=== PATIENT | male | born 1970 | race Caucasian/White ===

== ENCOUNTER 2016-07-23 08:59 | Inpatient (IN) | payer OTHER ==
[2016-07-23 09:37] VITALS: BMI 36.0
--- NOTE | 2016-07-23 10:34 | HP ---
COWS - Scale Resting Pulse: 2= [place] 101-120 Sweatin=Flushed/Facial Moisture Restless Observation: 3= Extraneous Movement Pupil Size: 1= Pupils >than Normal Bone or Joint Aches: 0= None Runny Nose/ Eye Tearin= Runny Nose/Eyes GI Upset > 30mins: 0= None Tremor Observation: 2= Slight Tremor Visible Yawning Observation: 1= 1-2x During Session Anxiety or Irritability: 2=Irritable/Anxious Goose Flesh Skin: 0=Smooth Skin COWS Score: 15 Admission ROS BHS - HPI Chief Complaint: "I want to Detox from Heroin and straighten my life out." Pt. is here to detox from Heroin. Allergies/Adverse Reactions: Allergies Allergy/AdvReac Type Severity Reaction Status Date / Time No Known Allergies Allergy Verified 11/16/15 16:57 History of Present Illness: Pt. is a 45 YO male here to Detox from Heroin. Pt. has had several previous detox admissions at [facility]. Exam Limitations: No Limitations - Ebola screening Have you traveled outside of the country in the last 21 days: No Have you had contact with anyone from an Ebola affected area: No Have you been sick,other than usual withdrawal symptoms: No Do you have a fever: No - Review of Systems Constitutional: Diaphoresis, Loss of Appetite, Malaise, Changes in sleep EENT: reports: Tearing, Nose Congestion, Sinus Pressure Respiratory: reports: Shortness of Breath, Wheezing, Productive cough GI: reports: Poor Appetite : reports: No Symptoms Reported Musculoskeletal: reports: No Symptoms Reported Integumentary: reports: No Symptoms Reported Neuro: reports: Tremors Endocrine: reports: No Symptoms Reported Hematology: reports: No Symptoms Reported Psychiatric: reports: Judgement Intact, Mood/Affect Appropiate, Orientated x3, Agitated, Anxious Other Systems: Reviewed and Negative Patient History - Patient Medical History Hx Anemia: No Hx Asthma: Yes (Uses Inhaler;In process of comleting Prednisone Taper at time of admission.) Hx Chronic Obstructive Pulmonary Disease (COPD): No Hx Cancer: No Hx Cardiac Disorders: No Hx Congestive Heart Failure: No Hx Hypertension: No Hx Hypercholesterolemia: No Hx Pacemaker: No HX Cerebrovascular Accident: No Hx Seizures: No Hx Dementia: No Hx Diabetes: No Hx Gastrointestinal Disorders: No Hx Liver Disease: No Hx Genitourinary Disorders: No Hx Sexually Transmitted Disorders: No Hx Renal Disease (ESRD): No Hx Thyroid Disease: No Hx Human Immunodeficiency Virus (HIV): No (Last Tested: approx. 1 year ago: NEGATIVE.) Hx Hepatitis C: No (Never tested.) Hx Depression: No Hx Suicide Attempt: No (DENIES. PATIENT DENIES CURRENT SI / HI.) Hx Bipolar Disorder: No Hx Schizophrenia: No - Patient Surgical History Past Surgical History: No Hx Neurologic Surgery: No Hx Cataract Extraction: No Hx Cardiac Surgery: No Hx Lung Surgery: No Hx Breast Surgery: No Hx Breast Biopsy: No Hx Abdominal Surgery: No Hx Appendectomy: No Hx Cholecystectomy: No Hx Genitourinary Surgery: No Hx Section: No Hx Orthopedic Surgery: No Hx Hysterectomy: No Anesthesia Reaction: No - PPD History Previous Implant?: Yes Documented Results: Negative w/o proof Implanted On Prior [facility] Admission?: Yes Date: 08/13/15 PPD to be Administered?: Yes - Reproductive History Patient is a Female of Child Bearing Age (11 -55 yrs old): No (PATIENT IS MALE.) - Smoking Cessation Smoking history: Current every day smoker Have you smoked in the past 12 months: Yes Aproximately how many cigarettes per day: 10 Cigars Per Day: 0 Hx Chewing Tobacco Use: No Initiated information on smoking cessation: Yes 'Breaking Loose' booklet given: 07/23/16 (GIVEN ON UNIT.) - Substance & Tx. History Hx Substance Use: Yes Substance Use Type: Cocaine, Heroin Hx Substance Use Treatment: Yes (Previous Detox admissions at [facility].) - Substances Abused Heroin Route: Inhalation Frequency: Daily Amount used: 12 - 14 BAGS Age of first use: 40 Date of Last Use: 07/23/16 Cocaine Route: Inhalation Frequency: 3-6 times per week Amount used: $ 200 - $300 Age of first use: 17 Date of Last Use: 07/21/16 Family Disease History - Family Disease History Family Disease History: Diabetes: Mother, CA: Father (.) Admission Physical Exam BHS - Vital Signs Vital Signs: Vital Signs - 24 hr 07/23/16 09:15 Temperature 95.6 F L Pulse Rate 113 H Respiratory 20 Rate Blood Pressure 145/79 - Physical General Appearance: Yes: Nourished, Appropriately Dressed, Mild Distress, Tremorous, Irritable, Sweating, Anxious HEENTM: Yes: Hearing grossly Normal, Normocephalic, Normal Voice, MAGDIEL, Pharynx Normal Respiratory: Yes: Chest Non-Tender, No Respiratory Distress, Wheezing (DuoNeb treatment given X 1 in Admitting area. Pt. reports relief from treatment.) Neck: Yes: No masses,lesions,Nodules, Supple, Trachea in good position Breast: Yes: Breast Exam Deferred Cardiology: Yes: Regular Rhythm, Regular Rate, S1, S2 Abdominal: Yes: Normal Bowel Sounds, Non Tender, Soft, Protuberent Genitourinary: Yes: Within Normal Limits Back: Yes: Normal Inspection Musculoskeletal: Yes: full range of Motion, Gait Steady Extremities: Yes: Normal Range of Motion, Non-Tender, Tremors Neurological: Yes: Fully Oriented, Alert, Normal Mood/Affect, Normal Response Integumentary: Yes: Normal Color, Warm, Moist Lymphatic: Yes: Within Normal Limits - Diagnostic (1) Acute asthma exacerbation Current Visit: Yes Status: Acute Qualifiers: Asthma severity: mild intermittent Qualified Code(s): J45.21 - Mild intermittent asthma with (acute) exacerbation (2) Nicotine dependence Current Visit: Yes Status: Chronic Qualifiers: Nicotine product type: cigarettes Substance use status: uncomplicated Qualified Code(s): F17.210 - Nicotine dependence, cigarettes, uncomplicated (3) Opioid dependence with withdrawal Current Visit: Yes Status: Acute (4) Cocaine dependence, uncomplicated Current Visit: Yes Status: Acute Cleared for Admission [facility] - Detox or Rehab [facility] Level of Care: Medically Managed (ADVISED PATIENT TO FOLLOW-UP WITH SURGICAL ASSISTANT AFTER DISCHARGE FROM DETOX FOR GENERAL MEDICAL ASSESSMENT AND FOR HISTORY OF ASTHMA.) Detox Regimen/Protocol: Methadone [facility] Breath Alcohol Content Breath Alcohol Content: 0 Urine Drug Screen - Results Drug Screen Negative: No Urine Drug Screen Results: LIZBET-Cocaine, OPI-Opiates, OXY-Oxycodone
[2016-07-23] MEDS ORDERED: diphenhydrAMINE HCL 50 MG CAPSULE PO PRN (11:06)
[2016-07-23] MEDS ORDERED: MAGNESIUM HYDROX 2400MG/30ML ORAL SUSPENSION 30 ML CUP PO PRN (11:06)
[2016-07-23] MEDS ORDERED: hydrOXYzine PAMOATE 50 MG CAPSULE (FP) PO PRN (11:06)
[2016-07-23] MEDS ORDERED: MAG HYDROX/AL HYDROX/SIMETH 30 ML UNIT-DOSE CUP PO PRN (11:06)
[2016-07-23] MEDS ORDERED: MENTHOL/PHENOL 1 EACH UD MM PRN (11:06)
[2016-07-23] MEDS ORDERED: P-EPHED 60MG/TRIPROLIDI 2.5MG TABLET PO PRN (11:06)
[2016-07-23] MEDS ORDERED: NICOTINE POLACRILEX 2 MG GUM BUC PRN (11:06)
[2016-07-23] MEDS ORDERED: MAGNESIUM CITRATE 300 ML BOTTLE PO PRN (11:06)
[2016-07-23] MEDS ORDERED: IBUPROFEN 400 MG TABLET (FP) PO PRN (11:06)
[2016-07-23] MEDS ORDERED: guaiFENesin/D-METHORPHAN HB 10 ML UNIT-DOSE CUPS PO PRN (11:06)
[2016-07-23] MEDS ORDERED: LOPERAMIDE HCL 2 MG CAPSULE PO PRN (11:06)
[2016-07-23] MEDS ORDERED: ACETAMINOPHEN 325 MG TABLET (FP) PO PRN (11:06)
[2016-07-23] MEDS ORDERED: METHADONE HCL 10 MG TABLET (FOR DETOX USE ONLY) PO ONE ×2 (13:45→23:00)
[2016-07-23] MEDS: predniSONE 20 MG TABLET (UD) PO SCH (13:51)
[2016-07-23] MEDS ORDERED: ALBUTEROL SO4 6.7 GM HFA INHALER IH PRN (13:53)
[2016-07-23] MEDS ORDERED: ALBUTEROL SO4 2.5/IPRATROPIUM 0.5 INH SOL 3 ML VIAL.NEB. NEB SCH (14:00)
[2016-07-23] MEDS: diazePAM 5 MG TABLET PO PRN ×2 (14:03→22:43)
[2016-07-23] MEDS: NICOTINE 21 MG/24 HOURS TOPICAL PATCH TD SCH (14:05)
--- NOTE | 2016-07-23 17:17 | EKG ---
Test Reason : Blood Pressure : / mmHG Vent. Rate : 094 BPM Atrial Rate : 094 BPM P-R Int : 168 ms QRS Dur : 082 ms QT Int : 354 ms P-R-T Axes : 067 048 054 degrees QTc Int : 442 ms SINUS RHYTHM WITH FUSION COMPLEXES OTHERWISE NORMAL ECG WHEN COMPARED WITH ECG OF 16-NOV-2015 17:25, FUSION COMPLEXES ARE NOW PRESENT Confirmed by LUIS MIGUEL OLIVERA MD ([id number]) on 07/23/2016 5:17:10 PM Referred By: Confirmed By:LUIS MIGUEL OLIVERA MD
[2016-07-23 20:05] LABS: URINE APPEARANCE CLEAR; URINE BILIRUBIN NEGATIVE (NEGATIVE); URINE BLOOD NEGATIVE (NEGATIVE); URINE COLOR YELLOW; URINE GLUCOSE (UA) NEGATIVE (NEGATIVE); URINE KETONE TRACE (NEGATIVE); URINE NITRITE NEGATIVE (NEGATIVE); URINE UROBILINOGEN NEGATIVE E.U./dl (0.2-1.0)
[2016-07-23 20:08] LABS: URINE LEUK ESTERASE TRACE (NEGATIVE); URINE PROTEIN 1+ (NEGATIVE)
[2016-07-23 20:10] LABS: URINE BACTERIA MANY /hpf (NONE SEEN); URINE MUCUS MANY; URINE RBC 34 /hpf (0-3); URINE WBC 53 /hpf (3-5); YEAST RARE
[2016-07-23] MEDS: THIAMINE HCL 100 MG TABLET (FP) PO SCH (22:43)
[2016-07-24] MEDS ORDERED: ALBUTEROL SO4 2.5/IPRATROPIUM 0.5 INH SOL 3 ML VIAL.NEB. NEB PRN (04:57)
[2016-07-24] MEDS ORDERED: predniSONE 20 MG TABLET (UD) PO ONE (08:03)
--- NOTE | 2016-07-24 08:09 | PN ---
BHS COWS - Scale Resting Pulse: 0= [place] 80 or Below Sweatin=Flushed/Facial Moisture Restless Observation: 3= Extraneous Movement Pupil Size: 2= Moderately Dilated Bone or Joint Aches: 2= Severe Diffuse Aches Runny Nose/ Eye Tearin= Runny Nose/Eyes GI Upset > 30mins: 3= Vomiting/Diarrhea Tremor Observation of Outstretched Hands: 2= Slight Tremor Visible Yawning Observation: 1= 1-2x During Session Anxiety or Irritability: 2=Irritable/Anxious Goose Flesh Skin: 0=Smooth Skin COWS Score: 19 BHS Progress Note (SOAP) Subjective: alert,irritable,anxious,interrupted sleep,tremor,pain in the body and back, expiratiory wheezing Objective: 07/24/16 08:06 Vital Signs Temperature 98.1 F 07/23/16 21:51 Pulse Rate 98 H 07/23/16 21:51 Respiratory Rate 20 07/24/16 03:30 Blood Pressure 102/77 07/23/16 21:51 O2 Sat by Pulse Oximetry (%) 07/24/16 08:07 ekg nsr noc chest pain sob acute exacerbation of asthma Assessment: 07/24/16 08:08 duoneb nebulizer,prednisone 40 mg po now then daily,continue detox,close monitoring
[2016-07-24] MEDS ORDERED: METHADONE HCL 10 MG TABLET (FOR DETOX USE ONLY) PO ONE (10:00)
[2016-07-24] MEDS: NICOTINE 21 MG/24 HOURS TOPICAL PATCH TD SCH (10:06)
[2016-07-24] MEDS: predniSONE 20 MG TABLET (UD) PO SCH (10:07)
[2016-07-24] MEDS: diazePAM 5 MG TABLET PO PRN ×2 (10:07→22:50)
[2016-07-24] MEDS: PRENATAL VITAMINS W/ FOLIC ACID TABLET (FP) PO SCH (10:07)
[2016-07-24] MEDS: ALBUTEROL SO4 2.5/IPRATROPIUM 0.5 INH SOL 3 ML VIAL.NEB. NEB PRN (19:23)
[2016-07-24] MEDS: THIAMINE HCL 100 MG TABLET (FP) PO SCH (22:47)
[2016-07-25] MEDS: ALBUTEROL SO4 2.5/IPRATROPIUM 0.5 INH SOL 3 ML VIAL.NEB. NEB PRN (05:00)
[2016-07-25] MEDS ORDERED: METHADONE HCL 5 MG TABLET (FOR DETOX USE ONLY) PO ONE (10:00)
--- NOTE | 2016-07-25 10:03 | PN ---
BHS COWS - Scale Resting Pulse: 2= [place] 101-120 Sweatin= Chills/Flushing Restless Observation: 3= Extraneous Movement Pupil Size: 1= Pupils >than Normal Bone or Joint Aches: 2= Severe Diffuse Aches Runny Nose/ Eye Tearin= Runny Nose/Eyes GI Upset > 30mins: 3= Vomiting/Diarrhea Tremor Observation of Outstretched Hands: 2= Slight Tremor Visible Yawning Observation: 1= 1-2x During Session Anxiety or Irritability: 2=Irritable/Anxious Goose Flesh Skin: 0=Smooth Skin COWS Score: 19 S Progress Note (SOAP) Subjective: ALERT,IRRITABLE,ANXIOUS,INTERRUPTED SLEEP,TREMOR,PAIN IN THE BODY AND BACK Objective: 07/25/16 09:59 Vital Signs Temperature 97 F L 07/25/16 09:46 Pulse Rate 101 H 07/25/16 09:46 Respiratory Rate 16 07/25/16 09:46 Blood Pressure 148/75 07/25/16 09:46 O2 Sat by Pulse Oximetry (%) Laboratory Last Values Urine Color Yellow 07/23/16 19:53 Urine Appearance Clear 07/23/16 19:53 Urine pH 5.0 (5.0-8.0) 07/23/16 19:53 Ur Specific [place] 1.027 (1.001-1.035) 07/23/16 19:53 Urine Protein 1+ (NEGATIVE) H 07/23/16 19:53 Urine Glucose (UA) Negative (NEGATIVE) 07/23/16 19:53 Urine Ketones Trace (NEGATIVE) H 07/23/16 19:53 Urine Blood Negative (NEGATIVE) 07/23/16 19:53 Urine Nitrite Negative (NEGATIVE) 07/23/16 19:53 Urine Bilirubin Negative (NEGATIVE) 07/23/16 19:53 Urine Urobilinogen Negative E.U./dl (0.2-1.0) 07/23/16 19:53 Ur Leukocyte Esterase Trace (NEGATIVE) H 07/23/16 19:53 Urine RBC 34 /hpf (0-3) 07/23/16 19:53 Urine WBC 53 /hpf (3-5) 07/23/16 19:53 Urine Bacteria Many /hpf (NONE SEEN) 07/23/16 19:53 Urine Mucus Many 07/23/16 19:53 Urine Yeast Rare 07/23/16 19:53 07/25/16 10:00 LABS PENDING Assessment: 07/25/16 10:01 WITHDRAWAL SYMPTOM Plan: CONTINUE DETOX,ENCOURAGE ORAL FLUID,REPEAT UA TODAY,CONTINUE DETOX,ALBUTEROL INHALER AND DUONEB NEBULIZER, CONTINUE DETOX
[2016-07-25] MEDS: PRENATAL VITAMINS W/ FOLIC ACID TABLET (FP) PO SCH (10:54)
[2016-07-25] MEDS: diazePAM 5 MG TABLET PO PRN (10:54)
[2016-07-25] MEDS: NICOTINE 21 MG/24 HOURS TOPICAL PATCH TD SCH (10:54)
[2016-07-25] MEDS: predniSONE 20 MG TABLET (UD) PO SCH (13:44)
[2016-07-25 17:40] VITALS: BP 137/90; PULSE 89; TEMP 98.4
[2016-07-25 17:40] LABS: URINE APPEARANCE CLEAR; URINE BILIRUBIN NEGATIVE (NEGATIVE); URINE BLOOD NEGATIVE (NEGATIVE); URINE COLOR YELLOW; URINE GLUCOSE (UA) NEGATIVE (NEGATIVE); URINE KETONE NEGATIVE (NEGATIVE); URINE LEUK ESTERASE NEGATIVE (NEGATIVE); URINE NITRITE NEGATIVE (NEGATIVE); URINE PROTEIN NEGATIVE (NEGATIVE); URINE UROBILINOGEN NEGATIVE E.U./dl (0.2-1.0)
--- NOTE | 2016-07-25 18:52 | DS ---
[id number] Present History: Cocaine Dependence, Opioid Dependence Additional Comments: insists to leave the unit refuses to wait face to face with the provider aftercare as per arranged by the counselor e prescrpition sent Pertinent Past History: asthma - Physical Exam Results Vital Signs: Vital Signs Temperature 98.4 F 07/25/16 17:39 Pulse Rate 89 07/25/16 17:39 Respiratory Rate 18 07/25/16 17:39 Blood Pressure 137/90 07/25/16 17:39 O2 Sat by Pulse Oximetry (%) Pertinent Admission Physical Exam Findings: withdrawal sx Laboratory Last Values Urine Color Yellow 07/25/16 17:26 Urine Appearance Clear 07/25/16 17:26 Urine pH 9.0 (5.0-8.0) H D 07/25/16 17:26 Ur Specific [place] 1.018 (1.001-1.035) 07/25/16 17:26 Urine Protein Negative (NEGATIVE) 07/25/16 17:26 Urine Glucose (UA) Negative (NEGATIVE) 07/25/16 17:26 Urine Ketones Negative (NEGATIVE) 07/25/16 17:26 Urine Blood Negative (NEGATIVE) 07/25/16 17:26 Urine Nitrite Negative (NEGATIVE) 07/25/16 17:26 Urine Bilirubin Negative (NEGATIVE) 07/25/16 17:26 Urine Urobilinogen Negative E.U./dl (0.2-1.0) 07/25/16 17:26 Ur Leukocyte Esterase Negative (NEGATIVE) 07/25/16 17:26 Urine RBC 34 /hpf (0-3) 07/23/16 19:53 Urine WBC 53 /hpf (3-5) 07/23/16 19:53 Urine Bacteria Many /hpf (NONE SEEN) 07/23/16 19:53 Urine Mucus Many 07/23/16 19:53 Urine Yeast Rare 07/23/16 19:53 lab noted - Treatment Hospital Course: Detox Protocol Followed, Responded well - Medication Discharge Medications: Ambulatory Orders Albuterol Sulfate [Proventil HFA Inhaler -] 1 - 2 inh PO QID #1 inhaler Prednisone 5 mg PO AM 07/23/16 - Diagnosis (1) Opioid dependence with withdrawal Status: Acute (2) Nicotine dependence Status: Acute Qualifiers: Nicotine product type: cigarettes Substance use status: in withdrawal Qualified Code(s): F17.213 - Nicotine dependence, cigarettes, with withdrawal (3) Asthma Status: Acute Qualifiers: Asthma severity: mild intermittent Asthma complication type: uncomplicated Qualified Code(s): J45.20 - Mild intermittent asthma, uncomplicated - AMA Did Patient Leave Against Medical Advice: Yes
[2016-07-26] MEDS ORDERED: METHADONE HCL 5 MG TABLET (FOR DETOX USE ONLY) PO ONE (10:00)
[2016-07-27] MEDS ORDERED: METHADONE HCL 10 MG TABLET (FOR DETOX USE ONLY) PO ONE (10:00)
[2016-07-28] MEDS ORDERED: METHADONE HCL 5 MG TABLET (FOR DETOX USE ONLY) PO ONE (06:00)
== END 2016-07-25 18:35 | disposition left against medical advice (07) | DRG 770 ==
LOC: YASAS 08:59 → Y6N 11:37
PROVIDERS: ADMIT Internal Medicine; ATTEND Internal Medicine Addiction Medicine
PROC: HZ2ZZZZ Detoxification Services for Substance Abuse Treatment (ICD-10-PCS; principal; 2016-07-25)
DX: F11.23 Opioid dependence with withdrawal (principal); F17.213 Nicotine dependence, cigarettes, with withdrawal; J45.20 Mild intermittent asthma, uncomplicated
CPT/HCPCS: 81003; 81015; 93005; 93010; 94640

== ENCOUNTER 2016-07-29 01:33 | Emergency (ER) | payer OTHER ==
[2016-07-29] MEDS ORDERED: MAGNESIUM SULF 50% (8.12 MEQ/2 ML-1 GM VIAL) ONE (01:37)
[2016-07-29] MEDS ORDERED: TERBUTALINE SULFATE 1 MG/1 ML VIAL SQ ONE ×3 (01:38→02:45)
[2016-07-29] MEDS ORDERED: MONTELUKAST NA 10 MG TABLET PO ONE (01:39)
[2016-07-29] MEDS ORDERED: MAGNESIUM SULF 50% (8.12 MEQ/2 ML-1 GM VIAL) IVPB ONE (01:39)
[2016-07-29 01:40] VITALS: BP 115/79; PULSE 79; TEMP 98.6; BMI 33.4
[2016-07-29] MEDS ORDERED: MONTELUKAST NA 10 MG TABLET ONE (01:52)
--- NOTE | 2016-07-29 02:32 | PDOC ---
History of Present Illness - General History Source: Patient Exam Limitations: No Limitations - History of Present Illness Initial Comments: 07/29/16 02:33 The patient is a 45 year old male with past medical history of asthma who arrives to the ED via EMS for asthma exacerbation for the past three days. As per patient, he was seen three days ago for shortness of breath and mild chest pain at [facility] in which he was prescribed prednisone. The patient states that since then his symptoms have persisted despite of taking his prescribed prednisone and albuterol pump. In the ambulance, the patient received a breathing treatment and dexamethasone. He denies any recent illness, fever, chills, nausea, vomiting, diarrhea, or urinary symptoms. PCP:Eric Yanez <Claritza Womack - Last Filed: 07/29/16 02:33> <Janet Eastman - Last Filed: 07/29/16 23:37> - General Chief Complaint: Asthma Stated Complaint: ASTHMA Time Seen by Provider: 07/29/16 01:38 Past History <Claritza Womack - Last Filed: 07/29/16 02:33> - Past Medical History Anemia: No Asthma: Yes Cancer: No Cardiac Disorders: No CVA: No COPD: No CHF: No Dementia: No Diabetes: No GI Disorders: No Disorders: No HTN: No Hypercholesterolemia: No Kidney Stones: No Liver Disease: No Suicide Attempt (Hx): No (DENIES. PATIENT DENIES CURRENT SI / HI.) Seizures: No Thyroid Disease: No - Surgical History Abdominal Surgery: No Appendectomy: No Cardiac Surgery: No Cholecystectomy: No Lung Surgery: No Neurologic Surgery: No Orthopedic Surgery: No - Reproductive History Testicular Surgery: No - Immunization History Td Vaccination: Yes Immunization Up to Date: Yes - Psycho/Social/Smoking Cessation Hx Anxiety: No Suicidal Ideation: No Smoking Status: Yes Smoking History: Current every day smoker Years of Tobacco Use: 40 Have you smoked in the past 12 months: Yes Number of Cigarettes Smoked Daily: 10 If you are a former smoker, when did you quit?: 4 MO AGO Cigars Per Day: 0 Information on smoking cessation initiated: No 'Breaking Loose' booklet given: 07/23/16 (GIVEN ON UNIT.) Hx Alcohol Use: No Drug/Substance Use Hx: No Substance Use Type: None Hx Substance Use Treatment: Yes (Previous Detox admissions at [facility].) <Eastman,Janet - Last Filed: 07/29/16 23:37> - Past Medical History Allergies/Adverse Reactions: Allergies Allergy/AdvReac Type Severity Reaction Status Date / Time No Known Allergies Allergy Verified 07/29/16 01:40 Home Medications: Ambulatory Orders Albuterol Sulfate [Proventil HFA Inhaler -] 1 - 2 inh PO QID #1 inhaler Prednisone 5 mg PO AM 07/23/16 Albuterol Sulfate Inhaler - [Ventolin HFA Inhaler -] 1 - 2 inh PO QID #1 inhaler 07/29/16 Montelukast Na [Singulair -] 10 mg PO HS #30 tablet 07/29/16 Review of Systems - Review of Systems Able to Perform ROS?: Yes Comments:: 07/29/16 02:34 GENERAL/CONSTITUTIONAL: No fever or chills. No weakness. HEAD, EYES, EARS, NOSE AND THROAT: No change in vision. No ear pain or discharge. No sore throat. CARDIOVASCULAR: No chest pain or shortness of breath. RESPIRATORY: Present: cough, shortness of breath No wheezing, or hemoptysis. GASTROINTESTINAL: No nausea, vomiting, diarrhea or constipation. GENITOURINARY: No dysuria, frequency, or change in urination. MUSCULOSKELETAL: No joint or muscle swelling or pain. No neck or back pain. SKIN: No rash NEUROLOGIC: No headache, vertigo, loss of consciousness, or change in strength/ sensation. ENDOCRINE: No increased thirst. No abnormal weight change. HEMATOLOGIC/LYMPHATIC: No anemia, easy bleeding, or history of blood clots. ALLERGIC/IMMUNOLOGIC: No hives or skin allergy. All Other Systems: Reviewed and Negative <Claritza Womack - Last Filed: 07/29/16 02:33> *Physical Exam - Vital Signs Last Vital Signs Temp Pulse Resp BP Pulse Ox 98.6 F 79 22 115/79 97 07/29/16 01:35 07/29/16 01:35 07/29/16 01:35 07/29/16 01:35 07/29/16 01:35 - Physical Exam Comments: 07/29/16 02:34 GENERAL: Awake, alert, and fully oriented, in no acute distress HEAD: No signs of trauma EYES: PERRLA, EOMI, sclera anicteric, conjunctiva clear ENT: Auricles normal inspection, hearing grossly normal, nares patent, oropharynx clear without exudates. Moist mucosa NECK: Normal ROM, supple, no lymphadenopathy, JVD, or masses LUNGS: Bilateral wheezing throughout. No crackles HEART: Regular rate and rhythm, normal S1 and S2, no murmurs, rubs or gallops ABDOMEN: Soft, nontender, normoactive bowel sounds. No guarding, no rebound. No masses EXTREMITIES: Normal range of motion, no edema. No clubbing or cyanosis. No cords, erythema, or tenderness NEUROLOGICAL: Cranial nerves II through XII grossly intact. Normal speech, normal gait SKIN: Warm, Dry, normal turgor, no rashes or lesions noted. <Claritza Womack - Last Filed: 07/29/16 02:33> - Vital Signs Last Vital Signs Temp Pulse Resp BP Pulse Ox 98.6 F 79 22 115/79 97 07/29/16 01:35 07/29/16 01:35 07/29/16 01:35 07/29/16 01:35 07/29/16 01:35 <Janet Eastman - Last Filed: 07/29/16 23:37> ED Treatment Course - Medications Given in the ED: ED Medications Discontinued Medications Generic Name Dose Route Start Last Admin Trade Name Freq PRN Reason Stop Dose Admin Magnesium Sulfate 2 gm 07/29/16 01:39 07/29/16 01:49 Magnesium Sulfate IVPB 07/29/16 01:40 2 gm ONCE ONE Administration Montelukast Sodium 10 mg 07/29/16 01:39 07/29/16 01:54 Singulair - PO 07/29/16 01:40 10 mg ONCE ONE Administration Terbutaline Sulfate 0.25 mg 07/29/16 01:38 07/29/16 01:49 Brethine Injection - SQ 07/29/16 01:39 0.25 mg ONCE ONE Administration <Claritza Womack - Last Filed: 07/29/16 02:33> - Medications Given in the ED: ED Medications Discontinued Medications Generic Name Dose Route Start Last Admin Trade Name Freq PRN Reason Stop Dose Admin Magnesium Sulfate 2 gm 07/29/16 01:39 07/29/16 01:49 Magnesium Sulfate IVPB 07/29/16 01:40 2 gm ONCE ONE Administration Montelukast Sodium 10 mg 07/29/16 01:39 07/29/16 01:54 Singulair - PO 07/29/16 01:40 10 mg ONCE ONE Administration Terbutaline Sulfate 0.25 mg 07/29/16 01:38 07/29/16 01:49 Brethine Injection - SQ 07/29/16 01:39 0.25 mg ONCE ONE Administration <Janet Eastman - Last Filed: 07/29/16 23:37> Medical Decision Making - Medical Decision Making 07/29/16 23:37 Pt comes with asthma exacerbation. He was treated with terbutaline and mag in the ER, as the EMS had already given him steroids and duonebs. Pt improved throughout the night. D/C in the AM. <Janet Eastman - Last Filed: 07/29/16 23:37> *DC/Admit/Observation/Transfer - Attestations Scribe Attestion: 07/29/16 02:35 Documentation prepared by Claritza Womack, acting as medical transcription for Janet Eastman MD. <Claritza Womack - Last Filed: 07/29/16 02:33> - Discharge Dispostion Admit: No <Janet Eastman - Last Filed: 07/29/16 23:37> Diagnosis at time of Disposition: Asthma exacerbation - Discharge Dispostion Disposition: HOME Condition at time of disposition: Improved - Prescriptions Prescriptions: Montelukast Na [Singulair -] 10 mg PO HS #30 tablet Albuterol Sulfate Inhaler - [Ventolin HFA Inhaler -] 1 - 2 inh PO QID #1 inhaler - Referrals Referrals: Eric Yanez MD [Primary Care Provider] -
== END 2016-07-29 06:53 | disposition home or self-care (01) ==
LOC: SUPCPDRO 01:33 → JER 01:33
PROC: 3E033GC Introduction of Other Therapeutic Substance into Peripheral Vein, Percutaneous Approach (ICD-10-PCS; principal; 2016-07-29)
PROC: 3E023GC Introduction of Other Therapeutic Substance into Muscle, Percutaneous Approach (ICD-10-PCS; 2016-07-29)
PROC: 3E023GC Introduction of Other Therapeutic Substance into Muscle, Percutaneous Approach (ICD-10-PCS; 2016-07-29)
DX: J45.901 Unspecified asthma with (acute) exacerbation (principal); F17.210 Nicotine dependence, cigarettes, uncomplicated
CPT/HCPCS: 71020-TC; 96372; 96374; 99282-25

== ENCOUNTER 2016-08-08 11:06 | Inpatient (IN) | payer OTHER ==
[2016-08-08 11:12] VITALS: BMI 31.9
--- NOTE | 2016-08-08 11:21 | PDOC ---
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 He typically gets asthma exacerbation after he uses heroin. he states that he last used this morning, then developed SOB shortly after. Denies f/c, productive cough. He has had dry cough 3 days. +Multiple instances of similar symptoms in the past. - Physicial Exam PE: GENERAL: Awake, alert, and fully oriented, in no acute distress HEAD: No signs of trauma EYES: PERRLA, EOMI, sclera anicteric, conjunctiva clear ENT: Auricles normal inspection, hearing grossly normal, nares patent, oropharynx clear without exudates. Moist mucosa NECK: Normal ROM, supple, no lymphadenopathy, JVD, or masses LUNGS: +Moderate tachypnea. Diffuse exp wheezes B/L. Able to speak full sentences. HEART: Regular rate and rhythm, normal S1 and S2, no murmurs, rubs or gallops ABDOMEN: Soft, nontender, normoactive bowel sounds. No guarding, no rebound. No masses EXTREMITIES: Normal range of motion, no edema. No clubbing or cyanosis. No cords, erythema, or tenderness NEUROLOGICAL: Cranial nerves II through XII grossly intact. Normal speech, normal gait SKIN: Warm, Dry, normal turgor, no rashes or lesions noted. - Medical Decision Making Pt with history severe asthma exacerbations following substance use. Will give duonebs, solu-medrol, likely admit.
--- NOTE | 2016-08-08 11:27 | PDOC ---
History of Present Illness - General Chief Complaint: Shortness of Breath Stated Complaint: SOB Time Seen by Provider: 08/08/16 11:16 History Source: Patient Exam Limitations: No Limitations - History of Present Illness Initial Comments: 44 year old male with a significant past medical history of asthma, nicotine addiction, heroin abuse with daily use with multiple detox (last detox completed on 07/25) brought via EMS due to shortness of breath. Patient stated that he used heroin this morning and became short of breath shortly after. He also has cough x 3 days. Denies fever, chills, n/v, chest pain, urinary or bowel symptoms. Past History - Past Medical History Allergies/Adverse Reactions: Allergies Allergy/AdvReac Type Severity Reaction Status Date / Time No Known Allergies Allergy Verified 08/08/16 11:12 Home Medications: Ambulatory Orders Albuterol Sulfate [Proventil HFA Inhaler -] 1 - 2 inh PO QID #1 inhaler Prednisone 5 mg PO AM 07/23/16 Albuterol Sulfate Inhaler - [Ventolin HFA Inhaler -] 1 - 2 inh PO QID #1 inhaler 07/29/16 Montelukast Na [Singulair -] 10 mg PO HS #30 tablet 07/29/16 Anemia: No Asthma: Yes Cancer: No Cardiac Disorders: No CVA: No COPD: No CHF: No Dementia: No Diabetes: No GI Disorders: No Disorders: No HTN: No Hypercholesterolemia: No Kidney Stones: No Liver Disease: No Suicide Attempt (Hx): No (DENIES. PATIENT DENIES CURRENT SI / HI.) Seizures: No Thyroid Disease: No - Surgical History Abdominal Surgery: No Appendectomy: No Cardiac Surgery: No Cholecystectomy: No Lung Surgery: No Neurologic Surgery: No Orthopedic Surgery: No - Reproductive History Testicular Surgery: No - Immunization History Td Vaccination: Yes Immunization Up to Date: Yes - Psycho/Social/Smoking Cessation Hx Anxiety: No Suicidal Ideation: No Smoking Status: Yes Smoking History: Former smoker Years of Tobacco Use: 40 Have you smoked in the past 12 months: Yes Number of Cigarettes Smoked Daily: 10 If you are a former smoker, when did you quit?: 4 MO AGO Cigars Per Day: 0 Information on smoking cessation initiated: No 'Breaking Loose' booklet given: 07/23/16 Hx Alcohol Use: No Drug/Substance Use Hx: No Substance Use Type: None Hx Substance Use Treatment: Yes (Previous Detox admissions at [facility] Respiratory Specific PMHX - Complaint Specific PMHX TB (Tuberculosis): No Review of Systems - Review of Systems Able to Perform ROS?: Yes Is the patient limited Greek proficient: No Constitutional: No: Chills, Fever, Weakness HEENTM: No: Blurred Vision Respiratory: Yes: Cough, Shortness of Breath Cardiac (ROS): No: Chest Pain ABD/GI: No: Abdominal Distended, Nausea, Vomiting : No: Dysuria Neurological: No: Headache, Numbness Psychiatric: Yes: Depression *Physical Exam - Vital Signs Last Vital Signs Temp Pulse Resp BP Pulse Ox 98.4 F 121 H 22 148/78 93 L 08/08/16 11:08 08/08/16 11:08 08/08/16 11:08 08/08/16 11:08 08/08/16 11:08 - Physical Exam General Appearance: Yes: Moderate Distress Respiratory/Chest: positive: Respiratory Distress, Wheezing Cardiovascular: positive: Regular Rhythm, S1, S2, Tachycardia. negative: Murmur ED Treatment Course - LABORATORY CBC & Chemistry Diagram: 08/08/16 11:41 08/08/16 11:41 Medical Decision Making - Medical Decision Making 08/08/16 12:42 Patient's lab work is remarkable for elevated WBC 22 and his clinical presentation is worrisome; he's tachycardic, diaphoretic and c/o abd discomfort. For withdrawl precaution, he should be admitted. Patient also wants detox. He may be transitioned from regular floor to methadone detox during admission. 08/08/16 12:[address] Diaz, will admit the patient to telemetry. *DC/Admit/Observation/Transfer Diagnosis at time of Disposition: Heroin withdrawal Upper respiratory infection Qualifiers: URI type: unspecified URI Qualified Code(s): J06.9 - Acute upper respiratory infection, unspecified - Discharge Dispostion Condition at time of disposition: Stable Admit: Yes - Referrals Referrals: Eric Yanez MD [Primary Care Provider] -
[2016-08-08] MEDS: ALBUTEROL SO4 2.5/IPRATROPIUM 0.5 INH SOL 3 ML VIAL.NEB. NEB SCH ×4 (11:51→12:59)
[2016-08-08] MEDS ORDERED: AZITHROMYCIN IVPB 500 MG in DEXTROSE 5%-WATER - 250 ML IVPB ONE (11:52)
[2016-08-08] MEDS ORDERED: methylPREDNISolone NA SUCC 125 MG/2 ML VIAL IVPB ONE (11:53)
[2016-08-08] MEDS ORDERED: methylPREDNISolone NA SUCC 125 MG/2 ML VIAL ONE (11:54)
[2016-08-08] MEDS ORDERED: ALBUTEROL SO4 2.5/IPRATROPIUM 0.5 INH SOL 3 ML VIAL.NEB. NEB ONE (11:54)
[2016-08-08 12:10] LABS: MCHC 32.5 g/dl (32.0-35.9); MEAN CELL VOLUME 79.8 fl (80-96); PLATELET COUNT 405 K/MM3 (134-434); RDW 14.8 % (11.9-15.9); WHITE BLOOD COUNT 21.9 K/mm3 (4.0-10.0)
[2016-08-08 12:36] LABS: ALBUMIN 3.2 g/dl (3.4-5.0); ANION GAP 12 (8-16); CALCIUM 8.7 mg/dL (8.5-10.1); CO2 24 mmol/L (21-32); COCKROFT - GAULT 158.75; CREATININE 0.8 mg/dL (0.7-1.3); GLUCOSE,RANDOM 111 mg/dL (74-106); SGOT/AST 23 U/L (15-37); SGPT/ALT 33 U/L (12-78)
[2016-08-08 12:38] LABS: ALK PHOS 102 U/L (45-117); BILIRUBIN,TOTAL 0.6 mg/dL (0.2-1.0); TOT PROT 7.1 g/dl (6.4-8.2)
[2016-08-08] MEDS ORDERED: AZITHROMYCIN IVPB 250 ML IVPB ONE (12:54)
[2016-08-08] MEDS ORDERED: CEFTRIAXONE 1 GM in DEXTROSE 5%-WATER - 50 ML IVPB ONE (12:54)
[2016-08-08] MEDS ORDERED: CEFTRIAXONE 50 ML ONE (13:02)
[2016-08-08 13:18] LABS: PLATELET ESTIMATE ADEQUATE (NORMAL)
[2016-08-08 14:00] LABS: TROPONIN I < 0.02 ng/ml (0.00-0.05)
--- NOTE | 2016-08-08 15:17 | CONSULT ---
[id number],MD - History History of Present Illness: 45 y/o man known to me from previous admissions & detoxes came to ED because of severe SOB & Wheezing.Pt. was told on many occasions that heroin will exacerbate asthma. - History Source History Provided By: Patient, Medical Record - Alcohol/Substance Use Hx Alcohol Use: No - Current Drug/Alcohol Use Heroin Route: Inhalation Frequency: Daily Amount used: 3 bags Age of first use: 40 Date of Last Use: 08/08/16 - Past Medical History Pulmonary: Yes: Asthma Psych: Yes: Addictions (heroin) - Past Surgical History Past Surgical History: Yes: None - Significant Medical Findings: Laboratory Tests 08/08/16 08/08/16 08/08/16 11:41 11:41 12:53 WBC 21.9 H D RBC 5.02 Hgb 13.0 D Hct 40.0 MCV 79.8 L MCHC 32.5 RDW 14.8 Plt Count 405 D MPV 8.0 Neutrophils % 84.0 H Lymphocytes % 8.0 Monocytes % 3.0 L Eosinophils % 4.0 Basophils % 1.0 Differential Comment Manual diff done Platelet Estimate Adequate Sodium 135 L Potassium 4.3 Chloride 99 Carbon Dioxide 24 D Anion Gap 12 BUN 15 D Creatinine 0.8 Creat Clearance w eGFR > 60 Random Glucose 111 H Lactic Acid Calcium 8.7 Total Bilirubin 0.6 D AST 23 D ALT 33 D Alkaline Phosphatase 102 D Creatine Kinase 184 D CK-MB (CK-2) 1.691 CK-MB (CK-2) Rel Index Troponin I < 0.02 Total Protein 7.1 Albumin 3.2 L 08/08/16 08/08/16 12:53 12:53 WBC RBC Hgb Hct MCV MCHC RDW Plt Count MPV Neutrophils % Lymphocytes % Monocytes % Eosinophils % Basophils % Differential Comment Platelet Estimate Sodium Potassium Chloride Carbon Dioxide Anion Gap BUN Creatinine Creat Clearance w eGFR Random Glucose Lactic Acid 1.205 Calcium Total Bilirubin AST ALT Alkaline Phosphatase Creatine Kinase CK-MB (CK-2) CK-MB (CK-2) Rel Index Cancelled Troponin I Total Protein Albumin U/Tox is pending COWS - Scale Resting Pulse: 4= PA > 121 Sweatin=Flushed/Facial Moisture Restless Observation: 1= Difficult to Sit Still Pupil Size: 2= Moderately Dilated Bone or Joint Aches: 1= Mild Discomfort Runny Nose/ Eye Tearin= Runny Nose/Eyes GI Upset > 30mins: 2= Nausea/Diarrhea Tremor Observation: 2= Slight Tremor Visible Yawning Observation: 1= 1-2x During Session Anxiety or Irritability: 2=Irritable/Anxious Goose Flesh Skin: 0=Smooth Skin COWS Score: 19 Assessment Plan - Diagnosis (1) Opioid dependence with withdrawal Status: Acute - Medication Detox Regimen/Protocol: Methadone
[2016-08-08 18:07] LABS: URINE MARIJUANA THC NEGATIVE ng/ml (CUTOFF=50)
[2016-08-08] MEDS ORDERED: METHADONE HCL 10 MG TABLET PO ONE (18:30)
[2016-08-08] MEDS: MONTELUKAST NA 10 MG TABLET PO SCH (21:05)
[2016-08-08] MEDS: guaiFENesin/D-METHORPHAN HB 10 ML UNIT-DOSE CUPS PO PRN (21:05)
[2016-08-08] MEDS: DEXTROSE 5%-0.45% SALINE 1,000 ML IV SCH (21:16)
[2016-08-08 22:43] LABS: TROPONIN I < 0.02 ng/ml (0.00-0.05)
[2016-08-08] MEDS: ALBUTEROL SO4 2.5/IPRATROPIUM 0.5 INH SOL 3 ML VIAL.NEB. NEB PRN (23:10)
[2016-08-09] MEDS: methylPREDNISolone NA SUCC 40 MG/1 ML VIAL IVPB SCH ×3 (01:16→18:09)
[2016-08-09] MEDS ORDERED: ONDANSETRON 4 MG/2 ML VIAL IVPB PRN (03:05)
[2016-08-09] MEDS: guaiFENesin/D-METHORPHAN HB 10 ML UNIT-DOSE CUPS PO PRN ×3 (05:22→21:26)
[2016-08-09] MEDS: ALBUTEROL SO4 2.5/IPRATROPIUM 0.5 INH SOL 3 ML VIAL.NEB. NEB PRN ×2 (06:48→23:15)
[2016-08-09] MEDS ORDERED: diazePAM 5 MG TABLET PO PRN (09:37)
[2016-08-09] MEDS ORDERED: CEFTRIAXONE 50 ML IVPB SCH (10:00)
[2016-08-09] MEDS ORDERED: AZITHROMYCIN IVPB 250 MG in DEXTROSE 5%-WATER - 250 ML IVPB SCH (10:00)
[2016-08-09] MEDS ORDERED: METHADONE HCL 10 MG TABLET (FOR DETOX USE ONLY) PO ONE (10:00)
[2016-08-09] MEDS ORDERED: METHADONE HCL 10 MG TABLET ONE (10:14)
[2016-08-09] MEDS: HEPARIN NA (PORCINE) 5,000 UNITS/ML 1ML VIAL SQ SCH ×2 (10:17→21:26)
[2016-08-09] MEDS: DEXTROSE 5%-0.45% SALINE 1,000 ML IV SCH ×2 (10:25→21:27)
--- NOTE | 2016-08-09 15:01 | HP ---
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 He typically gets asthma exacerbation after he uses heroin. he states that he last used this morning, then developed SOB shortly after. Denies f/c, productive cough. He has had dry cough 3 days. +Multiple instances of similar symptoms in the past. - Past Medical History Pulmonary: Yes: Asthma Psych: Yes: Addictions (heroin) - Past Surgical History Past Surgical History: Yes: None - Smoking History Smoking history: Former smoker Have you smoked in the past 12 months: Yes Aproximately how many cigarettes per day: 10 If you are a former smoker, when did you quit?: 4 MO AGO - Alcohol/Substance Use Hx Alcohol Use: No History of Substance Use: reports: Heroin - Social History ADL: Independent Occupation: Unemployed History of Recent Travel: No Home Medications - Allergies Allergies/Adverse Reactions: Allergies Allergy/AdvReac Type Severity Reaction Status Date / Time No Known Allergies Allergy Verified 10/18/16 13:39 - Home Medications Home Medications: Ambulatory Orders Albuterol Sulfate [Proventil HFA Inhaler -] 1 - 2 inh PO QID #1 inhaler Montelukast Na [Singulair -] 10 mg PO HS #30 tablet 07/29/16 Budesonide/Formeterol Fumarate [SYMBICORT 160/4.5mcg -] 1 inh PO BID #1 cannister 08/14/16 Family Disease History - Family Disease History Family History: Unremarkable Family Disease History: Diabetes: Mother, CA: Father (.) Review of Systems - Review of Systems Constitutional: reports: Loss of Appetite, Malaise, Weakness Eyes: reports: No Symptoms HENT: reports: No Symptoms Neck: reports: No Symptoms Cardiovascular: reports: Shortness of Breath Respiratory: reports: Cough, SOB Gastrointestinal: reports: No Symptoms Physical Examination Vital Signs: Vital Signs Temperature 97.6 F 08/09/16 13:50 Pulse Rate 101 H 08/09/16 13:50 Respiratory Rate 22 08/09/16 13:50 Blood Pressure 138/81 08/09/16 10:00 O2 Sat by Pulse Oximetry (%) 96 08/09/16 09:00 Constitutional: Yes: Well Nourished Eyes: Yes: WNL HENT: Yes: WNL Neck: Yes: WNL, Supple Cardiovascular: Yes: WNL, Regular Rate and Rhythm Respiratory: Yes: Rhonchi, Wheezes Gastrointestinal: Yes: WNL, Normal Bowel Sounds, Soft, Abdomen, Obese Musculoskeletal: Yes: WNL Extremities: Yes: WNL Edema: No Neurological: Yes: WNL, Alert, Oriented ...Motor Strength: WNL Problem List - Problems (1) Acute asthma exacerbation Assessment/Plan: cONT iv ANTIBXS/STEROIDS/NEBULIZERSD pULMONARY CONSULT Code(s): J45.901 - UNSPECIFIED ASTHMA WITH (ACUTE) EXACERBATION Qualifiers: Asthma severity: mild intermittent Qualified Code(s): J45.21 - Mild intermittent asthma with (acute) exacerbation (2) Heroin abuse Code(s): F11.10 - OPIOID ABUSE, UNCOMPLICATED (3) Opioid dependence with withdrawal Code(s): 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
--- NOTE | 2016-08-09 16:29 | PN ---
Progress Note (short form) - Note Progress Note: PULMONARY CONSULTATION DICTATED 08/09/16 IMP ASTHMA EXACERBATION LIKELY SECONDARY TO HEROIN INHALATION CHRONIC ASTHMA SUBSTANCE ABUSE SMOKER PLAN TAPER STEROIDS INHALED BRONCHODILATORS O2 D/C ANTIBIOTICS SMOKING CESSATION MONITOR PEAK FLOW DR THOMPSON Problem List - Problems (1) Acute bronchospasm Code(s): J98.01 - ACUTE BRONCHOSPASM (2) Heroin withdrawal Code(s): 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 (3) Leukocytosis Code(s): D72.829 - ELEVATED WHITE BLOOD CELL COUNT, UNSPECIFIED (4) Acute asthma exacerbation Code(s): J45.901 - UNSPECIFIED ASTHMA WITH (ACUTE) EXACERBATION Qualifiers: Asthma severity: mild intermittent Qualified Code(s): J45.21 - Mild intermittent asthma with (acute) exacerbation (5) Asthma Code(s): J45.909 - UNSPECIFIED ASTHMA, UNCOMPLICATED Qualifiers: Asthma severity: mild intermittent Asthma complication type: uncomplicated Qualified Code(s): J45.20 - Mild intermittent asthma, uncomplicated (6) Nicotine dependence Code(s): F17.200 - NICOTINE DEPENDENCE, UNSPECIFIED, UNCOMPLICATED Qualifiers : Nicotine product type: cigarettes Substance use status: in withdrawal Qualified Code(s): F17.213 - Nicotine dependence, cigarettes, with withdrawal (7) Opiate dependence, continuous Code(s): F11.20 - OPIOID DEPENDENCE, UNCOMPLICATED (8) Smoker Code(s): F17.200 - NICOTINE DEPENDENCE, UNSPECIFIED, UNCOMPLICATED
--- NOTE | 2016-08-09 19:41 | CONS ---
DATE OF CONSULTATION: 08/09/2016 PULMONARY CONSULTATION REFERRING PHYSICIAN: Flavia Diaz M.D. HISTORY OF PRESENT ILLNESS: The patient is a 45-year-old white male with a past medical history of asthma, history of smoking, history of heroin abuse, snorts. Admitted to [facility] complaining of increasing shortness of breath, chest congestion, and cough and wheezing. Patient states he used heroin a couple days prior to admission and then he states he started developing increasing shortness of breath, associated wheezing, chest congestion. Denies any fevers, chills, nausea, vomiting, or diaphoresis. He presented to the emergency room for the above. On admission, he was treated with inhaled bronchodilators and steroids, and transferred to the floor for further management. he has a history of tobacco use and history of substance abuse. He snorts heroin frequently. There is no history of occupational exposure to chemicals or fumes. There is no DVT or PE in the past. There is no history of respiratory failure in the past on ventilatory support. PAST MEDICAL HISTORY: Again, includes asthma, substance abuse. SOCIAL HISTORY: Smoker. No occupational exposures. CURRENT MEDICATIONS: Include Solu-Medrol, Zithromax, ceftriaxone, heparin, Robitussin, valium, Singulair, and methadone. PHYSICAL EXAMINATION: General: The patient is a well-developed, well-nourished male, awake, alert, in no acute distress. Vital signs: He is afebrile. Blood pressure 138/81, respiratory rate is 22, O2 saturation is 96% on 2 L. HEENT: Head is normocephalic, atraumatic. Neck: Supple. Heart: Regular. S1, S2. Chest: A few scattered bilateral wheezes. Abdomen: Soft. Bowel sounds positive. Extremities: No cyanosis, edema. LABORATORY: WBC is 21.9, hemoglobin 13, hematocrit 40, platelet count 405,000. BUN is 15, creatinine 0.8. Chest x-ray reveals no acute infiltrates or effusions. IMPRESSION: 1. Dyspnea, chest congestion secondary to asthma exacerbation most probably precipitated by heroin inhalation, 2. Substance abuse. 3. History of tobacco abuse. PLAN: Continue IV steroids inhaled bronchodilators, but discontinue antibiotics as no evidence of infection on chest x-ray. Monitor peak flow. ANGELA THOMPSON M.D. [id number] MTDD
[2016-08-09] MEDS: MONTELUKAST NA 10 MG TABLET PO SCH (21:26)
--- NOTE | 2016-08-09 23:45 | PN ---
Progress Note, Physician History of Present Illness: Pt still w/ productive cough - Current Medication List Current Medications: Active Medications Albuterol/Ipratropium (Duoneb -) 1 amp NEB Q6H PRN PRN Reason: SHORTNESS OF BREATH Last Admin: 08/09/16 06:48 Dose: 1 amp Diazepam (Valium -) 10 mg PO Q4H PRN PRN Reason: WITHDRAWAL(CONT SUBST) Stop: 08/12/16 09:36 Guaifenesin (Robitussin Dm -) 10 ml PO Q4H PRN PRN Reason: COUGH Last Admin: 08/09/16 21:26 Dose: 10 ml Heparin Sodium (Porcine) (Heparin -) 5,000 unit SQ BID VARSHA Last Admin: 08/09/16 21:26 Dose: 5,000 unit Dextrose/Sodium Chloride (D5-1/2ns -) 1,000 mls @ 75 mls/hr IV ASDIR VARSHA Last Admin: 08/09/16 21:27 Dose: 75 mls/hr Methadone HCl (Dolophine -) 10 mg PO ONCE ONE Stop: 08/11/16 10:01 Methadone HCl (Dolophine -) 15 mg PO ONCE ONE Stop: 08/10/16 10:01 Methadone HCl (Dolophine -) 5 mg PO ONCE@0600 ONE Stop: 08/12/16 06:01 Methylprednisolone Sodium Succinate (Solu-Medrol -) 40 mg IVPB Q8H-IV VARSHA Last Admin: 08/09/16 18:09 Dose: 40 mg Montelukast Sodium (Singulair -) 10 mg PO HS VARSHA Last Admin: 08/09/16 21:26 Dose: 10 mg Ondansetron HCl (Zofran Injection) 4 mg IVPB Q6H PRN PRN Reason: NAUSEA - Objective Vital Signs: Vital Signs Temperature 97.6 F 08/09/16 13:50 Pulse Rate 101 H 08/09/16 13:50 Respiratory Rate 22 08/09/16 13:50 Blood Pressure 138/81 08/09/16 10:00 O2 Sat by Pulse Oximetry (%) 95 08/09/16 20:52 Constitutional: Yes: Well Nourished HENT: Yes: WNL Neck: Yes: Supple Cardiovascular: Yes: WNL, Regular Rate and Rhythm Respiratory: Yes: Wheezes Gastrointestinal: Yes: WNL, Normal Bowel Sounds, Soft Problem List - Problems (1) Acute asthma exacerbation Assessment/Plan: Cont IV solumedrol Cont inhalers Code(s): J45.901 - UNSPECIFIED ASTHMA WITH (ACUTE) EXACERBATION Qualifiers: Asthma severity: mild intermittent Qualified Code(s): J45.21 - Mild intermittent asthma with (acute) exacerbation (2) Opioid dependence with withdrawal Assessment/Plan: Pt on methadone Code(s): 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 (3) Heroin abuse Code(s): F11.10 - OPIOID ABUSE, UNCOMPLICATED
[2016-08-10] MEDS: methylPREDNISolone NA SUCC 40 MG/1 ML VIAL IVPB SCH ×3 (01:16→17:06)
[2016-08-10 08:00] LABS: BASOPHIL 0.2 % (0-2.0); MCHC 32.5 g/dl (32.0-35.9); MEAN CELL VOLUME 80.1 fl (80-96); MEAN PLT VOLUME 7.9 fl (7.5-11.1); NEUTROPHILS 92.9 % (42.8-82.8); PLATELET COUNT 414 K/MM3 (134-434); RDW 14.4 % (11.9-15.9); WHITE BLOOD COUNT 20.7 K/mm3 (4.0-10.0)
[2016-08-10 08:43] LABS: ALBUMIN 2.9 g/dl (3.4-5.0); ALK PHOS 93 U/L (45-117); ANION GAP 11 (8-16); BILIRUBIN,TOTAL 0.5 mg/dL (0.2-1.0); CALCIUM 9.1 mg/dL (8.5-10.1); CO2 27 mmol/L (21-32); COCKROFT - GAULT 181.43; CREATININE 0.7 mg/dL (0.7-1.3); GLUCOSE,RANDOM 139 mg/dL (74-106); SGOT/AST 46 U/L (15-37); SGPT/ALT 92 U/L (12-78); TOT PROT 6.5 g/dl (6.4-8.2)
[2016-08-10] MEDS ORDERED: METHADONE HCL 10 MG TABLET ONE (09:18)
[2016-08-10] MEDS: HEPARIN NA (PORCINE) 5,000 UNITS/ML 1ML VIAL SQ SCH ×2 (09:24→21:27)
[2016-08-10] MEDS ORDERED: METHADONE HCL 5 MG TABLET (FOR DETOX USE ONLY) PO ONE (10:00)
--- NOTE | 2016-08-10 10:46 | PN ---
Progress Note (short form) - Note Progress Note: PULMONARY Still with shortness of breath, chest tightness, cough productive of yellow sputum. No fevers or chills. Last Vital Signs Temp Pulse Resp BP Pulse Ox 97.9 F 78 16 120/89 95 08/10/16 06:00 08/10/16 06:00 08/10/16 06:00 08/10/16 06:00 08/09/16 20:52 Gen: mildly tachypneic with exertion Heart: RRR Lung: bilateral rhonchi, wheezes, poor air entry Abd: soft, nontender Ext: no edema CBC, BMP 08/10/16 07:05 08/10/16 07:05 Active Medications Albuterol/Ipratropium (Duoneb -) 1 amp NEB Q6H PRN PRN Reason: SHORTNESS OF BREATH Last Admin: 08/09/16 23:15 Dose: 1 amp Diazepam (Valium -) 10 mg PO Q4H PRN PRN Reason: WITHDRAWAL(CONT SUBST) Stop: 08/12/16 09:36 Guaifenesin (Robitussin Dm -) 10 ml PO Q4H PRN PRN Reason: COUGH Last Admin: 08/09/16 21:26 Dose: 10 ml Heparin Sodium (Porcine) (Heparin -) 5,000 unit SQ BID VARSHA Last Admin: 08/10/16 09:24 Dose: 5,000 unit Dextrose/Sodium Chloride (D5-1/2ns -) 1,000 mls @ 75 mls/hr IV ASDIR VARSHA Last Admin: 08/09/16 21:27 Dose: 75 mls/hr Methadone HCl (Dolophine -) 10 mg PO ONCE ONE Stop: 08/11/16 10:01 Methadone HCl (Dolophine -) 5 mg PO ONCE@0600 ONE Stop: 08/12/16 06:01 Methylprednisolone Sodium Succinate (Solu-Medrol -) 40 mg IVPB Q8H-IV VARSHA Last Admin: 08/10/16 09:24 Dose: 40 mg Montelukast Sodium (Singulair -) 10 mg PO HS VARSHA Last Admin: 08/09/16 21:26 Dose: 10 mg Ondansetron HCl (Zofran Injection) 4 mg IVPB Q6H PRN PRN Reason: NAUSEA A/P Acute Asthma Exacerbation Heroin Abuse/Dependence Smoker - continue medrol at current dose - inhaled bronchodilators standing and PRN - O2 as needed - singulair - heroin, smoking cessation - DVT prophylaxis
[2016-08-10] MEDS ORDERED: ALBUTEROL SO4 0.083% IH SOL 2.5 MG/3 ML VIAL.NEB. NEB PRN (11:08)
[2016-08-10] MEDS: ALBUTEROL SO4 2.5/IPRATROPIUM 0.5 INH SOL 3 ML VIAL.NEB. NEB SCH ×3 (11:30→23:32)
[2016-08-10] MEDS: DEXTROSE 5%-0.45% SALINE 1,000 ML IV SCH (15:15)
[2016-08-10] MEDS: guaiFENesin/D-METHORPHAN HB 10 ML UNIT-DOSE CUPS PO PRN (18:49)
--- NOTE | 2016-08-10 20:21 | PN ---
Progress Note, Physician History of Present Illness: No new complaints - Current Medication List Current Medications: Active Medications Albuterol Sulfate (Ventolin 0.083% Nebulizer Soln -) 1 amp NEB Q4H PRN PRN Reason: SHORT OF BREATH/WHEEZING Albuterol/Ipratropium (Duoneb -) 1 amp NEB QIDR VARSHA Last Admin: 08/10/16 17:38 Dose: 1 amp Diazepam (Valium -) 10 mg PO Q4H PRN PRN Reason: WITHDRAWAL(CONT SUBST) Stop: 08/12/16 09:36 Guaifenesin (Robitussin Dm -) 10 ml PO Q4H PRN PRN Reason: COUGH Last Admin: 08/10/16 18:49 Dose: 10 ml Heparin Sodium (Porcine) (Heparin -) 5,000 unit SQ BID [facility] Last Admin: 08/10/16 09:24 Dose: 5,000 unit Dextrose/Sodium Chloride (D5-1/2ns -) 1,000 mls @ 75 mls/hr IV ASDIR [facility] Last Admin: 08/10/16 15:15 Dose: 75 mls/hr Methadone HCl (Dolophine -) 10 mg PO ONCE ONE Stop: 08/11/16 10:01 Methadone HCl (Dolophine -) 5 mg PO ONCE@0600 ONE Stop: 08/12/16 06:01 Methylprednisolone Sodium Succinate (Solu-Medrol -) 40 mg IVPB Q8H-IV VARSHA Last Admin: 08/10/16 17:06 Dose: 40 mg Montelukast Sodium (Singulair -) 10 mg PO HS [facility] Last Admin: 08/09/16 21:26 Dose: 10 mg Ondansetron HCl (Zofran Injection) 4 mg IVPB Q6H PRN PRN Reason: NAUSEA - Objective Vital Signs: Vital Signs Temperature 98.3 F 08/10/16 13:23 Pulse Rate 98 H 08/10/16 13:23 Respiratory Rate 20 08/10/16 13:23 Blood Pressure 130/74 08/10/16 10:00 O2 Sat by Pulse Oximetry (%) 92 L 08/10/16 11:29 Cardiovascular: Yes: WNL, Regular Rate and Rhythm Respiratory: Yes: WNL, Regular, CTA Bilaterally Gastrointestinal: Yes: WNL, Normal Bowel Sounds, Soft Labs: CBC, BMP 08/10/16 07:05 08/10/16 07:05 Problem List - Problems (1) Acute asthma exacerbation Code(s): J45.901 - UNSPECIFIED ASTHMA WITH (ACUTE) EXACERBATION Qualifiers: Asthma severity: mild intermittent Qualified Code(s): J45.21 - Mild intermittent asthma with (acute) exacerbation (2) Opioid dependence with withdrawal Code(s): 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 (3) Heroin abuse Code(s): F11.10 - OPIOID ABUSE, UNCOMPLICATED
[2016-08-10] MEDS: MONTELUKAST NA 10 MG TABLET PO SCH (21:28)
[2016-08-11] MEDS: guaiFENesin/D-METHORPHAN HB 10 ML UNIT-DOSE CUPS PO PRN ×2 (00:49→22:30)
[2016-08-11] MEDS: methylPREDNISolone NA SUCC 40 MG/1 ML VIAL IVPB SCH ×3 (01:56→17:38)
[2016-08-11] MEDS: DEXTROSE 5%-0.45% SALINE 1,000 ML IV SCH ×2 (05:33→19:11)
[2016-08-11] MEDS: ALBUTEROL SO4 2.5/IPRATROPIUM 0.5 INH SOL 3 ML VIAL.NEB. NEB SCH ×3 (06:30→17:15)
[2016-08-11] MEDS ORDERED: PT OWN MED DRAWER 7, Y5N ONE (09:24)
[2016-08-11] MEDS: HEPARIN NA (PORCINE) 5,000 UNITS/ML 1ML VIAL SQ SCH ×2 (09:42→22:02)
[2016-08-11] MEDS ORDERED: METHADONE HCL 10 MG TABLET (FOR DETOX USE ONLY) PO ONE (10:00)
[2016-08-11] MEDS ORDERED: METHADONE HCL 10 MG TABLET PO ONE (10:00)
--- NOTE | 2016-08-11 14:55 | PN ---
Progress Note (short form) - Note Progress Note: PULMONARY VSS/AFEBRILE ANICTERIC/-JVD MODERATE WHEEZE BILATERALLY S1S2 BS+ SOFT NO EDEMA LABS/MEDS/IMAGING/NOTES REVIEWED A/P Acute Asthma Exacerbation Heroin Abuse/Dependence Smoker - taper medrol - inhaled bronchodilators standing and PRN - O2 as needed - singulair - heroin, smoking cessation - DVT prophylaxis - not ready for discharge - daily peak flow Gal ZHU MD
--- NOTE | 2016-08-11 20:27 | PN ---
Progress Note, Physician History of Present Illness: No new complaints - Current Medication List Current Medications: Active Medications Albuterol Sulfate (Ventolin 0.083% Nebulizer Soln -) 1 amp NEB Q4H PRN PRN Reason: SHORT OF BREATH/WHEEZING Last Admin: 08/10/16 20:31 Dose: 1 amp Albuterol/Ipratropium (Duoneb -) 1 amp NEB QIDR VARSHA Last Admin: 08/11/16 17:15 Dose: 1 amp Diazepam (Valium -) 10 mg PO Q4H PRN PRN Reason: WITHDRAWAL(CONT SUBST) Stop: 08/12/16 09:36 Guaifenesin (Robitussin Dm -) 10 ml PO Q4H PRN PRN Reason: COUGH Last Admin: 08/11/16 00:49 Dose: 10 ml Heparin Sodium (Porcine) (Heparin -) 5,000 unit SQ BID VARSHA Last Admin: 08/11/16 09:42 Dose: 5,000 unit Dextrose/Sodium Chloride (D5-1/2ns -) 1,000 mls @ 75 mls/hr IV ASDIR [facility] Last Admin: 08/11/16 19:11 Dose: 75 mls/hr Methadone HCl (Dolophine -) 5 mg PO ONCE@0600 ONE Stop: 08/12/16 06:01 Methylprednisolone Sodium Succinate (Solu-Medrol -) 40 mg IVPB Q8H-IV VARSHA Last Admin: 08/11/16 17:38 Dose: 40 mg Montelukast Sodium (Singulair -) 10 mg PO HS [facility] Last Admin: 08/10/16 21:28 Dose: 10 mg Ondansetron HCl (Zofran Injection) 4 mg IVPB Q6H PRN PRN Reason: NAUSEA - Objective Vital Signs: Vital Signs Temperature 97.9 F 08/11/16 19:20 Pulse Rate 87 08/11/16 19:20 Respiratory Rate 20 08/11/16 19:20 Blood Pressure 133/72 08/11/16 19:20 O2 Sat by Pulse Oximetry (%) 96 08/11/16 10:40 Cardiovascular: Yes: WNL, Regular Rate and Rhythm Respiratory: Yes: WNL, Regular, CTA Bilaterally Gastrointestinal: Yes: WNL, Normal Bowel Sounds, Soft Labs: CBC, BMP 08/10/16 07:05 08/10/16 07:05 Problem List - Problems (1) Acute asthma exacerbation Code(s): J45.901 - UNSPECIFIED ASTHMA WITH (ACUTE) EXACERBATION Qualifiers: Asthma severity: mild intermittent Qualified Code(s): J45.21 - Mild intermittent asthma with (acute) exacerbation (2) Opioid dependence with withdrawal Code(s): 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 (3) Heroin abuse Code(s): F11.10 - OPIOID ABUSE, UNCOMPLICATED
[2016-08-11] MEDS: MONTELUKAST NA 10 MG TABLET PO SCH (22:01)
[2016-08-12] MEDS: methylPREDNISolone NA SUCC 40 MG/1 ML VIAL IVPB SCH ×3 (02:50→17:03)
[2016-08-12] MEDS ORDERED: METHADONE HCL 5 MG TABLET (FOR DETOX USE ONLY) PO ONE (06:00)
[2016-08-12] MEDS ORDERED: PT OWN MED DRAWER 7, Y5N ONE (06:22)
[2016-08-12] MEDS ORDERED: METHADONE HCL 10 MG TABLET ONE (06:25)
[2016-08-12] MEDS: ALBUTEROL SO4 2.5/IPRATROPIUM 0.5 INH SOL 3 ML VIAL.NEB. NEB SCH ×4 (06:40→17:50)
[2016-08-12 08:20] LABS: BASOPHIL 0.5 % (0-2.0); MCH 25.6 pg (25.7-33.7); MCHC 31.6 g/dl (32.0-35.9); MEAN PLT VOLUME 7.7 fl (7.5-11.1); NEUTROPHILS 92.2 % (42.8-82.8); PLATELET COUNT 406 K/MM3 (134-434); RDW 14.5 % (11.9-15.9)
[2016-08-12 08:49] LABS: ALBUMIN 2.9 g/dl (3.4-5.0); ALK PHOS 87 U/L (45-117); ANION GAP 13 (8-16); BILIRUBIN,TOTAL 0.3 mg/dL (0.2-1.0); CO2 26 mmol/L (21-32); COCKROFT - GAULT 181.43; CREATININE 0.7 mg/dL (0.7-1.3); GLUCOSE,RANDOM 142 mg/dL (74-106); SGOT/AST 21 U/L (15-37); SGPT/ALT 97 U/L (12-78); TOT PROT 6.5 g/dl (6.4-8.2)
[2016-08-12] MEDS: HEPARIN NA (PORCINE) 5,000 UNITS/ML 1ML VIAL SQ SCH ×2 (09:22→21:40)
--- NOTE | 2016-08-12 11:15 | PN ---
Progress Note (short form) - Note Progress Note: Still with congested cough and CONTRERAS when walking to the bathroom and in the hallway. Afebrile. Intake & Output 08/09/16 08/10/16 08/11/16 08/12/16 23:59 23:59 23:59 23:59 Intake Total 2700 2700 2750 1140 Output Total 200 Balance 2500 2700 2750 1140 Last Vital Signs Temp Pulse Resp BP Pulse Ox 98.2 F 80 18 121/82 93 L 08/12/16 10:00 08/12/16 10:00 08/12/16 10:00 08/12/16 10:00 08/12/16 09:00 Active Medications Albuterol Sulfate (Ventolin 0.083% Nebulizer Soln -) 1 amp NEB Q4H PRN PRN Reason: SHORT OF BREATH/WHEEZING Last Admin: 08/10/16 20:31 Dose: 1 amp Albuterol/Ipratropium (Duoneb -) 1 amp NEB QIDR VARSHA Last Admin: 08/12/16 11:08 Dose: 1 amp Guaifenesin (Robitussin Dm -) 10 ml PO Q4H PRN PRN Reason: COUGH Last Admin: 08/11/16 22:30 Dose: 10 ml Heparin Sodium (Porcine) (Heparin -) 5,000 unit SQ BID VARSHA Last Admin: 08/12/16 09:22 Dose: 5,000 unit Dextrose/Sodium Chloride (D5-1/2ns -) 1,000 mls @ 75 mls/hr IV ASDIR VARSHA Last Admin: 08/11/16 19:11 Dose: 75 mls/hr Methylprednisolone Sodium Succinate (Solu-Medrol -) 40 mg IVPB Q8H-IV VARSHA Last Admin: 08/12/16 09:22 Dose: 40 mg Montelukast Sodium (Singulair -) 10 mg PO HS VARSHA Last Admin: 08/11/16 22:01 Dose: 10 mg Ondansetron HCl (Zofran Injection) 4 mg IVPB Q6H PRN PRN Reason: NAUSEA Gen: mildly tachypneic with exertion Heart: RRR Lung: bilateral rhonchi, wheezes, poor air entry Abd: soft, nontender Ext: no edema Laboratory Results - last 24 hr 08/12/16 08/12/16 07:20 07:20 WBC 18.0 H RBC 4.69 Hgb 12.0 Hct 38.0 MCV 81.0 MCHC 31.6 L RDW 14.5 Plt Count 406 MPV 7.7 Neutrophils % 92.2 H Lymphocytes % 4.7 L Monocytes % 2.6 L Eosinophils % 0.0 Basophils % 0.5 Sodium 135 L Potassium 4.6 Chloride 96 L Carbon Dioxide 26 Anion Gap 13 BUN 16 D Creatinine 0.7 Creat Clearance w eGFR > 60 Random Glucose 142 H Calcium 9.0 Total Bilirubin 0.3 D AST 21 D ALT 97 H Alkaline Phosphatase 87 Total Protein 6.5 Albumin 2.9 L A/P Acute Asthma Exacerbation Heroin Abuse/Dependence Smoker - continue medrol at current dose -> Will try to taper tomorrow if improved - inhaled bronchodilators standing and PRN - O2 as needed - singulair - heroin, smoking cessation - DVT prophylaxis Dr Grover
--- NOTE | 2016-08-12 20:11 | PN ---
Progress Note, Physician History of Present Illness: No new complaints - Current Medication List Current Medications: Active Medications Albuterol Sulfate (Ventolin 0.083% Nebulizer Soln -) 1 amp NEB Q4H PRN PRN Reason: SHORT OF BREATH/WHEEZING Last Admin: 08/10/16 20:31 Dose: 1 amp Albuterol/Ipratropium (Duoneb -) 1 amp NEB QIDR VARSHA Last Admin: 08/12/16 17:50 Dose: 1 amp Guaifenesin (Robitussin Dm -) 10 ml PO Q4H PRN PRN Reason: COUGH Last Admin: 08/11/16 22:30 Dose: 10 ml Heparin Sodium (Porcine) (Heparin -) 5,000 unit SQ BID VARSHA Last Admin: 08/12/16 09:22 Dose: 5,000 unit Dextrose/Sodium Chloride (D5-1/2ns -) 1,000 mls @ 75 mls/hr IV ASDIR VARSHA Last Admin: 08/11/16 19:11 Dose: 75 mls/hr Methylprednisolone Sodium Succinate (Solu-Medrol -) 40 mg IVPB Q8H-IV VARSHA Last Admin: 08/12/16 17:03 Dose: 40 mg Montelukast Sodium (Singulair -) 10 mg PO HS VARSHA Last Admin: 08/11/16 22:01 Dose: 10 mg Ondansetron HCl (Zofran Injection) 4 mg IVPB Q6H PRN PRN Reason: NAUSEA - Objective Vital Signs: Vital Signs Temperature 97.4 F L 08/12/16 17:32 Pulse Rate 76 08/12/16 17:32 Respiratory Rate 18 08/12/16 17:32 Blood Pressure 124/81 08/12/16 17:32 O2 Sat by Pulse Oximetry (%) 96 08/12/16 13:07 Cardiovascular: Yes: WNL, Regular Rate and Rhythm Respiratory: Yes: WNL, Regular, CTA Bilaterally Gastrointestinal: Yes: WNL, Normal Bowel Sounds, Soft Labs: CBC, BMP 08/12/16 07:20 08/12/16 07:20 Problem List - Problems (1) Acute asthma exacerbation Code(s): J45.901 - UNSPECIFIED ASTHMA WITH (ACUTE) EXACERBATION Qualifiers: Asthma severity: mild intermittent Qualified Code(s): J45.21 - Mild intermittent asthma with (acute) exacerbation (2) Opioid dependence with withdrawal Code(s): 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 (3) Heroin abuse Code(s): F11.10 - OPIOID ABUSE, UNCOMPLICATED
[2016-08-12] MEDS: MONTELUKAST NA 10 MG TABLET PO SCH (21:40)
[2016-08-12] MEDS: DEXTROSE 5%-0.45% SALINE 1,000 ML IV SCH (22:25)
[2016-08-12] MEDS: guaiFENesin/D-METHORPHAN HB 10 ML UNIT-DOSE CUPS PO PRN (22:26)
[2016-08-13] MEDS: methylPREDNISolone NA SUCC 40 MG/1 ML VIAL IVPB SCH ×3 (02:41→17:17)
[2016-08-13] MEDS: ALBUTEROL SO4 2.5/IPRATROPIUM 0.5 INH SOL 3 ML VIAL.NEB. NEB SCH ×5 (06:05→23:43)
[2016-08-13] MEDS: HEPARIN NA (PORCINE) 5,000 UNITS/ML 1ML VIAL SQ SCH ×2 (09:38→21:37)
[2016-08-13] MEDS: DEXTROSE 5%-0.45% SALINE 1,000 ML IV SCH (09:39)
--- NOTE | 2016-08-13 12:10 | PN ---
Progress Note (short form) - Note Progress Note: Reports that he feels worse today. More congested cough but CONTRERAS when walking to the bathroom and in the hallway in about the same. Afebrile. Intake & Output 08/10/16 08/11/16 08/12/16 08/13/16 23:59 23:59 23:59 23:59 Intake Total 2700 2750 2230 Balance 2700 2750 2230 Last Vital Signs Temp Pulse Resp BP Pulse Ox 97.9 F 73 18 133/89 96 08/13/16 06:00 08/13/16 06:00 08/13/16 06:00 08/13/16 06:00 08/12/16 13:07 Active Medications Albuterol Sulfate (Ventolin 0.083% Nebulizer Soln -) 1 amp NEB Q4H PRN PRN Reason: SHORT OF BREATH/WHEEZING Last Admin: 08/10/16 20:31 Dose: 1 amp Albuterol/Ipratropium (Duoneb -) 1 amp NEB QIDR VARSHA Last Admin: 08/13/16 11:32 Dose: 1 amp Guaifenesin (Robitussin Dm -) 10 ml PO Q4H PRN PRN Reason: COUGH Last Admin: 08/12/16 22:26 Dose: 10 ml Heparin Sodium (Porcine) (Heparin -) 5,000 unit SQ BID VARSHA Last Admin: 08/13/16 09:38 Dose: 5,000 unit Dextrose/Sodium Chloride (D5-1/2ns -) 1,000 mls @ 75 mls/hr IV ASDIR VARSHA Last Admin: 08/13/16 09:39 Dose: 75 mls/hr Methylprednisolone Sodium Succinate (Solu-Medrol -) 40 mg IVPB Q8H-IV VARSHA Last Admin: 08/13/16 09:36 Dose: 40 mg Montelukast Sodium (Singulair -) 10 mg PO HS VARSHA Last Admin: 08/12/16 21:40 Dose: 10 mg Ondansetron HCl (Zofran Injection) 4 mg IVPB Q6H PRN PRN Reason: NAUSEA Gen: mildly tachypneic with exertion Heart: RRR Lung: bilateral rhonchi, Improving expiratory wheezes Abd: soft, nontender Ext: no edema A/P Acute Asthma Exacerbation Heroin Abuse/Dependence Smoker - continue medrol at current dose for today -> Will try to taper tomorrow if improved (lungs sound improved today, but patient subjectively reports feeling worse) - inhaled bronchodilators standing and PRN - O2 as needed - singulair - heroin, smoking cessation - DVT prophylaxis Dr Grover
--- NOTE | 2016-08-13 18:44 | PN ---
Progress Note, Physician History of Present Illness: Pt still w/ productive cough and feeling more SOB today - Current Medication List Current Medications: Active Medications Albuterol Sulfate (Ventolin 0.083% Nebulizer Soln -) 1 amp NEB Q4H PRN PRN Reason: SHORT OF BREATH/WHEEZING Last Admin: 08/10/16 20:31 Dose: 1 amp Albuterol/Ipratropium (Duoneb -) 1 amp NEB QIDR VARSHA Last Admin: 08/13/16 18:32 Dose: 1 amp Guaifenesin (Robitussin Dm -) 10 ml PO Q4H PRN PRN Reason: COUGH Last Admin: 08/12/16 22:26 Dose: 10 ml Heparin Sodium (Porcine) (Heparin -) 5,000 unit SQ BID VARSHA Last Admin: 08/13/16 09:38 Dose: 5,000 unit Methylprednisolone Sodium Succinate (Solu-Medrol -) 40 mg IVPB Q8H-IV VARSHA Last Admin: 08/13/16 17:17 Dose: 40 mg Montelukast Sodium (Singulair -) 10 mg PO HS [facility] Last Admin: 08/12/16 21:40 Dose: 10 mg Ondansetron HCl (Zofran Injection) 4 mg IVPB Q6H PRN PRN Reason: NAUSEA - Objective Vital Signs: Vital Signs Temperature 98.5 F 08/13/16 15:05 Pulse Rate 99 H 08/13/16 15:05 Respiratory Rate 18 08/13/16 15:05 Blood Pressure 125/80 08/13/16 15:05 O2 Sat by Pulse Oximetry (%) 97 08/13/16 09:00 Constitutional: Yes: Well Nourished HENT: Yes: WNL Neck: Yes: Supple Cardiovascular: Yes: WNL, Regular Rate and Rhythm Respiratory: Yes: Other (Decreased BS) Gastrointestinal: Yes: WNL, Normal Bowel Sounds, Soft Labs: CBC, BMP 08/12/16 07:20 08/12/16 07:20 Problem List - Problems (1) Acute asthma exacerbation Assessment/Plan: Pt still requiring same dose of IV solumedrol Cont inhalers Code(s): J45.901 - UNSPECIFIED ASTHMA WITH (ACUTE) EXACERBATION Qualifiers: Asthma severity: mild intermittent Qualified Code(s): J45.21 - Mild intermittent asthma with (acute) exacerbation (2) Opioid dependence with withdrawal Assessment/Plan: Pt on methadone Code(s): 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 (3) Heroin abuse Code(s): F11.10 - OPIOID ABUSE, UNCOMPLICATED
[2016-08-13] MEDS: MONTELUKAST NA 10 MG TABLET PO SCH (21:37)
[2016-08-13] MEDS: guaiFENesin/D-METHORPHAN HB 10 ML UNIT-DOSE CUPS PO PRN (21:39)
[2016-08-14] MEDS: methylPREDNISolone NA SUCC 40 MG/1 ML VIAL IVPB SCH ×2 (02:34→10:23)
[2016-08-14] MEDS: ALBUTEROL SO4 2.5/IPRATROPIUM 0.5 INH SOL 3 ML VIAL.NEB. NEB SCH ×2 (07:28→11:00)
[2016-08-14 07:54] LABS: BASOPHIL 0.1 % (0-2.0); MCH 26.1 pg (25.7-33.7); MCHC 32.6 g/dl (32.0-35.9); MEAN CELL VOLUME 80.2 fl (80-96); MEAN PLT VOLUME 7.5 fl (7.5-11.1); NEUTROPHILS 93.7 % (42.8-82.8); PLATELET COUNT 396 K/MM3 (134-434); RDW 14.5 % (11.9-15.9); WHITE BLOOD COUNT 19.7 K/mm3 (4.0-10.0)
[2016-08-14 08:36] LABS: ALBUMIN 3.1 g/dl (3.4-5.0); ALK PHOS 87 U/L (45-117); ANION GAP 13 (8-16); BILIRUBIN,TOTAL 0.4 mg/dL (0.2-1.0); CALCIUM 9.3 mg/dL (8.5-10.1); CO2 28 mmol/L (21-32); COCKROFT - GAULT 158.75; CREATININE 0.8 mg/dL (0.7-1.3); GLUCOSE,RANDOM 131 mg/dL (74-106); SGOT/AST 10 U/L (15-37); SGPT/ALT 71 U/L (12-78); TOT PROT 6.6 g/dl (6.4-8.2)
[2016-08-14] MEDS: HEPARIN NA (PORCINE) 5,000 UNITS/ML 1ML VIAL SQ SCH (10:23)
--- NOTE | 2016-08-14 13:56 | PN ---
Progress Note (short form) - Note Progress Note: Reports that he feels better today. Still with some congested cough, but improved. Improved CONTRERAS. NAD on RA. Afebrile. Intake & Output 08/11/16 08/12/16 08/13/16 08/14/16 23:59 23:59 23:59 23:59 Intake Total 2750 2230 1320 350 Balance 2750 2230 1320 350 Last Vital Signs Temp Pulse Resp BP Pulse Ox 97.8 F 94 H 18 148/76 91 L 08/14/16 09:50 08/14/16 10:55 08/14/16 09:50 08/14/16 09:50 08/14/16 10:55 Active Medications Albuterol Sulfate (Ventolin 0.083% Nebulizer Soln -) 1 amp NEB Q4H PRN PRN Reason: SHORT OF BREATH/WHEEZING Last Admin: 08/10/16 20:31 Dose: 1 amp Albuterol/Ipratropium (Duoneb -) 1 amp NEB QIDR [facility] Last Admin: 08/14/16 11:00 Dose: 1 amp Guaifenesin (Robitussin Dm -) 10 ml PO Q4H PRN PRN Reason: COUGH Last Admin: 08/13/16 21:39 Dose: 10 ml Heparin Sodium (Porcine) (Heparin -) 5,000 unit SQ BID [facility] Last Admin: 08/14/16 10:23 Dose: 5,000 unit Montelukast Sodium (Singulair -) 10 mg PO HS [facility] Last Admin: 08/13/16 21:37 Dose: 10 mg Ondansetron HCl (Zofran Injection) 4 mg IVPB Q6H PRN PRN Reason: NAUSEA Gen: NAD Heart: RRR Lung: few scattered rhonchi, No expiratory wheezes Abd: soft, nontender Ext: no edema Laboratory Results - last 24 hr 08/14/16 08/14/16 07:05 07:05 WBC 19.7 H RBC 4.80 Hgb 12.5 Hct 38.5 MCV 80.2 MCHC 32.6 RDW 14.5 Plt Count 396 MPV 7.5 Neutrophils % 93.7 H Lymphocytes % 3.5 L D Monocytes % 2.7 L Eosinophils % 0.0 Basophils % 0.1 Sodium 134 L Potassium 4.8 Chloride 93 L Carbon Dioxide 28 Anion Gap 13 BUN 22 H D Creatinine 0.8 Creat Clearance w eGFR > 60 Random Glucose 131 H Calcium 9.3 Total Bilirubin 0.4 D AST 10 L D ALT 71 D Alkaline Phosphatase 87 Total Protein 6.6 Albumin 3.1 L A/P Acute Asthma Exacerbation Heroin Abuse/Dependence Smoker - Can change to Prednisone taper -> start at 60mg OD - Can D/C on Symbicort 160/4.5 : 2 inhalations BID (or equivalent) Singulair 10mg QHS Albuterol PRN No smoking (illicit substance) discussed again cessation No Pulmonary contraindication for D/C Dr Grover
[2016-08-14] MEDS ORDERED: predniSONE 20 MG TABLET (UD) PO SCH (14:00)
[2016-08-14 14:50] VITALS: BP 140/83; PULSE 88; TEMP 97.7
--- NOTE | 2016-10-29 15:28 | DS ---
Physical Examination Vital Signs: Vital Signs Temperature 97.7 F 08/14/16 14:49 Pulse Rate 88 08/14/16 14:49 Respiratory Rate 18 08/14/16 09:50 Blood Pressure 140/83 08/14/16 14:49 O2 Sat by Pulse Oximetry (%) 91 L 08/14/16 10:55 Constitutional: Yes: Well Nourished Eyes: Yes: WNL HENT: Yes: WNL Neck: Yes: WNL, Supple Cardiovascular: Yes: WNL, Regular Rate and Rhythm Respiratory: Yes: WNL, Regular, CTA Bilaterally Gastrointestinal: Yes: WNL, Normal Bowel Sounds, Soft Labs: CBC, BMP 08/14/16 07:05 08/14/16 07:05 Discharge Summary Reason For Visit: EXACERBATION OF ASTHMA,OPIOID DEPENDENCE Current Active Problems Acute bronchospasm (Acute) Leukocytosis (Acute) Asthma exacerbation (Chronic) Hospital Course: Pt is a 45 y/o morbidly obese male w/ active heroin use who presented to the ER after using heroin. He was found to have acute exacerbation of asthma and started on IV antibxs/steroids/nebulizers. Pt was seen by pulmonary and changed to po meds and dc'ed Condition: Fair - Instructions Diet, Activity, Other Instructions: 2 gram sodium diet See Dr Yanez this week [phone] Referrals: Eric Yanez MD [Primary Care Provider] - Disposition: HOME - Home Medications Comprehensive Discharge Medication List: Ambulatory Orders Albuterol Sulfate [Proventil HFA Inhaler -] 1 - 2 inh PO QID #1 inhaler Montelukast Na [Singulair -] 10 mg PO HS #30 tablet 07/29/16 Budesonide/Formeterol Fumarate [SYMBICORT 160/4.5mcg -] 1 inh PO BID #1 cannister 08/14/16
== END 2016-08-14 16:56 | disposition home or self-care (01) | DRG 141 ==
LOC: JER 11:06 → JERBED 12:56 → J6S 15:13
PROVIDERS: ADMIT Internal Medicine; ATTEND Internal Medicine
PROC: HZ81ZZZ Medication Management for Substance Abuse Treatment, Methadone Maintenance (ICD-10-PCS; principal; 2016-08-08)
DX: J45.21 Mild intermittent asthma with (acute) exacerbation (principal); R00.0 Tachycardia, unspecified; F11.23 Opioid dependence with withdrawal; F17.213 Nicotine dependence, cigarettes, with withdrawal; D72.829 Elevated white blood cell count, unspecified; F11.20 Opioid dependence, uncomplicated
CPT/HCPCS: 36415; 71010-TC; 80053; 80307; 82550; 82553; 83605; 84484; 85025; 94150; 94640; 99283-25; J1644

== ENCOUNTER 2016-09-25 08:24 | Inpatient (IN) | payer OTHER ==
[2016-09-25] MEDS ORDERED: ALBUTEROL SO4 2.5/IPRATROPIUM 0.5 INH SOL 3 ML VIAL.NEB. NEB ONE ×2 (08:33→09:32)
--- NOTE | 2016-09-25 08:47 | PDOC ---
History of Present Illness - History of Present Illness Initial Comments: 09/25/16 09:05 Patient is a 45-year-old male with past medical history of asthma, opioid abuse who presents to the emergency department complaining of shortness of breath. Patient was seen in our ED yesterday 09/24/16 for similar symptoms. Patient states that last used heroin this morning at 3 AM by sniffing it. Patient states his asthma is always worse after sniffing heroin. He states he last took his inhaler last night around 7 or 8 PM as well as taking his prednisone. Patient states that his shortness of breath is worse today. Patient denies being intubated for his asthma. Last admission for asthma exacerbation was 08/08. Admits to post tussive vomiting, chills, and wheezing. Denies fevers, chest pain, palpitations, seasonal allergies, runny nose, congestion, nausea, vomiting and diarrhea. <Jennifer Valenzuela - Last Filed: 09/25/16 16:40> <Flavia Lopez - Last Filed: 09/26/16 09:35> - General Chief Complaint: Shortness of Breath Stated Complaint: SOB Time Seen by Provider: 09/25/16 08:46 Past History - Travel Traveled outside of the country in the last 30 days: No Close contact w/someone who was outside of country & ill: No - Past Medical History Anemia: No Asthma: Yes Cancer: No Cardiac Disorders: No CVA: No COPD: No CHF: No Dementia: No Diabetes: No GI Disorders: No Disorders: No HTN: No Hypercholesterolemia: No Kidney Stones: No Liver Disease: No Suicide Attempt (Hx): No (DENIES. PATIENT DENIES CURRENT SI / HI.) Seizures: No Thyroid Disease: No Other medical history: heroin abuse - Surgical History Abdominal Surgery: No Appendectomy: No Cardiac Surgery: No Cholecystectomy: No Lung Surgery: No Neurologic Surgery: No Orthopedic Surgery: No - Reproductive History Testicular Surgery: No - Immunization History Td Vaccination: Yes Immunization Up to Date: Yes - Psycho/Social/Smoking Cessation Hx Anxiety: No Suicidal Ideation: No Smoking Status: Yes Smoking History: Current every day smoker Years of Tobacco Use: 40 Have you smoked in the past 12 months: Yes Number of Cigarettes Smoked Daily: 10 If you are a former smoker, when did you quit?: 4 MO AGO Cigars Per Day: 0 Information on smoking cessation initiated: Yes 'Breaking Loose' booklet given: 09/25/16 Hx Alcohol Use: Yes (heroin) Drug/Substance Use Hx: No Substance Use Type: Heroin, Opiates Hx Substance Use Treatment: Yes (Previous Detox admissions at [facility] <Jennifer Valenzuela - Last Filed: 09/25/16 16:40> <Flavia Lopez - Last Filed: 09/26/16 09:35> - Past Medical History Allergies/Adverse Reactions: Allergies Allergy/AdvReac Type Severity Reaction Status Date / Time No Known Allergies Allergy Verified 09/25/16 08:29 Home Medications: Ambulatory Orders Albuterol Sulfate [Proventil HFA Inhaler -] 1 - 2 inh PO QID #1 inhaler Montelukast Na [Singulair -] 10 mg PO HS #30 tablet 07/29/16 Budesonide/Formeterol Fumarate [SYMBICORT 160/4.5mcg -] 1 inh PO BID #1 cannister 08/14/16 Prednisone [Deltasone -] 40 mg PO DAILY #8 tablet 09/24/16 Review of Systems - Review of Systems Constitutional: Yes: Chills. No: Fever, Weakness HEENTM: No: Ear Pain, Nose Pain Respiratory: Yes: Cough, SOB at Rest, Wheezing Cardiac (ROS): No: Chest Pain, Lightheadedness, Palpitations ABD/GI: No: Diarrhea, Nausea, Vomiting Neurological: Yes: Tremors. No: Numbness, Tingling, Weakness <Jennifer Valenzuela - Last Filed: 09/25/16 16:40> *Physical Exam - Vital Signs Last Vital Signs Temp Pulse Resp BP Pulse Ox 115 H 22 145/98 95 09/25/16 08:29 09/25/16 08:29 09/25/16 08:29 09/25/16 08:29 - Physical Exam General Appearance: Yes: Nourished, Disheveled, Mild Distress, Other (AAOx3, drowsy. Arousible with loud speaking) HEENT: positive: EOMI. negative: MAGDIEL (fixed pinpoint pupils b/l), Nasal Congestion, Rhinorrhea Neck: positive: Trachea midline, Supple. negative: Tender, Rigid Respiratory/Chest: positive: Respiratory Distress (Mildly tachypnic ), Wheezing (Inspiratory and expiratory wheezing B/L s/p 1 duoneb treatment). negative: Chest Tender, Lungs Clear, Normal Breath Sounds, Accessory Muscle Use, Crackles , Rales Cardiovascular: positive: Regular Rhythm, S1, S2 (present), Tachycardia. negative: Murmur Gastrointestinal/Abdominal: positive: Normal Bowel Sounds, Flat, Soft. 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 negative: Normal Response (Pt. drowsy but arousible with loud voice. AAOx3) <Jennifer Valenzuela - Last Filed: 09/25/16 16:40> - Vital Signs Last Vital Signs Temp Pulse Resp BP Pulse Ox 97.9 F 101 H 19 134/63 98 09/26/16 06:02 09/26/16 06:02 09/26/16 06:02 09/26/16 06:02 09/25/16 21:00 <Flavia Lopez - Last Filed: 09/26/16 09:35> ED Treatment Course - LABORATORY CBC & Chemistry Diagram: 09/25/16 09:30 09/25/16 09:30 - Medications Given in the ED: ED Medications Discontinued Medications Generic Name Dose Route Start Last Admin Trade Name Freq PRN Reason Stop Dose Admin Albuterol/Ipratropium 1 amp 09/25/16 08:33 09/25/16 08:33 Duoneb - NEB 09/25/16 08:34 1 amp NOW ONE Administration <Jennifer Valenzuela - Last Filed: 09/25/16 16:40> - LABORATORY CBC & Chemistry Diagram: 09/26/16 06:35 09/26/16 06:35 - ADDITIONAL ORDERS Additional order review: 09/25/16 09:30 RBC 4.85 MCV 80.1 MCHC 31.9 L RDW 15.3 MPV 8.3 D Neutrophils % 76.6 Lymphocytes % 14.5 D Monocytes % 6.1 D Eosinophils % 2.0 D Basophils % 0.8 D - Medications Given in the ED: ED Medications Discontinued Medications Generic Name Dose Route Start Last Admin Trade Name Freq PRN Reason Stop Dose Admin Albuterol/Ipratropium 1 amp 09/25/16 08:33 09/25/16 08:33 Duoneb - NEB 09/25/16 08:34 1 amp NOW ONE Administration Albuterol/Ipratropium 1 amp 09/25/16 09:00 09/25/16 10:00 Duoneb - NEB 09/25/16 09:46 1 amp Q15M VARSHA Administration Azithromycin 500 mg 09/26/16 04:00 09/26/16 05:06 Zithromax 500mg Ivpb (Pre-Docked) IVPB 09/26/16 04:01 500 mg ONCE ONE Administration Magnesium Sulfate 2 gm 09/25/16 11:04 09/25/16 11:30 Magnesium Sulfate IVPB 09/25/16 11:05 2 gm ONCE ONE Administration Methylprednisolone Sodium Succinate 125 mg 09/25/16 08:57 09/25/16 09:39 Solu-Medrol - IVPB 09/25/16 08:58 125 mg ONCE ONE Administration Terbutaline Sulfate 0.25 mg 09/25/16 11:04 09/25/16 16:01 Brethine Injection - SQ 09/25/16 11:05 0.25 mg ONCE ONE Administration <Flavia Lopez - Last Filed: 09/26/16 09:35> Medical Decision Making - Medical Decision Making 09/25/16 09:05 Patient is a 45-year-old male with past medical history of asthma, opioid abuse who presents to the emergency department with an asthma exacerbation after sniffing heroin at 3 AM this morning. O2 sat currently 95% and there is significant B/L inspiratory and expiratory wheezing. Since patient was seen yesterday and has additionally sniffed more heroin, will order basic labs and chest x-ray and EKG at this time. Will order DuoNeb's for every 15 minutes as well as Solu-Medrol. Reevaluate. 09/25/16 10:01 Labs are notable for a white count of 11. However this is not unexpected given steroid use for his asthma exacerbation. Otherwise labs are unremarkable. Chest x-ray shows no evidence of acute pulmonary disease. Patient still with significant expiratory wheezing after 3 DuoNeb treatments. Will continue to monitor. Will give magnesium and terbutaline at this time. 09/25/16 10:27 EKG: Sinus rhythm with sinus arrythmia. Rate of 87 bpm with QT/QTc 362/435. No acute ST-T wave changes. Pt. still with significant wheezing after all treatments. Sats remain in the mid 90's. Will admit at this time to Dr. Diaz. <Jennifer Valenzuela - Last Filed: 09/25/16 16:40> *DC/Admit/Observation/Transfer - Discharge Dispostion Admit: Yes <Jennifer Valenzuela - Last Filed: 09/25/16 16:40> - Attestations Physician Attestion: I reviewed the case with the mid-level practitioner and agree with the mid- level practitioner's assessment, diagnosis and disposition. <Flavia Lopez - Last Filed: 09/26/16 09:35> Diagnosis at time of Disposition: Asthma exacerbation - Discharge Dispostion Condition at time of disposition: Stable - Referrals
[2016-09-25] MEDS ORDERED: methylPREDNISolone NA SUCC 125 MG/2 ML VIAL IVPB ONE (08:57)
[2016-09-25] MEDS ORDERED: methylPREDNISolone NA SUCC 125 MG/2 ML VIAL ONE (09:33)
[2016-09-25 09:39] LABS: BASOPHIL 0.8 % (0-2.0); MCH 25.5 pg (25.7-33.7); MCHC 31.9 g/dl (32.0-35.9); MEAN CELL VOLUME 80.1 fl (80-96); MEAN PLT VOLUME 8.3 fl (7.5-11.1); NEUTROPHILS 76.6 % (42.8-82.8); PLATELET COUNT 300 K/MM3 (134-434); RDW 15.3 % (11.9-15.9)
[2016-09-25] MEDS: ALBUTEROL SO4 2.5/IPRATROPIUM 0.5 INH SOL 3 ML VIAL.NEB. NEB SCH ×3 (09:39→10:00)
[2016-09-25 09:56] LABS: ALBUMIN 3.5 g/dl (3.4-5.0); ALK PHOS 90 U/L (45-117); ANION GAP 10 (8-16); BILIRUBIN,TOTAL 0.3 mg/dL (0.2-1.0); CALCIUM 9.1 mg/dL (8.5-10.1); CO2 24 mmol/L (21-32); COCKROFT - GAULT 155.51; CREATININE 0.7 mg/dL (0.7-1.3); GLUCOSE,RANDOM 108 mg/dL (74-106); SGOT/AST 15 U/L (15-37); SGPT/ALT 18 U/L (12-78); TOT PROT 7.1 g/dl (6.4-8.2)
[2016-09-25] MEDS ORDERED: TERBUTALINE SULFATE 1 MG/1 ML VIAL SQ ONE ×2 (11:04→15:58)
[2016-09-25] MEDS ORDERED: MAGNESIUM SULF 50% (8.12 MEQ/2 ML-1 GM VIAL) IVPB ONE (11:04)
[2016-09-25] MEDS ORDERED: MAGNESIUM SULF 50% (8.12 MEQ/2 ML-1 GM VIAL) ONE (11:36)
--- NOTE | 2016-09-25 14:00 | EKG ---
Test Reason : Blood Pressure : / mmHG Vent. Rate : 087 BPM Atrial Rate : 087 BPM P-R Int : 174 ms QRS Dur : 084 ms QT Int : 362 ms P-R-T Axes : 051 012 045 degrees QTc Int : 435 ms SINUS RHYTHM WITH MARKED SINUS ARRHYTHMIA OTHERWISE NORMAL ECG WHEN COMPARED WITH ECG OF 23-JUL-2016 11:28, FUSION COMPLEXES ARE NO LONGER PRESENT Confirmed by MARY WORTHY MD ([id number]) on 09/25/2016 1:59:53 PM Referred By: Confirmed By:MARY WORTHY MD
--- NOTE | 2016-09-25 14:45 | CONSULT ---
Consult Detox [facility] Reason for Current Admission/Consult: Heroin dependnce with withdrawal Referred by:: JEANMARIE Elias - History History of Present Illness: 45 y/o man known to me from previous detox.Pt. snorts heroin which triggers his asthma.I discussed this with pt. every time he's admitted,but he refuses to attend intensive out-pt. to help him stop using heroin. - Alcohol/Substance Use Hx Alcohol Use: Yes (heroin) - Past Medical History Pulmonary: Yes: Asthma Psych: Yes: Addictions (heroin) - Past Surgical History Past Surgical History: Yes: None Assessment Plan - Diagnosis (1) Opioid dependence with withdrawal Status: Acute - Plan Plan: Urine drug screen stat,once result is available we'll start methadone detox.
[2016-09-25 16:37] VITALS: BMI 30.7
--- NOTE | 2016-09-25 23:18 | HP ---
Admitting History and Physical - Admission History of Present Illness: Patient is a 45-year-old male with past medical history of asthma, opioid abuse who presents to the emergency department complaining of shortness of breath. Patient was seen in our ED yesterday 09/24/16 for similar symptoms. Patient states that last used heroin this morning at 3 AM by sniffing it. Patient states his asthma is always worse after sniffing heroin. He states he last took his inhaler last night around 7 or 8 PM as well as taking his prednisone. Patient states that his shortness of breath is worse today. Patient denies being intubated for his asthma. Last admission for asthma exacerbation was 08/08. Admits to post tussive vomiting, chills, and wheezing. Denies fevers, chest pain, palpitations, seasonal allergies, runny nose, congestion, nausea, vomiting and diarrhea. - Past Medical History Pulmonary: Yes: Asthma Psych: Yes: Addictions (heroin) - Past Surgical History Past Surgical History: Yes: None - Smoking History Smoking history: Current every day smoker Have you smoked in the past 12 months: Yes Aproximately how many cigarettes per day: 10 If you are a former smoker, when did you quit?: 4 MO AGO - Alcohol/Substance Use Hx Alcohol Use: Yes (heroin) History of Substance Use: reports: Heroin - Social History ADL: Independent Occupation: Unemployed History of Recent Travel: No Home Medications - Allergies Allergies/Adverse Reactions: Allergies Allergy/AdvReac Type Severity Reaction Status Date / Time No Known Allergies Allergy Verified 09/25/16 08:29 - Home Medications Home Medications: Ambulatory Orders Albuterol Sulfate [Proventil HFA Inhaler -] 1 - 2 inh PO QID #1 inhaler Montelukast Na [Singulair -] 10 mg PO HS #30 tablet 07/29/16 Budesonide/Formeterol Fumarate [SYMBICORT 160/4.5mcg -] 1 inh PO BID #1 cannister 08/14/16 Prednisone [Deltasone -] 40 mg PO DAILY #8 tablet 09/24/16 Family Disease History - Family Disease History Family History: Unremarkable Family Disease History: Diabetes: Mother, CA: Father (.) Review of Systems - Review of Systems Constitutional: reports: No Symptoms Eyes: reports: No Symptoms HENT: reports: No Symptoms Neck: reports: No Symptoms Cardiovascular: reports: Shortness of Breath Respiratory: reports: Cough, SOB, Wheezing Gastrointestinal: reports: No Symptoms Genitourinary: reports: No Symptoms Physical Examination Vital Signs: Vital Signs Temperature 97.2 F L 09/25/16 16:36 Pulse Rate 112 H 09/25/16 16:36 Respiratory Rate 20 09/25/16 16:36 Blood Pressure 148/79 09/25/16 16:36 O2 Sat by Pulse Oximetry (%) 98 09/25/16 16:41 Constitutional: Yes: Well Nourished HENT: Yes: WNL Neck: Yes: Supple Cardiovascular: Yes: WNL, Regular Rate and Rhythm Respiratory: Yes: Wheezes Gastrointestinal: Yes: WNL, Normal Bowel Sounds, Soft Musculoskeletal: Yes: WNL Extremities: Yes: WNL Edema: No Neurological: Yes: WNL, Alert, Oriented ...Motor Strength: WNL Problem List - Problems (1) Acute exacerbation of chronic obstructive pulmonary disease (COPD) Assessment/Plan: Cont IV steroids Cont nebulizers Pulmonary consult Code(s): J44.1 - CHRONIC OBSTRUCTIVE PULMONARY DISEASE W (ACUTE) EXACERBATION (2) Opiate dependence, continuous Assessment/Plan: Long d/w pt about need for rehab urine tox screeen (+) Code(s): F11.20 - OPIOID DEPENDENCE, UNCOMPLICATED (3) Cocaine dependence Code(s): F14.20 - COCAINE DEPENDENCE, UNCOMPLICATED Qualifiers: Substance use status: uncomplicated Qualified Code(s): F14.20 - Cocaine dependence, uncomplicated
[2016-09-26] MEDS ORDERED: AZITHROMYCIN IVPB 500 MG in DEXTROSE 5%-WATER - 250 ML IVPB ONE (02:39)
[2016-09-26] MEDS ORDERED: ONDANSETRON 4 MG/2 ML VIAL IVPB PRN (02:40)
[2016-09-26] MEDS ORDERED: ALBUTEROL SO4 2.5/IPRATROPIUM 0.5 INH SOL 3 ML VIAL.NEB. NEB PRN (02:40)
[2016-09-26] MEDS ORDERED: CEFTRIAXONE 1 GM in DEXTROSE 5%-WATER - 50 ML IVPB SCH (02:45)
[2016-09-26] MEDS: DEXTROSE 5%-0.45% SALINE 1,000 ML IV SCH ×2 (03:00→18:02)
[2016-09-26] MEDS ORDERED: AZITHROMYCIN IVPB 500 MG/250 ML D5W PRE-DOCKED IVPB ONE (04:00)
[2016-09-26] MEDS ORDERED: cefTRIAXone 1 GM/50 ML BAG (PRE-DOCKED) IVPB ONE ×2 (04:00)
[2016-09-26] MEDS ORDERED: cefTRIAXone 1 GM/50 ML BAG (PRE-DOCKED) IVPB SCH (04:00)
[2016-09-26] MEDS: cefTRIAXone 1 GM/50 ML BAG (PRE-DOCKED) IVPB SCH ×2 (04:11→20:20)
[2016-09-26 04:15] LABS: URINE MARIJUANA THC NEGATIVE ng/ml (CUTOFF=50)
[2016-09-26 07:56] LABS: BASOPHIL 0.5 % (0-2.0); MCH 26.2 pg (25.7-33.7); MCHC 32.9 g/dl (32.0-35.9); MEAN CELL VOLUME 79.6 fl (80-96); MEAN PLT VOLUME 8.4 fl (7.5-11.1); NEUTROPHILS 77.2 % (42.8-82.8); PLATELET COUNT 322 K/MM3 (134-434); RDW 15.7 % (11.9-15.9); WHITE BLOOD COUNT 14.9 K/mm3 (4.0-10.0)
[2016-09-26 08:23] LABS: ALBUMIN 3.4 g/dl (3.4-5.0); ALK PHOS 82 U/L (45-117); ANION GAP 10 (8-16); BILIRUBIN,TOTAL 0.2 mg/dL (0.2-1.0); CO2 26 mmol/L (21-32); COCKROFT - GAULT 174.52; CREATININE 0.7 mg/dL (0.7-1.3); GLUCOSE,RANDOM 123 mg/dL (74-106); SGOT/AST 9 U/L (15-37); SGPT/ALT 15 U/L (12-78); TOT PROT 6.8 g/dl (6.4-8.2)
[2016-09-26] MEDS: HEPARIN NA (PORCINE) 5,000 UNITS/ML 1ML VIAL SQ SCH ×2 (09:57→21:48)
[2016-09-26] MEDS: methylPREDNISolone NA SUCC 40 MG/1 ML VIAL IVPB SCH ×2 (09:58→18:10)
[2016-09-26] MEDS ORDERED: METHADONE HCL 10 MG TABLET (FOR DETOX USE ONLY) PO ONE ×2 (10:00→12:00)
[2016-09-26] MEDS: BUDESONIDE/FORMETEROL FUMARATE 160/4.5 mcg INHALER IH SCH ×2 (12:08→21:48)
[2016-09-26] MEDS ORDERED: METHADONE HCL 10 MG TABLET PO ONE (12:15)
--- NOTE | 2016-09-26 12:22 | CON.PULM ---
Consult Consult Specialty:: PULM/CCM Referred by:: [facility] Reason for Consultation:: SOB - History of Present Illness Chief Complaint: SOB History of Present Illness: 45 M, smoker, COPD, cocaine/heroin abuse, and "asthma". Recent admit September 2016 for AE of "asthma". Patient reports 2 to 3 days of increasing cough, wheezing, and SOB. No travel history or sick contacts. No hemoptysis or night sweats. Toxicology is noted to be (+) for opiates/cocaine. CXR : no acute pathology. - History Source History Provided By: Patient Limitations to Obtaining History: No Limitations - Past Medical History Pulmonary: Yes: Asthma, COPD, Other (smoker ) Psych: Yes: Addictions (heroin) - Past Surgical History Past Surgical History: Yes: None - Alcohol/Substance Use Hx Alcohol Use: Yes (heroin) History of Substance Use: reports: Heroin - Smoking History Smoking history: Current every day smoker Have you smoked in the past 12 months: Yes Aproximately how many cigarettes per day: 10 If you are a former smoker, when did you quit?: 4 MO AGO - Social History ADL: Independent Occupation: Unemployed History of Recent Travel: No Home Medications - Allergies Allergies/Adverse Reactions: Allergies Allergy/AdvReac Type Severity Reaction Status Date / Time No Known Allergies Allergy Verified 09/25/16 08:29 - Home Medications Home Medications: Ambulatory Orders Albuterol Sulfate [Proventil HFA Inhaler -] 1 - 2 inh PO QID #1 inhaler Montelukast Na [Singulair -] 10 mg PO HS #30 tablet 07/29/16 Budesonide/Formeterol Fumarate [SYMBICORT 160/4.5mcg -] 1 inh PO BID #1 cannister 08/14/16 Prednisone [Deltasone -] 40 mg PO DAILY #8 tablet 09/24/16 Family Disease History - Family Disease History Family Disease History: Diabetes: Mother, CA: Father (.) Review of Systems - Review of Systems Constitutional: reports: Malaise, Weakness. denies: Chills, Fever, Night Sweats , Unintentional Wgt. Loss Eyes: reports: No Symptoms HENT: reports: No Symptoms Neck: reports: No Symptoms Cardiovascular: reports: Shortness of Breath. denies: Chest Pain, Edema, Palpitations Respiratory: reports: Cough, SOB, SOB on Exertion, Wheezing. denies: Hemoptysis Gastrointestinal: reports: No Symptoms Genitourinary: reports: No Symptoms Breasts: reports: No Symptoms Reported Musculoskeletal: reports: No Symptoms Integumentary: reports: No Symptoms Neurological: reports: No Symptoms Endocrine: reports: No Symptoms Hematology/Lymphatic: reports: No Symptoms Psychiatric: reports: No Symptoms Physical Exam Vital Sings: Vital Signs Temperature 97.4 F L 09/26/16 09:51 Pulse Rate 89 09/26/16 09:51 Respiratory Rate 18 09/26/16 09:51 Blood Pressure 142/79 09/26/16 09:51 O2 Sat by Pulse Oximetry (%) 98 09/26/16 09:00 Constitutional: Yes: No Distress, Calm Eyes: Yes: Conjunctiva Clear, EOM Intact HENT: Yes: Atraumatic, Normocephalic Neck: Yes: Supple, Trachea Midline Cardiovascular: Yes: Regular Rate and Rhythm Respiratory: Yes: Cough, On Nasal O2, Rhonchi, SOB, Tachypnea, Wheezes. No: Accessory Muscle Use, Rales, Stridor ...Inspection: Yes: WNL ...Clubbing: No Gastrointestinal: Yes: Normal Bowel Sounds, Soft Renal/: Yes: WNL Musculoskeletal: Yes: WNL Extremities: Yes: WNL Edema: No Peripheral Pulses WNL: Yes Integumentary: Yes: WNL Neurological: Yes: WNL, Alert, Oriented ...Motor Strength: WNL Psychiatric: Yes: WNL, Alert, Oriented Labs: CBC, BMP 09/26/16 06:35 09/26/16 06:35 Imaging - Results Chest X-ray: Report Reviewed, Image Reviewed Problem List - Problems (1) Acute bronchospasm Code(s): J98.01 - ACUTE BRONCHOSPASM (2) Cocaine dependence, uncomplicated Code(s): F14.20 - COCAINE DEPENDENCE, UNCOMPLICATED (3) Nicotine dependence Code(s): F17.200 - NICOTINE DEPENDENCE, UNSPECIFIED, UNCOMPLICATED Qualifiers : Nicotine product type: cigarettes Substance use status: in withdrawal Qualified Code(s): F17.213 - Nicotine dependence, cigarettes, with withdrawal (4) Opiate dependence, continuous Code(s): F11.20 - OPIOID DEPENDENCE, UNCOMPLICATED (5) Smoker Code(s): F17.200 - NICOTINE DEPENDENCE, UNSPECIFIED, UNCOMPLICATED (6) Acute exacerbation of chronic obstructive pulmonary disease (COPD) Code(s): J44.1 - CHRONIC OBSTRUCTIVE PULMONARY DISEASE W (ACUTE) EXACERBATION Assessment/Plan Medrol Symbicort BD TX O2 as needed No smoking counseled Outpatient PFTs Noted empiric Rocephin -> would D/C tomorrow if clinically improved Will follow Thank you. Dr Grover
[2016-09-26] MEDS: ALBUTEROL SO4 0.083% IH SOL 2.5 MG/3 ML VIAL.NEB. NEB SCH ×2 (14:40→21:55)
[2016-09-26] MEDS: diazePAM 5 MG TABLET PO PRN ×2 (20:01→23:46)
--- NOTE | 2016-09-26 20:32 | PN ---
Progress Note, Physician History of Present Illness: No new complaints - Current Medication List Current Medications: Active Medications Albuterol Sulfate (Ventolin 0.083% Nebulizer Soln -) 1 amp NEB TID [facility] Last Admin: 09/26/16 14:40 Dose: 1 amp Albuterol/Ipratropium (Duoneb -) 1 amp NEB Q6H PRN PRN Reason: SHORTNESS OF BREATH Budesonide/Formoterol Fumarate (Symbicort 160/4.5mcg -) 1 puff IH BID [facility] Last Admin: 09/26/16 12:08 Dose: 1 puff Ceftriaxone Sodium (Rocephin 1gm Ivpb (Pre-Docked)) 1 gm IVPB DAILY [facility] Last Admin: 09/26/16 20:20 Dose: Not Given Diazepam (Valium -) 10 mg PO Q4H PRN PRN Reason: WITHDRAWAL(CONT SUBST) Stop: 09/29/16 09:35 Last Admin: 09/26/16 20:01 Dose: 10 mg Heparin Sodium (Porcine) (Heparin -) 5,000 unit SQ BID [facility] Last Admin: 09/26/16 09:57 Dose: 5,000 unit Dextrose/Sodium Chloride (D5-1/2ns -) 1,000 mls @ 75 mls/hr IV ASDIR [facility] Last Admin: 09/26/16 18:02 Dose: 75 mls/hr Methadone HCl (Dolophine -) 10 mg PO ONCE ONE Stop: 09/29/16 10:01 Methadone HCl (Dolophine -) 15 mg PO ONCE ONE Stop: 09/27/16 10:01 Methadone HCl (Dolophine -) 15 mg PO ONCE ONE Stop: 09/28/16 10:01 Methadone HCl (Dolophine -) 5 mg PO ONCE@0600 ONE Stop: 09/30/16 06:01 Methylprednisolone Sodium Succinate (Solu-Medrol -) 40 mg IVPB Q8H-IV [facility] Last Admin: 09/26/16 18:10 Dose: 40 mg Montelukast Sodium (Singulair -) 10 mg PO HS [facility] Ondansetron HCl (Zofran Injection) 4 mg IVPB Q8H PRN PRN Reason: NAUSEA - Objective Vital Signs: Vital Signs Temperature 97.5 F L 09/26/16 14:15 Pulse Rate 84 09/26/16 14:15 Respiratory Rate 18 09/26/16 14:15 Blood Pressure 140/81 09/26/16 14:15 O2 Sat by Pulse Oximetry (%) 98 09/26/16 09:00 Constitutional: Yes: Well Nourished Neck: Yes: Supple Cardiovascular: Yes: WNL, Regular Rate and Rhythm Respiratory: Yes: Wheezes Gastrointestinal: Yes: WNL, Normal Bowel Sounds, Soft Labs: CBC, BMP 09/26/16 06:35 09/26/16 06:35 Problem List - Problems (1) Acute asthma exacerbation Assessment/Plan: Cont IV steroids Cont IV ceftriaxone Cont inhalers/nebulizer Code(s): J45.901 - UNSPECIFIED ASTHMA WITH (ACUTE) EXACERBATION Qualifiers: Asthma severity: mild intermittent Qualified Code(s): J45.21 - Mild intermittent asthma with (acute) exacerbation (2) Opioid dependence with withdrawal Assessment/Plan: Pt on methadone taper Code(s): 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 (3) Smoker Code(s): F17.200 - NICOTINE DEPENDENCE, UNSPECIFIED, UNCOMPLICATED (4) Cocaine dependence Code(s): F14.20 - COCAINE DEPENDENCE, UNCOMPLICATED Qualifiers: Substance use status: uncomplicated Qualified Code(s): F14.20 - Cocaine dependence, uncomplicated
[2016-09-26] MEDS ORDERED: PT OWN MED DRAWER 7, Y5N ONE (21:47)
[2016-09-26] MEDS ORDERED: MONTELUKAST NA 10 MG TABLET PO SCH (22:00)
[2016-09-27] MEDS: methylPREDNISolone NA SUCC 40 MG/1 ML VIAL IVPB SCH ×2 (01:22→09:09)
[2016-09-27] MEDS: ALBUTEROL SO4 0.083% IH SOL 2.5 MG/3 ML VIAL.NEB. NEB SCH ×2 (06:45→13:48)
[2016-09-27] MEDS: cefTRIAXone 1 GM/50 ML BAG (PRE-DOCKED) IVPB SCH (09:09)
[2016-09-27] MEDS: diazePAM 5 MG TABLET PO PRN ×2 (09:10→15:00)
[2016-09-27] MEDS: HEPARIN NA (PORCINE) 5,000 UNITS/ML 1ML VIAL SQ SCH (09:11)
[2016-09-27] MEDS: BUDESONIDE/FORMETEROL FUMARATE 160/4.5 mcg INHALER IH SCH (09:11)
[2016-09-27] MEDS ORDERED: METHADONE HCL 5 MG TABLET PO ONE (10:00)
--- NOTE | 2016-09-27 14:07 | PN ---
Progress Note, Physician History of Present Illness: pulmonary alert ,feeling better less dysneic - Current Medication List Current Medications: Active Medications Albuterol Sulfate (Ventolin 0.083% Nebulizer Soln -) 1 amp NEB TID [facility] Last Admin: 09/27/16 13:48 Dose: Not Given Albuterol/Ipratropium (Duoneb -) 1 amp NEB Q6H PRN PRN Reason: SHORTNESS OF BREATH Budesonide/Formoterol Fumarate (Symbicort 160/4.5mcg -) 1 puff IH BID [facility] Last Admin: 09/27/16 09:11 Dose: 1 puff Ceftriaxone Sodium (Rocephin 1gm Ivpb (Pre-Docked)) 1 gm IVPB DAILY [facility] Last Admin: 09/27/16 09:09 Dose: 1 gm Diazepam (Valium -) 10 mg PO Q4H PRN PRN Reason: WITHDRAWAL(CONT SUBST) Stop: 09/29/16 09:35 Last Admin: 09/27/16 09:10 Dose: 10 mg Heparin Sodium (Porcine) (Heparin -) 5,000 unit SQ BID [facility] Last Admin: 09/27/16 09:11 Dose: 5,000 unit Methadone HCl (Dolophine -) 10 mg PO ONCE ONE Stop: 09/29/16 10:01 Methadone HCl (Dolophine -) 15 mg PO ONCE ONE Stop: 09/28/16 10:01 Methadone HCl (Dolophine -) 5 mg PO ONCE@0600 ONE Stop: 09/30/16 06:01 Methylprednisolone Sodium Succinate (Solu-Medrol -) 40 mg IVPB Q8H-IV [facility] Last Admin: 09/27/16 09:09 Dose: 40 mg Montelukast Sodium (Singulair -) 10 mg PO HS [facility] Last Admin: 09/26/16 21:48 Dose: 10 mg Ondansetron HCl (Zofran Injection) 4 mg IVPB Q8H PRN PRN Reason: NAUSEA - Objective Vital Signs: Vital Signs Temperature 97.5 F L 09/27/16 06:37 Pulse Rate 89 09/27/16 10:00 Respiratory Rate 18 09/27/16 10:00 Blood Pressure 129/78 09/27/16 10:00 O2 Sat by Pulse Oximetry (%) 98 09/26/16 21:00 Constitutional: Yes: Well Nourished, Calm HENT: Yes: WNL Neck: Yes: WNL Cardiovascular: Yes: Regular Rate and Rhythm, S1, S2 Respiratory: Yes: Wheezes (FEW SCATTERED WHEEZES) Gastrointestinal: Yes: WNL Extremities: Yes: WNL Edema: No Labs: CBC, BMP Assessment/Plan Problem List - Problems (1) Acute bronchospasm Code(s): J98.01 - ACUTE BRONCHOSPASM (2) Cocaine dependence, uncomplicated Code(s): F14.20 - COCAINE DEPENDENCE, UNCOMPLICATED (3) Nicotine dependence Code(s): F17.200 - NICOTINE DEPENDENCE, UNSPECIFIED, UNCOMPLICATED Qualifiers : Nicotine product type: cigarettes Substance use status: in withdrawal Qualified Code(s): F17.213 - Nicotine dependence, cigarettes, with withdrawal (4) Opiate dependence, continuous Code(s): F11.20 - OPIOID DEPENDENCE, UNCOMPLICATED (5) Smoker Code(s): F17.200 - NICOTINE DEPENDENCE, UNSPECIFIED, UNCOMPLICATED (6) Acute exacerbation of chronic obstructive pulmonary disease (COPD) Code(s): J44.1 - CHRONIC OBSTRUCTIVE PULMONARY DISEASE W (ACUTE) EXACERBATION Assessment/Plan Medrol taper Symbicort BD TX O2 as needed No smoking counseled Outpatient PFTs DR THOMPSON
[2016-09-27] MEDS ORDERED: BUDESONIDE/FORMETEROL FUMARATE 160/4.5 mcg INHALER IH SCH (14:10)
[2016-09-27 14:20] VITALS: BP 122/72; PULSE 95; TEMP 97.8
[2016-09-27] MEDS ORDERED: methylPREDNISolone NA SUCC 40 MG/1 ML VIAL IVPB SCH (22:00)
[2016-09-28] MEDS ORDERED: METHADONE HCL 5 MG TABLET PO ONE (10:00)
[2016-09-29] MEDS ORDERED: METHADONE HCL 10 MG TABLET PO ONE (10:00)
[2016-09-30] MEDS ORDERED: METHADONE HCL 5 MG TABLET PO ONE (06:00)
== END 2016-09-27 17:01 | disposition left against medical advice (07) | DRG 140 ==
LOC: JER 08:24 → JERBED 12:13 → J6S 16:28
PROVIDERS: ADMIT Internal Medicine; ATTEND Internal Medicine
PROC: HZ81ZZZ Medication Management for Substance Abuse Treatment, Methadone Maintenance (ICD-10-PCS; principal; 2016-09-26)
DX: J44.1 Chronic obstructive pulmonary disease with (acute) exacerbation (principal); F11.23 Opioid dependence with withdrawal; F14.20 Cocaine dependence, uncomplicated; F17.210 Nicotine dependence, cigarettes, uncomplicated; J45.21 Mild intermittent asthma with (acute) exacerbation
CPT/HCPCS: 36415; 71010-TC; 80053; 80307; 85025; 93005; 93010; 94640; 99281-25; J1644

== ENCOUNTER 2016-10-18 12:16 | Inpatient (IN) | payer OTHER ==
[2016-10-18 12:20] VITALS: BMI 28.8
--- NOTE | 2016-10-18 12:54 | PDOC ---
History of Present Illness - General History Source: Patient Exam Limitations: No Limitations - History of Present Illness Initial Comments: CHIEF COMPLAINT: 45 y/o afebrile male with PMH asthma and heroin abuse, well known to this ER for multiple visits for asthma exacerbation after heroin use c/ o asthma exacerbation. HISTORY OF PRESENT ILLNESS: The patient states the last time he used heroin was last night. He states his symptoms started this morning. The patient denies f/c, productive cough, n/v/d, CP, abd pain, back pain. He has been admitted for his asthma but never intubated. Vital signs on arrival are notable for pulse of 101 and RR of 28. REVIEW OF SYSTEMS: GENERAL/CONSTITUTIONAL: No fever/chills. No weakness. No weight change. HEAD, EYES, EARS, NOSE AND THROAT: No change in vision. No ear pain or discharge. No sore throat. CARDIOVASCULAR: +SOB. No chest pain. RESPIRATORY: +dry cough and wheezing. No hemoptysis. GASTROINTESTINAL: No abd pain, nausea, vomiting, diarrhea. GENITOURINARY: No dysuria, frequency, or change in urination. MUSCULOSKELETAL: No joint or muscle swelling or pain. No neck or back pain. SKIN: No rash or easy bruising. NEUROLOGIC: No headache, vertigo, loss of consciousness, or loss of sensation. PHYSICAL EXAM: GENERAL: The patient is awake, alert, and fully oriented, in moderate respiratory distress. HEAD: Normal with no signs of trauma. ENT: Pupils equal, round and reactive to light, extraocular movements intact, sclera anicteric, conjunctiva clear. Neck supple. LUNGS: Diffuse expiratory wheezing across all lung hart with rhonchi at bases. Rapid respirations. CV: Rapid rate/regular rhythm, S1/S2, no MRG. Cap refill < 2 sec. ABDOMEN: Soft, non-distended, non-tender even to deep palpation, no hepatomegaly or splenomegaly, no masses. EXTREMITIES: Normal range of motion, no edema. NEUROLOGICAL: Normal speech, normal gait. CN II-XII grossly intact. PSYCH: Normal mood, normal affect. SKIN: Warm, dry, normal turgor, no rashes or lesions noted. <Mariana Ernst - Last Filed: 10/18/16 16:48> <Flavia Lopez - Last Filed: 10/24/16 07:27> - General Chief Complaint: Respiratory Stated Complaint: SOB Time Seen by Provider: 10/18/16 12:49 Past History - Past Medical History Anemia: No Asthma: Yes Cancer: No Cardiac Disorders: No CVA: No COPD: No CHF: No Dementia: No Diabetes: No GI Disorders: No Disorders: No HTN: No Hypercholesterolemia: No Kidney Stones: No Liver Disease: No Suicide Attempt (Hx): No (DENIES. PATIENT DENIES CURRENT SI / HI.) Seizures: No Thyroid Disease: No - Surgical History Abdominal Surgery: No Appendectomy: No Cardiac Surgery: No Cholecystectomy: No Lung Surgery: No Neurologic Surgery: No Orthopedic Surgery: No - Reproductive History Testicular Surgery: No - Immunization History Td Vaccination: Yes Immunization Up to Date: Yes - Psycho/Social/Smoking Cessation Hx Anxiety: No Suicidal Ideation: No Smoking Status: Yes Smoking History: Never smoked Years of Tobacco Use: 40 Have you smoked in the past 12 months: Yes Number of Cigarettes Smoked Daily: 10 If you are a former smoker, when did you quit?: 4 MO AGO Cigars Per Day: 0 'Breaking Loose' booklet given: 09/25/16 Hx Alcohol Use: No Drug/Substance Use Hx: No Substance Use Type: None Hx Substance Use Treatment: Yes (Previous Detox admissions at [facility] <Mariana Ernst - Last Filed: 10/18/16 16:48> <Flavia Lopez - Last Filed: 10/24/16 07:27> - Past Medical History Allergies/Adverse Reactions: Allergies Allergy/AdvReac Type Severity Reaction Status Date / Time No Known Allergies Allergy Verified 10/18/16 13:39 Home Medications: Ambulatory Orders Albuterol Sulfate [Proventil HFA Inhaler -] 1 - 2 inh PO QID #1 inhaler Montelukast Na [Singulair -] 10 mg PO HS #30 tablet 07/29/16 Budesonide/Formeterol Fumarate [SYMBICORT 160/4.5mcg -] 1 inh PO BID #1 cannister 08/14/16 Respiratory Specific PMHX - Complaint Specific PMHX TB (Tuberculosis): No <Mariana Ernst - Last Filed: 10/18/16 16:48> *Physical Exam - Vital Signs Last Vital Signs Temp Pulse Resp BP Pulse Ox 97.8 F 101 H 28 H 162/100 96 10/18/16 12:18 10/18/16 12:18 10/18/16 12:18 10/18/16 12:18 10/18/16 12:18 <Mariana Ernst - Last Filed: 10/18/16 16:48> - Vital Signs Last Vital Signs Temp Pulse Resp BP Pulse Ox 97.9 F 80 18 112/70 96 10/21/16 06:20 10/21/16 09:00 10/21/16 09:00 10/21/16 09:00 10/21/16 09:00 <Flavia Lopez - Last Filed: 10/24/16 07:27> Heart Score/ECG Review - ECG Intrepretation Comment:: Twelve-lead EKG was performed and reviewed by Dr. Lopez. There is normal sinus rhythm with marked sinus arrhythmia. The axis is normal. The intervals are normal. There are no ST or T wave abnormalities. Impression: Otherwise normal twelve-lead EKG <Mariana Ernst - Last Filed: 10/18/16 16:48> ED Treatment Course - LABORATORY CBC & Chemistry Diagram: 10/18/16 13:34 10/18/16 13:34 <Mariana Ernst - Last Filed: 10/18/16 16:48> - LABORATORY CBC & Chemistry Diagram: 10/18/16 13:34 10/18/16 13:34 - ADDITIONAL ORDERS Additional order review: 10/18/16 13:34 RBC 4.91 MCV 79.5 L MCHC 32.6 RDW 15.7 MPV 8.1 Neutrophils % 73.5 Lymphocytes % 15.0 Monocytes % 4.6 Eosinophils % 6.4 H D Basophils % 0.5 - Medications Given in the ED: ED Medications Discontinued Medications Generic Name Dose Route Start Last Admin Trade Name Freq PRN Reason Stop Dose Admin Albuterol/Ipratropium 1 amp 10/18/16 13:15 10/18/16 14:03 Duoneb - NEB 10/18/16 14:01 1 amp Q15M VARSHA Administration Albuterol/Ipratropium 1 amp 10/19/16 01:31 10/19/16 18:14 Duoneb - NEB 1 amp Q6H PRN Administration SHORTNESS OF BREATH Albuterol/Ipratropium 1 amp 10/19/16 04:46 10/19/16 04:56 Duoneb - NEB 10/19/16 04:47 1 amp ONCE ONE Administration Albuterol/Ipratropium 1 amp 10/20/16 12:00 10/21/16 11:28 Duoneb - NEB Not Given Q6HPO VARSHA Budesonide/Formoterol Fumarate 1 puff 10/19/16 01:30 10/21/16 09:04 Symbicort 160/4.5mcg - IH 1 puff BID VARSHA Administration Diazepam 5 mg 10/19/16 05:05 10/19/16 05:47 Valium - PO 10/19/16 05:06 5 mg ONCE ONE Administration Diazepam 10 mg 10/19/16 09:24 10/21/16 08:48 Valium - PO 10/22/16 09:23 10 mg Q4H PRN Administration WITHDRAWAL(CONT SUBST) Diphenhydramine HCl 50 mg 10/19/16 01:38 10/20/16 22:19 Benadryl - PO 50 mg HS PRN Administration INSOMNIA Heparin Sodium (Porcine) 5,000 unit 10/19/16 10:00 10/21/16 09:03 Heparin - SQ 5,000 unit BID VARSHA Administration Levofloxacin 100 mls @ 100 mls/hr 10/19/16 10:00 10/21/16 09:48 Levaquin 500 Mg Premixed Ivpb - IVPB 100 mls/hr DAILY VARSHA Administration Lorazepam 2 mg 10/19/16 04:50 10/19/16 06:08 Ativan - PO 10/19/16 04:51 Not Given ONCE ONE Methadone HCl 20 mg 10/19/16 04:56 10/19/16 06:08 Dolophine - PO 10/19/16 04:57 Not Given ONCE ONE Methadone HCl 10 mg 10/19/16 05:04 10/19/16 05:47 Dolophine - PO 10/19/16 05:05 10 mg ONCE ONE Administration Methadone HCl 10 mg 10/21/16 10:00 10/21/16 10:43 Dolophine - PO 10/21/16 10:01 10 mg ONCE ONE Administration Methadone HCl 15 mg 10/20/16 10:00 10/20/16 09:45 Dolophine - PO 10/20/16 10:01 15 mg ONCE ONE Administration Methadone HCl 20 mg 10/19/16 11:15 10/19/16 11:21 Dolophine - PO 10/19/16 11:16 20 mg ONCE ONE Administration Methylprednisolone Sodium Succinate 125 mg 10/18/16 13:15 10/18/16 13:41 Solu-Medrol - IVPB 10/18/16 13:16 125 mg ONCE ONE Administration Methylprednisolone Sodium Succinate 40 mg 10/19/16 02:00 10/21/16 09:03 Solu-Medrol - IVPB 40 mg Q8H-IV VARSHA Administration Montelukast Sodium 10 mg 10/19/16 22:00 10/20/16 22:18 Singulair - PO 10 mg HS VARSHA Administration <Flavia Lopez - Last Filed: 10/24/16 07:27> Medical Decision Making - Medical Decision Making A/P: 45 y/o male with asthma exacerbation. The patient has been seen here multiple for similar symptoms, always after using heroin. Plan is as follows: 1. Labs 2. CXR 3. Duoneb 4. IV steroids Labs unremarkable. CXR IMPRESSION: No acute disease in the chest. The patient was given all of his results. he states he feels mildly better but is still very short of breath. His repeat lung exam reveals continued diffuse expiratory wheezing across all lung hart. The patient will be admitted for serial nebs. Will admit for serial nebs. Placed call to Dr. Diaz. Dr. Diaz accepts admission for asthma exacerbation. <Mariana Ernst - Last Filed: 10/18/16 16:48> *DC/Admit/Observation/Transfer - Discharge Dispostion Admit: Yes <Mariana Ernst - Last Filed: 10/18/16 16:48> - Attestations Physician Attestion: I reviewed the case with the mid-level practitioner and agree with the mid- level practitioner's assessment, diagnosis and disposition. <Flavia Lopez - Last Filed: 10/24/16 07:27> Diagnosis at time of Disposition: Asthma exacerbation - Discharge Dispostion Disposition: AGAINST MEDICAL ADVICE Condition at time of disposition: Fair - Referrals
[2016-10-18] MEDS: ALBUTEROL SO4 2.5/IPRATROPIUM 0.5 INH SOL 3 ML VIAL.NEB. NEB SCH ×4 (13:10→14:03)
[2016-10-18] MEDS ORDERED: methylPREDNISolone NA SUCC 125 MG/2 ML VIAL IVPB ONE (13:15)
[2016-10-18] MEDS ORDERED: methylPREDNISolone NA SUCC 125 MG/2 ML VIAL ONE (13:33)
[2016-10-18 13:44] LABS: BASOPHIL 0.5 % (0-2.0); EOSINOPHIL 6.4 % (0-4.5); MCH 25.9 pg (25.7-33.7); MCHC 32.6 g/dl (32.0-35.9); MEAN CELL VOLUME 79.5 fl (80-96); MEAN PLT VOLUME 8.1 fl (7.5-11.1); NEUTROPHILS 73.5 % (42.8-82.8); PLATELET COUNT 320 K/MM3 (134-434); RDW 15.7 % (11.9-15.9); WHITE BLOOD COUNT 9.2 K/mm3 (4.0-10.0)
[2016-10-18 14:14] LABS: ALBUMIN 3.7 g/dl (3.4-5.0); ANION GAP 8 (8-16); CO2 29 mmol/L (21-32); CREATININE 0.8 mg/dL (0.7-1.3); GLUCOSE,RANDOM 111 mg/dL (74-106); SGOT/AST 16 U/L (15-37); SGPT/ALT 16 U/L (12-78)
[2016-10-18 14:18] LABS: ALK PHOS 99 U/L (45-117); BILIRUBIN,TOTAL 0.5 mg/dL (0.2-1.0); TOT PROT 7.1 g/dl (6.4-8.2); TROPONIN I < 0.02 ng/ml (0.00-0.05)
--- NOTE | 2016-10-19 01:26 | HP ---
Admitting History and Physical - Admission History of Present Illness: Pt is a 45 y/o male with PMH significant for asthma and heroin abuse. Pt had used heroin the night prior to coming to the ER. Pt has had multiple admissions for asthma exacerbation after heroin use. He states his symptoms started this morning. Pt presented to the ER w/ SOB and wheezing. Pt denies any fever/ chills and has an intermittent cough. In the ER pt's CXR was unremarkable. - Past Medical History Pulmonary: Yes: Asthma Psych: Yes: Addictions (heroin) - Past Surgical History Past Surgical History: Yes: None - Smoking History Smoking history: Never smoked Have you smoked in the past 12 months: Yes Aproximately how many cigarettes per day: 10 If you are a former smoker, when did you quit?: 4 MO AGO - Alcohol/Substance Use Hx Alcohol Use: No History of Substance Use: reports: Heroin - Social History ADL: Independent Occupation: Unemployed History of Recent Travel: No Home Medications - Allergies Allergies/Adverse Reactions: Allergies Allergy/AdvReac Type Severity Reaction Status Date / Time No Known Allergies Allergy Verified 10/18/16 13:39 - Home Medications Home Medications: Ambulatory Orders Albuterol Sulfate [Proventil HFA Inhaler -] 1 - 2 inh PO QID #1 inhaler Montelukast Na [Singulair -] 10 mg PO HS #30 tablet 07/29/16 Budesonide/Formeterol Fumarate [SYMBICORT 160/4.5mcg -] 1 inh PO BID #1 cannister 08/14/16 Family Disease History - Family Disease History Family History: Unremarkable Family Disease History: Diabetes: Mother, CA: Father (.) Review of Systems - Review of Systems Constitutional: reports: Loss of Appetite, Weakness Eyes: reports: No Symptoms HENT: reports: No Symptoms Neck: reports: No Symptoms Respiratory: reports: Cough, SOB, Wheezing Gastrointestinal: reports: No Symptoms Musculoskeletal: reports: No Symptoms Physical Examination Vital Signs: Vital Signs Temperature 98.2 F 10/18/16 18:00 Pulse Rate 101 H 10/18/16 19:55 Respiratory Rate 20 10/18/16 19:55 Blood Pressure 127/65 10/18/16 19:55 O2 Sat by Pulse Oximetry (%) 97 10/18/16 18:00 Constitutional: Yes: Well Nourished, No Distress HENT: Yes: WNL, Atraumatic, Normocephalic Neck: Yes: WNL, Supple, Trachea Midline Cardiovascular: Yes: WNL, Regular Rate and Rhythm Respiratory: Yes: Wheezes Gastrointestinal: Yes: WNL, Normal Bowel Sounds Musculoskeletal: Yes: WNL Extremities: Yes: WNL Neurological: Yes: WNL, Alert, Oriented ...Motor Strength: WNL Problem List - Problems (1) Asthma exacerbation Assessment/Plan: Cont IV levaquin Cont nebulizers Cont IV solumedrol and taper Pulmonary consult Code(s): J45.901 - UNSPECIFIED ASTHMA WITH (ACUTE) EXACERBATION (2) Heroin withdrawal Assessment/Plan: Detox for withdrawal as per Dr Oconnor Cont methadone Pt aware that his asthma exacerbation is directly related to his heroin use Code(s): 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 (3) Heroin abuse Code(s): F11.10 - OPIOID ABUSE, UNCOMPLICATED
[2016-10-19] MEDS ORDERED: ALBUTEROL SO4 2.5/IPRATROPIUM 0.5 INH SOL 3 ML VIAL.NEB. NEB PRN (01:31)
[2016-10-19] MEDS: BUDESONIDE/FORMETEROL FUMARATE 160/4.5 mcg INHALER IH SCH ×3 (02:11→22:33)
[2016-10-19] MEDS: diphenhydrAMINE HCL 25 MG CAPSULE (FP) PO PRN (02:12)
[2016-10-19] MEDS: methylPREDNISolone NA SUCC 40 MG/1 ML VIAL IVPB SCH ×3 (02:13→18:46)
[2016-10-19] MEDS ORDERED: ALBUTEROL SO4 2.5/IPRATROPIUM 0.5 INH SOL 3 ML VIAL.NEB. NEB ONE (04:46)
[2016-10-19] MEDS ORDERED: LORazepam 1 MG TABLET PO ONE (04:50)
[2016-10-19] MEDS ORDERED: diazePAM 5 MG TABLET PO PRN (04:56)
[2016-10-19] MEDS ORDERED: METHADONE HCL 10 MG TABLET (FOR DETOX USE ONLY) PO ONE ×2 (04:56→10:00)
[2016-10-19] MEDS ORDERED: METHADONE HCL 10 MG TABLET PO ONE ×2 (05:04→11:15)
[2016-10-19] MEDS ORDERED: diazePAM 5 MG TABLET PO ONE (05:05)
--- NOTE | 2016-10-19 05:13 | HOSP ---
Physical Examination Vital Signs: Vital Signs Temperature 97.8 F 10/19/16 02:19 Pulse Rate 104 H 10/19/16 03:36 Respiratory Rate 20 10/19/16 03:36 Blood Pressure 130/76 10/19/16 03:36 O2 Sat by Pulse Oximetry (%) 96 10/18/16 19:30 Hospitalist Encounter Assessment: Called by RN that patient vomited 1x, has tachycardia and rigors. PE: Vitals: SpO2 95% on RA, HR 104, BP 130/76, RR 20, T 97.8 Heart: tachycardic, regular rhythm, normal s1/s2 Lungs: b/l expiratory wheezing A/P: 45yo M admitted for asthma exacerbation who last had heroine 24h ago and is currently having withdrawal symptoms. #heroine withdrawal -Methadone [Dolophine -] 10 mg PO ONCE ONE -Diazepam [Valium -] 5 mg PO ONCE ONE -EKG [ELECTROCARDIOGRAM] [CARD] Routine for 7/6 AM #asthma exacerbation -Duonebs 1 am ONCE Cadence Flanagan MD Visit type - Emergency Visit Emergency Visit: No - New Patient This patient is new to me today: Yes Date on this admission: 10/19/16 - Critical Care Critical Care patient: No
--- NOTE | 2016-10-19 09:38 | CONSULT ---
Consult Detox [facility] Reason for Current Admission/Consult: Heroin withdrawal sx. Referred by:: Flavia Diaz MD - History History of Present Illness: 45 y/o man with a long hx. of heroin dependence is admitted with exacerbation of asthma. In the past I have discussed with patient the fact that inhalation of heroin will exacerbate asthma and may result in from broncospam. Pt. usually acknowledges what I say but ignores it completely. 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 - History Source History Provided By: Patient, Medical Record - Alcohol/Substance Use Hx Alcohol Use: No Hx Substance Use: Yes - Current Drug/Alcohol Use Heroin Route: Inhalation Frequency: Daily Amount used: 6 bags Age of first use: 40 Date of Last Use: 10/18/16 - Past Medical History Pulmonary: Yes: Asthma Psych: Yes: Addictions (heroin) - Past Surgical History Past Surgical History: Yes: None - Significant Medical Findings: Laboratory Last Values WBC 9.2 K/mm3 (4.0-10.0) D 10/18/16 13:34 RBC 4.91 M/mm3 (4.00-5.60) 10/18/16 13:34 Hgb 12.7 GM/dL (11.7-16.9) 10/18/16 13:34 Hct 39.1 % (35.4-49) 10/18/16 13:34 MCV 79.5 fl (80-96) L 10/18/16 13:34 MCHC 32.6 g/dl (32.0-35.9) 10/18/16 13:34 RDW 15.7 % (11.9-15.9) 10/18/16 13:34 Plt Count 320 K/MM3 (134-434) 10/18/16 13:34 MPV 8.1 fl (7.5-11.1) 10/18/16 13:34 Neutrophils % 73.5 % (42.8-82.8) 10/18/16 13:34 Lymphocytes % 15.0 % (8-40) 10/18/16 13:34 Monocytes % 4.6 % (3.8-10.2) 10/18/16 13:34 Eosinophils % 6.4 % (0-4.5) H D 10/18/16 13:34 Basophils % 0.5 % (0-2.0) 10/18/16 13:34 Sodium 140 mmol/L (136-145) 10/18/16 13:34 Potassium 4.7 mmol/L (3.5-5.1) 10/18/16 13:34 Chloride 103 mmol/L (98-107) 10/18/16 13:34 Carbon Dioxide 29 mmol/L (21-32) 10/18/16 13:34 Anion Gap 8 (8-16) 10/18/16 13:34 BUN 10 mg/dL (7-18) D 10/18/16 13:34 Creatinine 0.8 mg/dL (0.7-1.3) 10/18/16 13:34 Creat Clearance w eGFR > 60 (>60) 10/18/16 13:34 Random Glucose 111 mg/dL (74-106) H 10/18/16 13:34 Calcium 9.0 mg/dL (8.5-10.1) 10/18/16 13:34 Total Bilirubin 0.5 mg/dL (0.2-1.0) D 10/18/16 13:34 AST 16 U/L (15-37) D 10/18/16 13:34 ALT 16 U/L (12-78) 10/18/16 13:34 Alkaline Phosphatase 99 U/L (45-117) D 10/18/16 13:34 Creatine Kinase 59 IU/L (39-308) 10/18/16 13:34 Troponin I < 0.02 ng/ml (0.00-0.05) 10/18/16 13:34 Total Protein 7.1 g/dl (6.4-8.2) 10/18/16 13:34 Albumin 3.7 g/dl (3.4-5.0) 10/18/16 13:34 Opiates Screen Positive ng/ml (SVCEYQ=383) 10/19/16 17:40 Methadone Screen Negative ng/ml (WJUCYS=550) 10/19/16 17:40 Barbiturate Screen Negative ng/ml (IRSLAQ=002) 10/19/16 17:40 Phencyclidine Screen Negative ng/ml (CUTOFF=25) 10/19/16 17:40 Ur Amphetamines Screen Negative ng/ml (XKTXFO=257) 10/19/16 17:40 MDMA (Ecstasy) Screen Negative ng/ml (MPRDEC=442) 10/19/16 17:40 Benzodiazepines Screen Positive ng/ml (IJTJMY=501) 10/19/16 17:40 Cocaine Screen Positive ng/ml (ITVSDK=818) 10/19/16 17:40 U Marijuana (THC) Screen Negative ng/ml (CUTOFF=50) 10/19/16 17:40 labs noted COWS - Scale Resting Pulse: 1= [place] 81-100 Sweatin=Flushed/Facial Moisture Restless Observation: 3= Extraneous Movement Pupil Size: 2= Moderately Dilated Bone or Joint Aches: 2= Severe Diffuse Aches Runny Nose/ Eye Tearin= Runny Nose/Eyes GI Upset > 30mins: 3= Vomiting/Diarrhea Tremor Observation: 2= Slight Tremor Visible Yawning Observation: 1= 1-2x During Session Anxiety or Irritability: 2=Irritable/Anxious Goose Flesh Skin: 3=Piloerection COWS Score: 23 Assessment Plan - Diagnosis (1) Opioid dependence with withdrawal Status: Acute (2) Acute asthma exacerbation Status: Acute Qualifiers: Asthma severity: mild intermittent Qualified Code(s): J45.21 - Mild intermittent asthma with (acute) exacerbation - Plan Plan: Pt. has so far refused to attend IOP - Medication Detox Regimen/Protocol: Methadone
[2016-10-19] MEDS: HEPARIN NA (PORCINE) 5,000 UNITS/ML 1ML VIAL SQ SCH ×2 (11:03→22:33)
[2016-10-19] MEDS: LEVOFLOXACIN 500 MG IVPB 100 ML IVPB SCH (11:03)
--- NOTE | 2016-10-19 11:21 | EKG ---
Test Reason : Blood Pressure : / mmHG Vent. Rate : 082 BPM Atrial Rate : 082 BPM P-R Int : 170 ms QRS Dur : 086 ms QT Int : 360 ms P-R-T Axes : 042 032 047 degrees QTc Int : 420 ms SINUS RHYTHM WITH MARKED SINUS ARRHYTHMIA OTHERWISE NORMAL ECG WHEN COMPARED WITH ECG OF 25-SEP-2016 10:12, NO SIGNIFICANT CHANGE WAS FOUND Confirmed by TREVOR LUNDBERG MD ([id number]) on 10/19/2016 11:21:01 AM Referred By: Confirmed By:TREVOR LUNDBERG MD
--- NOTE | 2016-10-19 15:50 | EKG ---
Test Reason : Blood Pressure : / mmHG Vent. Rate : 107 BPM Atrial Rate : 107 BPM P-R Int : 170 ms QRS Dur : 082 ms QT Int : 346 ms P-R-T Axes : 069 032 051 degrees QTc Int : 461 ms SINUS TACHYCARDIA OTHERWISE NORMAL ECG WHEN COMPARED WITH ECG OF 18-OCT-2016 16:37, NO SIGNIFICANT CHANGE WAS FOUND Confirmed by TREVOR LUNDBERG MD ([id number]) on 10/19/2016 3:50:14 PM Referred By: NILESH OVALLE Confirmed By:TREVOR LUNDBERG MD
[2016-10-19] MEDS: diazePAM 5 MG TABLET PO PRN ×2 (18:49→23:40)
[2016-10-19 19:28] LABS: URINE MARIJUANA THC NEGATIVE ng/ml (CUTOFF=50)
[2016-10-19] MEDS ORDERED: PT OWN MED DRAWER 7, Y5N ONE (21:14)
[2016-10-19] MEDS: MONTELUKAST NA 10 MG TABLET PO SCH (22:32)
[2016-10-20] MEDS: methylPREDNISolone NA SUCC 40 MG/1 ML VIAL IVPB SCH ×3 (01:58→17:12)
[2016-10-20] MEDS: diazePAM 5 MG TABLET PO PRN ×5 (05:05→22:18)
[2016-10-20] MEDS: HEPARIN NA (PORCINE) 5,000 UNITS/ML 1ML VIAL SQ SCH ×2 (09:45→22:17)
[2016-10-20] MEDS: BUDESONIDE/FORMETEROL FUMARATE 160/4.5 mcg INHALER IH SCH ×2 (09:46→22:19)
[2016-10-20] MEDS ORDERED: METHADONE HCL 5 MG TABLET (FOR DETOX USE ONLY) PO ONE (10:00)
[2016-10-20] MEDS ORDERED: METHADONE HCL 5 MG TABLET PO ONE (10:00)
--- NOTE | 2016-10-20 10:00 | PN ---
Physical Exam: SUBJECTIVE: Patient seen and examined at bedside. States he feels "easier to breath" when compared to yesterday. Patient denies any withdrawal symptoms. OBJECTIVE: Vital Signs 3 Period Temp Pulse Resp BP Sys/Devries Pulse Ox Last 24 Hr 97.9 F-99.0 F 84-103 17-20 112-142/56-81 96 GENERAL: The patient is awake, alert, and fully oriented, in no acute distress. EYES: PERRL, extraocular movements intact, sclera anicteric, conjunctiva clear. No ptosis. ENT: Ears normal, nares patent, oropharynx clear without exudates, moist mucous membranes. NECK: Trachea midline, full range of motion, supple. LUNGS: Breath sounds equal, clear to auscultation bilaterally, inspiratory and expiratory wheezes noted, no crackles, no accessory muscle use. Speaking in full sentences. HEART: Regular rate and rhythm, S1, S2 without murmur, rub or gallop. ABDOMEN: Soft, nontender, nondistended, normoactive bowel sounds, no guarding, no rebound, no hepatosplenomegaly, no masses. EXTREMITIES: 2+ pulses, warm, well-perfused, no edema. NEUROLOGICAL: Cranial nerves II through XII grossly intact. Normal speech, gait not observed. PSYCH: Normal mood, normal affect. Tearful when discussing drug use. SKIN: Warm, dry, normal turgor, no rashes or lesions noted. No piloerection present. Laboratory Results - last 24 hr 3 10/19/16 17:40 Opiates Screen Positive Methadone Screen Negative Barbiturate Screen Negative Phencyclidine Screen Negative Ur Amphetamines Screen Negative MDMA (Ecstasy) Screen Negative Benzodiazepines Screen Positive Cocaine Screen Positive U Marijuana (THC) Screen Negative Active Medications 3 Generic Name Dose Route Start Last Admin Trade Name Freq PRN Reason Stop Dose Admin Albuterol/Ipratropium 1 amp 10/19/16 01:31 10/19/16 18:14 Duoneb - NEB 1 amp Q6H PRN Administration SHORTNESS OF BREATH Budesonide/Formoterol Fumarate 1 puff 10/19/16 01:30 10/20/16 09:46 Symbicort 160/4.5mcg - IH 1 puff BID VARSHA Administration Diazepam 10 mg 10/19/16 09:24 10/20/16 09:19 Valium - PO 10/22/16 09:23 10 mg Q4H PRN Administration WITHDRAWAL(CONT SUBST) Diphenhydramine HCl 50 mg 10/19/16 01:38 10/19/16 02:12 Benadryl - PO 50 mg HS PRN Administration INSOMNIA Heparin Sodium (Porcine) 5,000 unit 10/19/16 10:00 10/20/16 09:45 Heparin - SQ 5,000 unit BID VARSHA Administration Levofloxacin 100 mls @ 100 mls/hr 10/19/16 10:00 10/19/16 11:03 Levaquin 500 Mg Premixed Ivpb - IVPB 100 mls/hr DAILY VARSHA Administration Methadone HCl 10 mg 10/21/16 10:00 Dolophine - PO 10/21/16 10:01 ONCE ONE Methadone HCl 15 mg 10/20/16 10:00 10/20/16 09:45 Dolophine - PO 10/20/16 10:01 15 mg ONCE ONE Administration Methadone HCl 5 mg 10/22/16 06:00 Dolophine - PO 10/22/16 06:01 ONCE@0600 ONE Methylprednisolone Sodium Succinate 40 mg 10/19/16 02:00 10/20/16 09:46 Solu-Medrol - IVPB 40 mg Q8H-IV VARSHA Administration Montelukast Sodium 10 mg 10/19/16 22:00 10/19/16 22:32 Singulair - PO 10 mg HS VARSHA Administration ASSESSMENT/PLAN: A: 45 yo man with history of asthma exacerbations provoked by intranasal drug use. Utox positive for opiates, benzos and cocaine. COWS score-1 at present. Discussion with patient regarding intranasal drug use and how it potentiates asthma exacerbations. Pt states he is ready for rehab at this time. P: 1. Asthma - Solumedrol 40 q8 - Duonebs q6 standing - Albuterol nebs q4 prn - Symbicort bid - Singulair 10mg daily - Levaquin 500mg daily - peak flow - appreciate pulm recs 2. Opiate dependance with withdrawal - Methadone taper per Anastasia - Valium 10mg po prn - serial COWS- 1 at present 3. Cocaine abuse - Valium 10mg po prn 4. F/E/N - regular diet - encourage po fluids - replete prn 5. PPX - OOB Dispo- requires inpatient care of his acute medical conditions Code Status- FULL CODE Visit type - Emergency Visit Emergency Visit: Yes ED Registration Date: 10/19/16 Care time: The patient presented to the Emergency Department on the above date and was hospitalized for further evaluation of their emergent condition. - New Patient This patient is new to me today: Yes Date on this admission: 10/20/16 - Critical Care Critical Care patient: No
[2016-10-20] MEDS ORDERED: ALBUTEROL SO4 0.083% IH SOL 2.5 MG/3 ML VIAL.NEB. NEB PRN (10:09)
[2016-10-20] MEDS: LEVOFLOXACIN 500 MG IVPB 100 ML IVPB SCH (10:43)
[2016-10-20] MEDS: ALBUTEROL SO4 2.5/IPRATROPIUM 0.5 INH SOL 3 ML VIAL.NEB. NEB SCH ×4 (11:45→23:20)
--- NOTE | 2016-10-20 12:43 | PN ---
Progress Note (short form) - Note Progress Note: PULMONARY CONSULTATION DICTATED 10/20/16 IMP ASTHMA EXACERBATION SUBSTANCE ABUSE PLAN IV STEROIDS INHALED BRONCHODILATORS O2 MONITOR PEAK FLOW SUBSTANCE ABUSE COUNSELING DR THOMPSON Problem List - Problems (1) Acute bronchospasm Code(s): J98.01 - ACUTE BRONCHOSPASM (2) Asthma exacerbation Code(s): J45.901 - UNSPECIFIED ASTHMA WITH (ACUTE) EXACERBATION (3) Opiate dependence, continuous Code(s): F11.20 - OPIOID DEPENDENCE, UNCOMPLICATED
--- NOTE | 2016-10-20 14:06 | CONS ---
DATE OF CONSULTATION: 10/20/2016 PULMONARY CONSULTATION REFERRING PHYSICIAN: Dr. Flaiva Eastman. HISTORY OF PRESENT ILLNESS: The patient is a 45-year-old white male with a past medical history of chronic asthma for approximately 7 years, history of substance abuse cocaine and multiple hospitalizations secondary to asthma exacerbation. He was admitted to [facility] with complaint of increasing shortness of breath. The patient apparently used heroin the night prior to admission and started feeling increasing shortness of breath and wheezing. Denied any fever or chills, nausea or vomiting, diaphoresis, denies any cough or hemoptysis. The patient presented to the emergency room and in the ER he was noted to be mildly tachycardic and tachypneic. He was started on inhaled bronchodilators and steroids with good response and transferred up to the floor further further management. He has never been intubated. 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 It is unsure whether or not he has worked with chemicals and fumes in the past. There is no history of hemoptysis, no weight loss or night sweats. REVIEW OF SYSTEMS: Positive cough, positive shortness of breath, positive bronchospasm, no chest pain, no palpitations, no abdominal pain. CURRENT MEDICATIONS: Include Symbicort 10/4.5, Solu-Medrol 40 mg q. 8 h, Levaquin, heparin, Valium, Albuterol, DuoNeb, Singulair, Benadryl, methadone. PHYSICAL EXAMINATION: General: The patient is a well-developed, well-nourished male, awake, alert and in no acute distress. Vitals: He is afebrile. Blood pressure is 230/56, respiratory rate 20, O2 saturation 96% on room air. HEENT: Examination is normocephalic and atraumatic. Neck: Supple. Heart: Regular with normal S1, S2. Lungs: Bilateral expiratory and inspiratory wheezes. Abdomen: Soft, bowel sounds positive. Extremities: No cyanosis or edema. LABORATORY DATA: WBC 9.2, hemoglobin 12.7, hematocrit 39.1, platelet count 320,000. BUN is 10, creatinine 0.8. Chest x-ray revealed no infiltrates or effusions. IMPRESSION: 1. Acute asthma exacerbation most likely precipitated by snorting heroin. 2. History of substance abuse. PLAN: Continue IV steroids, inhaled bronchodilators, supplemental O2 p.r.n., monitor peak flow, pulmonary function test as outpatient. Strongly advised drug rehab counseling. ANGELA THOMPSON M.D. DUTCH/[id number]
[2016-10-20] MEDS ORDERED: PT OWN MED DRAWER 7, Y5N ONE ×2 (16:36→20:00)
[2016-10-20] MEDS: MONTELUKAST NA 10 MG TABLET PO SCH (22:18)
[2016-10-20] MEDS: diphenhydrAMINE HCL 25 MG CAPSULE (FP) PO PRN (22:19)
[2016-10-21] MEDS: methylPREDNISolone NA SUCC 40 MG/1 ML VIAL IVPB SCH ×2 (01:46→09:03)
[2016-10-21 06:21] VITALS: TEMP 97.9
[2016-10-21] MEDS: ALBUTEROL SO4 2.5/IPRATROPIUM 0.5 INH SOL 3 ML VIAL.NEB. NEB SCH ×2 (06:59→11:28)
[2016-10-21] MEDS: diazePAM 5 MG TABLET PO PRN (08:48)
[2016-10-21] MEDS: HEPARIN NA (PORCINE) 5,000 UNITS/ML 1ML VIAL SQ SCH (09:03)
[2016-10-21] MEDS: BUDESONIDE/FORMETEROL FUMARATE 160/4.5 mcg INHALER IH SCH (09:04)
[2016-10-21] MEDS: LEVOFLOXACIN 500 MG IVPB 100 ML IVPB SCH (09:48)
[2016-10-21] MEDS ORDERED: METHADONE HCL 10 MG TABLET PO ONE (10:00)
[2016-10-21] MEDS ORDERED: METHADONE HCL 5 MG TABLET (FOR DETOX USE ONLY) PO ONE (10:00)
[2016-10-21 10:34] VITALS: BP 112/70; PULSE 80
--- NOTE | 2016-10-21 11:47 | PN ---
Progress Note (short form) - Note Progress Note: PULMONARY Feels better, wants to go home. Last Vital Signs Temp Pulse Resp BP Pulse Ox 97.9 F 80 18 112/70 96 10/21/16 06:20 10/21/16 09:00 10/21/16 09:00 10/21/16 09:00 10/21/16 09:00 Gen: NAD at rest Heart: RRR Lung: decreased breath sounds at the bases, no wheezes Abd: soft, nontender Ext: no edema CBC, BMP 10/18/16 13:34 10/18/16 13:34 Active Medications Albuterol Sulfate (Ventolin 0.083% Nebulizer Soln -) 1 amp NEB Q4H PRN PRN Reason: SHORT OF BREATH/WHEEZING Albuterol/Ipratropium (Duoneb -) 1 amp NEB Q6HPO VARSHA Last Admin: 10/21/16 11:28 Dose: Not Given Budesonide/Formoterol Fumarate (Symbicort 160/4.5mcg -) 1 puff IH BID [facility] Last Admin: 10/21/16 09:04 Dose: 1 puff Diazepam (Valium -) 10 mg PO Q4H PRN PRN Reason: WITHDRAWAL(CONT SUBST) Stop: 10/22/16 09:23 Last Admin: 10/21/16 08:48 Dose: 10 mg Diphenhydramine HCl (Benadryl -) 50 mg PO HS PRN PRN Reason: INSOMNIA Last Admin: 10/20/16 22:19 Dose: 50 mg Heparin Sodium (Porcine) (Heparin -) 5,000 unit SQ BID [facility] Last Admin: 10/21/16 09:03 Dose: 5,000 unit Levofloxacin (Levaquin 500 Mg Premixed Ivpb -) 100 mls @ 100 mls/hr IVPB DAILY [facility] Last Admin: 10/21/16 09:48 Dose: 100 mls/hr Methadone HCl (Dolophine -) 5 mg PO ONCE@0600 ONE Stop: 10/22/16 06:01 Methylprednisolone Sodium Succinate (Solu-Medrol -) 40 mg IVPB Q8H-IV VARSHA Last Admin: 10/21/16 09:03 Dose: 40 mg Montelukast Sodium (Singulair -) 10 mg PO HS [facility] Last Admin: 10/20/16 22:18 Dose: 10 mg A/P Acute Asthma Exacerbation Polysubstance Abuse - can change steroids to PO - inhaled bronchodilators - advise cessation of inhalants
[2016-10-22] MEDS ORDERED: METHADONE HCL 5 MG TABLET PO ONE (06:00)
[2016-10-22] MEDS ORDERED: METHADONE HCL 10 MG TABLET (FOR DETOX USE ONLY) PO ONE (10:00)
[2016-10-23] MEDS ORDERED: METHADONE HCL 5 MG TABLET (FOR DETOX USE ONLY) PO ONE (06:00)
== END 2016-10-21 11:47 | disposition left against medical advice (07) | DRG 141 ==
LOC: JER 12:16 → JERBED 15:23 → INTOOBSV 15:23 → J5S 18:38 → OBSVTOIN 10-19 01:27
PROVIDERS: ADMIT Internal Medicine; ATTEND Internal Medicine
PROC: HZ2ZZZZ Detoxification Services for Substance Abuse Treatment (ICD-10-PCS; principal; 2016-10-19)
DX: J45.21 Mild intermittent asthma with (acute) exacerbation (principal); F11.23 Opioid dependence with withdrawal; J98.01 Acute bronchospasm; F19.20 Other psychoactive substance dependence, uncomplicated; F14.20 Cocaine dependence, uncomplicated
CPT/HCPCS: 36415; 71020-TC; 80053; 80307; 82550; 84484; 85025; 93005; 93010; 93306-TC; 94150; 94640; 99284-25; G0378; J1644

== ENCOUNTER 2017-03-11 08:49 | Inpatient (IN) | payer OTHER ==
[2017-03-11 10:21] VITALS: BMI 35.2
--- NOTE | 2017-03-11 11:13 | HP ---
COWS - Scale Resting Pulse: 1= MD 81-100 Sweatin=Flushed/Facial Moisture Restless Observation: 1= Difficult to Sit Still Pupil Size: 0= Normal to Room Light Bone or Joint Aches: 2= Severe Diffuse Aches Runny Nose/ Eye Tearin= Runny Nose/Eyes GI Upset > 30mins: 0= None Tremor Observation: 2= Slight Tremor Visible Yawning Observation: 2= >3x During Session Anxiety or Irritability: 2=Irritable/Anxious Goose Flesh Skin: 0=Smooth Skin COWS Score: 14 Admission ROS S - HPI Chief Complaint: I am using heroin and want to get cleaned. Allergies/Adverse Reactions: Allergies Allergy/AdvReac Type Severity Reaction Status Date / Time No Known Allergies Allergy Verified 03/11/17 10:34 History of Present Illness: pt is a 46yr old male with a history of heroin dependence seeking detox for treatment. Exam Limitations: No Limitations - Ebola screening Have you traveled outside of the country in the last 21 days: No Have you had contact with anyone from an Ebola affected area: No Have you been sick,other than usual withdrawal symptoms: No Do you have a fever: No - Review of Systems Constitutional: Chills, Diaphoresis, Loss of Appetite, Night Sweats, Changes in sleep, Unintentional Wgt. Loss EENT: reports: Tearing, Nose Congestion Respiratory: reports: Cough Cardiac: reports: No Symptoms Reported GI: reports: Poor Appetite, Poor Fluid Intake : reports: No Symptoms Reported Musculoskeletal: reports: No Symptoms Reported Integumentary: reports: Flushing, Sweating Neuro: reports: Tingling, Tremors Endocrine: reports: Excessive Sweating, Flushing, Intolerance to Cold, Intolerance to Heat Hematology: reports: No Symptoms Reported Psychiatric: reports: Judgement Intact, Mood/Affect Appropiate, Orientated x3, Agitated, Anxious Other Systems: Reviewed and Negative Patient History - Patient Medical History Hx Anemia: No Hx Asthma: Yes Hx Chronic Obstructive Pulmonary Disease (COPD): Yes Hx Cancer: No Hx Cardiac Disorders: No Hx Congestive Heart Failure: No Hx Hypertension: No Hx Hypercholesterolemia: No Hx Pacemaker: No HX Cerebrovascular Accident: No Hx Seizures: No Hx Dementia: No Hx Diabetes: No Hx Gastrointestinal Disorders: No Hx Liver Disease: No Hx Genitourinary Disorders: No Hx Sexually Transmitted Disorders: No Hx Renal Disease (ESRD): No Hx Thyroid Disease: No Hx Human Immunodeficiency Virus (HIV): No (negative) Hx Hepatitis C: No (negative) Hx Depression: No Hx Suicide Attempt: No Hx Bipolar Disorder: No Hx Schizophrenia: No - Patient Surgical History Past Surgical History: No Hx Neurologic Surgery: No Hx Cataract Extraction: No Hx Cardiac Surgery: No Hx Lung Surgery: No Hx Breast Surgery: No Hx Breast Biopsy: No Hx Abdominal Surgery: No Hx Appendectomy: No Hx Cholecystectomy: No Hx Genitourinary Surgery: No Hx Section: No Hx Orthopedic Surgery: No Hx Hysterectomy: No Anesthesia Reaction: No - PPD History Previous Implant?: Yes Documented Results: Negative w/proof Implanted On Prior [facility] Admission?: Yes Date: 07/25/16 Results: 0 mm PPD to be Administered?: No - Reproductive History Patient is a Female of Child Bearing Age (11 -55 yrs old): No - Smoking Cessation Smoking history: Current every day smoker Have you smoked in the past 12 months: Yes Aproximately how many cigarettes per day: 10 Cigars Per Day: 0 Hx Chewing Tobacco Use: No Initiated information on smoking cessation: Yes 'Breaking Loose' booklet given: 03/11/17 - Substance & Tx. History Hx Alcohol Use: No Hx Substance Use: Yes Substance Use Type: Cocaine, Heroin Hx Substance Use Treatment: Yes (last detox 07/2015 [facility]) - Substances Abused Heroin Route: Inhalation Frequency: Daily Amount used: 6-7 BAGS Age of first use: 36 Date of Last Use: 03/11/17 Cocaine Route: Inhalation Frequency: Daily Amount used: $30 Age of first use: 16 Date of Last Use: 03/10/17 Family Disease History - Family Disease History Family Disease History: Diabetes: Mother, CA: Father (.) Admission Physical Exam [facility] - Vital Signs Vital Signs: Vital Signs - 24 hr 03/11/17 10:20 Temperature 97.3 F L Pulse Rate 93 H Respiratory 18 Rate Blood Pressure 138/81 - Physical General Appearance: Yes: Appropriately Dressed, Moderate Distress, Obese, Tremorous, Irritable, Sweating, Anxious HEENTM: Yes: Normal Voice, Nasal Congestion Respiratory: Yes: No Respiratory Distress, Wheezing Neck: Yes: No masses,lesions,Nodules Breast: Yes: Within Normal Limits Cardiology: Yes: Regular Rhythm, Regular Rate, S1, S2 Abdominal: Yes: Normal Bowel Sounds, Soft Genitourinary: Yes: Within Normal Limits Back: Yes: Normal Inspection Musculoskeletal: Yes: full range of Motion Extremities: Yes: Normal Capillary Refill, Non-Tender, Tremors Neurological: Yes: Fully Oriented, Alert, Normal Response Integumentary: Yes: Normal Color Lymphatic: Yes: Within Normal Limits - Diagnostic (1) Acute asthma exacerbation Current Visit: Yes Status: Chronic Qualifiers: Asthma severity: mild Asthma persistence: unspecified Qualified Code(s): J45.901 - Unspecified asthma with (acute) exacerbation (2) Acute exacerbation of chronic obstructive pulmonary disease (COPD) Current Visit: Yes Status: Chronic (3) Nicotine dependence Current Visit: Yes Status: Acute Qualifiers: Nicotine product type: cigarettes Substance use status: uncomplicated Qualified Code(s): F17.210 - Nicotine dependence, cigarettes, uncomplicated (4) Opioid dependence with withdrawal Current Visit: Yes Status: Chronic Cleared for Admission S - Detox or Rehab [facility] Level of Care: Medically Managed Detox Regimen/Protocol: Methadone S Breath Alcohol Content Breath Alcohol Content: 0 Urine Drug Screen - Results Drug Screen Negative: No Urine Drug Screen Results: LIZBET-Cocaine, OPI-Opiates
[2017-03-11] MEDS ORDERED: LOPERAMIDE HCL 2 MG CAPSULE PO PRN (11:14)
[2017-03-11] MEDS ORDERED: MENTHOL/PHENOL 1 EACH UD MM PRN (11:14)
[2017-03-11] MEDS ORDERED: hydrOXYzine PAMOATE 50 MG CAPSULE (FP) PO PRN (11:14)
[2017-03-11] MEDS ORDERED: IBUPROFEN 400 MG TABLET (FP) PO PRN (11:14)
[2017-03-11] MEDS ORDERED: ACETAMINOPHEN 325 MG TABLET (FP) PO PRN (11:14)
[2017-03-11] MEDS ORDERED: guaiFENesin/D-METHORPHAN HB 10 ML UNIT-DOSE CUPS PO PRN (11:14)
[2017-03-11] MEDS ORDERED: MAGNESIUM HYDROX 2400MG/30ML ORAL SUSPENSION 30 ML CUP PO PRN (11:14)
[2017-03-11] MEDS ORDERED: MAG HYDROX/AL HYDROX/SIMETH 30 ML UNIT-DOSE CUP PO PRN (11:14)
[2017-03-11] MEDS ORDERED: P-EPHED 60MG/TRIPROLIDI 2.5MG TABLET PO PRN (11:14)
[2017-03-11] MEDS ORDERED: MAGNESIUM CITRATE 300 ML BOTTLE PO PRN (11:14)
[2017-03-11] MEDS ORDERED: ALBUTEROL SO4 18 GM HFA INHALER IH PRN (11:15)
[2017-03-11] MEDS ORDERED: ALBUTEROL SO4 2.5/IPRATROPIUM 0.5 INH SOL 3 ML VIAL.NEB. NEB ONE (11:16)
[2017-03-11] MEDS ORDERED: ALBUTEROL SO4 2.5/IPRATROPIUM 0.5 INH SOL 3 ML VIAL.NEB. NEB PRN (11:16)
[2017-03-11] MEDS: diazePAM 5 MG TABLET PO PRN ×2 (12:16→22:13)
[2017-03-11] MEDS: BUDESONIDE/FORMETEROL FUMARATE 160/4.5 mcg INHALER IH SCH ×2 (12:19→22:22)
[2017-03-11] MEDS ORDERED: METHADONE HCL 10 MG TABLET (FOR DETOX USE ONLY) PO ONE ×2 (13:00→23:00)
[2017-03-11 14:43] LABS: URINE APPEARANCE SLCLOUDY; URINE BILIRUBIN NEGATIVE (NEGATIVE); URINE BLOOD NEGATIVE (NEGATIVE); URINE COLOR YELLOW; URINE GLUCOSE (UA) NEGATIVE (NEGATIVE); URINE KETONE NEGATIVE (NEGATIVE); URINE NITRITE NEGATIVE (NEGATIVE); URINE PROTEIN NEGATIVE (NEGATIVE)
[2017-03-11 20:12] LABS: URINE LEUK ESTERASE TRACE (NEGATIVE)
[2017-03-11] MEDS: THIAMINE HCL 100 MG TABLET (FP) PO SCH (22:13)
[2017-03-11] MEDS: MONTELUKAST NA 10 MG TABLET PO SCH (22:13)
--- NOTE | 2017-03-12 09:30 | PN ---
[facility] COWS - Scale Resting Pulse: 1= [place] 81-100 Sweatin=Flushed/Facial Moisture Restless Observation: 3= Extraneous Movement Pupil Size: 0= Normal to Room Light Bone or Joint Aches: 4=Acute Joint/Muscle Pain Runny Nose/ Eye Tearin= None GI Upset > 30mins: 0= None Tremor Observation of Outstretched Hands: 1= Tremor [place], Not Seen Yawning Observation: 0= None Anxiety or Irritability: 2=Irritable/Anxious Goose Flesh Skin: 0=Smooth Skin COWS Score: 13 [facility] Progress Note (SOAP) Subjective: ANXIETY,SWEATS/CHILLS,FATIGUE. PT REFUSE TO DO BLOOD WORK STATING NEEDLE PHOBIA. ENCOURAGEDPT TO ALLOW BLOOD DRAWN PART OF HIS ADMISSION H/P. PT UNDERSTOOD. Objective: 03/12/17 10:48 Vital Signs Temperature 96.6 F L 03/12/17 09:00 Pulse Rate 90 03/12/17 09:00 Respiratory Rate 18 03/12/17 09:00 Blood Pressure 147/88 03/12/17 09:00 O2 Sat by Pulse Oximetry (%) LAB WORK PENDING Assessment: 03/12/17 10:48 WITHDRAWAL SX Plan: CONTINUE DETOX BLOOD WORK TO BE DONE.
[2017-03-12] MEDS ORDERED: METHADONE HCL 10 MG TABLET (FOR DETOX USE ONLY) PO ONE (10:00)
[2017-03-12] MEDS: PRENATAL VITAMINS W/ FOLIC ACID TABLET (FP) PO SCH (10:13)
[2017-03-12] MEDS: diazePAM 5 MG TABLET PO PRN ×2 (10:13→19:11)
[2017-03-12] MEDS: NICOTINE 14 MG/24 HOURS TOPICAL PATCH TD SCH (10:13)
[2017-03-12] MEDS: BUDESONIDE/FORMETEROL FUMARATE 160/4.5 mcg INHALER IH SCH ×2 (10:14→22:24)
[2017-03-12 15:57] LABS: ALBUMIN 3.4 g/dl (3.4-5.0); ANION GAP 6 (8-16); CALCIUM 8.9 mg/dL (8.5-10.1); CO2 28 mmol/L (21-32); GLUCOSE,RANDOM 97 mg/dL (74-106)
[2017-03-12 16:02] LABS: ALK PHOS 81 U/L (45-117); BILIRUBIN,TOTAL 0.4 mg/dL (0.2-1.0); CREATININE 0.7 mg/dL (0.7-1.3); SGOT/AST 25 U/L (15-37); SGPT/ALT 29 U/L (12-78); TOT PROT 6.5 g/dl (6.4-8.2)
[2017-03-12 16:11] LABS: MCH 27.4 pg (25.7-33.7); MEAN CELL VOLUME 83.2 fl (80-96); MEAN PLT VOLUME 8.4 fl (7.5-11.1); PLATELET COUNT 349 K/MM3 (134-434); RDW 14.1 % (11.9-15.9); WHITE BLOOD COUNT 6.3 K/mm3 (4.0-10.0)
[2017-03-12] MEDS: MONTELUKAST NA 10 MG TABLET PO SCH (22:24)
[2017-03-12] MEDS: THIAMINE HCL 100 MG TABLET (FP) PO SCH (22:24)
--- NOTE | 2017-03-13 01:03 | EKG ---
Test Reason : Blood Pressure : / mmHG Vent. Rate : 084 BPM Atrial Rate : 084 BPM P-R Int : 156 ms QRS Dur : 082 ms QT Int : 356 ms P-R-T Axes : 039 061 060 degrees QTc Int : 420 ms NORMAL SINUS RHYTHM NORMAL ECG WHEN COMPARED WITH ECG OF 19-OCT-2016 12:04, NO SIGNIFICANT CHANGE WAS FOUND Confirmed by MARY WORTHY MD ([id number]) on 03/13/2017 1:02:52 AM Referred By: Confirmed By:MARY WORTHY MD
[2017-03-13] MEDS ORDERED: METHADONE HCL 5 MG TABLET (FOR DETOX USE ONLY) PO ONE (10:00)
--- NOTE | 2017-03-13 10:06 | PN ---
S COWS - Scale Resting Pulse: 1= MO 81-100 Sweatin= Chills/Flushing Restless Observation: 3= Extraneous Movement Pupil Size: 0= Normal to Room Light Bone or Joint Aches: 1= Mild Discomfort Runny Nose/ Eye Tearin= Nasal Congestion GI Upset > 30mins: 1= Stomach Cramp Tremor Observation of Outstretched Hands: 1= Tremor [place], Not Seen Yawning Observation: 1= 1-2x During Session Anxiety or Irritability: 2=Irritable/Anxious Goose Flesh Skin: 0=Smooth Skin COWS Score: 12 BHS Progress Note (SOAP) Subjective: ANXIETY,SWEATS, FATIGUE,INTERMIITENT SLEEP. Objective: 03/13/17 10:13 Vital Signs Temperature 96.2 F L 03/13/17 09:05 Pulse Rate 86 03/13/17 09:05 Respiratory Rate 18 03/13/17 09:05 Blood Pressure 146/94 03/13/17 09:05 O2 Sat by Pulse Oximetry (%) Laboratory Last Values WBC 6.3 K/mm3 (4.0-10.0) D 03/12/17 12:10 RBC 4.53 M/mm3 (4.00-5.60) 03/12/17 12:10 Hgb 12.4 GM/dL (11.7-16.9) 03/12/17 12:10 Hct 37.7 % (35.4-49) 03/12/17 12:10 MCV 83.2 fl (80-96) 03/12/17 12:10 MCH 27.4 pg (25.7-33.7) 03/12/17 12:10 MCHC 33.0 g/dl (32.0-35.9) 03/12/17 12:10 RDW 14.1 % (11.9-15.9) D 03/12/17 12:10 Plt Count 349 K/MM3 (134-434) 03/12/17 12:10 MPV 8.4 fl (7.5-11.1) 03/12/17 12:10 Sodium 140 mmol/L (136-145) 03/12/17 12:10 Potassium 4.8 mmol/L (3.5-5.1) 03/12/17 12:10 Chloride 106 mmol/L (98-107) 03/12/17 12:10 Carbon Dioxide 28 mmol/L (21-32) 03/12/17 12:10 Anion Gap 6 (8-16) L 03/12/17 12:10 BUN 6 mg/dL (7-18) L D 03/12/17 12:10 Creatinine 0.7 mg/dL (0.7-1.3) 03/12/17 12:10 Creat Clearance w eGFR > 60 (>60) 03/12/17 12:10 Random Glucose 97 mg/dL (74-106) 03/12/17 12:10 Calcium 8.9 mg/dL (8.5-10.1) 03/12/17 12:10 Total Bilirubin 0.4 mg/dL (0.2-1.0) 03/12/17 12:10 AST 25 U/L (15-37) D 03/12/17 12:10 ALT 29 U/L (12-78) D 03/12/17 12:10 Alkaline Phosphatase 81 U/L (45-117) 03/12/17 12:10 Total Protein 6.5 g/dl (6.4-8.2) 03/12/17 12:10 Albumin 3.4 g/dl (3.4-5.0) 03/12/17 12:10 Urine Color Yellow 03/11/17 14:00 Urine Appearance Slcloudy 03/11/17 14:00 Urine pH 6.0 (5.0-8.0) D 03/11/17 14:00 Ur Specific [place] 1.019 (1.001-1.035) 03/11/17 14:00 Urine Protein Negative (NEGATIVE) 03/11/17 14:00 Urine Glucose (UA) Negative (NEGATIVE) 03/11/17 14:00 Urine Ketones Negative (NEGATIVE) 03/11/17 14:00 Urine Blood Negative (NEGATIVE) 03/11/17 14:00 Urine Nitrite Negative (NEGATIVE) 03/11/17 14:00 Urine Bilirubin Negative (NEGATIVE) 03/11/17 14:00 Urine Urobilinogen 2.0 mg/dL (0.2-1.0) 03/11/17 14:00 Ur Leukocyte Esterase Trace (NEGATIVE) H 03/11/17 14:00 Assessment: 03/13/17 10:14 WITHDRAWAL SX Plan: CONTINUE DETOX INCREASE PO FLUIDS.
[2017-03-13] MEDS: PRENATAL VITAMINS W/ FOLIC ACID TABLET (FP) PO SCH (10:11)
[2017-03-13] MEDS: diazePAM 5 MG TABLET PO PRN (10:11)
[2017-03-13] MEDS: NICOTINE 14 MG/24 HOURS TOPICAL PATCH TD SCH (10:12)
[2017-03-13] MEDS: BUDESONIDE/FORMETEROL FUMARATE 160/4.5 mcg INHALER IH SCH (10:12)
[2017-03-13 13:00] VITALS: BP 130/79; PULSE 80; TEMP 96.1
--- NOTE | 2017-03-13 15:24 | DS ---
[facility] Detox Discharge Summary Admission Date: 03/11/17 Discharge Date: 03/13/17 - History Present History: Cocaine Dependence, Opioid Dependence Additional Comments: PT DECLINED TO CONTINUE WITH DETOX STATING "I JUST WANT TO GO, NO REASON". I LIVE DOWN THE BLOCK. PT WAS SPOKEN TO BY THIS FIRE ALARM OPERATOR, NURSING STAFF/ADMINISTRATIVE SERVICES MANAGER AND COUNSELOR BUT PATIENT INSISTS ON LEAVING SAYING "I'M GOOD". ALERT O X 3. NAD. Pertinent Past History: ASTHMA - Physical Exam Results Vital Signs: Vital Signs Temperature 96.1 F L 03/13/17 12:59 Pulse Rate 80 03/13/17 12:59 Respiratory Rate 18 03/13/17 12:59 Blood Pressure 130/79 03/13/17 12:59 O2 Sat by Pulse Oximetry (%) Pertinent Admission Physical Exam Findings: WITHDRAWAL SX Laboratory Last Values WBC 6.3 K/mm3 (4.0-10.0) D 03/12/17 12:10 RBC 4.53 M/mm3 (4.00-5.60) 03/12/17 12:10 Hgb 12.4 GM/dL (11.7-16.9) 03/12/17 12:10 Hct 37.7 % (35.4-49) 03/12/17 12:10 MCV 83.2 fl (80-96) 03/12/17 12:10 MCH 27.4 pg (25.7-33.7) 03/12/17 12:10 MCHC 33.0 g/dl (32.0-35.9) 03/12/17 12:10 RDW 14.1 % (11.9-15.9) D 03/12/17 12:10 Plt Count 349 K/MM3 (134-434) 03/12/17 12:10 MPV 8.4 fl (7.5-11.1) 03/12/17 12:10 Sodium 140 mmol/L (136-145) 03/12/17 12:10 Potassium 4.8 mmol/L (3.5-5.1) 03/12/17 12:10 Chloride 106 mmol/L (98-107) 03/12/17 12:10 Carbon Dioxide 28 mmol/L (21-32) 03/12/17 12:10 Anion Gap 6 (8-16) L 03/12/17 12:10 BUN 6 mg/dL (7-18) L D 03/12/17 12:10 Creatinine 0.7 mg/dL (0.7-1.3) 03/12/17 12:10 Creat Clearance w eGFR > 60 (>60) 03/12/17 12:10 Random Glucose 97 mg/dL (74-106) 03/12/17 12:10 Calcium 8.9 mg/dL (8.5-10.1) 03/12/17 12:10 Total Bilirubin 0.4 mg/dL (0.2-1.0) 03/12/17 12:10 AST 25 U/L (15-37) D 03/12/17 12:10 ALT 29 U/L (12-78) D 03/12/17 12:10 Alkaline Phosphatase 81 U/L (45-117) 03/12/17 12:10 Total Protein 6.5 g/dl (6.4-8.2) 03/12/17 12:10 Albumin 3.4 g/dl (3.4-5.0) 03/12/17 12:10 Urine Color Yellow 03/11/17 14:00 Urine Appearance Slcloudy 03/11/17 14:00 Urine pH 6.0 (5.0-8.0) D 03/11/17 14:00 Ur Specific [place] 1.019 (1.001-1.035) 03/11/17 14:00 Urine Protein Negative (NEGATIVE) 03/11/17 14:00 Urine Glucose (UA) Negative (NEGATIVE) 03/11/17 14:00 Urine Ketones Negative (NEGATIVE) 03/11/17 14:00 Urine Blood Negative (NEGATIVE) 03/11/17 14:00 Urine Nitrite Negative (NEGATIVE) 03/11/17 14:00 Urine Bilirubin Negative (NEGATIVE) 03/11/17 14:00 Urine Urobilinogen 2.0 mg/dL (0.2-1.0) 03/11/17 14:00 Ur Leukocyte Esterase Trace (NEGATIVE) H 03/11/17 14:00 Urine RBC No Result Required. 03/11/17 14:00 RPR Titer Nonreactive (NONREACTIVE) 03/12/17 12:10 - Treatment Hospital Course: Discharged Condition Good - Medication Discharge Medications: Ambulatory Orders Albuterol Sulfate [Proventil HFA Inhaler -] 1 - 2 inh PO QID #1 inhaler Montelukast Na [Singulair -] 10 mg PO HS #30 tablet 07/29/16 Budesonide/Formeterol Fumarate [SYMBICORT 160/4.5mcg -] 1 inh PO BID #1 cannister 08/14/16 - Diagnosis (1) Nicotine dependence Current Visit: Yes Status: Acute Qualifiers: Nicotine product type: cigarettes Substance use status: in withdrawal Qualified Code(s): F17.213 - Nicotine dependence, cigarettes, with withdrawal (2) Opioid dependence with withdrawal Current Visit: Yes Status: Acute (3) Asthma Current Visit: Yes Status: Acute Qualifiers: Asthma severity: mild Asthma persistence: unspecified Asthma complication type: uncomplicated Qualified Code(s): J45.909 - Unspecified asthma, uncomplicated (4) Cocaine dependence, uncomplicated Current Visit: Yes Status: Acute - AMA Did Patient Leave Against Medical Advice: Yes
[2017-03-14] MEDS ORDERED: METHADONE HCL 5 MG TABLET (FOR DETOX USE ONLY) PO ONE (10:00)
[2017-03-15] MEDS ORDERED: METHADONE HCL 10 MG TABLET (FOR DETOX USE ONLY) PO ONE (10:00)
[2017-03-16] MEDS ORDERED: METHADONE HCL 5 MG TABLET (FOR DETOX USE ONLY) PO ONE (06:00)
== END 2017-03-13 15:21 | disposition left against medical advice (07) | DRG 770 ==
LOC: YASAS 08:49 → Y3N 11:39
PROVIDERS: ADMIT Internal Medicine; ATTEND Internal Medicine
PROC: HZ2ZZZZ Detoxification Services for Substance Abuse Treatment (ICD-10-PCS; principal; 2017-03-11)
DX: F11.23 Opioid dependence with withdrawal (principal); F14.20 Cocaine dependence, uncomplicated; F17.213 Nicotine dependence, cigarettes, with withdrawal; J45.901 Unspecified asthma with (acute) exacerbation; J44.1 Chronic obstructive pulmonary disease with (acute) exacerbation; E66.9 Obesity, unspecified; Z68.35 Body mass index [BMI] 35.0-35.9, adult
CPT/HCPCS: 36415; 80053; 81003; 81015; 85027; 86593; 93005; 93010; 94640

== ENCOUNTER 2017-03-26 04:17 | Inpatient (IN) | payer OTHER ==
[2017-03-26] MEDS ORDERED: EPINEPHrine/PF 1 MG/1 ML (1:1,000) AMPULE ONE (04:30)
[2017-03-26] MEDS ORDERED: methylPREDNISolone NA SUCC 125 MG/2 ML VIAL ONE (04:31)
[2017-03-26] MEDS ORDERED: MAGNESIUM SULF 50% (8.12 MEQ/2 ML-1 GM VIAL) ONE ×2 (04:41→04:42)
[2017-03-26] MEDS ORDERED: ALBUTEROL SO4 2.5/IPRATROPIUM 0.5 INH SOL 3 ML VIAL.NEB. NEB ONE (04:41)
[2017-03-26 05:01] VITALS: BMI 36.1
[2017-03-26] MEDS ORDERED: EPINEPHrine 1:1,000 0.3 MG/0.3 ML SYR IM ONE (05:13)
[2017-03-26 05:32] LABS: BASOPHIL 0.6 % (0-2.0); EOSINOPHIL 8.1 % (0-4.5); MCHC 32.8 g/dl (32.0-35.9); MEAN CELL VOLUME 82.4 fl (80-96); NEUTROPHILS 59.8 % (42.8-82.8); PLATELET COUNT 362 K/MM3 (134-434); RDW 14.2 % (11.9-15.9); WHITE BLOOD COUNT 11.9 K/mm3 (4.0-10.0)
--- NOTE | 2017-03-26 05:37 | PDOC ---
History of Present Illness - General Chief Complaint: Asthma Stated Complaint: DIFFICULTY BREATHING Time Seen by Provider: 03/26/17 04:46 History Source: Patient Exam Limitations: No Limitations - History of Present Illness Initial Comments: 03/26/17 05:25 Patient is a 46-year-old male with history of asthma, h/o substance abuse, complaining of asthma symptoms 1 day. States he used his MDI yesterday, but today he had to use his nebulizer about midday. States he was fine until about 0330 when he woke up could not breathe. EMS was called and was brought into the ER for evaluation. He has had no intubations for his asthma but has been on steroids intermittently. On arrival patient with decreased air entry history limited due to respiratory compromise. PMD: Dr. Yanez PMHX: as above PSocHx: neg cig h/o 1 PPD stopped 8 months ago, etoh, (+) drug abuse history ALL: NKDA GENERAL/CONSTITUTIONAL: [No fever or chills. No weakness. No weight change.] HEAD, EYES, EARS, NOSE AND THROAT: [No change in vision. No ear pain or discharge. No sore throat.] CARDIOVASCULAR: [No chest pain or shortness of breath.] RESPIRATORY: (+) cough, wheezing, or hemoptysis.] GASTROINTESTINAL: [No nausea, vomiting, diarrhea or constipation. No rectal bleeding.] GENITOURINARY: [No dysuria, frequency, or change in urination.] MUSCULOSKELETAL: [No joint or muscle swelling or pain. No neck or back pain.] SKIN AND BREASTS: [No rash or easy bruising.] NEUROLOGIC: [No headache, vertigo, loss of consciousness, or loss of sensation.] PSYCHIATRIC: [No depression or anxiety.] ENDOCRINE: [No increased thirst. No abnormal weight change.] HEMATOLOGIC/LYMPHATIC: [No anemia, easy bleeding, or history of blood clots.] ALLERGIC/IMMUNOLOGIC: [No hives or skin allergy. No latex allergy.] GENERAL: [The patient is awake, alert, and fully oriented, in moderate distress. ] HEAD: [Normal with no signs of trauma.] EYES: [Pupils equal, round and reactive to light, extraocular movements intact, sclera anicteric, conjunctiva clear.] ENT: [Ears normal, nares patent, oropharynx clear without exudates. Moist mucous membranes.] NECK: [Normal range of motion, supple without lymphadenopathy, JVD, or masses.] LUNGS: (+) wheezes, poor entry. Speaking in one-word sentences.] HEART: Tachycardic, S1 and S2 without murmur, rub.] ABDOMEN: [Soft, nontender, normoactive bowel sounds. No guarding, no rebound. No masses.] EXTREMITIES: [Normal range of motion, bilateral lower extremity edema. No clubbing or cyanosis. No cords, erythema, or tenderness.] NEUROLOGICAL: [Cranial nerves II through XII grossly intact. Normal speech, normal gait.] PSYCH: [Normal anxious, normal affect.] SKIN: [Warm, Dry, normal turgor, no rashes or lesions noted.] Past History - Past Medical History Allergies/Adverse Reactions: Allergies Allergy/AdvReac Type Severity Reaction Status Date / Time No Known Allergies Allergy Verified 03/11/17 10:34 Home Medications: Ambulatory Orders Albuterol Sulfate [Proventil HFA Inhaler -] 1 - 2 inh PO QID #1 inhaler Montelukast Na [Singulair -] 10 mg PO HS #30 tablet 07/29/16 Budesonide/Formeterol Fumarate [SYMBICORT 160/4.5mcg -] 1 inh PO BID #1 cannister 08/14/16 Anemia: No Asthma: Yes Cancer: No Cardiac Disorders: No CVA: No COPD: Yes CHF: No Dementia: No Diabetes: No GI Disorders: No Disorders: No HTN: No Hypercholesterolemia: No Kidney Stones: No Liver Disease: No Seizures: No Thyroid Disease: No - Surgical History Abdominal Surgery: No Appendectomy: No Cardiac Surgery: No Cholecystectomy: No Lung Surgery: No Neurologic Surgery: No Orthopedic Surgery: No - Reproductive History Testicular Surgery: No - Immunization History Td Vaccination: Yes Immunization Up to Date: Yes - Suicide/Smoking/Psychosocial Hx Smoking Status: Yes Smoking History: Current every day smoker Years of Tobacco Use: 40 Have you smoked in the past 12 months: Yes Number of Cigarettes Smoked Daily: 10 If you are a former smoker, when did you quit?: 2015 Cigars Per Day: 0 Information on smoking cessation initiated: No 'Breaking Loose' booklet given: 03/11/17 Hx Alcohol Use: No Drug/Substance Use Hx: No Substance Use Type: Cocaine, Heroin Hx Substance Use Treatment: Yes (last detox 07/2015 [facility]) Respiratory Specific PMHX - Complaint Specific PMHX TB (Tuberculosis): No *Physical Exam - Vital Signs Last Vital Signs Temp Pulse Resp BP Pulse Ox 167/92 88 L 03/26/17 04:38 03/26/17 04:38 ED Treatment Course - LABORATORY CBC & Chemistry Diagram: 03/26/17 05:24 03/26/17 05:24 - RADIOLOGY Radiology Studies Ordered: Category Date Time Status CHEST X-RAY PORTABLE* [RAD] Stat Radiology 03/26/17 05:13 Ordered Medical Decision Making - Medical Decision Making 03/26/17 05:38 Patient is a 46-year-old male with history of asthma, complaining of asthma symptoms 1 day consistent with asthma exacerbation and respiratory distress. Critical care was called. Immediately given epinephrine 0.3 mL I am. IV line was established given Solu-Medrol 125 mg IV, no treatments, mag sulfate 2 g IV. I anticipate admission of the for asthma exacerbation Chest x-ray no acute infiltrates EKG sinus rhythm rate 94, normal axis deviation, no ST-T wave changes. Labs and no acute findings Peak flow meter post treatment 150, patient's baseline 220 03/26/17 07:[address] Diaz and will admit to her service for asthma with status. *DC/Admit/Observation/Transfer Diagnosis at time of Disposition: Asthma exacerbation Qualifiers: Asthma severity: severe Asthma persistence: persistent Qualified Code(s): J45.51 - Severe persistent asthma with (acute) exacerbation - Discharge Dispostion Condition at time of disposition: Stable Admit: Yes - Referrals - Patient Instructions - Post Discharge Activity
[2017-03-26 06:01] LABS: ALBUMIN 3.5 g/dl (3.4-5.0); ANION GAP 6 (8-16); BILIRUBIN,TOTAL 0.2 mg/dL (0.2-1.0); CALCIUM 8.3 mg/dL (8.5-10.1); CO2 31 mmol/L (21-32); CREATININE 0.8 mg/dL (0.7-1.3); GLUCOSE,RANDOM 113 mg/dL (74-106); SGOT/AST 23 U/L (15-37); SGPT/ALT 22 U/L (12-78); TOT PROT 6.7 g/dl (6.4-8.2)
[2017-03-26 06:03] LABS: ALK PHOS 90 U/L (45-117); CPK 330 IU/L (39-308); TROPONIN I < 0.02 ng/ml (0.00-0.05)
[2017-03-26] MEDS ORDERED: ALBUTEROL SO4 2.5/IPRATROPIUM 0.5 INH SOL 3 ML VIAL.NEB. NEB SCH (13:00)
--- NOTE | 2017-03-26 13:08 | CON.PULM ---
Consult Consult Specialty:: PULMONARY Referred by:: [facility] Reason for Consultation:: WHEEZE - History of Present Illness Chief Complaint: COUGH/WHEEZE/SOB History of Present Illness: Patient is a 46-year-old male with history of asthma, h/o substance abuse, complaining of asthma symptoms 1 day. States he used his MDI yesterday, but today he had to use his nebulizer about midday. States he was fine until about 0330 when he woke up could not breathe. EMS was called and was brought into the ER for evaluation. He has had no intubations for his asthma but has been on steroids intermittently. On arrival patient with decreased air entry history limited due to respiratory compromise. 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: Alzheimer's Cardio/Vascular: No: AFIB Pulmonary: Yes: Asthma Gastrointestinal: No: Ascites Hepatobiliary: No: Cirrhosis Renal/: No: Renal Failure Heme/Onc: No: Anemia Psych: Yes: Addictions (heroin) - Past Surgical History Past Surgical History: Yes: None - Alcohol/Substance Use Hx Alcohol Use: No History of Substance Use: reports: Heroin - Smoking History Smoking history: Current every day smoker Have you smoked in the past 12 months: Yes Aproximately how many cigarettes per day: 10 If you are a former smoker, when did you quit?: 2014 - Social History ADL: Independent Occupation: Unemployed History of Recent Travel: No Home Medications - Allergies Allergies/Adverse Reactions: Allergies Allergy/AdvReac Type Severity Reaction Status Date / Time No Known Allergies Allergy Verified 03/11/17 10:34 - Home Medications Home Medications: Ambulatory Orders Albuterol Sulfate [Proventil HFA Inhaler -] 1 - 2 inh PO QID #1 inhaler Montelukast Na [Singulair -] 10 mg PO HS #30 tablet 07/29/16 Budesonide/Formeterol Fumarate [SYMBICORT 160/4.5mcg -] 1 inh PO BID #1 cannister 08/14/16 Family Disease History - Family Disease History Family Disease History: Diabetes: Mother, CA: Father (.) Review of Systems - Review of Systems Cardiovascular: reports: Shortness of Breath. denies: Chest Pain Respiratory: reports: Cough, Exercise Intolerance, SOB on Exertion, Wheezing. denies: Hemoptysis Physical Exam Vital Sings: Vital Signs Temperature 98.1 F 03/26/17 12:17 Pulse Rate 86 03/26/17 12:17 Respiratory Rate 14 03/26/17 12:17 Blood Pressure 140/63 03/26/17 12:17 O2 Sat by Pulse Oximetry (%) 98 03/26/17 12:43 Constitutional: Yes: Calm Eyes: Yes: EOM Intact HENT: Yes: Normocephalic Neck: Yes: Trachea Midline Cardiovascular: Yes: Regular Rate and Rhythm, S1, S2 Respiratory: Yes: Wheezes Gastrointestinal: Yes: Normal Bowel Sounds Renal/: Yes: WNL Breast(s): Yes: WNL Musculoskeletal: Yes: WNL Extremities: Yes: WNL Integumentary: Yes: WNL Neurological: Yes: Lethargy Labs: CBC, BMP 03/26/17 05:24 03/26/17 05:24 REST REVIEWED Imaging - Results Chest X-ray: Report Reviewed, Image Reviewed Problem List - Problems (1) Asthma exacerbation Code(s): J45.901 - UNSPECIFIED ASTHMA WITH (ACUTE) EXACERBATION Qualifiers: Asthma severity: severe Asthma persistence: persistent Qualified Code(s) : J45.51 - Severe persistent asthma with (acute) exacerbation (2) Acute bronchospasm Code(s): J98.01 - ACUTE BRONCHOSPASM (3) Cocaine dependence, uncomplicated Code(s): F14.20 - COCAINE DEPENDENCE, UNCOMPLICATED (4) Heroin abuse Code(s): F11.10 - OPIOID ABUSE, UNCOMPLICATED Assessment/Plan URINE TOX SCREEN IV MEDROL/JULIANNA/LABA/LAMA/ICS/SINGULAIR/02 DAILY PEAK FLOW IGE LEVEL DVT/PUD PROPHYLAXSIS Gal ZHU MD
--- NOTE | 2017-03-26 13:51 | CONSULT ---
Consultation: REQUESTING PROVIDER: CONSULT REQUEST: We have been asked to medically evaluate this patient for asthma. HISTORY OF PRESENT ILLNESS: 46M w/ hx of asthma presenting with several days of SOB. Per pt, he was in his USOH until a few days ago when he became progressively SOB. He endorses accompanying wheezing and dry cough, but denies sick contacts, recent travel, rhinorrhea, nasal congestion, sore throat, fevers, chills, chest pain, abdominal pain, n/v/d/c, and dysuria. He used his MDI and nebulizer without relief prompting him to present to the hospital. Per pt, he was diagnosed with asthma 8 years. He is prescribed proventil, singulair, and symbicort, but doesn't use them consistently. Before this episode , he used his proventil 1-2x a week, denies night-time symptoms, has been hospitalized multiple times for asthma, placed on steroids multiple times, but has never been intubated. He has a 20 pack-year smoking history, but quit 1 year ago. He is an active heroine user. He lives in his mother's house with his mother, and he is not currently working. REVIEW OF SYSTEMS: CONSTITUTIONAL: Absent: fever, chills, diaphoresis, generalized weakness, malaise, loss of appetite, weight change HEENT: Absent: rhinorrhea, nasal congestion, throat pain, throat swelling, difficulty swallowing, mouth swelling, ear pain, eye pain, visual changes CARDIOVASCULAR: Absent: chest pain, syncope, palpitations, irregular heart rate, lightheadedness , peripheral edema RESPIRATORY: Absent: stridor, hemoptysis present: cough, shortness of breath, dyspnea with exertion, wheezing GASTROINTESTINAL: Absent: abdominal pain, abdominal distension, nausea, vomiting, diarrhea, constipation, melena, hematochezia GENITOURINARY: Absent: dysuria, frequency, urgency, hesitancy, hematuria, flank pain, genital pain MUSCULOSKELETAL: Absent: myalgia, arthralgia, joint swelling, back pain, neck pain SKIN: Absent: rash, itching, pallor HEMATOLOGIC/IMMUNOLOGIC: Absent: easy bleeding, easy bruising, lymphadenopathy, frequent infections ENDOCRINE: Absent: unexplained weight gain, unexplained weight loss, heat intolerance, cold intolerance NEUROLOGIC: Absent: headache, focal weakness or paresthesias, dizziness, unsteady gait, seizure, mental status changes, bladder or bowel incontinence PSYCHIATRIC: Absent: anxiety, depression, suicidal or homicidal ideation, hallucinations. PHYSICAL EXAMINATION Vital Signs - 24 hr 03/26/17 03/26/17 03/26/17 04:38 07:55 07:56 Temperature 98.1 F Pulse Rate 103 H Pulse Rate [ 103 H Left Apical] Respiratory 16 Rate Blood Pressure 167/92 Blood Pressure 142/71 [Left Arm] O2 Sat by Pulse 88 L 95 90 L Oximetry (%) 03/26/17 03/26/17 12:17 12:43 Temperature 98.1 F Pulse Rate 86 Pulse Rate [ Left Apical] Respiratory 14 Rate Blood Pressure 140/63 Blood Pressure [Left Arm] O2 Sat by Pulse 98 Oximetry (%) GENERAL: middle aged male, obese, sitting in bed, in distress HEENT: no rhinorrhea NECK: several cm healing ulcer on back of neck LUNGS: diffuse wheezing HEART: Regular rate and rhythm, normal S1 and S2 without murmur, rub or gallop. ABDOMEN: Soft, nontender, not distended, normoactive bowel sounds, no guarding, no rebound, no masses. No hepatomegaly or splenomegaly. MUSCULOSKELETAL: 2+ LE edema b/l NEUROLOGICAL: Cranial nerves II-XII intact. Normal speech. PSYCHIATRIC: Cooperative. Good eye contact. Appropriate mood and affect. SKIN: Warm, dry, normal turgor, no rashes or lesions noted. Laboratory Results - last 24 hr 03/26/17 03/26/17 05:24 05:24 WBC 11.9 H D RBC 4.12 Hgb 11.1 L D Hct 34.0 L MCV 82.4 MCH 27.0 MCHC 32.8 RDW 14.2 Plt Count 362 MPV 8.0 Neutrophils % 59.8 Lymphocytes % 21.4 D Monocytes % 10.1 D Eosinophils % 8.1 H Basophils % 0.6 Sodium 140 Potassium 4.1 Chloride 103 Carbon Dioxide 31 Anion Gap 6 L BUN 11 D Creatinine 0.8 Creat Clearance w eGFR > 60 Random Glucose 113 H Calcium 8.3 L Total Bilirubin 0.2 D AST 23 ALT 22 D Alkaline Phosphatase 90 Creatine Kinase 330 H Creatine Kinase Index 2.2 CK-MB (CK-2) 7.511 H Troponin I < 0.02 B-Natriuretic Peptide 81.81 Total Protein 6.7 Albumin 3.5 Active Medications Generic Name Dose Route Start Last Admin Trade Name Freq PRN Reason Stop Dose Admin Albuterol Sulfate 1 amp 03/26/17 13:02 Ventolin 0.083% Nebulizer Soln - NEB Q1H PRN SHORT OF BREATH/WHEEZING Albuterol/Ipratropium amp 03/26/17 13:00 Duoneb - NEB Q4H VARSHA Heparin Sodium (Porcine) 5,000 unit 03/26/17 22:00 Heparin - SQ BID VARSHA Methylprednisolone Sodium Succinate 40 mg 03/26/17 13:00 Solu-Medrol - IVPUSH Q6H-IV VARSHA Montelukast Sodium 10 mg 03/26/17 22:00 Singulair - PO HS VARSHA Fluticasone/Salmeterol puff 03/26/17 13:00 Advair 100mcg/50mcg - IH BID VARSHA CXR: no acute pathology ASSESSMENT/PLAN: 46M w/ hx of asthma presenting with several days of SOB. #asthma exacerbation -solumedrol -inhaled BD -continue home singulair, symbicort -O2 via NC -trend eosinophilia -outpt PFTs -outpt IgE Rest of care per medical team. Case discussed with attending, Dr. Thomas. Dispo: We will continue to follow the patient. Thank you for this consultative opportunity. -Ronald Coyle MD PGY1 Pulmonology Team Visit type - Emergency Visit Emergency Visit: Yes ED Registration Date: 03/26/17 Care time: The patient presented to the Emergency Department on the above date and was hospitalized for further evaluation of their emergent condition. - New Patient This patient is new to me today: Yes Date on this admission: 03/26/17 - Critical Care Critical Care patient: No
[2017-03-26 13:53] LABS: URINE MARIJUANA THC NEGATIVE ng/ml (CUTOFF=50)
[2017-03-26] MEDS: methylPREDNISolone NA SUCC 40 MG/1 ML VIAL IVPUSH SCH ×3 (14:35→21:22)
--- NOTE | 2017-03-26 14:55 | EKG ---
Test Reason : Blood Pressure : / mmHG Vent. Rate : 094 BPM Atrial Rate : 094 BPM P-R Int : 176 ms QRS Dur : 084 ms QT Int : 344 ms P-R-T Axes : 067 044 066 degrees QTc Int : 430 ms NORMAL SINUS RHYTHM NORMAL ECG WHEN COMPARED WITH ECG OF 26-MAR-2017 04:32, NO SIGNIFICANT CHANGE WAS FOUND Confirmed by MARY WORTHY MD ([id number]) on 03/26/2017 2:54:49 PM Referred By: Confirmed By:MARY WORTHY MD
[2017-03-26] MEDS: ALBUTEROL SO4 0.083% IH SOL 2.5 MG/3 ML VIAL.NEB. NEB PRN (17:08)
[2017-03-26] MEDS: FLUTICASONE/SALMETEROL 100 MCG/50 MCG DISKUS IH SCH ×2 (17:14→21:22)
[2017-03-26] MEDS ORDERED: PT OWN MED DRAWER 7, Y5N ONE (17:19)
[2017-03-26] MEDS ORDERED: hydrOXYzine PAMOATE 50 MG CAPSULE (FP) PO PRN (17:34)
[2017-03-26] MEDS ORDERED: NICOTINE POLACRILEX 2 MG GUM BC PRN (17:34)
[2017-03-26] MEDS ORDERED: diazePAM 5 MG TABLET PO ONE (17:34)
[2017-03-26] MEDS ORDERED: diazePAM 5 MG TABLET PO PRN (17:34)
[2017-03-26] MEDS ORDERED: METHADONE HCL 10 MG TABLET PO ONE ×2 (17:34→23:00)
--- NOTE | 2017-03-26 17:34 | CONSULT ---
Consult Detox [facility] Reason for Current Admission/Consult: polysubstance use evaluate for inpatient medically supervised detox protocol Referred by:: Flavia Diaz MD - History History of Present Illness: Chart reviewed, labs reviewed, imaging reviewed. Patient seen and examined, case discussed with medical staff. 46 yo m w h/o opioid use disorder, severee, cocaine and nicotine dependence known from [facility] admissions to [facility] for heroin detoxifciation. PMHX asthma, copd, anxiety, depression and isnomnia. Patient uses heorin daily sniffs 6 bafgs last used a couple days prior to admission, stopped becauase his astham was worsening. patiet understands sniffing heroin is contributing to his asthma worsening and he can from asthma. In asddition he rgularly smokes crakc although not everyday. he denies alcohol and benzodiazepien use although he came up +ve in his utox which is most likely because the cut in the cocaine and heroin. Patient educated regarding the need for medicated assisted treatment after detox with buprenorphine or methadone and advised to attend rehab at [facility] when he is medically stable. 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 Cardio/Vascular: No: AFIB Pulmonary: Yes: Asthma Gastrointestinal: No: Ascites Hepatobiliary: No: Cirrhosis Renal/: No: Renal Failure Psych: Yes: Addictions (heroin) - Past Surgical History Past Surgical History: Yes: None - Significant Medical Findings: 46 yo m admitted with acute exacerbation of asthma 2/2 smoking crack and sniffing heroin, now in withdrawal on detox regimen with wymptomatic relief of withdrawal sx COWS - Scale Resting Pulse: 1= TN 81-100 Sweatin= No chills or Flushing Restless Observation: 0= Sits Still Pupil Size: 0= Normal to Room Light Bone or Joint Aches: 1= Mild Discomfort Runny Nose/ Eye Tearin= Nasal Congestion GI Upset > 30mins: 1= Stomach Cramp Tremor Observation: 1= Tremor [place], Not Seen Yawning Observation: 0= None Anxiety or Irritability: 2=Irritable/Anxious Goose Flesh Skin: 0=Smooth Skin COWS Score: 7 Assessment Plan - Diagnosis (1) Cocaine dependence, uncomplicated Status: Acute (2) Nicotine dependence Status: Acute Qualifiers: Nicotine product type: cigarettes Substance use status: in withdrawal Qualified Code(s): F17.213 - Nicotine dependence, cigarettes, with withdrawal (3) Opioid dependence with withdrawal Status: Acute (4) Acute asthma exacerbation Status: Acute Qualifiers: Asthma severity: mild Asthma persistence: unspecified Qualified Code(s): J45.901 - Unspecified asthma with (acute) exacerbation (5) Acute exacerbation of chronic obstructive pulmonary disease (COPD) Status: Chronic - Medication Detox Regimen/Protocol: Methadone/Valium
[2017-03-26] MEDS ORDERED: ZOLPIDEM TARTRATE 5 MG TABLET PO PRN (17:38)
[2017-03-26] MEDS ORDERED: cloNIDine HCL 0.1 MG TABLET PO ONE (17:40)
[2017-03-26] MEDS: ALBUTEROL SO4 2.5/IPRATROPIUM 0.5 INH SOL 3 ML VIAL.NEB. NEB SCH ×2 (17:41→22:47)
[2017-03-26] MEDS: NICOTINE 21 MG/24 HOURS TOPICAL PATCH TD SCH ×2 (17:54→18:00)
[2017-03-26] MEDS: PRENATAL VITAMINS W/ FOLIC ACID TABLET (FP) PO SCH (18:54)
--- NOTE | 2017-03-26 18:58 | HP ---
Admitting History and Physical - Admission History of Present Illness: Patient is a 46-year-old male with history of asthma, h/o substance abuse, complaining of asthma symptoms 1 day. States he used his MDI yesterday, but today he had to use his nebulizer about midday. States he was fine until about 0330 when he woke up could not breathe. EMS was called and was brought into the ER for evaluation. He has had no intubations for his asthma but has been on steroids intermittently. On arrival patient with decreased air entry history limited due to respiratory compromise. 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 Cardiovascular: No: AFIB Pulmonary: Yes: Asthma Gastrointestinal: No: Ascites Hepatobiliary: No: Cirrhosis Renal/: No: Renal Failure Heme/Onc: No: Anemia Psych: Yes: Addictions (heroin) - Past Surgical History Past Surgical History: Yes: None - Smoking History Smoking history: Current every day smoker Have you smoked in the past 12 months: Yes Aproximately how many cigarettes per day: 10 If you are a former smoker, when did you quit?: 2014 - Alcohol/Substance Use Hx Alcohol Use: No History of Substance Use: reports: Heroin - Social History ADL: Independent Occupation: Unemployed History of Recent Travel: No Home Medications - Allergies Allergies/Adverse Reactions: Allergies Allergy/AdvReac Type Severity Reaction Status Date / Time No Known Allergies Allergy Verified 03/11/17 10:34 - Home Medications Home Medications: Ambulatory Orders Albuterol Sulfate [Proventil HFA Inhaler -] 1 - 2 inh PO QID #1 inhaler Montelukast Na [Singulair -] 10 mg PO HS #30 tablet 07/29/16 Budesonide/Formeterol Fumarate [SYMBICORT 160/4.5mcg -] 1 inh PO BID #1 cannister 08/14/16 Family Disease History - Family Disease History Family Disease History: Diabetes: Mother, CA: Father (.) Physical Examination Vital Signs: Vital Signs Temperature 97.3 F L 03/26/17 16:30 Pulse Rate 104 H 03/26/17 16:30 Respiratory Rate 22 03/26/17 16:30 Blood Pressure 135/75 03/26/17 16:30 O2 Sat by Pulse Oximetry (%) 98 03/26/17 12:43 Labs: CBC, BMP 03/26/17 05:24 03/26/17 05:24
[2017-03-26] MEDS: ALBUTEROL SO4 18 GM HFA INHALER IH SCH (21:22)
[2017-03-26] MEDS: MONTELUKAST NA 10 MG TABLET PO SCH (21:23)
[2017-03-26] MEDS: cloNIDine HCL 0.1 MG TABLET PO SCH (21:23)
[2017-03-26] MEDS: HEPARIN NA (PORCINE) 5,000 UNITS/ML 1ML VIAL SQ SCH (21:23)
[2017-03-26] MEDS: BUDESONIDE/FORMETEROL FUMARATE 160/4.5 mcg INHALER IH SCH (21:24)
[2017-03-26] MEDS: THIAMINE HCL 100 MG TABLET (FP) PO SCH (21:24)
[2017-03-26] MEDS: diazePAM 5 MG TABLET PO SCH (21:24)
[2017-03-27] MEDS: ALBUTEROL SO4 18 GM HFA INHALER IH SCH ×4 (00:07→17:30)
[2017-03-27] MEDS: ALBUTEROL SO4 0.083% IH SOL 2.5 MG/3 ML VIAL.NEB. NEB PRN (00:16)
[2017-03-27] MEDS: ALBUTEROL SO4 2.5/IPRATROPIUM 0.5 INH SOL 3 ML VIAL.NEB. NEB SCH ×6 (02:00→22:25)
[2017-03-27] MEDS: methylPREDNISolone NA SUCC 40 MG/1 ML VIAL IVPUSH SCH ×4 (02:24→21:02)
[2017-03-27] MEDS: diazePAM 5 MG TABLET PO SCH ×3 (05:49→21:04)
[2017-03-27] MEDS ORDERED: METHADONE HCL 10 MG TABLET PO SCH (10:00)
[2017-03-27] MEDS: PRENATAL VITAMINS W/ FOLIC ACID TABLET (FP) PO SCH (10:38)
[2017-03-27] MEDS: FLUTICASONE/SALMETEROL 100 MCG/50 MCG DISKUS IH SCH ×2 (10:38→21:02)
[2017-03-27] MEDS: BUDESONIDE/FORMETEROL FUMARATE 160/4.5 mcg INHALER IH SCH ×2 (10:38→21:03)
[2017-03-27] MEDS: NICOTINE 21 MG/24 HOURS TOPICAL PATCH TD SCH (10:39)
[2017-03-27] MEDS: HEPARIN NA (PORCINE) 5,000 UNITS/ML 1ML VIAL SQ SCH ×2 (10:39→21:03)
[2017-03-27] MEDS: cloNIDine HCL 0.1 MG TABLET PO SCH ×2 (10:39→21:03)
--- NOTE | 2017-03-27 11:28 | PN ---
Progress Note (short form) - Note Progress Note: PULMONARY Breathing better but not at baseline. +cough mostly nonproductive and wheezing. Last Vital Signs Temp Pulse Resp BP Pulse Ox 97.4 F L 92 H 22 121/62 98 03/27/17 02:25 03/27/17 02:25 03/27/17 02:25 03/27/17 02:25 03/26/17 21:00 Gen: NAD at rest Heart: RRR Lung: scattered rhonchi, wheezes Abd: soft, nontender Ext: no edema CBC, BMP 03/26/17 05:24 03/26/17 05:24 Active Medications Albuterol Sulfate (Ventolin 0.083% Nebulizer Soln -) 1 amp NEB Q1H PRN PRN Reason: SHORT OF BREATH/WHEEZING Last Admin: 03/27/17 00:16 Dose: 1 amp Albuterol Sulfate (Ventolin Hfa Inhaler -) 2 puff IH QIDR [facility] Last Admin: 03/27/17 05:48 Dose: 2 puff Albuterol/Ipratropium (Duoneb -) 1 amp NEB Q4HPO [facility] Last Admin: 03/27/17 06:38 Dose: 1 amp Budesonide/Formoterol Fumarate (Symbicort 160/4.5mcg -) 1 puff IH BID [facility] Last Admin: 03/27/17 10:38 Dose: 1 puff Clonidine (Catapres -) 0.1 mg PO BID [facility] Last Admin: 03/27/17 10:39 Dose: 0.1 mg Diazepam (Valium -) 5 mg PO TID [facility] Stop: 03/27/17 22:01 Last Admin: 03/27/17 05:49 Dose: Not Given Diazepam (Valium -) 5 mg PO BID [facility] Stop: 03/29/17 22:01 Diazepam (Valium -) 5 mg PO DAILY [facility] Stop: 03/30/17 10:01 Diazepam (Valium -) 10 mg PO Q4H PRN PRN Reason: WITHDRAWAL(CONT SUBST) Stop: 03/29/17 17:34 Heparin Sodium (Porcine) (Heparin -) 5,000 unit SQ BID [facility] Last Admin: 03/27/17 10:39 Dose: 5,000 unit Hydroxyzine Pamoate (Vistaril -) 50 mg PO Q4H PRN PRN Reason: ANXIETY Methadone HCl (Dolophine -) 10 mg PO DAILY [facility] Stop: 03/30/17 10:01 Methadone HCl (Dolophine -) 15 mg PO DAILY [facility] Stop: 03/29/17 10:01 Methadone HCl (Dolophine -) 5 mg PO DAILY@0600 [facility] Stop: 03/31/17 06:01 Methylprednisolone Sodium Succinate (Solu-Medrol -) 40 mg IVPUSH Q6H-IV [facility] Last Admin: 03/27/17 08:33 Dose: 40 mg Montelukast Sodium (Singulair -) 10 mg PO HS [facility] Last Admin: 03/26/17 21:23 Dose: 10 mg Nicotine (Nicoderm Patch -) 21 mg TD DAILY [facility] Last Admin: 03/27/17 10:39 Dose: Not Given Nicotine Polacrilex (Nicorette Gum -) 2 mg BC Q2H PRN PRN Reason: Nicotine Replacement Rx Multivit/Folic Acid/Iron ( Vitamins (Sjr) -) 1 tab PO DAILY [facility] Last Admin: 03/27/17 10:38 Dose: 1 tab Fluticasone/Salmeterol (Advair 100mcg/50mcg -) 1 puff IH BID [facility] Last Admin: 03/27/17 10:38 Dose: 1 puff Thiamine HCl (Vitamin B1 -) 100 mg PO HS [facility] Last Admin: 03/26/17 21:24 Dose: 100 mg Zolpidem Tartrate (Ambien -) 10 mg PO HS PRN PRN Reason: INSOMNIA A/P Acute Asthma Exacerbation Polysubstance Abuse - continue medrol at current dose - can start to taper in AM if continues to improve - inhaled bronchodilators - singulair - monitor peak flow - DVT prophylaxis
[2017-03-27] MEDS ORDERED: PT OWN MED DRAWER 7, Y5N ONE ×3 (13:12→22:23)
--- NOTE | 2017-03-27 16:02 | PN ---
Physical Exam: SUBJECTIVE: Patient seen and examined. No acute events overnight. Pt reports that breathing is possibly a little better compared to yesterday. He still has a dry cough. He denies all other symptoms. OBJECTIVE: Vital Signs Period Temp Pulse Resp BP Sys/Devries Pulse Ox Last 24 Hr 97.3 F-98.3 F 84-104 18-22 97-137/52-75 97-98 GENERAL: middle aged male, obese, sitting in bed, in distress HEENT: no rhinorrhea NECK: several cm healing ulcer on back of neck LUNGS: diffuse wheezing still present HEART: Regular rate and rhythm, normal S1 and S2 without murmur, rub or gallop. ABDOMEN: Soft, nontender, not distended, normoactive bowel sounds, no guarding, no rebound, no masses. No hepatomegaly or splenomegaly. MUSCULOSKELETAL: 1+ LE edema b/l NEUROLOGICAL: Cranial nerves II-XII intact. Normal speech. PSYCHIATRIC: Cooperative. Good eye contact. Appropriate mood and affect. SKIN: Warm, dry, normal turgor, no rashes or lesions noted. Active Medications Generic Name Dose Route Start Last Admin Trade Name Freq PRN Reason Stop Dose Admin Albuterol Sulfate 1 amp 03/26/17 13:02 03/27/17 00:16 Ventolin 0.083% Nebulizer Soln - NEB 1 amp Q1H PRN Administration SHORT OF BREATH/WHEEZING Albuterol Sulfate 2 puff 03/26/17 18:00 03/27/17 13:55 Ventolin Hfa Inhaler - IH 2 puff QIDR [facility] Administration Albuterol/Ipratropium 1 amp 03/26/17 16:34 03/27/17 13:29 Duoneb - NEB 1 amp Q4HPO [facility] Administration Budesonide/Formoterol Fumarate 1 puff 03/26/17 22:00 03/27/17 10:38 Symbicort 160/4.5mcg - IH 1 puff BID [facility] Administration Clonidine 0.1 mg 03/26/17 22:00 03/27/17 10:39 Catapres - PO 0.1 mg BID [facility] Administration Diazepam 5 mg 03/26/17 22:00 03/27/17 13:00 Valium - PO 03/27/17 22:01 Not Given TID [facility] Diazepam 5 mg 03/28/17 10:00 Valium - PO 03/29/17 22:01 BID [facility] Diazepam 5 mg 03/30/17 10:00 Valium - PO 03/30/17 10:01 DAILY [facility] Diazepam 10 mg 03/26/17 17:34 Valium - PO 03/29/17 17:34 Q4H PRN WITHDRAWAL(CONT SUBST) Heparin Sodium (Porcine) 5,000 unit 03/26/17 22:00 03/27/17 10:39 Heparin - SQ 5,000 unit BID [facility] Administration Hydroxyzine Pamoate 50 mg 03/26/17 17:34 Vistaril - PO Q4H PRN ANXIETY Methadone HCl 10 mg 03/30/17 10:00 Dolophine - PO 03/30/17 10:01 DAILY [facility] Methadone HCl 15 mg 03/28/17 10:00 Dolophine - PO 03/29/17 10:01 DAILY [facility] Methadone HCl 5 mg 03/31/17 06:00 Dolophine - PO 03/31/17 06:01 DAILY@0600 [facility] Methylprednisolone Sodium Succinate 40 mg 03/26/17 13:00 03/27/17 15:23 Solu-Medrol - IVPUSH 40 mg Q6H-IV [facility] Administration Montelukast Sodium 10 mg 03/26/17 22:00 03/26/17 21:23 Singulair - PO 10 mg HS [facility] Administration Nicotine 21 mg 03/26/17 17:45 03/27/17 10:39 Nicoderm Patch - TD Not Given DAILY [facility] Nicotine Polacrilex 2 mg 03/26/17 17:34 Nicorette Gum - BC Q2H PRN Nicotine Replacement Rx Multivit/Folic Acid/Iron 1 tab 03/26/17 17:45 03/27/17 10:38 Vitamins (Sjr) - PO 1 tab DAILY [facility] Administration Fluticasone/Salmeterol 1 puff 03/26/17 13:00 03/27/17 10:38 Advair 100mcg/50mcg - IH 1 puff BID [facility] Administration Thiamine HCl 100 mg 03/26/17 22:00 03/26/17 21:24 Vitamin B1 - PO 100 mg HS [facility] Administration Zolpidem Tartrate 10 mg 03/26/17 17:38 Ambien - PO HS PRN INSOMNIA ASSESSMENT/PLAN: 46M w/ hx of asthma presenting with several days of SOB. #asthma exacerbation -solumedrol -inhaled BD -continue home singulair, symbicort -O2 via NC -trend eosinophilia -outpt PFTs -outpt IgE Rest of care per medical team. Case discussed with attending, Dr. Rdz. Dispo: We will continue to follow the patient. Thank you for this consultative opportunity. -Ronald Coyle MD PGY1 Pulmonology Team Visit type - Emergency Visit Emergency Visit: Yes ED Registration Date: 03/26/17 Care time: The patient presented to the Emergency Department on the above date and was hospitalized for further evaluation of their emergent condition. - New Patient This patient is new to me today: No - Critical Care Critical Care patient: No
[2017-03-27] MEDS: MONTELUKAST NA 10 MG TABLET PO SCH (21:03)
[2017-03-27] MEDS: THIAMINE HCL 100 MG TABLET (FP) PO SCH (21:04)
--- NOTE | 2017-03-27 23:08 | PN ---
Progress Note, Physician - Current Medication List Current Medications: Active Medications Albuterol Sulfate (Ventolin 0.083% Nebulizer Soln -) 1 amp NEB Q1H PRN PRN Reason: SHORT OF BREATH/WHEEZING Last Admin: 03/27/17 00:16 Dose: 1 amp Albuterol Sulfate (Ventolin Hfa Inhaler -) 2 puff IH QIDR [facility] Last Admin: 03/27/17 17:30 Dose: 2 puff Albuterol/Ipratropium (Duoneb -) 1 amp NEB Q4HPO [facility] Last Admin: 03/27/17 22:25 Dose: 1 amp Budesonide/Formoterol Fumarate (Symbicort 160/4.5mcg -) 1 puff IH BID [facility] Last Admin: 03/27/17 21:03 Dose: 1 puff Clonidine (Catapres -) 0.1 mg PO BID [facility] Last Admin: 03/27/17 21:03 Dose: 0.1 mg Diazepam (Valium -) 5 mg PO BID [facility] Stop: 03/29/17 22:01 Diazepam (Valium -) 5 mg PO DAILY [facility] Stop: 03/30/17 10:01 Diazepam (Valium -) 10 mg PO Q4H PRN PRN Reason: WITHDRAWAL(CONT SUBST) Stop: 03/29/17 17:34 Heparin Sodium (Porcine) (Heparin -) 5,000 unit SQ BID [facility] Last Admin: 03/27/17 21:03 Dose: 5,000 unit Hydroxyzine Pamoate (Vistaril -) 50 mg PO Q4H PRN PRN Reason: ANXIETY Methadone HCl (Dolophine -) 10 mg PO DAILY [facility] Stop: 03/30/17 10:01 Methadone HCl (Dolophine -) 15 mg PO DAILY [facility] Stop: 03/29/17 10:01 Methadone HCl (Dolophine -) 5 mg PO DAILY@0600 [facility] Stop: 03/31/17 06:01 Methylprednisolone Sodium Succinate (Solu-Medrol -) 40 mg IVPUSH Q6H-IV [facility] Last Admin: 03/27/17 21:02 Dose: 40 mg Montelukast Sodium (Singulair -) 10 mg PO HS [facility] Last Admin: 03/27/17 21:03 Dose: 10 mg Nicotine (Nicoderm Patch -) 21 mg TD DAILY [facility] Last Admin: 03/27/17 10:39 Dose: Not Given Nicotine Polacrilex (Nicorette Gum -) 2 mg BC Q2H PRN PRN Reason: Nicotine Replacement Rx Multivit/Folic Acid/Iron ( Vitamins (Sjr) -) 1 tab PO DAILY [facility] Last Admin: 03/27/17 10:38 Dose: 1 tab Fluticasone/Salmeterol (Advair 100mcg/50mcg -) 1 puff IH BID [facility] Last Admin: 03/27/17 21:02 Dose: 1 puff Thiamine HCl (Vitamin B1 -) 100 mg PO HS [facility] Last Admin: 03/27/17 21:04 Dose: 100 mg Zolpidem Tartrate (Ambien -) 10 mg PO HS PRN PRN Reason: INSOMNIA - Objective Vital Signs: Vital Signs Temperature 98.0 F 03/27/17 18:47 Pulse Rate 88 03/27/17 18:47 Respiratory Rate 18 03/27/17 21:00 Blood Pressure 124/63 03/27/17 18:47 O2 Sat by Pulse Oximetry (%) 97 03/27/17 21:00 Labs: CBC, BMP 03/26/17 05:24 03/26/17 05:24
[2017-03-28] MEDS: ALBUTEROL SO4 2.5/IPRATROPIUM 0.5 INH SOL 3 ML VIAL.NEB. NEB SCH ×4 (02:05→13:36)
[2017-03-28] MEDS: methylPREDNISolone NA SUCC 40 MG/1 ML VIAL IVPUSH SCH ×2 (03:00→10:58)
[2017-03-28] MEDS: ALBUTEROL SO4 18 GM HFA INHALER IH SCH ×3 (06:00→12:43)
[2017-03-28] MEDS ORDERED: METHADONE HCL 5 MG TABLET PO SCH (10:00)
[2017-03-28] MEDS ORDERED: diazePAM 5 MG TABLET PO SCH (10:00)
[2017-03-28] MEDS ORDERED: PT OWN MED DRAWER 7, Y5N ONE (10:55)
[2017-03-28] MEDS: FLUTICASONE/SALMETEROL 100 MCG/50 MCG DISKUS IH SCH (10:58)
[2017-03-28] MEDS: HEPARIN NA (PORCINE) 5,000 UNITS/ML 1ML VIAL SQ SCH (10:59)
[2017-03-28] MEDS: cloNIDine HCL 0.1 MG TABLET PO SCH (10:59)
[2017-03-28] MEDS: NICOTINE 21 MG/24 HOURS TOPICAL PATCH TD SCH ×2 (11:00→11:08)
[2017-03-28] MEDS: BUDESONIDE/FORMETEROL FUMARATE 160/4.5 mcg INHALER IH SCH (11:00)
[2017-03-28] MEDS: PRENATAL VITAMINS W/ FOLIC ACID TABLET (FP) PO SCH (11:00)
--- NOTE | 2017-03-28 12:12 | PN ---
Progress Note, Physician History of Present Illness: PULMONARY ALERT,FEELING BETTER,SOB IMPROVING,+ COUGH - Current Medication List Current Medications: Active Medications Albuterol Sulfate (Ventolin 0.083% Nebulizer Soln -) 1 amp NEB Q1H PRN PRN Reason: SHORT OF BREATH/WHEEZING Last Admin: 03/27/17 00:16 Dose: 1 amp Albuterol Sulfate (Ventolin Hfa Inhaler -) 2 puff IH QIDR [facility] Last Admin: 03/28/17 06:00 Dose: 2 puff Albuterol/Ipratropium (Duoneb -) 1 amp NEB Q4HPO [facility] Last Admin: 03/28/17 10:55 Dose: 1 amp Budesonide/Formoterol Fumarate (Symbicort 160/4.5mcg -) 1 puff IH BID [facility] Last Admin: 03/28/17 11:00 Dose: 1 puff Clonidine (Catapres -) 0.1 mg PO BID [facility] Last Admin: 03/28/17 10:59 Dose: 0.1 mg Diazepam (Valium -) 5 mg PO BID [facility] Stop: 03/29/17 22:01 Last Admin: 03/28/17 10:59 Dose: 5 mg Diazepam (Valium -) 5 mg PO DAILY [facility] Stop: 03/30/17 10:01 Diazepam (Valium -) 10 mg PO Q4H PRN PRN Reason: WITHDRAWAL(CONT SUBST) Stop: 03/29/17 17:34 Heparin Sodium (Porcine) (Heparin -) 5,000 unit SQ BID [facility] Last Admin: 03/28/17 10:59 Dose: 5,000 unit Hydroxyzine Pamoate (Vistaril -) 50 mg PO Q4H PRN PRN Reason: ANXIETY Methadone HCl (Dolophine -) 10 mg PO DAILY [facility] Stop: 03/30/17 10:01 Methadone HCl (Dolophine -) 15 mg PO DAILY [facility] Stop: 03/29/17 10:01 Last Admin: 03/28/17 10:59 Dose: 15 mg Methadone HCl (Dolophine -) 5 mg PO DAILY@0600 [facility] Stop: 03/31/17 06:01 Methylprednisolone Sodium Succinate (Solu-Medrol -) 40 mg IVPUSH Q6H-IV [facility] Last Admin: 03/28/17 10:58 Dose: 40 mg Montelukast Sodium (Singulair -) 10 mg PO HS [facility] Last Admin: 03/27/17 21:03 Dose: 10 mg Nicotine (Nicoderm Patch -) 21 mg TD DAILY [facility] Last Admin: 03/28/17 11:08 Dose: Not Given Nicotine Polacrilex (Nicorette Gum -) 2 mg BC Q2H PRN PRN Reason: Nicotine Replacement Rx Multivit/Folic Acid/Iron ( Vitamins (Sjr) -) 1 tab PO DAILY [facility] Last Admin: 03/28/17 11:00 Dose: 1 tab Fluticasone/Salmeterol (Advair 100mcg/50mcg -) 1 puff IH BID [facility] Last Admin: 03/28/17 10:58 Dose: 1 puff Thiamine HCl (Vitamin B1 -) 100 mg PO HS [facility] Last Admin: 03/27/17 21:04 Dose: 100 mg Zolpidem Tartrate (Ambien -) 10 mg PO HS PRN PRN Reason: INSOMNIA Last Admin: 03/28/17 01:27 Dose: 10 mg - Objective Vital Signs: Vital Signs Temperature 98 F 03/28/17 06:00 Pulse Rate 80 03/28/17 06:00 Respiratory Rate 20 03/28/17 06:00 Blood Pressure 122/68 03/28/17 06:00 O2 Sat by Pulse Oximetry (%) 97 03/27/17 21:00 Constitutional: Yes: Well Nourished, Calm Eyes: Yes: WNL HENT: Yes: WNL Neck: Yes: WNL Cardiovascular: Yes: Regular Rate and Rhythm, S1, S2 Respiratory: Yes: Wheezes (FEW SCATTERED KAREN WHEEZES) Gastrointestinal: Yes: Normal Bowel Sounds, Soft Extremities: Yes: WNL Edema: No Labs: Problem List - Problems (1) Asthma exacerbation Code(s): J45.901 - UNSPECIFIED ASTHMA WITH (ACUTE) EXACERBATION Qualifiers: Asthma severity: severe Asthma persistence: persistent Qualified Code(s) : J45.51 - Severe persistent asthma with (acute) exacerbation (2) Acute bronchospasm Code(s): J98.01 - ACUTE BRONCHOSPASM (3) Cocaine dependence, uncomplicated Code(s): F14.20 - COCAINE DEPENDENCE, UNCOMPLICATED Assessment/Plan /P Acute Asthma Exacerbation improving Polysubstance Abuse - medrol taper - inhaled bronchodilators - singulair - monitor peak flow - DVT prophylaxis DR THOMPSON
[2017-03-28] MEDS ORDERED: BUDESONIDE/FORMETEROL FUMARATE 160/4.5 mcg INHALER IH SCH (12:14)
--- NOTE | 2017-03-28 15:38 | PN ---
Physical Exam: SUBJECTIVE: Patient seen and examined. No acute events overnight. Pt reports improved breathing and cough. No other complaints. OBJECTIVE: Vital Signs Period Temp Pulse Resp BP Sys/Devries Pulse Ox Last 24 Hr 98 F-98.0 F 80-88 18-20 122-124/63-68 97 GENERAL: middle aged male, obese, sitting in bed, in distress HEENT: no rhinorrhea NECK: several cm healing ulcer on back of neck LUNGS: mild wheezing at bases HEART: Regular rate and rhythm, normal S1 and S2 without murmur, rub or gallop. ABDOMEN: Soft, nontender, not distended, normoactive bowel sounds, no guarding, no rebound, no masses. No hepatomegaly or splenomegaly. MUSCULOSKELETAL: 1+ LE edema b/l NEUROLOGICAL: Cranial nerves II-XII intact. Normal speech. PSYCHIATRIC: Cooperative. Good eye contact. Appropriate mood and affect. SKIN: Warm, dry, normal turgor, no rashes or lesions noted. Active Medications Generic Name Dose Route Start Last Admin Trade Name Freq PRN Reason Stop Dose Admin Albuterol Sulfate 1 amp 03/26/17 13:02 03/27/17 00:16 Ventolin 0.083% Nebulizer Soln - NEB 1 amp Q1H PRN Administration SHORT OF BREATH/WHEEZING Albuterol Sulfate 2 puff 03/26/17 18:00 03/28/17 12:43 Ventolin Hfa Inhaler - IH 2 puff QIDR [facility] Administration Albuterol/Ipratropium 1 amp 03/26/17 16:34 03/28/17 13:36 Duoneb - NEB Not Given Q4HPO [facility] Budesonide/Formoterol Fumarate 2 puff 03/28/17 12:14 Symbicort 160/4.5mcg - IH BID [facility] Clonidine 0.1 mg 03/26/17 22:00 03/28/17 10:59 Catapres - PO 0.1 mg BID [facility] Administration Diazepam 5 mg 03/28/17 10:00 03/28/17 10:59 Valium - PO 03/29/17 22:01 5 mg BID [facility] Administration Diazepam 5 mg 03/30/17 10:00 Valium - PO 03/30/17 10:01 DAILY [facility] Diazepam 10 mg 03/26/17 17:34 Valium - PO 03/29/17 17:34 Q4H PRN WITHDRAWAL(CONT SUBST) Heparin Sodium (Porcine) 5,000 unit 03/26/17 22:00 03/28/17 10:59 Heparin - SQ 5,000 unit BID [facility] Administration Hydroxyzine Pamoate 50 mg 03/26/17 17:34 Vistaril - PO Q4H PRN ANXIETY Methadone HCl 10 mg 03/30/17 10:00 Dolophine - PO 03/30/17 10:01 DAILY [facility] Methadone HCl 15 mg 03/28/17 10:00 03/28/17 10:59 Dolophine - PO 03/29/17 10:01 15 mg DAILY [facility] Administration Methadone HCl 5 mg 03/31/17 06:00 Dolophine - PO 03/31/17 06:01 DAILY@0600 [facility] Methylprednisolone Sodium Succinate 40 mg 03/28/17 18:00 Solu-Medrol - IVPUSH Q8H-IV [facility] Montelukast Sodium 10 mg 03/26/17 22:00 03/27/17 21:03 Singulair - PO 10 mg HS [facility] Administration Nicotine 21 mg 03/26/17 17:45 03/28/17 11:08 Nicoderm Patch - TD Not Given DAILY [facility] Nicotine Polacrilex 2 mg 03/26/17 17:34 Nicorette Gum - BC Q2H PRN Nicotine Replacement Rx Multivit/Folic Acid/Iron 1 tab 03/26/17 17:45 03/28/17 11:00 Vitamins (Sjr) - PO 1 tab DAILY [facility] Administration Fluticasone/Salmeterol 1 puff 03/26/17 13:00 03/28/17 10:58 Advair 100mcg/50mcg - IH 1 puff BID [facility] Administration Thiamine HCl 100 mg 03/26/17 22:00 03/27/17 21:04 Vitamin B1 - PO 100 mg HS [facility] Administration Zolpidem Tartrate 10 mg 03/26/17 17:38 03/28/17 01:27 Ambien - PO 10 mg HS PRN Administration INSOMNIA ASSESSMENT/PLAN: 46M w/ hx of asthma presenting with several days of SOB. #asthma exacerbation -solumedrol taper -inhaled BD -continue home singulair, symbicort -O2 via NC -trend eosinophilia -outpt PFTs -outpt IgE Rest of care per medical team. Case discussed with attending, Dr. Thomas. Dispo: We will continue to follow the patient. Thank you for this consultative opportunity. -Ronald Coyle MD PGY1 Pulmonology Team Visit type - Emergency Visit Emergency Visit: Yes ED Registration Date: 03/26/17 Care time: The patient presented to the Emergency Department on the above date and was hospitalized for further evaluation of their emergent condition. - New Patient This patient is new to me today: No - Critical Care Critical Care patient: No
[2017-03-28 15:48] VITALS: BP 112/54; PULSE 94; TEMP 97.4
[2017-03-28] MEDS ORDERED: methylPREDNISolone NA SUCC 40 MG/1 ML VIAL IVPUSH SCH (18:00)
[2017-03-30] MEDS ORDERED: METHADONE HCL 10 MG TABLET PO SCH (10:00)
[2017-03-30] MEDS ORDERED: diazePAM 5 MG TABLET PO SCH (10:00)
[2017-03-31] MEDS ORDERED: METHADONE HCL 5 MG TABLET PO SCH (06:00)
== END 2017-03-28 16:53 | disposition left against medical advice (07) | DRG 140 ==
LOC: JER 04:17 → JERBED 07:02 → J8W 08:50
PROVIDERS: ADMIT Internal Medicine; ATTEND Internal Medicine
DX: J44.1 Chronic obstructive pulmonary disease with (acute) exacerbation (principal); J45.51 Severe persistent asthma with (acute) exacerbation; F14.20 Cocaine dependence, uncomplicated; F11.10 Opioid abuse, uncomplicated; F41.8 Other specified anxiety disorders; G47.09 Other insomnia; F17.200 Nicotine dependence, unspecified, uncomplicated; E66.8 Other obesity; Z68.37 Body mass index [BMI] 37.0-37.9, adult; R06.03 Acute respiratory distress; R60.0 Localized edema
CPT/HCPCS: 36415; 71010-TC; 80053; 80307; 82550; 82553; 83880; 84484; 85025; 87070; 87205; 87804; 93005; 93010; 94150; 94640; 99283-25; J1644

== ENCOUNTER 2017-04-08 02:05 | Emergency (ER) | payer OTHER ==
[2017-04-08 02:46] VITALS: BP 140/74; BMI 27.3
--- NOTE | 2017-04-08 03:27 | PDOC ---
History of Present Illness - General History Source: Patient Exam Limitations: No Limitations - History of Present Illness Initial Comments: 04/08/17 03:39 The patient is a 46 year old male with a significant PMH of COPD and opiate abuse who presents to the emergency department with wheezing and dyspnea that began at approximately 1:30AM this morning after heroin use. The patient reports his dyspnea has resolved and is doing better after albuterol dose at the ER.The patient is still complaining of wheezing. The patient denies any increased sputum production. The patient denies chest pain, headache and dizziness. Denies fever, chills, nausea, vomit, diarrhea and constipation. Allergies: NKA Past surgical history: None reported. Social history: Current smoker; opiate abuse. No alcohol use reported. PCP: Dr. Eric Yanez <Dayna Santos - Last Filed: 04/08/17 03:39> <Janet Eastman - Last Filed: 04/08/17 19:56> - General Chief Complaint: Respiratory Stated Complaint: DIFFICULTY BREATHING Time Seen by Provider: 04/08/17 03:10 Past History <Dayna Santos - Last Filed: 04/08/17 03:39> - Past Medical History Anemia: No Asthma: Yes Cancer: No Cardiac Disorders: No CVA: No COPD: Yes CHF: No Dementia: No Diabetes: No GI Disorders: No Disorders: No HTN: No Hypercholesterolemia: No Kidney Stones: No Liver Disease: No Seizures: No Thyroid Disease: No - Surgical History Abdominal Surgery: No Appendectomy: No Cardiac Surgery: No Cholecystectomy: No Lung Surgery: No Neurologic Surgery: No Orthopedic Surgery: No - Reproductive History Testicular Surgery: No - Immunization History Td Vaccination: Yes Immunization Up to Date: Yes - Suicide/Smoking/Psychosocial Hx Smoking Status: Yes Smoking History: Former smoker Years of Tobacco Use: 40 Have you smoked in the past 12 months: Yes Number of Cigarettes Smoked Daily: 10 If you are a former smoker, when did you quit?: 2014 Cigars Per Day: 0 Information on smoking cessation initiated: No 'Breaking Loose' booklet given: 03/11/17 Hx Alcohol Use: No Drug/Substance Use Hx: Yes Substance Use Type: Cocaine, Heroin Hx Substance Use Treatment: Yes (last detox 07/2015 [facility]) <Janet Eastman - Last Filed: 04/08/17 19:56> - Past Medical History Allergies/Adverse Reactions: Allergies Allergy/AdvReac Type Severity Reaction Status Date / Time No Known Allergies Allergy Verified 03/11/17 10:34 Home Medications: Ambulatory Orders Albuterol Sulfate [Proventil HFA Inhaler -] 1 - 2 inh PO QID #1 inhaler Montelukast Na [Singulair -] 10 mg PO HS #30 tablet 07/29/16 Budesonide/Formeterol Fumarate [SYMBICORT 160/4.5mcg -] 1 inh PO BID #1 cannister 08/14/16 Review of Systems - Review of Systems Able to Perform ROS?: Yes Comments:: 04/08/17 03:35 GENERAL/CONSTITUTIONAL: No fever or chills. No weakness. HEAD, EYES, EARS, NOSE AND THROAT: No change in vision. No ear pain or discharge. No sore throat. CARDIOVASCULAR: No chest pain or shortness of breath. RESPIRATORY: (+) Wheezing. (+) Dyspnea. No cough or hemoptysis. GASTROINTESTINAL: No nausea, vomiting, diarrhea or constipation. GENITOURINARY: No dysuria, frequency, or change in urination. MUSCULOSKELETAL: No joint or muscle swelling or pain. No neck or back pain. SKIN: No rash NEUROLOGIC: No headache, vertigo, loss of consciousness, or change in strength/ sensation. ENDOCRINE: No increased thirst. No abnormal weight change. HEMATOLOGIC/LYMPHATIC: No anemia, easy bleeding, or history of blood clots. ALLERGIC/IMMUNOLOGIC: No hives or skin allergy. <Dayna Santos - Last Filed: 04/08/17 03:39> *Physical Exam - Vital Signs Last Vital Signs Temp Pulse Resp BP Pulse Ox 103 H 28 H 140/74 97 04/08/17 02:36 04/08/17 02:05 04/08/17 02:05 04/08/17 02:36 - Physical Exam Comments: 04/08/17 03:33 GENERAL: Awake, alert, and fully oriented, in no acute distress HEAD: No signs of trauma EYES: PERRLA, EOMI, sclera anicteric, conjunctiva clear ENT: Auricles normal inspection, hearing grossly normal, nares patent, oropharynx clear without exudates. Moist mucosa NECK: Normal ROM, supple, no lymphadenopathy, JVD, or masses LUNGS: (+) Inspiratory and expiratory wheezing. No crackles or rales. HEART: Regular rate and rhythm, normal S1 and S2, no murmurs, rubs or gallops ABDOMEN: Soft, nontender, normoactive bowel sounds. No guarding, no rebound. No masses EXTREMITIES: Normal range of motion, no edema. No clubbing or cyanosis. No cords , erythema, or tenderness NEUROLOGICAL: Cranial nerves II through XII grossly intact. Normal speech, normal gait SKIN: Warm, Dry, normal turgor, no rashes or lesions noted. <Dayna Santos - Last Filed: 04/08/17 03:39> - Vital Signs Last Vital Signs Temp Pulse Resp BP Pulse Ox 103 H 28 H 140/74 97 04/08/17 02:36 04/08/17 02:05 04/08/17 02:05 04/08/17 02:36 <Janet Eastman - Last Filed: 04/08/17 19:56> Medical Decision Making - Medical Decision Making 04/08/17 05:57 O2 sat on room air is 95%. He has patchy wheezing pt appears well He will be discharged. <Janet Eastman - Last Filed: 04/08/17 19:56> *DC/Admit/Observation/Transfer <Dayna Santos - Last Filed: 04/08/17 03:39> - Discharge Dispostion Admit: No <Janet Eastman - Last Filed: 04/08/17 19:56> Diagnosis at time of Disposition: Asthma exacerbation - Discharge Dispostion Disposition: HOME Condition at time of disposition: Stable - Referrals Referrals: Eric Yanez MD [Primary Care Provider] - - Patient Instructions Printed Discharge Instructions: Chemical Dependency (Narcotic) (Alternative Therapy), Asthma -- Adult - Post Discharge Activity
[2017-04-08] MEDS ORDERED: ALBUTEROL SO4 2.5/IPRATROPIUM 0.5 INH SOL 3 ML VIAL.NEB. NEB ONE ×3 (03:28→05:56)
[2017-04-08] MEDS ORDERED: NALOXONE HCL 0.4 MG/ML VIAL IM ONE (03:29)
[2017-04-08] MEDS ORDERED: NALOXONE HCL 0.4 MG/ML VIAL ONE (03:50)
[2017-04-08] MEDS ORDERED: DEXAMETHASONE LIQUID 0.5 MG/5 ML 240 ML BULK BOTTLE PO ONE (05:58)
[2017-04-08 05:59] VITALS: PULSE 90
[2017-04-08] MEDS ORDERED: DEXAMETHASONE SOD PHOSPHATE 10 MG/1 ML VIAL ONE (06:03)
== END 2017-04-08 07:01 | disposition home or self-care (01) ==
LOC: JER 02:05
PROC: 3E0F7GC Introduction of Other Therapeutic Substance into Respiratory Tract, Via Natural or Artificial Opening (ICD-10-PCS; principal; 2017-04-08)
PROC: 3E0F7GC Introduction of Other Therapeutic Substance into Respiratory Tract, Via Natural or Artificial Opening (ICD-10-PCS; 2017-04-08)
PROC: 3E033GC Introduction of Other Therapeutic Substance into Peripheral Vein, Percutaneous Approach (ICD-10-PCS; 2017-04-08)
DX: J45.901 Unspecified asthma with (acute) exacerbation (principal); J44.9 Chronic obstructive pulmonary disease, unspecified; F11.10 Opioid abuse, uncomplicated
CPT/HCPCS: 99282-25

== ENCOUNTER 2017-04-10 09:00 | Inpatient (IN) | payer OTHER ==
[2017-04-10 09:08] VITALS: BMI 27.3
[2017-04-10] MEDS ORDERED: ALBUTEROL SO4 2.5/IPRATROPIUM 0.5 INH SOL 3 ML VIAL.NEB. NEB ONE ×4 (09:09→13:50)
[2017-04-10] MEDS ORDERED: MAGNESIUM SULF 50% (8.12 MEQ/2 ML-1 GM VIAL) IVPB ONE (09:17)
[2017-04-10] MEDS ORDERED: methylPREDNISolone NA SUCC 125 MG/2 ML VIAL IVPB ONE ×2 (09:22→09:31)
[2017-04-10] MEDS ORDERED: MAGNESIUM SULF 50% (8.12 MEQ/2 ML-1 GM VIAL) ONE (09:26)
[2017-04-10] MEDS ORDERED: methylPREDNISolone NA SUCC 125 MG/2 ML VIAL ONE (09:26)
--- NOTE | 2017-04-10 09:32 | PDOC ---
History of Present Illness - General Chief Complaint: Asthma Stated Complaint: SHORTNESS OF BREATH Time Seen by Provider: 04/10/17 09:13 History Source: Patient Exam Limitations: Physical Impairment - History of Present Illness Initial Comments: 04/10/17 09:36 46F a significant PMH of asthma and opiate abuse who presents to the emergency department with wheezing and dyspnea that began at approximately 8am this morning after heroin use around 6:30am this morning. PAtient called a taxi to go to the ER after feeling the symptoms. Patient seen in this ER with same presentation, discharged after neb treatment. 04/10/17 09:42 Past History - Past Medical History Allergies/Adverse Reactions: Allergies Allergy/AdvReac Type Severity Reaction Status Date / Time No Known Allergies Allergy Verified 04/10/17 09:04 Home Medications: Ambulatory Orders Albuterol Sulfate [Proventil HFA Inhaler -] 1 - 2 inh PO QID #1 inhaler Montelukast Na [Singulair -] 10 mg PO HS #30 tablet 07/29/16 Budesonide/Formeterol Fumarate [SYMBICORT 160/4.5mcg -] 1 inh PO BID #1 cannister 08/14/16 Anemia: No Asthma: Yes Cancer: No Cardiac Disorders: No CVA: No COPD: Yes CHF: No Dementia: No Diabetes: No GI Disorders: No Disorders: No HTN: No Hypercholesterolemia: No Kidney Stones: No Liver Disease: No Seizures: No Thyroid Disease: No (heroin abuse) - Surgical History Abdominal Surgery: No Appendectomy: No Cardiac Surgery: No Cholecystectomy: No Lung Surgery: No Neurologic Surgery: No Orthopedic Surgery: No - Reproductive History Testicular Surgery: No - Immunization History Td Vaccination: Yes Immunization Up to Date: Yes - Suicide/Smoking/Psychosocial Hx Smoking Status: Yes Smoking History: Never smoked Years of Tobacco Use: 40 Have you smoked in the past 12 months: Yes Number of Cigarettes Smoked Daily: 10 If you are a former smoker, when did you quit?: 2014 Cigars Per Day: 0 Information on smoking cessation initiated: No 'Breaking Loose' booklet given: 04/10/17 Hx Alcohol Use: No Drug/Substance Use Hx: Yes (herion) Substance Use Type: Cocaine, Heroin Hx Substance Use Treatment: Yes (last detox 07/2015 [facility]) Respiratory Specific PMHX - Complaint Specific PMHX TB (Tuberculosis): No Review of Systems - Review of Systems Able to Perform ROS?: Yes Constitutional: No: Symptoms Reported HEENTM: No: Symptoms Reported Respiratory: Yes: Shortness of Breath, Wheezing Cardiac (ROS): No: Symptoms Reported ABD/GI: No: Symptoms Reported : No: Symptoms Reported, Burning, Dysuria, Discharge, Hematuria Musculoskeletal: No: Symptoms Reported Integumentary: No: Symptoms Reported Hematologic/Lymphatic: No: Symptoms Reported All Other Systems: Reviewed and Negative *Physical Exam - Vital Signs Last Vital Signs Temp Pulse Resp BP Pulse Ox 110 H 24 135/100 90 L 04/10/17 09:04 04/10/17 09:04 04/10/17 09:04 04/10/17 09:04 - Physical Exam General Appearance: Yes: Nourished, Moderate Distress HEENT: positive: EOMI, MAGDIEL, Normal ENT Inspection Neck: positive: Other (open sore on back of right neck with excoriations). negative: Tender Respiratory/Chest: positive: Respiratory Distress, Labored Respiration, Rapid RR , Wheezing. negative: Chest Tender Cardiovascular: positive: Regular Rhythm, Tachycardia Gastrointestinal/Abdominal: positive: Normal Bowel Sounds, Soft. negative: Tender ED Treatment Course - LABORATORY CBC & Chemistry Diagram: 04/10/17 09:39 04/10/17 09:39 - Medications Given in the ED: ED Medications Discontinued Medications Generic Name Dose Route Start Last Admin Trade Name Freq PRN Reason Stop Dose Admin Albuterol/Ipratropium 1 amp 04/10/17 09:09 04/10/17 09:04 Duoneb - NEB 04/10/17 09:10 1 amp NOW ONE Administration Medical Decision Making - Medical Decision Making 04/10/17 14:58 46M with h/o heroin abuse and asthma presenting with asthma exacerbation. Patient given duonebs, solumedrol, magnesium, and placed on bipap. 04/10/17 15:[address] Diaz who accepted the patient under med surg. Patient found asleep difficult to arouse, with pinpoint pupils, demanding to leave now if he wont be allowed to go to the restroom alone repeatedly. Patient finally resigned to be admitted, *DC/Admit/Observation/Transfer Diagnosis at time of Disposition: Asthma exacerbation - Discharge Dispostion Disposition: AGAINST MEDICAL ADVICE Admit: Yes - Referrals - Patient Instructions - Post Discharge Activity
--- NOTE | 2017-04-10 09:44 | PDOC ---
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 He states he used heroin this morning at 6:30 , then developed symptoms around 8am. He has had similar symptoms in the past, where opioid use led to an asthma attack. No recent fever, chills. +Dry cough. - Physicial Exam PE: GENERAL: Awake, alert, and fully oriented. +Tachypnea. HEAD: No signs of trauma EYES: PERRLA, EOMI, sclera anicteric, conjunctiva clear ENT: Auricles normal inspection, hearing grossly normal, nares patent, oropharynx clear without exudates. Moist mucosa NECK: Normal ROM, supple, no lymphadenopathy, JVD, or masses LUNGS: Dec air entry B/L. Diffuse exp wheezing with prolonged exp phase. HEART: Regular rate and rhythm, normal S1 and S2, no murmurs, rubs or gallops ABDOMEN: Soft, nontender, normoactive bowel sounds. No guarding, no rebound. No masses EXTREMITIES: Normal range of motion, no edema. No clubbing or cyanosis. No cords, erythema, or tenderness NEUROLOGICAL: Cranial nerves II through XII grossly intact. Normal speech, normal gait SKIN: Warm, Dry, normal turgor, no rashes or lesions noted. - Medical Decision Making Pt with history of severe asthma, typically getting exacerbations following heroin use, presenting with asthma exacerbation. Will treat with nebs, steroids , mag, and BiPAP. Will require admission.
[2017-04-10 09:52] LABS: BASO # 0.2 # (0.1-1); EOS # 0.8 # (0-4.5); EOS % 5.5 % (0-4.5); MCH 25.7 pg (25.7-33.7); MCHC 31.4 g/dl (32.0-35.9); MEAN CELL VOLUME 81.8 fl (80-96); MEAN PLT VOLUME 8.2 fl (7.5-11.1); MONO # 1.1 # (3.8-10.2); NEUT # 9.4 # (42.8-82.8); NEUT % 65.1 % (42.8-82.8); PLATELET COUNT 305 K/MM3 (134-434); RDW 14.7 % (11.9-15.9); WHITE BLOOD COUNT 14.5 K/mm3 (4.0-10.0)
[2017-04-10] MEDS: ALBUTEROL SO4 2.5/IPRATROPIUM 0.5 INH SOL 3 ML VIAL.NEB. NEB SCH ×3 (09:53→10:52)
[2017-04-10] MEDS ORDERED: methylPREDNISolone NA SUCC 125 MG/2 ML VIAL IVPUSH SCH (10:00)
[2017-04-10 10:14] LABS: ALBUMIN 3.6 g/dl (3.4-5.0); ALK PHOS 100 U/L (45-117); ANION GAP 7 (8-16); BILIRUBIN,TOTAL 0.3 mg/dL (0.2-1.0); CALCIUM 8.2 mg/dL (8.5-10.1); CO2 28 mmol/L (21-32); GLUCOSE,RANDOM 94 mg/dL (74-106); MAGNESIUM 2.1 mg/dL (1.8-2.4); PHOSPHOROUS 3.6 mg/dL (2.5-4.9); SGOT/AST 18 U/L (15-37); SGPT/ALT 26 U/L (12-78); TOT PROT 6.8 g/dl (6.4-8.2)
[2017-04-10] MEDS ORDERED: cloNIDine HCL 0.1 MG TABLET PO ONE (11:10)
[2017-04-10] MEDS ORDERED: cloNIDine HCL 0.1 MG TABLET ONE (11:23)
[2017-04-10] MEDS ORDERED: NALOXONE HCL 0.4 MG/ML VIAL ONE (13:44)
[2017-04-11] MEDS ORDERED: ALBUTEROL SO4 2.5/IPRATROPIUM 0.5 INH SOL 3 ML VIAL.NEB. NEB PRN (00:29)
[2017-04-11] MEDS ORDERED: ONDANSETRON 4 MG/2 ML VIAL IVPUSH PRN (00:37)
[2017-04-11] MEDS ORDERED: PIPERACILLIN/TAZOB 3.375 GM 50 ML IVPB SCH (02:00)
[2017-04-11] MEDS: methylPREDNISolone NA SUCC 40 MG/1 ML VIAL IVPUSH SCH ×4 (02:22→17:23)
[2017-04-11] MEDS: PIPERACILLIN/TAZOB 3.375 GM 50 ML IVPB ONE ×2 (02:22→07:25)
[2017-04-11] MEDS: HEPARIN NA (PORCINE) 5,000 UNITS/ML 1ML VIAL SQ SCH ×2 (09:15→22:27)
--- NOTE | 2017-04-11 10:56 | CON.PULM ---
Consult Consult Specialty:: PULMONARY Referred by:: FINA Reason for Consultation:: ASTHMA - History of Present Illness Chief Complaint: COUGH/SOB/WHEEZE History of Present Illness: 46F a significant PMH of asthma and opiate abuse who presents to the emergency department with wheezing and dyspnea that began at approximately 8am this morning after heroin use around 6:30am this morning. Patient called a taxi to go to the ER after feeling the symptoms. 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 No: COPD, O2 Dependent, Previously Intubated Gastrointestinal: No: Ascites, Cancer Hepatobiliary: No: Cirrhosis, Cholelithiasis Renal/: No: Renal Failure Heme/Onc: No: Anemia Psych: Yes: Addictions (heroin) - Past Surgical History Past Surgical History: Yes: None - Alcohol/Substance Use Hx Alcohol Use: No History of Substance Use: reports: Heroin - Smoking History Smoking history: Current some day smoker Have you smoked in the past 12 months: Yes Aproximately how many cigarettes per day: 2 If you are a former smoker, when did you quit?: 2014 - Social History ADL: Independent Occupation: Unemployed Place of : [facility] History of Recent Travel: No Home Medications - Allergies Allergies/Adverse Reactions: Allergies Allergy/AdvReac Type Severity Reaction Status Date / Time No Known Allergies Allergy Verified 04/10/17 09:04 - Home Medications Home Medications: Ambulatory Orders Albuterol Sulfate [Proventil HFA Inhaler -] 1 - 2 inh PO QID #1 inhaler Montelukast Na [Singulair -] 10 mg PO HS #30 tablet 07/29/16 Budesonide/Formeterol Fumarate [SYMBICORT 160/4.5mcg -] 1 inh PO BID #1 cannister 08/14/16 Family Disease History - Family Disease History Family Disease History: Diabetes: Mother, CA: Father (.) Review of Systems - Review of Systems Constitutional: denies: Fever Eyes: denies: Blurred Vision HENT: denies: Difficult Swallowing Neck: denies: Decreased ROM Cardiovascular: reports: Shortness of Breath. denies: Chest Pain Respiratory: reports: Cough, Exercise Intolerance, SOB, SOB on Exertion, Wheezing. denies: Hemoptysis, Orthopnea Gastrointestinal: denies: Abdominal Pain Genitourinary: denies: Burning Physical Exam Vital Sings: Vital Signs Temperature 97.8 F 04/11/17 05:46 Pulse Rate 80 04/11/17 05:46 Respiratory Rate 20 04/11/17 05:46 Blood Pressure 129/94 04/11/17 05:46 O2 Sat by Pulse Oximetry (%) 98 04/10/17 20:02 Constitutional: Yes: Calm Eyes: Yes: EOM Intact HENT: Yes: Normocephalic Neck: Yes: Trachea Midline Cardiovascular: Yes: Regular Rate and Rhythm Respiratory: Yes: Wheezes (bilateral diffuse) Gastrointestinal: Yes: Normal Bowel Sounds Renal/: Yes: WNL Breast(s): Yes: WNL Musculoskeletal: Yes: WNL Edema: No Labs: CBC, BMP 04/10/17 09:39 04/10/17 09:39 rest of labs reviewed Imaging - Results Chest X-ray: Report Reviewed, Image Reviewed Problem List - Problems (1) Asthma exacerbation Code(s): J45.901 - UNSPECIFIED ASTHMA WITH (ACUTE) EXACERBATION (2) Cocaine dependence, uncomplicated Code(s): F14.20 - COCAINE DEPENDENCE, UNCOMPLICATED (3) Drug-induced mood disorder Code(s): F19.94 - OTH PSYCHOACTIVE SUBSTANCE USE, UNSP W MOOD DISORDER (4) Nicotine dependence Code(s): F17.200 - NICOTINE DEPENDENCE, UNSPECIFIED, UNCOMPLICATED Qualifiers: Nicotine product type: cigarettes Substance use status: in withdrawal Qualified Code(s): F17.213 - Nicotine dependence, cigarettes, with withdrawal Assessment/Plan LIKELY ACUTE BRONCHITIS CAUSING EXACERBATION OF BRONCHIAL ASTHMA DRUG ABUSE/NICOTINE DEPENDANCE O2/BRONCHODILATORS/STEROIDS/ANTIBIOTICS DAILY PEAK FLOW INFLU SWAB WILL FOLLOW Gal ZHU MD
[2017-04-11] MEDS ORDERED: METHADONE HCL 10 MG TABLET PO ONE ×2 (12:04→23:00)
[2017-04-11] MEDS ORDERED: ONDANSETRON *ODT* 4 MG TABLET SL PRN (12:08)
--- NOTE | 2017-04-11 12:17 | PN ---
[facility] Progress Note Note: Patient well known to me from multiple admissions for heroin detox at [facility] , seen by medical student, case discussed and reviewed, now admitted with acute exacerbation of asthma after using heroin yesterday am. Will start methadone detox while admitted, can transfer to [facility] to complete detox or for rehab after detox if he is in agreement for aftercare. Symptomatic relief of withdrawal ordered. will follow. Corky Limon MD [phone]
[2017-04-11] MEDS: BUDESONIDE/FORMETEROL FUMARATE 160/4.5 mcg INHALER IH SCH ×2 (13:09→23:40)
[2017-04-11] MEDS: CYCLOBENZAPRINE HCL 10 MG TABLET (FP) PO SCH ×2 (13:10→22:26)
[2017-04-11] MEDS: ALBUTEROL SO4 2.5/IPRATROPIUM 0.5 INH SOL 3 ML VIAL.NEB. NEB SCH ×2 (13:20→18:05)
--- NOTE | 2017-04-11 13:21 | EKG ---
Test Reason : Blood Pressure : / mmHG Vent. Rate : 083 BPM Atrial Rate : 083 BPM P-R Int : 158 ms QRS Dur : 084 ms QT Int : 368 ms P-R-T Axes : 043 040 042 degrees QTc Int : 432 ms NORMAL SINUS RHYTHM NORMAL ECG WHEN COMPARED WITH ECG OF 26-MAR-2017 04:34, NO SIGNIFICANT CHANGE WAS FOUND Confirmed by THERESA MCINTOSH MD ([id number]) on 04/11/2017 1:21:12 PM Referred By: Confirmed By:THERESA MCINTOSH MD
--- NOTE | 2017-04-11 14:32 | HP ---
Admitting History and Physical - Admission History of Present Illness: Pt is a 46 y/o male w/ PMH significant for asthma and substance abuse(heroin). Pt has had mutliple admissions for asthma exacerbations(usually associated w/ heroin use). Pt presented to the ER this am after heroin use w/ acute SOB and wheezing. Pt also complained of a cough wc is dry and nonproductive. Pt has had multiple admissions for similiar episodes in the past. - Past Medical History Pulmonary: Yes: Asthma Psych: Yes: Addictions (heroin) - Past Surgical History Past Surgical History: Yes: None - Smoking History Smoking history: Current some day smoker Have you smoked in the past 12 months: Yes Aproximately how many cigarettes per day: 2 If you are a former smoker, when did you quit?: 2014 - Alcohol/Substance Use Hx Alcohol Use: No History of Substance Use: reports: Heroin - Social History ADL: Independent Occupation: Unemployed History of Recent Travel: No Home Medications - Allergies Allergies/Adverse Reactions: Allergies Allergy/AdvReac Type Severity Reaction Status Date / Time No Known Allergies Allergy Verified 04/10/17 09:04 - Home Medications Home Medications: Ambulatory Orders Albuterol Sulfate [Proventil HFA Inhaler -] 1 - 2 inh PO QID #1 inhaler Montelukast Na [Singulair -] 10 mg PO HS #30 tablet 07/29/16 Budesonide/Formeterol Fumarate [SYMBICORT 160/4.5mcg -] 1 inh PO BID #1 cannister 08/14/16 Family Disease History - Family Disease History Family History: Unremarkable Family Disease History: Diabetes: Mother, CA: Father (.) Review of Systems - Review of Systems Constitutional: reports: No Symptoms HENT: reports: No Symptoms Neck: reports: No Symptoms Cardiovascular: reports: No Symptoms Respiratory: reports: Cough, SOB, Wheezing Gastrointestinal: reports: No Symptoms Genitourinary: reports: No Symptoms Physical Examination Vital Signs: Vital Signs Temperature 97.6 F 04/11/17 09:00 Pulse Rate 73 04/11/17 09:00 Respiratory Rate 20 04/11/17 09:00 Blood Pressure 136/89 04/11/17 09:00 O2 Sat by Pulse Oximetry (%) 99 04/11/17 09:00 Constitutional: Yes: Well Nourished HENT: Yes: WNL Neck: Yes: WNL, Supple Cardiovascular: Yes: WNL, Regular Rate and Rhythm Respiratory: Yes: Wheezes Gastrointestinal: Yes: WNL, Normal Bowel Sounds, Soft Musculoskeletal: Yes: WNL Extremities: Yes: WNL Edema: No Neurological: Yes: WNL, Alert, Oriented ...Motor Strength: WNL Labs: CBC, BMP 04/10/17 09:39 04/10/17 09:39 Problem List - Problems (1) Asthma exacerbation Assessment/Plan: Pt w/ leukocytosis Cont IV zosyn for asp pneumonia Cont IV steroids/nebulizers Pulmonary/ID consults Code(s): J45.901 - UNSPECIFIED ASTHMA WITH (ACUTE) EXACERBATION (2) Substance abuse Assessment/Plan: H/O heroin abuse Cont methadone Code(s): F19.10 - OTHER PSYCHOACTIVE SUBSTANCE ABUSE, UNCOMPLICATED
[2017-04-11] MEDS: THIAMINE HCL 100 MG TABLET (FP) PO SCH (22:26)
[2017-04-11] MEDS: MONTELUKAST NA 10 MG TABLET PO SCH (22:26)
[2017-04-11] MEDS: cloNIDine HCL 0.1 MG TABLET PO SCH (22:27)
[2017-04-12] MEDS ORDERED: PIPERACILLIN/TAZOB 3.375 GM 50 ML IVPB SCH (02:00)
[2017-04-12] MEDS ORDERED: PIPERACILLIN/TAZOB 3.375 GM 3.375 GM in DEXTROSE 5%-WATER - 100 ML IVPB ONE (02:15)
[2017-04-12] MEDS: methylPREDNISolone NA SUCC 40 MG/1 ML VIAL IVPUSH SCH ×3 (02:41→17:15)
[2017-04-12] MEDS: CYCLOBENZAPRINE HCL 10 MG TABLET (FP) PO SCH ×3 (06:13→21:50)
[2017-04-12] MEDS: ALBUTEROL SO4 2.5/IPRATROPIUM 0.5 INH SOL 3 ML VIAL.NEB. NEB SCH ×5 (06:20→23:38)
--- NOTE | 2017-04-12 08:25 | CONSULT ---
Consult Detox [facility] Reason for Current Admission/Consult: opioid use disorder, evaluate for need of inpatient detoxification while hospitalized Referred by:: Flavia Diaz MD - History History of Present Illness: 46 y o m w h/o opioid use disorder and cocaine dependence well known to me from [facility] inpatient admiss[facility] to [facility] admitted with acute exacerbation of asthma after sniffing cocaine adn heroin 04/10. alice was started on methadoen detox yesterday with symptomatic relief of withdrawal which he is tolerting well. still wheezing, requesting sleep meds no major body aches or pains reported. 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 still wheezing, on antibioitics and symptomatic relief of withdrawal COWS - Scale Resting Pulse: 1= NM 81-100 Sweatin= Chills/Flushing Restless Observation: 1= Difficult to Sit Still Pupil Size: 1= Pupils >than Normal Bone or Joint Aches: 1= Mild Discomfort Runny Nose/ Eye Tearin= Nasal Congestion GI Upset > 30mins: 2= Nausea/Diarrhea Tremor Observation: 2= Slight Tremor Visible Yawning Observation: 2= >3x During Session Anxiety or Irritability: 2=Irritable/Anxious Goose Flesh Skin: 3=Piloerection COWS Score: 17 Assessment Plan - Diagnosis (1) Asthma exacerbation Status: Chronic (2) Cocaine dependence, uncomplicated Status: Acute (3) Drug-induced mood disorder Status: Acute (4) Nicotine dependence Status: Acute Qualifiers: Nicotine product type: cigarettes Substance use status: in withdrawal Qualified Code(s): F17.213 - Nicotine dependence, cigarettes, with withdrawal (5) Opioid dependence with withdrawal Status: Chronic - Plan Plan: chart revewied, labs reviwed, imaging reviewed, patietn examined , history taken , case discussed with medical staff. 46 yo m with acute asthma exacerbation, copd?/bronchitis on antibioitics in opioid withdrawal on methadone detox while hsoptialize. patietn needs prn valium to be administered by nurses to relieve symptoms. continue symptomatic relief owtidrawal with current medications, ambkevin adde. thank you for this consult will follow. when patien is stable may be [facility] and requested by patient. Corky Limon MD [phone] - Medication Detox Regimen/Protocol: Methadone
[2017-04-12] MEDS ORDERED: METHADONE HCL 10 MG TABLET PO ONE (10:00)
[2017-04-12] MEDS ORDERED: PT OWN MED DRAWER 7, Y5N ONE (11:33)
[2017-04-12] MEDS: cloNIDine HCL 0.1 MG TABLET PO SCH ×2 (11:40→21:51)
[2017-04-12] MEDS: PRENATAL VITAMINS W/ FOLIC ACID TABLET (FP) PO SCH (11:40)
[2017-04-12] MEDS: HEPARIN NA (PORCINE) 5,000 UNITS/ML 1ML VIAL SQ SCH ×2 (11:40→21:50)
[2017-04-12] MEDS: BUDESONIDE/FORMETEROL FUMARATE 160/4.5 mcg INHALER IH SCH ×2 (11:41→21:51)
[2017-04-12] MEDS: diazePAM 5 MG TABLET PO PRN ×2 (11:47→16:03)
--- NOTE | 2017-04-12 15:05 | PN ---
Progress Note (short form) - Note Progress Note: PULMONARY AWAKE/ALERT COUGH/WHEEZE PERSISTS VSS/AFEBRILE ANICTERIC B/L WHEEZE S1S2 BS+ NO EDEMA LABS/MEDS/NOTES/IMAGES NOTED (1) Asthma exacerbation Code(s): J45.901 - UNSPECIFIED ASTHMA WITH (ACUTE) EXACERBATION (2) Cocaine dependence, uncomplicated Code(s): F14.20 - COCAINE DEPENDENCE, UNCOMPLICATED (3) Drug-induced mood disorder Code(s): F19.94 - OTH PSYCHOACTIVE SUBSTANCE USE, UNSP W MOOD DISORDER (4) Nicotine dependence Code(s): F17.200 - NICOTINE DEPENDENCE, UNSPECIFIED, UNCOMPLICATED Qualifiers: Nicotine product type: cigarettes Substance use status: in withdrawal Qualified Code(s): F17.213 - Nicotine dependence, cigarettes, with withdrawal LIKELY ACUTE BRONCHITIS CAUSING EXACERBATION OF BRONCHIAL ASTHMA DRUG ABUSE/NICOTINE DEPENDANCE O2/BRONCHODILATORS/STEROIDS/ANTIBIOTICS DAILY PEAK FLOW INFLU SWAB IS NEGATIVE Gal ZHU MD Problem List - Problems (1) Asthma exacerbation Code(s): J45.901 - UNSPECIFIED ASTHMA WITH (ACUTE) EXACERBATION (2) Cocaine dependence, uncomplicated Code(s): F14.20 - COCAINE DEPENDENCE, UNCOMPLICATED (3) Drug-induced mood disorder Code(s): F19.94 - OTH PSYCHOACTIVE SUBSTANCE USE, UNSP W MOOD DISORDER (4) Nicotine dependence Code(s): F17.200 - NICOTINE DEPENDENCE, UNSPECIFIED, UNCOMPLICATED Qualifiers: Nicotine product type: cigarettes Substance use status: in withdrawal Qualified Code(s): F17.213 - Nicotine dependence, cigarettes, with withdrawal
[2017-04-12] MEDS ORDERED: PIPERACILLIN/TAZOB 3.375 GM 3.375 GM in DEXTROSE 5%-WATER - 100 ML IVPB SCH (18:00)
--- NOTE | 2017-04-12 18:16 | CON.ID ---
Consult Consult Specialty:: infectious diseases Referred by:: Reason for Consultation:: sob,leukocytosis - History of Present Illness Chief Complaint: sob History of Present Illness: 46 y/o male w/ PMH significant for asthma and substance abuse patient sniffs heroin last time he did it was on sunday Pt has had mutliple admissions for asthma exacerbations(usually associated w/ heroin use). Pt presented to the ER this am after heroin use w/ acute SOB and wheezing. Pt also complained of a cough wc is dry and nonproductive. Pt has had multiple admissions for similiar episodes in the past. 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 Cardio/Vascular: No: AFIB Pulmonary: Yes: Asthma Gastrointestinal: No: Ascites, Cancer Hepatobiliary: No: Cirrhosis, Cholelithiasis Renal/: No: Renal Failure Psych: Yes: Addictions (heroin) - Past Surgical History Past Surgical History: Yes: None - Alcohol/Substance Use Hx Alcohol Use: No History of Substance Use: reports: Heroin - Smoking History Smoking history: Current some day smoker Have you smoked in the past 12 months: Yes Aproximately how many cigarettes per day: 2 If you are a former smoker, when did you quit?: 2014 - Social History ADL: Independent Occupation: Unemployed History of Recent Travel: No Home Medications - Allergies Allergies/Adverse Reactions: Allergies Allergy/AdvReac Type Severity Reaction Status Date / Time No Known Allergies Allergy Verified 04/10/17 09:04 - Home Medications Home Medications: Ambulatory Orders Albuterol Sulfate [Proventil HFA Inhaler -] 1 - 2 inh PO QID #1 inhaler Montelukast Na [Singulair -] 10 mg PO HS #30 tablet 07/29/16 Budesonide/Formeterol Fumarate [SYMBICORT 160/4.5mcg -] 1 inh PO BID #1 cannister 08/14/16 Family Disease History - Family Disease History Family Disease History: Diabetes: Mother, CA: Father (.) Review of Systems - Review of Systems Constitutional: reports: No Symptoms Eyes: reports: No Symptoms HENT: reports: No Symptoms Neck: reports: No Symptoms Cardiovascular: reports: No Symptoms Respiratory: reports: Cough, SOB, SOB on Exertion, Wheezing Gastrointestinal: reports: No Symptoms Genitourinary: reports: No Symptoms Musculoskeletal: reports: No Symptoms Integumentary: reports: No Symptoms Neurological: reports: No Symptoms Endocrine: reports: No Symptoms Hematology/Lymphatic: reports: No Symptoms Psychiatric: reports: No Symptoms Physical Exam Vital Signs: Vital Signs Temperature 97.2 F L 04/12/17 15:07 Pulse Rate 72 04/12/17 15:07 Respiratory Rate 20 04/12/17 15:07 Blood Pressure 115/66 04/12/17 15:07 O2 Sat by Pulse Oximetry (%) 99 04/12/17 11:11 Constitutional: Yes: Well Nourished, Calm, Mild Distress Eyes: Yes: Conjunctiva Clear Neck: Yes: Supple, Trachea Midline Cardiovascular: Yes: Regular Rate and Rhythm Respiratory: Yes: Poor Air Entry, Wheezes Gastrointestinal: Yes: Normal Bowel Sounds, Soft Musculoskeletal: Yes: WNL Extremities: Yes: WNL Neurological: Yes: Alert, Oriented Psychiatric: Yes: Alert, Oriented Labs: CBC, BMP 04/10/17 09:39 04/10/17 09:39 Imaging - Results Chest X-ray: Report Reviewed, Image Reviewed Assessment/Plan Problem List - Problems (1) Asthma exacerbation Code(s): J45.901 - UNSPECIFIED ASTHMA WITH (ACUTE) EXACERBATION (2) Cocaine dependence, uncomplicated Code(s): F14.20 - COCAINE DEPENDENCE, UNCOMPLICATED (3) Drug-induced mood disorder Code(s): F19.94 - OTH PSYCHOACTIVE SUBSTANCE USE, UNSP W MOOD DISORDER (4) Nicotine dependence Code(s): F17.200 - NICOTINE DEPENDENCE, UNSPECIFIED, UNCOMPLICATED Qualifiers: Nicotine product type: cigarettes Substance use status: in withdrawal Qualified Code(s): F17.213 - Nicotine dependence, cigarettes, with withdrawal leukocytosis patient has got couple of doses of abx after looking at the patient at this moment i am not concerned for pneumonia, looks like patient had asthma exac plan will see what wbc shows tomorrow if still high then might initiate abx currently will not start on any abx rest as per primary team
[2017-04-12] MEDS: MONTELUKAST NA 10 MG TABLET PO SCH (21:50)
[2017-04-12] MEDS: THIAMINE HCL 100 MG TABLET (FP) PO SCH (21:51)
[2017-04-12] MEDS ORDERED: ZOLPIDEM TARTRATE 5 MG TABLET PO PRN (22:00)
--- NOTE | 2017-04-12 22:12 | PN ---
Progress Note, Physician History of Present Illness: Pt feeling slightly better - Current Medication List Current Medications: Active Medications Albuterol/Ipratropium (Duoneb -) 1 amp NEB QIDR [facility] Last Admin: 04/12/17 18:59 Dose: 1 amp Budesonide/Formoterol Fumarate (Symbicort 160/4.5mcg -) 1 puff IH BID [facility] Last Admin: 04/12/17 21:51 Dose: 1 puff Clonidine (Catapres -) 0.1 mg PO BID [facility] Last Admin: 04/12/17 21:51 Dose: 0.1 mg Cyclobenzaprine HCl (Flexeril -) 5 mg PO TID [facility] Last Admin: 04/12/17 21:50 Dose: 5 mg Diazepam (Valium -) 10 mg PO Q4H PRN PRN Reason: WITHDRAWAL(CONT SUBST) Stop: 04/14/17 12:03 Last Admin: 04/12/17 16:03 Dose: 10 mg Heparin Sodium (Porcine) (Heparin -) 5,000 unit SQ BID [facility] Last Admin: 04/12/17 21:50 Dose: 5,000 unit Piperacillin/Tazobactam/Dextrose (Zosyn 3.375gm Ivpb (Premix)) 50 mls @ 100 mls /hr IVPB Q8H-IV VARSHA PRN Reason: Protocol Methadone HCl (Dolophine -) 15 mg PO ONCE ONE Stop: 04/13/17 23:59 Methadone HCl (Dolophine -) 5 mg PO ONCE@0600 ONE Stop: 04/16/17 23:59 Methadone HCl (Dolophine -) 15 mg PO ONCE ONE Stop: 04/14/17 23:59 Methadone HCl (Dolophine -) 10 mg PO ONCE ONE Stop: 04/15/17 10:01 Methylprednisolone Sodium Succinate (Solu-Medrol -) 40 mg IVPUSH Q8H-IV [facility] Last Admin: 04/12/17 17:15 Dose: 40 mg Montelukast Sodium (Singulair -) 10 mg PO HS [facility] Last Admin: 04/12/17 21:50 Dose: 10 mg Ondansetron HCl (Zofran Odt -) 8 mg SL Q6H PRN PRN Reason: NAUSEA AND/OR VOMITING Multivit/Folic Acid/Iron ( Vitamins (Sjr) -) 1 tab PO DAILY [facility] Last Admin: 04/12/17 11:40 Dose: 1 tab Thiamine HCl (Vitamin B1 -) 100 mg PO HS VARSHA Last Admin: 04/12/17 21:51 Dose: 100 mg Zolpidem Tartrate (Ambien -) 10 mg PO HS PRN PRN Reason: INSOMNIA Last Admin: 04/12/17 21:55 Dose: 10 mg - Objective Vital Signs: Vital Signs Temperature 97.3 F L 04/12/17 18:52 Pulse Rate 71 04/12/17 18:52 Respiratory Rate 18 04/12/17 18:52 Blood Pressure 100/64 04/12/17 18:52 O2 Sat by Pulse Oximetry (%) 98 04/12/17 19:34 Constitutional: Yes: Well Nourished HENT: Yes: WNL Neck: Yes: WNL, Supple Cardiovascular: Yes: WNL, Regular Rate and Rhythm Respiratory: Yes: Other (Coarse BS B/L w/ minimal exp wheezing) Gastrointestinal: Yes: WNL, Normal Bowel Sounds, Soft, Abdomen, Obese Edema: No Labs: CBC, BMP 04/10/17 09:39 04/10/17 09:39 Problem List - Problems (1) Asthma exacerbation Assessment/Plan: IV atnibxs stopped and will repeat wbc in am and determine any further need Cont IV steroids/nebulizers Pulmonary/ID consults noted Code(s): J45.901 - UNSPECIFIED ASTHMA WITH (ACUTE) EXACERBATION (2) Substance abuse Assessment/Plan: H/O heroin abuse Cont methadone Code(s): F19.10 - OTHER PSYCHOACTIVE SUBSTANCE ABUSE, UNCOMPLICATED
[2017-04-12 22:16] LABS: URINE MARIJUANA THC NEGATIVE ng/ml (CUTOFF=50)
[2017-04-13] MEDS: methylPREDNISolone NA SUCC 40 MG/1 ML VIAL IVPUSH SCH ×2 (01:34→11:13)
[2017-04-13] MEDS: ALBUTEROL SO4 2.5/IPRATROPIUM 0.5 INH SOL 3 ML VIAL.NEB. NEB SCH ×2 (05:09→11:58)
[2017-04-13] MEDS: CYCLOBENZAPRINE HCL 10 MG TABLET (FP) PO SCH ×2 (05:44→14:00)
[2017-04-13] MEDS ORDERED: METHADONE HCL 5 MG TABLET PO ONE (10:00)
[2017-04-13] MEDS: BUDESONIDE/FORMETEROL FUMARATE 160/4.5 mcg INHALER IH SCH (11:12)
[2017-04-13] MEDS: cloNIDine HCL 0.1 MG TABLET PO SCH (11:12)
[2017-04-13] MEDS: PRENATAL VITAMINS W/ FOLIC ACID TABLET (FP) PO SCH (11:13)
[2017-04-13] MEDS: HEPARIN NA (PORCINE) 5,000 UNITS/ML 1ML VIAL SQ SCH (11:13)
--- NOTE | 2017-04-13 12:53 | PN ---
Progress Note (short form) - Note Progress Note: PULMONARY AWAKE/ALERT LESS COUGH/WHEEZE VSS/AFEBRILE ANICTERIC MINIMAL SCATTERED EXP WHEEZE S1S2 BS+ NO EDEMA LABS/MEDS/NOTES/IMAGES NOTED (1) Asthma exacerbation Code(s): J45.901 - UNSPECIFIED ASTHMA WITH (ACUTE) EXACERBATION (2) Cocaine dependence, uncomplicated Code(s): F14.20 - COCAINE DEPENDENCE, UNCOMPLICATED (3) Drug-induced mood disorder Code(s): F19.94 - OTH PSYCHOACTIVE SUBSTANCE USE, UNSP W MOOD DISORDER (4) Nicotine dependence Code(s): F17.200 - NICOTINE DEPENDENCE, UNSPECIFIED, UNCOMPLICATED Qualifiers: Nicotine product type: cigarettes Substance use status: in withdrawal Qualified Code(s): F17.213 - Nicotine dependence, cigarettes, with withdrawal LIKELY ACUTE BRONCHITIS CAUSING EXACERBATION OF BRONCHIAL ASTHMA DRUG ABUSE/NICOTINE DEPENDANCE O2/BRONCHODILATORS/STEROIDS/ANTIBIOTICS DAILY PEAK FLOW INFLU SWAB IS NEGATIVE WBC ELEVATION LIKLEY DUE TO STEROIDS CAN CHANGE TO PREDNISONE TOMORROW AND TAPER AN OUTPATIENT WOULD START DISCHARGE PLANNING IN ANTICIPATION FOR TOMORROW Gal ZHU MD Problem List - Problems (1) Asthma exacerbation Code(s): J45.901 - UNSPECIFIED ASTHMA WITH (ACUTE) EXACERBATION (2) Cocaine dependence, uncomplicated Code(s): F14.20 - COCAINE DEPENDENCE, UNCOMPLICATED (3) Drug-induced mood disorder Code(s): F19.94 - OTH PSYCHOACTIVE SUBSTANCE USE, UNSP W MOOD DISORDER (4) Nicotine dependence Code(s): F17.200 - NICOTINE DEPENDENCE, UNSPECIFIED, UNCOMPLICATED Qualifiers: Nicotine product type: cigarettes Substance use status: in withdrawal Qualified Code(s): F17.213 - Nicotine dependence, cigarettes, with withdrawal
[2017-04-13 14:40] VITALS: BP 114/67; PULSE 68; TEMP 97.7
[2017-04-14] MEDS ORDERED: METHADONE HCL 5 MG TABLET PO ONE (10:00)
[2017-04-15] MEDS ORDERED: METHADONE HCL 10 MG TABLET PO ONE (10:00)
[2017-04-16] MEDS ORDERED: METHADONE HCL 5 MG TABLET PO ONE (06:00)
== END 2017-04-13 17:30 | disposition left against medical advice (07) | DRG 141 ==
LOC: JER 09:00 → JERBED 13:05 → J7W 19:41
PROVIDERS: ADMIT Internal Medicine; ATTEND Internal Medicine
PROC: HZ2ZZZZ Detoxification Services for Substance Abuse Treatment (ICD-10-PCS; principal; 2017-04-11)
DX: J45.901 Unspecified asthma with (acute) exacerbation (principal); F11.23 Opioid dependence with withdrawal; F17.200 Nicotine dependence, unspecified, uncomplicated; F19.94 Other psychoactive substance use, unspecified with psychoactive substance-induced mood disorder; F14.20 Cocaine dependence, uncomplicated; D72.828 Other elevated white blood cell count; J20.9 Acute bronchitis, unspecified; R06.82 Tachypnea, not elsewhere classified
CPT/HCPCS: 36415; 71010-TC; 80053; 80307; 83735; 84100; 85025; 87804; 93005; 93010; 94640; 94660; 99282-25; J1644

== ENCOUNTER 2017-05-07 02:40 | Emergency (ER) | payer OTHER ==
[2017-05-07] MEDS ORDERED: ALBUTEROL SO4 2.5/IPRATROPIUM 0.5 INH SOL 3 ML VIAL.NEB. NEB ONE ×3 (02:53→08:51)
--- NOTE | 2017-05-07 03:14 | PDOC ---
History of Present Illness <Janet Eastman - Last Filed: 05/07/17 04:53> - General History Source: Patient Exam Limitations: No Limitations - History of Present Illness Initial Comments: 05/07/17 04:49 The patient is a 46 year old male (smoker), with a significant past medical history of asthma, hypertension, and substance abuse (heroin), who presents to the emergency department with, asthma exacerbation beginning prior to arrival. The patient reports he used a nebulizer with albuterol at home for the asthma exacerbation with minimal relief. The patient reports that his asthma symptoms are made worse with cold weather. The patient reports one prior hospitalization for asthma exacerbation approx. one month ago. He denies any recent fevers, chills, headache or dizziness. He denies any recent nausea, vomit, diarrhea or constipation. He denies any recent chest pain or palpitations. He denies any recent dysuria, frequency, urgency or hematuria. Allergies: NKA Past surgical history: None reported. <Brandon Gomez - Last Filed: 05/07/17 06:03> - General Chief Complaint: Asthma Stated Complaint: ASTHMA ATTACK Time Seen by Provider: 05/07/17 03:00 Past History - Past Medical History Anemia: No Asthma: Yes Cancer: No Cardiac Disorders: No CVA: No COPD: Yes CHF: No Dementia: No Diabetes: No GI Disorders: No Disorders: No HTN: No Hypercholesterolemia: No Kidney Stones: No Liver Disease: No Seizures: No Thyroid Disease: No (heroin abuse) - Surgical History Abdominal Surgery: No Appendectomy: No Cardiac Surgery: No Cholecystectomy: No Lung Surgery: No Neurologic Surgery: No Orthopedic Surgery: No - Reproductive History Testicular Surgery: No - Immunization History Td Vaccination: Yes Immunization Up to Date: Yes - Suicide/Smoking/Psychosocial Hx Smoking Status: Yes Smoking History: Current some day smoker Years of Tobacco Use: 40 Have you smoked in the past 12 months: Yes Number of Cigarettes Smoked Daily: 2 If you are a former smoker, when did you quit?: 2015 Cigars Per Day: 0 'Breaking Loose' booklet given: 04/10/17 Hx Alcohol Use: No Drug/Substance Use Hx: Yes (heroin and cocaine in past) Substance Use Type: Cocaine, Heroin Hx Substance Use Treatment: Yes ([facility] detox and IOP) <Janet Eastman - Last Filed: 05/07/17 04:53> <Brandon Gomez - Last Filed: 05/07/17 06:03> - Past Medical History Allergies/Adverse Reactions: Allergies Allergy/AdvReac Type Severity Reaction Status Date / Time No Known Allergies Allergy Verified 05/07/17 04:19 Home Medications: Ambulatory Orders Albuterol Sulfate [Proventil HFA Inhaler -] 1 - 2 inh PO QID #1 inhaler Montelukast Na [Singulair -] 10 mg PO HS #30 tablet 07/29/16 Budesonide/Formeterol Fumarate [SYMBICORT 160/4.5mcg -] 1 inh PO BID #1 cannister 08/14/16 Prednisone [Deltasone -] 2 tab PO DAILY #10 tablet 05/07/17 Review of Systems - Review of Systems Comments:: 05/07/17 04:50 GENERAL/CONSTITUTIONAL: No fever or chills. No weakness. HEAD, EYES, EARS, NOSE AND THROAT: No change in vision. No ear pain or discharge. No sore throat. CARDIOVASCULAR: +Shortness of breath. No chest pain. RESPIRATORY: No cough, wheezing, or hemoptysis. GASTROINTESTINAL: No nausea, vomiting, diarrhea or constipation. GENITOURINARY: No dysuria, frequency, or change in urination. MUSCULOSKELETAL: No joint or muscle swelling or pain. No neck or back pain. SKIN: No rash NEUROLOGIC: No headache, vertigo, loss of consciousness, or change in strength/ sensation. ENDOCRINE: No increased thirst. No abnormal weight change. HEMATOLOGIC/LYMPHATIC: No anemia, easy bleeding, or history of blood clots. ALLERGIC/IMMUNOLOGIC: No hives or skin allergy. <Brandon Gomez - Last Filed: 05/07/17 06:03> *Physical Exam - Vital Signs Last Vital Signs Temp Pulse Resp BP Pulse Ox 97.7 F 77 18 146/80 96 05/07/17 03:00 05/07/17 03:00 05/07/17 03:00 05/07/17 03:00 05/07/17 03:00 - Physical Exam Comments: 05/07/17 06:03 GENERAL: Awake, alert, and fully oriented. HEAD: No signs of trauma EYES: PERRLA, EOMI, sclera anicteric, conjunctiva clear ENT: Auricles normal inspection, hearing grossly normal, nares patent, oropharynx clear without exudates. Moist mucosa NECK: Normal ROM, supple, no lymphadenopathy, JVD, or masses LUNGS: +Wheezing. No crackles HEART: Regular rate and rhythm, normal S1 and S2, no murmurs, rubs or gallops ABDOMEN: Soft, nontender, normoactive bowel sounds. No guarding, no rebound. No masses EXTREMITIES: Normal range of motion, no edema. No clubbing or cyanosis. No cords, erythema, or tenderness NEUROLOGICAL: Cranial nerves II through XII grossly intact. Normal speech, normal gait SKIN: Warm, Dry, normal turgor, no rashes or lesions noted. <Brandon Gomez - Last Filed: 05/07/17 06:03> ED Treatment Course - Medications Given in the ED: ED Medications Discontinued Medications Generic Name Dose Route Start Last Admin Trade Name Freq PRN Reason Stop Dose Admin Dexamethasone 10 mg 05/07/17 04:47 05/07/17 04:48 Decadron Liquid - PO 05/07/17 04:48 10 mg ONCE ONE Administration <Brandon Gomez - Last Filed: 05/07/17 06:03> Medical Decision Making - Medical Decision Making 05/07/17 04:53 Pt comes with asthma exacerbation. States that it is the cold weather. He used inhalers today - no relief. Pt last used prednisone months or years ago. We will give him some today. He has no fever and no chills. Exam is otherwise normal. Pt is a smoker and he uses heroin and cocaine. Pt will be treated with nebs and decadron and we will reeval him. <Janet Eastman - Last Filed: 05/07/17 04:53> *DC/Admit/Observation/Transfer <Janet Eastman - Last Filed: 05/07/17 04:53> - Attestations Scribe Attestion: 05/07/17 04:51 Documentation prepared by Brandon Gomez, acting as center medical and lab director for Janet Eastman MD. <Brandon Gomez - Last Filed: 05/07/17 06:03> - Prescriptions Prescriptions: Prednisone [Deltasone -] 2 tab PO DAILY #10 tablet - Referrals Referrals: STAFF,NOT ON [Primary Care Provider] - - Patient Instructions - Post Discharge Activity
[2017-05-07 04:19] VITALS: BP 146/80; BMI 28.1
[2017-05-07] MEDS ORDERED: DEXAMETHASONE SOD PHOSPHATE 10 MG/1 ML VIAL ONE (04:44)
[2017-05-07] MEDS ORDERED: DEXAMETHASONE LIQUID 0.5 MG/5 ML 240 ML BULK BOTTLE PO ONE (04:47)
[2017-05-07] MEDS: ALBUTEROL SO4 2.5/IPRATROPIUM 0.5 INH SOL 3 ML VIAL.NEB. NEB SCH ×4 (08:15→09:05)
--- NOTE | 2017-05-07 09:03 | PDOC ---
*Physical Exam - Vital Signs Last Vital Signs Temp Pulse Resp BP Pulse Ox 97.7 F 77 18 146/80 96 05/07/17 03:00 05/07/17 03:00 05/07/17 03:00 05/07/17 03:00 05/07/17 03:00 - Physical Exam Comments: 05/07/17 09:00 "GENERAL: Awake, alert, and fully oriented, in no acute distress HEAD: No signs of trauma EYES: PERRLA, EOMI, sclera anicteric, conjunctiva clear ENT: Auricles normal inspection, hearing grossly normal, nares patent, oropharynx clear without exudates. Moist mucosa NECK: Nontender, no stepoffs, Normal ROM, supple, no lymphadenopathy, JVD, or masses LUNGS: Breath sounds equal, clear to auscultation bilaterally. No wheezes, and no crackles HEART: Regular rate and rhythm, normal S1 and S2, no murmurs, rubs or gallops ABDOMEN: Soft, nontender, normoactive bowel sounds. No guarding, no rebound. No masses EXTREMITIES: Normal range of motion, no edema. No clubbing or cyanosis. No cords, erythema, or tenderness NEUROLOGICAL: Cranial nerves II through XII intact. 5/5 strength and sensation in all extremities, Normal speech, normal gait SKIN: Warm, Dry, normal turgor, no rashes or lesions noted. " ED Treatment Course - Medications Given in the ED: ED Medications Discontinued Medications Generic Name Dose Route Start Last Admin Trade Name Freq PRN Reason Stop Dose Admin Albuterol/Ipratropium 1 amp 05/07/17 04:47 05/07/17 05:05 Duoneb - NEB 05/07/17 04:48 1 amp ONCE ONE Administration Dexamethasone 10 mg 05/07/17 04:47 05/07/17 04:48 Decadron Liquid - PO 05/07/17 04:48 10 mg ONCE ONE Administration Medical Decision Making - Medical Decision Making 05/07/17 09:00 Sign out taken from Dr. Eastman at 7AM. 46M with asthma exacerbation. - Refusing all bloodwork - CXR obtained - shows no acute pathology Pt reassessed s/p nebulizers and steroids - now feeling significantly better. Lung exam at this time with NO wheezes. Vitals stable. Pt clinically stable for DC. I discussed the physical exam findings, ancillary test results and final diagnoses with the patient. I answered all of the patient's questions. The patient was satisfied with the care received and felt comfortable with the discharge plan and treatment plan. The patient agrees to follow up with the primary care physician within 24-72 hours. *DC/Admit/Observation/Transfer Diagnosis at time of Disposition: Asthma exacerbation - Discharge Dispostion Disposition: HOME - Prescriptions Prescriptions: Prednisone [Deltasone -] 2 tab PO DAILY #10 tablet - Referrals Referrals: STAFF,NOT ON [Primary Care Provider] - - Patient Instructions Printed Discharge Instructions: Asthma -- Adult Additional Instructions: Take the prednisone as prescribed to treat your asthma. Use your albuterol pump or nebulizer every 4 hours as needed for coughing or wheezing. If you experience worsening shortness of breath, chest pain, fevers, or any other concerning symptoms, return to the ER immediately. Otherwise, follow up with your primary doctor within 1 week for a re-evaluation. - Post Discharge Activity - Attestations Physician Attestion: 05/07/17 09:03 I, Dr. Norris Joy MD, attest that this document has been prepared under my direction and personally reviewed by me in its entirety. I further attest, that it accurately reflects all work, treatment, procedures and medical decision -making performed by me.
[2017-05-07 09:20] VITALS: PULSE 92; TEMP 98.2
== END 2017-05-07 09:30 | disposition home or self-care (01) ==
LOC: JER 02:40
PROC: 3E0F7GC Introduction of Other Therapeutic Substance into Respiratory Tract, Via Natural or Artificial Opening (ICD-10-PCS; principal; 2017-05-07)
PROC: 3E0F7GC Introduction of Other Therapeutic Substance into Respiratory Tract, Via Natural or Artificial Opening (ICD-10-PCS; 2017-05-07)
DX: J45.901 Unspecified asthma with (acute) exacerbation (principal); I10 Essential (primary) hypertension; F11.21 Opioid dependence, in remission; F14.21 Cocaine dependence, in remission
CPT/HCPCS: 71046-TC; 94640; 99281-25

== ENCOUNTER 2017-05-22 14:32 | Inpatient (IN) | payer OTHER ==
[2017-05-22] MEDS ORDERED: NALOXONE HCL 0.4 MG/ML VIAL IVPUSH ONE (14:42)
[2017-05-22] MEDS ORDERED: ALBUTEROL SO4 2.5/IPRATROPIUM 0.5 INH SOL 3 ML VIAL.NEB. NEB ONE ×4 (14:42→22:14)
[2017-05-22] MEDS ORDERED: DEXAMETHASONE SOD PHOSPHATE 10 MG/1 ML VIAL ONE (14:43)
[2017-05-22] MEDS ORDERED: NALOXONE HCL 0.4 MG/ML VIAL ONE (14:44)
[2017-05-22] MEDS ORDERED: MAGNESIUM SULF 50% (8.12 MEQ/2 ML-1 GM VIAL) ONE (14:44)
--- NOTE | 2017-05-22 15:17 | PDOC ---
History of Present Illness - General Chief Complaint: Asthma Stated Complaint: SOB Time Seen by Provider: 05/22/17 14:42 History Source: Patient, EMS Exam Limitations: No Limitations - History of Present Illness Initial Comments: This is a 46 YOM with h/o asthma (admitted but never placed in ICU, never intubated) and heroin use who was BIBA for SOB the same as his prior asthma exacerbations. He notes a recent cough, but no other symptoms prior to today, and this afternoon he became SOB and began wheezing. He inhaled heroin this afternoon at about 2pm (same supplier but different batch), took a nap, and awoke about 30 minutes later with difficulty breathing. He did not try his albuterol treatments or other medications for his symptoms. EMS notes that the patient was a/o x4 on their arrival but seemed to become more tired en route. They did have him on non-rebreather and gave him 10 of Decadron, magnesium, and breathing treatment x2 en route. The patient states that the last time he had an asthma exacerbation that caused a hospital admission was a few weeks ago. Past History - Past Medical History Allergies/Adverse Reactions: Allergies Allergy/AdvReac Type Severity Reaction Status Date / Time No Known Allergies Allergy Verified 05/22/17 14:40 Home Medications: Ambulatory Orders Albuterol Sulfate [Proventil HFA Inhaler -] 1 - 2 inh PO QID #1 inhaler Montelukast Na [Singulair -] 10 mg PO HS #30 tablet 07/29/16 Budesonide/Formeterol Fumarate [SYMBICORT 160/4.5mcg -] 1 inh PO BID #1 cannister 08/14/16 Prednisone [Deltasone -] 2 tab PO DAILY #10 tablet 05/07/17 Anemia: No Asthma: Yes Cancer: No Cardiac Disorders: No CVA: No COPD: Yes CHF: No Dementia: No Diabetes: No GI Disorders: No Disorders: No HTN: No Hypercholesterolemia: No Kidney Stones: No Liver Disease: No Seizures: No Thyroid Disease: No (heroin abuse) - Surgical History Abdominal Surgery: No Appendectomy: No Cardiac Surgery: No Cholecystectomy: No Lung Surgery: No Neurologic Surgery: No Orthopedic Surgery: No - Reproductive History Testicular Surgery: No - Immunization History Td Vaccination: Yes Immunization Up to Date: Yes - Suicide/Smoking/Psychosocial Hx Smoking Status: Yes Smoking History: Current some day smoker Years of Tobacco Use: 40 Have you smoked in the past 12 months: Yes Number of Cigarettes Smoked Daily: 2 If you are a former smoker, when did you quit?: 2014 Cigars Per Day: 0 Information on smoking cessation initiated: No 'Breaking Loose' booklet given: 04/10/17 Hx Alcohol Use: No Drug/Substance Use Hx: Yes (heroin and cocaine in past) Substance Use Type: Cocaine, Heroin Hx Substance Use Treatment: Yes ([facility] detox and IOP) Respiratory Specific PMHX - Complaint Specific PMHX TB (Tuberculosis): No Review of Systems - Review of Systems Able to Perform ROS?: Yes Constitutional: Yes: Other (tired). No: Chills, Fever, Unexplained wgt Loss HEENTM: No: Nose Congestion, Throat Pain Respiratory: Yes: Cough, Shortness of Breath, Wheezing Cardiac (ROS): No: Chest Pain, Palpitations ABD/GI: No: Constipated, Diarrhea, Nausea, Vomiting : No: Burning, Dysuria Musculoskeletal: No: Back Pain, Neck Pain Integumentary: No: Bruising, Rash Neurological: No: Headache, Numbness, Tingling, Weakness, Dizziness Endocrine: No: Unexplained Weight Gain, Unexplained Weight Loss *Physical Exam - Vital Signs Last Vital Signs Temp Pulse Resp BP Pulse Ox 84 24 149/91 100 05/22/17 14:41 05/22/17 14:41 05/22/17 14:41 05/22/17 14:41 - Physical Exam General Appearance: Yes: Nourished, Appropriately Dressed, Other (tired- appearing adult male who falls asleep mid-sentence and when examiner is speaking to him, answers simple short questions with yes/no answers or other short answers). No: Apparent Distress HEENT: positive: EOMI, Normal Voice, Hearing Grossly Normal, Other (pupils 1 mm bilaterally). negative: Scleral Icterus (R), Scleral Icterus (L), Nasal Congestion Neck: positive: Trachea midline, Supple. negative: Tender, Rigid Respiratory/Chest: positive: Respiratory Distress (mild), Labored Respiration, Wheezing. negative: Crackles, Stridor Cardiovascular: positive: Regular Rhythm, Regular Rate. negative: Edema, Murmur Gastrointestinal/Abdominal: positive: Normal Bowel Sounds, Soft. negative: Tender, Organomegaly, Pulsatile Mass, Guarding Musculoskeletal: positive: Normal Inspection. negative: Decreased Range of Motion, Vertebral Tenderness Extremity: positive: Normal Capillary Refill, Normal Inspection, Normal Range of Motion. negative: Tender, Cyanosis Integumentary: positive: Normal Color, Dry, Warm. negative: Erythema, Rash, Bruising Neurologic: positive: temporary receptionist II-XII NML intact (grossly), Fully Oriented, Alert ( intermittently), Normal Mood/Affect, Normal Response, Motor Strength 5/5. negative: Confused, Disoriented ED Treatment Course - LABORATORY CBC & Chemistry Diagram: 05/22/17 16:04 05/22/17 15:50 - Medications Given in the ED: ED Medications Discontinued Medications Generic Name Dose Route Start Last Admin Trade Name Freq PRN Reason Stop Dose Admin Albuterol/Ipratropium 2 amp 05/22/17 14:42 05/22/17 14:52 Duoneb - NEB 05/22/17 14:43 2 amp ONCE ONE Administration Naloxone HCl 0.4 mg 05/22/17 14:42 05/22/17 15:03 Narcan - IVPUSH 05/22/17 14:43 Not Given ONCE ONE Medical Decision Making - Medical Decision Making 46 YOM with asthma and heroin use who was BIBA for SOB/wheezing shortly after inhaling heroin. On exam he is tired appearing but VS wnl, on non-rebreather on supplemental O2, satting well. Diffuse expiratory wheezes and rhonchi. Ordered is CBCD CMP Mg Cardiac panel CXR UA Cx DuoNebx2. 05/22/17 18:24 Patient breathing comfortably. Awake and alert much improved. Asking for food; is given something to eat. Patient's care to be signed out to Dr. Anand for continued care at end of my shift.
--- NOTE | 2017-05-22 16:05 | PDOC ---
Attending Attestation - Resident Resident Name: JustineJennifer - ED Attending Attestation I have performed the following: I have examined & evaluated the patient, The case was reviewed & discussed with the resident, I agree w/resident's findings & plan, Exceptions are as noted - HPI HPI: 05/22/17 16:01 46-year-old male with history of asthma and heroin abuse presents brought in by EMS with asthma exacerbation in the setting of sniffing heroin. Patient had new batch of heroin from his usual supplier, inhaled around 2 PM and fell asleep but awoke about an hour later with acute wheezing and respiratory distress. EMS was activated, he received nebulizer 2, steroids, and magnesium in the field with significant improvement. Presents now with persistent wheezing but feels much better, denies any chest pain, denies any recent fevers or productive cough. - Physicial Exam PE: 05/22/17 16:02 slight tachypnea, sedated but arousable, pupils are constricted O2 sat 95% on room air Heart is regular, no murmurs Lungs with moderate to good air entry, diffuse expiratory wheezing Abdomen benign No calf tenderness or edema or skin track herr - Critical Care Time Total Critical Care Time: 45 Critical Care Statement: The care of this patient involved high complexity decision making to prevent further life threatening deterioration of the patient 's condition and/or to evaluate & treat vital organ system(s) failure or risk of failure. - Medical Decision Making 05/22/17 16:03 Patient seen and evaluated with the resident. I agree with the overall evaluation, assessment, and management with the following summary of visit: 46-year-old male with history of asthma presents with acute hypoxic respiratory distress in the setting of inhaling heroin. Likely reactive airway exacerbation , rule out infiltrate or pulmonary edema. Patient seen immediately upon arrival, nebulizers continued, alert and answering questions, no indication for Narcan Labs, EKG, chest x-ray Continue nebulizers Reassess Heart Score/ECG Review #1 General ECG Interpretation: Sinus Rhythm, Normal Rate (78), Normal Intervals ( qtc 426), No acute ischemic changes
[2017-05-22 16:33] LABS: BASO % 0.9 % (0-2.0); EOS % 6.6 % (0-4.5); HEMATOCRIT 37.9 % (35.4-49); HEMOGLOBIN 12.2 GM/dL (11.7-16.9); LYMPH % 11.6 % (8-40); MCH 25.4 pg (25.7-33.7); MCHC 32.3 g/dl (32.0-35.9); MEAN CELL VOLUME 78.8 fl (80-96); MEAN PLT VOLUME 8.5 fl (7.5-11.1); MONO % 4.3 % (3.8-10.2); NEUT % 76.6 % (42.8-82.8); PLATELET COUNT 264 K/MM3 (134-434); RBC 4.81 M/mm3 (4.00-5.60); RDW 14.7 % (11.9-15.9); WHITE BLOOD COUNT 7.8 K/mm3 (4.0-10.0)
[2017-05-22 16:58] LABS: ALBUMIN 3.5 g/dl (3.4-5.0); ANION GAP 9 (8-16); BILIRUBIN,TOTAL 0.4 mg/dL (0.2-1.0); BLOOD UREA NITROGEN 6 mg/dL (7-18); CALCIUM 8.7 mg/dL (8.5-10.1); CHLORIDE 105 mmol/L (98-107); CO2 28 mmol/L (21-32); GLUCOSE,RANDOM 108 mg/dL (74-106); MAGNESIUM 2.8 mg/dL (1.8-2.4); POTASSIUM 4.2 mmol/L (3.5-5.1); SODIUM 142 mmol/L (136-145); TOT PROT 6.9 g/dl (6.4-8.2)
[2017-05-22 16:59] LABS: ALK PHOS 85 U/L (45-117); SGOT/AST 14 U/L (15-37); SGPT/ALT 21 U/L (12-78)
[2017-05-22 17:14] LABS: CREATININE 0.6 mg/dL (0.7-1.3)
--- NOTE | 2017-05-22 21:31 | PDOC ---
*Physical Exam - Vital Signs Last Vital Signs Temp Pulse Resp BP Pulse Ox 98.5 F 83 20 142/72 96 05/22/17 17:59 05/22/17 17:59 05/22/17 17:59 05/22/17 17:59 05/22/17 17:59 - Physical Exam Comments: 46yo M with a PMHx of Asthma, Heroin Abuse who presented to ER in acute asthma exacerbation after sniffing heroin. He received duonebs x2, steroids, magnesium. Patient felt better after duonebs, but now after re-examination in a couple of hours, is still wheezing and chest tightness. CXR shows no infiltrate. Since he has not improved with the above measures, I recommend admission. PMD is Dr Eric Yanez. Covering physician is Dr Diaz 05/22/17 21:[address] Diaz, patient accepted. Flu swab ordered ED Treatment Course - LABORATORY CBC & Chemistry Diagram: 05/22/17 16:04 05/22/17 15:50 - ADDITIONAL ORDERS Additional order review: Laboratory Results 05/22/17 05/22/17 15:50 15:50 Sodium 142 Potassium 4.2 Chloride 105 Carbon Dioxide 28 Anion Gap 9 BUN 6 L D Creatinine 0.6 L D Creat Clearance w eGFR > 60 Random Glucose 108 H Calcium 8.7 Magnesium 2.8 H D Total Bilirubin 0.4 D AST 14 L D ALT 21 Alkaline Phosphatase 85 Creatine Kinase 122 Troponin I < 0.02 Total Protein 6.9 Albumin 3.5 05/22/17 16:04 RBC 4.81 MCV 78.8 L MCHC 32.3 RDW 14.7 MPV 8.5 Neutrophils % 76.6 Lymphocytes % 11.6 D Monocytes % 4.3 Eosinophils % 6.6 H Basophils % 0.9 - Medications Given in the ED: ED Medications Discontinued Medications Generic Name Dose Route Start Last Admin Trade Name Freq PRN Reason Stop Dose Admin Albuterol/Ipratropium 2 amp 05/22/17 14:42 05/22/17 14:52 Duoneb - NEB 05/22/17 14:43 2 amp ONCE ONE Administration Naloxone HCl 0.4 mg 05/22/17 14:42 05/22/17 15:03 Narcan - IVPUSH 05/22/17 14:43 Not Given ONCE ONE *DC/Admit/Observation/Transfer Diagnosis at time of Disposition: Asthma exacerbation Qualifiers: Asthma severity: moderate Asthma persistence: unspecified Qualified Code(s): J45.901 - Unspecified asthma with (acute) exacerbation - Discharge Dispostion Condition at time of disposition: Stable Admit: Yes - Referrals - Patient Instructions - Post Discharge Activity
[2017-05-23 01:30] VITALS: BMI 29.2
[2017-05-23] MEDS ORDERED: AZITHROMYCIN IVPB 500 MG in DEXTROSE 5%-WATER - 250 ML IVPB ONE (03:48)
[2017-05-23] MEDS ORDERED: ALBUTEROL SO4 2.5/IPRATROPIUM 0.5 INH SOL 3 ML VIAL.NEB. NEB PRN (03:49)
[2017-05-23] MEDS ORDERED: CEFTRIAXONE 1 G/50 ML PREMIX 50 ML IVPB SCH (04:15)
[2017-05-23] MEDS: methylPREDNISolone NA SUCC 40 MG/1 ML VIAL IVPUSH SCH ×3 (04:47→22:07)
[2017-05-23] MEDS: BUDESONIDE/FORMETEROL FUMARATE 160/4.5 mcg INHALER IH SCH ×2 (10:11→22:14)
[2017-05-23] MEDS: HEPARIN NA (PORCINE) 5,000 UNITS/ML 1ML VIAL SQ SCH ×2 (10:11→22:15)
[2017-05-23 10:55] LABS: BASO % 0.7 % (0-2.0); HEMATOCRIT 40.6 % (35.4-49); HEMOGLOBIN 12.9 GM/dL (11.7-16.9); LYMPH % 8.5 % (8-40); MCH 24.7 pg (25.7-33.7); MCHC 31.8 g/dl (32.0-35.9); MEAN CELL VOLUME 77.6 fl (80-96); MEAN PLT VOLUME 8.5 fl (7.5-11.1); MONO % 1.8 % (3.8-10.2); PLATELET COUNT 298 K/MM3 (134-434); RBC 5.23 M/mm3 (4.00-5.60); RDW 14.7 % (11.9-15.9); WHITE BLOOD COUNT 7.2 K/mm3 (4.0-10.0)
--- NOTE | 2017-05-23 11:13 | CONSULT ---
Consult Detox [facility] Reason for Current Admission/Consult: opioid use disorder, needs opioid detox Referred by:: dr. Diaz - History History of Present Illness: 46 yo obese male with h/o severe OUD and cocaine depdnence, known to me from [facility] where he has been admitted for inapteint detoxification from opioid/ heroin in past but never completed detox admitted after ihaling heorin and cocaien and having acute exacerbation of asthma/COPD r/o pneumonia. now c/o opioid withdrawal sx, no h/o seizuires, no SI at thist joleen, deneis psychaitric illness. anxiety, depression adn insomnia reported with bodyaches and sweats. - History Source History Provided By: Patient, Medical Record, Caregiver Limitations to Obtaining History: No Limitations - Alcohol/Substance Use Hx Alcohol Use: No Hx Substance Use: Yes (heroin, cocaine) Hx Substance Use Treatment: Yes ([facility] - did nto complete) - Current Drug/Alcohol Use Heroin Route: Inhalation Frequency: Daily Amount used: 15 bags Age of first use: 36 Date of Last Use: 05/22/17 Cocaine Route: Inhalation Frequency: Daily Amount used: 2 grams Age of first use: 36 Date of Last Use: 05/22/17 - Past Medical History Pulmonary: Yes: Asthma, COPD Psych: Yes: Addictions (heroin) - Past Surgical History Past Surgical History: Yes: None - Significant Medical Findings: 46 yo w h/o OUD, cociane dependence admitted with exacerbation fo asthm/copd after imnhaling heroin and cocaine now in withdrawwl from opioids. known to me frfom prior admissions at [facility], hsnot completed detox in the past. COWS - Scale Resting Pulse: 1= [place] 81-100 Sweatin= Chills/Flushing Restless Observation: 1= Difficult to Sit Still Pupil Size: 1= Pupils >than Normal Bone or Joint Aches: 1= Mild Discomfort Runny Nose/ Eye Tearin= Nasal Congestion GI Upset > 30mins: 2= Nausea/Diarrhea Tremor Observation: 1= Tremor [place], Not Seen Yawning Observation: 1= 1-2x During Session Anxiety or Irritability: 2=Irritable/Anxious Goose Flesh Skin: 3=Piloerection COWS Score: 15 Assessment Plan - Diagnosis (1) Acute bronchospasm Status: Acute (2) Asthma Status: Acute Qualifiers: Asthma severity: mild Asthma persistence: unspecified Asthma complication type: uncomplicated Qualified Code(s): J45.909 - Unspecified asthma, uncomplicated (3) Cocaine dependence, uncomplicated Status: Acute (4) Drug-induced mood disorder Status: Acute (5) Nicotine dependence Status: Acute Qualifiers: Nicotine product type: cigarettes Substance use status: in withdrawal Qualified Code(s): F17.213 - Nicotine dependence, cigarettes, with withdrawal (6) Upper respiratory infection Status: Acute Qualifiers: URI type: unspecified URI Qualified Code(s): J06.9 - Acute upper respiratory infection, unspecified (7) Acute exacerbation of chronic obstructive pulmonary disease (COPD) Status: Chronic (8) Opioid dependence with withdrawal Status: Chronic - Plan Plan: chart, labs, imaging reviewed, case discussed with medical providers, paatient examined, history taken. Recommend: 1. OUD - heroin , methadone detox ordered, fluids, mvi 2. cocaoien dependence 3. nicotien dependence - patch /gum 4. exacerbation copd/asthma - as per [facility] refer for inapteitn rehab after detox and medically stable. Cokry Limon MD [phone] - Medication Detox Regimen/Protocol: Methadone
[2017-05-23] MEDS ORDERED: METHADONE HCL 10 MG TABLET PO ONE ×2 (11:15→23:00)
[2017-05-23] MEDS ORDERED: METHADONE HCL 10 MG TABLET (FOR DETOX USE ONLY) PO ONE (11:16)
[2017-05-23 11:19] LABS: ALBUMIN 3.5 g/dl (3.4-5.0); ANION GAP 7 (8-16); BLOOD UREA NITROGEN 6 mg/dL (7-18); CALCIUM 8.7 mg/dL (8.5-10.1); CHLORIDE 107 mmol/L (98-107); CO2 26 mmol/L (21-32); GLUCOSE,RANDOM 147 mg/dL (74-106); POTASSIUM 4.1 mmol/L (3.5-5.1); SODIUM 140 mmol/L (136-145)
[2017-05-23 11:22] LABS: ALK PHOS 84 U/L (45-117); BILIRUBIN,TOTAL 0.8 mg/dL (0.2-1.0); CREATININE 0.6 mg/dL (0.7-1.3); SGOT/AST 7 U/L (15-37); SGPT/ALT 19 U/L (12-78); TOT PROT 6.9 g/dl (6.4-8.2)
[2017-05-23] MEDS ORDERED: NICOTINE POLACRILEX 2 MG GUM BUC PRN (11:25)
--- NOTE | 2017-05-23 11:28 | EKG ---
Test Reason : Blood Pressure : / mmHG Vent. Rate : 078 BPM Atrial Rate : 078 BPM P-R Int : 172 ms QRS Dur : 080 ms QT Int : 374 ms P-R-T Axes : 026 012 020 degrees QTc Int : 426 ms NORMAL SINUS RHYTHM NORMAL ECG WHEN COMPARED WITH ECG OF 10-APR-2017 16:26, NO SIGNIFICANT CHANGE WAS FOUND Confirmed by THERESA MCINTOSH MD ([id number]) on 05/23/2017 11:28:36 AM Referred By: Confirmed By:THERESA MCINTOSH MD
[2017-05-23] MEDS: NICOTINE 14 MG/24 HOURS TOPICAL PATCH TD SCH (12:53)
--- NOTE | 2017-05-23 14:51 | HP ---
Admitting History and Physical - Past Medical History Pulmonary: Yes: Asthma Psych: Yes: Addictions (heroin) - Past Surgical History Past Surgical History: Yes: None - Smoking History Smoking history: Current some day smoker Have you smoked in the past 12 months: Yes Aproximately how many cigarettes per day: 10 If you are a former smoker, when did you quit?: 2014 - Alcohol/Substance Use Hx Alcohol Use: No History of Substance Use: reports: Heroin - Social History ADL: Independent Occupation: Unemployed History of Recent Travel: No Home Medications - Allergies Allergies/Adverse Reactions: Allergies Allergy/AdvReac Type Severity Reaction Status Date / Time No Known Allergies Allergy Verified 05/22/17 14:40 - Home Medications Home Medications: Ambulatory Orders Albuterol Sulfate [Proventil HFA Inhaler -] 1 - 2 inh PO QID #1 inhaler Montelukast Na [Singulair -] 10 mg PO HS #30 tablet 07/29/16 Budesonide/Formeterol Fumarate [SYMBICORT 160/4.5mcg -] 1 inh PO BID #1 cannister 08/14/16 Prednisone [Deltasone -] 2 tab PO DAILY #10 tablet 05/07/17 Family Disease History - Family Disease History Family Disease History: Diabetes: Mother, CA: Father (.) Physical Examination Vital Signs: Vital Signs Temperature 98.7 F 05/23/17 08:00 Pulse Rate 77 05/23/17 08:00 Respiratory Rate 20 05/23/17 08:00 Blood Pressure 128/67 05/23/17 08:00 O2 Sat by Pulse Oximetry (%) 96 05/23/17 08:00 Labs: CBC, BMP 05/23/17 10:25 05/23/17 10:25
--- NOTE | 2017-05-23 15:27 | PN ---
Progress Note (short form) - Note Progress Note: PULMONARY CONSULTATION DICTATED 05/23/17 IMP CHRONIC PERSISTENT ASTHMA WITH ACUTE EXACERBATION SECONDARY TO SNORTING HEROIN SUBSTANCE ABUSE NON-COMPLIANCE SMOKER PLAN IV STEROIDS INHALED BRONCHODILATORS D/C ANTIBIOTICS O2 MONITOR PEAK FLOW SMOKING CESSATION COUNSELED DR THOMPSON Problem List - Problems (1) Heroin abuse Code(s): F11.10 - OPIOID ABUSE, UNCOMPLICATED (2) Asthma exacerbation Code(s): J45.901 - UNSPECIFIED ASTHMA WITH (ACUTE) EXACERBATION Qualifiers: Asthma severity: moderate Asthma persistence: unspecified Qualified Code( s): J45.901 - Unspecified asthma with (acute) exacerbation (3) Acute bronchospasm Code(s): J98.01 - ACUTE BRONCHOSPASM (4) Nicotine dependence Code(s): F17.200 - NICOTINE DEPENDENCE, UNSPECIFIED, UNCOMPLICATED Qualifiers: Nicotine product type: cigarettes Substance use status: in withdrawal Qualified Code(s): F17.213 - Nicotine dependence, cigarettes, with withdrawal (5) Cocaine dependence Code(s): F14.20 - COCAINE DEPENDENCE, UNCOMPLICATED Qualifiers: Substance use status: uncomplicated Qualified Code(s): F14.20 - Cocaine dependence, uncomplicated
[2017-05-23] MEDS: diazePAM 5 MG TABLET PO PRN ×2 (18:04→22:13)
--- NOTE | 2017-05-23 18:24 | CONS ---
DATE OF CONSULTATION: 05/23/2017 PULMONARY CONSULTATION REFERRING PHYSICIAN: Flavia Diaz M.D. HISTORY OF PRESENT ILLNESS: The patient is a 46-year-old male known to me from previous hospitalization and past medical history of chronic asthma, poorly compliant. History of substance abuse. Multiple hospitalizations in the past. No history of respiratory failure. Admitted to [facility] with increasing shortness of breath, cough, and bronchospasm. Patient states he apparently had increasing shortness of breath. He started snorting heroin apparently a new batch and fell asleep. He woke up an hour later with acute bronchospasm, respiratory distress. Patient took his nebulizer without any improvement, at which time EMS was called, and patient was brought to the emergency room. In the ER, patient was administered inhaled bronchodilators, IV steroids, and magnesium sulfate with good clinical improvement. Patient denies any fevers, chills, nausea, vomiting, diaphoresis, hemoptysis. Denies any chest pains or palpitations. There is no history of recent travel. He denies a history of occupational exposure to chemicals or fumes. Patient was recently hospitalized for asthma exacerbation and discharged on steroid taper, which he stopped on his own. He is on followup with his PMD. PAST MEDICAL HISTORY: Again includes substance abuse, chronic persistent asthma. REVIEW OF SYSTEMS: Positive shortness of breath. Positive cough. Positive wheezing. No chest pain. No palpitation. No fever. No chills. No hemoptysis. No abdominal pain. No lower extremity edema. CURRENT MEDICATIONS: Include Symbicort 160/4.5, Solu-Medrol 40 q.8, heparin, Nicoderm, Nicorette, valium, DuoNeb, ceftriaxone, Singulair, vitamins, methadone, and vitamin D1. PHYSICAL EXAMINATION: General: The patient is a well-developed, well-nourished male, awake, alert, currently in no acute distress. Vital signs: He is afebrile. Blood pressure is 146/98, respiratory rate 20, O2 saturation is 96% on room air. HEENT: Head is normocephalic, atraumatic. Neck: Supple. Heart: Regular. S1, S2. Chest: Scattered bilateral wheezes. Abdomen: Soft. Bowel sounds positive. Extremities: No cyanosis, edema. LABORATORY: WBC 7.2, hemoglobin 12.9, hematocrit 40.6 with a platelet count of 298,000. BUN is 6, creatinine 0.6. Chest x-ray reveals no infiltrates, no effusions. IMPRESSION: 1. Chronic persistent asthma acute exacerbation, most likely secondary to inhalation of heroin. 2. Substance abuse. PLAN: IV steroids. Inhaled bronchodilators. Monitor peak flow. Discontinue antibiotics. No evidence of infection. Consider substance abuse counselor. ANGELA THOMPSON M.D. [id number]
[2017-05-23] MEDS ORDERED: PT OWN MED DRAWER 7, Y5N ONE ×2 (21:02→22:20)
[2017-05-23] MEDS ORDERED: MONTELUKAST NA 10 MG TABLET PO SCH (22:00)
[2017-05-23] MEDS ORDERED: THIAMINE HCL 100 MG TABLET (FP) PO SCH (22:00)
[2017-05-24] MEDS: methylPREDNISolone NA SUCC 40 MG/1 ML VIAL IVPUSH SCH ×3 (02:42→15:04)
[2017-05-24] MEDS: diazePAM 5 MG TABLET PO PRN ×2 (08:37→15:04)
[2017-05-24] MEDS ORDERED: PT OWN MED DRAWER 7, Y5N ONE (09:50)
[2017-05-24] MEDS: NICOTINE 14 MG/24 HOURS TOPICAL PATCH TD SCH (09:53)
[2017-05-24] MEDS: HEPARIN NA (PORCINE) 5,000 UNITS/ML 1ML VIAL SQ SCH (09:53)
[2017-05-24] MEDS: BUDESONIDE/FORMETEROL FUMARATE 160/4.5 mcg INHALER IH SCH (09:53)
[2017-05-24] MEDS ORDERED: PRENATAL VITAMINS W/ FOLIC ACID TABLET (FP) PO SCH (10:00)
[2017-05-24] MEDS ORDERED: METHADONE HCL 10 MG TABLET PO ONE (10:00)
[2017-05-24] MEDS ORDERED: ALBUTEROL SO4 0.083% IH SOL 2.5 MG/3 ML VIAL.NEB. NEB PRN (11:30)
--- NOTE | 2017-05-24 11:30 | PN ---
Progress Note (short form) - Note Progress Note: PULMONARY Breathing slightly improved. +nonproductive cough and wheezing. No fevers or chills. Last Vital Signs Temp Pulse Resp BP Pulse Ox 97.7 F 72 19 124/85 96 05/24/17 05:22 05/24/17 05:22 05/24/17 05:22 05/24/17 05:22 05/23/17 20:22 Gen: NAD at rest Heart: RRR Lung: poor air movement, bilateral rhonch, wheezes Abd: soft, nontender Ext: no edema CBC, BMP 05/23/17 10:25 05/23/17 10:25 Active Medications Albuterol/Ipratropium (Duoneb -) 1 amp NEB Q6H PRN PRN Reason: SHORTNESS OF BREATH Budesonide/Formoterol Fumarate (Symbicort 160/4.5mcg -) 1 puff IH BID [facility] Last Admin: 05/24/17 09:53 Dose: 1 inh Diazepam (Valium -) 10 mg PO Q4H PRN PRN Reason: WITHDRAWAL(CONT SUBST) Stop: 05/26/17 11:15 Last Admin: 05/24/17 08:37 Dose: 10 mg Heparin Sodium (Porcine) (Heparin -) 5,000 unit SQ BID [facility] Last Admin: 05/24/17 09:53 Dose: Not Given Methadone HCl (Dolophine -) 15 mg PO ONCE ONE Stop: 05/25/17 23:59 Methadone HCl (Dolophine -) 5 mg PO ONCE@0600 ONE Stop: 05/28/17 23:59 Methadone HCl (Dolophine -) 15 mg PO ONCE ONE Stop: 05/26/17 23:59 Methadone HCl (Dolophine -) 10 mg PO ONCE ONE Stop: 05/27/17 10:01 Methylprednisolone Sodium Succinate (Solu-Medrol -) 40 mg IVPUSH Q6H-IV [facility] Last Admin: 05/24/17 09:53 Dose: 40 mg Montelukast Sodium (Singulair -) 10 mg PO HS [facility] Last Admin: 05/23/17 22:14 Dose: 10 mg Nicotine (Nicoderm Patch -) 14 mg TD DAILY [facility] Last Admin: 05/24/17 09:53 Dose: Not Given Nicotine Polacrilex (Nicorette Gum -) 2 mg BUC Q2H PRN PRN Reason: NICOTINE REPLACEMENT RX Multivit/Folic Acid/Iron ( Vitamins (Sjr) -) 1 tab PO DAILY [facility] Last Admin: 05/24/17 09:54 Dose: 1 tab Thiamine HCl (Vitamin B1 -) 100 mg PO HS [facility] Last Admin: 05/23/17 22:14 Dose: 100 mg A/P Acute Asthma Exacerbation Substance Abuse Smoker - continue medrol at current dose - inhaled bronchodilators standing and PRN - singulair - O2 to keep SpO2 >90% - detox by addiction medicine - tobacco, heroin cessation - DVT prophylaxis
[2017-05-24] MEDS: ALBUTEROL SO4 2.5/IPRATROPIUM 0.5 INH SOL 3 ML VIAL.NEB. NEB SCH ×2 (13:10→16:32)
[2017-05-24 14:13] VITALS: BP 135/79; PULSE 78; TEMP 98
--- NOTE | 2017-05-24 18:53 | PN ---
[facility] Progress Note (SOAP) Subjective: came to see patient, no where to be found Objective: 05/24/17 18:52 Vital Signs - 24 hr 05/23/17 05/24/17 05/24/17 20:22 05:22 08:00 Temperature 97.7 F 98.5 F Pulse Rate 72 80 Respiratory 19 20 Rate Blood Pressure 124/85 139/66 O2 Sat by Pulse 96 96 Oximetry (%) 05/24/17 14:00 Temperature 98.0 F Pulse Rate 78 Respiratory 21 Rate Blood Pressure 135/79 O2 Sat by Pulse Oximetry (%) Laboratory Tests 05/22/17 05/22/17 05/22/17 15:50 15:50 16:04 WBC 7.8 D RBC 4.81 Hgb 12.2 Hct 37.9 MCV 78.8 L MCH 25.4 L MCHC 32.3 RDW 14.7 Plt Count 264 MPV 8.5 Neutrophils % 76.6 Lymphocytes % 11.6 D Monocytes % 4.3 Eosinophils % 6.6 H Basophils % 0.9 Sodium 142 Potassium 4.2 Chloride 105 Carbon Dioxide 28 Anion Gap 9 BUN 6 L D Creatinine 0.6 L D Creat Clearance w eGFR > 60 Random Glucose 108 H Calcium 8.7 Magnesium 2.8 H D Total Bilirubin 0.4 D AST 14 L D ALT 21 Alkaline Phosphatase 85 Creatine Kinase 122 Troponin I < 0.02 Total Protein 6.9 Albumin 3.5 05/23/17 05/23/17 10:25 10:25 WBC 7.2 RBC 5.23 Hgb 12.9 Hct 40.6 MCV 77.6 L MCH 24.7 L MCHC 31.8 L RDW 14.7 Plt Count 298 MPV 8.5 Neutrophils % 89.0 H Lymphocytes % 8.5 D Monocytes % 1.8 L Eosinophils % 0.0 D Basophils % 0.7 Sodium 140 Potassium 4.1 Chloride 107 Carbon Dioxide 26 Anion Gap 7 L BUN 6 L Creatinine 0.6 L Creat Clearance w eGFR > 60 Random Glucose 147 H D Calcium 8.7 Magnesium Total Bilirubin 0.8 D AST 7 L D ALT 19 Alkaline Phosphatase 84 Creatine Kinase Troponin I Total Protein 6.9 Albumin 3.5 Assessment: 05/24/17 18:53 OUD - on methadone detox, nurse reports alice signed out AMA 1 hour jayson
[2017-05-25] MEDS ORDERED: METHADONE HCL 5 MG TABLET PO ONE (10:00)
--- NOTE | 2017-05-25 20:06 | DS ---
Physical Examination Vital Signs: Vital Signs Temperature 98.0 F 05/24/17 14:00 Pulse Rate 78 05/24/17 14:00 Respiratory Rate 21 05/24/17 14:00 Blood Pressure 135/79 05/24/17 14:00 O2 Sat by Pulse Oximetry (%) 96 05/24/17 08:00 Labs: CBC, BMP 05/23/17 10:25 05/23/17 10:25 Discharge Summary Reason For Visit: ASTHMA WITH ACUTE EXACERBATION Condition: Stable - Instructions Disposition: AGAINST MEDICAL ADVICE - Home Medications Comprehensive Discharge Medication List: Ambulatory Orders Albuterol Sulfate [Proventil HFA Inhaler -] 1 - 2 inh PO QID #1 inhaler Montelukast Na [Singulair -] 10 mg PO HS #30 tablet 07/29/16 Budesonide/Formeterol Fumarate [SYMBICORT 160/4.5mcg -] 1 inh PO BID #1 cannister 08/14/16 predniSONE [Deltasone -] 2 tab PO DAILY #10 tablet 05/07/17
[2017-05-26] MEDS ORDERED: METHADONE HCL 5 MG TABLET (FOR DETOX USE ONLY) PO ONE (10:00)
[2017-05-27] MEDS ORDERED: METHADONE HCL 10 MG TABLET PO ONE (10:00)
[2017-05-28] MEDS ORDERED: METHADONE HCL 5 MG TABLET PO ONE (06:00)
== END 2017-05-24 16:41 | disposition left against medical advice (07) | DRG 141 ==
LOC: JER 14:32 → JERBED 21:32 → UNDOADMIN 22:51 → J6S 05-23 01:28
PROVIDERS: ADMIT Internal Medicine; ATTEND Internal Medicine
PROC: HZ2ZZZZ Detoxification Services for Substance Abuse Treatment (ICD-10-PCS; principal; 2017-05-23)
DX: J45.901 Unspecified asthma with (acute) exacerbation (principal); J44.1 Chronic obstructive pulmonary disease with (acute) exacerbation; F17.210 Nicotine dependence, cigarettes, uncomplicated; R09.02 Hypoxemia; F14.20 Cocaine dependence, uncomplicated; F11.23 Opioid dependence with withdrawal; Z91.14 Patient's other noncompliance with medication regimen
CPT/HCPCS: 36415; 71045-TC; 80053; 82550; 83735; 84484; 85025; 87804; 93005; 93010; 94640; 99284-25

== ENCOUNTER 2017-06-16 16:10 | Inpatient (IN) | payer OTHER ==
[2017-06-16] MEDS ORDERED: ALBUTEROL SO4 2.5/IPRATROPIUM 0.5 INH SOL 3 ML VIAL.NEB. NEB ONE ×4 (16:35→17:58)
[2017-06-16] MEDS ORDERED: predniSONE 20 MG TABLET (UD) PO ONE (17:14)
[2017-06-16] MEDS ORDERED: predniSONE 20 MG TABLET (UD) ONE (17:18)
--- NOTE | 2017-06-16 17:43 | PDOC ---
History of Present Illness - General Chief Complaint: Asthma Stated Complaint: S.O.B Time Seen by Provider: 06/16/17 16:49 - History of Present Illness Initial Comments: 06/16/17 17:34 CHIEF COMPLAINT: asthma attack HISTORY OF PRESENT ILLNESS: 46 yo M with PMH multiple admissions for asthma and recent history of heroin and cocaine abuse presents to ED with "asthma attack." The patient denies any fever, chills, or chest pain. Denies weakness/numbness , abd pain, LE edema, headache, rashes, bodyaches. Patient states he is a current smoker but he reports not 'smoking very much, like 2 cigarettes a day" PAST MEDICAL HISTORY: Denies past medical history FAMILY HISTORY: Denies SOCIAL HISTORY: heroin and cocaine abuse, current smoker. SURGICAL HISTORY: Denies ALLERGIES: No known drug allergies REVIEW OF SYSTEMS General/Constitutional: Denies fever or chills. Denies weakness, weight change. HEENT: Denies change in vision. Denies ear pain or discharge. Denies sore throat. Cardiovascular: Denies chest pain or shortness of breath. Respiratory: Wheezing, "asthma attack." Gastrointestinal: Denies nausea, vomiting, diarrhea or constipation. Denies rectal bleeding. Genitourinary: Denies dysuria, frequency, or change in urination. Musculoskeletal: Denies joint or muscle swelling or pain. Denies neck or back pain. Skin and breasts: Denies rash or easy bruising. Neurologic: Denies headache, vertigo, loss of consciousness, or loss of sensation. PHYSICAL EXAM General Appearance: Well-appearing, appropriately dressed. No apparent distress. HEENT: EOMI, PERRLA. No conjunctival pallor. No photophobia, scleral icterus. Respiratory/Chest: Diffuse inspiratory and expiratory wheezing b/l. Cardiovascular: RRR. S1, S2. No JVD, murmur, bradycardia, tachycardia. Gastrointestinal/Abdominal: Normal bowel sounds. Abdomen soft, non-distended. No tenderness or rebound tenderness. No organomegaly, pulsatile mass, guarding , hernia, hepatomegaly, splenomegaly. Musculoskeletal/Extremities: Normal inspection. FROM of all extremities, normal capillary refill. Pelvis Stable. No CVA tenderness. No tenderness to extremities, pedal edema, swelling, erythema or deformity. Integumentary: Appropriate color, dry, warm. No cyanosis, erythema, jaundice or rash Neurologic: imaging tech II-XII intact. Fully oriented, alert. Appropriate mood/affect. Motor strength 5/5. No appreciable EOM palsy, facial droop or sensory deficit. Past History - Past Medical History Allergies/Adverse Reactions: Allergies Allergy/AdvReac Type Severity Reaction Status Date / Time No Known Allergies Allergy Verified 06/16/17 16:22 Home Medications: Ambulatory Orders NK [No Known Home Medication] 06/16/17 Anemia: No Asthma: Yes Cancer: No Cardiac Disorders: No CVA: No COPD: No CHF: No Dementia: No Diabetes: No GI Disorders: No Disorders: No HTN: No Hypercholesterolemia: No Kidney Stones: No Liver Disease: No Seizures: No Thyroid Disease: No (heroin abuse) - Surgical History Abdominal Surgery: No Appendectomy: No Cardiac Surgery: No Cholecystectomy: No Lung Surgery: No Neurologic Surgery: No Orthopedic Surgery: No - Reproductive History Testicular Surgery: No - Immunization History Td Vaccination: Yes Immunization Up to Date: Yes - Suicide/Smoking/Psychosocial Hx Smoking Status: Yes Smoking History: Current some day smoker Years of Tobacco Use: 40 Have you smoked in the past 12 months: Yes Number of Cigarettes Smoked Daily: 10 If you are a former smoker, when did you quit?: 2015 Cigars Per Day: 0 Information on smoking cessation initiated: No 'Breaking Loose' booklet given: 06/05/17 Hx Alcohol Use: No Drug/Substance Use Hx: Yes (cocaine and heroin) Substance Use Type: Cocaine, Heroin Hx Substance Use Treatment: Yes (inpatient detoxification) Respiratory Specific PMHX - Complaint Specific PMHX TB (Tuberculosis): No *Physical Exam - Vital Signs Last Vital Signs Temp Pulse Resp BP Pulse Ox 97.7 F 91 H 20 133/85 95 06/16/17 16:22 06/16/17 16:22 06/16/17 16:22 06/16/17 16:22 06/16/17 16:22 ED Treatment Course - Medications Given in the ED: ED Medications Discontinued Medications Generic Name Dose Route Start Last Admin Trade Name Freq PRN Reason Stop Dose Admin Albuterol/Ipratropium 1 amp 06/16/17 16:35 06/16/17 16:36 Duoneb - NEB 06/16/17 16:36 1 amp NOW ONE Administration Albuterol/Ipratropium 1 amp 06/16/17 17:14 06/16/17 17:21 Duoneb - NEB 06/16/17 17:15 1 amp ONCE ONE Administration Prednisone 60 mg 06/16/17 17:14 06/16/17 17:21 Deltasone - PO 06/16/17 17:15 60 mg ONCE ONE Administration Medical Decision Making - Medical Decision Making 06/16/17 17:54 46 yo M with PMH multiple admissions for asthma and recent history of heroin and cocaine abuse presents to ED with "asthma attack." Patient reports last heroin use was yesterday, denies any recent cocaine or cigarette use. Patient received duoneb in triage. -Duoneb x 2 -Prednisone Patient still with significant inspiratory/expiratory wheezing. Will start IV Mag. Patient will be transferred to main ED for continued monitoring given severity of symptoms. Case discussed with JEANMARIE Brand. *DC/Admit/Observation/Transfer - Referrals Referrals: Eric Yanez MD [Primary Care Provider] - - Patient Instructions - Post Discharge Activity
[2017-06-16] MEDS ORDERED: MAGNESIUM SULF 50% (8.12 MEQ/2 ML-1 GM VIAL) IVPB ONE (17:58)
[2017-06-16 18:48] LABS: BASO % 0.5 % (0-2.0); EOS % 3.5 % (0-4.5); HEMATOCRIT 40.6 % (35.4-49); HEMOGLOBIN 13.1 GM/dL (11.7-16.9); MCH 25.4 pg (25.7-33.7); MCHC 32.2 g/dl (32.0-35.9); MEAN CELL VOLUME 78.8 fl (80-96); MONO % 5.1 % (3.8-10.2); NEUT % 78.9 % (42.8-82.8); PLATELET COUNT 317 K/MM3 (134-434); RBC 5.16 M/mm3 (4.00-5.60); RDW 16.3 % (11.9-15.9); WHITE BLOOD COUNT 13.7 K/mm3 (4.0-10.0)
[2017-06-16 19:46] LABS: ALBUMIN 3.3 g/dl (3.4-5.0); ANION GAP 7 (8-16); BILIRUBIN,TOTAL 0.4 mg/dL (0.2-1.0); BLOOD UREA NITROGEN 9 mg/dL (7-18); CALCIUM 8.3 mg/dL (8.5-10.1); CHLORIDE 105 mmol/L (98-107); CO2 28 mmol/L (21-32); CREATININE 0.7 mg/dL (0.7-1.3); GLUCOSE,RANDOM 122 mg/dL (74-106); POTASSIUM 4.1 mmol/L (3.5-5.1); SGOT/AST 8 U/L (15-37); SGPT/ALT 12 U/L (12-78); SODIUM 140 mmol/L (136-145); TOT PROT 6.5 g/dl (6.4-8.2)
[2017-06-16 19:47] LABS: ALK PHOS 88 U/L (45-117)
--- NOTE | 2017-06-16 21:41 | PDOC ---
*Physical Exam - Vital Signs Last Vital Signs Temp Pulse Resp BP Pulse Ox 98.5 F 88 18 142/76 98 06/16/17 21:21 06/16/17 21:21 06/16/17 21:21 06/16/17 21:21 06/16/17 21:21 - Physical Exam Comments: 06/16/17 21:40 Signed out from MANAGER MARKET Krys 46-year-old male with a history of asthma (previous admissions, once the ICU but no history of intubations). Heroin abuse(last snorted 16 hours ago) and cocaine abuse last snorted 16 hours ago ) presents to the emergency department complaining of shortness of breath since this morning. Patient states he had 2 treatments at home with no relief. Since in the emergency department, patient had dual nebs, prednisone 60 mg by mouth, magnesium IV 1 g with moderate relief. Patient states he still doesn't feel completely fine. Patient denies headache, dizziness, facial pains, rhinorrhea, cough, sore throat, earaches, chest pain, abdominal discomfort. Patient will be kept in the emergency department for ED observation 2141hrs: Dr. Hdez/hospitalist advise for ED observation. ED Treatment Course - LABORATORY CBC & Chemistry Diagram: 06/16/17 18:40 06/16/17 18:40 - ADDITIONAL ORDERS Additional order review: Laboratory Results 06/16/17 18:40 Sodium 140 Potassium 4.1 Chloride 105 Carbon Dioxide 28 Anion Gap 7 L BUN 9 D Creatinine 0.7 Creat Clearance w eGFR > 60 Random Glucose 122 H D Calcium 8.3 L Total Bilirubin 0.4 D AST 8 L D ALT 12 D Alkaline Phosphatase 88 Total Protein 6.5 Albumin 3.3 L 06/16/17 18:40 RBC 5.16 MCV 78.8 L MCHC 32.2 RDW 16.3 H MPV 8.0 Neutrophils % 78.9 Lymphocytes % 12.0 D Monocytes % 5.1 Eosinophils % 3.5 Basophils % 0.5 - Medications Given in the ED: ED Medications Discontinued Medications Generic Name Dose Route Start Last Admin Trade Name Freq PRN Reason Stop Dose Admin Albuterol/Ipratropium 1 amp 06/16/17 16:35 06/16/17 16:36 Duoneb - NEB 06/16/17 16:36 1 amp NOW ONE Administration Albuterol/Ipratropium 1 amp 06/16/17 17:14 06/16/17 17:21 Duoneb - NEB 06/16/17 17:15 1 amp ONCE ONE Administration Albuterol/Ipratropium 1 amp 06/16/17 17:58 06/16/17 18:57 Duoneb - NEB 06/16/17 17:59 1 amp ONCE ONE Administration Magnesium Sulfate 1 gm 06/16/17 17:58 06/16/17 18:58 Magnesium Sulfate IVPB 06/16/17 17:59 1 gm ONCE ONE Administration Prednisone 60 mg 06/16/17 17:14 06/16/17 17:21 Deltasone - PO 06/16/17 17:15 60 mg ONCE ONE Administration Progress Note - Progress Note Progress Note: 0638hrs: Spoke to DR. Diaz/ will admit to obs *DC/Admit/Observation/Transfer Diagnosis at time of Disposition: Asthma exacerbation Qualifiers: Asthma severity: moderate Asthma persistence: persistent Qualified Code(s): J45.41 - Moderate persistent asthma with (acute) exacerbation - Referrals - Patient Instructions - Post Discharge Activity
[2017-06-17 10:59] VITALS: BMI 27.3
[2017-06-17] MEDS ORDERED: ALBUTEROL SO4 2.5/IPRATROPIUM 0.5 INH SOL 3 ML VIAL.NEB. NEB PRN (13:50)
[2017-06-17] MEDS ORDERED: METHADONE HCL 10 MG TABLET PO SCH (14:00)
[2017-06-17] MEDS ORDERED: DEXTROSE 5%-0.45% SALINE 1,000 ML IV SCH (14:00)
--- NOTE | 2017-06-17 14:23 | EKG ---
Test Reason : Blood Pressure : / mmHG Vent. Rate : 076 BPM Atrial Rate : 076 BPM P-R Int : 174 ms QRS Dur : 082 ms QT Int : 370 ms P-R-T Axes : 040 023 041 degrees QTc Int : 416 ms NORMAL SINUS RHYTHM NORMAL ECG WHEN COMPARED WITH ECG OF 04-JUN-2017 10:12, NO SIGNIFICANT CHANGE WAS FOUND Confirmed by MD PEE, ROMIE ([id number]) on 06/17/2017 2:23:20 PM Referred By: Confirmed By:ROMIE GLASGOW MD
[2017-06-17] MEDS ORDERED: methylPREDNISolone NA SUCC 40 MG/1 ML VIAL IVPUSH SCH (14:30)
[2017-06-17] MEDS: CEFTRIAXONE 1 G/50 ML PREMIX 50 ML IVPB SCH (15:30)
--- NOTE | 2017-06-17 16:57 | HP ---
Admitting History and Physical - Admission History of Present Illness: Pt is a 46 y/o male w/ multiple admissions for asthma exacerbation after heroin use. Pt now lasted used heroin aobut 2 days ago.mmPt now presented to the ER bc of dry nonproductive coiugh/wheezing and SOB for the pat 2 days. - Past Medical History Pulmonary: Yes: Asthma, COPD Psych: Yes: Addictions (heroin) - Past Surgical History Past Surgical History: Yes: None - Smoking History Smoking history: Current some day smoker Have you smoked in the past 12 months: Yes Aproximately how many cigarettes per day: 10 If you are a former smoker, when did you quit?: 2015 - Alcohol/Substance Use Hx Alcohol Use: No History of Substance Use: reports: Heroin - Social History ADL: Independent Occupation: Unemployed History of Recent Travel: No Home Medications - Allergies Allergies/Adverse Reactions: Allergies Allergy/AdvReac Type Severity Reaction Status Date / Time No Known Allergies Allergy Verified 06/16/17 16:22 - Home Medications Home Medications: Ambulatory Orders NK [No Known Home Medication] 06/16/17 Family Disease History - Family Disease History Family History: Unremarkable Family Disease History: Diabetes: Mother, CA: Father (.) Review of Systems - Review of Systems Constitutional: reports: No Symptoms HENT: reports: No Symptoms Neck: reports: No Symptoms Cardiovascular: reports: Shortness of Breath Respiratory: reports: SOB, Wheezing Gastrointestinal: reports: No Symptoms Physical Examination Vital Signs: Vital Signs Temperature 97.9 F 06/17/17 14:18 Pulse Rate 83 06/17/17 11:50 Respiratory Rate 19 06/17/17 11:50 Blood Pressure 126/70 06/17/17 11:50 O2 Sat by Pulse Oximetry (%) 98 06/17/17 10:54 Eyes: Yes: WNL HENT: Yes: WNL Neck: Yes: WNL, Supple Cardiovascular: Yes: WNL, Regular Rate and Rhythm Respiratory: Yes: Wheezes Gastrointestinal: Yes: WNL, Normal Bowel Sounds, Soft Musculoskeletal: Yes: WNL Extremities: Yes: WNL Edema: No Neurological: Yes: WNL, Alert, Oriented ...Motor Strength: WNL Labs: CBC, BMP 06/16/17 18:40 06/16/17 18:40 Assessment/Plan 1. Exacerbation Asthma: Start IV ceftriaxone/zithro/soulmedrol/nebulizers 2. Heroin dependency: Addiction consult
[2017-06-17] MEDS: AZITHROMYCIN IVPB 500 MG in DEXTROSE 5%-WATER - 250 ML IVPB SCH (17:48)
--- NOTE | 2017-06-17 18:06 | CON.PULM ---
Consult Consult Specialty:: PULMONARY Referred by:: Dr. Diaz Reason for Consultation:: shortness of breath - History of Present Illness Chief Complaint: shortness of breath History of Present Illness: 46yo male with h/o asthma, intranasal cocaine and heroin abuse, noncompliant with medications who presents with worsening shortness of breath, chest tightness after sniffing heroin. No fevers, chills or sweats. No chest pain or palpitations. Only uses albuterol as needed, states "I don't know" when asked why he doesn't take his maintenance inhalers. Also continues to smoke cigarettes. - History Source History Provided By: Patient, Medical Record Limitations to Obtaining History: No Limitations - Past Medical History Pulmonary: Yes: Asthma, COPD Psych: Yes: Addictions (heroin) - Past Surgical History Past Surgical History: Yes: None - Alcohol/Substance Use Hx Alcohol Use: No History of Substance Use: reports: Heroin - Smoking History Smoking history: Current some day smoker Have you smoked in the past 12 months: Yes Aproximately how many cigarettes per day: 10 If you are a former smoker, when did you quit?: 2014 - Social History ADL: Independent Occupation: Unemployed History of Recent Travel: No Home Medications - Allergies Allergies/Adverse Reactions: Allergies Allergy/AdvReac Type Severity Reaction Status Date / Time No Known Allergies Allergy Verified 06/16/17 16:22 - Home Medications Home Medications: Ambulatory Orders NK [No Known Home Medication] 06/16/17 Family Disease History - Family Disease History Family Disease History: Diabetes: Mother, CA: Father (.) Review of Systems - Review of Systems Constitutional: denies: Chills, Fever Eyes: denies: Recent Change in Vision HENT: denies: Nasal Congestion, Throat Pain Neck: denies: Stiffness, Tenderness Cardiovascular: reports: Shortness of Breath. denies: Chest Pain, Edema, Palpitations Respiratory: reports: Cough, SOB, SOB on Exertion, Wheezing. denies: Hemoptysis Gastrointestinal: denies: Abdominal Pain, Nausea, Vomiting Genitourinary: denies: Dysuria, Hematuria Neurological: denies: Dizziness, Headache Physical Exam Vital Sings: Vital Signs Temperature 97.9 F 06/17/17 14:18 Pulse Rate 83 06/17/17 11:50 Respiratory Rate 19 06/17/17 11:50 Blood Pressure 126/70 06/17/17 11:50 O2 Sat by Pulse Oximetry (%) 98 06/17/17 10:54 Constitutional: Yes: Calm Eyes: Yes: Conjunctiva Clear, EOM Intact HENT: Yes: Atraumatic, Normocephalic Neck: Yes: Supple, Trachea Midline Cardiovascular: Yes: Regular Rate and Rhythm Respiratory: Yes: Rhonchi, Wheezes ...Clubbing: No Gastrointestinal: Yes: Normal Bowel Sounds, Soft. No: Tenderness Edema: No Neurological: Yes: Alert, Oriented Labs: CBC, BMP 06/16/17 18:40 06/16/17 18:40 Imaging - Results Chest X-ray: Report Reviewed, Image Reviewed (no infiltrates) Problem List - Problems (1) Asthma exacerbation Code(s): J45.901 - UNSPECIFIED ASTHMA WITH (ACUTE) EXACERBATION Qualifiers: Asthma severity: moderate Asthma persistence: persistent Qualified Code(s ): J45.41 - Moderate persistent asthma with (acute) exacerbation (2) Cocaine dependence, uncomplicated Code(s): F14.20 - COCAINE DEPENDENCE, UNCOMPLICATED (3) Heroin abuse Code(s): F11.10 - OPIOID ABUSE, UNCOMPLICATED (4) Nicotine dependence Code(s): F17.200 - NICOTINE DEPENDENCE, UNSPECIFIED, UNCOMPLICATED Qualifiers: Nicotine product type: cigarettes Substance use status: in withdrawal Qualified Code(s): F17.213 - Nicotine dependence, cigarettes, with withdrawal Assessment/Plan Acute Asthma Exacerbation Cocaine Abuse Heroin Abuse Smoker Noncompliance - IV medrol - inhaled bronchodilators standing and PRN - monitor peak flow - singulair - encouraged compliance with maintenance inhalers - cocaine/heroin/tobacco cessation - DVT prophylaxis Thank you for this consult Fletcher Rdz MD
--- NOTE | 2017-06-17 18:10 | CONSULT ---
Consult Detox [facility] Reason for Current Admission/Consult: polysubstance use Referred by:: dr. Diaz - History History of Present Illness: 46 yo m with h/o OUD and cocaine dependence sniffs 7-7 bags daily, with repeated admissions for exqacerbation copd and bronchitis 2/2 substance use, occasionally smokes refusing rehab. no complaints, current detox regimend controlling withdrawal sx - History Source History Provided By: Patient, Medical Record, Caregiver Limitations to Obtaining History: No Limitations - Alcohol/Substance Use Hx Alcohol Use: No Hx Substance Use: Yes (heroin, cocaine) Hx Substance Use Treatment: Yes (multiple inpatient hospital detox) - Current Drug/Alcohol Use Heroin Route: Inhalation Frequency: Daily Amount used: 6-7 bags Date of Last Use: 06/15/17 Cocaine Route: Inhalation Frequency: Daily Amount used: small amounts Date of Last Use: 06/15/17 - Past Medical History Pulmonary: Yes: Asthma, COPD Psych: Yes: Addictions (heroin) - Past Surgical History Past Surgical History: Yes: None - Significant Medical Findings: 46 yo m with multiple hosptial admissions froo exacerbation cppd/asthma and broncitis 2/2 sniffinf heorin and cocaine. on methadone detox which he is toelrating well. COWS - Scale Resting Pulse: 0= [place] 80 or Below Sweatin= No chills or Flushing Restless Observation: 0= Sits Still Pupil Size: 0= Normal to Room Light Bone or Joint Aches: 1= Mild Discomfort Runny Nose/ Eye Tearin= Nasal Congestion GI Upset > 30mins: 0= None Tremor Observation: 0= None Yawning Observation: 0= None Anxiety or Irritability: 1=Feels Anxious/Irritable Goose Flesh Skin: 0=Smooth Skin COWS Score: 3 Assessment Plan - Diagnosis (1) Asthma exacerbation Status: Chronic Qualifiers: Asthma severity: moderate Asthma persistence: persistent Qualified Code(s ): J45.41 - Moderate persistent asthma with (acute) exacerbation (2) Acute respiratory failure with hypoxia and hypercarbia Status: Acute (3) Cocaine dependence, uncomplicated Status: Acute (4) Drug-induced mood disorder Status: Acute (5) Nicotine dependence Status: Acute Qualifiers: Nicotine product type: cigarettes Substance use status: in withdrawal Qualified Code(s): F17.213 - Nicotine dependence, cigarettes, with withdrawal (6) Upper respiratory infection Status: Acute Qualifiers: URI type: unspecified URI Qualified Code(s): J06.9 - Acute upper respiratory infection, unspecified (7) Acute exacerbation of chronic obstructive pulmonary disease (COPD) Status: Chronic (8) Opioid dependence with withdrawal Status: Chronic - Plan Plan: chart , imaging, labs reviewed. Patient examined and history taken, case discussed with medical team. REcommned: 1. complete methadone detox as ordered, fluids, vitamins 2. refere [facility] for aftercare, suboxone induction and MAT for OUD, counseling for cocaine dependence 3. nicotien dependence - smoking cessation counseling, refusing nicotien replacement therapy. 4. refusing inpatient rehab - can refer if willing... Corky Woodward MD [phone] - Medication Detox Regimen/Protocol: Methadone
[2017-06-17] MEDS ORDERED: ALBUTEROL SO4 0.083% IH SOL 2.5 MG/3 ML VIAL.NEB. NEB PRN (18:17)
[2017-06-17] MEDS ORDERED: ZOLPIDEM TARTRATE 5 MG TABLET PO PRN (18:20)
[2017-06-17] MEDS: methylPREDNISolone NA SUCC 40 MG/1 ML VIAL IVPUSH SCH (18:38)
[2017-06-17] MEDS ORDERED: METHADONE HCL 10 MG TABLET PO ONE ×2 (18:45→23:00)
[2017-06-17] MEDS ORDERED: THIAMINE HCL 100 MG TABLET (FP) PO SCH (22:00)
[2017-06-17] MEDS ORDERED: MONTELUKAST NA 10 MG TABLET PO SCH (22:00)
[2017-06-17] MEDS: diazePAM 5 MG TABLET PO PRN (22:43)
[2017-06-17] MEDS: HEPARIN NA (PORCINE) 5,000 UNITS/ML 1ML VIAL SQ SCH (22:44)
[2017-06-17] MEDS: cloNIDine HCL 0.1 MG TABLET PO SCH (22:44)
[2017-06-18 00:10] LABS: METHADONE, UR NEGATIVE ng/ml (CUTOFF=300); PHENCYCLIDINE,URINE NEGATIVE ng/ml (CUTOFF=25); URINE AMPHETAMINES NEGATIVE ng/ml (CUTOFF=500); URINE BARBITURATES NEGATIVE ng/ml (CUTOFF=200)
[2017-06-18 00:11] LABS: COCAINE, UR POSITIVE ng/ml (CUTOFF=300); URINE BENZODIAZEPINES POSITIVE ng/ml (CUTOFF=200)
[2017-06-18 00:13] LABS: OPIATES, URI POSITIVE ng/ml (CUTOFF=300)
[2017-06-18] MEDS ORDERED: methylPREDNISolone NA SUCC 40 MG/1 ML VIAL IVPUSH SCH (02:00)
[2017-06-18] MEDS: methylPREDNISolone NA SUCC 40 MG/1 ML VIAL IVPUSH SCH ×2 (02:16→09:41)
[2017-06-18] MEDS: diazePAM 5 MG TABLET PO PRN ×2 (02:20→09:37)
[2017-06-18] MEDS: ALBUTEROL SO4 2.5/IPRATROPIUM 0.5 INH SOL 3 ML VIAL.NEB. NEB SCH ×2 (07:55→12:14)
[2017-06-18] MEDS ORDERED: PT OWN MED DRAWER 7, Y5N ONE ×2 (09:28→10:54)
[2017-06-18] MEDS: cloNIDine HCL 0.1 MG TABLET PO SCH (09:34)
[2017-06-18] MEDS: CEFTRIAXONE 1 G/50 ML PREMIX 50 ML IVPB SCH (09:34)
[2017-06-18] MEDS: HEPARIN NA (PORCINE) 5,000 UNITS/ML 1ML VIAL SQ SCH (09:35)
[2017-06-18] MEDS ORDERED: METHADONE HCL 10 MG TABLET PO ONE (10:00)
[2017-06-18] MEDS ORDERED: PRENATAL VITAMINS W/ FOLIC ACID TABLET (FP) PO SCH (10:00)
[2017-06-18] MEDS: AZITHROMYCIN IVPB 500 MG in DEXTROSE 5%-WATER - 250 ML IVPB SCH (12:32)
--- NOTE | 2017-06-18 14:42 | PN ---
Progress Note, Physician History of Present Illness: pulmonary alert,feeling better,less dyspneic. - Current Medication List Current Medications: Active Medications Albuterol Sulfate (Ventolin 0.083% Nebulizer Soln -) 1 amp NEB Q4H PRN PRN Reason: SHORT OF BREATH/WHEEZING Last Admin: 06/18/17 10:00 Dose: 1 amp Albuterol/Ipratropium (Duoneb -) 1 amp NEB RQID [facility] Last Admin: 06/18/17 12:14 Dose: Not Given Diazepam (Valium -) 10 mg PO Q4H PRN PRN Reason: WITHDRAWAL(CONT SUBST) Stop: 06/20/17 18:16 Last Admin: 06/18/17 09:37 Dose: 10 mg Heparin Sodium (Porcine) (Heparin -) 5,000 unit SQ BID [facility] Last Admin: 06/18/17 09:35 Dose: 5,000 unit Azithromycin 500 mg/ Dextrose 250 mls @ 250 mls/hr IVPB DAILY [facility] Last Admin: 06/18/17 12:32 Dose: 250 mls/hr CEFTRIAXONE 1 G/50 ML PREMIX (Ceftriaxone 1 Gm-D5w Bag) 50 mls @ 100 mls/hr IVPB DAILY [facility] Last Admin: 06/18/17 09:34 Dose: 100 mls/hr Dextrose/Sodium Chloride (D5-1/2ns -) 1,000 mls @ 75 mls/hr IV ASDIR [facility] Last Admin: 06/17/17 15:30 Dose: 75 mls/hr Methadone HCl (Dolophine -) 15 mg PO ONCE ONE Stop: 06/19/17 23:59 Methadone HCl (Dolophine -) 15 mg PO ONCE ONE Stop: 06/20/17 23:59 Methadone HCl (Dolophine -) 10 mg PO ONCE ONE Stop: 06/21/17 10:01 Methylprednisolone Sodium Succinate (Solu-Medrol -) 40 mg IVPUSH Q8H-IV [facility] Last Admin: 06/18/17 09:41 Dose: 40 mg Montelukast Sodium (Singulair -) 10 mg PO HS [facility] Last Admin: 06/17/17 22:44 Dose: 10 mg Multivit/Folic Acid/Iron ( Vitamins (Sjr) -) 1 tab PO DAILY [facility] Last Admin: 06/18/17 09:34 Dose: 1 tab Thiamine HCl (Vitamin B1 -) 100 mg PO HS [facility] Last Admin: 06/17/17 22:44 Dose: 100 mg Zolpidem Tartrate (Ambien -) 10 mg PO HS PRN PRN Reason: INSOMNIA - Objective Vital Signs: Vital Signs Temperature 97.7 F 06/18/17 06:00 Pulse Rate 92 H 06/18/17 10:00 Respiratory Rate 18 06/18/17 10:00 Blood Pressure 126/78 06/18/17 10:00 O2 Sat by Pulse Oximetry (%) 97 06/18/17 10:00 Constitutional: Yes: Well Nourished, Calm Eyes: Yes: WNL HENT: Yes: WNL Neck: Yes: WNL Cardiovascular: Yes: Regular Rate and Rhythm, S1, S2 Respiratory: Yes: Wheezes (scattered bunny wheezes) Gastrointestinal: Yes: Normal Bowel Sounds, Soft Extremities: Yes: WNL Edema: No Labs: CBC, BMP Assessment/Plan Problem List - Problems (1) Asthma exacerbation Code(s): J45.901 - UNSPECIFIED ASTHMA WITH (ACUTE) EXACERBATION Qualifiers: Asthma severity: moderate Asthma persistence: persistent Qualified Code(s ): J45.41 - Moderate persistent asthma with (acute) exacerbation (2) Cocaine dependence, uncomplicated Code(s): F14.20 - COCAINE DEPENDENCE, UNCOMPLICATED (3) Heroin abuse Code(s): F11.10 - OPIOID ABUSE, UNCOMPLICATED (4) Nicotine dependence Code(s): F17.200 - NICOTINE DEPENDENCE, UNSPECIFIED, UNCOMPLICATED Qualifiers: Nicotine product type: cigarettes Substance use status: in withdrawal Qualified Code(s): F17.213 - Nicotine dependence, cigarettes, with withdrawal Assessment/Plan Acute Asthma Exacerbation Cocaine Abuse Heroin Abuse Smoker Noncompliance - inhaled bronchodilators - singulair - encouraged compliance with maintenance inhalers - cocaine/heroin/tobacco cessation - DVT prophylaxis - pt wants to sigh out AMA,strongly advised that he requires inpatient care iv steroids,bronchodilators, will not change his mind states that he want to go home. DR THOMPSON
[2017-06-18 14:48] VITALS: BP 111/70; PULSE 97; TEMP 98
[2017-06-19] MEDS ORDERED: METHADONE HCL 5 MG TABLET PO ONE (10:00)
[2017-06-20] MEDS ORDERED: METHADONE HCL 5 MG TABLET PO ONE (10:00)
--- NOTE | 2017-06-21 09:35 | DS ---
Physical Examination Vital Signs: Vital Signs Temperature 98.0 F 06/18/17 14:47 Pulse Rate 97 H 06/18/17 14:47 Respiratory Rate 18 06/18/17 14:47 Blood Pressure 111/70 06/18/17 14:47 O2 Sat by Pulse Oximetry (%) 97 06/18/17 10:00 Labs: CBC, BMP 06/16/17 18:40 06/16/17 18:40 Discharge Summary Reason For Visit: EXACERBATION OF ASTHMA - Instructions Referrals: Eric Yanez MD [Primary Care Provider] - Disposition: AGAINST MEDICAL ADVICE - Home Medications Comprehensive Discharge Medication List: Ambulatory Orders NK [No Known Home Medication] 06/16/17
[2017-06-21] MEDS ORDERED: METHADONE HCL 10 MG TABLET PO ONE (10:00)
[2017-06-22] MEDS ORDERED: METHADONE HCL 5 MG TABLET PO ONE (06:00)
== END 2017-06-18 14:51 | disposition left against medical advice (07) | DRG 140 ==
LOC: JERFT 16:10 → JERBED 06-17 06:12 → J5S 06-17 11:14 → OBSVTOIN 06-17 13:33
PROVIDERS: ADMIT Internal Medicine; ATTEND Internal Medicine
PROC: HZ2ZZZZ Detoxification Services for Substance Abuse Treatment (ICD-10-PCS; principal; 2017-06-18)
DX: J44.1 Chronic obstructive pulmonary disease with (acute) exacerbation (principal); J45.41 Moderate persistent asthma with (acute) exacerbation; F17.200 Nicotine dependence, unspecified, uncomplicated; Z91.19 Patient's noncompliance with other medical treatment and regimen; F11.23 Opioid dependence with withdrawal; F14.20 Cocaine dependence, uncomplicated; D72.828 Other elevated white blood cell count; F19.94 Other psychoactive substance use, unspecified with psychoactive substance-induced mood disorder; J06.9 Acute upper respiratory infection, unspecified
CPT/HCPCS: 36415; 71046-TC-FY; 80053; 80307; 85025; 93005; 93010; 94640; 99285-25; G0378; J0735; J1644

== ENCOUNTER 2017-08-01 15:35 | Emergency (ER) | payer OTHER ==
[2017-08-01 16:02] VITALS: BMI 28.1
[2017-08-01] MEDS ORDERED: ALBUTEROL SO4 2.5/IPRATROPIUM 0.5 INH SOL 3 ML VIAL.NEB. NEB ONE ×2 (16:10→16:32)
--- NOTE | 2017-08-01 18:32 | PDOC ---
Attending Attestation - Resident Resident Name: Tani Bell - ED Attending Attestation I have performed the following: I have examined & evaluated the patient, The case was reviewed & discussed with the resident, I agree w/resident's findings & plan, Exceptions are as noted - HPI HPI: 08/01/17 18:30 The patient is a 46 year old male, with a significant past medical history of asthma (multiple hospitalizations, no intubations), PSA (heroin, cocaine, benzos ), frequent ED visits for asthma exacerbations in the context of smoking heroin , who presents to the emergency department with shortness of breath since earlier today. The patient reports he became sob and started wheezing. At the time patient reports taking 2 puffs of his Albuterol with minimal relief of symptoms, and EMS was activated. When EMS arrived on scene, patient was given 3 Duonebs, 2 mg of Magnesium, and 10 mg of Decadron with mild improvement. Patient admits to smoking heroin today. He denies any fever, chills, or cough. He denies any chest pain, diaphoresis, palpitations, or lower extremity edema. He denies any abdominal pain, nausea, or vomiting. No recent travel or sick contacts. - Physicial Exam PE: 08/01/17 18:31 "GENERAL: Awake, alert, and fully oriented, in no acute distress. HEAD: No signs of trauma EYES: PERRLA, EOMI, sclera anicteric, conjunctiva clear ENT: Auricles normal inspection, hearing grossly normal, nares patent, oropharynx clear without exudates. Moist mucosa NECK: Nontender, no stepoffs, Normal ROM, supple, no lymphadenopathy, JVD, or masses LUNGS: + mild expiratory wheezing, no crackles HEART: Regular rate and rhythm, normal S1 and S2, no murmurs, rubs or gallops ABDOMEN: Soft, nontender, normoactive bowel sounds. No guarding, no rebound. No masses EXTREMITIES: Normal range of motion, no edema. No clubbing or cyanosis. No cords, erythema, or tenderness NEUROLOGICAL: Cranial nerves II through XII intact. 5/5 strength and sensation in all extremities, Normal speech, normal gait, normal cerebellar function SKIN: Warm, Dry, normal turgor, no rashes or lesions noted. " - Medical Decision Making 08/01/17 18:00 46 M with asthma presenting with SOB, wheezing on exam. Vitals stable at this time. Pt improving with nebs and steroids. - CXR - Continue nebulizers - Reassess 08/01/17 18:34 Pt reassessed s/p nebulizers - reports resolution of SOB. CXR clear. Lung exam with no wheezes at this time. Pt is well appearing, with normal vitals. Clinically stable for DC at this time. I discussed the physical exam findings, ancillary test results and final diagnoses with the patient. I answered all of the patient's questions. The patient was satisfied with the care received and felt comfortable with the discharge plan and treatment plan. The patient agrees to follow up with the primary care physician within 24-72 hours.
--- NOTE | 2017-08-01 18:35 | PDOC ---
History of Present Illness - General Chief Complaint: Shortness of Breath Stated Complaint: SHORTNESS OF BREATH Time Seen by Provider: 08/01/17 16:06 - History of Present Illness Initial Comments: 08/01/17 18:35 46m with pmh of asthma (multiple hospitalizations, no intubations), Polysubstance abuse (heroin, cocaine, benzos), who presents to the emergency department with shortness of breath since noon. The patient reports his usual symptoms of sob and wheezing. At the time patient reports taking 2 puffs of his Albuterol with minimal relief of symptoms, and EMS was activated. When EMS arrived on scene, patient was given 3 Duonebs, 2 mg of Magnesium, and 10 mg of Decadron with mild improvement. Patient admits to smoking. He denies any fever, chills, or cough. He denies any chest pain, diaphoresis, palpitations, or lower extremity edema. He denies any abdominal pain, nausea, or vomiting. No recent travel or sick contacts. Past History - Past Medical History Allergies/Adverse Reactions: Allergies Allergy/AdvReac Type Severity Reaction Status Date / Time No Known Allergies Allergy Verified 08/01/17 16:02 Home Medications: Ambulatory Orders Albuterol Sulfate Inhaler - [Ventolin Hfa Inhaler -] 1 - 2 inh PO QID PRN Methylprednisolone [Medrol Dose Sunny] 4 mg PO ASDIR #21 tablet 08/01/17 Anemia: No Asthma: Yes Cancer: No Cardiac Disorders: No CVA: No COPD: No CHF: No Dementia: No Diabetes: No GI Disorders: No Disorders: No HTN: No Hypercholesterolemia: No Kidney Stones: No Liver Disease: No Seizures: No Thyroid Disease: No (heroin abuse) Other medical history: h/o heroin abuse - Surgical History Abdominal Surgery: No Appendectomy: No Cardiac Surgery: No Cholecystectomy: No Lung Surgery: No Neurologic Surgery: No Orthopedic Surgery: No - Reproductive History Testicular Surgery: No - Immunization History Td Vaccination: Yes Immunization Up to Date: Yes - Suicide/Smoking/Psychosocial Hx Smoking Status: Yes Smoking History: Current every day smoker Years of Tobacco Use: 40 Have you smoked in the past 12 months: Yes Number of Cigarettes Smoked Daily: 2 If you are a former smoker, when did you quit?: 2014 Cigars Per Day: 0 Information on smoking cessation initiated: No 'Breaking Loose' booklet given: 06/05/17 Hx Alcohol Use: No Drug/Substance Use Hx: Yes (heroin, last taken this am) Substance Use Type: Cocaine, Heroin Hx Substance Use Treatment: Yes Respiratory Specific PMHX - Complaint Specific PMHX TB (Tuberculosis): No Review of Systems - Review of Systems Able to Perform ROS?: Yes Is the patient limited Danish proficient: No Constitutional: No: Symptoms Reported HEENTM: No: Symptoms Reported Respiratory: Yes: See HPI Cardiac (ROS): No: Symptoms Reported ABD/GI: No: Symptoms Reported : No: Symptoms Reported Musculoskeletal: No: Symptoms Reported All Other Systems: Reviewed and Negative *Physical Exam - Vital Signs Last Vital Signs Temp Pulse Resp BP Pulse Ox 97.7 F 88 20 130/78 95 08/01/17 15:57 08/01/17 15:57 08/01/17 15:57 08/01/17 15:57 08/01/17 16:12 - Physical Exam Comments: 08/01/17 18:37 GENERAL: Awake, alert, and fully oriented, in no acute distress. HEAD: No signs of trauma EYES: PERRLA, EOMI, sclera anicteric, conjunctiva clear ENT: Auricles normal inspection, hearing grossly normal, nares patent, oropharynx clear without exudates. Moist mucosa NECK: Nontender, no stepoffs, Normal ROM, supple, no lymphadenopathy, JVD, or masses LUNGS: + mild expiratory wheezing, no crackles HEART: Regular rate and rhythm, normal S1 and S2, no murmurs, rubs or gallops ABDOMEN: Soft, nontender, normoactive bowel sounds. No guarding, no rebound. No masses EXTREMITIES: Normal range of motion, no edema. No clubbing or cyanosis. No cords, erythema, or tenderness NEUROLOGICAL: Cranial nerves II through XII intact. 5/5 strength and sensation in all extremities, Normal speech, normal gait, normal cerebellar function SKIN: Warm, Dry, normal turgor, no rashes or lesions noted. " ED Treatment Course - RADIOLOGY Radiology Studies Ordered: Category Date Time Status CHEST PA & LAT [RAD] Stat Radiology 08/01/17 16:10 Completed - Medications Given in the ED: ED Medications Discontinued Medications Generic Name Dose Route Start Last Admin Trade Name Freq PRN Reason Stop Dose Admin Albuterol/Ipratropium 1 amp 08/01/17 16:10 08/01/17 16:15 Duoneb - NEB 08/01/17 16:11 1 amp ONCE ONE Administration Medical Decision Making - Medical Decision Making 08/01/17 18:38 46 M with asthma presenting with SOB, wheezing on exam. Vitals stable at this time. Pt improving with nebs and steroids. - CXR - Continue nebulizers - Reassess 08/01/17 18:34 Pt reassessed s/p nebulizers - reports resolution of SOB. CXR clear. Lung exam with no wheezes at this time. Pt is well appearing, with normal vitals. Clinically stable for DC at this time. *DC/Admit/Observation/Transfer Diagnosis at time of Disposition: Asthma exacerbation - Discharge Dispostion Disposition: HOME Condition at time of disposition: Improved Admit: No - Referrals Referrals: Eric Yanez MD [Primary Care Provider] - - Patient Instructions Printed Discharge Instructions: Diet High in Fruits and Vegetables May Reduce Asthma Exacerbations Additional Instructions: Come back to the Emergency department for any new, worsening or concerning symptom. Follow up with your primary doctor within the next 2-3 days. - Post Discharge Activity
[2017-08-01 18:44] VITALS: TEMP 98.3
[2017-08-01 19:36] VITALS: BP 144/82; PULSE 88
== END 2017-08-01 21:40 | disposition home or self-care (01) ==
LOC: JER 15:35
PROC: 3E0F7GC Introduction of Other Therapeutic Substance into Respiratory Tract, Via Natural or Artificial Opening (ICD-10-PCS; principal; 2017-08-01)
DX: J45.41 Moderate persistent asthma with (acute) exacerbation (principal); F19.90 Other psychoactive substance use, unspecified, uncomplicated; F17.210 Nicotine dependence, cigarettes, uncomplicated
CPT/HCPCS: 71046-TC-FY; 94640; 99285-25

== ENCOUNTER 2017-08-02 10:00 | Inpatient (IN) | payer OTHER ==
[2017-08-02 10:11] VITALS: BMI 28.1
--- NOTE | 2017-08-02 10:12 | PDOC ---
History of Present Illness - General Chief Complaint: Asthma Stated Complaint: ASTHMA Time Seen by Provider: 08/02/17 10:03 History Source: Patient Exam Limitations: No Limitations - History of Present Illness Initial Comments: 08/02/17 10:12 The patient is a 46M with a PMH of asthma and heroine abuse who presents to the ER complaining of shortness of breath. The patient states that he was snorting heroine around 0300 last night then felt short of breath. He then fell asleep, woke up this morning and was going about his normal routine. He felt short of breath as he was getting his morning coffee, then used his inhaler twice with no relief. He is taking his steroids that he was prescribed. He has never been intubated but states he's been hospitalized before. He denies CP, fever, chills , nausea, vomiting, abd pain. Past History - Past Medical History Allergies/Adverse Reactions: Allergies Allergy/AdvReac Type Severity Reaction Status Date / Time No Known Allergies Allergy Verified 08/02/17 10:08 Home Medications: Ambulatory Orders Albuterol Sulfate Inhaler - [Ventolin Hfa Inhaler -] 1 - 2 inh PO QID PRN Methylprednisolone [Medrol Dose Sunny] 4 mg PO ASDIR #21 tablet 08/01/17 Anemia: No Asthma: Yes Cancer: No Cardiac Disorders: No CVA: No COPD: No CHF: No Dementia: No Diabetes: No GI Disorders: No Disorders: No HTN: No Hypercholesterolemia: No Kidney Stones: No Liver Disease: No Seizures: No Thyroid Disease: No (heroin abuse) - Surgical History Abdominal Surgery: No Appendectomy: No Cardiac Surgery: No Cholecystectomy: No Lung Surgery: No Neurologic Surgery: No Orthopedic Surgery: No - Reproductive History Testicular Surgery: No - Immunization History Td Vaccination: Yes Immunization Up to Date: Yes - Suicide/Smoking/Psychosocial Hx Smoking Status: Yes Smoking History: Current every day smoker Years of Tobacco Use: 40 Have you smoked in the past 12 months: Yes Number of Cigarettes Smoked Daily: 4 If you are a former smoker, when did you quit?: 2015 Cigars Per Day: 0 Information on smoking cessation initiated: No 'Breaking Loose' booklet given: 06/05/17 Hx Alcohol Use: No Drug/Substance Use Hx: Yes Substance Use Type: Heroin Hx Substance Use Treatment: Yes Review of Systems - Review of Systems Able to Perform ROS?: Yes Comments:: 08/02/17 10:48 GENERAL/CONSTITUTIONAL: No fever or chills. No weakness. HEAD, EYES, EARS, NOSE AND THROAT: No change in vision. No ear pain or discharge. No sore throat. CARDIOVASCULAR: No chest pain, palpitations, or lightheadedness. RESPIRATORY: Positive for SOB and wheezing. No cough or hemoptysis. GASTROINTESTINAL: No nausea, vomiting, diarrhea, constipation, or abdominal pain. GENITOURINARY: No dysuria, frequency, hematuria, or change in urination. MUSCULOSKELETAL: No joint or muscle swelling or pain. No neck or back pain. SKIN: No rash or lesions. NEUROLOGIC: No headache, numbness, tingling, weakness, loss of consciousness, or change in strength/sensation. ENDOCRINE: No increased thirst. No abnormal weight change. HEMATOLOGIC/LYMPHATIC: No anemia, easy bleeding, or history of blood clots. ALLERGIC/IMMUNOLOGIC: No hives or skin allergy. Is the patient limited Romanian proficient: No *Physical Exam - Vital Signs Last Vital Signs Temp Pulse Resp BP Pulse Ox 97.6 F 121 H 22 144/87 97 08/02/17 10:08 08/02/17 10:08 08/02/17 10:08 08/02/17 10:08 08/02/17 10:08 - Physical Exam Comments: 08/02/17 10:48 GENERAL: Well developed, well nourished. Awake and alert. No acute distress. HEENT: Normocephalic, atraumatic. Hearing grossly normal. Moist mucous membranes. PERRLA, EOMI. No conjunctival pallor. Sclera are non-icteric. NECK: Supple. Full ROM. No JVD. CARDIOVASCULAR: Regular rate and rhythm. No murmurs, rubs, or gallops. PULMONARY: No evidence of respiratory distress. Diffuse expiratory wheezing with increased expiratory phase. ABDOMINAL: Soft. Non-tender. Non-distended. No rebound or guarding. No organomegaly. Normoactive bowel sounds. GENITOURINARY: No CVA tenderness bilaterally. MUSCULOSKELETAL: Normal range of motion at all joints. No bony deformities or tenderness. EXTREMITIES: No cyanosis. No clubbing. No edema. No calf tenderness. SKIN: Warm and dry. Normal capillary refill. No rashes. No jaundice. NEUROLOGICAL: Alert, awake, appropriate. Cranial nerves 2-12 intact. Normal speech. Gait is normal without ataxia. PSYCHIATRIC: Cooperative. Good eye contact. Appropriate mood and affect. Heart Score/ECG Review #1 General ECG Interpretation: Sinus Rhythm, Normal Rate, Normal Intervals, No acute ischemic changes Compared to previous ECG there are: Changes noted 08/02/17 10:50 Sinus tach 104 NM 160 QRS 84 QTc 460 No acute ischemic changes noted. No BEHZAD or STD noted. Medical Decision Making - Medical Decision Making 08/02/17 10:51 The patient is a 46M with a PMH of asthma and heroine abuse who presents to the ER with shortness of breath. Pt states he uses 5-6 bags of heroine by snorting it per day. He says his last use was at 0300 when he woke up then felt short of breath afterwards. Will give duonebs and reassess. 08/02/17 11:30 Pt states he feels a little better after the duoneb treatments but was SOB as he was walking. Will give mag and reassess. 08/02/17 14:11 Pt is still diffusely wheezy. Will page Dr. Diaz for admission under Dr. Yanez. 08/02/17 14:35 Pt admitted. *DC/Admit/Observation/Transfer Diagnosis at time of Disposition: Asthma exacerbation Qualifiers: Asthma severity: mild Asthma persistence: persistent Qualified Code(s): J45.31 - Mild persistent asthma with (acute) exacerbation - Discharge Dispostion Condition at time of disposition: Stable Admit: Yes - Referrals Referrals: Eric Yanez MD [Primary Care Provider] - - Patient Instructions - Post Discharge Activity
[2017-08-02] MEDS: ALBUTEROL SO4 2.5/IPRATROPIUM 0.5 INH SOL 3 ML VIAL.NEB. NEB ONE ×2 (10:15→11:55)
--- NOTE | 2017-08-02 10:23 | PDOC ---
Attending Attestation - Resident Resident Name: JejackJose - ED Attending Attestation I have performed the following: I have examined & evaluated the patient, The case was reviewed & discussed with the resident, I agree w/resident's findings & plan, Exceptions are as noted - HPI HPI: 08/02/17 10:16 46y M hx asthma (hospitalization, no intubations), heroin abuse, presents with sob since this morning. Tried inhaler without success. No fever/chills, cough, hemoptysis, le edema. pt was here yeserday wit hneg xray and started on steroids /nebs lungs moderate wheezing bilaterally no acute respirtory distress or increase work of breathing speaking complete sentences no LE edema pts HR was noted eelvated at 121 initially but is currently normal suspect asthma excacerbation will give a neb and will reassess pt only using his nebs occasionally when needed. (2x yesterday) - Physicial Exam PE: 08/09/17 09:17 see above - Medical Decision Making 08/02/17 14:16 labs reviewed, cxr reviewed pt feeling slightly better, but still sob when ambulating will place pt in observation for management of asthma exacerbation Heart Score/ECG Review - ECG Impressions Comment:: 08/02/17 10:45 Twelve-lead EKG was performed and reviewed by me. There is normal sinus rhythm with a rate of 104 The axis is normal. The intervals are normal. There is normal R wave progression There are no ST or T wave abnormalities. Impression: sinus tachycardia
--- NOTE | 2017-08-02 11:24 | EKG ---
Test Reason : Blood Pressure : / mmHG Vent. Rate : 104 BPM Atrial Rate : 104 BPM P-R Int : 160 ms QRS Dur : 084 ms QT Int : 350 ms P-R-T Axes : 033 010 034 degrees QTc Int : 460 ms SINUS TACHYCARDIA OTHERWISE NORMAL ECG WHEN COMPARED WITH ECG OF 18-JUL-2017 17:17, NO SIGNIFICANT CHANGE WAS FOUND Confirmed by TREVOR LUNDBERG MD ([id number]) on 08/02/2017 11:24:26 AM Referred By: Confirmed By:TREVOR LUNDBERG MD
[2017-08-02] MEDS: MAGNESIUM SULF 50% (8.12 MEQ/2 ML-1 GM VIAL) IVPB ONE ×2 (11:55→12:26)
[2017-08-02 15:06] LABS: BASO % 0.8 % (0-2.0); EOS % 0.2 % (0-4.5); HEMATOCRIT 37.5 % (35.4-49); HEMOGLOBIN 12.5 GM/dL (11.7-16.9); LYMPH % 13.7 % (8-40); MCH 26.3 pg (25.7-33.7); MCHC 33.3 g/dl (32.0-35.9); MEAN PLT VOLUME 7.5 fl (7.5-11.1); MONO % 6.5 % (3.8-10.2); NEUT % 78.8 % (42.8-82.8); PLATELET COUNT 303 K/MM3 (134-434); RBC 4.75 M/mm3 (4.00-5.60); RDW 17.2 % (11.9-15.9); WHITE BLOOD COUNT 11.2 K/mm3 (4.0-10.0)
[2017-08-02 15:35] LABS: ALBUMIN 3.5 g/dl (3.4-5.0); ALK PHOS 74 U/L (45-117); ANION GAP 9 (8-16); BILIRUBIN,TOTAL 0.4 mg/dL (0.2-1.0); BLOOD UREA NITROGEN 10 mg/dL (7-18); CHLORIDE 108 mmol/L (98-107); CO2 25 mmol/L (21-32); CREATININE 0.7 mg/dL (0.7-1.3); GLUCOSE,RANDOM 117 mg/dL (74-106); POTASSIUM 4.3 mmol/L (3.5-5.1); SGOT/AST 10 U/L (15-37); SGPT/ALT 18 U/L (12-78); SODIUM 142 mmol/L (136-145); TOT PROT 6.6 g/dl (6.4-8.2)
--- NOTE | 2017-08-02 18:06 | CONSULT ---
Consult Detox [facility] Reason for Current Admission/Consult: substance use Referred by:: Flavia Diaz - History History of Present Illness: 46 yo m admitted with exacerbation copd/asthm after smiffing heroin and cociane , reports daily benzodiazepine use requesting inpateint detox from benzos and opioids while hospitalized. denies alcohol use well known to team, refusing rehab at this [facility]. c/oheorin an benzodiazpine withdrwal sx - History Source History Provided By: Patient, Medical Record, Caregiver Limitations to Obtaining History: No Limitations - Alcohol/Substance Use Hx Alcohol Use: No Hx Substance Use: Yes (heroin and cociaine) Hx Substance Use Treatment: Yes (inpatient hosptil detox multiple times) - Past Medical History Pulmonary: Yes: Asthma, COPD Psych: Yes: Addictions (heroin) - Past Surgical History Past Surgical History: Yes: None - Significant Medical Findings: 46 yo m with repeated admissions for exacerbation of asthm/copd from sniffinf cociaen and heroin reproting benzodiazepine and heroin withdrwal sx medically stable. COWS - Scale Resting Pulse: 1= AK 81-100 Sweatin= Chills/Flushing Restless Observation: 1= Difficult to Sit Still Pupil Size: 1= Pupils >than Normal Bone or Joint Aches: 1= Mild Discomfort Runny Nose/ Eye Tearin= Nasal Congestion GI Upset > 30mins: 2= Nausea/Diarrhea Tremor Observation: 2= Slight Tremor Visible Yawning Observation: 1= 1-2x During Session Anxiety or Irritability: 2=Irritable/Anxious Goose Flesh Skin: 0=Smooth Skin COWS Score: 13 CIWA Score - CIWA Score Nausea/Vomitin-Mild Nausea/No Vomiting Muscle Tremors: 3 Anxiety: 3 Agitation: 3 Paroxysmal Sweats: 1-Minimal Palms Moist Orientation: 0-Oriented Tacttile Disturbances: 0-None Auditory Disturbances: 0-None Visual Disturbances: 0-None Headache: 0-None Present CIWA-Ar Total Score: 11 Assessment Plan - Diagnosis (1) Acute exacerbation of chronic obstructive pulmonary disease (COPD) Status: Acute (2) Asthma exacerbation Status: Acute Qualifiers: Asthma severity: mild Asthma persistence: persistent Qualified Code(s): J45.31 - Mild persistent asthma with (acute) exacerbation (3) Cocaine dependence, uncomplicated Status: Acute (4) Drug-induced mood disorder Status: Acute (5) Nicotine dependence Status: Acute Qualifiers: Nicotine product type: cigarettes Substance use status: in withdrawal Qualified Code(s): F17.213 - Nicotine dependence, cigarettes, with withdrawal (6) Opioid dependence with withdrawal Status: Acute (7) Sedative, hypnotic or anxiolytic dependence, uncomplicated Status: Acute - Plan Plan: chart, imagina, and labs reviewed. patient examined adn history taken. discussed care with medical team. REcommendL 1. methadone detox for heorin use disorder, severe w withdrawwal sx 2. benzodiazepein detox with valium for benzodiazepien dependence severe with withdrwal sx 3. refer to rehab for after care if he completes detox. fluids, mvi as ordered. Corky Limon MD [phone] - Medication Detox Regimen/Protocol: Methadone/Valium
[2017-08-02] MEDS ORDERED: METHADONE HCL 10 MG TABLET PO ONE ×2 (18:15→23:00)
[2017-08-02] MEDS: diazePAM 5 MG TABLET PO PRN ×2 (19:16→23:58)
[2017-08-02] MEDS ORDERED: THIAMINE HCL 100 MG TABLET (FP) PO SCH (22:00)
--- NOTE | 2017-08-03 02:26 | HP ---
Admitting History and Physical - Admission History of Present Illness: 46 y/o m w/ h/o asthma , heroin abuse, presented with sob since the morning. His albuterol inh and steroid nebs has not relieved symptoms. pt was here yesterday w/ neg xray and was started on steroids/nebs. Pt still without relieve of symptoms. Denies recent infections, recent travel. No cp, pp. No fever or chills. no n/v/d/c. - Past Medical History Pulmonary: Yes: Asthma, COPD Psych: Yes: Addictions (heroin) - Past Surgical History Past Surgical History: Yes: None - Smoking History Smoking history: Current every day smoker Have you smoked in the past 12 months: Yes Aproximately how many cigarettes per day: 4 If you are a former smoker, when did you quit?: 2014 - Alcohol/Substance Use Hx Alcohol Use: No History of Substance Use: reports: Heroin - Social History ADL: Independent Occupation: Unemployed History of Recent Travel: No Home Medications - Allergies Allergies/Adverse Reactions: Allergies Allergy/AdvReac Type Severity Reaction Status Date / Time No Known Allergies Allergy Verified 08/23/17 11:34 - Home Medications Home Medications: Ambulatory Orders Albuterol Sulfate Inhaler - [Ventolin Hfa Inhaler -] 1 - 2 inh PO QID PRN Budesonide/Formeterol Fumarate [SYMBICORT 80/4.5mcg -] 1 inh PO BID #1 cannister 08/23/17 predniSONE [Deltasone -] 40 mg PO DAILY #8 tablet 08/23/17 Family Disease History - Family Disease History Family Disease History: Diabetes: Mother, CA: Father (.) Physical Examination Vital Signs: Vital Signs Temperature 98.8 F 08/02/17 17:08 Pulse Rate 100 H 08/02/17 17:08 Respiratory Rate 20 08/02/17 17:08 Blood Pressure 120/66 08/02/17 17:08 O2 Sat by Pulse Oximetry (%) 98 08/02/17 17:00 HENT: Yes: WNL Neck: Yes: Trachea Midline Cardiovascular: Yes: Regular Rate and Rhythm Respiratory: Yes: Wheezes Gastrointestinal: Yes: Normal Bowel Sounds, Hemorrhoids Labs: CBC, BMP 08/02/17 15:00 08/02/17 15:00 Problem List - Problems (1) Acute exacerbation of chronic obstructive pulmonary disease (COPD) Code(s): J44.1 - CHRONIC OBSTRUCTIVE PULMONARY DISEASE W (ACUTE) EXACERBATION (2) Asthma exacerbation Code(s): J45.901 - UNSPECIFIED ASTHMA WITH (ACUTE) EXACERBATION Qualifiers: Asthma severity: unspecified severity Asthma persistence: unspecified Qualified Code(s): J45.901 - Unspecified asthma with (acute) exacerbation (3) Cocaine dependence, uncomplicated Code(s): F14.20 - COCAINE DEPENDENCE, UNCOMPLICATED (4) Drug-induced mood disorder Code(s): F19.94 - OTH PSYCHOACTIVE SUBSTANCE USE, UNSP W MOOD DISORDER (5) Nicotine dependence Code(s): F17.200 - NICOTINE DEPENDENCE, UNSPECIFIED, UNCOMPLICATED Qualifiers: Nicotine product type: cigarettes Substance use status: in withdrawal Qualified Code(s): F17.213 - Nicotine dependence, cigarettes, with withdrawal (6) Opioid dependence with withdrawal Code(s): 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 (7) Sedative, hypnotic or anxiolytic dependence, uncomplicated Code(s): F13.20 - SEDATIVE, HYPNOTIC OR ANXIOLYTIC DEPENDENCE, UNCOMPLICATED Assessment/Plan Acute exacerbation of chronic obstructive pulmonary disease (COPD)- solumedrol/ duoneb, O2 as needed Psych consult- drug detox
[2017-08-03] MEDS ORDERED: ALBUTEROL SO4 2.5/IPRATROPIUM 0.5 INH SOL 3 ML VIAL.NEB. NEB PRN (02:27)
[2017-08-03] MEDS ORDERED: DEXTROSE 5%-0.45% SALINE 1,000 ML IV SCH (02:30)
[2017-08-03] MEDS: diazePAM 5 MG TABLET PO PRN ×2 (05:12→12:23)
[2017-08-03 09:15] LABS: METHADONE, UR NEGATIVE ng/ml (CUTOFF=300); PHENCYCLIDINE,URINE NEGATIVE ng/ml (CUTOFF=25); URINE AMPHETAMINES NEGATIVE ng/ml (CUTOFF=500); URINE BARBITURATES NEGATIVE ng/ml (CUTOFF=200)
[2017-08-03] MEDS ORDERED: PT OWN MED DRAWER 7, Y5N ONE ×2 (09:15→10:39)
[2017-08-03 09:16] LABS: COCAINE, UR POSITIVE ng/ml (CUTOFF=300); OPIATES, URI POSITIVE ng/ml (CUTOFF=300); URINE BENZODIAZEPINES POSITIVE ng/ml (CUTOFF=200)
[2017-08-03] MEDS ORDERED: ENOXAPARIN NA (PORCINE) 40 MG/0.4 ML DISP.SYRIN SQ SCH (10:00)
[2017-08-03] MEDS ORDERED: PRENATAL VITAMINS W/ FOLIC ACID TABLET (FP) PO SCH (10:00)
[2017-08-03] MEDS ORDERED: METHADONE HCL 10 MG TABLET PO ONE (10:00)
[2017-08-03] MEDS ORDERED: methylPREDNISolone NA SUCC 40 MG/1 ML VIAL IVPUSH SCH ×3 (10:00→15:00)
--- NOTE | 2017-08-03 12:20 | CON.PULM ---
Consult Consult Specialty:: PULMONARY Referred by:: [facility] Reason for Consultation:: ASTHMA - History of Present Illness Chief Complaint: SOB/COUGH/WHEEZE History of Present Illness: The patient is a 46M with a PMH of asthma and heroine abuse who presents to the ER complaining of shortness of breath. The patient states that he was snorting heroine around 0300 last night then felt short of breath. He then fell asleep, woke up this morning and was going about his normal routine. He felt short of breath as he was getting his morning coffee, then used his inhaler twice with no relief. He is taking his steroids that he was prescribed. He has never been intubated but states he's been hospitalized before. He denies CP, fever, chills , nausea, vomiting, abd pain. 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 No: O2 Dependent Gastrointestinal: No: Ascites Hepatobiliary: No: Cirrhosis Renal/: No: Renal Failure Heme/Onc: No: Anemia Psych: Yes: Addictions (heroin) - Past Surgical History Past Surgical History: Yes: None - Alcohol/Substance Use Hx Alcohol Use: No History of Substance Use: reports: Heroin - Smoking History Smoking history: Current every day smoker Have you smoked in the past 12 months: Yes Aproximately how many cigarettes per day: 4 If you are a former smoker, when did you quit?: 2014 - Social History ADL: Independent Occupation: Unemployed Place of : [employer] [facility] History of Recent Travel: No Home Medications - Allergies Allergies/Adverse Reactions: Allergies Allergy/AdvReac Type Severity Reaction Status Date / Time No Known Allergies Allergy Verified 08/02/17 10:08 - Home Medications Home Medications: Ambulatory Orders Albuterol Sulfate Inhaler - [Ventolin Hfa Inhaler -] 1 - 2 inh PO QID PRN Methylprednisolone [Medrol Dose Sunny] 4 mg PO ASDIR #21 tablet 08/01/17 Family Disease History - Family Disease History Family Disease History: Diabetes: Mother, CA: Father (.) Review of Systems - Review of Systems Constitutional: denies: Fever Eyes: denies: Blurred Vision HENT: denies: Difficult Swallowing Neck: denies: Decreased ROM Cardiovascular: reports: Shortness of Breath. denies: Chest Pain Respiratory: reports: Cough, Exercise Intolerance, SOB, SOB on Exertion, Wheezing. denies: Hemoptysis Gastrointestinal: denies: Abdominal Pain Physical Exam Vital Sings: Vital Signs Temperature 97.7 F 08/03/17 06:00 Pulse Rate 85 08/03/17 06:00 Respiratory Rate 19 08/03/17 09:00 Blood Pressure 136/87 08/03/17 06:00 O2 Sat by Pulse Oximetry (%) 97 08/03/17 09:00 Constitutional: Yes: Calm Eyes: Yes: EOM Intact HENT: Yes: Normocephalic Neck: Yes: Trachea Midline Cardiovascular: Yes: Regular Rate and Rhythm Respiratory: Yes: Wheezes (BILATERAL DIFFUSE) Gastrointestinal: Yes: Normal Bowel Sounds Edema: No Neurological: Yes: Alert Labs: CBC, BMP 08/02/17 15:00 08/02/17 15:00 REST RTEVIEWED Imaging - Results Chest X-ray: Image Reviewed EKG: Report Reviewed Problem List - Problems (1) Heroin addiction Code(s): F11.20 - OPIOID DEPENDENCE, UNCOMPLICATED (2) Asthma exacerbation Code(s): J45.901 - UNSPECIFIED ASTHMA WITH (ACUTE) EXACERBATION Qualifiers: Asthma severity: mild Asthma persistence: persistent Qualified Code(s): J45.31 - Mild persistent asthma with (acute) exacerbation (3) Acute exacerbation of chronic obstructive pulmonary disease (COPD) Code(s): J44.1 - CHRONIC OBSTRUCTIVE PULMONARY DISEASE W (ACUTE) EXACERBATION (4) Nicotine dependence Code(s): F17.200 - NICOTINE DEPENDENCE, UNSPECIFIED, UNCOMPLICATED Qualifiers: Nicotine product type: cigarettes Substance use status: in withdrawal Qualified Code(s): F17.213 - Nicotine dependence, cigarettes, with withdrawal Assessment/Plan SOLUMEDROL/DUONEB QID/O2 PRN/HOLD ABS WILL MONITOR DAILY PEAK FLOW(260L/M TODAY) WOULD ORDER HEP C/B PROFILE AND HIV IF NOT DONE IN RECENT PAST R [facility]
[2017-08-03] MEDS: ALBUTEROL SO4 2.5/IPRATROPIUM 0.5 INH SOL 3 ML VIAL.NEB. NEB SCH ×2 (12:27→16:10)
[2017-08-03 15:04] VITALS: BP 120/74; PULSE 92; TEMP 97.8
[2017-08-03] MEDS ORDERED: diazePAM 5 MG TABLET PO PRN (15:31)
[2017-08-03] MEDS ORDERED: diazePAM 5 MG TABLET PO ONE (15:31)
[2017-08-03] MEDS ORDERED: diazePAM 5 MG TABLET PO SCH (22:00)
[2017-08-04] MEDS ORDERED: METHADONE HCL 5 MG TABLET PO ONE (10:00)
[2017-08-05] MEDS ORDERED: METHADONE HCL 5 MG TABLET PO ONE (10:00)
[2017-08-05] MEDS ORDERED: diazePAM 5 MG TABLET PO SCH (10:00)
--- NOTE | 2017-08-05 21:36 | DS ---
Physical Examination Vital Signs: Vital Signs Temperature 97.8 F 08/03/17 15:01 Pulse Rate 92 H 08/03/17 15:01 Respiratory Rate 20 08/03/17 17:00 Blood Pressure 120/74 08/03/17 15:01 O2 Sat by Pulse Oximetry (%) 97 08/03/17 17:00 Constitutional: Yes: No Distress Cardiovascular: Yes: Regular Rate and Rhythm Respiratory: Yes: Regular Gastrointestinal: Yes: Normal Bowel Sounds, Soft Labs: CBC, BMP 08/02/17 15:00 08/02/17 15:00 Discharge Summary Reason For Visit: EXACERBATION OF ASTHMA (1) Acute exacerbation of chronic obstructive pulmonary disease (COPD) (2) Asthma exacerbation (3) Cocaine dependence, uncomplicated (4) Drug-induced mood disorder (5) Nicotine dependence (6) Opioid dependence with withdrawal (7) Sedative, hypnotic or anxiolytic dependence, uncomplicated Hospital Course: 46 y/o m w/ h/o asthma , heroin abuse, presented with sob since the morning of ED visit. He was treated for COPD exacerbation. He improved significantly, yet detox f/u as out pt is needed and he left against medical advise. Condition: Stable - Instructions Referrals: Eric Yanez MD [Primary Care Provider] - Disposition: AGAINST MEDICAL ADVICE - Home Medications Comprehensive Discharge Medication List: Ambulatory Orders Albuterol Sulfate Inhaler - [Ventolin Hfa Inhaler -] 1 - 2 inh PO QID PRN Methylprednisolone [Medrol Dose Sunny] 4 mg PO ASDIR #21 tablet 08/01/17
[2017-08-06] MEDS ORDERED: METHADONE HCL 10 MG TABLET PO ONE (10:00)
[2017-08-07] MEDS ORDERED: METHADONE HCL 5 MG TABLET PO ONE (06:00)
[2017-08-07] MEDS ORDERED: diazePAM 5 MG TABLET PO SCH (10:00)
== END 2017-08-03 18:41 | disposition left against medical advice (07) | DRG 140 ==
LOC: JER 10:00 → JERBED 14:36 → J5S 16:51 → OBSVTOIN 08-03 02:27
PROVIDERS: ADMIT Internal Medicine; ATTEND Internal Medicine
PROC: HZ2ZZZZ Detoxification Services for Substance Abuse Treatment (ICD-10-PCS; principal; 2017-08-02)
DX: J44.1 Chronic obstructive pulmonary disease with (acute) exacerbation (principal); J45.31 Mild persistent asthma with (acute) exacerbation; F13.20 Sedative, hypnotic or anxiolytic dependence, uncomplicated; F17.210 Nicotine dependence, cigarettes, uncomplicated; F14.10 Cocaine abuse, uncomplicated; F11.23 Opioid dependence with withdrawal
CPT/HCPCS: 36415; 71046-TC-FY; 80053; 80307; 85025; 93005; 93010; 94150; 94640; 99283-25; G0378; J7620

== ENCOUNTER 2017-08-23 11:29 | Emergency (ER) | payer OTHER ==
--- NOTE | 2017-08-23 11:33 | PDOC ---
History of Present Illness - General Chief Complaint: Asthma Stated Complaint: ASTHMA ATTACK Time Seen by Provider: 08/23/17 11:33 History Source: Patient Exam Limitations: No Limitations - History of Present Illness Initial Comments: 46 yo M history asthma, substance abuse presents with abrupt onset SOB and wheezing. He states that he was away from home for an extended period of time, walking from bus, walking up stairs, and did not have his inhaler. He is able to ambulate and speak full sentences. +Dry cough and wheezing. Past History - Past Medical History Allergies/Adverse Reactions: Allergies Allergy/AdvReac Type Severity Reaction Status Date / Time No Known Allergies Allergy Verified 08/23/17 11:34 Home Medications: Ambulatory Orders Albuterol Sulfate Inhaler - [Ventolin Hfa Inhaler -] 1 - 2 inh PO QID PRN Budesonide/Formeterol Fumarate [SYMBICORT 80/4.5mcg -] 1 inh PO BID #1 cannister 08/23/17 predniSONE [Deltasone -] 40 mg PO DAILY #8 tablet 08/23/17 Anemia: No Asthma: Yes Cancer: No Cardiac Disorders: No CVA: No COPD: No CHF: No Dementia: No Diabetes: No GI Disorders: No Disorders: No HTN: No Hypercholesterolemia: No Kidney Stones: No Liver Disease: No Seizures: No Thyroid Disease: No - Surgical History Abdominal Surgery: No Appendectomy: No Cardiac Surgery: No Cholecystectomy: No Lung Surgery: No Neurologic Surgery: No Orthopedic Surgery: No - Reproductive History Testicular Surgery: No - Immunization History Td Vaccination: Yes Immunization Up to Date: Yes - Suicide/Smoking/Psychosocial Hx Smoking Status: Yes Smoking History: Current every day smoker Years of Tobacco Use: 40 Have you smoked in the past 12 months: Yes Number of Cigarettes Smoked Daily: 4 If you are a former smoker, when did you quit?: 2015 Cigars Per Day: 0 'Breaking Loose' booklet given: 06/05/17 Hx Alcohol Use: No Drug/Substance Use Hx: Yes (heroin and cociaine) Substance Use Type: Heroin Hx Substance Use Treatment: Yes (inpatient [facility] detox multiple times) Review of Systems - Review of Systems Able to Perform ROS?: Yes Comments:: GENERAL/CONSTITUTIONAL: No fever or chills. No weakness. HEAD, EYES, EARS, NOSE AND THROAT: No change in vision. No ear pain or discharge. No sore throat. CARDIOVASCULAR: No chest pain. +Shortness of breath. RESPIRATORY: +Cough, wheezing. No hemoptysis. GASTROINTESTINAL: No nausea, vomiting, diarrhea or constipation. GENITOURINARY: No dysuria, frequency, or change in urination. MUSCULOSKELETAL: No joint or muscle swelling or pain. No neck or back pain. SKIN: No rash NEUROLOGIC: No headache, vertigo, loss of consciousness, or change in strength/ sensation. ENDOCRINE: No increased thirst. No abnormal weight change. HEMATOLOGIC/LYMPHATIC: No anemia, easy bleeding, or history of blood clots. ALLERGIC/IMMUNOLOGIC: No hives or skin allergy. *Physical Exam - Physical Exam Comments: GENERAL: Awake, alert, and fully oriented, in no acute distress HEAD: No signs of trauma EYES: PERRLA, EOMI, sclera anicteric, conjunctiva clear ENT: Auricles normal inspection, hearing grossly normal, nares patent, oropharynx clear without exudates. Moist mucosa NECK: Normal ROM, supple, no lymphadenopathy, JVD, or masses LUNGS: Slightly dec air entry B/L with scattered wheezes. Speaking in full sentences. HEART: Regular rate and rhythm, normal S1 and S2, no murmurs, rubs or gallops ABDOMEN: Soft, nontender, normoactive bowel sounds. No guarding, no rebound. No masses EXTREMITIES: Normal range of motion, no edema. No clubbing or cyanosis. No cords, erythema, or tenderness NEUROLOGICAL: Cranial nerves II through XII grossly intact. Normal speech, normal gait SKIN: Warm, Dry, normal turgor, no rashes or lesions noted. Medical Decision Making - Medical Decision Making 08/23/17 12:23 Pt reports improvement in his symptoms. Ambulatory without any SOB. Completing his last treatment now. 08/23/17 12:51 Pt improved. Stable for DC home. *DC/Admit/Observation/Transfer Diagnosis at time of Disposition: Asthma exacerbation Qualifiers: Asthma severity: unspecified severity Asthma persistence: unspecified Qualified Code(s): J45.901 - Unspecified asthma with (acute) exacerbation - Discharge Dispostion Disposition: HOME Condition at time of disposition: Improved Decision to Admit order: No - Prescriptions Prescriptions: Budesonide/Formeterol Fumarate [SYMBICORT 80/4.5mcg -] 1 inh PO BID #1 cannister predniSONE [Deltasone -] 40 mg PO DAILY #8 tablet - Referrals - Patient Instructions Printed Discharge Instructions: DI for Asthma -- Adult - Post Discharge Activity
[2017-08-23 11:38] VITALS: BP 123/82; PULSE 73; TEMP 97.7; BMI 27.3
[2017-08-23] MEDS ORDERED: ALBUTEROL SO4 2.5/IPRATROPIUM 0.5 INH SOL 3 ML VIAL.NEB. NEB ONE (11:40)
[2017-08-23] MEDS: ALBUTEROL SO4 2.5/IPRATROPIUM 0.5 INH SOL 3 ML VIAL.NEB. NEB SCH ×4 (11:43→12:33)
[2017-08-23] MEDS ORDERED: predniSONE 20 MG TABLET (UD) PO ONE (11:43)
[2017-08-23] MEDS ORDERED: predniSONE 20 MG TABLET (UD) ONE (11:44)
== END 2017-08-23 12:33 | disposition home or self-care (01) ==
LOC: FER 11:29
DX: J45.901 Unspecified asthma with (acute) exacerbation (principal); F17.210 Nicotine dependence, cigarettes, uncomplicated
CPT/HCPCS: 99281-25; J7620

== ENCOUNTER 2017-11-08 07:08 | Emergency (ER) | payer OTHER ==
[2017-11-08 07:13] VITALS: TEMP 98.4; BMI 27.3
[2017-11-08] MEDS ORDERED: DEXAMETHASONE SOD PHOSPHATE 10 MG/1 ML VIAL ONE (07:13)
[2017-11-08] MEDS ORDERED: ALBUTEROL SO4 2.5/IPRATROPIUM 0.5 INH SOL 3 ML VIAL.NEB. NEB ONE ×5 (07:13→08:23)
--- NOTE | 2017-11-08 07:35 | PDOC ---
History of Present Illness - General Chief Complaint: Shortness of Breath Stated Complaint: ASTHMA Time Seen by Provider: 11/08/17 07:11 - History of Present Illness Initial Comments: 11/08/17 07:35 Sunil Nicolas is a 46yo man with a PMH of asthma, COPD, current smoking, daily inhaled heroin use, and multiple admissions for asthma/COPD exacerbation secondary to medication noncompliance and heroin inhalation. Last admission was on 10/31/17; at that time he was prescribed a course of steroids and a maintenance inhaler along with his rescue inhaler. He reports that he has been using the maintenance inhaler daily as directed, but he has been SOB "on and off." Mr Nicolas reports that he was walking to a cafe this morning and began coughing and became very short of breath. He did not have his albuterol with him at the time. An ambulance was called, and he received 2 nebulizer treatments as well as dexamethasone, but he reports no improvement in his symptoms. Mr Nicolas reports that he last used heroin approximately 2pm yesterday afternoon. Past History - Past Medical History Allergies/Adverse Reactions: Allergies Allergy/AdvReac Type Severity Reaction Status Date / Time No Known Allergies Allergy Verified 11/08/17 07:10 Home Medications: Ambulatory Orders Albuterol Sulfate Inhaler - [Ventolin Hfa Inhaler -] 1 - 2 inh PO QID PRN Budesonide/Formeterol Fumarate [SYMBICORT 80/4.5mcg -] 1 inh PO BID #1 cannister 08/23/17 Prednisone [Deltasone] 40 mg PO DAILY 4 Days #8 tablet 11/08/17 Anemia: No Asthma: Yes Cancer: No Cardiac Disorders: No CVA: No COPD: No CHF: No Dementia: No Diabetes: No GI Disorders: No Disorders: No HTN: No Hypercholesterolemia: No Kidney Stones: No Liver Disease: No Seizures: No Thyroid Disease: No - Surgical History Abdominal Surgery: No Appendectomy: No Cardiac Surgery: No Cholecystectomy: No Lung Surgery: No Neurologic Surgery: No Orthopedic Surgery: No - Reproductive History Testicular Surgery: No - Immunization History Td Vaccination: Yes Immunization Up to Date: Yes - Suicide/Smoking/Psychosocial Hx Smoking Status: Yes Smoking History: Current every day smoker Years of Tobacco Use: 40 Have you smoked in the past 12 months: Yes Number of Cigarettes Smoked Daily: 4 If you are a former smoker, when did you quit?: 2014 Cigars Per Day: 0 'Breaking Loose' booklet given: 06/05/17 Hx Alcohol Use: No Drug/Substance Use Hx: Yes (heroin and cocaine) Substance Use Type: Heroin Hx Substance Use Treatment: Yes ([facility] 03/11/17 to 03/13/17 not completed) Review of Systems - Review of Systems Comments:: General: No fevers, no chills, no weight or appetite change, no malaise HEENT: No changes in vision, no changes in hearing, no congestion, no sore throat CV: No chest pain, no palpitations, no LE edema Pulm: See HPI GI: No nausea or vomiting, no change in bowel habits, no melena : No frequency, no urgency, no dysuria Musc: No back pain, no joint swelling, no recent injury Skin: No rash, no lesions, no erythema Endo: No excessive thirst, no heat/cold intolerance Heme: No unusual bruising or bleeding, no swollen glands Neuro: No syncope, no numbness/tingling, no focal weakness Vasc: No claudication Psych: No recent change in mood, no SI or HI. +current substance abuse *Physical Exam - Physical Exam Comments: General: Comfortable, no acute distress. Sleepy but easily arousable HEENT: PERRL, EOMI, MMM, voice normal, normal neck ROM, no LAD Cards: RRR, no murmur appreciated Pulm: On room air. Poor air movement bilaterally. Slight expiratory wheeze at R lung base. Abd: Soft, nontender, nondistended Ext: Atraumatic. No LE edema. ROM intact. Strength 5/5 and equal bilaterally Vasc: Extremities WWP. Palpable radial pulse bilaterally Neuro: A&Ox3, CN grossly intact, normal speech, motor/sensory grossly intact and symmetric Psych: Mood appropriate to situation Medical Decision Making - Medical Decision Making Sunil Nicolas is a 46yo man with a PMH of asthma, COPD, current smoking, current inhaled heroin use, and multiple admissions for SOB (most recently on the ) who presents today with SOB. He reports that this is his typical asthma exacerbation. - He received 2 nebulizers prior to arrival, 2 in the ED (second finishing), dexamethasone with slight improvement - Appears comfortable on exam; able to sleep full sentences, not requiring supplemental oxygen, no increased WOB - EKG obtained with NSR - CXR ordered 11/08/17 09:01 - CXR without any acute pathology - Additional duoneb given. Mr Nicolas breathing comfortably, sleeping, when re- examined - Physical exam and general appearance reassuring - Plan to discharge home with prednisone burst, follow up with PCP in 1-2 weeks or PRN Discussed with Dr Leon. *DC/Admit/Observation/Transfer Diagnosis at time of Disposition: Asthma exacerbation Qualifiers: Asthma severity: mild Asthma persistence: unspecified Qualified Code(s): J45.901 - Unspecified asthma with (acute) exacerbation - Discharge Dispostion Disposition: HOME - Prescriptions Prescriptions: Prednisone [Deltasone] 40 mg PO DAILY 4 Days #8 tablet - Referrals Referrals: Eric Yanez MD [Staff Physician] - - Patient Instructions Printed Discharge Instructions: Nicotine Addiction, DI for Asthma -- Adult, DI for Chronic Obstructive Pulmonary Disease Additional Instructions: Discharge instructions: - You were seen in the ED for shortness of breath - You received several nebulizer treatments and a dose of steroids - A prescription for 3 days of steroids has been sent to your pharmacy. Please take them as directed - Follow up with your primary physician within 1-2 weeks - Continue to take your home inhalers as directed - Post Discharge Activity
--- NOTE | 2017-11-08 07:54 | PDOC ---
Attending Attestation - Resident Resident Name: Margaret Stone - ED Attending Attestation I have performed the following: I have examined & evaluated the patient, The case was reviewed & discussed with the resident, I agree w/resident's findings & plan, Exceptions are as noted - HPI HPI: 11/08/17 07:53 46y M hx of COPD, substance abuse presents with complaint of SOB, CONTRERAS, that started this morning around 3am when he went to the bathroom. He was not feeling much better by 6am and called the ambulance. He tried using his own albuterol without [id number] improvement so called EMS. The patient denies any fever/chills, leg swelling, chest pain, contreras, abd pain, diaphoresis, n/v. Pt states he was recently admitted to the hospital earlier in [facility] and has been feeling well since then. GENERAL: The patient is awake, alert, and fully oriented, Nontoxic - in no acute distress. HEAD: Normocephalic, atraumatic. EYES: extraocular movements intact, sclera anicteric, conjunctiva clear. ENT: Normal voice, Moist mucous membranes. NECK: Normal range of motion, supple LUNGS: scant wheezing in RLL, no acute repspriator distress HEART: Regular rate and rhythm, normal S1 and S2 without murmur, rub or gallop. ABDOMEN: Soft, nontender, No guarding, no rebound. . No CVA tenderness EXTREMITIES: Normal range of motion, no edema. NEUROLOGICAL: No facial assymetry, Normal speech, moving all 4 extremities sponaneously and symmetrically PSYCH: Normal mood, normal affect. SKIN: Warm, Dry, normal turgor, suspect COPD exacerbation will give anothe rneb, will obtain cxr to r/o pna - Physicial Exam PE: 11/09/17 14:23 see above - Medical Decision Making pts cxr negative pt feeling improved pt ambulating around the ED without any contreras, sob speaking complete sentences will dc with pmd fu, steroids, nebs Heart Score/ECG Review - ECG Impressions Comment:: 11/08/17 08:16 Twelve-lead EKG was performed and reviewed by me. There is normal sinus rhythm with a normal rate. Rate of 64 The axis is normal. The intervals are normal. There is normal R wave progression There are no ST or T wave abnormalities. Impression: Normal twelve-lead EKG
[2017-11-08 10:55] VITALS: BP 126/94; PULSE 78
== END 2017-11-08 10:30 | disposition home or self-care (01) ==
LOC: JER 07:08
PROC: 3E0F7GC Introduction of Other Therapeutic Substance into Respiratory Tract, Via Natural or Artificial Opening (ICD-10-PCS; principal; 2017-11-08)
PROC: 3E0F7GC Introduction of Other Therapeutic Substance into Respiratory Tract, Via Natural or Artificial Opening (ICD-10-PCS; 2017-11-08)
PROC: 3E0F7GC Introduction of Other Therapeutic Substance into Respiratory Tract, Via Natural or Artificial Opening (ICD-10-PCS; 2017-11-08)
DX: J45.901 Unspecified asthma with (acute) exacerbation (principal); J44.9 Chronic obstructive pulmonary disease, unspecified; F17.210 Nicotine dependence, cigarettes, uncomplicated; F11.10 Opioid abuse, uncomplicated
CPT/HCPCS: 71045-TC-FY; 99284-25; J7620

== ENCOUNTER 2017-12-03 04:40 | Inpatient (IN) | payer OTHER ==
[2017-12-03] MEDS ORDERED: ALBUTEROL SO4 2.5/IPRATROPIUM 0.5 INH SOL 3 ML VIAL.NEB. NEB ONE ×7 (04:48→11:00)
[2017-12-03] MEDS ORDERED: predniSONE 20 MG TABLET (UD) PO ONE (04:48)
--- NOTE | 2017-12-03 04:48 | PDOC ---
History of Present Illness - History of Present Illness Initial Comments: 12/03/17 04:59 The patient is a 46 year old male, with a significant past medical history of COPD, asthma, and heroin usage, who presents to the emergency department via EMS with, shortness of breath. As per patient, he was sleeping when he was suddenly woken up by his shortness of breath with an associated nonproductive cough and wheezing. As per EMS, he did half of an albuterol treatment at home and received one treatment en route. He denies any recent fevers, chills, headache or dizziness. He denies any recent nausea, vomit, diarrhea or constipation. He denies any recent chest pain. He denies any recent dysuria, frequency, urgency or hematuria. Allergies: NKA Social History:Heroin usage. Occasional smoking. Primary Care Physician: Dr. Eric Yanez <Ankit Pierce - Last Filed: 12/03/17 04:59> - General History Source: Patient Exam Limitations: No Limitations <Herman Pedraza - Last Filed: 12/04/17 16:02> - General Stated Complaint: ASTHMA Time Seen by Provider: 12/03/17 04:47 Past History <Ankit Pierce - Last Filed: 12/03/17 04:59> - Past Medical History Anemia: No Asthma: Yes Cancer: No Cardiac Disorders: No CVA: No COPD: No CHF: No Dementia: No Diabetes: No GI Disorders: No Disorders: No HTN: No Hypercholesterolemia: No Kidney Stones: No Liver Disease: No Seizures: No Thyroid Disease: No - Surgical History Abdominal Surgery: No Appendectomy: No Cardiac Surgery: No Cholecystectomy: No Lung Surgery: No Neurologic Surgery: No Orthopedic Surgery: No - Reproductive History Testicular Surgery: No - Immunization History Td Vaccination: Yes Immunization Up to Date: Yes - Suicide/Smoking/Psychosocial Hx Smoking Status: Yes Smoking History: Former smoker Years of Tobacco Use: 40 Have you smoked in the past 12 months: Yes Number of Cigarettes Smoked Daily: 4 If you are a former smoker, when did you quit?: 2015 Cigars Per Day: 0 'Breaking Loose' booklet given: 11/08/17 Hx Alcohol Use: No Drug/Substance Use Hx: Yes (heroin and cocaine) Substance Use Type: Heroin Hx Substance Use Treatment: Yes ([facility] 03/11/17 to 03/13/17 not completed) <Herman Pedraza - Last Filed: 12/04/17 16:02> - Past Medical History Allergies/Adverse Reactions: Allergies Allergy/AdvReac Type Severity Reaction Status Date / Time No Known Allergies Allergy Verified 12/03/17 04:49 Home Medications: Ambulatory Orders Albuterol Sulfate Inhaler - [Ventolin Hfa Inhaler -] 1 - 2 inh PO QID PRN Budesonide/Formeterol Fumarate [SYMBICORT 80/4.5mcg -] 1 inh PO BID #1 cannister 08/23/17 Review of Systems - Review of Systems Able to Perform ROS?: Yes Comments:: 12/03/17 04:59 GENERAL/CONSTITUTIONAL: No fever or chills. No weakness. HEAD, EYES, EARS, NOSE AND THROAT: No change in vision. No ear pain or discharge. No sore throat. CARDIOVASCULAR: No chest pain. +RESPIRATORY: SOB. Cough. Wheezing. No hemoptysis. GASTROINTESTINAL: No nausea, vomiting, diarrhea or constipation. GENITOURINARY: No dysuria, frequency, or change in urination. MUSCULOSKELETAL: No joint or muscle swelling or pain. No neck or back pain. SKIN: No rash NEUROLOGIC: No headache, vertigo, loss of consciousness, or change in strength/ sensation. ENDOCRINE: No increased thirst. No abnormal weight change. HEMATOLOGIC/LYMPHATIC: No anemia, easy bleeding, or history of blood clots. ALLERGIC/IMMUNOLOGIC: No hives or skin allergy. All Other Systems: Reviewed and Negative <Ankit Pierce - Last Filed: 12/03/17 04:59> *Physical Exam - Vital Signs Last Vital Signs Temp Pulse Resp BP Pulse Ox 98.0 F 79 20 137/89 93 L 12/03/17 04:49 12/03/17 04:49 12/03/17 04:49 12/03/17 04:49 12/03/17 04:49 - Physical Exam Comments: 12/03/17 05:00 GENERAL: Awake, alert, and fully oriented, in no acute distress HEAD: No signs of trauma ENT: Hearing grossly normal. NECK: Normal ROM, supple, no lymphadenopathy, JVD, or masses +LUNGS: Diffuse expiratory wheezing. No crackles HEART: Regular rate and rhythm, normal S1 and S2, no murmurs, rubs or gallops NEUROLOGICAL: Cranial nerves II through XII grossly intact. Normal speech. SKIN: Warm, Dry, normal turgor, no rashes or lesions noted <Ankit Pierce - Last Filed: 12/03/17 04:59> ED Treatment Course - LABORATORY CBC & Chemistry Diagram: 12/03/17 06:20 12/03/17 06:20 <Herman Pedraza - Last Filed: 12/04/17 16:02> Medical Decision Making - Medical Decision Making 12/03/17 04:56 A portion of this note was written by my scribe, under my supervision. Vital Signs Temp Pulse Resp BP Pulse Ox 98.0 F 79 20 137/89 93 L 12/03/17 04:49 12/03/17 04:49 12/03/17 04:49 12/03/17 04:49 12/03/17 04:49 46 year old male with history of asthma presents with asthma exacerbation. Pt was in his usual state of health yesterday and feeling well. Woke up with expiratory wheezing and mild nonproductive cough. No chest pain or fever. PE notable for diffuse expiratory wheezing. This is consistent with asthma exacerbation. Duonebs, prednisone, and reassess. Pt was reassessed and continue to have wheezing. Chest xray and labs were ordered. Pt signed out to day time team Dr. Lopez. <Herman Pedraza - Last Filed: 12/04/17 16:02> *DC/Admit/Observation/Transfer - Attestations Scribe Attestion: 12/03/17 05:00 Documentation prepared by Ankit Pierce, acting as medical policy specialist for Herman Pedraza MD. <Ankit Pierce - Last Filed: 12/03/17 04:59> <Herman Pedraza - Last Filed: 12/04/17 16:02> Diagnosis at time of Disposition: Asthma exacerbation - Discharge Dispostion Condition at time of disposition: Guarded
[2017-12-03 04:54] VITALS: BMI 28.1
[2017-12-03] MEDS ORDERED: predniSONE 20 MG TABLET (UD) ONE (04:55)
[2017-12-03] MEDS ORDERED: MAGNESIUM SULF 50% (8.12 MEQ/2 ML-1 GM VIAL) IVPB ONE (06:12)
[2017-12-03] MEDS ORDERED: MAGNESIUM SULF 50% (8.12 MEQ/2 ML-1 GM VIAL) ONE (06:28)
[2017-12-03 06:34] LABS: EOS % 5.3 % (0-4.5); HEMATOCRIT 34.5 % (35.4-49); HEMOGLOBIN 11.8 GM/dL (11.7-16.9); LYMPH % 19.3 % (8-40); MCH 27.2 pg (25.7-33.7); MCHC 34.2 g/dl (32.0-35.9); MEAN CELL VOLUME 79.6 fl (80-96); MEAN PLT VOLUME 7.2 fl (7.5-11.1); MONO % 6.5 % (3.8-10.2); NEUT % 67.9 % (42.8-82.8); PLATELET COUNT 442 K/MM3 (134-434); RBC 4.34 M/mm3 (4.00-5.60); RDW 14.5 % (11.9-15.9); WHITE BLOOD COUNT 10.2 K/mm3 (4.0-10.0)
[2017-12-03 06:52] LABS: ALBUMIN 3.2 g/dl (3.4-5.0); ANION GAP 5 (8-16); BLOOD UREA NITROGEN 10 mg/dL (7-18); CALCIUM 8.5 mg/dL (8.5-10.1); CHLORIDE 103 mmol/L (98-107); CO2 31 mmol/L (21-32); GLUCOSE,RANDOM 121 mg/dL (74-106); MAGNESIUM 2.1 mg/dL (1.8-2.4); POTASSIUM 3.9 mmol/L (3.5-5.1); SODIUM 139 mmol/L (136-145)
[2017-12-03 06:55] LABS: ALK PHOS 92 U/L (45-117); BILIRUBIN,TOTAL 0.1 mg/dL (0.2-1.0); CREATININE 0.9 mg/dL (0.7-1.3); SGOT/AST 11 U/L (15-37); SGPT/ALT 17 U/L (12-78)
--- NOTE | 2017-12-03 11:21 | PDOC ---
*Physical Exam - Vital Signs Last Vital Signs Temp Pulse Resp BP Pulse Ox 98.0 F 68 20 137/89 100 12/03/17 04:49 12/03/17 05:08 12/03/17 04:49 12/03/17 04:49 12/03/17 05:08 - Physical Exam Comments: 12/03/17 13:05 GENERAL: Awake, alert, and fully oriented, in no acute distress HEAD: No signs of trauma ENT: Hearing grossly normal. NECK: Normal ROM, supple, no lymphadenopathy, JVD, or masses +LUNGS: Diffuse expiratory wheezing. No crackles HEART: Regular rate and rhythm, normal S1 and S2, no murmurs, rubs or gallops NEUROLOGICAL: Cranial nerves II through XII grossly intact. Normal speech. SKIN: Warm, Dry, normal turgor, no rashes or lesions noted GENERAL: Well developed, well nourished. Awake and alert. No acute distress. HEENT: Normocephalic, atraumatic. PERRLA, EOMI. No conjunctival pallor. Oropharynx is clear. NECK: Supple. Full ROM. No JVD. No thyromegaly. No lymphadenopathy. CARDIOVASCULAR: Regular rate and rhythm. No murmurs, rubs, or gallops. Distal pulses are 2+ and symmetric. PULMONARY: Significant diffuse wheezes worse on expiration. No crackles, rales, or ronchi. ABDOMINAL: Soft. Non-tender. Non-distended. No rebound or guarding. No organomegaly. Normoactive bowel sounds. MUSCULOSKELETAL Normal range of motion at all joints. No bony deformities or tenderness. No CVA tenderness. EXTREMITIES: No cyanosis. No clubbing. No edema. No calf tenderness. SKIN: Warm and dry. Normal capillary refill. No rashes. No jaundice. NEUROLOGICAL: Alert, awake, appropriate. Cranial nerves 2-12 grossly intact. Normal speech. Gait is normal without ataxia. PSYCHIATRIC: Cooperative. Good eye contact. Appropriate mood and affect. ED Treatment Course - LABORATORY CBC & Chemistry Diagram: 12/03/17 06:20 12/03/17 06:20 - ADDITIONAL ORDERS Additional order review: Laboratory Results 12/03/17 06:20 Sodium 139 Potassium 3.9 Chloride 103 Carbon Dioxide 31 Anion Gap 5 L BUN 10 Creatinine 0.9 Creat Clearance w eGFR > 60 Random Glucose 121 H D Calcium 8.5 Magnesium 2.1 D Total Bilirubin 0.1 L AST 11 L D ALT 17 Alkaline Phosphatase 92 Total Protein 7.0 Albumin 3.2 L 12/03/17 06:20 RBC 4.34 MCV 79.6 L MCHC 34.2 RDW 14.5 MPV 7.2 L Neutrophils % 67.9 Lymphocytes % 19.3 D Monocytes % 6.5 Eosinophils % 5.3 H D Basophils % 1.0 - Medications Given in the ED: ED Medications Discontinued Medications Generic Name Dose Route Start Last Admin Trade Name Remberto PRN Reason Stop Dose Admin Albuterol/Ipratropium 3 amp 12/03/17 04:48 12/03/17 05:05 Duoneb - NEB 12/03/17 04:49 3 amp ONCE ONE Administration Albuterol/Ipratropium 2 amp 12/03/17 05:46 12/03/17 05:56 Duoneb - NEB 12/03/17 05:47 2 amp ONCE ONE Administration Magnesium Sulfate 2 gm 12/03/17 06:12 12/03/17 06:34 Magnesium Sulfate IVPB 12/03/17 06:13 2 gm ONCE ONE Administration Prednisone 60 mg 12/03/17 04:48 12/03/17 05:04 Deltasone - PO 12/03/17 04:49 60 mg ONCE ONE Administration Medical Decision Making - Medical Decision Making 12/03/17 13:08 46 yo M w a hx of Asthma and COPD snorted two bags of heroine last night at 2 am. He started becoming extremely short of breath and having an asthma attack, then called EMS to bring him to hospital. He believes this is an asthma exacerbation and says it feels just like all his prior exacerbations. He knows when he uses heroine his asthma gets worse but still uses. DD: Asthma, copd, pneumothorax, PNA. SpO2 on RA was 92%. After 4 duonebs patient reports significant SOB while walking 20 feet. After multiple Duonebs, prednisone, and Mag his Breath sounds are still awful with b/l diffuse expiratory wheezing. He will be admitted to Dr. Diaz's service. *DC/Admit/Observation/Transfer Diagnosis at time of Disposition: Asthma exacerbation - Discharge Dispostion Condition at time of disposition: Guarded Decision to Admit order: Yes - Referrals - Patient Instructions - Post Discharge Activity
[2017-12-03] MEDS ORDERED: ALBUTEROL SO4 2.5/IPRATROPIUM 0.5 INH SOL 3 ML VIAL.NEB. NEB PRN (17:05)
[2017-12-03] MEDS: methylPREDNISolone NA SUCC 40 MG/1 ML VIAL IVPUSH SCH ×2 (18:26→21:34)
[2017-12-03] MEDS: DEXTROSE 5%-0.45% SALINE 1,000 ML IV SCH (18:26)
--- NOTE | 2017-12-03 20:31 | HP ---
Admitting History and Physical - Past Medical History Pulmonary: Yes: Asthma, COPD Psych: Yes: Addictions (heroin) - Past Surgical History Past Surgical History: Yes: None - Smoking History Smoking history: Former smoker Have you smoked in the past 12 months: Yes Aproximately how many cigarettes per day: 4 If you are a former smoker, when did you quit?: 2014 - Alcohol/Substance Use Hx Alcohol Use: No History of Substance Use: reports: Heroin - Social History ADL: Independent Occupation: Unemployed History of Recent Travel: No Home Medications - Allergies Allergies/Adverse Reactions: Allergies Allergy/AdvReac Type Severity Reaction Status Date / Time No Known Allergies Allergy Verified 12/03/17 04:49 - Home Medications Home Medications: Ambulatory Orders Albuterol Sulfate Inhaler - [Ventolin Hfa Inhaler -] 1 - 2 inh PO QID PRN Budesonide/Formeterol Fumarate [SYMBICORT 80/4.5mcg -] 1 inh PO BID #1 cannister 08/23/17 Family Disease History - Family Disease History Family Disease History: Diabetes: Mother, CA: Father (.) Physical Examination Vital Signs: Vital Signs Temperature 98.1 F 12/03/17 15:30 Pulse Rate 103 H 12/03/17 15:30 Respiratory Rate 20 12/03/17 15:30 Blood Pressure 123/78 12/03/17 15:30 O2 Sat by Pulse Oximetry (%) 98 12/03/17 15:30 Labs: CBC, BMP 12/03/17 06:20 12/03/17 06:20
[2017-12-03] MEDS ORDERED: METHADONE HCL 10 MG TABLET PO SCH (20:34)
[2017-12-03] MEDS ORDERED: METHADONE HCL 10 MG TABLET PO ONE (21:00)
[2017-12-03] MEDS ORDERED: methylPREDNISolone NA SUCC 40 MG/1 ML VIAL ONE (21:20)
[2017-12-03] MEDS ORDERED: METHADONE HCL 10 MG TABLET ONE (21:20)
[2017-12-03] MEDS ORDERED: BUDESONIDE/FORMETEROL FUMARATE 80/4.5 mcg INHALER IH SCH (22:00)
[2017-12-04 03:14] VITALS: BP 132/70; PULSE 88; TEMP 98.8
[2017-12-04] MEDS: methylPREDNISolone NA SUCC 40 MG/1 ML VIAL IVPUSH SCH (03:37)
[2017-12-04] MEDS: DEXTROSE 5%-0.45% SALINE 1,000 ML IV SCH (07:30)
== END 2017-12-04 07:45 | disposition home or self-care (01) | DRG 141 ==
LOC: JER 04:40 → JERBED 11:21
PROVIDERS: ADMIT Internal Medicine; ATTEND Internal Medicine
PROC: 3E0F76Z Introduction of Nutritional Substance into Respiratory Tract, Via Natural or Artificial Opening (ICD-10-PCS; principal; 2017-12-03)
DX: J45.901 Unspecified asthma with (acute) exacerbation (principal); J44.9 Chronic obstructive pulmonary disease, unspecified; F11.10 Opioid abuse, uncomplicated; F17.210 Nicotine dependence, cigarettes, uncomplicated
CPT/HCPCS: 36415; 71045-TC-FY; 80053; 83735; 85025; 99284-25; J7620

== ENCOUNTER 2017-12-16 07:47 | Inpatient (IN) | payer OTHER ==
[2017-12-16] MEDS ORDERED: methylPREDNISolone NA SUCC 125 MG/2 ML VIAL ONE (07:54)
[2017-12-16] MEDS ORDERED: ALBUTEROL SO4 0.083% IH SOL 2.5 MG/3 ML VIAL.NEB. NEB ONE ×2 (08:00→09:55)
[2017-12-16] MEDS ORDERED: methylPREDNISolone NA SUCC 125 MG/2 ML VIAL IVPUSH ONE (08:01)
--- NOTE | 2017-12-16 08:08 | PDOC ---
Attending Attestation - Resident Resident Name: Jaylen Wilson - HPI HPI: 12/18/17 09:04 Pt presents to the ED complaining of wheezing and shortness of breath consistent with prior asthma attacks. History of asthma without prior history of intubations. Seen in the ED a few days ago, treated with nebs and steroids and sent home but symptoms have persisted. Denies fevers or chest pain. No relief with home meds. - Physicial Exam PE: 12/18/17 09:09 12/18/17 09:12 Pt is alert and in no acute distress. Speaking in complete sentences, but is tachypneic. + diffuse wheezing but good air entry on exam. - Medical Decision Making 12/18/17 09:12 Pt presents to the ED complaining of wheezing and shortness of breath consistent with prior asthma exacerbations. Still symptomatic after treatment in the ED and discharge with out patient meds. Diffuse wheezing on exam. Will admit to medicine for continued treatment of asthma exacerbation. 12/18/17 09:12
--- NOTE | 2017-12-16 08:25 | PDOC ---
History of Present Illness - General Chief Complaint: Asthma Stated Complaint: ASTHMA Time Seen by Provider: 12/16/17 07:59 History Source: Patient Exam Limitations: No Limitations - History of Present Illness Initial Comments: 12/16/17 10:30 Mr. Nicolas is a 46 yo M with a hx of asthma and heroin abuse (via nasal) who presents to the emergency department with SOB since 3am this morning. It awoke him from sleep (did not have SOB prior to sleep). The day prior he was having SOB and used 1x albuterol. He last sniffed heroin yesterday at 12 pm. He did not take his albuterol today. While en route with EMS, 2x duonebs were given. He was recently seen 2 days ago for asthma exacerbation and received steroids. Was admitted couple of weeks ago for same symptoms, but never intubated in the past. Approximately, per the patient, he has had 3-4x admissions in past year. Denies the following: fever, chest pain, headaches, recent visual changes, nausea, vomiting, abdominal pain, dysuria, hematuria, diarrhea, and leg swelling /pain. Pmhx: Refer to above Shx: None Meds: nebulizer, albuterol Allergies: NKDA Social hx: Denies tobacco and alcohol use. Does heroin daily. Uses 1-2 bags of heroin via nasal route. 12/16/17 10:39 12/16/17 10:56 Past History - Past Medical History Allergies/Adverse Reactions: Allergies Allergy/AdvReac Type Severity Reaction Status Date / Time No Known Allergies Allergy Verified 12/16/17 07:59 Home Medications: Ambulatory Orders Albuterol Sulfate Inhaler - [Ventolin HFA Inhaler -] 1 - 2 inh PO QID PRN Budesonide/Formeterol Fumarate [SYMBICORT 80/4.5mcg -] 1 inh PO BID #1 cannister 08/23/17 Methadone [Dolophine -] 10 mg PO DAILY 12/16/17 Anemia: No Asthma: Yes Cancer: No Cardiac Disorders: No CVA: No COPD: No CHF: No Dementia: No Diabetes: No GI Disorders: No Disorders: No HTN: No Hypercholesterolemia: No Kidney Stones: No Liver Disease: No Seizures: No Thyroid Disease: No - Surgical History Abdominal Surgery: No Appendectomy: No Cardiac Surgery: No Cholecystectomy: No Lung Surgery: No Neurologic Surgery: No Orthopedic Surgery: No - Reproductive History Testicular Surgery: No - Immunization History Td Vaccination: Yes Immunization Up to Date: Yes - Suicide/Smoking/Psychosocial Hx Smoking Status: Yes Smoking History: Former smoker Years of Tobacco Use: 40 Have you smoked in the past 12 months: No Number of Cigarettes Smoked Daily: 4 If you are a former smoker, when did you quit?: 2015 Cigars Per Day: 0 Information on smoking cessation initiated: No 'Breaking Loose' booklet given: 11/08/17 Hx Alcohol Use: No Drug/Substance Use Hx: Yes (heroin and cocaine) Substance Use Type: None, Heroin Hx Substance Use Treatment: Yes ([facility] 03/11/17 to 03/13/17 not completed) Review of Systems - Review of Systems Able to Perform ROS?: Yes Constitutional: No: Chills, Diaphoresis, Fever HEENTM: No: Recent change in vision, Ear Pain, Nose Pain, Throat Pain, Mouth Pain Respiratory: Yes: Shortness of Breath. No: Cough Cardiac (ROS): No: Chest Pain, Lightheadedness, Palpitations, Syncope, Chest Tightness ABD/GI: No: Constipated, Diarrhea, Nausea, Rectal Bleeding, Vomiting, Tarry Stools : No: Burning, Dysuria, Flank Pain, Hematuria, Incontinence Musculoskeletal: No: Back Pain Integumentary: No: Rash, Sweating Neurological: No: Headache, Numbness, Seizure, Tingling, Tremors, Weakness, Ataxia Psychiatric: No: Stressors Endocrine: No: Unexplained Weight Gain Hematologic/Lymphatic: No: Anemia *Physical Exam - Vital Signs Last Vital Signs Temp Pulse Resp BP Pulse Ox 97.9 F 82 20 121/93 99 12/16/17 07:59 12/16/17 07:59 12/16/17 07:59 12/16/17 07:59 12/16/17 07:59 - Physical Exam General Appearance: Yes: Nourished, Appropriately Dressed HEENT: positive: EOMI, MAGDIEL, Other (Nasal hole present in the left nare. Dull TM on the left side. ) Neck: positive: Trachea midline. negative: Lymphadenopathy (R), Lymphadenopathy (L) Respiratory/Chest: positive: Other (decreased inspiratory ) Cardiovascular: positive: Regular Rhythm, Regular Rate, S1, S2. negative: Systolic Murmur Vascular Pulses: Dorsalis-Pedis (R): 3+, Doralis-Pedis (L): 3+ Gastrointestinal/Abdominal: positive: Normal Bowel Sounds. negative: Tender Musculoskeletal: positive: Normal Inspection. 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 depressions or elevations seen on EKG. normal ECG. ED Treatment Course - LABORATORY CBC & Chemistry Diagram: 12/16/17 07:58 12/16/17 07:58 - Medications Given in the ED: ED Medications Discontinued Medications Generic Name Dose Route Start Last Admin Trade Name Freq PRN Reason Stop Dose Admin Albuterol Sulfate 3 amp 12/16/17 08:00 12/16/17 08:15 Ventolin 0.083% Nebulizer Soln - NEB 12/16/17 08:01 3 amp ONCE ONE Administration Methylprednisolone Sodium Succinate 125 mg 12/16/17 08:01 12/16/17 07:58 Solu-Medrol - IVPUSH 12/16/17 08:02 125 mg ONCE ONE Administration Medical Decision Making - Medical Decision Making 46 yo M with hx of asthma and heroin abuse presenting with SOB likely 2/2 asthma exacerbation. ddx: asthma exacerbation, infectious etiology PNA, URI, Initial vitals: Initial Vital Signs Temp Pulse Resp BP Pulse Ox 97.9 F 82 20 121/93 99 12/16/17 07:59 12/16/17 07:59 12/16/17 07:59 12/16/17 07:59 12/16/17 07:59 Work up: Laboratory Tests 12/16/17 12/16/17 07:58 07:58 WBC 13.2 H RBC 4.26 Hgb 11.0 L Hct 34.4 L MCV 80.6 MCH 25.8 MCHC 32.0 RDW 15.2 Plt Count 337 MPV 8.1 Absolute Neuts (auto) 8.7 H Neutrophils % 66.4 Lymphocytes % 17.0 Monocytes % 7.1 Eosinophils % 8.4 H Basophils % 1.1 Nucleated RBC % 0 Sodium 141 Potassium 4.9 Chloride 103 Carbon Dioxide 30 Anion Gap 8 BUN 12 Creatinine 0.5 L Creat Clearance w eGFR > 60 Random Glucose 94 Calcium 8.4 L Total Bilirubin 0.4 AST 22 D ALT 18 Alkaline Phosphatase 88 Total Protein 6.1 L Albumin 2.9 L CXR was within normal limits. Was saturating in the low to mid 80s on RA while sleeping. Given solumedrol and duonebs in the department. Because of the low O2 saturation, a decision to admit was made and Dr. Diaz accepted the admission. Dispo: Admit *DC/Admit/Observation/Transfer Diagnosis at time of Disposition: Asthma Qualifiers: Asthma severity: unspecified severity Asthma persistence: unspecified Asthma complication type: unspecified Qualified Code(s): J45.909 - Unspecified asthma, uncomplicated - Referrals - Patient Instructions - Post Discharge Activity
[2017-12-16 08:48] LABS: BASO % 1.1 % (0-2.0); EOS % 8.4 % (0-4.5); HEMATOCRIT 34.4 % (35.4-49); MCH 25.8 pg (25.7-33.7); MEAN CELL VOLUME 80.6 fl (80-96); MEAN PLT VOLUME 8.1 fl (7.5-11.1); MONO % 7.1 % (3.8-10.2); NEUT % 66.4 % (42.8-82.8); PLATELET COUNT 337 K/MM3 (134-434); RBC 4.26 M/mm3 (4.00-5.60); RDW 15.2 % (11.9-15.9); WHITE BLOOD COUNT 13.2 K/mm3 (4.0-10.0)
[2017-12-16 09:04] LABS: CHLORIDE 103 mmol/L (98-107); SODIUM 141 mmol/L (136-145)
[2017-12-16 09:26] LABS: ALBUMIN 2.9 g/dl (3.4-5.0); ALK PHOS 88 U/L (45-117); ANION GAP 8 MMOL/L (8-16); BILIRUBIN,TOTAL 0.4 mg/dL (0.2-1.0); BLOOD UREA NITROGEN 12 mg/dL (7-18); CALCIUM 8.4 mg/dL (8.5-10.1); CO2 30 mmol/L (21-32); CREATININE 0.5 mg/dL (0.7-1.3); GLUCOSE,RANDOM 94 mg/dL (74-106); SGPT/ALT 18 U/L (12-78); TOT PROT 6.1 g/dl (6.4-8.2)
[2017-12-16 09:36] LABS: POTASSIUM 4.9 mmol/L (3.5-5.1); SGOT/AST 22 U/L (15-37)
[2017-12-16] MEDS ORDERED: ALBUTEROL SO4 2.5/IPRATROPIUM 0.5 INH SOL 3 ML VIAL.NEB. NEB PRN (13:12)
[2017-12-16] MEDS ORDERED: AZITHROMYCIN IVPB 250 MG in DEXTROSE 5%-WATER - 250 ML IVPB ONE (14:15)
[2017-12-16 14:21] VITALS: BMI 29.1
[2017-12-16] MEDS ORDERED: cefTRIAXone SODIUM 1 GM VIAL ONE (15:11)
[2017-12-16] MEDS ORDERED: DEXTROSE 5%-WATER - 50 ML IVPB ONE (15:11)
[2017-12-16] MEDS: CEFTRIAXONE 1 GM in DEXTROSE 5%-WATER - 50 ML IVPB SCH (15:38)
[2017-12-16] MEDS: DEXTROSE 5%-0.45% SALINE 1,000 ML IV SCH (15:38)
[2017-12-16] MEDS: BUDESONIDE/FORMETEROL FUMARATE 80/4.5 mcg INHALER IH SCH ×2 (16:49→22:44)
[2017-12-16] MEDS ORDERED: METHADONE HCL 10 MG TABLET PO ONE (17:30)
[2017-12-16] MEDS ORDERED: PT OWN MED DRAWER 7, Y5N ONE ×2 (18:57→22:35)
--- NOTE | 2017-12-16 20:52 | HP ---
Admitting History and Physical - Past Medical History Pulmonary: Yes: Asthma, COPD Psych: Yes: Addictions (heroin) - Past Surgical History Past Surgical History: Yes: None - Smoking History Smoking history: Former smoker Have you smoked in the past 12 months: No Aproximately how many cigarettes per day: 4 If you are a former smoker, when did you quit?: 2014 - Alcohol/Substance Use Hx Alcohol Use: No History of Substance Use: reports: Heroin - Social History ADL: Independent Occupation: Unemployed History of Recent Travel: No Home Medications - Allergies Allergies/Adverse Reactions: Allergies Allergy/AdvReac Type Severity Reaction Status Date / Time No Known Allergies Allergy Verified 12/16/17 07:59 - Home Medications Home Medications: Ambulatory Orders Albuterol Sulfate Inhaler - [Ventolin HFA Inhaler -] 1 - 2 inh PO QID PRN Budesonide/Formeterol Fumarate [SYMBICORT 80/4.5mcg -] 1 inh PO BID #1 cannister 08/23/17 Methadone [Dolophine -] 10 mg PO DAILY 12/16/17 Family Disease History - Family Disease History Family Disease History: Diabetes: Mother, CA: Father (.) Physical Examination Vital Signs: Vital Signs Temperature 98.1 F 12/16/17 19:06 Pulse Rate 103 H 12/16/17 19:06 Respiratory Rate 18 12/16/17 19:06 Blood Pressure 136/75 12/16/17 19:06 O2 Sat by Pulse Oximetry (%) 95 12/16/17 14:22 Labs: CBC, BMP 12/16/17 07:58 12/16/17 07:58
[2017-12-16] MEDS: HEPARIN NA (PORCINE) 5,000 UNITS/ML 1ML VIAL SQ SCH (22:43)
[2017-12-17] MEDS ORDERED: PT OWN MED DRAWER 7, Y5N ONE (10:21)
[2017-12-17] MEDS ORDERED: cefTRIAXone SODIUM 1 GM VIAL ONE (10:22)
[2017-12-17] MEDS ORDERED: DEXTROSE 5%-WATER - 50 ML IVPB ONE (10:22)
--- NOTE | 2017-12-17 10:26 | PN ---
Progress Note (short form) - Note Progress Note: PULMONARY CONSULT Chief Complaint: shortness of breath History of Present Illness: 46yo male with h/o asthma, heroin abuse, smoker known from previous admissions who presents with worsening shortness of breath. Continues to use inhalational heroin which has triggered his asthma in the past. Continues to smoke cigarettes , uses his albuterol but not his maintenance inhalers. No fevers, chills or sweats. No sick contacts or recent travel. +nonproductive cough and wheezing. No chest pain. - History Source History Provided By: Patient, Medical Record Limitations to Obtaining History: Poor Historian - Past Medical History Pulmonary: Yes: Asthma, COPD Psych: Yes: Addictions (heroin) - Past Surgical History Past Surgical History: Yes: None - Alcohol/Substance Use Hx Alcohol Use: No History of Substance Use: reports: Heroin - Smoking History Smoking history: Current every day smoker Have you smoked in the past 12 months: Yes Aproximately how many cigarettes per day: 4 If you are a former smoker, when did you quit?: 2014 - Social History ADL: Independent Occupation: Unemployed History of Recent Travel: No Albuterol Sulfate Inhaler - [Ventolin Hfa Inhaler -] 1 - 2 inh PO QID PRN Budesonide/Formeterol Fumarate [SYMBICORT 80/4.5mcg -] 1 inh PO BID #1 cannister 08/23/17 predniSONE [Deltasone -] 40 mg PO DAILY #8 tablet 08/23/17 Family Disease History - Family Disease History Family Disease History: Diabetes: Mother, CA: Father (.) Review of Systems - Review of Systems Constitutional: reports: Chills, Malaise Eyes: denies: Recent Change in Vision HENT: denies: Nasal Congestion, Throat Pain Neck: denies: Stiffness, Tenderness Cardiovascular: reports: Shortness of Breath. denies: Chest Pain, Edema, Palpitations Respiratory: reports: Cough, SOB, Wheezing. denies: Hemoptysis Gastrointestinal: denies: Abdominal Pain, Nausea, Vomiting Genitourinary: denies: Dysuria, Hematuria Neurological: denies: Dizziness, Headache Physical Exam Vital Sings: VSS Constitutional: Yes: Mild Distress Eyes: Yes: Conjunctiva Clear, EOM Intact HENT: Yes: Atraumatic, Normocephalic Neck: Yes: Supple, Trachea Midline Cardiovascular: Yes: Regular Rate and Rhythm Respiratory: Yes: Rhonchi, Wheezes ...Clubbing: No Gastrointestinal: Yes: Normal Bowel Sounds, Soft. No: Tenderness Edema: No Neurological: Yes: Alert, Oriented Labs: REVIEWED Imaging - Results Chest X-ray: Report Reviewed, Image Reviewed (no infiltrates) Problem List - Problems (1) Asthma exacerbation Code(s): J45.901 - UNSPECIFIED ASTHMA WITH (ACUTE) EXACERBATION Qualifiers: (2) Heroin abuse Code(s): F11.10 - OPIOID ABUSE, UNCOMPLICATED (3) Nicotine dependence Code(s): F17.200 - NICOTINE DEPENDENCE, UNSPECIFIED, UNCOMPLICATED Qualifiers: Assessment/Plan Acute Asthma Exacerbation Inhalational Heroin Abuse Smoker Noncompliance - IV medrol - inhaled bronchodilators standing and PRN - monitor peak flow - on empiric antibiotics, can d/c if cultures negative and pt remains afebrile - smoking/heroin cessation - DVT prophylaxis Gal ZHU MD
[2017-12-17] MEDS ORDERED: methylPREDNISolone NA SUCC 40 MG/1 ML VIAL IVPUSH SCH (10:30)
[2017-12-17] MEDS: DEXTROSE 5%-0.45% SALINE 1,000 ML IV SCH ×2 (11:52→13:40)
[2017-12-17] MEDS: CEFTRIAXONE 1 GM in DEXTROSE 5%-WATER - 50 ML IVPB SCH (11:53)
[2017-12-17] MEDS: HEPARIN NA (PORCINE) 5,000 UNITS/ML 1ML VIAL SQ SCH (11:54)
[2017-12-17] MEDS ORDERED: METHADONE HCL 10 MG TABLET PO ONE (12:15)
--- NOTE | 2017-12-17 13:35 | EKG ---
Test Reason : Blood Pressure : / mmHG Vent. Rate : 072 BPM Atrial Rate : 072 BPM P-R Int : 160 ms QRS Dur : 084 ms QT Int : 398 ms P-R-T Axes : 036 040 045 degrees QTc Int : 435 ms NORMAL SINUS RHYTHM NORMAL ECG WHEN COMPARED WITH ECG OF 13-DEC-2017 04:42, NO SIGNIFICANT CHANGE WAS FOUND Confirmed by ILYA COTTRELL MD ([id number]) on 12/17/2017 1:35:21 PM Referred By: Confirmed By:ILYA COTTRELL MD
[2017-12-17] MEDS: BUDESONIDE/FORMETEROL FUMARATE 80/4.5 mcg INHALER IH SCH (13:41)
[2017-12-17 14:59] VITALS: BP 138/84; PULSE 83; TEMP 97.5
== END 2017-12-17 16:15 | disposition left against medical advice (07) | DRG 141 ==
LOC: JER 07:47 → JERBED 11:20 → J5S 14:08
PROVIDERS: ADMIT Internal Medicine; ATTEND Internal Medicine
DX: J45.901 Unspecified asthma with (acute) exacerbation (principal); F11.10 Opioid abuse, uncomplicated; F17.210 Nicotine dependence, cigarettes, uncomplicated; J44.9 Chronic obstructive pulmonary disease, unspecified
CPT/HCPCS: 36415; 71045-TC-FY; 80053; 85025; 93005; 93010; 99285-25; J1644

== ENCOUNTER 2017-12-22 08:32 | Emergency (ER) | payer OTHER ==
--- NOTE | 2017-12-22 08:40 | PDOC ---
History of Present Illness - General Stated Complaint: ASTHMA Time Seen by Provider: 12/22/17 08:38 History Source: Patient Exam Limitations: No Limitations - History of Present Illness Initial Comments: 12/22/17 10:50 Mr. Nicolas is a 47 yo M with a hx of heroin abuse (nasal route) and asthma who presents to the emergency department with SOB. He states it occurred at 7:30 am where he was SOB, but denies concurrent chest pain, headaches, LOC, lightheadedness, or back pain. Per EMS, he was given 1x treatment of duoneb in the field and were unable to give dex given that his IV came off. He used 2 puffs of albuterol today and 2x puffs yesterday. He endorses having a recent onset of coughs starting 3 days ago. Denies the following: fevers, recent visual changes, abdominal pain, diarrhea, nausea, vomiting, dysuria, hematuria, melena, and leg pain/swelling. Pmhx: Heroin abuse, asthma Shx: None Allergies: None Social hx: Denies tobacco and alcohol use. Uses heroin nasally daily. Meds: Nebulizer, albuterol. Past History - Past Medical History Allergies/Adverse Reactions: Allergies Allergy/AdvReac Type Severity Reaction Status Date / Time No Known Allergies Allergy Verified 12/22/17 08:43 Home Medications: Ambulatory Orders Albuterol Sulfate Inhaler - [Ventolin HFA Inhaler -] 1 - 2 inh PO QID PRN Budesonide/Formeterol Fumarate [SYMBICORT 80/4.5mcg -] 1 inh PO BID #1 cannister 08/23/17 Methadone [Dolophine -] 10 mg PO DAILY 12/16/17 Anemia: No Asthma: Yes Cancer: No Cardiac Disorders: No CVA: No COPD: No CHF: No Dementia: No Diabetes: No GI Disorders: No Disorders: No HTN: No Hypercholesterolemia: No Kidney Stones: No Liver Disease: No Seizures: No Thyroid Disease: No - Surgical History Abdominal Surgery: No Appendectomy: No Cardiac Surgery: No Cholecystectomy: No Lung Surgery: No Neurologic Surgery: No Orthopedic Surgery: No - Reproductive History Testicular Surgery: No - Immunization History Td Vaccination: Yes Immunization Up to Date: Yes - Suicide/Smoking/Psychosocial Hx Smoking Status: Yes Smoking History: Former smoker Years of Tobacco Use: 40 Have you smoked in the past 12 months: Yes Number of Cigarettes Smoked Daily: 4 If you are a former smoker, when did you quit?: 2014 Cigars Per Day: 0 'Breaking Loose' booklet given: 11/08/17 Hx Alcohol Use: No Drug/Substance Use Hx: Yes (heroin and cocaine) Substance Use Type: None, Heroin Hx Substance Use Treatment: Yes ([facility] 03/11/17 to 03/13/17 not completed) Review of Systems - Review of Systems Able to Perform ROS?: Yes Constitutional: No: Chills, Diaphoresis, Fever HEENTM: No: Eye Pain, Recent change in vision, Ear Pain, Nose Pain, Throat Pain , Mouth Pain Respiratory: Yes: Cough, Shortness of Breath. No: Hemoptysis Cardiac (ROS): No: Chest Pain, Palpitations, Syncope, Chest Tightness ABD/GI: No: Abdominal Distended, Constipated, Diarrhea, Nausea, Rectal Bleeding , Vomiting, Abdominal cramping, Tarry Stools : No: Burning, Dysuria, Hematuria Musculoskeletal: No: Back Pain Integumentary: No: Lesions, Rash Neurological: No: Headache, Numbness, Paresthesia, Seizure, Tingling, Weakness, Ataxia, Dizziness Psychiatric: No: Stressors Endocrine: No: Unexplained Weight Gain Hematologic/Lymphatic: No: Anemia *Physical Exam - Physical Exam General Appearance: Yes: Nourished, Appropriately Dressed HEENT: positive: EOMI, MAGDIEL (mildly constricted), Normal Voice Neck: positive: Trachea midline. negative: Lymphadenopathy (R), Lymphadenopathy (L) Respiratory/Chest: positive: Other (inspiratory breaths were clear to auscultation. Expiratory mild wheezes in the upper lung hart bilaterally. ). negative: Chest Tender, Respiratory Distress, Accessory Muscle Use Cardiovascular: positive: Regular Rhythm, Regular Rate, S1, S2. negative: Systolic Murmur Vascular Pulses: Dorsalis-Pedis (R): 3+, Doralis-Pedis (L): 3+ Gastrointestinal/Abdominal: positive: Normal Bowel Sounds. negative: Tender Lymphatic: negative: Adenopathy Musculoskeletal: positive: Normal Inspection. negative: CVA Tenderness Extremity: positive: Normal Capillary Refill, Normal Inspection, Normal Range of Motion. 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, Fully Oriented, Alert, Normal Mood/ Affect, Normal Response, Motor Strength 08/18 ED Treatment Course - LABORATORY CBC & Chemistry Diagram: 12/22/17 09:44 12/22/17 09:44 Medical Decision Making - Medical Decision Making 12/22/17 10:56 47 yo M with hx of heroin abuse and asthma presenting with SOB likely secondary to asthma exacerbation likely due to recent heroin use (yesterday at noon via nasal route) ddx: asthma exacerbation, PNA, URI Initial vitals: Initial Vital Signs Temp Pulse Resp BP Pulse Ox 98.1 F 77 25 H 150/98 91 L 12/22/17 08:35 12/22/17 08:35 12/22/17 08:35 12/22/17 08:35 12/22/17 08:35 Work up: Laboratory Tests 12/22/17 12/22/17 09:44 09:44 WBC 8.4 RBC 4.57 Hgb 12.0 Hct 35.6 MCV 78.0 L MCH 26.2 MCHC 33.6 RDW 14.6 Plt Count 354 MPV 7.4 L Absolute Neuts (auto) 6.1 Neutrophils % 72.9 Lymphocytes % 14.9 Monocytes % 6.1 Eosinophils % 5.2 H Basophils % 0.9 Nucleated RBC % 0 Sodium 141 Potassium 3.9 D Chloride 106 Carbon Dioxide 25 Anion Gap 10 BUN 10 Creatinine 0.7 Creat Clearance w eGFR > 60 Random Glucose 152 H D Calcium 8.9 Total Bilirubin 0.4 AST 10 L D ALT 18 Alkaline Phosphatase 92 Total Protein 6.6 Albumin 3.2 L CXR shows no acute pathologies. His saturations have been 99-100% on RA since his arrival. He was given another 1 amp dose of duoneb in the department, totally 2 duonebs. He improved and states his SOB has markedly improved. Expresses willingness to go to [facility] for detoxification. 12/22/17 10:58 *DC/Admit/Observation/Transfer Diagnosis at time of Disposition: Asthma exacerbation Qualifiers: Asthma severity: unspecified severity Asthma persistence: unspecified Qualified Code(s): J45.901 - Unspecified asthma with (acute) exacerbation - Discharge Dispostion Disposition: HOME Decision to Admit order: No - Referrals Referrals: Eric Yanez MD [Primary Care Provider] - - Patient Instructions Printed Discharge Instructions: Asthma -- Adult Additional Instructions: You have been seen in the emergency department for shortness of breath. Your labs and chest xray were within normal limits. As requested, we are sending you to [facility] for detoxification. Please return to the emergency department if you have worsening of symptoms or develop new concerning symptoms. Please follow up with your primary care doctor within the next 24-48 hours. Thank you. - Post Discharge Activity
[2017-12-22 08:43] VITALS: TEMP 98.1; BMI 27.3
[2017-12-22] MEDS ORDERED: DEXAMETHASONE SOD PHOSPHATE 10 MG/1 ML VIAL ONE (08:58)
[2017-12-22] MEDS ORDERED: ALBUTEROL SO4 2.5/IPRATROPIUM 0.5 INH SOL 3 ML VIAL.NEB. NEB ONE ×2 (09:17→09:21)
--- NOTE | 2017-12-22 09:22 | PDOC ---
Attending Attestation - Resident Resident Name: KatieJaylen - ED Attending Attestation I have performed the following: I have examined & evaluated the patient, The case was reviewed & discussed with the resident, I agree w/resident's findings & plan, Exceptions are as noted - HPI HPI: 12/22/17 10:44 Mr Nicolas is a 47 yo male with h/o asthma, heroin abuse recently admitted for Asthma Pt presents to the ER via EMS due to asthma exacerbation in the setting of Heroin use (which has triggered his Asthma in the past). Pt is using Albuterol prn (twice prior to arrival in the ER today) but not maintenance inhalers. He denies fevers, chills or sweats. He denies cough productive of sputum (+) wheezing No chest pain - Physicial Exam PE: 12/22/17 10:49 Physical Exam Selected Entries 12/22/17 12/22/17 08:35 09:11 Pulse Rate 99 H Respiratory 25 H Rate Blood Pressure 150/98 O2 Sat by Pulse 97 Oximetry (%) Constitutional: No acute distress, resting comfortably in stretcher Eyes: Yes: Conjunctiva Clear, EOM Intact HENT: Yes: Atraumatic, Normocephalic Neck: Yes: Supple, Trachea Midline Cardiovascular: Yes: Regular Rate and Rhythm Respiratory: Yes: Rhonchi, Wheezes Gastrointestinal: Yes: Normal Bowel Sounds, Soft. No: Tenderness Extremity: No peripheral edema Neurological: Yes: Alert, Oriented 12/22/17 10:50 - Medical Decision Making Pt presenting with asthma exacerbation s/p Heroin use Pt presentation consistent with: Asthma exacerbation related to Heroin, vs bronchitis, vs. pneumonia Will do: labs CXR Additional nebs Pt refusing IV pt refusing steroid use (pt just completed a steroid taper) 12/22/17 10:51 Laboratory Tests 12/16/17 12/16/17 12/22/17 07:58 07:58 09:44 WBC 13.2 H 8.4 Hgb 11.0 L 12.0 Hct 34.4 L 35.6 Plt Count 337 354 BUN 12 Creatinine 0.5 L 12/22/17 09:44 WBC Hgb Hct Plt Count BUN 10 Creatinine 0.7 Pt resting comfortable HR 70s, O2 96-100% Wheezing improved Pt requesting Methadone Will send pt to [facility] for Heroin Detox
[2017-12-22 09:50] LABS: BASO % 0.9 % (0-2.0); EOS % 5.2 % (0-4.5); HEMATOCRIT 35.6 % (35.4-49); LYMPH % 14.9 % (8-40); MCH 26.2 pg (25.7-33.7); MCHC 33.6 g/dl (32.0-35.9); MEAN PLT VOLUME 7.4 fl (7.5-11.1); MONO % 6.1 % (3.8-10.2); NEUT % 72.9 % (42.8-82.8); PLATELET COUNT 354 K/MM3 (134-434); RBC 4.57 M/mm3 (4.00-5.60); RDW 14.6 % (11.9-15.9); WHITE BLOOD COUNT 8.4 K/mm3 (4.0-10.0)
[2017-12-22 10:23] LABS: ALBUMIN 3.2 g/dl (3.4-5.0); ALK PHOS 92 U/L (45-117); ANION GAP 10 MMOL/L (8-16); BILIRUBIN,TOTAL 0.4 mg/dL (0.2-1.0); BLOOD UREA NITROGEN 10 mg/dL (7-18); CALCIUM 8.9 mg/dL (8.5-10.1); CHLORIDE 106 mmol/L (98-107); CO2 25 mmol/L (21-32); CREATININE 0.7 mg/dL (0.7-1.3); GLUCOSE,RANDOM 152 mg/dL (74-106); POTASSIUM 3.9 mmol/L (3.5-5.1); SGOT/AST 10 U/L (15-37); SGPT/ALT 18 U/L (12-78); SODIUM 141 mmol/L (136-145); TOT PROT 6.6 g/dl (6.4-8.2)
[2017-12-22 11:05] VITALS: BP 142/99; PULSE 108
== END 2017-12-22 12:25 | disposition home or self-care (01) ==
LOC: JER 08:32
PROC: 3E0F7GC Introduction of Other Therapeutic Substance into Respiratory Tract, Via Natural or Artificial Opening (ICD-10-PCS; principal; 2017-12-22)
DX: J45.901 Unspecified asthma with (acute) exacerbation (principal)
CPT/HCPCS: 36415; 71045-TC-FY; 80053; 85025; 94640; 99282-25; J7620

== ENCOUNTER 2018-01-10 04:58 | Emergency (ER) | payer OTHER ==
[2018-01-10] MEDS ORDERED: predniSONE 20 MG TABLET (UD) PO ONE (05:22)
[2018-01-10 05:27] VITALS: TEMP 100.3; BMI 32.8
--- NOTE | 2018-01-10 05:32 | PDOC ---
History of Present Illness - General Chief Complaint: Shortness of Breath Stated Complaint: SOB Time Seen by Provider: 01/10/18 05:03 - History of Present Illness Initial Comments: 01/10/18 05:24 47 M with h/o asthma, heroin abuse, presenting to ED with SOB. Pt has frequent ED visits for asthma flares, usually triggered by heroin abuse. Pt states that he has been having intermittent asthma flares for several months, and it was acutely exacerbated today. Pt states he does not know what the trigger was. Denies F/C. Denies CP. Denies leg swelling. Past History - Past Medical History Allergies/Adverse Reactions: Allergies Allergy/AdvReac Type Severity Reaction Status Date / Time No Known Allergies Allergy Verified 12/22/17 08:43 Home Medications: Ambulatory Orders Albuterol Sulfate Inhaler - [Ventolin HFA Inhaler -] 1 - 2 inh PO QID PRN Budesonide/Formeterol Fumarate [SYMBICORT 80/4.5mcg -] 1 inh PO BID #1 cannister 08/23/17 Methadone [Dolophine -] 10 mg PO DAILY 12/16/17 Anemia: No Asthma: Yes Cancer: No Cardiac Disorders: No CVA: No COPD: No CHF: No DVT: No Dementia: No Diabetes: No GI Disorders: No Disorders: No HTN: No Hypercholesterolemia: No Kidney Stones: No Liver Disease: No Seizures: No Thyroid Disease: No - Surgical History Abdominal Surgery: No Appendectomy: No Cardiac Surgery: No Cholecystectomy: No Lung Surgery: No Neurologic Surgery: No Orthopedic Surgery: No - Reproductive History Testicular Surgery: No - Immunization History Td Vaccination: Yes Immunization Up to Date: Yes - Suicide/Smoking/Psychosocial Hx Smoking Status: Yes Smoking History: Former smoker Years of Tobacco Use: 40 Have you smoked in the past 12 months: Yes Number of Cigarettes Smoked Daily: 4 If you are a former smoker, when did you quit?: 2014 Cigars Per Day: 0 'Breaking Loose' booklet given: 11/08/17 Hx Alcohol Use: No Drug/Substance Use Hx: Yes (heroin and cocaine) Substance Use Type: None, Heroin Hx Substance Use Treatment: Yes ([facility] 03/11/17 to 03/13/17 not completed) Respiratory Specific PMHX - Complaint Specific PMHX TB (Tuberculosis): No Review of Systems - Review of Systems Comments:: 01/10/18 05:33 GENERAL/CONSTITUTIONAL: No fever or chills. No weakness. HEAD, EYES, EARS, NOSE AND THROAT: No change in vision. No ear pain or discharge. No sore throat. CARDIOVASCULAR: No chest pain or shortness of breath. RESPIRATORY: + wheezing GASTROINTESTINAL: No nausea, vomiting, diarrhea or constipation. GENITOURINARY: No dysuria, frequency, or change in urination. MUSCULOSKELETAL: No joint or muscle swelling or pain. No neck or back pain. SKIN: No rash NEUROLOGIC: No headache, vertigo, loss of consciousness, or change in strength/ sensation. ENDOCRINE: No increased thirst. No abnormal weight change. HEMATOLOGIC/LYMPHATIC: No anemia, easy bleeding, or history of blood clots. ALLERGIC/IMMUNOLOGIC: No hives or skin allergy. *Physical Exam - Physical Exam Comments: 01/10/18 05:33 GENERAL: somnolent but arousable and fully oriented, in no acute distress. HEAD: No signs of trauma EYES: PERRLA, EOMI, sclera anicteric, conjunctiva clear ENT: Auricles normal inspection, hearing grossly normal, nares patent, oropharynx clear without exudates. Moist mucosa NECK: Nontender, no stepoffs, Normal ROM, supple, no lymphadenopathy, JVD, or masses LUNGS: + bilateral expiratory wheezes HEART: Regular rate and rhythm, normal S1 and S2, no murmurs, rubs or gallops ABDOMEN: Soft, nontender, normoactive bowel sounds. No guarding, no rebound. No masses EXTREMITIES: Normal range of motion, no edema. No clubbing or cyanosis. No cords, erythema, or tenderness NEUROLOGICAL: Cranial nerves II through XII intact. 5/5 strength and sensation in all extremities, Normal speech, normal gait, normal cerebellar function SKIN: Warm, Dry, normal turgor, no rashes or lesions noted. Medical Decision Making - Medical Decision Making 01/10/18 05:35 47 M with asthma exacerbation. Pt with fever in ED. Exam notable only for wheezing. Will r/o PNA. Pt with no other infectious symptoms. Pt somnolent in ED , suspect acute opiate intoxication. - CXR - Flu swab - Nebs - Steroids - Tylenol *DC/Admit/Observation/Transfer - Discharge Dispostion Condition at time of disposition: Fair - Referrals Referrals: Eric Yanez MD [Primary Care Provider] - - Patient Instructions - Post Discharge Activity
[2018-01-10] MEDS ORDERED: ACETAMINOPHEN 500 MG TABLET (FP) PO ONE ×2 (05:34→05:44)
[2018-01-10] MEDS ORDERED: predniSONE 20 MG TABLET (UD) ONE (05:42)
[2018-01-10] MEDS ORDERED: ACETAMINOPHEN 325 MG TABLET (FP) ONE (05:42)
[2018-01-10] MEDS ORDERED: ALBUTEROL SO4 2.5/IPRATROPIUM 0.5 INH SOL 3 ML VIAL.NEB. NEB ONE ×2 (05:42→06:00)
[2018-01-10] MEDS: ALBUTEROL SO4 2.5/IPRATROPIUM 0.5 INH SOL 3 ML VIAL.NEB. NEB SCH ×3 (05:53→06:18)
--- NOTE | 2018-01-10 07:39 | PDOC ---
*Physical Exam - Vital Signs Last Vital Signs Temp Pulse Resp BP Pulse Ox 100.3 F H 80 18 123/85 98 01/10/18 05:03 01/10/18 05:03 01/10/18 05:03 01/10/18 05:03 01/10/18 05:03 01/10/18 07:31 Care signed out to Dr. Herring and me by Dr. Joy at the end of his shift. Patient is a 47 YOM with h/o asthma and heroin use disorder (does not inject) who p/w what he describes as one of his normal asthma flares, except more severe than in the past. Given Tylenol, Prednisone, DuoNebs x3. Will re-assess and determine if need for further workup and/or treatment. ED Treatment Course - Medications Given in the ED: ED Medications Discontinued Medications Generic Name Dose Route Start Last Admin Trade Name Freq PRN Reason Stop Dose Admin Acetaminophen 1,000 mg 01/10/18 05:34 01/10/18 05:52 Tylenol - PO 01/10/18 05:35 Not Given ONCE ONE Acetaminophen 975 mg 01/10/18 05:44 01/10/18 05:52 Tylenol - PO 01/10/18 05:45 975 mg ONCE ONE Administration Albuterol/Ipratropium 1 amp 01/10/18 05:30 01/10/18 06:18 Duoneb - NEB 01/10/18 06:16 1 amp Q15M VARSHA Administration Prednisone 40 mg 01/10/18 05:22 01/10/18 05:40 Deltasone - PO 01/10/18 05:23 40 mg ONCE ONE Administration Medical Decision Making - Medical Decision Making 01/10/18 07:33 Patient states feeling generally sick. States feels tired and head-to-toe body aches, but breathing well now. Vital Signs Temperature 100.3 F H 01/10/18 05:03 Pulse Rate 79 01/10/18 07:58 Respiratory Rate 18 01/10/18 07:58 Blood Pressure 113/70 01/10/18 07:58 O2 Sat by Pulse Oximetry (%) 98 01/10/18 07:58 Re-assessment: General sleeping but arousable, answering appropriately, well appearing. HEENT moist mucous membranes, PERRLA, EOMI, no nuchal rigidity, full ROM. Heart regular rate and rhythm, no MGR, S1S2, extremities wwp, no edema. Lungs no increased WOB, lungs CTA without wheezes or crackles, good air movement. Abdomen soft, nontender Skin good color, no pallor, no jaundice, no track herr, no lesions or bruises 01/10/18 08:12 The Pt has gotten significant relief of symptoms while in the ED. Workup is not concerning for emergency-level pathology at this time. Pt states they have their normal asthma medications at home. 3 day course of prednisone 40 mg sent to pharmacy. The Pt is appropriate for discharge with close outpatient follow up. The Pt is comfortable with this plan and will follow up with their primary care provider in 1-3 days. Specific return precautions are discussed and they will come back to the ER if necessary. *DC/Admit/Observation/Transfer Diagnosis at time of Disposition: Asthma exacerbation, Fever - Discharge Dispostion Disposition: HOME Condition at time of disposition: Stable Decision to Admit order: No - Prescriptions Prescriptions: Prednisone [Deltasone] 40 mg PO DAILY #3 tablet - Referrals Referrals: Eric Yanez MD [Primary Care Provider] - - Patient Instructions Printed Discharge Instructions: DI for Asthma -- Adult Additional Instructions: YOU WERE SEEN IN THE ER FOR ASTHMA EXACERBATION. WE GAVE YOU STEROIDS AND BREATHING TREATMENTS WHICH RESOLVED YOUR SYMPTOMS WHILE YOU WERE HERE IN THE DEPARTMENT. WE FOUND A MILD FEVER ON YOUR VITAL SIGNS, BUT THERE WAS NOTHING ELSE ABNORMAL. AFTER OUR ASSESSMENT, WE DO NOT BELIEVE YOU ARE HAVING A MEDICAL EMERGENCY AT THIS TIME, AND WE BELIEVE YOU ARE SAFE TO GO HOME. WE ARE SENDING A PRESCRIPTION FOR PREDNISONE TO YOUR PHARMACY. PLEASE TAKE THE WHOLE COURSE PRESCRIBED, AND FOLLOW UP WITH YOUR PRIMARY CARE PROVIDER(S) IN THE NEXT 1-3 DAYS. CALL THEIR CLINIC [facility], TELL THEM YOU WERE SEEN IN THE ER FOR ASTHMA, AND TELL THEM YOU NEED AN APPOINTMENT. PLEASE DO NOT USE HEROIN BECAUSE THIS IS MAKING YOUR ASTHMA WORSE. PLEASE COME BACK TO THE ER AT ANY TIME (24 HOURS A DAY ) FOR ANY NEW OR WORSENING SYMPTOMS, LIKE WORSENED WHEEZING/SHORTNESS OF BREATH THAT IS NOT RELIEVED WITH YOUR HOME MEDICATIONS, NEW SEVERE CHEST PAIN, LOSS OF CONSCIOUSNESS, OR SEIZURE. IF YOU ARE HAVING SEVERE OR LIFE THREATENING SYMPTOMS , OR SYMPTOMS THAT MAKE IT UNSAFE TO DRIVE OR HAVE SOMEONE DRIVE YOU, PLEASE CALL 911. - Post Discharge Activity
[2018-01-10] MEDS ORDERED: IBUPROFEN 600 MG TABLET (FP) PO ONE ×2 (07:48→08:03)
[2018-01-10 07:59] VITALS: BP 113/70; PULSE 79
== END 2018-01-10 09:33 | disposition home or self-care (01) ==
LOC: JER 04:58
PROC: 3E0F7GC Introduction of Other Therapeutic Substance into Respiratory Tract, Via Natural or Artificial Opening (ICD-10-PCS; principal; 2018-01-10)
PROC: 3E0F7GC Introduction of Other Therapeutic Substance into Respiratory Tract, Via Natural or Artificial Opening (ICD-10-PCS; 2018-01-10)
PROC: 3E0F7GC Introduction of Other Therapeutic Substance into Respiratory Tract, Via Natural or Artificial Opening (ICD-10-PCS; 2018-01-10)
PROC: 3E0F7GC Introduction of Other Therapeutic Substance into Respiratory Tract, Via Natural or Artificial Opening (ICD-10-PCS; 2018-01-10)
DX: J45.901 Unspecified asthma with (acute) exacerbation (principal)
CPT/HCPCS: 71045-TC-FY; 99282-25; J7620

== ENCOUNTER 2018-02-13 17:10 | Emergency (ER) | payer OTHER ==
[2018-02-13 17:26] VITALS: BP 135/84; TEMP 97; BMI 282.2
[2018-02-13] MEDS ORDERED: ALBUTEROL SO4 2.5/IPRATROPIUM 0.5 INH SOL 3 ML VIAL.NEB. NEB ONE (17:31)
[2018-02-13 17:58] VITALS: PULSE 86
--- NOTE | 2018-02-13 18:04 | PDOC ---
History of Present Illness - General Chief Complaint: Asthma Stated Complaint: ASTHMA Time Seen by Provider: 02/13/18 17:45 - History of Present Illness Initial Comments: 02/13/18 18:02 Pt eloped from the ED. I did not evaluate this patient. Past History - Past Medical History Allergies/Adverse Reactions: Allergies Allergy/AdvReac Type Severity Reaction Status Date / Time No Known Allergies Allergy Verified 02/13/18 17:16 Home Medications: Ambulatory Orders Albuterol Sulfate Inhaler - [Ventolin HFA Inhaler -] 1 - 2 inh PO QID PRN Budesonide/Formeterol Fumarate [SYMBICORT 80/4.5mcg -] 1 inh PO BID #1 cannister 08/23/17 Anemia: No Asthma: Yes Cancer: No Cardiac Disorders: No CVA: No COPD: No CHF: No DVT: No Dementia: No Diabetes: No GI Disorders: No Disorders: No HTN: No Hypercholesterolemia: No Kidney Stones: No Liver Disease: No Seizures: No Thyroid Disease: No - Surgical History Abdominal Surgery: No Appendectomy: No Cardiac Surgery: No Cholecystectomy: No Lung Surgery: No Neurologic Surgery: No Orthopedic Surgery: No - Reproductive History Testicular Surgery: No - Immunization History Td Vaccination: Yes Immunization Up to Date: Yes - Suicide/Smoking/Psychosocial Hx Smoking Status: Yes Smoking History: Never smoked Years of Tobacco Use: 40 Have you smoked in the past 12 months: Yes Number of Cigarettes Smoked Daily: 20 If you are a former smoker, when did you quit?: 2015 Cigars Per Day: 0 Information on smoking cessation initiated: No 'Breaking Loose' booklet given: 11/08/17 Hx Alcohol Use: No Drug/Substance Use Hx: No Substance Use Type: Heroin Hx Substance Use Treatment: Yes ([facility] 03/11/17 to 03/13/17 not completed) Review of Systems - Review of Systems Able to Perform ROS?: No (Pt eloped from the ED. I ) *Physical Exam - Vital Signs Last Vital Signs Temp Pulse Resp BP Pulse Ox 97 F L 86 22 H 135/84 96 02/13/18 17:17 02/13/18 17:57 02/13/18 17:57 02/13/18 17:17 02/13/18 17:57 - Physical Exam Comments: 02/13/18 18:03 Pt eloped from the ED. I did not evaluate this patient. Medical Decision Making - Medical Decision Making 02/13/18 18:03 Pt eloped from the ED. I did not evaluate this patient. *DC/Admit/Observation/Transfer Diagnosis at time of Disposition: Asthma - Discharge Dispostion Disposition: LEFT BEFORE [facility]PHERD - Referrals - Patient Instructions - Post Discharge Activity
== END 2018-02-13 17:45 | disposition left against medical advice (07) ==
LOC: JER 17:10
DX: Z53.21 Procedure and treatment not carried out due to patient leaving prior to being seen by health care provider (principal)
CPT/HCPCS: 99281-25

== ENCOUNTER 2018-02-15 08:50 | Emergency (ER) | payer SELFPAY ==
--- NOTE | 2018-02-15 08:58 | PDOC ---
History of Present Illness - General Chief Complaint: Asthma Stated Complaint: ASTHMA - History of Present Illness Initial Comments: Sunil Nicolas is a 47yo man with a PMH of asthma, COPD and substance abuse ( snorts heroin) who presents today complaining of an asthma exacerbation. He reports that he presented to the ED 2 days ago with a similar complaint. He received a breathing treatment and felt better, so he went home. He states that he was discharged though per chart review he eloped without being evaluated. Mr Nicolas reports that he has not had a significant exacerbation for "months" but was seen twice last month for previous symptoms. He has had multiple admissions for asthma exacerbation. He is not sure what triggered this one, but he does report snorting heroin daily which he previously noted was a trigger. He has been using a nebulizer at home every 5-6 hours without significant improvement. He denies any recent fevers, chills, URI symptoms, cough, or sick contacts. He last used heroin yesterday and feels that he may be withdrawing now in addition to his asthma symptoms as he feels sweaty. Past History - Past Medical History Allergies/Adverse Reactions: Allergies Allergy/AdvReac Type Severity Reaction Status Date / Time No Known Allergies Allergy Verified 02/13/18 17:16 Home Medications: Ambulatory Orders Albuterol Sulfate Inhaler - [Ventolin HFA Inhaler -] 1 - 2 inh PO QID PRN Anemia: No Asthma: Yes Cancer: No Cardiac Disorders: No CVA: No COPD: No CHF: No DVT: No Dementia: No Diabetes: No GI Disorders: No Disorders: No HTN: No Hypercholesterolemia: No Kidney Stones: No Liver Disease: No Seizures: No Thyroid Disease: No - Surgical History Abdominal Surgery: No Appendectomy: No Cardiac Surgery: No Cholecystectomy: No Lung Surgery: No Neurologic Surgery: No Orthopedic Surgery: No - Reproductive History Testicular Surgery: No - Immunization History Td Vaccination: Yes Immunization Up to Date: Yes - Suicide/Smoking/Psychosocial Hx Smoking Status: Yes Smoking History: Former smoker Years of Tobacco Use: 40 Have you smoked in the past 12 months: Yes Number of Cigarettes Smoked Daily: 4 If you are a former smoker, when did you quit?: 2015 Cigars Per Day: 0 'Breaking Loose' booklet given: 11/08/17 Hx Alcohol Use: No Drug/Substance Use Hx: Yes (heroin and cocaine) Substance Use Type: None, Heroin Hx Substance Use Treatment: Yes ([facility] 03/11/17 to 03/13/17 not completed) Review of Systems - Review of Systems Comments:: General: No fevers, no chills, no weight or appetite changes, no malaise HEENT: No changes in vision, no changes in hearing, no congestion, no sore throat CV: No chest pain, no palpitations, no LE edema Pulm: See HPI GI: No nausea or vomiting, no change in bowel habits, no melena : No frequency, no urgency, no dysuria Musc: No back pain, no joint swelling, no recent injury Skin: No rash, no lesions, no erythema Endo: No excessive thirst, no heat/cold intolerance Heme: No unusual bruising or bleeding, no swollen glands Neuro: No syncope, no numbness/tingling, no focal weakness Vasc: No claudication Psych: No recent change in mood, no SI or HI. +substance abuse *Physical Exam - Physical Exam Comments: General: Comfortable, no acute distress. Mildly diaphoretic HEENT: PERRL, EOMI, MMM, voice normal, normal neck ROM. Poor dentition. Cards: RRR, no murmur appreciated Pulm: Comfortable on room air. Diffuse wheezing bilaterally but good air movement. Abd: Soft, nontender, nondistended. : No CVA tenderness Ext: Atraumatic. No LE edema. ROM intact. Strength 5/5 and equal bilaterally Vasc: WWP Skin: Normal color, no rashes or lesions Neuro: A&Ox3, CN grossly intact, normal speech, motor/sensory grossly intact and symmetric Psych: Mood appropriate to situation Medical Decision Making - Medical Decision Making 02/15/18 09:15 Sunil Nicolas is a 47yo man with a PMH of asthma and substance abuse who presents with an asthma exacerbation. - Receiving nebulizer treatment when initially examined - still with significant diffuse wheezing bilaterally - Additional duonebs q15min ordered - Will give steroids for asthma exacerbation - Reassess following nebs 02/15/18 10:27 - Decadron already given by EMS - Total 4 nebulizer treatments given including prior to arrival in the ED - Continued wheezing but noticeable improvement - CXR ordered to r/o underlying lung condition as Mr Nicolas reports increased cough for several days - Albuterol inhaler ordered for continued wheezing; will send home with pt as he ran out of his inhaler at home. - Reassess following inhaler 02/15/18 13:09 - Albuterol inhaler never received from pharmacy. Called pharmacy to send up to the ED - Patient able to walk from holding area to elevators and back without significant respiratory difficulty - Minimal wheezing on pulm exam following walk - Will give inhaler and reassess - CXR still needed 02/15/18 14:21 - CXR reviewed. No focal consolidation or effusion though angles are cut off of the xray - Plan to discharge home. If needed, can prescribe patient's home meds as he reports that his insurance will start on Sunday. Seen and discussed with Dr Mok. Margaret Stone PGY1 *DC/Admit/Observation/Transfer Diagnosis at time of Disposition: Asthma exacerbation - Discharge Dispostion Disposition: HOME Condition at time of disposition: Stable Decision to Admit order: No - Referrals Referrals: Eric Yanez MD [Primary Care Provider] - - Patient Instructions Printed Discharge Instructions: DI for Asthma -- Adult Additional Instructions: Discharge instructions: - You were seen in the ED for shortness of breath - You received several nebulizer treatments and a dose of steroids. You were also given an inhaler treatment, and you may take the inhaler home. This albuterol inhaler can be used up to every 3-4 hours as needed for shortness of breath. - It is strongly recommended that you stop snorting heroin. This is likely a significant contribution to your average symptoms - Follow up with your primary physician within 1-2 weeks - Continue to take your home asthma medications as directed - Seek medical attention if you have asthma symptoms that do not improve with your inhaler, if you need your inhaler more often than every 4 hours, or if you have chest pain along with the shortness of breath. - Post Discharge Activity
[2018-02-15 09:05] VITALS: TEMP 98.5; BMI 28.1
[2018-02-15] MEDS ORDERED: ALBUTEROL SO4 2.5/IPRATROPIUM 0.5 INH SOL 3 ML VIAL.NEB. NEB ONE ×3 (09:20→13:15)
--- NOTE | 2018-02-15 09:20 | PDOC ---
Attending Attestation - Resident Resident Name: Margaret Stone - ED Attending Attestation I have performed the following: I have examined & evaluated the patient, The case was reviewed & discussed with the resident, I agree w/resident's findings & plan, Exceptions are as noted - HPI HPI: 02/15/18 09:20 47y F hx of asthma, substance abuse (heroin), presents with cough x several days with nasal congestion. associated with fever. denies any cp, campbell, hemptysis , fever/chills. on exam Pulm: wheezing b/l, no acute respiratory distress card: rrr, no mrg ext: no edema in extremities, no calf tenderness suspect viral syndrome exacerbating asthma, no clinical signs of symptoms suggestive of PE will obtain xray will give albuterol pt given decadron by ems - Medical Decision Making 02/15/18 14:44 The patient is feeling improved the patient's pulmonary exam is normal without any wheezing the patient is nontachypneic. The pt was ambulatory in the ER without any signs of respiratory Distress We'll discharge patient with albuterol inhaler. Patient is requesting detox will send the patient to detox
[2018-02-15] MEDS: ALBUTEROL SO4 2.5/IPRATROPIUM 0.5 INH SOL 3 ML VIAL.NEB. NEB SCH ×4 (09:24→09:59)
[2018-02-15] MEDS ORDERED: ALBUTEROL SO4 8 GM HFA INHALER IH PRN ×2 (10:30→10:32)
[2018-02-15 15:59] VITALS: BP 113/74; PULSE 113
== END 2018-02-15 15:59 | disposition home or self-care (01) ==
LOC: JER 08:50
PROC: 3E0F7GC Introduction of Other Therapeutic Substance into Respiratory Tract, Via Natural or Artificial Opening (ICD-10-PCS; principal; 2018-02-15)
DX: J45.901 Unspecified asthma with (acute) exacerbation (principal)
CPT/HCPCS: 71046-TC-FY; 99283-25

== ENCOUNTER 2018-02-18 21:33 | Emergency (ER) | payer OTHER ==
[2018-02-18] MEDS ORDERED: DEXAMETHASONE 4 MG TABLET (FP) PO ONE (22:00)
--- NOTE | 2018-02-18 22:00 | PDOC ---
History of Present Illness - General Stated Complaint: ASTHMA - History of Present Illness Initial Comments: Sunil Nicolas is a 47yo man with a PMH of asthma, COPD and substance abuse ( snorts heroin) who was BIBA with an asthma exacerbation. He was seen recently in the ED on 02/15/18 with a similar presentation. Today he reports that he has felt short of breath since he left the ED on the , though he was noted at discharge to have no wheezing and good air movement on lung exam. He was given an inhaler to take home at discharge and states that he has been using it frequently throughout the weekend. He felt slightly improved earlier today, and he last snorted heroin around 7am. He was able to complete his usual activities today. Around 7:30pm, he started feeling increasingly short of breath, and his symptoms did not improve after using his inhaler. An ambulance was called to bring him to the hospital. He received 3 nebul[address] treatments on the way to the ED without significant improvement. Mr Nicolas denies any fevers, chills, nasal congestion, chest pain, or other new symptoms. Past History - Past Medical History Allergies/Adverse Reactions: Allergies Allergy/AdvReac Type Severity Reaction Status Date / Time No Known Allergies Allergy Verified 02/19/18 04:52 Home Medications: Ambulatory Orders NK [No Known Home Medication] 02/18/18 Anemia: No Asthma: Yes Cancer: No Cardiac Disorders: No CVA: No COPD: No CHF: No DVT: No Dementia: No Diabetes: No GI Disorders: No Disorders: No HTN: No Hypercholesterolemia: No Kidney Stones: No Liver Disease: No Seizures: No Thyroid Disease: No - Surgical History Abdominal Surgery: No Appendectomy: No Cardiac Surgery: No Cholecystectomy: No Lung Surgery: No Neurologic Surgery: No Orthopedic Surgery: No - Reproductive History Testicular Surgery: No - Immunization History Td Vaccination: Yes Immunization Up to Date: Yes - Suicide/Smoking/Psychosocial Hx Smoking Status: Yes Smoking History: Unknown if ever smoked Years of Tobacco Use: 40 Have you smoked in the past 12 months: Yes Number of Cigarettes Smoked Daily: 4 If you are a former smoker, when did you quit?: 2015 Cigars Per Day: 0 'Breaking Loose' booklet given: 11/08/17 Hx Alcohol Use: No Drug/Substance Use Hx: No Substance Use Type: None, Heroin Hx Substance Use Treatment: Yes ([facility] 03/11/17 to 03/13/17 not completed) Review of Systems - Review of Systems Comments:: General: No fevers, no chills, no weight or appetite change, no malaise HEENT: No changes in vision, no changes in hearing, no congestion, no sore throat CV: No chest pain, no palpitations, no LE edema Pulm: See HPI GI: No nausea or vomiting, no change in bowel habits, no melena : No frequency, no urgency, no dysuria Musc: No back pain, no joint swelling, no recent injury Skin: No rash, no lesions, no erythema Endo: No excessive thirst, no heat/cold intolerance Heme: No unusual bruising or bleeding, no swollen glands Neuro: No syncope, no numbness/tingling, no focal weakness Vasc: No claudication Psych: No recent change in mood, no SI or HI. +heroin use *Physical Exam - Vital Signs Last Vital Signs Temp Pulse Resp BP Pulse Ox 103 H 22 H 124/89 96 02/18/18 21:37 02/18/18 21:37 02/18/18 21:37 02/18/18 21:37 - Physical Exam Comments: General: Uncomfortable HEENT: PERRL, EOMI, MMM, voice normal, normal neck ROM, no LAD Cards: Tachycardic, regular Pulm: Labored breathing on NC. Diffuse wheezing. Able to speak in complete sentences Abd: Soft, nontender, nondistended Ext: Atraumatic. No LE edema. ROM intact. Strength 5/5 and equal bilaterally Vasc: Extremities WWP. Palpable radial and pedal pulses bilaterally Skin: Normal color, no rashes or lesions Neuro: A&Ox3, CN grossly intact, normal speech, motor/sensory grossly intact and symmetric Psych: Mood appropriate to situation Medical Decision Making - Medical Decision Making 02/18/18 22:15 Sunil Nicolas is a 47yo man with a PMH of asthma and substance abuse, well known to the ED for multiple visits for asthma exacerbation, who presents with wheezing and SOB that worsened at home around 7:30 tonight. He received 3x nebulizer treatments en route to the hospital without significant improvement. - Diffuse wheezing and labored breathing consistent with asthma exacerbation. - Continuous duoneb (q15min) ordered - Declined IV medications. 10mg PO decadron ordered - Will reassess 02/18/18 23:18 - Re-examined following meds - Vitals now WNL. HR 92. Sats 94% on room air. Breathing comfortably. BP 109/ 85. - Reports that he was able to walk to the bathroom and back (approx 100m total) with minimal SOB - Will likely discharge home 02/19/18 02:09 - Still some slight wheezing, but sats 97% on room air and sleeping comfortably - Discussed discharge with patient. He is reluctant to leave. - Will order one additional continuous duoneb then discharge home. Mr Nicolas agrees to this plan. 02/19/18 05:03 - Continues to sleep comfortably. Non-labored breathing. Sats in mid to high 90' s on room air (94-97) - Discharge home Discussed with Dr Aldair Stone PGY1 *DC/Admit/Observation/Transfer Diagnosis at time of Disposition: Asthma exacerbation - Discharge Dispostion Disposition: HOME Condition at time of disposition: Stable Decision to Admit order: No - Referrals Referrals: [facility] [place] [Provider Group] - Patient Instructions Printed Discharge Instructions: DI for Asthma -- Adult, DI for Opioid Addiction Additional Instructions: Discharge instructions: - You were seen in the ED for shortness of breath - You received several nebulizer treatments and a dose of steroids. - Continue to use your albuterol inhaler at home as needed. You were previously prescribed additional medications; try to pick these up from the pharmacy as soon as possible. - It is strongly recommended that you stop snorting heroin. This is likely a significant contribution to your symptoms. Please consider going to rehab for help if you are unable to stop on your own. - Follow up with your primary physician within 1-2 weeks - Continue to take your home asthma medications as directed - Seek medical attention if you have asthma symptoms that do not improve with your inhaler, if you need your inhaler more often than every 4 hours, or if you have chest pain along with the shortness of breath. - Post Discharge Activity
[2018-02-18 22:14] VITALS: BMI 27.4
[2018-02-18] MEDS ORDERED: ALBUTEROL SO4 2.5/IPRATROPIUM 0.5 INH SOL 3 ML VIAL.NEB. NEB ONE ×2 (22:19→23:23)
[2018-02-18] MEDS: ALBUTEROL SO4 2.5/IPRATROPIUM 0.5 INH SOL 3 ML VIAL.NEB. NEB SCH ×4 (22:40→23:37)
--- NOTE | 2018-02-19 00:02 | PDOC ---
Attending Attestation - HPI HPI: 02/19/18 00:02 The patient is a 47 year old male, with a significant past medical history of COPD, asthma, and heroin usage, who presents to the emergency department via EMS with, shortness of breath. Patient was seen in the ER 02/15 for similar symptoms. Allergies: NKA Social History:Heroin usage. Occasional smoking. Primary Care Physician: Dr. Eric Yanez - Physicial Exam PE: 02/19/18 00:02 GENERAL: Well-appearing, well-nourished. No apparent distress. HEENT: Normocephalic, atraumatic. PERRL, EOM intact. CARDIOVASCULAR: Normal S1, S2. Regular rate and rhythm. +PULMONARY: Scattered wheezing. ABDOMEN: Soft, non-distended, non-tender. EXTREMITIES: Normal ROM in all four extremities. No gross deformities. SKIN: Warm, dry. No rash NEUROLOGICAL: No focal neurological deficits. <Ankit Pierce - Last Filed: 02/19/18 00:02> - Resident Resident Name: Magraret Stone - ED Attending Attestation I have performed the following: I have examined & evaluated the patient, The case was reviewed & discussed with the resident, I agree w/resident's findings & plan, Exceptions are as noted - Medical Decision Making 02/20/18 01:47 imp asthma exacerbation <Lori Quinteros - Last Filed: 02/20/18 01:48> Attestations - Attestations 02/19/18 00:02 Documentation prepared by Ankit Pierce, acting as medical front desk coordinator for Lori Quinteros MD. <Ankit Pierce - Last Filed: 02/19/18 00:02>
[2018-02-19 01:55] VITALS: TEMP 98.2
[2018-02-19] MEDS: ALBUTEROL SO4 2.5/IPRATROPIUM 0.5 INH SOL 3 ML VIAL.NEB. NEB SCH ×4 (02:16→03:09)
[2018-02-19] MEDS ORDERED: ALBUTEROL SO4 2.5/IPRATROPIUM 0.5 INH SOL 3 ML VIAL.NEB. NEB ONE (02:27)
[2018-02-19 06:15] VITALS: BP 116/72; PULSE 80
== END 2018-02-19 06:22 | disposition home or self-care (01) ==
LOC: JER 21:33
PROC: 3E0F7GC Introduction of Other Therapeutic Substance into Respiratory Tract, Via Natural or Artificial Opening (ICD-10-PCS; principal; 2018-02-18)
PROC: 3E0F7GC Introduction of Other Therapeutic Substance into Respiratory Tract, Via Natural or Artificial Opening (ICD-10-PCS; 2018-02-18)
DX: J45.901 Unspecified asthma with (acute) exacerbation (principal); F11.10 Opioid abuse, uncomplicated
CPT/HCPCS: 99283-25

== ENCOUNTER 2018-03-14 07:45 | Emergency (ER) | payer SELFPAY ==
[2018-03-14 07:58] VITALS: BMI 27.3
--- NOTE | 2018-03-14 08:41 | PDOC ---
History of Present Illness - General Chief Complaint: Asthma Stated Complaint: Asthma Time Seen by Provider: 03/14/18 07:52 - History of Present Illness Initial Comments: 03/14/18 10:53 Patient is a 47 year old male with past medical history of asthma and COPD, and hx of substance abuse (heroin, cocaine), presented with productive cough and worsening shortness of breath that started 5 days ago. Patient was seen multiple times at the ED in the last months for asthma exacerbation. He was last seen in 02/18 and was sent home with albuterol inhaler, to which he was taking 2-3 times per day to relieve shortness of breath. Five days ago, patient developed productive cough, with brownish sputum and worsening shortness of breath, increasing inhaler intake to 4-5 times per day. Last intake of heroin was yesterday afternoon. Today, patient woke up, very short of breath, and called EMS. He received 1 dose of neb at the ambulance and 1 more when he got to the ED. Denies any headaches, dizziness, fevers, chills, rhinorrhea, ear pain , dysphagia, chest pain, palpitations, abdominal pain, diarrhea, constipation, urinary symptoms. Past History - Past Medical History Allergies/Adverse Reactions: Allergies Allergy/AdvReac Type Severity Reaction Status Date / Time No Known Allergies Allergy Verified 03/14/18 07:59 Home Medications: Ambulatory Orders predniSONE [Deltasone -] 60 mg PO DAILY #5 tablet 03/14/18 Anemia: No Asthma: Yes Cancer: No Cardiac Disorders: No CVA: No COPD: No CHF: No DVT: No Dementia: No Diabetes: No GI Disorders: No Disorders: No HTN: No Hypercholesterolemia: No Kidney Stones: No Liver Disease: No Seizures: No Thyroid Disease: No - Surgical History Abdominal Surgery: No Appendectomy: No Cardiac Surgery: No Cholecystectomy: No Lung Surgery: No Neurologic Surgery: No Orthopedic Surgery: No - Reproductive History Testicular Surgery: No - Immunization History Td Vaccination: Yes Immunization Up to Date: Yes - Suicide/Smoking/Psychosocial Hx Smoking Status: Yes Smoking History: Unknown if ever smoked Years of Tobacco Use: 40 Have you smoked in the past 12 months: Yes Number of Cigarettes Smoked Daily: 4 If you are a former smoker, when did you quit?: 2015 Cigars Per Day: 0 Information on smoking cessation initiated: No 'Breaking Loose' booklet given: 11/08/17 Hx Alcohol Use: No Drug/Substance Use Hx: No Substance Use Type: Heroin Hx Substance Use Treatment: Yes ([facility] 03/11/17 to 03/13/17 not completed) Respiratory Specific PMHX - Complaint Specific PMHX TB (Tuberculosis): No *Physical Exam - Vital Signs Last Vital Signs Temp Pulse Resp BP Pulse Ox 98.0 F 80 16 124/67 100 03/14/18 07:45 03/14/18 07:45 03/14/18 07:45 03/14/18 07:45 03/14/18 07:45 - Physical Exam Comments: 03/14/18 10:53 General: awake, alert, oriented, in mild distress, able to speak full sentences Head: no signs of head trauma HEENT: PERRLA, EOMI, sclerae anicteric, Neck: supple, trachea midline, without LAD Lungs: diffuse wheezing bilaterally Heart: regular rate and rhythm, no murmurs, rubs, gallops Abdomen: soft, nontender, nondistended, NABS Ext: no peripheral edema, +2 pulses Moderate Sedation - Procedure Monitoring Vital Signs: Procedure Monitoring Vital Signs Temperature 98.0 F 03/14/18 07:45 Pulse Rate 80 03/14/18 07:45 Respiratory Rate 16 03/14/18 07:45 Blood Pressure 124/67 03/14/18 07:45 O2 Sat by Pulse Oximetry (%) 100 03/14/18 07:45 ED Treatment Course - LABORATORY CBC & Chemistry Diagram: 03/14/18 09:17 03/14/18 09:17 Medical Decision Making - Medical Decision Making 03/14/18 08:41 Patient is a 47 year old male with past medical history of asthma and COPD, and hx of substance abuse (heroin, cocaine), presented with productive cough and worsening shortness of breath that started 5 days ago. DDx: include but not limited to asthma/COPD exacerbation, ACS CBC, CMP, Cardiac enzymes CXR, EKG IV Methylprednisolone 125mg Duonebs q15 x 2 doses will reassess 03/14/18 10:53 Patient sleeping comfortably. Reported he became short of breath when he went to the bathroom RR 20 O2 sat 100% Lung exam showed improved breath sounds with less wheezing CXR showed no acute pathology 03/14/18 12:33 Patient refused to go home. Reports dyspnea on exertion VS/Lung exam stays the same, improved. Will give albuterol neb x1 and discharge. *DC/Admit/Observation/Transfer Diagnosis at time of Disposition: Asthma with acute exacerbation in adult Qualifiers: Asthma severity: unspecified severity Asthma persistence: unspecified Qualified Code(s): J45.901 - Unspecified asthma with (acute) exacerbation - Discharge Dispostion Disposition: HOME Condition at time of disposition: Improved Decision to Admit order: No - Prescriptions Prescriptions: predniSONE [Deltasone -] 60 mg PO DAILY #5 tablet - Referrals Referrals: Eric Yanez MD [Primary Care Provider] - - Patient Instructions Printed Discharge Instructions: Asthma -- Adult, DI for Chronic Bronchitis Additional Instructions: You were seen at the ED because you had shortness of breath. You were given nebulizer treatments and a dose of steroids. Continue your albuterol inhaler at home and take as needed. You will be prescribed with a medication, Prednisone 60mg, which you will take once a day for 5 days. Please pick them up from your pharmacy. Follow-up with your primary care doctor within 2 days. Call 911 or go to the ED if with any worsening shortness of breath that does not improve with the inhaler or you have chest pain, fevers, chills or any new concerns. - Post Discharge Activity
[2018-03-14] MEDS ORDERED: ALBUTEROL SO4 2.5/IPRATROPIUM 0.5 INH SOL 3 ML VIAL.NEB. NEB PRN (08:49)
[2018-03-14] MEDS ORDERED: ALBUTEROL SO4 2.5/IPRATROPIUM 0.5 INH SOL 3 ML VIAL.NEB. NEB ONE (08:56)
[2018-03-14] MEDS ORDERED: methylPREDNISolone NA SUCC 125 MG/2 ML VIAL IVPUSH ONE (09:03)
[2018-03-14] MEDS: ALBUTEROL SO4 2.5/IPRATROPIUM 0.5 INH SOL 3 ML VIAL.NEB. NEB SCH ×2 (09:26→09:46)
[2018-03-14] MEDS ORDERED: methylPREDNISolone NA SUCC 125 MG/2 ML VIAL ONE (09:27)
[2018-03-14 09:30] LABS: BASO % 0.4 % (0-2.0); EOS % 3.2 % (0-4.5); HEMATOCRIT 35.8 % (35.4-49); HEMOGLOBIN 12.1 GM/dL (11.7-16.9); LYMPH % 9.3 % (8-40); MCH 26.7 pg (25.7-33.7); MCHC 33.8 g/dl (32.0-35.9); MEAN PLT VOLUME 7.6 fl (7.5-11.1); MONO % 4.6 % (3.8-10.2); NEUT % 82.5 % (42.8-82.8); PLATELET COUNT 304 K/MM3 (134-434); RBC 4.53 M/mm3 (4.00-5.60); RDW 16.3 % (11.9-15.9); WHITE BLOOD COUNT 9.1 K/mm3 (4.0-10.0)
--- NOTE | 2018-03-14 09:56 | PDOC ---
Attending Attestation - Resident Resident Name: Ledy Reese - ED Attending Attestation I have performed the following: I have examined & evaluated the patient, The case was reviewed & discussed with the resident, I agree w/resident's findings & plan - HPI HPI: 03/14/18 09:53 47-year-old male with history of asthma/COPD, active smoker and heroin user and occasional cocaine presents with asthma COPD exacerbation since yesterday not improving with home nebulizers. Last inhaled heroin yesterday, denies any cocaine use. No fevers or chills, no new cough, reports chest tightness and wheezing. Last treatment was after he was seen here earlier this month, he completed a course of steroids at the time. Dr. Rdz is his wax bleacher - Physicial Exam PE: 03/14/18 09:54 Vital signs are within normal limits, including O2 sat of 100%, but he is tachypneic to about 24 Alert on nebulizer during my exam, speaking in near complete sentences Oropharynx is clear, pupils are equal and reactive Heart is regular without murmurs Lungs have good air movement, diffuse expiratory wheezing with decreased breath sounds at the left base Abdomen benign, no leg edema - Medical Decision Making 03/14/18 09:55 47-year-old male with history of asthma/COPD with active smoking and use presents with diffuse wheezing and asthma exacerbation over the last 24 hours, notably following his last heroin inhalation. He has no chest pain, no fever, his O2 sat is normal. Presentation seems most consistent with asthma exacerbation, rule out pneumonia given the abnormal breath sounds at the left base. Labs, EKG Chest x-ray Nebulizers, IV steroids Reassess Heart Score/ECG Review #1 ECG reviewed & interpreted by me at: 10:05 General ECG Interpretation: Sinus Rhythm, Normal Rate (76), Normal Intervals ( qtc 425), No acute ischemic changes
[2018-03-14 10:11] LABS: ALBUMIN 3.3 g/dl (3.4-5.0); ALK PHOS 86 U/L (45-117); ANION GAP 9 MMOL/L (8-16); BILIRUBIN,TOTAL 0.2 mg/dL (0.2-1); BLOOD UREA NITROGEN 11 mg/dL (7-18); CALCIUM 8.4 mg/dL (8.5-10.1); CHLORIDE 104 mmol/L (98-107); CO2 26 mmol/L (21-32); CREATININE 0.9 mg/dL (0.55-1.3); GLUCOSE,RANDOM 98 mg/dL (74-106); POTASSIUM 4.5 mmol/L (3.5-5.1); SGOT/AST 15 U/L (15-37); SGPT/ALT 20 U/L (13-61); SODIUM 138 mmol/L (136-145); TOT PROT 6.4 g/dl (6.4-8.2)
--- NOTE | 2018-03-14 11:57 | EKG ---
Test Reason : Blood Pressure : / mmHG Vent. Rate : 076 BPM Atrial Rate : 076 BPM P-R Int : 158 ms QRS Dur : 082 ms QT Int : 378 ms P-R-T Axes : 041 052 053 degrees QTc Int : 425 ms NORMAL SINUS RHYTHM NORMAL ECG WHEN COMPARED WITH ECG OF 16-DEC-2017 09:00, NO SIGNIFICANT CHANGE WAS FOUND Confirmed by TREVOR LUNDBERG MD ([id number]) on 03/14/2018 11:56:38 AM Referred By: Confirmed By:TREVOR LUNDBERG MD
[2018-03-14] MEDS ORDERED: ALBUTEROL SO4 0.083% IH SOL 2.5 MG/3 ML VIAL.NEB. NEB ONE (12:34)
[2018-03-14 13:41] VITALS: BP 130/71; PULSE 75; TEMP 98.6
== END 2018-03-14 13:44 | disposition home or self-care (01) ==
LOC: JER 07:45
PROC: 3E0333Z Introduction of Anti-inflammatory into Peripheral Vein, Percutaneous Approach (ICD-10-PCS; principal; 2018-03-14)
PROC: 3E0F7GC Introduction of Other Therapeutic Substance into Respiratory Tract, Via Natural or Artificial Opening (ICD-10-PCS; 2018-03-14)
PROC: 3E0F7GC Introduction of Other Therapeutic Substance into Respiratory Tract, Via Natural or Artificial Opening (ICD-10-PCS; 2018-03-14)
PROC: 3E0F7GC Introduction of Other Therapeutic Substance into Respiratory Tract, Via Natural or Artificial Opening (ICD-10-PCS; 2018-03-14)
DX: J45.901 Unspecified asthma with (acute) exacerbation (principal); F11.10 Opioid abuse, uncomplicated; F14.10 Cocaine abuse, uncomplicated
CPT/HCPCS: 36415; 71045-TC-FY; 80053; 82550; 84484; 85025; 93005; 93010; 99282-25

== ENCOUNTER 2018-03-28 02:44 | Inpatient (IN) | payer OTHER ==
[2018-03-28] MEDS ORDERED: methylPREDNISolone NA SUCC 125 MG/2 ML VIAL IVPUSH ONE (02:52)
[2018-03-28] MEDS ORDERED: MAGNESIUM SULF 50% (8.12 MEQ/2 ML-1 GM VIAL) IVPB ONE (02:52)
--- NOTE | 2018-03-28 03:01 | PDOC ---
History of Present Illness - General Stated Complaint: ASTHMA Time Seen by Provider: 03/28/18 02:51 History Source: Patient, EMS, Old Records Exam Limitations: No Limitations - History of Present Illness Initial Comments: 03/28/18 02:55 Pt is a 47yo M with PMH of Asthma, COPD, cocaine use, heroin use BIBA for asthma /copd exacerbation that started today. Pt is only using albuterol inhaler at home which did not help. He endorses cough productive of brown phelgm and shortness of breath. He denies fevers, chills, chest pain, abdominal pain, n/v/d , urinary symptoms, syncope. He states that he has not been to his PMD for medication adjustments. He denies drug use today. He smokes cigarettes and last smoked a few days ago. Per EMS, pt received 2 combivent. Was saturating low 90s on RA. Last hospitalization for exacerbation was "many years ago". Has never been intubated for exacerbation in the past. PMD: Eric Yanez PMH: see hpi PSH: none Meds: albuterol inhaler Allergies: nkda Social: 2 cigarettes every few days. Past History - Past Medical History Allergies/Adverse Reactions: Allergies Allergy/AdvReac Type Severity Reaction Status Date / Time No Known Allergies Allergy Verified 03/28/18 03:01 Home Medications: Ambulatory Orders predniSONE [Deltasone -] 60 mg PO DAILY #5 tablet 03/14/18 Anemia: No Asthma: Yes Cancer: No Cardiac Disorders: No CVA: No COPD: No CHF: No DVT: No Dementia: No Diabetes: No GI Disorders: No Disorders: No HTN: No Hypercholesterolemia: No Kidney Stones: No Liver Disease: No Seizures: No Thyroid Disease: No - Surgical History Abdominal Surgery: No Appendectomy: No Cardiac Surgery: No Cholecystectomy: No Lung Surgery: No Neurologic Surgery: No Orthopedic Surgery: No - Reproductive History Testicular Surgery: No - Immunization History Td Vaccination: Yes Immunization Up to Date: Yes - Suicide/Smoking/Psychosocial Hx Smoking Status: Yes Smoking History: Unknown if ever smoked Years of Tobacco Use: 40 Have you smoked in the past 12 months: Yes Number of Cigarettes Smoked Daily: 4 If you are a former smoker, when did you quit?: 2015 Cigars Per Day: 0 'Breaking Loose' booklet given: 11/08/17 Hx Alcohol Use: No Drug/Substance Use Hx: No Substance Use Type: Heroin Hx Substance Use Treatment: Yes ([facility] 03/11/17 to 03/13/17 not completed) Review of Systems - Review of Systems Constitutional: No: Chills, Fever HEENTM: No: Symptoms Reported Respiratory: Yes: See HPI, Cough, Shortness of Breath, Wheezing, Productive cough Cardiac (ROS): No: Chest Pain, Lightheadedness, Palpitations, Syncope ABD/GI: No: Constipated, Diarrhea, Nausea, Vomiting : No: Burning, Dysuria Musculoskeletal: No: Back Pain, Neck Pain Integumentary: No: Symptoms Reported Neurological: No: Headache, Numbness, Tingling, Weakness *Physical Exam - Physical Exam General Appearance: Yes: Nourished, Appropriately Dressed. No: Apparent Distress HEENT: positive: EOMI, MAGDIEL Neck: positive: Trachea midline, Supple. negative: Lymphadenopathy (R), Lymphadenopathy (L) Respiratory/Chest: positive: Wheezing (diffuse wheezing bilaterally) Cardiovascular: positive: Regular Rhythm, Regular Rate, S1, S2. negative: Edema , JVD, Murmur Vascular Pulses: Carotid (R): 2+, Carotid (L): 2+, Dorsalis-Pedis (R): 2+, Doralis-Pedis (L): 2+ Gastrointestinal/Abdominal: positive: Normal Bowel Sounds, Soft. negative: Guarding, Rebound, Tenderness Musculoskeletal: negative: CVA Tenderness Extremity: negative: Normal Capillary Refill Integumentary: positive: Normal Color, Dry, Warm Neurologic: positive: fitness assistant II-XII NML intact, Fully Oriented, Alert, Normal Mood/ Affect, Normal Response, Motor Strength / ED Treatment Course - LABORATORY CBC & Chemistry Diagram: 03/28/18 05:40 03/28/18 03:32 - RADIOLOGY Radiology Studies Ordered: Category Date Time Status CHEST X-RAY PORTABLE* [RAD] Stat Radiology 03/28/18 02:51 Ordered Medical Decision Making - Medical Decision Making 03/28/18 02:59 Pt is a 47yo M with PMH of Asthma, COPD, cocaine use, heroin use BIBA for asthma /copd exacerbation that started today. Pt is only using albuterol inhaler at home which did not help. He endorses cough productive of brown phelgm and shortness of breath. He denies fevers, chills, chest pain, abdominal pain, n/v/d , urinary symptoms, syncope. He states that he has not been to his PMD for medication adjustments. He denies drug use today. He smokes cigarettes and last smoked a few days ago. Per EMS, pt received 2 doses of Combivent. Saturating low 90s on RA. Not on oxygen at home. Vitals: wnl, 100% on nonrebreather with combivent. Afebrile PE: bilateral wheezing. DDx includes but not limited to: asthma/copd exacerbation, NM, PNA, PE Will order cxr, ekg, cbc, cmp, mg, trop. Will give Solu-Medrol and MG. Will reevaluate. 03/28/18 04:05 Pt sleeping after 2nd Combivent treatment. Saturating at 92%RA. Started on NC. Still had wheezing. Will receive MG and SoluMedrol. Will give another DuoNeb CXR might have R lower lobe density compared to prior however not optimal radiograph. EKG did not show acute changes from prior. 03/28/18 05:40 CBC clotted. Will resend. CBC showed normal white count, decreased hemoglobin at 10.7. Pt has gone as low as 11 in the past. All other labs wnl. Pt sleeping. Woke pt up. Says he feels short of breath when going to the bathroom and at rest. Still has diffuse wheezing. Saturating at 95-98% RA. Will give pt azithromycin 500mg IV 03/28/18 06:15 Will admit for COPD exacerbation. Called Dr. Diaz. Waiting for call back. 03/28/18 06:54 *DC/Admit/Observation/Transfer - Discharge Dispostion Condition at time of disposition: Fair - Referrals Referrals: Miriam Yanez [Primary Care Provider] - - Patient Instructions - Post Discharge Activity
[2018-03-28] MEDS ORDERED: MAGNESIUM SULF 50% (8.12 MEQ/2 ML-1 GM VIAL) ONE (03:13)
[2018-03-28] MEDS ORDERED: methylPREDNISolone NA SUCC 125 MG/2 ML VIAL ONE (03:13)
[2018-03-28] MEDS ORDERED: ALBUTEROL SO4 2.5/IPRATROPIUM 0.5 INH SOL 3 ML VIAL.NEB. NEB ONE ×4 (04:06→06:24)
--- NOTE | 2018-03-28 05:28 | PDOC ---
Attending Attestation - Resident Resident Name: Kimberlee Kim - ED Attending Attestation I have performed the following: I have examined & evaluated the patient, The case was reviewed & discussed with the resident, I agree w/resident's findings & plan, Exceptions are as noted - HPI HPI: 03/28/18 07:03 47M pmh asthma, copd, no home 02, psa, here with a day of worsening sob, increase in sputum production, no f/c, n/v. Pt did not have any meds at home so called ems. Was given 1 neb en route. - Physicial Exam PE: 03/28/18 07:04 Agree with exam as documented by resident - Medical Decision Making 03/28/18 07:04 Hx and PE consistent with copd exacerbation with incr in dyspnea and sputum Pt still with exertional dyspnea after tx, nebs, steroids, mg Admit for copd exacerbation, started on abx
[2018-03-28 05:36] LABS: ALBUMIN 3.2 g/dl (3.4-5.0); ALK PHOS 82 U/L (45-117); ANION GAP 8 MMOL/L (8-16); BILIRUBIN,TOTAL 0.2 mg/dL (0.2-1); BLOOD UREA NITROGEN 19 mg/dL (7-18); CHLORIDE 104 mmol/L (98-107); CO2 27 mmol/L (21-32); CREATININE 0.7 mg/dL (0.55-1.3); GLUCOSE,RANDOM 88 mg/dL (74-106); MAGNESIUM 2.1 mg/dL (1.8-2.4); POTASSIUM 4.4 mmol/L (3.5-5.1); SGOT/AST 15 U/L (15-37); SGPT/ALT 14 U/L (13-61); SODIUM 140 mmol/L (136-145)
[2018-03-28 06:02] LABS: BASO % 0.5 % (0-2.0); EOS % 1.6 % (0-4.5); HEMATOCRIT 33.2 % (35.4-49); HEMOGLOBIN 10.7 GM/dL (11.7-16.9); LYMPH % 3.8 % (8-40); MCH 25.6 pg (25.7-33.7); MCHC 32.2 g/dl (32.0-35.9); MEAN CELL VOLUME 79.7 fl (80-96); MEAN PLT VOLUME 7.5 fl (7.5-11.1); MONO % 3.1 % (3.8-10.2); PLATELET COUNT 248 K/MM3 (134-434); RBC 4.16 M/mm3 (4.00-5.60); RDW 15.6 % (11.9-15.9); WHITE BLOOD COUNT 7.2 K/mm3 (4.0-10.0)
[2018-03-28] MEDS ORDERED: AZITHROMYCIN IVPB 500 MG in DEXTROSE 5%-WATER - 250 ML IVPB ONE (06:13)
[2018-03-28] MEDS ORDERED: AZITHROMYCIN IVPB 500 MG/250 ML BAG IVPB ONE (06:24)
[2018-03-28 06:59] LABS: PLATELET ESTIMATE ADEQUATE
--- NOTE | 2018-03-28 12:47 | EKG ---
Test Reason : Blood Pressure : / mmHG Vent. Rate : 083 BPM Atrial Rate : 083 BPM P-R Int : 172 ms QRS Dur : 084 ms QT Int : 370 ms P-R-T Axes : 060 044 047 degrees QTc Int : 434 ms NORMAL SINUS RHYTHM NORMAL ECG WHEN COMPARED WITH ECG OF 14-MAR-2018 10:05, NO SIGNIFICANT CHANGE WAS FOUND Confirmed by TREVOR LUNDBERG MD ([id number]) on 03/28/2018 12:47:36 PM Referred By: Confirmed By:TREVOR LUNDBERG MD
[2018-03-28] MEDS: ALBUTEROL SO4 2.5/IPRATROPIUM 0.5 INH SOL 3 ML VIAL.NEB. NEB PRN (16:11)
[2018-03-28 16:41] VITALS: BMI 28.1
[2018-03-28] MEDS: NICOTINE 21 MG/24 HOURS TOPICAL PATCH TD SCH (18:15)
[2018-03-28] MEDS: methylPREDNISolone NA SUCC 40 MG/1 ML VIAL IVPUSH SCH (18:15)
[2018-03-28 19:11] LABS: URINE APPEARANCE CLEAR; URINE BILIRUBIN NEGATIVE (<2.0 mg/dL); URINE COLOR STRAW; URINE GLUCOSE (UA) NEGATIVE (NEGATIVE); URINE KETONE NEGATIVE (NEGATIVE); URINE LEUK ESTERASE NEGATIVE (NEGATIVE); URINE NITRITE NEGATIVE (NEGATIVE); URINE PROTEIN NEGATIVE (NEGATIVE); URINE UROBILINOGEN NEGATIVE mg/dL (0.2-1.0)
[2018-03-28 19:24] LABS: METHADONE, UR NEGATIVE ng/ml (CUTOFF=300); PHENCYCLIDINE,URINE NEGATIVE ng/ml (CUTOFF=25); URINE AMPHETAMINES NEGATIVE ng/ml (CUTOFF=500); URINE BARBITURATES NEGATIVE ng/ml (CUTOFF=200); URINE BENZODIAZEPINES NEGATIVE ng/ml (CUTOFF=200)
[2018-03-28 19:26] LABS: OPIATES, URI POSITIVE ng/ml (CUTOFF=300)
[2018-03-28 19:27] LABS: COCAINE, UR POSITIVE ng/ml (CUTOFF=300)
[2018-03-28] MEDS ORDERED: METHADONE HCL 10 MG TABLET PO ONE (20:45)
[2018-03-28] MEDS: ONDANSETRON 4 MG/2 ML VIAL IVPUSH PRN (21:02)
[2018-03-28] MEDS: HEPARIN NA (PORCINE) 5,000 UNITS/ML 1ML VIAL SQ SCH (21:02)
[2018-03-28] MEDS: BACITRACIN 15 GM TUBE TOPICAL OINTMENT TP SCH (21:03)
[2018-03-28] MEDS: diphenhydrAMINE HCL 25 MG CAPSULE (FP) PO PRN (23:57)
[2018-03-29] MEDS: ONDANSETRON 4 MG/2 ML VIAL IVPUSH PRN (02:13)
[2018-03-29] MEDS: methylPREDNISolone NA SUCC 40 MG/1 ML VIAL IVPUSH SCH ×3 (02:13→21:58)
[2018-03-29] MEDS ORDERED: guaiFENesin 200 MG/10 ML 10 ML UNIT-DOSE CUPS PO SCH (03:15)
[2018-03-29] MEDS: guaiFENesin 200 MG/10 ML 10 ML UNIT-DOSE CUPS PO PRN ×2 (03:30→18:26)
[2018-03-29] MEDS: ALBUTEROL SO4 2.5/IPRATROPIUM 0.5 INH SOL 3 ML VIAL.NEB. NEB PRN ×3 (03:47→15:30)
[2018-03-29 07:31] LABS: BASO % 0.2 % (0-2.0); HEMATOCRIT 37.9 % (35.4-49); HEMOGLOBIN 12.9 GM/dL (11.7-16.9); LYMPH % 4.5 % (8-40); MCH 26.6 pg (25.7-33.7); MCHC 34.2 g/dl (32.0-35.9); MEAN CELL VOLUME 77.8 fl (80-96); MONO % 3.8 % (3.8-10.2); NEUT % 91.5 % (42.8-82.8); PLATELET COUNT 353 K/MM3 (134-434); RBC 4.87 M/mm3 (4.00-5.60); RDW 15.4 % (11.9-15.9); WHITE BLOOD COUNT 9.6 K/mm3 (4.0-10.0)
[2018-03-29 08:10] LABS: ALBUMIN 3.5 g/dl (3.4-5.0); ALK PHOS 93 U/L (45-117); ANION GAP 9 MMOL/L (8-16); BILIRUBIN,TOTAL 0.2 mg/dL (0.2-1); BLOOD UREA NITROGEN 13 mg/dL (7-18); CALCIUM 9.4 mg/dL (8.5-10.1); CHLORIDE 103 mmol/L (98-107); CO2 26 mmol/L (21-32); GLUCOSE,RANDOM 141 mg/dL (74-106); POTASSIUM 4.5 mmol/L (3.5-5.1); SGOT/AST 13 U/L (15-37); SGPT/ALT 16 U/L (13-61); SODIUM 138 mmol/L (136-145); TOT PROT 7.1 g/dl (6.4-8.2)
[2018-03-29 09:55] LABS: ANISOCYTOSIS 1+; MACROCYTOSIS 0; PLATELET ESTIMATE NORMAL
[2018-03-29] MEDS ORDERED: METHADONE HCL 10 MG TABLET PO ONE ×2 (10:00→16:30)
[2018-03-29] MEDS ORDERED: DEXTROSE 5%-WATER 100 ML IVPB ONE (10:18)
[2018-03-29] MEDS ORDERED: cefTRIAXone SODIUM 1 GM VIAL ONE (10:18)
[2018-03-29] MEDS ORDERED: METHADONE HCL 10 MG TABLET PO SCH (10:30)
[2018-03-29] MEDS: HEPARIN NA (PORCINE) 5,000 UNITS/ML 1ML VIAL SQ SCH ×2 (10:35→21:58)
[2018-03-29] MEDS: AZITHROMYCIN IVPB 250 MG in DEXTROSE 5%-WATER - 250 ML IVPB SCH (10:35)
[2018-03-29] MEDS: CEFTRIAXONE 1 GM in DEXTROSE 5%-WATER 100 ML IVPB SCH (10:35)
[2018-03-29] MEDS: BACITRACIN 15 GM TUBE TOPICAL OINTMENT TP SCH ×2 (10:38→23:06)
--- NOTE | 2018-03-29 11:37 | HP ---
Admitting History and Physical - Admission History of Present Illness: Pt is a 47yo M with PMH of Asthma, COPD, cocaine use, heroin use BIBA for asthma /copd exacerbation that started today. Pt is only using albuterol inhaler at home which did not help. He endorses cough productive of brown phelgm and shortness of breath. He denies fevers, chills, chest pain, abdominal pain, n/v/d , urinary symptoms, syncope. He states that he has not been to his PMD for medication adjustments. He denies drug use today. He smokes cigarettes and last smoked a few days ago. Per EMS, pt received 2 combivent. Pt states that he is still using heroin and last use few days ago - Past Medical History Pulmonary: Yes: Asthma, COPD Psych: Yes: Addictions (heroin) - Past Surgical History Past Surgical History: Yes: None - Smoking History Smoking history: Current some day smoker Have you smoked in the past 12 months: Yes Aproximately how many cigarettes per day: 4 If you are a former smoker, when did you quit?: 2015 - Alcohol/Substance Use Hx Alcohol Use: No History of Substance Use: reports: Heroin - Social History ADL: Independent Occupation: Unemployed History of Recent Travel: No Home Medications - Allergies Allergies/Adverse Reactions: Allergies Allergy/AdvReac Type Severity Reaction Status Date / Time No Known Allergies Allergy Verified 03/28/18 03:01 - Home Medications Home Medications: Ambulatory Orders Unobtainable 03/28/18 Family Disease History - Family Disease History Family History: Unremarkable Family Disease History: Diabetes: Mother, CA: Father (.) Review of Systems - Review of Systems Constitutional: reports: No Symptoms HENT: reports: No Symptoms Neck: reports: No Symptoms Cardiovascular: reports: No Symptoms Respiratory: reports: Cough, SOB, Wheezing Gastrointestinal: reports: Nausea Genitourinary: reports: No Symptoms Physical Examination Vital Signs: Vital Signs Temperature 98.3 F 03/29/18 08:47 Pulse Rate 96 H 03/29/18 08:47 Respiratory Rate 20 03/29/18 08:47 Blood Pressure 138/90 03/29/18 08:47 O2 Sat by Pulse Oximetry (%) 98 03/28/18 21:00 Eyes: Yes: WNL HENT: Yes: WNL Neck: Yes: WNL, Supple Cardiovascular: Yes: WNL, Regular Rate and Rhythm Respiratory: Yes: Wheezes Gastrointestinal: Yes: WNL, Normal Bowel Sounds, Soft Musculoskeletal: Yes: WNL Extremities: Yes: WNL Edema: No Neurological: Yes: WNL, Alert, Oriented ...Motor Strength: WNL Labs: CBC, BMP 03/29/18 06:00 03/29/18 06:00 Problem List - Problems (1) Asthma exacerbation Assessment/Plan: Will start pt on IV solumedrol IV antibxs Cont nebulizers Pulmonary consult Code(s): J45.901 - UNSPECIFIED ASTHMA WITH (ACUTE) EXACERBATION Qualifiers: (2) Opioid dependence with withdrawal Assessment/Plan: Addiction medicine consult Will give dose of methadone Zofran for nausea Code(s): 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 (3) Tobacco abuse Code(s): Z72.0 - TOBACCO USE
[2018-03-29] MEDS: ALBUTEROL SO4 2.5/IPRATROPIUM 0.5 INH SOL 3 ML VIAL.NEB. NEB SCH ×2 (15:00→20:10)
--- NOTE | 2018-03-29 15:45 | PN ---
Progress Note (short form) - Note Progress Note: PULMONARY CONSULATATION DICTATED 03/29/18 IMP ASTHMA/COPD EXACERBATION SUBSTANCE ABUSE TOBACCO ABUSE NON-COMPLIANCE WITH MEDS PLAN IV STEROIDS INHALED BRONCHODILATORS O2 PEAK FLOW SMOKING CESSATION COUNSELED CHEST CT DR THOMPSON Problem List - Problems (1) Asthma with COPD with exacerbation Code(s): J44.1 - CHRONIC OBSTRUCTIVE PULMONARY DISEASE W (ACUTE) EXACERBATION; J45.901 - UNSPECIFIED ASTHMA WITH (ACUTE) EXACERBATION (2) Cocaine dependence, uncomplicated Code(s): F14.20 - COCAINE DEPENDENCE, UNCOMPLICATED (3) Tobacco abuse Code(s): Z72.0 - TOBACCO USE (4) Tobacco abuse counseling Code(s): Z71.6 - TOBACCO ABUSE COUNSELING (5) Nicotine dependence Code(s): F17.200 - NICOTINE DEPENDENCE, UNSPECIFIED, UNCOMPLICATED Qualifiers: (6) Opioid dependence with withdrawal Code(s): 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 (7) SOB (shortness of breath) Code(s): R06.02 - SHORTNESS OF BREATH
[2018-03-29] MEDS ORDERED: ALPRAZolam 0.25 MG TABLET PO ONE (16:15)
--- NOTE | 2018-03-29 16:32 | PN ---
[facility] COWS - Scale Resting Pulse: 1= [place] 81-100 Sweatin= Chills/Flushing Restless Observation: 1= Difficult to Sit Still Pupil Size: 1= Pupils >than Normal Bone or Joint Aches: 2= Severe Diffuse Aches Runny Nose/ Eye Tearin= Runny Nose/Eyes GI Upset > 30mins: 2= Nausea/Diarrhea Tremor Observation of Outstretched Hands: 0= None Yawning Observation: 0= None Anxiety or Irritability: 4=Extreme Anxiety Goose Flesh Skin: 0=Smooth Skin COWS Score: 14 [facility] Progress Note (SOAP) Subjective: patient referred for consultation , reports use of heroin via inhalation x 9 years , approximately 9-10 bags /day denies IVDU , most recent detox in 2017 at [facility] , did not participate in outpatient program after d/c , most recent use 1 day ago, current symptoms as above with minimal symptomatic improvement with 10 mg Methadone received earlier today as well as yesterday evening . Pt admitted for asthma exacerbation / COPD , currently on IV antibiotics . + cocaine use via inhalation , not daily , + tobacco use , denies ETOH use . Objective: 03/29/18 16:30 wnwd , restless , agitated . Urine Test Results Urine Color Straw 03/28/18 17:54 Urine Appearance Clear 03/28/18 17:54 Urine pH 8.0 (5.0-8.0) 03/28/18 17:54 Ur Specific [place] 1.010 (1.010-1.035) 03/28/18 17:54 Urine Protein Negative (NEGATIVE) 03/28/18 17:54 Urine Glucose (UA) Negative (NEGATIVE) 03/28/18 17:54 Urine Ketones Negative (NEGATIVE) 03/28/18 17:54 Urine Blood Negative (NEGATIVE) 03/28/18 17:54 Urine Nitrite Negative (NEGATIVE) 03/28/18 17:54 Urine Bilirubin Negative (<2.0 mg/dL) 03/28/18 17:54 Ur Leukocyte Esterase Negative (NEGATIVE) 03/28/18 17:54 Abnormal Lab Results 03/28/18 03/29/18 03/29/18 17:43 06:00 06:00 MCV 77.8 L Absolute Neuts (auto) 8.8 H Neutrophils % 91.5 H Neutrophils % (Manual) 92.0 H Lymphocytes % 4.5 L Lymphocytes % (Manual) 2.0 L Random Glucose 141 H AST 13 L Opiates Screen Positive A* Cocaine Screen Positive A* Vital Signs - 24 hr 03/28/18 03/28/18 03/29/18 21:00 22:06 02:20 Temperature 99.8 F H 98.2 F Pulse Rate 86 Respiratory 22 H 22 H Rate Blood Pressure 132/68 O2 Sat by Pulse 98 Oximetry (%) 03/29/18 03/29/18 03/29/18 06:00 08:47 09:00 Temperature 97.7 F 98.3 F Pulse Rate 82 96 H Respiratory 24 H 20 Rate Blood Pressure 154/85 138/90 O2 Sat by Pulse 92 L Oximetry (%) 03/29/18 14:20 Temperature 98.5 F Pulse Rate 87 Respiratory 20 Rate Blood Pressure 136/84 O2 Sat by Pulse Oximetry (%) Active Medications Albuterol/Ipratropium (Duoneb -) 1 amp NEB Q6H PRN PRN Reason: SHORTNESS OF BREATH Last Admin: 03/29/18 15:30 Dose: 1 amp Albuterol/Ipratropium (Duoneb -) 1 amp NEB RQID VARSHA Bacitracin (Bacitracin -) 1 applic TP BID VARSHA Last Admin: 03/29/18 10:38 Dose: 1 applic Clonidine (Catapres -) 0.1 mg PO Q12H PRN PRN Reason: WITHDRAWAL(CONT SUBST) Diphenhydramine HCl (Benadryl -) 50 mg PO Q8H PRN PRN Reason: FOR ITCHING Last Admin: 03/28/18 23:57 Dose: 50 mg Guaifenesin (Robitussin -) 10 ml PO Q6H PRN PRN Reason: COUGH Last Admin: 03/29/18 03:30 Dose: 10 ml Heparin Sodium (Porcine) (Heparin -) 5,000 unit SQ BID VARSHA Last Admin: 03/29/18 10:35 Dose: 5,000 unit Azithromycin 250 mg/ Dextrose 250 mls @ 250 mls/hr IVPB DAILY VARSHA Last Admin: 03/29/18 10:35 Dose: 250 mls/hr Ceftriaxone Sodium 1 gm/ (Dextrose) 100 mls @ 200 mls/hr IVPB DAILY [facility]; Protocol Last Admin: 03/29/18 10:35 Dose: 200 mls/hr Methadone HCl (Dolophine -) 15 mg PO ONCE ONE Stop: 03/31/18 10:01 Methadone HCl (Dolophine -) 5 mg PO ONCE@0600 ONE Stop: 04/02/18 06:01 Methadone HCl (Dolophine -) 20 mg PO ONCE ONE Stop: 03/30/18 10:01 Methadone HCl (Dolophine -) 10 mg PO ONCE ONE Stop: 04/01/18 10:01 Methylprednisolone Sodium Succinate (Solu-Medrol -) 40 mg IVPUSH Q6H-IV VARSHA Nicotine (Nicoderm Patch -) 21 mg TD DAILY VARSHA Last Admin: 03/28/18 18:15 Dose: 21 mg Prochlorperazine Maleate (Compazine -) 5 mg PO Q4H PRN PRN Reason: NAUSEA AND/OR VOMITING Assessment: 03/29/18 16:32 opioid dependence in withdrawal cocaine dependence nicotine dependence Plan: Methadone taper entered d/c Ondasentron 2/2 risk of QT prolongation , changed to prn Compazine discussed with patient , verbalizes understanding and agreement with POC .
[2018-03-29] MEDS: NICOTINE 21 MG/24 HOURS TOPICAL PATCH TD SCH (16:45)
--- NOTE | 2018-03-29 17:12 | CONS ---
DATE OF CONSULTATION: 03/29/2018 REFERRING PHYSICIAN: Flavia Diaz M.D. HISTORY OF PRESENT ILLNESS: The patient is a 47-year-old male known to me from previous hospitalizations with a past medical history of asthma, COPD, longstanding history of tobacco abuse currently still smoking, history of substance abuse, presents to [facility] with complaint of increasing shortness of breath, cough, chest congestion. The patient states in the past 2 days he has started developing the above symptoms. He states that he ran out of his inhalers, at which time he presented to the emergency room. He denied any fever , chills, nausea, vomiting, diaphoresis, or hemoptysis. Patient has had multiple hospitalizations in the past secondary to noncompliance with medication , COPD exacerbations. He has longstanding history of tobacco use and currently still smokes. 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 There is no history of recent travel. PAST MEDICAL HISTORY: Again includes asthma/COPD, substance abuse. REVIEW OF SYSTEMS: Positive for cough. Positive for shortness of breath. Positive for chest congestion. No fever. No chills. No hemoptysis. No abdominal pain. No lower extremity edema. CURRENT MEDICATIONS: Include Zithromax, Solu-Medrol, Zofran, ceftriaxone, bacitracin, DuoNeb, Benadryl, Robitussin, and methadone. PHYSICAL EXAMINATION: GENERAL: The patient is a well-developed, well-nourished male awake, alert, in no acute distress. VITAL SIGNS: He is afebrile. Blood pressure 136/84, respiratory rate 20, O2 saturation is 92% on 3 L. HEENT: Normocephalic, atraumatic. NECK: Supple. HEART: Regular S1, S2. CHEST: Diffuse bilateral wheezes and rhonchi. ABDOMEN: Soft, bowel sounds positive. EXTREMITIES: No cyanosis, edema. LABORATORY: BUN 13 Creatinine 1.0. Toxicology positive for opiates. Positive for cocaine. Chest x-ray: No acute pathology. IMPRESSION: 1. Asthma/chronic obstructive pulmonary disease exacerbation possibly secondary to upper respiratory infection. 2. History of substance abuse. 3. Tobacco abuse. 4. Non-compliance PLAN: IV steroids. Inhaled bronchodilators, supplemental O2, sputum for C and S, antibiotics, followup smoking cessation counseled. Chest CT ANGELA THOMPSON M.D. DUTCH/[id number] MTDD
[2018-03-29] MEDS: cloNIDine HCL 0.1 MG TABLET PO PRN (18:47)
[2018-03-29] MEDS: PROCHLORPERAZINE MALEATE 5 MG TABLET PO PRN (18:47)
[2018-03-29] MEDS: diphenhydrAMINE HCL 25 MG CAPSULE (FP) PO PRN (21:58)
[2018-03-30] MEDS: guaiFENesin 200 MG/10 ML 10 ML UNIT-DOSE CUPS PO PRN (02:58)
[2018-03-30] MEDS: ALBUTEROL SO4 2.5/IPRATROPIUM 0.5 INH SOL 3 ML VIAL.NEB. NEB PRN (03:11)
[2018-03-30] MEDS: methylPREDNISolone NA SUCC 40 MG/1 ML VIAL IVPUSH SCH ×4 (03:35→21:56)
[2018-03-30] MEDS: ALBUTEROL SO4 2.5/IPRATROPIUM 0.5 INH SOL 3 ML VIAL.NEB. NEB SCH ×4 (07:15→20:50)
[2018-03-30] MEDS ORDERED: cefTRIAXone SODIUM 1 GM VIAL ONE (08:46)
[2018-03-30] MEDS ORDERED: DEXTROSE 5%-WATER 100 ML IVPB ONE (08:46)
[2018-03-30] MEDS ORDERED: PT OWN MED DRAWER 7, Y5N ONE (08:48)
[2018-03-30] MEDS: CEFTRIAXONE 1 GM in DEXTROSE 5%-WATER 100 ML IVPB SCH (09:26)
[2018-03-30] MEDS: BACITRACIN 15 GM TUBE TOPICAL OINTMENT TP SCH ×2 (09:26→21:56)
[2018-03-30] MEDS: HEPARIN NA (PORCINE) 5,000 UNITS/ML 1ML VIAL SQ SCH ×2 (09:26→21:56)
[2018-03-30] MEDS: NICOTINE 21 MG/24 HOURS TOPICAL PATCH TD SCH (09:26)
[2018-03-30] MEDS: AZITHROMYCIN IVPB 250 MG in DEXTROSE 5%-WATER - 250 ML IVPB SCH (09:30)
[2018-03-30] MEDS ORDERED: METHADONE HCL 10 MG TABLET PO ONE (10:00)
[2018-03-30] MEDS: cloNIDine HCL 0.1 MG TABLET PO PRN (10:15)
--- NOTE | 2018-03-30 11:45 | PN ---
Progress Note, Physician History of Present Illness: pulmonary alert,still dyspneic - Current Medication List Current Medications: Active Medications Albuterol/Ipratropium (Duoneb -) 1 amp NEB Q6H PRN PRN Reason: SHORTNESS OF BREATH Last Admin: 03/30/18 03:11 Dose: 1 amp Albuterol/Ipratropium (Duoneb -) 1 amp NEB RQID VARSHA Last Admin: 03/30/18 11:27 Dose: 1 amp Bacitracin (Bacitracin -) 1 applic TP BID VARSHA Last Admin: 03/30/18 09:26 Dose: 1 applic Clonidine (Catapres -) 0.1 mg PO Q12H PRN PRN Reason: WITHDRAWAL(CONT SUBST) Last Admin: 03/30/18 10:15 Dose: 0.1 mg Diphenhydramine HCl (Benadryl -) 50 mg PO Q8H PRN PRN Reason: FOR ITCHING Last Admin: 03/29/18 21:58 Dose: 50 mg Guaifenesin (Robitussin -) 10 ml PO Q6H PRN PRN Reason: COUGH Last Admin: 03/30/18 02:58 Dose: 10 ml Heparin Sodium (Porcine) (Heparin -) 5,000 unit SQ BID VARSHA Last Admin: 03/30/18 09:26 Dose: 5,000 unit Azithromycin 250 mg/ Dextrose 250 mls @ 250 mls/hr IVPB DAILY [facility] Last Admin: 03/30/18 09:30 Dose: 250 mls/hr Ceftriaxone Sodium 1 gm/ (Dextrose) 100 mls @ 200 mls/hr IVPB DAILY [facility]; Protocol Last Admin: 03/30/18 09:26 Dose: 200 mls/hr Methadone HCl (Dolophine -) 15 mg PO ONCE ONE Stop: 03/31/18 10:01 Methadone HCl (Dolophine -) 5 mg PO ONCE@0600 ONE Stop: 04/02/18 06:01 Methadone HCl (Dolophine -) 10 mg PO ONCE ONE Stop: 04/01/18 10:01 Methylprednisolone Sodium Succinate (Solu-Medrol -) 40 mg IVPUSH Q6H-IV VARSHA Last Admin: 03/30/18 09:27 Dose: 40 mg Nicotine (Nicoderm Patch -) 21 mg TD DAILY VARSHA Last Admin: 03/30/18 09:26 Dose: Not Given Prochlorperazine Maleate (Compazine -) 5 mg PO Q4H PRN PRN Reason: NAUSEA AND/OR VOMITING Last Admin: 03/29/18 18:47 Dose: 5 mg - Objective Vital Signs: Vital Signs Temperature 98.2 F 03/30/18 08:35 Pulse Rate 71 03/30/18 08:35 Respiratory Rate 20 03/30/18 08:35 Blood Pressure 122/70 03/30/18 08:35 O2 Sat by Pulse Oximetry (%) 92 L 03/29/18 21:00 Constitutional: Yes: Well Nourished, Calm Eyes: Yes: WNL HENT: Yes: WNL Neck: Yes: WNL Cardiovascular: Yes: Regular Rate and Rhythm, S1, S2 Respiratory: Yes: Wheezes (bunny wheezes) Gastrointestinal: Yes: Normal Bowel Sounds, Soft Extremities: Yes: WNL Edema: No Labs: CBC, BMP - ....Imaging Cat Scan: Report Reviewed, Image Reviewed (bilateral patchy interstitial infiltrates,rml nodule,L superior mediastinal nodule) Problem List - Problems (1) Asthma with COPD with exacerbation Code(s): J44.1 - CHRONIC OBSTRUCTIVE PULMONARY DISEASE W (ACUTE) EXACERBATION; J45.901 - UNSPECIFIED ASTHMA WITH (ACUTE) EXACERBATION (2) Cocaine dependence, uncomplicated Code(s): F14.20 - COCAINE DEPENDENCE, UNCOMPLICATED (3) Tobacco abuse Code(s): Z72.0 - TOBACCO USE (4) Tobacco abuse counseling Code(s): Z71.6 - TOBACCO ABUSE COUNSELING (5) Nicotine dependence Code(s): F17.200 - NICOTINE DEPENDENCE, UNSPECIFIED, UNCOMPLICATED Qualifiers: (6) Opioid dependence with withdrawal Code(s): 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 (7) SOB (shortness of breath) Code(s): R06.02 - SHORTNESS OF BREATH Assessment/Plan IMP ASTHMA/COPD EXACERBATION SUBSTANCE ABUSE TOBACCO ABUSE NON-COMPLIANCE WITH MEDS BILATERAL INTERSTITIAL INFILTRATES LEFT SUPERIOR MEDIASTINAL NODULE ? NODE PLAN IV STEROIDS SAME DOSE INHALED BRONCHODILATORS O2 PEAK FLOW SMOKING CESSATION COUNSELED ABX THORACIC EVALUATION DR THOMPSON Problem List - Problems (1) Asthma with COPD with exacerbation Code(s): J44.1 - CHRONIC OBSTRUCTIVE PULMONARY DISEASE W (ACUTE) EXACERBATION; J45.901 - UNSPECIFIED ASTHMA WITH (ACUTE) EXACERBATION (2) Cocaine dependence, uncomplicated Code(s): F14.20 - COCAINE DEPENDENCE, UNCOMPLICATED (3) Tobacco abuse Code(s): Z72.0 - TOBACCO USE (4) Tobacco abuse counseling Code(s): Z71.6 - TOBACCO ABUSE COUNSELING (5) Nicotine dependence Code(s): F17.200 - NICOTINE DEPENDENCE, UNSPECIFIED, UNCOMPLICATED Qualifiers: (6) Opioid dependence with withdrawal Code(s): 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 (7) SOB (shortness of breath) Code(s): R06.02 - SHORTNESS OF BREATH
[2018-03-30] MEDS: diphenhydrAMINE HCL 25 MG CAPSULE (FP) PO PRN (17:25)
[2018-03-30] MEDS ORDERED: ALPRAZolam 0.25 MG TABLET PO ONE (20:45)
--- NOTE | 2018-03-30 23:22 | PN ---
Progress Note, Physician History of Present Illness: No new complaints - Current Medication List Current Medications: Active Medications Albuterol/Ipratropium (Duoneb -) 1 amp NEB Q6H PRN PRN Reason: SHORTNESS OF BREATH Last Admin: 03/30/18 03:11 Dose: 1 amp Albuterol/Ipratropium (Duoneb -) 1 amp NEB RQID VARSHA Last Admin: 03/30/18 20:50 Dose: Not Given Bacitracin (Bacitracin -) 1 applic TP BID VARSHA Last Admin: 03/30/18 21:56 Dose: 1 applic Clonidine (Catapres -) 0.1 mg PO Q12H PRN PRN Reason: WITHDRAWAL(CONT SUBST) Last Admin: 03/30/18 10:15 Dose: 0.1 mg Diphenhydramine HCl (Benadryl -) 50 mg PO Q8H PRN PRN Reason: FOR ITCHING Last Admin: 03/30/18 17:25 Dose: 50 mg Guaifenesin (Robitussin -) 10 ml PO Q6H PRN PRN Reason: COUGH Last Admin: 03/30/18 02:58 Dose: 10 ml Heparin Sodium (Porcine) (Heparin -) 5,000 unit SQ BID VARSHA Last Admin: 03/30/18 21:56 Dose: 5,000 unit Azithromycin 250 mg/ Dextrose 250 mls @ 250 mls/hr IVPB DAILY VARSHA Last Admin: 03/30/18 09:30 Dose: 250 mls/hr Ceftriaxone Sodium 1 gm/ (Dextrose) 100 mls @ 200 mls/hr IVPB DAILY [facility]; Protocol Last Admin: 03/30/18 09:26 Dose: 200 mls/hr Methadone HCl (Dolophine -) 15 mg PO ONCE ONE Stop: 03/31/18 10:01 Methadone HCl (Dolophine -) 5 mg PO ONCE@0600 ONE Stop: 04/02/18 06:01 Methadone HCl (Dolophine -) 10 mg PO ONCE ONE Stop: 04/01/18 10:01 Methylprednisolone Sodium Succinate (Solu-Medrol -) 40 mg IVPUSH Q6H-IV VARSHA Last Admin: 03/30/18 21:56 Dose: 40 mg Nicotine (Nicoderm Patch -) 21 mg TD DAILY VARSHA Last Admin: 03/30/18 09:26 Dose: Not Given Prochlorperazine Maleate (Compazine -) 5 mg PO Q4H PRN PRN Reason: NAUSEA AND/OR VOMITING Last Admin: 03/29/18 18:47 Dose: 5 mg - Objective Vital Signs: Vital Signs Temperature 98.2 F 03/30/18 14:00 Pulse Rate 80 03/30/18 14:00 Respiratory Rate 21 H 03/30/18 14:00 Blood Pressure 106/70 03/30/18 14:00 O2 Sat by Pulse Oximetry (%) 93 L 03/30/18 09:00 Neck: Yes: WNL, Supple Cardiovascular: Yes: WNL, Regular Rate and Rhythm Respiratory: Yes: Diminished Gastrointestinal: Yes: WNL, Normal Bowel Sounds, Soft Labs: CBC, BMP 03/29/18 06:00 03/29/18 06:00 Problem List - Problems (1) Asthma exacerbation Code(s): J45.901 - UNSPECIFIED ASTHMA WITH (ACUTE) EXACERBATION Qualifiers: (2) Opioid dependence with withdrawal Code(s): 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 (3) Tobacco abuse Code(s): Z72.0 - TOBACCO USE
[2018-03-31] MEDS: methylPREDNISolone NA SUCC 40 MG/1 ML VIAL IVPUSH SCH ×4 (03:35→21:53)
[2018-03-31] MEDS: cloNIDine HCL 0.1 MG TABLET PO PRN (04:35)
[2018-03-31] MEDS ORDERED: PT OWN MED DRAWER 7, Y5N ONE ×3 (05:52→09:07)
[2018-03-31] MEDS: ALBUTEROL SO4 2.5/IPRATROPIUM 0.5 INH SOL 3 ML VIAL.NEB. NEB SCH ×4 (07:20→20:41)
[2018-03-31] MEDS ORDERED: cefTRIAXone SODIUM 1 GM VIAL ONE (09:03)
[2018-03-31] MEDS ORDERED: DEXTROSE 5%-WATER 100 ML IVPB ONE (09:03)
[2018-03-31] MEDS: NICOTINE 21 MG/24 HOURS TOPICAL PATCH TD SCH (09:07)
[2018-03-31] MEDS: HEPARIN NA (PORCINE) 5,000 UNITS/ML 1ML VIAL SQ SCH ×2 (09:07→21:57)
[2018-03-31] MEDS: BACITRACIN 15 GM TUBE TOPICAL OINTMENT TP SCH ×2 (09:08→21:57)
[2018-03-31] MEDS: CEFTRIAXONE 1 GM in DEXTROSE 5%-WATER 100 ML IVPB SCH (09:08)
[2018-03-31] MEDS: AZITHROMYCIN IVPB 250 MG in DEXTROSE 5%-WATER - 250 ML IVPB SCH (09:19)
[2018-03-31] MEDS ORDERED: METHADONE HCL 5 MG TABLET PO ONE (10:00)
[2018-03-31] MEDS: PROCHLORPERAZINE MALEATE 5 MG TABLET PO PRN (12:09)
--- NOTE | 2018-03-31 13:18 | PN ---
Progress Note, Physician History of Present Illness: pulmonary slowly improving,less dyspneic - Current Medication List Current Medications: Active Medications Albuterol/Ipratropium (Duoneb -) 1 amp NEB Q6H PRN PRN Reason: SHORTNESS OF BREATH Last Admin: 03/30/18 03:11 Dose: 1 amp Albuterol/Ipratropium (Duoneb -) 1 amp NEB RQID VARSHA Last Admin: 03/31/18 11:05 Dose: 1 amp Bacitracin (Bacitracin -) 1 applic TP BID VARSHA Last Admin: 03/31/18 09:08 Dose: 1 applic Clonidine (Catapres -) 0.1 mg PO Q12H PRN PRN Reason: WITHDRAWAL(CONT SUBST) Last Admin: 03/31/18 04:35 Dose: 0.1 mg Diphenhydramine HCl (Benadryl -) 50 mg PO Q8H PRN PRN Reason: FOR ITCHING Last Admin: 03/30/18 17:25 Dose: 50 mg Guaifenesin (Robitussin -) 10 ml PO Q6H PRN PRN Reason: COUGH Last Admin: 03/30/18 02:58 Dose: 10 ml Heparin Sodium (Porcine) (Heparin -) 5,000 unit SQ BID VARSHA Last Admin: 03/31/18 09:07 Dose: 5,000 unit Azithromycin 250 mg/ Dextrose 250 mls @ 250 mls/hr IVPB DAILY VARSHA Last Admin: 03/31/18 09:19 Dose: 250 mls/hr Ceftriaxone Sodium 1 gm/ (Dextrose) 100 mls @ 200 mls/hr IVPB DAILY VARSHA; Protocol Last Admin: 03/31/18 09:08 Dose: 200 mls/hr Methadone HCl (Dolophine -) 5 mg PO ONCE@0600 ONE Stop: 04/02/18 06:01 Methadone HCl (Dolophine -) 10 mg PO ONCE ONE Stop: 04/01/18 10:01 Methylprednisolone Sodium Succinate (Solu-Medrol -) 40 mg IVPUSH Q6H-IV VARSHA Last Admin: 03/31/18 09:07 Dose: 40 mg Nicotine (Nicoderm Patch -) 21 mg TD DAILY VARSHA Last Admin: 03/31/18 09:07 Dose: 21 mg Prochlorperazine Maleate (Compazine -) 5 mg PO Q4H PRN PRN Reason: NAUSEA AND/OR VOMITING Last Admin: 03/31/18 12:09 Dose: 5 mg - Objective Vital Signs: Vital Signs Temperature 98.0 F 03/31/18 08:22 Pulse Rate 67 03/31/18 08:22 Respiratory Rate 16 03/31/18 08:22 Blood Pressure 104/56 L 03/31/18 08:22 O2 Sat by Pulse Oximetry (%) 96 03/31/18 09:00 Constitutional: Yes: Well Nourished, Calm Eyes: Yes: WNL HENT: Yes: WNL Neck: Yes: WNL Cardiovascular: Yes: Regular Rate and Rhythm, S1, S2 Respiratory: Yes: Rhonchi (bilateral wheezes and rhonchi), Wheezes Gastrointestinal: Yes: Normal Bowel Sounds, Soft Extremities: Yes: WNL Edema: No Labs: CBC, BMP Problem List - Problems (1) Asthma with COPD with exacerbation Code(s): J44.1 - CHRONIC OBSTRUCTIVE PULMONARY DISEASE W (ACUTE) EXACERBATION; J45.901 - UNSPECIFIED ASTHMA WITH (ACUTE) EXACERBATION (2) Cocaine dependence, uncomplicated Code(s): F14.20 - COCAINE DEPENDENCE, UNCOMPLICATED (3) Tobacco abuse Code(s): Z72.0 - TOBACCO USE (4) Tobacco abuse counseling Code(s): Z71.6 - TOBACCO ABUSE COUNSELING (5) Nicotine dependence Code(s): F17.200 - NICOTINE DEPENDENCE, UNSPECIFIED, UNCOMPLICATED Qualifiers: (6) Opioid dependence with withdrawal Code(s): 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 (7) SOB (shortness of breath) Code(s): R06.02 - SHORTNESS OF BREATH Assessment/Plan IMP ASTHMA/COPD EXACERBATION SUBSTANCE ABUSE TOBACCO ABUSE NON-COMPLIANCE WITH MEDS BILATERAL INTERSTITIAL INFILTRATES LEFT SUPERIOR MEDIASTINAL NODULE ? NODE,THYMOMA PLAN IV STEROIDS SAME DOSE INHALED BRONCHODILATORS O2 PEAK FLOW SMOKING CESSATION COUNSELED ABX THORACIC EVALUATION DR THOMPSON Problem List - Problems (1) Asthma with COPD with exacerbation Code(s): J44.1 - CHRONIC OBSTRUCTIVE PULMONARY DISEASE W (ACUTE) EXACERBATION; J45.901 - UNSPECIFIED ASTHMA WITH (ACUTE) EXACERBATION (2) Cocaine dependence, uncomplicated Code(s): F14.20 - COCAINE DEPENDENCE, UNCOMPLICATED (3) Tobacco abuse Code(s): Z72.0 - TOBACCO USE (4) Tobacco abuse counseling Code(s): Z71.6 - TOBACCO ABUSE COUNSELING (5) Nicotine dependence Code(s): F17.200 - NICOTINE DEPENDENCE, UNSPECIFIED, UNCOMPLICATED Qualifiers: (6) Opioid dependence with withdrawal Code(s): 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 (7) SOB (shortness of breath) Code(s): R06.02 - SHORTNESS OF BREATH
--- NOTE | 2018-03-31 15:41 | PN ---
Progress Note (short form) - Note Progress Note: Thoracic Surgery: Full consult to follow. Anterior mediastinal mass and and interstitial infiltrates. ?unrelated. Please send appropriate labs: TFT's, AchR ab, LDH, B-hcg, AFP. Will likely need outpatient PET scan.
[2018-03-31] MEDS: diphenhydrAMINE HCL 25 MG CAPSULE (FP) PO PRN (21:53)
--- NOTE | 2018-03-31 23:35 | PN ---
Progress Note, Physician History of Present Illness: Pt still feeling SOB w/ tightness - Current Medication List Current Medications: Active Medications Albuterol/Ipratropium (Duoneb -) 1 amp NEB Q6H PRN PRN Reason: SHORTNESS OF BREATH Last Admin: 03/30/18 03:11 Dose: 1 amp Albuterol/Ipratropium (Duoneb -) 1 amp NEB RQID VARSHA Last Admin: 03/31/18 20:41 Dose: 1 amp Bacitracin (Bacitracin -) 1 applic TP BID VARSHA Last Admin: 03/31/18 21:57 Dose: 1 applic Clonidine (Catapres -) 0.1 mg PO Q12H PRN PRN Reason: WITHDRAWAL(CONT SUBST) Last Admin: 03/31/18 04:35 Dose: 0.1 mg Diphenhydramine HCl (Benadryl -) 50 mg PO Q8H PRN PRN Reason: FOR ITCHING Last Admin: 03/31/18 21:53 Dose: 50 mg Guaifenesin (Robitussin -) 10 ml PO Q6H PRN PRN Reason: COUGH Last Admin: 03/30/18 02:58 Dose: 10 ml Heparin Sodium (Porcine) (Heparin -) 5,000 unit SQ BID VARSHA Last Admin: 03/31/18 21:57 Dose: 5,000 unit Azithromycin 250 mg/ Dextrose 250 mls @ 250 mls/hr IVPB DAILY VARSHA Last Admin: 03/31/18 09:19 Dose: 250 mls/hr Ceftriaxone Sodium 1 gm/ (Dextrose) 100 mls @ 200 mls/hr IVPB DAILY VARSHA; Protocol Last Admin: 03/31/18 09:08 Dose: 200 mls/hr Methadone HCl (Dolophine -) 5 mg PO ONCE@0600 ONE Stop: 04/02/18 06:01 Methadone HCl (Dolophine -) 10 mg PO ONCE ONE Stop: 04/01/18 10:01 Methylprednisolone Sodium Succinate (Solu-Medrol -) 40 mg IVPUSH Q6H-IV VARSHA Last Admin: 03/31/18 21:53 Dose: 40 mg Nicotine (Nicoderm Patch -) 21 mg TD DAILY VARSHA Last Admin: 03/31/18 09:07 Dose: 21 mg Prochlorperazine Maleate (Compazine -) 5 mg PO Q4H PRN PRN Reason: NAUSEA AND/OR VOMITING Last Admin: 03/31/18 12:09 Dose: 5 mg - Objective Vital Signs: Vital Signs Temperature 99.2 F 03/31/18 18:00 Pulse Rate 103 H 03/31/18 18:00 Respiratory Rate 19 03/31/18 18:00 Blood Pressure 138/79 03/31/18 18:00 O2 Sat by Pulse Oximetry (%) 96 03/31/18 09:00 HENT: Yes: WNL Neck: Yes: WNL, Supple Cardiovascular: Yes: WNL, Regular Rate and Rhythm Respiratory: Yes: Wheezes Gastrointestinal: Yes: WNL, Normal Bowel Sounds, Soft Labs: CBC, BMP 03/29/18 06:00 03/29/18 06:00 Problem List - Problems (1) Asthma exacerbation Assessment/Plan: Cont IV solumedrol and taper as possible IV antibxs Cont nebulizers CT scan chest was abnormal Will get CT consult Code(s): J45.901 - UNSPECIFIED ASTHMA WITH (ACUTE) EXACERBATION Qualifiers: (2) Opioid dependence with withdrawal Assessment/Plan: Cont methadone taper Code(s): 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 (3) Tobacco abuse Code(s): Z72.0 - TOBACCO USE
[2018-04-01] MEDS ORDERED: PT OWN MED DRAWER 7, Y5N ONE (02:42)
[2018-04-01] MEDS: cloNIDine HCL 0.1 MG TABLET PO PRN (02:44)
[2018-04-01] MEDS: methylPREDNISolone NA SUCC 40 MG/1 ML VIAL IVPUSH SCH ×4 (03:58→21:26)
[2018-04-01] MEDS: ALBUTEROL SO4 2.5/IPRATROPIUM 0.5 INH SOL 3 ML VIAL.NEB. NEB SCH ×4 (07:20→21:05)
[2018-04-01] MEDS ORDERED: cefTRIAXone SODIUM 1 GM VIAL ONE (08:58)
[2018-04-01] MEDS ORDERED: DEXTROSE 5%-WATER 100 ML IVPB ONE (08:58)
[2018-04-01] MEDS: BACITRACIN 15 GM TUBE TOPICAL OINTMENT TP SCH ×2 (09:12→21:26)
[2018-04-01] MEDS: CEFTRIAXONE 1 GM in DEXTROSE 5%-WATER 100 ML IVPB SCH (09:12)
[2018-04-01] MEDS: HEPARIN NA (PORCINE) 5,000 UNITS/ML 1ML VIAL SQ SCH ×2 (09:12→21:26)
[2018-04-01] MEDS: diphenhydrAMINE HCL 25 MG CAPSULE (FP) PO PRN ×2 (09:14→21:26)
[2018-04-01] MEDS: NICOTINE 21 MG/24 HOURS TOPICAL PATCH TD SCH (09:15)
[2018-04-01] MEDS: AZITHROMYCIN IVPB 250 MG in DEXTROSE 5%-WATER - 250 ML IVPB SCH (10:00)
[2018-04-01] MEDS ORDERED: METHADONE HCL 10 MG TABLET PO ONE (10:00)
--- NOTE | 2018-04-01 13:56 | PN ---
Progress Note (short form) - Note Progress Note: PULMONARY States breathing is improving. Less cough and wheezing. Vital Signs Period Temp Pulse Resp BP Sys/Devries Pulse Ox Last 24 Hr 97.5 F-99.2 F 66-103 17-20 123-138/71-79 95-96 Gen: NAD at rest Heart: RRR Lung: scattered rhonchi Abd: soft, nontender Ext: no edema CBC, BMP 03/29/18 06:00 03/29/18 06:00 Active Medications Albuterol/Ipratropium (Duoneb -) 1 amp NEB Q6H PRN PRN Reason: SHORTNESS OF BREATH Last Admin: 03/30/18 03:11 Dose: 1 amp Albuterol/Ipratropium (Duoneb -) 1 amp NEB RQID VARSHA Last Admin: 04/01/18 11:07 Dose: Not Given Bacitracin (Bacitracin -) 1 applic TP BID VARSHA Last Admin: 04/01/18 09:12 Dose: 1 applic Clonidine (Catapres -) 0.1 mg PO Q12H PRN PRN Reason: WITHDRAWAL(CONT SUBST) Last Admin: 04/01/18 02:44 Dose: 0.1 mg Diphenhydramine HCl (Benadryl -) 50 mg PO Q8H PRN PRN Reason: FOR ITCHING Last Admin: 04/01/18 09:14 Dose: 50 mg Guaifenesin (Robitussin -) 10 ml PO Q6H PRN PRN Reason: COUGH Last Admin: 03/30/18 02:58 Dose: 10 ml Heparin Sodium (Porcine) (Heparin -) 5,000 unit SQ BID VARSHA Last Admin: 04/01/18 09:12 Dose: 5,000 unit Azithromycin 250 mg/ Dextrose 250 mls @ 250 mls/hr IVPB DAILY VARSHA Last Admin: 04/01/18 10:00 Dose: 250 mls/hr Ceftriaxone Sodium 1 gm/ (Dextrose) 100 mls @ 200 mls/hr IVPB DAILY VARSHA; Protocol Last Admin: 04/01/18 09:12 Dose: 200 mls/hr Methadone HCl (Dolophine -) 5 mg PO ONCE@0600 ONE Stop: 04/02/18 06:01 Methylprednisolone Sodium Succinate (Solu-Medrol -) 40 mg IVPUSH Q6H-IV VARSHA Last Admin: 04/01/18 09:12 Dose: 40 mg Nicotine (Nicoderm Patch -) 21 mg TD DAILY VARSHA Last Admin: 04/01/18 09:15 Dose: Not Given Prochlorperazine Maleate (Compazine -) 5 mg PO Q4H PRN PRN Reason: NAUSEA AND/OR VOMITING Last Admin: 03/31/18 12:09 Dose: 5 mg A/P Acute Asthma/COPD Exacerbation Substance Abuse Anterior Mediastinal Mass Smoker - will decrease medrol to 12h - if continues to improve, can change steroids to PO prednisone 40mg daily and taper as outpt - smoking cessation - will need PET scan as outpt - DVT prophylaxis
--- NOTE | 2018-04-01 19:28 | PN ---
Progress Note, Physician History of Present Illness: Pt feeling better - Current Medication List Current Medications: Active Medications Albuterol/Ipratropium (Duoneb -) 1 amp NEB Q6H PRN PRN Reason: SHORTNESS OF BREATH Last Admin: 03/30/18 03:11 Dose: 1 amp Albuterol/Ipratropium (Duoneb -) 1 amp NEB RQID VARSHA Last Admin: 04/01/18 15:41 Dose: Not Given Bacitracin (Bacitracin -) 1 applic TP BID VARSHA Last Admin: 04/01/18 09:12 Dose: 1 applic Clonidine (Catapres -) 0.1 mg PO Q12H PRN PRN Reason: WITHDRAWAL(CONT SUBST) Last Admin: 04/01/18 02:44 Dose: 0.1 mg Diphenhydramine HCl (Benadryl -) 50 mg PO Q8H PRN PRN Reason: FOR ITCHING Last Admin: 04/01/18 09:14 Dose: 50 mg Guaifenesin (Robitussin -) 10 ml PO Q6H PRN PRN Reason: COUGH Last Admin: 03/30/18 02:58 Dose: 10 ml Heparin Sodium (Porcine) (Heparin -) 5,000 unit SQ BID VARSHA Last Admin: 04/01/18 09:12 Dose: 5,000 unit Azithromycin 250 mg/ Dextrose 250 mls @ 250 mls/hr IVPB DAILY VARSHA Last Admin: 04/01/18 10:00 Dose: 250 mls/hr Ceftriaxone Sodium 1 gm/ (Dextrose) 100 mls @ 200 mls/hr IVPB DAILY COUNTS INCLUDE 234 BEDS AT THE [facility]; Protocol Last Admin: 04/01/18 09:12 Dose: 200 mls/hr Methadone HCl (Dolophine -) 5 mg PO ONCE@0600 ONE Stop: 04/02/18 06:01 Methylprednisolone Sodium Succinate (Solu-Medrol -) 40 mg IVPUSH Q6H-IV VARSHA Last Admin: 04/01/18 14:31 Dose: 40 mg Nicotine (Nicoderm Patch -) 21 mg TD DAILY VARSHA Last Admin: 04/01/18 09:15 Dose: Not Given Prochlorperazine Maleate (Compazine -) 5 mg PO Q4H PRN PRN Reason: NAUSEA AND/OR VOMITING Last Admin: 03/31/18 12:09 Dose: 5 mg - Objective Vital Signs: Vital Signs Temperature 97.5 F L 04/01/18 08:49 Pulse Rate 87 04/01/18 08:49 Respiratory Rate 20 04/01/18 08:49 Blood Pressure 127/78 04/01/18 08:49 O2 Sat by Pulse Oximetry (%) 95 04/01/18 09:00 Neck: Yes: WNL, Supple Cardiovascular: Yes: WNL, Regular Rate and Rhythm Respiratory: Yes: Wheezes Gastrointestinal: Yes: WNL, Normal Bowel Sounds, Soft Labs: CBC, BMP 03/29/18 06:00 03/29/18 06:00 Problem List - Problems (1) Asthma exacerbation Assessment/Plan: Cont IV solumedrol and taper as possible IV antibxs Cont nebulizers Code(s): J45.901 - UNSPECIFIED ASTHMA WITH (ACUTE) EXACERBATION Qualifiers: (2) Mediastinal mass Assessment/Plan: W/U in progress Differential includes thymoma/lymphoma/adenopathy PET scan as outpt Code(s): J98.59 - OTHER DISEASES OF MEDIASTINUM, NOT ELSEWHERE CLASSIFIED (3) Opioid dependence with withdrawal Assessment/Plan: Cont methadone taper Code(s): 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 (4) Tobacco abuse Code(s): Z72.0 - TOBACCO USE
--- NOTE | 2018-04-01 20:36 | CONSULT ---
Consult Consult Specialty:: Thoracic Referred by:: Dr. Thomas Reason for Consultation:: Mediastinal adenopathy - History of Present Illness Chief Complaint: cough History of Present Illness: 47M who presented with worsening cough and wheezing despite history of asthma. Admitted for exacerbation and imaging showed inflammatory lesions and new adenopathy versus thymoma in anterior superior mediastinum. No fevers, chills, n /s. No weight loss. No diplopia. Responding to steroids. - History Source History Provided By: Patient Limitations to Obtaining History: No Limitations - Past Medical History Pulmonary: Yes: Asthma, COPD Psych: Yes: Addictions (heroin) - Past Surgical History Past Surgical History: Yes: None - Alcohol/Substance Use Hx Alcohol Use: No History of Substance Use: reports: Heroin - Smoking History Smoking history: Current some day smoker Have you smoked in the past 12 months: Yes Aproximately how many cigarettes per day: 4 If you are a former smoker, when did you quit?: 2014 - Social History ADL: Independent Occupation: Unemployed History of Recent Travel: No Home Medications - Allergies Allergies/Adverse Reactions: Allergies Allergy/AdvReac Type Severity Reaction Status Date / Time No Known Allergies Allergy Verified 03/28/18 03:01 - Home Medications Home Medications: Ambulatory Orders Unobtainable 03/28/18 Home Medications (free text): Inhalers Family Disease History - Family Disease History Family Disease History: Diabetes: Mother, CA: Father (.) Review of Systems - Review of Systems Constitutional: reports: No Symptoms Respiratory: reports: Cough, Wheezing Physical Exam Vital Signs: Vital Signs Temperature 97.5 F L 04/01/18 08:49 Pulse Rate 87 04/01/18 08:49 Respiratory Rate 20 04/01/18 08:49 Blood Pressure 127/78 04/01/18 08:49 O2 Sat by Pulse Oximetry (%) 95 04/01/18 09:00 Cardiovascular: Yes: Regular Rate and Rhythm Respiratory: Yes: Regular Extremities: Yes: WNL Labs: CBC, BMP 03/29/18 06:00 03/29/18 06:00 Imaging - Results Cat Scan: Image Reviewed Problem List - Problems (1) Mediastinal adenopathy Code(s): R59.0 - LOCALIZED ENLARGED LYMPH NODES (2) Asthma with COPD with exacerbation Code(s): J44.1 - CHRONIC OBSTRUCTIVE PULMONARY DISEASE W (ACUTE) EXACERBATION; J45.901 - UNSPECIFIED ASTHMA WITH (ACUTE) EXACERBATION (3) Asthma exacerbation Code(s): J45.901 - UNSPECIFIED ASTHMA WITH (ACUTE) EXACERBATION Qualifiers: Assessment/Plan New mediastinal lesions: Diff includes adenopathy, thymoma, lymphoma. Recommend PET scan to assess for best area to biopsy. AP window could be biopsied by VATS but anterior superior mediastinal lesion more difficult to biopsy. Not good target for CT guidance (discussed with Dr. Ryan).
[2018-04-02] MEDS: methylPREDNISolone NA SUCC 40 MG/1 ML VIAL IVPUSH SCH ×3 (03:18→14:25)
[2018-04-02] MEDS ORDERED: PT OWN MED DRAWER 7, Y5N ONE (05:38)
[2018-04-02] MEDS: cloNIDine HCL 0.1 MG TABLET PO PRN (05:39)
[2018-04-02] MEDS ORDERED: METHADONE HCL 5 MG TABLET PO ONE (06:00)
[2018-04-02 06:17] VITALS: BP 122/76; PULSE 67; TEMP 97.5
[2018-04-02] MEDS: ALBUTEROL SO4 2.5/IPRATROPIUM 0.5 INH SOL 3 ML VIAL.NEB. NEB SCH ×3 (08:05→15:17)
[2018-04-02] MEDS: BACITRACIN 15 GM TUBE TOPICAL OINTMENT TP SCH (09:31)
[2018-04-02] MEDS: HEPARIN NA (PORCINE) 5,000 UNITS/ML 1ML VIAL SQ SCH (09:34)
[2018-04-02] MEDS: NICOTINE 21 MG/24 HOURS TOPICAL PATCH TD SCH (09:35)
[2018-04-02] MEDS: AZITHROMYCIN IVPB 250 MG in DEXTROSE 5%-WATER - 250 ML IVPB SCH (09:36)
[2018-04-02] MEDS ORDERED: cefTRIAXone SODIUM 1 GM VIAL ONE (09:45)
[2018-04-02] MEDS: CEFTRIAXONE 1 GM in DEXTROSE 5%-WATER 100 ML IVPB SCH (10:37)
== END 2018-04-02 16:35 | disposition home or self-care (01) | DRG 140 ==
LOC: JER 02:44 → JERBED 06:16 → OBSVTOIN 14:02 → J6S 15:52
PROVIDERS: ADMIT Internal Medicine; ATTEND Internal Medicine
DX: J44.1 Chronic obstructive pulmonary disease with (acute) exacerbation (principal); R59.0 Localized enlarged lymph nodes; J98.59 Other diseases of mediastinum, not elsewhere classified; F11.23 Opioid dependence with withdrawal; F14.20 Cocaine dependence, uncomplicated; F17.210 Nicotine dependence, cigarettes, uncomplicated; Z91.14 Patient's other noncompliance with medication regimen; Z71.6 Tobacco abuse counseling
CPT/HCPCS: 36415; 71045-TC-FY; 71250-TC; 80053; 80307; 81003; 83735; 84484; 85025; 93005; 93010; 94640; 99283-25; G0378; J0735; J1644

== ENCOUNTER 2018-04-22 08:44 | Inpatient (IN) | payer OTHER ==
--- NOTE | 2018-04-22 09:09 | PDOC ---
Attending Attestation - Resident Resident Name: Jennifer Fletcher - HPI HPI: 04/22/18 11:04 PT presents to the ED complaining of wheezing and shortness of breath that started this AM and is consistent with prior asthma exacerbations. History of asthma and heroin use with last admission one month ago. Denies history of ICU admissions or intubations. Denies fever or productive cough. Reports some relief with nebs by EMS. - Physicial Exam PE: 04/22/18 11:06 Pt is sleeping but easily arousable. Appears mildly intoxicated. Speaking in complete sentences without tachypnea or accessory muscle use. - Medical Decision Making 04/22/18 11:13 Patient presents to the ED complaining of wheezing and shortness of breath consistent with prior asthma attacks. Most likely asthma. Will treat with nebs and steroids and reassess.
[2018-04-22] MEDS ORDERED: predniSONE 20 MG TABLET (UD) PO ONE (09:42)
[2018-04-22] MEDS ORDERED: ALBUTEROL SO4 2.5/IPRATROPIUM 0.5 INH SOL 3 ML VIAL.NEB. NEB ONE ×4 (09:43→13:18)
--- NOTE | 2018-04-22 09:45 | PDOC ---
History of Present Illness - General Chief Complaint: Shortness of Breath Stated Complaint: SOB Time Seen by Provider: 04/22/18 08:49 History Source: Patient Exam Limitations: No Limitations - History of Present Illness Initial Comments: 04/22/18 09:00 47 YOM with h/o asthma, COPD, heroin and cocaine use, and mediastinal mass detected on imaging while inpatient here at [facility] in 03/2018 (has PET appointment for 04/24/18 but otherwise has not had any other followup) who was BIBEMS for 2 hours of SOB and wheezing like his normal asthma exacerbation. He took his normal home rescue medications which did not work, so he called 911. EMS administered combivent and regular albuterol MDI en route with partial relief. They measured his vitals which were all wnl for the duration of their care with the exception of BP which was initially in the 170s systolic. The patient denies any other new symptoms today and states this fees exactly like his prior asthma exacerbation. No f/c/n/v/d/c, leg pain/swelling, prolonged immobility, headache, LOC, dizziness, etc. Past History - Past Medical History Allergies/Adverse Reactions: Allergies Allergy/AdvReac Type Severity Reaction Status Date / Time No Known Allergies Allergy Verified 04/22/18 08:48 Home Medications: Ambulatory Orders Albuterol 2.5/Ipratropium 0.5 [Duoneb -] 1 amp NEB Q6H PRN amp 04/02/18 Anemia: No Asthma: Yes Cancer: No Cardiac Disorders: No CVA: No COPD: No CHF: No DVT: No Dementia: No Diabetes: No GI Disorders: No Disorders: No HTN: No Hypercholesterolemia: No Kidney Stones: No Liver Disease: No Seizures: No Thyroid Disease: No - Surgical History Abdominal Surgery: No Appendectomy: No Cardiac Surgery: No Cholecystectomy: No Lung Surgery: No Neurologic Surgery: No Orthopedic Surgery: No - Reproductive History Testicular Surgery: No - Immunization History Td Vaccination: Yes Immunization Up to Date: Yes - Suicide/Smoking/Psychosocial Hx Smoking Status: Yes Smoking History: Never smoked Years of Tobacco Use: 40 Have you smoked in the past 12 months: Yes Number of Cigarettes Smoked Daily: 4 If you are a former smoker, when did you quit?: 2014 Cigars Per Day: 0 'Breaking Loose' booklet given: 11/08/17 Hx Alcohol Use: No Drug/Substance Use Hx: Yes Substance Use Type: Cocaine, Heroin Hx Substance Use Treatment: Yes (sj 03/11/17 to 03/13/17 not completed) Respiratory Specific PMHX - Complaint Specific PMHX TB (Tuberculosis): No Review of Systems - Review of Systems Able to Perform ROS?: Yes Comments:: 04/22/18 09:43 GEN: no fever, chills, malaise, generalized weakness, or weight change HEENT: no ear pain, sore throat, vision change, or eye pain CV: no chest pain, palpitations, lightheadedness, syncope, or edema RESP: wheezing, SOB, no cough GI: no abdominal pain, nausea, vomiting, diarrhea, constipation, or white/black/ bloody stool : no dysuria, hematuria, incontinence, retention, bleeding, or discharge MSK: no neck/back pain, muscle weakness/pain, or joint swelling/pain NEURO: no headache, seizure, vertigo, numbness, tingling, or focal weakness PSYCH: no substance use, no behavior change SKIN: no jaundice, no rash ROS otherwise negative except as noted in HPI *Physical Exam - Vital Signs Last Vital Signs Temp Pulse Resp BP Pulse Ox 97.3 F L 77 20 138/77 100 04/22/18 08:47 04/22/18 08:47 04/22/18 08:47 04/22/18 08:47 04/22/18 08:47 - Physical Exam Comments: 04/22/18 09:44 GENERAL: a bit tired but well-appearing, A/Ox4, no distress, answers questions appropriately HEENT: PERRLA, EOMI, moist mucous membranes NECK/BACK: no spinal stepoff or deformity, no hematoma, full ROM, neck supple CARDIOVASCULAR: regular rate/rhythm, normal S1S2, no MGR, strong peripheral pulses, capillary refill <2 seconds, extremities wwp, no edema LUNGS/RESPIRATORY: no respiratory distress, speaking full sentences, bilateral expiratory wheezes and rhonchi and mildly diffusely diminished breath sounds GI/ABDOMEN: symmetric [id number], normoactive BS, soft, no ttp, no midline pulsatile masses : no CVA tenderness EXTREMITIES: no muscle atrophy, no acute deformity, no edema SKIN: warm and dry, no pallor, no jaundice, no rash, no bruising, no skin breakdown, no cuts, no lesions NEUROLOGICAL: GCS 15, CN II-XII grossly intact, 5/5 strength proximally and distally, no facial droop Moderate Sedation - Procedure Monitoring Vital Signs: Procedure Monitoring Vital Signs Temperature 97.3 F L 04/22/18 08:47 Pulse Rate 77 04/22/18 08:47 Respiratory Rate 20 04/22/18 08:47 Blood Pressure 138/77 04/22/18 08:47 O2 Sat by Pulse Oximetry (%) 100 04/22/18 08:47 ED Treatment Course - LABORATORY CBC & Chemistry Diagram: 04/22/18 12:58 04/22/18 12:58 Medical Decision Making - Medical Decision Making 04/22/18 09:46 Pt with h/o asthma p/w respiratory distress like their prior asthma exacerbation. Vital Signs 04/22/18 04/22/18 08:45 08:47 Temperature 97.3 F L Pulse Rate 77 Respiratory 20 Rate Blood Pressure 138/77 O2 Sat by Pulse 93 L 100 Oximetry (%) Exam: As noted in Physical Exam section. DDX IBNLT: asthma exacerbation, less likely COPD, bronchitis, viral URI, influenza, PNA, PTX, CHF, ACS, pericarditis, etc W/U ordered: CBCD CMP Mg Phos CXR EKG TX ordered: DuoNebs SoluMedrol (if likely admission) Decadron (if likely going home) Magnesium Will consider BiPAP, IM terbutaline, Magnesium 2 GM IV over 20 min if necessary EKG: Reviewed; results as noted in ECG Review section. CXR: Vital Signs Temperature 97.3 F L 04/22/18 08:47 Pulse Rate 90 04/22/18 15:26 Respiratory Rate 15 04/22/18 15:26 Blood Pressure 143/77 04/22/18 15:26 O2 Sat by Pulse Oximetry (%) 96 04/22/18 15:26 Reassessment: Repeat VS: ADMIT The Pts symptoms persist despite ED treatments. They require further hospital observation, workup, and treatment. I spoke with Dr. Diaz, patient admitted to IP Med/Surg. Decision to Admit order corrected with Dr. Diaz's name. *DC/Admit/Observation/Transfer Diagnosis at time of Disposition: Asthma exacerbation Qualifiers: Asthma severity: moderate Asthma persistence: persistent Qualified Code(s): J45.41 - Moderate persistent asthma with (acute) exacerbation - Discharge Dispostion Condition at time of disposition: Guarded Decision to Admit order: Yes - Referrals - Patient Instructions - Post Discharge Activity
[2018-04-22] MEDS ORDERED: predniSONE 20 MG TABLET (UD) ONE (09:51)
[2018-04-22] MEDS ORDERED: MAGNESIUM SULF 50% (8.12 MEQ/2 ML-1 GM VIAL) IVPB ONE (12:16)
[2018-04-22] MEDS ORDERED: MAGNESIUM 1GM/D5W - 2 GM/200 ML IVPB IVPB ONE (12:54)
[2018-04-22 13:53] LABS: ALBUMIN 3.3 g/dl (3.4-5.0); ALK PHOS 99 U/L (45-117); ANION GAP 8 MMOL/L (8-16); BILIRUBIN,TOTAL 0.2 mg/dL (0.2-1); BLOOD UREA NITROGEN 12 mg/dL (7-18); CALCIUM 8.4 mg/dL (8.5-10.1); CHLORIDE 104 mmol/L (98-107); CO2 25 mmol/L (21-32); CREATININE 0.9 mg/dL (0.55-1.3); GLUCOSE,RANDOM 165 mg/dL (74-106); POTASSIUM 3.7 mmol/L (3.5-5.1); SGOT/AST 16 U/L (15-37); SGPT/ALT 24 U/L (13-61); SODIUM 137 mmol/L (136-145); TOT PROT 6.5 g/dl (6.4-8.2)
[2018-04-22 14:40] LABS: BASO % 0.3 % (0-2.0); EOS % 0.9 % (0-4.5); HEMATOCRIT 37.2 % (35.4-49); HEMOGLOBIN 11.9 GM/dL (11.7-16.9); LYMPH % 4.7 % (8-40); MCH 25.9 pg (25.7-33.7); MCHC 32.1 g/dl (32.0-35.9); MEAN CELL VOLUME 80.7 fl (80-96); MEAN PLT VOLUME 7.6 fl (7.5-11.1); MONO % 1.4 % (3.8-10.2); NEUT % 92.7 % (42.8-82.8); PLATELET COUNT 287 K/MM3 (134-434); RBC 4.61 M/mm3 (4.00-5.60); RDW 15.9 % (11.9-15.9); WHITE BLOOD COUNT 6.9 K/mm3 (4.0-10.0)
[2018-04-22 15:54] LABS: ANISOCYTOSIS 0; MACROCYTOSIS 0; PLATELET ESTIMATE NORMAL
[2018-04-22] MEDS ORDERED: METHADONE HCL 10 MG TABLET PO ONE (17:10)
[2018-04-22] MEDS ORDERED: METHADONE HCL 10 MG TABLET ONE (17:33)
[2018-04-22 18:19] VITALS: BMI 25.3
[2018-04-22] MEDS ORDERED: ALBUTEROL SO4 2.5/IPRATROPIUM 0.5 INH SOL 3 ML VIAL.NEB. NEB PRN (23:26)
[2018-04-23] MEDS: methylPREDNISolone NA SUCC 40 MG/1 ML VIAL IVPUSH SCH ×4 (01:19→17:12)
[2018-04-23] MEDS ORDERED: METHADONE HCL 10 MG TABLET PO SCH (06:00)
[2018-04-23] MEDS ORDERED: METHADONE HCL 10 MG TABLET PO ONE (06:00)
[2018-04-23] MEDS: HEPARIN NA (PORCINE) 5,000 UNITS/ML 1ML VIAL SQ SCH ×2 (10:43→22:31)
--- NOTE | 2018-04-23 13:23 | CON.PULM ---
Consult Consult Specialty:: PULM/CCM Referred by:: [facility] Reason for Consultation:: SOB - History of Present Illness Chief Complaint: SOB History of Present Illness: 47 M, supposed asthma, most likely COPD from previous smoking history, heroin and cocaine abuse (last use was snorting of heroin last night prior to admission ) . Patient was admitted 03/2019 and found to have a 2.3 x 1.7 x 1.1 cm soft tissue density with the left superior mediastinum / and several non specific lung nodules that are new from his previous CT imaging in 2011. He was scheduled for PET imaging tomorrow (cannot recall where). No travel history or sick contacts. No hemoptysis or night sweats. - History Source History Provided By: Patient Limitations to Obtaining History: No Limitations - Past Medical History Pulmonary: Yes: Asthma, Bronchitis, COPD. No: Previously Intubated, Pulmonary Embolus, Pulmonary Fibrosis, Sleep Apnea Psych: Yes: Addictions (heroin) - Past Surgical History Past Surgical History: Yes: None - Alcohol/Substance Use Hx Alcohol Use: Yes (beer) History of Substance Use: reports: Heroin - Smoking History Smoking history: Former smoker Have you smoked in the past 12 months: No Aproximately how many cigarettes per day: 4 If you are a former smoker, when did you quit?: 2014 - Social History ADL: Independent Occupation: Unemployed History of Recent Travel: No Home Medications - Allergies Allergies/Adverse Reactions: Allergies Allergy/AdvReac Type Severity Reaction Status Date / Time No Known Allergies Allergy Verified 04/22/18 08:48 - Home Medications Home Medications: Ambulatory Orders Albuterol 2.5/Ipratropium 0.5 [Duoneb -] 1 amp NEB Q6H PRN amp 04/02/18 Family Disease History - Family Disease History Family Disease History: Diabetes: Mother, CA: Father (.) Review of Systems - Review of Systems Constitutional: reports: Malaise. denies: Chills, Fever, Night Sweats Eyes: reports: No Symptoms HENT: reports: No Symptoms Neck: reports: No Symptoms Cardiovascular: reports: Shortness of Breath. denies: Chest Pain, Edema, Palpitations Respiratory: reports: Cough, SOB, SOB on Exertion, Wheezing. denies: Hemoptysis , Snoring Gastrointestinal: reports: No Symptoms Genitourinary: reports: No Symptoms Breasts: reports: No Symptoms Reported Musculoskeletal: reports: No Symptoms Integumentary: reports: No Symptoms Neurological: reports: No Symptoms Endocrine: reports: No Symptoms Hematology/Lymphatic: reports: No Symptoms Psychiatric: reports: No Symptoms Physical Exam Vital Sings: Vital Signs Temperature 97.3 F L 04/23/18 10:43 Pulse Rate 74 04/23/18 10:43 Respiratory Rate 18 04/23/18 10:43 Blood Pressure 130/61 04/23/18 10:43 O2 Sat by Pulse Oximetry (%) 98 04/23/18 09:00 Constitutional: Yes: No Distress, Calm Eyes: Yes: Conjunctiva Clear, EOM Intact HENT: Yes: Atraumatic, Normocephalic Neck: Yes: Supple, Trachea Midline Cardiovascular: Yes: Regular Rate and Rhythm Respiratory: Yes: Cough, Diminished, Rhonchi. No: Accessory Muscle Use, Rales, SOB, SOB on Exertion, Stridor, Tachypnea, Wheezes ...Inspection: Yes: WNL ...Clubbing: No Gastrointestinal: Yes: Normal Bowel Sounds, Soft Renal/: Yes: WNL Musculoskeletal: Yes: WNL Extremities: Yes: WNL Edema: No Peripheral Pulses WNL: Yes Integumentary: Yes: WNL Neurological: Yes: WNL, Alert, Oriented ...Motor Strength: WNL Psychiatric: Yes: WNL, Alert, Oriented Labs: CBC, BMP 04/22/18 12:58 04/22/18 12:58 Imaging - Results Chest X-ray: Report Reviewed, Image Reviewed Problem List - Problems (1) Asthma exacerbation Code(s): J45.901 - UNSPECIFIED ASTHMA WITH (ACUTE) EXACERBATION Qualifiers: Asthma severity: moderate Asthma persistence: persistent Qualified Code(s ): J45.41 - Moderate persistent asthma with (acute) exacerbation (2) Heroin abuse Code(s): F11.10 - OPIOID ABUSE, UNCOMPLICATED (3) Mediastinal adenopathy Code(s): R59.0 - LOCALIZED ENLARGED LYMPH NODES (4) Mediastinal mass Code(s): J98.59 - OTHER DISEASES OF MEDIASTINUM, NOT ELSEWHERE CLASSIFIED (5) Nicotine dependence Code(s): F17.200 - NICOTINE DEPENDENCE, UNSPECIFIED, UNCOMPLICATED Qualifiers: (6) SOB (shortness of breath) Code(s): R06.02 - SHORTNESS OF BREATH (7) Tobacco abuse Code(s): Z72.0 - TOBACCO USE Assessment/Plan Acute bronchospasm due to heroin abuse Can continue Medrol for today and change to Prednisone 40mg OD x 5 days. If he feels improved by tonight, there is no Pulmonary contraindication for D/C. No smoking / illicit substances again advised No indication for ABX at this time Patient apparently has a PET scan scheduled for tomorrow, he should be stable for D/C to have this test done. Patient with clear compliance issues and I advised him the importance of follow up as the there is a possibility that the mediastinal mass is malignant in nature. Dr Grover
[2018-04-23] MEDS: ALBUTEROL SO4 2.5/IPRATROPIUM 0.5 INH SOL 3 ML VIAL.NEB. NEB SCH ×2 (13:30→20:41)
--- NOTE | 2018-04-23 16:42 | PN ---
Progress Note, Physician History of Present Illness: Pt seen and examined See note of 04/23/18 for complete H&P - Current Medication List Current Medications: Active Medications Albuterol/Ipratropium (Duoneb -) 1 amp NEB Q6H PRN PRN Reason: SHORTNESS OF BREATH Albuterol/Ipratropium (Duoneb -) 1 amp NEB RTID [facility] Last Admin: 04/23/18 13:30 Dose: 1 amp Heparin Sodium (Porcine) (Heparin -) 5,000 unit SQ BID [facility] Last Admin: 04/23/18 10:43 Dose: 5,000 unit Methadone HCl (Dolophine -) 20 mg PO DAILY@0600 [facility] Methylprednisolone Sodium Succinate (Solu-Medrol -) 40 mg IVPUSH Q8H-IV [facility] Last Admin: 04/23/18 10:38 Dose: 40 mg - Objective Vital Signs: Vital Signs Temperature 98.1 F 04/23/18 14:36 Pulse Rate 89 04/23/18 14:36 Respiratory Rate 18 04/23/18 14:36 Blood Pressure 110/75 04/23/18 14:36 O2 Sat by Pulse Oximetry (%) 98 04/23/18 09:00 Labs: CBC, BMP 04/22/18 12:58 04/22/18 12:58
--- NOTE | 2018-04-23 19:22 | PN ---
[facility] COWS - Scale Resting Pulse: 0= MO 80 or Below Sweatin= Chills/Flushing Restless Observation: 1= Difficult to Sit Still Pupil Size: 0= Normal to Room Light Bone or Joint Aches: 1= Mild Discomfort Runny Nose/ Eye Tearin= Constantly Teary/Runny GI Upset > 30mins: 1= Stomach Cramp Tremor Observation of Outstretched Hands: 0= None Yawning Observation: 0= None Anxiety or Irritability: 4=Extreme Anxiety Goose Flesh Skin: 0=Smooth Skin COWS Score: 12 [facility] Progress Note (SOAP) Subjective: patient referred for consultation , reports use of heroin 10 bags / day via inhalation x 9 years ,denies IVDU , most recent admission march 2018 for asthma exacerbation, hospitalized since yesterday for same, reports relapse immediately after d/c from the hospital in March 2018 Active Medications Generic Name Dose Route Start Last Admin Trade Name Freq PRN Reason Stop Dose Admin Albuterol/Ipratropium 1 amp 04/22/18 23:26 Duoneb - NEB Q6H PRN SHORTNESS OF BREATH Albuterol/Ipratropium 1 amp 04/23/18 14:00 04/23/18 13:30 Duoneb - NEB 1 amp RTID [facility] Administration Heparin Sodium (Porcine) 5,000 unit 04/23/18 10:00 04/23/18 10:43 Heparin - SQ 5,000 unit BID [facility] Administration Methadone HCl 20 mg 04/23/18 06:00 Dolophine - PO DAILY@0600 [facility] Methylprednisolone Sodium Succinate 40 mg 04/22/18 23:30 04/23/18 17:12 Solu-Medrol - IVPUSH 40 mg Q8H-IV [facility] Administration current symptoms as above after receiving 20 mg methadone today . Requesting Methadone taper . h/o tobacco use , denies ETOH use , cocaine use . Chart reviewed, seen by pulmonary for CT March 2018 found to have a 2.3 x 1.7 x 1.1 cm soft tissue density within the left superior mediastinum and several non specific lung nodules , scheduled for PET scan 04/24/18 . Objective: CBC WBC 6.9 K/mm3 (4.0-10.0) 04/22/18 12:58 RBC 4.61 M/mm3 (4.00-5.60) 04/22/18 12:58 Hgb 11.9 GM/dL (11.7-16.9) 04/22/18 12:58 Hct 37.2 % (35.4-49) 04/22/18 12:58 MCV 80.7 fl (80-96) 04/22/18 12:58 MCH 25.9 pg (25.7-33.7) 04/22/18 12:58 MCHC 32.1 g/dl (32.0-35.9) 04/22/18 12:58 RDW 15.9 % (11.9-15.9) 04/22/18 12:58 Plt Count 287 K/MM3 (134-434) 04/22/18 12:58 MPV 7.6 fl (7.5-11.1) 04/22/18 12:58 Absolute Neuts (auto) 6.4 K/mm3 (1.5-8.0) 04/22/18 12:58 Neutrophils % 92.7 % (42.8-82.8) H 04/22/18 12:58 Neutrophils % (Manual) 93.0 % (42.8-82.8) H 04/22/18 12:58 Band Neutrophils % 0.0 % 04/22/18 12:58 Lymphocytes % 4.7 % (8-40) L 04/22/18 12:58 Lymphocytes % (Manual) 2.0 % (8-40) L 04/22/18 12:58 Monocytes % 1.4 % (3.8-10.2) L 04/22/18 12:58 Monocytes % (Manual) 1 % (3.8-10.2) L 04/22/18 12:58 Eosinophils % 0.9 % (0-4.5) D 04/22/18 12:58 Eosinophils % (Manual) 1.0 % (0-4.5) D 04/22/18 12:58 Basophils % 0.3 % (0-2.0) 04/22/18 12:58 Basophils % (Manual) 0.0 % (0-2.0) 04/22/18 12:58 Myelocytes % (Man) 0 % (0-2) 04/22/18 12:58 Promyelocytes % (Man) 0 % (0-2) 04/22/18 12:58 Blast Cells % (Manual) 0 % (0-0) 04/22/18 12:58 Nucleated RBC % 0 % (0-0) 04/22/18 12:58 Metamyelocytes 0 % (0-2) 04/22/18 12:58 Hypochromia 0 04/22/18 12:58 Platelet Estimate Normal 04/22/18 12:58 Polychromasia 0 04/22/18 12:58 Poikilocytosis 1+ 04/22/18 12:58 Anisocytosis 0 04/22/18 12:58 Microcytosis 0 04/22/18 12:58 Macrocytosis 0 04/22/18 12:58 Spherocytes 2+ 04/22/18 12:58 CMP Sodium 137 mmol/L (136-145) 04/22/18 12:58 Potassium 3.7 mmol/L (3.5-5.1) 04/22/18 12:58 Chloride 104 mmol/L (98-107) 04/22/18 12:58 Carbon Dioxide 25 mmol/L (21-32) 04/22/18 12:58 Anion Gap 8 MMOL/L (8-16) 04/22/18 12:58 BUN 12 mg/dL (7-18) 04/22/18 12:58 Creatinine 0.9 mg/dL (0.55-1.3) 04/22/18 12:58 Creat Clearance w eGFR > 60 (>60) 04/22/18 12:58 Random Glucose 165 mg/dL (74-106) H 04/22/18 12:58 Calcium 8.4 mg/dL (8.5-10.1) L 04/22/18 12:58 Total Bilirubin 0.2 mg/dL (0.2-1) 04/22/18 12:58 AST 16 U/L (15-37) 04/22/18 12:58 ALT 24 U/L (13-61) 04/22/18 12:58 Alkaline Phosphatase 99 U/L (45-117) 04/22/18 12:58 Total Protein 6.5 g/dl (6.4-8.2) 04/22/18 12:58 Albumin 3.3 g/dl (3.4-5.0) L 04/22/18 12:58 Assessment: 04/23/18 19:22 known opioid dependence Plan: opioid dependence - will start Methadone taper, utox ordered. cocaine dependence nicotine dependence discussed with patient at length regarding relapse prevention , agreeable to go to outpt program after hospital d/c .
[2018-04-23 21:26] LABS: METHADONE, UR NEGATIVE ng/ml (CUTOFF=300); PHENCYCLIDINE,URINE NEGATIVE ng/ml (CUTOFF=25); URINE AMPHETAMINES NEGATIVE ng/ml (CUTOFF=500); URINE BARBITURATES NEGATIVE ng/ml (CUTOFF=200); URINE BENZODIAZEPINES NEGATIVE ng/ml (CUTOFF=200)
[2018-04-23 21:36] LABS: COCAINE, UR POSITIVE ng/ml (CUTOFF=300)
[2018-04-23 21:37] LABS: OPIATES, URI POSITIVE ng/ml (CUTOFF=300)
--- NOTE | 2018-04-23 21:50 | HP ---
Admitting History and Physical - Admission History of Present Illness: PT is a 47 y/o male who presents to the ED complaining of wheezing and shortness of breath that started in am and is consistent with prior asthma exacerbations. Pt has had multiple admissions for asthma exacerbation and heroin dependance. Denies history of ICU admissions or intubations. Denies fever or productive cough. Reports some relief with nebs by EMS. 47 M, supposed asthma, most likely COPD from previous smoking history, heroin and cocaine abuse (last use was snorting of heroin last night prior to admission). Pt on last admission was found to have lung mass and is scheduled for PET scan this week. Pt was afebrile w/ normal WBC and CXR wc did not show infiltrate. - Past Medical History Pulmonary: Yes: Asthma, Bronchitis, COPD Psych: Yes: Addictions (heroin) - Past Surgical History Past Surgical History: Yes: None - Smoking History Smoking history: Former smoker Have you smoked in the past 12 months: No Aproximately how many cigarettes per day: 4 If you are a former smoker, when did you quit?: 2015 - Alcohol/Substance Use Hx Alcohol Use: Yes (beer) History of Substance Use: reports: Heroin - Social History ADL: Independent Occupation: Unemployed History of Recent Travel: No Home Medications - Allergies Allergies/Adverse Reactions: Allergies Allergy/AdvReac Type Severity Reaction Status Date / Time No Known Allergies Allergy Verified 04/22/18 08:48 - Home Medications Home Medications: Ambulatory Orders Albuterol 2.5/Ipratropium 0.5 [Duoneb -] 1 amp NEB Q6H PRN amp 04/02/18 Family Disease History - Family Disease History Family History: Unremarkable Family Disease History: Diabetes: Mother, CA: Father (.) Review of Systems - Review of Systems Constitutional: reports: No Symptoms HENT: reports: No Symptoms Neck: reports: No Symptoms Cardiovascular: reports: No Symptoms Respiratory: reports: No Symptoms Gastrointestinal: reports: Nausea Genitourinary: reports: No Symptoms Physical Examination Vital Signs: Vital Signs Temperature 97.8 F 04/23/18 18:37 Pulse Rate 90 04/23/18 18:37 Respiratory Rate 18 04/23/18 18:37 Blood Pressure 135/76 04/23/18 18:37 O2 Sat by Pulse Oximetry (%) 98 04/23/18 09:00 Constitutional: Yes: No Distress HENT: Yes: WNL Neck: Yes: WNL, Supple Cardiovascular: Yes: WNL, Regular Rate and Rhythm Respiratory: Yes: Wheezes Gastrointestinal: Yes: WNL, Normal Bowel Sounds, Soft Musculoskeletal: Yes: WNL Extremities: Yes: WNL Edema: No Neurological: Yes: WNL, Alert, Oriented ...Motor Strength: WNL Labs: CBC, BMP 04/22/18 12:58 04/22/18 12:58 Problem List - Problems (1) Asthma with acute exacerbation in adult Assessment/Plan: Cont IV steroids Cont nebulizers As per pulmonary Code(s): J45.901 - UNSPECIFIED ASTHMA WITH (ACUTE) EXACERBATION Qualifiers: Asthma severity: unspecified severity Asthma persistence: unspecified Qualified Code(s): J45.901 - Unspecified asthma with (acute) exacerbation (2) Heroin abuse Assessment/Plan: Addiction medicine consult Code(s): F11.10 - OPIOID ABUSE, UNCOMPLICATED (3) Mediastinal mass Assessment/Plan: Pt scheduled for PET scan as outpt Code(s): J98.59 - OTHER DISEASES OF MEDIASTINUM, NOT ELSEWHERE CLASSIFIED (4) Opioid dependence with withdrawal Assessment/Plan: Addiction medicine consult Methadone detox Code(s): 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
[2018-04-23] MEDS ORDERED: METHADONE HCL 5 MG TABLET PO ONE (23:00)
[2018-04-24] MEDS ORDERED: diphenhydrAMINE HCL 25 MG CAPSULE (FP) PO PRN (00:25)
[2018-04-24] MEDS: methylPREDNISolone NA SUCC 40 MG/1 ML VIAL IVPUSH SCH ×2 (01:51→10:23)
[2018-04-24] MEDS: ALBUTEROL SO4 2.5/IPRATROPIUM 0.5 INH SOL 3 ML VIAL.NEB. NEB SCH (07:10)
[2018-04-24] MEDS ORDERED: METHADONE HCL 5 MG TABLET PO ONE (10:00)
[2018-04-24 10:16] VITALS: BP 104/62; PULSE 88; TEMP 97.3
[2018-04-24] MEDS: HEPARIN NA (PORCINE) 5,000 UNITS/ML 1ML VIAL SQ SCH (10:23)
--- NOTE | 2018-04-24 13:58 | PN ---
Progress Note, Physician History of Present Illness: PULMONARY ALERT,FEELING BETTER,-REP DISTRESS - Current Medication List Current Medications: Active Medications Albuterol/Ipratropium (Duoneb -) 1 amp NEB Q6H PRN PRN Reason: SHORTNESS OF BREATH Last Admin: 04/24/18 11:05 Dose: 1 amp Albuterol/Ipratropium (Duoneb -) 1 amp NEB RTID [facility] Last Admin: 04/24/18 07:10 Dose: Not Given Diphenhydramine HCl (Benadryl -) 50 mg PO HS PRN PRN Reason: INSOMNIA Last Admin: 04/24/18 00:51 Dose: 50 mg Heparin Sodium (Porcine) (Heparin -) 5,000 unit SQ BID [facility] Last Admin: 04/24/18 10:23 Dose: 5,000 unit Methadone HCl (Dolophine -) 10 mg PO ONCE ONE Stop: 04/25/18 10:01 Methadone HCl (Dolophine -) 5 mg PO ONCE ONE Stop: 04/26/18 06:01 Methylprednisolone Sodium Succinate (Solu-Medrol -) 40 mg IVPUSH Q8H-IV [facility] Last Admin: 04/24/18 10:23 Dose: 40 mg - Objective Vital Signs: Vital Signs Temperature 97.3 F L 04/24/18 10:15 Pulse Rate 88 04/24/18 10:15 Respiratory Rate 24 H 04/24/18 10:15 Blood Pressure 104/62 04/24/18 10:15 O2 Sat by Pulse Oximetry (%) 98 04/23/18 09:00 Constitutional: Yes: Well Nourished, Calm Eyes: Yes: WNL HENT: Yes: WNL Neck: Yes: WNL Cardiovascular: Yes: Regular Rate and Rhythm, S1, S2 Respiratory: Yes: Wheezes (SCATTERED KAREN WHEEZES) Gastrointestinal: Yes: Normal Bowel Sounds, Soft Extremities: Yes: WNL Edema: No Labs: CBC, BMP Assessment/Plan Problem List - Problems (1) Asthma exacerbation Code(s): J45.901 - UNSPECIFIED ASTHMA WITH (ACUTE) EXACERBATION Qualifiers: Asthma severity: moderate Asthma persistence: persistent Qualified Code(s ): J45.41 - Moderate persistent asthma with (acute) exacerbation (2) Heroin abuse Code(s): F11.10 - OPIOID ABUSE, UNCOMPLICATED (3) Mediastinal adenopathy Code(s): R59.0 - LOCALIZED ENLARGED LYMPH NODES (4) Mediastinal mass Code(s): J98.59 - OTHER DISEASES OF MEDIASTINUM, NOT ELSEWHERE CLASSIFIED (5) Nicotine dependence Code(s): F17.200 - NICOTINE DEPENDENCE, UNSPECIFIED, UNCOMPLICATED Qualifiers: (6) SOB (shortness of breath) Code(s): R06.02 - SHORTNESS OF BREATH (7) Tobacco abuse Code(s): Z72.0 - TOBACCO USE Assessment/Plan Acute bronchospasm due to heroin abuse COPD/ASTHMA SUBSTANC ABUSE Prednisone 40mg OD x 5 days. No smoking / illicit substances again advised PET scan scheduled for tomorrow, he should be stable for D/C to have this test do I advised him the importance of follow up as the there is a possibility that the mediastinal mass is malignant in nature. DR THOMPSON
[2018-04-25] MEDS ORDERED: METHADONE HCL 10 MG TABLET PO ONE (10:00)
[2018-04-25] MEDS ORDERED: predniSONE 20 MG TABLET (UD) PO SCH (10:00)
[2018-04-26] MEDS ORDERED: METHADONE HCL 5 MG TABLET PO ONE (06:00)
== END 2018-04-24 15:42 | disposition left against medical advice (07) | DRG 141 ==
LOC: JER 08:44 → JERBED 14:59 → J5S 18:03
PROVIDERS: ADMIT Internal Medicine; ATTEND Internal Medicine
DX: J45.41 Moderate persistent asthma with (acute) exacerbation (principal); J98.59 Other diseases of mediastinum, not elsewhere classified; J44.9 Chronic obstructive pulmonary disease, unspecified; F14.20 Cocaine dependence, uncomplicated; F11.23 Opioid dependence with withdrawal; R59.0 Localized enlarged lymph nodes; F17.210 Nicotine dependence, cigarettes, uncomplicated
CPT/HCPCS: 36415; 71045-TC-FY; 80053; 80307; 85025; 94640; 99282-25; J1644

== ENCOUNTER 2018-05-19 03:01 | Emergency (ER) | payer OTHER ==
[2018-05-19] MEDS ORDERED: predniSONE 20 MG TABLET (UD) PO ONE (03:13)
[2018-05-19] MEDS ORDERED: ALBUTEROL SO4 2.5/IPRATROPIUM 0.5 INH SOL 3 ML VIAL.NEB. NEB ONE ×4 (03:13→06:10)
[2018-05-19] MEDS ORDERED: MAGNESIUM SULF 50% (8.12 MEQ/2 ML-1 GM VIAL) IVPB ONE (03:13)
[2018-05-19 03:17] VITALS: BP 144/106; PULSE 110; TEMP 97.3; BMI 28.1
--- NOTE | 2018-05-19 03:17 | PDOC ---
Attending Attestation - Resident Resident Name: Brandon Fernandez - ED Attending Attestation I have performed the following: I have examined & evaluated the patient, The case was reviewed & discussed with the resident, I agree w/resident's findings & plan - HPI HPI: 05/19/18 05:27 Pt comes with asthma exac. He was playing cards with friends, who were smoking and he also smoked "a couple" cigarettes. - Physicial Exam PE: 05/19/18 05:27 Wheezing bilat; afebrile; heart normal; good breath exchange bilat (after duonebs and prednisone in the ER) Pt is eating food that he got from the vending machine. Pt has no flank pain. All labs normal. CXR clear. Pt will be discharged in the AM. He received 0.25mg terbutaline at 5:30. He will be given another shot around 6AM then he will be d/c'd - Medical Decision Making 05/19/18 20:33 Pt stable to go; he will be signed out to the day team, as he is still physically in the ER
--- NOTE | 2018-05-19 03:18 | PDOC ---
History of Present Illness - General Chief Complaint: Shortness of Breath Stated Complaint: S.O.B. Time Seen by Provider: 05/19/18 03:11 History Source: Patient Exam Limitations: No Limitations - History of Present Illness Initial Comments: Sunil is a 46 yo M w a pmh of COPD, asthma, and heroin usage, who presents to the emergency department via EMS with, shortness of breath. He says he is having his typical asthma exacerbation. He admits to using heroin earlier today. His SOB and difficulty breathing began yesterday and worsened to the point where he is having a very hard time breathing at rest. - He states he has never been intubated or gone to the ICU for asthma He denies any recent fevers, chills, headache or dizziness. He denies any recent nausea, vomit, diarrhea or constipation. He denies any recent chest pain. He denies any recent dysuria, frequency, urgency or hematuria. Allergies: NKA, NKDA Social History: Heroin usage. Occasional smoking. Primary Care Physician: Dr. Eric Yanez Past History - Past Medical History Allergies/Adverse Reactions: Allergies Allergy/AdvReac Type Severity Reaction Status Date / Time No Known Allergies Allergy Verified 05/19/18 03:12 Home Medications: Ambulatory Orders Albuterol 2.5/Ipratropium 0.5 [Duoneb -] 1 amp NEB RTID #90 amp 04/24/18 predniSONE [Deltasone -] 20 mg PO BID #20 tablet 04/24/18 Montelukast Sodium [Singulair] 10 mg PO DAILY #30 tablet 05/19/18 Prednisone [Prednisone 50 MG TABLETS] 60 mg PO DAILY #5 tablet 05/19/18 Anemia: No Asthma: Yes Cancer: No Cardiac Disorders: No CVA: No COPD: No CHF: No DVT: No Dementia: No Diabetes: No GI Disorders: No Disorders: No HTN: No Hypercholesterolemia: No Kidney Stones: No Liver Disease: No Seizures: No Thyroid Disease: No - Surgical History Abdominal Surgery: No Appendectomy: No Cardiac Surgery: No Cholecystectomy: No Lung Surgery: No Neurologic Surgery: No Orthopedic Surgery: No - Reproductive History Testicular Surgery: No - Immunization History Td Vaccination: Yes Immunization Up to Date: Yes - Suicide/Smoking/Psychosocial Hx Smoking Status: Yes Smoking History: Never smoked Years of Tobacco Use: 40 Have you smoked in the past 12 months: No Number of Cigarettes Smoked Daily: 4 If you are a former smoker, when did you quit?: 2014 Cigars Per Day: 0 Information on smoking cessation initiated: No 'Breaking Loose' booklet given: 11/08/17 Hx Alcohol Use: No Drug/Substance Use Hx: No Substance Use Type: Cocaine, Heroin Hx Substance Use Treatment: Yes ([facility] 03/11/17 to 03/13/17 not completed) Respiratory Specific PMHX - Complaint Specific PMHX TB (Tuberculosis): No Review of Systems - Review of Systems Able to Perform ROS?: Yes Constitutional: No: Chills, Diaphoresis, Fever, Weakness HEENTM: No: Blurred Vision, Double Vision, Cataracts Respiratory: Yes: Cough, Shortness of Breath, Wheezing. No: Orthopnea, Productive cough Cardiac (ROS): No: Chest Pain, Irregular Heart Rate, Palpitations, Syncope ABD/GI: No: Abdominal Distended, Blood Streaked Bowels, Constipated, Diarrhea, Nausea, Poor Appetite, Poor Fluid Intake, Vomiting, Abdominal cramping : No: Burning, Dysuria, Discharge, Frequency, Flank Pain, Hematuria Musculoskeletal: No: Back Pain, Gout, Joint Pain Integumentary: No: Bruising, Change in Color Neurological: No: Headache, Numbness, Paresthesia Psychiatric: No: Anxiety, Depression, Frequent Crying Endocrine: No: Excessive Sweating, Flushing, Intolerance to Cold, Intolerance to Heat, Increased Hunger Hematologic/Lymphatic: No: Anemia, Blood Clots, Easy Bleeding, Easy Bruising, Bleeding Diathesis, Lymph Node Abnormalities *Physical Exam - Vital Signs Last Vital Signs Temp Pulse Resp BP Pulse Ox 97.3 F L 110 H 18 144/106 H 90 L 05/19/18 03:13 05/19/18 03:13 05/19/18 03:13 05/19/18 03:13 05/19/18 03:13 - Physical Exam General Appearance: Yes: Nourished, Appropriately Dressed. No: Apparent Distress HEENT: positive: EOMI, MAGDIEL, Normal ENT Inspection Neck: positive: Supple. negative: Rigid Respiratory/Chest: positive: Respiratory Distress, Accessory Muscle Use, Labored Respiration, Rapid RR, Wheezing. negative: Chest Tender, Lungs Clear, Normal Breath Sounds, Decreased Breath Sounds, Crackles, Rales, Rhonchi, Stridor Cardiovascular: positive: Regular Rhythm, S1, S2, Tachycardia. negative: Regular Rate, Edema, JVD, Murmur Vascular Pulses: Dorsalis-Pedis (R): 2+, Doralis-Pedis (L): 2+ Gastrointestinal/Abdominal: positive: Normal Bowel Sounds, Soft. negative: Distended, Guarding, Rebound Rectal Exam: positive: deferred Lymphatic: negative: Adenopathy Musculoskeletal: positive: Normal Inspection. negative: CVA Tenderness Extremity: positive: Normal Capillary Refill, Normal Inspection, Normal Range of Motion Integumentary: positive: Normal Color, Dry, Warm. 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 NML intact, Fully Oriented, Alert, Normal Mood/ Affect Moderate Sedation - Procedure Monitoring Vital Signs: Procedure Monitoring Vital Signs Temperature 97.3 F L 05/19/18 03:13 Pulse Rate 110 H 05/19/18 03:13 Respiratory Rate 18 05/19/18 03:13 Blood Pressure 144/106 H 05/19/18 03:13 O2 Sat by Pulse Oximetry (%) 90 L 05/19/18 03:13 ED Treatment Course - LABORATORY CBC & Chemistry Diagram: 05/19/18 03:40 05/19/18 03:40 - RADIOLOGY Radiology Studies Ordered: Category Date Time Status CHEST PA & LAT [RAD] Stat Radiology 05/19/18 03:14 Ordered Medical Decision Making - Medical Decision Making Sunil is a 46 yo M w a pmh of COPD, asthma, and heroin usage, who presents to the emergency department via EMS with, shortness of breath. He says he is having his typical asthma exacerbation. He admits to using heroin earlier today. His SOB and difficulty breathing began yesterday and worsened to the point where he is having a very hard time breathing at rest. - VS: Tachycardic, tachypneic, hypoxic DDx IBNLT: Asthma vs COPD, PNA, pneumothorax, ACs/ND Plan: Labs, cxr, ekg, duonebs, steroids, magnesium, terbutaline, oxygen, re- assess. This is likely a simple bad asthma exaverbation. Will DC with steroid course. *DC/Admit/Observation/Transfer Diagnosis at time of Disposition: Asthma exacerbation, Heroin abuse - Discharge Dispostion Disposition: HOME Condition at time of disposition: Stable Decision to Admit order: No - Prescriptions Prescriptions: Montelukast Sodium [Singulair] 10 mg PO DAILY #30 tablet - Referrals Referrals: Eric Yanez MD [Primary Care Provider] - - Patient Instructions Printed Discharge Instructions: Chemical Dependency (Narcotic) (Alternative Therapy), Asthma -- Adult Additional Instructions: You came into the Er with severe shortness of breath after doing Heroin. Please stop using drugs as they always make you have difficulty breathing. You need to be better at taking your asthma medications. Come back to the ER if your shortness of breath worsens or you have any other new or worsening concerns. We sent medications to your pharmacy - please make sure to go and pick it up. Thank you for coming to the [facility] ER. We hope you feel better soon! Print Language: PERSIAN - Post Discharge Activity
[2018-05-19] MEDS ORDERED: predniSONE 20 MG TABLET (UD) ONE ×2 (03:21→03:22)
[2018-05-19] MEDS ORDERED: MAGNESIUM SULF 50% (8.12 MEQ/2 ML-1 GM VIAL) ONE (03:27)
[2018-05-19 04:02] LABS: BASO % 0.5 % (0-2.0); EOS % 6.2 % (0-4.5); HEMATOCRIT 36.6 % (35.4-49); HEMOGLOBIN 12.1 GM/dL (11.7-16.9); LYMPH % 23.2 % (8-40); MCH 26.9 pg (25.7-33.7); MCHC 33.1 g/dl (32.0-35.9); MEAN CELL VOLUME 81.5 fl (80-96); MEAN PLT VOLUME 7.8 fl (7.5-11.1); MONO % 7.4 % (3.8-10.2); NEUT % 62.7 % (42.8-82.8); PLATELET COUNT 298 K/MM3 (134-434); RBC 4.49 M/mm3 (4.00-5.60); RDW 15.3 % (11.9-15.9); WHITE BLOOD COUNT 9.9 K/mm3 (4.0-10.0)
[2018-05-19 04:08] LABS: VENOUS PH 7.31 (7.32-7.42); VENOUS PO2 77.9 mmHg (28-48)
[2018-05-19 04:09] LABS: VENOUS PC02 63.2 mmHg (38-52)
[2018-05-19 04:26] LABS: ALBUMIN 3.8 g/dl (3.4-5.0); ALK PHOS 96 U/L (45-117); ANION GAP 5 MMOL/L (8-16); BILIRUBIN,TOTAL 0.1 mg/dL (0.2-1); BLOOD UREA NITROGEN 21 mg/dL (7-18); CALCIUM 8.4 mg/dL (8.5-10.1); CHLORIDE 101 mmol/L (98-107); CO2 31 mmol/L (21-32); CREATININE 0.7 mg/dL (0.55-1.3); GLUCOSE,RANDOM 119 mg/dL (74-106); POTASSIUM 4.8 mmol/L (3.5-5.1); SGOT/AST 12 U/L (15-37); SGPT/ALT 16 U/L (13-61); SODIUM 137 mmol/L (136-145); TOT PROT 7.1 g/dl (6.4-8.2)
[2018-05-19] MEDS ORDERED: MONTELUKAST NA 10 MG TABLET PO ONE (05:00)
[2018-05-19] MEDS ORDERED: MONTELUKAST NA 10 MG TABLET ONE (05:15)
[2018-05-19] MEDS ORDERED: TERBUTALINE SULFATE 1 MG/1 ML VIAL SQ ONE ×3 (05:18→05:59)
--- NOTE | 2018-05-19 15:37 | EKG ---
Test Reason : Blood Pressure : / mmHG Vent. Rate : 099 BPM Atrial Rate : 099 BPM P-R Int : 166 ms QRS Dur : 080 ms QT Int : 336 ms P-R-T Axes : 062 010 039 degrees QTc Int : 431 ms NORMAL SINUS RHYTHM NORMAL ECG WHEN COMPARED WITH ECG OF 28-MAR-2018 03:12, NO SIGNIFICANT CHANGE WAS FOUND Confirmed by MUKUND GUZMÁN MD ([id number]) on 05/19/2018 3:36:29 PM Referred By: Confirmed By:MUKUND GUZMÁN MD
== END 2018-05-19 07:05 | disposition home or self-care (01) ==
LOC: JER 03:01
PROC: 3E023GC Introduction of Other Therapeutic Substance into Muscle, Percutaneous Approach (ICD-10-PCS; principal; 2018-05-19)
PROC: 3E0F7GC Introduction of Other Therapeutic Substance into Respiratory Tract, Via Natural or Artificial Opening (ICD-10-PCS; 2018-05-19)
PROC: 3E033GC Introduction of Other Therapeutic Substance into Peripheral Vein, Percutaneous Approach (ICD-10-PCS; 2018-05-19)
DX: J45.41 Moderate persistent asthma with (acute) exacerbation (principal); F11.10 Opioid abuse, uncomplicated
CPT/HCPCS: 36415; 71046-TC-FY; 80053; 82803; 84484; 85025; 93005; 93010; 94640; 96372; 96374; 99282-25

== ENCOUNTER 2018-05-23 12:48 | Emergency (ER) | payer OTHER ==
[2018-05-23 12:53] VITALS: BMI 27.3
[2018-05-23] MEDS ORDERED: ALBUTEROL SO4 2.5/IPRATROPIUM 0.5 INH SOL 3 ML VIAL.NEB. NEB ONE ×2 (13:08→13:09)
[2018-05-23] MEDS ORDERED: DEXAMETHASONE SOD PHOSPHATE 10 MG/1 ML VIAL ONE (13:08)
--- NOTE | 2018-05-23 13:40 | PDOC ---
History of Present Illness - General Chief Complaint: Asthma Stated Complaint: ASTHMA Time Seen by Provider: 05/23/18 13:06 History Source: Patient Exam Limitations: No Limitations - History of Present Illness Initial Comments: 05/23/18 13:40 47-year-old male with history of asthma presents the ED with worsening cough and wheezing over the past week. Patient states he does not have an inhaler due to lack of insurance and went to his doctor today where he was having excessive wheezing and persistent coughing. EMS was called who administered DuoNeb along with Decadron. Patient arrives here with no complaints including chest pain shortness of breath or wheezing. Patient does smoke cigarettes daily. Timing/Duration: reports: yesterday Severity: reports: mild, moderate Possible Cause: Yes: frequent episodes Modifying Factors: improves with: albuterol inhaler, coughing Associated Symptoms: reports: cough, wheezing. denies: fever/chills, shortness of breath Past History - Travel Traveled outside of the country in the last 30 days: No Close contact w/someone who was outside of country & ill: No - Past Medical History Allergies/Adverse Reactions: Allergies Allergy/AdvReac Type Severity Reaction Status Date / Time No Known Allergies Allergy Verified 05/23/18 12:50 Home Medications: Ambulatory Orders Albuterol 2.5/Ipratropium 0.5 [Duoneb -] 1 amp NEB RTID #90 amp 04/24/18 Anemia: No Asthma: Yes Cancer: No Cardiac Disorders: No CVA: No COPD: No CHF: No DVT: No Dementia: No Diabetes: No GI Disorders: No Disorders: No HTN: No Hypercholesterolemia: No Kidney Stones: No Liver Disease: No Seizures: No Thyroid Disease: No - Surgical History Abdominal Surgery: No Appendectomy: No Cardiac Surgery: No Cholecystectomy: No Lung Surgery: No Neurologic Surgery: No Orthopedic Surgery: No - Reproductive History Testicular Surgery: No - Immunization History Td Vaccination: Yes Immunization Up to Date: Yes - Suicide/Smoking/Psychosocial Hx Smoking Status: Yes Smoking History: Current every day smoker Years of Tobacco Use: 40 Have you smoked in the past 12 months: No Number of Cigarettes Smoked Daily: 20 If you are a former smoker, when did you quit?: 2015 Cigars Per Day: 0 Information on smoking cessation initiated: No 'Breaking Loose' booklet given: 11/08/17 Hx Alcohol Use: No Drug/Substance Use Hx: No Substance Use Type: Cocaine, Heroin Hx Substance Use Treatment: Yes ([facility] 03/11/17 to 03/13/17 not completed) Patient Lives Alone: Yes Lives with/in: lives alone Respiratory Specific PMHX - Complaint Specific PMHX TB (Tuberculosis): No Review of Systems - Review of Systems Able to Perform ROS?: No Is the patient limited Samoan proficient: No Constitutional: No: Symptoms Reported HEENTM: No: Symptoms Reported Respiratory: Yes: Cough, Wheezing Cardiac (ROS): No: Symptoms Reported ABD/GI: No: Symptoms Reported : No: Symptoms Reported Musculoskeletal: No: Symptoms Reported Integumentary: No: Symptoms Reported Neurological: No: Headache, Weakness Hematologic/Lymphatic: No: Symptoms Reported *Physical Exam - Vital Signs Last Vital Signs Temp Pulse Resp BP Pulse Ox 97.4 F L 79 22 H 135/88 98 05/23/18 12:50 05/23/18 12:50 05/23/18 12:50 05/23/18 12:50 05/23/18 12:50 - Physical Exam General Appearance: Yes: Nourished, Appropriately Dressed. No: Apparent Distress HEENT: positive: Pharynx Normal. negative: Muffled/Hoarse voice Neck: positive: Supple Respiratory/Chest: positive: Wheezing (exp on left). negative: Respiratory Distress, Accessory Muscle Use Cardiovascular: positive: Regular Rhythm, Regular Rate. negative: Murmur Gastrointestinal/Abdominal: positive: Soft. negative: Tenderness Integumentary: positive: Normal Color, Warm, Moist Neurologic: positive: Motor Strength 5/5 (ambulatory) Moderate Sedation - Procedure Monitoring Vital Signs: Procedure Monitoring Vital Signs Temperature 97.4 F L 05/23/18 12:50 Pulse Rate 79 05/23/18 12:50 Respiratory Rate 22 H 05/23/18 12:50 Blood Pressure 135/88 05/23/18 12:50 O2 Sat by Pulse Oximetry (%) 98 05/23/18 12:50 Medical Decision Making - Medical Decision Making 05/23/18 13:36 Chief complaint: Diarrhea for evaluation of asthma exacerbation. Patient asymptomatic upon arrival. Exam patient mild end expiratory wheeze to the left base. Patient ordered for DuoNeb 2 05/23/18 14:36 States feeling better. Patient with clear lungs bilaterally. Patient discharged home to follow up with his primary care doctor. Albuterol inhaler ordered *DC/Admit/Observation/Transfer Diagnosis at time of Disposition: Asthma exacerbation - Discharge Dispostion Disposition: HOME Condition at time of disposition: Improved - Referrals - Patient Instructions Printed Discharge Instructions: Asthma -- Adult Additional Instructions: Carry your inhaler with you at all times. Follow-up with your doctor. Return to ED if symptoms worsen. - Post Discharge Activity
--- NOTE | 2018-05-23 13:48 | PDOC ---
*Physical Exam - Vital Signs Last Vital Signs Temp Pulse Resp BP Pulse Ox 97.4 F L 79 22 H 135/88 98 05/23/18 12:50 05/23/18 12:50 05/23/18 12:50 05/23/18 12:50 05/23/18 12:50 ED Treatment Course - Medications Given in the ED: ED Medications Discontinued Medications Generic Name Dose Route Start Last Admin Trade Name Freq PRN Reason Stop Dose Admin Albuterol/Ipratropium 1 amp 05/23/18 13:08 05/23/18 13:40 Duoneb - NEB 05/23/18 13:09 1 amp ONCE ONE Administration Albuterol/Ipratropium 1 amp 05/23/18 13:09 05/23/18 13:40 Duoneb - NEB 05/23/18 13:10 1 amp ONCE ONE Administration Medical Decision Making - Medical Decision Making 05/23/18 13:48 47 yo M h/o asthma p/w cough and wheezing x 1 week Given Decadron and nebs by EMS No complaints now Pt seen by Midlevel Provider under my direct supervision Ancillary studies reviewed I agree with plan as outlined by Midlevel Provider 05/23/18 14:46 *DC/Admit/Observation/Transfer Diagnosis at time of Disposition: Asthma exacerbation - Discharge Dispostion Disposition: HOME Condition at time of disposition: Improved - Prescriptions Prescriptions: Albuterol Sulfate Inhaler - [Ventolin HFA Inhaler -] 1 - 2 inh PO QID PRN #1 inhaler PRN Reason: Wheezing - Referrals - Patient Instructions Printed Discharge Instructions: Asthma -- Adult Additional Instructions: Carry your inhaler with you at all times. Follow-up with your doctor. Return to ED if symptoms worsen. - Post Discharge Activity
[2018-05-23 15:43] VITALS: BP 115/86; PULSE 76; TEMP 97.9
== END 2018-05-23 14:43 | disposition home or self-care (01) ==
LOC: JER 12:48
PROC: 3E0F7GC Introduction of Other Therapeutic Substance into Respiratory Tract, Via Natural or Artificial Opening (ICD-10-PCS; principal; 2018-05-23)
PROC: 3E0F7GC Introduction of Other Therapeutic Substance into Respiratory Tract, Via Natural or Artificial Opening (ICD-10-PCS; 2018-05-23)
DX: J45.901 Unspecified asthma with (acute) exacerbation (principal)
CPT/HCPCS: 99281-25

== ENCOUNTER → 2018-05-27 | Emergency (ER) | payer OTHER ==
[~2018-05-27] MED LIST: ALBUTEROL SO4 2.5/IPRATROPIUM 0.5 INH SOL 3 ML VIAL.NEB. NEB ONE; AZITHROMYCIN 250 MG TABLET ONE; AZITHROMYCIN 500 MG TABLET PO ONE; predniSONE 20 MG TABLET (UD) ONE; predniSONE 20 MG TABLET (UD) PO ONE
[2018-05-27 05:20] VITALS: BP 142/85; PULSE 94; TEMP 97.8; BMI 26.6
--- NOTE | 2018-05-27 05:23 | PDOC ---
History of Present Illness - General Chief Complaint: Asthma Stated Complaint: S.OB. Time Seen by Provider: 05/27/18 05:11 - History of Present Illness Initial Comments: 05/27/18 05:16 47 yo M with h/o asthma, mediastinal mass, nicotine dependence, who p/w cough, wheezing, SOB. Patient reports 2 days of wheezing, Pedro, SOB, and non productive cough. Patient states this is typical of prior asthma exacerbations. Patient recently ran out of duoneb therapy. Denies home O2 use. Patient denies Palpitations, orthopnea, PND, leg pain/swelling, EDWARD, vision change, N/V, F,C, CP, urinary complaints, abdominal pain, BPR, hematuria, diarrhea, constipation, lightheadedness, weakness, sensory changes. PMHx: as noted above. Denies h/o ICU admissions, or intubations. ROS: as noted SHx: 1 ppd x 25 years tobacco use Allergies: NKDA [employer] Band Director: Dr. Thomas Past History - Past Medical History Allergies/Adverse Reactions: Allergies Allergy/AdvReac Type Severity Reaction Status Date / Time No Known Allergies Allergy Verified 05/23/18 12:50 Home Medications: Ambulatory Orders Albuterol 2.5/Ipratropium 0.5 [Duoneb -] 1 amp NEB RTID #90 amp 04/24/18 Albuterol Sulfate Inhaler - [Ventolin HFA Inhaler -] 1 - 2 inh PO QID PRN #1 inhaler 05/23/18 Albuterol 2.5/Ipratropium 0.5 [Duoneb -] 1 neb NEB Q4H #2 vial 05/27/18 Azithromycin [Zithromax -] 250 mg PO DAILY #3 tablet 05/27/18 Prednisone [Prednisone 50 MG TABLETS] 50 mg PO DAILY #5 tablet MDD 1 tab Anemia: No Asthma: Yes Cancer: No Cardiac Disorders: No CVA: No COPD: No CHF: No DVT: No Dementia: No Diabetes: No GI Disorders: No Disorders: No HTN: No Hypercholesterolemia: No Kidney Stones: No Liver Disease: No Seizures: No Thyroid Disease: No - Surgical History Abdominal Surgery: No Appendectomy: No Cardiac Surgery: No Cholecystectomy: No Lung Surgery: No Neurologic Surgery: No Orthopedic Surgery: No - Reproductive History Testicular Surgery: No - Immunization History Td Vaccination: Yes Immunization Up to Date: Yes - Suicide/Smoking/Psychosocial Hx Smoking Status: Yes Smoking History: Never smoked Years of Tobacco Use: 40 Have you smoked in the past 12 months: No Number of Cigarettes Smoked Daily: 20 If you are a former smoker, when did you quit?: 2014 Cigars Per Day: 0 Information on smoking cessation initiated: No 'Breaking Loose' booklet given: 11/08/17 Hx Alcohol Use: No Drug/Substance Use Hx: No Substance Use Type: Cocaine, Heroin Hx Substance Use Treatment: Yes ([facility] 03/11/17 to 03/13/17 not completed) Review of Systems - Review of Systems Comments:: 05/27/18 05:23 GENERAL/CONSTITUTIONAL: No fever or chills. No weakness. HEAD, EYES, EARS, NOSE AND THROAT: No change in vision. No ear pain or discharge. No sore throat. CARDIOVASCULAR: + SOB. No chest pain. RESPIRATORY: +cough, wheezing. No hemoptysis. GASTROINTESTINAL: No nausea, vomiting, diarrhea or constipation. GENITOURINARY: No dysuria, frequency, or change in urination. MUSCULOSKELETAL: No joint or muscle swelling or pain. No neck or back pain. SKIN: No rash NEUROLOGIC: No headache, vertigo, loss of consciousness, or change in strength/ sensation. ENDOCRINE: No increased thirst. No abnormal weight change HEMATOLOGIC/LYMPHATIC: No anemia, easy bleeding, or history of blood clots. ALLERGIC/IMMUNOLOGIC: No hives or skin allergy. *Physical Exam - Vital Signs Last Vital Signs Temp Pulse Resp BP Pulse Ox 97.8 F 94 H 22 H 142/85 96 05/27/18 05:09 05/27/18 05:09 05/27/18 05:09 05/27/18 05:09 05/27/18 05:09 - Physical Exam Comments: 05/27/18 05:23 GENERAL: Awake, alert, and fully oriented, in no acute distress HEAD: No signs of trauma, normocephalic, atraumatic EYES: PERRLA, EOMI, sclera anicteric, conjunctiva clear ENT: Hearing grossly normal, nares patent, oropharynx clear without exudates. Moist mucosa NECK: Normal ROM, supple, no lymphadenopathy, JVD, or masses LUNGS: + breathing labored with diffuse exp rhonci. Absent rales. HEART: Regular rate and rhythm, normal S1 and S2, no murmurs, rubs or gallops, peripheral pulses normal and equal bilaterally. EXTREMITIES : Normal inspection, Normal range of motion, no edema. No clubbing or cyanosis. NEUROLOGICAL: Cranial nerves II through XII grossly intact. Normal speech, normal gait, no focal sensorimotor deficits SKIN: Warm, Dry, normal turgor, no rashes or lesions noted Moderate Sedation - Procedure Monitoring Vital Signs: Procedure Monitoring Vital Signs Temperature 97.8 F 05/27/18 05:09 Pulse Rate 94 H 05/27/18 05:09 Respiratory Rate 22 H 05/27/18 05:09 Blood Pressure 142/85 05/27/18 05:09 O2 Sat by Pulse Oximetry (%) 96 05/27/18 05:09 ED Treatment Course - RADIOLOGY Radiology Studies Ordered: Category Date Time Status CHEST PA & LAT [RAD] Stat Radiology 05/27/18 05:12 Ordered Medical Decision Making - Medical Decision Making 05/27/18 05:21 47 yo M with h/o asthma, mediastinal mass, nicotine dependence, who p/w cough, wheezing, SOB. Vitals wnl, AF, A&OX3. O2 96 % RA. R/o PNA. Physical exam with + breathing labored with diffuse exp rhonciLikely acute asthma vs. COPD exacerbation. No evidence of fluid/volume overlaod. Low suspicion CHF exacerbation, pleural effusion, pericardial effusion. Will provide treatment and reassess. ED Course: Duoneb, Prednisone Duoneb, Prednisone, Azithromycin sent to pharmacy 05/27/18 05:27 Patient seen ambulating hallway without difficulty 05/27/18 06:18 CXR: Unremarkable Unable to locate patient Patient walked out of hospital after endorsing to staff that he felt better Patient eloped *DC/Admit/Observation/Transfer Diagnosis at time of Disposition: Asthma exacerbation Qualifiers: Asthma severity: mild Asthma persistence: intermittent Qualified Code(s): J45.21 - Mild intermittent asthma with (acute) exacerbation - Discharge Dispostion Disposition: ELOPED Condition at time of disposition: Stable Decision to Admit order: No - Prescriptions Prescriptions: Albuterol 2.5/Ipratropium 0.5 [Duoneb -] 1 neb NEB Q4H #2 vial Azithromycin [Zithromax -] 250 mg PO DAILY #3 tablet Prednisone [Prednisone 50 MG TABLETS] 50 mg PO DAILY #5 tablet MDD 1 tab - Referrals Referrals: Armani Thomas MD [Staff Physician] - - Patient Instructions Printed Discharge Instructions: Asthma -- Adult Additional Instructions: Please return to the emergency department with any new or worsening symptoms or concerns. Please follow up with your staff midwife/apprenticeship director within 72 hours. Take Duonebs , Prednisone, and Azithromycin as prescribed. - Post Discharge Activity - Attestations Physician Attestion: 05/27/18 05:25 I attest to the information provided in this note.
[2018-05-27] MEDS: ALBUTEROL SO4 2.5/IPRATROPIUM 0.5 INH SOL 3 ML VIAL.NEB. NEB SCH ×4 (05:32→06:16)
--- NOTE | 2018-05-27 06:29 | PDOC ---
Attending Attestation - Resident Resident Name: Gregg Vicente
== END | disposition left against medical advice (07) ==
LOC: JER 05:04
PROC: 3E0F7GC Introduction of Other Therapeutic Substance into Respiratory Tract, Via Natural or Artificial Opening (ICD-10-PCS; principal; 2018-05-27)
DX: J45.21 Mild intermittent asthma with (acute) exacerbation (principal)
CPT/HCPCS: 71046-TC-FY; 94640; 99281-25

== ENCOUNTER 2018-06-02 05:17 | Emergency (ER) | payer OTHER ==
[2018-06-02] MEDS ORDERED: ALBUTEROL SO4 2.5/IPRATROPIUM 0.5 INH SOL 3 ML VIAL.NEB. NEB ONE (05:22)
--- NOTE | 2018-06-02 05:25 | PDOC ---
Attending Attestation - Resident Resident Name: Aldair Rhodes - ED Attending Attestation I have performed the following: I have examined & evaluated the patient, The case was reviewed & discussed with the resident, I agree w/resident's findings & plan - HPI HPI: 06/02/18 05:28 Pt comes with asthma exacerbation. He ran out of meds. - Physicial Exam PE: 06/02/18 05:49 Pt has bilateral wheezing. He states that he uses heroin 2x daily and he is a smoker and now he has asthma exacerbation. Pt has Beau as PMD and he will be referred back to him. 06/02/18 05:50 Afebrile VSS: Awake and NAD. - Medical Decision Making 06/02/18 05:51 Home after imrpvement of asthma. Pt is refusing heroin detox at [facility]. He keeps making excuses. 06/02/18 06:36 CXR pending. Pt still wheezing and he will be signed out to the day team. Heart Score/ECG Review - ECG Intrepretation Rhythm: Regular Rhythm - Francis Francis: Normal - P and ID Delta Wave(s) Present: No WPW: No - QRS Poor R Wave Progression: No Q Wave Present: No - ST and T Early Repolarization: No Non Specific ST-T Wave changes: No Flattened T Waves: No Prolonged Q-T Interval: No - ECG Impressions Normal ECG: Yes Non-specific ST Elevation: No Ischemic Changes: No Bradycardia: No Torsades lena Pointes: No WPW: No
[2018-06-02 05:28] VITALS: BMI 27.3
[2018-06-02 06:06] LABS: BASO % 1.2 % (0-2.0); EOS % 5.2 % (0-4.5); HEMATOCRIT 34.6 % (35.4-49); HEMOGLOBIN 11.5 GM/dL (11.7-16.9); LYMPH % 22.5 % (8-40); MCHC 33.3 g/dl (32.0-35.9); MEAN CELL VOLUME 80.9 fl (80-96); MEAN PLT VOLUME 7.6 fl (7.5-11.1); MONO % 7.8 % (3.8-10.2); NEUT % 63.3 % (42.8-82.8); PLATELET COUNT 280 K/MM3 (134-434); RBC 4.27 M/mm3 (4.00-5.60); RDW 15.8 % (11.9-15.9); WHITE BLOOD COUNT 7.1 K/mm3 (4.0-10.0)
[2018-06-02 06:30] LABS: INR 1.03 (0.83-1.09); PROTHROMBIN TIME (PATIENT) 12.1 SEC (9.7-13.0)
--- NOTE | 2018-06-02 06:33 | PDOC ---
History of Present Illness - General Chief Complaint: Shortness of Breath Stated Complaint: DIFFICULTY BREATHING Time Seen by Provider: 06/02/18 05:20 History Source: Patient Exam Limitations: No Limitations - History of Present Illness Initial Comments: 06/02/18 06:32 Patient is a 47M with history of opiate abuse, tobacco abuse, COPD, mediastinal mass here today complaining of shortness of breath that started yesterday. Patient states that he took his inhaler multiple times until it ran out. He called 911 because his inhaler had run out. EMS reports that he was satting 90% and was given 2 duonebs in the field along with 10mg of dex. Endorses associated cough with no change to sputum or productivity. Denies fevers, chills , nausea, vomiting. Denies recent leg swelling and history of PEs. Patient is actively using heroin at this time. Denies chest pain. Denies abdominal pain, dysuria. Past History - Past Medical History Allergies/Adverse Reactions: Allergies Allergy/AdvReac Type Severity Reaction Status Date / Time No Known Allergies Allergy Verified 06/02/18 06:23 Home Medications: Ambulatory Orders Albuterol Sulfate Inhaler - [Ventolin HFA Inhaler -] 1 - 2 inh PO QID PRN #1 inhaler 05/23/18 Albuterol 2.5/Ipratropium 0.5 [Duoneb -] 1 neb NEB Q4H #2 vial 05/27/18 Albuterol Sulfate [Proair Hfa] 8.5 gm IH PRN PRN #1 hfa.aer.ad 06/02/18 Prednisone [Prednisone 50 MG TABLETS] 50 mg PO DAILY #5 tablet 06/02/18 Anemia: No Asthma: Yes Cancer: No Cardiac Disorders: No CVA: No COPD: No CHF: No DVT: No Dementia: No Diabetes: No GI Disorders: No Disorders: No HTN: No Hypercholesterolemia: No Kidney Stones: No Liver Disease: No Seizures: No Thyroid Disease: No - Surgical History Abdominal Surgery: No Appendectomy: No Cardiac Surgery: No Cholecystectomy: No Lung Surgery: No Neurologic Surgery: No Orthopedic Surgery: No - Reproductive History Testicular Surgery: No - Immunization History Td Vaccination: Yes Immunization Up to Date: Yes - Suicide/Smoking/Psychosocial Hx Smoking Status: Yes Smoking History: Never smoked Years of Tobacco Use: 40 Have you smoked in the past 12 months: No Number of Cigarettes Smoked Daily: 20 If you are a former smoker, when did you quit?: 2014 Cigars Per Day: 0 'Breaking Loose' booklet given: 11/08/17 Hx Alcohol Use: No Drug/Substance Use Hx: No Substance Use Type: Cocaine, Heroin Hx Substance Use Treatment: Yes ([facility] 03/11/17 to 03/13/17 not completed) Review of Systems - Review of Systems Comments:: 06/02/18 06:35 GENERAL/CONSTITUTIONAL: No fever or chills. No weakness. HEAD, EYES, EARS, NOSE AND THROAT: No change in vision. No sore throat. CARDIOVASCULAR: No chest pain +shortness of breath RESPIRATORY: +cough, +wheezing, no hemoptysis. GASTROINTESTINAL: No nausea, vomiting, diarrhea or constipation. GENITOURINARY: No dysuria, frequency, or change in urination. MUSCULOSKELETAL: No joint or muscle swelling or pain. No neck or back pain. SKIN: No rash NEUROLOGIC: No headache, vertigo, loss of consciousness, or change in strength/ sensation. ENDOCRINE: No increased thirst. No abnormal weight change HEMATOLOGIC/LYMPHATIC: No anemia, easy bleeding, or history of blood clots. ALLERGIC/IMMUNOLOGIC: No hives or skin allergy. *Physical Exam - Vital Signs Last Vital Signs Temp Pulse Resp BP Pulse Ox 98.3 F 86 22 H 155/91 94 L 06/02/18 05:22 06/02/18 05:22 06/02/18 05:22 06/02/18 05:22 06/02/18 05:50 - Physical Exam Comments: 06/02/18 06:36 GENERAL: Awake, alert, and fully oriented, in no acute distress HEAD: No signs of trauma, normocephalic, atraumatic EYES: PERRLA, EOMI, sclera anicteric, conjunctiva clear ENT: Auricles normal inspection, hearing grossly normal, nares patent, oropharynx clear without exudates. Moist mucosa NECK: Normal ROM, supple, no lymphadenopathy, JVD, or masses LUNGS: No distress, speaks full sentences, wheezing bilaterally HEART: Regular rate and rhythm, normal S1 and S2, no murmurs, rubs or gallops, peripheral pulses normal and equal bilaterally. ABDOMEN: Soft, nontender, normoactive bowel sounds. No guarding, no rebound. No masses EXTREMITIES: Normal inspection, Normal range of motion, no edema. No clubbing or cyanosis. NEUROLOGICAL: Cranial nerves II through XII grossly intact. Normal speech, no focal sensorimotor deficits SKIN: Warm, Dry, normal turgor, no rashes or lesions noted. Moderate Sedation - Procedure Monitoring Vital Signs: Procedure Monitoring Vital Signs Temperature 98.3 F 06/02/18 05:22 Pulse Rate 86 06/02/18 05:22 Respiratory Rate 22 H 06/02/18 05:22 Blood Pressure 155/91 06/02/18 05:22 O2 Sat by Pulse Oximetry (%) 94 L 06/02/18 05:50 ED Treatment Course - LABORATORY CBC & Chemistry Diagram: 06/02/18 05:40 06/02/18 05:40 - ADDITIONAL ORDERS Additional order review: Laboratory Results 06/02/18 05:40 PT with INR 12.10 INR 1.03 06/02/18 05:40 RBC 4.27 MCV 80.9 MCHC 33.3 RDW 15.8 MPV 7.6 Neutrophils % 63.3 Lymphocytes % 22.5 Monocytes % 7.8 Eosinophils % 5.2 H Basophils % 1.2 - RADIOLOGY Radiology Studies Ordered: Category Date Time Status CHEST X-RAY PORTABLE* [RAD] Stat Radiology 06/02/18 05:22 Ordered - Medications Given in the ED: ED Medications Discontinued Medications Generic Name Dose Route Start Last Admin Trade Name Freq PRN Reason Stop Dose Admin Albuterol/Ipratropium 2 amp 06/02/18 05:22 06/02/18 05:50 Duoneb - NEB 06/02/18 05:23 2 amp ONCE ONE Administration Medical Decision Making - Medical Decision Making 06/02/18 06:37 Patient is a 47M with a history of COPD, opiate abuse here today with shortness of breath. Wheezing on exam, afebrile, not in failure. Given steroids in field. DDx includes, but is not limited to: copd ex, pneumonia, bronchitis. Will treat with additional duonebs, reassess. History of elopement. PCP - Sayegh. Calvin Thomas. 06/02/18 06:57 Desatted to 83% while walking to bathroom. *DC/Admit/Observation/Transfer Diagnosis at time of Disposition: Asthma exacerbation Qualifiers: Asthma severity: mild Asthma persistence: unspecified Qualified Code(s): J45.901 - Unspecified asthma with (acute) exacerbation - Discharge Dispostion Disposition: HOME Condition at time of disposition: Good - Prescriptions Prescriptions: Albuterol Sulfate [Proair Hfa] 8.5 gm IH PRN PRN #1 hfa.aer.ad PRN Reason: Asthma Prednisone [Prednisone 50 MG TABLETS] 50 mg PO DAILY #5 tablet - Referrals Referrals: Eric Yanez MD [Primary Care Provider] - - Patient Instructions Printed Discharge Instructions: DI for Asthma -- Adult Additional Instructions: You were seen today for difficulty breathing. Your symptoms were likely worsening of your asthma after running out of medication. I have sent two prescriptions to your pharmacy. The first is a refill on your ProAir. The second is prednisone, a steroid. Take this as written on the package. Follow up with your primary care doctor within the next 3-4 days. You will need to call to make an appointment. Make sure you get refills on your prescriptions! Go to the nearest emergency department if your condition worsens or you feel like you need additional emergency evaluation. Print Language: UKRAINIAN - Post Discharge Activity
[2018-06-02 06:56] LABS: ALBUMIN 3.5 g/dl (3.4-5.0); ALK PHOS 86 U/L (45-117); ANION GAP 6 MMOL/L (8-16); BILIRUBIN,TOTAL 0.2 mg/dL (0.2-1); BLOOD UREA NITROGEN 13 mg/dL (7-18); CALCIUM 8.6 mg/dL (8.5-10.1); CHLORIDE 105 mmol/L (98-107); CO2 30 mmol/L (21-32); CREATININE 0.8 mg/dL (0.55-1.3); GLUCOSE,RANDOM 116 mg/dL (74-106); MAGNESIUM 1.9 mg/dL (1.8-2.4); POTASSIUM 4.1 mmol/L (3.5-5.1); SGOT/AST 13 U/L (15-37); SGPT/ALT 25 U/L (13-61); SODIUM 141 mmol/L (136-145); TOT PROT 6.7 g/dl (6.4-8.2)
--- NOTE | 2018-06-02 07:26 | PDOC ---
*Physical Exam - Vital Signs Last Vital Signs Temp Pulse Resp BP Pulse Ox 98.3 F 86 22 H 155/91 94 L 06/02/18 05:22 06/02/18 05:22 06/02/18 05:22 06/02/18 05:22 06/02/18 05:50 - Physical Exam General Appearance: No: Apparent Distress HEENT: positive: Normal Voice Neck: positive: Supple Respiratory/Chest: positive: Accessory Muscle Use, Wheezing (Diffuse). negative : Chest Tender, Respiratory Distress, Decreased Breath Sounds, Crackles, Rales, Rhonchi, Stridor Cardiovascular: positive: Regular Rhythm, Regular Rate ED Treatment Course - LABORATORY CBC & Chemistry Diagram: 06/02/18 05:40 06/02/18 05:40 - ADDITIONAL ORDERS Additional order review: Laboratory Results 06/02/18 06/02/18 05:40 05:40 PT with INR 12.10 INR 1.03 Sodium 141 Potassium 4.1 Chloride 105 Carbon Dioxide 30 Anion Gap 6 L BUN 13 Creatinine 0.8 Creat Clearance w eGFR > 60 Random Glucose 116 H Calcium 8.6 Magnesium 1.9 Total Bilirubin 0.2 AST 13 L ALT 25 Alkaline Phosphatase 86 Creatine Kinase 91 Troponin I < 0.02 Total Protein 6.7 Albumin 3.5 06/02/18 05:40 RBC 4.27 MCV 80.9 MCHC 33.3 RDW 15.8 MPV 7.6 Neutrophils % 63.3 Lymphocytes % 22.5 Monocytes % 7.8 Eosinophils % 5.2 H Basophils % 1.2 - Medications Given in the ED: ED Medications Discontinued Medications Generic Name Dose Route Start Last Admin Trade Name Remberto PRN Reason Stop Dose Admin Albuterol/Ipratropium 2 amp 06/02/18 05:22 06/02/18 05:50 Duoneb - NEB 06/02/18 05:23 2 amp ONCE ONE Administration Medical Decision Making - Medical Decision Making 06/02/18 07:00 Received sign out from resident Dr. Rhodes. In short, the pt is a 47 y/o male complaining of shortness of breath and poor exertional tolerance. Symptoms started yesterday. H/o COPD/Asthma. Active heroin user. Reports running out of albuterol prescription. Received DuoNeb and Dexamethasone by EMS. Has received two further DuoNebs in the department. Pt reassessed. Reports he has become SOB while walking to bathroom and vending machine. Diffuse wheezing noted throughout. Pt assisted in remaking his bed. Noted to desat to 88% while active - good pleth was noted on monitor. Ordered additional albuterol nebs and mag. CXR unremarkable for acute cardiopulmonary process. Suspect symptoms are likely acute asthma exacerbation secondary to medication noncompliance. Pt reassessed. Much improved wheezing. Pt observed walking throughout the department multiple times without obvious discomfort. Will prescribe refill for ProAir and five day Prednisone pulse dose. Discussed imaging and laboratory results with pt. Answered all questions. Provided return precautions. Pt expressed verbal understanding and agreement with plan to discharge home with outpatient follow up. *DC/Admit/Observation/Transfer Diagnosis at time of Disposition: Asthma exacerbation Qualifiers: Asthma severity: mild Asthma persistence: unspecified Qualified Code(s): J45.901 - Unspecified asthma with (acute) exacerbation - Discharge Dispostion Disposition: HOME Condition at time of disposition: Good Decision to Admit order: No - Prescriptions Prescriptions: Albuterol Sulfate [Proair Hfa] 8.5 gm IH PRN PRN #1 hfa.aer.ad PRN Reason: Asthma Prednisone [Prednisone 50 MG TABLETS] 50 mg PO DAILY #5 tablet - Referrals Referrals: Eric Yanez MD [Primary Care Provider] - - Patient Instructions Printed Discharge Instructions: DI for Asthma -- Adult Additional Instructions: You were seen today for difficulty breathing. Your symptoms were likely worsening of your asthma after running out of medication. I have sent two prescriptions to your pharmacy. The first is a refill on your ProAir. The second is prednisone, a steroid. Take this as written on the package. Follow up with your primary care doctor within the next 3-4 days. You will need to call to make an appointment. Make sure you get refills on your prescriptions! Go to the nearest emergency department if your condition worsens or you feel like you need additional emergency evaluation. Print Language: SWISS - Post Discharge Activity
[2018-06-02] MEDS ORDERED: ALBUTEROL SO4 0.042% IH SOL 1.25 MG/3 ML VIAL.NEB NEB ONE (07:53)
[2018-06-02 08:15] LABS: N-TERMINAL BNP 28.6 pg/ml (5-125)
[2018-06-02] MEDS ORDERED: MAGNESIUM SULF 50% (8.12 MEQ/2 ML-1 GM VIAL) IVPB ONE (08:23)
[2018-06-02 11:09] VITALS: BP 112/72; PULSE 85; TEMP 98.9
--- NOTE | 2018-06-02 12:47 | EKG ---
Test Reason : Blood Pressure : / mmHG Vent. Rate : 084 BPM Atrial Rate : 084 BPM P-R Int : 158 ms QRS Dur : 082 ms QT Int : 364 ms P-R-T Axes : 049 003 032 degrees QTc Int : 430 ms NORMAL SINUS RHYTHM NORMAL ECG WHEN COMPARED WITH ECG OF 19-MAY-2018 03:47, NO SIGNIFICANT CHANGE WAS FOUND Confirmed by NIRMAL MACKAY MD ([id number]) on 06/02/2018 12:46:41 PM Referred By: Confirmed By:NIRMAL MACKAY MD
== END 2018-06-02 11:00 | disposition home or self-care (01) ==
LOC: JER 05:17
PROC: 3E0F7GC Introduction of Other Therapeutic Substance into Respiratory Tract, Via Natural or Artificial Opening (ICD-10-PCS; principal; 2018-06-02)
PROC: 3E0F7GC Introduction of Other Therapeutic Substance into Respiratory Tract, Via Natural or Artificial Opening (ICD-10-PCS; 2018-06-02)
DX: J45.901 Unspecified asthma with (acute) exacerbation (principal); F11.10 Opioid abuse, uncomplicated
CPT/HCPCS: 36415; 71045-TC-FY; 80053; 82550; 83735; 83880; 84484; 85025; 85610; 93005; 93010; 94640; 96374; 99283-25

== ENCOUNTER 2018-06-24 01:58 | Inpatient (IN) | payer OTHER ==
[2018-06-24] MEDS: ALBUTEROL SO4 0.083% IH SOL 2.5 MG/3 ML VIAL.NEB. NEB PRN ×3 (02:30→03:20)
--- NOTE | 2018-06-24 02:34 | PDOC ---
History of Present Illness - General Chief Complaint: Shortness of Breath Stated Complaint: SHORTNESS OF BREATH Time Seen by Provider: 06/24/18 02:33 History Source: Patient - History of Present Illness Initial Comments: 06/24/18 02:35 47 year old male with history of opiate abuse, tobacco abuse, COPD, mediastinal mass here today complaining of shortness of breath and wheezing. yesterday patient reported that heroin at 6 Pm patient reports that he used his inhaler with no relief in shortness of breath. denies fever / chills. noted to have b/l lower extremity edema which is chronic in nature Past History - Past Medical History Allergies/Adverse Reactions: Allergies Allergy/AdvReac Type Severity Reaction Status Date / Time No Known Allergies Allergy Verified 06/24/18 02:26 Home Medications: Ambulatory Orders Albuterol Sulfate Inhaler - [Ventolin HFA Inhaler -] 1 - 2 inh PO QID PRN #1 inhaler 05/23/18 Albuterol 2.5/Ipratropium 0.5 [Duoneb -] 1 neb NEB Q4H #2 vial 05/27/18 Albuterol Sulfate [Proair Hfa] 8.5 gm IH PRN PRN #1 hfa.aer.ad 06/02/18 Prednisone [Prednisone 50 MG TABLETS] 50 mg PO DAILY #5 tablet 06/02/18 Anemia: No Asthma: Yes Cancer: No Cardiac Disorders: No CVA: No COPD: No CHF: No DVT: No Dementia: No Diabetes: No GI Disorders: No Disorders: No HTN: No Hypercholesterolemia: No Kidney Stones: No Liver Disease: No Seizures: No Thyroid Disease: No - Surgical History Abdominal Surgery: No Appendectomy: No Cardiac Surgery: No Cholecystectomy: No Lung Surgery: No Neurologic Surgery: No Orthopedic Surgery: No - Reproductive History Testicular Surgery: No - Immunization History Td Vaccination: Yes Immunization Up to Date: Yes - Suicide/Smoking/Psychosocial Hx Smoking Status: Yes Smoking History: Never smoked Years of Tobacco Use: 40 Have you smoked in the past 12 months: No Number of Cigarettes Smoked Daily: 20 If you are a former smoker, when did you quit?: 2015 Cigars Per Day: 0 Information on smoking cessation initiated: No 'Breaking Loose' booklet given: 11/08/17 Hx Alcohol Use: No Drug/Substance Use Hx: Yes (heroin) Substance Use Type: Cocaine, Heroin Hx Substance Use Treatment: Yes ([facility] 03/11/17 to 03/13/17 not completed) Respiratory Specific PMHX - Complaint Specific PMHX TB (Tuberculosis): No Review of Systems - Review of Systems Able to Perform ROS?: Yes Is the patient limited Kyrgyz proficient: No Constitutional: No: Symptoms Reported, See HPI, Chills, Diaphoresis, Fever, Loss of Appetite, Malaise, Night Sweats, Weakness, Weight Stable, Unintentional Wgt. Loss, Unexplained wgt Loss, Other HEENTM: Yes: Nose Congestion. No: Symptoms Reported, See HPI, Eye Pain, Blurred Vision, Tearing, Recent change in vision, Double Vision, Cataracts, Ear Pain, Ocular Prothesis, Ear Discharge, Nose Pain, Tinnitus, Nose Bleeding, Hearing Loss, Throat Pain, Throat Swelling, Mouth Pain, Dental Problems, Difficulty Swallowing, Mouth Swelling, Other Respiratory: Yes: Cough, SOB at Rest. No: Symptoms reported, See HPI, Orthopnea , Shortness of Breath, SOB with Exertion, Stridor, Wheezing, Productive cough, Hemoptysis, Other Cardiac (ROS): No: Symptoms Reported, See HPI, Chest Pain, Edema, Irregular Heart Rate, Lightheadedness, Palpitations, Syncope, Chest Tightness, Other *Physical Exam - Vital Signs Last Vital Signs Temp Pulse Resp BP Pulse Ox 98.8 F 95 H 22 H 145/79 96 06/24/18 01:58 06/24/18 01:58 06/24/18 01:58 06/24/18 01:58 06/24/18 01:58 - Physical Exam General Appearance: Yes: Appropriately Dressed Respiratory/Chest: positive: Decreased Breath Sounds, Wheezing Cardiovascular: positive: Regular Rate Gastrointestinal/Abdominal: positive: Normal Bowel Sounds, Soft. negative: Tender Musculoskeletal: positive: Normal Inspection Extremity: positive: Normal Capillary Refill, Swelling (b/l lower extremity pitting edema) Integumentary: positive: Normal Color, Dry, Warm Neurologic: positive: Fully Oriented, Alert, Normal Mood/Affect Moderate Sedation - Procedure Monitoring Vital Signs: Procedure Monitoring Vital Signs Temperature 98.8 F 06/24/18 01:58 Pulse Rate 95 H 06/24/18 01:58 Respiratory Rate 22 H 06/24/18 01:58 Blood Pressure 145/79 06/24/18 01:58 O2 Sat by Pulse Oximetry (%) 96 06/24/18 01:58 ED Treatment Course - LABORATORY CBC & Chemistry Diagram: 06/24/18 03:09 06/24/18 03:09 Progress Note - Progress Note Progress Note: A: copd exacerbation asthma exacerbation P: labs ekg chest xray duoneb magnesium IV patient admitted to Dr. Diaz for further managemenr of care. Medical Decision Making - Medical Decision Making patient refused influenza and HIV test. 06/24/18 05:03 o2 sat 91% on room air will admit due to hypoxia. patient signed out to Dr. diaz *DC/Admit/Observation/Transfer Diagnosis at time of Disposition: Asthma with COPD with exacerbation, SOB (shortness of breath) - Discharge Dispostion Condition at time of disposition: Fair Decision to Admit order: Yes - Referrals - Patient Instructions - Post Discharge Activity
[2018-06-24] MEDS ORDERED: methylPREDNISolone NA SUCC 125 MG/2 ML VIAL IVPB ONE (02:45)
[2018-06-24] MEDS ORDERED: ALBUTEROL SO4 0.083% IH SOL 2.5 MG/3 ML VIAL.NEB. NEB ONE ×3 (03:00→04:09)
[2018-06-24] MEDS ORDERED: methylPREDNISolone NA SUCC 125 MG/2 ML VIAL ONE (03:01)
[2018-06-24] MEDS ORDERED: methylPREDNISolone NA SUCC 125 MG/2 ML VIAL IM ONE (03:02)
[2018-06-24 03:27] LABS: BASO % 1.1 % (0-2.0); EOS % 4.7 % (0-4.5); HEMATOCRIT 30.8 % (35.4-49); HEMOGLOBIN 10.4 GM/dL (11.7-16.9); LYMPH % 42.2 % (8-40); MCH 27.2 pg (25.7-33.7); MCHC 33.6 g/dl (32.0-35.9); MEAN PLT VOLUME 7.6 fl (7.5-11.1); MONO % 14.7 % (3.8-10.2); NEUT % 37.3 % (42.8-82.8); PLATELET COUNT 165 K/MM3 (134-434); RDW 15.5 % (11.9-15.9); WHITE BLOOD COUNT 2.9 K/mm3 (4.0-10.0)
[2018-06-24] MEDS ORDERED: methylPREDNISolone NA SUCC 125 MG/2 ML VIAL IVPUSH ONE (03:28)
[2018-06-24 03:57] LABS: ALK PHOS 83 U/L (45-117); ANION GAP 9 MMOL/L (8-16); BILIRUBIN,TOTAL 0.2 mg/dL (0.2-1); BLOOD UREA NITROGEN 7 mg/dL (7-18); CALCIUM 7.9 mg/dL (8.5-10.1); CHLORIDE 109 mmol/L (98-107); CO2 27 mmol/L (21-32); CREATININE 0.8 mg/dL (0.55-1.3); GLUCOSE,RANDOM 103 mg/dL (74-106); POTASSIUM 3.6 mmol/L (3.5-5.1); SGOT/AST 14 U/L (15-37); SGPT/ALT 19 U/L (13-61); SODIUM 144 mmol/L (136-145); TOT PROT 5.8 g/dl (6.4-8.2)
[2018-06-24 03:58] LABS: N-TERMINAL BNP 98.6 pg/ml (5-125)
[2018-06-24] MEDS ORDERED: MAGNESIUM SULF 50% (8.12 MEQ/2 ML-1 GM VIAL) IVPB ONE (04:01)
[2018-06-24] MEDS ORDERED: MAGNESIUM 1GM/D5W - 2 GM/200 ML IVPB IVPB ONE (04:09)
[2018-06-24] MEDS ORDERED: CEFTRIAXONE 1,000 MG in DEXTROSE 5%-WATER - 50 ML IVPB ONE (05:12)
[2018-06-24] MEDS ORDERED: CEFTRIAXONE 1 GM/50 ML BAG ONE (05:21)
--- NOTE | 2018-06-24 11:20 | EKG ---
Test Reason : Blood Pressure : / mmHG Vent. Rate : 087 BPM Atrial Rate : 087 BPM P-R Int : 178 ms QRS Dur : 084 ms QT Int : 366 ms P-R-T Axes : 059 043 062 degrees QTc Int : 440 ms NORMAL SINUS RHYTHM NORMAL ECG WHEN COMPARED WITH ECG OF 02-JUN-2018 06:15, NO SIGNIFICANT CHANGE WAS FOUND Confirmed by MARY WORTHY MD ([id number]) on 06/24/2018 11:19:52 AM Referred By: Confirmed By:MARY WORTHY MD
[2018-06-24] MEDS: methylPREDNISolone NA SUCC 40 MG/1 ML VIAL IVPUSH SCH ×2 (12:54→18:23)
[2018-06-24] MEDS: HEPARIN NA (PORCINE) 5,000 UNITS/ML 1ML VIAL SQ SCH ×2 (12:55→23:27)
--- NOTE | 2018-06-24 13:31 | CON.PULM ---
Consult Consult Specialty:: PULMONARY Referred by:: Dr. Diaz Reason for Consultation:: shortness of breath - History of Present Illness Chief Complaint: shortness of breath History of Present Illness: 47yo male with h/o asthma/COPD, opiate abuse, smoker who was admitted with worsening shortness of breath, cough and wheezing. Symptoms started shortly after inhaling heroin. No fevers but with chills. +cough nonproductive. Pt with multiple admissions with similar presentation. States he uses his Symbicort once a day and albuterol as needed. No chest pain or palpitations. He states he is open to rehab this time. - History Source History Provided By: Patient, Medical Record Limitations to Obtaining History: No Limitations - Past Medical History Pulmonary: Yes: Asthma, Bronchitis, COPD Psych: Yes: Addictions (heroin) - Past Surgical History Past Surgical History: Yes: None - Alcohol/Substance Use Hx Alcohol Use: No History of Substance Use: reports: Heroin - Smoking History Smoking history: Never smoked Have you smoked in the past 12 months: No Aproximately how many cigarettes per day: 20 If you are a former smoker, when did you quit?: 2014 - Social History ADL: Independent Occupation: Unemployed History of Recent Travel: No Home Medications - Allergies Allergies/Adverse Reactions: Allergies Allergy/AdvReac Type Severity Reaction Status Date / Time No Known Allergies Allergy Verified 06/24/18 02:26 - Home Medications Home Medications: Ambulatory Orders Albuterol Sulfate Inhaler - [Ventolin HFA Inhaler -] 1 - 2 inh PO QID PRN #1 inhaler 05/23/18 Albuterol 2.5/Ipratropium 0.5 [Duoneb -] 1 neb NEB Q4H #2 vial 05/27/18 Albuterol Sulfate [Proair Hfa] 8.5 gm IH PRN PRN #1 hfa.aer.ad 06/02/18 Prednisone [Prednisone 50 MG TABLETS] 50 mg PO DAILY #5 tablet 06/02/18 Family Disease History - Family Disease History Family Disease History: Diabetes: Mother, CA: Father (.) Review of Systems - Review of Systems Constitutional: reports: Chills, Weakness. denies: Fever Eyes: denies: Recent Change in Vision HENT: denies: Nasal Congestion, Throat Pain Neck: denies: Stiffness, Tenderness Cardiovascular: reports: Shortness of Breath. denies: Chest Pain Respiratory: reports: Cough, Wheezing. denies: Hemoptysis Gastrointestinal: denies: Abdominal Pain, Nausea, Vomiting Genitourinary: denies: Dysuria, Hematuria Neurological: denies: Dizziness, Headache Endocrine: denies: Unexplained Weight Loss Physical Exam Vital Sings: Vital Signs Temperature 97.7 F 06/24/18 07:00 Pulse Rate 80 06/24/18 07:00 Respiratory Rate 16 06/24/18 07:00 Blood Pressure 127/77 06/24/18 07:00 O2 Sat by Pulse Oximetry (%) 98 06/24/18 07:00 Constitutional: Yes: Calm, Mild Distress Eyes: Yes: Conjunctiva Clear, EOM Intact HENT: Yes: Atraumatic, Normocephalic Neck: Yes: Supple, Trachea Midline Cardiovascular: Yes: Regular Rate and Rhythm Respiratory: Yes: Rhonchi, Wheezes ...Clubbing: No Gastrointestinal: Yes: Normal Bowel Sounds, Soft. No: Tenderness Edema: Yes Labs: CBC, BMP 06/24/18 03:09 06/24/18 03:09 Imaging - Results Chest X-ray: Report Reviewed, Image Reviewed (no infiltrates) Problem List - Problems (1) Asthma with COPD with exacerbation Code(s): J44.1 - CHRONIC OBSTRUCTIVE PULMONARY DISEASE W (ACUTE) EXACERBATION; J45.901 - UNSPECIFIED ASTHMA WITH (ACUTE) EXACERBATION (2) Heroin abuse Code(s): F11.10 - OPIOID ABUSE, UNCOMPLICATED (3) Nicotine dependence Code(s): F17.200 - NICOTINE DEPENDENCE, UNSPECIFIED, UNCOMPLICATED Qualifiers: (4) Tobacco abuse Code(s): Z72.0 - TOBACCO USE Assessment/Plan Acute Asthma/COPD Exacerbation Heroin Abuse Smoker Lung Nodule Mediastinal Nodule - IV medrol - inhaled bronchodilators standing and PRN - start singulair - O2 to keep SpO2 >90% - monitor peak flow - CT chest noncontrast to f/u lung/mediastinal nodules - addiction medicine eval as pt interested in rehab/detox - DVT prophylaxis Thank you for this consult Fletcher Rdz MD
[2018-06-24] MEDS ORDERED: ALBUTEROL SO4 0.083% IH SOL 2.5 MG/3 ML VIAL.NEB. NEB PRN (13:34)
[2018-06-24] MEDS: ALBUTEROL SO4 2.5/IPRATROPIUM 0.5 INH SOL 3 ML VIAL.NEB. NEB SCH ×2 (15:26→21:30)
[2018-06-24] MEDS ORDERED: cloNIDine HCL 0.1 MG TABLET PO PRN (17:13)
[2018-06-24] MEDS ORDERED: METHADONE HCL 10 MG TABLET PO ONE (17:13)
[2018-06-24 19:07] VITALS: BMI 25.4
--- NOTE | 2018-06-24 22:54 | HP ---
Admitting History and Physical - Past Medical History Pulmonary: Yes: Asthma, Bronchitis, COPD Psych: Yes: Addictions (heroin) - Past Surgical History Past Surgical History: Yes: None - Smoking History Smoking history: Never smoked Have you smoked in the past 12 months: No Aproximately how many cigarettes per day: 20 If you are a former smoker, when did you quit?: 2014 - Alcohol/Substance Use Hx Alcohol Use: No History of Substance Use: reports: Heroin - Social History ADL: Independent Occupation: Unemployed History of Recent Travel: No Home Medications - Allergies Allergies/Adverse Reactions: Allergies Allergy/AdvReac Type Severity Reaction Status Date / Time No Known Allergies Allergy Verified 06/24/18 02:26 - Home Medications Home Medications: Ambulatory Orders Albuterol Sulfate Inhaler - [Ventolin HFA Inhaler -] 1 - 2 inh PO QID PRN #1 inhaler 05/23/18 Albuterol 2.5/Ipratropium 0.5 [Duoneb -] 1 neb NEB Q4H #2 vial 05/27/18 Albuterol Sulfate [Proair Hfa] 8.5 gm IH PRN PRN #1 hfa.aer.ad 06/02/18 Prednisone [Prednisone 50 MG TABLETS] 50 mg PO DAILY #5 tablet 06/02/18 Family Disease History - Family Disease History Family Disease History: Diabetes: Mother, CA: Father (.) Physical Examination Vital Signs: Vital Signs Temperature 98.0 F 06/24/18 18:00 Pulse Rate 82 06/24/18 18:00 Respiratory Rate 20 06/24/18 18:00 Blood Pressure 142/73 06/24/18 18:00 O2 Sat by Pulse Oximetry (%) 98 06/24/18 10:10 Labs: CBC, BMP 06/24/18 03:09 06/24/18 03:09
[2018-06-24] MEDS ORDERED: PT OWN MED DRAWER 7, Y5N ONE (23:26)
[2018-06-24] MEDS: MONTELUKAST NA 10 MG TABLET PO SCH (23:27)
[2018-06-24] MEDS: BUDESONIDE/FORMETEROL FUMARATE 160/4.5 mcg INHALER IH SCH (23:28)
[2018-06-25] MEDS: methylPREDNISolone NA SUCC 40 MG/1 ML VIAL IVPUSH SCH ×3 (02:53→17:10)
[2018-06-25] MEDS: ALBUTEROL SO4 2.5/IPRATROPIUM 0.5 INH SOL 3 ML VIAL.NEB. NEB SCH ×4 (08:54→19:59)
[2018-06-25] MEDS ORDERED: cefTRIAXone SODIUM 1 GM VIAL ONE (09:29)
[2018-06-25] MEDS ORDERED: DEXTROSE 5%-WATER - 50 ML IVPB ONE (09:29)
[2018-06-25] MEDS: HEPARIN NA (PORCINE) 5,000 UNITS/ML 1ML VIAL SQ SCH ×2 (09:35→21:13)
[2018-06-25] MEDS: CEFTRIAXONE 1 GM in DEXTROSE 5%-WATER - 50 ML IVPB SCH (09:36)
[2018-06-25] MEDS: BUDESONIDE/FORMETEROL FUMARATE 160/4.5 mcg INHALER IH SCH ×2 (09:43→21:13)
--- NOTE | 2018-06-25 10:46 | PN ---
[facility] Progress Note (SOAP) Subjective: patient referred for consultation , reports use of heroin via inhalation x 10 years , approximately 7 bags /day denies IVDU , most recent use on Sunday ( 2 days ago ) currently reports nausea, vomiting, tremors, anxiety , irritability , chills, sweating, detox in 2017 at [facility] , did not participate in outpatient program after d/ . Pt admitted for asthma exacerbation / COPD , currently on IV antibiotics . + cocaine use via inhalation , not daily , + tobacco use , reports relapse on ETOH , current daily use 1 x 6-pk , reports tremors if not drinking , denies blackouts, seizures or falls while intoxicated. Active Medications Albuterol Sulfate (Ventolin 0.083% Nebulizer Soln -) 1 amp NEB Q4H PRN PRN Reason: SHORT OF BREATH/WHEEZING Albuterol/Ipratropium (Duoneb -) 1 amp NEB RQID VARSHA Last Admin: 06/25/18 08:54 Dose: Not Given Budesonide/Formoterol Fumarate (Symbicort 160/4.5mcg -) 2 puff IH BID VARSHA Last Admin: 06/25/18 09:43 Dose: 2 puff Clonidine (Catapres -) 0.1 mg PO Q6H PRN PRN Reason: Withdrawal Symptoms Stop: 06/26/18 23:59 Heparin Sodium (Porcine) (Heparin -) 5,000 unit SQ BID VARSHA Last Admin: 06/25/18 09:35 Dose: Not Given Ceftriaxone Sodium 1 gm/ (Dextrose) 50 mls @ 100 mls/hr IVPB DAILY VARSHA; Protocol Last Admin: 06/25/18 09:36 Dose: 100 mls/hr Methylprednisolone Sodium Succinate (Solu-Medrol -) 40 mg IVPUSH Q8H-IV VARSHA Last Admin: 06/25/18 09:35 Dose: 40 mg Montelukast Sodium (Singulair -) 10 mg PO HS VARSHA Last Admin: 06/24/18 23:27 Dose: 10 mg Objective: wnwd . Moderate distress . HEENT : NCAT EOMi , pupils larger than normal , NCAT Resp : no distress noted Ext : + UE tremors Neuro :AAO x 3 CBC, BMP 06/24/18 03:09 06/24/18 03:09 Vital Signs - 24 hr 0306/24/18 06/24/18 15:23 18:00 21:00 Temperature 97.8 F 98.0 F Pulse Rate 80 82 Respiratory 20 20 Rate Blood Pressure 118/65 142/73 O2 Sat by Pulse 98 Oximetry (%) 06/25/18 06:01 Temperature 97.6 F Pulse Rate 77 Respiratory 20 Rate Blood Pressure 139/84 O2 Sat by Pulse Oximetry (%) Assessment: opioid dependence alcohol dependence 06/25/18 12:56 Plan: Methadone detox Valium detox pt to consider inpatient rehab after hospital d/c . Pt verbalizes understanding and agreement w/ POC .
[2018-06-25] MEDS ORDERED: METHADONE HCL 5 MG TABLET PO ONE (10:47)
--- NOTE | 2018-06-25 11:02 | PN ---
Progress Note (short form) - Note Progress Note: PULMONARY Breathing better but still short of breath with cough and wheezing. No fevers or chills. Vital Signs Period Temp Pulse Resp BP Sys/Devries Pulse Ox Last 24 Hr 97.6 F-98.0 F 77-82 20-20 118-142/65-84 98 Gen: less tachypneic Heart: RRR Lung: scattered rhonchi, wheezes Abd: soft, nontender Ext: no edema CBC, BMP 06/24/18 03:09 06/24/18 03:09 Active Medications Albuterol Sulfate (Ventolin 0.083% Nebulizer Soln -) 1 amp NEB Q4H PRN PRN Reason: SHORT OF BREATH/WHEEZING Albuterol/Ipratropium (Duoneb -) 1 amp NEB RQID VARSHA Last Admin: 06/25/18 08:54 Dose: Not Given Budesonide/Formoterol Fumarate (Symbicort 160/4.5mcg -) 2 puff IH BID VARSHA Last Admin: 06/25/18 09:43 Dose: 2 puff Clonidine (Catapres -) 0.1 mg PO Q6H PRN PRN Reason: Withdrawal Symptoms Stop: 06/26/18 23:59 Diazepam (Valium -) 5 mg PO TID VARSHA Stop: 06/25/18 22:01 Diazepam (Valium -) 5 mg PO Q12H VARSHA Stop: 06/26/18 18:01 Diazepam (Valium -) 5 mg PO ONCE ONE Stop: 06/27/18 06:01 Diazepam (Valium -) 10 mg PO Q4H PRN PRN Reason: WITHDRAWAL(CONT SUBST) Stop: 06/28/18 10:45 Heparin Sodium (Porcine) (Heparin -) 5,000 unit SQ BID VARSHA Last Admin: 06/25/18 09:35 Dose: Not Given Ceftriaxone Sodium 1 gm/ (Dextrose) 50 mls @ 100 mls/hr IVPB DAILY VARSHA; Protocol Last Admin: 06/25/18 09:36 Dose: 100 mls/hr Methadone HCl (Dolophine -) 10 mg PO ONCE ONE Stop: 06/26/18 10:01 Methadone HCl (Dolophine -) 5 mg PO ONCE ONE Stop: 06/27/18 06:01 Methylprednisolone Sodium Succinate (Solu-Medrol -) 40 mg IVPUSH Q8H-IV VARSHA Last Admin: 06/25/18 09:35 Dose: 40 mg Montelukast Sodium (Singulair -) 10 mg PO HS VARSHA Last Admin: 06/24/18 23:27 Dose: 10 mg Trazodone HCl (Desyrel -) 50 mg PO HS PRN PRN Reason: INSOMNIA A/P Acute Asthma/COPD Exacerbation Heroin Abuse Smoker Lung Nodule Mediastinal Nodule - continue medrol at current dose - inhaled bronchodilators standing and PRN - singulair - O2 to keep SpO2 >90% - monitor peak flow - CT chest noncontrast to f/u lung/mediastinal nodules - DVT prophylaxis Problem List - Problems (1) Asthma with COPD with exacerbation Code(s): J44.1 - CHRONIC OBSTRUCTIVE PULMONARY DISEASE W (ACUTE) EXACERBATION; J45.901 - UNSPECIFIED ASTHMA WITH (ACUTE) EXACERBATION (2) Heroin abuse Code(s): F11.10 - OPIOID ABUSE, UNCOMPLICATED (3) Nicotine dependence Code(s): F17.200 - NICOTINE DEPENDENCE, UNSPECIFIED, UNCOMPLICATED Qualifiers: (4) Tobacco abuse Code(s): Z72.0 - TOBACCO USE
[2018-06-25] MEDS: diazePAM 5 MG TABLET PO SCH ×3 (11:14→21:14)
[2018-06-25] MEDS: MONTELUKAST NA 10 MG TABLET PO SCH (21:14)
[2018-06-25] MEDS ORDERED: traZODone HCL 50 MG TABLET (FP) PO PRN (22:00)
--- NOTE | 2018-06-25 22:50 | PN ---
Progress Note, Physician History of Present Illness: Pt feeling SOB - Current Medication List Current Medications: Active Medications Albuterol Sulfate (Ventolin 0.083% Nebulizer Soln -) 1 amp NEB Q4H PRN PRN Reason: SHORT OF BREATH/WHEEZING Albuterol/Ipratropium (Duoneb -) 1 amp NEB RQID VARSHA Last Admin: 06/25/18 19:59 Dose: Not Given Budesonide/Formoterol Fumarate (Symbicort 160/4.5mcg -) 2 puff IH BID VARSHA Last Admin: 06/25/18 21:13 Dose: 2 puff Clonidine (Catapres -) 0.1 mg PO Q6H PRN PRN Reason: Withdrawal Symptoms Stop: 06/26/18 23:59 Diazepam (Valium -) 5 mg PO Q12H VARSHA Stop: 06/26/18 18:01 Diazepam (Valium -) 5 mg PO ONCE ONE Stop: 06/27/18 06:01 Diazepam (Valium -) 10 mg PO Q4H PRN PRN Reason: WITHDRAWAL(CONT SUBST) Stop: 06/28/18 10:45 Heparin Sodium (Porcine) (Heparin -) 5,000 unit SQ BID VARSHA Last Admin: 06/25/18 21:13 Dose: Not Given Ceftriaxone Sodium 1 gm/ (Dextrose) 50 mls @ 100 mls/hr IVPB DAILY VARSHA; Protocol Last Admin: 06/25/18 09:36 Dose: 100 mls/hr Methadone HCl (Dolophine -) 10 mg PO ONCE ONE Stop: 06/26/18 10:01 Methadone HCl (Dolophine -) 5 mg PO ONCE ONE Stop: 06/27/18 06:01 Methylprednisolone Sodium Succinate (Solu-Medrol -) 40 mg IVPUSH Q8H-IV VARSHA Last Admin: 06/25/18 17:10 Dose: 40 mg Montelukast Sodium (Singulair -) 10 mg PO HS VARSHA Last Admin: 06/25/18 21:14 Dose: 10 mg Trazodone HCl (Desyrel -) 50 mg PO HS PRN PRN Reason: INSOMNIA Last Admin: 06/25/18 21:13 Dose: 50 mg - Objective Vital Signs: Vital Signs Temperature 98.1 F 06/25/18 21:06 Pulse Rate 82 06/25/18 21:06 Respiratory Rate 20 06/25/18 21:06 Blood Pressure 142/87 06/25/18 21:06 O2 Sat by Pulse Oximetry (%) 98 06/25/18 09:00 Neck: Yes: WNL, Supple Cardiovascular: Yes: WNL, Regular Rate and Rhythm Respiratory: Yes: Wheezes Gastrointestinal: Yes: WNL, Normal Bowel Sounds, Soft Edema: No Labs: CBC, BMP 06/24/18 03:09 06/24/18 03:09 Problem List - Problems (1) Acute asthma exacerbation Assessment/Plan: Cont IV ceftriaxone Cont IV solumedrol Cont inhalers F/U ct scan chest Code(s): J45.901 - UNSPECIFIED ASTHMA WITH (ACUTE) EXACERBATION (2) Heroin abuse Assessment/Plan: Detox w/ methadone Code(s): F11.10 - OPIOID ABUSE, UNCOMPLICATED (3) Nicotine dependence Assessment/Plan: Cont detox w/ methadone Code(s): F17.200 - NICOTINE DEPENDENCE, UNSPECIFIED, UNCOMPLICATED Qualifiers:
[2018-06-26] MEDS: methylPREDNISolone NA SUCC 40 MG/1 ML VIAL IVPUSH SCH ×2 (02:45→11:04)
[2018-06-26] MEDS ORDERED: diazePAM 5 MG TABLET PO SCH (06:00)
[2018-06-26] MEDS: ALBUTEROL SO4 2.5/IPRATROPIUM 0.5 INH SOL 3 ML VIAL.NEB. NEB SCH ×3 (08:12→16:13)
[2018-06-26] MEDS ORDERED: METHADONE HCL 5 MG TABLET PO ONE (10:00)
[2018-06-26] MEDS ORDERED: cefTRIAXone SODIUM 1 GM VIAL ONE (11:02)
[2018-06-26] MEDS ORDERED: DEXTROSE 5%-WATER - 50 ML IVPB ONE (11:02)
[2018-06-26] MEDS: CEFTRIAXONE 1 GM in DEXTROSE 5%-WATER - 50 ML IVPB SCH (11:04)
[2018-06-26] MEDS: HEPARIN NA (PORCINE) 5,000 UNITS/ML 1ML VIAL SQ SCH (11:04)
[2018-06-26] MEDS: BUDESONIDE/FORMETEROL FUMARATE 160/4.5 mcg INHALER IH SCH (11:05)
--- NOTE | 2018-06-26 11:26 | PN ---
Physical Exam: SUBJECTIVE: Patient seen and examined. He says he still feels SOB. OBJECTIVE: Vital Signs Period Temp Pulse Resp BP Sys/Devries Pulse Ox Last 24 Hr 97.3 F-98.2 F 71-85 18-20 125-142/69-87 98 GENERAL: The patient is awake, alert, and fully oriented, in no acute distress. LUNGS: Breath sounds equal, bilateral wheezes, no accessory muscle use. HEART: Regular rate and rhythm, S1, S2 without murmur, rub or gallop. ABDOMEN: Soft, nontender, nondistended, normoactive bowel sounds, no guarding, no rebound, no hepatosplenomegaly, no masses. EXTREMITIES: 2+ pulses, warm, well-perfused, no edema. Active Medications Generic Name Dose Route Start Last Admin Trade Name Freq PRN Reason Stop Dose Admin Albuterol Sulfate 1 amp 06/24/18 13:34 Ventolin 0.083% Nebulizer Soln - NEB Q4H PRN SHORT OF BREATH/WHEEZING Albuterol/Ipratropium 1 amp 06/24/18 16:00 06/26/18 08:12 Duoneb - NEB Not Given RQID VARSHA Budesonide/Formoterol Fumarate 2 puff 06/24/18 22:00 06/26/18 11:05 Symbicort 160/4.5mcg - IH 2 puff BID VARSHA Administration Clonidine 0.1 mg 06/24/18 17:13 Catapres - PO 06/26/18 23:59 Q6H PRN Withdrawal Symptoms Diazepam 5 mg 06/26/18 06:00 06/26/18 05:41 Valium - PO 06/26/18 18:01 5 mg Q12H VARSHA Administration Diazepam 5 mg 06/27/18 06:00 Valium - PO 06/27/18 06:01 ONCE ONE Diazepam 10 mg 06/25/18 10:46 Valium - PO 06/28/18 10:45 Q4H PRN WITHDRAWAL(CONT SUBST) Heparin Sodium (Porcine) 5,000 unit 06/24/18 11:30 06/26/18 11:04 Heparin - SQ Not Given BID VARSHA Ceftriaxone Sodium 1 gm/ 50 mls @ 100 mls/hr 06/25/18 10:00 06/26/18 11:04 Dextrose IVPB 100 mls/hr DAILY VARSHA Administration Protocol Methadone HCl 5 mg 06/27/18 06:00 Dolophine - PO 06/27/18 06:01 ONCE ONE Methylprednisolone Sodium Succinate 40 mg 06/24/18 11:30 06/26/18 11:04 Solu-Medrol - IVPUSH 40 mg Q8H-IV VARSHA Administration Montelukast Sodium 10 mg 06/24/18 22:00 06/25/18 21:14 Singulair - PO 10 mg HS VARSHA Administration Trazodone HCl 50 mg 06/25/18 22:00 06/25/18 21:13 Desyrel - PO 50 mg HS PRN Administration INSOMNIA ASSESSMENT/PLAN: 1. Acute asthma/COPD exacerbation - Continue SoluMedrol, ceftriaxone, Singulair, Symbicort, DuoNeb - Chest CT ordered 2. Opioid dependence - Continue Methadone 3. Nicotine dependence Visit type - Emergency Visit Emergency Visit: Yes ED Registration Date: 06/24/18 Care time: The patient presented to the Emergency Department on the above date and was hospitalized for further evaluation of their emergent condition. - New Patient This patient is new to me today: Yes Date on this admission: 06/26/18 - Critical Care Critical Care patient: No - Discharge Referral Referred to [facility] Med P.C.: No
[2018-06-26] MEDS: diazePAM 5 MG TABLET PO PRN ×2 (11:44→15:44)
--- NOTE | 2018-06-26 13:29 | PN ---
Progress Note, Physician History of Present Illness: pulmonary alert,still dyspnec,+ congestion - Current Medication List Current Medications: Active Medications Albuterol Sulfate (Ventolin 0.083% Nebulizer Soln -) 1 amp NEB Q4H PRN PRN Reason: SHORT OF BREATH/WHEEZING Albuterol/Ipratropium (Duoneb -) 1 amp NEB RQID VARSHA Last Admin: 06/26/18 12:16 Dose: Not Given Budesonide/Formoterol Fumarate (Symbicort 160/4.5mcg -) 2 puff IH BID VARSHA Last Admin: 06/26/18 11:05 Dose: 2 puff Clonidine (Catapres -) 0.1 mg PO Q6H PRN PRN Reason: Withdrawal Symptoms Stop: 06/26/18 23:59 Diazepam (Valium -) 5 mg PO Q12H VARSHA Stop: 06/26/18 18:01 Last Admin: 06/26/18 05:41 Dose: 5 mg Diazepam (Valium -) 5 mg PO ONCE ONE Stop: 06/27/18 06:01 Diazepam (Valium -) 10 mg PO Q4H PRN PRN Reason: WITHDRAWAL(CONT SUBST) Stop: 06/28/18 10:45 Last Admin: 06/26/18 11:44 Dose: 10 mg Heparin Sodium (Porcine) (Heparin -) 5,000 unit SQ BID VARSHA Last Admin: 06/26/18 11:04 Dose: Not Given Ceftriaxone Sodium 1 gm/ (Dextrose) 50 mls @ 100 mls/hr IVPB DAILY VARSHA; Protocol Last Admin: 06/26/18 11:04 Dose: 100 mls/hr Methadone HCl (Dolophine -) 5 mg PO ONCE ONE Stop: 06/27/18 06:01 Methylprednisolone Sodium Succinate (Solu-Medrol -) 40 mg IVPUSH Q8H-IV VARSHA Last Admin: 06/26/18 11:04 Dose: 40 mg Montelukast Sodium (Singulair -) 10 mg PO HS VARSHA Last Admin: 06/25/18 21:14 Dose: 10 mg Trazodone HCl (Desyrel -) 50 mg PO HS PRN PRN Reason: INSOMNIA Last Admin: 06/25/18 21:13 Dose: 50 mg - Objective Vital Signs: Vital Signs Temperature 98 F 06/26/18 09:44 Pulse Rate 78 06/26/18 09:44 Respiratory Rate 18 06/26/18 09:44 Blood Pressure 125/69 06/26/18 09:44 O2 Sat by Pulse Oximetry (%) 98 06/26/18 09:00 Constitutional: Yes: Well Nourished, Calm Eyes: Yes: WNL HENT: Yes: WNL Neck: Yes: WNL Cardiovascular: Yes: Regular Rate and Rhythm, S1, S2 Respiratory: Yes: Wheezes (bilateral wheezes) Gastrointestinal: Yes: Normal Bowel Sounds, Soft Extremities: Yes: WNL Edema: No Labs: CBC, BMP Assessment/Plan A/P Acute Asthma/COPD Exacerbation Heroin Abuse Smoker Lung Nodule Mediastinal Nodule - medrol at current dose - inhaled bronchodilators standing and PRN - singulair - O2 to keep SpO2 >90% - monitor peak flow - CT chest noncontrast to f/u lung/mediastinal nodules - DVT prophylaxis Problem List - Problems (1) Asthma with COPD with exacerbation Code(s): J44.1 - CHRONIC OBSTRUCTIVE PULMONARY DISEASE W (ACUTE) EXACERBATION; J45.901 - UNSPECIFIED ASTHMA WITH (ACUTE) EXACERBATION (2) Heroin abuse Code(s): F11.10 - OPIOID ABUSE, UNCOMPLICATED (3) Nicotine dependence Code(s): F17.200 - NICOTINE DEPENDENCE, UNSPECIFIED, UNCOMPLICATED Qualifiers: (4) Tobacco abuse Code(s): Z72.0 - TOBACCO USE
[2018-06-26 15:39] VITALS: BP 113/72; PULSE 92; TEMP 97.5
--- NOTE | 2018-06-26 17:27 | DS ---
Physical Exam: SUBJECTIVE: Patient seen and examined OBJECTIVE: Vital Signs Period Temp Pulse Resp BP Sys/Devries Pulse Ox Last 24 Hr 97.5 F-98.2 F 71-92 18-20 113-142/69-87 98-98 PHYSICAL EXAM GENERAL: The patient is awake, alert, and fully oriented, in no acute distress. HEAD: Normal with no signs of trauma. EYES: PERRL, extraocular movements intact, sclera anicteric, conjunctiva clear. ENT: Ears normal, nares patent, oropharynx clear without exudates, moist mucous membranes. NECK: Trachea midline, full range of motion, supple. LUNGS: Breath sounds equal, clear to auscultation bilaterally, no wheezes, no crackles, no accessory muscle use. HEART: Regular rate and rhythm, S1, S2 without murmur, rub or gallop. ABDOMEN: Soft, nontender, nondistended, normoactive bowel sounds, no guarding, no rebound, no hepatosplenomegaly, no masses. EXTREMITIES: 2+ pulses, warm, well-perfused, no edema. NEUROLOGICAL: Cranial nerves II through XII grossly intact. Normal speech, gait not observed. PSYCH: Normal mood, normal affect. SKIN: Warm, dry, normal turgor, no rashes or lesions noted. LABS HOSPITAL COURSE: Date of Admission:06/24/18 Date of Discharge: 06/26/18 Discharge Summary Reason For Visit: SHORTNESS OF BREATH Current Active Problems Acute asthma exacerbation (Acute) Asthma with COPD with exacerbation (Acute) SOB (shortness of breath) (Acute) Condition: Fair - Instructions - Home Medications Comprehensive Discharge Medication List: Ambulatory Orders Albuterol Sulfate Inhaler - [Ventolin HFA Inhaler -] 1 - 2 inh PO QID PRN #1 inhaler 05/23/18 Albuterol 2.5/Ipratropium 0.5 [Duoneb -] 1 neb NEB Q4H #2 vial 05/27/18 Albuterol Sulfate [Proair Hfa] 8.5 gm IH PRN PRN #1 hfa.aer.[email or web address] 06/02/18 Prednisone [Prednisone 50 MG TABLETS] 50 mg PO DAILY #5 tablet 06/02/18 - Discharge Referral Referred to [facility] Med P.C.: No
[2018-06-27] MEDS ORDERED: METHADONE HCL 5 MG TABLET PO ONE (06:00)
[2018-06-27] MEDS ORDERED: diazePAM 5 MG TABLET PO ONE (06:00)
== END 2018-06-26 17:28 | disposition left against medical advice (07) | DRG 140 ==
LOC: JER 01:58 → JERBED 05:10 → J5S 10:06
PROVIDERS: ADMIT Internal Medicine; ATTEND Internal Medicine
DX: J44.1 Chronic obstructive pulmonary disease with (acute) exacerbation (principal); F17.210 Nicotine dependence, cigarettes, uncomplicated; R91.1 Solitary pulmonary nodule; F10.20 Alcohol dependence, uncomplicated; F11.20 Opioid dependence, uncomplicated
CPT/HCPCS: 36415; 71046-TC-FY; 80053; 82550; 83605; 83880; 84484; 85025; 93005; 93010; 94640; 99282-25

== ENCOUNTER 2018-07-08 20:41 | Inpatient (IN) | payer OTHER ==
[2018-07-08 21:44] VITALS: BMI 25.5
--- NOTE | 2018-07-09 00:41 | HP ---
COWS - Scale Resting Pulse: 1= VA 81-100 Sweatin=Flushed/Facial Moisture Restless Observation: 3= Extraneous Movement Pupil Size: 0= Normal to Room Light Bone or Joint Aches: 0= None Runny Nose/ Eye Tearin= None GI Upset > 30mins: 0= None Tremor Observation: 4= Gross Tremor/Twitching Yawning Observation: 0= None Anxiety or Irritability: 1=Feels Anxious/Irritable Goose Flesh Skin: 0=Smooth Skin COWS Score: 11 CIWA Score Nausea/Vomitin-No Nausea/No Vomiting Muscle Tremors: 4-Moderate,w/Arms Extend Anxiety: 1-Mildly Anxious Agitation: 4-Moderately Restless Paroxysmal Sweats: 3 Orientation: 0-Oriented Tacttile Disturbances: 0-None Auditory Disturbances: 0-None Visual Disturbances: 0-None Headache: 0-None Present CIWA-Ar Total Score: 12 - Admission Criteria OASAS Guidelines: Admission for Medically Managed Detox: Requires at least one of the followin. CIWA greater than 12 2. Seizures within the past 24 hours 3. Delirium tremens within the past 24 hours 4. Hallucinations within the past 24 hours 5. Acute intervention needed for co occurring medical disorder 6. Acute intervention needed for co occurring psychiatric disorder 7. Severe withdrawal that cannot be handled at a lower level of care (continued vomiting, continued diarrhea, abnormal vital signs) requiring intravenous medication and/or fluids 8. Patient presents the following: CIWA greater than 12, Acute intervention needed for co-occurring med or psych disorder (Patient actively wheezing. Discharged from hospital this am for acute exacerbation.) Admission Criteria Met: Admission criteria met Admission ROS [facility] Chief Complaint: Here for heroin and alcohol withdrawal. Allergies/Adverse Reactions: Allergies Allergy/AdvReac Type Severity Reaction Status Date / Time No Known Allergies Allergy Verified 06/24/18 02:26 History of Present Illness: Here for detox. Hospitalized in [facility] ER from 12/06 to 11/28 for acute asthma exacerbation. Has frequent asthma exacerbations requiring ER visits. Alcohol use began at age 17. Drinks 6-12 oz beers daily. Cocaine use began at age 19. Heroin use began at age 31. Nasal. Xanax use began at age 37. Takes 1- 2 2 mg sticks 3-4x/wk. Denies methadone use (States received some methadone in ED). PMHx: Asthma, chronic back pain, MHHx: Denies depression. Denies thoughts of harming self or others. Patient Name: Sunil Nicolas Date: 1970 Address: [place] [address] Sex: Male Rx Written Rx Dispensed Drug Quantity Days Supply Prescriber Name 01/08/2018 01/08/2018 oxycodone-acetaminophen 10-325 mg tab 90 30 Barber Shelley,Krista 12/04/2017 12/04/2017 oxycodone-acetaminophen 10-325 mg tab 90 30 Barber Shelley,M 11/01/2017 11/01/2017 oxycodone-acetaminophen 10-325 mg tab 90 20 Barber Shelley,Krista 10/04/2017 10/04/2017 oxycodone-acetaminophen 10-325 mg tab 90 23 Barber Shelley 09/09/2017 09/09/2017 oxycodone-acetaminophen 5-325 mg tablet 90 23 Barber Shelley 08/23/2017 08/23/2017 oxycodone-acetaminophen 5-325 mg tablet 28 7 Barber Shelley 08/09/2017 08/10/2017 oxycodone-acetaminophen 5-325 mg tablet 28 7 Barber Shelley Exam Limitations: No Limitations - Ebola screening Have you traveled outside of the country in the last 21 days: No (N) Have you had contact with anyone from an Ebola affected area: No Have you been sick,other than usual withdrawal symptoms: No Do you have a fever: No - Review of Systems Constitutional: Chills, Diaphoresis, Changes in sleep (Difficulty staying asleep ) EENT: reports: Blurred Vision Respiratory: reports: Shortness of Breath, SOB with Exertion, Wheezing Cardiac: reports: No Symptoms Reported GI: reports: No Symptoms Reported : reports: No Symptoms Reported Musculoskeletal: reports: Back Pain (Hx sharp low back pain triggerd by bending. No pain at this time) Integumentary: reports: No Symptoms Reported Neuro: reports: Tremors Endocrine: reports: Increased Thirst Hematology: reports: No Symptoms Reported Psychiatric: reports: Judgement Intact, Orientated x3, Agitated, Anxious Patient History - Patient Medical History Hx Anemia: No Hx Asthma: Yes Hx Chronic Obstructive Pulmonary Disease (COPD): No Hx Cancer: No Hx Cardiac Disorders: No Hx Congestive Heart Failure: No Hx Hypertension: No Hx Hypercholesterolemia: No Hx Pacemaker: No HX Cerebrovascular Accident: No Hx Seizures: No Hx Dementia: No Hx Diabetes: No Hx Gastrointestinal Disorders: No Hx Liver Disease: No Hx Genitourinary Disorders: No Hx Sexually Transmitted Disorders: No Hx Renal Disease (ESRD): No Hx Thyroid Disease: No Hx Human Immunodeficiency Virus (HIV): No Hx Hepatitis C: No Hx Depression: No Hx Suicide Attempt: No Hx Bipolar Disorder: No Hx Schizophrenia: No - Patient Surgical History Past Surgical History: No Hx Neurologic Surgery: No Hx Cataract Extraction: No Hx Cardiac Surgery: No Hx Lung Surgery: No Hx Breast Surgery: No Hx Breast Biopsy: No Hx Abdominal Surgery: No Hx Appendectomy: No Hx Cholecystectomy: No Hx Genitourinary Surgery: No Hx Section: No Hx Orthopedic Surgery: No Hx Hysterectomy: No Anesthesia Reaction: No - PPD History Previous Implant?: Yes Documented Results: Negative w/proof Implanted On Prior [facility] Admission?: Yes Date: 07/25/16 Results: 0 mm PPD to be Administered?: Yes - Smoking Cessation Smoking history: Former smoker Have you smoked in the past 12 months: No If you are a former smoker, when did you quit?: 2017 Cigars Per Day: 0 Hx Chewing Tobacco Use: No Initiated information on smoking cessation: No - Substance & Tx. History Hx Alcohol Use: Yes Hx Substance Use: Yes Substance Use Type: Cocaine, Heroin, Opiates Hx Substance Use Treatment: Yes (detox, ) Family Disease History - Family Disease History Family Disease History: Diabetes: Mother, CA: Father (.) Admission Physical Exam S - Vital Signs Vital Signs: Vital Signs - 24 hr 07/08/18 21:42 Temperature 97.6 F Pulse Rate 93 H Respiratory 18 Rate Blood Pressure 129/77 - Physical General Appearance: Yes: Nourished, Appropriately Dressed, Mild Distress, Tremorous, Irritable, Sweating (Increased facial moisture), Anxious HEENTM: Yes: EOMI, Hearing grossly Normal, Normocephalic, Normal Voice, MAGDIEL ( Pupils = 4 mm), Pharynx Normal, Other (Perforated nasal septum) Respiratory: Yes: Chest Non-Tender, Decreased Breath Sounds, Wheezing ( Inspiratory and expiratoy wheeze. No rales/rhonchi.) Neck: Yes: No masses,lesions,Nodules, Supple Breast: Yes: Breast Exam Deferred Cardiology: Yes: Regular Rhythm, Regular Rate, S1, S2 Abdominal: Yes: Non Tender, Soft, Increased Bowel Sounds Genitourinary: Yes: Within Normal Limits Back: Yes: Normal Inspection Musculoskeletal: Yes: full range of Motion, Gait Steady Extremities: Yes: Normal Capillary Refill, Normal Range of Motion, Tremors Neurological: Yes: sample case porter II-XII NML intact, Fully Oriented, Alert, Motor Strength 5/5, Normal Response Integumentary: Yes: Normal Color, Warm Lymphatic: Yes: Within Normal Limits - Diagnostic (1) Acute asthma exacerbation Current Visit: Yes Status: Acute Qualifiers: Asthma severity: moderate Asthma persistence: unspecified Qualified Code( s): J45.901 - Unspecified asthma with (acute) exacerbation (2) Cocaine dependence, uncomplicated Current Visit: Yes Status: Chronic (3) Nicotine dependence Current Visit: Yes Status: Chronic Qualifiers: Nicotine product type: cigarettes Substance use status: uncomplicated Qualified Code(s): F17.210 - Nicotine dependence, cigarettes, uncomplicated (4) Opioid dependence with withdrawal Current Visit: Yes Status: Acute (5) Sedative, hypnotic or anxiolytic dependence, uncomplicated Current Visit: Yes Status: Acute (6) Alcohol use disorder, mild, abuse Current Visit: Yes Status: Acute (7) History of back pain Current Visit: Yes Status: Chronic (8) Nontraumatic perforated nasal septum Current Visit: Yes Status: Chronic Cleared for Admission S - Detox or Rehab [facility] Level of Care: Medically Managed Detox Regimen/Protocol: Methadone/Valium S Breath Alcohol Content Breath Alcohol Content: 0 Urine Drug Screen - Results Drug Screen Negative: No Urine Drug Screen Results: LIZBET-Cocaine, OPI-Opiates, BZO-Benzodiazepines, MTD- Methadone, FEN-Fentanyl Inpatient Rehab Admission - Rehab Decision to Admit Inpatient rehab admission?: No
[2018-07-09] MEDS ORDERED: ALBUTEROL SO4 2.5/IPRATROPIUM 0.5 INH SOL 3 ML VIAL.NEB. NEB PRN (00:49)
[2018-07-09] MEDS ORDERED: ALBUTEROL SO4 8 GM HFA INHALER IH PRN (00:49)
[2018-07-09] MEDS ORDERED: NALOXONE HCL 0.4 MG/ML VIAL IVPUSH PRN (00:57)
[2018-07-09] MEDS ORDERED: cloNIDine HCL 0.1 MG TABLET PO PRN (00:57)
[2018-07-09] MEDS ORDERED: METHADONE HCL 10 MG TABLET (FOR DETOX USE ONLY) PO ONE ×3 (01:15→18:00)
[2018-07-09] MEDS ORDERED: ALBUTEROL SO4 2.5/IPRATROPIUM 0.5 INH SOL 3 ML VIAL.NEB. NEB ONE (01:36)
[2018-07-09] MEDS ORDERED: diazePAM 5 MG TABLET PO ONE (01:37)
[2018-07-09] MEDS ORDERED: diazePAM 5 MG TABLET PO PRN (01:37)
[2018-07-09] MEDS ORDERED: ACETAMINOPHEN 325 MG TABLET (FP) PO PRN ×2 (01:41)
[2018-07-09] MEDS ORDERED: MAGNESIUM HYDROX 2400MG/30ML ORAL SUSPENSION 30 ML CUP PO PRN (01:41)
[2018-07-09] MEDS ORDERED: MAGNESIUM CITRATE 300 ML BOTTLE PO PRN (01:41)
[2018-07-09] MEDS ORDERED: PROCHLORPERAZINE MALEATE 5 MG TABLET PO PRN (01:41)
[2018-07-09] MEDS ORDERED: METHOCARBAMOL 500 MG TABLET PO PRN (01:41)
[2018-07-09] MEDS ORDERED: guaiFENesin 200 MG/10 ML 10 ML UNIT-DOSE CUPS PO PRN (01:41)
[2018-07-09] MEDS ORDERED: IBUPROFEN 600 MG TABLET (FP) PO PRN (01:41)
[2018-07-09] MEDS ORDERED: MENTHOL/PHENOL 1 EACH UD MM PRN (01:41)
[2018-07-09] MEDS ORDERED: BISMUTH SUBSALICYLATE 524 MG/30 ML UD PO PRN (01:41)
[2018-07-09] MEDS ORDERED: MAG HYDROX/AL HYDROX/SIMETH 30 ML UNIT-DOSE CUP PO PRN (01:41)
[2018-07-09] MEDS ORDERED: MELATONIN 5 MG TABLETS PO PRN (01:41)
[2018-07-09] MEDS: diazePAM 5 MG TABLET PO SCH ×3 (05:45→23:27)
[2018-07-09] MEDS ORDERED: METHADONE HCL 10 MG TABLET PO ONE (06:00)
[2018-07-09] MEDS: PANTOPRAZOLE 20 MG TABLET (FP) PO SCH (10:45)
[2018-07-09] MEDS: PRENATAL VITAMINS W/ FOLIC ACID TABLET (FP) PO SCH (10:45)
[2018-07-09] MEDS: predniSONE 20 MG TABLET (UD) PO SCH ×2 (10:45→10:59)
--- NOTE | 2018-07-09 11:18 | PN ---
S CIWA - CIWA Score Nausea/Vomitin Muscle Tremors: 2 Anxiety: 2 Agitation: 2 Paroxysmal Sweats: 1-Minimal Palms Moist Orientation: 0-Oriented Tacttile Disturbances: 1-Very Mild Itch/Numbness Auditory Disturbances: 1-Very Mild Visual Disturbances: 0-None Headache: 2-Mild ( [id number]) CIWA-Ar Total Score: 13 [facility] COWS - Scale Resting Pulse: 0= [place] 80 or Below Sweatin= Chills/Flushing Restless Observation: 1= Difficult to Sit Still Pupil Size: 1= Pupils >than Normal Bone or Joint Aches: 2= Severe Diffuse Aches Runny Nose/ Eye Tearin= Runny Nose/Eyes GI Upset > 30mins: 2= Nausea/Diarrhea Tremor Observation of Outstretched Hands: 2= Slight Tremor Visible Yawning Observation: 1= 1-2x During Session Anxiety or Irritability: 2=Irritable/Anxious Goose Flesh Skin: 0=Smooth Skin COWS Score: 14 S Progress Note (SOAP) Subjective: alert,irritable,anxious,interrupted sleep,tremor,pain in the body and back Objective: 07/09/18 11:15 Vital Signs Temperature 98.1 F 07/09/18 09:19 Pulse Rate 71 07/09/18 09:19 Respiratory Rate 18 07/09/18 09:19 Blood Pressure 103/65 07/09/18 09:19 O2 Sat by Pulse Oximetry (%) ekg normal sinus rhythm ,normal ecg qt/qtc 396/430 labs pending Assessment: 07/09/18 11:17 withdrawal symptom Plan: continue detox
--- NOTE | 2018-07-09 21:45 | EKG ---
Test Reason : Blood Pressure : / mmHG Vent. Rate : 071 BPM Atrial Rate : 071 BPM P-R Int : 164 ms QRS Dur : 086 ms QT Int : 396 ms P-R-T Axes : 056 058 057 degrees QTc Int : 430 ms NORMAL SINUS RHYTHM NORMAL ECG WHEN COMPARED WITH ECG OF 24-JUN-2018 02:52, NO SIGNIFICANT CHANGE WAS FOUND Confirmed by MD VIRGILIO, VICTOR HUGO ([id number]) on 07/09/2018 9:45:17 PM Referred By: Confirmed By:VICTOR HUGO POOLE MD
[2018-07-09] MEDS ORDERED: THIAMINE HCL 100 MG TABLET (FP) PO SCH (22:00)
[2018-07-10] MEDS: diazePAM 5 MG TABLET PO SCH ×2 (06:57→17:14)
[2018-07-10] MEDS ORDERED: METHADONE HCL 10 MG TABLET (FOR DETOX USE ONLY) PO ONE (10:00)
[2018-07-10] MEDS: PRENATAL VITAMINS W/ FOLIC ACID TABLET (FP) PO SCH (10:37)
[2018-07-10] MEDS: PANTOPRAZOLE 20 MG TABLET (FP) PO SCH (10:37)
[2018-07-10] MEDS: predniSONE 20 MG TABLET (UD) PO SCH (10:37)
[2018-07-10 12:33] LABS: HEMATOCRIT 33.9 % (35.4-49); HEMOGLOBIN 10.9 GM/dL (11.7-16.9); MCH 26.1 pg (25.7-33.7); MCHC 32.1 g/dl (32.0-35.9); MEAN CELL VOLUME 81.2 fl (80-96); MEAN PLT VOLUME 7.9 fl (7.5-11.1); PLATELET COUNT 300 K/MM3 (134-434); RBC 4.18 M/mm3 (4.00-5.60); RDW 15.4 % (11.9-15.9); WHITE BLOOD COUNT 7.7 K/mm3 (4.0-10.0)
[2018-07-10 13:18] LABS: ALBUMIN 2.9 g/dl (3.4-5.0); ALK PHOS 67 U/L (45-117); ANION GAP 8 MMOL/L (8-16); BILIRUBIN,TOTAL 0.2 mg/dL (0.2-1); BLOOD UREA NITROGEN 19 mg/dL (7-18); CALCIUM 8.1 mg/dL (8.5-10.1); CHLORIDE 105 mmol/L (98-107); CO2 29 mmol/L (21-32); CREATININE 0.8 mg/dL (0.55-1.3); GLUCOSE,RANDOM 78 mg/dL (74-106); POTASSIUM 4.2 mmol/L (3.5-5.1); SGOT/AST 10 U/L (15-37); SGPT/ALT 13 U/L (13-61); SODIUM 142 mmol/L (136-145); TOT PROT 5.7 g/dl (6.4-8.2)
--- NOTE | 2018-07-10 14:34 | PN ---
[facility] CIWA - CIWA Score Nausea/Vomitin-Mild Nausea/No Vomiting Muscle Tremors: 1-None Visible, but [place] Anxiety: 1-Mildly Anxious Agitation: 1-Slight > Activity Paroxysmal Sweats: 1-Minimal Palms Moist Orientation: 0-Oriented Tacttile Disturbances: 0-None Auditory Disturbances: 0-None Visual Disturbances: 0-None Headache: 0-None Present CIWA-Ar Total Score: 5 S COWS - Scale Resting Pulse: 0= [place] 80 or Below Sweatin= No chills or Flushing Restless Observation: 0= Sits Still Pupil Size: 0= Normal to Room Light Bone or Joint Aches: 1= Mild Discomfort Runny Nose/ Eye Tearin= Nasal Congestion GI Upset > 30mins: 0= None Tremor Observation of Outstretched Hands: 0= None Yawning Observation: 0= None Anxiety or Irritability: 1=Feels Anxious/Irritable Goose Flesh Skin: 0=Smooth Skin COWS Score: 3 [facility] Progress Note (SOAP) Subjective: day #3 of detox Pt states feeling fine today O: Vital Signs - 24 hr 07/09/18 07/09/18 07/10/18 17:19 21:26 00:30 Temperature 96.8 F L 95.3 F L Pulse Rate 78 63 Respiratory 18 16 18 Rate Blood Pressure 109/60 101/48 L 07/10/18 07/10/18 07/10/18 03:30 07:12 09:45 Temperature 97.7 F 96.8 F L Pulse Rate 63 68 Respiratory 18 18 18 Rate Blood Pressure 135/77 118/84 07/10/18 13:03 Temperature 98.1 F Pulse Rate 62 Respiratory 20 Rate Blood Pressure 138/80 Laboratory Tests 07/10/18 07/10/18 08:00 08:00 WBC 7.7 RBC 4.18 Hgb 10.9 L Hct 33.9 L MCV 81.2 MCH 26.1 MCHC 32.1 RDW 15.4 Plt Count 300 D MPV 7.9 Sodium 142 Potassium 4.2 Chloride 105 Carbon Dioxide 29 Anion Gap 8 BUN 19 H Creatinine 0.8 Creat Clearance w eGFR 104.07 Random Glucose 78 Calcium 8.1 L Total Bilirubin 0.2 AST 10 L ALT 13 Alkaline Phosphatase 67 Total Protein 5.7 L Albumin 2.9 L mild anemia low albumin a/p: continue alcohol and heroin detox protocols- pt doing well
[2018-07-10 16:35] VITALS: BP 115/61; PULSE 69; TEMP 97.9
--- NOTE | 2018-07-10 19:31 | DS ---
[facility] Detox Discharge Summary Admission Date: 07/09/18 Discharge Date: 07/10/18 - History Additional Comments: Pt states he wants to go- pt states he is in withdrawal and the prn meds are not helping his Sx. Offered additional dose of methadone- pt refused. d/w pt the risk of relapse d/w pt to go to MAT methadone tomorrow morning for admission- pt agreed to f/u. Pt does not need any meds Pt has PCP - Physical Exam Results Vital Signs: Vital Signs Temperature 97.9 F 07/10/18 16:34 Pulse Rate 69 07/10/18 16:34 Respiratory Rate 18 07/10/18 16:34 Blood Pressure 115/61 07/10/18 16:34 O2 Sat by Pulse Oximetry (%) - Medication Discharge Medications: Ambulatory Orders Albuterol Sulfate Inhaler - [Ventolin HFA Inhaler -] 1 - 2 inh PO QID PRN #1 inhaler 05/23/18 Albuterol 2.5/Ipratropium 0.5 [Duoneb -] 1 neb NEB Q4H #2 vial 05/27/18 Albuterol Sulfate [Proair Hfa] 8.5 gm IH PRN PRN #1 hfa.aer.ad 06/02/18 Prednisone [Prednisone 50 MG TABLETS] 50 mg PO DAILY #5 tablet 06/02/18 Budesonide/Formeterol Fumarate [SYMBICORT 80/4.5mcg -] 1 inh BID 07/09/18 - AMA Did Patient Leave Against Medical Advice: Yes
[2018-07-11] MEDS ORDERED: diazePAM 5 MG TABLET PO ONE (06:00)
[2018-07-11] MEDS ORDERED: METHADONE HCL 10 MG TABLET (FOR DETOX USE ONLY) PO ONE (10:00)
[2018-07-12] MEDS ORDERED: METHADONE HCL 10 MG TABLET (FOR DETOX USE ONLY) PO ONE (10:00)
[2018-07-13] MEDS ORDERED: METHADONE HCL 5 MG TABLET (FOR DETOX USE ONLY) PO ONE (06:00)
== END 2018-07-10 19:32 | disposition left against medical advice (07) | DRG 770 ==
LOC: YASAS 20:41 → Y6N 07-09 01:29
PROVIDERS: ADMIT Surgery; ATTEND Surgery
PROC: HZ2ZZZZ Detoxification Services for Substance Abuse Treatment (ICD-10-PCS; principal; 2018-07-09)
DX: F11.23 Opioid dependence with withdrawal (principal); F13.20 Sedative, hypnotic or anxiolytic dependence, uncomplicated; F14.20 Cocaine dependence, uncomplicated; F10.99 Alcohol use, unspecified with unspecified alcohol-induced disorder; D64.9 Anemia, unspecified; R77.0 Abnormality of albumin; J45.901 Unspecified asthma with (acute) exacerbation; Z87.891 Personal history of nicotine dependence
CPT/HCPCS: 36415; 80053; 85027; 86593; 93005; 93010; 94640

== ENCOUNTER 2018-09-04 16:29 | Inpatient (IN) | payer OTHER | END 2018-09-05 14:52 | disposition home or self-care (01) | LOC: JERBED 09-05 00:10 → J5S 09-05 03:27 → JER 16:29 ==

== ENCOUNTER 2018-09-15 03:10 | Emergency (ER) | payer OTHER ==
--- NOTE | 2018-09-15 03:18 | PDOC ---
History of Present Illness - General Stated Complaint: DIFFICULTY BREATHING - History of Present Illness Initial Comments: 09/15/18 03:18 47 year old male with a significant past medical history of cocaine and heroin abuse and asthma who presents with shortness of breath and bright blood in the urine that occurred when he woke up to urinate. The patient denies chest pain, nausea, sweating. Reports he last used cocaine and heroin last night approx 24 hours ago Last smoked a cigarette 1 day ago. The patient denies any fevers, cough productive of phlegm, recent travel. He used his rescue inhaler 3 times before he came to the ED. He has no other complaints at bedside. Past History - Past Medical History Allergies/Adverse Reactions: Allergies Allergy/AdvReac Type Severity Reaction Status Date / Time No Known Allergies Allergy Verified 09/15/18 04:06 Home Medications: Ambulatory Orders Albuterol Sulfate Inhaler - [Ventolin HFA Inhaler -] 1 - 2 inh PO QID PRN #1 inhaler 05/23/18 Albuterol Sulfate [Proair Hfa] 8.5 gm IH PRN PRN #1 hfa.aer.ad 06/02/18 Budesonide/Formeterol Fumarate [SYMBICORT 80/4.5mcg -] 1 inh BID 07/09/18 Azithromycin [Zithromax 250mg Tablets -] 250 mg PO DAILY #3 tablet 09/05/18 Prednisone See Taper PO DAILY #13 tab.ds.pk 09/05/18 Tiotropium [place] [Spiriva] 18 mcg IH DAILY #1 cap.w.dev 09/05/18 levoFLOXacin [Levaquin] 750 mg PO DAILY #5 tab 09/05/18 Azithromycin [Zithromax Tri-Sunny (3 DAYS) -] 500 mg PO DAILY #3 tablet 09/15/18 Anemia: No Asthma: Yes Cancer: No Cardiac Disorders: No CVA: No COPD: No CHF: No DVT: No Dementia: No Diabetes: No GI Disorders: No Disorders: No HTN: No Hypercholesterolemia: No Kidney Stones: No Liver Disease: No Seizures: No Thyroid Disease: No - Surgical History Abdominal Surgery: No Appendectomy: No Cardiac Surgery: No Cholecystectomy: No Lung Surgery: No Neurologic Surgery: No Orthopedic Surgery: No - Reproductive History Testicular Surgery: No - Immunization History Td Vaccination: Yes Immunization Up to Date: Yes - Suicide/Smoking/Psychosocial Hx Smoking Status: Yes Smoking History: Current some day smoker Years of Tobacco Use: 40 Have you smoked in the past 12 months: Yes Number of Cigarettes Smoked Daily: 20 If you are a former smoker, when did you quit?: 2017 Cigars Per Day: 0 'Breaking Loose' booklet given: 11/08/17 Hx Alcohol Use: No Drug/Substance Use Hx: Yes (heroin) Substance Use Type: Cocaine, Heroin, Opiates Hx Substance Use Treatment: Yes Review of Systems - Review of Systems Able to Perform ROS?: Yes Comments:: 09/15/18 03:38 GENERAL/CONSTITUTIONAL: No fever or chills. No weakness. HEAD, EYES, EARS, NOSE AND THROAT: No change in vision. No ear pain or discharge. No sore throat. CARDIOVASCULAR: No chest pain, + shortness of breath RESPIRATORY: No cough, wheezing, or hemoptysis. GASTROINTESTINAL: No nausea, vomiting, diarrhea or constipation. GENITOURINARY: No dysuria, frequency, or change in urination. MUSCULOSKELETAL: No joint or muscle swelling or pain. No neck or back pain. SKIN: No rash NEUROLOGIC: No headache, vertigo, loss of consciousness, or change in strength/ sensation. ENDOCRINE: No increased thirst. No abnormal weight change HEMATOLOGIC/LYMPHATIC: No anemia, easy bleeding, or history of blood clots. ALLERGIC/IMMUNOLOGIC: No hives or skin allergy. Is the patient limited Georgian proficient: No *Physical Exam - Physical Exam Comments: 09/15/18 03:38 GENERAL: Awake, alert, and fully oriented, in no acute distress HEAD: No signs of trauma, normocephalic, atraumatic EYES: EOMI, sclera anicteric, conjunctiva clear ENT: oropharynx clear without exudates. Moist mucosa NECK: Normal ROM, supple LUNGS: No distress, speaks full sentences, inspiratory and expiratory wheezes throughout HEART: tachycardic rate and regular rhythm, normal S1 and S2, no murmurs, rubs or gallops, peripheral pulses normal and equal bilaterally. ABDOMEN: Soft, nontender, normoactive bowel sounds. No guarding, no rebound. No masses EXTREMITIES : Normal inspection, Normal range of motion, no edema. No clubbing or cyanosis. NEUROLOGICAL: Cranial nerves II through XII grossly intact. Normal speech, normal gait, no focal sensorimotor deficits SKIN: Warm, Dry, normal turgor, no rashes or lesions noted ED Treatment Course - LABORATORY CBC & Chemistry Diagram: 09/15/18 03:50 09/15/18 03:50 Medical Decision Making - Medical Decision Making 09/15/18 03:35 47 year old male with a significant past medical history of cocaine and heroin abuse and asthma who presents with shortness of breath and bright blood in the urine that occurred when he woke up to urinate. The patient denies chest pain, nausea, sweating. Reports he last used cocaine and heroin last night approx 24 hours ago ED Course: consider pna vs asthma exacerb uti less likely nephrolithiasis or pyleo as patient without abdominal or cva tenderness 09/15/18 04:11 EKG: normal sinus rhythm HR 94, no interval abnormalities, narrow QRS, ST and T wave segments and morphology normal. 09/15/18 04:30 leukocytosis consider infectious causes, however patient on recent prednisone taper marked improvement in wheezing afterduoneb slight expiratory wheeze at bases persistent and trace crackles pendign ua and cxr 09/15/18 05:11 ua: wnl 09/15/18 05:41 CXR: d/c with [place] and f.u with Dr. Rdz and Dr. Yanez on Sunday *DC/Admit/Observation/Transfer Diagnosis at time of Disposition: Shortness of breath - Discharge Dispostion Disposition: HOME Condition at time of disposition: Fair Decision to Admit order: No - Prescriptions Prescriptions: Azithromycin [Zithromax Tri-Sunny (3 DAYS) -] 500 mg PO DAILY #3 tablet - Referrals Referrals: Eric Yanez MD [Primary Care Provider] - - Patient Instructions Printed Discharge Instructions: DI for Asthma -- Adult Additional Instructions: You were seen in the ED for complaints of shortness of breath and blood in the urine. In the ED you were evaluated with labwork and imaging. Your results did not show blood in the urine and your labwork showed a slight elevated white blood cells There does not appear to be an acute need for immediate hospitalization. You are advised to follow up with your Primary Care Physician, Dr. Yanez and your Bee Producer, Dr. Rdz on Sunday. You were given a prescription for Z-sunny antibiotic and should take the medication as advised. Return to the ED immediately if you experience worsening shortness of breath, chest pain, nausea, sweating or fevers. - Post Discharge Activity
[2018-09-15] MEDS ORDERED: methylPREDNISolone NA SUCC 125 MG/2 ML VIAL IVPUSH ONE (03:28)
[2018-09-15] MEDS ORDERED: ALBUTEROL SO4 2.5/IPRATROPIUM 0.5 INH SOL 3 ML VIAL.NEB. NEB ONE ×2 (03:28→03:45)
[2018-09-15] MEDS ORDERED: MAGNESIUM SULF 50% (8.12 MEQ/2 ML-1 GM VIAL) IVPB ONE (03:29)
[2018-09-15 03:43] VITALS: TEMP 98.1; BMI 27.3
[2018-09-15] MEDS ORDERED: methylPREDNISolone NA SUCC 125 MG/2 ML VIAL ONE (03:45)
[2018-09-15] MEDS ORDERED: MAGNESIUM 1GM/D5W - 1 GM/100 ML IVPB IVPB ONE (03:46)
[2018-09-15 04:09] LABS: EOS % 0.6 % (0-4.5); HEMATOCRIT 35.7 % (35.4-49); HEMOGLOBIN 11.4 GM/dL (11.7-16.9); LYMPH % 7.6 % (8-40); MCH 26.6 pg (25.7-33.7); MEAN PLT VOLUME 7.5 fl (7.5-11.1); NEUT % 84.8 % (42.8-82.8); PLATELET COUNT 328 K/MM3 (134-434); RDW 15.6 % (11.9-15.9); WHITE BLOOD COUNT 19.1 K/mm3 (4.0-10.0)
[2018-09-15 04:35] VITALS: BP 129/90; PULSE 97
[2018-09-15 04:39] LABS: ALBUMIN 3.9 g/dl (3.4-5.0); ALK PHOS 87 U/L (45-117); ANION GAP 8 MMOL/L (8-16); BILIRUBIN,TOTAL 0.5 mg/dL (0.2-1); BLOOD UREA NITROGEN 26 mg/dL (7-18); CALCIUM 8.9 mg/dL (8.5-10.1); CHLORIDE 100 mmol/L (98-107); CO2 30 mmol/L (21-32); CREATININE 1.4 mg/dL (0.55-1.3); GLUCOSE,RANDOM 126 mg/dL (74-106); POTASSIUM 4.7 mmol/L (3.5-5.1); SGOT/AST 33 U/L (15-37); SGPT/ALT 34 U/L (13-61); SODIUM 137 mmol/L (136-145); TOT PROT 7.4 g/dl (6.4-8.2)
[2018-09-15 04:48] LABS: EPI CELLS 0.7 /HPF (0-5/HPF); HYALINE CASTS 20 /lpf (0-8); URINE APPEARANCE CLOUDY; URINE BACTERIA 40.5 /hpf (NEGATIVE); URINE BILIRUBIN NEGATIVE (NEGATIVE); URINE COLOR YELLOW; URINE GLUCOSE (UA) NEGATIVE (NEGATIVE); URINE KETONE NEGATIVE (NEGATIVE); URINE LEUK ESTERASE TRACE (NEGATIVE); URINE NITRITE NEGATIVE (NEGATIVE); URINE PROTEIN 1+ (NEGATIVE); URINE RBC 6 /hpf (0-4); URINE UROBILINOGEN 0.2 mg/dL (0.2-1.0); URINE WBC 66 /hpf (0-5)
--- NOTE | 2018-09-15 04:52 | PDOC ---
Attending Attestation - Resident Resident Name: Brooklyn Corbin - ED Attending Attestation I have performed the following: I have examined & evaluated the patient, The case was reviewed & discussed with the resident, I agree w/resident's findings & plan, Exceptions are as noted - HPI HPI: 09/15/18 04:58 47 yo M presents to the ER with a complaint of shortness of breath H/o heroine use (last used 24 hours ago), asthma, and COPD who presents for shortness of breath. He used his inhaler but this did not help. No fevers or chills No productive cough Was recently admitted for similar presentation D/c on Symbicort, Albuterol, Azithromycin No recent travel - Physicial Exam PE: 09/15/18 05:00 GENERAL: The patient is in no acute distress, pt is actually comfortable ENT: Ears normal, nares patent, oropharynx clear without exudates. Moist mucous membranes. NECK: Normal range of motion LUNGS: Breath sounds equal, clear to auscultation bilaterally. Inspiratory and expiratory wheezing through out all lung hart HEART:Regular rate and rhythm, normal S1 and S2 without murmur, rub or gallop. ABDOMEN: Soft, nontender, normoactive bowel sounds. EXTREMITIES: Normal range of motion, no edema. NEUROLOGICAL: Cranial nerves II through XII grossly intact. Normal speech. No focal neurological deficits. SKIN: Warm, Dry, normal turgor, no rashes or lesions noted. - Medical Decision Making 09/15/18 04:51 47 yo M presenting with complaint of shortness of breath DD: COPD/Asthma, Pneumonia, ACS/CHF, PE (less likely) Will do: Labs, EKG, CXR Nebs Solumedrol Consider abx ekg- Twelve-lead EKG was performed and reviewed by me. There is normal sinus rhythm with a normal rate. The axis is normal. The intervals are normal. There are no ST or T wave abnormalities. Impression: Normal twelve-lead EKG Laboratory Tests 09/05/18 09/05/18 09/15/18 07:00 07:00 03:50 WBC 8.4 19.1 H Hgb 11.8 11.4 L Hct 36.1 35.7 Plt Count 328 328 Sodium Potassium Chloride Carbon Dioxide Anion Gap BUN 16 Creatinine 0.8 Random Glucose Alkaline Phosphatase Troponin I 09/15/18 03:50 WBC Hgb Hct Plt Count Sodium 137 Potassium 4.7 Chloride 100 Carbon Dioxide 30 Anion Gap 8 BUN 26 H Creatinine 1.4 H Random Glucose 126 H Alkaline Phosphatase 87 Troponin I < 0.02 09/15/18 05:03 CXR still pending 09/15/18 05:41 CXR no consolidation or infiltrate Will give Azithromycin, Nebs, Steroids Pt has improved relative to his presentation Pt to follow up with Dr Rdz/Beau in 2 days Please note: pt stood at the the help desk coordinator screaming at the paralegal legal secretary because there was a delay with calling his medicaid cab Pt ambulatory with a steady gait Pt speaking in clear and complete sentences, not laboured
[2018-09-15] MEDS ORDERED: SODIUM CHLORIDE 1,000 ML IV SCH (05:15)
[2018-09-15] MEDS ORDERED: BACITRACIN 15 GM TUBE TOPICAL OINTMENT TP ONE (05:38)
[2018-09-15] MEDS ORDERED: BACITRACIN 15 GM TUBE TOPICAL OINTMENT ONE (05:44)
[2018-09-15] MEDS ORDERED: AZITHROMYCIN 500 MG TABLET ONE (05:55)
[2018-09-15] MEDS ORDERED: AZITHROMYCIN 250 MG TABLET PO ONE (05:56)
--- NOTE | 2018-09-15 12:44 | EKG ---
Test Reason : Blood Pressure : / mmHG Vent. Rate : 094 BPM Atrial Rate : 094 BPM P-R Int : 162 ms QRS Dur : 086 ms QT Int : 342 ms P-R-T Axes : 038 028 043 degrees QTc Int : 427 ms NORMAL SINUS RHYTHM NORMAL ECG WHEN COMPARED WITH ECG OF 05-SEP-2018 03:01, NO SIGNIFICANT CHANGE WAS FOUND Confirmed by ILYA COTTRELL MD ([id number]) on 09/15/2018 12:44:10 PM Referred By: Confirmed By:ILYA COTTRELL MD
== END 2018-09-15 07:20 | disposition home or self-care (01) ==
LOC: JER 03:10
PROC: 3E0F7GC Introduction of Other Therapeutic Substance into Respiratory Tract, Via Natural or Artificial Opening (ICD-10-PCS; principal; 2018-09-15)
PROC: 3E0333Z Introduction of Anti-inflammatory into Peripheral Vein, Percutaneous Approach (ICD-10-PCS; 2018-09-15)
PROC: 3E033GC Introduction of Other Therapeutic Substance into Peripheral Vein, Percutaneous Approach (ICD-10-PCS; 2018-09-15)
DX: J45.901 Unspecified asthma with (acute) exacerbation (principal); J44.9 Chronic obstructive pulmonary disease, unspecified
CPT/HCPCS: 36415; 71046-TC-FY; 80053; 81003; 84484; 85025; 93005; 93010; 94640; 96374; 96375; 99283-25; J7030

== ENCOUNTER 2018-09-16 09:05 | Inpatient (IN) | payer OTHER ==
[2018-09-16 10:05] VITALS: BMI 27.8
--- NOTE | 2018-09-16 11:47 | HP ---
COWS - Scale Resting Pulse: 1= [place] 81-100 Sweatin= Chills/Flushing Restless Observation: 1= Difficult to Sit Still Pupil Size: 1= Pupils >than Normal Bone or Joint Aches: 2= Severe Diffuse Aches Runny Nose/ Eye Tearin= Runny Nose/Eyes GI Upset > 30mins: 2= Nausea/Diarrhea Tremor Observation: 2= Slight Tremor Visible Yawning Observation: 1= 1-2x During Session Anxiety or Irritability: 2=Irritable/Anxious Goose Flesh Skin: 0=Smooth Skin COWS Score: 15 CIWA Score Nausea/Vomitin Muscle Tremors: 2 Anxiety: 2 Agitation: 2 Paroxysmal Sweats: 1-Minimal Palms Moist Orientation: 0-Oriented Tacttile Disturbances: 1-Very Mild Itch/Numbness Auditory Disturbances: 1-Very Mild Visual Disturbances: 0-None Headache: 2-Mild CIWA-Ar Total Score: 13 - Admission Criteria [facility] Guidelines: Admission for Medically Managed Detox: Requires at least one of the followin. CIWA greater than 12 2. Seizures within the past 24 hours 3. Delirium tremens within the past 24 hours 4. Hallucinations within the past 24 hours 5. Acute intervention needed for co occurring medical disorder 6. Acute intervention needed for co occurring psychiatric disorder 7. Severe withdrawal that cannot be handled at a lower level of care (continued vomiting, continued diarrhea, abnormal vital signs) requiring intravenous medication and/or fluids 8. Admission ROS S - [facility] Chief Complaint: i need help to stop using heroin and alcohol,marijuana Allergies/Adverse Reactions: Allergies Allergy/AdvReac Type Severity Reaction Status Date / Time No Known Allergies Allergy Verified 09/15/18 04:06 History of Present Illness: this 47 years old lae with heroin and alcohol and marijuana abused,seeking detox ,withdrawal symptom seen in [facility] for asthma asthma no smoking multiple admissions in detox,non compliance,keep relapsing last detox 07/09/18 to 07/10/18 not completed insomnia longest period of sobriety 8 months plan for rehab after detox fell 4 days ago abrasion of right frontal area supposed to take zithromax 500 mgs po daily for 3 days Exam Limitations: No Limitations - Ebola screening Have you traveled outside of the country in the last 21 days: No Have you had contact with anyone from an Ebola affected area: No - Review of Systems Constitutional: Chills, Loss of Appetite, Malaise, Night Sweats, Changes in sleep, Weakness EENT: reports: Tearing, Nose Congestion, Other (abrasion of right frontal) Respiratory: reports: No Symptoms reported, Other (asthma hitory) Cardiac: reports: No Symptoms Reported GI: reports: Diarrhea, Nausea, Vomiting, Abdominal cramping : reports: No Symptoms Reported Musculoskeletal: reports: Back Pain, Muscle Pain Integumentary: reports: Dryness Neuro: reports: Headache, Tremors Endocrine: reports: No Symptoms Reported Hematology: reports: No Symptoms Reported Psychiatric: reports: No Sypmtoms Reported, Judgement Intact, Mood/Affect Appropiate, Orientated x3, other (insomnia) Patient History - Patient Medical History Hx Anemia: No Hx Asthma: Yes (on alberol inhaler and symbicort) Hx Chronic Obstructive Pulmonary Disease (COPD): No Hx Cancer: No Hx Cardiac Disorders: No Hx Congestive Heart Failure: No Hx Hypertension: No Hx Hypercholesterolemia: No Hx Pacemaker: No HX Cerebrovascular Accident: No Hx Seizures: No Hx Dementia: No Hx Diabetes: No Hx Gastrointestinal Disorders: No Hx Liver Disease: No Hx Genitourinary Disorders: No Hx Sexually Transmitted Disorders: No Hx Renal Disease (ESRD): No Hx Thyroid Disease: No Hx Human Immunodeficiency Virus (HIV): No (last 06/04 negative) Hx Hepatitis C: No Hx Depression: No Hx Suicide Attempt: No Hx Bipolar Disorder: No Hx Schizophrenia: No Other Medical History: no suicidal,no homicidal,insomnia - Patient Surgical History Past Surgical History: No Hx Neurologic Surgery: No Hx Cataract Extraction: No Hx Cardiac Surgery: No Hx Lung Surgery: No Hx Breast Surgery: No Hx Breast Biopsy: No Hx Abdominal Surgery: No Hx Appendectomy: No Hx Cholecystectomy: No Hx Genitourinary Surgery: No Hx Section: No Hx Orthopedic Surgery: No Hx Hysterectomy: No Anesthesia Reaction: No - PPD History Previous Implant?: Yes Documented Results: Negative w/o proof Implanted On Prior R Admission?: Yes Date: 07/25/16 Results: 0 mm PPD to be Administered?: Yes - Smoking Cessation Smoking history: Current some day smoker Have you smoked in the past 12 months: Yes Aproximately how many cigarettes per day: 2 If you are a former smoker, when did you quit?: 2017 Cigars Per Day: 0 Hx Chewing Tobacco Use: No Initiated information on smoking cessation: Yes 'Breaking Loose' booklet given: 09/16/18 - Substance & Tx. History Hx Alcohol Use: Yes Hx Substance Use: Yes Substance Use Type: Alcohol, Heroin Hx Substance Use Treatment: Yes (07/09/18 to 07/10/18 not completed) - Substances abused Alcohol Substance route: Oral Frequency: Daily Amount used: 4 beers 12oz. Age of first use: 17 Date of last use: 09/15/18 Heroin Substance route: Inhalation Frequency: Daily Amount used: 10bags Age of first use: 44 Date of last use: 09/15/18 Marijuana/Hashish Substance route: Smoking Frequency: 1-3 times last 30 days Amount used: 1 joint Age of first use: 17 Date of last use: 09/11/18 Family Disease History - Family Disease History Family Disease History: Diabetes: Mother, [place]: Father (.) Admission Physical Exam [facility] - Vital Signs Vital Signs: Vital Signs - 24 hr 09/16/18 09:57 Temperature 97.6 F Pulse Rate 96 H Respiratory 20 Rate Blood Pressure 139/79 - Physical General Appearance: Yes: Moderate Distress, Sweating, Anxious HEENTM: Yes: Normal ENT Inspection, MAGDIEL, Pharynx Normal, Other (abrasion of right frontal area) Respiratory: Yes: Lungs Clear, Normal Breath Sounds, Wheezing, Other (connie) Neck: Yes: Within Normal Limits, Supple, Trachea in good position Breast: Yes: Within Normal Limits Cardiology: Yes: Within Normal Limits, Regular Rhythm, Regular Rate, S1, S2 Abdominal: Yes: Within Normal Limits, Normal Bowel Sounds, Non Tender, Flat, Soft Genitourinary: Yes: Within Normal Limits Back: Yes: Muscle Spasm Musculoskeletal: Yes: Back pain, Joint Stiffness, Muscle Pain Extremities: Yes: Within Normal Limits, Normal Range of Motion, Tremors Neurological: Yes: transmission design engineer II-XII NML intact, Fully Oriented, Alert, Motor Strength 5/5 Integumentary: Yes: Dry Lymphatic: Yes: Within Normal Limits - Diagnostic (1) Opioid dependence with withdrawal Current Visit: No Status: Acute (2) Asthma exacerbation Current Visit: No Status: Acute Qualifiers: Asthma severity: mild Asthma persistence: unspecified Qualified Code(s): J45.901 - Unspecified asthma with (acute) exacerbation (3) Nicotine dependence Current Visit: No Status: Chronic Qualifiers: Nicotine product type: cigarettes Substance use status: uncomplicated Qualified Code(s): F17.210 - Nicotine dependence, cigarettes, uncomplicated (4) Alcohol dependence with uncomplicated withdrawal Current Visit: Yes Status: Acute (5) Dehydration Current Visit: Yes Status: Acute (6) Acute bronchitis Current Visit: Yes Status: Acute (7) History of fall Current Visit: Yes Status: Acute Cleared for Admission S - Detox or Rehab [facility] Level of Care: Medically Managed Detox Regimen/Protocol: Methadone/Librium Breathalyzer - Breathalyzer Breathalyzer: 0 Urine Drug Screen - Test Device Lot number: [id number] Expiration date: 06/13/18 - Control Is test valid?: Yes - Results Drug screen NEGATIVE: No Urine drug screen results: THC-Marijuana, LIZBET-Cocaine, FEN-Fentanyl, MOP-Opiates Inpatient Rehab Admission - Rehab Decision to Admit Inpatient rehab admission?: No
[2018-09-16] MEDS ORDERED: cloNIDine HCL 0.1 MG TABLET PO PRN (12:07)
[2018-09-16] MEDS ORDERED: METHOCARBAMOL 500 MG TABLET PO PRN (12:14)
[2018-09-16] MEDS ORDERED: MAG HYDROX/AL HYDROX/SIMETH 30 ML UNIT-DOSE CUP PO PRN (12:14)
[2018-09-16] MEDS ORDERED: MENTHOL/PHENOL 1 EACH UD MM PRN (12:14)
[2018-09-16] MEDS ORDERED: ACETAMINOPHEN 325 MG TABLET (FP) PO PRN ×2 (12:14)
[2018-09-16] MEDS ORDERED: MAGNESIUM CITRATE 300 ML BOTTLE PO PRN (12:14)
[2018-09-16] MEDS ORDERED: MAGNESIUM HYDROX 2400MG/30ML ORAL SUSPENSION 30 ML CUP PO PRN (12:14)
[2018-09-16] MEDS ORDERED: hydrOXYzine PAMOATE 25 MG CAPSULE (FP) PO PRN (12:14)
[2018-09-16] MEDS ORDERED: BISMUTH SUBSALICYLATE 524 MG/30 ML UD PO PRN (12:14)
[2018-09-16] MEDS ORDERED: ALBUTEROL SO4 2.5/IPRATROPIUM 0.5 INH SOL 3 ML VIAL.NEB. NEB PRN (12:20)
[2018-09-16] MEDS ORDERED: METHADONE HCL 10 MG TABLET (FOR DETOX USE ONLY) PO ONE ×2 (13:00→23:00)
[2018-09-16] MEDS: chlordiazePOXIDE HCL 25 MG CAPSULE PO PRN (13:22)
[2018-09-16] MEDS: AZITHROMYCIN 250 MG TABLET PO SCH (13:22)
[2018-09-16] MEDS: IBUPROFEN 400 MG TABLET (FP) PO PRN (13:28)
[2018-09-16] MEDS: SILVER SULFADIAZINE 1% TOP CREAM 50 GM JAR TP SCH ×2 (14:42→22:40)
[2018-09-16 17:11] LABS: HEMATOCRIT 35.8 % (35.4-49); HEMOGLOBIN 11.4 GM/dL (11.7-16.9); MCH 26.6 pg (25.7-33.7); MCHC 31.9 g/dl (32.0-35.9); MEAN CELL VOLUME 83.3 fl (80-96); MEAN PLT VOLUME 7.9 fl (7.5-11.1); PLATELET COUNT 332 K/MM3 (134-434); RBC 4.29 M/mm3 (4.00-5.60); RDW 16.2 % (11.9-15.9); WHITE BLOOD COUNT 14.1 K/mm3 (4.0-10.0)
[2018-09-16] MEDS: chlordiazePOXIDE HCL 25 MG CAPSULE PO SCH ×2 (17:12→22:43)
[2018-09-16 17:19] LABS: ALBUMIN 3.8 g/dl (3.4-5.0); BILIRUBIN,TOTAL 0.3 mg/dL (0.2-1); CREATININE 0.9 mg/dL (0.55-1.3); POTASSIUM 3.8 mmol/L (3.5-5.1)
[2018-09-16] MEDS: THIAMINE HCL 100 MG TABLET (FP) PO SCH (22:40)
[2018-09-16] MEDS: BUDESONIDE/FORMETEROL FUMARATE 80/4.5 mcg INHALER IH SCH (22:40)
[2018-09-17] MEDS: IBUPROFEN 400 MG TABLET (FP) PO PRN (01:19)
[2018-09-17] MEDS: chlordiazePOXIDE HCL 25 MG CAPSULE PO PRN (01:19)
[2018-09-17] MEDS ORDERED: METHADONE HCL 10 MG TABLET (FOR DETOX USE ONLY) PO ONE ×2 (01:20→10:00)
[2018-09-17] MEDS: chlordiazePOXIDE HCL 25 MG CAPSULE PO SCH ×4 (06:56→22:27)
[2018-09-17] MEDS: BUDESONIDE/FORMETEROL FUMARATE 80/4.5 mcg INHALER IH SCH ×2 (10:15→22:26)
[2018-09-17] MEDS: PRENATAL VITAMINS W/ FOLIC ACID TABLET (FP) PO SCH (10:15)
[2018-09-17] MEDS: AZITHROMYCIN 250 MG TABLET PO SCH (10:16)
[2018-09-17] MEDS: SILVER SULFADIAZINE 1% TOP CREAM 50 GM JAR TP SCH ×2 (10:16→22:26)
[2018-09-17] MEDS: TIOTROPIUM BROMIDE 2.5 MCG (SPIRIVA) RESPIMAT INHALER IH SCH (10:44)
--- NOTE | 2018-09-17 10:53 | PN ---
S CIWA - CIWA Score Nausea/Vomitin Muscle Tremors: 2 Anxiety: 2 Agitation: 3 Paroxysmal Sweats: 1-Minimal Palms Moist Orientation: 0-Oriented Tacttile Disturbances: 1-Very Mild Itch/Numbness Auditory Disturbances: 1-Very Mild Visual Disturbances: 0-None Headache: 2-Mild CIWA-Ar Total Score: 14 BHS COWS - Scale Resting Pulse: 1= OK 81-100 Sweatin= Chills/Flushing Restless Observation: 1= Difficult to Sit Still Pupil Size: 1= Pupils >than Normal Bone or Joint Aches: 2= Severe Diffuse Aches Runny Nose/ Eye Tearin= Nasal Congestion GI Upset > 30mins: 2= Nausea/Diarrhea Tremor Observation of Outstretched Hands: 2= Slight Tremor Visible Yawning Observation: 1= 1-2x During Session Anxiety or Irritability: 2=Irritable/Anxious Goose Flesh Skin: 0=Smooth Skin COWS Score: 14 BHS Progress Note (SOAP) Subjective: alert,irritable,anxious,interrupted sleep,tremor,pain in the body and back Objective: 09/17/18 10:51 Vital Signs Temperature 97.8 F 09/17/18 09:25 Pulse Rate 88 09/17/18 09:25 Respiratory Rate 18 09/17/18 09:25 Blood Pressure 112/71 09/17/18 09:25 O2 Sat by Pulse Oximetry (%) Laboratory Last Values WBC 14.1 K/mm3 (4.0-10.0) H 09/16/18 12:30 RBC 4.29 M/mm3 (4.00-5.60) 09/16/18 12:30 Hgb 11.4 GM/dL (11.7-16.9) L 09/16/18 12:30 Hct 35.8 % (35.4-49) 09/16/18 12:30 MCV 83.3 fl (80-96) 09/16/18 12:30 MCH 26.6 pg (25.7-33.7) 09/16/18 12:30 MCHC 31.9 g/dl (32.0-35.9) L 09/16/18 12:30 RDW 16.2 % (11.9-15.9) H 09/16/18 12:30 Plt Count 332 K/MM3 (134-434) 09/16/18 12:30 MPV 7.9 fl (7.5-11.1) 09/16/18 12:30 Sodium 137 mmol/L (136-145) 09/16/18 12:30 Potassium 3.8 mmol/L (3.5-5.1) 09/16/18 12:30 Chloride 102 mmol/L (98-107) 09/16/18 12:30 Carbon Dioxide 31 mmol/L (21-32) 09/16/18 12:30 Anion Gap 5 MMOL/L (8-16) L 09/16/18 12:30 BUN 23 mg/dL (7-18) H 09/16/18 12:30 Creatinine 0.9 mg/dL (0.55-1.3) 09/16/18 12:30 Est GFR (CKD-EPI)AfAm 118.30 09/16/18 12:30 Est GFR (CKD-EPI)NonAf 102.07 09/16/18 12:30 Random Glucose 86 mg/dL (74-106) 09/16/18 12:30 Calcium 9.0 mg/dL (8.5-10.1) 09/16/18 12:30 Total Bilirubin 0.3 mg/dL (0.2-1) 09/16/18 12:30 AST 30 U/L (15-37) 09/16/18 12:30 ALT 30 U/L (13-61) 09/16/18 12:30 Alkaline Phosphatase 80 U/L (45-117) 09/16/18 12:30 Total Protein 7.0 g/dl (6.4-8.2) 09/16/18 12:30 Albumin 3.8 g/dl (3.4-5.0) 09/16/18 12:30 RPR Titer Nonreactive (NONREACTIVE) 09/16/18 12:30 Assessment: 09/17/18 10:52 withdrawal symptom Plan: continue detox,continue zithromax
[2018-09-17] MEDS: THIAMINE HCL 100 MG TABLET (FP) PO SCH (22:27)
[2018-09-17] MEDS: MELATONIN 5 MG TABLETS PO PRN (22:27)
[2018-09-18] MEDS: chlordiazePOXIDE HCL 25 MG CAPSULE PO SCH ×2 (04:57→10:12)
[2018-09-18] MEDS ORDERED: METHADONE HCL 10 MG TABLET (FOR DETOX USE ONLY) PO ONE (10:00)
[2018-09-18] MEDS: SILVER SULFADIAZINE 1% TOP CREAM 50 GM JAR TP SCH ×2 (10:12→22:02)
[2018-09-18] MEDS: PRENATAL VITAMINS W/ FOLIC ACID TABLET (FP) PO SCH (10:12)
[2018-09-18] MEDS: TIOTROPIUM BROMIDE 2.5 MCG (SPIRIVA) RESPIMAT INHALER IH SCH (10:14)
[2018-09-18] MEDS: BUDESONIDE/FORMETEROL FUMARATE 80/4.5 mcg INHALER IH SCH ×2 (10:16→22:01)
[2018-09-18] MEDS: AZITHROMYCIN 250 MG TABLET PO SCH (11:17)
[2018-09-18 12:47] LABS: BASO % 0.8 % (0-2.0); EOS % 1.8 % (0-4.5); HEMATOCRIT 36.8 % (35.4-49); HEMOGLOBIN 11.9 GM/dL (11.7-16.9); LYMPH % 31.4 % (8-40); MCH 26.9 pg (25.7-33.7); MCHC 32.3 g/dl (32.0-35.9); MEAN CELL VOLUME 83.2 fl (80-96); MONO % 7.1 % (3.8-10.2); NEUT % 58.9 % (42.8-82.8); PLATELET COUNT 370 K/MM3 (134-434); RBC 4.42 M/mm3 (4.00-5.60); RDW 15.8 % (11.9-15.9); WHITE BLOOD COUNT 9.8 K/mm3 (4.0-10.0)
[2018-09-18 12:49] LABS: EPI CELLS 0.3 /HPF (0-5/HPF); HYALINE CASTS 9 /lpf (0-8); PH,URINE 6.5 (5.0-8.0); URINE APPEARANCE CLEAR; URINE BACTERIA 89.2 /hpf (NEGATIVE); URINE BILIRUBIN NEGATIVE (NEGATIVE); URINE COLOR YELLOW; URINE GLUCOSE (UA) NEGATIVE (NEGATIVE); URINE KETONE NEGATIVE (NEGATIVE); URINE LEUK ESTERASE NEGATIVE (NEGATIVE); URINE NITRITE NEGATIVE (NEGATIVE); URINE PROTEIN NEGATIVE (NEGATIVE); URINE RBC 18 /hpf (0-4); URINE UROBILINOGEN 0.2 mg/dL (0.2-1.0)
[2018-09-18 13:28] LABS: URINE WBC 28.2 /hpf (0-5)
--- NOTE | 2018-09-18 15:22 | PN ---
[facility] CIWA - CIWA Score Nausea/Vomitin-No Nausea/No Vomiting Muscle Tremors: 3 Anxiety: 2 Agitation: 1-Slight > Activity Paroxysmal Sweats: No Perspiration Orientation: 0-Oriented Tacttile Disturbances: 2-Mild Itch/Numbness/Burn Auditory Disturbances: 0-None Visual Disturbances: 2-Mild Sensitivity Headache: 0-None Present CIWA-Ar Total Score: 10 BHS COWS - Scale Resting Pulse: 0= CA 80 or Below Sweatin= No chills or Flushing Restless Observation: 1= Difficult to Sit Still Pupil Size: 0= Normal to Room Light Bone or Joint Aches: 2= Severe Diffuse Aches Runny Nose/ Eye Tearin= None GI Upset > 30mins: 0= None Tremor Observation of Outstretched Hands: 2= Slight Tremor Visible Yawning Observation: 1= 1-2x During Session Anxiety or Irritability: 2=Irritable/Anxious Goose Flesh Skin: 3=Piloerection COWS Score: 11 S Progress Note (SOAP) Subjective: Anxious, Itching, Tremors, Body Aches. Objective: PATIENT A & O X 3, OBSERVED AMBULATING ON UNIT UNASSISTED. IN NO ACUTE DISTRESS. 09/18/18 15:24 Vital Signs Temperature 97.7 F 09/18/18 13:49 Pulse Rate 84 09/18/18 13:49 Respiratory Rate 16 09/18/18 13:49 Blood Pressure 139/85 09/18/18 13:49 O2 Sat by Pulse Oximetry (%) Laboratory Tests 09/16/18 09/16/18 09/16/18 12:30 12:30 12:30 WBC 14.1 H RBC 4.29 Hgb 11.4 L Hct 35.8 MCV 83.3 MCH 26.6 MCHC 31.9 L RDW 16.2 H Plt Count 332 MPV 7.9 Absolute Neuts (auto) Neutrophils % Lymphocytes % Monocytes % Eosinophils % Basophils % Nucleated RBC % Sodium 137 Potassium 3.8 Chloride 102 Carbon Dioxide 31 Anion Gap 5 L BUN 23 H Creatinine 0.9 Est GFR (CKD-EPI)AfAm 118.30 Est GFR (CKD-EPI)NonAf 102.07 Random Glucose 86 Calcium 9.0 Total Bilirubin 0.3 AST 30 ALT 30 Alkaline Phosphatase 80 Total Protein 7.0 Albumin 3.8 Urine Color Urine Appearance Urine pH Ur Specific Sunshine Urine Protein Urine Glucose (UA) Urine Ketones Urine Blood Urine Nitrite Urine Bilirubin Urine Urobilinogen Ur Leukocyte Esterase Urine WBC (Auto) Urine RBC (Auto) Urine Casts (Auto) U Epithel Cells (Auto) Urine Bacteria (Auto) RPR Titer Nonreactive 09/18/18 09/18/18 09:55 10:30 WBC 9.8 RBC 4.42 Hgb 11.9 Hct 36.8 MCV 83.2 MCH 26.9 MCHC 32.3 RDW 15.8 Plt Count 370 MPV 8.0 Absolute Neuts (auto) 5.8 Neutrophils % 58.9 D Lymphocytes % 31.4 D Monocytes % 7.1 Eosinophils % 1.8 D Basophils % 0.8 Nucleated RBC % 0 Sodium Potassium Chloride Carbon Dioxide Anion Gap BUN Creatinine Est GFR (CKD-EPI)AfAm Est GFR (CKD-EPI)NonAf Random Glucose Calcium Total Bilirubin AST ALT Alkaline Phosphatase Total Protein Albumin Urine Color Yellow Urine Appearance Clear Urine pH 6.5 D Ur Specific Sunshine 1.015 Urine Protein Negative Urine Glucose (UA) Negative Urine Ketones Negative Urine Blood 1+ H Urine Nitrite Negative Urine Bilirubin Negative Urine Urobilinogen 0.2 Ur Leukocyte Esterase Negative Urine WBC (Auto) 28.2 Urine RBC (Auto) 18 Urine Casts (Auto) 9 U Epithel Cells (Auto) 0.3 Urine Bacteria (Auto) 89.2 RPR Titer LABS NOTED. PATIENT NOTED TO HAVE ELEVATED WBC LEVEL ON DETOX ADMISSION. REPEAT CBC ORDERED AND DRAWN. REPEAT WBC LEVEL NOW NOTED TO BE WITHIN NORMAL RANGE. PATIENT AFEBRILE. PATIENT REPORTS THAT HE PRESCRIBED AZITHROMYCIN FOR TREATMENT FOR URI-TYPE INFECTION AT ER PRIOR TO DETOX ADMISSION. PATIEN T RECEIVING REMAINDER OF DOSES OF AZITHROMYCIN TODAY AND TOMORROW. UA ORDERED FOR ELEVATED WBC LEVEL AND BECAUSE HE WAS RECENTLY TREATED FOR URINARY TRACT INFECTION AND THAT HE NOTICED BLOOD IN HIS URINE X 1 TIME. RESULTS OF UA NOTED. URINE BLOOD + 1 AND RBC (18) AND WBC (28.2) LEVELS NOTED TO BE ELEVATED. ENCOURAGED PATIENT TO INCREASE DFAILY PO WATER INTAKE. WILL REPEAT UA TOMORROW AM FOR ABNORMALITIES NOTED ON TODAY'S UA. PATIENT DENIES ANY UNUSUAL URINARY COMPLAINTS (BURNING, PAIN, FREQUENCY, URGENCY , HESITANCY) AT THIS TIME. 09/18/18 15:27 Assessment: 09/18/18 15:29 WITHDRAWAL SYMPTOMS. HEMATURIA. LEUKOCYTOSIS (RESOLVED). 09/18/18 15:30 Plan: CONTINUE DETOX. INCREASE DAILY PO FLUID / WATER INTAKE.
[2018-09-18] MEDS ORDERED: chlordiazePOXIDE HCL 10 MG CAPSULE PO PRN (17:00)
[2018-09-18] MEDS: chlordiazePOXIDE HCL 10 MG CAPSULE PO SCH ×2 (17:29→22:03)
[2018-09-18] MEDS: MELATONIN 5 MG TABLETS PO PRN (22:00)
[2018-09-18] MEDS: THIAMINE HCL 100 MG TABLET (FP) PO SCH (22:01)
[2018-09-19] MEDS: chlordiazePOXIDE HCL 10 MG CAPSULE PO SCH ×3 (06:17→17:01)
[2018-09-19] MEDS ORDERED: METHADONE HCL 5 MG TABLET (FOR DETOX USE ONLY) ONE (08:37)
[2018-09-19] MEDS ORDERED: METHADONE HCL 10 MG TABLET (FOR DETOX USE ONLY) ONE (08:38)
[2018-09-19] MEDS ORDERED: METHADONE HCL 10 MG TABLET (FOR DETOX USE ONLY) PO ONE (10:00)
[2018-09-19] MEDS ORDERED: METHADONE (DETOX) 10 MG, METHADONE (DETOX) 5 MG PO ONE (10:00)
[2018-09-19] MEDS: AZITHROMYCIN 250 MG TABLET PO SCH (10:13)
[2018-09-19] MEDS: PRENATAL VITAMINS W/ FOLIC ACID TABLET (FP) PO SCH (10:13)
[2018-09-19] MEDS: SILVER SULFADIAZINE 1% TOP CREAM 50 GM JAR TP SCH ×2 (10:16→22:17)
[2018-09-19] MEDS: BUDESONIDE/FORMETEROL FUMARATE 80/4.5 mcg INHALER IH SCH ×2 (10:17→22:17)
[2018-09-19] MEDS: TIOTROPIUM BROMIDE 2.5 MCG (SPIRIVA) RESPIMAT INHALER IH SCH (10:17)
--- NOTE | 2018-09-19 11:29 | PN ---
S CIWA - CIWA Score Nausea/Vomitin Muscle Tremors: 2 Anxiety: 1-Mildly Anxious Agitation: 1-Slight > Activity Paroxysmal Sweats: 1-Minimal Palms Moist Orientation: 0-Oriented Tacttile Disturbances: 1-Very Mild Itch/Numbness Auditory Disturbances: 1-Very Mild Visual Disturbances: 0-None Headache: 2-Mild CIWA-Ar Total Score: 11 BHS COWS - Scale Resting Pulse: 0= [place] 80 or Below Sweatin= Chills/Flushing Restless Observation: 1= Difficult to Sit Still Pupil Size: 1= Pupils >than Normal Bone or Joint Aches: 2= Severe Diffuse Aches Runny Nose/ Eye Tearin= Nasal Congestion GI Upset > 30mins: 1= Stomach Cramp Tremor Observation of Outstretched Hands: 2= Slight Tremor Visible Yawning Observation: 0= None Anxiety or Irritability: 1=Feels Anxious/Irritable Goose Flesh Skin: 0=Smooth Skin COWS Score: 10 [facility] Progress Note (SOAP) Subjective: alert,irritable,anxious,interrupted sleep Objective: 09/19/18 11:28 Vital Signs Temperature 98.1 F 09/19/18 09:18 Pulse Rate 78 09/19/18 09:18 Respiratory Rate 18 09/19/18 09:18 Blood Pressure 126/71 09/19/18 09:18 O2 Sat by Pulse Oximetry (%) Assessment: 09/19/18 11:28 withdrawal symptom Plan: continue detox
[2018-09-19] MEDS: THIAMINE HCL 100 MG TABLET (FP) PO SCH (22:17)
[2018-09-19] MEDS: MELATONIN 5 MG TABLETS PO PRN (22:18)
[2018-09-20] MEDS: chlordiazePOXIDE HCL 10 MG CAPSULE PO SCH (05:28)
[2018-09-20] MEDS ORDERED: METHADONE HCL 5 MG TABLET (FOR DETOX USE ONLY) PO ONE (06:00)
[2018-09-20 09:16] VITALS: BP 107/51; PULSE 84; TEMP 97.7
--- NOTE | 2018-09-20 09:25 | DS ---
[facility] Detox Discharge Summary Admission Date: 09/16/18 Discharge Date: 09/20/18 - History Present History: Alcohol Dependence, Cocaine Dependence, Opioid Dependence, Sedative Dependence - Physical Exam Results Vital Signs: Vital Signs Temperature 97.7 F 09/20/18 09:16 Pulse Rate 84 09/20/18 09:16 Respiratory Rate 18 09/20/18 09:16 Blood Pressure 107/51 L 09/20/18 09:16 O2 Sat by Pulse Oximetry (%) - Treatment Hospital Course: Detox Protocol Followed, Detoxed Safely, Responded well, Discharged Condition Good, Rehab Referral Accepted - Medication Discharge Medications: Ambulatory Orders Albuterol Sulfate Inhaler - [Ventolin HFA Inhaler -] 1 - 2 inh PO QID PRN #1 inhaler 05/23/18 Budesonide/Formeterol Fumarate [SYMBICORT 80/4.5mcg -] 1 inh BID 07/09/18 Tiotropium Sibley [Spiriva] 18 mcg IH DAILY #1 cap.w.dev 09/05/18 - Diagnosis (1) Alcohol dependence with uncomplicated withdrawal Current Visit: Yes Status: Chronic (2) Asthma Current Visit: Yes Status: Chronic Qualifiers: Asthma severity: mild Asthma complication type: unspecified (3) Drug-induced mood disorder Current Visit: No Status: Acute (4) Mediastinal adenopathy Current Visit: No Status: Acute (5) Opioid dependence with withdrawal Current Visit: Yes Status: Chronic (6) Sedative, hypnotic or anxiolytic dependence, uncomplicated Current Visit: Yes Status: Acute (7) Status post endoscopic retrograde cholangiopancreatography Current Visit: No Status: Chronic (8) Cocaine dependence, uncomplicated Current Visit: Yes Status: Chronic (9) History of back pain Current Visit: Yes Status: Chronic (10) Nicotine dependence Current Visit: Yes Status: Chronic Qualifiers: Nicotine product type: cigarettes Substance use status: uncomplicated Qualified Code(s): F17.210 - Nicotine dependence, cigarettes, uncomplicated (11) Nontraumatic perforated nasal septum Current Visit: No Status: Chronic (12) Acute respiratory failure with hypoxia and hypercarbia Current Visit: No Status: Resolved - AMA Did Patient Leave Against Medical Advice: No (pt declined afercare. referred to see his PCP)
[2018-09-20] MEDS: PRENATAL VITAMINS W/ FOLIC ACID TABLET (FP) PO SCH (09:30)
[2018-09-20] MEDS: TIOTROPIUM BROMIDE 2.5 MCG (SPIRIVA) RESPIMAT INHALER IH SCH (09:32)
[2018-09-20] MEDS: SILVER SULFADIAZINE 1% TOP CREAM 50 GM JAR TP SCH (09:32)
[2018-09-20] MEDS: BUDESONIDE/FORMETEROL FUMARATE 80/4.5 mcg INHALER IH SCH (09:33)
[2018-09-20] MEDS ORDERED: METHADONE HCL 10 MG TABLET (FOR DETOX USE ONLY) PO ONE (10:00)
[2018-09-21] MEDS ORDERED: METHADONE HCL 5 MG TABLET (FOR DETOX USE ONLY) PO ONE (06:00)
== END 2018-09-20 09:31 | disposition home or self-care (01) | DRG 773 ==
LOC: YASAS 09:05 → Y6N 12:10
PROVIDERS: ADMIT Surgery; ATTEND Surgery
PROC: HZ2ZZZZ Detoxification Services for Substance Abuse Treatment (ICD-10-PCS; principal; 2018-09-16)
DX: F11.23 Opioid dependence with withdrawal (principal); F10.230 Alcohol dependence with withdrawal, uncomplicated; F13.230 Sedative, hypnotic or anxiolytic dependence with withdrawal, uncomplicated; F14.20 Cocaine dependence, uncomplicated; F12.20 Cannabis dependence, uncomplicated; F17.210 Nicotine dependence, cigarettes, uncomplicated; F19.24 Other psychoactive substance dependence with psychoactive substance-induced mood disorder; J45.901 Unspecified asthma with (acute) exacerbation; J20.9 Acute bronchitis, unspecified; Z91.81 History of falling
CPT/HCPCS: 36415; 80053; 81003; 85025; 85027; 86593

== ENCOUNTER 2018-09-21 04:54 | Emergency (ER) | payer OTHER ==
[2018-09-21 05:28] VITALS: BMI 27.3
[2018-09-21] MEDS ORDERED: ALBUTEROL SO4 2.5/IPRATROPIUM 0.5 INH SOL 3 ML VIAL.NEB. NEB ONE ×2 (05:32→06:04)
--- NOTE | 2018-09-21 05:51 | PDOC ---
History of Present Illness - General History Source: Patient Exam Limitations: No Limitations <Ivet Hurley - Last Filed: 09/21/18 06:08> <Toshia Roberson - Last Filed: 09/21/18 06:32> - General Chief Complaint: Shortness of Breath Stated Complaint: DIFFICULTY BREATHING Time Seen by Provider: 09/21/18 05:25 Past History - Past Medical History Anemia: No Asthma: Yes (on alberol inhaler and symbicort) Cancer: No Cardiac Disorders: No CVA: No COPD: No CHF: No DVT: No Dementia: No Diabetes: No GI Disorders: No Disorders: No HTN: No Hypercholesterolemia: No Kidney Stones: No Liver Disease: No Seizures: No Thyroid Disease: No - Surgical History Abdominal Surgery: No Appendectomy: No Cardiac Surgery: No Cholecystectomy: No Lung Surgery: No Neurologic Surgery: No Orthopedic Surgery: No - Reproductive History Testicular Surgery: No - Immunization History Td Vaccination: Yes Immunization Up to Date: Yes - Suicide/Smoking/Psychosocial Hx Smoking Status: Yes Smoking History: Current every day smoker Years of Tobacco Use: 40 Have you smoked in the past 12 months: No Number of Cigarettes Smoked Daily: 2 If you are a former smoker, when did you quit?: 2017 Cigars Per Day: 0 Information on smoking cessation initiated: No 'Breaking Loose' booklet given: 09/16/18 Hx Alcohol Use: No Drug/Substance Use Hx: No Substance Use Type: Alcohol, Heroin Hx Substance Use Treatment: Yes (07/09/18 to 07/10/18 not completed) <Ivet Hurley - Last Filed: 09/21/18 06:08> <Toshia Roberson - Last Filed: 09/21/18 06:32> - Past Medical History Allergies/Adverse Reactions: Allergies Allergy/AdvReac Type Severity Reaction Status Date / Time No Known Allergies Allergy Verified 09/21/18 05:26 Home Medications: Ambulatory Orders Albuterol Sulfate Inhaler - [Ventolin HFA Inhaler -] 1 - 2 inh PO QID PRN #1 inhaler 05/23/18 Budesonide/Formeterol Fumarate [SYMBICORT 80/4.5mcg -] 1 inh BID 07/09/18 Tiotropium Boyd [Spiriva] 18 mcg IH DAILY #1 cap.w.dev 09/05/18 Albuterol 0.083% Nebulizer Radha [Ventolin 0.083% Nebulizer Soln -] 1 neb NEB Q4H PRN #30 vial 09/21/18 Respiratory Specific PMHX - Complaint Specific PMHX TB (Tuberculosis): No <Ivet Hurley - Last Filed: 09/21/18 06:08> *Physical Exam - Vital Signs Last Vital Signs Temp Pulse Resp BP Pulse Ox 98.2 F 81 22 H 116/64 97 09/21/18 05:26 09/21/18 05:26 09/21/18 05:26 09/21/18 05:26 09/21/18 05:26 - Physical Exam General Appearance: No: Apparent Distress Respiratory/Chest: positive: Lungs Clear, Normal Breath Sounds. negative: Respiratory Distress, Paradoxal Breathing, Crackles, Rales, Rhonchi, Stridor, Wheezing Cardiovascular: positive: Regular Rhythm, Regular Rate, S1, S2. negative: Murmur Gastrointestinal/Abdominal: positive: Normal Bowel Sounds, Soft. negative: Tender, Distended, Guarding, Rebound Extremity: negative: Pedal Edema, Swelling, Calf Tenderness Integumentary: positive: Normal Color Neurologic: positive: Alert, Normal Mood/Affect <MeiIvet sotelo - Last Filed: 09/21/18 06:08> - Vital Signs Last Vital Signs Temp Pulse Resp BP Pulse Ox 97.9 F 78 20 118/72 97 09/21/18 06:17 09/21/18 06:17 09/21/18 06:17 09/21/18 06:17 09/21/18 06:17 <Toshia Roberson - Last Filed: 09/21/18 06:32> ED Treatment Course - Medications Given in the ED: ED Medications Discontinued Medications Generic Name Dose Route Start Last Admin Trade Name Freq PRN Reason Stop Dose Admin Albuterol/Ipratropium 1 amp 09/21/18 05:32 09/21/18 06:12 Duoneb - NEB 09/21/18 05:33 1 amp ONCE ONE Administration <Toshia Roberson - Last Filed: 09/21/18 06:32> Medical Decision Making - Medical Decision Making 47 y/o M hx of asthma (never intubated, hospitalized in the past), cocaine/ heroin use (last used cocaine yesterday and heroin 1 week ago), occasional smoker (states smoking the past 20 years but not everyday), was just discharged from detox yesterday presents with c/o SOB, chest tightness and wheezing which started at 1 AM today. Patient was smoking cigarettes a few hours before his sxs started. States symptoms feel like his typical asthma. Used the albuterol pump which did not help much. States he ran out of his albuterol nebulizer 2-3 days ago. Patient takes Albuterol and Symbicort for his asthma, Patient has multiple visits to hospital for asthma. Patient has also been seen by pulmonogist, Dr. Rdz, in the past, was also started on Singulair, but patient denies taking that medication. Has not followed up with pulmonogy for his asthma. Currently no wheezing noted and patient appears in NAD Patient noncomplaint with care Will give duoneb x1 as patient is requesting; do not feel the need to start steroids now 09/21/18 05:53 <Ivet Hurley - Last Filed: 09/21/18 06:08> - Medical Decision Making The patient was seen and evaluated in conjunction with midlevel provider under my direct supervision, ancillary studies were reviewed. I agree with the plan as outlined JEANMARIE Hurley. HPI, workup/dispo as outlined. VS reviewed, wnl. NAD, comfortable, recently out of detox yesterday (h/o opioid, cocaine use) given duoneb smoking cessation med instructions on asthma care, as likely trigger from poor compliance DC stable condition, return precautions 09/21/18 06:31 <Toshia Roberson - Last Filed: 09/21/18 06:32> *DC/Admit/Observation/Transfer - Discharge Dispostion Decision to Admit order: No <Ivet Hurley - Last Filed: 09/21/18 06:08> <Toshia Roberson - Last Filed: 09/21/18 06:32> Diagnosis at time of Disposition: Asthma Qualifiers: Asthma severity: unspecified severity Asthma persistence: unspecified Asthma complication type: uncomplicated Qualified Code(s): J45.909 - Unspecified asthma , uncomplicated - Discharge Dispostion Disposition: HOME Condition at time of disposition: Stable - Prescriptions Prescriptions: Albuterol 0.083% Nebulizer Radha [Ventolin 0.083% Nebulizer Soln -] 1 neb NEB Q4H PRN #30 vial PRN Reason: Shortness Of Breath - Referrals Referrals: Eric Yanez MD [Primary Care Provider] - 2 Days Fletcher Rdz MD, MD [Staff Physician] - 2 Days - Patient Instructions Printed Discharge Instructions: Asthma -- Adult Additional Instructions: Thank you for choosing [facility]. It was a pleasure taking care of you. Use the Albuterol as needed for asthma Would recommend stop smoking Please follow-up with pulmonology for further management of your asthma Return to the Emergency Department if your symptoms worsen or persist or have other concerning symptoms. - Post Discharge Activity
[2018-09-21 06:26] VITALS: BP 118/72; PULSE 78; TEMP 97.9
== END 2018-09-21 06:35 | disposition home or self-care (01) ==
LOC: JER 04:54
PROC: 3E0F7GC Introduction of Other Therapeutic Substance into Respiratory Tract, Via Natural or Artificial Opening (ICD-10-PCS; principal; 2018-09-21)
DX: J45.909 Unspecified asthma, uncomplicated (principal); F14.10 Cocaine abuse, uncomplicated; F11.10 Opioid abuse, uncomplicated; F17.210 Nicotine dependence, cigarettes, uncomplicated
CPT/HCPCS: 94640; 99282-25

== ENCOUNTER 2018-10-20 17:10 | Inpatient (IN) | payer OTHER ==
[2018-10-20] MEDS ORDERED: methylPREDNISolone NA SUCC 125 MG/2 ML VIAL ONE (17:29)
[2018-10-20] MEDS ORDERED: ALBUTEROL SO4 2.5/IPRATROPIUM 0.5 INH SOL 3 ML VIAL.NEB. NEB ONE ×2 (17:29→17:33)
[2018-10-20] MEDS ORDERED: SODIUM CHLORIDE 0.9% 1000 ML INFUS.BAG IV ONE (17:33)
[2018-10-20] MEDS ORDERED: methylPREDNISolone NA SUCC 125 MG/2 ML VIAL IVPB ONE (17:40)
[2018-10-20] MEDS ORDERED: MAGNESIUM SULF 50% (8.12 MEQ/2 ML-1 GM VIAL) IVPB ONE ×2 (17:40→18:56)
[2018-10-20] MEDS ORDERED: MAGNESIUM 1GM/D5W - 1 GM/100 ML IVPB IVPB ONE ×2 (17:55→19:06)
[2018-10-20 17:56] LABS: EOS % 0.6 % (0-4.5); RDW 14.5 % (11.9-15.9)
[2018-10-20] MEDS ORDERED: ALBUTEROL SO4 0.083% IH SOL 2.5 MG/3 ML VIAL.NEB. NEB ONE ×4 (18:02→19:07)
[2018-10-20 18:14] LABS: BASO % 0.5 % (0-2.0); HEMATOCRIT 34.7 % (35.4-49); HEMOGLOBIN 11.2 GM/dL (11.7-16.9); LYMPH % 9.9 % (8-40); MCH 26.3 pg (25.7-33.7); MCHC 32.3 g/dl (32.0-35.9); MEAN CELL VOLUME 81.5 fl (80-96); MEAN PLT VOLUME 8.1 fl (7.5-11.1); MONO % 8.8 % (3.8-10.2); NEUT % 80.2 % (42.8-82.8); PLATELET COUNT 241 K/MM3 (134-434); RBC 4.25 M/mm3 (4.00-5.60); WHITE BLOOD COUNT 18.1 K/mm3 (4.0-10.0)
[2018-10-20 18:16] LABS: ARTERIAL BLD GAS O2 SATURATION 98.3 % (95-98); ARTERIAL BLOOD GAS BASE EXCESS 2.3 meq/l (-2-2); ARTERIAL BLOOD GAS PO2 109 mmHg (80-105); ARTERIAL BLOOD GAS pH 7.39 (7.35-7.45); CARBOXYHEMOGLOBIN 2.9 % (0-2)
[2018-10-20 18:31] LABS: ALBUMIN 3.2 g/dl (3.4-5.0); BILIRUBIN,TOTAL 0.4 mg/dL (0.2-1); BLOOD UREA NITROGEN 14.4 mg/dL (7-18); CALCIUM 8.5 mg/dL (8.5-10.1); CREATININE 0.8 mg/dL (0.55-1.3); MAGNESIUM 2.2 mg/dL (1.8-2.4); POTASSIUM 3.9 mmol/L (3.5-5.1); TOT PROT 6.6 g/dl (6.4-8.2)
[2018-10-20] MEDS ORDERED: AZITHROMYCIN IVPB 500 MG in DEXTROSE 5%-WATER - 250 ML IVPB ONE (18:56)
[2018-10-20] MEDS ORDERED: AZITHROMYCIN IVPB 500 MG/250 ML BAG IVPB ONE (19:13)
--- NOTE | 2018-10-20 19:15 | PDOC ---
Documentation entered by Ankit Pierce SCRIBE, acting as scribe for Preeti Alejandro DO. Preeti Alejandro DO: This documentation has been prepared by the Stan ortega Nirvannie, SCRIBE, under my direction and personally reviewed by me in its entirety. I confirm that the documentation accurately reflects all work, treatment, procedures, and medical decision making performed by me. History of Present Illness - General Chief Complaint: Asthma Stated Complaint: ASTHMA Time Seen by Provider: 10/20/18 17:28 History Source: Patient Exam Limitations: No Limitations - History of Present Illness Initial Comments: 10/20/18 17:42 The patient is a 47 year old male, with a significant past medical history of Heroin abuse (snort last usage yesterday, 2 bags) and COPD/asthma, who presents to the emergency department with, shortness of breath and productive cough white sputum. Patient endorses similar episodes in the past secondary to his asthma exacerbations and endorses an associated headache only when coughing. He denies any fevers or chills. He denies any focal changes in strength or sensation. He denies any recent nausea, vomiting, diarrhea, or constipation. Allergies: NKDA Past History - Past Medical History Allergies/Adverse Reactions: Allergies Allergy/AdvReac Type Severity Reaction Status Date / Time No Known Allergies Allergy Verified 10/20/18 17:21 Home Medications: Ambulatory Orders Albuterol Sulfate Inhaler - [Ventolin HFA Inhaler -] 1 - 2 inh PO QID PRN #1 inhaler 05/23/18 Budesonide/Formeterol Fumarate [SYMBICORT 80/4.5mcg -] 1 inh BID 07/09/18 Tiotropium [place] [Spiriva] 18 mcg IH DAILY #1 cap.w.dev 09/05/18 Albuterol 0.083% Nebulizer Radha [Ventolin 0.083% Nebulizer Soln -] 1 neb NEB Q4H PRN #30 vial 09/21/18 Anemia: No Asthma: Yes (on alberol inhaler and symbicort) Cancer: No Cardiac Disorders: No CVA: No COPD: No CHF: No DVT: No Dementia: No Diabetes: No GI Disorders: No Disorders: No HTN: Yes Hypercholesterolemia: No Kidney Stones: No Liver Disease: No Seizures: No Thyroid Disease: No - Surgical History Abdominal Surgery: No Appendectomy: No Cardiac Surgery: No Cholecystectomy: No Lung Surgery: No Neurologic Surgery: No Orthopedic Surgery: No - Reproductive History Testicular Surgery: No - Immunization History Td Vaccination: Yes Immunization Up to Date: Yes - Suicide/Smoking/Psychosocial Hx Smoking Status: Yes Smoking History: Current every day smoker Years of Tobacco Use: 40 Have you smoked in the past 12 months: No Number of Cigarettes Smoked Daily: 2 If you are a former smoker, when did you quit?: 2017 Cigars Per Day: 0 Information on smoking cessation initiated: No 'Breaking Loose' booklet given: 09/16/18 Hx Alcohol Use: No Drug/Substance Use Hx: Yes (heroin) Substance Use Type: Alcohol, Heroin Hx Substance Use Treatment: Yes (07/09/18 to 07/10/18 not completed) Review of Systems - Review of Systems Able to Perform ROS?: Yes Comments:: 10/20/18 17:42 GENERAL/CONSTITUTIONAL: No fever or chills. No weakness. HEAD, EYES, EARS, NOSE AND THROAT: No change in vision. No ear pain or discharge. No sore throat. GASTROINTESTINAL: No nausea, vomiting, diarrhea or constipation. GENITOURINARY: No dysuria, frequency, or change in urination. CARDIOVASCULAR: No chest pain. RESPIRATORY: +Cough. +SOB. No wheezing, or hemoptysis. MUSCULOSKELETAL: No joint or muscle swelling or pain. No neck or back pain. SKIN: No rash NEUROLOGIC: No headache, vertigo, loss of consciousness, or change in strength/ sensation. ENDOCRINE: No increased thirst. No abnormal weight change. HEMATOLOGIC/LYMPHATIC: No anemia, easy bleeding, or history of blood clots. ALLERGIC/IMMUNOLOGIC: No hives or skin allergy. All Other Systems: Reviewed and Negative *Physical Exam - Vital Signs Last Vital Signs Temp Pulse Resp BP Pulse Ox 98.3 F 100 H 18 113/63 82 L 10/20/18 17:17 10/20/18 17:17 10/20/18 17:17 10/20/18 17:17 10/20/18 17:17 - Physical Exam Comments: 10/20/18 17:44 Constitutional: Awake, alert, oriented. No acute distress. Head: Normocephalic. Atraumatic Eyes: PERRL. EOMI. Conjunctivae are not pale. ENT: Mucous membranes are moist and intact. Posterior pharynx without exudates or erythema. Uvula midline. Neck: Supple. Full ROM. No lymphadenopathy. Cardiovascular: Regular rate. Regular rhythm. S1, S2 regular. Distal pulses are 2+ and symmetric. Pulmonary/Chest: +Soft expiratory wheezing blt. Diminished breath sounds blt. No rales or rhonchi. Abdominal: Soft and non-distended. There is no tenderness. No rebound, guarding or rigidity. No organomegaly. No palpable masses. Good bowel sounds. Back: No CVA tenderness. Musculoskeletal: No edema. No cyanosis. No clubbing. Full range of motion in all extremities. No calf tenderness. Radial/pedal pulses are intact and 2+ bilaterally Skin: Skin is warm and dry. No petechiae. No purpura. Neurological: Alert and oriented to person, place, and time. Cranial nerves II -XII are grossly intact. Normal speech. Strength is grossly symmetric. No sensory deficits. Psychiatric: Good eye contact. Normal interaction, affect and behavior. ED Treatment Course - LABORATORY CBC & Chemistry Diagram: 10/20/18 17:45 10/20/18 17:45 - ADDITIONAL ORDERS Additional order review: Laboratory Results 10/20/18 10/20/18 18:00 17:45 Anticoagulation Therapy No Result Required. Puncture Site No Result Required. ABG pH 7.39 ABG pCO2 at Pt Temp 46.0 H ABG pO2 at Pt Temp 109 H ABG HCO3 27.2 H ABG O2 Sat (Measured) 98.3 H ABG O2 Content 15.4 ABG Base Excess 2.3 H Jw Test No Result Required. Carboxyhemoglobin 2.9 H Methemoglobin 0.2 O2 Delivery Device No Result Required. Oxygen Flow Rate No Result Required. Vent Mode No Result Required. Vent Rate No Result Required. Mechanical Rate No Result Required. Pressure Support Vent No Result Required. Sodium 137 Potassium 3.9 Chloride 100 Carbon Dioxide 30 Anion Gap 6 L BUN 14.4 Creatinine 0.8 Est GFR (CKD-EPI)AfAm 124.16 Est GFR (CKD-EPI)NonAf 107.13 Random Glucose 115 H Calcium 8.5 Magnesium 2.2 Total Bilirubin 0.4 AST 23 ALT 16 Alkaline Phosphatase 100 Total Protein 6.6 Albumin 3.2 L 10/20/18 17:45 RBC 4.25 MCV 81.5 MCHC 32.3 RDW 14.5 MPV 8.1 Neutrophils % 80.2 D Lymphocytes % 9.9 D Monocytes % 8.8 Eosinophils % 0.6 Basophils % 0.5 - RADIOLOGY Radiology Studies Ordered: Category Date Time Status CHEST X-RAY PORTABLE* [RAD] Stat Radiology 10/20/18 17:33 Ordered - Medications Given in the ED: ED Medications Discontinued Medications Generic Name Dose Route Start Last Admin Trade Name Remberto PRN Reason Stop Dose Admin Albuterol Sulfate 2 amp 10/20/18 18:05 10/20/18 18:05 Ventolin 0.083% Nebulizer Soln - NEB 10/20/18 18:06 2 amp ONCE ONE Administration Albuterol/Ipratropium 3 amp 10/20/18 17:33 10/20/18 17:35 Duoneb - NEB 10/20/18 17:34 3 amp ONCE ONE Administration Magnesium Sulfate 1 gm 10/20/18 17:40 10/20/18 18:00 Magnesium Sulfate IVPB 10/20/18 17:41 1 gm ONCE ONE Administration Methylprednisolone Sodium Succinate 125 mg 10/20/18 17:40 10/20/18 17:43 Solu-Medrol - IVPB 10/20/18 17:41 125 mg ONCE ONE Administration Sodium Chloride 1,000 ml 10/20/18 17:33 10/20/18 18:00 Normal Saline - IV 10/20/18 17:34 1,000 ml ONCE ONE Administration Medical Decision Making - Medical Decision Making 10/20/18 18:57 a/p: 47yo male with hx of asthma and copd and heroin use with cough and sob x 2 days -chest tightness -barely moving air -started on nebs and steroids immediately upon arrival -last heroin use yesterday -will send labs -no fevers -cough is productive white sputum -will need admission -hypoxic upon arrival 10/20/18 19:13 no pna on cxr elevated wbc will start azithromycin -steroids and nebs given -additional nebs given, on ra pt is hypoxic to 85%, on nebs pulse ox 99% will give clonidine and bentyl for heroin withdrawal 10/20/18 19:[address] Diaz who accepts pt to service *DC/Admit/Observation/Transfer Diagnosis at time of Disposition: Asthma exacerbation, Hypoxia, Heroin abuse - Discharge Dispostion Condition at time of disposition: Guarded Decision to Admit order: Yes - Referrals - Patient Instructions - Post Discharge Activity - Attestations Physician Attestion: 10/20/18 19:14 I, Dr. Preeti Alejandro, DO, attest that this document has been prepared under my direction and personally reviewed by me in its entirety. I further attest, that it accurately reflects all work, treatment, procedures and medical decision -making performed by me.
[2018-10-20] MEDS ORDERED: DICYCLOMINE HCL 10 MG CAPSULE PO ONE (19:16)
[2018-10-20] MEDS ORDERED: cloNIDine HCL 0.1 MG TABLET PO ONE (19:16)
[2018-10-20] MEDS ORDERED: ACETAMINOPHEN 1000 MG/100 ML VIAL (NON FORMULARY) IVPB ONE (19:16)
[2018-10-20 21:34] VITALS: BMI 26.4
[2018-10-20] MEDS ORDERED: ONDANSETRON 4 MG/2 ML VIAL IVPUSH PRN (22:44)
[2018-10-20] MEDS ORDERED: METHADONE HCL 10 MG TABLET PO ONE (23:00)
[2018-10-20] MEDS: BUDESONIDE/FORMETEROL FUMARATE 80/4.5 mcg INHALER IH SCH (23:48)
[2018-10-21] MEDS: ALBUTEROL SO4 2.5/IPRATROPIUM 0.5 INH SOL 3 ML VIAL.NEB. NEB SCH ×5 (00:15→20:53)
[2018-10-21 02:02] LABS: METHADONE, UR NEGATIVE ng/ml (CUTOFF=300); PHENCYCLIDINE,URINE NEGATIVE ng/ml (CUTOFF=25); URINE AMPHETAMINES NEGATIVE ng/ml (CUTOFF=500); URINE BARBITURATES NEGATIVE ng/ml (CUTOFF=200); URINE BENZODIAZEPINES NEGATIVE ng/ml (CUTOFF=200)
[2018-10-21 02:06] LABS: COCAINE, UR POSITIVE ng/ml (CUTOFF=300); OPIATES, URI POSITIVE ng/ml (CUTOFF=300)
[2018-10-21] MEDS: methylPREDNISolone NA SUCC 40 MG/1 ML VIAL IVPUSH SCH ×3 (04:00→18:56)
[2018-10-21] MEDS: DEXTROSE 5%-0.45% SALINE 1,000 ML IV SCH (05:22)
[2018-10-21 06:00] LABS: ALBUMIN 2.6 g/dl (3.4-5.0); BILIRUBIN,TOTAL 0.2 mg/dL (0.2-1); CALCIUM 7.6 mg/dL (8.5-10.1); CREATININE 0.8 mg/dL (0.55-1.3); POTASSIUM 3.6 mmol/L (3.5-5.1); TOT PROT 5.7 g/dl (6.4-8.2)
[2018-10-21 06:24] LABS: BASO % 0.2 % (0-2.0); EOS % 1.7 % (0-4.5); HEMATOCRIT 30.8 % (35.4-49); HEMOGLOBIN 10.1 GM/dL (11.7-16.9); LYMPH % 11.2 % (8-40); MCH 27.2 pg (25.7-33.7); MCHC 32.9 g/dl (32.0-35.9); MEAN CELL VOLUME 82.7 fl (80-96); MEAN PLT VOLUME 8.5 fl (7.5-11.1); MONO % 9.4 % (3.8-10.2); NEUT % 77.5 % (42.8-82.8); PLATELET COUNT 188 K/MM3 (134-434); RBC 3.72 M/mm3 (4.00-5.60); RDW 14.8 % (11.9-15.9); WHITE BLOOD COUNT 10.9 K/mm3 (4.0-10.0)
[2018-10-21] MEDS ORDERED: cefTRIAXone SODIUM 1 GM VIAL ONE (09:29)
[2018-10-21] MEDS ORDERED: PT OWN MED DRAWER 7, Y5N ONE (09:29)
[2018-10-21] MEDS ORDERED: DEXTROSE 5%-WATER - 50 ML IVPB ONE (09:30)
[2018-10-21] MEDS: BUDESONIDE/FORMETEROL FUMARATE 80/4.5 mcg INHALER IH SCH ×2 (10:03→21:15)
[2018-10-21] MEDS: CEFTRIAXONE 1 GM in DEXTROSE 5%-WATER - 50 ML IVPB SCH (10:04)
[2018-10-21] MEDS: AZITHROMYCIN IVPB 250 MG in DEXTROSE 5%-WATER - 250 ML IVPB SCH (10:04)
[2018-10-21] MEDS: HEPARIN NA (PORCINE) 5,000 UNITS/ML 1ML VIAL SQ SCH ×2 (10:05→21:15)
--- NOTE | 2018-10-21 11:18 | EKG ---
Test Reason : Blood Pressure : / mmHG Vent. Rate : 100 BPM Atrial Rate : 100 BPM P-R Int : 170 ms QRS Dur : 086 ms QT Int : 334 ms P-R-T Axes : 067 047 045 degrees QTc Int : 430 ms NORMAL SINUS RHYTHM NORMAL ECG WHEN COMPARED WITH ECG OF 15-SEP-2018 04:03, NO SIGNIFICANT CHANGE WAS FOUND Confirmed by ILYA COTTRELL MD ([id number]) on 10/21/2018 11:18:01 AM Referred By: Confirmed By:ILYA COTTRELL MD
--- NOTE | 2018-10-21 12:06 | CON.PULM ---
Consult Consult Specialty:: PULMONARY Referred by:: Dr Diaz Reason for Consultation:: shortness of breath - History of Present Illness Chief Complaint: shortness of breath History of Present Illness: 47yo male with h/o asthma, heroin abuse who was admitted with worsening shortness of breath x 2 days. Last use of inhalational heroin was 2 days ago. Pt has been admitted multiple times with similar presentations. +cough with white sputum and wheezing. +chest tightness. No fevers or chills. Occasional smoker. Reports compliance with his Symbicort and albuterol. - History Source History Provided By: Patient, Medical Record Limitations to Obtaining History: No Limitations - Past Medical History Pulmonary: Yes: Asthma, Bronchitis, COPD Psych: Yes: Addictions (heroin) - Past Surgical History Past Surgical History: Yes: None - Alcohol/Substance Use Hx Alcohol Use: No History of Substance Use: reports: Heroin - Smoking History Smoking history: Current some day smoker Have you smoked in the past 12 months: No Aproximately how many cigarettes per day: 2 If you are a former smoker, when did you quit?: 2017 - Social History ADL: Independent Occupation: Unemployed History of Recent Travel: No Home Medications - Allergies Allergies/Adverse Reactions: Allergies Allergy/AdvReac Type Severity Reaction Status Date / Time No Known Allergies Allergy Verified 10/20/18 17:21 - Home Medications Home Medications: Ambulatory Orders Albuterol Sulfate Inhaler - [Ventolin HFA Inhaler -] 1 - 2 inh PO QID PRN #1 inhaler 05/23/18 Budesonide/Formeterol Fumarate [SYMBICORT 80/4.5mcg -] 1 inh PO BID 07/09/18 Albuterol 0.083% Nebulizer Radha [Ventolin 0.083% Nebulizer Soln -] 1 neb NEB Q4H PRN #30 vial 09/21/18 Clonidine HCl [Catapres] 0.2 mg PO BID 10/20/18 Family Disease History - Family Disease History Family Disease History: Diabetes: Mother, CA: Father (.) Review of Systems - Review of Systems Constitutional: reports: Weakness. denies: Chills, Fever Eyes: denies: Recent Change in Vision HENT: denies: Nasal Congestion, Throat Pain Neck: denies: Stiffness, Tenderness Cardiovascular: reports: Shortness of Breath. denies: Chest Pain, Edema, Palpitations Respiratory: reports: Cough, SOB, SOB on Exertion, Wheezing. denies: Hemoptysis Gastrointestinal: denies: Abdominal Pain, Nausea, Vomiting Genitourinary: denies: Dysuria, Hematuria Neurological: denies: Dizziness, Headache Endocrine: denies: Unexplained Weight Loss Physical Exam Vital Sings: Vital Signs Temperature 98.2 F 10/21/18 02:00 Pulse Rate 90 10/21/18 04:00 Respiratory Rate 20 10/21/18 04:00 Blood Pressure 113/78 10/21/18 04:00 O2 Sat by Pulse Oximetry (%) 96 10/20/18 21:20 Constitutional: Yes: Anxious Eyes: Yes: Conjunctiva Clear, EOM Intact HENT: Yes: Atraumatic, Normocephalic Neck: Yes: Supple, Trachea Midline Cardiovascular: Yes: Regular Rate and Rhythm Respiratory: Yes: Diminished, Poor Air Entry, Rhonchi, Wheezes ...Clubbing: No Gastrointestinal: Yes: Normal Bowel Sounds, Soft. No: Tenderness Edema: No Neurological: Yes: Alert, Oriented Labs: CBC, BMP 10/21/18 05:15 10/21/18 05:15 ABG Results ABG pH 7.39 (7.35-7.45) 10/20/18 18:00 ABG pCO2 at Pt Temp 46.0 mmHg (35-45) H 10/20/18 18:00 ABG pO2 at Pt Temp 109 mmHg (80-105) H 10/20/18 18:00 ABG HCO3 27.2 mmol/L (22-27) H 10/20/18 18:00 ABG O2 Sat (Measured) 98.3 % (95-98) H 10/20/18 18:00 ABG O2 Content 15.4 % vol (15-22) 10/20/18 18:00 ABG Base Excess 2.3 meq/l (-2-2) H 10/20/18 18:00 Imaging - Results Chest X-ray: Report Reviewed, Image Reviewed (no infiltrates) Problem List - Problems (1) Asthma exacerbation Code(s): J45.901 - UNSPECIFIED ASTHMA WITH (ACUTE) EXACERBATION (2) Heroin abuse Code(s): F11.10 - OPIOID ABUSE, UNCOMPLICATED (3) Hypoxia Code(s): R09.02 - HYPOXEMIA Assessment/Plan Acute Hypoxic Respiratory Failure Acute Asthma Exacerbation Heroin Abuse - IV medrol - inhaled bronchodilators standing and PRN - O2 to keep SpO2 >90% - singulair - heroin cessation - DVT prophylaxis Thank you for this consult Fletcher Rdz MD
[2018-10-21] MEDS ORDERED: ALBUTEROL SO4 0.083% IH SOL 2.5 MG/3 ML VIAL.NEB. NEB PRN (12:10)
--- NOTE | 2018-10-21 18:22 | HP ---
Admitting History and Physical - Admission History of Present Illness: 47yo male with h/o asthma, heroin abuse who was admitted with worsening shortness of breath x 2 days. Last use of inhalational heroin was 2 days ago. Pt has been admitted multiple times with similar presentations. +cough with white sputum and wheezing. +chest tightness. No fevers or chills. Occasional smoker. Reports compliance with his Symbicort and albuterol. - Past Medical History Pulmonary: Yes: Asthma, Bronchitis Psych: Yes: Addictions (heroin) - Past Surgical History Past Surgical History: Yes: None - Smoking History Smoking history: Current some day smoker Have you smoked in the past 12 months: No Aproximately how many cigarettes per day: 2 If you are a former smoker, when did you quit?: 2017 - Alcohol/Substance Use Hx Alcohol Use: No History of Substance Use: reports: Heroin - Social History ADL: Independent Occupation: Unemployed History of Recent Travel: No Home Medications - Allergies Allergies/Adverse Reactions: Allergies Allergy/AdvReac Type Severity Reaction Status Date / Time No Known Allergies Allergy Verified 10/20/18 17:21 - Home Medications Home Medications: Ambulatory Orders Albuterol Sulfate Inhaler - [Ventolin HFA Inhaler -] 1 - 2 inh PO QID PRN #1 inhaler 05/23/18 Budesonide/Formeterol Fumarate [SYMBICORT 80/4.5mcg -] 1 inh PO BID 07/09/18 Albuterol 0.083% Nebulizer Radha [Ventolin 0.083% Nebulizer Soln -] 1 neb NEB Q4H PRN #30 vial 09/21/18 Clonidine HCl [Catapres] 0.2 mg PO BID 10/20/18 Family Disease History - Family Disease History Family History: Unremarkable Family Disease History: Diabetes: Mother, CA: Father (.) Review of Systems - Review of Systems Constitutional: reports: No Symptoms HENT: reports: No Symptoms Neck: reports: No Symptoms Cardiovascular: reports: Shortness of Breath Respiratory: reports: Cough, SOB, Wheezing Gastrointestinal: reports: No Symptoms Genitourinary: reports: No Symptoms Physical Examination Vital Signs: Vital Signs Temperature 98.2 F 10/21/18 02:00 Pulse Rate 89 10/21/18 16:00 Respiratory Rate 20 10/21/18 16:00 Blood Pressure 125/76 10/21/18 16:00 O2 Sat by Pulse Oximetry (%) 96 10/21/18 09:00 Constitutional: Yes: No Distress Neck: Yes: WNL, Supple Cardiovascular: Yes: WNL, Regular Rate and Rhythm Respiratory: Yes: Wheezes Gastrointestinal: Yes: WNL, Normal Bowel Sounds, Soft Extremities: Yes: WNL Edema: No Neurological: Yes: WNL, Alert, Oriented ...Motor Strength: WNL Labs: CBC, BMP 10/21/18 05:15 10/21/18 05:15 Problem List - Problems (1) Asthma exacerbation Assessment/Plan: Cont IV zithro/ceftriaxone Cont IV steroids Cont inhalers Pulmonary consult Code(s): J45.901 - UNSPECIFIED ASTHMA WITH (ACUTE) EXACERBATION (2) Heroin abuse Assessment/Plan: Will start on methadone Addiction consult Code(s): F11.10 - OPIOID ABUSE, UNCOMPLICATED
[2018-10-21] MEDS: METHADONE HCL 10 MG TABLET PO SCH (20:31)
[2018-10-21] MEDS: MONTELUKAST NA 10 MG TABLET PO SCH (21:15)
[2018-10-22] MEDS: methylPREDNISolone NA SUCC 40 MG/1 ML VIAL IVPUSH SCH ×3 (02:30→17:48)
[2018-10-22] MEDS: METHADONE HCL 10 MG TABLET PO SCH (05:35)
[2018-10-22] MEDS: DEXTROSE 5%-0.45% SALINE 1,000 ML IV SCH (05:40)
[2018-10-22 06:49] LABS: BASO % 0.1 % (0-2.0); HEMATOCRIT 31.8 % (35.4-49); HEMOGLOBIN 10.4 GM/dL (11.7-16.9); LYMPH % 4.9 % (8-40); MCH 26.5 pg (25.7-33.7); MCHC 32.8 g/dl (32.0-35.9); MEAN CELL VOLUME 80.9 fl (80-96); MEAN PLT VOLUME 8.7 fl (7.5-11.1); MONO % 5.9 % (3.8-10.2); NEUT % 89.1 % (42.8-82.8); PLATELET COUNT 224 K/MM3 (134-434); RBC 3.93 M/mm3 (4.00-5.60); RDW 14.6 % (11.9-15.9); WHITE BLOOD COUNT 13.6 K/mm3 (4.0-10.0)
[2018-10-22 07:42] LABS: ALBUMIN 2.8 g/dl (3.4-5.0); BILIRUBIN,TOTAL 0.1 mg/dL (0.2-1); BLOOD UREA NITROGEN 8.2 mg/dL (7-18); CALCIUM 8.8 mg/dL (8.5-10.1); CREATININE 0.6 mg/dL (0.55-1.3); TOT PROT 6.1 g/dl (6.4-8.2)
--- NOTE | 2018-10-22 08:25 | PN ---
[facility] Progress Note (SOAP) Subjective: patient referred for consultation , reports use of heroin via inhalation x 10 years , approximately 6 bags /day denies IVDU , most recent use 2 days ago currently reports anxiety , irritability , chills, sweating, detox in September 2018 at [facility] , did not participate in outpatient program after d/ c , hospitalized for asthma exacerbation and given 20 mg Methadone yesterday currently on IV antibiotics . + cocaine use via inhalation , not daily , + tobacco use denies reports relapse on ETOH . Active Medications Albuterol Sulfate (Ventolin 0.083% Nebulizer Soln -) 1 amp NEB Q4H PRN PRN Reason: SHORT OF BREATH/WHEEZING Albuterol/Ipratropium (Duoneb -) 1 amp NEB RQID [facility] Last Admin: 10/21/18 20:53 Dose: Not Given Budesonide/Formoterol Fumarate (Symbicort 80/4.5mcg -) 1 puff IH BID [facility] Last Admin: 10/21/18 21:15 Dose: 1 puff Heparin Sodium (Porcine) (Heparin -) 5,000 unit SQ BID [facility] Last Admin: 10/21/18 21:15 Dose: 5,000 unit Azithromycin 250 mg/ Dextrose 250 mls @ 250 mls/hr IVPB DAILY [facility] Last Admin: 10/21/18 10:04 Dose: 250 mls/hr Ceftriaxone Sodium 1 gm/ (Dextrose) 50 mls @ 100 mls/hr IVPB DAILY [facility]; Protocol Last Admin: 10/21/18 10:04 Dose: 100 mls/hr Dextrose/Sodium Chloride (D5-1/2ns -) 1,000 mls @ 75 mls/hr IV ASDIR [facility] Last Admin: 10/22/18 05:40 Dose: 75 mls/hr Methadone HCl (Dolophine -) 10 mg PO DAILY@0600 [facility] Last Admin: 10/22/18 05:35 Dose: 10 mg Methylprednisolone Sodium Succinate (Solu-Medrol -) 40 mg IVPUSH Q8H-IV [facility] Last Admin: 10/22/18 02:30 Dose: 40 mg Montelukast Sodium (Singulair -) 10 mg PO HS [facility] Last Admin: 10/21/18 21:15 Dose: 10 mg Ondansetron HCl (Zofran Injection) 4 mg IVPUSH Q8H PRN PRN Reason: NAUSEA Objective: 10/22/18 08:24 Abnormal Lab Results 10/22/18 10/22/18 05:42 05:42 WBC 13.6 H RBC 3.93 L Hgb 10.4 L Hct 31.8 L Absolute Neuts (auto) 12.1 H Neutrophils % 89.1 H Lymphocytes % 4.9 L D Random Glucose 161 H Total Bilirubin 0.1 L AST 12 L Total Protein 6.1 L Albumin 2.8 L Vital Signs - 24 hr 10/21/18 10/21/18 10/21/18 09:00 16:00 19:10 Temperature 97.3 F L Pulse Rate 89 99 H Respiratory 20 20 17 Rate Blood Pressure 125/76 122/59 L O2 Sat by Pulse 96 Oximetry (%) 10/21/18 10/21/18 10/22/18 21:18 22:30 00:25 Temperature 97.6 F 97.7 F Pulse Rate 77 66 Respiratory 17 20 15 Rate Blood Pressure 123/68 138/80 O2 Sat by Pulse 96 Oximetry (%) 10/22/18 10/22/18 04:30 05:34 Temperature 97.7 F Pulse Rate 46 L 48 L Respiratory 13 12 Rate Blood Pressure 120/68 133/82 O2 Sat by Pulse Oximetry (%) Assessment: 10/22/18 08:25 opioid dependence Plan: Methadone taper . pt to consider inpt rehab when medically cleared.
[2018-10-22] MEDS: ALBUTEROL SO4 2.5/IPRATROPIUM 0.5 INH SOL 3 ML VIAL.NEB. NEB SCH ×4 (08:48→21:00)
[2018-10-22] MEDS ORDERED: PT OWN MED DRAWER 7, Y5N ONE (09:01)
[2018-10-22] MEDS ORDERED: DEXTROSE 5%-WATER - 50 ML IVPB ONE (09:02)
[2018-10-22] MEDS ORDERED: cefTRIAXone SODIUM 1 GM VIAL ONE (09:02)
[2018-10-22] MEDS: cloNIDine HCL 0.1 MG TABLET PO PRN ×2 (09:26→13:33)
[2018-10-22] MEDS: CEFTRIAXONE 1 GM in DEXTROSE 5%-WATER - 50 ML IVPB SCH (09:29)
[2018-10-22] MEDS: AZITHROMYCIN IVPB 250 MG in DEXTROSE 5%-WATER - 250 ML IVPB SCH (09:29)
[2018-10-22] MEDS: HEPARIN NA (PORCINE) 5,000 UNITS/ML 1ML VIAL SQ SCH ×2 (09:29→21:56)
[2018-10-22] MEDS: BUDESONIDE/FORMETEROL FUMARATE 80/4.5 mcg INHALER IH SCH ×2 (09:30→22:14)
[2018-10-22] MEDS ORDERED: METHADONE HCL 5 MG TABLET PO ONE ×2 (09:30→09:45)
--- NOTE | 2018-10-22 12:12 | PN ---
Progress Note (short form) - Note Progress Note: PULMONARY States breathing better but still with dyspnea on exertion, cough and wheezing. Vital Signs Period Temp Pulse Resp BP Sys/Devries Pulse Ox Last 24 Hr 97.3 F-98.2 F 46-99 12-20 120-145/59-82 94-96 Gen: less tachypneic Heart: RRR Lung: better air entry, bilateral rhonchi, wheezes Abd: soft, nontender Ext: no edema CBC, BMP 10/22/18 05:42 10/22/18 05:42 Active Medications Albuterol Sulfate (Ventolin 0.083% Nebulizer Soln -) 1 amp NEB Q4H PRN PRN Reason: SHORT OF BREATH/WHEEZING Albuterol/Ipratropium (Duoneb -) 1 amp NEB RQID [facility] Last Admin: 10/22/18 11:25 Dose: 1 amp Budesonide/Formoterol Fumarate (Symbicort 80/4.5mcg -) 1 puff IH BID [facility] Last Admin: 10/22/18 09:30 Dose: 1 puff Clonidine (Catapres -) 0.1 mg PO Q4H PRN PRN Reason: Withdrawal Symptoms Stop: 10/23/18 23:59 Last Admin: 10/22/18 09:26 Dose: 0.1 mg Heparin Sodium (Porcine) (Heparin -) 5,000 unit SQ BID [facility] Last Admin: 10/22/18 09:29 Dose: 5,000 unit Azithromycin 250 mg/ Dextrose 250 mls @ 250 mls/hr IVPB DAILY [facility] Last Admin: 10/22/18 09:29 Dose: 250 mls/hr Ceftriaxone Sodium 1 gm/ (Dextrose) 50 mls @ 100 mls/hr IVPB DAILY [facility]; Protocol Last Admin: 10/22/18 09:29 Dose: 100 mls/hr Dextrose/Sodium Chloride (D5-1/2ns -) 1,000 mls @ 75 mls/hr IV ASDIR [facility] Last Admin: 10/22/18 05:40 Dose: 75 mls/hr Methadone HCl (Dolophine -) 10 mg PO ONCE ONE Stop: 10/23/18 10:01 Methadone HCl (Dolophine -) 5 mg PO ONCE ONE Stop: 10/24/18 10:01 Methadone HCl (Dolophine -) 5 mg PO ONCE ONE Stop: 10/25/18 06:01 Methylprednisolone Sodium Succinate (Solu-Medrol -) 40 mg IVPUSH Q8H-IV [facility] Last Admin: 10/22/18 09:29 Dose: 40 mg Montelukast Sodium (Singulair -) 10 mg PO HS [facility] Last Admin: 10/21/18 21:15 Dose: 10 mg A/P Acute Hypoxic Respiratory Failure improving Acute Asthma Exacerbation Heroin Abuse - continue medrol at current dose - if continues to improve, can change steroids to PO prednisone 40mg daily - inhaled bronchodilators standing and PRN - O2 to keep SpO2 >90% - singulair - heroin cessation - DVT prophylaxis Problem List - Problems (1) Asthma exacerbation Code(s): J45.901 - UNSPECIFIED ASTHMA WITH (ACUTE) EXACERBATION (2) Heroin abuse Code(s): F11.10 - OPIOID ABUSE, UNCOMPLICATED (3) Hypoxia Code(s): R09.02 - HYPOXEMIA
--- NOTE | 2018-10-22 21:31 | PN ---
Progress Note, Physician History of Present Illness: No new complaints - Current Medication List Current Medications: Active Medications Albuterol Sulfate (Ventolin 0.083% Nebulizer Soln -) 1 amp NEB Q4H PRN PRN Reason: SHORT OF BREATH/WHEEZING Albuterol/Ipratropium (Duoneb -) 1 amp NEB RQID [facility] Last Admin: 10/22/18 15:11 Dose: Not Given Budesonide/Formoterol Fumarate (Symbicort 80/4.5mcg -) 1 puff IH BID [facility] Last Admin: 10/22/18 09:30 Dose: 1 puff Clonidine (Catapres -) 0.1 mg PO Q4H PRN PRN Reason: Withdrawal Symptoms Stop: 10/23/18 23:59 Last Admin: 10/22/18 13:33 Dose: 0.1 mg Heparin Sodium (Porcine) (Heparin -) 5,000 unit SQ BID [facility] Last Admin: 10/22/18 09:29 Dose: 5,000 unit Azithromycin 250 mg/ Dextrose 250 mls @ 250 mls/hr IVPB DAILY [facility] Last Admin: 10/22/18 09:29 Dose: 250 mls/hr Ceftriaxone Sodium 1 gm/ (Dextrose) 50 mls @ 100 mls/hr IVPB DAILY [facility]; Protocol Last Admin: 10/22/18 09:29 Dose: 100 mls/hr Dextrose/Sodium Chloride (D5-1/2ns -) 1,000 mls @ 75 mls/hr IV ASDIR [facility] Last Admin: 10/22/18 05:40 Dose: 75 mls/hr Methadone HCl (Dolophine -) 10 mg PO ONCE ONE Stop: 10/23/18 10:01 Methadone HCl (Dolophine -) 5 mg PO ONCE ONE Stop: 10/24/18 10:01 Methadone HCl (Dolophine -) 5 mg PO ONCE ONE Stop: 10/25/18 06:01 Methylprednisolone Sodium Succinate (Solu-Medrol -) 40 mg IVPUSH Q8H-IV [facility] Last Admin: 10/22/18 17:48 Dose: 40 mg Montelukast Sodium (Singulair -) 10 mg PO HS [facility] Last Admin: 10/21/18 21:15 Dose: 10 mg - Objective Vital Signs: Vital Signs Temperature 98.2 F 10/22/18 09:20 Pulse Rate 80 10/22/18 20:00 Respiratory Rate 18 10/22/18 20:00 Blood Pressure 132/68 10/22/18 20:00 O2 Sat by Pulse Oximetry (%) 94 L 10/22/18 20:00 HENT: Yes: WNL Neck: Yes: WNL, Supple Cardiovascular: Yes: WNL, Regular Rate and Rhythm Respiratory: Yes: Wheezes Gastrointestinal: Yes: WNL, Normal Bowel Sounds, Soft Labs: CBC, BMP 10/22/18 05:42 10/22/18 05:42 Problem List - Problems (1) Asthma exacerbation Assessment/Plan: Cont IV zithro/ceftriaxone Cont IV steroids Cont inhalers Code(s): J45.901 - UNSPECIFIED ASTHMA WITH (ACUTE) EXACERBATION (2) Heroin abuse Assessment/Plan: Methadone taper Pt is refusing any inpt rehab Code(s): F11.10 - OPIOID ABUSE, UNCOMPLICATED
[2018-10-22] MEDS: MONTELUKAST NA 10 MG TABLET PO SCH (21:56)
[2018-10-23] MEDS: DEXTROSE 5%-0.45% SALINE 1,000 ML IV SCH ×2 (01:04→22:05)
[2018-10-23] MEDS: methylPREDNISolone NA SUCC 40 MG/1 ML VIAL IVPUSH SCH ×3 (01:05→18:05)
[2018-10-23] MEDS: ALBUTEROL SO4 2.5/IPRATROPIUM 0.5 INH SOL 3 ML VIAL.NEB. NEB SCH ×4 (08:00→21:00)
[2018-10-23] MEDS ORDERED: cefTRIAXone SODIUM 1 GM VIAL ONE (08:36)
[2018-10-23] MEDS ORDERED: DEXTROSE 5%-WATER - 50 ML IVPB ONE (08:36)
[2018-10-23] MEDS: CEFTRIAXONE 1 GM in DEXTROSE 5%-WATER - 50 ML IVPB SCH (09:03)
[2018-10-23] MEDS: HEPARIN NA (PORCINE) 5,000 UNITS/ML 1ML VIAL SQ SCH ×2 (09:03→22:05)
[2018-10-23] MEDS: cloNIDine HCL 0.1 MG TABLET PO PRN ×3 (09:04→21:54)
[2018-10-23] MEDS: BUDESONIDE/FORMETEROL FUMARATE 80/4.5 mcg INHALER IH SCH ×2 (09:09→21:55)
[2018-10-23] MEDS ORDERED: METHADONE HCL 10 MG TABLET PO ONE (10:00)
[2018-10-23] MEDS: AZITHROMYCIN IVPB 250 MG in DEXTROSE 5%-WATER - 250 ML IVPB SCH (10:13)
--- NOTE | 2018-10-23 12:37 | PN ---
Progress Note (short form) - Note Progress Note: PULMONARY States breathing better but still with dyspnea on exertion, cough and wheezing. Does not feel ready to go home yet. Has been ambulating around unit. Vital Signs Period Temp Pulse Resp BP Sys/Devries Pulse Ox Last 24 Hr 98.2 F-98.8 F 50-88 14-18 131-160/68-75 94-96 Gen: less tachypneic Heart: RRR Lung: better air entry, bilateral rhonchi, wheezes Abd: soft, nontender Ext: no edema CBC, BMP 10/22/18 05:42 10/22/18 05:42 Active Medications Albuterol Sulfate (Ventolin 0.083% Nebulizer Soln -) 1 amp NEB Q4H PRN PRN Reason: SHORT OF BREATH/WHEEZING Albuterol/Ipratropium (Duoneb -) 1 amp NEB RQID VARSHA Last Admin: 10/23/18 12:15 Dose: 1 amp Budesonide/Formoterol Fumarate (Symbicort 80/4.5mcg -) 1 puff IH BID VARSHA Last Admin: 10/23/18 09:09 Dose: 1 puff Clonidine (Catapres -) 0.1 mg PO Q4H PRN PRN Reason: Withdrawal Symptoms Stop: 10/23/18 23:59 Last Admin: 10/23/18 09:04 Dose: 0.1 mg Heparin Sodium (Porcine) (Heparin -) 5,000 unit SQ BID VARSHA Last Admin: 10/23/18 09:03 Dose: Not Given Azithromycin 250 mg/ Dextrose 250 mls @ 250 mls/hr IVPB DAILY VARSHA Last Admin: 10/23/18 10:13 Dose: 250 mls/hr Ceftriaxone Sodium 1 gm/ (Dextrose) 50 mls @ 100 mls/hr IVPB DAILY VARSHA; Protocol Last Admin: 10/23/18 09:03 Dose: 100 mls/hr Dextrose/Sodium Chloride (D5-1/2ns -) 1,000 mls @ 75 mls/hr IV ASDIR VARSHA Last Admin: 10/23/18 01:04 Dose: Not Given Methadone HCl (Dolophine -) 5 mg PO ONCE ONE Stop: 10/24/18 10:01 Methadone HCl (Dolophine -) 5 mg PO ONCE ONE Stop: 10/25/18 06:01 Methylprednisolone Sodium Succinate (Solu-Medrol -) 40 mg IVPUSH Q8H-IV VARSHA Last Admin: 10/23/18 09:02 Dose: 40 mg Montelukast Sodium (Singulair -) 10 mg PO HS [facility] Last Admin: 10/22/18 21:56 Dose: 10 mg A/P Acute Hypoxic Respiratory Failure improving Acute Asthma Exacerbation Heroin Abuse - continue medrol at current dose - if continues to improve, can change steroids to PO prednisone 40mg daily in AM - inhaled bronchodilators standing and PRN - O2 to keep SpO2 >90% - singulair - heroin cessation - DVT prophylaxis Problem List - Problems (1) Asthma exacerbation Code(s): J45.901 - UNSPECIFIED ASTHMA WITH (ACUTE) EXACERBATION (2) Heroin abuse Code(s): F11.10 - OPIOID ABUSE, UNCOMPLICATED (3) Hypoxia Code(s): R09.02 - HYPOXEMIA
--- NOTE | 2018-10-23 19:25 | PN ---
Progress Note, Physician - Current Medication List Current Medications: Active Medications Albuterol Sulfate (Ventolin 0.083% Nebulizer Soln -) 1 amp NEB Q4H PRN PRN Reason: SHORT OF BREATH/WHEEZING Albuterol/Ipratropium (Duoneb -) 1 amp NEB RQID VARSHA Last Admin: 10/23/18 16:00 Dose: 1 amp Budesonide/Formoterol Fumarate (Symbicort 80/4.5mcg -) 1 puff IH BID VARSHA Last Admin: 10/23/18 09:09 Dose: 1 puff Clonidine (Catapres -) 0.1 mg PO Q4H PRN PRN Reason: Withdrawal Symptoms Stop: 10/23/18 23:59 Last Admin: 10/23/18 17:31 Dose: 0.1 mg Heparin Sodium (Porcine) (Heparin -) 5,000 unit SQ BID VARSHA Last Admin: 10/23/18 09:03 Dose: Not Given Azithromycin 250 mg/ Dextrose 250 mls @ 250 mls/hr IVPB DAILY VARSHA Last Admin: 10/23/18 10:13 Dose: 250 mls/hr Ceftriaxone Sodium 1 gm/ (Dextrose) 50 mls @ 100 mls/hr IVPB DAILY VARSHA; Protocol Last Admin: 10/23/18 09:03 Dose: 100 mls/hr Dextrose/Sodium Chloride (D5-1/2ns -) 1,000 mls @ 75 mls/hr IV ASDIR VARSHA Last Admin: 10/23/18 01:04 Dose: Not Given Methadone HCl (Dolophine -) 5 mg PO ONCE ONE Stop: 10/24/18 10:01 Methadone HCl (Dolophine -) 5 mg PO ONCE ONE Stop: 10/25/18 06:01 Methylprednisolone Sodium Succinate (Solu-Medrol -) 40 mg IVPUSH Q8H-IV VARSHA Last Admin: 10/23/18 18:05 Dose: 40 mg Montelukast Sodium (Singulair -) 10 mg PO HS VARSHA Last Admin: 10/22/18 21:56 Dose: 10 mg - Objective Vital Signs: Vital Signs Temperature 98.2 F 10/23/18 06:00 Pulse Rate 56 L 10/23/18 06:00 Respiratory Rate 18 10/23/18 09:00 Blood Pressure 160/70 10/23/18 06:00 O2 Sat by Pulse Oximetry (%) 96 10/23/18 09:00 Labs: CBC, BMP 10/22/18 05:42 10/22/18 05:42 Problem List - Problems (1) Asthma exacerbation Code(s): J45.901 - UNSPECIFIED ASTHMA WITH (ACUTE) EXACERBATION (2) Heroin abuse Code(s): F11.10 - OPIOID ABUSE, UNCOMPLICATED
[2018-10-23] MEDS: diphenhydrAMINE HCL 25 MG CAPSULE (FP) PO PRN (21:54)
[2018-10-23] MEDS: MONTELUKAST NA 10 MG TABLET PO SCH (21:54)
[2018-10-24] MEDS: methylPREDNISolone NA SUCC 40 MG/1 ML VIAL IVPUSH SCH ×3 (01:17→18:22)
[2018-10-24] MEDS: ALBUTEROL SO4 2.5/IPRATROPIUM 0.5 INH SOL 3 ML VIAL.NEB. NEB SCH ×4 (08:00→21:01)
[2018-10-24] MEDS ORDERED: cefTRIAXone SODIUM 1 GM VIAL ONE (08:33)
[2018-10-24] MEDS ORDERED: DEXTROSE 5%-WATER - 50 ML IVPB ONE (08:33)
[2018-10-24] MEDS: HEPARIN NA (PORCINE) 5,000 UNITS/ML 1ML VIAL SQ SCH ×2 (09:03→21:17)
[2018-10-24] MEDS: CEFTRIAXONE 1 GM in DEXTROSE 5%-WATER - 50 ML IVPB SCH (09:03)
[2018-10-24] MEDS: BUDESONIDE/FORMETEROL FUMARATE 80/4.5 mcg INHALER IH SCH ×2 (09:16→21:25)
[2018-10-24] MEDS ORDERED: METHADONE HCL 5 MG TABLET PO ONE (10:00)
[2018-10-24] MEDS: AZITHROMYCIN IVPB 250 MG in DEXTROSE 5%-WATER - 250 ML IVPB SCH (10:56)
[2018-10-24] MEDS ORDERED: cloNIDine HCL 0.1 MG TABLET PO ONE (13:00)
--- NOTE | 2018-10-24 13:13 | PN ---
Progress Note (short form) - Note Progress Note: PULMONARY Feels more short of breath today. +cough and wheezes Vital Signs Period Temp Pulse Resp BP Sys/Devries Pulse Ox Last 24 Hr 97.9 F 69 18-19 168/99 96 Gen: tachypneic with exertion Heart: RRR Lung: poor air entry, bilateral rhonchi, wheezes Abd: soft, nontender Ext: no edema CBC, BMP 10/22/18 05:42 10/22/18 05:42 Active Medications Albuterol Sulfate (Ventolin 0.083% Nebulizer Soln -) 1 amp NEB Q4H PRN PRN Reason: SHORT OF BREATH/WHEEZING Albuterol/Ipratropium (Duoneb -) 1 amp NEB RQID VARSHA Last Admin: 10/24/18 12:25 Dose: 1 amp Budesonide/Formoterol Fumarate (Symbicort 80/4.5mcg -) 1 puff IH BID VARSHA Last Admin: 10/24/18 09:16 Dose: 1 puff Clonidine (Catapres -) 0.1 mg PO TID VARSHA Diphenhydramine HCl (Benadryl -) 25 mg PO HS PRN PRN Reason: INSOMNIA Last Admin: 10/23/18 21:54 Dose: 25 mg Heparin Sodium (Porcine) (Heparin -) 5,000 unit SQ BID VARSHA Last Admin: 10/24/18 09:03 Dose: 5,000 unit Azithromycin 250 mg/ Dextrose 250 mls @ 250 mls/hr IVPB DAILY VARSHA Last Admin: 10/24/18 10:56 Dose: 250 mls/hr Ceftriaxone Sodium 1 gm/ (Dextrose) 50 mls @ 100 mls/hr IVPB DAILY VARSHA; Protocol Last Admin: 10/24/18 09:03 Dose: 100 mls/hr Methadone HCl (Dolophine -) 5 mg PO ONCE ONE Stop: 10/25/18 06:01 Methylprednisolone Sodium Succinate (Solu-Medrol -) 40 mg IVPUSH Q8H-IV VARSHA Last Admin: 10/24/18 09:03 Dose: 40 mg Montelukast Sodium (Singulair -) 10 mg PO HS VARSHA Last Admin: 10/23/18 21:54 Dose: 10 mg A/P Acute Hypoxic Respiratory Failure improving Acute Asthma Exacerbation Heroin Abuse - continue medrol at current dose - if continues to improve, can change steroids to PO prednisone 40mg daily in AM - inhaled bronchodilators standing and PRN - O2 to keep SpO2 >90% - singulair - heroin cessation - DVT prophylaxis Problem List - Problems (1) Asthma exacerbation Code(s): J45.901 - UNSPECIFIED ASTHMA WITH (ACUTE) EXACERBATION (2) Heroin abuse Code(s): F11.10 - OPIOID ABUSE, UNCOMPLICATED (3) Hypoxia Code(s): R09.02 - HYPOXEMIA
[2018-10-24] MEDS: cloNIDine HCL 0.1 MG TABLET PO SCH ×2 (13:16→21:17)
[2018-10-24] MEDS: diphenhydrAMINE HCL 25 MG CAPSULE (FP) PO PRN (21:18)
[2018-10-24] MEDS: MONTELUKAST NA 10 MG TABLET PO SCH (21:18)
--- NOTE | 2018-10-24 23:38 | PN ---
Progress Note, Physician - Current Medication List Current Medications: Active Medications Albuterol Sulfate (Ventolin 0.083% Nebulizer Soln -) 1 amp NEB Q4H PRN PRN Reason: SHORT OF BREATH/WHEEZING Albuterol/Ipratropium (Duoneb -) 1 amp NEB RQID VARSHA Last Admin: 10/24/18 21:01 Dose: 1 amp Budesonide/Formoterol Fumarate (Symbicort 80/4.5mcg -) 1 puff IH BID VARSHA Last Admin: 10/24/18 21:25 Dose: 1 puff Clonidine (Catapres -) 0.1 mg PO TID VARSHA Last Admin: 10/24/18 21:17 Dose: 0.1 mg Diphenhydramine HCl (Benadryl -) 25 mg PO HS PRN PRN Reason: INSOMNIA Last Admin: 10/24/18 21:18 Dose: 25 mg Heparin Sodium (Porcine) (Heparin -) 5,000 unit SQ BID VARSHA Last Admin: 10/24/18 21:17 Dose: 5,000 unit Azithromycin 250 mg/ Dextrose 250 mls @ 250 mls/hr IVPB DAILY VARSHA Last Admin: 10/24/18 10:56 Dose: 250 mls/hr Ceftriaxone Sodium 1 gm/ (Dextrose) 50 mls @ 100 mls/hr IVPB DAILY [facility]; Protocol Last Admin: 10/24/18 09:03 Dose: 100 mls/hr Methadone HCl (Dolophine -) 5 mg PO ONCE ONE Stop: 10/25/18 06:01 Methylprednisolone Sodium Succinate (Solu-Medrol -) 40 mg IVPUSH Q8H-IV VARSHA Last Admin: 10/24/18 18:22 Dose: 40 mg Montelukast Sodium (Singulair -) 10 mg PO HS VARSHA Last Admin: 10/24/18 21:18 Dose: 10 mg - Objective Vital Signs: Vital Signs Temperature 97.8 F 10/24/18 08:00 Pulse Rate 68 10/24/18 15:27 Respiratory Rate 19 10/24/18 15:27 Blood Pressure 116/71 10/24/18 15:27 O2 Sat by Pulse Oximetry (%) 96 10/24/18 20:24 Labs: CBC, BMP 10/22/18 05:42 10/22/18 05:42 Problem List - Problems (1) Asthma exacerbation Code(s): J45.901 - UNSPECIFIED ASTHMA WITH (ACUTE) EXACERBATION (2) Heroin abuse Code(s): F11.10 - OPIOID ABUSE, UNCOMPLICATED
[2018-10-25] MEDS: methylPREDNISolone NA SUCC 40 MG/1 ML VIAL IVPUSH SCH ×2 (02:06→10:01)
[2018-10-25] MEDS: cloNIDine HCL 0.1 MG TABLET PO SCH (05:49)
[2018-10-25] MEDS ORDERED: METHADONE HCL 5 MG TABLET PO ONE (06:00)
[2018-10-25 06:26] VITALS: BP 158/102; PULSE 66; TEMP 97.3
[2018-10-25] MEDS: ALBUTEROL SO4 2.5/IPRATROPIUM 0.5 INH SOL 3 ML VIAL.NEB. NEB SCH ×2 (07:30→11:23)
[2018-10-25] MEDS ORDERED: cefTRIAXone SODIUM 1 GM VIAL ONE (09:54)
[2018-10-25] MEDS ORDERED: DEXTROSE 5%-WATER - 50 ML IVPB ONE (09:55)
[2018-10-25] MEDS: BUDESONIDE/FORMETEROL FUMARATE 80/4.5 mcg INHALER IH SCH (10:01)
[2018-10-25] MEDS: HEPARIN NA (PORCINE) 5,000 UNITS/ML 1ML VIAL SQ SCH (10:01)
[2018-10-25] MEDS: CEFTRIAXONE 1 GM in DEXTROSE 5%-WATER - 50 ML IVPB SCH (10:01)
[2018-10-25] MEDS: AZITHROMYCIN IVPB 250 MG in DEXTROSE 5%-WATER - 250 ML IVPB SCH (10:01)
== END 2018-10-25 13:48 | disposition home or self-care (01) | DRG 141 ==
LOC: JER 17:10 → SUPCPDRO 17:10 → JERBED 19:15 → J2W 20:41
PROVIDERS: ADMIT Internal Medicine; ATTEND Internal Medicine
PROC: 3E0F7GC Introduction of Other Therapeutic Substance into Respiratory Tract, Via Natural or Artificial Opening (ICD-10-PCS; principal; 2018-10-20)
DX: J45.901 Unspecified asthma with (acute) exacerbation (principal); J96.01 Acute respiratory failure with hypoxia; F11.20 Opioid dependence, uncomplicated; J44.9 Chronic obstructive pulmonary disease, unspecified; F17.210 Nicotine dependence, cigarettes, uncomplicated; I10 Essential (primary) hypertension
CPT/HCPCS: 36415; 36600; 71045-TC-FY; 80053; 80307; 82375; 82803; 83050; 83735; 85025; 93005; 93010; 94640; 99283-25; J0131; J0735; J1644; J7030

== ENCOUNTER 2018-10-28 00:58 | Emergency (ER) | payer OTHER ==
[2018-10-28 01:24] VITALS: BP 124/70; PULSE 80; TEMP 97.6; BMI 28.1
[2018-10-28] MEDS ORDERED: NALOXONE HCL 0.4 MG/ML VIAL IVPUSH ONE (01:32)
--- NOTE | 2018-10-28 01:39 | PDOC ---
History of Present Illness - General Chief Complaint: Asthma Stated Complaint: SHORTNESS OF BREATH Time Seen by Provider: 10/28/18 01:18 - History of Present Illness Initial Comments: 10/28/18 01:32 47 yo M with h/o asthma, heroin abuse who p/w SOB. Patient reports episode of Pedro and wheezing, when ambulating home from employer, [employer]. States that he was walking two blocks when he suddenly felt "airway," closing. Reports similar to past asthma exacerbations. Recently discharged from [facility] (10/25/18) following asthma inpt. Patient on Prednisone taper. Has been taking duoneb daily but per patient "left albuterol at home. " EMS provided with duoneb x 2, and Decadron en route. Patient reports improvement in symptoms following medication. No other complaints. Patient denies EDWARD, vision change, palpitations, cough, wheezing, orthopena, PND , leg swelling/pain, N/V, F,C, CP, urinary complaints, hematuria, BPR, abdominal pain, diarrhea, constipation, lightheadedness, weakness, sensory changes. PMHx: as noted above ROS: as noted SHx: Denies Etoh, IVDA, tobacco use Allergies: NKDA Past History - Past Medical History Allergies/Adverse Reactions: Allergies Allergy/AdvReac Type Severity Reaction Status Date / Time No Known Allergies Allergy Verified 10/28/18 01:04 Home Medications: Ambulatory Orders Albuterol Sulfate Inhaler - [Ventolin HFA Inhaler -] 1 - 2 inh PO QID PRN #1 inhaler 05/23/18 Albuterol 0.083% Nebulizer Radha [Ventolin 0.083% Nebulizer Soln -] 1 neb NEB Q4H PRN #30 vial 09/21/18 Clonidine HCl [Catapres] 0.2 mg PO BID 10/20/18 Budesonide/Formeterol Fumarate [SYMBICORT 80/4.5mcg -] 1 inh PO BID #1 inhaler 10/25/18 Montelukast Na [Singulair -] 10 mg PO HS #30 tablet 10/25/18 Prednisone 10 mg PO DAILY #30 tab.ds.pk 10/25/18 cloNIDine HCL [Catapres -] 0.1 mg PO TID #30 tablet 10/25/18 Anemia: No Asthma: Yes (on alberol inhaler and symbicort) Cancer: No Cardiac Disorders: No CVA: No COPD: Yes CHF: No DVT: No Dementia: No Diabetes: No GI Disorders: No Disorders: No HTN: Yes Hypercholesterolemia: No Kidney Stones: No Liver Disease: No Seizures: No Thyroid Disease: No - Surgical History Abdominal Surgery: No Appendectomy: No Cardiac Surgery: No Cholecystectomy: No Lung Surgery: No Neurologic Surgery: No Orthopedic Surgery: No - Reproductive History Testicular Surgery: No - Immunization History Td Vaccination: Yes Immunization Up to Date: Yes - Suicide/Smoking/Psychosocial Hx Smoking Status: Yes Smoking History: Former smoker Years of Tobacco Use: 40 Have you smoked in the past 12 months: No Number of Cigarettes Smoked Daily: 2 If you are a former smoker, when did you quit?: 2017 Cigars Per Day: 0 Information on smoking cessation initiated: No 'Breaking Loose' booklet given: 09/16/18 Hx Alcohol Use: Yes Drug/Substance Use Hx: Yes (heroin) Substance Use Type: Alcohol, Heroin Hx Substance Use Treatment: Yes (07/09/18 to 07/10/18 not completed) Review of Systems - Review of Systems Comments:: 10/28/18 01:41 GENERAL/CONSTITUTIONAL: No fever or chills. No weakness. HEAD, EYES, EARS, NOSE AND THROAT: No change in vision. No ear pain or discharge. No sore throat. CARDIOVASCULAR: + SOB. No chest pain. RESPIRATORY: No cough, wheezing, or hemoptysis. GASTROINTESTINAL: No nausea, vomiting, diarrhea or constipation. GENITOURINARY: No dysuria, frequency, or change in urination. MUSCULOSKELETAL: No joint or muscle swelling or pain. No neck or back pain. SKIN: No rash NEUROLOGIC: No headache, vertigo, loss of consciousness, or change in strength/ sensation. ENDOCRINE: No increased thirst. No abnormal weight change HEMATOLOGIC/LYMPHATIC: No anemia, easy bleeding, or history of blood clots. ALLERGIC/IMMUNOLOGIC: No hives or skin allergy. *Physical Exam - Vital Signs Last Vital Signs Temp Pulse Resp BP Pulse Ox 97.6 F 80 19 124/70 94 L 10/28/18 01:16 10/28/18 01:16 10/28/18 01:16 10/28/18 01:16 10/28/18 01:16 - Physical Exam Comments: 10/28/18 01:41 GENERAL: Awake, alert, and fully oriented, in no acute distress HEAD: No signs of trauma, normocephalic, atraumatic EYES: PERRLA, EOMI, sclera anicteric, conjunctiva clear ENT: Auricles normal inspection, hearing grossly normal, nares patent, oropharynx clear without exudates. Moist mucosa NECK: Normal ROM, supple, no lymphadenopathy, JVD, or masses LUNGS: No distress, speaks full sentences, clear to auscultation bilaterally HEART: Regular rate and rhythm, normal S1 and S2, no murmurs, rubs or gallops, peripheral pulses normal and equal bilaterally. ABDOMEN: Soft, nontender, normoactive bowel sounds. No guarding, no rebound. No masses EXTREMITIES : Normal inspection, Normal range of motion, no edema. No clubbing or cyanosis. NEUROLOGICAL: Cranial nerves II through XII grossly intact. Normal speech, normal gait, no focal sensorimotor deficits SKIN: Warm, Dry, normal turgor, no rashes or lesions noted Medical Decision Making - Medical Decision Making 10/28/18 01:39 47 yo M with h/o asthma, heroin abuse who p/w SOB. Vitals wnl, AF, A&OX3. Physical exam unremarkable. Likely acute asthma exacerbation vs. COPD, CHF, URI. Patient asymptomatic at bedside. Will reassess. ED Course: Patient discharged and advised to f/u PMD and Breakfast Manager 10/28/18 02:00 Pt. refused to sign discharge paperwork Provided clear instructions on f/u with Pulm and PMD *DC/Admit/Observation/Transfer Diagnosis at time of Disposition: Asthma attack Qualifiers: Asthma severity: mild Asthma persistence: unspecified Qualified Code(s): J45.901 - Unspecified asthma with (acute) exacerbation - Discharge Dispostion Disposition: HOME Condition at time of disposition: Stable Decision to Admit order: No - Referrals Referrals: Fletcher Rdz MD, MD [Staff Physician] - - Patient Instructions Printed Discharge Instructions: Asthma -- Adult Additional Instructions: Please return to the emergency department with any new or worsening symptoms or concerns. Please follow up with your primary care physician within 72 hours. Continue to take Prednisone taper, and duoneb therapy as prescribed. - Post Discharge Activity
[2018-10-28] MEDS ORDERED: NALOXONE HCL 0.4 MG/ML VIAL ONE (01:44)
== END 2018-10-28 02:09 | disposition home or self-care (01) ==
LOC: JER 00:58
PROC: 3E033GC Introduction of Other Therapeutic Substance into Peripheral Vein, Percutaneous Approach (ICD-10-PCS; principal; 2018-10-28)
DX: J45.901 Unspecified asthma with (acute) exacerbation (principal); J44.9 Chronic obstructive pulmonary disease, unspecified; I10 Essential (primary) hypertension; F11.10 Opioid abuse, uncomplicated
CPT/HCPCS: 96374; 99281-25

== ENCOUNTER 2018-11-18 11:53 | Inpatient (IN) | payer OTHER ==
[2018-11-18 13:28] VITALS: BMI 28.6
--- NOTE | 2018-11-18 14:44 | HP ---
COWS - Scale Resting Pulse: 1= [place] 81-100 Sweatin= Chills/Flushing Restless Observation: 1= Difficult to Sit Still Pupil Size: 1= Pupils >than Normal Bone or Joint Aches: 1= Mild Discomfort Runny Nose/ Eye Tearin= Nasal Congestion GI Upset > 30mins: 1= Stomach Cramp Tremor Observation: 2= Slight Tremor Visible Yawning Observation: 1= 1-2x During Session Anxiety or Irritability: 1=Feels Anxious/Irritable Goose Flesh Skin: 3=Piloerection COWS Score: 14 CIWA Score Nausea/Vomitin-Mild Nausea/No Vomiting Muscle Tremors: 3 Anxiety: 3 Agitation: 2 Paroxysmal Sweats: 2 Orientation: 0-Oriented Tacttile Disturbances: 0-None Auditory Disturbances: 0-None Visual Disturbances: 0-None Headache: 1-Very Mild CIWA-Ar Total Score: 12 - Admission Criteria [facility]ASAS Guidelines: Admission for Medically Managed Detox: Requires at least one of the followin. CIWA greater than 12 2. Seizures within the past 24 hours 3. Delirium tremens within the past 24 hours 4. Hallucinations within the past 24 hours 5. Acute intervention needed for co occurring medical disorder 6. Acute intervention needed for co occurring psychiatric disorder 7. Severe withdrawal that cannot be handled at a lower level of care (continued vomiting, continued diarrhea, abnormal vital signs) requiring intravenous medication and/or fluids 8. Patient presents the following: CIWA greater than 12 Admission Criteria Met: Admission criteria met Admission ROS [facility] Chief Complaint: here for alcohol and opioid detox Allergies/Adverse Reactions: Allergies Allergy/AdvReac Type Severity Reaction Status Date / Time No Known Allergies Allergy Verified 10/28/18 01:04 History of Present Illness: 47 years old with h/o asthma, multiple ER admissions for exacerbation, last detox admission 09/2018 for heroin and alcohol use. also uses xanax. Never worked , lives with mother. no smoking alcohol- 10 beers/day, last drink last night, no h/o seizures/DT's heroin 10-12 bags/day, sniffing, last OD 1 month ago seen at [facility], does not have a narcan kit Denies marijuana use Xanax- 3-4 bars, 1mg Cocaine - occ use $20/day DUR- no recent meds MARIEL- neg, Utox- opioids, carlos, and BZO Exam Limitations: No Limitations - Ebola screening Have you traveled outside of the country in the last 21 days: No Have you had contact with anyone from an Ebola affected area: No Do you have a fever: No - Review of Systems Constitutional: No Symptoms Reported EENT: reports: No Symptoms Reported Respiratory: reports: No Symptoms reported Cardiac: reports: No Symptoms Reported GI: reports: No Symptoms Reported : reports: No Symptoms Reported Musculoskeletal: reports: No Symptoms Reported Integumentary: reports: No Symptoms Reported Neuro: reports: No Symptoms reported Endocrine: reports: No Symptoms Reported Hematology: reports: No Symptoms Reported Psychiatric: reports: No Sypmtoms Reported Other Systems: Reviewed and Negative Patient History - Patient Medical History Hx Anemia: No Hx Asthma: Yes (on alberol inhaler and symbicort) Hx Chronic Obstructive Pulmonary Disease (COPD): Yes Hx Cancer: No Hx Cardiac Disorders: No Hx Congestive Heart Failure: No Hx Hypertension: Yes Hx Hypercholesterolemia: No Hx Pacemaker: No HX Cerebrovascular Accident: No Hx Seizures: No Hx Dementia: No Hx Diabetes: No Hx Gastrointestinal Disorders: No Hx Liver Disease: No Hx Genitourinary Disorders: No Hx Sexually Transmitted Disorders: No Hx Renal Disease (ESRD): No Hx Thyroid Disease: No Hx Human Immunodeficiency Virus (HIV): No (last 06/04 negative) Hx Hepatitis C: No Hx Depression: No Hx Suicide Attempt: No Hx Bipolar Disorder: No Hx Schizophrenia: No - Patient Surgical History Past Surgical History: No Hx Neurologic Surgery: No Hx Cataract Extraction: No Hx Cardiac Surgery: No Hx Lung Surgery: No Hx Breast Surgery: No Hx Breast Biopsy: No Hx Abdominal Surgery: No Hx Appendectomy: No Hx Cholecystectomy: No Hx Genitourinary Surgery: No Hx Section: No Hx Orthopedic Surgery: No Hx Hysterectomy: No Anesthesia Reaction: No - PPD History Date: 09/18/18 Results: 0 mm - Smoking Cessation Smoking history: Former smoker Have you smoked in the past 12 months: No Aproximately how many cigarettes per day: 2 If you are a former smoker, when did you quit?: 2017 Cigars Per Day: 0 Hx Chewing Tobacco Use: No Initiated information on smoking cessation: No 'Breaking Loose' booklet given: 11/18/18 - Substance & Tx. History Hx Alcohol Use: Yes Hx Substance Use: Yes Substance Use Type: Alcohol, Cocaine, Heroin, Marijuana - Substances abused Alcohol Other (specify): BEERS mORE tHAN uSUAL Substance route: Oral Frequency: Daily Amount used: 15 BEERS/DAY Age of first use: 17 Date of last use: 11/17/18 Heroin Substance route: Inhalation Frequency: Daily Amount used: 8-10 BAGS/DAY Age of first use: 44 Date of last use: 11/18/18 Marijuana/Hashish Substance route: Smoking Frequency: 1-3 times last 30 days Amount used: 1 joint Age of first use: 17 Date of last use: 09/11/18 Family Disease History - Family Disease History Family Disease History: Diabetes: Mother, CA: Father (.) Admission Physical Exam S - Vital Signs Vital Signs: Vital Signs - 24 hr 11/18/18 13:10 Temperature 97.5 F L Pulse Rate 84 Respiratory 20 Rate Blood Pressure 133/84 - Physical General Appearance: Yes: Mild Distress HEENTM: Yes: Within Normal Limits, Normal Voice, MAGDIEL, Pharynx Normal Respiratory: Yes: Within Normal Limits, Wheezing Neck: Yes: Within Normal Limits Cardiology: Yes: Within Normal Limits, Regular Rate Abdominal: Yes: Within Normal Limits, Normal Bowel Sounds Genitourinary: Yes: Within Normal Limits Back: Yes: Within Normal Limits Musculoskeletal: Yes: Within Normal Limits, Gait Steady Extremities: Yes: Other (bunny lower leg 1+ pitting edema) Neurological: Yes: Within Normal Limits, agile project manager II-XII NML intact, Fully Oriented Integumentary: Yes: Within Normal Limits, Normal Color Lymphatic: Yes: Within Normal Limits - Diagnostic (1) Acute exacerbation of chronic obstructive pulmonary disease (COPD) Current Visit: No Status: Acute (2) Drug-induced mood disorder Current Visit: No Status: Acute (3) Sedative, hypnotic or anxiolytic dependence, uncomplicated Current Visit: No Status: Acute (4) Asthma Current Visit: No Status: Chronic Qualifiers: Asthma severity: unspecified severity Asthma persistence: unspecified Asthma complication type: uncomplicated Qualified Code(s): J45.909 - Unspecified asthma, uncomplicated (5) Cocaine dependence, uncomplicated Current Visit: No Status: Chronic (6) Opioid dependence with withdrawal Current Visit: No Status: Chronic Breathalyzer - Breathalyzer Breathalyzer: 0 Urine Drug Screen - Test Device Lot number: [id number] Expiration date: 08/13/20 - Control Is test valid?: Yes - Results Drug screen NEGATIVE: No Urine drug screen results: THC-Marijuana, CARLOS-Cocaine, FEN-Fentanyl, MOP-Opiates , OXY-Oxycodone, BZO-Benzodiazepines Inpatient Rehab Admission - Rehab Decision to Admit Inpatient rehab admission?: No
[2018-11-18] MEDS ORDERED: MAGNESIUM CITRATE 300 ML BOTTLE PO PRN (14:50)
[2018-11-18] MEDS ORDERED: ONDANSETRON *ODT* 4 MG TABLET SL PRN (14:50)
[2018-11-18] MEDS ORDERED: MAG HYDROX/AL HYDROX/SIMETH 30 ML UNIT-DOSE CUP PO PRN (14:50)
[2018-11-18] MEDS ORDERED: BISMUTH SUBSALICYLATE 524 MG/30 ML UD PO PRN (14:50)
[2018-11-18] MEDS ORDERED: ACETAMINOPHEN 325 MG TABLET (FP) PO PRN ×2 (14:50)
[2018-11-18] MEDS ORDERED: MENTHOL/PHENOL 1 EACH UD MM PRN (14:50)
[2018-11-18] MEDS ORDERED: METHOCARBAMOL 500 MG TABLET PO PRN (14:50)
[2018-11-18] MEDS ORDERED: MAGNESIUM HYDROX 2400MG/30ML ORAL SUSPENSION 30 ML CUP PO PRN (14:50)
[2018-11-18] MEDS ORDERED: cloNIDine HCL 0.1 MG TABLET PO PRN (14:50)
[2018-11-18] MEDS ORDERED: METHADONE HCL 10 MG TABLET (FOR DETOX USE ONLY) PO ONE (14:50)
[2018-11-18] MEDS ORDERED: IBUPROFEN 400 MG TABLET (FP) PO PRN (14:50)
[2018-11-18] MEDS ORDERED: NALOXONE HCL 0.4 MG/ML VIAL IM PRN (14:50)
[2018-11-18] MEDS ORDERED: hydrOXYzine PAMOATE 25 MG CAPSULE (FP) PO PRN (14:50)
[2018-11-18] MEDS ORDERED: MELATONIN 5 MG TABLETS PO PRN (14:50)
[2018-11-18] MEDS ORDERED: traZODone HCL 50 MG TABLET (FP) PO PRN (14:50)
[2018-11-18] MEDS ORDERED: clonazePAM 0.5 MG TABLET PO PRN (14:50)
[2018-11-18] MEDS ORDERED: ALBUTEROL SO4 8 GM HFA INHALER IH PRN (14:52)
[2018-11-18] MEDS: ALBUTEROL SO4 0.083% IH SOL 2.5 MG/3 ML VIAL.NEB. NEB PRN (16:08)
[2018-11-18] MEDS ORDERED: diazePAM 5 MG TABLET PO ONE (16:30)
[2018-11-18] MEDS: BUDESONIDE/FORMETEROL FUMARATE 80/4.5 mcg INHALER IH SCH (22:57)
[2018-11-18] MEDS: MONTELUKAST NA 10 MG TABLET PO SCH (22:57)
[2018-11-18] MEDS: diazePAM 5 MG TABLET PO SCH (22:59)
[2018-11-18] MEDS: THIAMINE HCL 100 MG TABLET (FP) PO SCH (23:04)
[2018-11-19] MEDS: ALBUTEROL SO4 0.083% IH SOL 2.5 MG/3 ML VIAL.NEB. NEB PRN (01:09)
[2018-11-19] MEDS ORDERED: ALBUTEROL SO4 2.5/IPRATROPIUM 0.5 INH SOL 3 ML VIAL.NEB. NEB PRN (01:19)
[2018-11-19] MEDS ORDERED: methylPREDNISolone NA SUCC 40 MG/1 ML VIAL IVPUSH ONE (01:20)
[2018-11-19] MEDS ORDERED: predniSONE 20 MG TABLET (UD) PO ONE (01:28)
[2018-11-19] MEDS ORDERED: ALBUTEROL SO4 2.5/IPRATROPIUM 0.5 INH SOL 3 ML VIAL.NEB. NEB ONE (01:35)
[2018-11-19] MEDS: diazePAM 5 MG TABLET PO SCH ×3 (06:04→22:35)
[2018-11-19] MEDS: ALBUTEROL SO4 2.5/IPRATROPIUM 0.5 INH SOL 3 ML VIAL.NEB. NEB SCH ×4 (07:26→18:34)
[2018-11-19] MEDS ORDERED: METHADONE HCL 5 MG TABLET (FOR DETOX USE ONLY) ONE ×2 (08:37→11:02)
[2018-11-19] MEDS ORDERED: METHADONE HCL 10 MG TABLET (FOR DETOX USE ONLY) ONE ×2 (08:37→11:02)
[2018-11-19] MEDS ORDERED: predniSONE 20 MG TABLET (UD) PO SCH (10:00)
[2018-11-19] MEDS ORDERED: METHADONE (DETOX) 20 MG, METHADONE (DETOX) 5 MG PO ONE (10:00)
[2018-11-19] MEDS: BUDESONIDE/FORMETEROL FUMARATE 80/4.5 mcg INHALER IH SCH (11:03)
[2018-11-19] MEDS: PRENATAL VITAMINS W/ FOLIC ACID TABLET (FP) PO SCH (11:03)
[2018-11-19 11:04] LABS: HEMATOCRIT 35.6 % (35.4-49); HEMOGLOBIN 11.8 GM/dL (11.7-16.9); MCH 26.8 pg (25.7-33.7); MEAN CELL VOLUME 81.2 fl (80-96); PLATELET COUNT 272 K/MM3 (134-434); RBC 4.39 M/mm3 (4.00-5.60)
[2018-11-19 11:10] LABS: ALBUMIN 3.2 g/dl (3.4-5.0); BILIRUBIN,TOTAL 0.4 mg/dL (0.2-1); BLOOD UREA NITROGEN 10.5 mg/dL (7-18); CALCIUM 8.6 mg/dL (8.5-10.1); CREATININE 0.8 mg/dL (0.55-1.3); POTASSIUM 3.9 mmol/L (3.5-5.1); TOT PROT 6.1 g/dl (6.4-8.2)
--- NOTE | 2018-11-19 11:21 | PN ---
S CIWA - CIWA Score Nausea/Vomitin-Mild Nausea/No Vomiting Muscle Tremors: 4-Moderate,w/Arms Extend Anxiety: 2 Agitation: 3 Paroxysmal Sweats: 1-Minimal Palms Moist Orientation: 0-Oriented Tacttile Disturbances: 0-None Auditory Disturbances: 0-None Visual Disturbances: 0-None Headache: 0-None Present CIWA-Ar Total Score: 11 [facility] COWS - Scale Resting Pulse: 1= [place] 81-100 Sweatin= Chills/Flushing Restless Observation: 0= Sits Still Pupil Size: 0= Normal to Room Light Bone or Joint Aches: 1= Mild Discomfort Runny Nose/ Eye Tearin= Nasal Congestion GI Upset > 30mins: 1= Stomach Cramp Tremor Observation of Outstretched Hands: 2= Slight Tremor Visible Yawning Observation: 2= >3x During Session Anxiety or Irritability: 2=Irritable/Anxious Goose Flesh Skin: 0=Smooth Skin COWS Score: 11 [facility] Progress Note (SOAP) Subjective: long history of asthma with acute episode "days" ago treated with singular prednison ventolin aspiriva and gabapentin natanael oconnell with valium and methadone detox regimen strong recommend follow up with field court researcher for asthma control Objective: 11/19/18 11:19 Vital Signs Temperature 97.1 F L 11/19/18 09:19 Pulse Rate 89 11/19/18 09:19 Respiratory Rate 18 11/19/18 09:19 Blood Pressure 118/75 11/19/18 09:19 O2 Sat by Pulse Oximetry (%) 96 11/18/18 16:38 Laboratory Last Values WBC 6.0 K/mm3 (4.0-10.0) 11/19/18 07:00 RBC 4.39 M/mm3 (4.00-5.60) 11/19/18 07:00 Hgb 11.8 GM/dL (11.7-16.9) 11/19/18 07:00 Hct 35.6 % (35.4-49) 11/19/18 07:00 MCV 81.2 fl (80-96) 11/19/18 07:00 MCH 26.8 pg (25.7-33.7) 11/19/18 07:00 MCHC 33.0 g/dl (32.0-35.9) 11/19/18 07:00 RDW 15.0 % (11.9-15.9) 11/19/18 07:00 Plt Count 272 K/MM3 (134-434) D 11/19/18 07:00 MPV 8.0 fl (7.5-11.1) 11/19/18 07:00 Sodium 141 mmol/L (136-145) 11/19/18 07:00 Potassium 3.9 mmol/L (3.5-5.1) 11/19/18 07:00 Chloride 106 mmol/L (98-107) 11/19/18 07:00 Carbon Dioxide 27 mmol/L (21-32) 11/19/18 07:00 Anion Gap 7 MMOL/L (8-16) L 11/19/18 07:00 BUN 10.5 mg/dL (7-18) 11/19/18 07:00 Creatinine 0.8 mg/dL (0.55-1.3) 11/19/18 07:00 Est GFR (CKD-EPI)AfAm 124.16 11/19/18 07:00 Est GFR (CKD-EPI)NonAf 107.13 11/19/18 07:00 Random Glucose 192 mg/dL (74-106) H 11/19/18 07:00 Calcium 8.6 mg/dL (8.5-10.1) 11/19/18 07:00 Total Bilirubin 0.4 mg/dL (0.2-1) 11/19/18 07:00 AST 19 U/L (15-37) 11/19/18 07:00 ALT 19 U/L (13-61) 11/19/18 07:00 Alkaline Phosphatase 91 U/L (45-117) 11/19/18 07:00 Total Protein 6.1 g/dl (6.4-8.2) L 11/19/18 07:00 Albumin 3.2 g/dl (3.4-5.0) L 11/19/18 07:00 lab noted Assessment: 11/19/18 11:20 alcohol and opiate withdrawal sx discuss risks of alcohol misuse asthma Plan: continue alcohol and opiate detox begin prednison 10 mg po daily with aspiriva inhaller
[2018-11-19] MEDS: diazePAM 5 MG TABLET PO PRN (16:38)
[2018-11-19] MEDS: MONTELUKAST NA 10 MG TABLET PO SCH (22:35)
[2018-11-19] MEDS: THIAMINE HCL 100 MG TABLET (FP) PO SCH (22:35)
[2018-11-20] MEDS: diazePAM 5 MG TABLET PO SCH ×2 (06:17→19:00)
[2018-11-20] MEDS ORDERED: METHADONE HCL 10 MG TABLET (FOR DETOX USE ONLY) PO ONE (10:00)
[2018-11-20] MEDS: predniSONE 10 MG TABLET (UD) PO SCH (10:18)
[2018-11-20] MEDS: diazePAM 5 MG TABLET PO PRN ×2 (10:18→16:44)
[2018-11-20] MEDS: PRENATAL VITAMINS W/ FOLIC ACID TABLET (FP) PO SCH (10:18)
[2018-11-20] MEDS: TIOTROPIUM BROMIDE 2.5 MCG (SPIRIVA) RESPIMAT INHALER IH SCH (12:37)
--- NOTE | 2018-11-20 15:22 | PN ---
[facility] CIWA - CIWA Score Nausea/Vomitin-No Nausea/No Vomiting Muscle Tremors: 3 Anxiety: 2 Agitation: 2 Paroxysmal Sweats: 1-Minimal Palms Moist Orientation: 0-Oriented Tacttile Disturbances: 0-None Auditory Disturbances: 0-None Visual Disturbances: 0-None Headache: 0-None Present CIWA-Ar Total Score: 8 BHS COWS - Scale Resting Pulse: 1= [place] 81-100 Sweatin= Chills/Flushing Restless Observation: 0= Sits Still Pupil Size: 0= Normal to Room Light Bone or Joint Aches: 1= Mild Discomfort Runny Nose/ Eye Tearin= Nasal Congestion GI Upset > 30mins: 0= None Tremor Observation of Outstretched Hands: 2= Slight Tremor Visible Yawning Observation: 1= 1-2x During Session Anxiety or Irritability: 1=Feels Anxious/Irritable Goose Flesh Skin: 0=Smooth Skin COWS Score: [address] [facility] Progress Note (SOAP) Subjective: doing well with valium and opiate detox regimen less tremor mild body ache breathing ease and even Objective: 11/20/18 15:21 Vital Signs Temperature 97.0 F L 11/20/18 14:18 Pulse Rate 82 11/20/18 14:18 Respiratory Rate 18 11/20/18 14:18 Blood Pressure 120/83 11/20/18 14:18 O2 Sat by Pulse Oximetry (%) 96 11/18/18 16:38 Laboratory Last Values WBC 6.0 K/mm3 (4.0-10.0) 11/19/18 07:00 RBC 4.39 M/mm3 (4.00-5.60) 11/19/18 07:00 Hgb 11.8 GM/dL (11.7-16.9) 11/19/18 07:00 Hct 35.6 % (35.4-49) 11/19/18 07:00 MCV 81.2 fl (80-96) 11/19/18 07:00 MCH 26.8 pg (25.7-33.7) 11/19/18 07:00 MCHC 33.0 g/dl (32.0-35.9) 11/19/18 07:00 RDW 15.0 % (11.9-15.9) 11/19/18 07:00 Plt Count 272 K/MM3 (134-434) D 11/19/18 07:00 MPV 8.0 fl (7.5-11.1) 11/19/18 07:00 Sodium 141 mmol/L (136-145) 11/19/18 07:00 Potassium 3.9 mmol/L (3.5-5.1) 11/19/18 07:00 Chloride 106 mmol/L (98-107) 11/19/18 07:00 Carbon Dioxide 27 mmol/L (21-32) 11/19/18 07:00 Anion Gap 7 MMOL/L (8-16) L 11/19/18 07:00 BUN 10.5 mg/dL (7-18) 11/19/18 07:00 Creatinine 0.8 mg/dL (0.55-1.3) 11/19/18 07:00 Est GFR (CKD-EPI)AfAm 124.16 11/19/18 07:00 Est GFR (CKD-EPI)NonAf 107.13 11/19/18 07:00 Random Glucose 192 mg/dL (74-106) H 11/19/18 07:00 Calcium 8.6 mg/dL (8.5-10.1) 11/19/18 07:00 Total Bilirubin 0.4 mg/dL (0.2-1) 11/19/18 07:00 AST 19 U/L (15-37) 11/19/18 07:00 ALT 19 U/L (13-61) 11/19/18 07:00 Alkaline Phosphatase 91 U/L (45-117) 11/19/18 07:00 Total Protein 6.1 g/dl (6.4-8.2) L 11/19/18 07:00 Albumin 3.2 g/dl (3.4-5.0) L 11/19/18 07:00 RPR Titer Nonreactive (NONREACTIVE) 11/19/18 07:00 lab noted Assessment: 11/20/18 15:22 alcohol and opiate withdrawal Plan: continue alcohol and opiate detox
[2018-11-20] MEDS: MONTELUKAST NA 10 MG TABLET PO SCH (20:59)
[2018-11-20] MEDS: THIAMINE HCL 100 MG TABLET (FP) PO SCH (20:59)
[2018-11-21] MEDS ORDERED: diazePAM 5 MG TABLET PO ONE (06:00)
[2018-11-21 09:14] VITALS: BP 125/93; PULSE 88; TEMP 99.3
[2018-11-21] MEDS ORDERED: METHADONE HCL 5 MG TABLET (FOR DETOX USE ONLY) ONE (09:16)
[2018-11-21] MEDS ORDERED: METHADONE HCL 10 MG TABLET (FOR DETOX USE ONLY) ONE (09:16)
[2018-11-21] MEDS ORDERED: METHADONE (DETOX) 10 MG, METHADONE (DETOX) 5 MG PO ONE (10:00)
[2018-11-21] MEDS: TIOTROPIUM BROMIDE 2.5 MCG (SPIRIVA) RESPIMAT INHALER IH SCH (10:14)
[2018-11-21] MEDS: predniSONE 10 MG TABLET (UD) PO SCH (10:15)
[2018-11-21] MEDS: PRENATAL VITAMINS W/ FOLIC ACID TABLET (FP) PO SCH (10:15)
--- NOTE | 2018-11-21 12:56 | PN ---
[facility] CIWA - CIWA Score Nausea/Vomitin-No Nausea/No Vomiting Muscle Tremors: 3 Anxiety: 3 Agitation: 1-Slight > Activity Paroxysmal Sweats: No Perspiration Orientation: 0-Oriented Tacttile Disturbances: 2-Mild Itch/Numbness/Burn Auditory Disturbances: 0-None Visual Disturbances: 0-None Headache: 0-None Present CIWA-Ar Total Score: 9 BHS COWS - Scale Resting Pulse: 1= [place] 81-100 Sweatin= No chills or Flushing Restless Observation: 1= Difficult to Sit Still Pupil Size: 0= Normal to Room Light Bone or Joint Aches: 2= Severe Diffuse Aches Runny Nose/ Eye Tearin= None GI Upset > 30mins: 0= None Tremor Observation of Outstretched Hands: 0= None Yawning Observation: 1= 1-2x During Session Anxiety or Irritability: 2=Irritable/Anxious Goose Flesh Skin: 3=Piloerection COWS Score: 10 S Progress Note (SOAP) Subjective: Anxious, Body Aches. Objective: PATIENT A & O X 3. IN NO ACUTE DISTRESS. 11/21/18 12:51 Vital Signs Temperature 99.3 F 11/21/18 09:13 Pulse Rate 88 11/21/18 09:13 Respiratory Rate 18 11/21/18 09:13 Blood Pressure 125/93 11/21/18 09:13 O2 Sat by Pulse Oximetry (%) 96 11/18/18 16:38 Laboratory Tests 11/19/18 11/19/18 11/19/18 07:00 07:00 07:00 WBC 6.0 RBC 4.39 Hgb 11.8 Hct 35.6 MCV 81.2 MCH 26.8 MCHC 33.0 RDW 15.0 Plt Count 272 D MPV 8.0 Sodium 141 Potassium 3.9 Chloride 106 Carbon Dioxide 27 Anion Gap 7 L BUN 10.5 Creatinine 0.8 Est GFR (CKD-EPI)AfAm 124.16 Est GFR (CKD-EPI)NonAf 107.13 Random Glucose 192 H Calcium 8.6 Total Bilirubin 0.4 AST 19 ALT 19 Alkaline Phosphatase 91 Total Protein 6.1 L Albumin 3.2 L RPR Titer Nonreactive LABS NOTED. Assessment: 11/21/18 12:52 WITHDRAWAL SYMPTOMS. HYPERGLYCEMIA. 11/21/18 12:56 Plan: CONTINUE DETOX. INCREASE DAILY PO WATER INTAKE. FASTING GLUCOSE LEVEL ORDERED FOR TOMORROW AM DUE TO ELEVATED ADMISSION RANDOM GLUCOSE LEVEL
--- NOTE | 2018-11-21 13:04 | DS ---
[facility] Detox Discharge Summary Admission Date: 11/18/18 Discharge Date: 11/21/18 - History Present History: Cocaine Dependence, Opioid Dependence Additional Comments: DESPITE EFFORTS BY BIT SHARPENER AND BY NURSING STAFF TO ADDRESS PATIENT'S MEDICAL NEEDS / CONCERNS, PATIENT REPORTS THAT HE DOES NOT WISH TO REMAIN TO COMPLETE DETOX REGIMEN. RISKS OF LEAVING DETOX UNIT AGAINST MEDICAL ADVICE AND PRIOR TO COMPLETION OF DETOX REGIMEN EXPLAINED TO PATIENT. PATIENT ADVISED TO GO IMMEDIATELY TO NEAREST ER SHOULD ANY INTOLERABLE WITHDRAWAL / DETOX SYMPTOMS DEVELOP AT ANY TIME. PATIENT VERBALIZED UNDERSTANDING OF ALL INFORMATION / RECOMMENDATIONS PRESENTED TO HIM PRIOR TO DEPARTURE FROM DETOX UNIT. PATIENT DECLINED OFFER OF MEDICATION PRESCRIPTION FOR HOME MEDICATION AT TIME OF DISCHARGE FROM DETOX, NOTING THAT HE CURRENTLY HAS ADEQUATE SUPPLIES OF ALL PRESCRIBED HOME MEDICATIONS AT HOME. PATIENT LEFT DETOX UNIT IN STABLE MEDICAL CONDITION. Pertinent Past History: HTN, Asthma, C.O.P.D. - Physical Exam Results Vital Signs: Vital Signs Temperature 99.3 F 11/21/18 09:13 Pulse Rate 88 11/21/18 09:13 Respiratory Rate 18 11/21/18 09:13 Blood Pressure 125/93 11/21/18 09:13 O2 Sat by Pulse Oximetry (%) 96 11/18/18 16:38 Pertinent Admission Physical Exam Findings: WITHDRAWAL SYMPTOMS. Laboratory Tests 11/19/18 11/19/18 11/19/18 07:00 07:00 07:00 WBC 6.0 RBC 4.39 Hgb 11.8 Hct 35.6 MCV 81.2 MCH 26.8 MCHC 33.0 RDW 15.0 Plt Count 272 D MPV 8.0 Sodium 141 Potassium 3.9 Chloride 106 Carbon Dioxide 27 Anion Gap 7 L BUN 10.5 Creatinine 0.8 Est GFR (CKD-EPI)AfAm 124.16 Est GFR (CKD-EPI)NonAf 107.13 Random Glucose 192 H Calcium 8.6 Total Bilirubin 0.4 AST 19 ALT 19 Alkaline Phosphatase 91 Total Protein 6.1 L Albumin 3.2 L RPR Titer Nonreactive LABS NOTED. - Medication Discharge Medications: Ambulatory Orders Albuterol Sulfate Inhaler - [Ventolin HFA Inhaler -] 1 - 2 inh PO QID PRN #1 inhaler 05/23/18 Albuterol 0.083% Nebulizer Radha [Ventolin 0.083% Nebulizer Soln -] 1 neb NEB Q4H PRN #30 vial 09/21/18 Budesonide/Formeterol Fumarate [SYMBICORT 80/4.5mcg -] 1 inh PO BID #1 inhaler 10/25/18 Montelukast Na [Singulair -] 10 mg PO HS #30 tablet 10/25/18 cloNIDine HCL [Catapres -] 0.1 mg PO TID #30 tablet 10/25/18 Quetiapine Fumarate [Seroquel -] 50 mg PO HS 11/18/18 - Diagnosis (1) Acute exacerbation of chronic obstructive pulmonary disease (COPD) Current Visit: Yes Status: Acute (2) Drug-induced mood disorder Current Visit: Yes Status: Acute (3) Sedative, hypnotic or anxiolytic dependence, uncomplicated Current Visit: Yes Status: Acute (4) Asthma Current Visit: Yes Status: Chronic Qualifiers: Asthma severity: unspecified severity Asthma persistence: unspecified Asthma complication type: uncomplicated Qualified Code(s): J45.909 - Unspecified asthma, uncomplicated (5) Cocaine dependence, uncomplicated Current Visit: Yes Status: Chronic (6) Opioid dependence with withdrawal Current Visit: Yes Status: Acute - AMA Did Patient Leave Against Medical Advice: Yes (PATIENT DID NOT WISH TO REMAIN TO COMPLETE DETOX REGIMEN.)
[2018-11-22] MEDS ORDERED: METHADONE HCL 10 MG TABLET (FOR DETOX USE ONLY) PO ONE (10:00)
[2018-11-23] MEDS ORDERED: METHADONE HCL 5 MG TABLET (FOR DETOX USE ONLY) PO ONE (06:00)
== END 2018-11-21 13:04 | disposition left against medical advice (07) | DRG 770 ==
LOC: YASAS 11:53 → Y3N 15:30
PROVIDERS: ADMIT Surgery; ATTEND Surgery
PROC: HZ2ZZZZ Detoxification Services for Substance Abuse Treatment (ICD-10-PCS; principal; 2018-11-18)
DX: F11.23 Opioid dependence with withdrawal (principal); F10.230 Alcohol dependence with withdrawal, uncomplicated; F13.230 Sedative, hypnotic or anxiolytic dependence with withdrawal, uncomplicated; F14.20 Cocaine dependence, uncomplicated; F19.24 Other psychoactive substance dependence with psychoactive substance-induced mood disorder; I10 Essential (primary) hypertension; J44.1 Chronic obstructive pulmonary disease with (acute) exacerbation; R73.9 Hyperglycemia, unspecified; Z87.891 Personal history of nicotine dependence
CPT/HCPCS: 36415; 80053; 85027; 86593; 94640

== ENCOUNTER 2018-11-26 10:41 | Inpatient (IN) | payer OTHER ==
--- NOTE | 2018-11-26 10:58 | PDOC ---
History of Present Illness - General Chief Complaint: Asthma Stated Complaint: ASTHMA Time Seen by Provider: 11/26/18 10:57 History Source: Patient Exam Limitations: No Limitations - History of Present Illness Initial Comments: 11/26/18 11:44 47M w/ pmh of HTN, asthma, COPD, chronic tobacco, chronic heroin usage BIBA for complaint of SOB + chest tightness during a morning walk. Tried albuterol inhaler x7-10 puffs with little relief. Neighbors called EMS. Denies cough. Has been using albuterol inhlaer ~4x/weekly, w/ no specific triggers noted. No sick contacts. Denies cold, allergens, night time triggers. Has had history of asthma excerbations, with last admission for IV steroids in October 2018. Last heroin usage was the morning prior to ED presentation. Last cigarette was last night Associated Symptoms: reports: shortness of breath. denies: cough, fever/chills , headaches, nausea/vomiting Past History - Travel Traveled outside of the country in the last 30 days: No Close contact w/someone who was outside of country & ill: No - Past Medical History Allergies/Adverse Reactions: Allergies Allergy/AdvReac Type Severity Reaction Status Date / Time No Known Allergies Allergy Verified 11/26/18 10:55 Home Medications: Ambulatory Orders Albuterol Sulfate Inhaler - [Ventolin HFA Inhaler -] 1 - 2 inh PO QID PRN #1 inhaler 05/23/18 Albuterol 0.083% Nebulizer Radha [Ventolin 0.083% Nebulizer Soln -] 1 neb NEB Q4H PRN #30 vial 09/21/18 Budesonide/Formeterol Fumarate [SYMBICORT 80/4.5mcg -] 1 inh PO BID #1 inhaler 10/25/18 Montelukast Na [Singulair -] 10 mg PO HS #30 tablet 10/25/18 cloNIDine HCL [Catapres -] 0.1 mg PO TID #30 tablet 10/25/18 Quetiapine Fumarate [Seroquel -] 50 mg PO HS 11/18/18 Anemia: No Asthma: Yes Cancer: No Cardiac Disorders: No CVA: No COPD: No CHF: No DVT: No Dementia: No Diabetes: No GI Disorders: No Disorders: No HTN: Yes (Tx with Clonidine) Hypercholesterolemia: No Kidney Stones: No Liver Disease: No Seizures: No Thyroid Disease: No - Surgical History Abdominal Surgery: No Appendectomy: No Cardiac Surgery: No Cholecystectomy: No Lung Surgery: No Neurologic Surgery: No Orthopedic Surgery: No - Reproductive History Testicular Surgery: No - Immunization History Td Vaccination: Yes Immunization Up to Date: Yes - Suicide/Smoking/Psychosocial Hx Smoking Status: Yes Smoking History: Former smoker Years of Tobacco Use: 40 Have you smoked in the past 12 months: Yes Number of Cigarettes Smoked Daily: 2 If you are a former smoker, when did you quit?: 2017 Cigars Per Day: 0 'Breaking Loose' booklet given: 11/18/18 Hx Alcohol Use: Yes Drug/Substance Use Hx: Yes Substance Use Type: Alcohol, Cocaine, Heroin, Marijuana Hx Substance Use Treatment: Yes Review of Systems - Review of Systems Able to Perform ROS?: Yes Is the patient limited Brazilian proficient: No Constitutional: No: Chills, Fever, Malaise HEENTM: Yes: Other (no neck pain). No: Blurred Vision, Double Vision Respiratory: Yes: Shortness of Breath. No: Cough Cardiac (ROS): Yes: Chest Tightness. No: Palpitations ABD/GI: Yes: Abdominal Distended. No: Constipated, Diarrhea, Nausea, Vomiting : No: Burning, Dysuria Musculoskeletal: No: Muscle Pain Neurological: No: Headache, Numbness, Seizure Hematologic/Lymphatic: Yes: Anemia. No: Easy Bleeding, Easy Bruising *Physical Exam - Physical Exam General Appearance: No: Apparent Distress HEENT: positive: Normal Voice. negative: Scleral Icterus (R), Scleral Icterus ( L) Neck: positive: Supple. negative: Lymphadenopathy (R), Lymphadenopathy (L) Respiratory/Chest: positive: Wheezing (inspiratory and expiratory ). negative: Chest Tender, Respiratory Distress, Accessory Muscle Use Cardiovascular: positive: Regular Rate, S1, S2. negative: Irregularly Irregular Gastrointestinal/Abdominal: positive: Soft. negative: Distended, Guarding, Rebound, Tenderness Neurologic: positive: Fully Oriented, Other (somnolent appearing) ED Treatment Course - LABORATORY CBC & Chemistry Diagram: 11/26/18 12:13 11/26/18 12:13 Medical Decision Making - Medical Decision Making 11/26/18 12:03 47M with SOB + chest tightness, received combivent and decadro 10mg IV with subjective improvement in chest tightness but exam showing continued inspir & expir wheezes - fu CBC, CMP, troponin - fu EKG - fu CXR to r/o PNA, etc - albuterol x3(q15min) 11/26/18 12:53 - sign out to Dr Jose Esparza *DC/Admit/Observation/Transfer Diagnosis at time of Disposition: Asthma exacerbation Qualifiers: Asthma severity: unspecified severity Asthma persistence: persistent Qualified Code(s): J45.901 - Unspecified asthma with (acute) exacerbation - Discharge Dispostion Disposition: AGAINST MEDICAL ADVICE Condition at time of disposition: Guarded - Referrals - Patient Instructions - Post Discharge Activity
[2018-11-26] MEDS ORDERED: methylPREDNISolone NA SUCC 125 MG/2 ML VIAL IVPB ONE (11:32)
[2018-11-26] MEDS ORDERED: methylPREDNISolone NA SUCC 125 MG/2 ML VIAL ONE (11:41)
[2018-11-26] MEDS ORDERED: ALBUTEROL SO4 0.083% IH SOL 2.5 MG/3 ML VIAL.NEB. NEB ONE (11:41)
[2018-11-26] MEDS: ALBUTEROL SO4 0.083% IH SOL 2.5 MG/3 ML VIAL.NEB. NEB SCH ×3 (12:04→13:01)
[2018-11-26 12:34] LABS: BASO % 0.6 % (0-2.0); EOS % 2.9 % (0-4.5); HEMOGLOBIN 11.3 GM/dL (11.7-16.9); LYMPH % 7.2 % (8-40); MCH 26.8 pg (25.7-33.7); MCHC 33.2 g/dl (32.0-35.9); MEAN CELL VOLUME 80.6 fl (80-96); MEAN PLT VOLUME 7.2 fl (7.5-11.1); MONO % 3.9 % (3.8-10.2); NEUT % 85.4 % (42.8-82.8); PLATELET COUNT 267 K/MM3 (134-434); RBC 4.22 M/mm3 (4.00-5.60); WHITE BLOOD COUNT 9.2 K/mm3 (4.0-10.0)
--- NOTE | 2018-11-26 12:54 | PDOC ---
*Physical Exam - Vital Signs Last Vital Signs Temp Pulse Resp BP Pulse Ox 98.7 F 79 16 133/90 100 11/26/18 10:45 11/26/18 10:45 11/26/18 10:45 11/26/18 10:45 11/26/18 10:45 - Physical Exam Comments: 11/26/18 14:23 GEN: AAOx3, easily arousable, NAD HEENT: NC/AT, EOMI, PERRLA CV: s1/s2, rrr, no mrg LUNGS: nonlabored breathing, diffuse wheezing b/l General Appearance: Yes: Appropriately Dressed. No: Apparent Distress ED Treatment Course - LABORATORY CBC & Chemistry Diagram: 11/26/18 12:13 11/26/18 12:13 - ADDITIONAL ORDERS Additional order review: 11/26/18 12:13 RBC 4.22 MCV 80.6 MCHC 33.2 RDW 15.0 MPV 7.2 L Neutrophils % 85.4 H Lymphocytes % 7.2 L D Monocytes % 3.9 Eosinophils % 2.9 D Basophils % 0.6 D - Medications Given in the ED: ED Medications Discontinued Medications Generic Name Dose Route Start Last Admin Trade Name Freq PRN Reason Stop Dose Admin Albuterol Sulfate 1 amp 11/26/18 11:45 11/26/18 12:26 Ventolin 0.083% Nebulizer Soln - NEB 11/26/18 12:16 1 amp Q15M VARSHA Administration Methylprednisolone Sodium Succinate 125 mg 11/26/18 11:32 11/26/18 12:26 Solu-Medrol - IVPB 11/26/18 11:33 125 mg ONCE ONE Administration Medical Decision Making - Medical Decision Making 11/26/18 12:[address] patient signed out from Dr[address] Cohen f/u labs, trop reassess 11/26/18 12:58 s/p 3 duonebs course wheezing b/l pt endorses he is breathing better though; stating hunger will reassess after some more time given for solumedrol 11/26/18 14:18 Case management for asthma control plan 11/26/18 16:09 Despite 6 nebs, solumedrol, and mag patient remains diffusely wheezing and now endorses increased sob will admit 11/26/18 16:[address] Diaz //admitted, medicine under Dr. Diaz *DC/Admit/Observation/Transfer Diagnosis at time of Disposition: Asthma exacerbation Qualifiers: Asthma severity: unspecified severity Asthma persistence: persistent Qualified Code(s): J45.901 - Unspecified asthma with (acute) exacerbation - Discharge Dispostion Condition at time of disposition: Guarded Decision to Admit order: Yes - Referrals Referrals: Eric Yanez MD [Primary Care Provider] - - Patient Instructions - Post Discharge Activity
--- NOTE | 2018-11-26 12:55 | EKG ---
Test Reason : Blood Pressure : / mmHG Vent. Rate : 072 BPM Atrial Rate : 072 BPM P-R Int : 168 ms QRS Dur : 084 ms QT Int : 392 ms P-R-T Axes : 036 030 040 degrees QTc Int : 429 ms NORMAL SINUS RHYTHM NORMAL ECG WHEN COMPARED WITH ECG OF 20-OCT-2018 17:56, NO SIGNIFICANT CHANGE WAS FOUND Confirmed by MD Dowling Edward ([id number]) on 11/26/2018 12:55:19 PM Referred By: Confirmed By:Ion Dowling MD
[2018-11-26 13:05] LABS: ALBUMIN 3.5 g/dl (3.4-5.0); BILIRUBIN,TOTAL 0.3 mg/dL (0.2-1); BLOOD UREA NITROGEN 21.1 mg/dL (7-18); CALCIUM 8.6 mg/dL (8.5-10.1); CREATININE 0.7 mg/dL (0.55-1.3); POTASSIUM 4.4 mmol/L (3.5-5.1); TOT PROT 6.2 g/dl (6.4-8.2)
--- NOTE | 2018-11-26 13:42 | PDOC ---
Documentation entered by Mandy Felipe SCRIBE, acting as scribe for Austin Herring MD. Austin Herring MD: This documentation has been prepared by the Destinee ortega Xhesika, SCRIBE, under my direction and personally reviewed by me in its entirety. I confirm that the documentation accurately reflects all work, treatment, procedures, and medical decision making performed by me. Attending Attestation - Resident Resident Name: Haim Cohen - ED Attending Attestation I have performed the following: I have examined & evaluated the patient, The case was reviewed & discussed with the resident, I agree w/resident's findings & plan, Exceptions are as noted - HPI HPI: 11/26/18 12:38 The patient is a 47 year old male with a significant past medical history of HTN , asthma, COPD, chronic tobacco, chronic heroin usage who presents to the ED with an asthma exacerbation since last night. Patient notes the weather changes trigger his asthma and he tried his albuterol inhaler and symbicort with mild relief of symptoms. Patient denies ever being intubated for his asthma in the past however he feels like he needs steroids for relief of symptoms. The patient denies headache and dizziness. Denies fever, chills, nausea, vomiting, diarrhea and constipation. Denies dysuria, frequency, urgency and hematuria. Allergies: NKDA - Physicial Exam PE: 11/26/18 12:38 Vitals: Triage Vital signs reviewed General Appearance: no acute distress, well nourished well developed, Head: Atraumatic, normocephalic Chest Wall: Nontender Cardiac: Regular rate and rhythm, no murmurs, no rubs, no gallops, Lungs: (+) inspiratory and expiratory wheezing. Abdomen: Soft, nondistended, normal bowel sounds, nontender to palpation Rectal: Exam deferred Extremities: Full range of motion to all extremities, no cyanosis, clubbing, or edema Skin: Warm and dry, no rashes or lesions, no petechiae Neuro: AOX3; Cranial Nerves 2-12 grossly c intact, Strength intact to all extremities, Sensation intact to all extremities, gait normal Psych: normal mood, normal affect - Critical Care Time Total Critical Care Time: 35 Critical Care Statement: The care of this patient involved high complexity decision making to prevent further life threatening deterioration of the patient 's condition and/or to evaluate & treat vital organ system(s) failure or risk of failure. - Medical Decision Making 11/26/18 16:28 The patient is a 47 year old male with a significant past medical history of HTN , asthma, COPD, chronic tobacco, chronic heroin usage who presents to the ED with an asthma exacerbation since last night. Patient notes the weather changes trigger his asthma and he tried his albuterol inhaler and symbicort with mild relief of symptoms. Patient denies ever being intubated for his asthma in the past however he feels like he needs steroids for relief of symptoms. Patient with moderate persistent asthma exacerbation. Initially patient given nebulizer treatment steroids observed with no significant improvement Treated with magnesium and additional 3 DuoNeb's Reevaluation no significant improvement. Patient will require admission for oxygen nebs and continued steroids.
[2018-11-26] MEDS ORDERED: ALBUTEROL SO4 0.5 % INH SOLN 2.5 MG/0.5 ML VIAL.NEB. NEB ONE (13:43)
[2018-11-26] MEDS ORDERED: MAGNESIUM SULF 50% (8.12 MEQ/2 ML-1 GM VIAL) IVPB ONE (14:36)
[2018-11-26] MEDS ORDERED: ALBUTEROL SO4 2.5/IPRATROPIUM 0.5 INH SOL 3 ML VIAL.NEB. NEB ONE ×2 (14:36→15:12)
[2018-11-26] MEDS ORDERED: MAGNESIUM SULF 50% (8.12 MEQ/2 ML-1 GM VIAL) ONE (15:12)
--- NOTE | 2018-11-26 20:35 | HP ---
Admitting History and Physical - Admission History of Present Illness: Pt is a 47 y/o male w/ PMH significant for HTN, asthma, chronic tobacco and chronic heroin usage. Pt has multiple admissions for asthma exacerbations w/ heroin use. Pt was BIBA for complaint of SOB and wheezing. Pt states that these symptoms began in the lst 24 hrs. Pt has has a cough wc is dry and nonproductive for the last 24 hrs. Neighbors called EMS. Last heroin usage was the morning prior to ED presentation. - Past Medical History Cardiovascular: Yes: HTN Pulmonary: Yes: Asthma Psych: Yes: Addictions (heroin) - Past Surgical History Past Surgical History: Yes: None - Smoking History Smoking history: Former smoker Have you smoked in the past 12 months: Yes Aproximately how many cigarettes per day: 2 If you are a former smoker, when did you quit?: 2017 - Alcohol/Substance Use Hx Alcohol Use: Yes History of Substance Use: reports: Heroin - Social History ADL: Independent Occupation: Unemployed History of Recent Travel: No Home Medications - Allergies Allergies/Adverse Reactions: Allergies Allergy/AdvReac Type Severity Reaction Status Date / Time No Known Allergies Allergy Verified 11/26/18 10:55 - Home Medications Home Medications: Ambulatory Orders Albuterol Sulfate Inhaler - [Ventolin HFA Inhaler -] 1 - 2 inh PO QID PRN #1 inhaler 05/23/18 Albuterol 0.083% Nebulizer Radha [Ventolin 0.083% Nebulizer Soln -] 1 neb NEB Q4H PRN #30 vial 09/21/18 Budesonide/Formeterol Fumarate [SYMBICORT 80/4.5mcg -] 1 inh PO BID #1 inhaler 10/25/18 Montelukast Na [Singulair -] 10 mg PO HS #30 tablet 10/25/18 cloNIDine HCL [Catapres -] 0.1 mg PO TID #30 tablet 10/25/18 Quetiapine Fumarate [Seroquel -] 50 mg PO HS 11/18/18 Family Disease History - Family Disease History Family History: Unremarkable Family Disease History: Diabetes: Mother, CA: Father (.) Review of Systems - Review of Systems Constitutional: reports: No Symptoms Eyes: reports: No Symptoms HENT: reports: No Symptoms Neck: reports: No Symptoms Cardiovascular: reports: Shortness of Breath Respiratory: reports: Cough, SOB, Wheezing Gastrointestinal: reports: Nausea Genitourinary: reports: No Symptoms Physical Examination Vital Signs: Vital Signs Temperature 98.6 F 11/26/18 19:20 Pulse Rate 91 H 11/26/18 19:20 Respiratory Rate 20 11/26/18 19:20 Blood Pressure 146/81 11/26/18 19:20 O2 Sat by Pulse Oximetry (%) 94 L 11/26/18 19:20 Eyes: Yes: WNL HENT: Yes: WNL Neck: Yes: WNL, Supple Cardiovascular: Yes: WNL, Regular Rate and Rhythm Respiratory: Yes: Wheezes Gastrointestinal: Yes: WNL, Normal Bowel Sounds, Soft Extremities: Yes: WNL Edema: No Neurological: Yes: WNL, Alert, Oriented ...Motor Strength: WNL Labs: CBC, BMP 11/26/18 12:13 11/26/18 12:13 Problem List - Problems (1) Asthma exacerbation Assessment/Plan: Cont IV steroids Cont nebulizers Code(s): J45.901 - UNSPECIFIED ASTHMA WITH (ACUTE) EXACERBATION Qualifiers: Asthma severity: unspecified severity Asthma persistence: persistent Qualified Code(s): J45.901 - Unspecified asthma with (acute) exacerbation (2) HTN (hypertension) Assessment/Plan: Pt is not on any meds at this time BP stable Cont to monitor Code(s): I10 - ESSENTIAL (PRIMARY) HYPERTENSION (3) Opioid dependence with withdrawal Assessment/Plan: Will give dose of methadone immigration specialist consult IV zofran for nausea Code(s): 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 (4) Nicotine dependence Code(s): F17.200 - NICOTINE DEPENDENCE, UNSPECIFIED, UNCOMPLICATED Qualifiers: Nicotine product type: cigarettes Substance use status: uncomplicated Qualified Code(s): F17.210 - Nicotine dependence, cigarettes, uncomplicated
[2018-11-26] MEDS ORDERED: METHADONE HCL 10 MG TABLET PO ONE (20:37)
[2018-11-26] MEDS: ALBUTEROL SO4 2.5/IPRATROPIUM 0.5 INH SOL 3 ML VIAL.NEB. NEB PRN (21:34)
[2018-11-27 00:42] VITALS: BMI 27.9
[2018-11-27] MEDS: methylPREDNISolone NA SUCC 40 MG/1 ML VIAL IVPUSH SCH ×3 (02:06→20:31)
[2018-11-27] MEDS: ENOXAPARIN NA (PORCINE) 40 MG/0.4 ML DISP.SYRIN SQ SCH (11:02)
--- NOTE | 2018-11-27 14:48 | PN ---
Progress Note (short form) - Note Progress Note: PULMONARY CONSULTATION DICTATED 11/27/18 IMP CHRONIC PERSISTENT ASTHMA WITH ACUTE EXACERBATION SUBSTANCE ABUSE PULMONARY NODULES IMPROVING H/O TOBACCO ABUSE PLAN IV STEROIDS INHALED BRONCHODILATORS MONITOR PEAK FLOW CHEST CT CONSIDER SUBSTANCE ABUSE COUNSELING DR THOMPSON Problem List - Problems (1) Asthma exacerbation Code(s): J45.901 - UNSPECIFIED ASTHMA WITH (ACUTE) EXACERBATION Qualifiers: Asthma severity: unspecified severity Asthma persistence: persistent Qualified Code(s): J45.901 - Unspecified asthma with (acute) exacerbation (2) Acute exacerbation of chronic obstructive pulmonary disease (COPD) Code(s): J44.1 - CHRONIC OBSTRUCTIVE PULMONARY DISEASE W (ACUTE) EXACERBATION (3) Heroin abuse Code(s): F11.10 - OPIOID ABUSE, UNCOMPLICATED (4) Mediastinal adenopathy Code(s): R59.0 - LOCALIZED ENLARGED LYMPH NODES (5) Opioid dependence Code(s): F11.20 - OPIOID DEPENDENCE, UNCOMPLICATED Qualifiers: Substance use status: with unspecified opioid-induced disorder Qualified Code(s): F11.29 - Opioid dependence with unspecified opioid-induced disorder (6) Nicotine dependence Code(s): F17.200 - NICOTINE DEPENDENCE, UNSPECIFIED, UNCOMPLICATED Qualifiers: Nicotine product type: cigarettes Substance use status: uncomplicated Qualified Code(s): F17.210 - Nicotine dependence, cigarettes, uncomplicated
--- NOTE | 2018-11-27 17:06 | CONS ---
DATE OF CONSULTATION: 11/27/2018 REFERRING PHYSICIAN: Flavia Diaz MD The patient is a 47-year-old male known to me from previous hospitalizations, has past medical history of chronic persistent asthma/COPD; longstanding history of tobacco use, approximately 1 pack per day for many years, quit 1 year ago; chronic heroin usage; snorts cocaine, last used about a couple of hours prior to admission; hypertension, admitted to [facility] with complaints of increasing shortness of breath. Patient states he was well until the night of admission when he started developing increasing shortness of breath, cough, and bronchospasm. He states that he snorted his heroin approximately an hour and a half to 2 hours prior. He states he snorts heroin every day, and it has led in the past to acute asthma exacerbations. Patient presented to the emergency room with the above. In the ER he was treated with albuterol, magnesium sulfate, and Medrol, with some improvement, and transferred up to medical floor for further management. There is no history of recent travel. There is no history of DVT or PE in the past. There is no history of occupational exposure to chemicals or fumes. There is no history of intubation in the past. Of note is the previous hospitalization he had noted on chest CT to have pulmonary nodules which subsequent films in August of 2018 showed some improvement. PAST MEDICAL HISTORY: Again includes asthma/COPD, hypertension, substance abuse, heroin abuse. REVIEW OF SYSTEMS: Positive shortness of breath, positive cough, positive wheezing. No chest pain, no palpitations, no hemoptysis, no abdominal pain. No lower extremity edema. CURRENT MEDICATIONS: Include Solu-Medrol 40 q.8, Lovenox, and DuoNeb. PHYSICAL EXAMINATION: General: The patient is a well-developed, well-nourished male, awake, alert, in no acute distress. Vital Signs: He is afebrile. Blood pressure is 127/74. Respiratory rate is 18-20. O2 saturation is 96% on room air. HEENT: Exam is normocephalic, atraumatic. Neck: Supple, large. Heart: Regular S1, S2. Chest: Diffuse bilateral wheezes. Abdomen: Soft. Bowel sounds are positive. Extremities: No cyanosis or edema. LABORATORY: WBC is 9.2, hemoglobin 11.3, hematocrit 34.0, with a platelet count of 267,000. BUN 21, creatinine 0.7. Chest x-ray: No infiltrates, no effusions. IMPRESSION: 1. Chronic persistent asthma with acute exacerbation. 2. Asthma/chronic obstructive pulmonary disease exacerbation. 3. Substance abuse. 4. Pulmonary nodules, improving. 5. History of tobacco use. PLAN: IV steroids, inhaled bronchodilators, monitor peak flow. CT scan of the chest. Consider substance abuse counseling. ANGELA THOMPSON M.D. [id number]
[2018-11-27] MEDS: ALBUTEROL SO4 2.5/IPRATROPIUM 0.5 INH SOL 3 ML VIAL.NEB. NEB PRN (19:18)
[2018-11-27] MEDS ORDERED: ONDANSETRON 4 MG/2 ML VIAL IVPUSH ONE (19:30)
[2018-11-27] MEDS ORDERED: PT OWN MED DRAWER 7, Y5N ONE (19:45)
[2018-11-27] MEDS ORDERED: METHADONE HCL 10 MG TABLET PO ONE (20:14)
[2018-11-27] MEDS ORDERED: ONDANSETRON 4 MG/2 ML VIAL IVPUSH PRN (20:15)
[2018-11-27] MEDS ORDERED: METHADONE 10 MG, METHADONE 5 MG PO ONE (20:15)
--- NOTE | 2018-11-27 23:55 | PN ---
Progress Note, Physician History of Present Illness: Pt complains of nausea and generalized bodyaches Pt still complains of wheezing/sob - Current Medication List Current Medications: Active Medications Albuterol/Ipratropium (Duoneb -) 1 amp NEB Q6H PRN PRN Reason: SHORTNESS OF BREATH Last Admin: 11/27/18 19:18 Dose: 1 amp Enoxaparin Sodium (Lovenox -) 40 mg SQ DAILY [facility] Last Admin: 11/27/18 11:02 Dose: 40 mg Methylprednisolone Sodium Succinate (Solu-Medrol -) 60 mg IVPUSH Q6H-IV [facility] Last Admin: 11/27/18 20:31 Dose: 60 mg Ondansetron HCl (Zofran Injection) 4 mg IVPUSH Q6H PRN PRN Reason: NAUSEA - Objective Vital Signs: Vital Signs Temperature 97.7 F 11/27/18 18:30 Pulse Rate 89 11/27/18 18:30 Respiratory Rate 20 11/27/18 18:30 Blood Pressure 130/73 11/27/18 18:30 O2 Sat by Pulse Oximetry (%) 96 11/27/18 09:00 Neck: Yes: WNL, Supple Cardiovascular: Yes: WNL, Regular Rate and Rhythm Respiratory: Yes: Wheezes Gastrointestinal: Yes: WNL, Normal Bowel Sounds, Soft Labs: CBC, BMP 11/26/18 12:13 11/26/18 12:13 Problem List - Problems (1) Asthma exacerbation Assessment/Plan: Cont IV steroids Cont ne bulizers Code(s): J45.901 - UNSPECIFIED ASTHMA WITH (ACUTE) EXACERBATION Qualifiers: Asthma severity: unspecified severity Asthma persistence: persistent Qualified Code(s): J45.901 - Unspecified asthma with (acute) exacerbation (2) Opioid dependence with withdrawal Assessment/Plan: Will give dose of methadone Away clinical safety specialist consult IV zofran for nausea Code(s): 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 (3) Heroin abuse Code(s): F11.10 - OPIOID ABUSE, UNCOMPLICATED
[2018-11-28] MEDS: methylPREDNISolone NA SUCC 40 MG/1 ML VIAL IVPUSH SCH ×4 (03:03→21:48)
[2018-11-28] MEDS: ENOXAPARIN NA (PORCINE) 40 MG/0.4 ML DISP.SYRIN SQ SCH (09:49)
--- NOTE | 2018-11-28 11:59 | CONSULT ---
Consult Detox [facility] Reason for Current Admission/Consult: Opiate Dependence Referred by:: Flavia Diaz - History History of Present Illness: Patient is a 47 year old male with history of opioid dependence who was admitted to [facility] for acute exacerbation of asthma. He is currently on prednisone and will be tapered while hospitalized and then referred back to his PMD. He was also experiencing withdrawals at the time of admission and only received one dose of 20 mg of methadone on admission and 15 mg of methadone was given by this gag writer through telephone order to hospital pharmacist yesterday. PMH also significant for HTN. P/E: Patient in no immediate distress at this time. COWS: 2-4 Cor: S1, S2 no murmurs and normal heart sounds Lungs: Prolonged expiratory phase with mild wheezes. Abd: Benign, +BS, no guarding, no tenderness. Ext: Normal capillary refill, pulses and normal range of motion in all extremities - History Source History Provided By: Patient Limitations to Obtaining History: No Limitations - Alcohol/Substance Use Hx Alcohol Use: Yes Hx Substance Use: Yes (heroin) Hx Substance Use Treatment: Yes (admissions to detox in the past) - Current Drug/Alcohol Use Heroin Route: Inhalation Frequency: 1-2 times per week Amount used: varied amounts depending on how much money he has Age of first use: 21 Date of Last Use: 11/25/18 - Past Medical History Cardio/Vascular: Yes: HTN Pulmonary: Yes: Asthma Psych: Yes: Addictions (heroin) - Past Surgical History Past Surgical History: Yes: None - Significant Medical Findings: COWS now 3-4 COWS - Scale Resting Pulse: 0= MD 80 or Below Sweatin= Chills/Flushing Restless Observation: 0= Sits Still Pupil Size: 0= Normal to Room Light Bone or Joint Aches: 1= Mild Discomfort Runny Nose/ Eye Tearin= None GI Upset > 30mins: 1= Stomach Cramp Tremor Observation: 0= None Yawning Observation: 0= None Anxiety or Irritability: 1=Feels Anxious/Irritable Goose Flesh Skin: 0=Smooth Skin (mild withdrawals.) COWS Score: 4 Assessment Plan - Diagnosis (1) Asthma exacerbation Status: Acute Qualifiers: Asthma severity: unspecified severity Asthma persistence: persistent Qualified Code(s): J45.901 - Unspecified asthma with (acute) exacerbation (2) HTN (hypertension) Status: Acute (3) Heroin abuse Status: Acute (4) Opioid dependence Status: Acute Qualifiers: Substance use status: with unspecified opioid-induced disorder Qualified Code(s): F11.29 - Opioid dependence with unspecified opioid-induced disorder - Plan Plan: 1. Opioid Dependence: Withdrawals now much less than on admission Continue detox while hospitalized. Will give methadone 10mg today then taper to 5 mg tomorrow and 5 mg the following day. He can then be discharged and if he relapses and wants to be admitted to rehab, he can be admitted to [facility] for Rehab. 2. Acute Exacerbation of Asthma: Continue taper of Prednisone He needs follow up with his Graphic Editor and higher dose of Symbicort. If Symbicort adequate doses fail, then consider biologicals available for treatment. That will need to be assessed by the wire coiler machine operator. 3. HTN: Properly being controlled. Continue meds. Dr. Gonzalez
[2018-11-28] MEDS ORDERED: METHADONE HCL 10 MG TABLET PO ONE (12:07)
[2018-11-28] MEDS: ALBUTEROL SO4 2.5/IPRATROPIUM 0.5 INH SOL 3 ML VIAL.NEB. NEB PRN ×2 (13:00→18:40)
--- NOTE | 2018-11-28 13:09 | PN ---
Progress Note, Physician History of Present Illness: pulmonary alert,feeling better,less dyspneic,less congested - Current Medication List Current Medications: Active Medications Albuterol/Ipratropium (Duoneb -) 1 amp NEB Q6H PRN PRN Reason: SHORTNESS OF BREATH Last Admin: 11/27/18 19:18 Dose: 1 amp Enoxaparin Sodium (Lovenox -) 40 mg SQ DAILY [facility] Last Admin: 11/28/18 09:49 Dose: Not Given Methadone HCl (Dolophine -) 5 mg PO ONCE ONE Stop: 11/29/18 10:01 Methadone HCl (Dolophine -) 5 mg PO ONCE ONE Stop: 11/30/18 10:01 Methylprednisolone Sodium Succinate (Solu-Medrol -) 60 mg IVPUSH Q6H-IV [facility] Last Admin: 11/28/18 09:48 Dose: 60 mg Ondansetron HCl (Zofran Injection) 4 mg IVPUSH Q6H PRN PRN Reason: NAUSEA - Objective Vital Signs: Vital Signs Temperature 97.8 F 11/28/18 10:00 Pulse Rate 96 H 11/28/18 10:00 Respiratory Rate 18 11/28/18 10:00 Blood Pressure 136/90 11/28/18 10:00 O2 Sat by Pulse Oximetry (%) 96 11/27/18 21:00 Constitutional: Yes: Well Nourished, Calm Eyes: Yes: WNL HENT: Yes: WNL Neck: Yes: WNL Cardiovascular: Yes: Regular Rate and Rhythm, S1, S2 Respiratory: Yes: Wheezes (less wheezes bilaterally) Gastrointestinal: Yes: Normal Bowel Sounds, Soft Extremities: Yes: WNL Edema: No Labs: CBC, BMP 11/26/18 12:13 11/26/18 12:13 Problem List - Problems (1) Asthma exacerbation Code(s): J45.901 - UNSPECIFIED ASTHMA WITH (ACUTE) EXACERBATION Qualifiers: Asthma severity: unspecified severity Asthma persistence: persistent Qualified Code(s): J45.901 - Unspecified asthma with (acute) exacerbation (2) Acute exacerbation of chronic obstructive pulmonary disease (COPD) Code(s): J44.1 - CHRONIC OBSTRUCTIVE PULMONARY DISEASE W (ACUTE) EXACERBATION (3) Heroin abuse Code(s): F11.10 - OPIOID ABUSE, UNCOMPLICATED (4) Mediastinal adenopathy Code(s): R59.0 - LOCALIZED ENLARGED LYMPH NODES (5) Opioid dependence Code(s): F11.20 - OPIOID DEPENDENCE, UNCOMPLICATED Qualifiers: Substance use status: with unspecified opioid-induced disorder Qualified Code(s): F11.29 - Opioid dependence with unspecified opioid-induced disorder (6) Nicotine dependence Code(s): F17.200 - NICOTINE DEPENDENCE, UNSPECIFIED, UNCOMPLICATED Qualifiers: Nicotine product type: cigarettes Substance use status: uncomplicated Qualified Code(s): F17.210 - Nicotine dependence, cigarettes, uncomplicated Assessment/Plan IMP CHRONIC PERSISTENT ASTHMA WITH ACUTE EXACERBATION SUBSTANCE ABUSE PULMONARY NODULES IMPROVING H/O TOBACCO ABUSE PLAN IV STEROIDS SAME DOSE INHALED BRONCHODILATORS MONITOR PEAK FLOW CHEST CT CONSIDER SUBSTANCE ABUSE COUNSELING DR THOMPSON Problem List - Problems (1) Asthma exacerbation Code(s): J45.901 - UNSPECIFIED ASTHMA WITH (ACUTE) EXACERBATION Qualifiers: Asthma severity: unspecified severity Asthma persistence: persistent Qualified Code(s): J45.901 - Unspecified asthma with (acute) exacerbation (2) Acute exacerbation of chronic obstructive pulmonary disease (COPD) Code(s): J44.1 - CHRONIC OBSTRUCTIVE PULMONARY DISEASE W (ACUTE) EXACERBATION (3) Heroin abuse Code(s): F11.10 - OPIOID ABUSE, UNCOMPLICATED (4) Mediastinal adenopathy Code(s): R59.0 - LOCALIZED ENLARGED LYMPH NODES (5) Opioid dependence Code(s): F11.20 - OPIOID DEPENDENCE, UNCOMPLICATED Qualifiers: Substance use status: with unspecified opioid-induced disorder Qualified Code(s): F11.29 - Opioid dependence with unspecified opioid-induced disorder (6) Nicotine dependence Code(s): F17.200 - NICOTINE DEPENDENCE, UNSPECIFIED, UNCOMPLICATED Qualifiers: Nicotine product type: cigarettes Substance use status: uncomplicated Qualified Code(s): F17.210 - Nicotine dependence, cigarettes, uncomplicated
--- NOTE | 2018-11-28 21:42 | PN ---
Progress Note, Physician History of Present Illness: No new complaints - Current Medication List Current Medications: Active Medications Albuterol/Ipratropium (Duoneb -) 1 amp NEB Q6H PRN PRN Reason: SHORTNESS OF BREATH Last Admin: 11/28/18 18:40 Dose: 1 amp Enoxaparin Sodium (Lovenox -) 40 mg SQ DAILY [facility] Last Admin: 11/28/18 09:49 Dose: Not Given Methadone HCl (Dolophine -) 5 mg PO ONCE ONE Stop: 11/29/18 10:01 Methadone HCl (Dolophine -) 5 mg PO ONCE ONE Stop: 11/30/18 10:01 Methylprednisolone Sodium Succinate (Solu-Medrol -) 60 mg IVPUSH Q6H-IV [facility] Last Admin: 11/28/18 14:32 Dose: 60 mg Ondansetron HCl (Zofran Injection) 4 mg IVPUSH Q6H PRN PRN Reason: NAUSEA - Objective Vital Signs: Vital Signs Temperature 97.9 F 11/28/18 18:30 Pulse Rate 77 11/28/18 18:30 Respiratory Rate 18 11/28/18 18:30 Blood Pressure 151/95 11/28/18 18:30 O2 Sat by Pulse Oximetry (%) 97 11/28/18 09:00 HENT: Yes: WNL Neck: Yes: WNL, Supple Cardiovascular: Yes: WNL, Regular Rate and Rhythm Respiratory: Yes: Wheezes Gastrointestinal: Yes: WNL, Normal Bowel Sounds, Soft Labs: CBC, BMP 11/26/18 12:13 11/26/18 12:13 Problem List - Problems (1) Asthma exacerbation Assessment/Plan: Cont IV steroids Cont nebulizers Code(s): J45.901 - UNSPECIFIED ASTHMA WITH (ACUTE) EXACERBATION Qualifiers: Asthma severity: unspecified severity Asthma persistence: persistent Qualified Code(s): J45.901 - Unspecified asthma with (acute) exacerbation (2) HTN (hypertension) Assessment/Plan: Bp is increasing Could be due to withdrawal Code(s): I10 - ESSENTIAL (PRIMARY) HYPERTENSION (3) Opioid dependence with withdrawal Assessment/Plan: Pt put on a methadone taper Code(s): 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 (4) Nicotine dependence Code(s): F17.200 - NICOTINE DEPENDENCE, UNSPECIFIED, UNCOMPLICATED Qualifiers: Nicotine product type: cigarettes Substance use status: uncomplicated Qualified Code(s): F17.210 - Nicotine dependence, cigarettes, uncomplicated
[2018-11-29] MEDS: methylPREDNISolone NA SUCC 40 MG/1 ML VIAL IVPUSH SCH ×2 (02:28→10:48)
[2018-11-29] MEDS ORDERED: METHADONE HCL 5 MG TABLET PO ONE (10:00)
[2018-11-29] MEDS: ENOXAPARIN NA (PORCINE) 40 MG/0.4 ML DISP.SYRIN SQ SCH (10:48)
--- NOTE | 2018-11-29 14:11 | PN ---
Progress Note, Physician History of Present Illness: pulmonary alert,slowly improving,less dyspneic - Current Medication List Current Medications: Active Medications Albuterol/Ipratropium (Duoneb -) 1 amp NEB Q6H PRN PRN Reason: SHORTNESS OF BREATH Last Admin: 11/28/18 18:40 Dose: 1 amp Enoxaparin Sodium (Lovenox -) 40 mg SQ DAILY [facility] Last Admin: 11/29/18 10:48 Dose: 40 mg Methadone HCl (Dolophine -) 5 mg PO ONCE ONE Stop: 11/30/18 10:01 Methylprednisolone Sodium Succinate (Solu-Medrol -) 60 mg IVPUSH Q6H-IV [facility] Last Admin: 11/29/18 10:48 Dose: 60 mg Ondansetron HCl (Zofran Injection) 4 mg IVPUSH Q6H PRN PRN Reason: NAUSEA - Objective Vital Signs: Vital Signs Temperature 97.4 F L 11/29/18 06:00 Pulse Rate 72 11/29/18 06:00 Respiratory Rate 20 11/29/18 06:00 Blood Pressure 136/74 11/29/18 06:00 O2 Sat by Pulse Oximetry (%) 94 L 11/28/18 21:00 Constitutional: Yes: Well Nourished, Calm Eyes: Yes: WNL HENT: Yes: WNL Neck: Yes: WNL Cardiovascular: Yes: Regular Rate and Rhythm, S1, S2 Respiratory: Yes: Rhonchi, Wheezes (scattered bunny wheezes and rhonchi) Gastrointestinal: Yes: Normal Bowel Sounds, Soft Extremities: Yes: WNL Edema: No Labs: CBC, BMP 11/26/18 12:13 Problem List - Problems (1) Asthma exacerbation Code(s): J45.901 - UNSPECIFIED ASTHMA WITH (ACUTE) EXACERBATION Qualifiers: Asthma severity: unspecified severity Asthma persistence: persistent Qualified Code(s): J45.901 - Unspecified asthma with (acute) exacerbation (2) Acute exacerbation of chronic obstructive pulmonary disease (COPD) Code(s): J44.1 - CHRONIC OBSTRUCTIVE PULMONARY DISEASE W (ACUTE) EXACERBATION (3) Heroin abuse Code(s): F11.10 - OPIOID ABUSE, UNCOMPLICATED (4) Mediastinal adenopathy Code(s): R59.0 - LOCALIZED ENLARGED LYMPH NODES (5) Opioid dependence Code(s): F11.20 - OPIOID DEPENDENCE, UNCOMPLICATED Qualifiers: Substance use status: with unspecified opioid-induced disorder Qualified Code(s): F11.29 - Opioid dependence with unspecified opioid-induced disorder (6) Nicotine dependence Code(s): F17.200 - NICOTINE DEPENDENCE, UNSPECIFIED, UNCOMPLICATED Qualifiers: Nicotine product type: cigarettes Substance use status: uncomplicated Qualified Code(s): F17.210 - Nicotine dependence, cigarettes, uncomplicated Assessment/Plan IMP CHRONIC PERSISTENT ASTHMA WITH ACUTE EXACERBATION SUBSTANCE ABUSE PULMONARY NODULES IMPROVING H/O TOBACCO ABUSE PLAN STEROID TAPER PREDNISONE IN AM INHALED BRONCHODILATORS MONITOR PEAK FLOW DR THOMPSON Problem List - Problems (1) Asthma exacerbation Code(s): J45.901 - UNSPECIFIED ASTHMA WITH (ACUTE) EXACERBATION Qualifiers: Asthma severity: unspecified severity Asthma persistence: persistent Qualified Code(s): J45.901 - Unspecified asthma with (acute) exacerbation (2) Acute exacerbation of chronic obstructive pulmonary disease (COPD) Code(s): J44.1 - CHRONIC OBSTRUCTIVE PULMONARY DISEASE W (ACUTE) EXACERBATION (3) Heroin abuse Code(s): F11.10 - OPIOID ABUSE, UNCOMPLICATED (4) Mediastinal adenopathy Code(s): R59.0 - LOCALIZED ENLARGED LYMPH NODES (5) Opioid dependence Code(s): F11.20 - OPIOID DEPENDENCE, UNCOMPLICATED Qualifiers: Substance use status: with unspecified opioid-induced disorder Qualified Code(s): F11.29 - Opioid dependence with unspecified opioid-induced disorder (6) Nicotine dependence Code(s): F17.200 - NICOTINE DEPENDENCE, UNSPECIFIED, UNCOMPLICATED Qualifiers: Nicotine product type: cigarettes Substance use status: uncomplicated Qualified Code(s): F17.210 - Nicotine dependence, cigarettes, uncomplicated
[2018-11-29] MEDS ORDERED: methylPREDNISolone NA SUCC 40 MG/1 ML VIAL IVPUSH SCH (14:15)
[2018-11-29 15:13] VITALS: BP 141/98; PULSE 63; TEMP 98.7
[2018-11-30] MEDS ORDERED: METHADONE HCL 5 MG TABLET PO ONE (10:00)
[2018-11-30] MEDS ORDERED: predniSONE 20 MG TABLET (UD) PO SCH (10:00)
== END 2018-11-29 15:47 | disposition left against medical advice (07) | DRG 141 ==
LOC: JER 10:41 → JERBED 16:33 → J5S 20:26
PROVIDERS: ADMIT Internal Medicine; ATTEND Internal Medicine
DX: J45.51 Severe persistent asthma with (acute) exacerbation (principal); I10 Essential (primary) hypertension; F17.210 Nicotine dependence, cigarettes, uncomplicated; F11.23 Opioid dependence with withdrawal; R59.0 Localized enlarged lymph nodes; F11.29 Opioid dependence with unspecified opioid-induced disorder; R91.1 Solitary pulmonary nodule; J44.9 Chronic obstructive pulmonary disease, unspecified
CPT/HCPCS: 36415; 71045-TC-FY; 80053; 84484; 85025; 93005; 93010; 94150; 94640; 94664; 99283-25

== ENCOUNTER 2018-12-14 05:46 | Inpatient (IN) | payer OTHER ==
--- NOTE | 2018-12-14 05:49 | PDOC ---
Attending Attestation - Resident Resident Name: KatieJaylen - ED Attending Attestation I have performed the following: I have examined & evaluated the patient, The case was reviewed & discussed with the resident, I agree w/resident's findings & plan - HPI HPI: 12/14/18 07:20 Pt comes with asthma exacerbation after drug use. Pt has been here in the past. - Physicial Exam PE: 12/14/18 07:21 Agree with resident exam. - Medical Decision Making 12/14/18 07:21 Pt will be signed out to the day team. His lab results are pending and he requires reeval.
[2018-12-14] MEDS ORDERED: DEXAMETHASONE SOD PHOSPHATE 10 MG/1 ML VIAL ONE (06:06)
[2018-12-14] MEDS ORDERED: ALBUTEROL SO4 2.5/IPRATROPIUM 0.5 INH SOL 3 ML VIAL.NEB. NEB ONE ×4 (06:07→07:57)
[2018-12-14] MEDS ORDERED: MAGNESIUM SULF 50% (8.12 MEQ/2 ML-1 GM VIAL) IVPB ONE (06:15)
--- NOTE | 2018-12-14 06:16 | PDOC ---
History of Present Illness - General Stated Complaint: S.O.B. Time Seen by Provider: 12/14/18 05:49 History Source: Patient Exam Limitations: No Limitations - History of Present Illness Initial Comments: 12/14/18 07:07 Mr. Nicolas is a 47 yo M with a hx of asthma and heroin abuse (via nasal) who presents to the emergency department with SOB that began earlier in the day after snorting heroin 16 hours ago. Per the patient, he states he used his albuterol but was not abating his SOB. Denies chest pain. Denies fever and cough. Denies exposure to new environment. Denies the following: nausea, vomiting, abdominal pain, dysuria, hematuria, and diarrhea. Per EMS, he was given 10 mg of dex and 2x duoneb. Past History - Past Medical History Allergies/Adverse Reactions: Allergies Allergy/AdvReac Type Severity Reaction Status Date / Time No Known Allergies Allergy Verified 12/14/18 06:40 Home Medications: Ambulatory Orders Albuterol Sulfate Inhaler - [Ventolin HFA Inhaler -] 1 - 2 inh PO QID PRN #1 inhaler 05/23/18 Albuterol 0.083% Nebulizer Radha [Ventolin 0.083% Nebulizer Soln -] 1 neb NEB Q4H PRN #30 vial 09/21/18 Budesonide/Formeterol Fumarate [SYMBICORT 80/4.5mcg -] 1 inh PO BID #1 inhaler 10/25/18 Montelukast Na [Singulair -] 10 mg PO HS #30 tablet 10/25/18 cloNIDine HCL [Catapres -] 0.1 mg PO TID #30 tablet 10/25/18 Quetiapine Fumarate [Seroquel -] 50 mg PO HS 11/18/18 Anemia: No Asthma: Yes Cancer: No Cardiac Disorders: No CVA: No COPD: No CHF: No DVT: No Dementia: No Diabetes: No GI Disorders: No Disorders: No HTN: Yes (Tx with Clonidine) Hypercholesterolemia: No Kidney Stones: No Liver Disease: No Seizures: No Thyroid Disease: No - Surgical History Abdominal Surgery: No Appendectomy: No Cardiac Surgery: No Cholecystectomy: No Lung Surgery: No Neurologic Surgery: No Orthopedic Surgery: No - Reproductive History Testicular Surgery: No - Immunization History Td Vaccination: Yes Immunization Up to Date: Yes - Suicide/Smoking/Psychosocial Hx Smoking Status: Yes Smoking History: Former smoker Years of Tobacco Use: 40 Have you smoked in the past 12 months: Yes Number of Cigarettes Smoked Daily: 2 If you are a former smoker, when did you quit?: 2017 Cigars Per Day: 0 'Breaking Loose' booklet given: 11/18/18 Hx Alcohol Use: Yes Drug/Substance Use Hx: Yes Substance Use Type: Alcohol, Cocaine, Heroin, Marijuana Hx Substance Use Treatment: Yes Review of Systems - Review of Systems Able to Perform ROS?: Yes Is the patient limited [place]ymra[place] proficient: No Constitutional: No: Chills, Diaphoresis, Fever, Weakness HEENTM: No: Eye Pain, Ear Pain, Nose Pain, Throat Pain, Mouth Pain Respiratory: Yes: Shortness of Breath, SOB at Rest. No: Cough, Hemoptysis Cardiac (ROS): No: Chest Pain, Lightheadedness, Palpitations, Syncope, Chest Tightness ABD/GI: No: Constipated, Diarrhea, Nausea, Vomiting : No: Burning, Dysuria, Hematuria Musculoskeletal: No: Back Pain, Joint Pain, Neck Pain Integumentary: No: Bruising, Erythema, Rash Neurological: No: Headache, Numbness, Tingling, Tremors Psychiatric: No: Change in Appetite Endocrine: No: Unexplained Weight Gain Hematologic/Lymphatic: No: Anemia *Physical Exam - Physical Exam Comments: 12/14/18 07:20 bilateral wheezing with decreased breath sounds. General Appearance: Yes: Nourished, Appropriately Dressed. No: Apparent Distress, Intoxicated HEENT: positive: EOMI, MAGDIEL, Normal Voice, Symmetrical, Pharynx Normal, Hearing Grossly Normal. negative: Pale Conjunctivae, Scleral Icterus (R), Scleral Icterus (L), Muffled/Hoarse voice, Pharyngeal Erythema, Tonsillar Exudate, Tonsillar Erythema, Nasal Congestion, Rhinorrhea, Sinus Tenderness, Excessive drooling Neck: positive: Trachea midline, Supple. negative: Tender, Lymphadenopathy (R) , Lymphadenopathy (L), Tender lateral, Tender midline Respiratory/Chest: positive: Rapid RR, Decreased Breath Sounds, Wheezing. negative: Chest Tender, Lungs Clear, Normal Breath Sounds, Respiratory Distress , Accessory Muscle Use, Crackles Cardiovascular: positive: Regular Rhythm, Regular Rate, S1, S2. negative: Systolic Murmur Gastrointestinal/Abdominal: positive: Normal Bowel Sounds, Flat, Soft. negative : Tender, Distended, Guarding, Rebound Lymphatic: negative: Adenopathy Musculoskeletal: positive: Normal Inspection. negative: CVA Tenderness, Vertebral Tenderness Extremity: positive: Normal Capillary Refill, Normal Inspection, Normal Range of Motion. negative: Tender, Swelling, Calf Tenderness Integumentary: positive: Normal Color, Dry, Warm Neurologic: positive: supervisor weaving II-XII NML intact, Fully Oriented, Alert, Normal Mood/ Affect, Normal Response ED Treatment Course - LABORATORY CBC & Chemistry Diagram: 12/14/18 07:05 12/14/18 07:05 Medical Decision Making - Medical Decision Making Mr. Nicolas is a 46 yo M with a hx of asthma and heroin abuse (via nasal) who presents to the emergency department with SOB that began earlier in the day after snorting heroin 16 hours ago. Initial vitals: Initial Vital Signs Pulse Resp BP Pulse Ox 81 18 143/83 98 12/14/18 06:40 12/14/18 06:40 12/14/18 06:40 12/14/18 06:40 Work up: asthma exacerbation likely secondary to bronchspasm secondary to heroin abuse. patient presented via EMS s/p 10 mg of dex and 2x duonebs. Patient to be given another duoneb and 2 grams of magnesium. will work up other possible causes of asthma exacerbation such as PNA. Laboratory Tests 12/14/18 12/14/18 12/14/18 07:05 07:05 07:05 WBC 12.4 H RBC 3.72 L Hgb 10.0 L Hct 30.1 L MCV 81.1 MCH 27.0 MCHC 33.3 RDW 15.3 Plt Count 267 MPV 8.1 D Absolute Neuts (auto) 10.4 H Neutrophils % 83.8 H Lymphocytes % 10.1 D Monocytes % 2.9 L Eosinophils % 2.9 Basophils % 0.3 Nucleated RBC % 0 Platelet Estimate Adequate Platelet Comment No clumping noted Sodium 143 Potassium 4.1 Chloride 109 H Carbon Dioxide 28 Anion Gap 6 L BUN 8.7 Creatinine 0.6 Est GFR (CKD-EPI)AfAm 139.75 Est GFR (CKD-EPI)NonAf 120.58 Random Glucose 119 H Calcium 8.1 L Total Bilirubin 0.2 AST 21 ALT 15 Alkaline Phosphatase 69 Creatine Kinase 85 Troponin I < 0.02 B-Natriuretic Peptide 122.2 Total Protein 5.5 L Albumin 2.7 L 12/14/18 07:05 WBC RBC Hgb Hct MCV MCH MCHC RDW Plt Count MPV Absolute Neuts (auto) Neutrophils % Lymphocytes % Monocytes % Eosinophils % Basophils % Nucleated RBC % Platelet Estimate Platelet Comment Sodium Potassium Chloride Carbon Dioxide Anion Gap BUN Creatinine Est GFR (CKD-EPI)AfAm Est GFR (CKD-EPI)NonAf Random Glucose Calcium Total Bilirubin AST ALT Alkaline Phosphatase Creatine Kinase Troponin I B-Natriuretic Peptide Cancelled Total Protein Albumin Patient was signed out to Dr. Fernandez. *DC/Admit/Observation/Transfer Diagnosis at time of Disposition: Asthma attack Qualifiers: Asthma severity: severe Asthma persistence: persistent Qualified Code(s): J45.51 - Severe persistent asthma with (acute) exacerbation - Discharge Dispostion Condition at time of disposition: Guarded - Referrals - Patient Instructions - Post Discharge Activity
[2018-12-14 07:10] LABS: BASO % 0.3 % (0-2.0); EOS % 2.9 % (0-4.5); HEMATOCRIT 30.1 % (35.4-49); LYMPH % 10.1 % (8-40); MCHC 33.3 g/dl (32.0-35.9); MEAN CELL VOLUME 81.1 fl (80-96); MEAN PLT VOLUME 8.1 fl (7.5-11.1); MONO % 2.9 % (3.8-10.2); NEUT % 83.8 % (42.8-82.8); RBC 3.72 M/mm3 (4.00-5.60); RDW 15.3 % (11.9-15.9); WHITE BLOOD COUNT 12.4 K/mm3 (4.0-10.0)
[2018-12-14 07:35] LABS: ALBUMIN 2.7 g/dl (3.4-5.0); BILIRUBIN,TOTAL 0.2 mg/dL (0.2-1); BLOOD UREA NITROGEN 8.7 mg/dL (7-18); CALCIUM 8.1 mg/dL (8.5-10.1); CREATININE 0.6 mg/dL (0.55-1.3); POTASSIUM 4.1 mmol/L (3.5-5.1); TOT PROT 5.5 g/dl (6.4-8.2)
[2018-12-14 07:45] LABS: N-TERMINAL BNP 122.2 pg/ml (5-125)
[2018-12-14] MEDS ORDERED: MAGNESIUM 1GM/D5W - 2 GM/200 ML IVPB IVPB ONE (07:57)
[2018-12-14 08:09] LABS: PLATELET COUNT 267 K/MM3 (134-434)
[2018-12-14 08:10] LABS: PLATELET ESTIMATE ADEQUATE
--- NOTE | 2018-12-14 08:18 | PDOC ---
*Physical Exam - Vital Signs Last Vital Signs Temp Pulse Resp BP Pulse Ox 79 17 141/82 98 12/14/18 07:04 12/14/18 07:04 12/14/18 07:04 12/14/18 07:04 - Physical Exam Comments: 12/14/18 08:15 Gen: aaox3, mild tachypnea heart: +s1xs2 reg lungs: diffuse wheezing all lung hart b/l abd: soft, nt/nd +bs ext: trace edema to R foot, no calf swelling, no warmth, no ttp, pulses intact, small abrasion to top of foot, no surrounding erythema or cellulitis present Heart Score/ECG Review - ECG Intrepretation Comment:: 12/14/18 08:18 sinus at 82, nl axis, nl interval, no acute st/t wave findings ED Treatment Course - LABORATORY CBC & Chemistry Diagram: 12/14/18 07:05 12/14/18 07:05 - ADDITIONAL ORDERS Additional order review: Laboratory Results 12/14/18 12/14/18 12/14/18 07:05 07:05 07:05 Sodium 143 Potassium 4.1 Chloride 109 H Carbon Dioxide 28 Anion Gap 6 L BUN 8.7 Creatinine 0.6 Est GFR (CKD-EPI)AfAm 139.75 Est GFR (CKD-EPI)NonAf 120.58 Random Glucose 119 H Calcium 8.1 L Total Bilirubin 0.2 AST 21 ALT 15 Alkaline Phosphatase 69 Creatine Kinase 85 Troponin I < 0.02 B-Natriuretic Peptide Cancelled 122.2 Total Protein 5.5 L Albumin 2.7 L 12/14/18 07:05 RBC 3.72 L MCV 81.1 MCHC 33.3 RDW 15.3 MPV 8.1 D Neutrophils % 83.8 H Lymphocytes % 10.1 D Monocytes % 2.9 L Eosinophils % 2.9 Basophils % 0.3 - Medications Given in the ED: ED Medications Discontinued Medications Generic Name Dose Route Start Last Admin Trade Name Freq PRN Reason Stop Dose Admin Albuterol/Ipratropium 1 amp 12/14/18 06:15 12/14/18 07:05 Duoneb - NEB 12/14/18 06:16 1 amp ONCE ONE Administration Albuterol/Ipratropium 1 amp 12/14/18 07:46 12/14/18 08:04 Duoneb - NEB 12/14/18 07:47 1 amp ONCE ONE Administration Medical Decision Making - Medical Decision Making 12/14/18 08:16 a/p: 47yo male signed out from the night team pending re-eval, nebs, steroids -pt with hx of asthma -pt c/o chest tightness -wheezing diffusely -pt with asthma exacerbation -denies fevers/chills -pt received 2 duonebs -will give 3rd duoneb -mag pending -pt with mildly elevated wbc -also snorts drugs -will start azithromycin given asthma exacerbation -cxr clear -pt will need admission for asthma exacerbation - pt with tachypnea and diffuse wheezing 12/14/18 09:28 resident discussed the case with Dr. Diaz who accepts pt to service *DC/Admit/Observation/Transfer Diagnosis at time of Disposition: Asthma attack Qualifiers: Asthma severity: severe Asthma persistence: persistent Qualified Code(s): J45.51 - Severe persistent asthma with (acute) exacerbation - Discharge Dispostion Condition at time of disposition: Guarded Decision to Admit order: Yes - Referrals Referrals: Eric Yanez MD [Primary Care Provider] - - Patient Instructions Printed Discharge Instructions: Asthma -- Adult - Post Discharge Activity
[2018-12-14] MEDS ORDERED: AZITHROMYCIN IVPB 500 MG in DEXTROSE 5%-WATER - 250 ML IVPB ONE (08:40)
--- NOTE | 2018-12-14 09:20 | PDOC ---
*Physical Exam - Vital Signs Last Vital Signs Temp Pulse Resp BP Pulse Ox 79 17 141/82 98 12/14/18 07:04 12/14/18 07:04 12/14/18 07:04 12/14/18 07:04 - Physical Exam General Appearance: Yes: Nourished, Appropriately Dressed, Apparent Distress HEENT: positive: Normal ENT Inspection, Normal Voice Neck: positive: Supple Respiratory/Chest: positive: Respiratory Distress, Accessory Muscle Use, Labored Respiration, Rapid RR, Rhonchi, Wheezing. negative: Lungs Clear, Normal Breath Sounds Cardiovascular: positive: Regular Rhythm, Regular Rate Vascular Pulses: Dorsalis-Pedis (R): 2+, Doralis-Pedis (L): 2+ Gastrointestinal/Abdominal: positive: Flat, Soft Rectal Exam: positive: deferred Lymphatic: negative: Adenopathy Musculoskeletal: positive: Normal Inspection. negative: CVA Tenderness, Decreased Range of Motion Extremity: positive: Normal Capillary Refill, Normal Range of Motion. negative : Normal Inspection (Track herr) Integumentary: positive: Normal Color, Dry, Warm, Erythema, Rash Neurologic: positive: Alert, Normal Mood/Affect, Normal Response ED Treatment Course - LABORATORY CBC & Chemistry Diagram: 12/14/18 07:05 12/14/18 07:05 - ADDITIONAL ORDERS Additional order review: Laboratory Results 12/14/18 12/14/18 12/14/18 07:05 07:05 07:05 Sodium 143 Potassium 4.1 Chloride 109 H Carbon Dioxide 28 Anion Gap 6 L BUN 8.7 Creatinine 0.6 Est GFR (CKD-EPI)AfAm 139.75 Est GFR (CKD-EPI)NonAf 120.58 Random Glucose 119 H Calcium 8.1 L Total Bilirubin 0.2 AST 21 ALT 15 Alkaline Phosphatase 69 Creatine Kinase 85 Troponin I < 0.02 B-Natriuretic Peptide Cancelled 122.2 Total Protein 5.5 L Albumin 2.7 L 12/14/18 07:05 RBC 3.72 L MCV 81.1 MCHC 33.3 RDW 15.3 MPV 8.1 D Neutrophils % 83.8 H Lymphocytes % 10.1 D Monocytes % 2.9 L Eosinophils % 2.9 Basophils % 0.3 - RADIOLOGY Radiograph Interpretation: CXR: Chest: Shortness of breath Single AP view of the chest reveals a lordotic projection with clear lungs, normal mediastinum and sharp angles. The bones and soft tissues are intact. Since 11/26/2018, there is no change of an adverse nature. Impression: No acute chest pathology. - Medications Given in the ED: ED Medications Discontinued Medications Generic Name Dose Route Start Last Admin Trade Name Remberto PRN Reason Stop Dose Admin Albuterol/Ipratropium 1 amp 12/14/18 06:15 12/14/18 07:05 Duoneb - NEB 12/14/18 06:16 1 amp ONCE ONE Administration Albuterol/Ipratropium 1 amp 12/14/18 07:46 12/14/18 08:04 Duoneb - NEB 12/14/18 07:47 1 amp ONCE ONE Administration Magnesium Sulfate 2 gm 12/14/18 06:15 12/14/18 08:17 Magnesium Sulfate IVPB 12/14/18 06:16 2 gm ONCE ONE Administration Medical Decision Making - Medical Decision Making Patient signed out to me from night team here with asthma exacerbation after heroin use. Patient states he feels awful and much worse than usual. CXR: Chest: Shortness of breath Single AP view of the chest reveals a lordotic projection with clear lungs, normal mediastinum and sharp angles. The bones and soft tissues are intact. Since 11/26/2018, there is no change of an adverse nature. Impression: No acute chest pathology. Re-assessment: Patient is very short of breath, has chest discomfort and tightening, has diffuse wheezing despite receiving 3 duonebs, mag and decadron. - Will give more duonebs - WBC elevated with white shift - will give azithromax Disposition: Admit to hospital for asthma exacerbation. PCP: Dr. Eric Yanez - Will call Dr. Diaz's office for admission. *DC/Admit/Observation/Transfer Diagnosis at time of Disposition: Asthma attack Qualifiers: Asthma severity: severe Asthma persistence: persistent Qualified Code(s): J45.51 - Severe persistent asthma with (acute) exacerbation - Discharge Dispostion Condition at time of disposition: Guarded Decision to Admit order: Yes - Referrals Referrals: Eric Yanez MD [Primary Care Provider] - - Patient Instructions Printed Discharge Instructions: Asthma -- Adult - Post Discharge Activity
[2018-12-14] MEDS ORDERED: AZITHROMYCIN IVPB 500 MG/250 ML BAG IVPB ONE ×2 (09:57→10:03)
--- NOTE | 2018-12-14 11:30 | EKG ---
Test Reason : Blood Pressure : / mmHG Vent. Rate : 082 BPM Atrial Rate : 082 BPM P-R Int : 174 ms QRS Dur : 084 ms QT Int : 372 ms P-R-T Axes : 053 049 054 degrees QTc Int : 434 ms NORMAL SINUS RHYTHM NORMAL ECG WHEN COMPARED WITH ECG OF 26-NOV-2018 11:32, NO SIGNIFICANT CHANGE WAS FOUND Confirmed by TREVOR LUNDBERG MD ([id number]) on 12/14/2018 11:30:46 AM Referred By: Confirmed By:TREVOR LUNDBERG MD
[2018-12-14] MEDS ORDERED: ONDANSETRON 4 MG/2 ML VIAL IVPUSH PRN (15:25)
[2018-12-14] MEDS: CEFTRIAXONE 1 GM in DEXTROSE 5%-WATER - 50 ML IVPB SCH (16:08)
[2018-12-14] MEDS: methylPREDNISolone NA SUCC 40 MG/1 ML VIAL IVPUSH SCH (19:27)
[2018-12-14 20:22] VITALS: BMI 26.8
[2018-12-14] MEDS ORDERED: METHADONE HCL 5 MG TABLET PO ONE (20:30)
[2018-12-14] MEDS: ALBUTEROL SO4 2.5/IPRATROPIUM 0.5 INH SOL 3 ML VIAL.NEB. NEB PRN (21:06)
--- NOTE | 2018-12-14 21:25 | HP ---
Admitting History and Physical - Admission History of Present Illness: Pt is a 47 y/o male w/ PMH significant for asthma, HTN(not on any meds) and heroin abuse. Pt has had multiple admissions for asthma exacerbations after snorting heroin. Pt presented to the emergency department with SOB/wheezing that began earlier in the day after snorting heroin. Pt also has a dry nonproductive cough fro the past 2 days. Pt had been using his inhalers at home but his SOB/wheezing did not improve and pt came to ER. In the ER pt found to have elevated WBC and CXR did not show any acute pathology. - Past Medical History Cardiovascular: Yes: HTN Pulmonary: Yes: Asthma Psych: Yes: Addictions (heroin) - Past Surgical History Past Surgical History: Yes: None - Smoking History Smoking history: Former smoker Have you smoked in the past 12 months: Yes Aproximately how many cigarettes per day: 2 If you are a former smoker, when did you quit?: 2017 - Alcohol/Substance Use Hx Alcohol Use: No History of Substance Use: reports: Heroin - Social History ADL: Independent Occupation: Unemployed History of Recent Travel: No Home Medications - Allergies Allergies/Adverse Reactions: Allergies Allergy/AdvReac Type Severity Reaction Status Date / Time No Known Allergies Allergy Verified 12/14/18 06:40 - Home Medications Home Medications: Ambulatory Orders Albuterol Sulfate Inhaler - [Ventolin HFA Inhaler -] 1 - 2 inh PO QID PRN #1 inhaler 05/23/18 Albuterol 0.083% Nebulizer Radha [Ventolin 0.083% Nebulizer Soln -] 1 neb NEB Q4H PRN #30 vial 09/21/18 Budesonide/Formeterol Fumarate [SYMBICORT 80/4.5mcg -] 1 inh PO BID #1 inhaler 10/25/18 Montelukast Na [Singulair -] 10 mg PO HS #30 tablet 10/25/18 cloNIDine HCL [Catapres -] 0.1 mg PO TID #30 tablet 10/25/18 Quetiapine Fumarate [Seroquel -] 50 mg PO HS 11/18/18 Family Disease History - Family Disease History Family History: Unremarkable Family Disease History: Diabetes: Mother, [place]: Father (.) Review of Systems - Review of Systems Constitutional: reports: No Symptoms Eyes: reports: No Symptoms HENT: reports: No Symptoms Neck: reports: No Symptoms Cardiovascular: reports: Shortness of Breath Respiratory: reports: Cough, SOB, Wheezing Gastrointestinal: reports: No Symptoms Genitourinary: reports: No Symptoms Physical Examination Vital Signs: Vital Signs Temperature 97.8 F 12/14/18 20:02 Pulse Rate 88 12/14/18 20:02 Respiratory Rate 20 12/14/18 20:22 Blood Pressure 123/73 12/14/18 20:02 O2 Sat by Pulse Oximetry (%) 97 12/14/18 20:22 Eyes: Yes: WNL HENT: Yes: WNL Neck: Yes: WNL, Supple Cardiovascular: Yes: WNL, Regular Rate and Rhythm Respiratory: Yes: Wheezes Gastrointestinal: Yes: WNL, Normal Bowel Sounds, Soft Musculoskeletal: Yes: WNL Extremities: Yes: WNL Edema: No Neurological: Yes: WNL, Alert, Oriented ...Motor Strength: WNL Labs: CBC, BMP 12/14/18 07:05 12/14/18 07:05 Problem List - Problems (1) Asthma exacerbation Assessment/Plan: Cont IV ceftriaxone/zithro Cont IV solumedrol Cont nebulizers Pulmonary consult Code(s): J45.901 - UNSPECIFIED ASTHMA WITH (ACUTE) EXACERBATION Qualifiers: Asthma severity: severe Asthma persistence: persistent Qualified Code(s) : J45.51 - Severe persistent asthma with (acute) exacerbation (2) HTN (hypertension) Assessment/Plan: BP stable At this point will continue to monitor BP Pt not on any meds Code(s): I10 - ESSENTIAL (PRIMARY) HYPERTENSION (3) Heroin abuse Assessment/Plan: Will start methadone taper for heroin withdrawal security compliance specialist consult Code(s): F11.10 - OPIOID ABUSE, UNCOMPLICATED
[2018-12-15] MEDS: methylPREDNISolone NA SUCC 40 MG/1 ML VIAL IVPUSH SCH ×3 (02:10→17:35)
[2018-12-15] MEDS ORDERED: ACETAMINOPHEN 325 MG TABLET (FP) PO PRN (02:33)
[2018-12-15] MEDS ORDERED: cefTRIAXone SODIUM 1 GM VIAL ONE (08:07)
[2018-12-15] MEDS ORDERED: DEXTROSE 5%-WATER - 50 ML IVPB ONE (08:08)
--- NOTE | 2018-12-15 11:53 | CON.PULM ---
Consult Consult Specialty:: PULMONARY Referred by:: Dr Diaz Reason for Consultation:: shortness of breath - History of Present Illness Chief Complaint: shortness of breath History of Present Illness: 47yo male with h/o asthma, intranasal heroin use who was admitted with worsening shortness of breath. He had snorted heroin shortly before his dyspnea started. +nonproductive cough and wheezing. No fevers but with chills. Reports compliance with his inhalers. Has had multiple admissions with similar presentation. No recent travel or sick contacts. - History Source History Provided By: Patient, Medical Record Limitations to Obtaining History: No Limitations - Past Medical History Cardio/Vascular: Yes: HTN Pulmonary: Yes: Asthma Psych: Yes: Addictions (heroin) - Past Surgical History Past Surgical History: Yes: None - Alcohol/Substance Use Hx Alcohol Use: No History of Substance Use: reports: Heroin - Smoking History Smoking history: Former smoker Have you smoked in the past 12 months: Yes Aproximately how many cigarettes per day: 2 If you are a former smoker, when did you quit?: 2017 - Social History ADL: Independent Occupation: Unemployed History of Recent Travel: No Home Medications - Allergies Allergies/Adverse Reactions: Allergies Allergy/AdvReac Type Severity Reaction Status Date / Time No Known Allergies Allergy Verified 12/14/18 06:40 - Home Medications Home Medications: Ambulatory Orders Albuterol Sulfate Inhaler - [Ventolin HFA Inhaler -] 1 - 2 inh PO QID PRN #1 inhaler 05/23/18 Albuterol 0.083% Nebulizer Radha [Ventolin 0.083% Nebulizer Soln -] 1 neb NEB Q4H PRN #30 vial 09/21/18 Budesonide/Formeterol Fumarate [SYMBICORT 80/4.5mcg -] 1 inh PO BID #1 inhaler 10/25/18 Montelukast Na [Singulair -] 10 mg PO HS #30 tablet 10/25/18 cloNIDine HCL [Catapres -] 0.1 mg PO TID #30 tablet 10/25/18 Quetiapine Fumarate [Seroquel -] 50 mg PO HS 11/18/18 Family Disease History - Family Disease History Family Disease History: Diabetes: Mother, CA: Father (.) Review of Systems - Review of Systems Constitutional: reports: Chills. denies: Fever, Weakness Eyes: denies: Recent Change in Vision HENT: denies: Nasal Congestion, Throat Pain Neck: denies: Stiffness, Tenderness Cardiovascular: reports: Shortness of Breath. denies: Chest Pain, Palpitations Respiratory: reports: Cough, Exercise Intolerance, SOB on Exertion, Wheezing. denies: Hemoptysis Gastrointestinal: denies: Abdominal Pain, Nausea, Vomiting Genitourinary: denies: Dysuria, Hematuria Neurological: denies: Dizziness, Headache Endocrine: denies: Unexplained Weight Loss Physical Exam Vital Sings: Vital Signs Temperature 97.6 F 12/15/18 02:00 Pulse Rate 100 H 12/15/18 09:09 Respiratory Rate 18 12/15/18 09:09 Blood Pressure 111/77 12/15/18 09:09 O2 Sat by Pulse Oximetry (%) 98 12/15/18 09:09 Constitutional: Yes: Calm Eyes: Yes: Conjunctiva Clear, EOM Intact HENT: Yes: Atraumatic, Normocephalic Neck: Yes: Supple, Trachea Midline Cardiovascular: Yes: Regular Rate and Rhythm Respiratory: Yes: Poor Air Entry, Rhonchi, Wheezes ...Clubbing: No Gastrointestinal: Yes: Normal Bowel Sounds, Soft. No: Tenderness Edema: No Neurological: Yes: Alert, Oriented Labs: CBC, BMP 12/14/18 07:05 12/14/18 07:05 Imaging - Results Chest X-ray: Report Reviewed, Image Reviewed (no infiltrates) Problem List - Problems (1) Asthma exacerbation Code(s): J45.901 - UNSPECIFIED ASTHMA WITH (ACUTE) EXACERBATION Qualifiers: Asthma severity: severe Asthma persistence: persistent Qualified Code(s) : J45.51 - Severe persistent asthma with (acute) exacerbation (2) Heroin abuse Code(s): F11.10 - OPIOID ABUSE, UNCOMPLICATED (3) Opioid dependence Code(s): F11.20 - OPIOID DEPENDENCE, UNCOMPLICATED Qualifiers: Substance use status: with unspecified opioid-induced disorder Qualified Code(s): F11.29 - Opioid dependence with unspecified opioid-induced disorder Assessment/Plan Acute Asthma Exacerbation Heroin Use Opioid Dependent - IV medrol - inhaled bronchodilators standing and PRN - singulair - monitor peak flow - heroin cessation discussed - DVT prophylaxis Thank you for this consult Fletcher Rdz MD
[2018-12-15] MEDS: CEFTRIAXONE 1 GM in DEXTROSE 5%-WATER - 50 ML IVPB SCH (11:58)
[2018-12-15] MEDS: AZITHROMYCIN IVPB 250 MG in DEXTROSE 5%-WATER - 250 ML IVPB SCH (11:59)
[2018-12-15] MEDS: ENOXAPARIN NA (PORCINE) 40 MG/0.4 ML DISP.SYRIN SQ SCH (11:59)
[2018-12-15] MEDS ORDERED: METHADONE HCL 10 MG TABLET PO ONE (18:00)
[2018-12-15 18:51] VITALS: BP 132/77; PULSE 81; TEMP 99
--- NOTE | 2018-12-15 19:51 | PN ---
Progress Note, Physician History of Present Illness: Note was entered in error - Current Medication List Current Medications: Active Medications Acetaminophen (Tylenol -) 650 mg PO Q6H PRN PRN Reason: PAIN Albuterol/Ipratropium (Duoneb -) 1 amp NEB Q6H PRN PRN Reason: SHORTNESS OF BREATH Last Admin: 12/14/18 21:06 Dose: 1 amp Enoxaparin Sodium (Lovenox -) 40 mg SQ DAILY VARSHA Last Admin: 12/15/18 11:59 Dose: Not Given Azithromycin 250 mg/ Dextrose 250 mls @ 250 mls/hr IVPB DAILY VARSHA Last Admin: 12/15/18 11:59 Dose: 250 mls/hr Ceftriaxone Sodium 1 gm/ (Dextrose) 50 mls @ 100 mls/hr IVPB DAILY [facility]; Protocol Last Admin: 12/15/18 11:58 Dose: 100 mls/hr Methylprednisolone Sodium Succinate (Solu-Medrol -) 40 mg IVPUSH Q8H-IV VARSHA Last Admin: 12/15/18 17:35 Dose: 40 mg Ondansetron HCl (Zofran Injection) 4 mg IVPUSH Q6H PRN PRN Reason: NAUSEA - Objective Vital Signs: Vital Signs Temperature 99.0 F 12/15/18 17:10 Pulse Rate 81 12/15/18 17:10 Respiratory Rate 20 12/15/18 17:10 Blood Pressure 132/77 12/15/18 17:10 O2 Sat by Pulse Oximetry (%) 98 12/15/18 09:09 Labs: CBC, BMP 12/14/18 07:05 12/14/18 07:05 Problem List - Problems (1) Asthma exacerbation Code(s): J45.901 - UNSPECIFIED ASTHMA WITH (ACUTE) EXACERBATION Qualifiers: Asthma severity: severe Asthma persistence: persistent Qualified Code(s) : J45.51 - Severe persistent asthma with (acute) exacerbation (2) HTN (hypertension) Code(s): I10 - ESSENTIAL (PRIMARY) HYPERTENSION (3) Heroin abuse Code(s): F11.10 - OPIOID ABUSE, UNCOMPLICATED
[2018-12-15] MEDS: ALBUTEROL SO4 2.5/IPRATROPIUM 0.5 INH SOL 3 ML VIAL.NEB. NEB PRN (20:16)
--- NOTE | 2018-12-15 22:39 | PN ---
Progress Note, Physician History of Present Illness: No new complaints - Current Medication List Current Medications: Active Medications Acetaminophen (Tylenol -) 650 mg PO Q6H PRN PRN Reason: PAIN Albuterol/Ipratropium (Duoneb -) 1 amp NEB Q6H PRN PRN Reason: SHORTNESS OF BREATH Last Admin: 12/15/18 20:16 Dose: 1 amp Enoxaparin Sodium (Lovenox -) 40 mg SQ DAILY [facility] Last Admin: 12/15/18 11:59 Dose: Not Given Azithromycin 250 mg/ Dextrose 250 mls @ 250 mls/hr IVPB DAILY [facility] Last Admin: 12/15/18 11:59 Dose: 250 mls/hr Ceftriaxone Sodium 1 gm/ (Dextrose) 50 mls @ 100 mls/hr IVPB DAILY [facility]; Protocol Last Admin: 12/15/18 11:58 Dose: 100 mls/hr Methylprednisolone Sodium Succinate (Solu-Medrol -) 40 mg IVPUSH Q8H-IV [facility] Last Admin: 12/15/18 17:35 Dose: 40 mg Ondansetron HCl (Zofran Injection) 4 mg IVPUSH Q6H PRN PRN Reason: NAUSEA - Objective Vital Signs: Vital Signs Temperature 99.0 F 12/15/18 17:10 Pulse Rate 81 12/15/18 17:10 Respiratory Rate 20 12/15/18 17:10 Blood Pressure 132/77 12/15/18 17:10 O2 Sat by Pulse Oximetry (%) 98 12/15/18 21:00 HENT: Yes: WNL Neck: Yes: WNL, Supple Cardiovascular: Yes: WNL, Regular Rate and Rhythm Respiratory: Yes: Wheezes Gastrointestinal: Yes: WNL, Normal Bowel Sounds, Soft Edema: No Labs: CBC, BMP 12/14/18 07:05 12/14/18 07:05 Problem List - Problems (1) Asthma exacerbation Assessment/Plan: Cont IV ceftriaxone/zithro Cont IV solumedrol Cont nebulizers Pulmonary consult noted Code(s): J45.901 - UNSPECIFIED ASTHMA WITH (ACUTE) EXACERBATION Qualifiers: Asthma severity: severe Asthma persistence: persistent Qualified Code(s) : J45.51 - Severe persistent asthma with (acute) exacerbation (2) HTN (hypertension) Assessment/Plan: BP stable At this point will continue to monitor BP Pt not on any meds Code(s): I10 - ESSENTIAL (PRIMARY) HYPERTENSION (3) Heroin abuse Assessment/Plan: Cont methadone taper for heroin withdrawal customer experience specialist consult Code(s): F11.10 - OPIOID ABUSE, UNCOMPLICATED
[2018-12-16] MEDS ORDERED: PT OWN MED DRAWER 7, Y5N ONE (02:19)
[2018-12-16] MEDS: methylPREDNISolone NA SUCC 40 MG/1 ML VIAL IVPUSH SCH (02:46)
[2018-12-16] MEDS: ALBUTEROL SO4 2.5/IPRATROPIUM 0.5 INH SOL 3 ML VIAL.NEB. NEB PRN (07:49)
[2018-12-16] MEDS ORDERED: cefTRIAXone SODIUM 1 GM VIAL ONE (09:34)
[2018-12-16] MEDS ORDERED: DEXTROSE 5%-WATER - 50 ML IVPB ONE (09:34)
--- NOTE | 2018-12-16 09:34 | PN ---
Progress Note, Physician History of Present Illness: pulmonary alert,no distress,sob improving - Current Medication List Current Medications: Active Medications Acetaminophen (Tylenol -) 650 mg PO Q6H PRN PRN Reason: PAIN Last Admin: 12/16/18 00:12 Dose: 650 mg Albuterol/Ipratropium (Duoneb -) 1 amp NEB Q6H PRN PRN Reason: SHORTNESS OF BREATH Last Admin: 12/16/18 07:49 Dose: 1 amp Enoxaparin Sodium (Lovenox -) 40 mg SQ DAILY [facility] Last Admin: 12/15/18 11:59 Dose: Not Given Azithromycin 250 mg/ Dextrose 250 mls @ 250 mls/hr IVPB DAILY [facility] Last Admin: 12/15/18 11:59 Dose: 250 mls/hr Ceftriaxone Sodium 1 gm/ (Dextrose) 50 mls @ 100 mls/hr IVPB DAILY [facility]; Protocol Last Admin: 12/15/18 11:58 Dose: 100 mls/hr Methylprednisolone Sodium Succinate (Solu-Medrol -) 40 mg IVPUSH Q8H-IV [facility] Last Admin: 12/16/18 02:46 Dose: 40 mg Ondansetron HCl (Zofran Injection) 4 mg IVPUSH Q6H PRN PRN Reason: NAUSEA - Objective Vital Signs: Vital Signs Temperature 99.0 F 12/15/18 17:10 Pulse Rate 81 12/15/18 17:10 Respiratory Rate 20 12/16/18 08:30 Blood Pressure 132/77 12/15/18 17:10 O2 Sat by Pulse Oximetry (%) 98 12/16/18 08:30 Constitutional: Yes: Well Nourished, Calm Eyes: Yes: WNL HENT: Yes: WNL Neck: Yes: WNL Cardiovascular: Yes: Regular Rate and Rhythm, S1, S2 Respiratory: Yes: Wheezes (few scattered wheezes) Gastrointestinal: Yes: Normal Bowel Sounds, Soft Extremities: Yes: WNL Edema: No Labs: Assessment/Plan Problem List - Problems (1) Asthma exacerbation Code(s): J45.901 - UNSPECIFIED ASTHMA WITH (ACUTE) EXACERBATION Qualifiers: Asthma severity: severe Asthma persistence: persistent Qualified Code(s) : J45.51 - Severe persistent asthma with (acute) exacerbation (2) Heroin abuse Code(s): F11.10 - OPIOID ABUSE, UNCOMPLICATED (3) Opioid dependence Code(s): F11.20 - OPIOID DEPENDENCE, UNCOMPLICATED Qualifiers: Substance use status: with unspecified opioid-induced disorder Qualified Code(s): F11.29 - Opioid dependence with unspecified opioid-induced disorder Assessment/Plan Acute Asthma Exacerbation improving Heroin Use Opioid Dependent - IV medrol taper, start prednisone 40mg po in am - inhaled bronchodilators standing and PRN - singulair - monitor peak flow - heroin cessation discussed - DVT prophylaxis DR THOMPSON
[2018-12-16] MEDS ORDERED: predniSONE 20 MG TABLET (UD) PO SCH (10:00)
[2018-12-16] MEDS ORDERED: methylPREDNISolone NA SUCC 40 MG/1 ML VIAL IVPUSH SCH (10:00)
[2018-12-16] MEDS: ENOXAPARIN NA (PORCINE) 40 MG/0.4 ML DISP.SYRIN SQ SCH ×2 (11:21→11:35)
[2018-12-16] MEDS: CEFTRIAXONE 1 GM in DEXTROSE 5%-WATER - 50 ML IVPB SCH (11:21)
[2018-12-16] MEDS: AZITHROMYCIN IVPB 250 MG in DEXTROSE 5%-WATER - 250 ML IVPB SCH (11:22)
[2018-12-16] MEDS ORDERED: METHADONE HCL 5 MG TABLET PO STA (11:55)
[2018-12-16] MEDS ORDERED: METHADONE HCL 10 MG TABLET PO ONE (18:00)
[2018-12-17] MEDS ORDERED: predniSONE 20 MG TABLET (UD) PO SCH (10:00)
== END 2018-12-16 15:32 | disposition left against medical advice (07) | DRG 141 ==
LOC: JER 05:46 → JERBED 09:20 → J4S 15:50
PROVIDERS: ADMIT Internal Medicine; ATTEND Internal Medicine
PROC: 3E0F7GC Introduction of Other Therapeutic Substance into Respiratory Tract, Via Natural or Artificial Opening (ICD-10-PCS; principal; 2018-12-14)
DX: J45.51 Severe persistent asthma with (acute) exacerbation (principal); F11.20 Opioid dependence, uncomplicated; I10 Essential (primary) hypertension; Z87.891 Personal history of nicotine dependence; F14.10 Cocaine abuse, uncomplicated; F12.10 Cannabis abuse, uncomplicated; F10.10 Alcohol abuse, uncomplicated
CPT/HCPCS: 36415; 71045-TC-FY; 80053; 82550; 83880; 84484; 85025; 93005; 93010; 94640; 99283-25

== ENCOUNTER 2019-04-13 19:08 | Inpatient (IN) | payer OTHER ==
--- NOTE | 2019-04-13 19:34 | PDOC ---
History of Present Illness - General Chief Complaint: Substance Abuse Stated Complaint: INTOX History Source: Patient Exam Limitations: Intoxication - History of Present Illness Initial Comments: 04/13/19 19:31 PCP: Dr. 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 Patient reports being clean for initially 2 days, then 2 weeks, then 4 months. Endorsing nasal heroin use 2-3 hours prior to arrival in the ED. Patient is a frequent flier with recurrent asthma attacks in the setting of intranasal heroin use. Today he felt a bit of tightness in his breathing that resolved spontaneously prior to arrival - he states that he is breathing fine at this time. Patient is today stating that his O2 Sat is usually 88-89%, questionable reliability. Also endorsing nausea and vomiting of unclear duration - brown emesis during exam. Some epigastric pain "just a little pain, nothing big." Denies chest pain, difficulty breathing, diaphoresis, fevers, chills, weakness, trauma, syncope, wheezing, dark or bloody BMs, urinary symptoms, EDWARD. NKDA Meds: Per chart PMH: As above PSH: Denies SHx: Ilicits as above Past History - Travel Traveled outside of the country in the last 30 days: No Close contact w/someone who was outside of country & ill: No - Past Medical History Allergies/Adverse Reactions: Allergies Allergy/AdvReac Type Severity Reaction Status Date / Time No Known Allergies Allergy Verified 04/13/19 20:36 Home Medications: Ambulatory Orders Albuterol Sulfate Inhaler - [Ventolin HFA Inhaler -] 1 - 2 inh PO QID PRN #1 inhaler 05/23/18 Albuterol 0.083% Nebulizer Radha [Ventolin 0.083% Nebulizer Soln -] 1 neb NEB Q4H PRN #30 vial 09/21/18 Budesonide/Formeterol Fumarate [SYMBICORT 80/4.5mcg -] 1 inh PO BID #1 inhaler 10/25/18 Montelukast Na [Singulair -] 10 mg PO HS #30 tablet 10/25/18 cloNIDine HCL [Catapres -] 0.1 mg PO TID #30 tablet 10/25/18 Quetiapine Fumarate [Seroquel -] 50 mg PO HS 11/18/18 Anemia: No Asthma: Yes Cancer: No Cardiac Disorders: No CVA: No COPD: No CHF: No DVT: No Dementia: No Diabetes: No GI Disorders: No Disorders: No HTN: Yes (Tx with Clonidine) Hypercholesterolemia: No Kidney Stones: No Liver Disease: No Seizures: No Thyroid Disease: No - Surgical History Abdominal Surgery: No Appendectomy: No Cardiac Surgery: No Cholecystectomy: No Lung Surgery: No Neurologic Surgery: No Orthopedic Surgery: No - Reproductive History Testicular Surgery: No - Immunization History Td Vaccination: Yes Immunization Up to Date: Yes - Psycho Social/Smoking Cessation Hx Smoking Status: Yes Smoking History: Former smoker Years of Tobacco Use: 40 Have you smoked in the past 12 months: Yes Number of Cigarettes Smoked Daily: 2 If you are a former smoker, when did you quit?: 2017 Cigars Per Day: 0 'Breaking Loose' booklet given: 11/18/18 Hx Alcohol Use: No Drug/Substance Use Hx: Yes Substance Use Type: Alcohol, Cocaine, Heroin, Marijuana Hx Substance Use Treatment: Yes Review of Systems - Review of Systems Able to Perform ROS?: Yes (Patient changes answers) Is the patient limited Turkish proficient: Yes Constitutional: No: Chills, Diaphoresis, Fever, Weakness HEENTM: No: Recent change in vision, Nose Congestion, Throat Pain Respiratory: No: Cough, Shortness of Breath, SOB with Exertion, Wheezing, Hemoptysis Cardiac (ROS): No: Chest Pain, Edema, Irregular Heart Rate, Lightheadedness, Palpitations, Syncope, Chest Tightness ABD/GI: Yes: Nausea, Vomiting. No: Blood Streaked Bowels, Constipated, Diarrhea , Rectal Bleeding, Tarry Stools : No: Burning, Dysuria, Discharge, Frequency Musculoskeletal: No: Back Pain, Neck Pain Integumentary: No: Erythema, Pruritus, Rash Neurological: No: Headache, Numbness, Tingling, Weakness Hematologic/Lymphatic: No: Anemia, Blood Clots, Easy Bleeding All Other Systems: Reviewed and Negative *Physical Exam - Physical Exam 04/13/19 20:47 Afebrile, varying O2Sat depending on level of arousal 79-89, improves to 97% on face mask with nebs Somnolent, tired-appearing heavy-set, malodorous, intermittently falling asleep , actively vomits light brown stomach contents Pinpoint pupils, normal morphologies, red rash across cheeks and nose beyond a malar distribution Tachycardic, sinus rhythm, no mumur appreciated Scattered expiratory wheezes, good air movements, good symmetric chest expansion , slow rate Soft, tender on palpation at epigastrium, non-distended, excoriation at umbilicus WWP, 2+ distal pulses, no clubbing / cyanosis / edema CN grossly intact ED Treatment Course - LABORATORY CBC & Chemistry Diagram: 04/13/19 20:30 04/13/19 20:30 Medical Decision Making - Medical Decision Making 04/13/19 20:55 48yo M pmh of HTN, asthma, COPD, chronic tobacco, chronic heroin usage presenting to the 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 Patient without complaint, recent heroin use. Exam notable for poor O2 Sat, slow RR, mild tachycardia, light brown emesis. Heroin overdose / respiratory depression vs asthma / COPD vs URI / PNA, dehydration, ?coffee ground emesis. - CBC, CMP, Lipase, CP, VBG - Duonebs, then 2L NC - Continuous monitoring - EKG, CXR - Anti-emetic - 1L NS - Pepcid 04/13/19 20:57 - Leukocytosis to 20.2 - DEBORAH 2.8 - Respiratory Acidosis - Hyponatremia - Elevated CK 1738 - Negative troponin - Normal Lipase - CT Chest, CT A/P without contrast - UA, UCx added Dispo: Admit Med/Surg 04/13/19 22:12 - Additional 1L IVF given, HR remains in 110s - Patient is more alert with sat in mid-90s on 2L NC - Now endorsing multiple days of waking up with a non-productive cough and occasional dysuria, poor hydration recently 04/14/19 00:40 - Pt not tachycardic to the 130s, feels warm to the touch - Rectal temp ordered, line backing up, flushed, gravity tubing to be replaced - Influenza swab ordered - CTs Pending official read 04/14/19 00:50 - CT Chest with ?bilateral LL pneumonia vs atelectasis on my read - Vancomycin, Zosyn ordered - 1g Ofirmev - Lactate, BCx ordered - Rectal temp 99.9 04/14/19 02:05 - Patient endorsed to Dr. Diaz, Admitted Tele - Patient also endorsed to Dr. Quinteros night team to follow up official CT reads for any acute findings Discharge - Discharge Information Problems reviewed: Yes Clinical Impression/Diagnosis: Heroin abuse, Acute respiratory acidosis, Acute kidney injury Leukocytosis Qualifiers: Leukocytosis type: unspecified Qualified Code(s): D72.829 - Elevated white blood cell count, unspecified Condition: Guarded - Admission Yes - Follow up/Referral - Patient Discharge Instructions - Post Discharge Activity
[2019-04-13] MEDS ORDERED: SODIUM CHLORIDE 0.9% 500 ML INFUS.BAG IV ONE (20:03)
[2019-04-13] MEDS ORDERED: FAMOTIDINE 20 MG/50 ML IVPB 20 MG/50 ML MG IVPB ONE ×2 (20:03→20:25)
[2019-04-13] MEDS ORDERED: ALBUTEROL SO4 2.5/IPRATROPIUM 0.5 INH SOL 3 ML VIAL.NEB. NEB ONE ×2 (20:03→20:08)
[2019-04-13 20:39] LABS: BASO % 0.5 % (0-2.0); HEMATOCRIT 40.5 % (35.4-49); HEMOGLOBIN 13.2 GM/dL (11.7-16.9); MCH 26.6 pg (25.7-33.7); MCHC 32.7 g/dl (32.0-35.9); MEAN CELL VOLUME 81.4 fl (80-96); MEAN PLT VOLUME 7.8 fl (7.5-11.1); MONO % 7.2 % (3.8-10.2); NEUT % 87.3 % (42.8-82.8); PLATELET COUNT 343 K/MM3 (134-434); RBC 4.98 M/mm3 (4.00-5.60); RDW 14.4 % (11.9-15.9); WHITE BLOOD COUNT 20.2 K/mm3 (4.0-10.0)
[2019-04-13 20:47] LABS: VENOUS PC02 63.1 mmHg (38-52); VENOUS PH 7.23 (7.31-7.41)
[2019-04-13 20:48] LABS: VENOUS PO2 < 49 mmHg (28-48)
[2019-04-13] MEDS ORDERED: METOCLOPRAMIDE HCL INJECTION 10 MG/2 ML VIAL IVPB ONE (21:14)
[2019-04-13 21:21] LABS: ALBUMIN 4.7 g/dl (3.4-5.0); ALK PHOS 98 U/L (45-117); ANION GAP 13 MMOL/L (8-16); BILIRUBIN,TOTAL 0.6 mg/dL (0.2-1); BLOOD UREA NITROGEN 57.6 mg/dL (7-18); CALCIUM 8.3 mg/dL (8.5-10.1); CHLORIDE 92 mmol/L (98-107); CO2 27 mmol/L (21-32); CREATININE 2.8 mg/dL (0.55-1.3); GLUCOSE,RANDOM 111 mg/dL (74-106); LIPASE 91 U/L (73-393); POTASSIUM 5.2 mmol/L (3.5-5.1); SGOT/AST 45 U/L (15-37); SGPT/ALT 34 U/L (13-61); SODIUM 132 mmol/L (136-145); TOT PROT 8.6 g/dl (6.4-8.2)
[2019-04-13] MEDS ORDERED: SODIUM CHLORIDE 1,000 ML IV ONE (21:41)
--- NOTE | 2019-04-13 22:27 | PDOC ---
Documentation entered by Marcella Orlando SCRIBE, acting as scribe for Dylon Leon MD. Dylon Leon MD: This documentation has been prepared by the scribe, Marcella Orlando SCRIBE, under my direction and personally reviewed by me in its entirety. I confirm that the documentation accurately reflects all work, treatment, procedures, and medical decision making performed by me. Attending Attestation - Resident Resident Name: TerrellBandar - ED Attending Attestation I have performed the following: I have examined & evaluated the patient, The case was reviewed & discussed with the resident, I agree w/resident's findings & plan, Exceptions are as noted - HPI HPI: 04/13/19 20:39 The patient is a 48-year-old male with a past medical history significant for polysubstance abuse, HTN, asthma, and COPD (pt states baseline O2 is 88-89) who presents to the emergency department with nausea and vomiting. The patient reports nausea with brown colored emesis and RUQ pain. The patient reports the abdominal pain is not real pain but something. Denies hx of stomach ulcers. Denies diarrhea or urinary problems. Denies cough, leg swelling. The patient reports recent Heroin use was about 8-9:00 today. Allergies: NKDA Social history: History of alcohol, Heroin (inhalation), and cocaine use. - Physicial Exam PE: 04/13/19 20:26 GENERAL: The patient is somnolenet but easily arousable to voice. HEAD: Normocephalic, atraumatic. EYES: +pinpoint pupils. extraocular movements intact, sclera anicteric, conjunctiva clear. ENT: Normal voice, Moist mucous membranes. NECK: Normal range of motion, supple without lymphadenopathy, JVD, or masses. LUNGS: +Scattered wheezing. No crackles or rales. bradypneic HEART: Regular rate and rhythm, normal S1 and S2 without murmur, rub or gallop. ABDOMEN: Soft, mild RLQ tenderness, normoactive bowel sounds. No guarding, no rebound. No masses. EXTREMITIES: Normal range of motion, no edema. NEUROLOGICAL: No facial asymmetry, Normal speech, moving all 4 extremities spontaneously symmetriccally PSYCH: Normal mood, normal affect. - Medical Decision Making 04/13/19 19:52 48ym hx of polycusbstance abuse, copd, htn presents with complain of nausea vomiting for a few hours. vomiting is brown in color. pt endorses mild sob earlie that has since resolvd. upon arival, pt noted to be hypoxic, bradypneic and with pin poin pupils although he was easily arousable by verbal stimulus, he would drift off uickly without stimulus suspect his hypoxia may be copd w/ opiod intoxication will give nebulizer treatment will reasess, if cntinued bradypneic, will give narcan will ck basic labs antiemetic, fluids fo hydation will reasses 04/13/19 21:41 pt noted for shanae with creatine of 2.8 will fluid resuscitate noted for leukocytosis to [address] abdomen/chest to eval for source of hypoxia/abd pain/leukocytosis p started on abx fo suspected pna 04/14/19 1:41 anticipate admission for furthe management awaiting CT results Heart Score/ECG Review - ECG Impressions Comment:: 04/13/19 21:53 Twelve-lead EKG was performed and reviewed by me. There is normal sinus rhythm with a rate of 108 The axis is normal. The intervals are normal. There is normal R wave progression There are no ST or T wave abnormalities. Impression: Sinus tachycardia
[2019-04-13 22:56] LABS: EPI CELLS 11.3 /HPF (0-5/HPF); HYALINE CASTS 36 /lpf (0-8); URINE APPEARANCE CLOUDY; URINE BACTERIA 6.5 /hpf (NEGATIVE); URINE BILIRUBIN NEGATIVE (NEGATIVE); URINE COLOR YELLOW; URINE GLUCOSE (UA) NEGATIVE (NEGATIVE); URINE KETONE NEGATIVE (NEGATIVE); URINE LEUK ESTERASE 1+ (NEGATIVE); URINE NITRITE NEGATIVE (NEGATIVE); URINE PROTEIN 1+ (NEGATIVE); URINE RBC 4 /hpf (0-4); URINE UROBILINOGEN 0.2 mg/dL (0.2-1.0); URINE WBC 60 /hpf (0-5)
[2019-04-14] MEDS ORDERED: PIPERACILLIN/TAZOB 3.375 GM 3.375 GM in DEXTROSE 5%-WATER - 50 ML IVPB ONE (00:48)
[2019-04-14] MEDS ORDERED: VANCOMYCIN 1 GM in D5W (PRE-DOCKED) 1,000 MG/250 ML IVPB ONE (00:48)
[2019-04-14] MEDS ORDERED: ACETAMINOPHEN 1000 MG/100 ML VIAL (NON FORMULARY) IVPB ONE (00:56)
[2019-04-14] MEDS ORDERED: ACETAMINOPHEN INJECTION 100 ML IVPB ONE (01:22)
[2019-04-14] MEDS ORDERED: VANCOMYCIN 1 GRAM (PRE-DOCKED) 1,000 MG/250 ML BAG IVPB ONE (01:22)
[2019-04-14] MEDS ORDERED: PIPERACILLIN/TAZOB 3.375 GM 3.375 GM/50 ML BAG IVPB ONE (01:23)
[2019-04-14] MEDS ORDERED: ALBUTEROL SO4 2.5/IPRATROPIUM 0.5 INH SOL 3 ML VIAL.NEB. NEB PRN (09:19)
[2019-04-14] MEDS ORDERED: PIPERACILLIN/TAZOB 3.375 GM 3.375 GM in DEXTROSE 5%-WATER - 50 ML IVPB SCH ×2 (10:00→10:15)
--- NOTE | 2019-04-14 11:00 | EKG ---
Test Reason : Blood Pressure : / mmHG Vent. Rate : 101 BPM Atrial Rate : 101 BPM P-R Int : 168 ms QRS Dur : 088 ms QT Int : 326 ms P-R-T Axes : 052 015 034 degrees QTc Int : 422 ms SINUS TACHYCARDIA OTHERWISE NORMAL ECG WHEN COMPARED WITH ECG OF 13-APR-2019 21:25, NO SIGNIFICANT CHANGE WAS FOUND Confirmed by MARY WORTHY MD ([id number]) on 04/14/2019 11:00:16 AM Referred By: Confirmed By:MARY WORTHY MD
--- NOTE | 2019-04-14 11:28 | EKG ---
Test Reason : Blood Pressure : / mmHG Vent. Rate : 108 BPM Atrial Rate : 108 BPM P-R Int : 160 ms QRS Dur : 084 ms QT Int : 322 ms P-R-T Axes : 049 011 048 degrees QTc Int : 431 ms SINUS TACHYCARDIA OTHERWISE NORMAL ECG WHEN COMPARED WITH ECG OF 14-DEC-2018 06:44, NO SIGNIFICANT CHANGE WAS FOUND Confirmed by MARY WORTHY MD ([id number]) on 04/14/2019 11:28:27 AM Referred By: Confirmed By:MARY WORTHY MD
[2019-04-14] MEDS: HEPARIN NA (PORCINE) 5,000 UNITS/ML 1ML VIAL SQ SCH ×2 (12:29→22:23)
[2019-04-14] MEDS: methylPREDNISolone NA SUCC 40 MG/1 ML VIAL IVPUSH SCH ×2 (12:29→18:21)
--- NOTE | 2019-04-14 12:40 | CON.ID ---
Consult Consult Specialty:: infectious diseases Referred by:: Reason for Consultation:: back pain,cough - History of Present Illness Chief Complaint: weakness,cough,back pain History of Present Illness: 48yo male with h/o HTN, asthma/COPD, heroin user, smoker who was admitted after using intranasal heroin. Reports some shortness of breath, chest tightness and wheezing. No fevers, chills or sweats. +cough productive of clear sputum. Multiple admissions in the past for asthma exacerbations after heroin use. Has not been using his inhalers. Still smoking. CT chest done showing basilar infiltrates. patient also c/o of severe back pain - History Source History Provided By: Patient Limitations to Obtaining History: No Limitations - Past Medical History Cardio/Vascular: Yes: HTN Pulmonary: Yes: Asthma Psych: Yes: Addictions (heroin) - Past Surgical History Past Surgical History: Yes: None - Alcohol/Substance Use Hx Alcohol Use: No History of Substance Use: reports: Heroin - Smoking History Smoking history: Former smoker Have you smoked in the past 12 months: Yes Aproximately how many cigarettes per day: 2 If you are a former smoker, when did you quit?: 2017 - Social History ADL: Independent Occupation: Unemployed History of Recent Travel: No Home Medications - Allergies Allergies/Adverse Reactions: Allergies Allergy/AdvReac Type Severity Reaction Status Date / Time No Known Allergies Allergy Verified 04/13/19 20:36 - Home Medications Home Medications: Ambulatory Orders Albuterol Sulfate Inhaler - [Ventolin HFA Inhaler -] 1 - 2 inh PO QID PRN #1 inhaler 05/23/18 Albuterol 0.083% Nebulizer Radha [Ventolin 0.083% Nebulizer Soln -] 1 neb NEB Q4H PRN #30 vial 09/21/18 Budesonide/Formeterol Fumarate [SYMBICORT 80/4.5mcg -] 1 inh PO BID #1 inhaler 10/25/18 Montelukast Na [Singulair -] 10 mg PO HS #30 tablet 10/25/18 cloNIDine HCL [Catapres -] 0.1 mg PO TID #30 tablet 10/25/18 Quetiapine Fumarate [Seroquel -] 50 mg PO HS 11/18/18 Review of Systems - Review of Systems Constitutional: reports: Fever Eyes: reports: No Symptoms HENT: reports: No Symptoms Neck: reports: No Symptoms Cardiovascular: reports: No Symptoms Respiratory: reports: Cough, SOB Gastrointestinal: reports: No Symptoms Genitourinary: reports: No Symptoms Musculoskeletal: reports: Back Pain Neurological: reports: No Symptoms Endocrine: reports: No Symptoms Hematology/Lymphatic: reports: No Symptoms Psychiatric: reports: No Symptoms Physical Exam Vital Signs: Vital Signs Temperature 98 F 04/14/19 10:39 Pulse Rate 100 H 04/14/19 10:39 Respiratory Rate 14 04/14/19 06:58 Blood Pressure 129/73 04/14/19 10:39 O2 Sat by Pulse Oximetry (%) 97 04/14/19 10:39 Constitutional: Yes: Well Nourished, Calm, Mild Distress Eyes: Yes: Conjunctiva Clear HENT: Yes: Atraumatic, Normocephalic Cardiovascular: Yes: Regular Rate and Rhythm Respiratory: Yes: Regular, CTA Bilaterally Gastrointestinal: Yes: Normal Bowel Sounds, Soft Musculoskeletal: Yes: Back Pain Extremities: Yes: WNL Neurological: Yes: Alert, Oriented Psychiatric: Yes: Alert, Oriented Labs: CBC, BMP 04/13/19 20:30 04/13/19 20:30 Imaging - Results Chest X-ray: Report Reviewed, Image Reviewed Cat Scan: Report Reviewed, Image Reviewed Assessment/Plan roblem List - Problems (1) Acute exacerbation of chronic obstructive pulmonary disease (COPD) Code(s): J44.1 - CHRONIC OBSTRUCTIVE PULMONARY DISEASE W (ACUTE) EXACERBATION (2) HTN (hypertension) Code(s): I10 - ESSENTIAL (PRIMARY) HYPERTENSION (3) Hypoxia Code(s): R09.02 - HYPOXEMIA (4) Mediastinal adenopathy Code(s): R59.0 - LOCALIZED ENLARGED LYMPH NODES (5) Acute respiratory failure with hypoxia and hypercarbia Code(s): J96.01 - ACUTE RESPIRATORY FAILURE WITH HYPOXIA; J96.02 - ACUTE RESPIRATORY FAILURE WITH HYPERCAPNIA (6) Asthma exacerbation Code(s): J45.901 - UNSPECIFIED ASTHMA WITH (ACUTE) EXACERBATION Qualifiers: Asthma severity: severe Asthma persistence: persistent Qualified Code(s) : J45.51 - Severe persistent asthma with (acute) exacerbation Assessment/Plan Problem List - Problems (1) Pneumonia Code(s): J18.9 - PNEUMONIA, UNSPECIFIED ORGANISM Assessment/Plan Acute Hypoxic and Hypercapneic Respiratory Failure Pneumonia Acute Asthma Exacerbation Heroin Abuse HTN Smoker Elevated lactate level plan patient has got vanco and zosyn will continue zosyn await for all results rest as per the team
[2019-04-14] MEDS ORDERED: VANCOMYCIN 1 GRAM (PRE-DOCKED) 1,000 MG/250 ML BAG IVPB SCH (13:00)
--- NOTE | 2019-04-14 13:29 | CON.PULM ---
Consult Consult Specialty:: PULMONARY Referred by:: Dr Diaz Reason for Consultation:: asthma - History of Present Illness Chief Complaint: intoxication History of Present Illness: 48yo male with h/o HTN, asthma/COPD, heroin user, smoker who was admitted after using intranasal heroin. Reports some shortness of breath, chest tightness and wheezing. No fevers, chills or sweats. +cough productive of clear sputum. Multiple admissions in the past for asthma exacerbations after heroin use. Has not been using his inhalers. Still smoking. CT chest done showing basilar infiltrates. - History Source History Provided By: Patient, Medical Record Limitations to Obtaining History: No Limitations - Past Medical History Cardio/Vascular: Yes: HTN Pulmonary: Yes: Asthma Psych: Yes: Addictions (heroin) - Past Surgical History Past Surgical History: Yes: None - Alcohol/Substance Use Hx Alcohol Use: No History of Substance Use: reports: Heroin - Smoking History Smoking history: Former smoker Have you smoked in the past 12 months: Yes Aproximately how many cigarettes per day: 2 If you are a former smoker, when did you quit?: 2017 - Social History ADL: Independent Occupation: Unemployed History of Recent Travel: No Home Medications - Allergies Allergies/Adverse Reactions: Allergies Allergy/AdvReac Type Severity Reaction Status Date / Time No Known Allergies Allergy Verified 04/13/19 20:36 - Home Medications Home Medications: Ambulatory Orders Albuterol Sulfate Inhaler - [Ventolin HFA Inhaler -] 1 - 2 inh PO QID PRN #1 inhaler 05/23/18 Albuterol 0.083% Nebulizer Radha [Ventolin 0.083% Nebulizer Soln -] 1 neb NEB Q4H PRN #30 vial 09/21/18 Budesonide/Formeterol Fumarate [SYMBICORT 80/4.5mcg -] 1 inh PO BID #1 inhaler 10/25/18 Montelukast Na [Singulair -] 10 mg PO HS #30 tablet 10/25/18 cloNIDine HCL [Catapres -] 0.1 mg PO TID #30 tablet 10/25/18 Quetiapine Fumarate [Seroquel -] 50 mg PO HS 11/18/18 Review of Systems - Review of Systems Constitutional: denies: Chills, Fever Eyes: denies: Recent Change in Vision HENT: denies: Nasal Congestion, Throat Pain Neck: denies: Stiffness, Tenderness Cardiovascular: reports: Shortness of Breath. denies: Chest Pain, Edema, Palpitations Respiratory: reports: Cough, Wheezing. denies: Hemoptysis Gastrointestinal: reports: Nausea, Vomiting. denies: Abdominal Pain Genitourinary: denies: Dysuria, Hematuria Neurological: denies: Dizziness, Headache Endocrine: denies: Unexplained Weight Loss Physical Exam Vital Sings: Vital Signs Temperature 98 F 04/14/19 10:39 Pulse Rate 100 H 04/14/19 10:39 Respiratory Rate 14 04/14/19 06:58 Blood Pressure 129/73 04/14/19 10:39 O2 Sat by Pulse Oximetry (%) 97 04/14/19 10:39 Constitutional: Yes: Calm Eyes: Yes: Conjunctiva Clear, EOM Intact HENT: Yes: Atraumatic, Normocephalic Neck: Yes: Supple, Trachea Midline Cardiovascular: Yes: Regular Rate and Rhythm Respiratory: Yes: Rhonchi ...Clubbing: No Gastrointestinal: Yes: Normal Bowel Sounds, Soft. No: Tenderness Musculoskeletal: Yes: Back Pain Edema: No Labs: CBC, BMP 04/13/19 20:30 04/13/19 20:30 Imaging - Results Chest X-ray: Report Reviewed, Image Reviewed Cat Scan: Report Reviewed, Image Reviewed (basilar infiltrates) Problem List - Problems (1) Pneumonia Code(s): J18.9 - PNEUMONIA, UNSPECIFIED ORGANISM Assessment/Plan Acute Hypoxic and Hypercapneic Respiratory Failure Pneumonia Acute Asthma Exacerbation Heroin Abuse HTN Smoker - IV antibiotics - f/u cultures - IV medrol - inhaled bronchodilators standing and PRN - singulair - symbicort BID - O2 to keep Spo2 >90% - smoking/heroin cessation - DVT prophylaxis Thank you for this consult Fletcher Rdz MD
[2019-04-14] MEDS ORDERED: ALBUTEROL SO4 0.083% IH SOL 2.5 MG/3 ML VIAL.NEB. NEB PRN (13:30)
[2019-04-14] MEDS: ALBUTEROL SO4 2.5/IPRATROPIUM 0.5 INH SOL 3 ML VIAL.NEB. NEB SCH ×2 (15:31→20:30)
[2019-04-14 15:45] VITALS: BMI 32.2
[2019-04-14] MEDS ORDERED: PIPERACILLIN/TAZOBACTAM 2.25 GM VIAL IVPB ONE (17:30)
[2019-04-14] MEDS ORDERED: DEXTROSE 5%-WATER - 50 ML IVPB ONE (17:30)
[2019-04-14] MEDS: PIPERACILLIN/TAZOB 2.25 GM 2.25 GM in DEXTROSE 5%-WATER - 50 ML IVPB SCH (18:20)
--- NOTE | 2019-04-14 18:51 | CONSULT ---
Consult Consult Specialty:: Nephrology Reason for Consultation:: DEBORAH - History of Present Illness Chief Complaint: nausea and vomiting History of Present Illness: Pt is a 48 year old male with pmhx of polysubstance abuse, asthma, copd and htn who presents to the ER with nausea and vomiting. He also has been doing heroin and cocaine. He was found to be in DEBORAH and I was called to evaluate him. He denies history of CKD. He denies dysuria or hematuria. He denies nsaid use. He did have a few episodes of vomitnig. - History Source History Provided By: Patient, Medical Record - Past Medical History Cardio/Vascular: Yes: HTN Pulmonary: Yes: Asthma, COPD Psych: Yes: Addictions (heroin) - Past Surgical History Past Surgical History: Yes: None - Alcohol/Substance Use Hx Alcohol Use: No History of Substance Use: reports: Cocaine, Heroin - Smoking History Smoking history: Former smoker Have you smoked in the past 12 months: No Aproximately how many cigarettes per day: 2 If you are a former smoker, when did you quit?: 2017 - Social History ADL: Independent Occupation: Unemployed History of Recent Travel: No Home Medications - Allergies Allergies/Adverse Reactions: Allergies Allergy/AdvReac Type Severity Reaction Status Date / Time No Known Allergies Allergy Verified 04/13/19 20:36 - Home Medications Home Medications: Ambulatory Orders Albuterol Sulfate Inhaler - [Ventolin HFA Inhaler -] 1 - 2 inh PO QID PRN #1 inhaler 05/23/18 Albuterol 0.083% Nebulizer Radha [Ventolin 0.083% Nebulizer Soln -] 1 neb NEB Q4H PRN #30 vial 09/21/18 Budesonide/Formeterol Fumarate [SYMBICORT 80/4.5mcg -] 1 inh PO BID #1 inhaler 10/25/18 Montelukast Na [Singulair -] 10 mg PO HS #30 tablet 10/25/18 cloNIDine HCL [Catapres -] 0.1 mg PO TID #30 tablet 10/25/18 Quetiapine Fumarate [Seroquel -] 50 mg PO HS 11/18/18 Family Medical History Family History: Denies Review of Systems - Review of Systems Constitutional: reports: Malaise Eyes: reports: No Symptoms HENT: reports: No Symptoms Neck: reports: No Symptoms Cardiovascular: reports: No Symptoms Respiratory: reports: Cough, SOB on Exertion Gastrointestinal: reports: Vomiting Genitourinary: reports: No Symptoms Musculoskeletal: reports: No Symptoms Integumentary: reports: No Symptoms Neurological: reports: No Symptoms Endocrine: reports: No Symptoms Hematology/Lymphatic: reports: No Symptoms Psychiatric: reports: No Symptoms Physical Exam Vital Signs: Vital Signs Temperature 98.4 F 04/14/19 17:00 Pulse Rate 102 H 04/14/19 17:00 Respiratory Rate 20 04/14/19 17:00 Blood Pressure 135/85 04/14/19 17:00 O2 Sat by Pulse Oximetry (%) 93 L 04/14/19 15:37 Constitutional: Yes: Calm Eyes: Yes: Conjunctiva Clear HENT: Yes: Atraumatic Neck: Yes: Supple Cardiovascular: Yes: S1, S2 Respiratory: Yes: CTA Bilaterally Gastrointestinal: Yes: Soft Renal/: Yes: WNL Musculoskeletal: Yes: WNL Edema: Yes Edema: LLE: Trace, RLE: Trace Neurological: Yes: Oriented Psychiatric: Yes: Oriented Labs: CBC, BMP 04/13/19 20:30 04/13/19 20:30 Imaging - Results Cat Scan: Report Reviewed Problem List - Problems (1) Acute kidney injury Code(s): N17.9 - ACUTE KIDNEY FAILURE, UNSPECIFIED (2) Heroin abuse Code(s): F11.10 - OPIOID ABUSE, UNCOMPLICATED (3) Leukocytosis Code(s): D72.829 - ELEVATED WHITE BLOOD CELL COUNT, UNSPECIFIED Qualifiers: Leukocytosis type: unspecified Qualified Code(s): D72.829 - Elevated white blood cell count, unspecified Assessment/Plan Laboratory Tests 04/13/19 20:30 VBG pH 7.23 L POC VBG pCO2 63.1 H VBG HCO3 25.7 Current Medications Generic Name Dose Route Start Last Admin Trade Name Freq PRN Reason Stop Dose Admin Albuterol Sulfate 1 amp 04/14/19 13:30 Ventolin 0.083% Nebulizer Soln - NEB Q4H PRN SHORT OF BREATH/WHEEZING Albuterol/Ipratropium 1 amp 04/14/19 16:00 04/14/19 15:31 Duoneb - NEB Not Given RQID VARSHA Budesonide/Formoterol Fumarate 2 puff 04/14/19 22:00 Symbicort 160/4.5mcg - IH BID VARSHA Heparin Sodium (Porcine) 5,000 unit 04/14/19 10:00 04/14/19 12:29 Heparin - SQ 5,000 unit BID VARSHA Administration Vancomycin HCl 1 gm in 200 mls @ 133.333 mls/hr 04/15/19 01:00 Vancomycin 1 Gm Premix - IVPB Q12H VARSHA Piperacillin Sod/Tazobactam 50 mls @ 100 mls/hr 04/14/19 18:00 04/14/19 18:20 Sod 2.25 gm/ Dextrose IVPB 100 mls/hr Q8H-IV VARSHA Administration Protocol Methylprednisolone Sodium Succinate 40 mg 04/14/19 10:00 04/14/19 18:21 Solu-Medrol - IVPUSH 40 mg Q8H-IV VARSHA Administration Montelukast Sodium 10 mg 04/14/19 22:00 Singulair - PO HS VARSHA Impression 1. DEBORAH 2. hyperkalemia 3. copd 4. asthma 5. htn 6. polysubstance abuse - heroin and cocaine 7. 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
[2019-04-14] MEDS ORDERED: SODIUM CHLORIDE 1,000 ML IV SCH ×2 (19:00→22:00)
--- NOTE | 2019-04-14 19:16 | HP ---
Admitting History and Physical - Past Medical History Cardiovascular: Yes: HTN Pulmonary: Yes: Asthma, COPD Psych: Yes: Addictions (heroin) - Past Surgical History Past Surgical History: Yes: None - Smoking History Smoking history: Former smoker Have you smoked in the past 12 months: No Aproximately how many cigarettes per day: 2 If you are a former smoker, when did you quit?: 2017 - Alcohol/Substance Use Hx Alcohol Use: No History of Substance Use: reports: Cocaine, Heroin - Social History ADL: Independent Occupation: Unemployed History of Recent Travel: No Home Medications - Allergies Allergies/Adverse Reactions: Allergies Allergy/AdvReac Type Severity Reaction Status Date / Time No Known Allergies Allergy Verified 04/13/19 20:36 - Home Medications Home Medications: Ambulatory Orders Albuterol Sulfate Inhaler - [Ventolin HFA Inhaler -] 1 - 2 inh PO QID PRN #1 inhaler 05/23/18 Albuterol 0.083% Nebulizer Radha [Ventolin 0.083% Nebulizer Soln -] 1 neb NEB Q4H PRN #30 vial 09/21/18 Budesonide/Formeterol Fumarate [SYMBICORT 80/4.5mcg -] 1 inh PO BID #1 inhaler 10/25/18 Montelukast Na [Singulair -] 10 mg PO HS #30 tablet 10/25/18 cloNIDine HCL [Catapres -] 0.1 mg PO TID #30 tablet 10/25/18 Quetiapine Fumarate [Seroquel -] 50 mg PO HS 11/18/18 Physical Examination Vital Signs: Vital Signs Temperature 98.4 F 04/14/19 17:00 Pulse Rate 102 H 04/14/19 17:00 Respiratory Rate 20 04/14/19 17:00 Blood Pressure 135/85 04/14/19 17:00 O2 Sat by Pulse Oximetry (%) 93 L 04/14/19 15:37 Labs: CBC, BMP 04/13/19 20:30 04/13/19 20:30
[2019-04-14 20:39] LABS: BLOOD UREA NITROGEN 24.2 mg/dL (7-18); CALCIUM 8.4 mg/dL (8.5-10.1); CREATININE 1.1 mg/dL (0.55-1.3)
[2019-04-14] MEDS ORDERED: METHADONE HCL 10 MG TABLET PO ONE (21:35)
[2019-04-14] MEDS: MONTELUKAST NA 10 MG TABLET PO SCH (22:23)
[2019-04-14] MEDS: BUDESONIDE/FORMETEROL FUMARATE 160/4.5 mcg INHALER IH SCH (22:24)
[2019-04-15] MEDS ORDERED: VANCOMYCIN 1 GM PREMIX - 1 GM/200 ML BAG IVPB SCH (01:00)
[2019-04-15] MEDS ORDERED: PIPERACILLIN/TAZOBACTAM 2.25 GM VIAL IVPB ONE ×3 (02:35→16:59)
[2019-04-15] MEDS ORDERED: DEXTROSE 5%-WATER - 50 ML IVPB ONE ×3 (02:36→16:59)
[2019-04-15] MEDS: PIPERACILLIN/TAZOB 2.25 GM 2.25 GM in DEXTROSE 5%-WATER - 50 ML IVPB SCH ×3 (02:41→17:38)
[2019-04-15] MEDS: methylPREDNISolone NA SUCC 40 MG/1 ML VIAL IVPUSH SCH ×3 (02:42→17:38)
[2019-04-15 06:42] LABS: BASO % 0.1 % (0-2.0); HEMATOCRIT 29.4 % (35.4-49); HEMOGLOBIN 9.9 GM/dL (11.7-16.9); LYMPH % 5.8 % (8-40); MCH 27.2 pg (25.7-33.7); MCHC 33.6 g/dl (32.0-35.9); MEAN PLT VOLUME 7.8 fl (7.5-11.1); MONO % 4.4 % (3.8-10.2); NEUT % 89.7 % (42.8-82.8); PLATELET COUNT 244 K/MM3 (134-434); RBC 3.64 M/mm3 (4.00-5.60); RDW 13.7 % (11.9-15.9); WHITE BLOOD COUNT 7.7 K/mm3 (4.0-10.0)
[2019-04-15 06:58] LABS: ALBUMIN 3.4 g/dl (3.4-5.0); BILIRUBIN,TOTAL 0.6 mg/dL (0.2-1); BLOOD UREA NITROGEN 16.4 mg/dL (7-18); CALCIUM 8.7 mg/dL (8.5-10.1); CREATININE 0.7 mg/dL (0.55-1.3); POTASSIUM 4.5 mmol/L (3.5-5.1); TOT PROT 6.5 g/dl (6.4-8.2)
[2019-04-15] MEDS: ALBUTEROL SO4 2.5/IPRATROPIUM 0.5 INH SOL 3 ML VIAL.NEB. NEB SCH ×4 (07:30→20:40)
[2019-04-15] MEDS: HEPARIN NA (PORCINE) 5,000 UNITS/ML 1ML VIAL SQ SCH ×2 (09:51→21:40)
[2019-04-15] MEDS: BUDESONIDE/FORMETEROL FUMARATE 160/4.5 mcg INHALER IH SCH ×2 (09:52→21:41)
--- NOTE | 2019-04-15 10:27 | PN ---
Progress Note, Physician History of Present Illness: pulmonary alert,feeling better,sob improving - Current Medication List Current Medications: Active Medications Albuterol Sulfate (Ventolin 0.083% Nebulizer Soln -) 1 amp NEB Q4H PRN PRN Reason: SHORT OF BREATH/WHEEZING Albuterol/Ipratropium (Duoneb -) 1 amp NEB RQID VARSHA Last Admin: 04/15/19 07:30 Dose: 1 amp Budesonide/Formoterol Fumarate (Symbicort 160/4.5mcg -) 2 puff IH BID VARSHA Last Admin: 04/15/19 09:52 Dose: 2 puff Heparin Sodium (Porcine) (Heparin -) 5,000 unit SQ BID VARSHA Last Admin: 04/15/19 09:51 Dose: 5,000 unit Vancomycin HCl (Vancomycin 1 Gm Premix -) 1 gm in 200 mls @ 133.333 mls/hr IVPB Q12H VARSHA Piperacillin Sod/Tazobactam (Sod 2.25 gm/ Dextrose) 50 mls @ 100 mls/hr IVPB Q8H-IV VARSHA; Protocol Last Admin: 04/15/19 09:52 Dose: 100 mls/hr Sodium Chloride (Normal Saline -) 1,000 mls @ 75 mls/hr IV ASDIR VARSHA Last Admin: 04/14/19 22:50 Dose: 75 mls/hr Methylprednisolone Sodium Succinate (Solu-Medrol -) 40 mg IVPUSH Q8H-IV VARSHA Last Admin: 04/15/19 09:51 Dose: 40 mg Montelukast Sodium (Singulair -) 10 mg PO HS VARSHA Last Admin: 04/14/19 22:23 Dose: 10 mg - Objective Vital Signs: Vital Signs Temperature 98.2 F 04/15/19 05:00 Pulse Rate 76 04/15/19 05:00 Respiratory Rate 18 04/15/19 05:00 Blood Pressure 128/74 04/15/19 05:00 O2 Sat by Pulse Oximetry (%) 94 L 04/14/19 21:00 Constitutional: Yes: Well Nourished, Calm Eyes: Yes: WNL HENT: Yes: WNL Neck: Yes: WNL Cardiovascular: Yes: Regular Rate and Rhythm, S1, S2 Respiratory: Yes: Rhonchi (bibasilar crackles) Gastrointestinal: Yes: Normal Bowel Sounds, Soft Extremities: Yes: WNL Edema: No Labs: CBC, BMP 04/15/19 05:45 04/15/19 05:45 Problem List - Problems (1) Acute exacerbation of chronic obstructive pulmonary disease (COPD) Code(s): J44.1 - CHRONIC OBSTRUCTIVE PULMONARY DISEASE W (ACUTE) EXACERBATION (2) HTN (hypertension) Code(s): I10 - ESSENTIAL (PRIMARY) HYPERTENSION (3) Hypoxia Code(s): R09.02 - HYPOXEMIA (4) Mediastinal adenopathy Code(s): R59.0 - LOCALIZED ENLARGED LYMPH NODES (5) Acute respiratory failure with hypoxia and hypercarbia Code(s): J96.01 - ACUTE RESPIRATORY FAILURE WITH HYPOXIA; J96.02 - ACUTE RESPIRATORY FAILURE WITH HYPERCAPNIA (6) Asthma exacerbation Code(s): J45.901 - UNSPECIFIED ASTHMA WITH (ACUTE) EXACERBATION Qualifiers: Asthma severity: severe Asthma persistence: persistent Qualified Code(s) : J45.51 - Severe persistent asthma with (acute) exacerbation Assessment/Plan Problem List - Problems (1) Pneumonia Code(s): J18.9 - PNEUMONIA, UNSPECIFIED ORGANISM Assessment/Plan Acute Hypoxic and Hypercapneic Respiratory Failure Pneumonia Acute Asthma Exacerbation Heroin Abuse HTN Smoker Elevated lactate level - IV antibiotics - IV medrol - inhaled bronchodilators standing and PRN - singulair - symbicort BID - O2 to keep Spo2 >90% - smoking/heroin cessation - DVT prophylaxis - trend lactate DR THOMPSON
--- NOTE | 2019-04-15 14:53 | PN ---
Progress Note, Physician History of Present Illness: improving breathing better - Current Medication List Current Medications: Active Medications Albuterol Sulfate (Ventolin 0.083% Nebulizer Soln -) 1 amp NEB Q4H PRN PRN Reason: SHORT OF BREATH/WHEEZING Albuterol/Ipratropium (Duoneb -) 1 amp NEB RQID VARSHA Last Admin: 04/15/19 11:35 Dose: 1 amp Budesonide/Formoterol Fumarate (Symbicort 160/4.5mcg -) 2 puff IH BID VARSHA Last Admin: 04/15/19 09:52 Dose: 2 puff Heparin Sodium (Porcine) (Heparin -) 5,000 unit SQ BID VARSHA Last Admin: 04/15/19 09:51 Dose: 5,000 unit Vancomycin HCl (Vancomycin 1 Gm Premix -) 1 gm in 200 mls @ 133.333 mls/hr IVPB Q12H VARSHA Piperacillin Sod/Tazobactam (Sod 2.25 gm/ Dextrose) 50 mls @ 100 mls/hr IVPB Q8H-IV VARSHA; Protocol Last Admin: 04/15/19 09:52 Dose: 100 mls/hr Sodium Chloride (Normal Saline -) 1,000 mls @ 75 mls/hr IV ASDIR VARSHA Last Admin: 04/14/19 22:50 Dose: 75 mls/hr Methylprednisolone Sodium Succinate (Solu-Medrol -) 40 mg IVPUSH Q8H-IV VARSHA Last Admin: 04/15/19 09:51 Dose: 40 mg Montelukast Sodium (Singulair -) 10 mg PO HS VARSHA Last Admin: 04/14/19 22:23 Dose: 10 mg - Objective Vital Signs: Vital Signs Temperature 97.8 F 04/15/19 09:00 Pulse Rate 93 H 04/15/19 09:00 Respiratory Rate 18 04/15/19 09:00 Blood Pressure 129/72 04/15/19 09:00 O2 Sat by Pulse Oximetry (%) 94 L 04/15/19 09:00 Constitutional: Yes: No Distress, Calm Cardiovascular: Yes: S1, S2 Respiratory: Yes: Regular, CTA Bilaterally Gastrointestinal: Yes: Normal Bowel Sounds, Soft Musculoskeletal: Yes: WNL Extremities: Yes: WNL Neurological: Yes: Alert, Oriented Psychiatric: Yes: Alert, Oriented Labs: CBC, BMP 04/15/19 05:45 04/15/19 05:45 Assessment/Plan roblem List - Problems (1) Acute exacerbation of chronic obstructive pulmonary disease (COPD) Code(s): J44.1 - CHRONIC OBSTRUCTIVE PULMONARY DISEASE W (ACUTE) EXACERBATION (2) HTN (hypertension) Code(s): I10 - ESSENTIAL (PRIMARY) HYPERTENSION (3) Hypoxia Code(s): R09.02 - HYPOXEMIA (4) Mediastinal adenopathy Code(s): R59.0 - LOCALIZED ENLARGED LYMPH NODES (5) Acute respiratory failure with hypoxia and hypercarbia Code(s): J96.01 - ACUTE RESPIRATORY FAILURE WITH HYPOXIA; J96.02 - ACUTE RESPIRATORY FAILURE WITH HYPERCAPNIA (6) Asthma exacerbation Code(s): J45.901 - UNSPECIFIED ASTHMA WITH (ACUTE) EXACERBATION Qualifiers: Asthma severity: severe Asthma persistence: persistent Qualified Code(s) : J45.51 - Severe persistent asthma with (acute) exacerbation Assessment/Plan Problem List - Problems (1) Pneumonia Code(s): J18.9 - PNEUMONIA, UNSPECIFIED ORGANISM Assessment/Plan Acute Hypoxic and Hypercapneic Respiratory Failure Pneumonia Acute Asthma Exacerbation Heroin Abuse HTN Smoker Elevated lactate level plan continue abx resp support wbc has normalized rest as per the team
--- NOTE | 2019-04-15 16:12 | PN ---
Progress Note, Physician History of Present Illness: Pt seen and examined at bedside. He is awake and alert. He denies shortness of breath. - Current Medication List Current Medications: Active Medications Albuterol Sulfate (Ventolin 0.083% Nebulizer Soln -) 1 amp NEB Q4H PRN PRN Reason: SHORT OF BREATH/WHEEZING Albuterol/Ipratropium (Duoneb -) 1 amp NEB RQID VARSHA Last Admin: 04/15/19 11:35 Dose: 1 amp Budesonide/Formoterol Fumarate (Symbicort 160/4.5mcg -) 2 puff IH BID VARSHA Last Admin: 04/15/19 09:52 Dose: 2 puff Heparin Sodium (Porcine) (Heparin -) 5,000 unit SQ BID VARSHA Last Admin: 04/15/19 09:51 Dose: 5,000 unit Vancomycin HCl (Vancomycin 1 Gm Premix -) 1 gm in 200 mls @ 133.333 mls/hr IVPB Q12H VARSHA Piperacillin Sod/Tazobactam (Sod 2.25 gm/ Dextrose) 50 mls @ 100 mls/hr IVPB Q8H-IV VARSHA; Protocol Last Admin: 04/15/19 09:52 Dose: 100 mls/hr Sodium Chloride (Normal Saline -) 1,000 mls @ 75 mls/hr IV ASDIR VARSHA Last Admin: 04/14/19 22:50 Dose: 75 mls/hr Methylprednisolone Sodium Succinate (Solu-Medrol -) 40 mg IVPUSH Q8H-IV VARSHA Last Admin: 04/15/19 09:51 Dose: 40 mg Montelukast Sodium (Singulair -) 10 mg PO HS VARSHA Last Admin: 04/14/19 22:23 Dose: 10 mg - Objective Vital Signs: Vital Signs Temperature 98.1 F 04/15/19 14:00 Pulse Rate 84 04/15/19 14:00 Respiratory Rate 18 04/15/19 09:00 Blood Pressure 132/88 04/15/19 14:00 O2 Sat by Pulse Oximetry (%) 94 L 04/15/19 09:00 Constitutional: Yes: Calm Eyes: Yes: Conjunctiva Clear HENT: Yes: Atraumatic Neck: Yes: Supple Cardiovascular: Yes: S1, S2 Respiratory: Yes: CTA Bilaterally Gastrointestinal: Yes: Soft Genitourinary: Yes: WNL Musculoskeletal: Yes: WNL Edema: No Neurological: Yes: Oriented Psychiatric: Yes: Oriented Labs: CBC, BMP 04/15/19 05:45 04/15/19 05:45 Problem List - Problems (1) Acute kidney injury Code(s): N17.9 - ACUTE KIDNEY FAILURE, UNSPECIFIED (2) Heroin abuse Code(s): F11.10 - OPIOID ABUSE, UNCOMPLICATED (3) Leukocytosis Code(s): D72.829 - ELEVATED WHITE BLOOD CELL COUNT, UNSPECIFIED Qualifiers: Leukocytosis type: unspecified Qualified Code(s): D72.829 - Elevated white blood cell count, unspecified Assessment/Plan Current Medications Generic Name Dose Route Start Last Admin Trade Name Freq PRN Reason Stop Dose Admin Albuterol Sulfate 1 amp 04/14/19 13:30 Ventolin 0.083% Nebulizer Soln - NEB Q4H PRN SHORT OF BREATH/WHEEZING Albuterol/Ipratropium 1 amp 04/14/19 16:00 04/15/19 11:35 Duoneb - NEB 1 amp RQID VARSHA Administration Budesonide/Formoterol Fumarate 2 puff 04/14/19 22:00 04/15/19 09:52 Symbicort 160/4.5mcg - IH 2 puff BID VARSHA Administration Heparin Sodium (Porcine) 5,000 unit 04/14/19 10:00 04/15/19 09:51 Heparin - SQ 5,000 unit BID VARSHA Administration Vancomycin HCl 1 gm in 200 mls @ 133.333 mls/hr 04/15/19 01:00 Vancomycin 1 Gm Premix - IVPB Q12H VARSHA Piperacillin Sod/Tazobactam 50 mls @ 100 mls/hr 04/14/19 18:00 04/15/19 09:52 Sod 2.25 gm/ Dextrose IVPB 100 mls/hr Q8H-IV VARSHA Administration Protocol Sodium Chloride 1,000 mls @ 75 mls/hr 04/14/19 22:00 04/14/19 22:50 Normal Saline - IV 75 mls/hr ASDIR VARSHA Administration Methylprednisolone Sodium Succinate 40 mg 04/14/19 10:00 04/15/19 09:51 Solu-Medrol - IVPUSH 40 mg Q8H-IV VARSHA Administration Montelukast Sodium 10 mg 04/14/19 22:00 04/14/19 22:23 Singulair - PO 10 mg HS VARSHA Administration Impression 1. DEBORAH 2. hyperkalemia 3. copd 4. asthma 5. htn 6. polysubstance abuse - heroin and cocaine 7. active smoker Plan - renal function improved - deborah likely from pre-renal disease - change fluids to 1/2 ns - potassium is improved - abx per medical team - follow cultures
[2019-04-15] MEDS ORDERED: SODIUM CHLORIDE 0.45% 1,000 ML IV SCH (16:15)
[2019-04-15] MEDS ORDERED: METHADONE HCL 10 MG TABLET PO ONE (18:40)
--- NOTE | 2019-04-15 18:40 | PN ---
Progress Note, Physician - Current Medication List Current Medications: Active Medications Albuterol Sulfate (Ventolin 0.083% Nebulizer Soln -) 1 amp NEB Q4H PRN PRN Reason: SHORT OF BREATH/WHEEZING Albuterol/Ipratropium (Duoneb -) 1 amp NEB RQID VARSHA Last Admin: 04/15/19 15:35 Dose: 1 amp Budesonide/Formoterol Fumarate (Symbicort 160/4.5mcg -) 2 puff IH BID VARSHA Last Admin: 04/15/19 09:52 Dose: 2 puff Heparin Sodium (Porcine) (Heparin -) 5,000 unit SQ BID VARSHA Last Admin: 04/15/19 09:51 Dose: 5,000 unit Vancomycin HCl (Vancomycin 1 Gm Premix -) 1 gm in 200 mls @ 133.333 mls/hr IVPB Q12H VARSHA Piperacillin Sod/Tazobactam (Sod 2.25 gm/ Dextrose) 50 mls @ 100 mls/hr IVPB Q8H-IV VARSHA; Protocol Last Admin: 04/15/19 17:38 Dose: 100 mls/hr Sodium Chloride (1/2 Normal Saline) 1,000 mls @ 50 mls/hr IV ASDIR VARSHA Stop: 04/16/19 16:12 Last Admin: 04/15/19 17:37 Dose: 50 mls/hr Methylprednisolone Sodium Succinate (Solu-Medrol -) 40 mg IVPUSH Q8H-IV VARSHA Last Admin: 04/15/19 17:38 Dose: 40 mg Montelukast Sodium (Singulair -) 10 mg PO HS VARSHA Last Admin: 04/14/19 22:23 Dose: 10 mg - Objective Vital Signs: Vital Signs Temperature 98.1 F 04/15/19 14:00 Pulse Rate 84 04/15/19 14:00 Respiratory Rate 18 04/15/19 09:00 Blood Pressure 132/88 04/15/19 14:00 O2 Sat by Pulse Oximetry (%) 94 L 04/15/19 09:00 Labs: CBC, BMP 04/15/19 05:45 04/15/19 05:45
[2019-04-15] MEDS: MONTELUKAST NA 10 MG TABLET PO SCH (21:40)
[2019-04-16] MEDS ORDERED: DEXTROSE 5%-WATER - 50 ML IVPB ONE ×3 (03:32→17:08)
[2019-04-16] MEDS ORDERED: PIPERACILLIN/TAZOBACTAM 2.25 GM VIAL IVPB ONE ×3 (03:32→17:08)
[2019-04-16] MEDS: PIPERACILLIN/TAZOB 2.25 GM 2.25 GM in DEXTROSE 5%-WATER - 50 ML IVPB SCH ×3 (03:38→17:10)
[2019-04-16] MEDS: methylPREDNISolone NA SUCC 40 MG/1 ML VIAL IVPUSH SCH ×3 (03:38→17:10)
[2019-04-16 07:18] LABS: ALBUMIN 3.4 g/dl (3.4-5.0); BILIRUBIN,TOTAL 0.5 mg/dL (0.2-1); BLOOD UREA NITROGEN 19.9 mg/dL (7-18); CALCIUM 8.8 mg/dL (8.5-10.1); CREATININE 0.8 mg/dL (0.55-1.3); POTASSIUM 4.5 mmol/L (3.5-5.1); TOT PROT 6.7 g/dl (6.4-8.2)
[2019-04-16] MEDS: ALBUTEROL SO4 2.5/IPRATROPIUM 0.5 INH SOL 3 ML VIAL.NEB. NEB SCH ×4 (07:40→20:50)
[2019-04-16 09:11] LABS: PH,URINE 7.5 (5.0-8.0); URINE APPEARANCE CLEAR; URINE BILIRUBIN NEGATIVE (NEGATIVE); URINE COLOR YELLOW; URINE GLUCOSE (UA) 2+ (NEGATIVE); URINE KETONE NEGATIVE (NEGATIVE); URINE LEUK ESTERASE NEGATIVE (NEGATIVE); URINE NITRITE NEGATIVE (NEGATIVE); URINE PROTEIN NEGATIVE (NEGATIVE); URINE UROBILINOGEN 0.2 mg/dL (0.2-1.0)
[2019-04-16] MEDS: HEPARIN NA (PORCINE) 5,000 UNITS/ML 1ML VIAL SQ SCH ×2 (10:22→22:04)
[2019-04-16] MEDS: BUDESONIDE/FORMETEROL FUMARATE 160/4.5 mcg INHALER IH SCH ×2 (10:22→22:03)
--- NOTE | 2019-04-16 11:25 | PN ---
Progress Note (short form) - Note Progress Note: PULMONARY RESTING/APPEARS STABLE VSS/AFEBRILE Constitutional: Yes: Well Nourished, Calm Eyes: Yes: WNL HENT: Yes: WNL Neck: Yes: WNL Cardiovascular: Yes: Regular Rate and Rhythm, S1, S2 Respiratory: Yes: Rhonchi (bibasilar crackles) Gastrointestinal: Yes: Normal Bowel Sounds, Soft Extremities: Yes: WNL Edema: No Labs/MEDS/IMAGES /NOTED Acute Hypoxic and Hypercapneic Respiratory Failure Pneumonia Acute Asthma Exacerbation Heroin Abuse HTN Smoker Elevated lactate level - IV antibiotics - IV medrol - inhaled bronchodilators standing and PRN - singulair - symbicort BID - O2 to keep Spo2 >90% - smoking/heroin cessation - DVT prophylaxis - trend lactate - will screen for influenza Gal ZHU MD
--- NOTE | 2019-04-16 18:08 | PN ---
Progress Note, Physician History of Present Illness: Pt seen and examined at bedside. he is awake and alert. He denies shortness of breath. - Current Medication List Current Medications: Active Medications Albuterol Sulfate (Ventolin 0.083% Nebulizer Soln -) 1 amp NEB Q4H PRN PRN Reason: SHORT OF BREATH/WHEEZING Albuterol/Ipratropium (Duoneb -) 1 amp NEB RQID VARSHA Last Admin: 04/16/19 15:49 Dose: Not Given Budesonide/Formoterol Fumarate (Symbicort 160/4.5mcg -) 2 puff IH BID VARSHA Last Admin: 04/16/19 10:22 Dose: 2 puff Heparin Sodium (Porcine) (Heparin -) 5,000 unit SQ BID VARSHA Last Admin: 04/16/19 10:22 Dose: 5,000 unit Vancomycin HCl (Vancomycin 1 Gm Premix -) 1 gm in 200 mls @ 133.333 mls/hr IVPB Q12H VARSHA Piperacillin Sod/Tazobactam (Sod 2.25 gm/ Dextrose) 50 mls @ 100 mls/hr IVPB Q8H-IV VARSHA; Protocol Last Admin: 04/16/19 17:10 Dose: 100 mls/hr Methylprednisolone Sodium Succinate (Solu-Medrol -) 40 mg IVPUSH Q8H-IV VARSHA Last Admin: 04/16/19 17:10 Dose: 40 mg Montelukast Sodium (Singulair -) 10 mg PO HS VARSHA Last Admin: 04/15/19 21:40 Dose: 10 mg - Objective Vital Signs: Vital Signs Temperature 98.3 F 04/16/19 13:57 Pulse Rate 85 04/16/19 13:57 Respiratory Rate 20 04/16/19 09:00 Blood Pressure 135/79 04/16/19 13:57 O2 Sat by Pulse Oximetry (%) 97 04/16/19 09:00 Constitutional: Yes: Calm Eyes: Yes: Conjunctiva Clear HENT: Yes: Atraumatic Neck: Yes: Supple Cardiovascular: Yes: S1, S2 Respiratory: Yes: CTA Bilaterally Gastrointestinal: Yes: Soft Genitourinary: Yes: WNL Musculoskeletal: Yes: WNL Edema: No Neurological: Yes: Oriented Psychiatric: Yes: Oriented Labs: CBC, BMP 04/15/19 05:45 04/16/19 06:14 Problem List - Problems (1) Acute kidney injury Code(s): N17.9 - ACUTE KIDNEY FAILURE, UNSPECIFIED (2) Heroin abuse Code(s): F11.10 - OPIOID ABUSE, UNCOMPLICATED (3) Leukocytosis Code(s): D72.829 - ELEVATED WHITE BLOOD CELL COUNT, UNSPECIFIED Qualifiers: Leukocytosis type: unspecified Qualified Code(s): D72.829 - Elevated white blood cell count, unspecified Assessment/Plan Current Medications Generic Name Dose Route Start Last Admin Trade Name Freq PRN Reason Stop Dose Admin Albuterol Sulfate 1 amp 04/14/19 13:30 Ventolin 0.083% Nebulizer Soln - NEB Q4H PRN SHORT OF BREATH/WHEEZING Albuterol/Ipratropium 1 amp 04/14/19 16:00 04/16/19 15:49 Duoneb - NEB Not Given RQID VARSHA Budesonide/Formoterol Fumarate 2 puff 04/14/19 22:00 04/16/19 10:22 Symbicort 160/4.5mcg - IH 2 puff BID VARSHA Administration Heparin Sodium (Porcine) 5,000 unit 04/14/19 10:00 04/16/19 10:22 Heparin - SQ 5,000 unit BID VARSHA Administration Vancomycin HCl 1 gm in 200 mls @ 133.333 mls/hr 04/15/19 01:00 Vancomycin 1 Gm Premix - IVPB Q12H VARSHA Piperacillin Sod/Tazobactam 50 mls @ 100 mls/hr 04/14/19 18:00 04/16/19 17:10 Sod 2.25 gm/ Dextrose IVPB 100 mls/hr Q8H-IV VARSHA Administration Protocol Methylprednisolone Sodium Succinate 40 mg 04/14/19 10:00 04/16/19 17:10 Solu-Medrol - IVPUSH 40 mg Q8H-IV VARSHA Administration Montelukast Sodium 10 mg 04/14/19 22:00 04/15/19 21:40 Singulair - PO 10 mg HS VARSHA Administration Impression 1. DEBORAH 2. hyperkalemia 3. copd 4. asthma 5. htn 6. polysubstance abuse - heroin and cocaine 7. active smoker Plan - repeat labs in am - will evaluate for fluids again in am - deborah likely from pre-renal disease - potassium is improved - abx per medical team
[2019-04-16] MEDS ORDERED: METHADONE HCL 10 MG TABLET PO ONE (19:11)
--- NOTE | 2019-04-16 19:15 | PN ---
Progress Note, Physician History of Present Illness: Pt sleeping - Current Medication List Current Medications: Active Medications Albuterol Sulfate (Ventolin 0.083% Nebulizer Soln -) 1 amp NEB Q4H PRN PRN Reason: SHORT OF BREATH/WHEEZING Albuterol/Ipratropium (Duoneb -) 1 amp NEB RQID [facility] Last Admin: 04/16/19 15:49 Dose: Not Given Budesonide/Formoterol Fumarate (Symbicort 160/4.5mcg -) 2 puff IH BID VARSHA Last Admin: 04/16/19 10:22 Dose: 2 puff Heparin Sodium (Porcine) (Heparin -) 5,000 unit SQ BID VARSHA Last Admin: 04/16/19 10:22 Dose: 5,000 unit Vancomycin HCl (Vancomycin 1 Gm Premix -) 1 gm in 200 mls @ 133.333 mls/hr IVPB Q12H VARSHA Piperacillin Sod/Tazobactam (Sod 2.25 gm/ Dextrose) 50 mls @ 100 mls/hr IVPB Q8H-IV AVRSHA; Protocol Last Admin: 04/16/19 17:10 Dose: 100 mls/hr Methylprednisolone Sodium Succinate (Solu-Medrol -) 40 mg IVPUSH Q8H-IV VARSHA Last Admin: 04/16/19 17:10 Dose: 40 mg Montelukast Sodium (Singulair -) 10 mg PO HS VARSHA Last Admin: 04/15/19 21:40 Dose: 10 mg - Objective Vital Signs: Vital Signs Temperature 98.3 F 04/16/19 13:57 Pulse Rate 85 04/16/19 13:57 Respiratory Rate 20 04/16/19 09:00 Blood Pressure 135/79 04/16/19 13:57 O2 Sat by Pulse Oximetry (%) 97 04/16/19 09:00 Cardiovascular: Yes: WNL, Regular Rate and Rhythm Respiratory: Yes: Other (Coarse BS B/L) Gastrointestinal: Yes: WNL, Normal Bowel Sounds, Soft Labs: CBC, BMP 04/15/19 05:45 04/16/19 06:14 Problem List - Problems (1) Pneumonia Assessment/Plan: Cont IV vanco/zosyn Code(s): J18.9 - PNEUMONIA, UNSPECIFIED ORGANISM (2) Acute kidney injury Assessment/Plan: Creatinine now normal Code(s): N17.9 - ACUTE KIDNEY FAILURE, UNSPECIFIED (3) Asthma exacerbation Assessment/Plan: Cont nebulizers Cont IV solumedrol Code(s): J45.901 - UNSPECIFIED ASTHMA WITH (ACUTE) EXACERBATION Qualifiers: Asthma severity: severe Asthma persistence: persistent Qualified Code(s) : J45.51 - Severe persistent asthma with (acute) exacerbation (4) HTN (hypertension) Assessment/Plan: Fluctuating BP Probably due to heroin w/drawal Code(s): I10 - ESSENTIAL (PRIMARY) HYPERTENSION (5) Opioid dependence with withdrawal Assessment/Plan: Taper methadone to 5mg Code(s): 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
[2019-04-16] MEDS: MONTELUKAST NA 10 MG TABLET PO SCH (22:04)
[2019-04-17] MEDS: methylPREDNISolone NA SUCC 40 MG/1 ML VIAL IVPUSH SCH ×3 (03:00→17:02)
[2019-04-17] MEDS ORDERED: PIPERACILLIN/TAZOBACTAM 2.25 GM VIAL IVPB ONE ×3 (03:16→16:53)
[2019-04-17] MEDS ORDERED: DEXTROSE 5%-WATER - 50 ML IVPB ONE ×3 (03:16→16:53)
[2019-04-17] MEDS: PIPERACILLIN/TAZOB 2.25 GM 2.25 GM in DEXTROSE 5%-WATER - 50 ML IVPB SCH ×3 (03:24→17:02)
[2019-04-17] MEDS: ALBUTEROL SO4 2.5/IPRATROPIUM 0.5 INH SOL 3 ML VIAL.NEB. NEB SCH ×4 (08:35→20:45)
--- NOTE | 2019-04-17 10:07 | CONSULT ---
Consult Detox [facility] Reason for Current Admission/Consult: Patient with heroin, alcohol and cocaine use disorders. 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 Patient has been to detox at [facility] multiple times. Last detox was from 11/18/18-11/21/18 when he left against medical advice without completing detox. Patient reports being clean for initially 2 days, then 2 weeks, then 4 months. Endorsing nasal heroin use 2- 3 hours prior to arrival in the ED. Patient is a frequent flier with recurrent asthma attacks in the setting of intranasal heroin use. He is also noncompliant with his inhalers. On admission to [facility], he felt a bit of tightness in his breathing that resolved spontaneously prior to arrival. Patient's O2 Sat was originally low but with arousability his sat's were higher. He was also endorsing nausea and vomiting of unclear duration - brown emesis during exam. Some epigastric pain "just a little pain, nothing big." Denies chest pain, difficulty breathing, diaphoresis, fevers, chills, weakness, trauma, syncope, wheezing, dark or bloody BMs, urinary symptoms, EDWARD. CXR done on admission did show basilar infiltrates and he is now being treated as pneumonia with unknown organism. - History Source History Provided By: Medical Record Limitations to Obtaining History: Clinical Condition - Alcohol/Substance Use Hx Alcohol Use: Yes (10 beers daily as prior history) Hx Substance Use: Yes (cocaine use as well as heroin 10-12 bags daily) Hx Substance Use Treatment: Yes (multiple detox attempts with noncompliance) - Past Medical History Cardio/Vascular: Yes: HTN Pulmonary: Yes: Asthma, COPD Psych: Yes: Addictions (heroin) - Past Surgical History Past Surgical History: Yes: None - Significant Medical Findings: Labs reviewed and consistent with leukocytosis and probable community acquired pneumonia with COPD/Asthma exacerbation. Latest exam by resident: Constitutional: Yes: Calm Eyes: Yes: Conjunctiva Clear HENT: Yes: Atraumatic Neck: Yes: Supple Cardiovascular: Yes: S1, S2 Respiratory: Yes: CTA Bilaterally Gastrointestinal: Yes: Soft Genitourinary: Yes: WNL Musculoskeletal: Yes: WNL Edema: No Neurological: Yes: Oriented Psychiatric: Yes: Oriented Assessment Plan - Plan Plan: 1. Opioid Dependence with some withdrawals, Cocaine Use Disorder, Alcohol Use Disorder Patient already has withdrawals subsiding. This is a non-compliant patient who has had multiple admissions to [facility] with discharges AMA on multiple occasions. He is also medically non-compliant with medications for COPD and Asthma. He is well known to have exacerbations with intranasal use of opioid and cocaine use. If he is willing to pursue treatment seriously this time (as last detox in 11/15- was not completed), we would have to have him sign a behavioral contract prior to admission to [facility] once again. If he is still having mild withdrawals, once his medical condition is stabilized , then he can be transferred to [facility] to finish detoxing or enter rehab as he needs a more structured environment and lacks judgment in his choices. He would benefit from structured group therapy to gain insight into his continued substance use disorders. Long-term, however, the better option for this patient is MAT in either methadone or suboxone as he has proven that detox and rehab has not been successful in his long-term abstinence. Also, he should be discharged with a Narcan prescription as his risk for overdose is high. Dr. Gonzalez - Medication Detox Regimen/Protocol: Not Applicable
--- NOTE | 2019-04-17 10:30 | PN ---
Progress Note, Physician History of Present Illness: PULMONARY ALERT,LESS DYSPNEIC,LESS COUGH - Current Medication List Current Medications: Active Medications Albuterol Sulfate (Ventolin 0.083% Nebulizer Soln -) 1 amp NEB Q4H PRN PRN Reason: SHORT OF BREATH/WHEEZING Albuterol/Ipratropium (Duoneb -) 1 amp NEB RQID [facility] Last Admin: 04/17/19 08:35 Dose: Not Given Budesonide/Formoterol Fumarate (Symbicort 160/4.5mcg -) 2 puff IH BID [facility] Last Admin: 04/16/19 22:03 Dose: 2 puff Heparin Sodium (Porcine) (Heparin -) 5,000 unit SQ BID [facility] Last Admin: 04/16/19 22:04 Dose: 5,000 unit Vancomycin HCl (Vancomycin 1 Gm Premix -) 1 gm in 200 mls @ 133.333 mls/hr IVPB Q12H [facility] Piperacillin Sod/Tazobactam (Sod 2.25 gm/ Dextrose) 50 mls @ 100 mls/hr IVPB Q8H-IV [facility]; Protocol Last Admin: 04/17/19 03:24 Dose: 100 mls/hr Methylprednisolone Sodium Succinate (Solu-Medrol -) 40 mg IVPUSH Q8H-IV [facility] Last Admin: 04/17/19 03:00 Dose: 40 mg Montelukast Sodium (Singulair -) 10 mg PO HS [facility] Last Admin: 04/16/19 22:04 Dose: 10 mg - Objective Vital Signs: Vital Signs Temperature 98 F 04/17/19 09:00 Pulse Rate 96 H 04/17/19 09:00 Respiratory Rate 20 04/17/19 09:00 Blood Pressure 138/79 04/17/19 09:00 O2 Sat by Pulse Oximetry (%) 96 04/17/19 09:00 Constitutional: Yes: Well Nourished, Calm Eyes: Yes: WNL, Other Neck: Yes: WNL Cardiovascular: Yes: Regular Rate and Rhythm, S1, S2 Respiratory: Yes: Wheezes (LESS WHEEZES BILATERALLY) Gastrointestinal: Yes: Normal Bowel Sounds, Soft Extremities: Yes: WNL Edema: No Labs: CBC, BMP 04/15/19 05:45 04/16/19 06:14 Problem List - Problems (1) Acute exacerbation of chronic obstructive pulmonary disease (COPD) Code(s): Saleem44.1 - CHRONIC OBSTRUCTIVE PULMONARY DISEASE W (ACUTE) EXACERBATION (2) HTN (hypertension) Code(s): I10 - ESSENTIAL (PRIMARY) HYPERTENSION (3) Hypoxia Code(s): R09.02 - HYPOXEMIA (4) Mediastinal adenopathy Code(s): R59.0 - LOCALIZED ENLARGED LYMPH NODES (5) Acute respiratory failure with hypoxia and hypercarbia Code(s): J96.01 - ACUTE RESPIRATORY FAILURE WITH HYPOXIA; J96.02 - ACUTE RESPIRATORY FAILURE WITH HYPERCAPNIA (6) Asthma exacerbation Code(s): J45.901 - UNSPECIFIED ASTHMA WITH (ACUTE) EXACERBATION Qualifiers: Asthma severity: severe Asthma persistence: persistent Qualified Code(s) : J45.51 - Severe persistent asthma with (acute) exacerbation Assessment/Plan Problem List - Problems (1) Pneumonia Code(s): J18.9 - PNEUMONIA, UNSPECIFIED ORGANISM Assessment/Plan Acute Hypoxic and Hypercapneic Respiratory Failure improving Pneumonia Acute Asthma Exacerbation improving Heroin Abuse HTN Smoker Elevated lactate level - IV antibiotics - IV medrol - inhaled bronchodilators standing and PRN - singulair - symbicort BID - O2 to keep Spo2 >90% - smoking/heroin cessation - DVT prophylaxis - trend lactate DR THOMPSON
--- NOTE | 2019-04-17 10:37 | PN ---
Progress Note, Physician History of Present Illness: improving breathing better - Current Medication List Current Medications: Active Medications Albuterol Sulfate (Ventolin 0.083% Nebulizer Soln -) 1 amp NEB Q4H PRN PRN Reason: SHORT OF BREATH/WHEEZING Albuterol/Ipratropium (Duoneb -) 1 amp NEB RQID [facility] Last Admin: 04/17/19 08:35 Dose: Not Given Budesonide/Formoterol Fumarate (Symbicort 160/4.5mcg -) 2 puff IH BID [facility] Last Admin: 04/16/19 22:03 Dose: 2 puff Heparin Sodium (Porcine) (Heparin -) 5,000 unit SQ BID [facility] Last Admin: 04/16/19 22:04 Dose: 5,000 unit Vancomycin HCl (Vancomycin 1 Gm Premix -) 1 gm in 200 mls @ 133.333 mls/hr IVPB Q12H [facility] Piperacillin Sod/Tazobactam (Sod 2.25 gm/ Dextrose) 50 mls @ 100 mls/hr IVPB Q8H-IV [facility]; Protocol Last Admin: 04/17/19 03:24 Dose: 100 mls/hr Methylprednisolone Sodium Succinate (Solu-Medrol -) 40 mg IVPUSH Q8H-IV [facility] Last Admin: 04/17/19 03:00 Dose: 40 mg Montelukast Sodium (Singulair -) 10 mg PO HS [facility] Last Admin: 04/16/19 22:04 Dose: 10 mg - Objective Vital Signs: Vital Signs Temperature 98 F 04/17/19 09:00 Pulse Rate 96 H 04/17/19 09:00 Respiratory Rate 20 04/17/19 09:00 Blood Pressure 138/79 04/17/19 09:00 O2 Sat by Pulse Oximetry (%) 96 04/17/19 09:00 Constitutional: Yes: Calm Neck: Yes: Supple Cardiovascular: Yes: S1, S2 Respiratory: Yes: On Nasal O2, Poor Air Entry, Rhonchi Gastrointestinal: Yes: Normal Bowel Sounds, Soft Musculoskeletal: Yes: WNL Extremities: Yes: WNL Neurological: Yes: Alert, Oriented Psychiatric: Yes: Alert, Oriented Labs: CBC, BMP 04/15/19 05:45 04/16/19 06:14 Assessment/Plan roblem List - Problems (1) Acute exacerbation of chronic obstructive pulmonary disease (COPD) Code(s): J44.1 - CHRONIC OBSTRUCTIVE PULMONARY DISEASE W (ACUTE) EXACERBATION (2) HTN (hypertension) Code(s): I10 - ESSENTIAL (PRIMARY) HYPERTENSION (3) Hypoxia Code(s): R09.02 - HYPOXEMIA (4) Mediastinal adenopathy Code(s): R59.0 - LOCALIZED ENLARGED LYMPH NODES (5) Acute respiratory failure with hypoxia and hypercarbia Code(s): J96.01 - ACUTE RESPIRATORY FAILURE WITH HYPOXIA; J96.02 - ACUTE RESPIRATORY FAILURE WITH HYPERCAPNIA (6) Asthma exacerbation Code(s): J45.901 - UNSPECIFIED ASTHMA WITH (ACUTE) EXACERBATION Qualifiers: Asthma severity: severe Asthma persistence: persistent Qualified Code(s) : J45.51 - Severe persistent asthma with (acute) exacerbation Assessment/Plan Problem List - Problems (1) Pneumonia Code(s): J18.9 - PNEUMONIA, UNSPECIFIED ORGANISM Assessment/Plan Acute Hypoxic and Hypercapneic Respiratory Failure Pneumonia Acute Asthma Exacerbation Heroin Abuse HTN Smoker Elevated lactate level plan continue abx resp support wbc has normalized rest as per the team
[2019-04-17] MEDS: BUDESONIDE/FORMETEROL FUMARATE 160/4.5 mcg INHALER IH SCH ×2 (11:04→20:59)
[2019-04-17] MEDS: HEPARIN NA (PORCINE) 5,000 UNITS/ML 1ML VIAL SQ SCH ×2 (11:05→20:59)
--- NOTE | 2019-04-17 14:31 | PN ---
Progress Note, Physician History of Present Illness: Pt seen and examined at bedside. he is wake and alert. He denies shortness of breath. - Current Medication List Current Medications: Active Medications Albuterol Sulfate (Ventolin 0.083% Nebulizer Soln -) 1 amp NEB Q4H PRN PRN Reason: SHORT OF BREATH/WHEEZING Albuterol/Ipratropium (Duoneb -) 1 amp NEB RQID [facility] Last Admin: 04/17/19 12:12 Dose: Not Given Budesonide/Formoterol Fumarate (Symbicort 160/4.5mcg -) 2 puff IH BID [facility] Last Admin: 04/17/19 11:04 Dose: 2 puff Heparin Sodium (Porcine) (Heparin -) 5,000 unit SQ BID [facility] Last Admin: 04/17/19 11:05 Dose: 5,000 unit Vancomycin HCl (Vancomycin 1 Gm Premix -) 1 gm in 200 mls @ 133.333 mls/hr IVPB Q12H [facility] Piperacillin Sod/Tazobactam (Sod 2.25 gm/ Dextrose) 50 mls @ 100 mls/hr IVPB Q8H-IV [facility]; Protocol Last Admin: 04/17/19 11:02 Dose: 100 mls/hr Methylprednisolone Sodium Succinate (Solu-Medrol -) 40 mg IVPUSH Q8H-IV [facility] Last Admin: 04/17/19 11:04 Dose: 40 mg Montelukast Sodium (Singulair -) 10 mg PO HS [facility] Last Admin: 04/16/19 22:04 Dose: 10 mg - Objective Vital Signs: Vital Signs Temperature 98 F 04/17/19 09:00 Pulse Rate 96 H 04/17/19 09:00 Respiratory Rate 20 04/17/19 09:00 Blood Pressure 138/79 04/17/19 09:00 O2 Sat by Pulse Oximetry (%) 96 04/17/19 09:00 Constitutional: Yes: Calm Eyes: Yes: Conjunctiva Clear HENT: Yes: Atraumatic Neck: Yes: Supple Cardiovascular: Yes: S1, S2 Respiratory: Yes: CTA Bilaterally Gastrointestinal: Yes: Soft Genitourinary: Yes: WNL Musculoskeletal: Yes: WNL Edema: No Neurological: Yes: Oriented Psychiatric: Yes: Oriented Labs: CBC, BMP 04/15/19 05:45 04/16/19 06:14 Problem List - Problems (1) Acute kidney injury Code(s): N17.9 - ACUTE KIDNEY FAILURE, UNSPECIFIED (2) Heroin abuse Code(s): F11.10 - OPIOID ABUSE, UNCOMPLICATED (3) Leukocytosis Code(s): D72.829 - ELEVATED WHITE BLOOD CELL COUNT, UNSPECIFIED Qualifiers: Leukocytosis type: unspecified Qualified Code(s): D72.829 - Elevated white blood cell count, unspecified Assessment/Plan Current Medications Generic Name Dose Route Start Last Admin Trade Name Freq PRN Reason Stop Dose Admin Albuterol Sulfate 1 amp 04/14/19 13:30 Ventolin 0.083% Nebulizer Soln - NEB Q4H PRN SHORT OF BREATH/WHEEZING Albuterol/Ipratropium 1 amp 04/14/19 16:00 04/17/19 12:12 Duoneb - NEB Not Given RQID [facility] Budesonide/Formoterol Fumarate 2 puff 04/14/19 22:00 04/17/19 11:04 Symbicort 160/4.5mcg - IH 2 puff BID [facility] Administration Heparin Sodium (Porcine) 5,000 unit 04/14/19 10:00 04/17/19 11:05 Heparin - SQ 5,000 unit BID [facility] Administration Vancomycin HCl 1 gm in 200 mls @ 133.333 mls/hr 04/15/19 01:00 Vancomycin 1 Gm Premix - IVPB Q12H [facility] Piperacillin Sod/Tazobactam 50 mls @ 100 mls/hr 04/14/19 18:00 04/17/19 11:02 Sod 2.25 gm/ Dextrose IVPB 100 mls/hr Q8H-IV [facility] Administration Protocol Methylprednisolone Sodium Succinate 40 mg 04/14/19 10:00 04/17/19 11:04 Solu-Medrol - IVPUSH 40 mg Q8H-IV [facility] Administration Montelukast Sodium 10 mg 04/14/19 22:00 04/16/19 22:04 Singulair - PO 10 mg HS [facility] Administration Impression 1. DEBORAH 2. hyperkalemia 3. copd 4. asthma 5. htn 6. polysubstance abuse - heroin and cocaine 7. active smoker Plan - cont fluids - lactic acid still mildly elevated - repeat labs in am - repeat lactic acid level in am - abx per medical team
[2019-04-17] MEDS ORDERED: SODIUM CHLORIDE 0.45% 1,000 ML IV SCH (14:45)
[2019-04-17] MEDS: MONTELUKAST NA 10 MG TABLET PO SCH (20:59)
--- NOTE | 2019-04-17 23:18 | PN ---
Progress Note, Physician History of Present Illness: No new complaints - Current Medication List Current Medications: Active Medications Albuterol Sulfate (Ventolin 0.083% Nebulizer Soln -) 1 amp NEB Q4H PRN PRN Reason: SHORT OF BREATH/WHEEZING Albuterol/Ipratropium (Duoneb -) 1 amp NEB RQID [facility] Last Admin: 04/17/19 20:45 Dose: Not Given Budesonide/Formoterol Fumarate (Symbicort 160/4.5mcg -) 2 puff IH BID [facility] Last Admin: 04/17/19 20:59 Dose: 2 puff Heparin Sodium (Porcine) (Heparin -) 5,000 unit SQ BID [facility] Last Admin: 04/17/19 20:59 Dose: 5,000 unit Vancomycin HCl (Vancomycin 1 Gm Premix -) 1 gm in 200 mls @ 133.333 mls/hr IVPB Q12H [facility] Piperacillin Sod/Tazobactam (Sod 2.25 gm/ Dextrose) 50 mls @ 100 mls/hr IVPB Q8H-IV [facility]; Protocol Last Admin: 04/17/19 17:02 Dose: 100 mls/hr Sodium Chloride (1/2 Normal Saline) 1,000 mls @ 50 mls/hr IV ASDIR [facility] Stop: 04/18/19 14:31 Last Admin: 04/17/19 17:02 Dose: 50 mls/hr Methylprednisolone Sodium Succinate (Solu-Medrol -) 40 mg IVPUSH Q8H-IV [facility] Last Admin: 04/17/19 17:02 Dose: 40 mg Montelukast Sodium (Singulair -) 10 mg PO HS [facility] Last Admin: 04/17/19 20:59 Dose: 10 mg - Objective Vital Signs: Vital Signs Temperature 97.6 F 04/17/19 17:00 Pulse Rate 68 04/17/19 17:00 Respiratory Rate 20 04/17/19 20:54 Blood Pressure 137/90 04/17/19 17:00 O2 Sat by Pulse Oximetry (%) 96 04/17/19 20:54 Neck: Yes: WNL, Supple Cardiovascular: Yes: WNL, Regular Rate and Rhythm Respiratory: Yes: Diminished Gastrointestinal: Yes: WNL, Normal Bowel Sounds, Soft Labs: CBC, BMP 04/15/19 05:45 04/16/19 06:14 Problem List - Problems (1) Pneumonia Assessment/Plan: Cont IV vanco/zosyn Lactic acid slightly elevated Repeat lactic acid in am Repeat CXR in am WBC is normal Code(s): J18.9 - PNEUMONIA, UNSPECIFIED ORGANISM (2) Acute kidney injury Assessment/Plan: Creatinine now normal Code(s): N17.9 - ACUTE KIDNEY FAILURE, UNSPECIFIED (3) Asthma exacerbation Assessment/Plan: Cont nebulizers Cont IV solumedrol Code(s): J45.901 - UNSPECIFIED ASTHMA WITH (ACUTE) EXACERBATION Qualifiers: Asthma severity: severe Asthma persistence: persistent Qualified Code(s) : J45.51 - Severe persistent asthma with (acute) exacerbation (4) HTN (hypertension) Assessment/Plan: Fluctuating BP Probably due to heroin w/drawal Code(s): I10 - ESSENTIAL (PRIMARY) HYPERTENSION (5) Opioid dependence with withdrawal Assessment/Plan: Taper methadone to 5mg Code(s): 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
[2019-04-18] MEDS ORDERED: PIPERACILLIN/TAZOBACTAM 2.25 GM VIAL IVPB ONE ×3 (03:17→15:17)
[2019-04-18] MEDS ORDERED: DEXTROSE 5%-WATER - 50 ML IVPB ONE ×3 (03:17→15:18)
[2019-04-18] MEDS: methylPREDNISolone NA SUCC 40 MG/1 ML VIAL IVPUSH SCH ×4 (03:23→21:09)
[2019-04-18] MEDS: PIPERACILLIN/TAZOB 2.25 GM 2.25 GM in DEXTROSE 5%-WATER - 50 ML IVPB SCH ×3 (03:23→17:22)
[2019-04-18] MEDS: ALBUTEROL SO4 2.5/IPRATROPIUM 0.5 INH SOL 3 ML VIAL.NEB. NEB SCH ×4 (07:35→20:06)
--- NOTE | 2019-04-18 10:22 | PN ---
Progress Note, Physician Chief Complaint: pulmonary alert,feeling better,breathing better - Current Medication List Current Medications: Active Medications Albuterol Sulfate (Ventolin 0.083% Nebulizer Soln -) 1 amp NEB Q4H PRN PRN Reason: SHORT OF BREATH/WHEEZING Albuterol/Ipratropium (Duoneb -) 1 amp NEB RQID [facility] Last Admin: 04/18/19 07:35 Dose: Not Given Budesonide/Formoterol Fumarate (Symbicort 160/4.5mcg -) 2 puff IH BID [facility] Last Admin: 04/17/19 20:59 Dose: 2 puff Heparin Sodium (Porcine) (Heparin -) 5,000 unit SQ BID [facility] Last Admin: 04/17/19 20:59 Dose: 5,000 unit Vancomycin HCl (Vancomycin 1 Gm Premix -) 1 gm in 200 mls @ 133.333 mls/hr IVPB Q12H [facility] Piperacillin Sod/Tazobactam (Sod 2.25 gm/ Dextrose) 50 mls @ 100 mls/hr IVPB Q8H-IV [facility]; Protocol Last Admin: 04/18/19 03:23 Dose: 100 mls/hr Sodium Chloride (1/2 Normal Saline) 1,000 mls @ 50 mls/hr IV ASDIR [facility] Stop: 04/18/19 14:31 Last Admin: 04/17/19 17:02 Dose: 50 mls/hr Methylprednisolone Sodium Succinate (Solu-Medrol -) 40 mg IVPUSH Q8H-IV [facility] Last Admin: 04/18/19 03:23 Dose: 40 mg Montelukast Sodium (Singulair -) 10 mg PO HS [facility] Last Admin: 04/17/19 20:59 Dose: 10 mg - Objective Vital Signs: Vital Signs Temperature 98 F 04/18/19 08:46 Pulse Rate 60 04/18/19 08:46 Respiratory Rate 20 04/18/19 08:46 Blood Pressure 120/74 04/18/19 08:46 O2 Sat by Pulse Oximetry (%) 96 04/18/19 08:46 Constitutional: Yes: Well Nourished, Calm Eyes: Yes: WNL HENT: Yes: WNL Neck: Yes: WNL Cardiovascular: Yes: Regular Rate and Rhythm, S1, S2 Respiratory: Yes: Diminished Gastrointestinal: Yes: Normal Bowel Sounds, Soft Extremities: Yes: WNL Edema: No Labs: CBC, BMP Problem List - Problems (1) Acute exacerbation of chronic obstructive pulmonary disease (COPD) Code(s): J44.1 - CHRONIC OBSTRUCTIVE PULMONARY DISEASE W (ACUTE) EXACERBATION (2) HTN (hypertension) Code(s): I10 - ESSENTIAL (PRIMARY) HYPERTENSION (3) Hypoxia Code(s): R09.02 - HYPOXEMIA (4) Mediastinal adenopathy Code(s): R59.0 - LOCALIZED ENLARGED LYMPH NODES (5) Acute respiratory failure with hypoxia and hypercarbia Code(s): J96.01 - ACUTE RESPIRATORY FAILURE WITH HYPOXIA; J96.02 - ACUTE RESPIRATORY FAILURE WITH HYPERCAPNIA (6) Asthma exacerbation Code(s): J45.901 - UNSPECIFIED ASTHMA WITH (ACUTE) EXACERBATION Qualifiers: Asthma severity: severe Asthma persistence: persistent Qualified Code(s) : J45.51 - Severe persistent asthma with (acute) exacerbation Assessment/Plan Problem List - Problems (1) Pneumonia Code(s): J18.9 - PNEUMONIA, UNSPECIFIED ORGANISM Assessment/Plan Acute Hypoxic and Hypercapneic Respiratory Failure improving Pneumonia improving Acute Asthma Exacerbation improving Heroin Abuse HTN Smoker Elevated lactate level - IV antibiotics - prednisone in am - inhaled bronchodilators standing and PRN - singulair - symbicort BID - O2 to keep Spo2 >90% - smoking/heroin cessation - DVT prophylaxis - trend lactate - chest x-ray DR THOMPSON
[2019-04-18] MEDS: HEPARIN NA (PORCINE) 5,000 UNITS/ML 1ML VIAL SQ SCH ×2 (10:31→21:08)
[2019-04-18] MEDS: BUDESONIDE/FORMETEROL FUMARATE 160/4.5 mcg INHALER IH SCH ×2 (10:32→21:09)
--- NOTE | 2019-04-18 12:19 | PN ---
Progress Note, Physician History of Present Illness: stable no new issues - Current Medication List Current Medications: Active Medications Albuterol Sulfate (Ventolin 0.083% Nebulizer Soln -) 1 amp NEB Q4H PRN PRN Reason: SHORT OF BREATH/WHEEZING Albuterol/Ipratropium (Duoneb -) 1 amp NEB RQID [facility] Last Admin: 04/18/19 11:34 Dose: Not Given Budesonide/Formoterol Fumarate (Symbicort 160/4.5mcg -) 2 puff IH BID [facility] Last Admin: 04/18/19 10:32 Dose: 2 puff Heparin Sodium (Porcine) (Heparin -) 5,000 unit SQ BID [facility] Last Admin: 04/18/19 10:31 Dose: 5,000 unit Piperacillin Sod/Tazobactam (Sod 2.25 gm/ Dextrose) 50 mls @ 100 mls/hr IVPB Q8H-IV [facility]; Protocol Last Admin: 04/18/19 10:31 Dose: 100 mls/hr Sodium Chloride (1/2 Normal Saline) 1,000 mls @ 50 mls/hr IV ASDIR [facility] Stop: 04/18/19 14:31 Last Admin: 04/17/19 17:02 Dose: 50 mls/hr Methylprednisolone Sodium Succinate (Solu-Medrol -) 40 mg IVPUSH BID [facility] Stop: 04/18/19 22:01 Last Admin: 04/18/19 10:31 Dose: 40 mg Montelukast Sodium (Singulair -) 10 mg PO HS [facility] Last Admin: 04/17/19 20:59 Dose: 10 mg Prednisone (Deltasone -) 40 mg PO DAILY [facility] - Objective Vital Signs: Vital Signs Temperature 98 F 04/18/19 08:46 Pulse Rate 60 04/18/19 08:46 Respiratory Rate 20 04/18/19 08:46 Blood Pressure 120/74 04/18/19 08:46 O2 Sat by Pulse Oximetry (%) 96 04/18/19 08:46 Constitutional: Yes: No Distress, Calm Cardiovascular: Yes: S1, S2 Respiratory: Yes: Regular, CTA Bilaterally Gastrointestinal: Yes: Normal Bowel Sounds, Soft Musculoskeletal: Yes: WNL Extremities: Yes: WNL Neurological: Yes: Alert, Oriented Psychiatric: Yes: Alert, Oriented Labs: CBC, BMP 04/15/19 05:45 04/16/19 06:14 Assessment/Plan roblem List - Problems (1) Acute exacerbation of chronic obstructive pulmonary disease (COPD) Code(s): J44.1 - CHRONIC OBSTRUCTIVE PULMONARY DISEASE W (ACUTE) EXACERBATION (2) HTN (hypertension) Code(s): I10 - ESSENTIAL (PRIMARY) HYPERTENSION (3) Hypoxia Code(s): R09.02 - HYPOXEMIA (4) Mediastinal adenopathy Code(s): R59.0 - LOCALIZED ENLARGED LYMPH NODES (5) Acute respiratory failure with hypoxia and hypercarbia Code(s): J96.01 - ACUTE RESPIRATORY FAILURE WITH HYPOXIA; J96.02 - ACUTE RESPIRATORY FAILURE WITH HYPERCAPNIA (6) Asthma exacerbation Code(s): J45.901 - UNSPECIFIED ASTHMA WITH (ACUTE) EXACERBATION Qualifiers: Asthma severity: severe Asthma persistence: persistent Qualified Code(s) : J45.51 - Severe persistent asthma with (acute) exacerbation Assessment/Plan Problem List - Problems (1) Pneumonia Code(s): J18.9 - PNEUMONIA, UNSPECIFIED ORGANISM Assessment/Plan Acute Hypoxic and Hypercapneic Respiratory Failure Pneumonia Acute Asthma Exacerbation Heroin Abuse HTN Smoker Elevated lactate level plan continue abx resp support
--- NOTE | 2019-04-18 16:08 | PN ---
Progress Note, Physician History of Present Illness: Pt seen and examined at bedside. He is awake and alert. He has been refusing labs. - Current Medication List Current Medications: Active Medications Albuterol Sulfate (Ventolin 0.083% Nebulizer Soln -) 1 amp NEB Q4H PRN PRN Reason: SHORT OF BREATH/WHEEZING Albuterol/Ipratropium (Duoneb -) 1 amp NEB RQID [facility] Last Admin: 04/18/19 11:34 Dose: Not Given Budesonide/Formoterol Fumarate (Symbicort 160/4.5mcg -) 2 puff IH BID [facility] Last Admin: 04/18/19 10:32 Dose: 2 puff Heparin Sodium (Porcine) (Heparin -) 5,000 unit SQ BID [facility] Last Admin: 04/18/19 10:31 Dose: 5,000 unit Piperacillin Sod/Tazobactam (Sod 2.25 gm/ Dextrose) 50 mls @ 100 mls/hr IVPB Q8H-IV [facility]; Protocol Last Admin: 04/18/19 10:31 Dose: 100 mls/hr Methylprednisolone Sodium Succinate (Solu-Medrol -) 40 mg IVPUSH BID [facility] Stop: 04/18/19 22:01 Last Admin: 04/18/19 10:31 Dose: 40 mg Montelukast Sodium (Singulair -) 10 mg PO HS [facility] Last Admin: 04/17/19 20:59 Dose: 10 mg Prednisone (Deltasone -) 40 mg PO DAILY [facility] - Objective Vital Signs: Vital Signs Temperature 97.9 F 04/18/19 14:00 Pulse Rate 77 04/18/19 14:00 Respiratory Rate 20 04/18/19 14:00 Blood Pressure 139/89 04/18/19 14:00 O2 Sat by Pulse Oximetry (%) 96 04/18/19 08:46 Constitutional: Yes: Calm Eyes: Yes: Conjunctiva Clear HENT: Yes: Atraumatic Neck: Yes: Supple Cardiovascular: Yes: S1, S2 Respiratory: Yes: CTA Bilaterally Gastrointestinal: Yes: Soft Genitourinary: Yes: WNL Musculoskeletal: Yes: WNL Edema: No Integumentary: Yes: WNL Neurological: Yes: Oriented Psychiatric: Yes: Oriented Labs: CBC, BMP 04/15/19 05:45 04/16/19 06:14 Problem List - Problems (1) Acute kidney injury Code(s): N17.9 - ACUTE KIDNEY FAILURE, UNSPECIFIED (2) Heroin abuse Code(s): F11.10 - OPIOID ABUSE, UNCOMPLICATED (3) Leukocytosis Code(s): D72.829 - ELEVATED WHITE BLOOD CELL COUNT, UNSPECIFIED Qualifiers: Leukocytosis type: unspecified Qualified Code(s): D72.829 - Elevated white blood cell count, unspecified Assessment/Plan Current Medications Generic Name Dose Route Start Last Admin Trade Name Freq PRN Reason Stop Dose Admin Albuterol Sulfate 1 amp 04/14/19 13:30 Ventolin 0.083% Nebulizer Soln - NEB Q4H PRN SHORT OF BREATH/WHEEZING Albuterol/Ipratropium 1 amp 04/14/19 16:00 04/18/19 11:34 Duoneb - NEB Not Given RQID [facility] Budesonide/Formoterol Fumarate 2 puff 04/14/19 22:00 04/18/19 10:32 Symbicort 160/4.5mcg - IH 2 puff BID [facility] Administration Heparin Sodium (Porcine) 5,000 unit 04/14/19 10:00 04/18/19 10:31 Heparin - SQ 5,000 unit BID [facility] Administration Piperacillin Sod/Tazobactam 50 mls @ 100 mls/hr 04/14/19 18:00 04/18/19 10:31 Sod 2.25 gm/ Dextrose IVPB 100 mls/hr Q8H-IV [facility] Administration Protocol Methylprednisolone Sodium Succinate 40 mg 04/18/19 10:30 04/18/19 10:31 Solu-Medrol - IVPUSH 04/18/19 22:01 40 mg BID [facility] Administration Montelukast Sodium 10 mg 04/14/19 22:00 04/17/19 20:59 Singulair - PO 10 mg HS [facility] Administration Prednisone 40 mg 04/19/19 10:00 Deltasone - PO DAILY [facility] Impression 1. DEBORAH 2. hyperkalemia 3. copd 4. asthma 5. htn 6. polysubstance abuse - heroin and cocaine 7. active smoker Plan - check cmp and lactic acid if he agrees - pt refused labs 3 times today - d/c fluids for now - abx per medical team - will follow prn
[2019-04-18 18:04] LABS: ALBUMIN 3.4 g/dl (3.4-5.0); BILIRUBIN,TOTAL 0.3 mg/dL (0.2-1); BLOOD UREA NITROGEN 31.1 mg/dL (7-18); POTASSIUM 4.7 mmol/L (3.5-5.1); TOT PROT 6.9 g/dl (6.4-8.2)
[2019-04-18] MEDS ORDERED: SODIUM CHLORIDE 0.45% 1,000 ML IV SCH (18:30)
[2019-04-18] MEDS ORDERED: SODIUM CHLORIDE 1,000 ML IV SCH (18:45)
[2019-04-18] MEDS: MONTELUKAST NA 10 MG TABLET PO SCH (21:08)
--- NOTE | 2019-04-18 23:33 | PN ---
Progress Note, Physician - Current Medication List Current Medications: Active Medications Albuterol Sulfate (Ventolin 0.083% Nebulizer Soln -) 1 amp NEB Q4H PRN PRN Reason: SHORT OF BREATH/WHEEZING Albuterol/Ipratropium (Duoneb -) 1 amp NEB RQID [facility] Last Admin: 04/18/19 20:06 Dose: Not Given Budesonide/Formoterol Fumarate (Symbicort 160/4.5mcg -) 2 puff IH BID [facility] Last Admin: 04/18/19 21:09 Dose: 2 puff Heparin Sodium (Porcine) (Heparin -) 5,000 unit SQ BID [facility] Last Admin: 04/18/19 21:08 Dose: 5,000 unit Piperacillin Sod/Tazobactam (Sod 2.25 gm/ Dextrose) 50 mls @ 100 mls/hr IVPB Q8H-IV [facility]; Protocol Last Admin: 04/18/19 17:22 Dose: 100 mls/hr Sodium Chloride (Normal Saline -) 1,000 mls @ 100 mls/hr IV ASDIR [facility] Montelukast Sodium (Singulair -) 10 mg PO HS [facility] Last Admin: 04/18/19 21:08 Dose: 10 mg Prednisone (Deltasone -) 40 mg PO DAILY [facility] - Objective Vital Signs: Vital Signs Temperature 98.8 F 04/18/19 21:46 Pulse Rate 83 04/18/19 21:46 Respiratory Rate 20 04/18/19 21:46 Blood Pressure 133/76 04/18/19 21:46 O2 Sat by Pulse Oximetry (%) 96 04/18/19 20:10 Labs: CBC, BMP 04/15/19 05:45 04/18/19 17:20 Problem List - Problems (1) Pneumonia Code(s): J18.9 - PNEUMONIA, UNSPECIFIED ORGANISM (2) Acute kidney injury Code(s): N17.9 - ACUTE KIDNEY FAILURE, UNSPECIFIED (3) Asthma exacerbation Code(s): J45.901 - UNSPECIFIED ASTHMA WITH (ACUTE) EXACERBATION Qualifiers: Asthma severity: severe Asthma persistence: persistent Qualified Code(s) : J45.51 - Severe persistent asthma with (acute) exacerbation (4) HTN (hypertension) Code(s): I10 - ESSENTIAL (PRIMARY) HYPERTENSION (5) Opioid dependence with withdrawal Code(s): 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
[2019-04-19] MEDS ORDERED: DEXTROSE 5%-WATER - 50 ML IVPB ONE ×3 (01:13→16:28)
[2019-04-19] MEDS ORDERED: PIPERACILLIN/TAZOBACTAM 2.25 GM VIAL IVPB ONE ×2 (01:13→09:16)
[2019-04-19] MEDS: PIPERACILLIN/TAZOB 2.25 GM 2.25 GM in DEXTROSE 5%-WATER - 50 ML IVPB SCH ×2 (01:14→09:23)
[2019-04-19] MEDS: ALBUTEROL SO4 2.5/IPRATROPIUM 0.5 INH SOL 3 ML VIAL.NEB. NEB SCH ×2 (07:54→12:05)
[2019-04-19] MEDS: HEPARIN NA (PORCINE) 5,000 UNITS/ML 1ML VIAL SQ SCH ×2 (09:22→21:28)
[2019-04-19] MEDS: predniSONE 20 MG TABLET (UD) PO SCH (09:22)
[2019-04-19] MEDS: BUDESONIDE/FORMETEROL FUMARATE 160/4.5 mcg INHALER IH SCH ×2 (09:23→21:30)
[2019-04-19 09:35] LABS: BASO % 0.4 % (0-2.0); EOS % 0.1 % (0-4.5); HEMATOCRIT 40.6 % (35.4-49); HEMOGLOBIN 13.4 GM/dL (11.7-16.9); LYMPH % 10.7 % (8-40); MCH 26.6 pg (25.7-33.7); MCHC 32.9 g/dl (32.0-35.9); MEAN CELL VOLUME 80.9 fl (80-96); MEAN PLT VOLUME 7.6 fl (7.5-11.1); MONO % 7.4 % (3.8-10.2); NEUT % 81.4 % (42.8-82.8); PLATELET COUNT 397 K/MM3 (134-434); RBC 5.02 M/mm3 (4.00-5.60); RDW 14.1 % (11.9-15.9); WHITE BLOOD COUNT 22.7 K/mm3 (4.0-10.0)
[2019-04-19 10:23] LABS: ALBUMIN 3.2 g/dl (3.4-5.0); BILIRUBIN,TOTAL 0.4 mg/dL (0.2-1); BLOOD UREA NITROGEN 28.4 mg/dL (7-18); CALCIUM 8.6 mg/dL (8.5-10.1); CREATININE 0.8 mg/dL (0.55-1.3); POTASSIUM 4.4 mmol/L (3.5-5.1); TOT PROT 6.7 g/dl (6.4-8.2)
[2019-04-19] MEDS: SODIUM CHLORIDE 1,000 ML IV SCH ×2 (11:50→11:58)
--- NOTE | 2019-04-19 11:58 | PN ---
Progress Note (short form) - Note Progress Note: Renal follow up for DEBORAH and lactic acidosis Seen and examined at the bedside reports very mild lower abdominal pain no N/V making urine Vital Signs Temperature 98.6 F 04/19/19 08:32 Pulse Rate 68 04/19/19 08:32 Respiratory Rate 20 04/19/19 08:32 Blood Pressure 124/74 04/19/19 08:32 O2 Sat by Pulse Oximetry (%) 97 04/19/19 08:32 Intake & Output 04/16/19 04/17/19 04/18/19 04/19/19 23:59 23:59 23:59 23:59 Intake Total 1200 6747 733 5408 Output Total 700 043 717 8949 Balance 500 340 -100 150 NAD awake and alert RRR CTA soft NT/ND no LE edema CBC, BMP 04/19/19 09:10 04/19/19 09:10 Current Medications Albuterol Sulfate (Ventolin 0.083% Nebulizer Soln -) 1 amp NEB Q4H PRN PRN Reason: SHORT OF BREATH/WHEEZING Albuterol/Ipratropium (Duoneb -) 1 amp NEB RQID [facility] Last Admin: 04/19/19 07:54 Dose: Not Given Budesonide/Formoterol Fumarate (Symbicort 160/4.5mcg -) 2 puff IH BID [facility] Last Admin: 04/19/19 09:23 Dose: 2 puff Heparin Sodium (Porcine) (Heparin -) 5,000 unit SQ BID [facility] Last Admin: 04/19/19 09:22 Dose: 5,000 unit Piperacillin Sod/Tazobactam (Sod 2.25 gm/ Dextrose) 50 mls @ 100 mls/hr IVPB Q8H-IV [facility]; Protocol Last Admin: 04/19/19 09:23 Dose: 100 mls/hr Sodium Chloride (Normal Saline -) 1,000 mls @ 125 mls/hr IV ASDIR [facility] Montelukast Sodium (Singulair -) 10 mg PO HS [facility] Last Admin: 04/18/19 21:08 Dose: 10 mg Prednisone (Deltasone -) 40 mg PO DAILY [facility] Last Admin: 04/19/19 09:22 Dose: 40 mg mpression 1. DEBORAH 2. hyperkalemia 3. copd 4. asthma 5. htn 6. polysubstance abuse - heroin and cocaine 7. active smoker 8. Lactic acidosis Plan Renal function is improved and stable Lactic acid still elevated, continue IVF x 24 hours if Lactic acid remains elevated despite IVF can consider Nebs (albuterol as potential cause) if abdominal pain worsening may require abdominal imaging trend renal function and lactic acid daily Ravi chen Do
[2019-04-19] MEDS ORDERED: PT OWN MED DRAWER 7, Y5N ONE ×2 (12:15→15:47)
[2019-04-19 12:26] LABS: PLATELET ESTIMATE ADEQUATE
--- NOTE | 2019-04-19 16:23 | PN ---
Progress Note, Physician History of Present Illness: Pt states he feels well without SOB but still feels mildly weak. C/o mild mid- abdominal intermittent dull pain (3/10 intensity) but no n/v/d. WBC increased again today but without any other specific complaints. - Current Medication List Current Medications: Active Medications Budesonide/Formoterol Fumarate (Symbicort 160/4.5mcg -) 2 puff IH BID [facility] Last Admin: 04/19/19 09:23 Dose: 2 puff Heparin Sodium (Porcine) (Heparin -) 5,000 unit SQ BID [facility] Last Admin: 04/19/19 09:22 Dose: 5,000 unit Sodium Chloride (Normal Saline -) 1,000 mls @ 125 mls/hr IV ASDIR [facility] Last Admin: 04/19/19 11:58 Dose: 125 mls/hr Piperacillin Sod/Tazobactam (Sod 3.375 gm/ Dextrose) 50 mls @ 100 mls/hr IVPB Q8H-IV [facility]; Protocol Montelukast Sodium (Singulair -) 10 mg PO HS [facility] Last Admin: 04/18/19 21:08 Dose: 10 mg Prednisone (Deltasone -) 40 mg PO DAILY [facility] Last Admin: 04/19/19 09:22 Dose: 40 mg - Objective Vital Signs: Vital Signs Temperature 98.1 F 04/19/19 14:00 Pulse Rate 85 04/19/19 14:00 Respiratory Rate 20 04/19/19 08:32 Blood Pressure 153/94 04/19/19 14:00 O2 Sat by Pulse Oximetry (%) 97 04/19/19 08:32 Constitutional: Yes: Well Nourished, No Distress, Calm Eyes: Yes: Conjunctiva Clear HENT: Yes: Atraumatic Neck: Yes: Supple Cardiovascular: Yes: Regular Rate and Rhythm Respiratory: Yes: CTA Bilaterally Gastrointestinal: Yes: Normal Bowel Sounds, Soft, Tenderness (minimal, no guarding/no distension) Genitourinary: Yes: WNL Musculoskeletal: Yes: WNL Extremities: Yes: WNL Edema: No Peripheral Pulses WNL: Yes Integumentary: Yes: WNL Neurological: Yes: Alert, Oriented Labs: CBC, BMP 04/19/19 09:10 04/19/19 09:10 Microbiology 04/14/19 01:30 Blood - Peripheral Venous Blood Culture - Final NO GROWTH AFTER 5 DAYS INCUBATION 04/14/19 01:30 Blood - Peripheral Venous Blood Culture - Final NO GROWTH AFTER 5 DAYS INCUBATION 04/13/19 22:44 Urine - Urine Clean Catch Urine Culture - Final NO GROWTH OBTAINED - ....Imaging Cat Scan: Report Reviewed Problem List - Problems (1) Acute kidney injury Code(s): N17.9 - ACUTE KIDNEY FAILURE, UNSPECIFIED (2) Acute respiratory acidosis Code(s): E87.2 - ACIDOSIS (3) Heroin abuse Code(s): F11.10 - OPIOID ABUSE, UNCOMPLICATED (4) Leukocytosis Code(s): D72.829 - ELEVATED WHITE BLOOD CELL COUNT, UNSPECIFIED Qualifiers: Leukocytosis type: unspecified Qualified Code(s): D72.829 - Elevated white blood cell count, unspecified (5) Pneumonia Code(s): J18.9 - PNEUMONIA, UNSPECIFIED ORGANISM (6) Asthma exacerbation Code(s): J45.901 - UNSPECIFIED ASTHMA WITH (ACUTE) EXACERBATION Qualifiers: Asthma severity: severe Asthma persistence: persistent Qualified Code(s) : J45.51 - Severe persistent asthma with (acute) exacerbation (7) Nicotine dependence Code(s): F17.200 - NICOTINE DEPENDENCE, UNSPECIFIED, UNCOMPLICATED Qualifiers: Nicotine product type: cigarettes Substance use status: uncomplicated Qualified Code(s): F17.210 - Nicotine dependence, cigarettes, uncomplicated Assessment/Plan PNA Leukocytosis Lactic acidosis Asthma Exacerbation Heroin/Cocaine Abuse HTN Nicotine dependence -- wbc increased, lactic acid still slightly elevated -- renal function improved, dose of Zosyn adjusted -- repeat cbc in a.m., monitor wbc -- patient on steroids, refusing BDs -- stable vitals, without distress
[2019-04-19] MEDS ORDERED: PIPERACILLIN/TAZOBACTAM 3.375 GM VIAL IVPB ONE (16:28)
[2019-04-19] MEDS: PIPERACILLIN/TAZOB 3.375 GM 3.375 GM in DEXTROSE 5%-WATER - 50 ML IVPB SCH (17:21)
[2019-04-19] MEDS ORDERED: PANTOPRAZOLE 40 MG TABLET (FP) PO ONE (20:30)
[2019-04-19] MEDS: MONTELUKAST NA 10 MG TABLET PO SCH (21:28)
--- NOTE | 2019-04-19 22:29 | PN ---
Progress Note, Physician - Current Medication List Current Medications: Active Medications Budesonide/Formoterol Fumarate (Symbicort 160/4.5mcg -) 2 puff IH BID [facility] Last Admin: 04/19/19 21:30 Dose: 2 puff Heparin Sodium (Porcine) (Heparin -) 5,000 unit SQ BID [facility] Last Admin: 04/19/19 21:28 Dose: 5,000 unit Sodium Chloride (Normal Saline -) 1,000 mls @ 125 mls/hr IV ASDIR [facility] Last Admin: 04/19/19 11:58 Dose: 125 mls/hr Piperacillin Sod/Tazobactam (Sod 3.375 gm/ Dextrose) 50 mls @ 100 mls/hr IVPB Q8H-IV [facility]; Protocol Last Admin: 04/19/19 17:21 Dose: 100 mls/hr Montelukast Sodium (Singulair -) 10 mg PO HS [facility] Last Admin: 04/19/19 21:28 Dose: 10 mg Prednisone (Deltasone -) 40 mg PO DAILY [facility] Last Admin: 04/19/19 09:22 Dose: 40 mg - Objective Vital Signs: Vital Signs Temperature 98.2 F 04/19/19 17:00 Pulse Rate 75 04/19/19 17:00 Respiratory Rate 20 04/19/19 17:00 Blood Pressure 134/83 04/19/19 17:00 O2 Sat by Pulse Oximetry (%) 97 04/19/19 08:32 Labs: CBC, BMP 04/19/19 09:10 04/19/19 09:10 Problem List - Problems (1) Pneumonia Code(s): J18.9 - PNEUMONIA, UNSPECIFIED ORGANISM (2) Acute kidney injury Code(s): N17.9 - ACUTE KIDNEY FAILURE, UNSPECIFIED (3) Asthma exacerbation Code(s): J45.901 - UNSPECIFIED ASTHMA WITH (ACUTE) EXACERBATION Qualifiers: Asthma severity: severe Asthma persistence: persistent Qualified Code(s) : J45.51 - Severe persistent asthma with (acute) exacerbation (4) HTN (hypertension) Code(s): I10 - ESSENTIAL (PRIMARY) HYPERTENSION (5) Opioid dependence with withdrawal Code(s): 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
[2019-04-19] MEDS ORDERED: traMADol HCL 50 MG TABLET PO ONE (23:00)
[2019-04-20] MEDS ORDERED: DEXTROSE 5%-WATER - 50 ML IVPB ONE ×3 (00:38→18:02)
[2019-04-20] MEDS ORDERED: PIPERACILLIN/TAZOBACTAM 3.375 GM VIAL IVPB ONE ×3 (00:38→18:02)
[2019-04-20] MEDS: PIPERACILLIN/TAZOB 3.375 GM 3.375 GM in DEXTROSE 5%-WATER - 50 ML IVPB SCH ×3 (01:45→18:05)
[2019-04-20 07:09] LABS: BASO % 0.3 % (0-2.0); HEMATOCRIT 37.1 % (35.4-49); HEMOGLOBIN 12.2 GM/dL (11.7-16.9); LYMPH % 17.3 % (8-40); MCH 26.6 pg (25.7-33.7); MCHC 32.9 g/dl (32.0-35.9); MEAN CELL VOLUME 80.9 fl (80-96); MEAN PLT VOLUME 7.4 fl (7.5-11.1); MONO % 9.1 % (3.8-10.2); NEUT % 72.3 % (42.8-82.8); PLATELET COUNT 341 K/MM3 (134-434); RBC 4.59 M/mm3 (4.00-5.60); RDW 13.9 % (11.9-15.9)
[2019-04-20 07:36] LABS: ALBUMIN 2.9 g/dl (3.4-5.0); BILIRUBIN,TOTAL 0.7 mg/dL (0.2-1); BLOOD UREA NITROGEN 24.3 mg/dL (7-18); CALCIUM 8.2 mg/dL (8.5-10.1); CREATININE 0.8 mg/dL (0.55-1.3); POTASSIUM 4.1 mmol/L (3.5-5.1); TOT PROT 5.9 g/dl (6.4-8.2)
[2019-04-20] MEDS ORDERED: traMADol HCL 50 MG TABLET PO ONE (10:15)
[2019-04-20] MEDS ORDERED: PT OWN MED DRAWER 7, Y5N ONE (10:45)
[2019-04-20] MEDS: predniSONE 20 MG TABLET (UD) PO SCH (10:48)
[2019-04-20] MEDS: PANTOPRAZOLE 40 MG TABLET (FP) PO SCH (10:48)
[2019-04-20] MEDS: HEPARIN NA (PORCINE) 5,000 UNITS/ML 1ML VIAL SQ SCH ×2 (10:50→21:32)
[2019-04-20] MEDS: BUDESONIDE/FORMETEROL FUMARATE 160/4.5 mcg INHALER IH SCH ×2 (10:50→21:32)
[2019-04-20] MEDS ORDERED: SODIUM CHLORIDE 1,000 ML IV SCH (11:42)
--- NOTE | 2019-04-20 11:42 | PN ---
Progress Note (short form) - Note Progress Note: Renal follow up for DEBORAH and lactic acidosis Seen and examined at the bedside continues to have abdominal pain no chest pain or shortness of breath making urine on IVF Vital Signs Temperature 98.2 F 04/20/19 08:51 Pulse Rate 70 04/20/19 08:51 Respiratory Rate 18 04/20/19 08:51 Blood Pressure 118/66 04/20/19 08:51 O2 Sat by Pulse Oximetry (%) 96 04/20/19 08:51 Intake & Output 04/17/19 04/18/19 04/19/19 04/20/19 23:59 23:59 23:59 23:59 Intake Total 0000 811 1739 1600 Output Total 225 841 2723 Balance 340 -100 -450 1600 NAD awake and alert RRR CTA soft NT/ND no LE edema CBC, BMP 04/20/19 06:30 04/20/19 06:30 Current Medications Budesonide/Formoterol Fumarate (Symbicort 160/4.5mcg -) 2 puff IH BID [facility] Last Admin: 04/20/19 10:50 Dose: 2 puff Heparin Sodium (Porcine) (Heparin -) 5,000 unit SQ BID [facility] Last Admin: 04/20/19 10:50 Dose: 5,000 unit Sodium Chloride (Normal Saline -) 1,000 mls @ 125 mls/hr IV ASDIR [facility] Last Admin: 04/19/19 11:58 Dose: 125 mls/hr Piperacillin Sod/Tazobactam (Sod 3.375 gm/ Dextrose) 50 mls @ 100 mls/hr IVPB Q8H-IV [facility]; Protocol Last Admin: 04/20/19 11:38 Dose: 100 mls/hr Montelukast Sodium (Singulair -) 10 mg PO HS [facility] Last Admin: 04/19/19 21:28 Dose: 10 mg Pantoprazole Sodium (Protonix -) 40 mg PO DAILY [facility] Last Admin: 04/20/19 10:48 Dose: 40 mg Prednisone (Deltasone -) 40 mg PO DAILY [facility] Last Admin: 04/20/19 10:48 Dose: 40 mg Impression 1. DEBORAH 2. hyperkalemia 3. copd 4. asthma 5. htn 6. polysubstance abuse - heroin and cocaine 7. active smoker 8. Lactic acidosis Plan Renal function is improved and stable Lactic acidosis now resolved can decrease rate of IVF If abdominal pain persists can consider CT imaging of Abd with contrast trend renal function and lactic acid daily Ravi chen Do
--- NOTE | 2019-04-20 15:50 | PN ---
Progress Note, Physician History of Present Illness: Pt is alert, afebrile, without distress. Still has mid abd pain (3/10 intensity ) but n/v/d or constipation. No SOB. Abd US without specific findings. - Current Medication List Current Medications: Active Medications Budesonide/Formoterol Fumarate (Symbicort 160/4.5mcg -) 2 puff IH BID [facility] Last Admin: 04/20/19 10:50 Dose: 2 puff Heparin Sodium (Porcine) (Heparin -) 5,000 unit SQ BID [facility] Last Admin: 04/20/19 10:50 Dose: 5,000 unit Piperacillin Sod/Tazobactam (Sod 3.375 gm/ Dextrose) 50 mls @ 100 mls/hr IVPB Q8H-IV [facility]; Protocol Last Admin: 04/20/19 11:38 Dose: 100 mls/hr Sodium Chloride (Normal Saline -) 1,000 mls @ 82 mls/hr IV ASDIR [facility] Last Admin: 04/20/19 11:51 Dose: 82 mls/hr Montelukast Sodium (Singulair -) 10 mg PO HS [facility] Last Admin: 04/19/19 21:28 Dose: 10 mg Pantoprazole Sodium (Protonix -) 40 mg PO DAILY [facility] Last Admin: 04/20/19 10:48 Dose: 40 mg Prednisone (Deltasone -) 40 mg PO DAILY [facility] Last Admin: 04/20/19 10:48 Dose: 40 mg - Objective Vital Signs: Vital Signs Temperature 98.2 F 04/20/19 08:51 Pulse Rate 70 04/20/19 08:51 Respiratory Rate 18 04/20/19 08:51 Blood Pressure 118/66 04/20/19 08:51 O2 Sat by Pulse Oximetry (%) 96 04/20/19 08:51 Constitutional: Yes: No Distress, Calm Cardiovascular: Yes: Regular Rate and Rhythm Respiratory: Yes: CTA Bilaterally Gastrointestinal: Yes: Normal Bowel Sounds, Soft, Tenderness (no guarding/no distension) Genitourinary: Yes: WNL Integumentary: Yes: WNL Neurological: Yes: Alert Labs: CBC, BMP 04/20/19 06:30 04/20/19 06:30 Microbiology 04/14/19 01:30 Blood - Peripheral Venous Blood Culture - Final NO GROWTH AFTER 5 DAYS INCUBATION 04/14/19 01:30 Blood - Peripheral Venous Blood Culture - Final NO GROWTH AFTER 5 DAYS INCUBATION 04/13/19 22:44 Urine - Urine Clean Catch Urine Culture - Final NO GROWTH OBTAINED - ....Imaging Ultrasound: Report Reviewed Problem List - Problems (1) Acute kidney injury Code(s): N17.9 - ACUTE KIDNEY FAILURE, UNSPECIFIED (2) Acute respiratory acidosis Code(s): E87.2 - ACIDOSIS (3) Heroin abuse Code(s): F11.10 - OPIOID ABUSE, UNCOMPLICATED (4) Leukocytosis Code(s): D72.829 - ELEVATED WHITE BLOOD CELL COUNT, UNSPECIFIED Qualifiers: Leukocytosis type: unspecified Qualified Code(s): D72.829 - Elevated white blood cell count, unspecified (5) Pneumonia Code(s): J18.9 - PNEUMONIA, UNSPECIFIED ORGANISM (6) Asthma exacerbation Code(s): J45.901 - UNSPECIFIED ASTHMA WITH (ACUTE) EXACERBATION Qualifiers: Asthma severity: severe Asthma persistence: persistent Qualified Code(s) : J45.51 - Severe persistent asthma with (acute) exacerbation (7) Nicotine dependence Code(s): F17.200 - NICOTINE DEPENDENCE, UNSPECIFIED, UNCOMPLICATED Qualifiers: Nicotine product type: cigarettes Substance use status: uncomplicated Qualified Code(s): F17.210 - Nicotine dependence, cigarettes, uncomplicated Assessment/Plan PNA Leukocytosis Lactic acidosis Asthma Exacerbation Heroin/Cocaine Abuse HTN Nicotine dependence -- wbc decreased since yesterday, lactic acid now normal -- renal function improved, continue antibiotics -- monitor wbc -- patient on prednisone -- c/o abdominal pain - US without specific findings, if persists consider CT -- stable vitals, without distress
[2019-04-20] MEDS ORDERED: ACETAMINOPHEN 325 MG TABLET (FP) PO ONE (18:00)
--- NOTE | 2019-04-20 21:28 | PN ---
Progress Note, Physician History of Present Illness: Pt having abdominal pain - Current Medication List Current Medications: Active Medications Budesonide/Formoterol Fumarate (Symbicort 160/4.5mcg -) 2 puff IH BID [facility] Last Admin: 04/20/19 10:50 Dose: 2 puff Heparin Sodium (Porcine) (Heparin -) 5,000 unit SQ BID [facility] Last Admin: 04/20/19 10:50 Dose: 5,000 unit Piperacillin Sod/Tazobactam (Sod 3.375 gm/ Dextrose) 50 mls @ 100 mls/hr IVPB Q8H-IV [facility]; Protocol Last Admin: 04/20/19 18:05 Dose: 100 mls/hr Sodium Chloride (Normal Saline -) 1,000 mls @ 82 mls/hr IV [facility] Last Admin: 04/20/19 11:51 Dose: 82 mls/hr Montelukast Sodium (Singulair -) 10 mg PO HS [facility] Last Admin: 04/19/19 21:28 Dose: 10 mg Pantoprazole Sodium (Protonix -) 40 mg PO DAILY [facility] Last Admin: 04/20/19 10:48 Dose: 40 mg Prednisone (Deltasone -) 40 mg PO DAILY [facility] Last Admin: 04/20/19 10:48 Dose: 40 mg - Objective Vital Signs: Vital Signs Temperature 97.6 F 04/20/19 18:00 Pulse Rate 75 04/20/19 18:00 Respiratory Rate 20 04/20/19 18:00 Blood Pressure 123/80 04/20/19 18:00 O2 Sat by Pulse Oximetry (%) 96 04/20/19 08:51 Neck: Yes: WNL, Supple Cardiovascular: Yes: WNL, Regular Rate and Rhythm Respiratory: Yes: WNL, Regular, CTA Bilaterally Gastrointestinal: Yes: WNL, Normal Bowel Sounds, Soft Labs: CBC, BMP 04/20/19 06:30 04/20/19 06:30 Problem List - Problems (1) Abdominal pain Assessment/Plan: ABD US showed fatty liver Cont protonix ?Related to heroin withdrawal Code(s): R10.9 - UNSPECIFIED ABDOMINAL PAIN (2) Pneumonia Assessment/Plan: Cont IV zosyn Lactic acid now normal Repeat CXR now normal Code(s): J18.9 - PNEUMONIA, UNSPECIFIED ORGANISM (3) Acute kidney injury Assessment/Plan: Creatinine now normal Code(s): N17.9 - ACUTE KIDNEY FAILURE, UNSPECIFIED (4) Asthma exacerbation Assessment/Plan: Cont nebulizers Cont PO prednisone Code(s): J45.901 - UNSPECIFIED ASTHMA WITH (ACUTE) EXACERBATION Qualifiers: Asthma severity: severe Asthma persistence: persistent Qualified Code(s) : J45.51 - Severe persistent asthma with (acute) exacerbation (5) HTN (hypertension) Assessment/Plan: Fluctuating BP Probably due to heroin w/drawal Code(s): I10 - ESSENTIAL (PRIMARY) HYPERTENSION (6) Opioid dependence with withdrawal Assessment/Plan: Addiction consult noted Code(s): 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
[2019-04-20] MEDS: MONTELUKAST NA 10 MG TABLET PO SCH (21:32)
[2019-04-20] MEDS ORDERED: ACETAMINOPHEN 325 MG TABLET (FP) PO PRN (22:58)
[2019-04-21] MEDS ORDERED: PIPERACILLIN/TAZOBACTAM 3.375 GM VIAL IVPB ONE ×3 (01:59→17:57)
[2019-04-21] MEDS ORDERED: DEXTROSE 5%-WATER - 50 ML IVPB ONE ×3 (01:59→17:57)
[2019-04-21] MEDS: PIPERACILLIN/TAZOB 3.375 GM 3.375 GM in DEXTROSE 5%-WATER - 50 ML IVPB SCH ×3 (02:05→18:20)
[2019-04-21 06:53] LABS: ALBUMIN 2.8 g/dl (3.4-5.0); BILIRUBIN,TOTAL 0.8 mg/dL (0.2-1); BLOOD UREA NITROGEN 17.7 mg/dL (7-18); CALCIUM 7.7 mg/dL (8.5-10.1); CREATININE 0.8 mg/dL (0.55-1.3); POTASSIUM 3.9 mmol/L (3.5-5.1); TOT PROT 5.5 g/dl (6.4-8.2)
[2019-04-21] MEDS: PANTOPRAZOLE 40 MG TABLET (FP) PO SCH (09:33)
[2019-04-21] MEDS: predniSONE 20 MG TABLET (UD) PO SCH (09:33)
[2019-04-21] MEDS: BUDESONIDE/FORMETEROL FUMARATE 160/4.5 mcg INHALER IH SCH ×2 (09:34→21:19)
--- NOTE | 2019-04-21 12:01 | PN ---
Progress Note, Physician History of Present Illness: Pt seen and examined at bedside. He is awake and alert. He denies shortness of breath. - Current Medication List Current Medications: Active Medications Acetaminophen (Tylenol -) 650 mg PO Q6H PRN PRN Reason: ABDOMINAL PAIN Last Admin: 04/21/19 09:38 Dose: 650 mg Budesonide/Formoterol Fumarate (Symbicort 160/4.5mcg -) 2 puff IH BID [facility] Last Admin: 04/21/19 09:34 Dose: 2 puff Piperacillin Sod/Tazobactam (Sod 3.375 gm/ Dextrose) 50 mls @ 100 mls/hr IVPB Q8H-IV [facility]; Protocol Last Admin: 04/21/19 09:33 Dose: 100 mls/hr Sodium Chloride (Normal Saline -) 1,000 mls @ 82 mls/hr IV ASDIR [facility] Last Admin: 04/20/19 11:51 Dose: 82 mls/hr Montelukast Sodium (Singulair -) 10 mg PO HS [facility] Last Admin: 04/20/19 21:32 Dose: 10 mg Pantoprazole Sodium (Protonix -) 40 mg PO DAILY [facility] Last Admin: 04/21/19 09:33 Dose: 40 mg Prednisone (Deltasone -) 40 mg PO DAILY [facility] Last Admin: 04/21/19 09:33 Dose: 40 mg - Objective Vital Signs: Vital Signs Temperature 98.7 F 04/21/19 09:00 Pulse Rate 68 04/21/19 09:00 Respiratory Rate 22 H 04/21/19 09:00 Blood Pressure 103/70 04/21/19 09:00 O2 Sat by Pulse Oximetry (%) 96 04/21/19 09:00 Constitutional: Yes: Calm Eyes: Yes: Conjunctiva Clear HENT: Yes: Atraumatic Neck: Yes: Supple Cardiovascular: Yes: S1, S2 Respiratory: Yes: CTA Bilaterally Gastrointestinal: Yes: Soft Genitourinary: Yes: WNL Musculoskeletal: Yes: WNL Edema: No Integumentary: Yes: WNL Neurological: Yes: Oriented Psychiatric: Yes: Oriented Labs: CBC, BMP 04/20/19 06:30 04/21/19 05:20 Problem List - Problems (1) Acute kidney injury Code(s): N17.9 - ACUTE KIDNEY FAILURE, UNSPECIFIED (2) Heroin abuse Code(s): F11.10 - OPIOID ABUSE, UNCOMPLICATED (3) Leukocytosis Code(s): D72.829 - ELEVATED WHITE BLOOD CELL COUNT, UNSPECIFIED Qualifiers: Leukocytosis type: unspecified Qualified Code(s): D72.829 - Elevated white blood cell count, unspecified Assessment/Plan Current Medications Generic Name Dose Route Start Last Admin Trade Name Freq PRN Reason Stop Dose Admin Acetaminophen 650 mg 04/20/19 22:58 04/21/19 09:38 Tylenol - PO 650 mg Q6H PRN Administration ABDOMINAL PAIN Budesonide/Formoterol Fumarate 2 puff 04/14/19 22:00 04/21/19 09:34 Symbicort 160/4.5mcg - IH 2 puff BID [facility] Administration Piperacillin Sod/Tazobactam 50 mls @ 100 mls/hr 04/19/19 18:00 04/21/19 09:33 Sod 3.375 gm/ Dextrose IVPB 100 mls/hr Q8H-IV [facility] Administration Protocol Sodium Chloride 1,000 mls @ 82 mls/hr 04/20/19 11:42 04/20/19 11:51 Normal Saline - IV 82 mls/hr ASDIR [facility] Administration Montelukast Sodium 10 mg 04/14/19 22:00 04/20/19 21:32 Singulair - PO 10 mg HS [facility] Administration Pantoprazole Sodium 40 mg 04/20/19 10:00 04/21/19 09:33 Protonix - PO 40 mg DAILY [facility] Administration Prednisone 40 mg 04/19/19 10:00 04/21/19 09:33 Deltasone - PO 40 mg DAILY [facility] Administration Impression 1. DEBORAH 2. hyperkalemia 3. copd 4. asthma 5. htn 6. polysubstance abuse - heroin and cocaine 7. active smoker 8. lactic acidosis resolving Plan - renal function stable - lactic acid stable - can d/c fluids - outpt follow up as needed - will follow prn
--- NOTE | 2019-04-21 13:42 | PN ---
Progress Note, Physician History of Present Illness: stable no new issues breathing well - Current Medication List Current Medications: Active Medications Acetaminophen (Tylenol -) 650 mg PO Q6H PRN PRN Reason: ABDOMINAL PAIN Last Admin: 04/21/19 09:38 Dose: 650 mg Budesonide/Formoterol Fumarate (Symbicort 160/4.5mcg -) 2 puff IH BID [facility] Last Admin: 04/21/19 09:34 Dose: 2 puff Piperacillin Sod/Tazobactam (Sod 3.375 gm/ Dextrose) 50 mls @ 100 mls/hr IVPB Q8H-IV VARSHA; Protocol Last Admin: 04/21/19 09:33 Dose: 100 mls/hr Montelukast Sodium (Singulair -) 10 mg PO HS [facility] Last Admin: 04/20/19 21:32 Dose: 10 mg Pantoprazole Sodium (Protonix -) 40 mg PO DAILY [facility] Last Admin: 04/21/19 09:33 Dose: 40 mg Prednisone (Deltasone -) 40 mg PO DAILY [facility] Last Admin: 04/21/19 09:33 Dose: 40 mg - Objective Vital Signs: Vital Signs Temperature 98.7 F 04/21/19 09:00 Pulse Rate 68 04/21/19 09:00 Respiratory Rate 22 H 04/21/19 09:00 Blood Pressure 103/70 04/21/19 09:00 O2 Sat by Pulse Oximetry (%) 96 04/21/19 09:00 Constitutional: Yes: No Distress, Calm Cardiovascular: Yes: S1, S2 Respiratory: Yes: Regular, CTA Bilaterally Gastrointestinal: Yes: Normal Bowel Sounds, Soft Musculoskeletal: Yes: WNL Extremities: Yes: WNL Neurological: Yes: Alert, Oriented Psychiatric: Yes: Alert, Oriented Labs: CBC, BMP 04/20/19 06:30 04/21/19 05:20 Assessment/Plan roblem List - Problems (1) Acute exacerbation of chronic obstructive pulmonary disease (COPD) Code(s): J44.1 - CHRONIC OBSTRUCTIVE PULMONARY DISEASE W (ACUTE) EXACERBATION (2) HTN (hypertension) Code(s): I10 - ESSENTIAL (PRIMARY) HYPERTENSION (3) Hypoxia Code(s): R09.02 - HYPOXEMIA (4) Mediastinal adenopathy Code(s): R59.0 - LOCALIZED ENLARGED LYMPH NODES (5) Acute respiratory failure with hypoxia and hypercarbia Code(s): J96.01 - ACUTE RESPIRATORY FAILURE WITH HYPOXIA; J96.02 - ACUTE RESPIRATORY FAILURE WITH HYPERCAPNIA (6) Asthma exacerbation Code(s): J45.901 - UNSPECIFIED ASTHMA WITH (ACUTE) EXACERBATION Qualifiers: Asthma severity: severe Asthma persistence: persistent Qualified Code(s) : J45.51 - Severe persistent asthma with (acute) exacerbation Assessment/Plan Problem List - Problems (1) Pneumonia Code(s): J18.9 - PNEUMONIA, UNSPECIFIED ORGANISM Assessment/Plan Acute Hypoxic and Hypercapneic Respiratory Failure Pneumonia Acute Asthma Exacerbation Heroin Abuse HTN Smoker Elevated lactate level plan continue abx resp support can stop abx tomorrowrest as per the team
[2019-04-21] MEDS: MONTELUKAST NA 10 MG TABLET PO SCH (21:19)
--- NOTE | 2019-04-21 22:39 | PN ---
Progress Note, Physician History of Present Illness: No further abdominal pain - Current Medication List Current Medications: Active Medications Acetaminophen (Tylenol -) 650 mg PO Q6H PRN PRN Reason: ABDOMINAL PAIN Last Admin: 04/21/19 09:38 Dose: 650 mg Budesonide/Formoterol Fumarate (Symbicort 160/4.5mcg -) 2 puff IH BID [facility] Last Admin: 04/21/19 21:19 Dose: 2 puff Piperacillin Sod/Tazobactam (Sod 3.375 gm/ Dextrose) 50 mls @ 100 mls/hr IVPB Q8H-IV VARSHA; Protocol Last Admin: 04/21/19 18:20 Dose: 100 mls/hr Montelukast Sodium (Singulair -) 10 mg PO HS [facility] Last Admin: 04/21/19 21:19 Dose: 10 mg Pantoprazole Sodium (Protonix -) 40 mg PO DAILY [facility] Last Admin: 04/21/19 09:33 Dose: 40 mg Prednisone (Deltasone -) 40 mg PO DAILY [facility] Last Admin: 04/21/19 09:33 Dose: 40 mg - Objective Vital Signs: Vital Signs Temperature 98.4 F 04/21/19 20:25 Pulse Rate 73 04/21/19 20:25 Respiratory Rate 20 04/21/19 21:00 Blood Pressure 123/81 04/21/19 20:25 O2 Sat by Pulse Oximetry (%) 96 04/21/19 21:00 Cardiovascular: Yes: WNL, Regular Rate and Rhythm Respiratory: Yes: WNL, Regular, CTA Bilaterally Gastrointestinal: Yes: WNL, Normal Bowel Sounds, Soft Labs: CBC, BMP 04/20/19 06:30 04/21/19 05:20 Problem List - Problems (1) Abdominal pain Assessment/Plan: ABD US showed fatty liver Cont protonix ?Related to heroin withdrawal Pain now resolved Code(s): R10.9 - UNSPECIFIED ABDOMINAL PAIN (2) Pneumonia Assessment/Plan: Cont IV zosyn Lactic acid now normal Repeat CXR now normal Possible dc planning for am Code(s): J18.9 - PNEUMONIA, UNSPECIFIED ORGANISM (3) Acute kidney injury Assessment/Plan: Creatinine now normal Code(s): N17.9 - ACUTE KIDNEY FAILURE, UNSPECIFIED (4) Asthma exacerbation Assessment/Plan: Cont nebulizers Cont PO prednisone Code(s): J45.901 - UNSPECIFIED ASTHMA WITH (ACUTE) EXACERBATION Qualifiers: Asthma severity: severe Asthma persistence: persistent Qualified Code(s) : J45.51 - Severe persistent asthma with (acute) exacerbation (5) HTN (hypertension) Assessment/Plan: BP now stable Code(s): I10 - ESSENTIAL (PRIMARY) HYPERTENSION (6) Opioid dependence with withdrawal Assessment/Plan: Addiction consult noted Code(s): 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
[2019-04-22] MEDS ORDERED: DEXTROSE 5%-WATER - 50 ML IVPB ONE ×2 (02:33→09:35)
[2019-04-22] MEDS ORDERED: PIPERACILLIN/TAZOBACTAM 3.375 GM VIAL IVPB ONE ×2 (02:33→09:35)
[2019-04-22] MEDS: PIPERACILLIN/TAZOB 3.375 GM 3.375 GM in DEXTROSE 5%-WATER - 50 ML IVPB SCH ×2 (02:47→09:56)
[2019-04-22] MEDS: PANTOPRAZOLE 40 MG TABLET (FP) PO SCH (09:55)
[2019-04-22] MEDS: predniSONE 20 MG TABLET (UD) PO SCH (09:55)
[2019-04-22] MEDS: BUDESONIDE/FORMETEROL FUMARATE 160/4.5 mcg INHALER IH SCH (09:56)
[2019-04-22 10:05] VITALS: BP 104/64; PULSE 81; TEMP 98.1
== END 2019-04-22 13:09 | disposition home or self-care (01) | DRG 133 ==
LOC: JER 19:08 → JERBED 22:06 → J4W 04-14 15:05
PROVIDERS: ADMIT Internal Medicine; ATTEND Internal Medicine
DX: J96.01 Acute respiratory failure with hypoxia (principal); N17.9 Acute kidney failure, unspecified; E87.2 Acidosis; I10 Essential (primary) hypertension; J44.9 Chronic obstructive pulmonary disease, unspecified; J96.02 Acute respiratory failure with hypercapnia; J18.9 Pneumonia, unspecified organism; J44.1 Chronic obstructive pulmonary disease with (acute) exacerbation; E87.5 Hyperkalemia; J45.51 Severe persistent asthma with (acute) exacerbation; F17.210 Nicotine dependence, cigarettes, uncomplicated; F11.23 Opioid dependence with withdrawal; R10.9 Unspecified abdominal pain; K76.0 Fatty (change of) liver, not elsewhere classified; R11.2 Nausea with vomiting, unspecified
CPT/HCPCS: 36415; 71045-TC-FY; 71250-TC; 74176-TC; 76705-TC; 80048; 80053; 81003; 82436; 82550; 82553; 82565; 82803; 83605; 83690; 84133; 84300; 84484; 85025; 87040; 87086; 87804; 93005; 93010; 94640; 99285-25; J0131; J1644; J7030

== ENCOUNTER 2019-10-02 19:53 | Inpatient (IN) | payer OTHER ==
[2019-10-02] MEDS ORDERED: methylPREDNISolone NA SUCC 125 MG/2 ML VIAL IVPUSH ONE (21:17)
[2019-10-02] MEDS ORDERED: ALBUTEROL SO4 2.5/IPRATROPIUM 0.5 INH SOL 3 ML VIAL.NEB. NEB ONE ×2 (21:17→21:25)
[2019-10-02] MEDS ORDERED: methylPREDNISolone NA SUCC 125 MG/2 ML VIAL ONE (21:26)
--- NOTE | 2019-10-02 21:38 | PDOC ---
History of Present Illness - General Chief Complaint: Weakness Stated Complaint: FALL Time Seen by Provider: 10/02/19 21:03 - History of Present Illness Initial Comments: 10/02/19 21:28 HPI: 48 y/o M with hx of Asthma/COPD, HTN, Current smoker, Heroin/Cocaine Use (inhalation) presenting with left thorax pain and SOB. He states last night (under unclear circumstances ?intoxication) he tripped and fell in the backyard and landed into a chair on his left anterior/lateral thorax. Pain worsened today. He tried a lidoderm and compression dressing but had no relief. Pain is no radiating and he is still ambulatory with no other pain. He denies head trauma or LOC at the time. He also reports SOB last night that worsened this mor fabienne. This morning he snuffed a 2-3bags of heroin and developed a cough, however, throughout the day the cough worsened in addition to SOB and wheezing. He denies fever, chills, chest pain, palp, n/v, dysuria. PMHx: as noted above ROS: as noted SHx: Denies tobacco use; +significant alcohol abuse; +significant heroin Allergies: NKDA ROS: GENERAL/CONSTITUTIONAL: No fever or chills. No weakness. HEAD, EYES, EARS, NOSE AND THROAT: No change in vision. No ear pain or discharge. No sore throat. CARDIOVASCULAR: No chest pain; +shortness of breath RESPIRATORY: +cough, wheezing GASTROINTESTINAL: No nausea, vomiting, diarrhea or constipation. GENITOURINARY: No dysuria, frequency, or change in urination. MUSCULOSKELETAL: +left rib pain SKIN: No rash NEUROLOGIC: No headache, vertigo, loss of consciousness, or change in strength/sensation. ENDOCRINE: No increased thirst. No abnormal weight change HEMATOLOGIC/LYMPHATIC: No anemia, easy bleeding, or history of blood clots. ALLERGIC/IMMUNOLOGIC: No hives or skin allergy. PE: GENERAL: Awake, alert, and fully oriented, no acute distress HEAD: No signs of trauma, normocephalic, atraumatic EYES: EOMI, sclera anicteric, conjunctiva clear ENT: Auricles normal inspection, hearing grossly normal, nares patent, oropharynx clear without exudates. Dry mucosa, poor dentition NECK: Normal ROM, no lymphadenopathy, no midline ttp LUNGS: +increased work of breathing, diffuse wheezing on auscultation R>L HEART: Regular rate, regular rhythm, normal S1 and S2, no murmur, peripheral pulses 2+ and equal bilaterally. ABDOMEN: Soft, nondistended, Left flank ecchymosis at the inferior costal margin with ttp along the ribs as well as LUQ pain, no hematoma. no rebound. No masses. No CVAT MUSCULOSKELETAL: FROM NEUROLOGICAL: Cranial nerves II through XII grossly intact. Normal speech, normal gait, no focal sensorimotor deficits SKIN: Warm, Dry, normal turgor, no rashes or lesions noted Past History - Medical History Allergies/Adverse Reactions: Allergies Allergy/AdvReac Type Severity Reaction Status Date / Time No Known Allergies Allergy Verified 08/27/19 05:51 Home Medications: Ambulatory Orders Albuterol Sulfate Inhaler - [Ventolin HFA Inhaler -] 1 - 2 inh PO QID PRN #1 inhaler 05/23/18 Budesonide/Formeterol Fumarate [SYMBICORT 80/4.5mcg -] 1 inh PO BID #1 inhaler 10/25/18 Budesonide/Formeterol Fumarate [SYMBICORT 160/4.5mcg -] 2 puff IH BID #1 inhaler 04/22/19 Montelukast Na [Singulair -] 10 mg PO HS #30 tablet 04/22/19 predniSONE [Deltasone -] 20 mg PO DAILY #15 tablet 05/29/19 Methylprednisolone [Medrol Dose Sunny] 4 mg PO ASDIR #21 tablet 08/27/19 Anemia: No Asthma: Yes Cancer: No Cardiac Disorders: No CVA: No COPD: No CHF: No DVT: No Dementia: No Diabetes: No GI Disorders: No Disorders: No HTN: Yes Hypercholesterolemia: No Kidney Stones: No Liver Disease: No Seizures: No Thyroid Disease: No - Surgical History Abdominal Surgery: No Appendectomy: No Cardiac Surgery: No Cholecystectomy: No Lung Surgery: No Neurologic Surgery: No Orthopedic Surgery: No - Reproductive History Testicular Surgery: No - Immunization History Td Vaccination: Yes Immunization Up to Date: Yes - Psycho-Social/Smoking History Smoking Status: Yes Smoking History: Unknown if ever smoked Years of Tobacco Use: 40 Have you smoked in the past 12 months: Yes Number of Cigarettes Smoked Daily: 3 If you are a former smoker, when did you quit?: 2017 Cigars Per Day: 0 'Breaking Loose' booklet given: 05/27/19 - Substance Abuse Hx (Audit-C & DAST Scrn) How often the patient has a drink containing alcohol: Never Score: In Men: 4 or > Positive; In Women: 3 or > Positive: 0 Screen Result (Pos requires Nsg. Audit-10AR): Negative In the last yr the pt used illegal drug/Rx for NonMed reason: Yes Score: Yes response is considered Positive: 1 Screen Result (Positive result requires Nsg. DAST-10): Positive *Physical Exam - Vital Signs Last Vital Signs Temp Pulse Resp BP Pulse Ox 98.5 F 96 H 19 149/77 100 10/02/19 20:42 10/02/19 20:42 10/02/19 20:42 10/02/19 20:42 10/02/19 20:42 ED Treatment Course - LABORATORY CBC & Chemistry Diagram: 10/02/19 21:45 10/02/19 21:22 - RADIOLOGY Radiology Studies Ordered: Category Date Time Status ABDOMEN & PELVIS CT WITH CONTR [CT] Stat CT Scan 10/02/19 21:[address] W/O CONTR [CT] Stat CT Scan 10/02/19 21:[address] WITHOUT CONTRAST [CT] Stat CT Scan 10/02/19 21:[address] WITHOUT CONTRAST [CT] Stat CT Scan 10/02/19 21:22 Ordered CXRPORT [CHEST X-RAY PORTABLE*] [RAD] Stat Radiology 10/02/19 21:22 Ordered - Medications Given in the ED: ED Medications Discontinued Medications Generic Name Dose Route Start Last Admin Trade Name Freq PRN Reason Stop Dose Admin Albuterol/Ipratropium 1 amp 10/02/19 21:17 10/02/19 21:28 Duoneb - NEB 10/02/19 21:18 1 amp ONCE ONE Administration Methylprednisolone Sodium Succinate 125 mg 10/02/19 21:17 10/02/19 21:28 Solu-Medrol - IVPUSH 10/02/19 21:18 125 mg ONCE ONE Administration Medical Decision Making - Medical Decision Making 10/02/19 21:38 48 y/o M with hx of Asthma/COPD, HTN, Current smoker, Heroin/Cocaine Use (inhalation) presenting with left thorax pain following a fall and SOB associated with wheezing. Initial sat 86-88% on RA improved to 96% on 2L, AF. PE with Left flank ecchymosis at the inferior costal margin with ttp along the ribs as well as LUQ pain, no hematoma. DDx includes asthma/copd exacerbation, pnx, splenic injury, MSK contusion, costal contusion -cbc, cmp, card profTaye jones, t&s, lipase, ekg, cxr, ct head, ct cpine, ct chest noncon, ct chest abd/pel with contrast -duo neb, solumedrol 10/03/19 00:14 resp status improved following intervention sats 98% on 2L patient refusing CT scan to evaluate contusion on left flank; patient a&0x3 and refusing with understanding; polysubstance abuse will admit for asthma/copd exacerbation and hypoxia Discharge - Discharge Information Problems reviewed: Yes Clinical Impression/Diagnosis: Acute exacerbation of chronic obstructive pulmonary disease (COPD), Hypoxia, Polysubstance abuse Condition: Stable - Admission Yes - Follow up/Referral Referrals: Eric Yanez MD [Primary Care Provider] - - Patient Discharge Instructions - Post Discharge Activity
[2019-10-02 21:56] LABS: BASO % 1.3 % (0-2.0); EOS % 5.5 % (0-4.5); HEMATOCRIT 34.3 % (35.4-49); LYMPH % 21.2 % (8-40); MCH 25.4 pg (25.7-33.7); MCHC 32.1 g/dl (32.0-35.9); MEAN CELL VOLUME 79.1 fl (80-96); MEAN PLT VOLUME 7.7 fl (7.5-11.1); MONO % 11.6 % (3.8-10.2); NEUT % 60.4 % (42.8-82.8); PLATELET COUNT 320 K/MM3 (134-434); RBC 4.34 M/mm3 (4.00-5.60); WHITE BLOOD COUNT 9.2 K/mm3 (4.0-10.0)
--- NOTE | 2019-10-02 21:56 | PDOC ---
Documentation entered by Sonia Celis SCRIBE, acting as scribe for Fatimah Fernandez MD. Fatimah Fernandez MD: This documentation has been prepared by the Lalita ortega Adrianna, SCRIBE, under my direction and personally reviewed by me in its entirety. I confirm that the documentation accurately reflects all work, treatment, procedures, and medical decision making performed by me. Attending Attestation - Resident Resident Name: RiosWally - ED Attending Attestation I have performed the following: I have examined & evaluated the patient, The case was reviewed & discussed with the resident, I agree w/resident's findings & plan, Exceptions are as noted - HPI HPI: 48 y.o male, PMH of polysubstance abuse (heroin, cocaine, EtOH, everyday smoker), asthma, COPD, HTN, presenting with left rib/flank pain and SOB. Patient notes he fell last night and hit the left side of his ribs/flank on a chair, and consequently has been experiencing progressively worsening pain since. Denies head trauma or LOC at that time. Patient's [pain is constant, worse with movement, achy on the left side, without radiation. He additionally complains of SOB with cough and wheezing, which has gotten worse since he snorted heroin this morning. Denies fevers, chills, nausea, vomit. No known sick contacts. Patient states he was recently tested for COVID19 and was negative. Allergies: NKA, NKDA Surgical History: None reported Social History: Heroin use (last used this morning). Cocaine use. EtOH use. Everyday smoker (~2 cigarettes per day for 10 years). PCP: Dr. Yanez - Physicial Exam PE: 10/02/19 21:51 awake alert lungs wheezing bilaterally crackles right base. heart rrr no mrg abd soft nt nd ext wwp. no edema. no calf tenderness left flank with eccymomsis ttp. no crepitus. no step off. nuero awake moves all four ext. drowsy. 10/02/19 22:56 - Medical Decision Making 10/02/19 21:54 48 yo male h/o etoh heroin abuse here sp fall yesterday c/o left flank/ rib pain and no w sob. plan xray r/o ptx , rib fracture. vsl pneumoni a treat bronchospasm with nebs. steroids. will need ct c/a/p and head due to recednt trauma r/o solid organ injury. 10/02/19 22:56 pt oxygens sats initially 86% on RA, post nebs. saturating 97% on 2 L NC. states overall breathing much improved. cxr negative for pna or fracture. no ptx. Heart Score/ECG Review #1 ECG reviewed & interpreted by me at: 22:58 General ECG Interpretation: Sinus Rhythm, Normal Rate (83), Normal Intervals, No acute ischemic changes Discharge - Discharge Information Problems reviewed: Yes Clinical Impression/Diagnosis: Acute exacerbation of chronic obstructive pulmonary disease (COPD), Hypoxia, Polysubstance abuse Condition: Stable Disposition: AGAINST MEDICAL ADVICE - Follow up/Referral - Patient Discharge Instructions - Post Discharge Activity
[2019-10-02 22:04] LABS: INR 1.08 (0.83-1.09); PROTHROMBIN TIME (PATIENT) 12.7 SEC (9.7-13.0)
[2019-10-02 22:06] LABS: ACTIVATED PTT 44.2 SECONDS (25.2-36.5)
[2019-10-02 22:25] LABS: N-TERMINAL BNP 103.5 pg/ml (5-125)
[2019-10-02 22:42] LABS: ALBUMIN 3.6 g/dl (3.4-5.0); ALK PHOS 103 U/L (45-117); ANION GAP 6 MMOL/L (8-16); BILIRUBIN,TOTAL 0.3 mg/dL (0.2-1); BLOOD UREA NITROGEN 13.3 mg/dL (7-18); CALCIUM 9.3 mg/dL (8.5-10.1); CHLORIDE 100 mmol/L (98-107); CO2 30 mmol/L (21-32); GLUCOSE,RANDOM 102 mg/dL (74-106); LIPASE 50 U/L (73-393); MAGNESIUM 2.3 mg/dL (1.8-2.4); POTASSIUM 4.8 mmol/L (3.5-5.1); SGOT/AST 17 U/L (15-37); SGPT/ALT 19 U/L (13-61); SODIUM 135 mmol/L (136-145); TOT PROT 7.2 g/dl (6.4-8.2)
--- NOTE | 2019-10-03 00:33 | PN ---
Teaching Attending Note Name of Resident: Jessica Gutierrez ATTENDING PHYSICIAN STATEMENT I saw and evaluated the patient. I reviewed the resident's note and discussed the case with the resident. I agree with the resident's findings and plan as documented. SUBJECTIVE: Patient is a 48 year old man with a PMH of Polysubstance abuse (heroin, cocaine, alcohol), Tobacco use, Asthma, COPD and HTN, presenting with left rib/flank pain and SOB. Patient notes he fell last night and hit the left side of his ribs/flank on a chair, and consequently has been experiencing progressively worsening pain since. Denies head trauma or loss of consciousness at that time. Patient describes pain as constant, worse with movement, achy on the left side, without radiation. He additionally complains of SOB with cough and wheezing, which has gotten worse since he snorted heroin this morning. Denies fevers, chills, nausea, vomiting, dysuria, diarrhea or frequency. Patient states he was recently tested for COVID19 and was negative. No sick contacts or recent travels. Family history is unremarkable. OBJECTIVE: Alert Vital Signs Period Temp Pulse Resp BP Sys/Devries Pulse Ox Last 24 Hr 98.5 F 89-96 18-19 144-149/77-81 95-100 HEENT: No Jaundice, eye redness or discharge, PERRLA, EOMI. Normocephalic, atraumatic. External ears are normal and hearing is grossly intact. No nasal discharge. Neck: Supple, nontender. No palpable adenopathy or thyromegaly. No JVD Chest: Good effort. Clear to auscultation and percussion. Heart: Regular. No S3, rub or murmur Abdomen: Not distended, soft, nontender and no HSM. No rebound or guarding. Normal bowel sounds. Ext: Peripheral pulses intact. No leg edema. Skin: Warm and dry. No petechiae, rash or ecchymosis. Neuro: Alert. Oriented x3. CN 2-12 grossly intact. Sensation grossly intact in all four extremities and DTR are symmetric. Psych: Appropriate mood and affect. Good insight. Home Medications Medication Instructions Recorded Albuterol Sulfate Inhaler - 1 - 2 inh PO QID PRN #1 inhaler 05/23/18 [Ventolin HFA Inhaler -] Budesonide/Formeterol Fumarate 1 inh PO BID #1 inhaler 10/25/18 [SYMBICORT 80/4.5mcg -] Budesonide/Formeterol Fumarate 2 puff IH BID #1 inhaler 04/22/19 [SYMBICORT 160/4.5mcg -] Montelukast Na [Singulair -] 10 mg PO HS #30 tablet 04/22/19 predniSONE [Deltasone -] 20 mg PO DAILY #15 tablet 05/29/19 Methylprednisolone [Medrol Dose 4 mg PO ASDIR #21 tablet 08/27/19 Sunny] Abnormal Lab Results 10/02/19 10/02/19 10/02/19 21:22 21:45 21:45 Hgb 11.0 L Hct 34.3 L MCV 79.1 L MCH 25.4 L Monocytes % 11.6 H D Eosinophils % 5.5 H D PTT (Actin FS) 44.2 H Sodium 135 L Anion Gap 6 L CK-MB (CK-2) 3.9 H Lipase 50 L ASSESSMENT AND PLAN: 1. Fall/COPD exacerbation/Acute hypoxic respiratory failure - Fall may have been due to alcohol intoxication or illicit drugs. Oxygen saturation was 86% on room air. No acute abnormality on CXR. May have been precipitated by illicit drugs. Will treat with Duoneb, Solumedrol, Symbicort, MgSO4, Azithromycin and oxygen. Consult Pulmonary. Result of CT scan of head, C-spine and chest pending. Viral testing for COVID-19 ordered and patient placed on airborne, droplet and contact isolation. Started on supplemental oxygen via nasal cannula. EKG shows NSR at 83/minute and QTc with no significant ST-T wave changes. Will continue comprehensive care for all of patients comorbid conditions. 2. Polysubstance/Alcohol abuse - Monitor closely for dryg withdrawal. Implement [facility] librium alcohol withdrawal protocol and do neurochecks. Implement seizure, fall and aspiration precautions. Treat with IV Banana bag, thiamine and folic acid. Monitor and replete electrolytes (Ca,Mg,K,P). Counseled patient about abstaining from alcohol and illicit drugs. Will consult music specialist and refer to alcohol/drug detox upon discharge. 3. Tobacco Use Counseled on risks associated with tobacco use. We will provide patient all the necessary assistance to facilitate smoking cessation and presc ribe Nicotine patch. 4. Low MCV Anemia - Cause unclear. Will do basic anemia work up including serial stool guaiacs, reticulocyte count and iron studies. Consult GI for colonoscopy. 5. Hypertension Will restart suitable outpatient antihypertensive drugs when clinically appropriate. Subsequently, will revise regimen to ensure [id number] excellent BP control. Patient counseled on the injurious effects of uncontrolled hypertension. Nonpharmacologic measures to control hypertension like weight loss, salt restriction and exercise stressed. Importance of adherence to treatment regimen and attainment of normotension emphasized. 6. DVT prophylaxis - Lovenox 40 mg SQ q 24 hours. 7. Advance directives - Full code
--- NOTE | 2019-10-03 00:42 | HP ---
CHIEF COMPLAINT: PCP: HISTORY OF PRESENT ILLNESS: ER course was notable for: (1) (2) (3) Recent Travel: PAST MEDICAL HISTORY: PAST SURGICAL HISTORY: Social History: Smoking: Alcohol: Drugs: Allergies No Known Allergies Allergy (Verified 08/27/19 05:51) HOME MEDICATIONS: Home Medications Medication Instructions Recorded Albuterol Sulfate Inhaler - 1 - 2 inh PO QID PRN #1 inhaler 05/23/18 [Ventolin HFA Inhaler -] Budesonide/Formeterol Fumarate 1 inh PO BID #1 inhaler 10/25/18 [SYMBICORT 80/4.5mcg -] Budesonide/Formeterol Fumarate 2 puff IH BID #1 inhaler 04/22/19 [SYMBICORT 160/4.5mcg -] Montelukast Na [Singulair -] 10 mg PO HS #30 tablet 04/22/19 predniSONE [Deltasone -] 20 mg PO DAILY #15 tablet 05/29/19 Methylprednisolone [Medrol Dose 4 mg PO ASDIR #21 tablet 08/27/19 Sunny] REVIEW OF SYSTEMS CONSTITUTIONAL: Absent: fever, chills, diaphoresis, generalized weakness, malaise, loss of appetite, weight change HEENT: Absent: rhinorrhea, nasal congestion, throat pain, throat swelling, difficulty swallowing, mouth swelling, ear pain, eye pain, visual changes CARDIOVASCULAR: Absent: chest pain, syncope, palpitations, irregular heart rate, lightheadedness, peripheral edema RESPIRATORY: Absent: cough, shortness of breath, dyspnea with exertion, orthopnea, wheezing, stridor, hemoptysis GASTROINTESTINAL: Absent: abdominal pain, abdominal distension, nausea, vomiting, diarrhea, constipation, melena, hematochezia GENITOURINARY: Absent: dysuria, frequency, urgency, hesitancy, hematuria, flank pain, genital pain MUSCULOSKELETAL: Absent: myalgia, arthralgia, joint swelling, back pain, neck pain SKIN: Absent: rash, itching, pallor HEMATOLOGIC/IMMUNOLOGIC: Absent: easy bleeding, easy bruising, lymphadenopathy, frequent infections ENDOCRINE: Absent: unexplained weight gain, unexplained weight loss, heat intolerance, cold intolerance NEUROLOGIC: Absent: headache, focal weakness or paresthesias, dizziness, unsteady gait, seizure, mental status changes, bladder or bowel incontinence PSYCHIATRIC: Absent: anxiety, depression, suicidal or homicidal ideation, hallucinations. PHYSICAL EXAMINATION Vital Signs - 24 hr 10/02/19 10/02/19 10/02/19 20:37 20:42 23:40 Temperature 98.5 F Pulse Rate 96 H Pulse Rate [ 89 Right Brachial] Respiratory 19 18 Rate Blood Pressure 149/77 Blood Pressure 144/81 [Right Arm] O2 Sat by Pulse 96 100 95 Oximetry (%) GENERAL: Awake, alert, and fully oriented, in no acute distress. HEAD: Normal with no signs of trauma. EYES: Pupils equal, round and reactive to light, extraocular movements intact, sclera anicteric, conjunctiva clear. No lid lag. EARS, NOSE, THROAT: Ears normal, nares patent, oropharynx clear without exudates. Moist mucous membranes. NECK: Normal range of motion, supple without lymphadenopathy, JVD, or masses. LUNGS: Breath sounds equal, clear to auscultation bilaterally. No wheezes, and no crackles. No accessory muscle use. HEART: Regular rate and rhythm, normal S1 and S2 without murmur, rub or gallop. ABDOMEN: Soft, nontender, not distended, normoactive bowel sounds, no guarding, no rebound, no masses. No hepatomegaly or splenomegaly. MUSCULOSKELETAL: Normal range of motion at all joints. No bony deformities or tenderness. No CVA tenderness. UPPER EXTREMITIES: 2+ pulses, warm, well-perfused. No cyanosis. No clubbing. No peripheral edema. LOWER EXTREMITIES: 2+ pulses, warm, well-perfused. No calf tenderness. No peripheral edema. NEUROLOGICAL: Cranial nerves II-XII intact. Normal speech. Normal gait. PSYCHIATRIC: Cooperative. Good eye contact. Appropriate mood and affect. SKIN: Warm, dry, normal turgor, no rashes or lesions noted, normal capillary refill. Laboratory Results - last 24 hr 10/02/19 10/02/19 10/02/19 21:22 21:27 21:45 WBC 9.2 RBC 4.34 Hgb 11.0 L Hct 34.3 L MCV 79.1 L MCH 25.4 L MCHC 32.1 RDW 15.0 Plt Count 320 MPV 7.7 Absolute Neuts (auto) 5.6 Neutrophils % 60.4 D Lymphocytes % 21.2 D Monocytes % 11.6 H D Eosinophils % 5.5 H D Basophils % 1.3 D Nucleated RBC % 0 PT with INR INR PTT (Actin FS) Sodium 135 L Potassium 4.8 Chloride 100 Carbon Dioxide 30 Anion Gap 6 L BUN 13.3 Creatinine 1.0 Est GFR (CKD-EPI)AfAm 103.42 Est GFR (CKD-EPI)NonAf 89.23 Random Glucose 102 Calcium 9.3 Magnesium 2.3 Total Bilirubin 0.3 AST 17 ALT 19 Alkaline Phosphatase 103 Creatine Kinase 183 Creatine Kinase Index 2.1 CK-MB (CK-2) 3.9 H Troponin I < 0.02 B-Natriuretic Peptide 103.5 Total Protein 7.2 Albumin 3.6 Lipase 50 L Alcohol, Quantitative < 3 10/02/19 21:45 WBC RBC Hgb Hct MCV MCH MCHC RDW Plt Count MPV Absolute Neuts (auto) Neutrophils % Lymphocytes % Monocytes % Eosinophils % Basophils % Nucleated RBC % PT with INR 12.70 INR 1.08 PTT (Actin FS) 44.2 H Sodium Potassium Chloride Carbon Dioxide Anion Gap BUN Creatinine Est GFR (CKD-EPI)AfAm Est GFR (CKD-EPI)NonAf Random Glucose Calcium Magnesium Total Bilirubin AST ALT Alkaline Phosphatase Creatine Kinase Creatine Kinase Index CK-MB (CK-2) Troponin I B-Natriuretic Peptide Total Protein Albumin Lipase Alcohol, Quantitative ASSESSMENT/PLAN: ATTENDING PHYSICIAN STATEMENT I saw and evaluated the patient. I reviewed the resident's note and discussed the case with the resident. I agree with the resident's findings and plan as documented. SUBJECTIVE: OBJECTIVE: ASSESSMENT AND PLAN:
[2019-10-03] MEDS ORDERED: HEPARIN NA (PORCINE) 5,000 UNITS/ML 1ML VIAL SQ SCH (10:00)
[2019-10-03 10:02] VITALS: BMI 25.5
--- NOTE | 2019-10-03 10:25 | EKG ---
Test Reason : Blood Pressure : / mmHG Vent. Rate : 083 BPM Atrial Rate : 083 BPM P-R Int : 174 ms QRS Dur : 084 ms QT Int : 352 ms P-R-T Axes : 000 094 112 degrees QTc Int : 413 ms NORMAL SINUS RHYTHM RIGHTWARD AXIS WHEN COMPARED WITH ECG OF 06-SEP-2019 22:43, QUESTIONABLE CHANGE IN QRS AXIS Confirmed by NIRMAL MACKAY MD ([id number]) on 10/03/2019 10:24:51 AM Referred By: Confirmed By:NIRMAL MACKAY MD
[2019-10-03] MEDS ORDERED: PT OWN MED DRAWER 7, Y5N ONE ×2 (10:37→16:41)
[2019-10-03] MEDS: BUDESONIDE/FORMETEROL FUMARATE 160/4.5 mcg INHALER IH SCH ×2 (10:40→21:21)
[2019-10-03] MEDS: methylPREDNISolone NA SUCC 40 MG/1 ML VIAL IVPUSH SCH ×2 (10:40→17:42)
--- NOTE | 2019-10-03 12:19 | PN ---
Progress Note (short form) - Note Progress Note: PULMONARY CONSULTATION DICTATED 10/03/19 IMP HYPOXEMIA ACUTE ASTHMA/COPD EXACERBATION SUBSTANCE ABUSE TOBACCO ABUSE ANEMIA PLAN SUPPLEMENTAL O2 INHALED BRONCHODILATORS STEROIDS PEAK FLOW SMOKING CESSATION COUNSELED DR THOMPSON Problem List - Problems (1) Acute exacerbation of chronic obstructive pulmonary disease (COPD) Code(s): J44.1 - CHRONIC OBSTRUCTIVE PULMONARY DISEASE W (ACUTE) EXACERBATION (2) Hypoxia Code(s): R09.02 - HYPOXEMIA (3) Polysubstance abuse Code(s): F19.10 - OTHER PSYCHOACTIVE SUBSTANCE ABUSE, UNCOMPLICATED (4) Diabetes Code(s): E11.9 - TYPE 2 DIABETES MELLITUS WITHOUT COMPLICATIONS (5) Heroin abuse Code(s): F11.10 - OPIOID ABUSE, UNCOMPLICATED (6) Hyperlipidemia Code(s): E78.5 - HYPERLIPIDEMIA, UNSPECIFIED (7) Opioid dependence Code(s): F11.20 - OPIOID DEPENDENCE, UNCOMPLICATED (8) Shortness of breath Code(s): R06.02 - SHORTNESS OF BREATH (9) Asthma Code(s): J45.909 - UNSPECIFIED ASTHMA, UNCOMPLICATED Qualifiers: (10) Cocaine dependence, uncomplicated Code(s): F14.20 - COCAINE DEPENDENCE, UNCOMPLICATED (11) Nicotine dependence Code(s): F17.200 - NICOTINE DEPENDENCE, UNSPECIFIED, UNCOMPLICATED Qualifiers:
[2019-10-03] MEDS: ALBUTEROL SO4 2.5/IPRATROPIUM 0.5 INH SOL 3 ML VIAL.NEB. NEB PRN (17:01)
[2019-10-03] MEDS ORDERED: ACETAMINOPHEN 325 MG TABLET (FP) PO ONE ×2 (17:03→17:30)
--- NOTE | 2019-10-03 18:45 | CONS ---
DATE OF CONSULTATION: 10/03/2019 PULMONARY CONSULTATION REFERRING PHYSICIAN: Flavia Diaz MD. HISTORY OF PRESENT ILLNESS: The patient is a 48-year-old male well known to me from previous hospitalization and past medical history of chronic asthma, COPD, hypertension, longstanding history of tobacco use and is still smoking, substance abuse, snorts heroin and cocaine last being day of admission, plus noncompliance with medication admitted to [facility] on October 01 with increasing shortness of breath and wheezing. Patient apparently the day prior tripped himself in the backyard landing on his chair and had left anterior lateral thoracic pain which also increased on the day of admission. He took Lidoderm and compression dressing which offered no relief. On the day of admission, he also complained of increased shortness of breath and wheezing. Apparently he snorted 2-3 doses of heroin prior to admission, started developing a cough which increased throughout the day associated with shortness of breath. He presented to the emergency room with the above. In the ER, he was noted to be hypoxemic with saturations in the mid 80s at which time he was placed on supplemental O2. The patient was subsequently transferred to medical floor for further treatment. PAST MEDICAL HISTORY: Again includes hypertension, asthma, COPD, longstanding history of tobacco use still smoking, substance abuse with cocaine and heroin. CURRENT MEDICATIONS: Include: 1. Symbicort. 2. Solu-Medrol. 3. DuoNeb. REVIEW OF SYSTEMS: Positive for shortness of breath. Positive cough. Positive wheezing. Mild chest pain. No fever. No chills. No hemoptysis. No abdominal pain. PHYSICAL EXAMINATION: General: The patient is a well-developed, well-nourished male, awake, alert, currently in no acute distress. He is afebrile. Vital Signs: Blood pressure is 146/92, respiratory rate 16, O2 saturation is 92% on 3 L nasal cannula. HEENT: Normocephalic, atraumatic. Neck: Supple. Heart: Regular S1, S2. Chest: Bilateral wheezes. Abdomen: Soft, bowel sounds positive. Extremities: No cyanosis, edema. LABORATORY: WBC is 9.2, hemoglobin 11, hematocrit 34.3, platelet count of 320,000. BUN 13, creatinine 1.0. Chest CT no infiltrates, no effusions, no masses. Head CT within normal limits. C-spine no evidence of fracture. Abdominal, pelvic CT unremarkable. IMPRESSION: 1. Hypoxemia status post acute asthma, chronic obstructive pulmonary disease exacerbation. 2. Substance abuse, cocaine and heroin. 3. Tobacco abuse. 4. Anemia. Suggest supplemental O2, inhaled bronchodilators. IV steroids. Monitor peak flows. Smoking cessation counseled. Stressed compliance with medications. ANGELA THOMPSON M.D. [id number]
--- NOTE | 2019-10-03 21:56 | HP ---
Admitting History and Physical - Admission History of Present Illness: Pt is a 48 y.o male w/ PMH significant for polysubstance abuse (heroin, cocaine, EtOH, everyday smoker), asthma, COPD, HTN, presenting with left rib/flank pain and SOB. Patient notes he fell and hit the left side of his ribs/flank on a chair, and consequently has been experiencing progressively worsening pain since. Denies head trauma or LOC at that time. Patient's pain is constant, worse with movement, achy on the left side, without radiation. He additionally complains of SOB with cough and wheezing, which has gotten worse since he snorted heroin this morning. - Past Medical History Cardiovascular: Yes: HTN Pulmonary: Yes: Asthma, Bronchitis, COPD, Pneumonia Psych: Yes: Addictions (heroin) - Past Surgical History Past Surgical History: Yes: None - Smoking History Smoking history: Unknown if ever smoked Have you smoked in the past 12 months: Yes Aproximately how many cigarettes per day: 3 If you are a former smoker, when did you quit?: 2017 - Alcohol/Substance Use Hx Alcohol Use: No History of Substance Use: reports: Heroin - Social History ADL: Independent Occupation: Unemployed History of Recent Travel: No Home Medications - Allergies Allergies/Adverse Reactions: Allergies Allergy/AdvReac Type Severity Reaction Status Date / Time No Known Allergies Allergy Verified 10/19/19 18:33 - Home Medications Home Medications: Ambulatory Orders Albuterol Sulfate Inhaler - [Ventolin HFA Inhaler -] 1 - 2 inh PO QID PRN #1 inhaler 05/23/18 Budesonide/Formeterol Fumarate [SYMBICORT 160/4.5mcg -] 2 puff IH BID #1 inhaler 04/22/19 Budesonide/Formeterol Fumarate [SYMBICORT 160/4.5mcg -] 2 puff IH BID #1 cannister 10/19/19 predniSONE [Deltasone -] 40 mg PO DAILY #4 tablet 10/19/19 Family Medical History Family History: Unremarkable Review of Systems - Review of Systems Constitutional: reports: No Symptoms Eyes: reports: No Symptoms HENT: reports: No Symptoms Neck: reports: No Symptoms Cardiovascular: reports: Shortness of Breath Respiratory: reports: Cough, SOB, Wheezing Gastrointestinal: reports: No Symptoms Genitourinary: reports: No Symptoms Physical Examination Vital Signs: Vital Signs Temperature 98.3 F 10/03/19 18:00 Pulse Rate 89 10/03/19 18:00 Respiratory Rate 20 10/03/19 18:00 Blood Pressure 133/66 10/03/19 18:00 O2 Sat by Pulse Oximetry (%) 92 L 10/03/19 10:00 Constitutional: Yes: Well Nourished Eyes: Yes: WNL HENT: Yes: WNL Neck: Yes: WNL, Supple Cardiovascular: Yes: WNL, Regular Rate and Rhythm Respiratory: Yes: Wheezes Gastrointestinal: Yes: WNL, Normal Bowel Sounds, Soft Musculoskeletal: Yes: WNL Extremities: Yes: WNL Edema: No Neurological: Yes: WNL, Alert, Oriented ...Motor Strength: WNL Labs: CBC, BMP 10/02/19 21:45 10/02/19 21:22 Problem List - Problems (1) Asthma exacerbation Assessment/Plan: Cont IV steroids Cont inhalers/nebulizers Pulmonary consult Code(s): J45.901 - UNSPECIFIED ASTHMA WITH (ACUTE) EXACERBATION Qualifiers: (2) Anemia Assessment/Plan: Due to chronic dz Code(s): D64.9 - ANEMIA, UNSPECIFIED (3) Polysubstance abuse Assessment/Plan: Main problem is heroin abuse Treat w/ clonidine Addiction consult Code(s): F19.10 - OTHER PSYCHOACTIVE SUBSTANCE ABUSE, UNCOMPLICATED
[2019-10-03] MEDS: HEPARIN NA (PORCINE) 5,000 UNITS/ML 1ML VIAL SQ SCH (22:10)
[2019-10-03] MEDS: cloNIDine HCL 0.1 MG TABLET PO SCH (22:10)
[2019-10-03] MEDS: diphenhydrAMINE HCL 25 MG CAPSULE (FP) PO PRN (22:17)
[2019-10-04] MEDS: methylPREDNISolone NA SUCC 40 MG/1 ML VIAL IVPUSH SCH ×3 (02:09→17:05)
--- NOTE | 2019-10-04 08:57 | CONSULT ---
Consult Detox [facility] Reason for Current Admission/Consult: Polysyubstance use disorder Referred by:: Flavia Diaz - History History of Present Illness: 48 years old with h/o asthma, multiple ER admissions for exacerbation, last detox admission 11/2018 for heroin and alcohol use. also uses xanax. Never worked, lives with mother. He is well known to [facility] and is non-compliant with all medications. alcohol- 10 beers/day, with no history of seizures or blackouts heroin 10-12 bags/day, sniffing, last OD 10/2018, seen at [facility], does not have a narcan kit. Denies marijuana use Xanax- 3-4 bars, 1mg Cocaine - occ use $20/day - History Source History Provided By: Medical Record Limitations to Obtaining History: No Limitations - Alcohol/Substance Use Hx Alcohol Use: Yes Hx Substance Use: Yes (cocaine, heroin, benzodiazepines) Hx Substance Use Treatment: Yes (multiple detoxes with failure) - Past Medical History Cardio/Vascular: Yes: HTN Pulmonary: Yes: Asthma, Bronchitis, COPD, Pneumonia Psych: Yes: Addictions (heroin) - Past Surgical History Past Surgical History: Yes: None - Significant Medical Findings: Temperature 98.3 F 10/03/19 18:00 Pulse Rate 89 10/03/19 18:00 Respiratory Rate 20 10/03/19 18:00 Blood Pressure 133/66 10/03/19 18:00 O2 Sat by Pulse Oximetry (%) 92 L 10/03/19 10:00 Labs: CBC, BMP 10/02/19 21:45 10/02/19 21:22 Assessment Plan - Diagnosis (1) Polysubstance abuse Status: Acute (2) Asthma exacerbation Status: Acute Qualifiers: Asthma severity: moderate Asthma persistence: unspecified Qualified Code(s): J45.901 - Unspecified asthma with (acute) exacerbation (3) COPD exacerbation Status: Acute (4) Diabetes Status: Acute (5) HTN (hypertension) Status: Acute (6) Hyperlipidemia Status: Acute (7) Opioid dependence Status: Acute - Plan Plan: 1. Polysubstance Abuse: Mainly opioid dependence is his main AURA. Spoke to resident in ED yesterday with regard to management of patient. Once his COPD is under control, if he wishes he can enter detox. However, from the COWS down in ER he was not in much withdrawals but it may have been mitigated by his concurrent use of benzodiazepines which put him at a higher risk for overdose on opioids. Management of his use disorder would include evaluating if he truly has withdrawals currently and perhaps starting a methadone detox protocol. That was not clear to the resident in ED yesterday. However, if he is exhibiting further withdrawals now that the benzodiazepines have effectively run its course, then he can be started on a methadone detox protocol. If he is medically stable, he can also be transferred to [facility] for start or continuation of detox. Dr. Gonzalez
[2019-10-04] MEDS: HEPARIN NA (PORCINE) 5,000 UNITS/ML 1ML VIAL SQ SCH ×2 (09:33→21:03)
[2019-10-04] MEDS: BUDESONIDE/FORMETEROL FUMARATE 160/4.5 mcg INHALER IH SCH ×2 (09:34→21:03)
[2019-10-04] MEDS: cloNIDine HCL 0.1 MG TABLET PO SCH ×2 (09:34→21:03)
[2019-10-04 10:31] LABS: BASO % 0.1 % (0-2.0); MCH 25.1 pg (25.7-33.7); MCHC 31.7 g/dl (32.0-35.9); MEAN CELL VOLUME 79.2 fl (80-96); MEAN PLT VOLUME 7.9 fl (7.5-11.1); MONO % 5.2 % (3.8-10.2); NEUT % 87.7 % (42.8-82.8); PLATELET COUNT 369 K/MM3 (134-434); RDW 15.2 % (11.9-15.9); WHITE BLOOD COUNT 8.7 K/mm3 (4.0-10.0)
[2019-10-04 11:07] LABS: ALBUMIN 3.4 g/dl (3.4-5.0); BILIRUBIN,TOTAL 0.4 mg/dL (0.2-1); BLOOD UREA NITROGEN 19.9 mg/dL (7-18); CREATININE 0.7 mg/dL (0.55-1.3); POTASSIUM 4.5 mmol/L (3.5-5.1); TOT PROT 6.8 g/dl (6.4-8.2)
--- NOTE | 2019-10-04 14:22 | PN ---
Progress Note (short form) - Note Progress Note: In bed. Breathing feels a little better today. Still with SOB and wheezing. Intake & Output 10/01/19 10/02/19 10/03/19 10/04/19 23:59 23:59 23:59 23:59 Intake Total 420 10 Balance 420 10 Weight 190 lb 172 lb 14.4 oz Last Vital Signs Temp Pulse Resp BP Pulse Ox 97.4 F L 68 14 118/69 95 10/04/19 09:56 10/04/19 09:56 10/04/19 09:56 10/04/19 09:56 10/04/19 09:00 Active Medications Acetaminophen (Tylenol -) 650 mg PO Q6H PRN PRN Reason: PAIN LEVEL 6-10 Albuterol/Ipratropium (Duoneb -) 1 amp NEB Q6H PRN PRN Reason: SHORTNESS OF BREATH Last Admin: 10/03/19 17:01 Dose: 1 amp Documented by: Budesonide/Formoterol Fumarate (Symbicort 160/4.5mcg -) 2 puff IH BID [facility] Last Admin: 10/04/19 09:34 Dose: 2 puff Documented by: Clonidine (Catapres -) 0.1 mg PO BID [facility] Last Admin: 10/04/19 09:34 Dose: 0.1 mg Documented by: Diphenhydramine HCl (Benadryl -) 50 mg PO HS PRN PRN Reason: INSOMNIA Last Admin: 10/03/19 22:17 Dose: 50 mg Documented by: Heparin Sodium (Porcine) (Heparin -) 5,000 unit SQ BID [facility] Last Admin: 10/04/19 09:33 Dose: Not Given Documented by: Methylprednisolone Sodium Succinate (Solu-Medrol -) 40 mg IVPUSH Q8H-IV [facility] Last Admin: 10/04/19 09:34 Dose: 40 mg Documented by: GENERAL: Awake, alert, and fully oriented, no acute distress HEAD: No signs of trauma, normocephalic, atraumatic EYES: EOMI, sclera anicteric, conjunctiva clear ENT: Auricles normal inspection, hearing grossly normal, nares patent, oropharynx clear without exudates. Dry mucosa, poor dentition NECK: Normal ROM, no lymphadenopathy, no midline ttp LUNGS: Bilateral diffuse expiratory wheezing HEART: Regular rate, regular rhythm, normal S1 and S2, no murmur, peripheral pulses 2+ and equal bilaterally. ABDOMEN: Soft, nondistended, Left flank (+) ecchymosis MUSCULOSKELETAL: FROM NEUROLOGICAL: Non-focal SKIN: Warm, Dry, normal turgor, no rashes or lesions noted Laboratory Results - last 24 hr 10/02/19 10/04/19 10/04/19 13:03 10:07 10:07 WBC 8.7 RBC 4.80 Hgb 12.0 Hct 38.0 MCV 79.2 L MCH 25.1 L MCHC 31.7 L RDW 15.2 Plt Count 369 MPV 7.9 Absolute Neuts (auto) 7.7 Neutrophils % 87.7 H D Lymphocytes % 7.0 L D Monocytes % 5.2 Eosinophils % 0.0 D Basophils % 0.1 Nucleated RBC % 0 Sodium 137 Potassium 4.5 Chloride 102 Carbon Dioxide 31 Anion Gap 5 L BUN 19.9 H Creatinine 0.7 Est GFR (CKD-EPI)AfAm 130.25 Est GFR (CKD-EPI)NonAf 112.38 Random Glucose 136 H Calcium 9.0 Total Bilirubin 0.4 AST 8 L ALT 15 Alkaline Phosphatase 84 Total Protein 6.8 Albumin 3.4 Blood Type O POSITIVE Antibody Screen Negative Problem List - Problems (1) Acute exacerbation of chronic obstructive pulmonary disease (COPD) Code(s): J44.1 - CHRONIC OBSTRUCTIVE PULMONARY DISEASE W (ACUTE) EXACERBATION (2) Hypoxia Code(s): R09.02 - HYPOXEMIA (3) Polysubstance abuse Code(s): F19.10 - OTHER PSYCHOACTIVE SUBSTANCE ABUSE, UNCOMPLICATED (4) Diabetes Code(s): E11.9 - TYPE 2 DIABETES MELLITUS WITHOUT COMPLICATIONS (5) Heroin abuse Code(s): F11.10 - OPIOID ABUSE, UNCOMPLICATED (6) Hyperlipidemia Code(s): E78.5 - HYPERLIPIDEMIA, UNSPECIFIED (7) Opioid dependence Code(s): F11.20 - OPIOID DEPENDENCE, UNCOMPLICATED (8) Shortness of breath Code(s): R06.02 - SHORTNESS OF BREATH (9) Asthma Code(s): J45.909 - UNSPECIFIED ASTHMA, UNCOMPLICATED Qualifiers: (10) Cocaine dependence, uncomplicated Code(s): F14.20 - COCAINE DEPENDENCE, UNCOMPLICATED (11) Nicotine dependence Code(s): F17.200 - NICOTINE DEPENDENCE, UNSPECIFIED, UNCOMPLICATED Qualifiers: IMP HYPOXEMIA ACUTE ASTHMA/COPD EXACERBATION SUBSTANCE ABUSE TOBACCO ABUSE ANEMIA PLAN SUPPLEMENTAL O2 INHALED BRONCHODILATORS STEROIDS PEAK FLOW SMOKING CESSATION COUNSELED Dr Grover
--- NOTE | 2019-10-04 18:05 | PN ---
Progress Note, Physician History of Present Illness: No new complaints - Current Medication List Current Medications: Active Medications Acetaminophen (Tylenol -) 650 mg PO Q6H PRN PRN Reason: PAIN LEVEL 6-10 Albuterol/Ipratropium (Duoneb -) 1 amp NEB Q6H PRN PRN Reason: SHORTNESS OF BREATH Last Admin: 10/03/19 17:01 Dose: 1 amp Documented by: Budesonide/Formoterol Fumarate (Symbicort 160/4.5mcg -) 2 puff IH BID [facility] Last Admin: 10/04/19 09:34 Dose: 2 puff Documented by: Clonidine (Catapres -) 0.1 mg PO BID [facility] Last Admin: 10/04/19 09:34 Dose: 0.1 mg Documented by: Diphenhydramine HCl (Benadryl -) 50 mg PO HS PRN PRN Reason: INSOMNIA Last Admin: 10/03/19 22:17 Dose: 50 mg Documented by: Heparin Sodium (Porcine) (Heparin -) 5,000 unit SQ BID [facility] Last Admin: 10/04/19 09:33 Dose: Not Given Documented by: Methylprednisolone Sodium Succinate (Solu-Medrol -) 40 mg IVPUSH Q8H-IV [facility] Last Admin: 10/04/19 17:05 Dose: 40 mg Documented by: - Objective Vital Signs: Vital Signs Temperature 98.4 F 10/04/19 18:03 Pulse Rate 71 10/04/19 18:03 Respiratory Rate 14 10/04/19 18:03 Blood Pressure 110/57 L 10/04/19 18:03 O2 Sat by Pulse Oximetry (%) 95 10/04/19 09:00 Neck: Yes: WNL, Supple Cardiovascular: Yes: WNL, Regular Rate and Rhythm Respiratory: Yes: Diminished Gastrointestinal: Yes: WNL, Normal Bowel Sounds, Soft Labs: CBC, BMP 10/04/19 10:07 10/04/19 10:07 INR, PTT INR 1.08 (0.83-1.09) 10/02/19 21:45 Problem List - Problems (1) Asthma exacerbation Assessment/Plan: Cont IV steroids Cont inhalers/nebulizers Pulmonary consult Code(s): J45.901 - UNSPECIFIED ASTHMA WITH (ACUTE) EXACERBATION Qualifiers: (2) Polysubstance abuse Assessment/Plan: Main problem is heroin abuse Treat w/ clonidine Addiction consult Code(s): F19.10 - OTHER PSYCHOACTIVE SUBSTANCE ABUSE, UNCOMPLICATED
[2019-10-04] MEDS: diphenhydrAMINE HCL 25 MG CAPSULE (FP) PO PRN (21:01)
[2019-10-05] MEDS: methylPREDNISolone NA SUCC 40 MG/1 ML VIAL IVPUSH SCH ×3 (01:40→17:32)
[2019-10-05] MEDS: cloNIDine HCL 0.1 MG TABLET PO SCH ×2 (10:04→21:57)
[2019-10-05] MEDS: HEPARIN NA (PORCINE) 5,000 UNITS/ML 1ML VIAL SQ SCH ×2 (10:04→21:56)
[2019-10-05] MEDS: BUDESONIDE/FORMETEROL FUMARATE 160/4.5 mcg INHALER IH SCH ×2 (10:06→21:59)
[2019-10-05] MEDS: ALBUTEROL SO4 2.5/IPRATROPIUM 0.5 INH SOL 3 ML VIAL.NEB. NEB PRN (10:13)
[2019-10-05] MEDS: ACETAMINOPHEN 325 MG TABLET (FP) PO PRN ×2 (10:17→17:30)
--- NOTE | 2019-10-05 21:46 | PN ---
Progress Note, Physician History of Present Illness: No new complaints - Current Medication List Current Medications: Active Medications Acetaminophen (Tylenol -) 650 mg PO Q6H PRN PRN Reason: PAIN LEVEL 6-10 Last Admin: 10/05/19 17:30 Dose: 650 mg Documented by: Albuterol/Ipratropium (Duoneb -) 1 amp NEB Q6H PRN PRN Reason: SHORTNESS OF BREATH Last Admin: 10/05/19 10:13 Dose: 1 amp Documented by: Budesonide/Formoterol Fumarate (Symbicort 160/4.5mcg -) 2 puff IH BID [facility] Last Admin: 10/05/19 10:06 Dose: 2 puff Documented by: Clonidine (Catapres -) 0.1 mg PO BID [facility] Last Admin: 10/05/19 10:04 Dose: 0.1 mg Documented by: Diphenhydramine HCl (Benadryl -) 50 mg PO HS PRN PRN Reason: INSOMNIA Last Admin: 10/04/19 21:01 Dose: 50 mg Documented by: Heparin Sodium (Porcine) (Heparin -) 5,000 unit SQ BID [facility] Last Admin: 10/05/19 10:04 Dose: 5,000 unit Documented by: Methylprednisolone Sodium Succinate (Solu-Medrol -) 40 mg IVPUSH Q8H-IV [facility] Last Admin: 10/05/19 17:32 Dose: 40 mg Documented by: - Objective Vital Signs: Vital Signs Temperature 97.8 F 10/05/19 17:27 Pulse Rate 71 10/05/19 17:27 Respiratory Rate 20 10/05/19 17:27 Blood Pressure 110/74 10/05/19 17:27 O2 Sat by Pulse Oximetry (%) 94 L 10/05/19 10:28 Neck: Yes: WNL, Supple Cardiovascular: Yes: WNL, Regular Rate and Rhythm Respiratory: Yes: Wheezes Gastrointestinal: Yes: WNL, Normal Bowel Sounds, Soft Labs: CBC, BMP 10/04/19 10:07 10/04/19 10:07 INR, PTT INR 1.08 (0.83-1.09) 10/02/19 21:45 Problem List - Problems (1) Asthma exacerbation Assessment/Plan: Cont IV steroids Cont inhalers/nebulizers Code(s): J45.901 - UNSPECIFIED ASTHMA WITH (ACUTE) EXACERBATION Qualifiers: Asthma severity: moderate Asthma persistence: unspecified Qualified Code(s): J45.901 - Unspecified asthma with (acute) exacerbation (2) Polysubstance abuse Assessment/Plan: Main problem is heroin abuse Cont clonidine Code(s): F19.10 - OTHER PSYCHOACTIVE SUBSTANCE ABUSE, UNCOMPLICATED (3) Opioid dependence Code(s): F11.20 - OPIOID DEPENDENCE, UNCOMPLICATED
[2019-10-05] MEDS: diphenhydrAMINE HCL 25 MG CAPSULE (FP) PO PRN (21:57)
[2019-10-06] MEDS: methylPREDNISolone NA SUCC 40 MG/1 ML VIAL IVPUSH SCH ×2 (02:07→09:47)
[2019-10-06 07:13] VITALS: TEMP 97.6
[2019-10-06 09:46] VITALS: BP 130/80; PULSE 73
[2019-10-06] MEDS: cloNIDine HCL 0.1 MG TABLET PO SCH (09:46)
[2019-10-06] MEDS: HEPARIN NA (PORCINE) 5,000 UNITS/ML 1ML VIAL SQ SCH (09:46)
[2019-10-06] MEDS: ACETAMINOPHEN 325 MG TABLET (FP) PO PRN (09:47)
[2019-10-06] MEDS: BUDESONIDE/FORMETEROL FUMARATE 160/4.5 mcg INHALER IH SCH (09:53)
--- NOTE | 2019-10-20 00:14 | DS ---
Physical Examination Vital Signs: Vital Signs Temperature 97.6 F 10/06/19 06:00 Pulse Rate 73 10/06/19 09:45 Respiratory Rate 18 10/06/19 09:45 Blood Pressure 130/80 10/06/19 09:45 O2 Sat by Pulse Oximetry (%) 92 L 10/06/19 10:00 Labs: CBC, BMP 10/04/19 10:07 10/04/19 10:07 Discharge Summary Problems reviewed: Yes Reason For Visit: CHRONIC OBSTRUCTIVE PULMONARY DISEASE WITH Asthma exacerbation anemia Polysubstance abuse Hospital Course: Pt is 48 y/o male w/ PMH significant for polysubstance abuse(mostly heroin), asthma and anemia. Pt initially presented to the ER due to a fall however XRAYS/CT scan did not show any fracture. pt was treated w/ IV steroids/inhalers for the asthma exacerbation. Pt was also treated w/ clonidine for opoid d ependance and addiction consult saw pt. However pt signed out AMA. Condition: Stable - Instructions Referrals: Eric Yanez MD [Primary Care Provider] - Disposition: AGAINST MEDICAL ADVICE - Home Medications Comprehensive Discharge Medication List: Ambulatory Orders Albuterol Sulfate Inhaler - [Ventolin HFA Inhaler -] 1 - 2 inh PO QID PRN #1 inhaler 05/23/18 Budesonide/Formeterol Fumarate [SYMBICORT 160/4.5mcg -] 2 puff IH BID #1 inhaler 04/22/19 Budesonide/Formeterol Fumarate [SYMBICORT 160/4.5mcg -] 2 puff IH BID #1 cannister 10/19/19 predniSONE [Deltasone -] 40 mg PO DAILY #4 tablet 10/19/19
== END 2019-10-06 10:54 | disposition left against medical advice (07) | DRG 140 ==
LOC: JER 19:53 → JERBED 10-03 00:19 → J5S 10-03 09:38
PROVIDERS: ADMIT Internal Medicine; ATTEND Internal Medicine
DX: J44.1 Chronic obstructive pulmonary disease with (acute) exacerbation (principal); R09.02 Hypoxemia; F19.10 Other psychoactive substance abuse, uncomplicated; R58 Hemorrhage, not elsewhere classified; F14.10 Cocaine abuse, uncomplicated; D64.9 Anemia, unspecified; E11.9 Type 2 diabetes mellitus without complications; F11.20 Opioid dependence, uncomplicated; J45.901 Unspecified asthma with (acute) exacerbation
CPT/HCPCS: 36415; 70450-TC; 71045-TC-FY; 71260-TC; 72125-TC; 74177-TC; 80053; 80307; 82550; 82553; 83690; 83735; 83880; 84484; 85025; 85610; 85730; 86850; 86900; 86901; 93005; 93010; 94640; 99285-25; J0735; J1644; Q9967

== ENCOUNTER 2019-10-19 18:16 | Emergency (ER) | payer OTHER ==
[2019-10-19 18:29] VITALS: BP 138/94; PULSE 84; TEMP 97.3; BMI 28.1
[2019-10-19] MEDS ORDERED: ALBUTEROL SO4 HFA INHALER IH ONE ×2 (18:52→19:30)
[2019-10-19] MEDS ORDERED: methylPREDNISolone NA SUCC 125 MG/2 ML VIAL IVPUSH ONE (18:52)
[2019-10-19] MEDS ORDERED: methylPREDNISolone NA SUCC 125 MG/2 ML VIAL ONE (19:11)
[2019-10-19] MEDS ORDERED: ALBUTEROL SO4 0.083% IH SOL 2.5 MG/3 ML VIAL.NEB. NEB ONE (19:11)
--- NOTE | 2019-10-19 19:15 | PDOC ---
History of Present Illness - General Chief Complaint: Asthma Stated Complaint: DIFFICULTY BREATHING Time Seen by Provider: 10/19/19 18:37 - History of Present Illness Initial Comments: 10/19/19 19:10 HPI: 48 y/o M with hx of Asthma/COPD, HTN, Current smoker, Heroin/Cocaine Use (inhalation) presenting with SOB. Started earlier this morning when he woke up at 3am with some wheezing. [place] SOB throughout the morning. Snorted heroine around 8am and since then felt his asthma exacerbation worsen. Received neb in EMS and feels improved since arrival. Denies fever, chills, chest pain, palp, abd pain, n/v. Of note, he said his albuterol and symbicort ran out yesterday and hasnt been able to take his daily steroid inhaler. PMHx: as noted above ROS: as noted SHx: Denies tobacco use; no alcohol use; +heroine Allergies: NKDA ROS: GENERAL/CONSTITUTIONAL: No fever or chills. No weakness. HEAD, EYES, EARS, NOSE AND THROAT: No change in vision. No ear pain or discharge. No sore throat. CARDIOVASCULAR: No chest pain; +shortness of breath RESPIRATORY: +cough, wheezing GASTROINTESTINAL: No nausea, vomiting, diarrhea or constipation. GENITOURINARY: No dysuria, frequency, or change in urination. MUSCULOSKELETAL: No joint or muscle swelling or pain. No neck or back pain. SKIN: No rash NEUROLOGIC: No headache, vertigo, loss of consciousness, or change in strength/sensation. ENDOCRINE: No increased thirst. No abnormal weight change HEMATOLOGIC/LYMPHATIC: No anemia, easy bleeding, or history of blood clots. ALLERGIC/IMMUNOLOGIC: No hives or skin allergy. PE: GENERAL: Awake, alert, and fully oriented, no acute distress HEAD: No signs of trauma, normocephalic, atraumatic EYES: EOMI, sclera anicteric, conjunctiva clear ENT: Auricles normal inspection, hearing grossly normal, nares patent, oropharynx clear without exudates. Moist mucosa NECK: Normal ROM, no lymphadenopathy LUNGS: No increased work of breathing, symmetrical chest rise, diffuse wheezing in all lung hart HEART: Regular rate, regular rhythm, normal S1 and S2, no murmur, peripheral pulses 2+ and equal bilaterally. ABDOMEN: Soft, nondistended, nontender. No guarding, no rebound. No masses. No CVAT MUSCULOSKELETAL: FROM NEUROLOGICAL: Cranial nerves II through XII grossly intact. Normal speech, stable gait, no focal sensorimotor deficits SKIN: Warm, Dry, normal turgor, no rashes or lesions noted Past History - Medical History Allergies/Adverse Reactions: Allergies Allergy/AdvReac Type Severity Reaction Status Date / Time No Known Allergies Allergy Verified 10/19/19 18:33 Home Medications: Ambulatory Orders Albuterol Sulfate Inhaler - [Ventolin HFA Inhaler -] 1 - 2 inh PO QID PRN #1 inhaler 05/23/18 Budesonide/Formeterol Fumarate [SYMBICORT 160/4.5mcg -] 2 puff IH BID #1 inhaler 04/22/19 Budesonide/Formeterol Fumarate [SYMBICORT 160/4.5mcg -] 2 puff IH BID #1 cannister 10/19/19 predniSONE [Deltasone -] 40 mg PO DAILY #4 tablet 10/19/19 Anemia: No Asthma: Yes Cancer: No Cardiac Disorders: No CVA: No COPD: No CHF: No DVT: No Dementia: No Diabetes: No GI Disorders: No Disorders: No HTN: Yes Hypercholesterolemia: No Kidney Stones: No Liver Disease: No Seizures: No Thyroid Disease: No - Surgical History Abdominal Surgery: No Appendectomy: No Cardiac Surgery: No Cholecystectomy: No Lung Surgery: No Neurologic Surgery: No Orthopedic Surgery: No - Reproductive History Testicular Surgery: No - Immunization History Td Vaccination: Yes Immunization Up to Date: Yes - Psycho-Social/Smoking History Smoking Status: Yes Smoking History: Never smoked Years of Tobacco Use: 40 Have you smoked in the past 12 months: Yes Number of Cigarettes Smoked Daily: 3 If you are a former smoker, when did you quit?: 2017 Cigars Per Day: 0 'Breaking Loose' booklet given: 05/27/19 - Substance Abuse Hx (Audit-C & DAST Scrn) How often the patient has a drink containing alcohol: Monthly or less Number of drinks the patient has on a typical day: 1 or 2 How often the patient has six or more drinks on one occasion: Never Score: In Men: 4 or > Positive; In Women: 3 or > Positive: 1 Screen Result (Pos requires Nsg. Audit-10AR): Negative In the last yr the pt used illegal drug/Rx for NonMed reason: Yes Score: Yes response is considered Positive: 1 Screen Result (Positive result requires Nsg. DAST-10): Positive *Physical Exam - Vital Signs Last Vital Signs Temp Pulse Resp BP Pulse Ox 97.3 F L 84 20 138/94 94 L 10/19/19 18:26 10/19/19 18:26 10/19/19 18:26 10/19/19 18:26 10/19/19 18:26 ED Treatment Course - RADIOLOGY Radiology Studies Ordered: Category Date Time Status CXRPORT [CHEST X-RAY PORTABLE*] [RAD] Stat Radiology 10/19/19 18:52 Taken Medical Decision Making - Medical Decision Making 10/19/19 19:14 48 y/o M with hx of Asthma/COPD, HTN, Current smoker, Heroin/Cocaine Use (inhalation) presenting with SOB concerning for asthma exacerbation. VSS, AF, O2 95%. PE with diffuse pulmonary wheezing. -ekg, cxr -decadron albuterol mdi -reassess 10/19/19 23:49 ekg nsr with no jaswinder/d cxr with no acute pathology patient required additional duo nebs after intervention patient feeling significantly better. no longer SOB. sats 95- 97% with HR 90s while ambulating patient states he would like to go home sent symbicort script to pharmacy as well as prednisone 40mg x4 days patient understands return pcxns all questions answered Discharge - Discharge Information Problems reviewed: Yes Clinical Impression/Diagnosis: Asthma exacerbation, Drug use - Additional Discharge Information Prescriptions: predniSONE [Deltasone -] 40 mg PO DAILY #4 tablet Budesonide/Formeterol Fumarate [SYMBICORT 160/4.5mcg -] 2 puff IH BID #1 cannister - Follow up/Referral Referrals: Eric Yanez MD [Primary Care Provider] - - Patient Discharge Instructions - Post Discharge Activity
[2019-10-19] MEDS ORDERED: DEXAMETHASONE SOD PHOSPHATE 10 MG/1 ML VIAL IM ONE (19:46)
[2019-10-19] MEDS ORDERED: DEXAMETHASONE SOD PHOSPHATE 10 MG/1 ML VIAL ONE (19:51)
--- NOTE | 2019-10-19 20:22 | PDOC ---
Documentation entered by Ankit Pierce SCRIBE, acting as scribe for Norris Joy MD. Norris Joy MD: This documentation has been prepared by the Stan ortega Nirvannie, SCRIBE, under my direction and personally reviewed by me in its entirety. I confirm that the documentation accurately reflects all work, treatment, procedures, and medical decision making performed by me. Attending Attestation - Resident Resident Name: Wally Nation - ED Attending Attestation I have performed the following: I have examined & evaluated the patient, The case was reviewed & discussed with the resident, I agree w/resident's findings & plan, Exceptions are as noted - HPI HPI: 10/19/19 20:20 The patient is a 48 year old male with a significant past medical history of polysubstance abuse (heroin, cocaine, EtOH, everyday smoker), asthma, COPD, HTN, and frequent ER visits with COPD exacerbation who presents to the ED with shortness of breath. As per patient, he woke up at 3am this morning with mild wheezing and felt progressively short of breath throughout the morning. He endorses snorting heroin at approximately 8am which exacerbated his symptoms. Patients received nebulizer treatments en route by EMS. Patient was unable to use his albuterol and symbicort due to running out yesterday. Allergies: NKDA Primary Care Physician: Dr. Roxy Yanez - Physicial Exam PE: 10/19/19 20:22 See resident exam - Medical Decision Making 10/19/19 20:23 48 M with asthma flare. Well appearing in ED with normal vitals. - CXR - albuterol - Steroids - Reassess 10/19/19 23:48 Pt reassessed - feels significantly better and would like to go home Ambulatory sat 95% Pt is well appearing, with normal vitals. Clinically stable for DC at this time. I discussed the physical exam findings, ancillary test results and final diagnoses with the patient. I answered all of the patient's questions. The patient was satisfied with the care received and felt comfortable with the discharge plan and treatment plan. The patient agrees to follow up with the primary care physician within 24-72 hours. Please note this patient was evaluated during the COVID-19 crisis with the presidential [place] Act Declaration and the [place] governor executive order number 202. He/she was evaluated and clinical decisions were made relative to healthcare system resources as well as clinical picture during a pandemic crisis situation. Discharge - Discharge Information Problems reviewed: Yes Clinical Impression/Diagnosis: Asthma exacerbation, Drug use Condition: Stable Disposition: HOME - Additional Discharge Information Prescriptions: predniSONE [Deltasone -] 40 mg PO DAILY #4 tablet Budesonide/Formeterol Fumarate [SYMBICORT 160/4.5mcg -] 2 puff IH BID #1 cannister - Follow up/Referral Referrals: Eric Yanez MD [Primary Care Provider] - - Patient Discharge Instructions - Post Discharge Activity
[2019-10-19] MEDS ORDERED: ALBUTEROL SO4 2.5/IPRATROPIUM 0.5 INH SOL 3 ML VIAL.NEB. NEB ONE ×2 (20:49→23:02)
[2019-10-19] MEDS: ALBUTEROL SO4 2.5/IPRATROPIUM 0.5 INH SOL 3 ML VIAL.NEB. NEB SCH ×2 (22:16→23:14)
--- NOTE | 2019-10-20 10:24 | EKG ---
Test Reason : Blood Pressure : / mmHG Vent. Rate : 079 BPM Atrial Rate : 079 BPM P-R Int : 162 ms QRS Dur : 076 ms QT Int : 378 ms P-R-T Axes : 032 025 051 degrees QTc Int : 433 ms NORMAL SINUS RHYTHM NORMAL ECG WHEN COMPARED WITH ECG OF 02-OCT-2019 21:56, Likely lead misplacent in previous Confirmed by Hyun Bermudez ([id number]) on 10/20/2019 10:24:31 AM Referred By: Confirmed By:Hyun Bermudez
== END 2019-10-19 23:57 | disposition home or self-care (01) ==
LOC: JER 18:16
PROC: 3E0F7GC Introduction of Other Therapeutic Substance into Respiratory Tract, Via Natural or Artificial Opening (ICD-10-PCS; principal; 2019-10-19)
PROC: 3E033GC Introduction of Other Therapeutic Substance into Peripheral Vein, Percutaneous Approach (ICD-10-PCS; 2019-10-19)
PROC: 3E023GC Introduction of Other Therapeutic Substance into Muscle, Percutaneous Approach (ICD-10-PCS; 2019-10-19)
DX: J45.901 Unspecified asthma with (acute) exacerbation (principal); F19.90 Other psychoactive substance use, unspecified, uncomplicated
CPT/HCPCS: 71045-TC-FY; 93005; 93010; 99285-25; J1100

== ENCOUNTER 2019-12-23 05:54 | Inpatient (IN) | payer OTHER ==
--- NOTE | 2019-12-23 05:58 | PDOC ---
Attending Attestation - Resident Resident Name: Valentin Molina - ED Attending Attestation I have performed the following: I have examined & evaluated the patient, The case was reviewed & discussed with the resident, I agree w/resident's findings & plan - HPI HPI: 12/23/19 05:58 see resident hpi - Physicial Exam PE: 12/23/19 05:58 see resident exam - Medical Decision Making 12/23/19 06:12 49-year-old male with history of COPD/asthma as well as substance abuse with wheezing arriving via EMS status post dexamethasone 10 mg IM as well as DuoNeb x1 with minimal improvement On arrival patient is refusing IV access, will continue with DuoNebs Case to be signed out to dayshift pending reevaluation Discharge - Discharge Information Problems reviewed: Yes Clinical Impression/Diagnosis: Asthma exacerbation - Follow up/Referral - Patient Discharge Instructions - Post Discharge Activity
[2019-12-23 06:00] VITALS: BMI 25.8
[2019-12-23] MEDS ORDERED: MAGNESIUM SULFATE IN WATER 2 GM/50 ML IVPB IVPB ONE (06:04)
[2019-12-23] MEDS ORDERED: ALBUTEROL SO4 2.5/IPRATROPIUM 0.5 INH SOL 3 ML VIAL.NEB. NEB ONE ×2 (06:04→06:40)
--- NOTE | 2019-12-23 06:31 | PDOC ---
History of Present Illness - General Chief Complaint: Asthma Stated Complaint: S.O.B. Time Seen by Provider: 12/23/19 05:56 - History of Present Illness Initial Comments: 12/23/19 06:18 49 y/o M with hx of Asthma/COPD, HTN, Current smoker, Heroin/Cocaine Use (inhalation) presenting with SOB. Started last night. Used heroin yesterday before experiencing symptoms. Denies chest pain, n/v, f/c. States he has been taking his home asthma meds consistently. Patient refused an IV by EMS. Got IM dex and one duo neb. PMH: as above Home Medications Medication Instructions Recorded Albuterol Sulfate Inhaler - 1 - 2 inh PO QID PRN #1 inhaler 05/23/18 [Ventolin HFA Inhaler -] Budesonide/Formeterol Fumarate 2 puff IH BID #1 inhaler 04/22/19 [SYMBICORT 160/4.5mcg -] Budesonide/Formeterol Fumarate 2 puff IH BID #1 cannister 10/19/19 [SYMBICORT 160/4.5mcg -] predniSONE [Deltasone -] 40 mg PO DAILY #4 tablet 10/19/19 SHx: Denies tobacco use; no alcohol use; +heroine Allergies: NKDA ROS: GENERAL/CONSTITUTIONAL: No fever or chills. No weakness. HEAD, EYES, EARS, NOSE AND THROAT: No change in vision. No ear pain or discharge. No sore throat. CARDIOVASCULAR: No chest pain; +shortness of breath RESPIRATORY: +cough, wheezing GASTROINTESTINAL: No nausea, vomiting, diarrhea or constipation. GENITOURINARY: No dysuria, frequency, or change in urination. MUSCULOSKELETAL: No joint or muscle swelling or pain. No neck or back pain. SKIN: No rash NEUROLOGIC: No headache, vertigo, loss of consciousness, or change in strength/sensation. ENDOCRINE: No increased thirst. No abnormal weight change HEMATOLOGIC/LYMPHATIC: No anemia, easy bleeding, or history of blood clots. ALLERGIC/IMMUNOLOGIC: No hives or skin allergy. PE: GENERAL: Awake, alert, and fully oriented, no acute distress HEAD: No signs of trauma, normocephalic, atraumatic EYES: EOMI, sclera anicteric, conjunctiva clear ENT: Auricles normal inspection, hearing grossly normal, nares patent, oropharynx clear without exudates. Moist mucosa NECK: Normal ROM, no lymphadenopathy LUNGS: increased work of breathing, diffuse wheezing in all lung hart HEART: Regular rate, regular rhythm, normal S1 and S2, no murmur ABDOMEN: Soft, nondistended, nontender. No guarding, no rebound. No masses. No CVAT MUSCULOSKELETAL: FROM NEUROLOGICAL: Normal speech, no focal sensorimotor deficits SKIN: Warm, Dry, normal turgor, no rashes or lesions noted Vital Signs Temp Pulse Resp BP Pulse Ox 98.6 F 92 H 20 126/94 94 L 12/23/19 05:56 12/23/19 05:56 12/23/19 05:56 12/23/19 05:56 12/23/19 05:56 MDM: 49yo y/o M with hx of Asthma/COPD, HTN, Current smoker, Heroin/Cocaine Use (in halation) presenting with SOB. Most likely asthma exacerbation. DDx also includes ACS, pneumonia. -EKG -CXR -CBC, CMP, trops -duo nebs x3 total (2 in ED) -magnesium 2mg IV Escalate as necessary 12/23/19 06:51 EKG: NSR rate 84, normal axis and intervals, no ischemic changes CXR: no focal consolidation (my read) Labs: pending 12/23/19 06:56 Signed out to day team Past History - Medical History Allergies/Adverse Reactions: Allergies Allergy/AdvReac Type Severity Reaction Status Date / Time No Known Allergies Allergy Verified 12/23/19 05:58 Home Medications: Ambulatory Orders Albuterol Sulfate Inhaler - [Ventolin HFA Inhaler -] 1 - 2 inh PO QID PRN #1 inhaler 05/23/18 Budesonide/Formeterol Fumarate [SYMBICORT 160/4.5mcg -] 2 puff IH BID #1 inhaler 04/22/19 Budesonide/Formeterol Fumarate [SYMBICORT 160/4.5mcg -] 2 puff IH BID #1 cannister 10/19/19 predniSONE [Deltasone -] 40 mg PO DAILY #4 tablet 10/19/19 Anemia: No Asthma: Yes Cancer: No Cardiac Disorders: No CVA: No COPD: No CHF: No DVT: No Dementia: No Diabetes: No GI Disorders: No Disorders: No HTN: Yes Hypercholesterolemia: No Kidney Stones: No Liver Disease: No Seizures: No Thyroid Disease: No - Surgical History Abdominal Surgery: No Appendectomy: No Cardiac Surgery: No Cholecystectomy: No Lung Surgery: No Neurologic Surgery: No Orthopedic Surgery: No - Reproductive History Testicular Surgery: No - Immunization History Td Vaccination: Yes Immunization Up to Date: Yes - Psycho-Social/Smoking History Smoking Status: Yes Smoking History: Current every day smoker Years of Tobacco Use: 40 Have you smoked in the past 12 months: Yes Number of Cigarettes Smoked Daily: 12 If you are a former smoker, when did you quit?: 2017 Cigars Per Day: 0 Information on smoking cessation initiated: No 'Breaking Loose' booklet given: 05/27/19 - Substance Abuse Hx (Audit-C & DAST Scrn) How often the patient has a drink containing alcohol: Monthly or less Number of drinks the patient has on a typical day: 1 or 2 Score: In Men: 4 or > Positive; In Women: 3 or > Positive: 1 Screen Result (Pos requires Nsg. Audit-10AR): Negative In the last yr the pt used illegal drug/Rx for NonMed reason: Yes Score: Yes response is considered Positive: 1 Screen Result (Positive result requires Nsg. DAST-10): Positive *Physical Exam - Vital Signs Last Vital Signs Temp Pulse Resp BP Pulse Ox 98.6 F 92 H 20 126/94 94 L 12/23/19 05:56 12/23/19 05:56 12/23/19 05:56 12/23/19 05:56 12/23/19 05:56 ED Treatment Course - LABORATORY CBC & Chemistry Diagram: 12/23/19 06:30 12/23/19 06:30 - RADIOLOGY Radiology Studies Ordered: Category Date Time Status CHEST X-RAY PORTABLE* [RAD] Stat Radiology 12/23/19 06:12 Ordered Discharge - Discharge Information Problems reviewed: Yes Clinical Impression/Diagnosis: Asthma exacerbation Qualifiers: Asthma severity: moderate Asthma persistence: unspecified Qualified Code(s): J45.901 - Unspecified asthma with (acute) exacerbation Condition: Stable Disposition: AGAINST MEDICAL ADVICE - Follow up/Referral - Patient Discharge Instructions - Post Discharge Activity
[2019-12-23] MEDS ORDERED: MAGNESIUM SULF 50% (8.12 MEQ/2 ML-1 GM VIAL) IVPB ONE (06:40)
[2019-12-23 06:53] LABS: BASO % 1.3 % (0-2.0); EOS % 4.7 % (0-4.5); HEMATOCRIT 38.7 % (35.4-49); HEMOGLOBIN 12.6 GM/dL (11.7-16.9); LYMPH % 25.7 % (8-40); MCH 25.6 pg (25.7-33.7); MCHC 32.5 g/dl (32.0-35.9); MEAN CELL VOLUME 78.7 fl (80-96); MEAN PLT VOLUME 7.3 fl (7.5-11.1); MONO % 7.3 % (3.8-10.2); PLATELET COUNT 346 K/MM3 (134-434); RBC 4.91 M/mm3 (4.00-5.60); RDW 15.5 % (11.9-15.9); WHITE BLOOD COUNT 11.4 K/mm3 (4.0-10.0)
--- NOTE | 2019-12-23 07:19 | PDOC ---
*Physical Exam - Vital Signs Last Vital Signs Temp Pulse Resp BP Pulse Ox 98.6 F 92 H 20 126/94 94 L 12/23/19 05:56 12/23/19 05:56 12/23/19 05:56 12/23/19 05:56 12/23/19 05:56 ED Treatment Course - LABORATORY CBC & Chemistry Diagram: 12/23/19 06:30 12/23/19 06:30 - ADDITIONAL ORDERS Additional order review: 12/23/19 06:30 RBC 4.91 MCV 78.7 L MCHC 32.5 RDW 15.5 MPV 7.3 L Neutrophils % 61.0 D Lymphocytes % 25.7 D Monocytes % 7.3 Eosinophils % 4.7 H D Basophils % 1.3 D - Medications Given in the ED: ED Medications Discontinued Medications Generic Name Dose Route Start Last Admin Trade Name Freq PRN Reason Stop Dose Admin Albuterol/Ipratropium 3 amp 12/23/19 06:40 12/23/19 07:08 Duoneb - NEB 12/23/19 06:41 3 amp ONCE ONE Administration Magnesium Sulfate 2 gm 12/23/19 06:40 12/23/19 07:08 Magnesium Sulfate IVPB 12/23/19 06:41 2 gm ONCE ONE Administration Medical Decision Making - Medical Decision Making 12/23/19 07:15 Signed out to me by day team. 49M PMH COPD/asthma here for asthma exacerbation in the setting of daily heroin/cocaine use. Usually uses substances and then has asthma attacks, known history of signing out AMA. Given 10 IM Decadron, 3x nebs, 2mg Mag, reported to still be wheezing. On NRB. Plan to admit for poorly controlled COPD/asthma, if not consider AMA and ensure IV is removed. 12/23/19 07:20 Labs notable for: - CBC WNL - CMP WNL - CP WNL CXR unremarkable for pathology, appears to have a stethescope head over right upper lung. ECG NSR with HR 84, QTc 427, no BEHZAD/D or TWI. 12/23/19 07:28 Patient HR 88, satting 100% on NRB, breath sounds still grossly wheezing. Will give more treatments and plan on admission for hypoxic respiratory failure 2/2 asthma/COPD exacerbation. 12/23/19 07:53 Patient consents to admission, satting 95-98% on room air but still wheezing. 12/23/19 08:[address] Diaz, accepts for admission for asthma exacerbation w michael Thomas consult. Discharge - Discharge Information Problems reviewed: Yes Clinical Impression/Diagnosis: Asthma exacerbation Qualifiers: Asthma severity: moderate Asthma persistence: unspecified Qualified Code(s): J45.901 - Unspecified asthma with (acute) exacerbation Condition: Stable - Admission Yes - Follow up/Referral Referrals: Eric Yanez MD [Primary Care Provider] - - Patient Discharge Instructions - Post Discharge Activity
[2019-12-23 07:29] LABS: ALBUMIN 3.3 g/dl (3.4-5.0); ALK PHOS 96 U/L (45-117); ANION GAP 5 MMOL/L (8-16); BILIRUBIN,TOTAL 0.2 mg/dL (0.2-1); BLOOD UREA NITROGEN 13.6 mg/dL (7-18); CHLORIDE 106 mmol/L (98-107); CO2 30 mmol/L (21-32); CREATININE 0.7 mg/dL (0.55-1.3); GLUCOSE,RANDOM 108 mg/dL (74-106); POTASSIUM 4.3 mmol/L (3.5-5.1); SGOT/AST 14 U/L (15-37); SGPT/ALT 18 U/L (13-61); SODIUM 141 mmol/L (136-145); TOT PROT 6.7 g/dl (6.4-8.2)
[2019-12-23 07:59] VITALS: BP 124/77; PULSE 86; TEMP 98.9
[2019-12-23] MEDS: ALBUTEROL SO4 2.5/IPRATROPIUM 0.5 INH SOL 3 ML VIAL.NEB. NEB SCH ×2 (08:06→08:23)
--- NOTE | 2019-12-23 10:53 | EKG ---
Test Reason : Blood Pressure : / mmHG Vent. Rate : 084 BPM Atrial Rate : 084 BPM P-R Int : 164 ms QRS Dur : 084 ms QT Int : 362 ms P-R-T Axes : 031 010 047 degrees QTc Int : 427 ms NORMAL SINUS RHYTHM NORMAL ECG WHEN COMPARED WITH ECG OF 19-OCT-2019 19:02, NO SIGNIFICANT CHANGE WAS FOUND Confirmed by Rivera Philip MD ([id number]) on 12/23/2019 10:52:16 AM Referred By: Confirmed By:Rivera Phiilp MD
== END 2019-12-23 09:50 | disposition left against medical advice (07) | DRG 141 ==
LOC: JER 05:54 → JERBED 07:53
PROVIDERS: ADMIT Internal Medicine; ATTEND Internal Medicine
DX: J45.901 Unspecified asthma with (acute) exacerbation (principal); I10 Essential (primary) hypertension; F17.210 Nicotine dependence, cigarettes, uncomplicated; F14.10 Cocaine abuse, uncomplicated; J96.01 Acute respiratory failure with hypoxia; F11.90 Opioid use, unspecified, uncomplicated
CPT/HCPCS: 36415; 71045-TC-FY; 80053; 82550; 84484; 85025; 93005; 93010; 99285-25

== ENCOUNTER 2020-01-06 08:22 | Inpatient (IN) | payer OTHER ==
--- OUTSIDE RECORDS SUMMARY | 2020-01-06 08:30 | XMS ---
:1970 [facility] Care Team Providers Name Role Phone Reymundo Verde MD Unavailable Unavailable MD Fernando Unavailable Unavailable SARAH DILLARD Unavailable Unavailable MD Marilia Unavailable Unavailable MD NATALIE Unavailable Unavailable ED STAFF PHYSICIAN Unavailable Unavailable MD IAN Unavailable Unavailable [facility], X Unavailable Unavailable ED STAFF PHYSICIAN Unavailable Unavailable [facility] Unavailable Unavailable MD Guevara Unavailable Unavailable ED STAFF PHYSICIAN Unavailable Unavailable Re-disclosure Warning The records that you are about to access may contain information from federally- assisted alcohol or drug abuse programs. If such information is present, then the following federally mandated warning applies: This information has been disclosed to you from records protected by federal confidentiality rules (42 CFR part 2). The federal rules prohibit you from making any further disclosure of this information unless further disclosure is expressly permitted by the written consent of the person to whom it pertains or as otherwise permitted by 42 CFR part 2. A general authorization for the release of medical or other information is NOT sufficient for this purpose. The Federal rules restrict any use of the information to criminally investigate or prosecute any alcohol or drug abuse patient.The records that you are about to access may contain highly sensitive health information, the redisclosure of which is protected by Article 27-F of the [facility] Public Health law. If you continue you may haveaccess to information: Regarding HIV / AIDS; Provided by facilities licensed or operated by the [facility] Office of Mental Health; or Provided by the [facility] Office for People With Developmental Disabilities. If such information is present, then the following [facility] mandated warning applies: This information has been disclosed to you from confidential records which are protected by state law. State law prohibits you from making any further disclosure of this information without the specific written consent of the person to whom it pertains, or as otherwise permitted by law. Any unauthorized further disclosure in violation of state law may result in a fine or halfway sentence or both. A general authorization for the release of medical or other information is NOT sufficient authorization for further disclosure. Allergies and Adverse Reactions Type Description Substance Reaction Status Data Source(s ) Drug allergy No Known Allergies No Known Allergies none [facility] Encounters Encounter Providers Location Date Indications Data Source(s ) Emergency Attender: YOLANDA ED H 09/21/2019 [facility] STAFF 04:35:00 PM EDT Medical C enter PHYSICIANAttender: - 09/21/2019 STAFF ED STAFF 06:39:00 PM EDT PHYSICIANAdmitter: [facility] ED STAFF PHYSICIAN Patient discharged. Emergency Attender: ED STAFF H 07/27/2019 04:09:00 PM [facility] PHYSICIANAttender: [facility] ED EDT - 07/27/2019 [facility] STAFF PHYSICIANAttender: STAFF 04:44:00 PM EDT ED STAFF PHYSICIANAdmitter: ED STAFF PHYSICIANReferrer: STAFF ED STAFF PHYSICIAN Patient discharged. Emergency Attender: [facility] ED STAFF 07/27/2019 12:15:00 PM [facility] PHYSICIANAttender: STAFF ED EDT - 07/27/2019 [facility] STAFF PHYSICIANAdmitter: YOLANDA 01:35:00 PM EDT ED STAFF PHYSICIAN Patient discharged. Outpatient Attender: [id number] [facility] 06/03/2019 12:25:33 PM [facility] ([facility] Patient admitted. Emergency Attender: NISHANT 03/11/2019 11:34:00 PAIN [facility] CAROLAttender: EMERGENCY AM EST Health Care SERVICE, XAdmitter: SARAH Pastrana Emergency 11/07/2018 03:57:00 PM [facility] EDT Ellery 11/07/2018 12:00:00 AM [facility] EDT - 02/22/2018 Center 12:00:00 AM EST Inpatient Attender: SALLY STV-3N 10/02/2018 05:42:00 PM [facility] LEMUSEZAdmitter: JOSE MIGUEL EDT - 10/16/2018 H osnatalie SOSA 10:31:00 PM EDT Patient admitted. Outpatient STV 10/02/2018 02:01:00 PM EDT - 019 [facility] 06:15:00 PM EDT Patient discharged. Emergency Attender: Del 10/02/2018 SUICIDE IDEATION Wh pema Waterman MDAttender: 05:34:00 AM EDT - [facility] Armani Marilia 10/02/2018 MDConsultant: Liv 01:35:00 PM EDT Fernando FORREST SUICIDE IDEATION AMB-EMPRESS Patient discharged. Emergency Attender: Reymundo 10/01/2018 11:25:00 ASTHMA W nayan Verde MD PM EDT - 10/02/2018 [facility] Hosp ital 04:27:00 AM EDT ASTHMA ARR-EMPRESS Patient discharged. Emergency H 09/21/2018 12:52:00 AM EDT [facility] Emergency H 09/14/2018 07:28:00 PM EDT [facility] Outpatient 08/19/2018 01:25:09 PM EDT [facility]) Outpatient 08/19/2018 01:25:05 PM EDT [facility]) Emergency H 05/30/2018 05:30:00 PM EST [facility] Emergency H 03/05/2018 12:00:00 AM [facility] Medications Medication Brand Start Product Dose Route Administrative Pharmacy St at Indications Reaction Description Data Name Date Form Instructions Instructions Source(s) DuoNeb DuoNeb 03/11/ 0.5 UNK active DuoNeb [place] 0.5/3mg/3mL 0.5/3m 2019 /3mg 0.5/3mg/3mL [place] g/3mL 12:07: /3mL (Ipratropium [facility]al [facility] 07 PM /Albuterol) Care EST Inh 0.5/3mg Corporat io /3mL n Inhalation Medication administered onsite aripiprazole 10 Abilify - 10/15/2018 ORAL completed [facility] MG Oral Tablet 10 MG ORAL 12:00:00 [facility] [Abilify] Tablet EDT Hospital ProAir HFA 108 06/29/2016 999 UNK completed ProA [place] (90 Base) MCG/A 06:20:53 PM MG [place] EDT [facility] 108 Corporation (90 Base ) MCG/ ACT Inha lati on Aero rhonda Solu tion INHA LE 1 TO 2 PUFF S EVER Y 4 TO 6 HOUR S NEED ED. Disp ense : 1 Prednisone 20 PredniSONE 06/29/2016 999 UNK completed Pred [place] MG Oral Tablet 20 MG Oral 06:20:53 PM MG [facility] PredniSONE 20 Tablet EDT [facility] MG Oral Tablet 20 Corpo ration MG Oral Tabl et TAKE 3 TABL ETS IN THE MORN ING. Disp ense : 12 Prednisone 20 PredniSONE 06/14/2015 999 UNK completed Pred [place] MG Oral Tablet 20 MG Oral 08:58:36 PM MG [facility] PredniSONE 20 Tablet EST [facility] MG Oral Tablet 20 Corpo ration MG Oral Tabl et 1 tab po BID x 4 days Disp ense : 8 Albuterol 06/14/2015 999 UNK completed Albu [place] Sulfate (2.5 08:58:[address] MG/3ML) EST [facility] Sulf Corporation ate (2.5 MG/3 ML) 0.08 3% [facility] Solu tion USE 1 UNIT DOSE IN [facility] EVER Y 4 HOUR S NEED ED. Disp ense : 15 Albuterol Albuterol AERO 2 RESPIRAT completed [facility] RHONDA ORY [facility]) Prednisone 20 Prednisone TABL 60 ORAL completed [facility] MG Oral Tablet ET mg [facility] Prednisone 20 Prednisone TABL 40 ORAL completed [facility] MG Oral Tablet ET mg [facility] Prednisone 20 Prednisone TABL 60 ORAL completed [facility] MG Oral Tablet ET mg [facility] Prednisone 20 predniSONE 2 completed [facility] MG Oral Tablet 20 mg Bipin phs predniSONE 20 Tablet, Med ical mg Tablet, Ordered By: Ce nter Ordered By: Beau Lincoln Dr.Directions: 2 tablet oral ns: 2 daily tablet oral daily 200 ACTUAT albuterol 2 completed Prov [facility] Albuterol 0.09 sulfate vasu Vu sephs MG/ACTUAT (Proventil l Medi panda Metered Dose HFA) 90 mcg HFA Center Inhaler HFA Aerosol [Proventil] Inhaler, albuterol Ordered By: sulfate Omiel (Proventil HFA) Beau, 90 mcg HFA Aerosol ns: 2 puff Inhaler, by Ordered By: noe Yanez every six Directions: hours PRN 2 puff by shortness inhalation of breath every six hours PRN shortness of breath Albuterol Albuterol AERO 2 RESPIRAT completed [facility] RHONDA ORY [facility] ([facility] TION ION) 200 ACTUAT albuterol 2 completed [facility] Albuterol 0.09 sulfate enti Mirella sephs MG/ACTUAT (Proventil l Medi panda Metered Dose HFA) 90 mcg HFA Center Inhaler HFA Aerosol [Proventil] Inhaler, albuterol Ordered By: sulfate Janae (Proventil HFA) Beau, 90 mcg HFA Aerosol ns: 2 puff Inhaler, by Ordered By: noe Yanez, every six Directions: hours PRN 2 puff by shortness inhalation of breath every six hours PRN shortness of breath 28 ACTUAT tiotropium- 999 inhalati completed [facility] olodaterol olodaterol MG on ropi Cou nty 0.0025 [facility] MG/ACTUAT / loda Corporat ion tiotropium tero 0.0025 l MG/ACTUAT Metered Dose Inhaler [Stiolto] tiotropium-olod aterol Prednisone 20 predniSONE 2 completed [facility] MG Oral Tablet 20 mg Bipin [facility] predniSONE 20 Tablet, Med ical mg Tablet, Ordered By: Ce nter Ordered By: Beau Lincoln Dr.Directions: 2 tablet oral ns: 2 daily tablet oral daily 200 ACTUAT albuterol 999 inhalati completed [facility] Albuterol 0.09 MG on tero Count y MG/ACTUAT l Health Car e Metered Dose Corpora tion Inhaler [Ventolin] albuterol 120 ACTUAT budesonide- 2 completed Sy coleen Patiño Budesonide 0.16 formoterol ico r Dasia MG/ACTUAT / (Symbicort) t M alley formoterol 160 mcg-4.5 Ce danielle fumarate 0.0045 mcg/Actuati MG/ACTUAT on HFA Metered Dose Aerosol Inhaler Inhaler, [Symbicort] Ordered By: budesonide-form Janae otbreonna Yanez (Symbicort) 160 mcg-4.5 ns: 2 puff mcg/Actuation by HFA Aerosol inhalation Inhaler, twice a day Ordered By: Janae Yanez Dr.Directions: 2 puff by inhalation twice a day Prednisone 20 Prednisone TABL 40 ORAL completed [facility] MG Oral Tablet ET mg [facility] Albuterol Albuterol AERO 2 RESPIRAT completed [facility] ([facility]) Prednisone 20 predniSONE 2 completed [facility] MG Oral Tablet 20 mg Bipin [facility] predniSONE 20 Tablet, Med ical mg Tablet, Ordered By: Beth nter Ordered By: Beau Lincoln, MDDirections: 2 MDDirection tablet oral s: 2 tablet daily oral daily Prednisone 20 predniSONE 2 completed [facility] MG Oral Tablet 20 mg Bipin [facility] predniSONE 20 TabletDirec Medical mg tions: 2 Center TabletDirection tablet oral s: 2 tablet daily oral daily 200 ACTUAT albuterol 2 completed [facility] Albuterol 0.09 sulfate 90 Dasia MG/ACTUAT mcg HFA Medical Metered Dose Aerosol Cent er Inhaler Inhaler, albuterol Ordered By: sulfate 90 mcg Sena HFA Aerosol Green, Inhaler, PADirection Ordered By: s: 2 puff Sena Green, by PADirections: 2 inhalation puff by four times inhalation four daily PRN times daily PRN shortness shortness of of breath breath brclomethasone brclomethas 999 inhaler discontinued brcl [place] one MG [facility] Albuterol Albuterol AERO 2 RESPIRAT completed [facility] ([facility]) Insurance Providers Payer name Policy type Policy ID Covered Covered constitution party's Policy P judson / Coverage constitution party ID relationship to [place]armiento Inf ormation type sarmiento [facility] MEDICAID [id number] SP [id number] O [facility] MEDICAID [id number] SP [id number] [facility] [id number] SP [id number] W [id number] 01 [id number] PENDING [id number] EXCHANGE SELF PAY SP INSURANCE [facility] O [id number] 01 [id number] MEDICAID [id number] SP [id number] [facility] MEDICAID [id number] SP [id number] HMO [place] [id number] SP [id number] HEALTH-MVP SELF PAY 0000 Self 0000 MEDICAID INP [id number] Self [id number] U PSYCH [facility] [id number] Self [id number] [facility] [id number] PT [id number] [facility] [id number] PT [id number] [facility] BEACON [id number] SP [id number] HEALTH-MVP MVP/HHP O [id number] 01 [id number] Problems, Conditions, and Diagnoses Code Display Name Description Problem Type Effective Data Sour ce(s) Dates [id number] Sedative, Sedative, Complaint 10/02/2018 [facility] hypnotic AND/OR hypnotic AND/OR 12:00:00 PM Hos pital anxiolytic-relate anxiolytic-relate EDT d disorder d disorder (disorder) [id number] Cocaine abuse Cocaine abuse Complaint 10/02/2018 [facility] ([facility] 12:00:00 PM Hospital EDT [id number] Opioid abuse Opioid abuse Complaint 10/02/2018 [facility] (disorder) 12:00:00 PM Hospital EDT 78401750 Depressive Depressive Complaint 10/02/2018 [facility] disorder disorder 12:00:00 PM Hospital (disorder) EDT [id number] Sedative, Sedative, Complaint 10/02/2018 [facility] hypnotic AND/OR hypnotic AND/OR 12:00:00 PM Hos pital anxiolytic-relate anxiolytic-relate EDT d disorder d disorder (disorder) [id number] Cocaine abuse Cocaine abuse Complaint 10/02/2018 [facility] ([facility]order) 12:00:00 PM Hospital EDT 1733844 Opioid abuse Opioid abuse Complaint 10/02/2018 [facility] (disorder) 12:00:00 PM Hospital EDT [id number] Depressive Depressive Complaint 10/02/2018 [facility] disorder disorder 12:00:00 PM Hospital (disorder) EDT [id number] Sedative, Sedative, Complaint 10/02/2018 [facility] hypnotic AND/OR hypnotic AND/OR 12:00:00 PM Hos pital anxiolytic-relate anxiolytic-relate EDT d disorder d disorder (disorder) [id number] Cocaine abuse Cocaine abuse Complaint 10/02/2018 [facility] ([facility]order) 12:00:00 PM Hospital EDT 5726270 Opioid abuse Opioid abuse Complaint 10/02/2018 [facility] (disorder) 12:00:00 PM Hospital EDT [id number] Depressive Depressive Complaint 10/02/2018 [facility] disorder 12:00:00 PM Hospital (disorder) EDT Z53.20 Procedure and PROC/TRTMT NOT Diagnosis 09/21/2019 [facility] treatment not CRD OUT BEC PT 04:35:00 PM Medica l Center carried out DECISION FOR UNSP EDT because of REASONS patient's decision for unspecified reasons J45.909 Unspecified UNSPECIFIED Diagnosis 09/21/2019 [facility] asthma, ASTHMA, 04:35:00 PM Medical Cente r uncomplicated UNCOMPLICATED EDT R06.00 Dyspnea, DYSPNEA, Diagnosis 09/21/2019 [facility] unspecified UNSPECIFIED 04:35:[address] EDT F17.210 Nicotine NICOTINE Diagnosis 07/27/2019 [facility] dependence, DEPENDENCE, 04:09:[address] cigarettes, CIGARETTES, EDT uncomplicated UNCOMPLICATED F19.10 Other OTHER Diagnosis 07/27/2019 [facility] psychoactive PSYCHOACTIVE 04:09:00 PM Medical C enter substance abuse, SUBSTANCE ABUSE, EDT uncomplicated UNCOMPLICATED F91.9 Conduct disorder, CONDUCT DISORDER, Diagnosis 07/27/2019 [facility] unspecified UNSPECIFIED 04:09:[address] EDT J45.909 Unspecified UNSPECIFIED Diagnosis 03/11/2019 [place] asthma, ASTHMA, 11:34:[address] [facility] R06.2 Wheezing WHEEZING Diagnosis 03/11/2019 [place] 11:34:00 AM [facility] R53.1 Weakness WEAKNESS Diagnosis 11/07/2018 [facility] 03:57:00 PM Medical Cente r EDT F32.9 Major depressive Major depressive Diagnosis 10/16/2018 [facility] disorder, single disorder, single 04:06:00 PM H ospital episode, episode, EDT unspecified unspecified J45.909 Unspecified J45.909 Diagnosis 10/02/2018 [place] asthma, 05:53:00 AM Hospital uncomplicated EDT G89.29 Other chronic G89.29 Diagnosis 10/02/2018 [place] s pain 05:53:00 AM Hospital EDT R45.851 Suicidal R45.851 Diagnosis 10/02/2018 [place] ideations 05:53:00 AM Hospital EDT 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 10/02/2018 [place] disorder, 05:53:00 AM Hospital unspecified EDT F14.10 Cocaine abuse, F14.10 Diagnosis 10/02/2018 [place] uncomplicated 05:53:00 AM Hospital EDT F11.10 Opioid abuse, F11.10 Diagnosis 10/02/2018 [place] uncomplicated 05:53:00 AM Hospital EDT F32.9 Major depressive F32.9 Diagnosis 10/02/[address] [place] disorder, single 05:53:00 AM Hospita l episode, EDT unspecified J45.901 Unspecified J45.901 Diagnosis 10/01/2018 [place] asthma with 11:49:00 PM Hospital (acute) EDT exacerbation Z72.0 Tobacco use TOBACCO USE Diagnosis 09/21/2018 [place] [facility] 12:52:00 AM Medical Cente r EDT J98.01 Acute ACUTE Diagnosis 09/21/2018 [facility] bronchospasm BRONCHOSPASM 12:52:00 AM Medical C enter EDT R07.9 Chest pain, CHEST PAIN, Diagnosis 09/21/2018 [place] unspecified UNSPECIFIED 12:52:[address] EDT R06.2 Wheezing WHEEZING Diagnosis 05/30/2018 [facility] 05:30:00 PM Medical Cente r EST Results ID Date Data Source [id number] 09/07/2019 12:25:00 AM EDT [facility] Name Value Range Interpretation Description Data Sup porting Code Source(s) Document(s ) SARS [facility] CORONAVIRUS 2 RNA This lab was ordered by [facility] and reported by [facility]. ID Date Data Source [id number] 08/25/2019 10:40:00 AM EDT [facility] Name Value Range Interpretation Description Data Sup porting Code Source(s) Document(s ) SARS [facility] CORONAVIRUS 2 RNA This lab was ordered by [facility] and reported by [facility]. ID Date Data Source [id number] 10/02/2018 06:04:00 AM EDT [place] [facility] CUT-OFF >= 25 NG/ML.THE FINDINGS OF THE URINE DRUG SCREEN ARE USED SOLELY FOR PATIENT MANAGEMENT AND GUIDANCE. THE RESULTS SHAKEEL ULD NOT BE USED FOR FORENSIC PURPOSE. ANY CLINICALLY UNSUSPECTED POSITIVE DRUG SCR EEN CAN BE CONFIRMED BY CALLING THE LABORATORY 3 DAYS WITHIN RECEIPT OF REPO RT. Name Value Range Interpretation Code Description Data Katya rce(s) Supporting Document(s ) PCP (UR) NEGATIVE [place] [facility] ID Date Data Source [id number] 10/02/2018 06:04:00 AM EDT [facility] CUT-OFF >= 50 NG/ML. Name Value Range Interpretation Code Description Data Katya rce(s) Supporting Document(s ) THC (UR) NEGATIVE [facility] ID Date Data Source [id number] 10/02/2018 06:04:00 AM EDT [facility] CUT-OFF >= 300 NG/ML. Name Value Range Interpretation Description Data Sup porting Code Source(s) Document(s ) OPIATES (UR) POSITIVE [facility] ID Date Data Source [id number] 10/02/2018 06:04:00 AM EDT [facility] CUT-OFF >= 300 NG/ML. Name Value Range Interpretation Description Data Sup porting Code Source(s) Document(s ) COCAINE (UR) POSITIVE [place] [facility] ID Date Data Source [id number] 10/02/2018 06:04:00 AM EDT [facility] CUT-OFF >= 200 NG/ML. Name Value Range Interpretation Description Data Sup porting Code Source(s) Document(s ) BENZODIAZEPINES POSITIVE [facility] (UR) [facility] ID Date Data Source [id number] 10/02/2018 06:04:00 AM EDT [facility] CUT-OFF >= 200 NG/ML. Name Value Range Interpretation Description Data Sup porting Code Source(s) Document(s ) BARBITURATES NEGATIVE [place] (UR) Hospital ID Date Data Source [id number] 10/02/2018 06:04:00 AM [facility] CUT-OFF >= 1000 NG/ML. Name Value Range Interpretation Description Data Sup porting Code Source(s) Document(s ) AMPHETAMINES NEGATIVE [place] (UR) Hospital ID Date Data Source [id number] 10/02/2018 06:04:00 AM [facility] REFERENCE RANGES: NONE DETECTED <20 MG/DL NONE TO MILD EUPHORIA 20-49 MG/DL MILD EUPHORIA 50-99 MG/DL MODERATE EUPHORIA 100-149 MG/DL INTOXICATION 150-300 MG/DL Name Value Range Interpretation Description Data Sup porting Code Source(s) Document(s ) Ethanol < 20 [place] [Mass/volume mg/dL Hospital ] in Serum or Plasma ID Date Data Source [id number] 10/02/2018 06:04:00 AM [facility] TEST RESULT IS A TOTAL TRICYCLIC VALUE.T RICYCLIC ANTIDEPRESSANT REFERENCE RANGE: AMITRIPTYLINE AND METABOLITE (NORTRIPTYL INE) TOTAL THERAPEUTIC: 75 - 225 NG/ML. TOTAL TOXIC: > 400 NG/ML. NORTRIPTYLINE ONLY TOTAL THERAPEUTIC: 50 - 150 NG/ML. TOTAL TOXIC: > 400 NG/ML. IMIPRAMINE AND METABOLITE (DESIPRAMINE) TOTAL THERAPEUTIC: 125 - 175 NG/ML. TOTAL TOXIC: > 400 NG/ML. Name Value Range Interpretation Description Data Sup porting Code Source(s) Document(s ) TRICYCLIC < 80 [place] ANTIDEPRESSANT ng/mL Hospital ID Date Data Source [id number] 10/02/2018 06:04:00 AM [facility] REFERENCE RANGES: ANALGESIC: 0.0 - 10.0 MG/DL. ARTHRITIC THERAPY: 15.0 - 30.0 MG/DL. Name Value Range Interpretation Description Data Sup porting Code Source(s) Document(s ) Salicylates < 3.0 [place] [Mass/volume] mg/dL Hospital in Serum or Plasma ID Date Data Source [id number] 10/02/2018 06:04:00 AM T [facility] THERAPEUTIC RANGE: 10.0-30.0 UG/MLTOXIC RANGE: 4 HRS AFTER INGESTION >150 UG/ML 12 HRS AFTER INGESTION >35 UG/ML Name Value Range Interpretation Description Data Sup porting Code Source(s) Document(s ) ACETAMINOPHEN < 10.0 [place] ug/mL Hospital ID Date Data Source [id number] 10/02/2018 06:04:00 AM EDT [facility] Name Value Range Interpretation Code Description Data Katya rce(s) Supporting Document(s ) Lipase 21 U/L [place] [Enzymatic Hospital activity/vo lume] in Serum or Plasma ID Date Data Source [id number] 10/02/2018 06:04:00 AM EDT [facility] Name Value Range Interpretation Description Data Sup porting Code Source(s) Document(s ) Aspartate 12 U/L [facility] aminotransferase [facility] [Enzymatic Hospital activity/volume] in Serum or Plasma ID Date Data Source [id number] 10/02/2018 06:04:00 AM EDT [facility] Name Value Range Interpretation Description Data Sup porting Code Source(s) Document(s ) Alanine 14 U/L [facility] aminotransferase [facility] [Enzymatic Hospital activity/volume] in Serum or Plasma ID Date Data Source [id number] 10/02/2018 06:04:00 AM EDT [place] [facility] Name Value Range Interpretation Description Data Sup porting Code Source(s) Document(s ) Alkaline 79 U/L [place] phosphatase Hospital [Enzymatic activity/volume ] in Serum or Plasma ID Date Data Source [id number] 10/02/2018 06:04:00 AM EDT [facility] Name Value Range Interpretation Description Data Sup porting Code Source(s) Document(s ) Bilirubin.t 0.3 mg/dL [facility] [Mass/volum e] in Serum or Plasma ID Date Data Source [id number] 10/02/2018 06:04:00 AM EDT [facility] Name Value Range Interpretation Code Description Data Katya rce(s) Supporting Document(s ) Albumin/Glob 1.8 [place] ulin [Mass Hospital Ratio] in Serum or Plasma ID Date Data Source [id number] 10/02/2018 06:04:00 AM EDT [facility] Name Value Range Interpretation Description Data Sup porting Code Source(s) Document(s ) Albumin 4.4 g/dL [place] [Mass/volume Hospital ] in Serum or Plasma ID Date Data Source [id number] 10/02/2018 06:04:00 AM EDT [facility] Name Value Range Interpretation Description Data Sup porting Code Source(s) Document(s ) Protein 6.9 g/dL [place] [Mass/volume Hospital ] in Serum or Plasma ID Date Data Source [id number] 10/02/2018 06:04:00 AM EDT [facility] Name Value Range Interpretation Description Data Sup porting Code Source(s) Document(s ) Calcium 9.1 mg/dL [place] [Mass/volume Hospital ] in Serum or Plasma ID Date Data Source [id number] 10/02/2018 06:04:00 AM EDT [facility] Name Value Range Interpretation Code Description Data Katya rce(s) Supporting Document(s ) Urea 17.5 [place] nitrogen/Cre Hospital atinine [Mass Ratio] in Serum or Plasma ID Date Data Source [id number] 10/02/2018 06:04:00 AM EDT [facility] Name Value Range Interpretation Description Data Sup porting Code Source(s) Document(s ) Creatinine 0.8 mg/dL [place] [Mass/volume] Hospital in Serum or Plasma ID Date Data Source [id number] 10/02/2018 06:04:00 AM EDT [facility] Name Value Range Interpretation Description Data Sup porting Code Source(s) Document(s ) Urea 14 mg/dL [facility] [Mass/volume ] in Serum or Plasma ID Date Data Source [id number] 10/02/2018 06:04:00 AM EDT [facility] Name Value Range Interpretation Code Description Data Katya rce(s) Supporting Document(s ) Anion gap in 13 [place] Serum or [facility] Plasma ID Date Data Source [id number] 10/02/2018 06:04:00 AM EDT [facility] Value Range Interpretation Description Data Sup porting Code Source(s) Document(s ) Carbon 22 mmol/L [place] dioxide, Hospital total [Moles/volu me] in Serum or Plasma ID Date Data Source [id number] 10/02/2018 06:04:00 AM EDT [facility] Name Value Range Interpretation Description Data Sup porting Code Source(s) Document(s ) Chloride 108 [place] [Moles/volum mmol/L Hospital e] in Serum or Plasma ID Date Data Source [id number] 10/02/2018 06:04:00 AM EDT [facility] Name Value Range Interpretation Description Data Sup porting Code Source(s) Document(s ) Potassium 4.3 [place] [Moles/volume mmol/L Hospital ] in Serum or Plasma ID Date Data Source [id number] 10/02/2018 06:04:00 AM EDT [facility] Name Value Range Interpretation Description Data Sup porting Code Source(s) Document(s ) Sodium 139 mmol/L [place] [Moles/volu Hospital me] in Serum or Plasma ID Date Data Source [id number] [facility] Interpretation Description Data Sup porting Code Source(s) Document(s ) Glucose 135 mg/dL [place] [Mass/volume Hospital ] in Serum or Plasma ID Date Data Source [id number] 10/02/2018 06:04:00 AM EDT [facility] Name Value Range Interpretation Code Description Data Katya rce(s) Supporting Document(s ) URINE 0-5 [facility] CASTS ID Date Data Source [id number] 10/02/2018 06:04:00 AM EDT [facility] Name Value Range Interpretation Description Data Sup porting Code Source(s) Document(s ) Erythrocytes 0-3 [place] [#/area] in /[HPF] Hospital Urine sediment by Automated count ID Date Data Source [id number] [facility] Description Data Sup porting Code Source(s) Document(s ) Leukocytes 40-60 [place] [#/area] in /[HPF] Hospital Urine sediment by Automated count ID Date Data Source [id number] 10/02/2018 06:04:00 AM EDT [facility] Name Value Range Interpretation Description Data Sup porting Code Source(s) Document(s ) Leukocyte NEGATIVE [facility] [Presence] in Urine by Test strip ID Date Data Source [id number] 10/[facility] Interpretation Description Data Sup porting Code Source(s) Document(s ) URINE NEGATIVE [facility] Hospital ID Date Data Source [id number] 10/02/2018 06:04:00 AM EDT [facility] Name Value Range Interpretation Description Data Sup porting Code Source(s) Document(s ) Erythrocytes NEGATIVE [place] [#/volume] in Hospital Urine by Test strip ID Date Data Source [id number] 10/02/2018 06:04:00 AM EDT [facility] Name Value Range Interpretation Code Description Data Katya rce(s) Supporting Document(s ) Bilirubin. NEGATIVE [facility] [place] total Hospital [Presence] in Urine by Test strip ID Date Data Source [id number] 10/02/2018 06:04:00 AM EDT [facility] Name Value Range Interpretation Description Data Sup porting Code Source(s) Document(s ) Urobilinogen 1.0 [place] [Units/volume] mg/dL Hospital in Urine by Test strip ID Date Data Source [id number] 10/02/2018 06:04:00 AM EDT [facility] Name Value Range Interpretation Code Description Data Katya rce(s) Supporting Document(s ) Ketones 1+ [place] [Mass/volume Hospital ] in Urine by Test strip ID Date Data Source [id number] 10/02/2018 06:04:00 AM EDT [facility] Name Value Range Interpretation Description Data Sup porting Code Source(s) Document(s ) Glucose NEGATIVE [place] [Mass/volume Hospital ] in Urine by Test strip ID Date Data Source [id number] 10/02/2018 06:04:00 AM EDT [facility] Name Value Range Interpretation Code Description Data Katya rce(s) Supporting Document(s ) Protein 1+ [facility] [place] [Presence] Hospital in Urine by Test strip ID Date Data Source [id number] 10/02/2018 06:04:00 AM EDT [facility] Name Value Range Interpretation Code Description Data Katya rce(s) Supporting Document(s ) pH of Urine 8.0 [place] by Test Hospital strip ID Date Data Source [id number] 10/02/2018 06:04:00 AM EDT [facility] Name Value Range Interpretation Code Description Data Supporting Source(s) Document(s ) Specific 1.019 [place] gravity of Hospital Urine by Test strip ID Date Data Source [id number] 10/02/2018 06:04:00 AM EDT [facility] Name Value Range Interpretation Description Data Sup porting Code Source(s) Document(s ) Clarity in Urine CLEAR [place] by [facility]ract[facility] Hospital automated ID Date Data Source [id number] 10/02/2018 06:04:00 AM EDT [facility] Name Value Range Interpretation Code Description Data Katya rce(s) Supporting Document(s ) Color of YELLOW [place] Urine Hospital ID Date Data Source [id number] 10/02/2018 06:04:00 AM EDT [facility] Name Value Range Interpretation Description Data Sup porting Code Source(s) Document(s ) Platelet mean 9.6 fL [place] volume Hospital [Entitic volume] in Blood by Automated count ID Date Data Source [id number] 10/02/2018 06:04:00 AM EDT [facility] Name Value Range Interpretation Description Data Sup porting Code Source(s) Document(s ) Platelets 323 [place] [#/volume] in 10*3/uL Hospital Blood by Automated count ID Date Data Source [id number] 10/02/2018 06:04:00 AM EDT [facility] Name Value Range Interpretation Description Data Sup porting Code Source(s) Document(s ) Erythrocyte 13.9 % [place] distribution Hospital width [Ratio] by Automated count ID Date Data Source [id number] 10/02/2018 06:04:00 AM [facility] Value Range Interpretation Description Data Sup porting Code Source(s) Document(s ) Erythrocyte mean 32.7 [place] corpuscular g/dL Hospital hemoglobin concentration [Mass/volume] by Automated count ID Date Data Source [id number] 10/02/2018 06:04:00 AM [facility] Value Range Interpretation Description Data Sup porting Code Source(s) Document(s ) Erythrocyte 26.5 pg [facility] corpuscular hemoglobin [Entitic mass] by Automated count ID Date Data Source [id number] 10/02/2018 06:04:00 AM [facility] Value Range Interpretation Description Data Sup porting Code Source(s) Document(s ) Erythrocyte 81.0 fL [facility] corpuscular volume [Entitic volume] by Automated count ID Date Data Source [id number] 10/02/2018 06:04:00 AM [facility] Value Range Interpretation Description Data Sup porting Code Source(s) Document(s ) Hematocrit 34.9 % [place] [Volume Hospital Fraction] of Blood by Automated count ID Date Data Source [id number] 10/02/2018 06:04:00 AM [facility] Value Range Interpretation Description Data Sup porting Code Source(s) Document(s ) Hemoglobin 11.4 g/dL [place] [Mass/volume] Hospital in Blood ID Date Data Source [id number] 10/02/2018 06:04:00 AM [facility] Value Range Interpretation Description Data Sup porting Code Source(s) Document(s ) Erythrocytes 4.31 [place] [#/volume] in 10*6/uL Hospital Blood by Automated count ID Date Data Source [id number] 10/02/2018 06:04:00 AM EDT [facility] Name Value Range Interpretation Description Data Sup porting Code Source(s) Document(s ) Leukocytes 6.8 [place] [#/volume] in 10*3/uL Hospital Blood by Automated count ID Date Data Source [id number] 09/21/2018 03:00:00 AM EDT [facility] 0 Name Value Range Interpretation Description Data Sup porting Code Source(s) Document(s ) Color of Urine YELLOW <content [facility] styleCode="Kristina Dasia d">Color, Medical Urine Center </content>YELL OW <content styleCode="Suzanne lics"> (YELLOW )</content> UNK NEGATIVE <content [facility] styleCode="Kristina Dasia d">Urine Medical Bilirubin Center </content>NEGA TIVE <content styleCode="Suzanne lics"> (NEGATIVE )</content> Glucose NEGATIVE <content [facility] [Mass/volume] styleCode="Kristina Dasia in Urine by d">Urine Medical Test strip Glucose Center </content>NEGA TIVE MG/DL<content styleCode="Suzanne lics"> (NEGATIVE MG/DL)</conten t> UNK CLEAR <content [facility] styleCode="Kristina Dasia d">Urine Medical Clarity Center </content>KIRILL R <content styleCode="Suzanne lics"> (CLEAR )</content> Urobilinogen 0.2-1.0 <content [facility] [Units/volume] styleCode="Kristina Dasia in Urine by d">Urine Medical Test strip Urobilinogen Center </content>0.2 MG/DL<content styleCode="Suzanne lics"> (0.2-1.0 MG/DL)</conten t> Specific 1.015-1.02 Below low normal <content [facility] gravity of 5 styleCode="Kristina Dasia Urine by Test d">Urine Medical strip Specific Center [place] </content>1.01 0 L<content styleCode="Suzanne lics"> (1.015-1.025 )</content> Hemoglobin NEGATIVE <content [facility] [Presence] in styleCode="Kristina Dasia Urine by Test d">Urine Blood Medical strip </content>NEGA Center TIVE <content styleCode="Suzanne lics"> (NEGATIVE )</content> Ketones NEGATIVE <content [facility] [Mass/volume] styleCode="Kristina Lomelis in Urine by d">Urine Medical Test strip Ketone Center </content>NEGA TIVE MG/DL<content styleCode="Suzanne lics"> (NEGATIVE MG/DL)</conten t> Protein NEGATIVE <content [facility] [Mass/volume] styleCode="Kristina Lomelis in Urine by d">Urine Medical Test strip Protein Center </content>30 MG/DL<content styleCode="Suzanne lics"> (NEGATIVE MG/DL)</conten t> pH of Urine by 4.5-8.0 <content [facility] Test strip styleCode="Kristina Lomelis d">Urine pH Medical </content>7.5 Center <content styleCode="Suzanne lics"> (4.5-8.0 )</content> UNK 0-3 <content [facility] styleCode="Kristina Lomelis d">Urine White Medical Blood Cell Center </content>20 - 50 HPF<content styleCode="Suzanne lics"> (0-3 HPF)</content> UNK NEGATIVE <content Saint styleCode="Kristina Lomelis d">Urine Medical Bacteria Center </content>MODE RATE HPF<content styleCode="Suzanne lics"> (NEGATIVE HPF)</content> Leukocyte NEGATIVE <content [facility] esterase styleCode="Kristina Forman [Presence] in d">Urine Medical Urine by Test Leukocyte Center strip </content>NEGA TIVE <content styleCode="Suzanne lics"> (NEGATIVE )</content> Nitrite NEGATIVE <content [facility] [Presence] in styleCode="Kristina Lomelis Urine by Test d">Urine Medical strip Nitrite Center </content>NEGA TIVE <content styleCode="Suzanne lics"> (NEGATIVE )</content> UNK 0-3 <content [facility] styleCode="Kristina Dasia d">Urine Red Medical Blood Cell Center </content>5 - 10 HPF<content styleCode="Suzanne lics"> (0-3 HPF)</content> UNK <content styleCode="Kristina Dasia d">Epithelial Medical Cell Center </content>2-5 LPF (Reference Range: not available)<br/ > UNK NONE SEEN <content [facility] styleCode="Kristina Dasia d">Urine Mucus Medical </content>MODE Center RATE LPF<content styleCode="Suzanne lics"> (NONE SEEN LPF)</content> ID Date Data Source [id number] 09/21/2018 03:00:00 AM EDT [facility] Name Value Range Interpretation Code Description Data Katya rce(s) Supporting Document(s ) UNK <item><content [facility] styleCode="Bold"> Medical [facility] er Culture Report </content>
<t able><tbody><tr>< td>Specimen Number:</td><td>[id number]</td></tr ><tr><td>Sample Collection Date/Time: </td><td>09/21/2018 3:00 AM</td></tr><tr>< td>Specimen Source:</td><td>U RINE</td></tr><tr ><td>Urine Culture:</td><td> Collection Plate Date: 09/21/2018 03:02 </td></tr><tr><td >Culture Status:</td><td>P reliminary </td></tr><tr><td >Culture Report:</td><td>C ulture in progress </td></tr></tbody ></table></item> UNK <item><content [facility] styleCode="Bold"> Medical [facility] er Culture Status </content>
<t able><tbody><tr>< td>Specimen Number:</td><td>[id number]</td></tr ><tr><td>Sample Collection Date/Time: </td><td>09/21/2018 3:00 AM</td></tr><tr>< td>Specimen Source:</td><td>U RINE</td></tr><tr ><td>Culture Status:</td><td>P reliminary </td></tr><tr><td >Culture Report:</td><td>C ulture in progress </td></tr><tr><td >Urine Culture:</td><td> Collection Plate Date: 09/21/2018 03:02 </td></tr></tbody ></table></item> ID Date Data Source [id number] 09/14/2018 08:45:00 PM EDT [facility] 0 Name Value Range Interpretation Description Data Sup porting Code Source(s) Document(s ) Color of Urine YELLOW <content [facility] styleCode="Kristina Dasia d">Color, [facility] Urine Center </content>YELL OW <content styleCode="Suzanne lics"> (YELLOW )</content> Glucose NEGATIVE <content [facility] [Mass/volume] styleCode="Kristina Forman in Urine by d">Urine Medical Test strip Glucose Center </content>NEGA TIVE MG/DL<content styleCode="Suzanne lics"> (NEGATIVE MG/DL)</conten t> UNK CLEAR <content [facility] styleCode="Kristina Dasia d">Urine Medical Clarity Center </content>KIRILL R <content styleCode="Suzanne lics"> (CLEAR )</content> UNK NEGATIVE <content [facility] styleCode="Kristina Dasia d">Urine Medical Bilirubin Center </content>NEGA TIVE <content styleCode="Suzanne lics"> (NEGATIVE )</content> pH of Urine by 4.5-8.0 <content [facility] Test strip styleCode="Kristina Dasia d">Urine pH Medical </content>5.5 Center <content styleCode="Suzanne lics"> (4.5-8.0 )</content> Specific 1.015-1.02 Above high <content [facility] gravity of 5 normal styleCode="Kristina Lomelis Urine by Test d">Urine Medical strip Specific Center [place] </content>>= 1.030 H<content styleCode="Suzanne lics"> (1.015-1.025 )</content> Ketones NEGATIVE <content [facility] [Mass/volume] styleCode="Kristina Dasia in Urine by d">Urine Medical Test strip Ketone Center </content>NEGA TIVE MG/DL<content styleCode="Suzanne lics"> (NEGATIVE MG/DL)</conten t> Hemoglobin NEGATIVE <content [facility] [Presence] in styleCode="Kristina Lomelis Urine by Test d">Urine Blood Medical strip </content>SMAL Center L <content styleCode="Suzanne lics"> (NEGATIVE )</content> Protein NEGATIVE <content [facility] [Mass/volume] styleCode="Kristina Dasia in Urine by d">Urine Medical Test strip Protein Center </content>30 MG/DL<content styleCode="Suzanne lics"> (NEGATIVE MG/DL)</conten t> Nitrite NEGATIVE <content [facility] [Presence] in styleCode="Kristina Lomelis Urine by Test d">Urine Medical strip Nitrite Center </content>NEGA TIVE <content styleCode="Suzanne lics"> (NEGATIVE )</content> Urobilinogen 0.2-1.0 <content [facility] [Units/volume] styleCode="Kristina Lomelis in Urine by d">Urine Medical Test strip Urobilinogen Center </content>0.2 MG/DL<content styleCode="Suzanne lics"> (0.2-1.0 MG/DL)</conten t> Leukocyte NEGATIVE <content [facility] esterase styleCode="Kristina Dasia [Presence] in d">Urine Medical Urine by Test Leukocyte Center strip </content>NEGA TIVE <content styleCode="Suzanne lics"> (NEGATIVE )</content> UNK 0-3 <content [facility] styleCode="Kristina Dasia d">Urine Red Medical Blood Cell Center </content>0-3 HPF<content styleCode="Suzanne lics"> (0-3 HPF)</content> UNK 0-3 <content [facility] styleCode="Kristina Dasia d">Urine White Medical Blood Cell Center </content>>200 HPF<content styleCode="Suzanne lics"> (0-3 HPF)</content> UNK NEGATIVE <content [facility] styleCode="Kristina Lomelis d">Urine Medical Bacteria Center </content>FEW HPF<content styleCode="Suzanne lics"> (NEGATIVE HPF)</content> UNK <content [facility] styleCode="Kristina Lomelis d">Epithelial Medical Cell Center </content>2-5 LPF (Reference Range: not available)<br/ > ID Date Data Source [id number] 09/14/2018 08:45:00 PM EDT [facility] -0400 Name Value Range Interpretation Description Data Sup porting Code Source(s) Document(s ) Cannabinoids <content [facility] [Presence] in styleCode="[facility] Urine by Screen d">Cannabinoid Medical method >50 ng/mL s Center </content>NEGA TIVE NG/ML (Reference Range: not available)<br/ > ID Date Data Source Liver 09/14/2018 08:04:00 PM EDT [facility] [id number] Name Value Range Interpretation Description Data Sup porting Code Source(s) Document(s ) UNK 0.0-0.3 <content [facility] styleCode="Bold"> Dasia Bilirubin, Direct Medical </content>< 0.2 Center MG/DL<content styleCode="Italic s"> (0.0-0.3 MG/DL)</content> Albumin 3.5-5.0 <content [facility] [Mass/volume] in styleCode="Bold"> Jake hs Serum or Plasma Albumin Medical </content>4.3 Center G/DL<content styleCode="Italic s"> (3.5-5.0 G/DL)</content> Bilirubin.total 0.2-1.3 <content [facility] [Mass/volume] in styleCode="Bold"> [facility] Serum or Plasma Bilirubin Total Medical </content>0.6 Center MG/DL<content styleCode="Italic s"> (0.2-1.3 MG/DL)</content> Aspartate 17-59 Above high <content [facility] aminotransferase normal styleCode="Bold"> [facility] [Enzymatic Aspartate Medical activity/volume] Aminotransferase Center in Serum or Plasma (AST) </content>96 IU/L H<content styleCode="Italic s"> (17-59 IU/L)</content> Alkaline 38-126 <content [facility] phosphatase styleCode="Bold"> Dasia [Enzymatic Alkaline Medical activity/volume] Phosphatase (ALP) Cente r in Serum or Plasma </content>77 IU/L<content styleCode="Italic s"> (38-126 IU/L)</content> Alanine 7-50 <content [facility] aminotransferase styleCode="Bold"> [facility] [Enzymatic Alanine Medical activity/volume] Aminotransferase Center in Serum or Plasma (ALT) </content>28 IU/L<content styleCode="Italic s"> (7-50 IU/L)</content> ID Date Data Source [id number] 09/14/2018 08:04:00 PM EDT [facility] 0400 Name Value Range Interpretation Description Data Sup porting Code Source(s) Document(s ) Erythrocytes 4.4-5.9 Below low normal <content [facility] [#/volume] in styleCode="Bold Dasia Blood by ">Red Blood Medical Automated count Cell Count Center </content>4.28 MCUMM L<content styleCode="Ital ics"> (4.4-5.9 MCUMM)</content > Leukocytes 4.4-11.0 Above high <content [facility] [#/volume] in normal styleCode="Bold Dasia Blood by ">White Blood Medical Automated count Cell Count Center </content>16.22 KCUMM H<content styleCode="Ital ics"> (4.4-11.0 KCUMM)</content > Hematocrit 41.0-53. Below low normal <content [facility] [Volume 0 styleCode="Bold Dasia Fraction] of ">Hematocrit Medical Blood by </content>36.5 Center Automated count % L<content styleCode="Ital ics"> (41.0-53.0 %)</content> Erythrocyte mean 80.0-100 <content [facility] corpuscular .0 styleCode="Bold Dasia volume [Entitic ">Mean Medical volume] by Corpuscular Center Automated count Volume </content>85.3 FL<content styleCode="Ital ics"> (80.0-100.0 FL)</content> Erythrocyte mean 32.0-37. Below low normal <content [facility] corpuscular 0 styleCode="Bold Dasia hemoglobin ">Mean Corpus. Medical concentration Hgb Center [Mass/volume] by Concentration Automated count (MCHC) </content>31.5 G/DL L<content styleCode="Ital ics"> (32.0-37.0 G/DL)</content> Hemoglobin 13.5-17. Below low normal <content [facility] [Mass/volume] in 5 styleCode="Bold Dasia Blood ">Hemoglobin Medical </content>11.5 Center G/DL L<content styleCode="Ital ics"> (13.5-17.5 G/DL)</content> Erythrocyte mean 26.0-34. <content [facility] corpuscular 0 styleCode="Bold Dasia hemoglobin ">Mean Medical [Entitic mass] Corposcular Center by Automated Hemoglobin count </content>26.9 PG<content styleCode="Ital ics"> (26.0-34.0 PG)</content> Erythrocyte 11.5-14. Above high <content [facility] distribution 5 normal styleCode="Bold Dasia width [Ratio] by ">Red Cell Medical Automated count Distribution Center Width </content>14.6 % H<content styleCode="Ital ics"> (11.5-14.5 %)</content> Platelets 130-400 <content [facility] [#/volume] in styleCode="Bold Dasia Blood by ">Platelet Medical Automated count Count Center </content>372 KCUMM<content styleCode="Ital ics"> (130-400 KCUMM)</content > UNK 0 <content [facility] styleCode="Bold Dasia ">Nucleated Red Medical Blood Cell Center </content>0.0 /100<content styleCode="Ital ics"> (0 /100)</content> UNK 0.0 <content [facility] styleCode="Bold Dasia ">Nucleated Red Medical Blood Cell Center Count </content>0.00 KCUMM<content styleCode="Ital ics"> (0.0 KCUMM)</content > Platelet mean 8.0-11.0 <content [facility] volume [Entitic styleCode="Bold Dasia volume] in Blood ">Mean Platelet Medical by Automated Volume Center count </content>9.4 FL<content styleCode="Ital ics"> (8.0-11.0 FL)</content> ID Date Data Source GFR(Creatinine).[id number] 09/14/2018 08:04:00 PM EDT [facility] 0-0400 Name Value Range Interpretation Code Description Data Katya rce(s) Supporting Document(s ) UNK > 60 <content [facility] styleCode="Bold"> Medical Cent er EGFR </content>63 GFR<content styleCode="Italic s"> (> 60 GFR)</content> ID Date Data Source CardiacMarkers.[id number] 09/14/2018 08:04:00 PM EDT [facility] -0400 Name Value Range Interpretation Description Data Sup porting Code Source(s) Document(s ) Creatine 55-170 Above high normal <content [facility] kinase styleCode="Bold Medical [Enzymatic ">CK Center activity/vol </content>646 ume] in IU/L H<content Serum or styleCode="Ital Plasma ics"> (55-170 IU/L)</content> ID Date Data Source [id number] 09/14/2018 08:04:00 PM EDT [facility] Name Value Range Interpretation Description Data Sup porting Code Source(s) Document(s ) Sodium 137-145 <content [facility] [Moles/volume] in styleCode="Bold"> Bipin phs Serum or Plasma Sodium Medical </content>140 Center MEQ/L<content styleCode="Italic s"> (137-145 MEQ/L)</content> Chloride 98-107 <content [facility] [Moles/volume] in styleCode="Bold"> Bipin phs Serum or Plasma Chloride Medical </content>101 Center MEQ/L<content styleCode="Italic s"> (98-107 MEQ/L)</content> Creatinine 0.5-1.3 <content [facility] [Mass/volume] in styleCode="Bold"> Jake hs Serum or Plasma Creatinine Medical </content>1.3 Center MG/DL<content styleCode="Italic s"> (0.5-1.3 MG/DL)</content> Potassium 3.5-5.3 <content [facility] [Moles/volume] in styleCode="Bold"> Bipin phs Serum or Plasma Potassium Medical </content>5.1 Center MEQ/L<content styleCode="Italic s"> (3.5-5.3 MEQ/L)</content> UNK 9-20 Above high <content [facility] normal styleCode="Bold"> Dasia BUN </content>28 Medical MG/DL H<content Center styleCode="Italic s"> (9-20 MG/DL)</content> Glucose 74-106 Above high <content [facility] [Mass/volume] in normal styleCode="Bold"> Jake hs Serum or Plasma Glucose Medical </content>122 Center MG/DL H<content styleCode="Italic s"> (74-106 MG/DL)</content> Carbon dioxide, 22-30 <content Saint total styleCode="Bold"> Dasia [Moles/volume] in Carbon Dioxide Medical Serum or Plasma </content>26 Center MEQ/L<content styleCode="Italic s"> (22-30 MEQ/L)</content> Alanine 7-50 <content [facility] aminotransferase styleCode="Bold"> Jake hs [Enzymatic Alanine Medical activity/volume] Aminotransferase Center in Serum or Plasma (ALT) </content>28 IU/L<content styleCode="Italic s"> (7-50 IU/L)</content> Alkaline 38-126 <content [facility] phosphatase styleCode="Bold"> [facility] [Enzymatic Alkaline Medical activity/volume] Phosphatase (ALP) Cente r in Serum or Plasma </content>77 IU/L<content styleCode="Italic s"> (38-126 IU/L)</content> Bilirubin.total 0.2-1.3 <content [facility] [Mass/volume] in styleCode="Bold"> [facility] Serum or Plasma Bilirubin Total Medical </content>0.6 Center MG/DL<content styleCode="Italic s"> (0.2-1.3 MG/DL)</content> UNK > 60 <content [facility] styleCode="Bold"> [facility] EGFR </content>63 Medical GFR<content Center styleCode="Italic s"> (> 60 GFR)</content> Calcium 8.4-10. <content [facility] [Mass/volume] in 2 styleCode="Bold"> Jake hs Serum or Plasma Calcium Medical </content>9.3 Center MG/DL<content styleCode="Italic s"> (8.4-10.2 MG/DL)</content> Aspartate 17-59 Above high <content [facility] aminotransferase normal styleCode="Bold"> [facility] [Enzymatic Aspartate Medical activity/volume] Aminotransferase Center in Serum or Plasma (AST) </content>96 IU/L H<content styleCode="Italic s"> (17-59 IU/L)</content> Albumin 3.5-5.0 <content [facility] [Mass/volume] in styleCode="Bold"> [facility] Serum or Plasma Albumin Medical </content>4.3 Center G/DL<content styleCode="Italic s"> (3.5-5.0 G/DL)</content> ID Date Data Source Liver Profile 03/06/2018 08:38:00 PM EST [facility] Name Value Range Interpretation Description Data Sup porting Code Source(s) Document(s ) Aspartate 17-59 Below low <content [facility] aminotransferase normal styleCode="Bold"> [facility] hs [Enzymatic Aspartate Medical activity/volume] Aminotransferase Center in Serum or Plasma (AST) </content>16 IU/L L<content styleCode="Italic s"> (17-59 IU/L)</content> Bilirubin.total 0.2-1.3 <content [facility] [Mass/volume] in styleCode="Bold"> [facility] Serum or Plasma Bilirubin Total Medical </content>0.3 Center MG/DL<content styleCode="Italic s"> (0.2-1.3 MG/DL)</content> Alkaline 38-126 <content [facility] phosphatase styleCode="Bold"> Dasia [Enzymatic Alkaline Medical activity/volume] Phosphatase (ALP) Cente r in Serum or Plasma </content>65 IU/L<content styleCode="Italic s"> (38-126 IU/L)</content> Alanine 7-50 <content [facility] aminotransferase styleCode="Bold"> Jake hs [Enzymatic Alanine Medical activity/volume] Aminotransferase Center in Serum or Plasma (ALT) </content>12 IU/L<content styleCode="Italic s"> (7-50 IU/L)</content> Albumin 3.5-5.0 <content [facility] [Mass/volume] in styleCode="Bold"> Jake [facility] Serum or Plasma Albumin Medical </content>3.6 Center G/DL<content styleCode="Italic s"> (3.5-5.0 G/DL)</content> ID Date Data Source GFR(Creatinine) 03/06/2018 08:38:00 PM [facility] Name Value Range Interpretation Code Description Data Katya rce(s) Supporting Document(s ) UNK > 60 <content [facility] styleCode="Bold"> Medical Cent er EGFR </content>154 GFR<content styleCode="Italic s"> (> 60 GFR)</content> ID Date Data Source [id number] 03/06/2018 08:38:00 PM [facility] Name Value Range Interpretation Description Data Sup porting Code Source(s) Document(s ) UNK 2.3-3.5 <content [facility] styleCode="Bold Medical ">Globulin Center </content>2.5 G/DL<content styleCode="Ital ics"> (2.3-3.5 G/DL)</content> UNK >= 1.0 <content [facility] styleCode="Bold Medical ">AG Ratio Center </content>1.4 NM<content styleCode="Ital ics"> (>= 1.0 NM)</content> Protein 6.3-8.2 Below low normal <content [facility] [Mass/volum styleCode="Bold Medical e] in Serum ">Total Protein Center or Plasma </content>6.1 G/DL L<content styleCode="Ital ics"> (6.3-8.2 G/DL)</content> ID Date Data Source CardiacMarkers 03/06/2018 08:38:00 PM [facility] Name Value Range Interpretation Description Data Sup porting Code Source(s) Document(s ) Troponin 0-0.034 <content [facility] I.cardiac styleCode="Bold [facility] [Mass/volume ">Troponin I Medical ] in Serum </content>< Center or Plasma 0.012 NG/ML<content styleCode="Ital ics"> (0-0.034 NG/ML)</content > ID Date Data Source BMP 03/06/2018 08:38:00 PM [facility] Name Value Range Interpretation Description Data Sup porting Code Source(s) Document(s ) Sodium 137-145 <content [facility] [Moles/volume] in styleCode="Bold"> [facility] Serum or Plasma Sodium Medical </content>139 Center MEQ/L<content styleCode="Italic s"> (137-145 MEQ/L)</content> Potassium 3.5-5.3 <content [facility] [Moles/volume] in styleCode="Bold"> [facility] Serum or Plasma Potassium Medical </content>4.3 Center MEQ/L<content styleCode="Italic s"> (3.5-5.3 MEQ/L)</content> UNK 9-20 <content [facility] styleCode="Bold"> [facility] BUN </content>19 Medical MG/DL<content Center styleCode="Italic s"> (9-20 MG/DL)</content> Carbon dioxide, 22-30 <content [facility] total styleCode="Bold"> [facility] [Moles/volume] in Carbon Dioxide Medical Serum or Plasma </content>29 Center MEQ/L<content styleCode="Italic s"> (22-30 MEQ/L)</content> Chloride 98-107 <content [facility] [Moles/volume] in styleCode="Bold"> [facility] Serum or Plasma Chloride Medical </content>105 Center MEQ/L<content styleCode="Italic s"> (98-107 MEQ/L)</content> Creatinine 0.5-1.3 <content [facility] [Mass/volume] in styleCode="Bold"> [facility] Serum or Plasma Creatinine Medical </content>0.6 Center MG/DL<content styleCode="Italic s"> (0.5-1.3 MG/DL)</content> Glucose 74-106 <content [facility] [Mass/volume] in styleCode="Bold"> [facility] Serum or Plasma Glucose Medical </content>97 Center MG/DL<content styleCode="Italic s"> (74-106 MG/DL)</content> Calcium 8.4-10. <content [facility] [Mass/volume] in 2 styleCode="Bold"> [facility] Serum or Plasma Calcium Medical </content>8.5 Center MG/DL<content styleCode="Italic s"> (8.4-10.2 MG/DL)</content> UNK > 60 <content [facility] styleCode="Bold"> [facility] EGFR Medical </content>154 Center GFR<content styleCode="Italic s"> (> 60 GFR)</content> Aspartate 17-59 Below low <content [facility] aminotransferase normal styleCode="Bold"> [facility] [Enzymatic Aspartate Medical activity/volume] Aminotransferase Center in Serum or Plasma (AST) </content>16 IU/L L<content styleCode="Italic s"> (17-59 IU/L)</content> Alanine 7-50 <content [facility] aminotransferase styleCode="Bold"> [facility] [Enzymatic Alanine Medical activity/volume] Aminotransferase Center in Serum or Plasma (ALT) </content>12 IU/L<content styleCode="Italic s"> (7-50 IU/L)</content> Bilirubin.total 0.2-1.3 <content [facility] [Mass/volume] in styleCode="Bold"> [facility] Serum or Plasma Bilirubin Total Medical </content>0.3 Center MG/DL<content styleCode="Italic s"> (0.2-1.3 MG/DL)</content> Alkaline 38-126 <content [facility] phosphatase styleCode="Bold"> [facility] [Enzymatic Alkaline Medical activity/volume] Phosphatase (ALP) Cente r in Serum or Plasma </content>65 IU/L<content styleCode="Italic s"> (38-126 IU/L)</content> Albumin 3.5-5.0 <content [facility] [Mass/volume] in styleCode="Bold"> [facility] Serum or Plasma Albumin Medical </content>3.6 Center G/DL<content styleCode="Italic s"> (3.5-5.0 G/DL)</content> ID Date Data Source HematologyRou 03/06/2018 08:05:00 PM EST [facility] Name Value Range Interpretation Description Data Sup porting Code Source(s) Document(s ) Leukocytes 4.4-11.0 Above high <content [facility] [#/volume] in normal styleCode="Bold Dasia Blood by ">White Blood Medical Automated count Cell Count Center </content>13.08 KCUMM H<content styleCode="Ital ics"> (4.4-11.0 KCUMM)</content > Erythrocytes 4.4-5.9 Below low normal <content [facility] [#/volume] in styleCode="Bold Dasia Blood by ">Red Blood Medical Automated count Cell Count Center </content>4.09 MCUMM L<content styleCode="Ital ics"> (4.4-5.9 MCUMM)</content > Hematocrit 41.0-53. Below low normal <content [facility] [Volume 0 styleCode="Bold Dasia Fraction] of ">Hematocrit Medical Blood by </content>33.4 Center Automated count % L<content styleCode="Ital ics"> (41.0-53.0 %)</content> Hemoglobin 13.5-17. Below low normal <content [facility] [Mass/volume] in 5 styleCode="Bold Dasia Blood ">Hemoglobin Medical </content>10.4 Center G/DL L<content styleCode="Ital ics"> (13.5-17.5 G/DL)</content> Erythrocyte mean 26.0-34. Below low normal <content [facility] corpuscular 0 styleCode="Bold Dasia hemoglobin ">Mean Medical [Entitic mass] Corposcular Center by Automated Hemoglobin count </content>25.4 PG L<content styleCode="Ital ics"> (26.0-34.0 PG)</content> Erythrocyte mean 80.0-100 <content [facility] corpuscular .0 styleCode="Bold Dasia volume [Entitic ">Mean Medical volume] by Corpuscular Center Automated count Volume </content>81.7 FL<content styleCode="Ital ics"> (80.0-100.0 FL)</content> Erythrocyte mean 32.0-37. Below low normal <content [facility] corpuscular 0 styleCode="Bold Dasia hemoglobin ">Mean Corpus. Medical concentration Hgb Center [Mass/volume] by Concentration Automated count (MCHC) </content>31.1 G/DL L<content styleCode="Ital ics"> (32.0-37.0 G/DL)</content> Platelets 130-400 <content [facility] [#/volume] in styleCode="Bold Dasia Blood by ">Platelet Medical Automated count Count Center </content>267 KCUMM<content styleCode="Ital ics"> (130-400 KCUMM)</content > Erythrocyte 11.5-14. Above high <content [facility] distribution 5 normal styleCode="Bold Dasia width [Ratio] by ">Red Cell Medical Automated count Distribution Center Width </content>15.5 % H<content styleCode="Ital ics"> (11.5-14.5 %)</content> Neutrophils 36-66 Above high <content [facility] [#/volume] in normal styleCode="Bold Dasia Blood by ">Neutrophil Medical Automated count </content>88.4 Center % H<content styleCode="Ital ics"> (36-66 %)</content> Platelet mean 8.0-11.0 <content [facility] volume [Entitic styleCode="Bold Dasia volume] in Blood ">Mean Platelet Medical by Automated Volume Center count </content>9.8 FL<content styleCode="Ital ics"> (8.0-11.0 FL)</content> Lymphocytes 24.0-44. Below low normal <content [facility] [#/volume] in 0 styleCode="Bold Dasia Blood by ">Lymphocyte Medical Automated count </content>4.6 % Center L<content styleCode="Ital ics"> (24.0-44.0 %)</content> UNK 1.0-4.8 Below low normal <content [facility] styleCode="Bold Dasia ">Lymphocyte Medical Count Center </content>0.60 KCUMM L<content styleCode="Ital ics"> (1.0-4.8 KCUMM)</content > UNK 1.6-7.3 Above high <content [facility] normal styleCode="Bold Dasia ">Neutrophil Medical Count Center </content>11.57 KCUMM H<content styleCode="Ital ics"> (1.6-7.3 KCUMM)</content > Eosinophils 0-5.0 <content [facility] [#/volume] in styleCode="Bold Dasia Blood by ">Eosinophil Medical Automated count </content>3.1 Center %<content styleCode="Ital ics"> (0-5.0 %)</content> Monocytes 3.0-10.0 <content [facility] [#/volume] in styleCode="Bold Dasia Blood by ">Monocyte Medical Automated count </content>3.0 Center %<content styleCode="Ital ics"> (3.0-10.0 %)</content> UNK 0.2-0.9 <content [facility] styleCode="Bold Dasia ">Monocyte Medical Count Center </content>0.39 KCUMM<content styleCode="Ital ics"> (0.2-0.9 KCUMM)</content > Basophils 0.0-1.0 <content [facility] [#/volume] in styleCode="Bold Dasia Blood by ">Basophil Medical Automated count </content>0.5 Center %<content styleCode="Ital ics"> (0.0-1.0 %)</content> UNK 0.0-0.6 <content [facility] styleCode="Bold Dasia ">Eosinophil Medical Count Center </content>0.41 KCUMM<content styleCode="Ital ics"> (0.0-0.6 KCUMM)</content > UNK 0 <content [facility] styleCode="Bold Dasia ">Nucleated Red Medical Blood Cell Center </content>0.0 /100<content styleCode="Ital ics"> (0 /100)</content> UNK 0.0-0.3 <content [facility] styleCode="Bold Dasia ">Basophil Medical Count Center </content>0.06 KCUMM<content styleCode="Ital ics"> (0.0-0.3 KCUMM)</content > UNK 0-0.1 <content [facility] styleCode="Bold Dasia ">Immature Medical Granulocyte Center Count </content>0.05 KCUMM<content styleCode="Ital ics"> (0-0.1 KCUMM)</content > UNK < 1 <content [facility] styleCode="Bold Dasia ">Immature Medical Granulocyte Center Ratio </content>0.4 %<content styleCode="Ital ics"> (< 1 %)</content> UNK 0.0 <content [facility] styleCode="Bold Dasia ">Nucleated Red Medical Blood Cell Center Count </content>0.00 KCUMM<content styleCode="Ital ics"> (0.0 KCUMM)</content > Procedure Social History Code Duration Value Status Description Data Source(s ) Smoking 09/21/2019 Daily Smoker completed Daily Smoker [facility] 04:51:00 PM Medical Cente r EDT Smoking 09/21/2019 Daily Smoker completed Daily Smoker [facility] 04:50:00 PM Medical Cente r EDT Smoking 09/21/2019 Daily Smoker completed Daily Smoker [facility] 04:44:00 PM Medical Cente r EDT Smoking 07/27/2019 Daily Smoker completed Daily Smoker [facility] 04:20:00 PM Medical Cente r EDT Smoking 07/27/2019 Daily Smoker completed Daily Smoker [facility] 04:15:00 PM Medical Cente r EDT Smoking 07/27/2019 Daily Smoker completed Daily Smoker [facility] 04:13:00 PM Medical Cente r EDT Smoking 07/27/2019 Daily Smoker completed Daily Smoker [facility] 12:26:00 PM Medical Cente r EDT Smoking 07/27/2019 Daily Smoker completed Daily Smoker [facility] 12:16:00 PM Medical Cente r EDT Smoking 11/07/2018 Daily Smoker completed Daily Smoker [facility] 04:41:00 PM Medical Cente r EDT Smoking 11/07/2018 Daily Smoker completed Daily Smoker [facility] 04:40:00 PM Medical Cente r EDT Smoking 11/07/2018 Daily Smoker completed Daily Smoker [facility] 04:01:00 PM Medical Cente r EDT Smoking 10/02/2018 Tobacco smoking completed Tobacco smoking [facility]ater[facility]ans 05:41:00 AM consumption unknown consumption [facility] EDT (finding) unknown (finding) Smoking 09/21/2018 Daily Smoker completed Daily Smoker [facility] 01:20:00 AM Medical Cente r EDT Smoking 09/21/2018 Daily Smoker completed Daily Smoker [facility] 01:15:00 AM Medical Cente r EDT Smoking 09/21/2018 Daily Smoker completed Daily Smoker [facility] 01:00:00 AM Medical Cente r EDT Smoking 09/14/2018 Daily Smoker completed Daily Smoker [facility] 08:00:00 PM Medical Cente r EDT Smoking 09/14/2018 Daily Smoker completed Daily Smoker [facility] 07:50:00 PM Medical Cente r EDT Smoking 09/14/2018 Daily Smoker completed Daily Smoker [facility] 07:40:00 PM Medical Cente r EDT Smoking 05/30/2018 Daily Smoker completed Daily Smoker [facility] 05:45:00 PM Medical Cente r EST Smoking 05/30/2018 Daily Smoker completed Daily Smoker [facility] 05:36:00 PM Medical Cente r EST Smoking 03/12/2018 Occasional Smoker completed Occasional Smoker [facility] 04:59:00 AM Medical Cente r EST Smoking 03/12/2018 Occasional Smoker completed Occasional Smoker [facility] 04:08:00 AM Medical Cente r EST Smoking 03/12/2018 Occasional Smoker completed Occasional Smoker [facility] 02:15:00 AM Medical Cente r EST Smoking 03/06/2018 [id number] completed [facility] 09:44:00 PM Medical Cente r EST Smoking 03/06/2018 [id number] completed [facility] 06:52:00 PM Medical Cente r EST Smoking 03/06/2018 [id number] completed [facility] 06:52:00 PM Medical Cente r EST Smoking 03/06/2018 [id number] completed [facility] 06:48:00 PM Medical Cente r EST Smoking 03/05/2018 [id number] completed [facility] 12:10:00 AM Medical Cente r EST Smoking 03/05/2018 [id number] completed [facility] 12:05:00 AM Medical Cente r EST Smoking Unknown if ever completed Unknown if ever [facility] smoked smoked [facility] Smoking Unknown if ever completed Unknown if ever Arianeelroy Forman smoked smoked Medical Center Vital Signs ID Date Data Source UNK Name Value Range Interpretation Code Description Data Source(s) Body weight 83.267412 kg 83.388814 kg [facility] Measured [facility] Center Body temperature 36.607898 Linda 36.569860 Linda [facility] Respiratory rate 18 /min 18 /min [facility] Oxygen 97 % 97 % [facility] saturation in Medical Arterial blood Center by Pulse oximetry Heart rate 95 /min 95 /min [facility] Body height 170.056834 cm 170.419413 cm [facility] Diastolic blood 93 mm[Hg] 93 mm[Hg] [facility] Center Systolic blood 150 mm[Hg] 150 mm[Hg] [facility] Center Body mass index 28.9 kg/m2 28.9 kg/m2 [facility] (BMI) [Ratio] Medical Center Body temperature 36.151925 Linda 36.033755 Linda [facility] Respiratory rate 17 /min 17 /min [facility] Oxygen 98 % 98 % [facility] saturation in Medical Arterial blood Center by Pulse oximetry Heart rate 121 /min 121 /min [facility] Diastolic blood 89 mm[Hg] 89 mm[Hg] [facility] Center Systolic blood 136 mm[Hg] 136 mm[Hg] [facility] Body weight 85.226429 kg 85.794298 kg [facility] Measured Medical Center Body temperature 37.654783 Linda 37.188742 Linda [facility] Respiratory rate 18 /min 18 /min [facility] Oxygen 98 % 98 % [facility] saturation in Medical Arterial blood Center by Pulse oximetry Heart rate 90 /min 90 /min [facility] Body height 172.263157 cm 172.736597 cm [facility] Diastolic blood 88 mm[Hg] 88 mm[Hg] [facility] pressure Medical Center Systolic blood 148 mm[Hg] 148 mm[Hg] [facility] pressure Medical Center Body mass index 28.4 kg/m2 28.4 kg/m2 [facility] (BMI) [Ratio] Medical Center Body temperature 36.712852 Linda 36.844721 Linda [facility] Respiratory rate 16 /min 16 /min [facility] Center Oxygen 98 % 98 % [facility] saturation in Medical Arterial blood Center by Pulse oximetry Heart rate 89 /min 89 /min [facility] Diastolic blood 55 mm[Hg] 55 mm[Hg] [facility] pressure Medical Center Systolic blood 100 mm[Hg] 100 mm[Hg] [facility] pressure Medical Center Body temperature 37.425462 Linda 37.125038 Linda [facility] Respiratory rate 16 /min 16 /min [facility] Oxygen 97 % 97 % [facility] saturation in Medical Arterial blood Center by Pulse oximetry Heart rate 93 /min 93 /min [facility] Diastolic blood 50 mm[Hg] 50 mm[Hg] [facility] pressure Medical Center Systolic blood 97 mm[Hg] 97 mm[Hg] [facility] pressure Medical Center Diastolic blood 73 mmHg 73 mmHg [facility] Systolic blood 110 mmHg 110 mmHg [facility] Respiratory rate 18 bpm 18 bpm [facility] Heart rate 91 bpm 91 bpm [facility] Diastolic blood 69 mmHg 69 mmHg [facility] Systolic blood 111 mmHg 111 mmHg [facility] Respiratory rate 18 bpm 18 bpm [facility] Heart rate 77 bpm 77 bpm [facility] Body temperature 97.7 Fahrenheit 97.7 Fahrenh t [facility] Diastolic blood 76 mmHg 76 mmHg [facility] Systolic blood 121 mmHg 121 mmHg [facility] Respiratory rate 18 bpm 18 bpm [facility] Heart rate 81 bpm 81 bpm [facility] Body temperature 97.6 Fahrenheit 97.6 Fahrenhei t [facility] Diastolic blood 72 mmHg 72 mmHg [facility] Systolic blood 106 mmHg 106 mmHg [facility] Respiratory rate 18 bpm 18 bpm [facility] Heart rate 67 bpm 67 bpm [facility] Body temperature 97.6 Fahrenheit 97.6 Fahrenhei t [facility] Diastolic blood 73 mmHg 73 mmHg [facility] Systolic blood 101 mmHg 101 mmHg [facility] Heart rate 74 bpm 74 bpm [facility] Diastolic blood 69 mmHg 69 mmHg [facility] Systolic blood 102 mmHg 102 mmHg [facility] Respiratory rate 18 bpm 18 bpm [facility] Heart rate 59 bpm 59 bpm [facility] Body temperature 98.4 Fahrenheit 98.4 Fahrenhei t [facility] Diastolic blood 72 mmHg 72 mmHg [facility] Systolic blood 106 mmHg 106 mmHg [facility] Heart rate 78 bpm 78 bpm [facility] Diastolic blood 79 mmHg 79 mmHg [facility] Systolic blood 123 mmHg 123 mmHg [facility] Respiratory rate 18 bpm 18 bpm [facility] Heart rate 69 bpm 69 bpm [facility] Body temperature 98.0 Fahrenheit 98.0 Fahrenhei t [facility] Diastolic blood 78 mmHg 78 mmHg [facility] Systolic blood 114 mmHg 114 mmHg [facility] Heart rate 83 bpm 83 bpm [facility] Body weight 160.0 lbs 160.0 lbs [facility] Diastolic blood 79 mmHg 79 mmHg [facility] Systolic blood 110 mmHg 110 mmHg [facility] Respiratory rate 18 bpm 18 bpm [facility] Heart rate 78 bpm 78 bpm [facility] Body temperature 97.3 Fahrenheit 97.3 Fahrenhei t [facility] Diastolic blood 72 mmHg 72 mmHg [facility] Systolic blood 97 mmHg 97 mmHg [facility] Heart rate 81 bpm 81 bpm [facility] Diastolic blood 69 mmHg 69 mmHg [facility] Systolic blood 123 mmHg 123 mmHg [facility] Heart rate 94 bpm 94 bpm [facility] Diastolic blood 72 mmHg 72 mmHg [facility] Systolic blood 112 mmHg 112 mmHg [facility] Respiratory rate 16 bpm 16 bpm [facility] Heart rate 81 bpm 81 bpm [facility] Body temperature 97.7 Fahrenheit 97.7 Fahrenhei t [facility] Respiratory rate 18 bpm 18 bpm [facility] Body temperature 36.9 Fahrenheit 36.9 Fahrenhei t [facility] Diastolic blood 63 mmHg 63 mmHg [facility] Systolic blood 97 mmHg 97 mmHg [facility] Heart rate 99 bpm 99 bpm [facility] Respiratory rate 18 bpm 18 bpm [facility] Body temperature 98.2 Fahrenheit 98.2 Fahrenhei t [facility] Diastolic blood 76 mmHg 76 mmHg [facility] Systolic blood 116 mmHg 116 mmHg [facility] Heart rate 105 bpm 105 bpm [facility] Diastolic blood 85 mmHg 85 mmHg [facility] Systolic blood 117 mmHg 117 mmHg [facility] Heart rate 86 bpm 86 bpm [facility] Respiratory rate 18 bpm 18 bpm [facility] Body temperature 97.9 Fahrenheit 97.9 Fahrenhei t [facility] Diastolic blood 82 mmHg 82 mmHg [facility] Systolic blood 154 mmHg 154 mmHg [facility] Heart rate 77 bpm 77 bpm [facility] Diastolic blood 85 mmHg 85 mmHg [facility] Systolic blood 127 mmHg 127 mmHg [facility] Respiratory rate 18 bpm 18 bpm [facility] Heart rate 105 bpm 105 bpm [facility] Body temperature 98.4 Fahrenheit 98.4 Fahrenhei t [facility] Diastolic blood 77 mmHg 77 mmHg [facility] Systolic blood 109 mmHg 109 mmHg [facility] Respiratory rate 18 bpm 18 bpm [facility] Heart rate 72 bpm 72 bpm [facility] Body temperature 98.7 Fahrenheit 98.7 Fahrenhei t [facility] Diastolic blood 80 mmHg 80 mmHg [facility] Systolic blood 114 mmHg 114 mmHg [facility] Respiratory rate 18 bpm 18 bpm [facility] Heart rate 91 bpm 91 bpm [facility] Body temperature 97.6 Fahrenheit 97.6 Fahrenhei t [facility] Diastolic blood 79 mmHg 79 mmHg [facility] Systolic blood 119 mmHg 119 mmHg [facility] Respiratory rate 18 bpm 18 bpm [facility] Heart rate 77 bpm 77 bpm [facility] Body temperature 97.6 Fahrenheit 97.6 Fahrenhei t [facility] Diastolic blood 73 mmHg 73 mmHg [facility] [facility] Systolic blood 111 mmHg 111 mmHg [facility] Respiratory rate 16 bpm 16 bpm [facility] Heart rate 80 bpm 80 bpm [facility] Diastolic blood 74 mmHg 74 mmHg [facility] Systolic blood 118 mmHg 118 mmHg [facility] Respiratory rate 18 bpm 18 bpm [facility] Heart rate 88 bpm 88 bpm [facility] Body [facility] 98.1 [facility] 18 bpm 18 bpm [facility] Heart rate 76 bpm 76 bpm [facility] Body temperature 98.1 Fahrenheit 98.1 [facility] Diastolic blood 78 mmHg 78 mmHg [facility] Systolic blood 117 mmHg 117 mmHg [facility] Diastolic blood 70 mmHg 70 mmHg [facility] Systolic blood 101 mmHg 101 mmHg [facility] Heart rate 87 bpm 87 bpm [facility] Diastolic blood 75 mmHg 75 mmHg [facility] Systolic blood 107 mmHg 107 mmHg [facility] Respiratory rate 18 bpm 18 bpm [facility] Heart rate 81 bpm 81 bpm [facility] Diastolic blood 67 mm[Hg] 67 mm[Hg] [facility] Systolic blood 114 mm[Hg] 114 mm[Hg] [facility] Respiratory rate 16 /min 16 /min [facility] Heart rate 74 /min 74 /min [facility] Body temperature 36.91277 Linda 36.21515 Linda [facility] Body temperature 98.2 [degF] 98.2 [degF] [facility] Body mass index 28.0 kg/m2 28.0 kg/m2 [facility] (BMI) [Ratio] Hospital Body weight 180.36 [lb_av] 180.36 [lb_av] [facility] Diastolic blood 71 mm[Hg] 71 mm[Hg] [facility] Systolic blood 124 mm[Hg] 124 mm[Hg] [facility] Respiratory rate 18 /min 18 /min [facility] Heart rate 81 /min 81 /min [facility] Body temperature 37.39333 Linda 37.98118 Linda [facility] Body temperature 98.6 [degF] 98.6 [degF] [facility] Body mass index 28.0 kg/m2 28.0 kg/m2 [facility] (BMI) [Ratio] Hospital Body weight 180.38 [lb_av] 180.38 [lb_av] [facility] Body temperature 36.586287 Linda 36.878828 Linda [facility] Respiratory rate 18 /min 18 /min [facility] Oxygen 95 % 95 % [facility] saturation in Medical Arterial blood Center by Pulse oximetry Heart rate 81 /min 81 /min [facility] Diastolic blood 67 mm[Hg] 67 mm[Hg] [facility] Center Systolic blood 130 mm[Hg] 130 mm[Hg] [facility] Body weight 65.724165 kg 65.966339 kg [facility] Body temperature 36.224701 Linda 36.480751 Linda [facility] Respiratory rate 17 /min 17 /min [facility] Oxygen 96 % 96 % [facility] saturation in Medical Arterial blood Center by Pulse oximetry Heart rate 88 /min 88 /min [facility] Diastolic blood 88 mm[Hg] 88 mm[Hg] [facility] Center Systolic blood 141 mm[Hg] 141 mm[Hg] [facility] Body temperature 37.987509 Linda 37.565996 Linda [facility] Respiratory rate 17 /min 17 /min [facility] Oxygen 97 % 97 % [facility] saturation in Medical Arterial blood Center by Pulse oximetry Heart rate 98 /min 98 /min [facility] Diastolic blood 88 mm[Hg] 88 mm[Hg] [facility] Center Systolic blood 152 mm[Hg] 152 mm[Hg] [facility] Body temperature 36.420482 Linda 36.515575 Linda [facility] Respiratory rate 18 /min 18 /min [facility] Oxygen 99 % 99 % [place] saturation in Medical Arterial blood Center by Pulse oximetry Heart rate 88 /min 88 /min [facility] Diastolic blood 79 mm[Hg] 79 mm[Hg] [facility] Center Systolic blood 144 mm[Hg] 144 mm[Hg] [facility] Body weight 80.854720 kg 80.579041 kg [facility] Body temperature 36.958188 Linda 36.956361 Linda [facility] Respiratory rate 19 /min 19 /min [facility] Oxygen 99 % 99 % [place] saturation in Medical Arterial blood Center by Pulse oximetry Heart rate 101 /min 101 /min [facility] Body height 1767.209017 cm 1767.598460 cm [facility] Diastolic blood 101 mm[Hg] 101 mm[Hg] [facility] Systolic blood 161 mm[Hg] 161 mm[Hg] [facility] Body mass index 0.2 kg/m2 0.2 kg/m2 [facility] (BMI) [Ratio] Medical Center Body temperature 36.829216 Linda 36.025226 Linda [facility] Respiratory rate 18 /min 18 /min [facility] Deprecated 97 % 97 % [facility] Oxygen Medical saturation in Center Capillary blood by Oximetry Heart rate 74 /min 74 /min [facility] Systolic blood 74 mm[Hg] 74 mm[Hg] [facility] Diastolic blood 147 mm[Hg] 147 mm[Hg] [facility] Body temperature 36.704673 Linda 36.870788 Linda [facility] Respiratory rate 18 /min 18 /min [facility] Deprecated 96 % 96 % [facility] Oxygen Medical saturation in Center Capillary blood by Oximetry Heart rate 78 /min 78 /min [facility] Systolic blood 75 mm[Hg] 75 mm[Hg] [facility] Diastolic blood 137 mm[Hg] 137 mm[Hg] [facility] Body temperature 36.606039 Linda 36.354000 Linda [facility] Respiratory rate 15 /min 15 /min [facility] Deprecated 100 % 100 % [facility] Oxygen Medical saturation in Center Capillary blood by Oximetry Heart rate 85 /min 85 /min [facility] Systolic blood 90 mm[Hg] 90 mm[Hg] [facility] Diastolic blood 137 mm[Hg] 137 mm[Hg] [facility] Body temperature 36.708830 Linda 36.266471 Linda [facility] Respiratory rate 18 /min 18 /min [facility] Deprecated 97 % 97 % [place] Oxygen Medical saturation in Center Capillary blood by Oximetry Heart rate 78 /min 78 /min [facility] Systolic blood 81 mm[Hg] 81 mm[Hg] [facility] Diastolic blood 127 mm[Hg] 127 mm[Hg] [facility] Body temperature 36.309511 Linda 36.172068 Linda [facility] Respiratory rate 20 /min 20 /min [facility] Deprecated 99 % 99 % [facility] Oxygen Medical saturation in Center Capillary blood by Oximetry Heart rate 89 /min 89 /min [facility] Systolic blood 89 mm[Hg] 89 mm[Hg] [facility] Diastolic blood 145 mm[Hg] 145 mm[Hg] [facility] Body temperature 36.198774 Linda 36.155462 Linda [facility] Respiratory rate 19 /min 19 /min [facility] Deprecated 100 % 100 % [facility] Oxygen Medical saturation in Center Capillary blood by Oximetry Heart rate 102 /min 102 /min [facility] Systolic blood 99 mm[Hg] 99 mm[Hg] [facility] Diastolic blood 149 mm[Hg] 149 mm[Hg] [facility] Body temperature 36.246787 Linda 36.984187 Linda [facility] Respiratory rate 20 /min 20 /min [facility] Deprecated 98 % 98 % [facility] Oxygen Medical saturation in Center Capillary blood by Oximetry Heart rate 115 /min 115 /min [facility] Systolic blood 95 mm[Hg] 95 mm[Hg] [facility] Diastolic blood 154 mm[Hg] 154 mm[Hg] [facility] Patient Treatment Plan of Care Planned Activity Planned Date Details Description Data Source (s) DuoNeb 0.5/3mg/3mL 03/11/2019 12:07:07 [facility] Prednisone 20 MG Oral [facility] 200 ACTUAT Albuterol [facility] 0.09 MG/ACTUAT Metered Cente r Dose Inhaler Prednisone 20 MG Oral [facility] Prednisone 20 MG Oral [facility] 120 ACTUAT Budesonide [facility] 0.16 MG/ACTUAT / Center formoterol fumarate 0.0045 MG/ACTUAT Metered Dose Inhaler [Symbicort] 200 ACTUAT Albuterol [facility] 0.09 MG/ACTUAT Metered Cente r Dose Inhaler [Proventil] Prednisone 20 MG Oral [facility] 200 ACTUAT Albuterol [facility] 0.09 MG/ACTUAT Metered Cente r Dose Inhaler [Proventil]
--- NOTE | 2020-01-06 08:38 | BHS.RME ---
Substance Use & Tx History - Substance Use History Alcohol Substance amount: 6-10 beers, 12 oz ea Frequency of use: Daily Substance route: Oral Date of Last Use: 01/05/20 (First use age 17. No seizures. Blackouts, last was weeks ago. 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 OD x 1, one year ago. No Narcan at home) Nicotine Substance amount: one pack Frequency of use: Daily Substance route: Smoking Date of Last Use: 01/06/20 (first use age 21 y) - Last Treatment Date of last treatment: November 2018 left AMA Treatment type: Substance Use Disorder (AURA) Where was last treatment: Detox Physical/Psych/Mental Status - Behavior General Behavior: Decreased activity Eye Contact: Normal - Cooperativeness Cooperativeness: Cooperative - Thinking Thought Processes: Tight Thought content: Future oriented - Physical Health Problems Is patient presently having any pain?: No Does patient presently have any injuries (include location): No Does patient currently have a fever: No CIWA Nausea/Vomitin-Mild Nausea/No Vomiting Muscle Tremors: 4-Moderate,w/Arms Extend Anxiety: 3 Agitation: 2 Paroxysmal Sweats: 1-Minimal Palms Moist Orientation: 0-Oriented Tacttile Disturbances: 0-None Auditory Disturbances: 0-None Visual Disturbances: 2-Mild Sensitivity Headache: 0-None Present CIWA-Ar Total Score: 13
--- NOTE | 2020-01-06 08:43 | HP ---
COWS - Scale Resting Pulse: 0= NC 80 or Below Sweatin= Chills/Flushing Restless Observation: 1= Difficult to Sit Still Pupil Size: 0= Normal to Room Light Bone or Joint Aches: 1= Mild Discomfort Runny Nose/ Eye Tearin= Nasal Congestion GI Upset > 30mins: 1= Stomach Cramp Tremor Observation: 1= Tremor [place], Not Seen Yawning Observation: 0= None Anxiety or Irritability: 1=Feels Anxious/Irritable Goose Flesh Skin: 0=Smooth Skin COWS Score: 7 CIWA Score Nausea/Vomitin-Mild Nausea/No Vomiting Muscle Tremors: 4-Moderate,w/Arms Extend Anxiety: 3 Agitation: 2 Paroxysmal Sweats: 1-Minimal Palms Moist Orientation: 0-Oriented Tacttile Disturbances: 0-None Auditory Disturbances: 0-None Visual Disturbances: 2-Mild Sensitivity Headache: 0-None Present CIWA-Ar Total Score: 13 - Admission Criteria OASAS Guidelines: Admission for Medically Managed Detox: Requires at least one of the followin. CIWA greater than 12 2. Seizures within the past 24 hours 3. Delirium tremens within the past 24 hours 4. Hallucinations within the past 24 hours 5. Acute intervention needed for co occurring medical disorder 6. Acute intervention needed for co occurring psychiatric disorder 7. Severe withdrawal that cannot be handled at a lower level of care (continued vomiting, continued diarrhea, abnormal vital signs) requiring intravenous medication and/or fluids 8. Admitting History and Physical - Admission Chief Complaint: Mr. Nicolas is a 49 yo man who presents to [facility] requesting detox admission for alcohol and heroin use. History of Present Illness: Mr. Nicolas is a 49 yo man who presents to [facility] requesting detox admission for alcohol and heroin use. He was last here in November 2018, left AMA after 3 days. PMH: COPD, Asthma (multiple ED visits noted), recent dx of cataracts PSH/Psych/Legal: none SOC: lives with his mother Substance Use History Alcohol Substance amount: 6-10 beers, 12 oz ea Frequency of use: Daily Substance route: Oral Date of Last Use: 01/05/20 (First use age 17. No seizures. Blackouts, last was weeks ago. 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 OD x 1, one year ago. No Narcan at home) Nicotine Substance amount: one pack Frequency of use: Daily Substance route: Smoking Date of Last Use: 01/06/20 (first use age 21 y) Cocaine: one gram/month, began age 32, last use 2 days ago - Last Treatment Date of last treatment: November 2018 left AMA Treatment type: Substance Use Disorder (AURA) Where was last treatment: Detox Meets criteria for admission, CIWA 13. COWS 7, just used a few hours ago and full extent of withdrawal not seen. Pt at high risk for overdose. History Source: Patient Limitations to Obtaining History: No Limitations - Past Medical History Cardiovascular: Yes: HTN Pulmonary: Yes: Asthma, Bronchitis, COPD, Pneumonia Psych: Yes: Addictions (heroin) - Past Surgical History Past Surgical History: Yes: None - Smoking History Smoking history: Current every day smoker Have you smoked in the past 12 months: Yes Aproximately how many cigarettes per day: 12 If you are a former smoker, when did you quit?: 2017 - Alcohol/Substance Use Hx Alcohol Use: Yes History of Substance Use: reports: Heroin - Social History ADL: Independent Occupation: Unemployed History of Recent Travel: No Admission [facility] Allergies/Adverse Reactions: Allergies Allergy/AdvReac Type Severity Reaction Status Date / Time No Known Allergies Allergy Verified 01/06/20 09:00 Exam Limitations: No Limitations - Ebola screening Have you traveled outside of the country in the last 21 days: No Have you been sick,other than usual withdrawal symptoms: No Do you have a fever: No - Review of Systems Constitutional: No Symptoms Reported EENT: reports: Blurred Vision (bilateral cataracts) Respiratory: reports: Wheezing Cardiac: reports: No Symptoms Reported GI: reports: Nausea Musculoskeletal: reports: Other (left knee abrasion, fell one week ago) Integumentary: reports: No Symptoms Reported Neuro: reports: No Symptoms reported Endocrine: reports: No Symptoms Reported Hematology: reports: No Symptoms Reported Psychiatric: reports: Anxious Patient History - Patient Medical History Hx Anemia: No Hx Asthma: Yes Hx Chronic Obstructive Pulmonary Disease (COPD): No Hx Cancer: No Hx Cardiac Disorders: No Hx Congestive Heart Failure: No Hx Hypertension: Yes Hx Hypercholesterolemia: No Hx Pacemaker: No HX Cerebrovascular Accident: No Hx Seizures: No Hx Dementia: No Hx Diabetes: No Hx Gastrointestinal Disorders: No Hx Liver Disease: No Hx Genitourinary Disorders: No Hx Sexually Transmitted Disorders: No Hx Renal Disease (ESRD): No Hx Thyroid Disease: No Hx Human Immunodeficiency Virus (HIV): No Hx Hepatitis C: No Hx Depression: No Hx Suicide Attempt: No Hx Bipolar Disorder: No Hx Schizophrenia: No - Patient Surgical History Past Surgical History: No Hx Neurologic Surgery: No Hx Cataract Extraction: No Hx Cardiac Surgery: No Hx Lung Surgery: No Hx Breast Surgery: No Hx Breast Biopsy: No Hx Abdominal Surgery: No Hx Appendectomy: No Hx Cholecystectomy: No Hx Genitourinary Surgery: No Hx Section: No Hx Orthopedic Surgery: No Hx Hysterectomy: No Anesthesia Reaction: No - PPD History Date: 09/18/18 Results: 0 mm - Smoking Cessation Smoking history: Current every day smoker Have you smoked in the past 12 months: Yes Aproximately how many cigarettes per day: 20 If you are a former smoker, when did you quit?: 2017 Cigars Per Day: 0 Hx Chewing Tobacco Use: No Initiated information on smoking cessation: Yes 'Breaking Loose' booklet given: 01/06/20 - Substances abused Alcohol Substance route: Oral Frequency: Daily Amount used: 6-10 BEERS/DAY Age of first use: 17 Date of last use: 01/05/20 Heroin Substance route: Inhalation Frequency: Daily Amount used: 10-20 BAGS/DAY Age of first use: 36 Date of last use: 01/06/20 Admission Physical Exam [facility] - Vital Signs Vital Signs: Vitals 121/70, 84, 17, 97.7 - Physical General Appearance: Yes: No Apparent Distress, Nourished, Anxious HEENTM: Yes: EOMI, Hearing grossly Normal, Normocephalic, Normal Voice Respiratory: Yes: No Respiratory Distress, No Accessory Muscle Use, Wheezing Neck: Yes: Within Normal Limits, Supple Breast: Yes: Breast Exam Deferred Cardiology: Yes: Regular Rhythm, Regular Rate Abdominal: Yes: Non Tender, Flat, Soft, Increased Bowel Sounds Genitourinary: Yes: Within Normal Limits Back: Yes: Normal Inspection Musculoskeletal: Yes: Gait Steady Extremities: Yes: Normal Inspection, Non-Tender Neurological: Yes: Alert, Normal Response Integumentary: Yes: Normal Color, Dry, Warm, Other (abrasion, superficial left knee, no evidence of infection) - Diagnostic (1) History of fall Current Visit: Yes Status: Acute Comment: 1. pt fell about one week ago 2. fall precautions (2) Opioid dependence with withdrawal Current Visit: No Status: Acute Comment: 1. Admit detox 2. Methadone protocol 3. EKG (3) Alcohol dependence with uncomplicated withdrawal Current Visit: Yes Status: Acute Comment: 1. Detox, Librium protocol 2. Routine labs (4) Asthma Current Visit: No Status: Chronic Qualifiers: Comment: 1. pt wheezing now, will give tx of albuterol now (5) Cocaine dependence, uncomplicated Current Visit: No Status: Chronic Comment: 1. substance abuse education (6) Nicotine dependence Current Visit: No Status: Chronic Qualifiers: Nicotine product type: cigarettes Substance use status: uncomplicated Qualified Code(s): F17.210 - Nicotine dependence, cigarettes, uncomplicated Comment: 1. Nicotine replacement therapy Cleared for Admission S - Detox or Rehab [facility] Level of Care: Medically Managed Detox Regimen/Protocol: Methadone/Librium Breathalyzer - Breathalyzer Breathalyzer: 0 Urine Drug Screen - Test Device Lot number: [id number] Expiration date: 07/22/21 - Control Is test valid?: Yes - Results Drug screen NEGATIVE: No Urine drug screen results: LIZBET-Cocaine, FEN-Fentanyl, MOP-Opiates Inpatient Rehab Admission - Rehab Decision to Admit Inpatient rehab admission?: No
[2020-01-06 08:55] VITALS: BMI 30.1
[2020-01-06] MEDS: ALBUTEROL SO4 HFA INHALER IH PRN (09:40)
[2020-01-06] MEDS ORDERED: MAGNESIUM CITRATE 300 ML BOTTLE PO PRN (09:44)
[2020-01-06] MEDS ORDERED: chlordiazePOXIDE HCL 25 MG CAPSULE PO PRN (09:44)
[2020-01-06] MEDS ORDERED: MAG HYDROX/AL HYDROX/SIMETH 30 ML UNIT-DOSE CUP PO PRN (09:44)
[2020-01-06] MEDS ORDERED: NICOTINE POLACRILEX 2 MG GUM BUC PRN (09:44)
[2020-01-06] MEDS ORDERED: METHOCARBAMOL 500 MG TABLET PO PRN (09:44)
[2020-01-06] MEDS ORDERED: MAGNESIUM HYDROX 2400MG/30ML ORAL SUSPENSION 30 ML CUP PO PRN (09:44)
[2020-01-06] MEDS ORDERED: BISMUTH SUBSALICYLATE 524 MG/30 ML UD PO PRN (09:44)
[2020-01-06] MEDS ORDERED: IBUPROFEN 400 MG TABLET (FP) PO PRN (09:44)
[2020-01-06] MEDS ORDERED: cloNIDine HCL 0.1 MG TABLET PO PRN (09:44)
[2020-01-06] MEDS ORDERED: ACETAMINOPHEN 325 MG TABLET (FP) PO PRN ×2 (09:44)
[2020-01-06] MEDS ORDERED: MENTHOL/PHENOL 1 EACH UD MM PRN (09:44)
[2020-01-06] MEDS ORDERED: ONDANSETRON *ODT* 4 MG TABLET SL PRN (09:44)
[2020-01-06] MEDS ORDERED: METHADONE HCL 10 MG TABLET (FOR DETOX USE ONLY) PO ONE (09:44)
--- OUTSIDE RECORDS SUMMARY | 2020-01-06 09:57 | XMS ---
:1970 [facility] Care Team Providers Name Role Phone Reymundo Verde MD Unavailable Unavailable MD Fernando Unavailable Unavailable SARAH DILLARD Unavailable Unavailable MD Marilia Unavailable Unavailable MD NATALIE Unavailable Unavailable ED STAFF PHYSICIAN Unavailable Unavailable MD IAN Unavailable Unavailable EMERGENCY SERVICE, X Unavailable Unavailable ED STAFF PHYSICIAN Unavailable Unavailable [facility] Unavailable Unavailable MD Guevara Unavailable Unavailable ED [...] is protected by Article 27-F of the [facility] Public Health law. If you continue you may haveaccess to information: Regarding HIV / AIDS; Provided by facilities licensed or operated by the [facility] Office of Mental Health; or Provided by the [facility] Office for People With Developmental Disabilities. If such information is present, then the following [facility] mandated warning applies: This information has [...] law may result in a fine or alf sentence or both. A general authorization for the release of medical or other information is NOT sufficient authorization for further disclosure. Allergies and Adverse Reactions Type Description Substance Reaction Status Data Source(s ) Drug allergy No Known Allergies No Known Allergies none [facility] Encounters Encounter Providers Location Date Indications Data Source(s ) Emergency Attender: YOLANDA ED H 09/21/2019 [facility] STAFF 04:35:00 PM EDT Medical C enter PHYSICIANAttender: - 09/21/2019 STAFF ED STAFF 06:39:00 PM EDT PHYSICIANAdmitter: [facility] ED STAFF PHYSICIAN Patient discharged. Emergency Attender: ED STAFF H 07/27/2019 04:09:00 PM [facility] PHYSICIANAttender: [facility] ED EDT - 07/27/2019 [facility] STAFF PHYSICIANAttender: STAFF 04:44:00 PM EDT ED STAFF PHYSICIANAdmitter: ED STAFF PHYSICIANReferrer: STAFF ED STAFF PHYSICIAN Patient discharged. Emergency Attender: [facility] ED STAFF 07/27/2019 12:15:00 PM [facility] PHYSICIANAttender: STAFF ED EDT - 07/27/2019 [facility] STAFF PHYSICIANAdmitter: YOLANDA 01:35:00 PM EDT ED STAFF PHYSICIAN Patient discharged. Outpatient Attender: [id number] [facility] 06/03/2019 12:25:33 PM [facility] ([facility]) Patient admitted. Emergency Attender: NISHANT 03/11/2019 11:34:00 [facility] CAROLAttender: EMERGENCY AM EST Health Care SERVICE, XAdmitter: SARAH Pastrana Emergency 11/07/2018 03:57:00 PM [facility] EDT [place] 11/07/2018 12:00:00 AM [facility] EDT - 02/22/2018 Center 12:00:00 AM EST Inpatient Attender: SALLY STV-3N 10/02/2018 05:42:00 PM [facility] LEMUSEZAdmitter: JOSE MIGUEL EDT - 10/16/2018 H osnatalie SOSA 10:31:00 PM EDT Patient admitted. Outpatient STV 10/02/2018 02:01:00 PM EDT - 019 [facility] 06:15:00 PM EDT Patient discharged. Emergency Attender: Del 10/02/2018 SUICIDE IDEATION Wh pema Waterman MDAttender: 05:34:00 AM EDT - [facility] Armani Marilia 10/02/2018 MDConsultant: Liv 01:35:00 PM EDT Fernando FORREST SUICIDE IDEATION AMB-EMPRESS Patient discharged. Emergency Attender: Reymundo 10/01/2018 11:25:00 ASTHMA W nayan Verde MD PM EDT - 10/02/2018 [facility] 04:27:00 AM EDT ASTHMA ARR-EMPRESS Patient discharged. Emergency H 09/21/2018 12:52:00 AM EDT [facility] Emergency H 09/14/2018 07:28:00 PM EDT [facility] Outpatient 08/19/2018 01:25:09 PM EDT [facility] Outpatient 08/19/2018 01:25:05 PM EDT [facility] Emergency H 05/30/2018 05:30:00 PM EST [facility] Emergency H 03/05/2018 12:00:00 AM [facility] Medications Medication Brand Start Product Dose Route [...] HFA 108 06/29/2016 999 UNK completed ProA [place] (90 Base) MCG/A 06:20:53 PM [place] EDT [facility] (90 Base ) MCG/ ACT Inha lati on Aero rhonda Solu tion INHA LE 1 TO 2 PUFF S EVER Y 4 TO 6 HOUR S NEED ED. Disp ense : 1 Prednisone 20 PredniSONE 06/29/2016 999 UNK completed Pred [place] MG Oral Tablet 20 MG Oral 06:20:53 PM MG [facility] PredniSONE 20 Tablet EDT [facility] Care MG Oral Tablet 20 Corpo ration MG Oral Tabl et TAKE 3 TABL ETS IN THE MORN ING. Disp ense : 12 Prednisone 20 PredniSONE 06/14/2015 999 UNK completed Pred [place] MG Oral Tablet 20 MG Oral 08:58:36 PM MG [facility] PredniSONE 20 Tablet EST [facility] Care MG Oral Tablet 20 Corpo ration MG Oral Tabl et 1 tab po BID x 4 days Disp ense : 8 Albuterol 06/14/2015 999 UNK completed Albu [place] Sulfate (2.5 08:58:[address] MG/3ML) EST [facility] Sulf Corporation ate (2.5 MG/3 ML) 0.08 3% [facility] Solu tion USE 1 UNIT DOSE IN [place] EVER Y 4 HOUR S NEED ED. Disp ense : 15 Albuterol Albuterol AERO 2 RESPIRAT completed [facility] RHONDA ORY [place] [facility] ([facility] Prednisone 20 Prednisone TABL 60 ORAL completed [facility] MG Oral Tablet ET mg [facility] Prednisone 20 Prednisone TABL 40 ORAL completed [place] MG Oral Tablet ET mg [facility] Prednisone 20 Prednisone TABL 60 ORAL completed [facility] MG Oral Tablet ET mg [facility] Prednisone 20 predniSONE 2 completed [facility] [...] AERO 2 RESPIRAT completed [facility] RHONDA ORY [place] SOLU ([facility] TION ION) 200 ACTUAT albuterol 2 completed [facility] Albuterol 0.09 sulfate enti Mirella sephs [...] breath 28 ACTUAT tiotropium- 999 inhalati completed [facility] olodaterol olodaterol MG on ropi Cou nty 0.0025 [facility] MG/ACTUAT / loda Corporat ion tiotropium tero 0.0025 l MG/ACTUAT Metered Dose Inhaler [Stiolto] tiotropium-olod aterol Prednisone 20 predniSONE 2 completed Saint MG Oral Tablet 20 mg B[facility] predniSONE 20 Tablet, Med ical mg Tablet, Ordered By: Ce nter Ordered By: Beau Lincoln Dr.Directions: 2 tablet oral ns: 2 daily tablet oral daily 200 ACTUAT albuterol 999 inhalati completed [facility] Albuterol 0.09 MG on tero Count y [...] completed [facility] MG Oral Tablet ET mg [facility] Albuterol Albuterol AERO 2 RESPIRAT completed [facility] ([facility]) Prednisone 20 predniSONE 2 completed [facility] MG Oral Tablet 20 mg [facility] predniSONE 20 Tablet, Med ical mg Tablet, Ordered By: Beth nter Ordered By: Beau Lincoln, MDDirections: 2 MDDirection tablet oral s: 2 tablet daily oral daily Prednisone 20 predniSONE 2 completed [facility] MG Oral Tablet 20 mg B[facility]in [facility] predniSONE 20 TabletDirec Medical mg tions: 2 Center TabletDirection tablet oral s: 2 tablet daily oral daily 200 ACTUAT albuterol 2 completed [facility] Albuterol 0.09 sulfate 90 Dasia MG/ACTUAT mcg HFA Medical Metered Dose Aerosol Cent er Inhaler Inhaler, albuterol Ordered By: sulfate 90 mcg Sena HFA Aerosol Green, Inhaler, PADirection Ordered By: s: 2 puff Sena [place], by PADirections: 2 inhalation puff by four times inhalation four daily PRN times daily PRN shortness shortness of of breath breath brclomethasone brclomethas 999 inhaler discontinued brcl [place] one MG [facility] Albuterol Albuterol AERO 2 RESPIRAT completed [facility] ([facility]) Insurance Providers Payer name Policy type Policy ID Covered Covered republican's Policy P judson / Coverage republican ID relationship to [place] Inf ormation type sarmiento [facility] MEDICAID [id number] SP [id number] O [facility] MEDICAID [id number] SP [id number] [place] MEDICAID [id number] SP [id number] PENDING [id number] EXCHANGE SELF PAY SP INSURANCE [facility] O [id number] 01 [id number] MEDICAID [id number] SP [id number] UNK [id number] [facility] MEDICAID [id number] SP [id number] [place]MO [place] [id number] SP [id number] 600 HEALTH-MVP SELF PAY 0000 Self 0000 MEDICAID INP [id number] Self [id number] [facility] [id number] Self [id number] [facility] [id number] PT [id number] [facility] [id number] PT [id number] [facility] [id number] SP [id number] HEALTH-MVP MVP/HHP O [id number] 01 [id number] Problems, Conditions, and Diagnoses Code Display Name Description Problem Type Effective Data Sour ce(s) Dates 820521888 Sedative, Sedative, Complaint 10/02/2018 [facility] hypnotic AND/OR hypnotic AND/OR 12:00:00 PM Hos pital anxiolytic-relate anxiolytic-relate EDT d disorder d disorder (disorder) 75601549 Cocaine abuse Cocaine abuse Complaint 10/02/2018 [facility] ([facility] 12:00:00 PM Hospital EDT [id number] Opioid abuse Opioid abuse Complaint 10/02/2018 [facility] (disorder) 12:00:00 PM Hospital EDT 34094795 Depressive Depressive Complaint 10/02/2018 [facility] disorder disorder 12:00:00 PM Hospital (disorder) EDT 333579973 Sedative, Sedative, Complaint 10/02/2018 [facility] hypnotic AND/OR hypnotic AND/OR 12:00:00 PM Hos pital anxiolytic-relate anxiolytic-relate EDT d disorder d disorder (disorder) [id number] Cocaine abuse Cocaine abuse Complaint 10/02/2018 [facility] ([facility]order) 12:00:00 PM Hospital EDT 7955826 Opioid abuse Opioid abuse Complaint 10/02/2018 [facility] (disorder) 12:00:00 PM Hospital EDT 29831631 Depressive Depressive Complaint 10/02/2018 [facility] disorder disorder 12:00:00 PM Hospital (disorder) EDT 580304471 Sedative, Sedative, Complaint 10/02/2018 [facility] hypnotic AND/OR hypnotic AND/OR 12:00:00 PM Hos pital anxiolytic-relate anxiolytic-relate EDT d disorder d disorder (disorder) [id number] Cocaine abuse Cocaine abuse Complaint 10/02/2018 [facility] (disorder) 12:00:00 PM Hospital EDT 0208881 Opioid abuse Opioid abuse Complaint 10/02/2018 [facility] (disorder) 12:00:00 PM Hospital EDT 71579078 Depressive Depressive Complaint 10/02/2018 [facility] [...] UNCOMPLICATED EDT R06.00 Dyspnea, DYSPNEA, Diagnosis 09/21/2019 [facility] unspecified UNSPECIFIED 04:35:[address] EDT F17.210 Nicotine NICOTINE Diagnosis 07/27/2019 [facility] dependence, DEPENDENCE, 04:09:[address] cigarettes, CIGARETTES, EDT uncomplicated UNCOMPLICATED F19.10 Other OTHER Diagnosis 07/27/2019 [facility] psychoactive PSYCHOACTIVE 04:09:00 PM Medical C enter substance abuse, SUBSTANCE ABUSE, EDT uncomplicated UNCOMPLICATED F91.9 Conduct disorder, CONDUCT DISORDER, Diagnosis 07/27/2019 [facility] unspecified UNSPECIFIED 04:09:[address] EDT J45.909 Unspecified UNSPECIFIED Diagnosis 03/11/2019 [place] asthma, ASTHMA, 11:34:00 AM [facility] R06.2 Wheezing WHEEZING Diagnosis 03/11/2019 [place] 11:34:00 AM [facility] R53.1 Weakness WEAKNESS Diagnosis 11/07/2018 [facility] 03:57:00 PM Medical Cente r EDT F32.9 Major depressive Major depressive Diagnosis 10/16/2018 [facility] disorder, single disorder, single 04:06:00 PM H ospital episode, episode, EDT unspecified unspecified J45.909 Unspecified J45.909 Diagnosis 10/02/2018 [place] asthma, 05:53:00 AM Hospital uncomplicated EDT G89.29 Other chronic G89.29 Diagnosis 10/02/2018 [place] pain 05:53:00 AM Hospital EDT R45.851 Suicidal R45.851 Diagnosis 10/02/2018 [place] ideations 05:53:00 AM Hospital EDT 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 10/02/2018 [place] disorder, 05:53:00 AM Hospital unspecified EDT F14.10 Cocaine abuse, F14.10 Diagnosis 10/02/2018 [place] uncomplicated 05:53:00 AM Hospital EDT F11.10 Opioid abuse, F11.10 Diagnosis 10/02/2018 [place] uncomplicated 05:53:00 AM Hospital EDT F32.9 Major depressive F32.9 Diagnosis 10/02/[address] [place] disorder, single 05:53:00 AM Hospita l episode, EDT unspecified J45.901 Unspecified J45.901 Diagnosis 10/01/2018 [place] asthma with 11:49:00 PM Hospital (acute) EDT exacerbation Z72.0 Tobacco use TOBACCO USE Diagnosis 09/21/2018 [place] 12:52:00 AM [facility] Cent[facility] r EDT J98.01 Acute ACUTE Diagnosis 09/21/2018 [facility] bronchospasm BRONCHOSPASM 12:52:00 AM Medical C enter EDT R07.9 Chest pain, CHEST PAIN, Diagnosis 09/21/2018 [place] unspecified UNSPECIFIED 12:52:[address] EDT R06.2 Wheezing WHEEZING Diagnosis 05/30/2018 [facility] 05:30:00 PM Medical Cente r EST Results ID Date Data Source [id number] 09/07/2019 12:25:00 AM EDT [facility] Name Value Range Interpretation Description Data Sup porting Code Source(s) Document(s ) SARS [facility] CORONAVIRUS 2 RNA This lab was ordered by [facility] and reported by [facility]. ID Date Data Source [id number] 08/25/2019 10:40:00 AM EDT [facility] Name Value Range Interpretation Description Data Sup porting Code Source(s) Document(s ) SARS [facility] CORONAVIRUS 2 RNA This lab was ordered by [facility] and reported by [facility]. ID Date Data Source [id number] 10/02/2018 06:04:00 AM EDT [facility] CUT-OFF >= 25 NG/ML.THE FINDINGS OF [...] rce(s) Supporting Document(s ) PCP (UR) NEGATIVE [facility] ID Date Data Source [id number] 10/02/2018 06:04:00 AM EDT [facility] CUT-OFF >= 50 NG/ML. Name Value Range Interpretation Code Description Data Katya rce(s) Supporting Document(s ) THC (UR) NEGATIVE [facility] ID Date Data Source [id number] 10/02/2018 06:04:00 AM EDT [facility] CUT-OFF >= 300 NG/ML. Name Value Range Interpretation Description Data Sup porting Code Source(s) Document(s ) OPIATES (UR) POSITIVE [facility] ID Date Data Source [id number] 10/02/2018 06:04:00 AM EDT [facility] CUT-OFF >= 300 NG/ML. Name Value Range Interpretation Description Data Sup porting Code Source(s) Document(s ) COCAINE (UR) POSITIVE [facility] ID Date Data Source [id number] 10/02/2018 06:04:00 AM EDT [facility] CUT-OFF >= 200 NG/ML. Name Value Range Interpretation Description Data Sup porting Code Source(s) Document(s ) BENZODIAZEPINES POSITIVE [place] (UR) [place] [facility] ID Date Data Source [id number] 10/02/2018 06:04:00 AM EDT [facility] CUT-OFF >= 200 NG/ML. Name Value Range Interpretation Description Data Sup porting Code Source(s) Document(s ) BARBITURATES NEGATIVE [place] (UR) Hospital ID Date Data Source [id number] 10/02/2018 06:04:00 AM [facility] CUT-OFF >= 1000 NG/ML. Name Value Range Interpretation Description Data Sup porting Code Source(s) Document(s ) AMPHETAMINES NEGATIVE [place] (UR) Hospital ID Date Data Source [id number] 10/02/2018 06:04:00 AM [facility] REFERENCE RANGES: NONE DETECTED <20 MG/DL NONE TO MILD EUPHORIA 20-49 MG/DL MILD EUPHORIA 50-99 MG/DL MODERATE EUPHORIA 100-149 MG/DL INTOXICATION 150-300 MG/DL Name Value Range Interpretation Description Data Sup porting Code Source(s) Document(s ) Ethanol < 20 [place] [Mass/volume mg/dL Hospital ] in Serum or Plasma ID Date Data Source [id number] 10/02/2018 06:04:00 AM [facility] TEST RESULT IS A TOTAL TRICYCLIC [...] Code Source(s) Document(s ) TRICYCLIC < 80 [place] ANTIDEPRESSANT ng/mL Hospital ID Date Data Source [id number] 10/02/2018 06:04:00 AM [facility] REFERENCE RANGES: ANALGESIC: 0.0 - 10.0 MG/DL. ARTHRITIC THERAPY: 15.0 - 30.0 MG/DL. Name Value Range Interpretation Description Data Sup porting Code Source(s) Document(s ) Salicylates < 3.0 [place] [Mass/volume] mg/dL Hospital in Serum or Plasma ID Date Data Source [id number] 10/02/2018 06:04:00 AM T [facility] THERAPEUTIC RANGE: 10.0-30.0 UG/MLTOXIC RANGE: 4 HRS AFTER INGESTION >150 UG/ML 12 HRS AFTER INGESTION >35 UG/ML Name Value Range Interpretation Description Data Sup porting Code Source(s) Document(s ) ACETAMINOPHEN < 10.0 [place] ug/mL Hospital ID Date Data Source [id number] 10/02/2018 06:04:00 AM EDT [facility] Name Value Range Interpretation Code Description Data Katya rce(s) Supporting Document(s ) Lipase 21 U/L [place] [Enzymatic Hospital activity/vo lume] in Serum or Plasma ID Date Data Source [id number] 10/02/2018 06:04:00 AM EDT [facility] Name Value Range Interpretation Description Data Sup porting Code Source(s) Document(s ) Aspartate 12 U/L [place] aminotransferase [place] [Enzymatic Hospital activity/volume] in Serum or Plasma ID Date Data Source [id number] 10/02/2018 06:04:00 AM EDT [facility] Name Value Range Interpretation Description Data Sup porting Code Source(s) Document(s ) Alanine 14 U/L [place] aminotransferase [place] [Enzymatic Hospital activity/volume] in Serum or Plasma ID Date Data Source [id number] 10/02/2018 06:04:00 AM EDT [facility] Name Value Range Interpretation Description Data Sup porting Code Source(s) Document(s ) Alkaline 79 U/L [place] phosphatase Hospital [Enzymatic activity/volume ] in Serum or Plasma ID Date Data Source [id number] 10/02/2018 06:04:00 AM EDT [facility] Name Value Range Interpretation Description Data Sup porting Code Source(s) Document(s ) Bilirubin.t 0.3 mg/dL [facility] [Mass/volum e] in Serum or Plasma ID Date Data Source [id number] 10/02/2018 06:04:00 AM EDT [facility] Name Value Range Interpretation Code Description Data Katya rce(s) Supporting Document(s ) Albumin/Glob 1.8 [place] ulin [Mass Hospital Ratio] in Serum or Plasma ID Date Data Source [id number] 10/02/2018 06:04:00 AM EDT [facility] Name Value Range Interpretation Description Data Sup porting Code Source(s) Document(s ) Albumin 4.4 g/dL [place] [Mass/volume Hospital ] in Serum or Plasma ID Date Data Source [id number] 10/02/2018 06:04:00 AM EDT [facility] Name Value Range Interpretation Description Data Sup porting Code Source(s) Document(s ) Protein 6.9 g/dL [place] [Mass/volume Hospital ] in Serum or Plasma ID Date Data Source [id number] 10/02/2018 06:04:00 AM EDT [facility] Name Value Range Interpretation Description Data Sup porting Code Source(s) Document(s ) Calcium 9.1 mg/dL [place] [Mass/volume Hospital ] in Serum or Plasma ID Date Data Source [id number] 10/02/2018 06:04:00 AM EDT [facility] Name Value Range Interpretation Code Description Data Katya rce(s) Supporting Document(s ) Urea 17.5 [place] nitrogen/Cre Hospital atinine [Mass Ratio] in Serum or Plasma ID Date Data Source [id number] 10/02/2018 06:04:00 AM EDT [facility] Name Value Range Interpretation Description Data Sup porting Code Source(s) Document(s ) Creatinine 0.8 mg/dL [place] [Mass/volume] Hospital in Serum or Plasma ID Date Data Source [id number] 10/02/2018 06:04:00 AM EDT [facility] Name Value Range Interpretation Description Data Sup porting Code Source(s) Document(s ) Urea 14 mg/dL [facility] Hospital [Mass/volume ] in Serum or Plasma ID Date Data Source [id number] 10/02/2018 06:04:00 AM EDT [facility] Name Value Range Interpretation Code Description Data Katya rce(s) Supporting Document(s ) Anion gap in 13 [place] Serum or [facility] Plasma ID Date Data Source [id number] 10/02/2018 06:04:00 AM EDT [facility] Value Range Interpretation Description Data Sup porting Code Source(s) Document(s ) Carbon 22 mmol/L [place] dioxide, Hospital total [Moles/volu me] in Serum or Plasma ID Date Data Source [id number] 10/02/2018 06:04:00 AM EDT [facility] Name Value Range Interpretation Description Data Sup porting Code Source(s) Document(s ) Chloride 108 [place] [Moles/volum mmol/L Hospital e] in Serum or Plasma ID Date Data Source [id number] 10/02/2018 06:04:00 AM EDT [facility] Name Value Range Interpretation Description Data Sup porting Code Source(s) Document(s ) Potassium 4.3 [place] [Moles/volume mmol/L Hospital ] in Serum or Plasma ID Date Data Source [id number] 10/02/2018 06:04:00 AM EDT [facility] Name Value Range Interpretation Description Data Sup porting Code Source(s) Document(s ) Sodium 139 mmol/L [place] [Moles/volu Hospital me] in Serum or Plasma ID Date Data Source [id number] 10/02/2018 [facility] Interpretation Description Data Sup porting Code Source(s) Document(s ) Glucose 135 mg/dL [place] [Mass/volume Hospital ] in Serum or Plasma ID Date Data Source [id number] 10/02/2018 06:04:00 AM EDT [facility] Name Value Range Interpretation Code Description Data Aktya rce(s) Supporting Document(s ) URINE 0-5 [facility] CASTS ID Date Data Source [id number] 10/02/2018 06:04:00 AM EDT [facility] Name Value Range Interpretation Description Data Sup porting Code Source(s) Document(s ) Erythrocytes 0-3 [place] [#/area] in /[HPF] Hospital Urine sediment by Automated count ID Date Data Source [id number] 10/02[facility]2018 [facility] Interpretation Description Data Sup porting Code Source(s) Document(s ) Leukocytes 40-60 [place] [#/area] in /[HPF] Hospital Urine sediment by Automated count ID Date Data Source [id number] 10/02/2018 06:04:00 AM EDT [facility] Name Value Range Interpretation Description Data Sup porting Code Source(s) Document(s ) Leukocyte NEGATIVE [facility] [Presence] in Urine by Test strip ID Date Data Source [id number] 10/02/2018 [facility]:04[facility] Range Interpretation Description Data Sup porting Code Source(s) Document(s ) URINE NEGATIVE [facility] ID Date Data Source [id number] 10/02/2018 06:04:00 AM EDT [facility] [facility] Name Value Range Interpretation Description Data Sup porting Code Source(s) Document(s ) Erythrocytes NEGATIVE [place] [#/volume] in Hospital Urine by Test strip ID Date Data Source [id number] 10/02/2018 06:04:00 AM EDT [facility] Name Value Range Interpretation Code Description Data Katya rce(s) Supporting Document(s ) Bilirubin. NEGATIVE [place] total Hospital [Presence] in Urine by Test strip ID Date Data Source [id number] 10/02/2018 06:04:00 AM EDT [facility] Name Value Range Interpretation Description Data Sup porting Code Source(s) Document(s ) Urobilinogen 1.0 [facility] [Units/volume] mg/dL Hospital in Urine by Test strip ID Date Data Source [id number] 10/02/2018 06:04:00 AM EDT [facility] Name Value Range Interpretation Code Description Data Katya rce(s) Supporting Document(s ) Ketones 1+ [facility] [Mass/volume Hospital ] in Urine by Test strip ID Date Data Source [id number] 10/02/2018 06:04:00 AM EDT [facility] Name Value Range Interpretation Description Data Sup porting Code Source(s) Document(s ) Glucose NEGATIVE [facility] [Mass/volume Hospital ] in Urine by Test strip ID Date Data Source [id number] 10/02/2018 06:04:00 AM EDT [facility] Name Value Range Interpretation Code Description Data Katya rce(s) Supporting Document(s ) Protein 1+ [facility] [Presence] Hospital in Urine by Test strip ID Date Data Source [id number] 10/02/2018 06:04:00 AM EDT [facility] Name Value Range Interpretation Code Description Data Katya rce(s) Supporting Document(s ) pH of Urine 8.0 [facility] by Test Hospital strip ID Date Data Source [id number] 10/02/2018 06:04:00 AM EDT [facility] Name Value Range Interpretation Code Description Data Supporting Source(s) Document(s ) Specific 1.019 [facility] gravity of Hospital Urine by Test strip ID Date Data Source [id number] 10/02/2018 06:04:00 AM EDT [facility] Name Value Range Interpretation Description Data Sup porting Code Source(s) Document(s ) Clarity in Urine CLEAR [facility] by Refractometry Hospital automated ID Date Data Source [id number] 10/02/2018 06:04:00 AM EDT [facility] Name Value Range Interpretation Code Description Data Katya rce(s) Supporting Document(s ) Color of YELLOW [facility] Urine Hospital ID Date Data Source [id number] 10/02/2018 06:04:00 AM EDT [facility] Name Value Range Interpretation Description Data Sup porting Code Source(s) Document(s ) Platelet mean 9.6 fL [facility] volume Hospital [Entitic volume] in Blood by Automated count ID Date Data Source [id number] 10/02/2018 06:04:00 AM EDT [facility] Name Value Range Interpretation Description Data Sup porting Code Source(s) Document(s ) Platelets 323 [facility] [#/volume] in 10*3/uL Hospital Blood by Automated count ID Date Data Source [id number] 10/02/2018 06:04:00 AM EDT [facility] Name Value Range Interpretation Description Data Sup porting Code Source(s) Document(s ) Erythrocyte 13.9 % [facility] distribution Hospital width [Ratio] by Automated count ID Date Data Source [id number] 10/02/2018 06:04:[address] [facility] Value Range Interpretation Description Data Sup porting Code Source(s) Document(s ) Erythrocyte mean 32.7 [facility] corpuscular g/dL Hospital hemoglobin concentration [Mass/volume] by Automated count ID Date Data Source [id number] 10/02/2018 06:04:[address] [facility] Value Range Interpretation Description Data Sup porting Code Source(s) Document(s ) Erythrocyte 26.5 pg [facility] corpuscular hemoglobin [Entitic mass] by Automated count ID Date Data Source [id number] 10/02/2018 06:04:[address] [facility] Value Range Interpretation Description Data Sup porting Code Source(s) Document(s ) Erythrocyte 81.0 fL [facility] corpuscular volume [Entitic volume] by Automated count ID Date Data Source [id number] 10/02/2018 06:04:[address] [facility] Value Range Interpretation Description Data Sup porting Code Source(s) Document(s ) Hematocrit 34.9 % [facility] [Volume Hospital Fraction] of Blood by Automated count ID Date Data Source [id number] 10/02/2018 06:04:[address] [facility] Value Range Interpretation Description Data Sup porting Code Source(s) Document(s ) Hemoglobin 11.4 g/dL [facility] [Mass/volume] Hospital in Blood ID Date Data Source [id number] 10/02/2018 06:04:[address] [facility] Value Range Interpretation Description Data Sup porting Code Source(s) Document(s ) Erythrocytes 4.31 [facility] [#/volume] in 10*6/uL Hospital Blood by Automated count ID Date Data Source [id number] 10/02/2018 06:04:00 AM EDT [facility] Name Value Range Interpretation Description Data Sup porting Code Source(s) Document(s ) Leukocytes 6.8 [facility] [#/volume] in 10*3/uL Hospital Blood by Automated count ID Date Data Source [id number] 09/21/2018 03:00:00 AM EDT [facility] 0 Name Value Range Interpretation Description [...] by Test d">Urine Medical strip Specific Center [place] </content>1.01 0 L<content styleCode="Suzanne lics"> (1.015-1.025 )</content> [...] (NONE SEEN LPF)</content> ID Date Data Source Microbiology.[id number] 09/21/2018 03:00:00 AM EDT [facility] 400 Name Value Range Interpretation Code Description Data Katya rce(s) Supporting Document(s ) UNK <item><content [facility] styleCode="Bold"> Medical [facility] er Culture Report </content>
<t able><tbody><tr>< td>Specimen Number:</td><td>[id number]</td></tr ><tr><td>Sample Collection Date/Time: </td><td>09/21/2018 3:00 AM</td></tr><tr>< td>Specimen Source:</td><td>U RINE</td></tr><tr ><td>Urine Culture:</td><td> Collection Plate Date: 09/21/2018 03:02 </td></tr><tr><td >Culture Status:</td><td>P reliminary </td></tr><tr><td >Culture Report:</td><td>C ulture in progress </td></tr></tbody ></table></item> UNK <item><content [facility] styleCode="Bold"> Medical [facility] er Culture Status </content>
<t able><tbody><tr>< td>Specimen Number:</td><td>[id number]</td></tr ><tr><td>Sample Collection Date/Time: </td><td>09/21/2018 3:00 AM</td></tr><tr>< td>Specimen Source:</td><td>U RINE</td></tr><tr ><td>Culture Status:</td><td>P reliminary </td></tr><tr><td >Culture Report:</td><td>C ulture in progress </td></tr><tr><td >Urine Culture:</td><td> Collection Plate Date: 09/21/2018 03:02 </td></tr></tbody ></table></item> ID Date Data Source Urinalysis.[id number] 09/14/2018 08:45:00 PM EDT [facility] 0 Name Value Range Interpretation Description Data Sup porting Code Source(s) Document(s ) Color of Urine YELLOW <content [facility] styleCode="Kristina Dasia d">Color, [facility] Urine Center </content>YELL OW <content styleCode="Suzanne lics"> (YELLOW )</content> Glucose NEGATIVE <content [facility] [Mass/volume] styleCode="Kristina Forman in Urine by d">Urine Medical Test strip Glucose Center </content>NEGA TIVE MG/DL<content styleCode="Suaznne lics"> (NEGATIVE MG/DL)</conten t> UNK CLEAR <content [...] by Test d">Urine Medical strip Specific [facility] [place] </content>>= 1.030 H<content styleCode="Suzanne lics"> (1.015-1.025 )</content> [...] not available)<br/ > ID Date Data Source MROUTINECCDA.[id number] 09/14/2018 08:45:00 PM EDT Neil [facility] -0400 Name Value Range Interpretation Description Data Sup porting Code Source(s) Document(s ) Cannabinoids <content [facility] [Presence] in styleCode="[facility] Urine by Screen d">Cannabinoid Medical method >50 ng/mL s Center </content>NEGA TIVE NG/ML (Reference Range: not available)<br/ > ID Date Data Source Liver 09/14/2018 08:04:00 PM EDT [facility] Profile.[id number] Name Value Range Interpretation Description Data Sup [...] s"> (7-50 IU/L)</content> ID Date Data Source HematologyRou.[id number] 09/14/2018 08:04:00 PM EDT [facility] 0400 Name Value Range Interpretation Description [...] ics"> (8.0-11.0 [place])</content> ID Date Data Source GFR(Creatinine).[id number] 09/14/2018 08:04:00 PM EDT [facility] 0-0400 Name Value Range Interpretation Code Description Data Katya rce(s) Supporting Document(s ) UNK > 60 <content [facility] styleCode="Bold"> Medical Cent er EGFR </content>63 GFR<content styleCode="Italic s"> (> 60 GFR)</content> ID Date Data Source CardiacMarkers.[id number] 09/14/2018 08:04:00 PM EDT [facility] -0400 Name Value Range Interpretation Description Data Sup porting Code Source(s) Document(s ) Creatine 55-170 Above high normal <content [facility] kinase styleCode="Bold Medical [Enzymatic ">CK Center activity/vol </content>646 ume] in IU/L H<content Serum or styleCode="Ital Plasma ics"> (55-170 IU/L)</content> ID Date Data Source [id number] 09/14/2018 08:04:00 PM EDT [facility] Name Value Range Interpretation Description [...] MG/DL)</content> UNK > 60 <content [facility] styleCode="Bold"> [facility] EGFR </content>63 Medical GFR<content Center styleCode="Italic s"> [...] Source Liver Profile 03/06/2018 08:38:00 PM EST [facility] Name Value Range Interpretation Description Data [...] styleCode="Italic s"> (0.2-1.3 MG/DL)</content> Alkaline 38-126 <content [facility] phosphatase styleCode="Bold"> Dasia [Enzymatic Alkaline Medical activity/volume] Phosphatase (ALP) Cente r in Serum or Plasma </content>65 IU/L<content styleCode="Italic s"> (38-126 IU/L)</content> Alanine 7-50 <content [facility] aminotransferase styleCode="Bold"> [facility] [Enzymatic Alanine Medical activity/volume] Aminotransferase Center in Serum or Plasma (ALT) </content>12 IU/L<content styleCode="Italic s"> (7-50 IU/L)</content> Albumin 3.5-5.0 <content [facility] [Mass/volume] in styleCode="Bold"> [facility] Serum or Plasma Albumin Medical </content>3.6 Center G/DL<content styleCode="Italic s"> (3.5-5.0 G/DL)</content> ID Date Data Source GFR(Creatinine) 03/06/2018 08:38:00 PM [facility] Name Value Range Interpretation Code Description Data Katya rce(s) Supporting Document(s ) UNK > 60 <content [facility] styleCode="Bold"> Medical Cent er EGFR </content>154 GFR<content styleCode="Italic s"> (> 60 GFR)</content> ID Date Data Source [id number] 03/06/2018 08:38:00 PM [facility] Name Value Range Interpretation Description Data Sup porting Code Source(s) Document(s ) UNK 2.3-3.5 <content [facility] styleCode="Bold Medical ">Globulin Center </content>2.5 G/DL<content styleCode="Ital ics"> (2.3-3.5 G/DL)</content> UNK >= 1.0 <content [facility] styleCode="Bold Medical ">AG Ratio Center </content>1.4 NM<content styleCode="Ital ics"> (>= 1.0 NM)</content> Protein 6.3-8.2 Below low normal <content [facility] [Mass/volum styleCode="Bold Medical e] in Serum ">Total Protein Center or Plasma </content>6.1 G/DL L<content styleCode="Ital ics"> (6.3-8.2 G/DL)</content> ID Date Data Source CardiacMarkers 03/06/2018 08:38:00 PM [facility] Name Value Range Interpretation Description Data Sup porting Code Source(s) Document(s ) Troponin 0-0.034 <content [facility] I.cardiac styleCode="Bold Dasia [Mass/volume ">Troponin I Medical ] in Serum </content>< Center or Plasma 0.012 NG/ML<content styleCode="Ital ics"> (0-0.034 NG/ML)</content > ID Date Data Source BMP 03/06/2018 08:38:00 PM [facility] Name Value Range Interpretation Description Data Sup porting Code Source(s) Document(s ) Sodium 137-145 <content [facility] [Moles/volume] in styleCode="Bold"> [facility] Serum or Plasma Sodium Medical </content>139 Center MEQ/L<content styleCode="Italic s"> (137-145 MEQ/L)</content> Potassium 3.5-5.3 <content [facility] [Moles/volume] in styleCode="Bold"> [facility] Serum or Plasma Potassium Medical </content>4.3 Center MEQ/L<content styleCode="Italic s"> (3.5-5.3 MEQ/L)</content> UNK 9-20 <content [facility] styleCode="Bold"> Dasia BUN </content>19 Medical MG/DL<content Center styleCode="Italic s"> (9-20 MG/DL)</content> Carbon dioxide, 22-30 <content [facility] total styleCode="Bold"> Dasia [Moles/volume] in Carbon Dioxide Medical Serum or Plasma </content>29 Center MEQ/L<content styleCode="Italic s"> (22-30 MEQ/L)</content> Chloride 98-107 <content [facility] [Moles/volume] in styleCode="Bold"> [facility] Serum or Plasma Chloride Medical </content>105 Center [...] Data Source HematologyRou 03/06/2018 08:05:00 PM EST [facility] Name Value Range Interpretation Description Data [...] AM Medical Cente r EST Smoking 03/06/2018 [id number] completed [facility] 09:44:00 PM Medical Cente r EST Smoking 03/06/2018 [id number] completed [facility] 06:52:00 PM Medical Cente r EST Smoking 03/06/2018 [id number] completed [facility] 06:52:00 PM Medical Cente r EST Smoking 03/06/2018 [id number] completed [facility] 06:48:00 PM Medical Cente r EST Smoking 03/05/2018 [id number] completed [facility] 12:10:00 AM Medical Cente r EST Smoking 03/05/2018 [id number] completed [facility] 12:05:00 AM Medical Cente r EST Smoking Unknown if ever completed Unknown if ever [facility] [place] smoked smoked Hospital Smoking Unknown if ever completed Unknown if ever Arianeelroy Forman smoked smoked Medical Center Vital Signs ID Date Data Source UNK Name Value Range Interpretation Code Description Data Source(s) Body weight 83.794235 kg 83.470671 kg [facility] Measured [facility] Center Body temperature 36.884616 Linda 36.863911 Linda [facility] Respiratory rate 18 /min 18 /min [facility] Oxygen 97 % 97 % [facility] saturation in Medical Arterial blood Center by Pulse oximetry Heart rate 95 /min 95 /min [facility] Body height 170.648833 cm 170.680182 cm [facility] Diastolic blood 93 mm[Hg] 93 mm[Hg] [facility] Systolic blood 150 mm[Hg] 150 mm[Hg] [facility] Center Body mass index 28.9 kg/m2 28.9 kg/m2 [facility] (BMI) [Ratio] Medical Center Body temperature 36.575224 Linda 36.104663 Linda [facility] Respiratory rate 17 /min 17 /min [facility] Oxygen 98 % 98 % [facility] saturation in Medical Arterial blood Center by Pulse oximetry Heart rate 121 /min 121 /min [facility] Diastolic blood 89 mm[Hg] 89 mm[Hg] [facility] Systolic blood 136 mm[Hg] 136 mm[Hg] [facility] Medical Center Body weight 85.838976 kg 85.912093 kg [facility] Measured Medical Center Body temperature 37.811497 Linda 37.409749 Linda [facility] Respiratory rate 18 /min 18 /min [facility] Oxygen 98 % 98 % [facility] saturation in Medical Arterial blood Center by Pulse oximetry Heart rate 90 /min 90 /min [facility] Body height 172.360800 cm 172.108988 cm [facility] Diastolic blood 88 mm[Hg] 88 mm[Hg] [facility] Center Systolic blood 148 mm[Hg] 148 mm[Hg] [facility] pressure Medical Center Body mass index 28.4 kg/m2 28.4 kg/m2 [facility] (BMI) [Ratio] Medical Center Body temperature 36.486999 Linda 36.641363 Linda [facility] Respiratory rate 16 /min 16 /min [facility] Center Oxygen 98 % 98 % [facility] saturation in Medical Arterial blood Center by Pulse oximetry Heart rate 89 /min 89 /min [facility] Diastolic blood 55 mm[Hg] 55 mm[Hg] [facility] Medical Center Systolic blood 100 mm[Hg] 100 mm[Hg] [facility] pressure Medical Center Body temperature 37.492126 Linda 37.597577 Linda [facility] Respiratory rate 16 /min 16 /min [facility] Oxygen 97 % 97 % [facility] saturation in Medical Arterial blood Center by Pulse oximetry Heart rate 93 /min 93 /min [facility] Diastolic blood 50 mm[Hg] 50 mm[Hg] [facility] pressure Medical Center Systolic blood 97 mm[Hg] 97 mm[Hg] [facility] pressure Medical Center Diastolic blood 73 mmHg 73 mmHg [facility] Systolic blood 110 mmHg 110 mmHg [facility] Respiratory rate 18 bpm 18 bpm [facility] Heart rate 91 bpm 91 bpm [facility] Diastolic blood 69 mmHg 69 mmHg [facility] Systolic blood 111 mmHg 111 mmHg [facility] Respiratory rate 18 bpm 18 bpm [facility] Heart rate 77 bpm 77 bpm [facility] Body temperature 97.7 Fahrenheit 97.7 Fahrenh t [facility] Diastolic blood 76 mmHg 76 mmHg [facility] Systolic blood 121 mmHg 121 mmHg [facility] Respiratory rate 18 bpm 18 bpm [facility] Heart rate 81 bpm 81 bpm [facility] Body temperature 97.6 Fahrenheit 97.6 Fahrenhei t [facility] Diastolic blood 72 mmHg 72 mmHg [facility] Systolic blood 106 mmHg 106 mmHg [facility] Respiratory rate 18 bpm 18 bpm [facility] Heart rate 67 bpm 67 bpm [facility] Body temperature 97.6 Fahrenheit 97.6 Fahrenhei t [facility] Diastolic blood 73 mmHg 73 mmHg [facility] Systolic blood 101 mmHg 101 mmHg [facility] Heart rate 74 bpm 74 bpm [facility] Diastolic blood 69 mmHg 69 mmHg [facility] Systolic blood 102 mmHg 102 mmHg [facility] Respiratory rate 18 bpm 18 bpm [facility] Heart rate 59 bpm 59 bpm [facility] Body temperature 98.4 Fahrenheit 98.4 Fahrenhei t [facility] Diastolic blood 72 mmHg 72 mmHg [facility] Systolic blood 106 mmHg 106 mmHg [facility] Heart rate 78 bpm 78 bpm [facility] Diastolic blood 79 mmHg 79 mmHg [facility] Systolic blood 123 mmHg 123 mmHg [facility] Respiratory rate 18 bpm 18 bpm [facility] Heart rate 69 bpm 69 bpm [facility] Body temperature 98.0 Fahrenheit 98.0 Fahrenhei t [facility] Diastolic blood 78 mmHg 78 mmHg [facility] Systolic blood 114 mmHg 114 mmHg [facility] Heart rate 83 bpm 83 bpm [facility] Body weight 160.0 lbs 160.0 lbs [facility] Diastolic blood 79 mmHg 79 mmHg [facility] Systolic blood 110 mmHg 110 mmHg [facility] Respiratory rate 18 bpm 18 bpm [facility] Heart rate 78 bpm 78 bpm [facility] Body temperature 97.3 Fahrenheit 97.3 Fahrenhei t [facility] Diastolic blood 72 mmHg 72 mmHg [facility] Systolic blood 97 mmHg 97 mmHg [facility] Heart rate 81 bpm 81 bpm [facility] Diastolic blood 69 mmHg 69 mmHg [facility] Systolic blood 123 mmHg 123 mmHg [facility] Heart rate 94 bpm 94 bpm [facility] Diastolic blood 72 mmHg 72 mmHg [facility] Systolic blood 112 mmHg 112 mmHg [facility] Respiratory rate 16 bpm 16 bpm [facility] Heart rate 81 bpm 81 bpm [facility] Body temperature 97.7 Fahrenheit 97.7 Fahrenhei t [facility] Respiratory rate 18 bpm 18 bpm [facility] Body temperature 36.9 Fahrenheit 36.9 Fahrenhei t [facility] Diastolic blood 63 mmHg 63 mmHg [facility] Systolic blood 97 mmHg 97 mmHg [facility] Heart rate 99 bpm 99 bpm [facility] Respiratory rate 18 bpm 18 bpm [facility] Body temperature 98.2 Fahrenheit 98.2 Fahrenhei t [facility] Diastolic blood 76 mmHg 76 mmHg [facility] Systolic blood 116 mmHg 116 mmHg [facility] Heart rate 105 bpm 105 bpm [facility] Diastolic blood 85 mmHg 85 mmHg [facility] Systolic blood 117 mmHg 117 mmHg [facility] Heart rate 86 bpm 86 bpm [facility] Respiratory rate 18 bpm 18 bpm [facility] Body temperature 97.9 Fahrenheit 97.9 Fahrenhei t [facility] Diastolic blood 82 mmHg 82 mmHg [facility] Systolic blood 154 mmHg 154 mmHg [facility] Heart rate 77 bpm 77 bpm [facility] Diastolic blood 85 mmHg 85 mmHg [facility] Systolic blood 127 mmHg 127 mmHg [facility] Respiratory rate 18 bpm 18 bpm [facility] Heart rate 105 bpm 105 bpm [facility] Body temperature 98.4 Fahrenheit 98.4 Fahrenhei t [facility] Diastolic blood 77 mmHg 77 mmHg [facility] Systolic blood 109 mmHg 109 mmHg [facility] Respiratory rate 18 bpm 18 bpm [facility] Heart rate 72 bpm 72 bpm [facility] Body temperature 98.7 Fahrenheit 98.7 Fahrenhei t [facility] Diastolic blood 80 mmHg 80 mmHg [facility] Systolic blood 114 mmHg 114 mmHg [facility] Respiratory rate 18 bpm 18 bpm [facility] Heart rate 91 bpm 91 bpm [facility] Body temperature 97.6 Fahrenheit 97.6 Fahrenhei t [facility] Diastolic blood 79 mmHg 79 mmHg [facility] Systolic blood 119 mmHg 119 mmHg [facility] Respiratory rate 18 bpm 18 bpm [facility] Heart rate 77 bpm 77 bpm [facility] Body temperature 97.6 Fahrenheit 97.6 Fahrenhei t [facility] Diastolic blood 73 mmHg 73 mmHg [facility] Systolic blood 111 mmHg 111 mmHg [facility] Respiratory rate 16 bpm 16 bpm [facility] Heart rate 80 bpm 80 bpm [facility] Diastolic blood 74 mmHg 74 mmHg [facility] Systolic blood 118 mmHg 118 mmHg [facility] Respiratory rate 18 bpm 18 bpm [facility] Heart rate 88 bpm 88 bpm [facility] Body [facility].1 [facility] 18 bpm 18 bpm [facility] Heart rate 76 bpm 76 bpm [facility] Body temperature 98.1 Fahrenheit 98.1 [facility] Di[facility] blood 78 mmHg 78 mmHg [facility] Systolic blood 117 mmHg 117 mmHg [facility] Diastolic blood 70 mmHg 70 mmHg [facility] Systolic blood 101 mmHg 101 mmHg [facility] Heart rate 87 bpm 87 bpm [facility] Diastolic blood 75 mmHg 75 mmHg [facility] Systolic blood 107 mmHg 107 mmHg [facility] Respiratory rate 18 bpm 18 bpm [facility] Heart rate 81 bpm 81 bpm [facility] Diastolic blood 67 mm[Hg] 67 mm[Hg] [facility] Systolic blood 114 mm[Hg] 114 mm[Hg] [facility] Respiratory rate 16 /min 16 /min [facility] Heart rate 74 /min 74 /min [facility] Body temperature 36.86329 Linda 36.46105 Linda [facility] Body temperature 98.2 [degF] 98.2 [degF] [facility] Body mass index 28.0 kg/m2 28.0 kg/m2 [facility] (BMI) [Ratio] Hospital Body weight 180.36 [lb_av] 180.36 [lb_av] [facility] Diastolic blood 71 mm[Hg] 71 mm[Hg] [facility] Systolic blood 124 mm[Hg] 124 mm[Hg] [facility] Respiratory rate 18 /min 18 /min [facility] Heart rate 81 /min 81 /min [facility] Body temperature 37.75250 Linda 37.59020 Linda [facility] Body temperature 98.6 [degF] 98.6 [degF] [facility] Body mass index 28.0 kg/m2 28.0 kg/m2 [facility] Hospital (BMI) [Ratio] Hospital Body weight 180.38 [lb_av] 180.38 [lb_av] [facility] Body temperature 36.183961 Linda 36.150431 Linda [facility] Respiratory rate 18 /min 18 /min [facility] Oxygen 95 % 95 % [facility] saturation in Medical Arterial blood Center by Pulse oximetry Heart rate 81 /min 81 /min [facility] Diastolic blood 67 mm[Hg] 67 mm[Hg] [facility] pressure Medical Center Systolic blood 130 mm[Hg] 130 mm[Hg] [facility] Body weight 65.426851 kg 65.453198 kg [facility] Medical Center Body temperature 36.483971 Linda 36.982900 Linda [facility] Respiratory rate 17 /min 17 /min [facility] Oxygen 96 % 96 % [facility] saturation in Medical Arterial blood Center by Pulse oximetry Heart rate 88 /min 88 /min [facility] Diastolic blood 88 mm[Hg] 88 mm[Hg] [facility] Medical Center Systolic blood 141 mm[Hg] 141 mm[Hg] [facility] Body temperature 37.146255 Linda 37.418941 Linda [facility] Respiratory rate 17 /min 17 /min [facility] Oxygen 97 % 97 % [facility] saturation in Medical Arterial blood Center by Pulse oximetry Heart rate 98 /min 98 /min [facility] Diastolic blood 88 mm[Hg] 88 mm[Hg] [facility] Medical Center Systolic blood 152 mm[Hg] 152 mm[Hg] [facility] Body temperature 36.086156 Linda 36.613610 Linda [facility] Respiratory rate 18 /min 18 /min [facility] Oxygen 99 % 99 % [facility] saturation in Medical Arterial blood Center by Pulse oximetry Heart rate 88 /min 88 /min [facility] Diastolic blood 79 mm[Hg] 79 mm[Hg] [facility] Medical Center Systolic blood 144 mm[Hg] 144 mm[Hg] [facility] Body weight 80.800027 kg 80.247844 kg [facility] Measured Medical Center Body temperature 36.710869 Linda 36.795401 Linda [facility] Respiratory rate 19 /min 19 /min [facility] Oxygen 99 % 99 % [place] saturation in Medical Arterial blood Center by Pulse oximetry Heart rate 101 /min 101 /min [facility] Body height 1767.505695 cm 1767.195860 cm [facility] Diastolic blood 101 mm[Hg] 101 mm[Hg] [facility] Medical Center Systolic blood 161 mm[Hg] 161 mm[Hg] [facility] Body mass index 0.2 kg/m2 0.2 kg/m2 [facility] (BMI) [Ratio] Medical Center Body temperature 36.345864 Linda 36.930777 Linda [facility] Respiratory rate 18 /min 18 /min [facility] Deprecated 97 % 97 % [facility] Oxygen Medical saturation in Center Capillary blood by Oximetry Heart rate 74 /min 74 /min [facility] Systolic blood 74 mm[Hg] 74 mm[Hg] [facility] Diastolic blood 147 mm[Hg] 147 mm[Hg] [facility] Body temperature 36.097690 Linda 36.622919 Linda [facility] Respiratory rate 18 /min 18 /min [facility] Deprecated 96 % 96 % [facility] Oxygen Medical saturation in Center Capillary blood by Oximetry Heart rate 78 /min 78 /min [facility] Systolic blood 75 mm[Hg] 75 mm[Hg] [facility] Diastolic blood 137 mm[Hg] 137 mm[Hg] [facility] Body temperature 36.841043 Linda 36.335929 Linda [facility] Respiratory rate 15 /min 15 /min [facility] Deprecated 100 % 100 % [facility] Oxygen Medical saturation in Center Capillary blood by Oximetry Heart rate 85 /min 85 /min [facility] Systolic blood 90 mm[Hg] 90 mm[Hg] [facility] Diastolic blood 137 mm[Hg] 137 mm[Hg] [facility] Body temperature 36.211904 Linda 36.645765 Linda [facility] Respiratory rate 18 /min 18 /min [facility] Deprecated 97 % 97 % [facility] Oxygen Medical saturation in Center Capillary blood by Oximetry Heart rate 78 /min 78 /min [facility] Systolic blood 81 mm[Hg] 81 mm[Hg] [facility] Diastolic blood 127 mm[Hg] 127 mm[Hg] [facility] Body temperature 36.328201 Linda 36.413488 Linda [facility] Respiratory rate 20 /min 20 /min [facility] Deprecated 99 % 99 % [facility] Oxygen Medical saturation in Center Capillary blood by Oximetry Heart rate 89 /min 89 /min [facility] Systolic blood 89 mm[Hg] 89 mm[Hg] [facility] Diastolic blood 145 mm[Hg] 145 mm[Hg] [facility] Body temperature 36.137797 Linda 36.784919 Linda [facility] Respiratory rate 19 /min 19 /min [facility] Deprecated 100 % 100 % [facility] Oxygen Medical saturation in Center Capillary blood by Oximetry Heart rate 102 /min 102 /min [facility] Systolic blood 99 mm[Hg] 99 mm[Hg] [facility] Diastolic blood 149 mm[Hg] 149 mm[Hg] [facility] Body temperature 36.545827 Linda 36.451200 Linda [facility] Respiratory rate 20 /min 20 /min [facility] Deprecated 98 % 98 % [facility] Oxygen Medical saturation in Center Capillary blood by Oximetry Heart rate 115 /min 115 /min [facility] Systolic blood 95 mm[Hg] 95 mm[Hg] [facility] Diastolic blood 154 mm[Hg] 154 mm[Hg] [facility] Patient Treatment Plan of Care Planned Activity Planned Date Details Description Data Source (s) DuoNeb 0.5/3mg/3mL 03/11/2019 12:07:07 [facility] Prednisone 20 MG Oral [facility] 200 ACTUAT Albuterol [facility] 0.09 MG/ACTUAT Metered Cente r Dose Inhaler Prednisone 20 MG Oral [facility] Prednisone 20 MG Oral [facility] 120 ACTUAT Budesonide [facility] 0.16 MG/ACTUAT / Center formoterol fumarate 0.0045 MG/ACTUAT Metered Dose Inhaler [Symbicort] 200 ACTUAT Albuterol [facility] 0.09 MG/ACTUAT Metered Cente r Dose Inhaler [Proventil] Prednisone 20 MG Oral [facility] 200 ACTUAT Albuterol [facility] 0.09 MG/ACTUAT Metered Cente r Dose Inhaler [Proventil]
[2020-01-06] MEDS: PRENATAL VITAMINS W/ FOLIC ACID TABLET (FP) PO SCH (11:35)
[2020-01-06] MEDS: hydrOXYzine PAMOATE 25 MG CAPSULE (FP) PO SCH ×4 (11:37→22:38)
[2020-01-06] MEDS: BUDESONIDE/FORMETEROL FUMARATE 160/4.5 mcg INHALER IH SCH ×2 (11:37→22:38)
[2020-01-06] MEDS: chlordiazePOXIDE HCL 25 MG CAPSULE PO SCH ×3 (11:37→22:38)
[2020-01-06] MEDS: NICOTINE 21 MG/24 HOURS TOPICAL PATCH TD SCH (11:37)
--- NOTE | 2020-01-06 12:29 | EKG ---
Test Reason : Blood Pressure : / mmHG Vent. Rate : 076 BPM Atrial Rate : 076 BPM P-R Int : 180 ms QRS Dur : 086 ms QT Int : 374 ms P-R-T Axes : 060 044 056 degrees QTc Int : 420 ms NORMAL SINUS RHYTHM NORMAL ECG WHEN COMPARED WITH ECG OF 23-DEC-2019 06:38, NO SIGNIFICANT CHANGE WAS FOUND Confirmed by Rivera Philip MD ([id number]) on 01/06/2020 12:29:15 PM Referred By: Confirmed By:Rivera Philip MD
[2020-01-06 14:26] LABS: HEMATOCRIT 39.3 % (35.4-49); HEMOGLOBIN 12.5 GM/dL (11.7-16.9); MCH 25.3 pg (25.7-33.7); MCHC 31.8 g/dl (32.0-35.9); MEAN CELL VOLUME 79.6 fl (80-96); MEAN PLT VOLUME 7.7 fl (7.5-11.1); PLATELET COUNT 296 K/MM3 (134-434); RBC 4.93 M/mm3 (4.00-5.60); RDW 15.6 % (11.9-15.9); WHITE BLOOD COUNT 9.7 K/mm3 (4.0-10.0)
[2020-01-06 14:47] LABS: ALBUMIN 3.6 g/dl (3.4-5.0); CALCIUM 8.7 mg/dL (8.5-10.1); CREATININE 0.8 mg/dL (0.55-1.3)
[2020-01-06 14:53] LABS: BILIRUBIN,TOTAL 1.3 mg/dL (0.2-1); BLOOD UREA NITROGEN 13.2 mg/dL (7-18)
[2020-01-06] MEDS: THIAMINE HCL 100 MG TABLET (FP) PO SCH (22:38)
[2020-01-06] MEDS: MELATONIN 5 MG TABLETS PO SCH (22:38)
[2020-01-07] MEDS: ALBUTEROL SO4 HFA INHALER IH PRN (02:30)
[2020-01-07] MEDS ORDERED: ALBUTEROL SO4 2.5/IPRATROPIUM 0.5 INH SOL 3 ML VIAL.NEB. NEB ONE ×2 (02:36→02:42)
[2020-01-07] MEDS: chlordiazePOXIDE HCL 25 MG CAPSULE PO SCH ×4 (06:12→22:46)
[2020-01-07] MEDS: hydrOXYzine PAMOATE 25 MG CAPSULE (FP) PO SCH ×5 (06:12→22:46)
--- NOTE | 2020-01-07 06:40 | PN ---
[facility] Progress Note Note: Patient complained of severe congestion not relieved with albuterol inhaler. Audible wheezing noted AlbuterolVital Signs Temperature 98.1 F 01/07/20 06:20 Pulse Rate 72 01/07/20 06:20 Respiratory Rate 18 01/07/20 06:20 Blood Pressure 112/74 01/07/20 06:20 O2 Sat by Pulse Oximetry (%) 99 01/07/20 06:20 Action: Albuterol 2.5 / Ipratropium 0.5 (Duoneb) 1 amp nebulizer ordered with good result Monitor respiratory status
--- NOTE | 2020-01-07 08:53 | PN ---
S CIWA - CIWA Score Nausea/Vomitin Muscle Tremors: 2 Anxiety: 2 Agitation: 2 Paroxysmal Sweats: 1-Minimal Palms Moist Orientation: 0-Oriented Tacttile Disturbances: 1-Very Mild Itch/Numbness Auditory Disturbances: 0-None Visual Disturbances: 0-None Headache: 2-Mild CIWA-Ar Total Score: 12 BHS COWS - Scale Resting Pulse: 0= [place] 80 or Below Sweatin= No chills or Flushing Restless Observation: 0= Sits Still Pupil Size: 1= Pupils >than Normal Bone or Joint Aches: 2= Severe Diffuse Aches Runny Nose/ Eye Tearin= Nasal Congestion GI Upset > 30mins: 2= Nausea/Diarrhea Tremor Observation of Outstretched Hands: 2= Slight Tremor Visible Yawning Observation: 1= 1-2x During Session Anxiety or Irritability: 2=Irritable/Anxious Goose Flesh Skin: 0=Smooth Skin COWS Score: 11 S Progress Note (SOAP) Subjective: alert,irritable,anxious,interrupted sleep,pain in the body and back Objective: 01/07/20 11:04 Vital Signs Temperature 97.3 F L 01/07/20 08:31 Pulse Rate 77 01/07/20 08:31 Respiratory Rate 18 01/07/20 08:31 Blood Pressure 124/80 01/07/20 08:31 O2 Sat by Pulse Oximetry (%) 99 01/07/20 06:20 01/07/20 11:04 Laboratory Last Values WBC 9.7 K/mm3 (4.0-10.0) 01/06/20 09:15 RBC 4.93 M/mm3 (4.00-5.60) 01/06/20 09:15 Hgb 12.5 GM/dL (11.7-16.9) 01/06/20 09:15 Hct 39.3 % (35.4-49) 01/06/20 09:15 MCV 79.6 fl (80-96) L 01/06/20 09:15 MCH 25.3 pg (25.7-33.7) L 01/06/20 09:15 MCHC 31.8 g/dl (32.0-35.9) L 01/06/20 09:15 RDW 15.6 % (11.9-15.9) 01/06/20 09:15 Plt Count 296 K/MM3 (134-434) 01/06/20 09:15 MPV 7.7 fl (7.5-11.1) 01/06/20 09:15 Sodium 138 mmol/L (136-145) 01/06/20 09:15 Potassium 4.0 mmol/L (3.5-5.1) 01/06/20 09:15 Chloride 103 mmol/L (98-107) 01/06/20 09:15 Carbon Dioxide 29 mmol/L (21-32) 01/06/20 09:15 Anion Gap 6 MMOL/L (8-16) L 01/06/20 09:15 BUN 13.2 mg/dL (7-18) 01/06/20 09:15 Creatinine 0.8 mg/dL (0.55-1.3) 01/06/20 09:15 Est GFR (CKD-EPI)AfAm 122.43 01/06/20 09:15 Est GFR (CKD-EPI)NonAf 105.63 01/06/20 09:15 Random Glucose 107 mg/dL (74-106) H 01/06/20 09:15 Calcium 8.7 mg/dL (8.5-10.1) 01/06/20 09:15 Total Bilirubin 1.3 mg/dL (0.2-1) H 01/06/20 09:15 AST 10 U/L (15-37) L 01/06/20 09:15 ALT 15 U/L (13-61) 01/06/20 09:15 Alkaline Phosphatase 102 U/L (45-117) 01/06/20 09:15 Total Protein 7.0 g/dl (6.4-8.2) 01/06/20 09:15 Albumin 3.6 g/dl (3.4-5.0) 01/06/20 09:15 Syphilis Serology Non-reactive (NONREACTIVE) 01/06/20 09:15 Assessment: 01/07/20 11:05 withdrawal symptom Plan: continue detox methadone and librium regimen
[2020-01-07] MEDS ORDERED: METHADONE HCL 10 MG TABLET (FOR DETOX USE ONLY) ONE (08:56)
[2020-01-07] MEDS ORDERED: METHADONE HCL 5 MG TABLET (FOR DETOX USE ONLY) ONE (08:57)
[2020-01-07] MEDS ORDERED: METHADONE (DETOX) 20 MG, METHADONE (DETOX) 5 MG PO ONE (10:00)
[2020-01-07] MEDS: PRENATAL VITAMINS W/ FOLIC ACID TABLET (FP) PO SCH (10:28)
[2020-01-07] MEDS: NICOTINE 21 MG/24 HOURS TOPICAL PATCH TD SCH (10:29)
[2020-01-07] MEDS: BUDESONIDE/FORMETEROL FUMARATE 160/4.5 mcg INHALER IH SCH ×2 (10:29→22:46)
[2020-01-07] MEDS: MELATONIN 5 MG TABLETS PO SCH (22:46)
[2020-01-07] MEDS: THIAMINE HCL 100 MG TABLET (FP) PO SCH (22:46)
[2020-01-08] MEDS: chlordiazePOXIDE HCL 25 MG CAPSULE PO SCH ×2 (06:50→10:29)
[2020-01-08] MEDS: hydrOXYzine PAMOATE 25 MG CAPSULE (FP) PO SCH ×3 (06:50→13:54)
[2020-01-08] MEDS ORDERED: METHADONE HCL 10 MG TABLET (FOR DETOX USE ONLY) PO ONE (10:00)
[2020-01-08] MEDS: PRENATAL VITAMINS W/ FOLIC ACID TABLET (FP) PO SCH (10:29)
[2020-01-08] MEDS: BUDESONIDE/FORMETEROL FUMARATE 160/4.5 mcg INHALER IH SCH (10:29)
[2020-01-08] MEDS: NICOTINE 21 MG/24 HOURS TOPICAL PATCH TD SCH (10:29)
--- NOTE | 2020-01-08 10:38 | PN ---
S CIWA - CIWA Score Nausea/Vomitin-Mild Nausea/No Vomiting Muscle Tremors: 2 Anxiety: 2 Agitation: 2 Paroxysmal Sweats: No Perspiration Orientation: 0-Oriented Tacttile Disturbances: 0-None Auditory Disturbances: 0-None Visual Disturbances: 0-None Headache: 2-Mild CIWA-Ar Total Score: 9 BHS COWS - Scale Resting Pulse: 0= [place] 80 or Below Sweatin= No chills or Flushing Restless Observation: 0= Sits Still Pupil Size: 1= Pupils >than Normal Bone or Joint Aches: 1= Mild Discomfort Runny Nose/ Eye Tearin= Nasal Congestion GI Upset > 30mins: 1= Stomach Cramp Tremor Observation of Outstretched Hands: 2= Slight Tremor Visible Yawning Observation: 1= 1-2x During Session Anxiety or Irritability: 2=Irritable/Anxious Goose Flesh Skin: 0=Smooth Skin COWS Score: 9 S Progress Note (SOAP) Subjective: alert,irritable,anxious,interrupted sleep,pain in the body and back Objective: 01/08/20 16:09 Vital Signs Temperature 97.5 F L 01/08/20 12:38 Pulse Rate 83 01/08/20 12:38 Respiratory Rate 18 01/08/20 12:38 Blood Pressure 111/75 01/08/20 12:38 O2 Sat by Pulse Oximetry (%) 95 01/08/20 12:38 Laboratory Last Values WBC 9.7 K/mm3 (4.0-10.0) 01/06/20 09:15 RBC 4.93 M/mm3 (4.00-5.60) 01/06/20 09:15 Hgb 12.5 GM/dL (11.7-16.9) 01/06/20 09:15 Hct 39.3 % (35.4-49) 01/06/20 09:15 MCV 79.6 fl (80-96) L 01/06/20 09:15 MCH 25.3 pg (25.7-33.7) L 01/06/20 09:15 MCHC 31.8 g/dl (32.0-35.9) L 01/06/20 09:15 RDW 15.6 % (11.9-15.9) 01/06/20 09:15 Plt Count 296 K/MM3 (134-434) 01/06/20 09:15 MPV 7.7 fl (7.5-11.1) 01/06/20 09:15 Sodium 138 mmol/L (136-145) 01/06/20 09:15 Potassium 4.0 mmol/L (3.5-5.1) 01/06/20 09:15 Chloride 103 mmol/L (98-107) 01/06/20 09:15 Carbon Dioxide 29 mmol/L (21-32) 01/06/20 09:15 Anion Gap 6 MMOL/L (8-16) L 01/06/20 09:15 BUN 13.2 mg/dL (7-18) 01/06/20 09:15 Creatinine 0.8 mg/dL (0.55-1.3) 01/06/20 09:15 Est GFR (CKD-EPI)AfAm 122.43 01/06/20 09:15 Est GFR (CKD-EPI)NonAf 105.63 01/06/20 09:15 Random Glucose 107 mg/dL (74-106) H 01/06/20 09:15 Calcium 8.7 mg/dL (8.5-10.1) 01/06/20 09:15 Total Bilirubin 1.3 mg/dL (0.2-1) H 01/06/20 09:15 AST 10 U/L (15-37) L 01/06/20 09:15 ALT 15 U/L (13-61) 01/06/20 09:15 Alkaline Phosphatase 102 U/L (45-117) 01/06/20 09:15 Total Protein 7.0 g/dl (6.4-8.2) 01/06/20 09:15 Albumin 3.6 g/dl (3.4-5.0) 01/06/20 09:15 Syphilis Serology Non-reactive (NONREACTIVE) 01/06/20 09:15 COVID-19 (YOUNG) Not detected (Not Detected) 01/06/20 12:00 Assessment: 01/08/20 16:09 withdrawal symptom Plan: continue detox methadone and librium regimen
[2020-01-08 13:25] VITALS: BP 111/75; PULSE 83; TEMP 97.5
--- NOTE | 2020-01-08 17:00 | DS ---
[facility] Detox Discharge Summary Admission Date: 01/06/20 Discharge Date: 01/08/20 - History Additional Comments: Patient is leaving against medical advice. Patient reports, "I am good now and I want to go home" He is unable to give specific reason for leaving and he has left against medical advice previously. Risks and consequences of his action reinforced and patient verbalized understanding of instructions. He is alert and oriented x 3, in no acute distress, ambulates independently and vital signs stable. Pertinent Past History: Alcohol dependence Opioid dependence History of a fall Hypertension Asthma COPD acute respiratory failure Hyperlipidemia Diabetes Anemia Pneumonia Sleep apnea - Physical Exam Results Vital Signs: Vital Signs Temperature 97.5 F L 01/08/20 12:38 Pulse Rate 83 01/08/20 12:38 Respiratory Rate 18 01/08/20 12:38 Blood Pressure 111/75 01/08/20 12:38 O2 Sat by Pulse Oximetry (%) 95 01/08/20 12:38 Laboratory Last Values WBC 9.7 K/mm3 (4.0-10.0) 01/06/20 09:15 RBC 4.93 M/mm3 (4.00-5.60) 01/06/20 09:15 Hgb 12.5 GM/dL (11.7-16.9) 01/06/20 09:15 Hct 39.3 % (35.4-49) 01/06/20 09:15 MCV 79.6 fl (80-96) L 01/06/20 09:15 MCH 25.3 pg (25.7-33.7) L 01/06/20 09:15 MCHC 31.8 g/dl (32.0-35.9) L 01/06/20 09:15 RDW 15.6 % (11.9-15.9) 01/06/20 09:15 Plt Count 296 K/MM3 (134-434) 01/06/20 09:15 MPV 7.7 fl (7.5-11.1) 01/06/20 09:15 Sodium 138 mmol/L (136-145) 01/06/20 09:15 Potassium 4.0 mmol/L (3.5-5.1) 01/06/20 09:15 Chloride 103 mmol/L (98-107) 01/06/20 09:15 Carbon Dioxide 29 mmol/L (21-32) 01/06/20 09:15 Anion Gap 6 MMOL/L (8-16) L 01/06/20 09:15 BUN 13.2 mg/dL (7-18) 01/06/20 09:15 Creatinine 0.8 mg/dL (0.55-1.3) 01/06/20 09:15 Est GFR (CKD-EPI)AfAm 122.43 01/06/20 09:15 Est GFR (CKD-EPI)NonAf 105.63 01/06/20 09:15 Random Glucose 107 mg/dL (74-106) H 01/06/20 09:15 Calcium 8.7 mg/dL (8.5-10.1) 01/06/20 09:15 Total Bilirubin 1.3 mg/dL (0.2-1) H 01/06/20 09:15 AST 10 U/L (15-37) L 01/06/20 09:15 ALT 15 U/L (13-61) 01/06/20 09:15 Alkaline Phosphatase 102 U/L (45-117) 01/06/20 09:15 Total Protein 7.0 g/dl (6.4-8.2) 01/06/20 09:15 Albumin 3.6 g/dl (3.4-5.0) 01/06/20 09:15 Syphilis Serology Non-reactive (NONREACTIVE) 01/06/20 09:15 COVID-19 (YOU[facility]) Not detected (Not Detected) 01/06/20 12:00 Pertinent Admission Physical Exam Findings: Heroin withdrawal symptom Alcohol withdrawal syndrome - Medication Discharge Medications: Ambulatory Orders Albuterol Sulfate Inhaler - [Ventolin HFA Inhaler -] 1 - 2 inh PO QID PRN #1 inhaler 05/23/18 Budesonide/Formeterol Fumarate [SYMBICORT 160/4.5mcg -] 2 puff IH BID 01/06/20 - Diagnosis (1) Alcohol dependence with uncomplicated withdrawal Current Visit: Yes Status: Chronic (2) History of fall Current Visit: Yes Status: Chronic (3) Opioid dependence with withdrawal Current Visit: Yes Status: Chronic (4) Acute respiratory acidosis Current Visit: No Status: Chronic (5) Anemia Current Visit: Yes Status: Chronic (6) Asthma exacerbation Current Visit: Yes Status: Chronic Qualifiers: Asthma severity: moderate Asthma persistence: unspecified Qualified Code(s): J45.901 - Unspecified asthma with (acute) exacerbation (7) COPD exacerbation Current Visit: Yes Status: Chronic (8) Cellulitis Current Visit: Yes Status: Chronic Qualifiers: Site of cellulitis: extremity Site of cellulitis of extremity: lower ex tremity Laterality: unspecified laterality Qualified Code(s): L03.119 - Cellulitis of unspecified part of limb (9) Diabetes Current Visit: Yes Status: Chronic (10) HTN (hypertension) Current Visit: Yes Status: Chronic (11) Hyperlipidemia Current Visit: Yes Status: Chronic (12) Pneumonia Current Visit: Yes Status: Chronic (13) Sleep apnea Current Visit: Yes Status: Chronic (14) Asthma Current Visit: Yes Status: Chronic Qualifiers: (15) Nicotine dependence Current Visit: No Status: Chronic Qualifiers: Nicotine product type: cigarettes Substance use status: uncomplicated Qualified Code(s): F17.210 - Nicotine dependence, cigarettes, uncomplicated - AMA Did Patient Leave Against Medical Advice: Yes
[2020-01-09] MEDS ORDERED: chlordiazePOXIDE HCL 10 MG CAPSULE PO PRN
[2020-01-09] MEDS ORDERED: chlordiazePOXIDE HCL 10 MG CAPSULE PO SCH (05:00)
[2020-01-09] MEDS ORDERED: METHADONE (DETOX) 10 MG, METHADONE (DETOX) 5 MG PO ONE (10:00)
[2020-01-10] MEDS ORDERED: chlordiazePOXIDE HCL 10 MG CAPSULE PO SCH (05:00)
[2020-01-10] MEDS ORDERED: METHADONE HCL 10 MG TABLET (FOR DETOX USE ONLY) PO ONE (10:00)
[2020-01-11] MEDS ORDERED: chlordiazePOXIDE HCL 10 MG CAPSULE PO ONE (05:00)
[2020-01-11] MEDS ORDERED: METHADONE HCL 5 MG TABLET (FOR DETOX USE ONLY) PO ONE (06:00)
== END 2020-01-08 16:50 | disposition left against medical advice (07) | DRG 770 ==
LOC: YASAS 08:22 → Y3N 09:31
PROVIDERS: ADMIT Allergy & Immunology; ATTEND Allergy & Immunology
PROC: HZ2ZZZZ Detoxification Services for Substance Abuse Treatment (ICD-10-PCS; principal; 2020-01-06)
DX: F10.230 Alcohol dependence with withdrawal, uncomplicated (principal); F11.23 Opioid dependence with withdrawal; F14.20 Cocaine dependence, uncomplicated; F17.210 Nicotine dependence, cigarettes, uncomplicated; D64.9 Anemia, unspecified; I10 Essential (primary) hypertension; E11.9 Type 2 diabetes mellitus without complications; E78.5 Hyperlipidemia, unspecified; G47.39 Other sleep apnea; Z91.81 History of falling; J44.9 Chronic obstructive pulmonary disease, unspecified; J45.998 Other asthma; Z87.01 Personal history of pneumonia (recurrent)
CPT/HCPCS: 36415; 80053; 85027; 86780; 93005; 93010; 94640; U0003

== ENCOUNTER 2020-01-13 17:20 | Inpatient (IN) | payer OTHER ==
[2020-01-13] MEDS ORDERED: DEXAMETHASONE SOD PHOSPHATE 10 MG/1 ML VIAL IM ONE (17:57)
[2020-01-13] MEDS: ALBUTEROL SO4 0.083% IH SOL 2.5 MG/3 ML VIAL.NEB. NEB SCH ×4 (18:00→18:57)
--- NOTE | 2020-01-13 18:12 | PDOC ---
History of Present Illness - General Chief Complaint: Shortness of Breath Stated Complaint: DIFFICULTY BREATHING Time Seen by Provider: 01/13/20 17:38 History Source: Patient Exam Limitations: Clinical Condition (shortness of breath) - History of Present Illness Initial Comments: 01/13/20 18:08 Limited hx 2/2 respiratory distress 49M PMH polysubstance abuse (heroin, cocaine, EtOH, everyday smoker), asthma, COPD, HTN presenting with 1 day of shortness of breath that started when he woke up today. endorses snorted heroin this morning. Pt is frequently seen in this ED for respiratory complaints. AGUILAR. PCP Roxy Yanez. +chills Past History - Medical History Allergies/Adverse Reactions: Allergies Allergy/AdvReac Type Severity Reaction Status Date / Time No Known Allergies Allergy Verified 01/13/20 17:47 Home Medications: Ambulatory Orders Albuterol Sulfate Inhaler - [Ventolin HFA Inhaler -] 1 - 2 inh PO QID PRN #1 inhaler 05/23/18 Budesonide/Formeterol Fumarate [SYMBICORT 160/4.5mcg -] 2 puff IH BID 01/06/20 Anemia: No Asthma: Yes Cancer: No Cardiac Disorders: No CVA: No COPD: No CHF: No DVT: No Dementia: No Diabetes: No GI Disorders: No Disorders: No HTN: Yes Hypercholesterolemia: No Kidney Stones: No Liver Disease: No Seizures: No Thyroid Disease: No - Surgical History Abdominal Surgery: No Appendectomy: No Cardiac Surgery: No Cholecystectomy: No Lung Surgery: No Neurologic Surgery: No Orthopedic Surgery: No - Reproductive History Testicular Surgery: No - Immunization History Td Vaccination: Yes Immunization Up to Date: Yes - Psycho-Social/Smoking History Smoking Status: Yes Smoking History: Current every day smoker Years of Tobacco Use: 40 Have you smoked in the past 12 months: Yes Number of Cigarettes Smoked Daily: 20 If you are a former smoker, when did you quit?: 2017 Cigars Per Day: 0 Information on smoking cessation initiated: No 'Breaking Loose' booklet given: 01/06/20 - Substance Abuse Hx (Audit-C & DAST Scrn) How often the patient has a drink containing alcohol: Monthly or less Score: In Men: 4 or > Positive; In Women: 3 or > Positive: 1 Screen Result (Pos requires Nsg. Audit-10AR): Negative In the last yr the pt used illegal drug/Rx for NonMed reason: No Score: Yes response is considered Positive: 0 Screen Result (Positive result requires Nsg. DAST-10): Negative Review of Systems - Review of Systems Able to Perform ROS?: No Comments:: limited 2/2 respiratory distress endorses chills and cough *Physical Exam - Vital Signs Last Vital Signs Temp Pulse Resp BP Pulse Ox 98.6 F 121 H 32 H 169/89 91 L 01/13/20 17:44 01/13/20 17:44 01/13/20 17:44 01/13/20 17:44 01/13/20 17:44 - Physical Exam GEN: Moderate distress. AAOx3. HEENT: NC/AT, EOMI, PERRL. No facial asymmetry. Moist mucous membranes. Normal voice. Supple neck w/ FROM. CV: S1/S2, RRR, no m/r/g LUNG: tachypnic, increased WOB, diffuse wheezing and poor air entry throughout. GI: Soft, ndnt, +BS, no guarding, no rebound. MSK: No obvious deformities of all extremities. SKIN: Warm, dry, no rashes appreciated. PSYCH: Normal mood and affect. NEURO: Moving all extremities ED Treatment Course - LABORATORY CBC & Chemistry Diagram: 01/16/20 05:49 01/16/20 05:49 Medical Decision Making - Medical Decision Making 49M with SOB since this AM, endorses snorting heroin today. Seen in this ED frequently for similar presentation. Likely Asthma exacerbation possibly 2/2 intranasal drug use; eval for infection. cbc, cmp, cardiac, [facility] shelter monitor ekg cxr nebs and steroid closely monitor and reassess admit 01/13/20 18:35 EKG 18:29 HR 108 NSR tachycardia axis and intervals nl, TWI V2, no BEHZAD/D 01/13/20 20:31 labs were reviewed CXR showing hyperinflation pt saturating in high 90s on NC will order one more duoneb as pt is still tight pt was endorsed to Dr. Diaz for admission Discharge - Discharge Information Problems reviewed: Yes Clinical Impression/Diagnosis: Shortness of breath Asthma exacerbation Qualifiers: Asthma severity: moderate Asthma persistence: persistent Qualified Code(s): J45.41 - Moderate persistent asthma with (acute) exacerbation Condition: Fair - Admission Yes - Follow up/Referral - Patient Discharge Instructions - Post Discharge Activity
--- NOTE | 2020-01-13 18:14 | PDOC ---
Documentation entered by Lucius Butt SCRIBE, acting as scribe for Lori Quinteros MD. Lori Quinteros MD: This documentation has been prepared by the scribe, Lucius Cohen SCRIBE, under my direction and personally reviewed by me in its entirety. I confirm that the documentation accurately reflects all work, treatment, procedures, and medical decision making performed by me. Attending Attestation - Resident Resident Name: Margaret Stone - ED Attending Attestation I have performed the following: I have examined & evaluated the patient, The case was reviewed & discussed with the resident, I agree w/resident's findings & plan, Exceptions are as noted - HPI HPI: 01/13/20 17:57 49 yo male p/w diffuse expiratory wheezing ,he has had wheezing since for 4pm. The patient is a 49 year old male with a significant past medical history of polysubstance abuse (heroin, cocaine, EtOH, everyday smoker), asthma, COPD, HTN, and frequent ER visits with COPD exacerbation who presents to the emergency depa rtment for evaluation of shortness of breath and wheezing that began two hours ago when he woke up. He reports taking his rescue inhaler to no relief.The patient reports leaving [facility] against medical advice 01/08/2020. The patient denies chest/abdominal/back pain, cough, fever, chills, nausea, vomiting, and/or any GI symptoms. Denies any symptoms. Denies any other symptoms. Allergies: NKA Social Hx: polysubstance abuse (heroin, cocaine, EtOH, everyday smoker) Primary Care Physician: Dr. Roxy Yanez 01/13/20 18:13 - Physicial Exam PE: 01/13/20 17:38 GENERAL: Well developed, well nourished.,tachycardic ,diaphoretic in mild distress with diffuse expiratory wheezing HEENT: Normocephalic, atraumatic. PERRLA, EOMI. No conjunctival pallor. Sclera are non- icteric. Moist mucous membranes. Oropharynx is clear. NECK: Supple. Full ROM. No JVD. Carotid pulses 2+ and symmetric, without bruits. No thyromegaly. No lymphadenopathy. CARDIOVASCULAR: Regular rate and rhythm. No murmurs, rubs, or gallops. Distal pulses are 2+ and symmetric. PULMONARY: Diffuse bilateral wheezing ABDOMINAL: Soft. Non-tender. Non-distended. No rebound or guarding. No organomegaly. Normoactive bowel sounds. MUSCULOSKELETAL: Normal range of motion at all joints. No bony deformities or tenderness. EXTREMITIES: No cyanosis. No clubbing. No edema. No calf tenderness. SKIN: Warm and dry. NEUROLOGICAL: Alert, awake, appropriate. No gross focal neuro deficits PSYCHIATRIC: Cooperative. Good eye contact. Appropriate mood and affect. 01/13/20 18:40 - Medical Decision Making 01/13/20 18:13 Pt is hypoxic,tachycardia and tachypnic Respiratory treatment initiated 01/13/20 18:39 sinus tachycardia @ 108 bpm 01/13/20 20:03 pt requires admission for asthma exacerbation Discharge - Discharge Information Problems reviewed: Yes Clinical Impression/Diagnosis: Shortness of breath Asthma exacerbation Qualifiers: Asthma severity: moderate Asthma persistence: persistent Qualified Code(s): J45.41 - Moderate persistent asthma with (acute) exacerbation - Follow up/Referral - Patient Discharge Instructions - Post Discharge Activity
[2020-01-13] MEDS ORDERED: DEXAMETHASONE SOD PHOSPHATE 10 MG/1 ML VIAL ONE (18:18)
[2020-01-13] MEDS ORDERED: ALBUTEROL SO4 2.5/IPRATROPIUM 0.5 INH SOL 3 ML VIAL.NEB. NEB ONE (18:18)
[2020-01-13 18:35] LABS: BASO % 0.7 % (0-2.0); EOS % 5.1 % (0-4.5); HEMATOCRIT 39.4 % (35.4-49); HEMOGLOBIN 12.5 GM/dL (11.7-16.9); LYMPH % 13.5 % (8-40); MCH 25.5 pg (25.7-33.7); MCHC 31.7 g/dl (32.0-35.9); MEAN CELL VOLUME 80.6 fl (80-96); MEAN PLT VOLUME 7.8 fl (7.5-11.1); MONO % 5.2 % (3.8-10.2); NEUT % 75.5 % (42.8-82.8); PLATELET COUNT 295 K/MM3 (134-434); RBC 4.89 M/mm3 (4.00-5.60); RDW 15.3 % (11.9-15.9); VENOUS BASE EXCESS -3.4 mmol/L (-2-2); VENOUS O2 SATURATION 24.3 % (70-80); VENOUS PCO2 61.3 mmHg (38-52); VENOUS PH 7.231 (7.310-7.410)
[2020-01-13] MEDS ORDERED: MAGNESIUM SULF 50% (8.12 MEQ/2 ML-1 GM VIAL) IVPB ONE (18:38)
[2020-01-13 19:03] LABS: ALBUMIN 3.7 g/dl (3.4-5.0); BILIRUBIN,TOTAL 0.3 mg/dL (0.2-1); BLOOD UREA NITROGEN 17.8 mg/dL (7-18); POTASSIUM 4.1 mmol/L (3.5-5.1); TOT PROT 7.4 g/dl (6.4-8.2)
--- OUTSIDE RECORDS SUMMARY | 2020-01-13 20:24 | XMS ---
:1970 Author Organization [facility] Care Team Providers Name Role Phone Reymundo Verde MD Unavailable Unavailable MD Fernando Unavailable Unavailable SARAH DILLARD Unavailable Unavailable MD Marilia Unavailable Unavailable MD NATALIE Unavailable Unavailable ED STAFF PHYSICIAN Unavailable Unavailable MD IAN Unavailable Unavailable EMERGENCY SERVICE, X Unavailable Unavailable ED STAFF PHYSICIAN Unavailable Unavailable [facility] Unavailable Unavailable MD Guevara Unavailable Unavailable ED [...] is protected by Article 27-F of the [facility] Public Health law. If you continue you may haveaccess to information: Regarding HIV / AIDS; Provided by facilities licensed or operated by the [facility] Office of Mental Health; or Provided by the [facility] Office for People With Developmental Disabilities. If such information is present, then the following [facility] mandated warning applies: This information has been [...] law may result in a fine or shelter sentence or both. A general authorization for the release of medical or other information is NOT sufficient authorization for further disclosure. Allergies and Adverse Reactions Type Description Substance Reaction Status Data Source(s ) Drug allergy No Known Allergies No Known Allergies none [facility] Encounters Encounter Providers Location Date Indications Data Source(s ) Emergency Attender: YOLANDA ED H 09/21/2019 [facility] STAFF 04:35:00 PM EDT Medical C enter PHYSICIANAttender: - 09/21/2019 STAFF ED STAFF 06:39:00 PM EDT PHYSICIANAdmitter: [facility] ED STAFF PHYSICIAN Patient discharged. Emergency Attender: ED STAFF H 07/27/2019 04:09:00 PM [facility] PHYSICIANAttender: [facility] ED EDT - 07/27/2019 [facility] STAFF PHYSICIANAttender: STAFF 04:44:00 PM EDT ED STAFF PHYSICIANAdmitter: ED STAFF PHYSICIANReferrer: STAFF ED STAFF PHYSICIAN Patient discharged. Emergency Attender: [facility] ED STAFF 07/27/2019 12:15:00 PM [facility] PHYSICIANAttender: STAFF ED EDT - 07/27/2019 [facility] STAFF PHYSICIANAdmitter: YOLANDA 01:35:00 PM EDT ED STAFF PHYSICIAN Patient discharged. Outpatient Attender: [id number] [facility] 06/03/2019 12:25:33 PM [facility] ([facility]) Patient admitted. Emergency Attender: NISHANT 03/11/2019 11:34:00 PAIN [facility] CAROLAttender: EMERGENCY AM EST Health Care SERVICE, XAdmitter: SARAH Pastrana Emergency 11/07/2018 03:57:00 PM [facility] EDT [place] 11/07/2018 12:00:00 AM [facility] EDT - 02/22/2018 Center 12:00:00 AM EST Inpatient Attender: SALLY STV-3N 10/02/2018 05:42:00 PM [facility] LEMUSEZAdmitter: JOSE MIGUEL EDT - 10/16/2018 H osnatalie SOSA 10:31:00 PM EDT Patient admitted. Outpatient STV 10/02/2018 02:01:00 PM EDT - 019 [facility] 06:15:00 PM EDT Patient discharged. Emergency Attender: Del 10/02/2018 SUICIDE IDEATION Wh pema Waterman MDAttender: 05:34:00 AM EDT - [facility] Armani Marilia 10/02/2018 MDConsultant: Liv 01:35:00 PM EDT Fernando FORREST SUICIDE IDEATION AMB-EMPRESS Patient discharged. Emergency Attender: Reymundo 10/01/2018 11:25:00 ASTHMA W nayan Verde MD PM EDT - 10/02/2018 [facility] 04:27:00 AM EDT ASTHMA ARR-EMPRESS Patient discharged. Emergency H 09/21/2018 12:52:00 AM EDT [facility] Emergency H 09/14/2018 07:28:00 PM EDT [facility] Outpatient 08/19/2018 01:25:09 PM EDT [facility]) Outpatient 08/19/2018 01:25:05 PM EDT [facility] Emergency H 05/30/2018 05:30:00 PM EST [facility] Emergency H 03/05/2018 12:00:00 AM [facility] [...] HFA 108 06/29/2016 999 UNK completed ProA [place] (90 Base) MCG/A 06:20:53 PM [place] EDT [facility] ([employer] ) MCG/ ACT Inha lati on Aero rhonda Solu tion INHA LE 1 TO 2 PUFF S EVER Y 4 TO 6 HOUR S NEED ED. Disp ense : 1 Prednisone 20 PredniSONE 06/29/2016 999 UNK completed Pred [place] MG Oral Tablet 20 MG Oral 06:20:53 PM MG [facility] PredniSONE 20 Tablet EDT [facility] Care MG Oral Tablet 20 Corpo ration MG Oral Tabl et TAKE 3 TABL ETS IN THE MORN ING. Disp ense : 12 Prednisone 20 PredniSONE 06/14/2015 999 UNK completed Pred [place] MG Oral Tablet 20 MG Oral 08:58:36 PM MG [facility] PredniSONE 20 Tablet EST [facility] Care MG Oral Tablet 20 Corpo ration MG Oral Tabl et 1 tab po BID x 4 days Disp ense : 8 Albuterol 06/14/2015 999 UNK completed Albu [place] Sulfate (2.5 08:58:[address] MG/3ML) EST [facility] [employer] ate (2.5 MG/3 ML) 0.08 3% Inha lati [facility] Solu tion USE 1 UNIT DOSE IN [facility] EVER Y 4 HOUR S NEED ED. Disp ense : 15 Albuterol Albuterol AERO 2 RESPIRAT completed [facility] RHONDA ORY [place] [facility] ([facility]) Prednisone 20 Prednisone TABL 60 ORAL completed [facility] MG Oral Tablet ET mg [facility] Prednisone 20 Prednisone TABL 40 ORAL completed [facility] MG Oral Tablet ET mg [facility] Prednisone 20 Prednisone TABL 60 ORAL completed [facility] MG Oral Tablet ET mg [facility] Prednisone 20 predniSONE 2 completed [...] AERO 2 RESPIRAT completed [facility] RHONDA ORY [place] [facility] ([facility] TION ION) 200 ACTUAT albuterol 2 completed [facility] Albuterol 0.09 sulfate enti Mirella sephs MG/ACTUAT [...] breath 28 ACTUAT tiotropium- 999 inhalati completed [facility] olodaterol olodaterol MG on ropi Cou nty 0.0025 [facility] MG/ACTUAT / loda Corporat ion tiotropium tero 0.0025 l MG/ACTUAT Metered Dose Inhaler [Stiolto] tiotropium-olod aterol Prednisone 20 predniSONE 2 completed Saint MG Oral Tablet 20 mg [facility] predniSONE 20 Tablet, Med ical mg Tablet, Ordered By: Ce nter Ordered By: Beau Lincoln Dr.Directions: 2 tablet oral ns: 2 daily tablet oral daily 200 ACTUAT albuterol 999 inhalati completed [facility] Albuterol 0.09 MG on tero Count y [...] completed [facility] MG Oral Tablet ET mg [facility] Albuterol Albuterol AERO 2 RESPIRAT completed [facility] ([facility]) Prednisone 20 predniSONE 2 completed [facility] MG Oral Tablet 20 mg [facility] predniSONE 20 Tablet, Med ical mg Tablet, Ordered By: Beth nter Ordered By: Beau Lincoln, MDDirections: 2 MDDirection tablet oral s: 2 tablet daily oral daily Prednisone 20 predniSONE 2 completed [facility] MG Oral Tablet 20 mg [facility] predniSONE 20 TabletDirec Medical mg tions: 2 Center TabletDirection tablet oral s: 2 tablet daily oral daily 200 ACTUAT albuterol 2 completed [facility] Albuterol 0.09 sulfate 90 Dasia [...] breath brclomethasone brclomethas 999 inhaler discontinued brcl [place] one MG [facility] Albuterol Albuterol AERO 2 RESPIRAT completed [facility] ([facility]) Insurance Providers Payer name Policy type Policy ID Covered Covered alliance party's Policy P judson / Coverage alliance party ID relationship to [employer] Inf ormation type sarmiento [facility] MED[facility] [id number] SP [id number] O [facility] MED[facility] [id number] SP [id number] [facility] MEDICAID [id number] SP [id number] W [id number] 01 [id number] PENDING [id number] EXCHANGE SELF PAY SP INSURANCE [facility] O [id number] 01 [id number] 600 MEDICAID [id number] SP [id number] UNK [id number] [facility] MEDICAID [id number] SP [id number] HMO [place] [id number] SP [id number] HEALTH-MVP SELF PAY 0000 Self 0000 MEDICAID INP [id number] Self [id number] U [facility] [id number] Self [id number] 600 [facility] [id number] PT [id number] [facility] [id number] PT [id number] [facility] [place] [id number] SP [id number] HEALTH-MVP MVP/HHP O [id number] 01 [id number] Problems, Conditions, and Diagnoses Code Display Name Description Problem Type Effective Data Sour ce(s) Dates 845732283 Sedative, Sedative, Complaint 10/02/2018 [facility] hypnotic AND/OR hypnotic AND/OR 12:00:00 PM Hos pital anxiolytic-relate anxiolytic-relate EDT d disorder d disorder (disorder) 58588099 Cocaine abuse Cocaine abuse Complaint 10/02/2018 [facility] ([facility]order[facility] 12:00:00 PM Hospital EDT 5076660 Opioid abuse Opioid abuse Complaint 10/02/2018 [facility] (disorder) 12:00:00 PM Hospital EDT 31889548 Depressive Depressive Complaint 10/02/2018 [facility] disorder disorder 12:00:00 PM Hospital (disorder) EDT 889902346 Sedative, Sedative, Complaint 10/02/2018 [facility] hypnotic AND/OR hypnotic AND/OR 12:00:00 PM Hos pital anxiolytic-relate anxiolytic-relate EDT d disorder d disorder (disorder) 83394246 Cocaine abuse Cocaine abuse Complaint 10/02/2018 [facility] (disorder) 12:00:00 PM Hospital EDT 5791161 Opioid abuse Opioid abuse Complaint 10/02/2018 [facility] (disorder) 12:00:00 PM Hospital EDT 80823503 Depressive Depressive Complaint 10/02/2018 [facility] disorder disorder 12:00:00 PM Hospital (disorder) EDT 519699848 Sedative, Sedative, Complaint 10/02/2018 [facility] hypnotic AND/OR hypnotic AND/OR 12:00:00 PM Hos pital anxiolytic-relate anxiolytic-relate EDT d disorder d disorder (disorder) 39239234 Cocaine abuse Cocaine abuse Complaint 10/02/2018 [facility] (disorder) 12:00:00 PM Hospital EDT 8513906 Opioid abuse Opioid abuse Complaint 10/02/2018 [facility] (disorder) 12:00:00 PM Hospital EDT 16181031 Depressive Depressive Complaint 10/02/2018 [facility] [...] UNCOMPLICATED EDT R06.00 Dyspnea, DYSPNEA, Diagnosis 09/21/2019 [facility] unspecified UNSPECIFIED 04:35:[address] EDT F17.210 Nicotine NICOTINE Diagnosis 07/27/2019 [facility] dependence, DEPENDENCE, 04:09:[address] cigarettes, CIGARETTES, EDT uncomplicated UNCOMPLICATED F19.10 Other OTHER Diagnosis 07/27/2019 [facility] psychoactive PSYCHOACTIVE 04:09:00 PM Medical C enter substance abuse, SUBSTANCE ABUSE, EDT uncomplicated UNCOMPLICATED F91.9 Conduct disorder, CONDUCT DISORDER, Diagnosis 07/27/2019 [facility] unspecified UNSPECIFIED 04:09:[address] EDT J45.909 Unspecified UNSPECIFIED Diagnosis 03/11/2019 [place] asthma, ASTHMA, 11:34:00 AM [facility] R06.2 Wheezing WHEEZING Diagnosis 03/11/2019 [place] 11:34:00 AM [facility] R53.1 Weakness WEAKNESS Diagnosis 11/07/2018 [facility] 03:57:00 PM Medical Cente r EDT F32.9 Major depressive Major depressive Diagnosis 10/16/2018 [facility] disorder, single disorder, single 04:06:00 PM H ospital episode, episode, EDT unspecified unspecified J45.909 Unspecified J45.909 Diagnosis 10/02/2018 [place] asthma, 05:53:00 AM Hospital uncomplicated EDT G89.29 Other chronic G89.29 Diagnosis 10/02/2018 [place] [facility] pain 05:53:00 AM Hospital EDT R45.851 Suicidal R45.851 Diagnosis 10/02/2018 [place] ideations 05:53:00 AM Hospital EDT 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 10/02/2018 [place] disorder, 05:53:00 AM Hospital unspecified EDT F14.10 Cocaine abuse, F14.10 Diagnosis 10/02/2018 [place] uncomplicated 05:53:00 AM Hospital EDT F11.10 Opioid abuse, F11.10 Diagnosis 10/02/2018 [place] uncomplicated 05:53:00 AM Hospital EDT F32.9 Major depressive F32.9 Diagnosis 10/02/[address] [place] disorder, single 05:53:00 AM Hospita l episode, EDT unspecified J45.901 Unspecified J45.901 Diagnosis 10/01/2018 [place] asthma with 11:49:00 PM Hospital (acute) EDT exacerbation Z72.0 Tobacco use TOBACCO USE Diagnosis 09/21/2018 [place] [facility] 12:52:00 AM Medical Cente r EDT J98.01 Acute ACUTE Diagnosis 09/21/2018 [facility] bronchospasm BRONCHOSPASM 12:52:00 AM Medical C enter EDT R07.9 Chest pain, CHEST PAIN, Diagnosis 09/21/2018 [place] s unspecified UNSPECIFIED 12:52:[address] EDT R06.2 Wheezing WHEEZING Diagnosis 05/30/2018 [facility] 05:30:00 PM Medical Cente r EST Results ID Date Data Source [id number] 01/06/2020 12:00:00 PM EDT [facility] Name Value Range Interpretation Description Data Sup porting Code Source(s) Document(s ) SARS [facility] coronavirus 2 RNA This lab was ordered by [facility] and reported by [facility]. ID Date Data Source [id number] 09/07/2019 12:25:00 AM EDT [facility] Name Value Range Interpretation Description Data Sup porting Code Source(s) Document(s ) SARS [facility] CORONAVIRUS 2 RNA This lab was ordered by [facility] and reported by [facility]. ID Date Data Source [id number] 08/25/2019 10:40:00 AM EDT [facility] Name Value Range Interpretation Description Data Sup porting Code Source(s) Document(s ) SARS [facility] CORONAVIRUS 2 RNA This lab was ordered by [facility] and reported by [facility]. ID Date Data Source [id number] 10/02/2018 06:04:00 AM EDT [facility] CUT-OFF >= 25 NG/ML.THE FINDINGS OF THE [...] rce(s) Supporting Document(s ) PCP (UR) NEGATIVE [facility] ID Date Data Source [id number] 10/02/2018 06:04:00 AM EDT [facility] CUT-OFF >= 50 NG/ML. Name Value Range Interpretation Code Description Data Katya rce(s) Supporting Document(s ) THC (UR) NEGATIVE [facility] ID Date Data Source [id number] 10/02/2018 06:04:00 AM EDT [facility] CUT-OFF >= 300 NG/ML. Name Value Range Interpretation Description Data Sup porting Code Source(s) Document(s ) OPIATES (UR) POSITIVE [facility] ID Date Data Source [id number] 10/02/2018 06:04:00 AM EDT [facility] CUT-OFF >= 300 NG/ML. Name Value Range Interpretation Description Data Sup porting Code Source(s) Document(s ) COCAINE (UR) POSITIVE [facility] ID Date Data Source [id number] 10/02/2018 06:04:00 AM EDT [facility] CUT-OFF >= 200 NG/ML. Name Value Range Interpretation Description Data Sup porting Code Source(s) Document(s ) BENZODIAZEPINES POSITIVE [place] (UR) [facility] ID Date Data Source [id number] 10/02/2018 06:04:00 AM [facility] CUT-OFF >= 200 NG/ML. Name Value Range Interpretation Description Data Sup porting Code Source(s) Document(s ) BARBITURATES NEGATIVE [place] (UR) Hospital ID Date Data Source [id number] 10/02/2018 06:04:00 AM [facility] CUT-OFF >= 1000 NG/ML. Name Value Range Interpretation Description Data Sup porting Code Source(s) Document(s ) AMPHETAMINES NEGATIVE [place] (UR) Hospital ID Date Data Source [id number] 10/02/2018 06:04:00 AM [facility] REFERENCE RANGES: NONE DETECTED <20 MG/DL NONE TO MILD EUPHORIA 20-49 MG/DL MILD EUPHORIA 50-99 MG/DL MODERATE EUPHORIA 100-149 MG/DL INTOXICATION 150-300 MG/DL Name Value Range Interpretation Description Data Sup porting Code Source(s) Document(s ) Ethanol < 20 [place] [Mass/volume mg/dL [facility] ] in Serum or Plasma ID Date Data Source [id number] 10/02/2018 06:04:00 AM [facility] TEST RESULT IS A TOTAL TRICYCLIC VALUE.T [...] Code Source(s) Document(s ) TRICYCLIC < 80 [place] ANTIDEPRESSANT ng/mL Hospital ID Date Data Source [id number] 10/02/2018 06:04:00 AM [facility] REFERENCE RANGES: ANALGESIC: 0.0 - 10.0 MG/DL. ARTHRITIC THERAPY: 15.0 - 30.0 MG/DL. Name Value Range Interpretation Description Data Sup porting Code Source(s) Document(s ) Salicylates < 3.0 [place] [Mass/volume] mg/dL Hospital in Serum or Plasma ID Date Data Source [id number] 10/02/2018 06:04:00 AM [facility] THERAPEUTIC RANGE: 10.0-30.0 UG/MLTOXIC RANGE: 4 HRS AFTER INGESTION >150 UG/ML 12 HRS AFTER INGESTION >35 UG/ML Name Value Range Interpretation Description Data Sup porting Code Source(s) Document(s ) ACETAMINOPHEN < 10.0 [place] ug/mL Hospital ID Date Data Source [id number] 10/02/2018 06:04:00 AM [facility] Name Value Range Interpretation Code Description Data Katya rce(s) Supporting Document(s ) Lipase 21 U/L [place] [Enzymatic Hospital activity/vo lume] in Serum or Plasma ID Date Data Source [id number] 10/02/2018 06:04:00 AM [facility] Name Value Range Interpretation Description Data Sup porting Code Source(s) Document(s ) Aspartate 12 U/L [place] aminotransferase [place] [Enzymatic Hospital activity/volume] in Serum or Plasma ID Date Data Source [id number] 10/02/2018 06:04:00 AM [facility] Name Value Range Interpretation Description Data Sup porting Code Source(s) Document(s ) Alanine 14 U/L [place] aminotransferase [place] [Enzymatic Hospital activity/volume] in Serum or Plasma ID Date Data Source [id number] 10/02/2018 06:04:00 AM [facility] Name Value Range Interpretation Description Data Sup porting Code Source(s) Document(s ) Alkaline 79 U/L [place] phosphatase Hospital [Enzymatic activity/volume ] in Serum or Plasma ID Date Data Source [id number] 10/02/2018 06:04:00 AM EDT [facility] Name Value Range Interpretation Description Data Sup porting Code Source(s) Document(s ) Bilirubin.t 0.3 mg/dL [facility] [Mass/volum e] in Serum or Plasma ID Date Data Source [id number] 10/02/2018 06:04:00 AM EDT [facility] Name Value Range Interpretation Code Description Data Katya rce(s) Supporting Document(s ) Albumin/Glob 1.8 [place] ulin [Mass Hospital Ratio] in Serum or Plasma ID Date Data Source [id number] 10/02/2018 06:04:[address] [facility] Value Range Interpretation Description Data Sup porting Code Source(s) Document(s ) Albumin 4.4 g/dL [place] [Mass/volume Hospital ] in Serum or Plasma ID Date Data Source [id number] 10/02/2018 06:04:00 AM EDT [facility] Name Value Range Interpretation Description Data Sup porting Code Source(s) Document(s ) Protein 6.9 g/dL [place] [Mass/volume Hospital ] in Serum or Plasma ID Date Data Source [id number] 10/02/2018 06:04:00 AM EDT [facility] Name Value Range Interpretation Description Data Sup porting Code Source(s) Document(s ) Calcium 9.1 mg/dL [place] [Mass/volume Hospital ] in Serum or Plasma ID Date Data Source [id number] 10/02/2018 06:04:00 AM EDT [facility] Name Value Range Interpretation Code Description Data Katya rce(s) Supporting Document(s ) Urea 17.5 [place] nitrogen/Cre Hospital atinine [Mass Ratio] in Serum or Plasma ID Date Data Source [id number] 10/02/2018 06:04:00 AM EDT [facility] Name Value Range Interpretation Description Data Sup porting Code Source(s) Document(s ) Creatinine 0.8 mg/dL [place] [Mass/volume] Hospital in Serum or Plasma ID Date Data Source [id number] 10/02/2018 06:04:00 AM EDT [facility] Name Value Range Interpretation Description Data Sup porting Code Source(s) Document(s ) Urea 14 mg/dL [place] nitrogen Hospital [Mass/volume ] in Serum or Plasma ID Date Data Source [id number] 10/02/2018 06:04:00 AM EDT [facility] Name Value Range Interpretation Code Description Data Katya rce(s) Supporting Document(s ) Anion gap in 13 [place] Serum or Hospital Plasma ID Date Data Source [id number] 10/02/2018 06:04:00 AM EDT [facility] Name Value Range Interpretation Description Data Sup porting Code Source(s) Document(s ) Carbon 22 mmol/L [place] dioxide, Hospital total [Moles/volu me] in Serum or Plasma ID Date Data Source [id number] 10/02/2018 06:04:00 AM EDT [facility] Name Value Range Interpretation Description Data Sup porting Code Source(s) Document(s ) Chloride 108 [place] [Moles/volum mmol/L Hospital e] in Serum or Plasma ID Date Data Source [id number] 10/02/2018 06:04:00 AM EDT [facility] Name Value Range Interpretation Description Data Sup porting Code Source(s) Document(s ) Potassium 4.3 [place] [Moles/volume mmol/L Hospital ] in Serum or Plasma ID Date Data Source [id number] 10/02/2018 [facility] Value Range Interpretation Description Data Sup porting Code Source(s) Document(s ) Sodium 139 mmol/L [place] [Moles/volu Hospital ks] in Serum or Plasma ID Date Data Source [id number] 10/02/2018 06:04:00 AM EDT [facility] Name Value Range Interpretation Description Data Sup porting Code Source(s) Document(s ) Glucose 135 mg/dL [place] [Mass/volume Hospital ] in Serum or Plasma ID Date Data Source [id number] 10/02/2018 06:04:00 [facility] Value Range Interpretation Code Description Data Katya rce(s) Supporting Document(s ) URINE 0-5 [facility] CASTS ID Date Data Source [id number] 10/02/2018 [facility] Name Value Range Interpretation Description Data Sup porting Code Source(s) Document(s ) Erythrocytes 0-3 [place] [#/area] in /[HPF] Hospital Urine sediment by Automated count ID Date Data Source [id number] 10/02/2018 06:04:00 AM [facility] Value Range Interpretation Description Data Sup porting Code Source(s) Document(s ) Leukocytes 40-60 [place] [#/area] in /[HPF] Hospital Urine sediment by Automated count ID Date Data Source [id number] 10/02/2018 06:04:00 AM [facility] Value Range Interpretation Description Data Sup porting Code Source(s) Document(s ) Leukocyte NEGATIVE [facility] [Presence] in Urine by Test strip ID Date Data Source [id number] 10/02/2018 06:04:00 AM EDT [facility] Name Value Range Interpretation Description Data Sup porting Code Source(s) Document(s ) URINE NEGATIVE [place] NITRITES Hospital ID Date Data Source [id number] 10/02/2018 06:04:00 AM EDT [facility] Name Value Range Interpretation Description Data Sup porting Code Source(s) Document(s ) Erythrocytes NEGATIVE [place] [#/volume] in Hospital Urine by Test strip ID Date Data Source [id number] 10/02/2018 06:04:[address] [facility] Value Range Interpretation Code Description Data Katya rce(s) Supporting Document(s ) Bilirubin. NEGATIVE [place] total Hospital [Presence] in Urine by Test strip ID Date Data Source [id number] 10/02/2018 06:04:00 AM EDT [facility] Name Value Range Interpretation Description Data Sup porting Code Source(s) Document(s ) Urobilinogen 1.0 [place] [Units/volume] mg/dL Hospital in Urine by Test strip ID Date Data Source [id number] 10/02[facility] Name Value Range Interpretation Code Description Data Katya rce(s) Supporting Document(s ) Ketones 1+ [facility] in Urine by Test strip ID Date Data Source [id number] 10/02/2018 06:04:00 AM EDT [facility] Name Value Range Interpretation Description Data Sup porting Code Source(s) Document(s ) Glucose NEGATIVE [facility] in Urine by Test strip ID Date Data Source [id number] 10/02/2018 06:04:00 AM EDT [facility] Name Value Range Interpretation Code Description Data Katya rce(s) Supporting Document(s ) Protein 1+ [facility] in Urine by Test strip ID Date Data Source [id number] 10/02/2018 06:04:00 AM EDT [facility] Name Value Range Interpretation Code Description Data Katya rce(s) Supporting Document(s ) pH of Urine 8.0 [facility] by Test Hospital strip ID Date Data Source [id number] 10/02/2018 06:04:00 AM EDT [facility] Name Value Range Interpretation Code Description Data Supporting Source(s) Document(s ) Specific 1.019 [facility] gravity of [facility] Urine by Test strip ID Date Data Source [id number] 10/02/2018 06:04:00 AM EDT [facility] Name Value Range Interpretation Description Data Sup porting Code Source(s) Document(s ) Clarity in Urine CLEAR [facility] automated ID Date Data Source [id number] 10/02/2018 06:04:00 AM EDT [facility] Name Value Range Interpretation Code Description Data Katya rce(s) Supporting Document(s ) Color of YELLOW [facility] ID Date Data Source [id number] 10/02/2018 06:04:00 AM EDT [facility] Name Value Range Interpretation Description Data Sup porting Code Source(s) Document(s ) Platelet mean 9.6 fL [facility] volume [facility] [Entitic volume] in Blood by Automated count ID Date Data Source [id number] 10/02/2018 06:04:00 AM EDT [facility] Name Value Range Interpretation Description Data Sup porting Code Source(s) Document(s ) Platelets 323 [facility] [#/volume] in 10*3/uL Hospital Blood by Automated count ID Date Data Source [id number] 10/02/2018 06:04:00 AM [facility] Value Range Interpretation Description Data Sup porting Code Source(s) Document(s ) Erythrocyte 13.9 % [facility] Hospital width [Ratio] by Automated count ID Date Data Source [id number] 10/02/2018 06:04:00 AM [facility] Value Range Interpretation Description Data Sup porting Code Source(s) Document(s ) Erythrocyte mean 32.7 [facility] corpuscular g/dL Hospital hemoglobin concentration [Mass/volume] by Automated count ID Date Data Source [id number] 10/02/2018 06:04:00 AM [facility] Value Range Interpretation Description Data Sup porting Code Source(s) Document(s ) Erythrocyte 26.5 pg [facility] corpuscular hemoglobin [Entitic mass] by Automated count ID Date Data Source [id number] 10/02/2018 06:04:00 AM [facility] Value Range Interpretation Description Data Sup porting Code Source(s) Document(s ) Erythrocyte 81.0 fL [facility] corpuscular volume [Entitic volume] by Automated count ID Date Data Source [id number] 10/02/2018 06:04:00 AM [facility] Value Range Interpretation Description Data Sup porting Code Source(s) Document(s ) Hematocrit 34.9 % [facility] [Volume [facility] Fraction] of Blood by Automated count ID Date Data Source [id number] 10/02/2018 06:04:00 AM [facility] Value Range Interpretation Description Data Sup porting Code Source(s) Document(s ) Hemoglobin 11.4 g/dL [facility] in Blood ID Date Data Source [id number] 10/02/2018 06:04:00 AM EDT [facility] Name Value Range Interpretation Description Data Sup porting Code Source(s) Document(s ) Erythrocytes 4.31 [facility] [#/volume] in 10*6/uL Hospital Blood by Automated count ID Date Data Source [id number] 10/02/2018 06:04:00 AM EDT [facility] Name Value Range Interpretation Description Data Sup porting Code Source(s) Document(s ) Leukocytes 6.8 [facility] [#/volume] in 10*3/uL Hospital Blood by Automated count ID Date Data Source [id number] 09/21/2018 03:00:00 AM EDT [facility] 0 Name Value Range Interpretation Description [...] by Test d">Urine Medical strip Specific [facility] [place] </content>1.01 0 L<content styleCode="Suzanne lics"> (1.015-1.025 )</content> Hemoglobin NEGATIVE <content [facility] in styleCode="Kristina Lomelis Urine by Test d">Urine Blood Medical strip </content>NEGA Center TIVE <content styleCode="Suzanne lics"> (NEGATIVE )</content> Ketones NEGATIVE <content [facility] [Mass/volume] styleCode="Kristina Lomelis in Urine by d">Urine Medical Test strip [facility] </content>NEGA TIVE MG/DL<content styleCode="Suzanne lics"> (NEGATIVE MG/DL)</conten t> Protein NEGATIVE <content [facility] [Mass/volume] styleCode="Kristina Dasia [...] HPF)</content> Leukocyte NEGATIVE <content [facility] esterase styleCode="Kristina Lomelis [Presence] in d">Urine Medical Urine by Test Leukocyte Center strip </content>NEGA TIVE <content styleCode="Suzanne lics"> (NEGATIVE )</content> Nitrite NEGATIVE <content [facility] in styleCode="Kristina Lomelis Urine by Test d">Urine Medical strip Nitrite Center </content>NEGA TIVE <content styleCode="Suzanne lics"> (NEGATIVE )</content> UNK 0-3 <content styleCode="Kristina Forman d">Urine Red Medical Blood Cell Center </content>5 - 10 HPF<content styleCode="Suzanne lics"> (0-3 HPF)</content> UNK <content styleCode="Kristina Lomelis d">Epithelial Medical Cell Center </content>2-5 LPF (Reference Range: not available)<br/ > UNK NONE SEEN <content styleCode="Kristina Lomelis d">Urine Mucus Medical </content>MODE Center RATE LPF<content styleCode="Suzanne lics"> (NONE SEEN LPF)</content> ID Date Data Source [id number] 09/21/2018 03:00:00 AM EDT [facility] 400 Name Value Range Interpretation Code Description Data Katya rce(s) Supporting Document(s ) UNK <item><content [facility] styleCode="Bold"> Medical Cent er Culture Report </content>
<t able><tbody><tr>< td>Specimen Number:</td><td>[id number]</td></tr ><tr><td>Sample Collection Date/Time: </td><td>09/21/2018 3:00 AM</td></tr><tr>< td>Specimen Source:</td><td>U RINE</td></tr><tr ><td>Urine Culture:</td><td> Collection Plate Date: 09/21/2018 03:02 </td></tr><tr><td >Culture Status:</td><td>P reliminary </td></tr><tr><td >Culture Report:</td><td>C ulture in progress </td></tr></tbody ></table></item> UNK <item><content [facility] styleCode="Bold"> Medical Cent er Culture Status </content>
<t able><tbody><tr>< td>Specimen Number:</td><td>[id number]</td></tr ><tr><td>Sample Collection Date/Time: </td><td>09/21/2018 3:00 AM</td></tr><tr>< td>Specimen Source:</td><td>U RINE</td></tr><tr ><td>Culture Status:</td><td>P reliminary </td></tr><tr><td >Culture Report:</td><td>C ulture in progress </td></tr><tr><td >Urine Culture:</td><td> Collection Plate Date: 09/21/2018 03:02 </td></tr></tbody ></table></item> ID Date Data Source [id number] 09/14/2018 08:45:00 PM [facility] Name Value Range Interpretation Description Data Sup porting Code Source(s) Document(s ) Color of Urine YELLOW <content [facility] styleCode="Kristina Dasia d">Color, [facility] Urine Center </content>YELL OW <content styleCode="Suzanne lics"> [...] by Test d">Urine Medical strip Specific [facility] [place] </content>>= 1.030 H<content styleCode="Suzanne lics"> (1.015-1.025 )</content> Ketones NEGATIVE <content [facility] [Mass/volume] styleCode="Kristina Lomelis in Urine by d">Urine Medical Test strip [facility] </content>NEGA TIVE MG/DL<content styleCode="Suzanne lics"> (NEGATIVE MG/DL)</conten t> Hemoglobin NEGATIVE <content [facility]] in styleCode="Kristina Lomelis Urine by Test d">Urine Blood Medical strip </content>SMAL Center L <content styleCode="Suzanne lics"> (NEGATIVE )</content> Protein NEGATIVE <content [facility] [Mass/volume] styleCode="Kristina Lomelis in Urine by d">Urine Medical Test strip Protein Center </content>30 MG/DL<content styleCode="Suzanne lics"> (NEGATIVE MG/DL)</conten t> Nitrite NEGATIVE <content [facility]] in styleCode="Kristina Forman Urine by Test d">Urine Medical strip Nitrite [...] (NEGATIVE )</content> UNK 0-3 <content Saint styleCode="Kristina Lomelis d">Urine Red Medical Blood Cell Center </content>0-3 HPF<content styleCode="Suzanne lics"> (0-3 HPF)</content> UNK 0-3 <content [facility] styleCode="Kristina Lomelis d">Urine White Medical Blood Cell Center </content>>200 HPF<content styleCode="Suzanne lics"> (0-3 HPF)</content> UNK NEGATIVE <content [facility] styleCode="Kristina Lomelis d">Urine Medical Bacteria Center </content>FEW HPF<content styleCode="Suzanne lics"> (NEGATIVE HPF)</content> UNK <content [facility] styleCode="Kristina Lomelis d">Epithelial Medical Cell Center </content>2-5 LPF (Reference Range: not available)<br/ > ID Date Data Source [id number] 09/14/2018 08:45:00 PM EDT [facility] -0400 Name Value Range Interpretation Description Data Sup porting Code Source(s) Document(s ) Cannabinoids <content [facility] in styleCode[facility] Urine by Screen d">Cannabinoid Medical method >50 ng/mL s [place] </content>NEGA TIVE NG/ML (Reference Range: not available)<br/ > ID Date Data Source Liver 09/14/2018 08:04:00 PM EDT [facility] Profile.[id number] Name Value Range Interpretation Description Data Sup porting Code Source(s) Document(s ) UNK 0.0-0.3 <content [facility] styleCode="Bold"> Dasia Bilirubin, [facility] </content>< 0.2 Center MG/DL<content styleCode="Italic s"> (0.0-0.3 MG/DL)</content> Albumin 3.5-5.0 <content [facility] [Mass/volume] in styleCode="Bold"> Jaek hs Serum or Plasma Albumin Medical </content>4.3 [...] s"> (7-50 IU/L)</content> ID Date Data Source [id number] 09/14/2018 08:04:00 PM EDT [facility] 0400 Name Value Range Interpretation Description Data [...] ics"> (8.0-11.0 [place])</content> ID Date Data Source GFR(Creatinine).[id number] 09/14/2018 08:04:00 PM EDT [facility] 0-0400 Name Value Range Interpretation Code Description Data Katya rce(s) Supporting Document(s ) UNK > 60 <content [facility] styleCode="Bold"> Medical Cent er EGFR </content>63 GFR<content styleCode="Italic s"> (> 60 GFR)</content> ID Date Data Source CardiacMarkers.[id number] 09/14/2018 08:04:00 PM EDT [facility] -0400 Name Value Range Interpretation Description Data Sup porting Code Source(s) Document(s ) Creatine 55-170 Above high normal <content [facility] kinase styleCode="Bold Medical [Enzymatic ">CK Center activity/vol </content>646 ume] in IU/L H<content Serum or styleCode="Ital Plasma ics"> (55-170 IU/L)</content> ID Date Data Source [id number] 09/14/2018 08:04:00 PM EDT [facility] Name Value Range Interpretation Description Data Sup porting Code Source(s) Document(s ) Sodium 137-145 <content [facility] [Moles/volume] in styleCode="Bold"> Bipin phs Serum or Plasma Sodium Medical </content>140 Center MEQ/L<content styleCode="Italic s"> (137-145 MEQ/L)</content> Chloride 98-107 <content [facility] [Moles/volume] in styleCode="Bold"> Bipin [facility] Serum or Plasma Chloride Medical </content>101 Center MEQ/L<content styleCode="Italic s"> (98-107 MEQ/L)</content> Creatinine 0.5-1.3 <content [facility] [Mass/volume] in styleCode="Bold"> Jake hs Serum or Plasma Creatinine Medical </content>1.3 Center MG/DL<content styleCode="Italic s"> (0.5-1.3 MG/DL)</content> Potassium 3.5-5.3 <content [facility] [Moles/volume] in styleCode="Bold"> Bipin [facility] Serum or Plasma Potassium Medical </content>5.1 Center [...] > 60 <content [facility] styleCode="Bold"> Dasia EGFR </content>63 Medical GFR<content Center styleCode="Italic s"> [...] Source Liver Profile 03/06/2018 08:38:00 PM EST [facility] Name Value Range Interpretation Description Data Sup [...] styleCode="Italic s"> (0.2-1.3 MG/DL)</content> Alkaline 38-126 <content [facility] phosphatase styleCode="Bold"> Dasia [Enzymatic Alkaline [...] Supporting Document(s ) UNK > 60 <content [facility] styleCode="Bold"> Medical Cent er EGFR </content>154 GFR<content styleCode="Italic s"> (> 60 GFR)</content> ID Date Data Source CHMROUTINECCDA 03/06/2018 08:38:00 PM [facility] Name Value Range Interpretation Description Data Sup porting Code Source(s) Document(s ) UNK 2.3-3.5 <content [facility] styleCode="Bold Medical ">Globulin Center </content>2.5 G/DL<content styleCode="Ital ics"> (2.3-3.5 G/DL)</content> UNK >= 1.0 <content [facility] styleCode="Bold Medical ">AG Ratio Center </content>1.4 NM<content styleCode="Ital ics"> (>= 1.0 NM)</content> Protein 6.3-8.2 Below low normal <content [facility] Forman [Mass/volum styleCode="Bold Medical e] in Serum ">Total [...] 137-145 <content [facility] [Moles/volume] in styleCode="Bold"> Bipin [facility] Serum or Plasma Sodium Medical </content>139 Center MEQ/L<content styleCode="Italic s"> (137-145 MEQ/L)</content> Potassium 3.5-5.3 <content [facility] [Moles/volume] in styleCode="Bold"> Bipin [facility] Serum or Plasma Potassium Medical </content>4.3 Center [...] Bipin phs Serum or Plasma Chloride Medical </content>105 Center [...] MG/DL)</content> UNK > 60 <content [facility] styleCode="Bold"> [facility] EGFR Medical </content>154 Center GFR<content styleCode="Italic s"> [...] Data Source HematologyRou 03/06/2018 08:05:00 PM EST [facility] Name Value Range Interpretation Description Data Sup [...] 10/02/2018 Tobacco smoking completed Tobacco smoking Ekaterina fuad [place] 05:41:00 AM consumption unknown consumption Hos pital [...] 03/12/2018 Occasional Smoker completed Occasional Smoker [facility] 04:59:00 AM Medical Cente r EST Smoking 03/12/2018 Occasional Smoker completed Occasional Smoker [facility] Forman 04:08:00 AM Medical Cente r EST Smoking 03/12/2018 Occasional Smoker completed Occasional Smoker Dasia 02:15:00 AM Medical Cente r EST Smoking 03/06/2018 [id number] completed [facility] 09:44:00 PM Medical Cente r EST Smoking 03/06/2018 [id number] completed [facility] 06:52:00 PM Medical Cente r EST Smoking 03/06/2018 [id number] completed [facility] 06:52:00 PM Medical Cente r EST Smoking 03/06/2018 [id number] completed [facility] 06:48:00 PM Medical Cente r EST Smoking 03/05/2018 [id number] completed [facility] 12:10:00 AM Medical Cente r EST Smoking 03/05/2018 [id number] completed [facility] 12:05:00 AM Medical Cente r EST Smoking Unknown if ever completed Unknown if ever Whit e [place] smoked smoked Hospital Smoking Unknown if ever completed Unknown if ever Ariane loyd Lomelis smoked smoked Medical Center Vital Signs ID Date Data Source UNK Name Value Range Interpretation Code Description Data Source(s) Body weight 83.921492 kg 83.131932 kg [facility] Body temperature 36.856219 Linda 36.030013 Linda [facility] Respiratory rate 18 /min 18 /min [facility] 97 % 97 % [facility] saturation in [facility] Arterial blood Center by Pulse oximetry Heart rate 95 /min 95 /min [facility] Body height 170.210058 cm 170.291913 cm [facility] Diastolic blood 93 mm[Hg] 93 mm[Hg] [facility] pressure Medical Center Systolic blood 150 mm[Hg] 150 mm[Hg] [facility] Body mass index 28.9 kg/m2 28.9 kg/m2 [facility] (BMI) [Ratio] Medical Center Body temperature 36.231459 Linda 36.508827 Linda [facility] Respiratory rate 17 /min 17 /min [facility] 98 % 98 % [facility] saturation in [facility] Arterial blood Center by Pulse oximetry Heart rate 121 /min 121 /min [facility] Diastolic blood 89 mm[Hg] 89 mm[Hg] [facility] pressure Medical Center Systolic blood 136 mm[Hg] 136 mm[Hg] [facility] Body weight 85.490125 kg 85.633109 kg [facility] Body temperature 37.557638 Linda 37.832950 Linda [facility] Respiratory rate 18 /min 18 /min [facility] 98 % 98 % [facility] saturation in Medical Arterial blood Center by Pulse oximetry Heart rate 90 /min 90 /min [facility] Body height 172.635246 cm 172.856089 cm [facility] Diastolic blood 88 mm[Hg] 88 mm[Hg] [facility] pressure Medical Center Systolic blood 148 mm[Hg] 148 mm[Hg] [facility] Body mass index 28.4 kg/m2 28.4 kg/m2 [facility] (BMI) [Ratio] Medical Center Body temperature 36.591060 Linda 36.935432 Linda [facility] Respiratory rate 16 /min 16 /min [facility] 98 % 98 % [facility] saturation in Medical Arterial blood Center by Pulse oximetry Heart rate 89 /min 89 /min [facility] Diastolic blood 55 mm[Hg] 55 mm[Hg] [facility] pressure Medical Center Systolic blood 100 mm[Hg] 100 mm[Hg] [facility] Body temperature 37.893015 Linda 37.380128 Linda [facility] Respiratory rate 16 /min 16 /min [facility] 97 % 97 % [facility] saturation in Medical Arterial blood Center by Pulse oximetry Heart rate 93 /min 93 /min [facility] Diastolic blood 50 mm[Hg] 50 mm[Hg] [facility] pressure Medical [place] Systolic blood 97 mm[Hg] 97 mm[Hg] [facility] [place] Diastolic blood 73 mmHg 73 mmHg [facility] Systolic blood 110 mmHg 110 mmHg [facility] Respiratory rate 18 bpm 18 bpm [facility] Heart rate 91 bpm 91 bpm [facility] Diastolic blood 69 mmHg 69 mmHg [facility] Systolic blood 111 mmHg 111 mmHg [facility] Respiratory rate 18 bpm 18 bpm [facility] Heart rate 77 bpm 77 bpm [facility] Body temperature 97.7 Fahrenheit 97.7 Fahrenhei t [facility] Diastolic blood 76 mmHg 76 mmHg [facility] Systolic blood 121 mmHg 121 mmHg [facility] Respiratory rate 18 bpm 18 bpm [facility] Heart rate 81 bpm 81 bpm [facility] Body temperature 97.6 Fahrenheit 97.6 Fahrenhei t [facility] Diastolic blood 72 mmHg 72 mmHg [facility] Systolic blood 106 mmHg 106 mmHg [facility] Respiratory rate 18 bpm 18 bpm [facility] Heart rate 67 bpm 67 bpm [facility] Body temperature 97.6 Fahrenheit 97.6 Fahrenhei t [facility] Diastolic blood 73 mmHg 73 mmHg [facility] Systolic blood 101 mmHg 101 mmHg [facility] Heart rate 74 bpm 74 bpm [facility] Diastolic blood 69 mmHg 69 mmHg [facility] Systolic blood 102 mmHg 102 mmHg [facility] Respiratory rate 18 bpm 18 bpm [facility] Heart rate 59 bpm 59 bpm [facility] Body temperature 98.4 Fahrenheit 98.4 Fahrenhei t [facility] Diastolic blood 72 mmHg 72 mmHg [facility] Systolic blood 106 mmHg 106 mmHg [facility] Heart rate 78 bpm 78 bpm [facility] Diastolic blood 79 mmHg 79 mmHg [facility] Systolic blood 123 mmHg 123 mmHg [facility] Respiratory rate 18 bpm 18 bpm [facility] Heart rate 69 bpm 69 bpm [facility] Body temperature 98.0 Fahrenheit 98.0 Fahrenhei t [facility] Diastolic blood 78 mmHg 78 mmHg [facility] Systolic blood 114 mmHg 114 mmHg [facility] Heart rate 83 bpm 83 bpm [facility] Body weight 160.0 lbs 160.0 lbs [facility] Diastolic blood 79 mmHg 79 mmHg [facility] Systolic blood 110 mmHg 110 mmHg [facility] Respiratory rate 18 bpm 18 bpm [facility] Heart rate 78 bpm 78 bpm [facility] Body temperature 97.3 Fahrenheit 97.3 Fahrenhei t [facility] Diastolic blood 72 mmHg 72 mmHg [facility] Systolic blood 97 mmHg 97 mmHg [facility] Heart rate 81 bpm 81 bpm [facility] Diastolic blood 69 mmHg 69 mmHg [facility] Systolic blood 123 mmHg 123 mmHg [facility] Heart rate 94 bpm 94 bpm [facility] Diastolic blood 72 mmHg 72 mmHg [facility] Systolic blood 112 mmHg 112 mmHg [facility] Respiratory rate 16 bpm 16 bpm [facility] Heart rate 81 bpm 81 bpm [facility] Body temperature 97.7 Fahrenheit 97.7 Fahrenhei t [facility] Respiratory rate 18 bpm 18 bpm [facility] Body temperature 36.9 Fahrenheit 36.9 Fahrenhei t [facility] Diastolic blood 63 mmHg 63 mmHg [facility] Systolic blood 97 mmHg 97 mmHg [facility] Heart rate 99 bpm 99 bpm [facility] Respiratory rate 18 bpm 18 bpm [facility] Body temperature 98.2 Fahrenheit 98.2 Fahrenhei t [facility] Diastolic blood 76 mmHg 76 mmHg [facility] Systolic blood 116 mmHg 116 mmHg [facility] Heart rate 105 bpm 105 bpm [facility] Diastolic blood 85 mmHg 85 mmHg [facility] Systolic blood 117 mmHg 117 mmHg [facility] Heart rate 86 bpm 86 bpm [facility] Respiratory rate 18 bpm 18 bpm [facility] Body temperature 97.9 Fahrenheit 97.9 Fahrenhei t [facility] Diastolic blood 82 mmHg 82 mmHg [facility] Systolic blood 154 mmHg 154 mmHg [facility] Heart rate 77 bpm 77 bpm [facility] Diastolic blood 85 mmHg 85 mmHg [facility] Systolic blood 127 mmHg 127 mmHg [facility] Respiratory rate 18 bpm 18 bpm [facility] Heart rate 105 bpm 105 bpm [facility] Body temperature 98.4 Fahrenheit 98.4 Fahrenhei t [facility] Diastolic blood 77 mmHg 77 mmHg [facility] Systolic blood 109 mmHg 109 mmHg [facility] Respiratory rate 18 bpm 18 bpm [facility] Heart rate 72 bpm 72 bpm [facility] Body temperature 98.7 Fahrenheit 98.7 Fahrenhei t [facility] Diastolic blood 80 mmHg 80 mmHg [facility] Systolic blood 114 mmHg 114 mmHg [facility] Respiratory rate 18 bpm 18 bpm [facility] Heart rate 91 bpm 91 bpm [facility] Body temperature 97.6 Fahrenheit 97.6 Fahrenhei t [facility] Diastolic blood 79 mmHg 79 mmHg [facility] Systolic blood 119 mmHg 119 mmHg [facility] Respiratory rate 18 bpm 18 bpm [facility] Heart rate 77 bpm 77 bpm [facility] Body temperature 97.6 Fahrenheit 97.6 Fahrenhei t [facility] Diastolic blood 73 mmHg 73 mmHg [facility] Systolic blood 111 mmHg 111 mmHg [facility] Respiratory rate 16 bpm 16 bpm [facility] Heart rate 80 bpm 80 bpm [facility] Diastolic blood 74 mmHg 74 mmHg [facility] Systolic blood 118 mmHg 118 mmHg [facility] Respiratory rate 18 bpm 18 bpm [facility] Heart rate 88 bpm 88 bpm [facility] Body temperature 98.1 [facility] Res[facility] 18 bpm 18 bpm [facility] Heart rate 76 bpm 76 bpm [facility] Body temperature 98.1 Fahrenheit 98.1 [facility] Diastolic blood 78 mmHg 78 mmHg [facility] Systolic blood 117 mmHg 117 mmHg [facility] Diastolic blood 70 mmHg 70 mmHg [facility] Systolic blood 101 mmHg 101 mmHg [facility] Heart rate 87 bpm 87 bpm [facility] Diastolic blood 75 mmHg 75 mmHg [facility] Systolic blood 107 mmHg 107 mmHg [facility] Respiratory rate 18 bpm 18 bpm [facility] Heart rate 81 bpm 81 bpm [facility] Diastolic blood 67 mm[Hg] 67 mm[Hg] [facility] Systolic blood 114 mm[Hg] 114 mm[Hg] [facility] Respiratory rate 16 /min 16 /min [facility] Heart rate 74 /min 74 /min [facility] Body temperature 36.47301 Linda 36.27061 [facility] Body temperature 98.2 [degF] 98.2 [degF] [facility] Body mass index 28.0 kg/m2 28.0 kg/m2 [facility] (BMI) [Ratio] Hospital Body weight 180.36 [lb_av] 180.36 [lb_av] [facility] Diastolic blood 71 mm[Hg] 71 mm[Hg] [facility] Systolic blood 124 mm[Hg] 124 mm[Hg] [facility] Respiratory rate 18 /min 18 /min [facility] Heart rate 81 /min 81 /min [facility] Body temperature 37.09153 Linda 37.70236 [facility] Body temperature 98.6 [degF] 98.6 [degF] [facility] Body mass index 28.0 kg/m2 28.0 kg/m2 [facility] (BMI) [Ratio] Hospital Body weight 180.38 [lb_av] 180.38 [lb_av] [facility] Body temperature 36.486587 Linda 36.443573 [facility] Respiratory rate 18 /min 18 /min [facility] 95 % 95 % [facility] saturation in Medical Arterial blood Center by Pulse oximetry Heart rate 81 /min 81 /min [facility] Diastolic blood 67 mm[Hg] 67 mm[Hg] [facility] pressure Medical Center Systolic blood 130 mm[Hg] 130 mm[Hg] [facility] [place] Body weight 65.754770 kg 65.990056 kg [facility] Measured [facility] Body temperature 36.516989 Linda 36.285135 [facility] Respiratory rate 17 /min 17 /min [facility] 96 % 96 % [place] saturation in Medical Arterial blood Center by Pulse oximetry Heart rate 88 /min 88 /min [facility] Diastolic blood 88 mm[Hg] 88 mm[Hg] [facility] Systolic blood 141 mm[Hg] 141 mm[Hg] [facility] [place] Body temperature 37.094696 Linda 37.264704 [facility] Respiratory rate 17 /min 17 /min [facility] 97 % 97 % [facility] saturation in Medical Arterial blood Center by Pulse oximetry Heart rate 98 /min 98 /min [facility] Diastolic blood 88 mm[Hg] 88 mm[Hg] [facility] Center Systolic blood 152 mm[Hg] 152 mm[Hg] [facility] Body temperature 36.579062 Linda 36.001865 [facility] Respiratory rate 18 /min 18 /min [facility] 99 % 99 % [facility] saturation in Medical Arterial blood Center by Pulse oximetry Heart rate 88 /min 88 /min [facility] Diastolic blood 79 mm[Hg] 79 mm[Hg] [facility] Center Systolic blood 144 mm[Hg] 144 mm[Hg] [facility] [place] Body weight 80.141788 kg 80.384453 kg [facility] Body temperature 36.007274 Linda 36.284741 [facility] Respiratory rate 19 /min 19 /min [facility] 99 % 99 % [facility] saturation in Medical Arterial blood Center by Pulse oximetry Heart rate 101 /min 101 /min [facility] Body height 1767.795828 cm 1767.379544 cm [facility] Diastolic blood 101 mm[Hg] 101 mm[Hg] [facility] pressure [facility] Systolic blood 161 mm[Hg] 161 mm[Hg] [facility] Body mass index 0.2 kg/m2 0.2 kg/m2 [facility] (BMI) [Ratio] Medical Center Body temperature 36.422242 Linda 36.726647 [facility] Respiratory rate 18 /min 18 /min [facility] 97 % 97 % [facility] Medical saturation in Center Capillary blood by Oximetry Heart rate 74 /min 74 /min [facility] Systolic blood 74 mm[Hg] 74 mm[Hg] [facility] Diastolic blood 147 mm[Hg] 147 mm[Hg] [facility] Body temperature 36.433990 Linda 36.099362 [facility] Respiratory rate 18 /min 18 /min [facility] 96 % 96 % [place] [facility] Medical saturation in Center Capillary blood by Oximetry Heart rate 78 /min 78 /min [facility] Systolic blood 75 mm[Hg] 75 mm[Hg] [facility] Diastolic blood 137 mm[Hg] 137 mm[Hg] [facility] Body temperature 36.210245 Linda 36.858079 [facility] Respiratory rate 15 /min 15 /min [facility] 100 % 100 % [place] [facility] Medical saturation in Center Capillary blood by Oximetry Heart rate 85 /min 85 /min [facility] Systolic blood 90 mm[Hg] 90 mm[Hg] [facility] Diastolic blood 137 mm[Hg] 137 mm[Hg] [facility] Body temperature 36.615205 Linda 36.956127 [facility] Respiratory rate 18 /min 18 /min [facility] 97 % 97 % [place] [facility] Medical saturation in Center Capillary blood by Oximetry Heart rate 78 /min 78 /min [facility] Systolic blood 81 mm[Hg] 81 mm[Hg] [facility] Diastolic blood 127 mm[Hg] 127 mm[Hg] [facility] Body temperature 36.439500 Linda 36.206044 [facility] Respiratory rate 20 /min 20 /min [facility] 99 % 99 % [facility] Medical saturation in Center Capillary blood by Oximetry Heart rate 89 /min 89 /min [facility] Systolic blood 89 mm[Hg] 89 mm[Hg] [facility] Diastolic blood 145 mm[Hg] 145 mm[Hg] [facility] Body temperature 36.221075 Linda 36.807487 [facility] Respiratory rate 19 /min 19 /min [facility] 100 % 100 % [facility] Medical saturation in Center Capillary blood by Oximetry Heart rate 102 /min 102 /min [facility] Systolic blood 99 mm[Hg] 99 mm[Hg] [facility] Diastolic blood 149 mm[Hg] 149 mm[Hg] [facility] Body temperature 36.277311 Linda 36.502379 [facility] Respiratory rate 20 /min 20 /min [facility] 98 % 98 % [facility] Medical saturation in Center Capillary blood by Oximetry Heart rate 115 /min 115 /min [facility] Systolic blood 95 mm[Hg] 95 mm[Hg] [facility] Diastolic blood 154 mm[Hg] 154 mm[Hg] [facility] Patient Treatment Plan of Care Planned Activity Planned Date Details Description Data Source (s) DuoNeb 0.5/3mg/3mL 03/11/2019 12:07:07 [facility] Prednisone 20 MG Oral [facility] 200 ACTUAT Albuterol [facility] 0.09 MG/ACTUAT Metered Cente r Dose Inhaler Prednisone 20 MG Oral [facility] Prednisone 20 MG Oral [facility] 120 ACTUAT Budesonide [facility] 0.16 MG/ACTUAT / Center formoterol fumarate 0.0045 MG/ACTUAT Metered Dose Inhaler [Symbicort] 200 ACTUAT Albuterol [facility] 0.09 MG/ACTUAT Metered Cente r Dose Inhaler [Proventil] Prednisone 20 MG Oral [facility] 200 ACTUAT Albuterol [facility] 0.09 MG/ACTUAT Metered Cente r Dose Inhaler [Proventil]
[2020-01-13] MEDS ORDERED: ALBUTEROL SO4 HFA INHALER IH PRN (22:33)
[2020-01-13] MEDS ORDERED: ONDANSETRON 4 MG/2 ML VIAL IVPUSH PRN (22:37)
[2020-01-13] MEDS: DEXTROSE 5%-0.45% SALINE 1,000 ML IV SCH (22:47)
[2020-01-14 05:47] VITALS: BMI 29.0
[2020-01-14] MEDS: methylPREDNISolone NA SUCC 40 MG/1 ML VIAL IVPUSH SCH ×3 (05:55→21:13)
[2020-01-14 06:58] LABS: BASO % 0.1 % (0-2.0); HEMATOCRIT 33.3 % (35.4-49); HEMOGLOBIN 10.8 GM/dL (11.7-16.9); LYMPH % 7.6 % (8-40); MCH 25.8 pg (25.7-33.7); MCHC 32.3 g/dl (32.0-35.9); MEAN CELL VOLUME 79.9 fl (80-96); MEAN PLT VOLUME 8.1 fl (7.5-11.1); MONO % 2.8 % (3.8-10.2); NEUT % 89.5 % (42.8-82.8); PLATELET COUNT 266 K/MM3 (134-434); RBC 4.16 M/mm3 (4.00-5.60); WHITE BLOOD COUNT 6.5 K/mm3 (4.0-10.0)
--- NOTE | 2020-01-14 07:15 | PN ---
Progress Note (short form) - Note Progress Note: PULMONARY CONSULTATION DICTATED 01/14/20
[2020-01-14 07:26] LABS: BILIRUBIN,TOTAL 0.3 mg/dL (0.2-1); BLOOD UREA NITROGEN 14.8 mg/dL (7-18); CALCIUM 8.8 mg/dL (8.5-10.1); CREATININE 0.8 mg/dL (0.55-1.3); POTASSIUM 3.9 mmol/L (3.5-5.1); TOT PROT 6.1 g/dl (6.4-8.2)
--- NOTE | 2020-01-14 09:25 | CONSULT ---
Consult Detox [facility] Reason for Current Admission/Consult: Mr. Nicolas is a 49 yo gentleman who has a history of polysubstance use disorder. He is now admited to [facility] with shortness of breath. We are consulted to address his substance use. Referred by:: Dr. Diaz - History History of Present Illness: Mr. Nicolas is a 49 yo man who presented to [facility] yesterday with complaints of shortness of breath and wheezing that began two hours ago when he woke up. He reports taking his rescue inhaler to no relief. We are consulted for evaluation of heroin use disorder. He presented to [facility] requesting detox admission on January 05, 2022 for alcohol and heroin use. He left against medical advice on January 07. PMH: COPD, Asthma (multiple ED visits noted), recent dx of cataracts PSH/Psych/Legal: none SOC: lives with his mother Substance Use History as noted in the January 06, 2020 admission: Alcohol Substance amount: 6-10 beers, 12 oz ea Frequency of use: Daily Substance route: Oral Date of Last Use: 01/05/20 (First use age 17. No seizures. Blackouts, last was weeks ago. 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 OD x 1, one year ago. No Narcan at home) Nicotine Substance amount: one pack Frequency of use: Daily Substance route: Smoking Date of Last Use: 01/06/20 (first use age 21 y) Cocaine: one gram/month, began age 32, last use 2 days ago - History Source History Provided By: Medical Record - Alcohol/Substance Use Hx Alcohol Use: Yes Hx Substance Use: Yes - Past Medical History Cardio/Vascular: Yes: HTN Pulmonary: Yes: Asthma, Bronchitis, COPD, Pneumonia Psych: Yes: Addictions (heroin) - Past Surgical History Past Surgical History: Yes: None - Significant Medical Findings: Laboratory Tests 01/13/20 01/13/20 01/13/20 17:45 17:45 17:45 WBC 13.0 H RBC 4.89 Hgb 12.5 Hct 39.4 MCV 80.6 MCH 25.5 L MCHC 31.7 L RDW 15.3 Plt Count 295 MPV 7.8 Absolute Neuts (auto) 9.8 H Neutrophils % 75.5 D Lymphocytes % 13.5 D Monocytes % 5.2 Eosinophils % 5.1 H Basophils % 0.7 Nucleated RBC % 0 VBG pH 7.231 L POC VBG pCO2 61.3 H POC VBG pO2 20.1 L VBG HCO3 25.2 VBG O2 Sat (Monik) 24.3 L VBG Base Excess -3.4 L Sodium 139 Potassium 4.1 Chloride 103 Carbon Dioxide 29 Anion Gap 7 L BUN 17.8 Creatinine 1.0 Est GFR (CKD-EPI)AfAm 102.69 Est GFR (CKD-EPI)NonAf 88.61 Random Glucose 162 H Calcium 9.0 Total Bilirubin 0.3 AST 22 ALT 20 Alkaline Phosphatase 106 Creatine Kinase 173 Creatine Kinase Index 2.4 CK-MB (CK-2) 4.2 H Troponin I 0.05 Total Protein 7.4 Albumin 3.7 01/14/20 01/14/20 06:05 06:05 WBC 6.5 RBC 4.16 Hgb 10.8 L Hct 33.3 L D MCV 79.9 L MCH 25.8 MCHC 32.3 RDW 15.0 Plt Count 266 MPV 8.1 Absolute Neuts (auto) 5.8 Neutrophils % 89.5 H Lymphocytes % 7.6 L D Monocytes % 2.8 L Eosinophils % 0.0 D Basophils % 0.1 Nucleated RBC % 0 VBG pH POC VBG pCO2 POC VBG pO2 VBG HCO3 VBG O2 Sat (Monik) VBG Base Excess Sodium 139 Potassium 3.9 Chloride 105 Carbon Dioxide 29 Anion Gap 5 L BUN 14.8 Creatinine 0.8 Est GFR (CKD-EPI)AfAm 122.43 Est GFR (CKD-EPI)NonAf 105.63 Random Glucose 158 H Calcium 8.8 Total Bilirubin 0.3 AST 11 L ALT 15 Alkaline Phosphatase 80 Creatine Kinase Creatine Kinase Index CK-MB (CK-2) Troponin I Total Protein 6.1 L Albumin 3.0 L Home Medication List Medication Instructions Recorded Confirmed Type Budesonide/Formeterol Fumarate 2 puff IH BID 01/06/20 01/13/20 History [SYMBICORT 160/4.5mcg -] Active Medications Generic Name Dose Route Start Last Admin Trade Name Freq PRN Reason Stop Dose Admin Albuterol Sulfate 2 puff 01/13/20 22:33 01/14/20 01:00 Ventolin Hfa Inhaler - IH 2 puff Q4H PRN Administration SHORT OF BREATH/WHEEZING Heparin Sodium (Porcine) 5,000 unit 01/14/20 10:00 Heparin - SQ BID VARSHA Dextrose/Sodium Chloride 1,000 mls @ 75 mls/hr 01/13/20 22:45 01/13/20 22:47 D5-1/2ns - IV 75 mls/hr ASDIR VARSHA Administration Methylprednisolone Sodium Succinate 40 mg 01/14/20 06:00 01/14/20 05:55 Solu-Medrol - IVPUSH 40 mg TID VARSHA Administration Ondansetron HCl 4 mg 01/13/20 22:37 Zofran Injection IVPUSH Q6H PRN NAUSEA Vital Signs Temperature 97.6 F 01/14/20 05:50 Pulse Rate 71 01/14/20 05:50 Respiratory Rate 12 01/14/20 05:50 Blood Pressure 95/64 01/14/20 05:50 O2 Sat by Pulse Oximetry (%) 100 01/14/20 05:50 Assessment Plan - Diagnosis (1) Alcohol use disorder Status: Acute (2) Opioid dependence Status: Acute - Plan Plan: Plan 1. Please send urine toxicology, blood alcohol level 2. Document CIWA and COWS score 3. If urine positive for opiates and COWS score 11 or greater start methadone detox protocol. 4. If CIWA reveals significant withdrawal, score 12 or higher, begin Librium detox protocol.
[2020-01-14] MEDS: HEPARIN NA (PORCINE) 5,000 UNITS/ML 1ML VIAL SQ SCH ×2 (10:55→21:13)
--- NOTE | 2020-01-14 11:06 | EKG ---
Test Reason : Blood Pressure : / mmHG Vent. Rate : 108 BPM Atrial Rate : 108 BPM P-R Int : 174 ms QRS Dur : 082 ms QT Int : 336 ms P-R-T Axes : 065 016 069 degrees QTc Int : 450 ms SINUS TACHYCARDIA OTHERWISE NORMAL ECG WHEN COMPARED WITH ECG OF 06-JAN-2020 08:38, NO SIGNIFICANT CHANGE WAS FOUND Confirmed by MD Dowling Edward ([id number]) on 01/14/2020 11:06:04 AM Referred By: Confirmed By:Ion Dowling MD
--- NOTE | 2020-01-14 11:26 | PN ---
Progress Note (short form) - Note Progress Note: PULMONARY CONSULTATION DICTATED 01/14/20 IMP ACUTE HYPOXEMIC/HYPERCAPNEIC RESPIRATORY FAILURE ASTHMA/COPD EXACERBATION POLY SUBSTANCE ABUSE SMOKER HTN PLAN SUPPLEMENTAL 02 INHALED BRONCHODILATORS STEROIDS ABG SMOKING CESSATION COUNSELED MONITOR PEAK FLOW DR THOMPSON Problem List - Problems (1) Alcohol use disorder Code(s): [id number] - (2) Shortness of breath Code(s): R06.02 - SHORTNESS OF BREATH (3) Asthma exacerbation Code(s): J45.901 - UNSPECIFIED ASTHMA WITH (ACUTE) EXACERBATION Qualifiers: Asthma severity: moderate Asthma persistence: persistent Qualified Code(s): J45.41 - Moderate persistent asthma with (acute) exacerbation (4) Acute exacerbation of chronic obstructive pulmonary disease (COPD) Code(s): J44.1 - CHRONIC OBSTRUCTIVE PULMONARY DISEASE W (ACUTE) EXACERBATION (5) Drug use Code(s): F19.90 - OTHER PSYCHOACTIVE SUBSTANCE USE, UNSPECIFIED, UNCOMPLICATED (6) Heroin abuse Code(s): F11.10 - OPIOID ABUSE, UNCOMPLICATED (7) Hypoxia Code(s): R09.02 - HYPOXEMIA (8) Cocaine dependence, uncomplicated Code(s): F14.20 - COCAINE DEPENDENCE, UNCOMPLICATED (9) Diabetes Code(s): E11.9 - TYPE 2 DIABETES MELLITUS WITHOUT COMPLICATIONS (10) HTN (hypertension) Code(s): I10 - ESSENTIAL (PRIMARY) HYPERTENSION (11) Acute respiratory failure with hypoxia and hypercarbia Code(s): J96.01 - ACUTE RESPIRATORY FAILURE WITH HYPOXIA; J96.02 - ACUTE RESPIRATORY FAILURE WITH HYPERCAPNIA
[2020-01-14 12:18] LABS: ARTERIAL BLD GAS O2 SATURATION 97.7 mmHg (95-98); ARTERIAL BLOOD GAS BASE EXCESS 0.7 mmol/L (-2-2); ARTERIAL BLOOD GAS PO2 100.2 mmHg (80-100); ARTERIAL BLOOD GAS pH 7.416 (7.350-7.450)
[2020-01-14 12:19] LABS: ALLENS TEST POSITIVE
[2020-01-14] MEDS ORDERED: guaiFENesin 200 MG/10 ML 10 ML UNIT-DOSE CUPS PO PRN (14:28)
--- NOTE | 2020-01-14 18:00 | HP ---
Admitting History and Physical - Past Medical History Cardiovascular: Yes: HTN Pulmonary: Yes: Asthma, Bronchitis, COPD, Pneumonia Psych: Yes: Addictions (heroin) - Past Surgical History Past Surgical History: Yes: None - Smoking History Smoking history: Current every day smoker Have you smoked in the past 12 months: Yes Aproximately how many cigarettes per day: 20 If you are a former smoker, when did you quit?: 2017 - Alcohol/Substance Use Hx Alcohol Use: Yes History of Substance Use: reports: Heroin - Social History ADL: Independent Occupation: Unemployed History of Recent Travel: No Home Medications - Allergies Allergies/Adverse Reactions: Allergies Allergy/AdvReac Type Severity Reaction Status Date / Time No Known Allergies Allergy Verified 01/13/20 17:47 - Home Medications Home Medications: Ambulatory Orders Albuterol Sulfate Inhaler - [Ventolin HFA Inhaler -] 1 - 2 inh PO QID PRN #1 inhaler 05/23/18 Budesonide/Formeterol Fumarate [SYMBICORT 160/4.5mcg -] 2 puff IH BID 01/06/20 Physical Examination Vital Signs: Vital Signs Temperature 97.8 F 01/14/20 14:05 Pulse Rate 85 01/14/20 14:05 Respiratory Rate 18 01/14/20 14:05 Blood Pressure 107/72 01/14/20 14:05 O2 Sat by Pulse Oximetry (%) 100 01/14/20 09:00 Labs: CBC, BMP 01/14/20 06:05 01/14/20 06:05
--- NOTE | 2020-01-14 19:43 | CONS ---
DATE OF CONSULTATION: 01/14/2020 PULMONARY CONSULTATION REFERRING PHYSICIAN: Flavia Diaz MD. HISTORY OF PRESENT ILLNESS: The patient is a 49-year-old male known to me from previous hospitalization with past medical history of polysubstance abuse, COPD, asthma, hypertension, longstanding history of tobacco use currently still smoking, admitted to [facility] on January 12 with complaint of shortness of breath, bronchospasm, started 2 hours prior to admission after he woke up. Patient states he was breathing okay until a couple hours prior to admission when after waking up developed acute onset of shortness of breath. He took his respiratory inhaler without any improvement. He presented to the emergency room with the above. In the emergency room, he was noted to be in respiratory distress. He was treated with inhaled bronchodilators and steroids. Good response and transferred to further monitoring. Of note is the venous blood gas revealed evidence of hypercapnic respiratory failure with a pCO2 of 61 and pH of 7.23. As stated before, the patient has history of tobacco use currently still smoking, history of polysubstance abuse. He has had multiple hospitalizations in the past secondary to COPD, asthma exacerbation. PAST MEDICAL HISTORY: Again includes substance abuse, asthma, COPD, hypertension. REVIEW OF SYSTEMS: Positive shortness of breath. Positive cough. Positive wheezing. No chest pain. No palpitations. Positive chills. No fevers. No hemoptysis. CURRENT MEDICATIONS: Include: 1. Zofran. 2. Solu-Medrol 40 t.i.d. 3. Heparin. 4. Albuterol. 5. Robitussin. PHYSICAL EXAMINATION: General: The patient is a well-developed, well-nourished male awake, alert, mildly dyspneic, but in no acute distress. He is afebrile. Vital Signs: Blood pressure 107/72, respiratory rate 18, O2 saturation is 100% on 4 L nasal cannula. HEENT: Normocephalic, atraumatic. Neck: Supple. Heart: Regular S1, S2. Chest: Bilateral expiratory and inspiratory wheezes. Abdomen: Soft, bowel sounds positive. Extremities: No cyanosis, edema. LABORATORY: WBC is 6.5, hemoglobin 10.8, hematocrit 33.3 with a platelet count of 266,000. Venous blood gas: 7.23, pCO2 of 61, pO2 of 720, bicarbonate of 24. BUN is 14, creatinine is 0.8. Chest x-ray reveals no infiltrates, no effusions. IMPRESSION: 1. Acute hypoxemic, hypercapnic respiratory failure secondary to chronic obstructive pulmonary disease, asthma exacerbation. 2. Chronic obstructive pulmonary disease and asthma exacerbation. 3. Polysubstance abuse. 4. Smoker. 5. Hypertension. PLAN: Supplemental O2. Inhaled bronchodilators. Continue IV steroids. Inhaled steroids. Smoking cessation counseled. Monitor flow. ANGELA THOMPSON M.D. [id number]
[2020-01-15] MEDS: DEXTROSE 5%-0.45% SALINE 1,000 ML IV SCH (02:12)
[2020-01-15] MEDS: methylPREDNISolone NA SUCC 40 MG/1 ML VIAL IVPUSH SCH ×4 (02:12→21:25)
[2020-01-15 09:55] LABS: PHENCYCLIDINE,URINE NEGATIVE ng/ml (CUTOFF=25); URINE AMPHETAMINES NEGATIVE ng/ml (CUTOFF=500); URINE BARBITURATES NEGATIVE ng/ml (CUTOFF=200)
[2020-01-15 10:00] LABS: COCAINE, UR POSITIVE ng/ml (CUTOFF=300); METHADONE, UR POSITIVE ng/ml (CUTOFF=300); OPIATES, URI POSITIVE ng/ml (CUTOFF=300); URINE BENZODIAZEPINES POSITIVE ng/ml (CUTOFF=200)
[2020-01-15] MEDS: HEPARIN NA (PORCINE) 5,000 UNITS/ML 1ML VIAL SQ SCH ×2 (11:57→21:28)
--- NOTE | 2020-01-15 13:30 | PN ---
Progress Note (short form) - Note Progress Note: No IV access and has been refusing. Risks and benefits discussed and has agreed. Still with SOB, wheeze, and CONTRERAS. Intake & Output 01/12/20 01/13/20 01/14/20 01/15/20 23:59 23:59 23:59 23:59 Intake Total 975 900 Output Total 550 Balance 975 350 Weight 195 lb 191 lb 3.2 oz Last Vital Signs Temp Pulse Resp BP Pulse Ox 97.8 F 84 22 H 141/83 96 01/15/20 10:00 01/15/20 10:00 01/15/20 10:00 01/15/20 10:00 01/15/20 10:00 Active Medications Albuterol Sulfate (Ventolin Hfa Inhaler -) 2 puff IH Q4H PRN PRN Reason: SHORT OF BREATH/WHEEZING Last Admin: 01/14/20 01:00 Dose: 2 puff Documented by: Guaifenesin (Robitussin -) 10 ml PO Q6H PRN PRN Reason: COUGH Last Admin: 01/14/20 16:39 Dose: 10 ml Documented by: Heparin Sodium (Porcine) (Heparin -) 5,000 unit SQ BID [facility] Last Admin: 01/15/20 11:57 Dose: Not Given Documented by: Dextrose/Sodium Chloride (D5-1/2ns -) 1,000 mls @ 75 mls/hr IV ASDIR [facility] Last Admin: 01/15/20 02:12 Dose: 75 mls/hr Documented by: Methylprednisolone Sodium Succinate (Solu-Medrol -) 60 mg IVPUSH Q6H-IV [facility] Last Admin: 01/15/20 11:56 Dose: 60 mg Documented by: Ondansetron HCl (Zofran Injection) 4 mg IVPUSH Q6H PRN PRN Reason: NAUSEA GEN: Mildly tachypneic at rest, AAOx3. HEENT: NC/AT, CV: S1/S2, RRR, no m/r/g LUNG: tachypniec, diffuse wheezing and poor air entry throughout. GI: Soft, ndnt, +BS, no guarding, no rebound. MSK: No obvious deformities of all extremities. SKIN: Warm, dry, no rashes appreciated. PSYCH: Normal mood and affect. NEURO: nonfocal Laboratory Results - last 24 hr 01/13/20 01/14/20 20:26 09:30 Opiates Screen Positive A* Methadone Screen Positive A* Barbiturate Screen Negative Phencyclidine Screen Negative Ur Amphetamines Screen Negative MDMA (Ecstasy) Screen Negative Benzodiazepines Screen Positive A* Cocaine Screen Positive A* U Marijuana (THC) Screen Negative COVID-19 (YOUNG) Not detected IMP ACUTE HYPOXEMIC/HYPERCAPNEIC RESPIRATORY FAILURE ASTHMA/COPD EXACERBATION POLY SUBSTANCE ABUSE SMOKER HTN PLAN SUPPLEMENTAL 02 INHALED BRONCHODILATORS STEROIDS ABG SMOKING CESSATION COUNSELED MONITOR PEAK FLOW Problem List - Problems (1) Alcohol use disorder Code(s): [id number] - (2) Shortness of breath Code(s): R06.02 - SHORTNESS OF BREATH (3) Asthma exacerbation Code(s): J45.901 - UNSPECIFIED ASTHMA WITH (ACUTE) EXACERBATION Qualifiers: Asthma severity: moderate Asthma persistence: persistent Qualified Code(s): J45.41 - Moderate persistent asthma with (acute) exacerbation (4) Acute exacerbation of chronic obstructive pulmonary disease (COPD) Code(s): J44.1 - CHRONIC OBSTRUCTIVE PULMONARY DISEASE W (ACUTE) EXACERBATION (5) Drug use Code(s): F19.90 - OTHER PSYCHOACTIVE SUBSTANCE USE, UNSPECIFIED, UNCOMPLICATED (6) Heroin abuse Code(s): F11.10 - OPIOID ABUSE, UNCOMPLICATED (7) Hypoxia Code(s): R09.02 - HYPOXEMIA (8) Cocaine dependence, uncomplicated Code(s): F14.20 - COCAINE DEPENDENCE, UNCOMPLICATED (9) Diabetes Code(s): E11.9 - TYPE 2 DIABETES MELLITUS WITHOUT COMPLICATIONS (10) HTN (hypertension) Code(s): I10 - ESSENTIAL (PRIMARY) HYPERTENSION (11) Acute respiratory failure with hypoxia and hypercarbia Code(s): J96.01 - ACUTE RESPIRATORY FAILURE WITH HYPOXIA; J96.02 - ACUTE RESPIRATORY FAILURE WITH HYPERCAPNIA Dr Grover
--- NOTE | 2020-01-15 17:26 | PN ---
Progress Note, Physician History of Present Illness: feeling good - Current Medication List Current Medications: Active Medications Albuterol Sulfate (Ventolin Hfa Inhaler -) 2 puff IH Q4H PRN PRN Reason: SHORT OF BREATH/WHEEZING Last Admin: 01/14/20 01:00 Dose: 2 puff Documented by: Guaifenesin (Robitussin -) 10 ml PO Q6H PRN PRN Reason: COUGH Last Admin: 01/14/20 16:39 Dose: 10 ml Documented by: Heparin Sodium (Porcine) (Heparin -) 5,000 unit SQ BID [facility] Last Admin: 01/15/20 11:57 Dose: Not Given Documented by: Dextrose/Sodium Chloride (D5-1/2ns -) 1,000 mls @ 75 mls/hr IV ASDIR [facility] Last Admin: 01/15/20 02:12 Dose: 75 mls/hr Documented by: Methylprednisolone Sodium Succinate (Solu-Medrol -) 60 mg IVPUSH Q6H-IV [facility] Last Admin: 01/15/20 16:15 Dose: 60 mg Documented by: Ondansetron HCl (Zofran Injection) 4 mg IVPUSH Q6H PRN PRN Reason: NAUSEA - Objective Vital Signs: Vital Signs Temperature 98 F 01/15/20 14:10 Pulse Rate 80 01/15/20 14:10 Respiratory Rate 18 01/15/20 14:10 Blood Pressure 143/80 01/15/20 14:10 O2 Sat by Pulse Oximetry (%) 96 01/15/20 10:00 Constitutional: Yes: No Distress HENT: Yes: Atraumatic Neck: Yes: Supple Cardiovascular: Yes: Regular Rate and Rhythm Respiratory: Yes: Rhonchi, Wheezes Gastrointestinal: Yes: Normal Bowel Sounds Extremities: Yes: WNL Neurological: Yes: Alert, Oriented Labs: CBC, BMP 01/14/20 06:05 01/14/20 06:05 Problem List - Problems (1) Alcohol use disorder Code(s): [id number] - (2) Shortness of breath Code(s): R06.02 - SHORTNESS OF BREATH (3) Asthma exacerbation Assessment/Plan: iv steroids prn duo nebs pulmonary on board Code(s): J45.901 - UNSPECIFIED ASTHMA WITH (ACUTE) EXACERBATION Qualifiers: Asthma severity: moderate Asthma persistence: persistent Qualified Code(s): J45.41 - Moderate persistent asthma with (acute) exacerbation (4) Drug use Code(s): F19.90 - OTHER PSYCHOACTIVE SUBSTANCE USE, UNSPECIFIED, UNCOMPLICATED (5) Drug-induced mood disorder Code(s): F19.94 - OTH PSYCHOACTIVE SUBSTANCE USE, UNSP W MOOD DISORDER (6) Heroin abuse Code(s): F11.10 - OPIOID ABUSE, UNCOMPLICATED (7) Opioid dependence Code(s): F11.20 - OPIOID DEPENDENCE, UNCOMPLICATED (8) Polysubstance abuse Code(s): F19.10 - OTHER PSYCHOACTIVE SUBSTANCE ABUSE, UNCOMPLICATED (9) Cocaine dependence, uncomplicated Code(s): F14.20 - COCAINE DEPENDENCE, UNCOMPLICATED (10) Diabetes Code(s): E11.9 - TYPE 2 DIABETES MELLITUS WITHOUT COMPLICATIONS (11) HTN (hypertension) Code(s): I10 - ESSENTIAL (PRIMARY) HYPERTENSION (12) Hyperlipidemia Code(s): E78.5 - HYPERLIPIDEMIA, UNSPECIFIED (13) Acute respiratory failure with hypoxia and hypercarbia Code(s): J96.01 - ACUTE RESPIRATORY FAILURE WITH HYPOXIA; J96.02 - ACUTE RESPIRATORY FAILURE WITH HYPERCAPNIA Assessment/Plan COVERING FOR DR SIU TODAY
[2020-01-16] MEDS: DEXTROSE 5%-0.45% SALINE 1,000 ML IV SCH (03:51)
[2020-01-16] MEDS: methylPREDNISolone NA SUCC 40 MG/1 ML VIAL IVPUSH SCH ×3 (03:51→18:35)
[2020-01-16 06:41] LABS: BASO % 0.1 % (0-2.0); HEMATOCRIT 34.4 % (35.4-49); HEMOGLOBIN 11.2 GM/dL (11.7-16.9); LYMPH % 4.1 % (8-40); MCH 25.9 pg (25.7-33.7); MCHC 32.7 g/dl (32.0-35.9); MEAN CELL VOLUME 79.1 fl (80-96); MEAN PLT VOLUME 8.1 fl (7.5-11.1); NEUT % 93.8 % (42.8-82.8); PLATELET COUNT 300 K/MM3 (134-434); RBC 4.35 M/mm3 (4.00-5.60); RDW 15.3 % (11.9-15.9); WHITE BLOOD COUNT 15.2 K/mm3 (4.0-10.0)
[2020-01-16 07:19] LABS: BILIRUBIN,TOTAL 0.2 mg/dL (0.2-1); CALCIUM 8.7 mg/dL (8.5-10.1); CREATININE 0.8 mg/dL (0.55-1.3); POTASSIUM 4.3 mmol/L (3.5-5.1); TOT PROT 6.2 g/dl (6.4-8.2)
--- NOTE | 2020-01-16 07:48 | PN ---
Progress Note, Physician History of Present Illness: PULMONARY ALERT,FEELING BETTER,LESS DYSPNEIC,LESS CONGESTED - Current Medication List Current Medications: Active Medications Albuterol Sulfate (Ventolin Hfa Inhaler -) 2 puff IH Q4H PRN PRN Reason: SHORT OF BREATH/WHEEZING Last Admin: 01/14/20 01:00 Dose: 2 puff Documented by: Guaifenesin (Robitussin -) 10 ml PO Q6H PRN PRN Reason: COUGH Last Admin: 01/14/20 16:39 Dose: 10 ml Documented by: Heparin Sodium (Porcine) (Heparin -) 5,000 unit SQ BID [facility] Last Admin: 01/15/20 21:28 Dose: 5,000 unit Documented by: Dextrose/Sodium Chloride (D5-1/2ns -) 1,000 mls @ 75 mls/hr IV ASDIR [facility] Last Admin: 01/16/20 03:51 Dose: 75 mls/hr Documented by: Methylprednisolone Sodium Succinate (Solu-Medrol -) 60 mg IVPUSH Q6H-IV [facility] Last Admin: 01/16/20 03:51 Dose: 60 mg Documented by: Ondansetron HCl (Zofran Injection) 4 mg IVPUSH Q6H PRN PRN Reason: NAUSEA - Objective Vital Signs: Vital Signs Temperature 97.5 F L 01/16/20 06:00 Pulse Rate 66 01/16/20 06:00 Respiratory Rate 20 01/16/20 06:00 Blood Pressure 128/76 01/16/20 06:00 O2 Sat by Pulse Oximetry (%) 95 01/16/20 06:00 Constitutional: Yes: Well Nourished, Calm Eyes: Yes: WNL HENT: Yes: WNL Neck: Yes: WNL Cardiovascular: Yes: Regular Rate and Rhythm, S1, S2 Respiratory: Yes: Wheezes (BILATERAL WHEEZES) Gastrointestinal: Yes: Normal Bowel Sounds, Soft Extremities: Yes: WNL Edema: No Labs: CBC, BMP 01/16/20 05:49 01/16/20 05:49 Problem List - Problems (1) Alcohol use disorder Code(s): [id number] - (2) Shortness of breath Code(s): R06.02 - SHORTNESS OF BREATH (3) Asthma exacerbation Code(s): J45.901 - UNSPECIFIED ASTHMA WITH (ACUTE) EXACERBATION Qualifiers: Asthma severity: moderate Asthma persistence: persistent Qualified Code(s): J45.41 - Moderate persistent asthma with (acute) exacerbation (4) Acute exacerbation of chronic obstructive pulmonary disease (COPD) Code(s): J44.1 - CHRONIC OBSTRUCTIVE PULMONARY DISEASE W (ACUTE) EXACERBATION (5) Drug use Code(s): F19.90 - OTHER PSYCHOACTIVE SUBSTANCE USE, UNSPECIFIED, UNCOMPLICATED (6) Heroin abuse Code(s): F11.10 - OPIOID ABUSE, UNCOMPLICATED (7) Hypoxia Code(s): R09.02 - HYPOXEMIA (8) Cocaine dependence, uncomplicated Code(s): F14.20 - COCAINE DEPENDENCE, UNCOMPLICATED (9) Diabetes Code(s): E11.9 - TYPE 2 DIABETES MELLITUS WITHOUT COMPLICATIONS (10) HTN (hypertension) Code(s): I10 - ESSENTIAL (PRIMARY) HYPERTENSION (11) Acute respiratory failure with hypoxia and hypercarbia Code(s): J96.01 - ACUTE RESPIRATORY FAILURE WITH HYPOXIA; J96.02 - ACUTE RESPIRATORY FAILURE WITH HYPERCAPNIA Assessment/Plan IMP ACUTE HYPOXEMIC/HYPERCAPNEIC RESPIRATORY FAILURE IMPROVING ASTHMA/COPD EXACERBATION IMPROVING POLY SUBSTANCE ABUSE SMOKER HTN PLAN SUPPLEMENTAL 02 INHALED BRONCHODILATORS STEROID TAPER SMOKING CESSATION COUNSELED MONITOR PEAK FLOW DR THOMPSON Problem List - Problems (1) Alcohol use disorder Code(s): TSO9100 - (2) Shortness of breath Code(s): R06.02 - SHORTNESS OF BREATH (3) Asthma exacerbation Code(s): J45.901 - UNSPECIFIED ASTHMA WITH (ACUTE) EXACERBATION Qualifiers: Asthma severity: moderate Asthma persistence: persistent Qualified Code(s): J45.41 - Moderate persistent asthma with (acute) exacerbation (4) Acute exacerbation of chronic obstructive pulmonary disease (COPD)
[2020-01-16 09:28] LABS: ANISOCYTOSIS 2+; MACROCYTOSIS 0; PLATELET ESTIMATE NORMAL
[2020-01-16] MEDS: HEPARIN NA (PORCINE) 5,000 UNITS/ML 1ML VIAL SQ SCH ×2 (09:37→21:47)
--- NOTE | 2020-01-16 21:22 | PN ---
Progress Note, Physician - Current Medication List Current Medications: Active Medications Albuterol Sulfate (Ventolin Hfa Inhaler -) 2 puff IH Q4H PRN PRN Reason: SHORT OF BREATH/WHEEZING Last Admin: 01/14/20 01:00 Dose: 2 puff Documented by: Guaifenesin (Robitussin -) 10 ml PO Q6H PRN PRN Reason: COUGH Last Admin: 01/14/20 16:39 Dose: 10 ml Documented by: Heparin Sodium (Porcine) (Heparin -) 5,000 unit SQ BID [facility] Last Admin: 01/16/20 09:37 Dose: 5,000 unit Documented by: Dextrose/Sodium Chloride (D5-1/2ns -) 1,000 mls @ 75 mls/hr IV ASDIR [facility] Last Admin: 01/16/20 03:51 Dose: 75 mls/hr Documented by: Methylprednisolone Sodium Succinate (Solu-Medrol -) 60 mg IVPUSH Q8H-IV [facility] Last Admin: 01/16/20 18:35 Dose: 60 mg Documented by: Ondansetron HCl (Zofran Injection) 4 mg IVPUSH Q6H PRN PRN Reason: NAUSEA - Objective Vital Signs: Vital Signs Temperature 98.0 F 01/16/20 18:00 Pulse Rate 79 01/16/20 18:00 Respiratory Rate 20 01/16/20 18:00 Blood Pressure 117/78 01/16/20 18:00 O2 Sat by Pulse Oximetry (%) 95 01/16/20 10:00 Labs: CBC, BMP 01/16/20 05:49 01/16/20 05:49
[2020-01-17] MEDS: methylPREDNISolone NA SUCC 40 MG/1 ML VIAL IVPUSH SCH ×3 (01:02→18:13)
[2020-01-17] MEDS: HEPARIN NA (PORCINE) 5,000 UNITS/ML 1ML VIAL SQ SCH ×2 (09:07→21:31)
--- NOTE | 2020-01-17 10:30 | PN ---
Progress Note (short form) - Note Progress Note: PULMONARY Breathing better, ambulating hallways. Vital Signs Period Temp Pulse Resp BP Sys/Devries Pulse Ox Last 24 Hr 97.5 F-98.0 F 66-85 20-20 117-148/69-101 94-98 Gen: NAD at rest Heart: RRR Lung: scattered rhonchi, wheezes Abd: soft, nontender Ext: no edema CBC, BMP 01/16/20 05:49 01/16/20 05:49 Active Medications Albuterol Sulfate (Ventolin Hfa Inhaler -) 2 puff IH Q4H PRN PRN Reason: SHORT OF BREATH/WHEEZING Last Admin: 01/14/20 01:00 Dose: 2 puff Documented by: Guaifenesin (Robitussin -) 10 ml PO Q6H PRN PRN Reason: COUGH Last Admin: 01/14/20 16:39 Dose: 10 ml Documented by: Heparin Sodium (Porcine) (Heparin -) 5,000 unit SQ BID [facility] Last Admin: 01/17/20 09:07 Dose: 5,000 unit Documented by: Methylprednisolone Sodium Succinate (Solu-Medrol -) 60 mg IVPUSH Q8H-IV [facility] Last Admin: 01/17/20 09:07 Dose: 60 mg Documented by: Ondansetron HCl (Zofran Injection) 4 mg IVPUSH Q6H PRN PRN Reason: NAUSEA A/P Acute Hypoxic and Hypercapneic Respiratory Failure Acute COPD Exacerbation Polysubstance Abuse HTN Smoker - taper medrol - inhaled bronchodilators - O2 to keep SpO2 >90% - heroin, smoking cessation - DVT prophylaxis
[2020-01-17] MEDS: ALBUTEROL SO4 2.5/IPRATROPIUM 0.5 INH SOL 3 ML VIAL.NEB. NEB SCH ×3 (11:40→20:30)
--- NOTE | 2020-01-17 23:14 | PN ---
Progress Note, Physician History of Present Illness: Pt slightly lethargic - Current Medication List Current Medications: Active Medications Albuterol Sulfate (Ventolin Hfa Inhaler -) 2 puff IH Q4H PRN PRN Reason: SHORT OF BREATH/WHEEZING Last Admin: 01/14/20 01:00 Dose: 2 puff Documented by: Albuterol/Ipratropium (Duoneb -) 1 amp NEB RQID [facility] Last Admin: 01/17/20 20:30 Dose: Not Given Documented by: Guaifenesin (Robitussin -) 10 ml PO Q6H PRN PRN Reason: COUGH Last Admin: 01/14/20 16:39 Dose: 10 ml Documented by: Heparin Sodium (Porcine) (Heparin -) 5,000 unit SQ BID [facility] Last Admin: 01/17/20 21:31 Dose: Not Given Documented by: Methylprednisolone Sodium Succinate (Solu-Medrol -) 40 mg IVPUSH Q8H-IV [facility] Last Admin: 01/17/20 18:13 Dose: 40 mg Documented by: Ondansetron HCl (Zofran Injection) 4 mg IVPUSH Q6H PRN PRN Reason: NAUSEA - Objective Vital Signs: Vital Signs Temperature 97.6 F 01/17/20 18:03 Pulse Rate 75 01/17/20 14:10 Respiratory Rate 20 01/17/20 21:17 Blood Pressure 142/80 01/17/20 18:03 O2 Sat by Pulse Oximetry (%) 98 01/17/20 21:17 Cardiovascular: Yes: WNL, Regular Rate and Rhythm Respiratory: Yes: Wheezes Gastrointestinal: Yes: WNL, Normal Bowel Sounds Labs: CBC, BMP 01/16/20 05:49 01/16/20 05:49 Problem List - Problems (1) Asthma exacerbation Assessment/Plan: Cont IV steroids and taper as appropiate Cont nebulizers Code(s): J45.901 - UNSPECIFIED ASTHMA WITH (ACUTE) EXACERBATION Qualifiers: Asthma severity: moderate Asthma persistence: persistent Qualified Code(s): J45.41 - Moderate persistent asthma with (acute) exacerbation (2) HTN (hypertension) Assessment/Plan: BP stable borderline Code(s): I10 - ESSENTIAL (PRIMARY) HYPERTENSION (3) Heroin abuse Code(s): F11.10 - OPIOID ABUSE, UNCOMPLICATED
[2020-01-18] MEDS: methylPREDNISolone NA SUCC 40 MG/1 ML VIAL IVPUSH SCH ×3 (03:07→21:48)
[2020-01-18] MEDS: ALBUTEROL SO4 2.5/IPRATROPIUM 0.5 INH SOL 3 ML VIAL.NEB. NEB SCH ×4 (07:45→20:25)
--- NOTE | 2020-01-18 08:06 | PN ---
Progress Note, Physician History of Present Illness: PULMONARY ALERT,FEELING BETTER,LESS DYSPNEIC - Current Medication List Current Medications: Active Medications Albuterol Sulfate (Ventolin Hfa Inhaler -) 2 puff IH Q4H PRN PRN Reason: SHORT OF BREATH/WHEEZING Last Admin: 01/14/20 01:00 Dose: 2 puff Documented by: Albuterol/Ipratropium (Duoneb -) 1 amp NEB RQID [facility] Last Admin: 01/17/20 20:30 Dose: Not Given Documented by: Guaifenesin (Robitussin -) 10 ml PO Q6H PRN PRN Reason: COUGH Last Admin: 01/14/20 16:39 Dose: 10 ml Documented by: Heparin Sodium (Porcine) (Heparin -) 5,000 unit SQ BID [facility] Last Admin: 01/17/20 21:31 Dose: Not Given Documented by: Methylprednisolone Sodium Succinate (Solu-Medrol -) 40 mg IVPUSH Q8H-IV [facility] Last Admin: 01/18/20 03:07 Dose: 40 mg Documented by: Ondansetron HCl (Zofran Injection) 4 mg IVPUSH Q6H PRN PRN Reason: NAUSEA - Objective Vital Signs: Vital Signs Temperature 98.6 F 01/18/20 02:00 Pulse Rate 77 01/18/20 02:00 Respiratory Rate 20 01/18/20 02:00 Blood Pressure 142/97 01/18/20 02:00 O2 Sat by Pulse Oximetry (%) 98 01/17/20 22:00 Constitutional: Yes: Well Nourished, Calm Eyes: Yes: WNL HENT: Yes: WNL Neck: Yes: WNL Cardiovascular: Yes: Regular Rate and Rhythm, S1, S2 Extremities: Yes: WNL Edema: No Labs: CBC, BMP 01/16/20 05:49 01/16/20 05:49 Problem List - Problems (1) Alcohol use disorder Code(s): [id number] - (2) Shortness of breath Code(s): R06.02 - SHORTNESS OF BREATH (3) Asthma exacerbation Code(s): J45.901 - UNSPECIFIED ASTHMA WITH (ACUTE) EXACERBATION Qualifiers: Asthma severity: moderate Asthma persistence: persistent Qualified Code(s): J45.41 - Moderate persistent asthma with (acute) exacerbation (4) Acute exacerbation of chronic obstructive pulmonary disease (COPD) Code(s): J44.1 - CHRONIC OBSTRUCTIVE PULMONARY DISEASE W (ACUTE) EXACERBATION (5) Drug use Code(s): F19.90 - OTHER PSYCHOACTIVE SUBSTANCE USE, UNSPECIFIED, UNCOMPLICATED (6) Heroin abuse Code(s): F11.10 - OPIOID ABUSE, UNCOMPLICATED (7) Hypoxia Code(s): R09.02 - HYPOXEMIA (8) Cocaine dependence, uncomplicated Code(s): F14.20 - COCAINE DEPENDENCE, UNCOMPLICATED (9) Diabetes Code(s): E11.9 - TYPE 2 DIABETES MELLITUS WITHOUT COMPLICATIONS (10) HTN (hypertension) Code(s): I10 - ESSENTIAL (PRIMARY) HYPERTENSION (11) Acute respiratory failure with hypoxia and hypercarbia Code(s): J96.01 - ACUTE RESPIRATORY FAILURE WITH HYPOXIA; J96.02 - ACUTE RESPIRATORY FAILURE WITH HYPERCAPNIA Assessment/Plan IMP ACUTE HYPOXEMIC/HYPERCAPNEIC RESPIRATORY FAILURE IMPROVING ASTHMA/COPD EXACERBATION IMPROVING POLY SUBSTANCE ABUSE SMOKER HTN PLAN SUPPLEMENTAL 02 INHALED BRONCHODILATORS STEROID TAPER SMOKING CESSATION COUNSELED MONITOR PEAK FLOW HOPEFULLY CAN D/C HOME DR THOMPSON Problem List - Problems (1) Alcohol use disorder Code(s): [id number] - (2) Shortness of breath Code(s): R06.02 - SHORTNESS OF BREATH (3) Asthma exacerbation Code(s): J45.901 - UNSPECIFIED ASTHMA WITH (ACUTE) EXACERBATION Qualifiers: Asthma severity: moderate Asthma persistence: persistent Qualified Code(s ): J45.41 - Moderate persistent asthma with (acute) exacerbation (4) Acute exacerbation of chronic obstructive pulmonary disease (COPD)
[2020-01-18] MEDS: HEPARIN NA (PORCINE) 5,000 UNITS/ML 1ML VIAL SQ SCH ×2 (09:36→21:48)
--- NOTE | 2020-01-18 23:38 | PN ---
Progress Note, Physician - Current Medication List Current Medications: Active Medications Albuterol Sulfate (Ventolin Hfa Inhaler -) 2 puff IH Q4H PRN PRN Reason: SHORT OF BREATH/WHEEZING Last Admin: 01/14/20 01:00 Dose: 2 puff Documented by: Albuterol/Ipratropium (Duoneb -) 1 amp NEB RQID [facility] Last Admin: 01/18/20 20:25 Dose: 1 amp Documented by: Guaifenesin (Robitussin -) 10 ml PO Q6H PRN PRN Reason: COUGH Last Admin: 01/14/20 16:39 Dose: 10 ml Documented by: Heparin Sodium (Porcine) (Heparin -) 5,000 unit SQ BID [facility] Last Admin: 01/18/20 21:48 Dose: 5,000 unit Documented by: Methylprednisolone Sodium Succinate (Solu-Medrol -) 40 mg IVPUSH BID [facility] Last Admin: 01/18/20 21:48 Dose: 40 mg Documented by: Ondansetron HCl (Zofran Injection) 4 mg IVPUSH Q6H PRN PRN Reason: NAUSEA - Objective Vital Signs: Vital Signs Temperature 98.8 F 01/18/20 20:10 Pulse Rate 92 H 01/18/20 20:10 Respiratory Rate 18 01/18/20 20:10 Blood Pressure 129/92 01/18/20 20:10 O2 Sat by Pulse Oximetry (%) 95 01/18/20 20:10 Labs: CBC, BMP 01/16/20 05:49 01/16/20 05:49 Problem List - Problems (1) Asthma exacerbation Code(s): J45.901 - UNSPECIFIED ASTHMA WITH (ACUTE) EXACERBATION Qualifiers: Asthma severity: moderate Asthma persistence: persistent Qualified Code(s): J45.41 - Moderate persistent asthma with (acute) exacerbation (2) HTN (hypertension) Code(s): I10 - ESSENTIAL (PRIMARY) HYPERTENSION (3) Heroin abuse Code(s): F11.10 - OPIOID ABUSE, UNCOMPLICATED
[2020-01-19] MEDS: ALBUTEROL SO4 2.5/IPRATROPIUM 0.5 INH SOL 3 ML VIAL.NEB. NEB SCH ×4 (08:15→20:50)
[2020-01-19] MEDS: HEPARIN NA (PORCINE) 5,000 UNITS/ML 1ML VIAL SQ SCH ×2 (09:24→22:18)
[2020-01-19] MEDS: methylPREDNISolone NA SUCC 40 MG/1 ML VIAL IVPUSH SCH ×2 (10:30→22:18)
--- NOTE | 2020-01-19 11:12 | PN ---
Progress Note (short form) - Note Progress Note: PULMONARY Breathing better but not at baseline. Vital Signs Period Temp Pulse Resp BP Sys/Devries Pulse Ox Last 24 Hr 97.5 F-98.9 F 84-95 18-20 115-158/54-111 94-96 Gen: NAD at rest Heart: RRR Lung: scattered rhonchi, wheezes Abd: soft, nontender Ext: no edema CBC, BMP 01/16/20 05:49 01/16/20 05:49 Active Medications Albuterol Sulfate (Ventolin Hfa Inhaler -) 2 puff IH Q4H PRN PRN Reason: SHORT OF BREATH/WHEEZING Last Admin: 01/14/20 01:00 Dose: 2 puff Documented by: Albuterol/Ipratropium (Duoneb -) 1 amp NEB RQID [facility] Last Admin: 01/19/20 08:15 Dose: 1 amp Documented by: Guaifenesin (Robitussin -) 10 ml PO Q6H PRN PRN Reason: COUGH Last Admin: 01/14/20 16:39 Dose: 10 ml Documented by: Heparin Sodium (Porcine) (Heparin -) 5,000 unit SQ BID [facility] Last Admin: 01/19/20 09:24 Dose: 5,000 unit Documented by: Methylprednisolone Sodium Succinate (Solu-Medrol -) 40 mg IVPUSH BID [facility] Last Admin: 01/19/20 10:30 Dose: 40 mg Documented by: Ondansetron HCl (Zofran Injection) 4 mg IVPUSH Q6H PRN PRN Reason: NAUSEA A/P Acute Hypoxic and Hypercapneic Respiratory Failure Acute COPD Exacerbation Polysubstance Abuse HTN Smoker - taper medrol - can likely change steroids to PO prednisone in AM if continues to improve and taper as outpt - inhaled bronchodilators - O2 to keep SpO2 >90% - heroin, smoking cessation - DVT prophylaxis - can likely d/c home in AM
[2020-01-19] MEDS ORDERED: PT OWN MED DRAWER 7, Y5N ONE (15:51)
--- NOTE | 2020-01-19 23:09 | PN ---
Progress Note, Physician History of Present Illness: Pt feeling better - Current Medication List Current Medications: Active Medications Albuterol Sulfate (Ventolin Hfa Inhaler -) 2 puff IH Q4H PRN PRN Reason: SHORT OF BREATH/WHEEZING Last Admin: 01/14/20 01:00 Dose: 2 puff Documented by: Albuterol/Ipratropium (Duoneb -) 1 amp NEB RQID [facility] Last Admin: 01/19/20 20:50 Dose: Not Given Documented by: Guaifenesin (Robitussin -) 10 ml PO Q6H PRN PRN Reason: COUGH Last Admin: 01/14/20 16:39 Dose: 10 ml Documented by: Heparin Sodium (Porcine) (Heparin -) 5,000 unit SQ BID [facility] Last Admin: 01/19/20 22:18 Dose: 5,000 unit Documented by: Methylprednisolone Sodium Succinate (Solu-Medrol -) 40 mg IVPUSH BID [facility] Last Admin: 01/19/20 22:18 Dose: 40 mg Documented by: Ondansetron HCl (Zofran Injection) 4 mg IVPUSH Q6H PRN PRN Reason: NAUSEA - Objective Vital Signs: Vital Signs Temperature 98.1 F 01/19/20 21:16 Pulse Rate 100 H 01/19/20 21:16 Respiratory Rate 20 01/19/20 21:16 Blood Pressure 134/106 H 01/19/20 21:16 O2 Sat by Pulse Oximetry (%) 94 L 01/19/20 21:16 Cardiovascular: Yes: WNL, Regular Rate and Rhythm Respiratory: Yes: Other (Few scattered wheezes) Gastrointestinal: Yes: WNL, Normal Bowel Sounds, Soft Labs: CBC, BMP 01/16/20 05:49 01/16/20 05:49 Problem List - Problems (1) Asthma exacerbation Assessment/Plan: Cont IV steroids and taper as appropiate Probable change to prednisone in am DC planning for am WBC elevated due to steroids Cont nebulizers Code(s): J45.901 - UNSPECIFIED ASTHMA WITH (ACUTE) EXACERBATION Qualifiers: Asthma severity: moderate Asthma persistence: persistent Qualified Code(s): J45.41 - Moderate persistent asthma with (acute) exacerbation (2) HTN (hypertension) Assessment/Plan: BP stable borderline Code(s): I10 - ESSENTIAL (PRIMARY) HYPERTENSION (3) Heroin abuse Code(s): F11.10 - OPIOID ABUSE, UNCOMPLICATED
--- NOTE | 2020-01-20 07:30 | PN ---
Progress Note, Physician History of Present Illness: PULMONARY ALERT,COMFORTABLE, BREATHING BACK TO BASELINE - Current Medication List Current Medications: Active Medications Albuterol Sulfate (Ventolin Hfa Inhaler -) 2 puff IH Q4H PRN PRN Reason: SHORT OF BREATH/WHEEZING Last Admin: 01/14/20 01:00 Dose: 2 puff Documented by: Albuterol/Ipratropium (Duoneb -) 1 amp NEB RQID [facility] Last Admin: 01/19/20 20:50 Dose: Not Given Documented by: Guaifenesin (Robitussin -) 10 ml PO Q6H PRN PRN Reason: COUGH Last Admin: 01/14/20 16:39 Dose: 10 ml Documented by: Heparin Sodium (Porcine) (Heparin -) 5,000 unit SQ BID [facility] Last Admin: 01/19/20 22:18 Dose: 5,000 unit Documented by: Methylprednisolone Sodium Succinate (Solu-Medrol -) 40 mg IVPUSH BID [facility] Last Admin: 01/19/20 22:18 Dose: 40 mg Documented by: Ondansetron HCl (Zofran Injection) 4 mg IVPUSH Q6H PRN PRN Reason: NAUSEA - Objective Vital Signs: Vital Signs Temperature 98.1 F 01/19/20 21:16 Pulse Rate 78 01/20/20 06:34 Respiratory Rate 20 01/20/20 06:34 Blood Pressure 133/78 01/20/20 06:34 O2 Sat by Pulse Oximetry (%) 94 L 01/19/20 21:16 Constitutional: Yes: Well Nourished, Calm Eyes: Yes: WNL HENT: Yes: WNL Neck: Yes: WNL Cardiovascular: Yes: Regular Rate and Rhythm, S1, S2 Respiratory: Yes: Wheezes (SCATTERED WHEEZES) Extremities: Yes: WNL Edema: No Labs: CBC, BMP Problem List - Problems (1) Alcohol use disorder Code(s): [id number] - (2) Shortness of breath Code(s): R06.02 - SHORTNESS OF BREATH (3) Asthma exacerbation Code(s): J45.901 - UNSPECIFIED ASTHMA WITH (ACUTE) EXACERBATION Qualifiers: Asthma severity: moderate Asthma persistence: persistent Qualified Code(s): J45.41 - Moderate persistent asthma with (acute) exacerbation (4) Acute exacerbation of chronic obstructive pulmonary disease (COPD) Code(s): J44.1 - CHRONIC OBSTRUCTIVE PULMONARY DISEASE W (ACUTE) EXACERBATION (5) Drug use Code(s): F19.90 - OTHER PSYCHOACTIVE SUBSTANCE USE, UNSPECIFIED, UNCOMPLICATED (6) Heroin abuse Code(s): F11.10 - OPIOID ABUSE, UNCOMPLICATED (7) Hypoxia Code(s): R09.02 - HYPOXEMIA (8) Cocaine dependence, uncomplicated Code(s): F14.20 - COCAINE DEPENDENCE, UNCOMPLICATED (9) Diabetes Code(s): E11.9 - TYPE 2 DIABETES MELLITUS WITHOUT COMPLICATIONS (10) HTN (hypertension) Code(s): I10 - ESSENTIAL (PRIMARY) HYPERTENSION (11) Acute respiratory failure with hypoxia and hypercarbia Code(s): J96.01 - ACUTE RESPIRATORY FAILURE WITH HYPOXIA; J96.02 - ACUTE RESPIRATORY FAILURE WITH HYPERCAPNIA Assessment/Plan IMP ACUTE HYPOXEMIC/HYPERCAPNEIC RESPIRATORY FAILURE IMPROVED ASTHMA/COPD EXACERBATION IMPROVED POLY SUBSTANCE ABUSE SMOKER HTN PLAN SUPPLEMENTAL 02 INHALED BRONCHODILATORS PREDNISONE 50mg daily with taper as outpatient SMOKING CESSATION COUNSELED CAN D/C HOME DR THOMPSON Problem List - Problems (1) Alcohol use disorder Code(s): [id number] - (2) Shortness of breath Code(s): R06.02 - SHORTNESS OF BREATH (3) Asthma exacerbation Code(s): J45.901 - UNSPECIFIED ASTHMA WITH (ACUTE) EXACERBATION Qualifiers: Asthma severity: moderate Asthma persistence: persistent Qualified Code(s): J45.41 - Moderate persistent asthma with (acute) exacerbation (4) Acute exacerbation of chronic obstructive pulmonary disease (COPD)
[2020-01-20 09:14] VITALS: BP 151/85; PULSE 85; TEMP 97.9
[2020-01-20] MEDS: methylPREDNISolone NA SUCC 40 MG/1 ML VIAL IVPUSH SCH (09:14)
[2020-01-20] MEDS: HEPARIN NA (PORCINE) 5,000 UNITS/ML 1ML VIAL SQ SCH (09:15)
== END 2020-01-20 11:50 | disposition home or self-care (01) | DRG 133 ==
LOC: JER 17:20 → JERBED 20:01 → J4W 01-14 00:39
PROVIDERS: ADMIT Internal Medicine; ATTEND Internal Medicine
PROC: HZ2ZZZZ Detoxification Services for Substance Abuse Treatment (ICD-10-PCS; principal; 2020-01-14)
DX: J96.01 Acute respiratory failure with hypoxia (principal); R00.0 Tachycardia, unspecified; F10.10 Alcohol abuse, uncomplicated; F14.20 Cocaine dependence, uncomplicated; F11.20 Opioid dependence, uncomplicated; J44.1 Chronic obstructive pulmonary disease with (acute) exacerbation; J96.02 Acute respiratory failure with hypercapnia; I10 Essential (primary) hypertension; J45.41 Moderate persistent asthma with (acute) exacerbation; F19.10 Other psychoactive substance abuse, uncomplicated; F17.200 Nicotine dependence, unspecified, uncomplicated; E78.5 Hyperlipidemia, unspecified; E11.9 Type 2 diabetes mellitus without complications
CPT/HCPCS: 36415; 36600; 71045-TC-FY; 80053; 80307; 82550; 82553; 82803; 84484; 85025; 87040; 93005; 93010; 94640; 99285-25; J1100; J1644; U0003

== ENCOUNTER 2020-02-03 07:35 | Inpatient (IN) | payer OTHER ==
[2020-02-03] MEDS ORDERED: MAGNESIUM SULF 50% (8.12 MEQ/2 ML-1 GM VIAL) IVPB ONE (07:43)
[2020-02-03] MEDS ORDERED: methylPREDNISolone NA SUCC 125 MG/2 ML VIAL IVPB ONE (07:43)
[2020-02-03] MEDS ORDERED: ALBUTEROL SO4 HFA INHALER IH ONE ×2 (07:43→07:59)
--- NOTE | 2020-02-03 07:47 | PDOC ---
Attending Attestation - Resident Resident Name: Juana Cook - ED Attending Attestation I have performed the following: I have examined & evaluated the patient, The case was reviewed & discussed with the resident, I agree w/resident's findings & plan, Exceptions are as noted - HPI HPI: 02/03/20 07:43 49YOM with h/o asthma, COPD, bronchitis, pneumonia, heroin use (snorts), and former smoking (quit 2016), who p/w SOB since this morning at 6am, feels the same as his prior asthma. Recent admission for similar presentation (within the past month), in and out of the hospital for similar this year. - Physicial Exam PE: 02/03/20 08:30 GENERAL: anxious appearing but nontoxic, A/Ox4, mild distress, answers questions appropriately HEENT: PERRLA, EOMI, moist mucous membranes NECK/BACK: no midline ttp, no spinal step-off or deformity, no hematoma, full ROM, neck supple CARDIOVASCULAR: regular rate/rhythm, no MGR, strong peripheral pulses, capillary refill <2 seconds, extremities wwp, no edema LUNGS/RESPIRATORY: mild-moderate respiratory distress, speaking 3 word sentences, bilateral expiratory wheezes, no focal area of decreased lung sounds GI/ABDOMEN: symmetric yttr-rb-ldim, normoactive BS, soft, no ttp, no midline pulsatile masses : no CVA tenderness MSK/EXTREMITIES: no muscle atrophy, no acute deformity SKIN: warm and dry, no pallor, no jaundice, no rash, no pathologic-appearing bruising, no skin breakdown, no cuts, no lesions NEUROLOGICAL: GCS 15, CN II-XII grossly intact, 5/5 strength proximally and distally, no facial droop - Medical Decision Making 02/03/20 08:32 49YOM with asthma, COPD, PNA, bronchitis, and heroin use (snorts) who p/w respiratory distress similar to his prior admissions for COPD. Initial Vital Signs Temp Pulse Resp BP Pulse Ox 98.3 F 115 H 22 H 151/100 97 02/03/20 07:35 02/03/20 07:35 02/03/20 07:35 02/03/20 07:35 02/03/20 07:35 Most likely asthma or COPD exacerbation. Less likely but possible PNA/bronchitis. The patient does have some r/o ACS especially given his prior h/o cocaine use although he denies it at this time, but he needs r/o. Unlikely PE as he has only one PERC risk factor on initial assessment (tachycardia). Provider Orders Category Date Time Status Decision to Admit to Hospital Routine Admission 02/03/20 10:10 Active ELECTROCARDIOGRAM [CARD] Stat Cardiology 02/03/20 07:43 Ordered EKG needed NOW Care 02/03/20 07:43 Completed Isolation Precautions As directed Care 02/03/20 10:09 Active ALCOHOL Stat Lab 02/03/20 08:20 Completed CARDIAC PROFILE ([facility]) Stat Lab 02/03/20 08:20 Completed CBC WITH DIFFERENTIAL Stat Lab 02/03/20 08:20 Completed COMP METABOLIC PANEL Stat Lab 02/03/20 08:20 Completed COVID-19 Stat Lab 02/03/20 10:17 Ordered MAGNESIUM Stat Lab 02/03/20 08:20 Completed Albuterol 2.5/Ipratropium 0.5 [Duoneb -] Medication 02/03/20 10:10 Discontinued 1 amp NEB .STK-MED ONE Albuterol 2.5/Ipratropium 0.5 [Duoneb -] Medication 02/03/20 10:06 Discontinued 1 amp NEB ONCE ONE Albuterol Sulfate Inhaler - [Ventolin Hfa Inhaler -] Medication 02/03/20 07:59 Discontinued 1 puff IH .STK-MED ONE Albuterol Sulfate Inhaler - [Ventolin Hfa Inhaler -] Medication 02/03/20 07:43 Discontinued 2 puff IH ONCE ONE Buprenorphine HCl/Naloxone HCl [Suboxone 4 mg/1 mg Film Medication 02/03/20 10:05 Discontinued Packet] 1 each SL ONCE ONE Magnesium 1Gm/D5w - Medication 02/03/20 08:00 Discontinued 1 gm in 100 ml IVPB UD Magnesium Sulfate Medication 02/03/20 07:43 Discontinued 1 gm IVPB ONCE ONE Methylprednisolone Na Succ [Solu-Medrol -] Medication 02/03/20 07:59 Discontinued 125 mg .ROUTE .STK-MED ONE Methylprednisolone Na Succ [Solu-Medrol -] Medication 02/03/20 07:43 Discontinued 125 mg IVPB ONCE ONE CHEST X-RAY PORTABLE* [RAD] Stat Radiology 02/03/20 07:43 Completed Medications Discontinued Medications Generic Name Dose Route Start Last Admin Trade Name Freq PRN Reason Stop Dose Admin Albuterol Sulfate 2 puff 02/03/20 07:43 02/03/20 07:55 Ventolin Hfa Inhaler - IH 02/03/20 07:44 2 puff ONCE ONE Administration Albuterol Sulfate Confirm 02/03/20 07:59 Ventolin Hfa Inhaler - Administered 02/03/20 08:00 Dose 1 puff IH .STK-MED ONE Albuterol/Ipratropium 1 amp 02/03/20 10:06 02/03/20 10:17 Duoneb - NEB 02/03/20 10:07 1 amp ONCE ONE Administration Albuterol/Ipratropium Confirm 02/03/20 10:10 Duoneb - Administered 02/03/20 10:11 Dose 1 amp NEB .STK-MED ONE Buprenorphine/Naloxone 1 each 02/03/20 10:05 Suboxone 4 Mg/1 Mg Film Packet SL 02/03/20 10:06 ONCE ONE Magnesium Sulfate/Dextrose Confirm 02/03/20 08:00 Magnesium 1gm/D5w - Administered 02/03/20 08:01 Dose 1 gm in 100 mls @ ud IVPB .STK-MED ONE Magnesium Sulfate 1 gm 02/03/20 07:43 02/03/20 08:30 Magnesium Sulfate IVPB 02/03/20 07:44 1 gm ONCE ONE Administration Methylprednisolone Sodium Succinate 125 mg 02/03/20 07:43 02/03/20 08:15 Solu-Medrol - IVPB 02/03/20 07:44 125 mg ONCE ONE Administration Methylprednisolone Sodium Succinate Confirm 02/03/20 07:59 Solu-Medrol - Administered 02/03/20 08:00 Dose 125 mg .ROUTE .STK-MED ONE Lab Results WBC 8.6 K/mm3 (4.0-10.0) 02/03/20 08:20 RBC 5.03 M/mm3 (4.00-5.60) 02/03/20 08:20 Hgb 13.2 GM/dL (11.7-16.9) 02/03/20 08:20 Hct 40.2 % (35.4-49) D 02/03/20 08:20 MCV 80.1 fl (80-96) 02/03/20 08:20 MCH 26.3 pg (25.7-33.7) 02/03/20 08:20 MCHC 32.8 g/dl (32.0-35.9) 02/03/20 08:20 RDW 15.4 % (11.9-15.9) 02/03/20 08:20 Plt Count 319 K/MM3 (134-434) 02/03/20 08:20 MPV 7.5 fl (7.5-11.1) 02/03/20 08:20 Absolute Neuts (auto) 5.6 K/mm3 (1.5-8.0) 02/03/20 08:20 Neutrophils % 64.9 % (42.8-82.8) D 02/03/20 08:20 Lymphocytes % 24.1 % (8-40) D 02/03/20 08:20 Monocytes % 5.3 % (3.8-10.2) D 02/03/20 08:20 Eosinophils % 4.9 % (0-4.5) H D 02/03/20 08:20 Basophils % 0.8 % (0-2.0) D 02/03/20 08:20 Nucleated RBC % 0 % (0-0) 02/03/20 08:20 Sodium 140 mmol/L (136-145) 02/03/20 08:20 Potassium 4.4 mmol/L (3.5-5.1) 02/03/20 08:20 Chloride 106 mmol/L (98-107) 02/03/20 08:20 Carbon Dioxide 27 mmol/L (21-32) 02/03/20 08:20 Anion Gap 7 MMOL/L (8-16) L 02/03/20 08:20 BUN 12.9 mg/dL (7-18) 02/03/20 08:20 Creatinine 0.8 mg/dL (0.55-1.3) 02/03/20 08:20 Est GFR (CKD-EPI)AfAm 122.43 02/03/20 08:20 Est GFR (CKD-EPI)NonAf 105.63 02/03/20 08:20 Random Glucose 89 mg/dL (74-106) 02/03/20 08:20 Calcium 9.6 mg/dL (8.5-10.1) 02/03/20 08:20 Magnesium 2.0 mg/dL (1.8-2.4) 02/03/20 08:20 Total Bilirubin 0.4 mg/dL (0.2-1) 02/03/20 08:20 AST 15 U/L (15-37) 02/03/20 08:20 ALT 21 U/L (13-61) 02/03/20 08:20 Alkaline Phosphatase 93 U/L (45-117) 02/03/20 08:20 Creatine Kinase 62 U/L (26-308) 02/03/20 08:20 Troponin I < 0.02 ng/ml (0.00-0.05) 02/03/20 08:20 Total Protein 7.3 g/dl (6.4-8.2) 02/03/20 08:20 Albumin 3.4 g/dl (3.4-5.0) 02/03/20 08:20 Alcohol, Quantitative < 3 mg/dL (0.0-5.0) 02/03/20 08:20 CXR: nothing acute Patient feeling much better but still significantly wheezy on auscultation. Patient will be given Suboxone 4mg/1mg for heroin withdrawal; states withdrawal symptoms and usually snorts 3 bags/day but has not used today. To be admitted, per resident note. Heart Score/ECG Review #1 02/03/20 07:47 Sinus rhythm, rate 102, normal axis and intervals, peaked t waves in V3/[address]-T changes Discharge - Discharge Information Problems reviewed: Yes Clinical Impression/Diagnosis: Heroin withdrawal Asthma exacerbation Qualifiers: Asthma severity: unspecified severity Asthma persistence: unspecified Qualified Code(s): J45.901 - Unspecified asthma with (acute) exacerbation Condition: Guarded - Admission Yes - Follow up/Referral - Patient Discharge Instructions - Post Discharge Activity
[2020-02-03 07:54] VITALS: BMI 30.1
[2020-02-03] MEDS ORDERED: methylPREDNISolone NA SUCC 125 MG/2 ML VIAL ONE (07:59)
--- OUTSIDE RECORDS SUMMARY | 2020-02-03 07:59 | XMS ---
:1970 Author Organization [facility] Care Team Providers Name Role Phone SARAH DILLARD Unavailable Unavailable ED STAFF PHYSICIAN, STAFF Unavailable Unavailable EMERGENCY SERVICE, X Unavailable Unavailable ED STAFF PHYSICIAN, YOLANDA Unavailable [facility]available [id number] Unavailable Unavailable ED STAFF PHYSICIAN Unavailable Unavailable [...] is protected by Article 27-F of the [place] Public Health law. If you continue you may haveaccess to information: Regarding HIV / AIDS; Provided by facilities licensed or operated by the [facility] Office of Mental Health; or Provided by the [facility] Office for People With Developmental Disabilities. If such information is present, then the following [facility] mandated warning applies: This information has been [...] law may result in a fine or intermediate sentence or both. A general authorization for the release of medical or other information is NOT sufficient authorization for further disclosure. Encounters Encounter Providers Location Date Indications Data Source(s ) Emergency Attender: [facility] ED H 09/21/2019 [facility] STAFF 04:35:00 PM EDT Medical C enter PHYSICIANAttender: - 09/21/2019 STAFF ED STAFF 06:39:00 PM EDT PHYSICIANAdmitter: [facility] ED STAFF PHYSICIAN Patient discharged. Emergency Attender: ED STAFF H 07/27/2019 04:09:00 PM [facility] PHYSICIANAttender: [facility] ED EDT - 07/27/2019 [facility] STAFF PHYSICIANAttender: STAFF 04:44:00 PM EDT ED STAFF PHYSICIANAdmitter: ED STAFF PHYSICIANReferrer: STAFF ED STAFF PHYSICIAN Patient discharged. Emergency Attender: [facility] ED STAFF 07/27/2019 12:15:00 PM [facility] PHYSICIANAttender: STAFF ED EDT - 07/27/2019 [facility] STAFF PHYSICIANAdmitter: YOLANDA 01:35:00 PM EDT ED STAFF PHYSICIAN Patient discharged. Outpatient Attender: [id number] [facility] 06/03/2019 12:25:33 PM [facility] ([facility]) Patient admitted. Emergency Attender: NISHANT 03/11/2019 11:34:00 [facility] CAROLAttender: EMERGENCY AM EST Health Care SERVICE, XAdmitter: SARAH Pastrana 11/07/2018 12:00:00 AM EDT - 018 12:00:00 [facility] AM EST Medications Medication Brand Start Product Dose Route Administrative Pharmacy at Indications Reaction Description Data Name Date Form Instructions Instructions Source(s) DuoNeb DuoNeb 03/11/ 0.5 UNK active DuoNeb [place] 0.5/3mg/3mL 0.5/3m 2019 /3mg 0.5/3mg/3mL [place] g/3mL 12:07: /3mL (Ipratropium [facility] 07 PM /Albuterol) Care EST Inh 0.5/3mg Corporat io /3mL n Inhalation Medication administered onsite Insurance Providers Payer name Policy type Policy ID Covered Covered constitution party's Policy P judson / Coverage constitution party ID relationship to Abad Inf ormation type abad MVP MEDICAID [id number] SP [id number] O MEDICAID [id number] SP [id number] MVP MEDICAID [id number] SP [id number] O MEDICAID [id number] SP [id number] W [id number] 01 [id number] PENDING [id number] EXCHANGE SELF PAY SP INSURANCE MVP/HHP O [id number] 01 [id number] MVP MEDICAID [id number] SP [id number] O [place] [id number] SP [id number] HEALTH-MVP SELF PAY 0000 Self 0000 MEDICAID INP [id number] Self [id number] U PSYCH MMC MVP [id number] Self [id number] [facility] [id number] PT [id number] ABREU [employer] [facility] [id number] PT [id number] ABREU [employer] [place] [id number] SP [id number] 600 HEALTH-MVP MVP/HHP O [id number] 01 [id number] Problems, Conditions, and Diagnoses Code Display Name Description Problem Type Effective Data Sour ce(s) Dates Z53.20 Procedure and PROC/TRTMT NOT CRD Diagnosis 09/21/2019 [facility] treatment not OUT BEC PT 04:35:00 PM Medical Ce danielle carried out DECISION FOR UNSP EDT because of REASONS patient's decision for unspecified reasons J45.909 Unspecified UNSPECIFIED Diagnosis 09/21/2019 [place] [facility] asthma, ASTHMA, 04:35:00 PM Medical Cent[facility] r uncomplicated UNCOMPLICATED EDT R06.00 Dyspnea, DYSPNEA, Diagnosis 09/21/2019 [facility] unspecified UNSPECIFIED 04:35:[address] EDT F17.210 Nicotine NICOTINE Diagnosis 07/27/2019 [place] dependence, DEPENDENCE, 04:09:[address] cigarettes, CIGARETTES, EDT uncomplicated UNCOMPLICATED F19.10 Other psychoactive OTHER PSYCHOACTIVE Diagnosis 0 [facility] substance abuse, SUBSTANCE ABUSE, 04:09:00 PM edical Center uncomplicated UNCOMPLICATED EDT F91.9 Conduct disorder, CONDUCT DISORDER, Diagnosis 07/27/2019 [facility] unspecified UNSPECIFIED 04:09:[address] EDT J45.909 Unspecified UNSPECIFIED Diagnosis 03/11/2019 [place] asthma, ASTHMA, 11:34:00 AM [facility] EST [facility] R06.2 Wheezing WHEEZING Diagnosis 03/11/2019 [place] 11:34:00 AM [facility] Results ID Date Data Source [id number] 01/13/2020 08:26:00 PM EDT [facility] Name Value Range Interpretation Description Data Sup porting Code Source(s) Document(s ) SARS [facility] coronavirus 2 RNA This lab was ordered by [facility] and reported by [facility]. ID Date Data Source [id number] 01/06/2020 12:00:00 PM EDT [facility] Name Value Range Interpretation Description Data Sup porting Code Source(s) Document(s ) SARS [facility] coronavirus 2 RNA This lab was ordered by [facility] Russ Grijalva and reported by [facility]. ID Date Data Source [id number] 09/07/2019 12:25:00 AM EDT [facility] Name Value Range Interpretation Description Data Sup porting Code Source(s) Document(s ) SARS [facility] CORONAVIRUS 2 RNA This lab was ordered by [facility] and reported by [facility]. ID Date Data Source [id number] 08/25/2019 10:40:00 AM EDT [facility] Name Value Range Interpretation Description Data Sup porting Code Source(s) Document(s ) SARS [facility] CORONAVIRUS 2 RNA This lab was ordered by [facility] and reported by [facility]. Procedure Social History Code Duration Value Status Description Data Source(s ) Smoking 09/21/2019 04:51:00 Daily Smoker completed Daily Smoker S [facility] Smoking 09/21/2019 04:50:00 Daily Smoker completed Daily Smoker S [facility] Smoking 09/21/2019 04:44:00 Daily Smoker completed Daily Smoker S [facility] Smoking 07/27/2019 04:20:00 Daily Smoker completed Daily Smoker S [facility] Smoking 07/27/2019 04:15:00 Daily Smoker completed Daily Smoker S [facility] Smoking 07/27/2019 04:13:00 Daily Smoker completed Daily Smoker S [facility] Smoking 07/27/2019 12:26:00 Daily Smoker completed Daily Smoker S [facility] Smoking 07/27/2019 12:16:00 Daily Smoker completed Daily Smoker S [facility]T [facility] Vital Signs ID Date Data Source UNK Name Value Range Interpretation Code Description Data Source(s) Body weight 83.648943 kg 83.161032 kg [facility] Body temperature 36.351433 36.122410 [facility] Respiratory rate 18 /min 18 /min [facility] Oxygen saturation 97 % 97 % [facility] by Pulse oximetry Heart rate 95 /min 95 /min [facility] Body height 170.962626 170.768850 cm [facility] Diastolic blood 93 mm[Hg] 93 mm[Hg] [facility] Systolic blood 150 mm[Hg] 150 mm[Hg] [facility] Body mass index 28.9 kg/m2 28.9 kg/m2 [facility] (BMI) [Ratio] Medical [facility] Body temperature 36.919488 36.493283 [facility] Respiratory rate 17 /min 17 /min [facility] Oxygen saturation 98 % 98 % [facility] by Pulse oximetry Heart rate 121 /min 121 /min [facility] Diastolic blood 89 mm[Hg] 89 mm[Hg] [facility] Systolic blood 136 mm[Hg] 136 mm[Hg] [facility] Body weight 85.482685 kg 85.311394 kg [facility] Body temperature 37.819011 37.633116 [facility] Respiratory rate 18 /min 18 /min [facility] Oxygen saturation 98 % 98 % [facility] by Pulse oximetry Heart rate 90 /min 90 /min [facility] Body height 172.835454 172.858182 cm [facility] Diastolic blood 88 mm[Hg] 88 mm[Hg] [facility] pressure Medical Center Systolic blood 148 mm[Hg] 148 mm[Hg] [facility] pressure Medical Center Body mass index 28.4 kg/m2 28.4 kg/m2 [facility] (BMI) [Ratio] Medical [facility] Patient Treatment Plan of Care Planned Activity Planned Date Details Description Data Source (s) Marisa 0.5/3mg/3mL 03/11/2019 12:07:07 [facility] EST Care Corporatio n
[2020-02-03] MEDS ORDERED: MAGNESIUM 1GM/D5W - 1 GM/100 ML IVPB IVPB ONE (08:00)
[2020-02-03 09:00] LABS: BASO % 0.8 % (0-2.0); EOS % 4.9 % (0-4.5); HEMATOCRIT 40.2 % (35.4-49); HEMOGLOBIN 13.2 GM/dL (11.7-16.9); LYMPH % 24.1 % (8-40); MCH 26.3 pg (25.7-33.7); MCHC 32.8 g/dl (32.0-35.9); MEAN CELL VOLUME 80.1 fl (80-96); MEAN PLT VOLUME 7.5 fl (7.5-11.1); MONO % 5.3 % (3.8-10.2); NEUT % 64.9 % (42.8-82.8); PLATELET COUNT 319 K/MM3 (134-434); RBC 5.03 M/mm3 (4.00-5.60); RDW 15.4 % (11.9-15.9); WHITE BLOOD COUNT 8.6 K/mm3 (4.0-10.0)
--- NOTE | 2020-02-03 09:00 | PDOC ---
History of Present Illness - General Chief Complaint: Shortness of Breath Stated Complaint: SOB Time Seen by Provider: 02/03/20 07:52 - History of Present Illness Initial Comments: 02/03/20 09:02 49yo M with PMHx of HTN, Asthma, Bronchitis, COPD, Pneumonia, daily heroin use, and active smoker who presents with SOB. Patient explained that he started feeling short of breath at around 6am today so decided to come to the ED. Aylina ined that he was admitted two weeks ago for an asthma exacerbation, staying in the hospital for one week. He often experiences symptoms of asthma, using his albuterol inhaler daily as well as at night. He does not use any other medications at home for his asthma and cannot remember if he was discharged on any other meds s/p the last hospital admission. Furthermore, he snorts 3 bags of heroin (since 10 years or more) every morning but did not snort any today. He feels that he may be experiencing withdrawal and was wondering if methadone is indicated for him. Said that he was in rehab recently but signed himself out. He feels regretful and expressed interest in going to [facility] after his respiratory symptoms have been managed. Patient smokes ~1ppd since approximately 10 years. Endorses "bad" SOB, dry cough (since 2 days), and wheezing. Furthermore, patient is feeling very cold, repeatedly asking for warm blankets. Does not feel sweaty despite being visibly diaphoretic. Past History - Medical History Allergies/Adverse Reactions: Allergies Allergy/AdvReac Type Severity Reaction Status Date / Time No Known Allergies Allergy Verified 02/03/20 07:42 Anemia: No Asthma: Yes Cancer: No Cardiac Disorders: No CVA: No COPD: No CHF: No DVT: No Dementia: No Diabetes: No GI Disorders: No Disorders: No HTN: Yes Hypercholesterolemia: No Kidney Stones: No Liver Disease: No Seizures: No Thyroid Disease: No - Surgical History Abdominal Surgery: No Appendectomy: No Cardiac Surgery: No Cholecystectomy: No Lung Surgery: No Neurologic Surgery: No Orthopedic Surgery: No - Reproductive History Testicular Surgery: No - Immunization History Td Vaccination: Yes Immunization Up to Date: Yes - Psycho-Social/Smoking History Smoking Status: Yes Smoking History: Current every day smoker Years of Tobacco Use: 40 Have you smoked in the past 12 months: Yes Number of Cigarettes Smoked Daily: 20 If you are a former smoker, when did you quit?: 2017 Cigars Per Day: 0 Information on smoking cessation initiated: Yes 'Breaking Loose' booklet given: 01/06/20 - Substance Abuse Hx (Audit-C & DAST Scrn) How often the patient has a drink containing alcohol: Never Score: In Men: 4 or > Positive; In Women: 3 or > Positive: 0 Screen Result (Pos requires Nsg. Audit-10AR): Negative In the last yr the pt used illegal drug/Rx for NonMed reason: No Score: Yes response is considered Positive: 0 Screen Result (Positive result requires Nsg. DAST-10): Negative Review of Systems - Review of Systems Constitutional: Yes: Symptoms Reported (endorsed general malaise, denied fevers, chills, feeling diaphoretic ) HEENTM: Yes: Symptoms Reported (denied changes in vision/hearing/smelling, thr oat pain/swelling. Endorsed dry cough ) Respiratory: Yes: Symptoms reported (endorsed "bad" SOB, wheezing, dry cough ) Cardiac (ROS): Yes: Symptoms Reported (denied paplpitations, CP, dizziness) ABD/GI: Yes: Symptoms Reported (denied NVDC, abdominal pain/distension) : Yes: Symptoms Reported (denied polyuria, dysuria, urgency ) Musculoskeletal: Yes: Symptoms Reported (denied pain/swelling in all extremities bilaterally ) Integumentary: Yes: Symptoms Reported (denied pruritis or any rashes ) *Physical Exam - Vital Signs Last Vital Signs Temp Pulse Resp BP Pulse Ox 98.3 F 115 H 22 H 151/100 97 02/03/20 07:35 02/03/20 07:35 02/03/20 07:35 02/03/20 07:35 02/03/20 07:35 - Physical Exam 02/03/20 09:36 GENERAL: M, appears stated age, oversight body habitus, AAOx4 in moderate distress, diaphoretic, lacrimation, yawning, shivering, some restlessness HEAD: Normal with no signs of trauma EYES: PERRL, direct and consensual pupillary reflexes intact bilaterally, extraocular movements intact bilaterally EARS, NOSE, THROAT: Moist mucous membranes NECK: No lymphadenopathy or masses noted LUNGS: marked inspiratory rhonchi and expiratory wheezing on anterior and posterior chest, more pronounced in L lung hart HEART: tachycardic, normal S1 and S2 without murmur ABDOMEN: Soft, nontender, protuberant, hypoactive bowel sounds EXTREMITIES: 1+ radial and dorsalis pedis pulses, warm to touch bilaterally, nontender to palpation, no peripheral edema appreciated, no active lesions or ulcers noted on feet bilaterally including interdigital web spaces, athletes foot noted NEUROLOGICAL: Cranial nerves II-XII grossly intact. Normal speech with symmetricalfacial movements PSYCHIATRIC: Cooperative and interactive but apparently unwell, responds appropriately. Limited eye contact SKIN: Warm, athletes foot, no other rashes or lesions noted ED Treatment Course - LABORATORY CBC & Chemistry Diagram: 02/03/20 08:20 02/03/20 08:20 - Medications Given in the ED: ED Medications Discontinued Medications Generic Name Dose Route Start Last Admin Trade Name Freq PRN Reason Stop Dose Admin Albuterol Sulfate 2 puff 02/03/20 07:43 02/03/20 07:55 Ventolin Hfa Inhaler - IH 02/03/20 07:44 2 puff ONCE ONE Administration Magnesium Sulfate 1 gm 02/03/20 07:43 02/03/20 08:30 Magnesium Sulfate IVPB 02/03/20 07:44 1 gm ONCE ONE Administration Methylprednisolone Sodium Succinate 125 mg 02/03/20 07:43 02/03/20 08:15 Solu-Medrol - IVPB 02/03/20 07:44 125 mg ONCE ONE Administration Medical Decision Making - Medical Decision Making 02/03/20 09:43 Assessment: 49yo M with PMHx of HTN, Asthma, Bronchitis, COPD, Pneumonia, daily heroin use, and active smoker who presents with SOB and further managed in the ED for asthma exacerbation. Plan: General Management: -CBC -CMP -Mg, Phos -Trop -CXR -EKG Asthma specific management: -continuous albuterol tx -duonebs x3 -IV solumedrol, 125 once -IV Mg, 2g once > continue monitoring for improved pulm fxn Heroin addiction: -suboxone 07/15 once > Patient is interested in treatment for his heroin addiction - [facility] candidate after pulmonary function improves. 02/03/20 10:11 02/03/20 10:[address] Diaz for admission 02/03/20 10:59 02/03/20 11:[address] Diaz who accepted the admission. Discharge - Discharge Information Problems reviewed: Yes Clinical Impression/Diagnosis: Heroin withdrawal Asthma exacerbation Qualifiers: Asthma severity: unspecified severity Asthma persistence: unspecified Qualified Code(s): J45.901 - Unspecified asthma with (acute) exacerbation Condition: Guarded - Admission Yes - Follow up/Referral - Patient Discharge Instructions - Post Discharge Activity
[2020-02-03 09:26] LABS: CHLORIDE 106 mmol/L (98-107); POTASSIUM 4.4 mmol/L (3.5-5.1); SODIUM 140 mmol/L (136-145)
[2020-02-03 09:28] LABS: CALCIUM 9.6 mg/dL (8.5-10.1)
[2020-02-03 09:29] LABS: ALBUMIN 3.4 g/dl (3.4-5.0); GLUCOSE,RANDOM 89 mg/dL (74-106)
[2020-02-03 09:30] LABS: ANION GAP 7 MMOL/L (8-16); BLOOD UREA NITROGEN 12.9 mg/dL (7-18); CO2 27 mmol/L (21-32)
[2020-02-03 09:32] LABS: SGOT/AST 15 U/L (15-37)
[2020-02-03 09:33] LABS: CREATININE 0.8 mg/dL (0.55-1.3); SGPT/ALT 21 U/L (13-61); TOT PROT 7.3 g/dl (6.4-8.2)
[2020-02-03 09:35] LABS: BILIRUBIN,TOTAL 0.4 mg/dL (0.2-1)
[2020-02-03 09:36] LABS: ALK PHOS 93 U/L (45-117)
[2020-02-03] MEDS ORDERED: BUPRENORPHINE/NALOXONE 4 MG/1 MG FILM PACKET SL ONE (10:05)
[2020-02-03] MEDS ORDERED: ALBUTEROL SO4 2.5/IPRATROPIUM 0.5 INH SOL 3 ML VIAL.NEB. NEB ONE ×4 (10:06→11:31)
--- OUTSIDE RECORDS SUMMARY | 2020-02-03 11:26 | XMS ---
:1970 Author Organization [facility] Care Team Providers Name Role Phone SARAH DILLARD Unavailable Unavailable ED STAFF PHYSICIAN, STAFF Unavailable Unavailable EMERGENCY SERVICE, X Unavailable Unavailable ED STAFF PHYSICIAN, YOLANDA Unavailable [facility]available [facility] Unavailable Unavailable ED STAFF PHYSICIAN [...] is protected by Article 27-F of the [place] Public Health law. If you continue you may haveaccess to information: Regarding HIV / AIDS; Provided by facilities licensed or operated by the [facility] Office of Mental Health; or Provided by the [facility] Office for People With Developmental Disabilities. If such information is present, then the following [facility] mandated warning applies: This information has [...] law may result in a fine or senior care sentence or both. A general authorization for the release of medical or other information is NOT sufficient authorization for further disclosure. Encounters Encounter Providers Location Date Indications Data Source(s ) Emergency Attender: [facility] ED H 09/21/2019 [facility] STAFF 04:35:00 PM EDT Medical C enter PHYSICIANAttender: - 09/21/2019 STAFF ED STAFF 06:39:00 PM EDT PHYSICIANAdmitter: [facility] ED STAFF PHYSICIAN Patient discharged. Emergency Attender: ED STAFF H 07/27/2019 04:09:00 PM [facility] PHYSICIANAttender: [facility] ED EDT - 07/27/2019 [facility] STAFF PHYSICIANAttender: STAFF 04:44:00 PM EDT ED STAFF PHYSICIANAdmitter: ED STAFF PHYSICIANReferrer: STAFF ED STAFF PHYSICIAN Patient discharged. Emergency Attender: [facility] ED STAFF 07/27/2019 12:15:00 PM [facility] PHYSICIANAttender: STAFF ED EDT - 07/27/2019 [facility] STAFF PHYSICIANAdmitter: YOLANDA 01:35:00 PM EDT ED STAFF PHYSICIAN Patient discharged. Outpatient Attender: [id number] 06/03/2019 12:25:33 PM [facility] ([facility]) Patient admitted. Emergency Attender: NISHANT 03/11/2019 11:34:00 PAIN [facility] CAROLAttender: EMERGENCY AM EST Health Care SERVICE, XAdmitter: SARAH Pastrana 11/07/2018 12:00:00 AM EDT - 018 12:00:00 [facility] AM EST Medications Medication Brand Start Product [...] name Policy type Policy ID Covered Covered green party's Policy P judson / Coverage green party ID relationship to Abad Inf ormation type abda MVP MEDICAID [id number] SP [id number] HMO MVP MEDICAID [id number] SP [id number] HMO MEDICAID [id number] SP [id number] MEDICAID [id number] SP [id number] 01 [id number] PENDING [id number] EXCHANGE SELF PAY SP INSURANCE MVP/HHP O [id number] 01 [id number] MVP MEDICAID [id number] SP [id number] HMO [place] [id number] SP [id number] HEALTH-MVP SELF PAY 0000 Self 0000 MEDICAID INP [id number] Self [id number] U PSYCH MMC MVP [id number] Self [id number] [facility] [id number] PT [id number] ABREU [employer] [facility] [id number] PT [id number] ABREU [employer] [place] [id number] SP [id number] HEALTH-MVP MVP/HHP O [id number] Problems, Conditions, and Diagnoses Code Display Name Description Problem Type Effective Data Sour ce(s) Dates Z53.20 Procedure and PROC/TRTMT NOT CRD Diagnosis 09/21/2019 Neil Forman treatment not OUT BEC PT 04:35:00 PM Medical Ce danielle carried out DECISION FOR UNSP EDT because of REASONS patient's decision for unspecified reasons J45.909 Unspecified UNSPECIFIED Diagnosis 09/21/2019 [place] [facility] asthma, ASTHMA, 04:35:00 PM [facility] Cent[facility] [...] F91.9 Conduct disorder, CONDUCT DISORDER, Diagnosis 07/27/2019 [facility] unspecified UNSPECIFIED 04:09:[address] EDT J45.909 Unspecified UNSPECIFIED Diagnosis 03/11/2019 [place] asthma, ASTHMA, 11:34:00 AM [facility] R06.2 Wheezing WHEEZING Diagnosis 03/11/2019 [place] 11:34:00 AM [facility] Results ID Date Data Source [id number] 01/13/2020 08:26:00 PM EDT [facility] Name Value Range Interpretation Description Data Sup porting Code Source(s) Document(s ) SARS [facility] coronavirus 2 RNA This lab was ordered by [facility] and reported by [facility]. ID Date Data Source [id number] 01/06/2020 12:00:00 PM EDT [facility] Name Value Range Interpretation Description Data Sup porting Code Source(s) Document(s ) SARS [facility] coronavirus 2 RNA This lab was ordered by [facility] Russ Grijalva and reported by [facility]. ID Date Data Source [id number] 09/07/2019 12:25:00 AM EDT [facility] Name Value Range Interpretation Description Data Sup porting Code Source(s) Document(s ) SARS [facility] CORONAVIRUS 2 RNA This lab was ordered by [facility] and reported by [facility]. ID Date Data Source [id number] 08/25/2019 10:40:00 AM EDT [facility] Name Value Range Interpretation Description Data Sup porting Code Source(s) Document(s ) SARS [facility] CORONAVIRUS 2 RNA This lab was ordered by [facility] and reported by [facility]. Procedure Social History Code Duration Value Status Description Data Source(s ) Smoking 09/21/2019 04:51:00 Daily Smoker completed Daily Smoker S [facility] EDT Center Smoking 09/21/2019 04:50:00 Daily Smoker completed Daily Smoker S [facility] EDT Center Smoking 09/21/2019 04:44:00 Daily Smoker completed Daily Smoker S [facility] EDT Center Smoking 07/27/2019 04:20:00 Daily Smoker completed Daily Smoker S [facility] EDT Center Smoking 07/27/2019 04:15:00 Daily Smoker completed Daily Smoker S [facility] EDT Center Smoking 07/27/2019 04:13:00 Daily Smoker completed Daily Smoker S [facility] EDT Center Smoking 07/27/2019 12:26:00 Daily Smoker completed Daily Smoker S [facility] EDT Center Smoking 07/27/2019 12:16:00 Daily Smoker completed Daily Smoker S [facility] EDT Center Vital Signs ID Date Data Source UNK Name Value Range Interpretation Code Description Data Source(s) Body weight 83.550274 kg 83.845164 kg [facility] Body temperature 36.397294 36.596170 [facility] Respiratory rate 18 /min 18 /min [facility] Oxygen saturation 97 % 97 % [facility] by Pulse oximetry Heart rate 95 /min 95 /min [facility] Body height 170.303867 170.424862 cm [facility] Diastolic blood 93 mm[Hg] 93 mm[Hg] [facility] Systolic blood 150 mm[Hg] 150 mm[Hg] [facility] Body mass index 28.9 kg/m2 28.9 kg/m2 [facility] (BMI) [Ratio] Medical [facility] Body temperature 36.493503 36.221674 [facility] Respiratory rate 17 /min 17 /min [facility] Oxygen saturation 98 % 98 % [facility] by Pulse oximetry Heart rate 121 /min 121 /min [facility] Diastolic blood 89 mm[Hg] 89 mm[Hg] [facility] Systolic blood 136 mm[Hg] 136 mm[Hg] [facility] Body weight 85.109854 kg 85.473488 kg [facility] Body temperature 37.358150 37.989441 [facility] Respiratory rate 18 /min 18 /min [facility] Oxygen saturation 98 % 98 % [facility] by Pulse oximetry Heart rate 90 /min 90 /min [facility] Body height 172.556201 172.069742 cm [facility] Center Diastolic blood 88 mm[Hg] 88 mm[Hg] [facility] pressure Medical Center Systolic blood 148 mm[Hg] 148 mm[Hg] [facility] pressure [facility] Center Body mass index 28.4 kg/m2 28.4 kg/m2 [facility] (BMI) [Ratio] Medical [facility] Patient Treatment Plan of Care Planned Activity Planned Date Details Description Data Source (s) Marisa 0.5/3mg/3mL 03/11/2019 12:07:07 [facility] EST [facility]
[2020-02-03] MEDS ORDERED: ALBUTEROL SO4 HFA INHALER IH PRN (11:34)
[2020-02-03] MEDS ORDERED: METOCLOPRAMIDE HCL INJECTION 10 MG/2 ML VIAL IVPB ONE (12:12)
[2020-02-03] MEDS ORDERED: ONDANSETRON 4 MG/2 ML VIAL IVPUSH ONE (12:13)
[2020-02-03] MEDS ORDERED: SODIUM CHLORIDE 1,000 ML IV STA (12:18)
--- NOTE | 2020-02-03 14:12 | EKG ---
Test Reason : Blood Pressure : / mmHG Vent. Rate : 102 BPM Atrial Rate : 102 BPM P-R Int : 174 ms QRS Dur : 080 ms QT Int : 316 ms P-R-T Axes : 072 059 071 degrees QTc Int : 411 ms POOR DATA QUALITY, INTERPRETATION MAY BE ADVERSELY AFFECTED SINUS TACHYCARDIA OTHERWISE NORMAL ECG WHEN COMPARED WITH ECG OF 13-JAN-2020 18:29, NO SIGNIFICANT CHANGE WAS FOUND Confirmed by MD OPAL, BERNIE ([id number]) on 02/03/2020 2:12:04 PM Referred By: Confirmed By:BERNIE JOSEPH MD
--- NOTE | 2020-02-03 19:04 | HP ---
Admitting History and Physical - Primary Care Physician PCP: Flavia Diaz - Admission History of Present Illness: 49yo M with PMHx of HTN, Asthma, Bronchitis, COPD, Pneumonia, daily heroin use, and active smoker who presents with SOB. Patient explained that he started feeling short of breath at around 6am today so decided to come to the ED. Explained that he was admitted two weeks ago for an asthma exacerbation, staying in the hospital for one week. He often experiences symptoms of asthma, using his albuterol inhaler daily as well as at night. He does not use any other m edications at home for his asthma and cannot remember if he was discharged on any other meds s/p the last hospital admission. Furthermore, he snorts 3 bags of heroin (since 10 years or more) every morning but did not snort any today. He feels that he may be experiencing withdrawal and was wondering if methadone is indicated for him. Said that he was in rehab recently but signed himself out. He feels regretful and expressed interest in going to [facility] after his respiratory symptoms have been managed. - Past Medical History Cardiovascular: Yes: HTN Pulmonary: Yes: Asthma, Bronchitis, COPD, Pneumonia Psych: Yes: Addictions (heroin) - Past Surgical History Past Surgical History: Yes: None - Smoking History Smoking history: Current every day smoker Have you smoked in the past 12 months: Yes Aproximately how many cigarettes per day: 20 If you are a former smoker, when did you quit?: 2017 - Alcohol/Substance Use Hx Alcohol Use: Yes History of Substance Use: reports: Heroin - Social History ADL: Independent Occupation: Unemployed History of Recent Travel: No Home Medications - Allergies Allergies/Adverse Reactions: Allergies Allergy/AdvReac Type Severity Reaction Status Date / Time No Known Allergies Allergy Verified 02/03/20 07:42 Physical Examination Vital Signs: Vital Signs Temperature 98.3 F 02/03/20 13:24 Pulse Rate 104 H 02/03/20 13:24 Respiratory Rate 20 02/03/20 13:24 Blood Pressure 130/83 02/03/20 13:24 O2 Sat by Pulse Oximetry (%) 100 02/03/20 13:24 Constitutional: Yes: No Distress HENT: Yes: Atraumatic Neck: Yes: Supple Cardiovascular: Yes: Regular Rate and Rhythm Respiratory: Yes: Rhonchi, Wheezes Gastrointestinal: Yes: Normal Bowel Sounds Extremities: Yes: WNL Neurological: Yes: Alert, Oriented Labs: CBC, BMP 02/03/20 08:20 02/03/20 08:20 Imaging - Results X-ray: Report Reviewed Problem List - Problems (1) Heroin withdrawal Assessment/Plan: MONITOR DETOX CONSULT Code(s): 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 (2) Asthma exacerbation Assessment/Plan: DUO NEBS PRN IV STEROIDS PULMONARY CONSULT Code(s): J45.901 - UNSPECIFIED ASTHMA WITH (ACUTE) EXACERBATION Qualifiers: Asthma severity: unspecified severity Asthma persistence: unspecified Qualified Code(s): J45.901 - Unspecified asthma with (acute) exacerbation Assessment/Plan Laboratory Tests 02/03/20 02/03/20 08:20 08:20 WBC 8.6 RBC 5.03 Hgb 13.2 Hct 40.2 D MCV 80.1 MCH 26.3 MCHC 32.8 RDW 15.4 Plt Count 319 MPV 7.5 Absolute Neuts (auto) 5.6 Neutrophils % 64.9 D Lymphocytes % 24.1 D Monocytes % 5.3 D Eosinophils % 4.9 H D Basophils % 0.8 D Nucleated RBC % 0 Sodium 140 Potassium 4.4 Chloride 106 Carbon Dioxide 27 Anion Gap 7 L BUN 12.9 Creatinine 0.8 Est GFR (CKD-EPI)AfAm 122.43 Est GFR (CKD-EPI)NonAf 105.63 Random Glucose 89 Calcium 9.6 Magnesium 2.0 Total Bilirubin 0.4 AST 15 ALT 21 Alkaline Phosphatase 93 Creatine Kinase 62 Troponin I < 0.02 Total Protein 7.3 Albumin 3.4 Alcohol, Quantitative < 3 Active Medications Generic Name Dose Route Start Last Admin Trade Name Freq PRN Reason Stop Dose Admin Albuterol Sulfate 2 puff 02/03/20 11:34 Ventolin Hfa Inhaler - IH Q2H PRN SHORT OF BREATH/WHEEZING Active Medications Generic Name Dose Route Start Last Admin Trade Name Freq PRN Reason Stop Dose Admin Albuterol Sulfate 2 puff 02/03/20 11:34 Ventolin Hfa Inhaler - IH Q2H PRN SHORT OF BREATH/WHEEZING Albuterol/Ipratropium 1 amp 02/03/20 20:17 Duoneb - NEB Q4H PRN SHORTNESS OF BREATH Heparin Sodium (Porcine) 5,000 unit 02/03/20 22:00 Heparin - SQ BID [facility] Methylprednisolone Sodium Succinate 80 mg 02/03/20 20:30 Solu-Medrol - IVPUSH Q8H [facility] covering for dr diaz today
[2020-02-03] MEDS ORDERED: ALBUTEROL SO4 2.5/IPRATROPIUM 0.5 INH SOL 3 ML VIAL.NEB. NEB PRN (20:17)
[2020-02-03] MEDS ORDERED: methylPREDNISolone NA SUCC 40 MG/1 ML VIAL IVPUSH SCH ×2 (20:30→20:38)
[2020-02-03] MEDS ORDERED: HEPARIN NA (PORCINE) 5,000 UNITS/ML 1ML VIAL SQ SCH (22:00)
[2020-02-03] MEDS ORDERED: HEPARIN NA (PORCINE) 5,000 UNITS/ML 1ML VIAL ONE (23:39)
[2020-02-04] MEDS ORDERED: methylPREDNISolone NA SUCC 40 MG/1 ML VIAL ONE (02:45)
[2020-02-04 07:32] VITALS: BP 153/93; PULSE 101; TEMP 98.1
== END 2020-02-04 09:45 | disposition left against medical advice (07) | DRG 141 ==
LOC: JER 07:35 → JERBED 10:10
PROVIDERS: ADMIT Internal Medicine; ATTEND Internal Medicine
DX: J45.901 Unspecified asthma with (acute) exacerbation (principal); F17.210 Nicotine dependence, cigarettes, uncomplicated; F11.23 Opioid dependence with withdrawal; I10 Essential (primary) hypertension
CPT/HCPCS: 36415; 71045-TC-FY; 80053; 80307; 82550; 83735; 84484; 85025; 93005; 93010; 99285-25; C9803; J1644; U0003

== ENCOUNTER 2020-03-17 06:13 | Day surgery (SDC) | payer OTHER ==
[2020-03-16 13:49] VITALS: BMI 30.4
[~2020-03-17 06:13] MED LIST changes: +ACETAMINOPHEN 325 MG TABLET (FP) PO PRN; -ALBUTEROL SO4 2.5/IPRATROPIUM 0.5 INH SOL 3 ML VIAL.NEB. NEB ONE; -AZITHROMYCIN 250 MG TABLET ONE; -AZITHROMYCIN 500 MG TABLET PO ONE; +BSS (NA/CA/MG/K) BALANCED SALT SOLUTION OPHTH SOLN 15 ML BOTTLE OD ONE; +BUPIVACAINE HCL/PF 0.75% 10 ML VIAL RB ONE; +CHONDROITIN SU A/HYALUR SOD 1 KIT IO ONE; +CYCLOPENTOLATE HCL 1% OPHTH SOLN 2 ML BOTTLE OP SCH; +EPINEPHrine/PF 1 MG/1 ML (1:1,000) AMPULE SQ ONE; +KETOROLAC TROMETHAMINE 0.5% EYE DROP 1 DROP DROPS OP SCH; +LIDOCAINE HCL 1% PRESERVATIVE FREE - 30ML VIAL IO ONE; +LIDOCAINE HCL/PF 2% SDV 5ML VIAL PNB ONE; +OFLOXACIN 0.3% OPHTHALMIC SOLUTION 5 ML BOTTLE OP SCH; +PHENYLEPHRINE 2.5% OPHTH SOLN 15 ML BOTTLE OP SCH; +POVIDONE-IODINE 5% OPHTHALMIC PREP 30 ML SOLUTION OD ONE; +TROPICAMIDE 1% OPHTH SOLN 15 ML BOTTLE OP SCH; -predniSONE 20 MG TABLET (UD) ONE; -predniSONE 20 MG TABLET (UD) PO ONE
[2020-03-17] MEDS ORDERED: CHONDROITIN SU A/HYALUR SOD 1 KIT ONE (07:17)
[2020-03-17] MEDS ORDERED: LIDOCAINE HCL/PF 1% SDV 5ML VIAL ONE (07:22)
[2020-03-17] MEDS ORDERED: BSS (NA/CA/MG/K) BALANCED SALT SOLUTION OPHTH SOLN 15 ML BOTTLE ONE (07:23)
[2020-03-17] MEDS ORDERED: TETRACAINE 0.5% OPHTH SOLN 2 ML BOTTLE ONE (07:23)
[2020-03-17] MEDS ORDERED: POVIDONE-IODINE 5% OPHTHALMIC PREP 30 ML SOLUTION ONE (07:23)
[2020-03-17] MEDS ORDERED: TROPICAMIDE 1% OPHTH SOLN 15 ML BOTTLE ONE (07:48)
[2020-03-17] MEDS ORDERED: CYCLOPENTOLATE HCL 1% OPHTH SOLN 2 ML BOTTLE ONE (07:49)
[2020-03-17] MEDS ORDERED: OFLOXACIN 0.3% OPHTHALMIC SOLUTION 5 ML BOTTLE ONE (07:49)
[2020-03-17] MEDS ORDERED: KETOROLAC TROMETHAMINE 0.5% EYE DROP 1 DROP DROPS ONE (07:49)
[2020-03-17] MEDS ORDERED: OFLOXACIN 0.3% OPHTHALMIC SOLUTION 5 ML BOTTLE OD ONE ×3 (08:30→08:40)
[2020-03-17] MEDS ORDERED: KETOROLAC TROMETHAMINE 0.5% EYE DROP 1 DROP DROPS OD ONE ×3 (08:30→08:40)
[2020-03-17] MEDS ORDERED: TROPICAMIDE 1% OPHTH SOLN 15 ML BOTTLE OD ONE ×3 (08:30→08:40)
[2020-03-17] MEDS ORDERED: PHENYLEPHRINE 2.5% OPHTH SOLN 15 ML BOTTLE OD ONE ×3 (08:30→08:40)
[2020-03-17] MEDS ORDERED: CYCLOPENTOLATE HCL 1% OPHTH SOLN 2 ML BOTTLE OD ONE ×3 (08:30→08:40)
[2020-03-17] MEDS ORDERED: TRYPAN BLUE 0.5 ML DISP.SYRIN ONE (10:02)
[2020-03-17] MEDS ORDERED: MIDAZOLAM HCL 2 MG/2 ML SINGLE DOSE VIAL ONE (10:24)
[2020-03-17] MEDS ORDERED: PROPOFOL 20 ML ONE (10:24)
[2020-03-17] MEDS ORDERED: LIDOCAINE HCL/PF 2% SDV 5ML VIAL ONE (10:24)
[2020-03-17] MEDS ORDERED: BUPIVACAINE HCL/PF 0.75% 10 ML VIAL RB ONE (10:30)
[2020-03-17] MEDS ORDERED: LIDOCAINE HCL/PF 2% SDV 5ML VIAL PNB ONE (10:30)
[2020-03-17] MEDS ORDERED: POVIDONE-IODINE 5% OPHTHALMIC PREP 30 ML SOLUTION OD ONE (10:33)
[2020-03-17] MEDS ORDERED: BSS (NA/CA/MG/K) BALANCED SALT SOLUTION OPHTH SOLN 15 ML BOTTLE OD ONE (10:37)
[2020-03-17] MEDS ORDERED: LIDOCAINE HCL 1% PRESERVATIVE FREE - 30ML VIAL IO ONE (10:37)
[2020-03-17] MEDS ORDERED: CHONDROITIN SU A/HYALUR SOD 1 KIT IO ONE (10:37)
[2020-03-17] MEDS ORDERED: EPINEPHrine/PF 1 MG/1 ML (1:1,000) AMPULE SQ ONE (10:43)
[2020-03-17 12:19] VITALS: TEMP 97.8
[2020-03-17 14:47] VITALS: BP 116/70; PULSE 78
== END 2020-03-17 12:45 | disposition home or self-care (01) ==
LOC: JASU-SURG 06:13
PROVIDERS: ATTEND Ophthalmology
PROC: 08RJ3JZ Replacement of Right Lens with Synthetic Substitute, Percutaneous Approach (ICD-10-PCS; principal; 2020-03-17 10:00)
DX: H26.9 Unspecified cataract (principal)

== ENCOUNTER 2020-03-31 04:43 | Day surgery (SDC) | payer OTHER ==
[2020-03-30 15:54] VITALS: BMI 30.4
[~2020-03-31 04:43] MED LIST changes: -ACETAMINOPHEN 325 MG TABLET (FP) PO PRN; -BSS (NA/CA/MG/K) BALANCED SALT SOLUTION OPHTH SOLN 15 ML BOTTLE OD ONE; +BSS (NA/CA/MG/K) BALANCED SALT SOLUTION OPHTH SOLN 15 ML BOTTLE OS ONE; -BUPIVACAINE HCL/PF 0.75% 10 ML VIAL RB ONE; -CYCLOPENTOLATE HCL 1% OPHTH SOLN 2 ML BOTTLE OP SCH; -KETOROLAC TROMETHAMINE 0.5% EYE DROP 1 DROP DROPS OP SCH; -LIDOCAINE HCL/PF 2% SDV 5ML VIAL PNB ONE; -OFLOXACIN 0.3% OPHTHALMIC SOLUTION 5 ML BOTTLE OP SCH; -PHENYLEPHRINE 2.5% OPHTH SOLN 15 ML BOTTLE OP SCH; -POVIDONE-IODINE 5% OPHTHALMIC PREP 30 ML SOLUTION OD ONE; +POVIDONE-IODINE 5% OPHTHALMIC PREP 30 ML SOLUTION OS ONE; +TETRACAINE 0.5% OPHTH SOLN 2 ML BOTTLE OS ONE; -TROPICAMIDE 1% OPHTH SOLN 15 ML BOTTLE OP SCH
[2020-03-31] MEDS ORDERED: EPINEPHrine/PF 1 MG/1 ML (1:1,000) AMPULE ONE (07:18)
[2020-03-31] MEDS ORDERED: LIDOCAINE HCL/PF 1% SDV 5ML VIAL ONE (07:18)
[2020-03-31] MEDS ORDERED: TETRACAINE 0.5% OPHTH SOLN 2 ML BOTTLE ONE (07:18)
[2020-03-31] MEDS ORDERED: CHONDROITIN SU A/HYALUR SOD 1 KIT ONE (07:21)
[2020-03-31] MEDS ORDERED: OFLOXACIN 0.3% OPHTHALMIC SOLUTION 5 ML BOTTLE ONE (08:24)
[2020-03-31] MEDS ORDERED: CYCLOPENTOLATE HCL 1% OPHTH SOLN 2 ML BOTTLE ONE (08:24)
[2020-03-31] MEDS ORDERED: TROPICAMIDE 1% OPHTH SOLN 15 ML BOTTLE ONE (08:24)
[2020-03-31] MEDS ORDERED: KETOROLAC TROMETHAMINE 0.5% EYE DROP 1 DROP DROPS ONE (08:24)
[2020-03-31] MEDS: CYCLOPENTOLATE HCL 1% OPHTH SOLN 2 ML BOTTLE OP SCH ×2 (08:40→08:50)
[2020-03-31] MEDS: TROPICAMIDE 1% OPHTH SOLN 15 ML BOTTLE OP SCH ×2 (08:40→08:51)
[2020-03-31] MEDS: KETOROLAC TROMETHAMINE 0.5% EYE DROP 1 DROP DROPS OP SCH ×2 (08:40→08:50)
[2020-03-31] MEDS: PHENYLEPHRINE 2.5% OPHTH SOLN 15 ML BOTTLE OP SCH ×2 (08:40→08:51)
[2020-03-31] MEDS: OFLOXACIN 0.3% OPHTHALMIC SOLUTION 5 ML BOTTLE OP SCH ×2 (08:40→08:51)
[2020-03-31] MEDS ORDERED: BUPIVACAINE HCL/PF 0.75% 10 ML VIAL ONE (10:18)
[2020-03-31] MEDS ORDERED: LIDOCAINE HCL/PF 2% SDV 5ML VIAL ONE (10:18)
[2020-03-31] MEDS ORDERED: MIDAZOLAM HCL 2 MG/2 ML SINGLE DOSE VIAL ONE (10:31)
[2020-03-31] MEDS ORDERED: PROPOFOL 20 ML ONE (10:36)
[2020-03-31] MEDS ORDERED: LIDOCAINE HCL/PF 2% SDV 5ML VIAL PNB ONE (10:37)
[2020-03-31] MEDS ORDERED: BUPIVACAINE HCL/PF 0.75% 10 ML VIAL RB ONE (10:37)
[2020-03-31] MEDS ORDERED: POVIDONE-IODINE 5% OPHTHALMIC PREP 30 ML SOLUTION OS ONE (10:41)
[2020-03-31] MEDS ORDERED: BSS (NA/CA/MG/K) BALANCED SALT SOLUTION OPHTH SOLN 15 ML BOTTLE OS ONE (10:48)
[2020-03-31] MEDS ORDERED: LIDOCAINE HCL 1% PRESERVATIVE FREE - 30ML VIAL IO ONE (10:48)
[2020-03-31] MEDS ORDERED: CHONDROITIN SU A/HYALUR SOD 1 KIT IO ONE (10:48)
[2020-03-31] MEDS ORDERED: EPINEPHrine/PF 1 MG/1 ML (1:1,000) AMPULE SQ ONE (10:54)
[2020-03-31] MEDS ORDERED: ACETAMINOPHEN 325 MG TABLET (FP) PO PRN (11:50)
[2020-03-31 12:29] VITALS: PULSE 78
[2020-03-31 13:04] VITALS: BP 123/88; TEMP 97.8
== END 2020-03-31 13:15 | disposition home or self-care (01) ==
LOC: JASU-SURG 04:43
PROVIDERS: ATTEND Ophthalmology
PROC: 08RK3JZ Replacement of Left Lens with Synthetic Substitute, Percutaneous Approach (ICD-10-PCS; principal; 2020-03-31 10:00)
DX: H26.9 Unspecified cataract (principal)

== ENCOUNTER 2020-04-13 09:08 | Inpatient (IN) | payer OTHER ==
[2020-04-13 09:33] VITALS: BMI 29.6
[2020-04-13] MEDS ORDERED: METHOCARBAMOL 500 MG TABLET PO PRN (10:17)
[2020-04-13] MEDS ORDERED: IBUPROFEN 400 MG TABLET (FP) PO PRN (10:17)
[2020-04-13] MEDS ORDERED: NICOTINE POLACRILEX 2 MG GUM BUC PRN (10:17)
[2020-04-13] MEDS ORDERED: cloNIDine HCL 0.1 MG TABLET PO PRN (10:17)
[2020-04-13] MEDS ORDERED: MAG HYDROX/AL HYDROX/SIMETH 30 ML UNIT-DOSE CUP PO PRN (10:17)
[2020-04-13] MEDS ORDERED: MAGNESIUM HYDROX 2400MG/30ML ORAL SUSPENSION 30 ML CUP PO PRN (10:17)
[2020-04-13] MEDS ORDERED: MAGNESIUM CITRATE 300 ML BOTTLE PO PRN (10:17)
[2020-04-13] MEDS ORDERED: ONDANSETRON *ODT* 4 MG TABLET SL PRN (10:17)
[2020-04-13] MEDS ORDERED: ACETAMINOPHEN 325 MG TABLET (FP) PO PRN ×2 (10:17)
[2020-04-13] MEDS ORDERED: BISMUTH SUBSALICYLATE 262 MG/15 ML BTL PO PRN (10:17)
[2020-04-13] MEDS ORDERED: methaDONE HCL 10 MG TABLET (FOR DETOX USE ONLY) PO ONE (10:17)
[2020-04-13] MEDS ORDERED: MENTHOL/PHENOL 1 EACH UD MM PRN (10:17)
[2020-04-13] MEDS: PRENATAL VITAMINS W/ FOLIC ACID TABLET (FP) PO SCH (11:05)
[2020-04-13] MEDS: BUDESONIDE/FORMETEROL FUMARATE 160/4.5 mcg INHALER IH SCH ×2 (11:46→22:25)
[2020-04-13] MEDS: hydrOXYzine PAMOATE 25 MG CAPSULE (FP) PO SCH ×3 (14:24→22:25)
[2020-04-13] MEDS: KETOROLAC TROMETHAMINE 0.5% EYE DROP 1 DROP DROPS OU SCH ×2 (14:25→22:25)
[2020-04-13] MEDS: prednisoLONE ACETATE 1% OPHTH SUSP 5 ML BOTTLE OU SCH ×2 (14:25→22:25)
[2020-04-13 15:09] LABS: HEMATOCRIT 36.9 % (35.4-49); MCH 26.3 pg (25.7-33.7); MCHC 32.4 g/dl (32.0-35.9); MEAN CELL VOLUME 80.9 fl (80-96); MEAN PLT VOLUME 7.8 fl (7.5-11.1); PLATELET COUNT 335 K/MM3 (134-434); RBC 4.55 M/mm3 (4.00-5.60); RDW 14.9 % (11.9-15.9); WHITE BLOOD COUNT 11.3 K/mm3 (4.0-10.0)
[2020-04-13 15:11] LABS: ALBUMIN 3.9 g/dl (3.4-5.0); BLOOD UREA NITROGEN 29.3 mg/dL (7-18); CALCIUM 8.7 mg/dL (8.5-10.1)
[2020-04-13 15:14] LABS: CREATININE 1.1 mg/dL (0.55-1.3)
[2020-04-13 15:15] LABS: BILIRUBIN,TOTAL 0.5 mg/dL (0.2-1); TOT PROT 7.5 g/dl (6.4-8.2)
[2020-04-13] MEDS: THIAMINE HCL 100 MG TABLET (FP) PO SCH (22:25)
[2020-04-13] MEDS: MELATONIN 5 MG TABLETS PO SCH (22:25)
[2020-04-14] MEDS: hydrOXYzine PAMOATE 25 MG CAPSULE (FP) PO SCH ×5 (05:57→22:52)
[2020-04-14] MEDS: KETOROLAC TROMETHAMINE 0.5% EYE DROP 1 DROP DROPS OU SCH ×3 (05:57→22:52)
[2020-04-14] MEDS: prednisoLONE ACETATE 1% OPHTH SUSP 5 ML BOTTLE OU SCH ×3 (05:58→22:52)
[2020-04-14] MEDS ORDERED: methaDONE HCL 10 MG TABLET (FOR DETOX USE ONLY) ONE (09:01)
[2020-04-14] MEDS: PRENATAL VITAMINS W/ FOLIC ACID TABLET (FP) PO SCH (10:14)
[2020-04-14] MEDS: BUDESONIDE/FORMETEROL FUMARATE 160/4.5 mcg INHALER IH SCH ×2 (11:42→22:52)
[2020-04-14] MEDS: THIAMINE HCL 100 MG TABLET (FP) PO SCH (22:52)
[2020-04-14] MEDS: MELATONIN 5 MG TABLETS PO SCH (22:52)
[2020-04-15] MEDS: hydrOXYzine PAMOATE 25 MG CAPSULE (FP) PO SCH ×5 (05:35→21:25)
[2020-04-15] MEDS: KETOROLAC TROMETHAMINE 0.5% EYE DROP 1 DROP DROPS OU SCH ×3 (05:36→21:24)
[2020-04-15] MEDS: prednisoLONE ACETATE 1% OPHTH SUSP 5 ML BOTTLE OU SCH ×3 (05:36→21:24)
[2020-04-15 09:18] LABS: BASO % 0.9 % (0-2.0); HEMATOCRIT 36.9 % (35.4-49); HEMOGLOBIN 11.9 GM/dL (11.7-16.9); LYMPH % 25.7 % (8-40); MCHC 32.3 g/dl (32.0-35.9); MEAN CELL VOLUME 80.3 fl (80-96); MEAN PLT VOLUME 7.8 fl (7.5-11.1); MONO % 7.2 % (3.8-10.2); NEUT % 57.2 % (42.8-82.8); PLATELET COUNT 292 K/MM3 (134-434); RBC 4.59 M/mm3 (4.00-5.60); RDW 14.9 % (11.9-15.9); WHITE BLOOD COUNT 9.1 K/mm3 (4.0-10.0)
[2020-04-15] MEDS ORDERED: methaDONE HCL 10 MG TABLET (FOR DETOX USE ONLY) PO ONE (10:00)
[2020-04-15] MEDS: PRENATAL VITAMINS W/ FOLIC ACID TABLET (FP) PO SCH (10:19)
[2020-04-15] MEDS: BUDESONIDE/FORMETEROL FUMARATE 160/4.5 mcg INHALER IH SCH ×2 (10:20→21:24)
[2020-04-15 10:32] LABS: CALCIUM 8.6 mg/dL (8.5-10.1)
[2020-04-15 10:33] LABS: ALBUMIN 3.2 g/dl (3.4-5.0)
[2020-04-15 10:36] LABS: CREATININE 0.8 mg/dL (0.55-1.3)
[2020-04-15 10:38] LABS: BILIRUBIN,TOTAL 0.3 mg/dL (0.2-1); TOT PROT 6.5 g/dl (6.4-8.2)
[2020-04-15] MEDS: MELATONIN 5 MG TABLETS PO SCH (21:24)
[2020-04-15] MEDS: THIAMINE HCL 100 MG TABLET (FP) PO SCH (21:25)
[2020-04-16] MEDS: ALBUTEROL SO4 HFA INHALER IH PRN (05:50)
[2020-04-16] MEDS: hydrOXYzine PAMOATE 25 MG CAPSULE (FP) PO SCH ×5 (05:50→22:05)
[2020-04-16] MEDS: prednisoLONE ACETATE 1% OPHTH SUSP 5 ML BOTTLE OU SCH ×3 (05:51→22:06)
[2020-04-16] MEDS: KETOROLAC TROMETHAMINE 0.5% EYE DROP 1 DROP DROPS OU SCH ×3 (05:51→22:06)
[2020-04-16] MEDS ORDERED: methaDONE HCL 10 MG TABLET (FOR DETOX USE ONLY) ONE (08:57)
[2020-04-16] MEDS: BUDESONIDE/FORMETEROL FUMARATE 160/4.5 mcg INHALER IH SCH ×2 (10:02→22:06)
[2020-04-16] MEDS: PRENATAL VITAMINS W/ FOLIC ACID TABLET (FP) PO SCH (10:02)
[2020-04-16] MEDS ORDERED: P-EPHED 60MG/TRIPROLIDI 2.5MG TABLET PO PRN (10:28)
[2020-04-16] MEDS: THIAMINE HCL 100 MG TABLET (FP) PO SCH (22:05)
[2020-04-16] MEDS: MELATONIN 5 MG TABLETS PO SCH (22:06)
[2020-04-17] MEDS: hydrOXYzine PAMOATE 25 MG CAPSULE (FP) PO SCH ×5 (05:32→22:23)
[2020-04-17] MEDS: KETOROLAC TROMETHAMINE 0.5% EYE DROP 1 DROP DROPS OU SCH ×3 (05:32→22:22)
[2020-04-17] MEDS: prednisoLONE ACETATE 1% OPHTH SUSP 5 ML BOTTLE OU SCH ×3 (05:33→22:22)
[2020-04-17] MEDS: PRENATAL VITAMINS W/ FOLIC ACID TABLET (FP) PO SCH (09:46)
[2020-04-17] MEDS: BUDESONIDE/FORMETEROL FUMARATE 160/4.5 mcg INHALER IH SCH ×2 (09:46→22:23)
[2020-04-17] MEDS ORDERED: methaDONE HCL 10 MG TABLET (FOR DETOX USE ONLY) PO ONE (10:00)
[2020-04-17] MEDS: THIAMINE HCL 100 MG TABLET (FP) PO SCH (22:23)
[2020-04-17] MEDS: MELATONIN 5 MG TABLETS PO SCH (22:23)
[2020-04-18] MEDS: hydrOXYzine PAMOATE 25 MG CAPSULE (FP) PO SCH (06:24)
[2020-04-18] MEDS: KETOROLAC TROMETHAMINE 0.5% EYE DROP 1 DROP DROPS OU SCH (06:25)
[2020-04-18] MEDS: prednisoLONE ACETATE 1% OPHTH SUSP 5 ML BOTTLE OU SCH (06:27)
[2020-04-18] MEDS: ALBUTEROL SO4 HFA INHALER IH PRN (06:28)
[2020-04-18 07:11] VITALS: BP 114/73; PULSE 63; TEMP 97.7
== END 2020-04-18 08:30 | disposition home or self-care (01) | DRG 773 ==
LOC: YASAS 09:08 → Y6N 10:12
PROVIDERS: ADMIT Allergy & Immunology; ATTEND Allergy & Immunology
PROC: HZ2ZZZZ Detoxification Services for Substance Abuse Treatment (ICD-10-PCS; principal; 2020-04-13)
DX: F11.23 Opioid dependence with withdrawal (principal); F10.20 Alcohol dependence, uncomplicated; F14.20 Cocaine dependence, uncomplicated; F13.20 Sedative, hypnotic or anxiolytic dependence, uncomplicated; F17.210 Nicotine dependence, cigarettes, uncomplicated; I10 Essential (primary) hypertension; J45.909 Unspecified asthma, uncomplicated; E78.5 Hyperlipidemia, unspecified; R79.89 Other specified abnormal findings of blood chemistry; Z87.01 Personal history of pneumonia (recurrent); Z87.442 Personal history of urinary calculi
CPT/HCPCS: 36415; 80053; 85025; 85027; 86780; C9803; U0003

== ENCOUNTER 2020-05-10 05:57 | Emergency (ER) | payer OTHER ==
[2020-05-10 06:15] VITALS: BMI 27.3
[2020-05-10] MEDS ORDERED: methylPREDNISolone NA SUCC 40 MG/1 ML VIAL IVPUSH ONE (07:30)
[2020-05-10] MEDS ORDERED: chlordiazePOXIDE HCL 10 MG CAPSULE PO ONE ×2 (07:32→09:18)
[2020-05-10] MEDS ORDERED: predniSONE 20 MG TABLET (UD) PO ONE ×2 (08:03→09:18)
[2020-05-10] MEDS: ALBUTEROL SO4 2.5/IPRATROPIUM 0.5 INH SOL 3 ML VIAL.NEB. NEB SCH ×2 (08:11→08:23)
[2020-05-10] MEDS ORDERED: ALBUTEROL SO4 0.083% IH SOL 2.5 MG/3 ML VIAL.NEB. NEB ONE (10:24)
[2020-05-10 12:38] VITALS: BP 117/67; PULSE 88; TEMP 99.1
== END 2020-05-10 13:25 | disposition left against medical advice (07) ==
LOC: JER 05:57
PROC: 3E0F7GC Introduction of Other Therapeutic Substance into Respiratory Tract, Via Natural or Artificial Opening (ICD-10-PCS; principal; 2020-05-10)
PROC: 3E033NZ Introduction of Analgesics, Hypnotics, Sedatives into Peripheral Vein, Percutaneous Approach (ICD-10-PCS; 2020-05-10)
DX: J45.901 Unspecified asthma with (acute) exacerbation (principal); F19.10 Other psychoactive substance abuse, uncomplicated
CPT/HCPCS: 93005; 93010; 99285-25

== ENCOUNTER 2020-05-11 02:20 | Inpatient (IN) | payer OTHER ==
[2020-05-11] MEDS ORDERED: ALBUTEROL SO4 2.5/IPRATROPIUM 0.5 INH SOL 3 ML VIAL.NEB. NEB ONE ×2 (02:31→10:25)
[2020-05-11] MEDS: ALBUTEROL SO4 2.5/IPRATROPIUM 0.5 INH SOL 3 ML VIAL.NEB. NEB SCH ×6 (02:55→21:35)
[2020-05-11] MEDS ORDERED: ALBUTEROL SO4 0.083% IH SOL 2.5 MG/3 ML VIAL.NEB. NEB ONE ×2 (03:46→03:48)
[2020-05-11] MEDS ORDERED: MAGNESIUM SULF 50% (8.12 MEQ/2 ML-1 GM VIAL) IVPB ONE (04:14)
[2020-05-11] MEDS ORDERED: SODIUM CHLORIDE 1,000 ML IV STA (04:14)
[2020-05-11] MEDS ORDERED: MAGNESIUM 1GM/D5W - 1 GM/100 ML IVPB IVPB ONE (04:20)
[2020-05-11 05:42] LABS: BASO % 0.6 % (0-2.0); EOS % 0.7 % (0-4.5); HEMATOCRIT 34.1 % (35.4-49); LYMPH % 3.8 % (8-40); MCH 25.6 pg (25.7-33.7); MCHC 32.2 g/dl (32.0-35.9); MEAN CELL VOLUME 79.6 fl (80-96); MEAN PLT VOLUME 8.1 fl (7.5-11.1); MONO % 2.9 % (3.8-10.2); PLATELET COUNT 324 K/MM3 (134-434); RBC 4.28 M/mm3 (4.00-5.60); RDW 14.8 % (11.9-15.9); WHITE BLOOD COUNT 15.6 K/mm3 (4.0-10.0)
[2020-05-11 05:58] LABS: POTASSIUM 4.8 mmol/L (3.5-5.1)
[2020-05-11 06:03] LABS: ALBUMIN 3.4 g/dl (3.4-5.0); BLOOD UREA NITROGEN 19.8 mg/dL (7-18); MAGNESIUM 1.9 mg/dL (1.8-2.4)
[2020-05-11 06:06] LABS: CREATININE 0.8 mg/dL (0.55-1.3)
[2020-05-11 06:07] LABS: BILIRUBIN,TOTAL 0.4 mg/dL (0.2-1); TOT PROT 7.2 g/dl (6.4-8.2)
[2020-05-11 06:39] LABS: ANISOCYTOSIS 2+; MACROCYTOSIS 0; PLATELET ESTIMATE NORMAL
[2020-05-11] MEDS ORDERED: AZITHROMYCIN IVPB 500 MG in DEXTROSE 5%-WATER - 250 ML IVPB ONE (08:26)
[2020-05-11] MEDS ORDERED: AZITHROMYCIN 500 MG VIAL IVPB ONE (08:44)
[2020-05-11 11:06] VITALS: BMI 30.9
[2020-05-11] MEDS ORDERED: predniSONE 20 MG TABLET (UD) PO ONE (11:58)
[2020-05-11] MEDS: BUDESONIDE/FORMETEROL FUMARATE 160/4.5 mcg INHALER IH SCH (13:29)
[2020-05-11] MEDS ORDERED: PT OWN MED DRAWER 7, Y5N ONE ×2 (13:31→14:37)
[2020-05-11] MEDS ORDERED: cloNIDine HCL 0.1 MG TABLET PO PRN (13:58)
[2020-05-11] MEDS ORDERED: METHADONE HCL 10 MG TABLET PO ONE (14:15)
[2020-05-11] MEDS: KETOROLAC TROMETHAMINE 0.5% EYE DROP 1 DROP DROPS OU SCH ×2 (14:39→21:38)
[2020-05-11] MEDS: prednisoLONE ACETATE 1% OPHTH SUSP 5 ML BOTTLE OU SCH ×2 (14:39→21:37)
[2020-05-11] MEDS ORDERED: guaiFENesin/D-METHORPHAN HB 10 ML UNIT-DOSE CUPS PO PRN (17:17)
[2020-05-11] MEDS: methylPREDNISolone NA SUCC 40 MG/1 ML VIAL IVPUSH SCH (17:57)
[2020-05-12] MEDS: ALBUTEROL SO4 2.5/IPRATROPIUM 0.5 INH SOL 3 ML VIAL.NEB. NEB SCH ×7 (00:29→20:12)
[2020-05-12] MEDS: methylPREDNISolone NA SUCC 40 MG/1 ML VIAL IVPUSH SCH ×3 (02:40→17:53)
[2020-05-12] MEDS: KETOROLAC TROMETHAMINE 0.5% EYE DROP 1 DROP DROPS OU SCH ×3 (05:58→21:12)
[2020-05-12] MEDS: prednisoLONE ACETATE 1% OPHTH SUSP 5 ML BOTTLE OU SCH ×3 (05:58→21:12)
[2020-05-12] MEDS ORDERED: METHADONE 20 MG, METHADONE 5 MG PO ONE ×3 (07:45→10:00)
[2020-05-12 08:28] LABS: HEMOGLOBIN 10.7 GM/dl (11.7-16.9); MCH 25.3 pg (25.7-33.7); MCHC 31.6 g/dl (32.0-35.9); MEAN PLT VOLUME 7.9 fl (7.5-11.1); PLATELET COUNT 349 K/MM3 (134-434); RBC 4.25 M/mm3 (4.00-5.60); RDW 13.9 % (11.9-15.9)
[2020-05-12 08:58] LABS: ALBUMIN 3.1 g/dl (3.4-5.0); BILIRUBIN,TOTAL 0.3 mg/dl (0.2-1); CALCIUM 8.9 mg/dl (8.5-10); CREATININE 0.7 mg/dl (0.55-1.3); POTASSIUM 4.1 mmol/L (3.5-5.1); TOT PROT 6.4 g/dl (6.4-8.2)
[2020-05-12] MEDS ORDERED: METHADONE HCL 10 MG TABLET ONE (09:37)
[2020-05-12] MEDS ORDERED: METHADONE HCL 5 MG TABLET ONE (09:38)
[2020-05-12] MEDS: BUDESONIDE/FORMETEROL FUMARATE 160/4.5 mcg INHALER IH SCH (09:55)
[2020-05-12] MEDS ORDERED: LOCK ITEM NR ONE (20:25)
[2020-05-13] MEDS: ALBUTEROL SO4 2.5/IPRATROPIUM 0.5 INH SOL 3 ML VIAL.NEB. NEB SCH ×6 (00:14→20:20)
[2020-05-13] MEDS: methylPREDNISolone NA SUCC 40 MG/1 ML VIAL IVPUSH SCH ×3 (01:34→18:02)
[2020-05-13] MEDS: prednisoLONE ACETATE 1% OPHTH SUSP 5 ML BOTTLE OU SCH ×3 (06:22→21:08)
[2020-05-13] MEDS: KETOROLAC TROMETHAMINE 0.5% EYE DROP 1 DROP DROPS OU SCH ×3 (06:22→21:08)
[2020-05-13] MEDS: BUDESONIDE/FORMETEROL FUMARATE 160/4.5 mcg INHALER IH SCH (09:40)
[2020-05-13] MEDS ORDERED: METHADONE HCL 10 MG TABLET PO ONE (10:00)
[2020-05-13] MEDS ORDERED: PIPERACILLIN/TAZOBACTAM 3.375 GM VIAL IVPB ONE (17:40)
[2020-05-13] MEDS ORDERED: DEXTROSE 5%-WATER - 50 ML IVPB ONE (17:40)
[2020-05-13] MEDS: PIPERACILLIN/TAZOB 3.375 GM 3.375 GM in DEXTROSE 5%-WATER - 50 ML IVPB SCH (18:02)
[2020-05-14] MEDS ORDERED: DEXTROSE 5%-WATER - 50 ML IVPB ONE ×2 (01:06→09:19)
[2020-05-14] MEDS ORDERED: PIPERACILLIN/TAZOBACTAM 3.375 GM VIAL IVPB ONE ×2 (01:06→09:19)
[2020-05-14] MEDS: methylPREDNISolone NA SUCC 40 MG/1 ML VIAL IVPUSH SCH ×2 (01:13→09:31)
[2020-05-14] MEDS: PIPERACILLIN/TAZOB 3.375 GM 3.375 GM in DEXTROSE 5%-WATER - 50 ML IVPB SCH ×2 (01:14→09:31)
[2020-05-14] MEDS: ALBUTEROL SO4 2.5/IPRATROPIUM 0.5 INH SOL 3 ML VIAL.NEB. NEB SCH ×6 (01:16→21:26)
[2020-05-14] MEDS: prednisoLONE ACETATE 1% OPHTH SUSP 5 ML BOTTLE OU SCH ×3 (06:23→21:22)
[2020-05-14] MEDS: KETOROLAC TROMETHAMINE 0.5% EYE DROP 1 DROP DROPS OU SCH ×3 (06:23→21:22)
[2020-05-14 08:05] LABS: EOS % 0.1 % (0-4.5); HEMATOCRIT 37.1 % (35.4-49); HEMOGLOBIN 12.1 GM/dl (11.7-16.9); LYMPH % 5.8 % (8-40); MCH 25.9 pg (25.7-33.7); MCHC 32.7 g/dl (32.0-35.9); MEAN CELL VOLUME 79.2 fl (80-96); MEAN PLT VOLUME 7.8 fl (7.5-11.1); MONO % 2.2 % (3.8-10.2); NEUT % 89.6 % (42.8-82.8); PLATELET COUNT 388 K/MM3 (134-434); RBC 4.68 M/mm3 (4.00-5.60); RDW 13.7 % (11.9-15.9); WHITE BLOOD COUNT 14.9 K/mm3 (4.0-10.8)
[2020-05-14 08:06] LABS: BASO % 2.3 % (0-2.0)
[2020-05-14 08:11] LABS: ALBUMIN 3.1 g/dl (3.4-5.0); BILIRUBIN,TOTAL 0.4 mg/dl (0.2-1); CREATININE 0.7 mg/dl (0.55-1.3); TOT PROT 6.5 g/dl (6.4-8.2)
[2020-05-14] MEDS ORDERED: METHADONE HCL 10 MG TABLET ONE (09:23)
[2020-05-14] MEDS ORDERED: METHADONE HCL 5 MG TABLET ONE (09:24)
[2020-05-14] MEDS: BUDESONIDE/FORMETEROL FUMARATE 160/4.5 mcg INHALER IH SCH (09:31)
[2020-05-14] MEDS ORDERED: METHADONE 10 MG, METHADONE 5 MG PO ONE (10:00)
[2020-05-14] MEDS: predniSONE 20 MG TABLET (UD) PO SCH (18:20)
[2020-05-15] MEDS: ALBUTEROL SO4 2.5/IPRATROPIUM 0.5 INH SOL 3 ML VIAL.NEB. NEB SCH ×4 (01:13→15:16)
[2020-05-15] MEDS: KETOROLAC TROMETHAMINE 0.5% EYE DROP 1 DROP DROPS OU SCH ×2 (06:36→15:16)
[2020-05-15] MEDS: prednisoLONE ACETATE 1% OPHTH SUSP 5 ML BOTTLE OU SCH ×2 (06:37→15:16)
[2020-05-15] MEDS ORDERED: METHADONE HCL 10 MG TABLET PO ONE (10:00)
[2020-05-15] MEDS: BUDESONIDE/FORMETEROL FUMARATE 160/4.5 mcg INHALER IH SCH (10:06)
[2020-05-15] MEDS: predniSONE 20 MG TABLET (UD) PO SCH (10:06)
[2020-05-15 14:14] VITALS: PULSE 80; TEMP 98.5
[2020-05-15 14:15] VITALS: BP 124/67
[2020-05-16] MEDS ORDERED: METHADONE HCL 5 MG TABLET PO ONE (06:00)
== END 2020-05-15 18:45 | disposition home or self-care (01) | DRG 140 ==
LOC: FER 02:20 → FM/S 10:04 → UNDOADMIN 10:10 → FM/S 10:10
PROVIDERS: ADMIT Internal Medicine; ATTEND Internal Medicine
DX: J44.1 Chronic obstructive pulmonary disease with (acute) exacerbation (principal); J45.51 Severe persistent asthma with (acute) exacerbation; F11.20 Opioid dependence, uncomplicated; S23.41XA Sprain of ribs, initial encounter; F14.10 Cocaine abuse, uncomplicated; F10.10 Alcohol abuse, uncomplicated; F17.210 Nicotine dependence, cigarettes, uncomplicated; W19.XXXA Unspecified fall, initial encounter; Y93.89 Activity, other specified; Y92.89 Other specified places as the place of occurrence of the external cause
CPT/HCPCS: 36415; 71046-TC-FY; 71101-TC-RT-FY; 80053; 83735; 85025; 85027; 93005; 94640; 99285-25; C9803; U0003

== ENCOUNTER 2020-05-25 22:37 | Emergency (ER) | payer OTHER ==
[2020-05-25] MEDS ORDERED: SODIUM CHLORIDE 1,000 ML IV STA (22:45)
[2020-05-25 22:55] VITALS: BMI 32.6
[2020-05-25] MEDS ORDERED: DEXAMETHASONE SOD PHOSPHATE 10 MG/1 ML VIAL IVPUSH ONE (23:12)
[2020-05-26] MEDS ORDERED: DEXAMETHASONE SOD PHOSPHATE 10 MG/1 ML VIAL ONE (00:06)
[2020-05-26] MEDS ORDERED: ALBUTEROL SO4 2.5/IPRATROPIUM 0.5 INH SOL 3 ML VIAL.NEB. NEB ONE (00:07)
[2020-05-26 00:17] LABS: BASO % 1.2 % (0-2.0); EOS % 5.6 % (0-4.5); HEMATOCRIT 34.7 % (35.4-49); HEMOGLOBIN 11.4 GM/dL (11.7-16.9); LYMPH % 27.3 % (8-40); MCH 26.1 pg (25.7-33.7); MCHC 32.7 g/dl (32.0-35.9); MEAN CELL VOLUME 79.7 fl (80-96); MEAN PLT VOLUME 8.4 fl (7.5-11.1); MONO % 9.6 % (3.8-10.2); NEUT % 56.3 % (42.8-82.8); PLATELET COUNT 298 K/MM3 (134-434); RBC 4.36 M/mm3 (4.00-5.60); RDW 15.3 % (11.9-15.9); WHITE BLOOD COUNT 6.7 K/mm3 (4.0-10.0)
[2020-05-26] MEDS ORDERED: ALBUTEROL SO4 0.083% IH SOL 2.5 MG/3 ML VIAL.NEB. NEB ONE ×3 (00:21→00:46)
[2020-05-26 00:42] LABS: CHLORIDE 107 mmol/L (98-107); POTASSIUM 4.5 mmol/L (3.5-5.1); SODIUM 140 mmol/L (136-145)
[2020-05-26 00:44] LABS: ALBUMIN 3.1 g/dl (3.4-5.0); CALCIUM 8.5 mg/dL (8.5-10.1)
[2020-05-26 00:45] LABS: ANION GAP 6 MMOL/L (8-16); BLOOD UREA NITROGEN 12.9 mg/dL (7-18); CO2 28 mmol/L (21-32); GLUCOSE,RANDOM 129 mg/dL (74-106)
[2020-05-26 00:47] LABS: SGPT/ALT 23 U/L (13-61)
[2020-05-26 00:48] LABS: SGOT/AST 35 U/L (15-37)
[2020-05-26 00:49] LABS: BILIRUBIN,TOTAL 0.3 mg/dL (0.2-1); CREATININE 0.8 mg/dL (0.55-1.3); TOT PROT 6.7 g/dl (6.4-8.2)
[2020-05-26 00:50] LABS: ALK PHOS 93 U/L (45-117)
[2020-05-26 00:53] LABS: N-TERMINAL BNP 68.1 pg/ml (5-125)
[2020-05-26 01:58] VITALS: BP 128/84; PULSE 84; TEMP 98.4
== END 2020-05-26 01:57 | disposition home or self-care (01) ==
LOC: JER 22:37
PROC: 3E0F7GC Introduction of Other Therapeutic Substance into Respiratory Tract, Via Natural or Artificial Opening (ICD-10-PCS; principal; 2020-05-25)
PROC: 3E033GC Introduction of Other Therapeutic Substance into Peripheral Vein, Percutaneous Approach (ICD-10-PCS; 2020-05-25)
PROC: 3E0337Z Introduction of Electrolytic and Water Balance Substance into Peripheral Vein, Percutaneous Approach (ICD-10-PCS; 2020-05-25)
DX: J44.1 Chronic obstructive pulmonary disease with (acute) exacerbation (principal); F11.90 Opioid use, unspecified, uncomplicated
CPT/HCPCS: 36415; 71046-TC-FY; 80053; 80307; 82550; 82553; 83880; 84484; 85025; 93005; 93010; 99285-25; J1100

== ENCOUNTER 2020-07-07 11:13 | Emergency (ER) | payer OTHER ==
[2020-07-07] MEDS ORDERED: DEXAMETHASONE SOD PHOSPHATE 10 MG/1 ML VIAL IM ONE (11:34)
[2020-07-07 11:43] VITALS: TEMP 98.8; BMI 29.7
[2020-07-07] MEDS ORDERED: DEXAMETHASONE SOD PHOSPHATE 10 MG/1 ML VIAL ONE (11:48)
[2020-07-07] MEDS: ALBUTEROL SO4 2.5/IPRATROPIUM 0.5 INH SOL 3 ML VIAL.NEB. NEB SCH ×4 (11:50→12:32)
[2020-07-07] MEDS ORDERED: ALBUTEROL SO4 2.5/IPRATROPIUM 0.5 INH SOL 3 ML VIAL.NEB. NEB ONE ×2 (12:18→13:57)
[2020-07-07 13:30] LABS: INFLU A MOLECULAR Negative (Negative); INFLU B MOLECULAR Negative (Negative); SARS COV-2 MOLECULAR Negative (Negative)
[2020-07-07] MEDS ORDERED: ALBUTEROL SO4 0.083% IH SOL 2.5 MG/3 ML VIAL.NEB. NEB ONE (13:56)
[2020-07-07 14:51] VITALS: BP 143/91; PULSE 82
== END 2020-07-07 15:06 | disposition home or self-care (01) ==
LOC: JER 11:13
DX: J44.1 Chronic obstructive pulmonary disease with (acute) exacerbation (principal); F11.10 Opioid abuse, uncomplicated; J45.21 Mild intermittent asthma with (acute) exacerbation
CPT/HCPCS: 71045-TC-FY; 87502; 93005; 93010; 99284-25; C9803; J1100; U0003

== ENCOUNTER 2020-07-07 15:30 | Inpatient (IN) | payer OTHER ==
[2020-07-07 11:12] VITALS: BMI 29.7
[2020-07-07] MEDS ORDERED: ONDANSETRON *ODT* 4 MG TABLET SL PRN (18:15)
[2020-07-07] MEDS ORDERED: MAGNESIUM HYDROX 2400MG/30ML ORAL SUSPENSION 30 ML CUP PO PRN (18:15)
[2020-07-07] MEDS ORDERED: MAG HYDROX/AL HYDROX/SIMETH 30 ML UNIT-DOSE CUP PO PRN (18:15)
[2020-07-07] MEDS ORDERED: MENTHOL/PHENOL 1 EACH UD MM PRN (18:15)
[2020-07-07] MEDS ORDERED: METHADONE HCL 10 MG TABLET (FOR DETOX USE ONLY) PO ONE (18:15)
[2020-07-07] MEDS ORDERED: IBUPROFEN 400 MG TABLET (FP) PO PRN (18:15)
[2020-07-07] MEDS ORDERED: ACETAMINOPHEN 325 MG TABLET (FP) PO PRN ×2 (18:15)
[2020-07-07] MEDS ORDERED: METHOCARBAMOL 500 MG TABLET PO PRN (18:15)
[2020-07-07] MEDS ORDERED: BISMUTH SUBSALICYLATE 524 MG/30 ML UD PO PRN (18:15)
[2020-07-07] MEDS ORDERED: MAGNESIUM CITRATE 300 ML BOTTLE PO PRN (18:15)
[2020-07-07] MEDS ORDERED: NICOTINE POLACRILEX 2 MG GUM BUC PRN (18:15)
[2020-07-07] MEDS: cloNIDine HCL 0.1 MG TABLET PO PRN (19:25)
[2020-07-07] MEDS: MELATONIN 5 MG TABLETS PO SCH (22:59)
[2020-07-07] MEDS: THIAMINE HCL 100 MG TABLET (FP) PO SCH (23:00)
[2020-07-08] MEDS ORDERED: METHADONE HCL 5 MG TABLET (FOR DETOX USE ONLY) ONE (09:16)
[2020-07-08] MEDS ORDERED: METHADONE HCL 10 MG TABLET (FOR DETOX USE ONLY) ONE (09:16)
[2020-07-08] MEDS ORDERED: METHADONE (DETOX) 20 MG, METHADONE (DETOX) 5 MG PO ONE (10:00)
[2020-07-08] MEDS ORDERED: BUDESONIDE/FORMETEROL FUMARATE 160/4.5 mcg INHALER IH ONE (10:00)
[2020-07-08] MEDS: PRENATAL VITAMINS W/ FOLIC ACID TABLET (FP) PO SCH (10:22)
[2020-07-08] MEDS: NICOTINE 14 MG/24 HOURS TOPICAL PATCH TD SCH (10:22)
[2020-07-08] MEDS: ALBUTEROL SO4 HFA INHALER IH PRN ×2 (10:24→21:30)
[2020-07-08] MEDS: THIAMINE HCL 100 MG TABLET (FP) PO SCH (21:29)
[2020-07-08] MEDS: MELATONIN 5 MG TABLETS PO SCH (21:29)
[2020-07-09] MEDS: ALBUTEROL SO4 HFA INHALER IH PRN ×2 (07:04→10:09)
[2020-07-09] MEDS ORDERED: ALBUTEROL SO4 2.5/IPRATROPIUM 0.5 INH SOL 3 ML VIAL.NEB. NEB PRN (09:53)
[2020-07-09] MEDS ORDERED: METHADONE HCL 10 MG TABLET (FOR DETOX USE ONLY) PO ONE (10:00)
[2020-07-09] MEDS: PRENATAL VITAMINS W/ FOLIC ACID TABLET (FP) PO SCH (10:08)
[2020-07-09] MEDS: NICOTINE 14 MG/24 HOURS TOPICAL PATCH TD SCH (10:10)
[2020-07-09] MEDS: hydrOXYzine PAMOATE 25 MG CAPSULE (FP) PO PRN (15:48)
[2020-07-09] MEDS: cloNIDine HCL 0.1 MG TABLET PO PRN (15:48)
[2020-07-09] MEDS: MELATONIN 5 MG TABLETS PO SCH (23:29)
[2020-07-09] MEDS: THIAMINE HCL 100 MG TABLET (FP) PO SCH (23:29)
[2020-07-10] MEDS: ALBUTEROL SO4 HFA INHALER IH PRN ×2 (01:11→19:35)
[2020-07-10] MEDS ORDERED: METHADONE HCL 5 MG TABLET (FOR DETOX USE ONLY) ONE (09:58)
[2020-07-10] MEDS ORDERED: METHADONE HCL 10 MG TABLET (FOR DETOX USE ONLY) ONE (09:58)
[2020-07-10] MEDS ORDERED: METHADONE (DETOX) 10 MG, METHADONE (DETOX) 5 MG PO ONE (10:00)
[2020-07-10] MEDS: hydrOXYzine PAMOATE 25 MG CAPSULE (FP) PO PRN ×3 (10:16→19:34)
[2020-07-10] MEDS: PRENATAL VITAMINS W/ FOLIC ACID TABLET (FP) PO SCH (10:16)
[2020-07-10] MEDS ORDERED: MASKS NR ONE (10:17)
[2020-07-10] MEDS: NICOTINE 14 MG/24 HOURS TOPICAL PATCH TD SCH (10:17)
[2020-07-10] MEDS: MELATONIN 5 MG TABLETS PO SCH (21:58)
[2020-07-10] MEDS: THIAMINE HCL 100 MG TABLET (FP) PO SCH (21:58)
[2020-07-11 09:50] VITALS: BP 125/98; PULSE 114; TEMP 96.9
[2020-07-11] MEDS ORDERED: METHADONE HCL 10 MG TABLET (FOR DETOX USE ONLY) PO ONE (10:00)
[2020-07-11] MEDS: NICOTINE 14 MG/24 HOURS TOPICAL PATCH TD SCH (10:32)
[2020-07-11] MEDS: PRENATAL VITAMINS W/ FOLIC ACID TABLET (FP) PO SCH (10:32)
[2020-07-11] MEDS: hydrOXYzine PAMOATE 25 MG CAPSULE (FP) PO PRN (10:34)
[2020-07-11] MEDS: ALBUTEROL SO4 HFA INHALER IH PRN (10:42)
[2020-07-12] MEDS ORDERED: METHADONE HCL 5 MG TABLET (FOR DETOX USE ONLY) PO ONE (06:00)
== END 2020-07-11 12:18 | disposition left against medical advice (07) | DRG 770 ==
LOC: YASAS 15:30 → Y3N 18:04
PROVIDERS: ADMIT Allergy & Immunology; ATTEND Allergy & Immunology
PROC: HZ2ZZZZ Detoxification Services for Substance Abuse Treatment (ICD-10-PCS; principal; 2020-07-07)
DX: F11.23 Opioid dependence with withdrawal (principal); F10.230 Alcohol dependence with withdrawal, uncomplicated; F14.20 Cocaine dependence, uncomplicated; F13.20 Sedative, hypnotic or anxiolytic dependence, uncomplicated; F17.210 Nicotine dependence, cigarettes, uncomplicated; J45.21 Mild intermittent asthma with (acute) exacerbation; J44.9 Chronic obstructive pulmonary disease, unspecified; M54.5 Low back pain; G89.29 Other chronic pain
CPT/HCPCS: J0735

== ENCOUNTER 2020-09-05 22:45 | Emergency (ER) | payer OTHER ==
[2020-09-05 23:11] VITALS: TEMP 98.2; BMI 30.4
[2020-09-06] MEDS ORDERED: ALBUTEROL SO4 2.5/IPRATROPIUM 0.5 INH SOL 3 ML VIAL.NEB. NEB ONE (00:27)
[2020-09-06] MEDS: ALBUTEROL SO4 2.5/IPRATROPIUM 0.5 INH SOL 3 ML VIAL.NEB. NEB SCH ×4 (00:32→01:05)
[2020-09-06] MEDS ORDERED: DEXAMETHASONE SOD PHOSPHATE 10 MG/1 ML VIAL IVPUSH ONE (01:13)
[2020-09-06] MEDS ORDERED: DEXAMETHASONE SOD PHOSPHATE 10 MG/1 ML VIAL ONE (01:14)
[2020-09-06 01:32] VITALS: BP 135/96; PULSE 94
== END 2020-09-06 02:00 | disposition home or self-care (01) ==
LOC: JER 22:45
PROC: 3E0F7GC Introduction of Other Therapeutic Substance into Respiratory Tract, Via Natural or Artificial Opening (ICD-10-PCS; principal; 2020-09-05)
PROC: 3E033GC Introduction of Other Therapeutic Substance into Peripheral Vein, Percutaneous Approach (ICD-10-PCS; 2020-09-05)
DX: T40.601A Poisoning by unspecified narcotics, accidental (unintentional), initial encounter (principal); F11.20 Opioid dependence, uncomplicated; J45.21 Mild intermittent asthma with (acute) exacerbation; R06.02 Shortness of breath; R06.2 Wheezing
CPT/HCPCS: 71045-TC-FY; 99284-25; J1100

== ENCOUNTER 2020-09-12 06:25 | Emergency (ER) | payer OTHER ==
[2020-09-12 06:47] VITALS: TEMP 98.7; BMI 28.8
[2020-09-12] MEDS ORDERED: methylPREDNISolone NA SUCC 125 MG/2 ML VIAL IVPUSH ONE (06:47)
[2020-09-12] MEDS ORDERED: ALBUTEROL SO4 2.5/IPRATROPIUM 0.5 INH SOL 3 ML VIAL.NEB. NEB SCH ×2 (06:50→08:00)
[2020-09-12] MEDS: ALBUTEROL SO4 2.5/IPRATROPIUM 0.5 INH SOL 3 ML VIAL.NEB. NEB SCH ×2 (06:54→07:45)
[2020-09-12 08:45] LABS: ARTERIAL BLD GAS O2 SATURATION 82.8 mmHg (95-98); ARTERIAL BLOOD GAS BASE EXCESS 3.1 mmol/L (-2-2); ARTERIAL BLOOD GAS PO2 47.2 mmHg (80-100)
[2020-09-12 09:10] LABS: BASO % 0.6 % (0-2.0); HEMATOCRIT 31.3 % (35.4-49); HEMOGLOBIN 10.7 GM/dL (11.7-16.9); LYMPH % 9.7 % (8-40); MCH 26.8 pg (25.7-33.7); MCHC 34.2 g/dl (32.0-35.9); MEAN CELL VOLUME 78.3 fl (80-96); MEAN PLT VOLUME 7.6 fl (7.5-11.1); NEUT % 77.7 % (42.8-82.8); PLATELET COUNT 312 K/MM3 (134-434); RDW 16.4 % (11.9-15.9); WHITE BLOOD COUNT 9.9 K/mm3 (4.0-10.0)
[2020-09-12 09:32] LABS: CHLORIDE 101 mmol/L (98-107); SODIUM 136 mmol/L (136-145)
[2020-09-12 09:34] LABS: ANION GAP 5 MMOL/L (8-16); BLOOD UREA NITROGEN 12.8 mg/dL (7-18); CALCIUM 8.4 mg/dL (8.5-10.1); CO2 31 mmol/L (21-32); GLUCOSE,RANDOM 106 mg/dL (74-106)
[2020-09-12 09:37] LABS: CREATININE 0.9 mg/dL (0.55-1.3); SGOT/AST 29 U/L (15-37); SGPT/ALT 18 U/L (13-61)
[2020-09-12 09:39] LABS: BILIRUBIN,TOTAL 0.5 mg/dL (0.2-1); TOT PROT 6.1 g/dl (6.4-8.2)
[2020-09-12 09:40] LABS: ALK PHOS 83 U/L (45-117)
[2020-09-12 13:56] VITALS: BP 132/79; PULSE 89
== END 2020-09-12 13:56 | disposition home or self-care (01) ==
LOC: JER 06:25
PROC: 3E0F7GC Introduction of Other Therapeutic Substance into Respiratory Tract, Via Natural or Artificial Opening (ICD-10-PCS; principal; 2020-09-12)
DX: J45.901 Unspecified asthma with (acute) exacerbation (principal)
CPT/HCPCS: 36415; 36600; 80053; 80307; 82803; 85025; 93005; 93010; 99284-25

== ENCOUNTER 2021-01-26 19:29 | Emergency (ER) | payer OTHER ==
[2021-01-26] MEDS ORDERED: ALBUTEROL SO4 2.5/IPRATROPIUM 0.5 INH SOL 3 ML VIAL.NEB. NEB ONE ×2 (20:17→20:23)
[2021-01-26] MEDS ORDERED: DEXAMETHASONE SOD PHOSPHATE 10 MG/1 ML VIAL IM ONE (20:18)
[2021-01-26 20:21] VITALS: BP 123/77; PULSE 99; TEMP 97.2; BMI 22.1
[2021-01-26] MEDS ORDERED: DEXAMETHASONE SOD PHOSPHATE 10 MG/1 ML VIAL ONE (20:23)
== END 2021-01-26 21:48 | disposition home or self-care (01) ==
LOC: JER 19:29
PROC: 3E023NZ Introduction of Analgesics, Hypnotics, Sedatives into Muscle, Percutaneous Approach (ICD-10-PCS; principal; 2021-01-26)
PROC: 3E0F7GC Introduction of Other Therapeutic Substance into Respiratory Tract, Via Natural or Artificial Opening (ICD-10-PCS; 2021-01-26)
DX: J45.901 Unspecified asthma with (acute) exacerbation (principal)
CPT/HCPCS: 99284-25; J1100

== ENCOUNTER 2021-02-07 13:08 | Inpatient (IN) | payer OTHER ==
[2021-02-07] MEDS ORDERED: DEXAMETHASONE SOD PHOSPHATE 10 MG/1 ML VIAL IVPUSH ONE (16:15)
[2021-02-07] MEDS ORDERED: ALBUTEROL SO4 2.5/IPRATROPIUM 0.5 INH SOL 3 ML VIAL.NEB. NEB ONE ×2 (16:15→16:45)
[2021-02-07] MEDS ORDERED: DEXAMETHASONE SOD PHOSPHATE 10 MG/1 ML VIAL ONE (16:45)
[2021-02-07 16:51] LABS: EOS % 0.1 % (0-4.5); HEMATOCRIT 37.2 % (35.4-49); HEMOGLOBIN 11.8 GM/dL (11.7-16.9); LYMPH % 2.6 % (8-40); MCH 23.1 pg (25.7-33.7); MCHC 31.8 g/dl (32.0-35.9); MEAN CELL VOLUME 72.6 fl (80-96); MEAN PLT VOLUME 7.5 fl (7.5-11.1); MONO % 3.6 % (3.8-10.2); NEUT % 93.7 % (42.8-82.8); PLATELET COUNT 301 10^3/uL (134-434); RBC 5.12 M/mm3 (4.00-5.60); RDW 19.7 % (11.9-15.9)
[2021-02-07 16:54] LABS: WHITE BLOOD COUNT 34.4 K/mm3 (4.0-10.0)
[2021-02-07] MEDS ORDERED: SODIUM CHLORIDE 1,000 ML IV STA (16:59)
[2021-02-07] MEDS ORDERED: CEFTRIAXONE 1,000 MG in DEXTROSE 5%-WATER - 50 ML IVPB ONE (16:59)
[2021-02-07] MEDS ORDERED: AZITHROMYCIN IVPB 500 MG in DEXTROSE 5%-WATER - 250 ML IVPB ONE (16:59)
[2021-02-07 17:09] LABS: CHLORIDE 97 mmol/L (98-107); SODIUM 134 mmol/L (136-145)
[2021-02-07 17:12] LABS: ALBUMIN 2.6 g/dl (3.4-5.0); ANION GAP 10 MMOL/L (8-16); BLOOD UREA NITROGEN 22.8 mg/dL (7-18); CALCIUM 9.7 mg/dL (8.5-10.1); CO2 27 mmol/L (21-32); GLUCOSE,RANDOM 122 mg/dL (74-106)
[2021-02-07 17:15] LABS: CREATININE 0.9 mg/dL (0.55-1.3); SGOT/AST 16 U/L (15-37); SGPT/ALT 14 U/L (13-61)
[2021-02-07 17:17] LABS: TOT PROT 7.3 g/dl (6.4-8.2)
[2021-02-07 17:18] LABS: ALK PHOS 111 U/L (45-117)
[2021-02-07 17:41] LABS: ANISOCYTOSIS 3+; MACROCYTOSIS 0; OVALOCYTE 1+; PLATELET ESTIMATE NORMAL
[2021-02-07] MEDS ORDERED: ALBUTEROL SO4 HFA INHALER IH ONE (18:07)
[2021-02-07] MEDS ORDERED: ONDANSETRON 4 MG/2 ML VIAL IVPUSH PRN (20:51)
[2021-02-07] MEDS ORDERED: ALBUTEROL SO4 2.5/IPRATROPIUM 0.5 INH SOL 3 ML VIAL.NEB. NEB PRN (20:51)
[2021-02-07] MEDS ORDERED: ACETAMINOPHEN 325 MG TABLET (FP) PO PRN (20:52)
[2021-02-08] MEDS: methylPREDNISolone NA SUCC 40 MG/1 ML VIAL IVPUSH SCH ×3 (07:04→18:13)
[2021-02-08] MEDS ORDERED: methylPREDNISolone NA SUCC 40 MG/1 ML VIAL ONE ×3 (07:04→17:04)
[2021-02-08 07:36] LABS: CALCIUM 9.2 mg/dL (8.5-10.1)
[2021-02-08 07:37] LABS: ALBUMIN 2.2 g/dl (3.4-5.0); HEMATOCRIT 33.5 % (35.4-49); HEMOGLOBIN 10.9 GM/dL (11.7-16.9); MCH 23.5 pg (25.7-33.7); MCHC 32.5 g/dl (32.0-35.9); MEAN CELL VOLUME 72.3 fl (80-96); MEAN PLT VOLUME 8.3 fl (7.5-11.1); PLATELET COUNT 319 10^3/uL (134-434); RBC 4.63 M/mm3 (4.00-5.60); WHITE BLOOD COUNT 27.6 K/mm3 (4.0-10.0)
[2021-02-08 07:40] LABS: CREATININE 0.7 mg/dL (0.55-1.3)
[2021-02-08 07:41] LABS: BILIRUBIN,TOTAL 0.5 mg/dL (0.2-1)
[2021-02-08 07:42] LABS: TOT PROT 6.6 g/dl (6.4-8.2)
[2021-02-08] MEDS ORDERED: ACETAMINOPHEN 325 MG TABLET (FP) ONE (08:08)
[2021-02-08] MEDS ORDERED: ALBUTEROL SO4 2.5/IPRATROPIUM 0.5 INH SOL 3 ML VIAL.NEB. NEB ONE ×2 (08:08→15:22)
[2021-02-08] MEDS ORDERED: ONDANSETRON 4 MG/2 ML VIAL ONE (08:09)
[2021-02-08] MEDS ORDERED: methaDONE HCL 10 MG TABLET PO ONE ×2 (09:09→09:27)
[2021-02-08] MEDS ORDERED: CEFTRIAXONE 1 GM/50 ML BAG ONE (09:40)
[2021-02-08] MEDS ORDERED: ENOXAPARIN NA (PORCINE) 40 MG/0.4 ML DISP.SYRIN SQ ONE (09:40)
[2021-02-08] MEDS ORDERED: methaDONE HCL 10 MG TABLET ONE (09:40)
[2021-02-08] MEDS: ENOXAPARIN NA (PORCINE) 40 MG/0.4 ML DISP.SYRIN SQ SCH (09:54)
[2021-02-08] MEDS: CEFTRIAXONE 1 GM in DEXTROSE 5%-WATER - 50 ML IVPB SCH (09:55)
[2021-02-08] MEDS: AZITHROMYCIN IVPB 250 MG in DEXTROSE 5%-WATER - 250 ML IVPB SCH (10:12)
[2021-02-08 10:44] LABS: ANISOCYTOSIS 0; MACROCYTOSIS 0; PLATELET ESTIMATE NORMAL
[2021-02-08] MEDS: ALBUTEROL SO4 2.5/IPRATROPIUM 0.5 INH SOL 3 ML VIAL.NEB. NEB SCH ×2 (15:26→21:53)
[2021-02-08] MEDS ORDERED: ZOLPIDEM TARTRATE 5 MG TABLET PO ONE (20:53)
[2021-02-09] MEDS: methylPREDNISolone NA SUCC 40 MG/1 ML VIAL IVPUSH SCH ×3 (01:04→18:11)
[2021-02-09] MEDS: ALBUTEROL SO4 2.5/IPRATROPIUM 0.5 INH SOL 3 ML VIAL.NEB. NEB SCH ×4 (08:12→19:39)
[2021-02-09 08:55] LABS: BASO % 0.3 % (0-2.0); HEMATOCRIT 30.5 % (35.4-49); HEMOGLOBIN 9.9 GM/dL (11.7-16.9); LYMPH % 4.6 % (8-40); MCH 23.3 pg (25.7-33.7); MCHC 32.4 g/dl (32.0-35.9); MEAN CELL VOLUME 71.9 fl (80-96); MEAN PLT VOLUME 7.9 fl (7.5-11.1); MONO % 4.2 % (3.8-10.2); NEUT % 90.9 % (42.8-82.8); PLATELET COUNT 348 10^3/uL (134-434); RBC 4.25 M/mm3 (4.00-5.60); RDW 19.7 % (11.9-15.9); WHITE BLOOD COUNT 13.9 K/mm3 (4.0-10.0)
[2021-02-09 09:21] LABS: CALCIUM 9.2 mg/dL (8.5-10.1)
[2021-02-09 09:22] LABS: BLOOD UREA NITROGEN 33.9 mg/dL (7-18)
[2021-02-09 09:25] LABS: CREATININE 0.7 mg/dL (0.55-1.3)
[2021-02-09 09:27] LABS: BILIRUBIN,TOTAL 0.2 mg/dL (0.2-1); TOT PROT 6.3 g/dl (6.4-8.2)
[2021-02-09] MEDS ORDERED: methaDONE HCL 10 MG TABLET PO ONE (11:24)
[2021-02-09] MEDS ORDERED: DEXTROSE 5%-WATER - 50 ML IVPB ONE (11:24)
[2021-02-09] MEDS ORDERED: cefTRIAXone SODIUM 1 GM VIAL ONE (11:24)
[2021-02-09] MEDS: CEFTRIAXONE 1 GM in DEXTROSE 5%-WATER - 50 ML IVPB SCH (11:51)
[2021-02-09] MEDS: ENOXAPARIN NA (PORCINE) 40 MG/0.4 ML DISP.SYRIN SQ SCH (11:55)
[2021-02-09] MEDS: AZITHROMYCIN IVPB 250 MG in DEXTROSE 5%-WATER - 250 ML IVPB SCH (12:43)
[2021-02-09] MEDS ORDERED: ALPRAZolam 0.25 MG TABLET PO ONE (16:30)
[2021-02-09] MEDS ORDERED: ZOLPIDEM TARTRATE 5 MG TABLET PO ONE (22:45)
[2021-02-10] MEDS: methylPREDNISolone NA SUCC 40 MG/1 ML VIAL IVPUSH SCH ×3 (02:29→18:09)
[2021-02-10] MEDS: cloNIDine HCL 0.1 MG TABLET PO PRN ×3 (06:18→18:36)
[2021-02-10] MEDS: ALBUTEROL SO4 2.5/IPRATROPIUM 0.5 INH SOL 3 ML VIAL.NEB. NEB SCH ×4 (07:56→20:39)
[2021-02-10 09:08] LABS: HEMATOCRIT 31.4 % (35.4-49); HEMOGLOBIN 10.5 GM/dL (11.7-16.9); MCH 24.1 pg (25.7-33.7); MCHC 33.4 g/dl (32.0-35.9); MEAN CELL VOLUME 72.2 fl (80-96); MEAN PLT VOLUME 8.1 fl (7.5-11.1); PLATELET COUNT 396 10^3/uL (134-434); RBC 4.35 M/mm3 (4.00-5.60); RDW 19.9 % (11.9-15.9); WHITE BLOOD COUNT 9.4 K/mm3 (4.0-10.0)
[2021-02-10] MEDS ORDERED: cefTRIAXone SODIUM 1 GM VIAL ONE (09:09)
[2021-02-10] MEDS ORDERED: DEXTROSE 5%-WATER - 50 ML IVPB ONE (09:09)
[2021-02-10] MEDS: ENOXAPARIN NA (PORCINE) 40 MG/0.4 ML DISP.SYRIN SQ SCH (09:17)
[2021-02-10] MEDS: CEFTRIAXONE 1 GM in DEXTROSE 5%-WATER - 50 ML IVPB SCH (09:18)
[2021-02-10 09:57] LABS: ALBUMIN 2.2 g/dl (3.4-5.0); BLOOD UREA NITROGEN 31.9 mg/dL (7-18); CALCIUM 8.9 mg/dL (8.5-10.1)
[2021-02-10] MEDS ORDERED: methaDONE HCL 10 MG TABLET PO ONE (10:00)
[2021-02-10 10:01] LABS: CREATININE 0.7 mg/dL (0.55-1.3)
[2021-02-10 10:02] LABS: BILIRUBIN,TOTAL 0.2 mg/dL (0.2-1); TOT PROT 6.3 g/dl (6.4-8.2)
[2021-02-10] MEDS: AZITHROMYCIN IVPB 250 MG in DEXTROSE 5%-WATER - 250 ML IVPB SCH (10:07)
[2021-02-10 10:44] LABS: ANISOCYTOSIS 1+; MACROCYTOSIS 0; PLATELET ESTIMATE NORMAL
[2021-02-10] MEDS ORDERED: ZOLPIDEM TARTRATE 5 MG TABLET PO ONE (21:15)
[2021-02-11] MEDS: methylPREDNISolone NA SUCC 40 MG/1 ML VIAL IVPUSH SCH ×3 (02:19→17:01)
[2021-02-11] MEDS: cloNIDine HCL 0.1 MG TABLET PO PRN ×3 (02:19→20:32)
[2021-02-11] MEDS: ALBUTEROL SO4 2.5/IPRATROPIUM 0.5 INH SOL 3 ML VIAL.NEB. NEB SCH ×4 (08:41→20:53)
[2021-02-11] MEDS ORDERED: methaDONE HCL 10 MG TABLET ONE (08:46)
[2021-02-11] MEDS ORDERED: cefTRIAXone SODIUM 1 GM VIAL ONE (08:47)
[2021-02-11] MEDS ORDERED: DEXTROSE 5%-WATER - 50 ML IVPB ONE (08:47)
[2021-02-11] MEDS: ENOXAPARIN NA (PORCINE) 40 MG/0.4 ML DISP.SYRIN SQ SCH (09:12)
[2021-02-11] MEDS: CEFTRIAXONE 1 GM in DEXTROSE 5%-WATER - 50 ML IVPB SCH (09:13)
[2021-02-11] MEDS: AZITHROMYCIN IVPB 250 MG in DEXTROSE 5%-WATER - 250 ML IVPB SCH (10:02)
[2021-02-11] MEDS: MELATONIN 5 MG TABLETS PO SCH (22:18)
[2021-02-12] MEDS: methylPREDNISolone NA SUCC 40 MG/1 ML VIAL IVPUSH SCH ×3 (01:57→18:24)
[2021-02-12] MEDS: ALBUTEROL SO4 2.5/IPRATROPIUM 0.5 INH SOL 3 ML VIAL.NEB. NEB SCH ×4 (08:35→20:02)
[2021-02-12] MEDS ORDERED: cefTRIAXone SODIUM 1 GM VIAL ONE (09:32)
[2021-02-12] MEDS ORDERED: DEXTROSE 5%-WATER - 50 ML IVPB ONE (09:32)
[2021-02-12] MEDS: CEFTRIAXONE 1 GM in DEXTROSE 5%-WATER - 50 ML IVPB SCH (09:42)
[2021-02-12] MEDS: ENOXAPARIN NA (PORCINE) 40 MG/0.4 ML DISP.SYRIN SQ SCH (09:43)
[2021-02-12] MEDS ORDERED: methaDONE HCL 10 MG TABLET PO ONE (10:00)
[2021-02-12] MEDS: AZITHROMYCIN IVPB 250 MG in DEXTROSE 5%-WATER - 250 ML IVPB SCH (10:23)
[2021-02-12] MEDS: cloNIDine HCL 0.1 MG TABLET PO PRN ×2 (15:05→21:14)
[2021-02-12] MEDS ORDERED: PT OWN MED DRAWER 7, Y5N ONE (18:18)
[2021-02-12] MEDS ORDERED: INSULIN SLIDING SCALE (NOVOLOG) 1 VIAL SQ ONE (18:18)
[2021-02-12] MEDS: MELATONIN 5 MG TABLETS PO SCH (21:14)
[2021-02-13] MEDS: methylPREDNISolone NA SUCC 40 MG/1 ML VIAL IVPUSH SCH ×3 (02:08→21:50)
[2021-02-13] MEDS: cloNIDine HCL 0.1 MG TABLET PO PRN ×2 (05:52→11:20)
[2021-02-13] MEDS: ALBUTEROL SO4 2.5/IPRATROPIUM 0.5 INH SOL 3 ML VIAL.NEB. NEB SCH ×4 (08:00→20:52)
[2021-02-13] MEDS ORDERED: methaDONE HCL 10 MG TABLET ONE (09:11)
[2021-02-13] MEDS ORDERED: DEXTROSE 5%-WATER - 50 ML IVPB ONE (09:11)
[2021-02-13] MEDS ORDERED: cefTRIAXone SODIUM 1 GM VIAL ONE (09:11)
[2021-02-13] MEDS: ENOXAPARIN NA (PORCINE) 40 MG/0.4 ML DISP.SYRIN SQ SCH (11:18)
[2021-02-13] MEDS: CEFTRIAXONE 1 GM in DEXTROSE 5%-WATER - 50 ML IVPB SCH (11:19)
[2021-02-13] MEDS: AZITHROMYCIN IVPB 250 MG in DEXTROSE 5%-WATER - 250 ML IVPB SCH (11:26)
[2021-02-13 11:56] LABS: HEMATOCRIT 35.5 % (35.4-49); HEMOGLOBIN 11.7 GM/dL (11.7-16.9); MCH 23.4 pg (25.7-33.7); MCHC 32.8 g/dl (32.0-35.9); MEAN CELL VOLUME 71.4 fl (80-96); MEAN PLT VOLUME 7.4 fl (7.5-11.1); PLATELET COUNT 533 10^3/uL (134-434); RBC 4.97 M/mm3 (4.00-5.60); RDW 19.6 % (11.9-15.9); WHITE BLOOD COUNT 16.3 K/mm3 (4.0-10.0)
[2021-02-13 12:11] LABS: ALBUMIN 2.5 g/dl (3.4-5.0); BLOOD UREA NITROGEN 29.9 mg/dL (7-18); CALCIUM 8.9 mg/dL (8.5-10.1)
[2021-02-13 12:15] LABS: BILIRUBIN,TOTAL 0.2 mg/dL (0.2-1); CREATININE 0.7 mg/dL (0.55-1.3)
[2021-02-13 12:16] LABS: TOT PROT 6.5 g/dl (6.4-8.2)
[2021-02-13 13:44] VITALS: BMI 21.7
[2021-02-13 13:44] LABS: ANISOCYTOSIS 1+; MACROCYTOSIS 0; PLATELET ESTIMATE INCREASED
[2021-02-13] MEDS: MELATONIN 5 MG TABLETS PO SCH (21:50)
[2021-02-14] MEDS: ALBUTEROL SO4 2.5/IPRATROPIUM 0.5 INH SOL 3 ML VIAL.NEB. NEB SCH ×4 (07:48→20:02)
[2021-02-14] MEDS ORDERED: cefTRIAXone SODIUM 1 GM VIAL ONE (09:11)
[2021-02-14] MEDS ORDERED: DEXTROSE 5%-WATER - 50 ML IVPB ONE (09:11)
[2021-02-14] MEDS: cloNIDine HCL 0.1 MG TABLET PO PRN ×3 (09:19→21:28)
[2021-02-14] MEDS: CEFTRIAXONE 1 GM in DEXTROSE 5%-WATER - 50 ML IVPB SCH (09:20)
[2021-02-14] MEDS: ENOXAPARIN NA (PORCINE) 40 MG/0.4 ML DISP.SYRIN SQ SCH (09:20)
[2021-02-14] MEDS: methylPREDNISolone NA SUCC 40 MG/1 ML VIAL IVPUSH SCH ×2 (09:20→21:27)
[2021-02-14] MEDS ORDERED: methaDONE HCL 10 MG TABLET PO ONE (10:00)
[2021-02-14 10:24] LABS: HEMATOCRIT 39.1 % (35.4-49); HEMOGLOBIN 12.5 GM/dL (11.7-16.9); MCH 23.3 pg (25.7-33.7); MCHC 31.9 g/dl (32.0-35.9); MEAN CELL VOLUME 73.1 fl (80-96); MEAN PLT VOLUME 7.7 fl (7.5-11.1); PLATELET COUNT 628 10^3/uL (134-434); RBC 5.35 M/mm3 (4.00-5.60); RDW 19.9 % (11.9-15.9)
[2021-02-14 10:44] LABS: ALBUMIN 2.7 g/dl (3.4-5.0); BLOOD UREA NITROGEN 33.6 mg/dL (7-18)
[2021-02-14 10:46] LABS: BILIRUBIN,TOTAL 0.3 mg/dL (0.2-1); TOT PROT 6.7 g/dl (6.4-8.2)
[2021-02-14 10:48] LABS: CREATININE 0.7 mg/dL (0.55-1.3)
[2021-02-14 11:26] LABS: ANISOCYTOSIS 0; MACROCYTOSIS 0; PLATELET ESTIMATE INCREASED
[2021-02-14] MEDS: MELATONIN 5 MG TABLETS PO SCH (21:27)
[2021-02-15] MEDS: cloNIDine HCL 0.1 MG TABLET PO PRN ×2 (04:38→11:11)
[2021-02-15] MEDS: ALBUTEROL SO4 2.5/IPRATROPIUM 0.5 INH SOL 3 ML VIAL.NEB. NEB SCH ×4 (08:56→20:12)
[2021-02-15] MEDS: methylPREDNISolone NA SUCC 40 MG/1 ML VIAL IVPUSH SCH (11:11)
[2021-02-15] MEDS: MELATONIN 5 MG TABLETS PO SCH (22:00)
[2021-02-16] MEDS ORDERED: AMOX TR/POT CLAV 875MG/125MG TABLETS (FP) PO SCH (08:00)
[2021-02-16] MEDS: ALBUTEROL SO4 2.5/IPRATROPIUM 0.5 INH SOL 3 ML VIAL.NEB. NEB SCH ×3 (08:39→15:39)
[2021-02-16] MEDS ORDERED: predniSONE 20 MG TABLET (UD) PO SCH (10:00)
[2021-02-16 15:17] VITALS: BP 114/79; PULSE 98; TEMP 97.7
== END 2021-02-16 16:35 | disposition home or self-care (01) | DRG 139 ==
LOC: JER 13:08 → JERBED 18:04 → J5S 02-08 20:10
PROVIDERS: ADMIT Internal Medicine; ATTEND Internal Medicine
PROC: HZ2ZZZZ Detoxification Services for Substance Abuse Treatment (ICD-10-PCS; principal; 2021-02-09)
DX: J13 Pneumonia due to Streptococcus pneumoniae (principal); J44.0 Chronic obstructive pulmonary disease with (acute) lower respiratory infection; J44.1 Chronic obstructive pulmonary disease with (acute) exacerbation; G47.30 Sleep apnea, unspecified; F11.23 Opioid dependence with withdrawal; F14.10 Cocaine abuse, uncomplicated; F17.200 Nicotine dependence, unspecified, uncomplicated; I10 Essential (primary) hypertension; E78.5 Hyperlipidemia, unspecified; E11.9 Type 2 diabetes mellitus without complications; F19.94 Other psychoactive substance use, unspecified with psychoactive substance-induced mood disorder; F10.230 Alcohol dependence with withdrawal, uncomplicated
CPT/HCPCS: 36415; 71046-TC-FY; 80053; 82550; 83605; 84484; 85025; 87040; 87899; 93005; 93010; 94640; 99285-25; C9803; J0735; J1100; U0003; U0005

== ENCOUNTER 2021-04-11 00:33 | Emergency (ER) | payer OTHER ==
[2021-04-11 02:06] VITALS: BP 126/70; PULSE 100; TEMP 97.8; BMI 25.0
[2021-04-11] MEDS ORDERED: DEXAMETHASONE 4 MG TABLET (FP) PO ONE (03:31)
[2021-04-11] MEDS ORDERED: ALBUTEROL SO4 2.5/IPRATROPIUM 0.5 INH SOL 3 ML VIAL.NEB. NEB ONE (04:18)
[2021-04-11] MEDS ORDERED: DEXAMETHASONE 4 MG TABLET (FP) ONE (04:18)
[2021-04-11] MEDS: ALBUTEROL SO4 2.5/IPRATROPIUM 0.5 INH SOL 3 ML VIAL.NEB. NEB SCH (04:27)
== END 2021-04-11 04:52 | disposition home or self-care (01) ==
LOC: JER 00:33
PROC: 3E0F7GC Introduction of Other Therapeutic Substance into Respiratory Tract, Via Natural or Artificial Opening (ICD-10-PCS; principal; 2021-04-11)
DX: J45.21 Mild intermittent asthma with (acute) exacerbation (principal)
CPT/HCPCS: 71046-TC-FY; 99283-25

== ENCOUNTER 2021-04-12 15:51 | Inpatient (IN) | payer OTHER ==
[2021-04-12 18:16] VITALS: BMI 25.8
[2021-04-12] MEDS ORDERED: ONDANSETRON *ODT* 4 MG TABLET SL PRN (19:00)
[2021-04-12] MEDS ORDERED: MAG HYDROX/AL HYDROX/SIMETH 30 ML UNIT-DOSE CUP PO PRN (19:00)
[2021-04-12] MEDS ORDERED: NALOXONE HCL 0.4 MG/ML VIAL IM PRN (19:00)
[2021-04-12] MEDS ORDERED: NALOXONE (NARCAN) HCL 4 MG/0.1 ML SPRAY NS PRN (19:00)
[2021-04-12] MEDS ORDERED: DICYCLOMINE HCL 10 MG CAPSULE PO PRN (19:00)
[2021-04-12] MEDS ORDERED: NICOTINE POLACRILEX 2 MG GUM BUC PRN (19:00)
[2021-04-12] MEDS ORDERED: IBUPROFEN 400 MG TABLET (FP) PO PRN (19:00)
[2021-04-12] MEDS ORDERED: P-EPHED 60MG/TRIPROLIDI 2.5MG TABLET PO PRN (19:00)
[2021-04-12] MEDS ORDERED: MENTHOL/PHENOL 1 EACH UD MM PRN (19:00)
[2021-04-12] MEDS ORDERED: BISMUTH SUBSALICYLATE 524 MG/30 ML PO PRN (19:00)
[2021-04-12] MEDS ORDERED: ALBUTEROL SO4 HFA INHALER IH PRN (19:00)
[2021-04-12] MEDS ORDERED: guaiFENesin 200 MG/10 ML 10 ML UNIT-DOSE CUPS PO PRN (19:00)
[2021-04-12] MEDS ORDERED: MAGNESIUM CITRATE 300 ML BOTTLE PO PRN (19:00)
[2021-04-12] MEDS ORDERED: ACETAMINOPHEN 325 MG TABLET (FP) PO PRN ×2 (19:00)
[2021-04-12] MEDS ORDERED: MAGNESIUM HYDROX 2400MG/30ML ORAL SUSPENSION 30 ML CUP PO PRN (19:00)
[2021-04-12] MEDS: hydrOXYzine PAMOATE 25 MG CAPSULE (FP) PO PRN (22:01)
[2021-04-12] MEDS: predniSONE 20 MG TABLET (UD) PO SCH (22:01)
[2021-04-12] MEDS: THIAMINE HCL 100 MG TABLET (FP) PO SCH (22:01)
[2021-04-12] MEDS: MELATONIN 5 MG TABLETS PO SCH (22:49)
[2021-04-12] MEDS: BUDESONIDE/FORMETEROL FUMARATE 160/4.5 mcg INHALER IH SCH (22:49)
[2021-04-13] MEDS ORDERED: ALBUTEROL SO4 0.083% IH SOL 2.5 MG/3 ML VIAL.NEB. NEB PRN (09:45)
[2021-04-13] MEDS ORDERED: methaDONE HCL 10 MG TABLET (FOR DETOX USE ONLY) PO ONE (10:00)
[2021-04-13] MEDS ORDERED: ONDANSETRON *ODT* 4 MG TABLET SL ONE (10:00)
[2021-04-13] MEDS: hydrOXYzine PAMOATE 25 MG CAPSULE (FP) PO PRN (10:42)
[2021-04-13] MEDS: PRENATAL VITAMINS W/ FOLIC ACID TABLET (FP) PO SCH (10:42)
[2021-04-13] MEDS: predniSONE 20 MG TABLET (UD) PO SCH (10:42)
[2021-04-13] MEDS: METHOCARBAMOL 500 MG TABLET PO PRN (10:42)
[2021-04-13 10:47] LABS: HEMATOCRIT 32.3 % (35.4-49); HEMOGLOBIN 10.8 GM/dL (11.7-16.9); MCH 25.7 pg (25.7-33.7); MCHC 33.6 g/dl (32.0-35.9); MEAN CELL VOLUME 76.6 fl (80-96); MEAN PLT VOLUME 7.3 fl (7.5-11.1); PLATELET COUNT 417 10^3/uL (134-434); RBC 4.22 M/mm3 (4.00-5.60); RDW 17.9 % (11.9-15.9); WHITE BLOOD COUNT 6.6 K/mm3 (4.0-10.0)
[2021-04-13] MEDS: NICOTINE 21 MG/24 HOURS TOPICAL PATCH TD SCH (10:49)
[2021-04-13] MEDS: BUDESONIDE/FORMETEROL FUMARATE 160/4.5 mcg INHALER IH SCH ×2 (10:51→23:37)
[2021-04-13 10:58] LABS: CALCIUM 8.9 mg/dL (8.5-10.1)
[2021-04-13 10:59] LABS: ALBUMIN 2.6 g/dl (3.4-5.0); BLOOD UREA NITROGEN 16.4 mg/dL (7-18)
[2021-04-13 11:01] LABS: CREATININE 0.7 mg/dL (0.55-1.3)
[2021-04-13 11:03] LABS: BILIRUBIN,TOTAL 0.2 mg/dL (0.2-1); TOT PROT 6.5 g/dl (6.4-8.2)
[2021-04-13] MEDS: MELATONIN 5 MG TABLETS PO SCH (23:37)
[2021-04-13] MEDS: THIAMINE HCL 100 MG TABLET (FP) PO SCH (23:38)
[2021-04-14] MEDS ORDERED: methaDONE HCL 10 MG TABLET (FOR DETOX USE ONLY) ONE (09:21)
[2021-04-14] MEDS: predniSONE 20 MG TABLET (UD) PO SCH (09:40)
[2021-04-14] MEDS: PRENATAL VITAMINS W/ FOLIC ACID TABLET (FP) PO SCH (09:41)
[2021-04-14] MEDS: NICOTINE 21 MG/24 HOURS TOPICAL PATCH TD SCH (09:46)
[2021-04-14] MEDS: BUDESONIDE/FORMETEROL FUMARATE 160/4.5 mcg INHALER IH SCH ×2 (09:46→23:22)
[2021-04-14] MEDS: cloNIDine HCL 0.1 MG TABLET PO PRN (16:03)
[2021-04-14] MEDS: hydrOXYzine PAMOATE 25 MG CAPSULE (FP) PO PRN (16:03)
[2021-04-14] MEDS: MELATONIN 5 MG TABLETS PO SCH (23:21)
[2021-04-14] MEDS: THIAMINE HCL 100 MG TABLET (FP) PO SCH (23:21)
[2021-04-15] MEDS: PRENATAL VITAMINS W/ FOLIC ACID TABLET (FP) PO SCH (09:53)
[2021-04-15] MEDS: hydrOXYzine PAMOATE 25 MG CAPSULE (FP) PO PRN ×4 (09:53→23:02)
[2021-04-15] MEDS: predniSONE 20 MG TABLET (UD) PO SCH (09:53)
[2021-04-15] MEDS: NICOTINE 21 MG/24 HOURS TOPICAL PATCH TD SCH ×2 (09:53→10:54)
[2021-04-15] MEDS: cloNIDine HCL 0.1 MG TABLET PO PRN ×2 (09:53→15:18)
[2021-04-15] MEDS ORDERED: methaDONE HCL 10 MG TABLET (FOR DETOX USE ONLY) PO ONE (10:00)
[2021-04-15] MEDS: BUDESONIDE/FORMETEROL FUMARATE 160/4.5 mcg INHALER IH SCH ×2 (10:52→23:08)
[2021-04-15] MEDS: METHOCARBAMOL 500 MG TABLET PO PRN (15:18)
[2021-04-15] MEDS: MELATONIN 5 MG TABLETS PO SCH (23:02)
[2021-04-15] MEDS: THIAMINE HCL 100 MG TABLET (FP) PO SCH (23:02)
[2021-04-16] MEDS ORDERED: methaDONE HCL 10 MG TABLET (FOR DETOX USE ONLY) ONE (09:39)
[2021-04-16] MEDS: PRENATAL VITAMINS W/ FOLIC ACID TABLET (FP) PO SCH (10:28)
[2021-04-16] MEDS: METHOCARBAMOL 500 MG TABLET PO PRN (10:28)
[2021-04-16] MEDS: predniSONE 20 MG TABLET (UD) PO SCH (10:28)
[2021-04-16] MEDS: BUDESONIDE/FORMETEROL FUMARATE 160/4.5 mcg INHALER IH SCH (10:29)
[2021-04-16] MEDS: NICOTINE 21 MG/24 HOURS TOPICAL PATCH TD SCH (10:29)
[2021-04-16] MEDS: hydrOXYzine PAMOATE 25 MG CAPSULE (FP) PO PRN ×4 (10:44→23:39)
[2021-04-16] MEDS: THIAMINE HCL 100 MG TABLET (FP) PO SCH (23:39)
[2021-04-16] MEDS: MELATONIN 5 MG TABLETS PO SCH (23:39)
[2021-04-17] MEDS: BUDESONIDE/FORMETEROL FUMARATE 160/4.5 mcg INHALER IH SCH ×2 (00:48→09:37)
[2021-04-17] MEDS ORDERED: NICOTINE 10 MG CARTRIDGE (INHALER) IH PRN (09:29)
[2021-04-17] MEDS: predniSONE 20 MG TABLET (UD) PO SCH (09:37)
[2021-04-17] MEDS: PRENATAL VITAMINS W/ FOLIC ACID TABLET (FP) PO SCH (09:37)
[2021-04-17] MEDS: METHOCARBAMOL 500 MG TABLET PO PRN (09:37)
[2021-04-17] MEDS: hydrOXYzine PAMOATE 25 MG CAPSULE (FP) PO PRN ×2 (09:37→13:20)
[2021-04-17] MEDS: NICOTINE 21 MG/24 HOURS TOPICAL PATCH TD SCH (09:40)
[2021-04-17] MEDS ORDERED: methaDONE HCL 10 MG TABLET (FOR DETOX USE ONLY) PO ONE (10:00)
[2021-04-17 13:17] VITALS: PULSE 102; TEMP 98.1
[2021-04-17 13:38] VITALS: BP 130/77
== END 2021-04-17 14:38 | disposition home or self-care (01) | DRG 773 ==
LOC: YASAS 15:51 → Y6N 20:16
PROVIDERS: ADMIT Allergy & Immunology; ATTEND Allergy & Immunology
PROC: HZ2ZZZZ Detoxification Services for Substance Abuse Treatment (ICD-10-PCS; principal; 2021-04-12)
DX: F11.23 Opioid dependence with withdrawal (principal); F14.20 Cocaine dependence, uncomplicated; F17.210 Nicotine dependence, cigarettes, uncomplicated; F19.24 Other psychoactive substance dependence with psychoactive substance-induced mood disorder; J45.21 Mild intermittent asthma with (acute) exacerbation; J44.9 Chronic obstructive pulmonary disease, unspecified; I10 Essential (primary) hypertension; Z20.822 Contact with and (suspected) exposure to COVID-19; Z91.14 Patient's other noncompliance with medication regimen
CPT/HCPCS: 36415; 71046-TC-FY; 80053; 82962; 85027; 86780; C9803; J0735; Q0162; U0003; U0005

== ENCOUNTER 2021-05-12 03:55 | Emergency (ER) | payer OTHER ==
[2021-05-12 04:11] VITALS: BP 135/91; PULSE 98; TEMP 97.5; BMI 26.6
== END 2021-05-12 05:26 | disposition home or self-care (01) ==
LOC: JER 03:55
DX: L03.032 Cellulitis of left toe (principal)
CPT/HCPCS: 73660-TC-LT-FY; 99283-25